=== PATIENT | female | born 1965 | race Caucasian/White ===

== ENCOUNTER 2017-06-03 17:30 | Outpatient (RCR) | payer MEDICARE, SELFPAY ==
--- NOTE | 2017-05-01 14:53 | HP.PTEVAL ---
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 Date of Evaluation: 04/30/17 Physical Therapist: Ron Sarmiento - Visit Plan Frequency: 2x /Week Duration: 4 Weeks Plan: Start with TA activation in neutral spine, lossings traction, modalities as needed. Progress to dynamic strengthening as tolerated. - Subjective Subjective: Pt. 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 Pt. 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 Pt. had a disectomy then and ~4-5years ago she was told she needed to have a fusion at the same region, but declined at that time. Pt. reports having gradual increase in symptoms over the past 10 years and has been recieving pain management to help. pt. reports relief with use of narco. She has also been recieving injections and is getting a nerve ablasion in the next 1-2 weeks. Pt. does have radiating pain down her L leg to her foot at times, but mostly she has lumbar/sacral pain and into her gluteals. Increases pain: walking, standing, lifting, bending fwrd. Pt. has slight decrease in symptoms with sitting, and lying in prone (frog positon). Pt. denies changes in B/B. She does get injections with decent reduction in symptoms. Pt. does take medications which does help with reduction in symptoms. Pt. does have increased difficulty sleeping, but is tolerable. No recent MRI taken. Pt. is hopeful to reduce symptoms in order to get back to all recreational activites without issues. - Pain lumbar spine Pain Intensity (Out of 10): 7 Pain Intensity Range: 9 bilateral gluteal ranges Pain Intensity (Out of 10): 7 Pain Intensity Range: 9 - Objective POSTURE: Pt is over wt. Pt. had slight flexed posture in stance. Pt. has equal iliac crest heights. Pt. has reduced lumbar lordosis. PALPATION: PT. has increased pain to palpation of bilateral lumbar erector spinea. pt. has increased pain at bilateral SI joints. Pt. has mild increase NW with palpation of bilateral gluteal regions. NEUROLOGICAL: Pt. has normal sensation to light and sharp touch bilateral LEs. Pt. has 2+ achilles and patellar DTR bilaterally. Pt. is able to rise on heels and toes with out visible weakness, but require balance assistance to complete. ROM: LUMBAR SPINE: flexion mod loss increase NW, ext min/mod loss increase NW, SB R mod loss increase NW, SB L min loss NE, rotation L min loss NE, rotation R min loss NE. Pt. has decreased oerall hip ROM, but no increase in symptoms. MMT: RLE- ankle 5/5 throughout; knee- ext 4+/5, flexion 4/5; hip- flexon 4/5 increase NW, abd 4/5 NE, ext 4/5 increase NW. LLE- ankle 4/5 throughout; knee- ext 4/5 increase NW, flexion 4-/5 NE; hip- flexion 4-/5 increase NW, abd 4-/5 NE, ext 4-/5 NE. Core strength- poor. - Special Tests L/S Slump test left side: Positive L/S Slump test right side: Negative L/S Left Straight Leg Raise: Positive L/S Right Straight Leg Raise: Negative Lumbar Standing: Flexion - Mechanical Response: No effect Lumbar Standing: Flexion - Symptoms During Testing: Increases Lumbar Standing: Flexion - Symptoms After Testing: No worse Lumbar Standing: Extension - Mechanical Response: No effect Lumbar Standing: Extension - Symptoms During Testing: No effect Lumbar Standing: Extension - Symptoms After Testing: No effect Lumbar Standing: Right Side Glides - Mechanical Response: No effect Lumbar Standing: Right Side [place] - Symptoms During Testing: Increases Lumbar Standing: Right Side [place] - Symptoms After Testing: No worse Lumbar Standing: Left Side [place] - Mechanical Response: No effect Lumbar Standing: Left Side [place] - Symptoms During Testing: No effect Lumbar Standing: Left Side [place] - Symptoms After Testing: No effect Lumbar Lying: Flexion - Mechanical Response: No effect Lumbar Lying: Flexion - Symptoms During Testing: Decreases Lumbar Lying: Flexion - Symptoms After Testing: No better Lumbar Lying: Extension - Mechanical Response: No effect Lumbar Lying: Extension - Symptoms During Testing: Increases Lumbar Lying: Extension - Symptoms After Testing: No worse Lumbar Static: Slouched Sit - Mechanical Response: No effect Lumbar Static: Slouched Sit - Symptoms During Testing: Increases Lumbar Static: Slouched Sit - Symptoms After Testing: No worse Lumbar Static: Sitting Erect - Mechanical Response: No effect Lumbar Static: Sitting Erect - Symptoms During Testing: Decreases Lumbar Static: Sitting Erect - Symptoms After Testing: No better Lumbar Static:Lying Prone in Extension - Mechanical Response: No effect Lumbar Static: Lying Prone in Extension - Sx During Testing: Decreases Lumbar Static: Lying Prone in Extension - Sx After Testing: No better - Goals Goal 1:: Pt. to be I with HEP. Goal Time Frame: 4-6 Weeks Goal 2:: Pt. to have increased core strength by 1/2 grade of bilateral LEs and core strength to reduce stress applied to lumbar spine. Goal Time Frame: 4-6 Weeks Goal 3:: Pt. to have decreased pain to 0-2/10 pain with all sitting and sleeping allowing for increased quality of life. Goal Time Frame: 4-6 Weeks Goal 4:: Pt. to ambulate unlimited distances with 0-3/10 pain in lumbar spine and LLE allowing for increased tolerance to all functional mobility. Goal Time Frame: 4-6 Weeks Goal 5:: Pt. to have increased lumbar spine mobility by 25% in all directions without increase in symptoms. Goal Time Frame: 4-6 Weeks - Rehabilitation Potential Physical Therapy Diagnosis: Pt. has signs and symptoms consistent with DDD of lumbar spine with dural signs. Pt. has radiating pain down her LLE to the level of her foot at times. Pt. also reports LLE giving out on her as well. Pt. has increased pain with all stress applied to lumbar spine, reduces with light traction. Pt. would benefit from PT to reduce symptoms ulitmately getting back to light neutral spine core strengthening. Rehabilitation Potential: Fair - Anticipated Interventions Patient/Client Instruction: Educate patient on: Condition, Plan of Care, Risk Factors, Benefits of Fitness Program For the Purpose of:: To improve health and function, To foster healthy habits, To improve decision making, To facilitate caregiver knowledge, To improve self management, To improve tolerance to ADL's Therapeutic Exercise to Include: Strength training, Power training, Body mechanics, Postural training, Flexibilty training, Passive ROM, Active ROM, Dynamic Lumbar Stabilization, Bo Exercises For the Purpose of:: To decrease pain, To increase ROM, To improve nutrient delivery to tissue, To increase oxygenation perfusion, To improve muscle performance and motor function, To improve ability to perform ADL's, To increase tolerance to activity/condition/position, To improve performance and independence with ADL's, To decrease level of supervision to perform tasks, To improve ability of physical actions for home/community/work/leisure IF ES: Yes Cryotherapy (ice pack, ice massage): Yes Thermo therapy (hot pack): Yes Ultrasound (thermal/non thermal): Yes Pelvic traction supine: Yes For the Purpose of:: To decrease pain, To decrease swelling/inflammation, To increase ROM, To improve nutrient delivery to tissue, To increase oxygenation perfusion, To improve muscle performance and motor function, To improve ability to perform ADL's, To improve health of tissue, To decrease soft tissue restriction Thank you for the opportunity to evaluate your patient. For Medicare and Medicare HMO plans, please review the plan of care and approve it. It will need to be FAXED BACK to us at [phone] for Medicare purposes. Please let me know if there are questions or concerns regarding this plan of care. Physician Signature: Date:
--- NOTE | 2017-06-05 17:40 | HP.PTDCSUM_ITS ---
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 Discharge Date: 06/03/17 Please see the following information for a summary of their discharge status. - Subjective Subjective: Pt. reports that she is doing about the same. She has had some relief with ablasion, but not much relief with PT. She has HEP and is compliant. She did report going through a tough time with her family as her fiance and her broke off their 15 year relationship. Pt. reports being maybe 10 % better. - Pain lumbar spine Pain Intensity (Out of 10): 2 bilateral gluteal ranges Pain Intensity (Out of 10): 1 - Overall Improvement % Improvement: 10 - Objective Objective/Function: Pt. tolerated all exercises this date without increase in symptoms. She has progressed to standing exercises with decent tolerance. Pt. to follow up with physician later this week. Pt. seems to have hit a platuea with exercise and pain. Pt. to talk with physician about how to proceed. - Goals Goal 1:: Pt. to be I with HEP. Goal Progress: Goal Met Goal 2:: Pt. to have increased core strength by 1/2 grade of bilateral LEs and core strength to reduce stress applied to lumbar spine. Goal Progress: Progressing Goal 3:: Pt. to have decreased pain to 0-2/10 pain with all sitting and sleeping allowing for increased quality of life. Goal Progress: Not Progressing Goal 4:: Pt. to ambulate unlimited distances with 0-3/10 pain in lumbar spine and LLE allowing for increased tolerance to all functional mobility. Goal Progress: Progressing Goal 5:: Pt. to have increased lumbar spine mobility by 25% in all directions without increase in symptoms. Goal Progress: Not Progressing - Plan Plan: Pt. to be DC back to physician at this point in time. - D/C Information Discharge Comments: Pt. has made small gains with core and his strength. She continues to have increased difficulty with walking and standing, but has decreased burning in her legs. Pt. does continue to report R hip pain, but has improved since ablasion. She reports minimal change with PT at this point in time. She is independent with core strengthening exercises. She will be DC back to physician at this point in time. If there are questions or concerns regarding this patient's physical therapy, please feel free to call me at [phone]. Thank you for the referral of this patient. Sincerely, Ron Sarmiento
== END 2017-06-03 19:00 | disposition home or self-care (01) ==
LOC: PT 17:30
PROVIDERS: Family Provider Internal Medicine; PCP Internal Medicine; Visit Provider Nurse Practitioner Family
DX: M43.16 Spondylolisthesis, lumbar region (principal); M51.36 Other intervertebral disc degeneration, lumbar region
CPT/HCPCS: 97012; 97110; 97162; 97530; G8978; G8979

== ENCOUNTER 2017-10-17 14:28 | Emergency (ER) | payer MEDICARE, SELFPAY ==
[2017-10-17 14:30] VITALS: BP 132/80; PULSE 85; RESP 22; TEMP 36.8; O2SAT 98; BMI 41.1
--- NOTE | 2017-10-17 15:13 | ED.VISSUMM ---
- ER Visit Summary Date of Service: 10/17/17 Chief Complaint: Acute anxiety History of Present Illness: The patient is a 52 F hx of wpr-nniivnj-rwuvqbeve diabetes, chronic back pain and anxiety. Patient states that her anxiety has been building for last 6 months when in May she found out her boyfriend for many years was cheating on her. She denies being homicidal or suicidal. She is accompanied here by her brother. Since last night she has been very anxious, tearful and upset. They went to the counseling center today and then referred her to the ER. She absolutely does not want to be admitted to a psychiatric facility. Both her and her brother deny she is suicidal. She did take an Ativan earlier today. Physical Examination: Middle-aged female no acute distress. She is emotionally upset and tearful. Vital signs are stable on a eyebrow. H EENT exam unremarkable. Neck nontender. Lungs clear to auscultation bilaterally. Heart regular rhythm no murmur. Abdomen soft nontender. She is moving all 4 extremities. Neurovascular intact. No injuries to her extremities. Back nontender. Neurologically she is awake and alert with no focal motor deficits. No signs of toxidrome. No smell of alcohol currently. Test Results: None Emergency Department Course and Treatment: She will be treated with p.o. Geodon. And have crisis discussed with her follow-up plan. At this time I do not feel she is suicidal note I feel that she is a threat to harm herself or other people. Both her and her brother collaborate that and would like her to be able to be discharged home. Brother states he will make a plan some is with her at all times. Treatment Plan: Patient was evaluated by crisis counselor. They are in agreement that she is not acutely suicidal. And are comfortable to discharge with follow-up with a counseling center. Disposition: Discharge Impression: Acute anxiety Depression This note was generated with [employer] dictation software. It may contain incorrect words, spelling, and punctuation that were not noted in review of the chart prior to signing ED Disposition - Plan for ED Patient: Chief Complaint: Anxiety Referrals: Jericho Nieves MD [Primary Care Provider] -
--- NOTE | 2017-10-17 15:17 | ED.DCSUM_ITS ---
- ER Visit Summary Date of Service: 10/17/17 Chief Complaint: Acute anxiety History of Present Illness: The patient is a 52 F hx of ptb-swbuyyl-egszunboa diabetes, chronic back pain and anxiety. Patient states that her anxiety has been building for last 6 months when in May she found out her boyfriend for many years was cheating on her. She denies being homicidal or suicidal. She is accompanied here by her brother. Since last night she has been very anxious , tearful and upset. They went to the counseling center today and then referred her to the ER. She absolutely does not want to be admitted to a psychiatric facility. Both her and her brother deny she is suicidal. She did take an Ativan earlier today. Physical Examination: Middle-aged female no acute distress. She is emotionally upset and tearful. Vital signs are stable on a eyebrow. H EENT exam unremarkable. Neck nontender. Lungs clear to auscultation bilaterally. Heart regular rhythm no murmur. Abdomen soft nontender. She is moving all 4 extremities. Neurovascular intact. No injuries to her extremities. Back nontender. Neurologically she is awake and alert with no focal motor deficits. No signs of toxidrome. No smell of alcohol currently. Test Results: None Emergency Department Course and Treatment: She will be treated with p.o. Geodon. And have crisis discussed with her follow-up plan. At this time I do not feel she is suicidal note I feel that she is a threat to harm herself or other people. Both her and her brother collaborate that and would like her to be able to be discharged home. Brother states he will make a plan some is with her at all times. Treatment Plan: Patient was evaluated by crisis counselor. They are in agreement that she is not acutely suicidal. And are comfortable to discharge with follow-up with a counseling center. Disposition: Discharge Impression: Acute anxiety Depression This note was generated with [employer] dictation software. It may contain incorrect words, spelling, and punctuation that were not noted in review of the chart prior to signing ED Disposition - Plan for ED Patient: Chief Complaint: Anxiety Referrals: Jericho Nieves MD [Primary Care Provider] -
[2017-10-17] MEDS: Ziprasidone IM 20 MG/ML VIAL IM (15:52)
--- NOTE | 2017-10-17 17:41 | ED.RN ---
PT REQUESTED ETA OF COUNSELING CENTER STAFF FOR EVALUATION AND OUTPATIENT PLAN OF CARE. PHYSICIAN AND CRISIS COUNSELOR CONSULTED AND DR. LAST STATED THAT NO MEDICAL TREATMENT WOULD BE REQUIRED. CRISIS COUNSELOR STATES ONCOMING SHIFT WOULD BE IN TO EVALUATE PT. PT INFORMED AND CONVEYED UNDERSTANDING. DENIES FURTHER NEEDS AT THIS TIME.
--- NOTE | 2017-10-17 17:53 | NURSING ---
JIM, CRISIS, HERE FOR PATIENT
--- NOTE | 2017-10-17 19:37 | ED.DEP ---
ED Disposition - Plan for ED Patient: Disposition: Home or Assisted Living Chief Complaint: Anxiety Instructions: ED Panic Attack Prescriptions: Ziprasidone HCl [Geodon] 20 mg PO DAILY #10 cap Referrals: Counseling,Center [GROUP OF PHYSICIANS] - As soon as possible Additional Instructions: Call and follow-up with a counseling center soon as possible. Geodon 20 mg once daily as needed. Return if you are doing worse.
[2017-10-17 19:46] VITALS: BP 106/67; PULSE 64; RESP 18; O2SAT 98
== END 2017-10-17 19:47 | disposition home or self-care (01) ==
PROVIDERS: Emergency Provider Emergency Medicine; Family Provider Internal Medicine; PCP Internal Medicine
DX: F41.9 Anxiety disorder, unspecified (principal); F32.9 Major depressive disorder, single episode, unspecified; E11.9 Type 2 diabetes mellitus without complications; Z72.0 Tobacco use; G89.29 Other chronic pain; M54.9 Dorsalgia, unspecified
CPT/HCPCS: 96372; 99282; J3486

== ENCOUNTER 2017-11-08 17:49 | Emergency (ER) | payer MEDICARE, SELFPAY ==
[2017-11-08 17:51] VITALS: BP 162/84; PULSE 98; RESP 20; TEMP 36.6; O2SAT 98; BMI 40.6
--- NOTE | 2017-11-08 18:40 | RAD_ITS ---
STUDY: X-RAY CHEST REASON FOR EXAM: Female, 52 years old. Shortness breath with cough TECHNIQUE: PA and lateral views of the chest. COMPARISON: 01/12/2016 FINDINGS: The lungs are clear and expanded. There is no demonstrated pleural abnormality. Normal size heart. Normal mediastinum and anjana. Normal visualized pulmonary arteries. Normal visualized aortic arch and descending thoracic aorta. Normal visualized thoracic spine. Normal visualized ribs, clavicles, and shoulders. There is no demonstrated abnormality of the visualized soft tissue structures of the upper abdomen. RAD/Chest PA and Lateral IMPRESSION: Normal x-ray examination of the chest. Electronically Signed: Mika Saunders DO at 20:19 EDT Tel , Service support ,
--- NOTE | 2017-11-08 18:40 | EKG12_ITS ---
Test Reason : SOB Blood Pressure : / mmHG Vent. Rate : 076 BPM Atrial Rate : 076 BPM P-R Int : 158 ms QRS Dur : 076 ms QT Int : 382 ms P-R-T Axes : 040 032 046 degrees QTc Int : 429 ms Normal sinus rhythm Low voltage QRS Inferior infarct , age undetermined Abnormal ECG Confirmed by BROCK CARRANZA, AMIE ([id number]), news copy editor CLIFF BLANCO ([id number]) on 11/11/2017 2:13:47 PM Referred By: SOCORRO Confirmed By:AMIE GUTIÉRREZ MD
[2017-11-08] MEDS: MethylPREDNISolone 125 MG/2 ML Vial IV (18:53)
[2017-11-08 19:06] LABS: Absolute Lymphocyte Count 2.42 X10^3/ul (0.83-4.51); Absolute Neutrophil Count 9.8 X10^3/uL (2.0-7.7); Basophil# 0.03 X10^3/uL; Basophil% 0.2 % (0-1); Eosinophil# 0.23 X10^3/uL; Eosinophils% 1.8 % (0-5); Hematocrit 43.9 % (37-47); Hemoglobin 15.3 g/dl (12.0-15.0); Lymphocyte # 2.42 X10^3/ul (4.0); Lymphocyte % 18.7 % (19-41); Mean Corp Hgb Conc 34.9 g/gl (32-36); Mean Corpuscular Hgb 32.1 pg (27.0-32.0); Mean Corpuscular Volume 92.2 fL (81-99); Monocyte# 0.42 X10^3/uL; Monocyte% 3.2 % (0-10); Neutrophil # 9.82 X10^3/uL (2.7-7.7); Neutrophil % 75.9 % (47-70); Platelet Count 262 K/mm3 (150-450); RBC Distribution Width CV 13.1 % (11.6-14.6); RBC Distribution Width SD 43.8 fl (35.1-43.9); Red Blood Count 4.76 M/mm3 (4.2-5.4); White Blood Count 12.9 K/mm3 (4.4-11.0)
[2017-11-08 19:13] LABS: POSITIVE COUNT NO; POSITIVE DIFFERENTIAL NO; POSITIVE MORPHOLOGY NO
[2017-11-08 19:17] LABS: Anion Gap 9 (5-15); BUN 9 mg/dL (7-18); BUN/Creat Ratio 8.5 RATIO (10-20); Calcium,Total 9.2 mg/dL (8.5-10.1); Chloride 104 mmol/L (98-107); Creatinine, Serum 1.06 mg/dL (0.55-1.02); EST Glomerular Filtration Rate 58 mL/min (>60); Est Glom Filt Rate - Afr Amer 70 mL/min (>60); Estimated Creatinine Clearance 47.38 ml/min; Glucose 144 mg/dL (74-106); Potassium 3.4 mmol/L (3.5-5.1); Sodium Level 139 mmol/L (136-145)
--- NOTE | 2017-11-08 20:18 | ED.RN ---
LAB CALLED ED WITH CRITICAL LAB VALUE, LACTIC OF 2.0, DR QUINTANILLA NOTIFIED
--- NOTE | 2017-11-08 20:29 | ED.DCSUM_ITS ---
- ER Visit Summary Date of Service: 11/08/17 Chief Complaint: Cough History of Present Illness: The patient is a [address] Nieves. She reports she has a cough began a week ago. Is nonproductive. She denies any fever or chills. She has had rhinorrhea and congestion. She reports that she has moderate shortness of breath and has been wheezing. She does not have an inhaler that she uses. Physical Examination: Vitals: Stable. Afebrile. General: Well-nourished and well-developed. Head: Normocephalic atraumatic. Neck: Supple, no lymphadenopathy. No JVD. Nontender. Cardiovascular: Regular rate and rhythm. 2 out of 6 systolic murmur. Respiratory: Mild respiratory distress. Wheezing bilaterally with decreased air movement. Abdominal: Soft, nontender, nondistended, normal bowel sounds. No guarding, rebound, or peritoneal signs. Back: Nontender. Extremities: Nontender, no edema. Skin: Normal color, no rash. Neurologic: Alert and oriented ?3. Cranial nerves II through XII are intact. Normal strength and sensation. Psych: Normal affect. Test Results: EKG is sinus at 76 no acute changes. Troponins negative. Chem-7 marked potassium 3.4, creatinine 1.06, glucose 144. Chem-7 is more for white count 12.9, hemoglobin 15.3, 7 neutrophils 76, lymphocytes of 19. Lactic acid is 2.0. Chest x-ray shows no acute disease. Emergency Department Course and Treatment: Patient was treated with albuterol and Atrovent aerosols. She is given Solu-Medrol IV and is resting comfortably. Treatment Plan: Patient will be discharged with an albuterol MDI, prednisone, and doxycycline. Instructed to follow with her primary care physician in 3-5 days and not improving. Return to the emergency department for any worsening symptoms. Disposition: To home in improved and stable condition. Impression: 1. URI with bronchospasm. 2. Tobacco abuse. This note was generated with [employer] dictation software. It may contain incorrect words, spelling, and punctuation that were not noted in review of the chart prior to signing ED Disposition - Plan for ED Patient: Disposition: Home or Assisted Living Chief Complaint: Shortness of Breath Instructions: ED Upper Resp Infec Abx Tx Prescriptions: Albuterol Inhaler [Ventolin Hfa] 2 puff INHALATION Q4H PRN PRN #1 inhaler PRN Reason: Wheezing Prednisone [Deltasone] 60 mg PO DAILY #15 tablet Doxycycline Monohydrate 100 mg PO BID #20 capsule Referrals: Jericho Nieves MD [Primary Care Provider] - 3-5 Days if not improving
[2017-11-08 20:36] VITALS: PULSE 84; RESP 20; O2SAT 93
[2017-11-08] MEDS: Doxycycline 100 MG CAPSULE PO (20:56)
[2017-11-08 21:00] VITALS: PULSE 78; RESP 19; O2SAT 98
[2017-11-08 22:59] LABS: Reflex Lactate? Y
== END 2017-11-08 21:01 | disposition home or self-care (01) ==
LOC: ED 19:41
PROVIDERS: Emergency Provider Emergency Medicine; Family Provider Internal Medicine; PCP Internal Medicine
DX: J06.9 Acute upper respiratory infection, unspecified (principal); J98.01 Acute bronchospasm; R01.1 Cardiac murmur, unspecified; E11.9 Type 2 diabetes mellitus without complications; G47.33 Obstructive sleep apnea (adult) (pediatric); E78.00 Pure hypercholesterolemia, unspecified; F17.200 Nicotine dependence, unspecified, uncomplicated
CPT/HCPCS: 71046; 80048; 83605; 84484; 85025; 87040; 93005; 96361; 96374; 99284; J7040; A4216

== ENCOUNTER 2018-01-14 08:20 | Inpatient (IN) | payer MEDICARE, SELFPAY ==
[2017-12-30 14:15] VITALS: BP 120/78; PULSE 55; RESP 16; TEMP 36.4; O2SAT 97; BMI 39.2
[2017-12-30 15:12] LABS: Basophil# 0.04 X10^3/uL; Basophil% 0.5 % (0-1); Eosinophil# 0.22 X10^3/uL; Eosinophils% 2.5 % (0-5); Hematocrit 41.6 % (37-47); Hemoglobin 14.2 g/dl (12.0-15.0); Lymphocyte % 33.9 % (19-41); Mean Corp Hgb Conc 34.1 g/gl (32-36); Mean Corpuscular Hgb 31.3 pg (27.0-32.0); Mean Corpuscular Volume 91.6 fL (81-99); Mean Platelet Vol. 9.7 fl (6.2-12.0); Monocyte# 0.55 X10^3/uL; Monocyte% 6.2 % (0-10); Neutrophil # 5.03 X10^3/uL (2.7-7.7); Neutrophil % 56.8 % (47-70); POSITIVE COUNT NO; POSITIVE DIFFERENTIAL NO; POSITIVE MORPHOLOGY NO; Platelet Count 259 K/mm3 (150-450); RBC Distribution Width CV 13.2 % (11.6-14.6); RBC Distribution Width SD 43.9 fl (35.1-43.9); Red Blood Count 4.54 M/mm3 (4.2-5.4); White Blood Count 8.9 K/mm3 (4.4-11.0)
[2017-12-30 15:27] LABS: Anion Gap 8 (5-15); BUN 10 mg/dL (7-18); BUN/Creat Ratio 8.8 RATIO (10-20); Chloride 108 mmol/L (98-107); Creatinine, Serum 1.14 mg/dL (0.55-1.02); EST Glomerular Filtration Rate 53 mL/min (>60); Est Glom Filt Rate - Afr Amer 64 mL/min (>60); Estimated Creatinine Clearance 44.06 ml/min; Glucose 115 mg/dL (74-106); Potassium 3.7 mmol/L (3.5-5.1); Sodium Level 139 mmol/L (136-145)
[2017-12-30 15:33] LABS: Hemoglobin A1c 5.4 % (4.2-6.3)
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
--- NOTE | 2018-01-09 13:26 | CASEMGMT ---
Voicemail left for patient to return call regarding discharge needs after upcoming surgery. Mandy Santana LPN Clinical Support
--- NOTE | 2018-01-10 11:18 | CASEMGMT ---
Spoke to patient regarding discharge needs following upcoming surgery. Patient's plan is to return home after surgery with assistance from sister. Patient has outpatient physical therapy set up at [facility], sister will assist with transportation. Patient already has a walker, she was provided with it at pre-op appt at [facility]. Patient does not have a toilet riser or shower chair at this time. There are 3 steps into patient's home and bedroom and bathroom are on the 1st level of the home. Notified patient that RN-CM will likely see patient after surgery to follow up for any further needs. Mandy Santana LPN Clinical Support
[2018-01-14] VITALS (10 sets, daily range): BP systolic 112–168; BP diastolic 68–86; PULSE 53–71; RESP 16–20; TEMP 36.3–37.1; O2SAT 94–98; BMI 39.2
--- NOTE | 2018-01-14 07:30 | PCM.OPRPT ---
Report of Operation Date of Procedure: 01/14/18 Pre-Operative Diagnosis: Left knee primary osteoarthritis Post-Operative Diagnosis: Left knee primary osteoarthritis Surgery/Procedure Performed:: Left total knee replacement Description of Surgical Findings:: Stable knee with good patella tracking back office medical assistant: Nahid Rush Type of Anesthesia:: General Anesthesiologist: Gen Lowery Special Medications: 2 g Ancef, 1 g TXA at incision, 1 g TXA closure, 10 mg Decadron, joint cocktail (5 mg Duramorph, 30 mL of 0.5% Ropivicaine, 1000 units of epinephrine, 30 mg of Toradol) Specimen's removed: Bony cuts Estimated Blood Loss (mL): 50 Fluids Replaced: 1700 ml crystalloid Description of Procedure: Implants used: 1. [place] size 2 press-fit triathlon cruciate retaining distal femoral component 2. [place] size 2 press-fit tibial baseplate 3. [place] X3 9 mm CS polyethylene 4. Rashard X3 29 mm asymmetric patella Brief history operative indications: 52-year-old M with history of left knee osteoarthritis with radiographic findings with loss of joint space, osteophyte formation and subchondral sclerosis. Failed conservative measures as mentioned in the H&P. Discussion of total knee arthroplasty as well as risk and benefits were discussed the patient including but not limited to blood loss, DVTs, PEs, neurovascular damage, general risk of anesthesia including loss of life, and stiffness or instability were discussed with patient. Patient demonstrated understanding and was able to sign informed consent. Procedure: On the date of procedure patient's left lower extremity was marked in the preoperative area. The patient was then taken back to the operating room where the patient was placed on the table in the supine position. All bony prominences were identified a well-padded. Anesthesia assumed control of the C-spine and airway and remained controlled throughout the remainder of the procedure. A tourniquet was placed on the left upper thigh and the leg was prepped in a sterile fashion. The surgeon then scrubbed at this time .Upon reentering the room left lower extremity was draped in a standard orthopedic fashion. A timeout was then called and everyone agreed upon the side, the site, the procedure to be performed, patient's identity and antibiotics given. Esmarch bandage was used to exsanguinate the extremity and the tourniquet was placed up to 250 mmHg with the knee in flexion. A midline skin incision was made and sharp dissection was taken down through skin subcutaneous tissue and fat. The standard medial parapatellar incision was made and the patella was subluxed laterally. The standard deep MCL release was done and the fat pad was resected. Next our attention was directed to the femur. Navigation pins were placed, navigation was registered. The distal femoral cutting block was pinned into place and 10 mm of distal femur resection was completed. The distal femoral cut was verified with navigation. The knee was then placed in deep flexion in the standard [employer] sizing guide was used to place the femoral component in 3? external rotation based on the posterior condyles. A size 2 4-in-1 cutting block was selected and pinned into place. The anterior cut was then made and checked for notching. The subsequent anterior chamfer cuts, posterior condylar cuts and posterior chamfer cuts were made while ensuring the MCL and LCL were protected. Our attention was then turned to the tibia where the navigation pins were placed, navigation was registered. [employer] tibial cutting guide was used to make the appropriate tibial cut 90 degrees from the mechanical axis. Navigation was then used to verify the cut. A size 2 tibial base plate was selected. the knee was flexed to 90 degrees and the soft tissues and posterior osteophytes were removed from the joint. 40 cc of the periarticular injection was injected into the posterior medial corner of the joint. The appropriate trials were then placed on the femur and tibia. A trial polyethylene was trialed to ensure proper balancing and stability of the knee. Patella tracking, was then verified and corrected appropriately as needed. The appropriate tibial internal rotation was then marked with a bovie. Our attention was then directed to the patella. The patella was everted and a flat resection was made. The lug holes were drilled and the patella trial was placed. Patellar tracking was checked and deemed appropriate. Once we were happy lug holes were drilled for the femur and trial components were removed. the tibia was subluxed and pinned into place and the keel was punched and the canal was reamed. Final components were verified and opened, and cement was mixed in a vacuum. [place] Simplex cement was used. The wound was copiously irrigated with normal saline. When the cement was ready the components were impacted into place starting with the tibia, femur and finally the patella was cemented into place. The trial poly component was placed and the knee was placed in full extension. All excess cement was removed in the process. Once the cement had cured the tracking, alignment and balance were verified and a size 9 mm polyethylene component was placed. Once the final components were placed the wound was copiously irrigated with normal saline solution and the periarticular injection was given. The wound was closed in a layer bansal fashion using #1 vicryl interrupted sutures for the arthrotomy, 2-0 interrupted Vicryl suture for the subcuticular layer and adrianna for final skin closure. A sterile compressive dressing was then placed. The patient was then awakened from anesthesia, transferred to the [facility] and transferred to the PACU for recovery. Post op plan DVT ppx: ASA 81mg, thigh high compression stockings Follow up: in office in 2 weeks for wound check PT: to start POD #0 at hospital, outpatient PT should be arranged. My physician assistant professor surgical technology was a vital part of this case. He was important in appropriate retraction during the case, and protection of soft tissues during bony cuts. His intimate knowledge of the case and my steps aided in safe and expedient completion of the procedure as well as appropriate position of the leg during the case. He was also vital in assisting with closure under my direct supervision. Grafts/Implants Used: Rashard triathlon - Complications None - Admit VTE Documentation VTE Present on Admission: No VTE Mechan Device Prophylaxis: SCD's, Thigh High LEVON Hose VTE Pharm Prophylaxis ordered?: Yes
--- NOTE | 2018-01-14 07:33 | OP.PCM_ITS ---
Report of Operation Date of Procedure: 01/14/18 Pre-Operative Diagnosis: Left knee primary osteoarthritis Post-Operative Diagnosis: Left knee primary osteoarthritis Surgery/Procedure Performed:: Left total knee replacement Description of Surgical Findings:: Stable knee with good patella tracking marketing technology specialist: Nahid Rush Type of Anesthesia:: General Anesthesiologist: Gen Lowery Special Medications: 2 g Ancef, 1 g TXA at incision, 1 g TXA closure, 10 mg Decadron, joint cocktail (5 mg Duramorph, 30 mL of 0.5% Ropivicaine, 1000 units of epinephrine, 30 mg of Toradol) Specimen's removed: Bony cuts Estimated Blood Loss (mL): 50 Fluids Replaced: 1700 ml crystalloid Description of Procedure: Implants used: 1. [place] size 2 press-fit triathlon cruciate retaining distal femoral component 2. [place] size 2 press-fit tibial baseplate 3. [place] X3 9 mm CS polyethylene 4. Rashard X3 29 mm asymmetric patella Brief history operative indications: 52-year-old M with history of left knee osteoarthritis with radiographic findings with loss of joint space, osteophyte formation and subchondral sclerosis. Failed conservative measures as mentioned in the H&P. Discussion of total knee arthroplasty as well as risk and benefits were discussed the patient including but not limited to blood loss, DVTs, PEs, neurovascular damage , general risk of anesthesia including loss of life, and stiffness or instability were discussed with patient. Patient demonstrated understanding and was able to sign informed consent. Procedure: On the date of procedure patient's left lower extremity was marked in the preoperative area. The patient was then taken back to the operating room where the patient was placed on the table in the supine position. All bony prominences were identified a well-padded. Anesthesia assumed control of the C- spine and airway and remained controlled throughout the remainder of the procedure. A tourniquet was placed on the left upper thigh and the leg was prepped in a sterile fashion. The surgeon then scrubbed at this time .Upon reentering the room left lower extremity was draped in a standard orthopedic fashion. A timeout was then called and everyone agreed upon the side, the site, the procedure to be performed, patient's identity and antibiotics given. Esmarch bandage was used to exsanguinate the extremity and the tourniquet was placed up to 250 mmHg with the knee in flexion. A midline skin incision was made and sharp dissection was taken down through skin subcutaneous tissue and fat. The standard medial parapatellar incision was made and the patella was subluxed laterally. The standard deep MCL release was done and the fat pad was resected. Next our attention was directed to the femur. Navigation pins were placed, navigation was registered. The distal femoral cutting block was pinned into place and 10 mm of distal femur resection was completed. The distal femoral cut was verified with navigation. The knee was then placed in deep flexion in the standard [employer] sizing guide was used to place the femoral component in 3? external rotation based on the posterior condyles. A size 2 4-in-1 cutting block was selected and pinned into place. The anterior cut was then made and checked for notching. The subsequent anterior chamfer cuts, posterior condylar cuts and posterior chamfer cuts were made while ensuring the MCL and LCL were protected. Our attention was then turned to the tibia where the navigation pins were placed , navigation was registered. [employer] tibial cutting guide was used to make the appropriate tibial cut 90 degrees from the mechanical axis. Navigation was then used to verify the cut. A size 2 tibial base plate was selected. the knee was flexed to 90 degrees and the soft tissues and posterior osteophytes were removed from the joint. 40 cc of the periarticular injection was injected into the posterior medial corner of the joint. The appropriate trials were then placed on the femur and tibia. A trial polyethylene was trialed to ensure proper balancing and stability of the knee. Patella tracking, was then verified and corrected appropriately as needed. The appropriate tibial internal rotation was then marked with a bovie. Our attention was then directed to the patella. The patella was everted and a flat resection was made. The lug holes were drilled and the patella trial was placed. Patellar tracking was checked and deemed appropriate. Once we were happy lug holes were drilled for the femur and trial components were removed. the tibia was subluxed and pinned into place and the keel was punched and the canal was reamed. Final components were verified and opened, and cement was mixed in a vacuum. [place] Simplex cement was used. The wound was copiously irrigated with normal saline. When the cement was ready the components were impacted into place starting with the tibia, femur and finally the patella was cemented into place. The trial poly component was placed and the knee was placed in full extension. All excess cement was removed in the process. Once the cement had cured the tracking, alignment and balance were verified and a size 9 mm polyethylene component was placed. Once the final components were placed the wound was copiously irrigated with normal saline solution and the periarticular injection was given. The wound was closed in a layer bansal fashion using #1 vicryl interrupted sutures for the arthrotomy, 2-0 interrupted Vicryl suture for the subcuticular layer and adrianna for final skin closure. A sterile compressive dressing was then placed. The patient was then awakened from anesthesia, transferred to the [facility] and transferred to the PACU for recovery. Post op plan DVT ppx: ASA 81mg, thigh high compression stockings Follow up: in office in 2 weeks for wound check PT: to start POD #0 at hospital, outpatient PT should be arranged. My physician junior assistant manager was a vital part of this case. He was important in appropriate retraction during the case, and protection of soft tissues during bony cuts. His intimate knowledge of the case and my steps aided in safe and expedient completion of the procedure as well as appropriate position of the leg during the case. He was also vital in assisting with closure under my direct supervision. Grafts/Implants Used: [place] triathlon - Complications None - Admit VTE Documentation VTE Present on Admission: No VTE Mechan Device Prophylaxis: SCD's, Thigh High LEVON Hose VTE Pharm Prophylaxis ordered?: Yes
[2018-01-14] MEDS: Celecoxib 200 MG Capsule 400 MG PO (09:06)
[2018-01-14] MEDS: Acetaminophen 500 MG Tablet 1000 MG PO (09:06)
[2018-01-14 09:21] LABS: Bedside Glucose 110 mg/dL (70-110)
[2018-01-14] MEDS: Lactated Ringers 1,000 ML 999 ML IV (09:30)
[2018-01-14] MEDS: Scopolamine 1mg/72hr Patch 1 PATCH TD (10:25)
[2018-01-14] MEDS: Cefazolin 2 GM in 0.9% Normal Saline 100 ML IV (11:15)
--- NOTE | 2018-01-14 13:35 | RAD_ITS ---
STUDY: X-RAY - LEFT KNEE REASON FOR EXAM: Female, 52 years old. Total knee replacement. TECHNIQUE: AP and lateral view(s) of the knee. COMPARISON: Comparison is made with prior study dated May 16, 2016. FINDINGS: Normal visualized distal femur. Normal visualized proximal tibia and fibula. Normal proximal tibiofibular articulation. The patient is status post total knee replacement. There is good alignment. Postoperative soft tissue changes. RAD/Knee 1 or 2 Views IMPRESSION: Status post total knee replacement. There is good alignment. Electronically Signed: Duy Hanna MD at 13:56 EDT Tel [phone], Service support ,
[2018-01-14 14:01] LABS: Bedside Glucose 213 mg/dL (70-110)
[2018-01-14] MEDS: HYDROcodone Bitartrate/Apap 5/325 Tablet PO (14:46)
[2018-01-14] MEDS: Fluticasone 0.05% 1 SPRAY NASAL.SRY 2 SPRAY NASAL ×2 (14:50→21:56)
[2018-01-14] MEDS: Escitalopram Oxalate 20 MG Tablet PO (14:51)
[2018-01-14] MEDS: buPROPion (XL) 150 MG TABLET.XL PO (14:52)
--- NOTE | 2018-01-14 15:14 | PCM.CONS.GEN ---
Problem List (1) Osteoarthritis Status: Acute Qualifiers: Osteoarthritis location: knee Osteoarthritis type: primary Laterality: left Qualified Code(s): M17.12 - Unilateral primary osteoarthritis, left knee (2) Anxiety and depression Status: Chronic (3) Obesity (BMI 30-39.9) Status: Chronic (4) JOSE (obstructive sleep apnea) Status: Chronic (5) Psoriasis Status: Chronic (6) Brain tumor Status: Chronic (7) HLD (hyperlipidemia) Status: Acute (8) Diabetes mellitus, type II Status: Chronic Qualifiers: Diabetes mellitus mcfp insulin use: without mcfp use Diabetes mellitus complication status: with unspecified complications Qualified Code(s): E11.8 - Type 2 diabetes mellitus with unspecified complications (9) GERD (gastroesophageal reflux disease) Status: Chronic Qualifiers: Esophagitis presence: esophagitis presence not specified Qualified Code(s): K21.9 - Gastro-esophageal reflux disease without esophagitis Reason for Consult Date of Consultation: 01/14/18 Reason for Consultation: Medical consultation History of Present Illness: The patient is a 52 y/o F w/ PMHx: Tobacco use, ? PAF (s/p ablation), Anxiety and Depression, JOSE, Psoriasis, Unclear Brain Tumor History, Diabetes mellitus type II well controlled (HgbAc 12/30/17 5.4%), Chronic Back Pain, GERD, ongoing L knee pain and debility x 2 years with failed outpatient conservative therapies who presents to the [facility] on 01/14/18 for planned L TKR per Dr. Hoffman. The patient had previous L knee arthroscopy with medial meniscectomy and chondroplasty of the medial patellofemoral compartments but has had ongoing debility and pain despite this intervention 06/2016. There were no noted emily-operative events. Patient notes following transition from bed to chair recently she did have some lightheadedness and a mild headache and is requesting medication for this. Still has some numbness to the left lower extremity but sensation is returning and she is able to move the left foot. Hospitalist service consulted for medical management. Past Medical History Past Medical History (Chronic Problems): Chronic Problems Anxiety and depression (Chronic) Obesity (BMI 30-39.9) (Chronic) JOSE (obstructive sleep apnea) (Chronic) Psoriasis (Chronic) Brain tumor (Chronic) Diabetes mellitus, type II (Chronic) GERD (gastroesophageal reflux disease) (Chronic) Lumbar facet arthropathy (Chronic) Degeneration of intervertebral disc of lumbosacral region (Chronic) Lumbosacral spondylosis (Chronic) Allergies tramadol HCl [From Ultram] Allergy (Verified 01/14/18 08:48) Rash codeine Adverse Reaction (Verified 01/14/18 08:48) Vomiting hydromorphone [From Dilaudid] Adverse Reaction (Verified 01/14/18 08:48) Nausea/Vom/Diarrhea oxycodone HCl [From Percocet] Adverse Reaction (Verified 01/14/18 08:48) Vomiting Home Medications: Ambulatory Orders Medication Instructions Recorded Fluticasone 0.05% [Flonase Nasal 2 spray NASAL BID 02/14/16 [place]] Metformin HCl [Glucophage] 500 mg PO BIDCM 05/16/16 Meloxicam [Mobic] 15 mg PO DAILY 08/30/16 Pravastatin Sodium 20 mg PO QHS 08/30/16 Hydrocodone/Acetaminophen [[place] 1 each PO BID 10/08/16 5-325 Tablet] Escitalopram Oxalate [Lexapro] 20 mg PO DAILY 11/08/17 Ziprasidone HCl [Geodon] 40 mg PO BID 11/08/17 Bupropion HCl [Wellbutrin Sr] 300 mg PO DAILY 12/30/17 Lansoprazole [Prevacid] 30 mg PO DAILY 12/30/17 Zolpidem Tartrate [Ambien] 10 mg PO QHS 12/30/17 Surgical History: - - Discectomy, carpal tunnel release, left arthroscopic knee surgery with medial meniscectomy and chondroplasty of the medial patellofemoral compartments and most recent 01/14/18 L TKR. 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 Denies: Chills, Fever, Weight Change HEENT: Reports: Head Aches. Denies: Sinus Congestion, Sinus Drainage Cardiovascular: Denies: Chest Pain, Palpitations Respiratory: Denies: Cough, Shortness of breath at rest, Sputum production Gastrointestinal: Denies: Abdominal Pain, Nausea, Vomiting Genitourinary: Denies: Dysuria Musculoskeletal: Reports: Joint stiffness, Joint swelling, Joint Tenderness, Leg Pain. Denies: Joint Pain Skin: Denies: Rash, Wounds Neurological: Denies: Numbness, Tingling, Focal weakness Psychiatric: Reports: Anxiety, Depression. Denies: Homicidal Ideations, Suicidal Ideations Hematologic/ Lymphatic: Denies: Easy Bruising, Easy Bleeding Patient Problems: Active and Suspected Problems Osteoarthritis (Acute) HLD (hyperlipidemia) (Acute) Subjective: Seated upright in the bedside chair, notes ongoing mild headache currently and some lightheadedness following transition from bed to chair. Objective: Physical Examination: General: awake, alert, oriented x 3 and cooperative, seated upright in bedside chair, in no apparent distress. Skin: normal color, turgor, no icterus, cyanosis s/p left knee with dressing in place status post left total knee replacement. HEENT: AT/NC, EOMI, PERRLA, early dry MM, no carotid bruits or JVD noted. Lungs: CTA bilaterally, moderate effort, mild decrease BL bases, no rales, ronchi or wheezing. Heart: Regular rate and rhythm; no gallop, rub audible. Abdomen: soft, obese, NTTP, ND, normal BS, no HSM; her habitus makes examination difficult. Extremities: no cyanosis, clubbing, status post left total knee replacement with dressing in place. Neurological: patient awake, alert, oriented x 3; cognitive function intact; pupils equally reactive to light and accomodation; cranial nerves II-XII grossly normal, moving all 4 extremities are limited left lower extremity movement status post left total knee replacement with clock, no focal deficits, strength moderately to severely globally decreased secondary to recent intervention. Psychiatric: affect appears normal, no acute evidence of depressive or anxiety feelings. - Physical Exam Vital Signs Temp Pulse Resp BP Pulse Ox 98.0 F 61 18 132/76 H 96 01/14/18 14:36 01/14/18 14:36 01/14/18 14:36 01/14/18 14:36 01/14/18 14:36 Oxygen Flow Rate (L/min) 2 Oxygen Delivery Method Room Air Weight: 211 lb Body Mass Index (BMI) 39.2 Finger Stick Blood Glucose 213 Intake and Output for Last 24 Hours 01/12/18 01/13/18 01/14/18 23:59 23:59 23:59 Intake Total 1999 Balance 1999 POC Glucose 01/14/18 01/14/18 13:52 09:04 POC Glucose 213 H 110 Assessment/Plan All Active Problems Osteoarthritis (Acute) HLD (hyperlipidemia) (Acute) The patient is a 52 y/o F w/ PMHx: Tobacco use, ? PAF (s/p ablation), Anxiety and Depression, JOSE, Psoriasis, Unclear Brain Tumor History, Diabetes mellitus type II well controlled, Chronic Back Pain, GERD, ongoing L knee pain and debility x 2 years with failed outpatient conservative therapies who presents to the [facility] on 01/14/18 for planned L TKR per Dr. Hoffman. (1) Severe Osteoarthritis, L Knee: Failed conservative therapies and treatments, admitted per Dr. Hoffman for planned L TKR, post-operative pain management, bowel regimen, DVT Prophylaxis, PT/OT/CM per Orthopedic surgery discretion. (2) Diabetes mellitus type II: Well controlled, hold oral home regimen, ADA diet, accu checks w/ ISS. (3) Obesity: Weight loss and lifestyle changes encouraged. (4) Hyperlipidemia: Continue home statin regimen. (5) Anxiety and Depression: Maintain on home Wellbutrin, Lexapro regimen. (6) JOSE: CPAP if able to tolerate. (7) Tobacco Abuse: Encouraged cessation, inpatient consultation per RT, NR if desired. (8) GERD: Famotidine. (9) ? PAF: Noted history of ablation, unclear if PAF. (10) DVT Prophylaxis: SCDs, 81 mg BID per Orthopedic surgery discretion. Code Visit Office Visits / Consults: [id number] IP Consult L3
--- NOTE | 2018-01-14 15:20 | CON.PCM_ITS ---
Problem List (1) Osteoarthritis Status: Acute Qualifiers: Osteoarthritis location: knee Osteoarthritis type: primary Laterality: left Qualified Code(s): M17.12 - Unilateral primary osteoarthritis, left knee (2) Anxiety and depression Status: Chronic (3) Obesity (BMI 30-39.9) Status: Chronic (4) JOSE (obstructive sleep apnea) Status: Chronic (5) Psoriasis Status: Chronic (6) Brain tumor Status: Chronic (7) HLD (hyperlipidemia) Status: Acute (8) Diabetes mellitus, type II Status: Chronic Qualifiers: Diabetes mellitus fpc insulin use: without fpc use Diabetes mellitus complication status: with unspecified complications Qualified Code(s) : E11.8 - Type 2 diabetes mellitus with unspecified complications (9) GERD (gastroesophageal reflux disease) Status: Chronic Qualifiers: Esophagitis presence: esophagitis presence not specified Qualified Code(s) : K21.9 - Gastro-esophageal reflux disease without esophagitis Reason for Consult Date of Consultation: 01/14/18 Reason for Consultation: Medical consultation History of Present Illness: The patient is a 52 y/o F w/ PMHx: Tobacco use, ? PAF (s/p ablation), Anxiety and Depression, JOSE, Psoriasis, Unclear Brain Tumor History, Diabetes mellitus type II well controlled (HgbAc 12/30/17 5.4%), Chronic Back Pain, GERD, ongoing L knee pain and debility x 2 years with failed outpatient conservative therapies who presents to the [facility] on 01/14/18 for planned L TKR per Dr. Hoffman. The patient had previous L knee arthroscopy with medial meniscectomy and chondroplasty of the medial patellofemoral compartments but has had ongoing debility and pain despite this intervention 06/2016. There were no noted emily- operative events. Patient notes following transition from bed to chair recently she did have some lightheadedness and a mild headache and is requesting medication for this. Still has some numbness to the left lower extremity but sensation is returning and she is able to move the left foot. Hospitalist service consulted for medical management. Past Medical History Past Medical History (Chronic Problems): Chronic Problems Anxiety and depression (Chronic) Obesity (BMI 30-39.9) (Chronic) JOSE (obstructive sleep apnea) (Chronic) Psoriasis (Chronic) Brain tumor (Chronic) Diabetes mellitus, type II (Chronic) GERD (gastroesophageal reflux disease) (Chronic) Lumbar facet arthropathy (Chronic) Degeneration of intervertebral disc of lumbosacral region (Chronic) Lumbosacral spondylosis (Chronic) Allergies tramadol HCl [From Ultram] Allergy (Verified 01/14/18 08:48) Rash codeine Adverse Reaction (Verified 01/14/18 08:48) Vomiting hydromorphone [From Dilaudid] Adverse Reaction (Verified 01/14/18 08:48) Nausea/Vom/Diarrhea oxycodone HCl [From Percocet] Adverse Reaction (Verified 01/14/18 08:48) Vomiting Home Medications: Ambulatory Orders Medication Instructions Recorded Fluticasone 0.05% [Flonase Nasal 2 spray NASAL BID 02/14/16 [place]] Metformin HCl [Glucophage] 500 mg PO BIDCM 05/16/16 Meloxicam [Mobic] 15 mg PO DAILY 08/30/16 Pravastatin Sodium 20 mg PO QHS 08/30/16 Hydrocodone/Acetaminophen [[place] 1 each PO BID 10/08/16 5-325 Tablet] Escitalopram Oxalate [Lexapro] 20 mg PO DAILY 11/08/17 Ziprasidone HCl [Geodon] 40 mg PO BID 11/08/17 Bupropion HCl [Wellbutrin Sr] 300 mg PO DAILY 12/30/17 Lansoprazole [Prevacid] 30 mg PO DAILY 12/30/17 Zolpidem Tartrate [Ambien] 10 mg PO QHS 12/30/17 Surgical History: - - Discectomy, carpal tunnel release, left arthroscopic knee surgery with medial meniscectomy and chondroplasty of the medial patellofemoral compartments and most recent 01/14/18 L TKR. Psychiatric History: Anxiety, Depression DOCTOR OF PHARMACY History: No pertinent DOCTOR OF PHARMACY history Lives: Alone Smoking Status: Current every day smoker Tobacco Use: Cigarettes Alcohol: None Drugs: None - *Family History Maternal History Items: No pertinent history Paternal History Items: No pertinent history Review of Systems Constitutional: Reports: Fatigue. Denies: Chills, Fever, Weight Change HEENT: Reports: Head Aches. Denies: Sinus Congestion, Sinus Drainage Cardiovascular: Denies: Chest Pain, Palpitations Respiratory: Denies: Cough, Shortness of breath at rest, Sputum production Gastrointestinal: Denies: Abdominal Pain, Nausea, Vomiting Genitourinary: Denies: Dysuria Musculoskeletal: Reports: Joint stiffness, Joint swelling, Joint Tenderness, Leg Pain. Denies: Joint Pain Skin: Denies: Rash, Wounds Neurological: Denies: Numbness, Tingling, Focal weakness Psychiatric: Reports: Anxiety, Depression. Denies: Homicidal Ideations, Suicidal Ideations Hematologic/ Lymphatic: Denies: Easy Bruising, Easy Bleeding Patient Problems: Active and Suspected Problems Osteoarthritis (Acute) HLD (hyperlipidemia) (Acute) Subjective: Seated upright in the bedside chair, notes ongoing mild headache currently and some lightheadedness following transition from bed to chair. Objective: Physical Examination: General: awake, alert, oriented x 3 and cooperative, seated upright in bedside chair, in no apparent distress. Skin: normal color, turgor, no icterus, cyanosis s/p left knee with dressing in place status post left total knee replacement. HEENT: AT/NC, EOMI, PERRLA, early dry MM, no carotid bruits or JVD noted. Lungs: CTA bilaterally, moderate effort, mild decrease BL bases, no rales, ronchi or wheezing. Heart: Regular rate and rhythm; no gallop, rub audible. Abdomen: soft, obese, NTTP, ND, normal BS, no HSM; her habitus makes examination difficult. Extremities: no cyanosis, clubbing, status post left total knee replacement with dressing in place. Neurological: patient awake, alert, oriented x 3; cognitive function intact; pupils equally reactive to light and accomodation; cranial nerves II-XII grossly normal, moving all 4 extremities are limited left lower extremity movement status post left total knee replacement with clock, no focal deficits, strength moderately to severely globally decreased secondary to recent intervention. Psychiatric: affect appears normal, no acute evidence of depressive or anxiety feelings. - Physical Exam Vital Signs Temp Pulse Resp BP Pulse Ox 98.0 F 61 18 132/76 H 96 01/14/18 14:36 01/14/18 14:36 01/14/18 14:36 01/14/18 14:36 01/14/18 14:36 Oxygen Flow Rate (L/min) 2 Oxygen Delivery Method Room Air Weight: 211 lb Body Mass Index (BMI) 39.2 Finger Stick Blood Glucose 213 Intake and Output for Last 24 Hours 01/12/18 01/13/18 01/14/18 23:59 23:59 23:59 Intake Total 1999 Balance 1999 POC Glucose 01/14/18 01/14/18 13:52 09:04 POC Glucose 213 H 110 Assessment/Plan All Active Problems Osteoarthritis (Acute) HLD (hyperlipidemia) (Acute) The patient is a 52 y/o F w/ PMHx: Tobacco use, ? PAF (s/p ablation), Anxiety and Depression, JOSE, Psoriasis, Unclear Brain Tumor History, Diabetes mellitus type II well controlled, Chronic Back Pain, GERD, ongoing L knee pain and debility x 2 years with failed outpatient conservative therapies who presents to the [facility] on 01/14/18 for planned L TKR per Dr. Hoffman. (1) Severe Osteoarthritis, L Knee: Failed conservative therapies and treatments , admitted per Dr. Hoffman for planned L TKR, post-operative pain management, bowel regimen, DVT Prophylaxis, PT/OT/CM per Orthopedic surgery discretion. (2) Diabetes mellitus type II: Well controlled, hold oral home regimen, ADA diet , accu checks w/ ISS. (3) Obesity: Weight loss and lifestyle changes encouraged. (4) Hyperlipidemia: Continue home statin regimen. (5) Anxiety and Depression: Maintain on home Wellbutrin, Lexapro regimen. (6) JOSE: CPAP if able to tolerate. (7) Tobacco Abuse: Encouraged cessation, inpatient consultation per RT, NR if desired. (8) GERD: Famotidine. (9) ? PAF: Noted history of ablation, unclear if PAF. (10) DVT Prophylaxis: SCDs, 81 mg BID per Orthopedic surgery discretion. Code Visit Office Visits / Consults: [id number] IP Consult L3
[2018-01-14 16:25] LABS: Bedside Glucose 122 mg/dL (70-110)
[2018-01-14] MEDS: Ondansetron 4 MG/2 ML Vial IV (16:28)
[2018-01-14] MEDS: Cefazolin 1 GM/50 ML BAG IV (18:29)
[2018-01-14] MEDS: Meloxicam 7.5 MG Tablet PO (18:30)
[2018-01-14] MEDS: morphine SR 15 MG Tablet PO (21:54)
[2018-01-14] MEDS: Zolpidem Tartrate 5 MG Tablet PO (21:54)
[2018-01-14] MEDS: Pravastatin 20 MG Tablet PO (21:55)
[2018-01-14] MEDS: Senna/Docusate Sodium 1 Tablet 2 TABLET PO (21:55)
[2018-01-14] MEDS: Lactated Ringers 1,000 ML 125 ML IV (21:56)
[2018-01-14 22:01] LABS: Bedside Glucose 123 mg/dL (70-110)
[2018-01-15] MEDS: HYDROcodone Bitartrate/Apap 5/325 Tablet PO ×2 (03:03→08:36)
[2018-01-15] MEDS: Cefazolin 1 GM/50 ML BAG IV (03:03)
[2018-01-15 03:30] VITALS: BP 123/67; PULSE 67; RESP 18; TEMP 36.8; O2SAT 97
[2018-01-15 06:38] LABS: Hematocrit 35.7 % (37-47); Hemoglobin 12.3 g/dl (12.0-15.0); Mean Corp Hgb Conc 34.5 g/gl (32-36); Mean Corpuscular Hgb 32.4 pg (27.0-32.0); Mean Corpuscular Volume 93.9 fL (81-99); Mean Platelet Vol. 9.7 fl (6.2-12.0); Platelet Count 294 K/mm3 (150-450); RBC Distribution Width CV 13.3 % (11.6-14.6); White Blood Count 14.8 K/mm3 (4.4-11.0)
[2018-01-15 06:40] LABS: Scan Indicated on CBC? Y/N NO
[2018-01-15 06:48] LABS: Anion Gap 8 (5-15); BUN 13 mg/dL (7-18); BUN/Creat Ratio 12.6 RATIO (10-20); Calcium,Total 8.3 mg/dL (8.5-10.1); Chloride 104 mmol/L (98-107); Creatinine, Serum 1.03 mg/dL (0.55-1.02); EST Glomerular Filtration Rate 60 mL/min (>60); Est Glom Filt Rate - Afr Amer 72 mL/min (>60); Estimated Creatinine Clearance 48.76 ml/min; Glucose 91 mg/dL (74-106); Potassium 4.6 mmol/L (3.5-5.1); Sodium Level 138 mmol/L (136-145)
--- NOTE | 2018-01-15 06:49 | PN.ORTHO_ITS ---
Patient Problems: Active and Suspected Problems Osteoarthritis (Acute) HLD (hyperlipidemia) (Acute) Subjective: The patient was sitting in bedside chair upon examination. Patient denies any chest pain, shortness of breath, dizziness, lightheadedness, nausea or vomiting , or calf pain. Pain is controlled on medications. No adverse overnight events. Patient does have pain in the left knee mainly when she is up walking. She states the medications are helpful. Patient is wishing to go home today. Objective: Vital signs stable and afebrile. Patient is able to plantarflex and dorsiflex actively. Sensation is intact to light touch to saphenous, sural, superficial and deep peroneal, and tibial distribution. Dressing is with minimal drainage Negative Homans bilaterally, negative signs and symptoms of DVT. - Physical Exam General: Alert, Oriented x3, Cooperative, No apparent distress Vital Signs Temp Pulse Resp BP Pulse Ox 98.2 F 67 18 123/67 H 97 01/15/18 03:30 01/15/18 03:30 01/15/18 03:30 01/15/18 03:30 01/15/18 03:30 Oxygen Flow Rate (L/min) 2 Oxygen Delivery Method Nasal Cannula Weight: 95.708 kg Body Mass Index (BMI) 39.2 Finger Stick Blood Glucose 213 Intake and Output for Last 24 Hours 01/13/18 01/14/18 01/15/18 23:59 23:59 23:59 Intake Total 4404 / 4404 1592 / 1592 Output Total 1300 / 1300 400 / 400 Balance 3104 / 3104 1192 / 1192 Laboratory Tests Past 24 Hrs 01/15/18 01/15/18 06:04 06:04 WBC 14.8 H RBC 3.80 L Hgb 12.3 Hct 35.7 L MCV 93.9 MCH 32.4 H MCHC 34.5 RDW 13.3 RDW Differential 44.0 H Plt Count 294 MPV 9.7 Sodium Pending Potassium Pending Chloride Pending Carbon Dioxide Pending Anion Gap Pending BUN Pending Creatinine Pending Est GFR (MDRD) Af Amer Pending Est GFR (MDRD) Non-Af Pending BUN/Creatinine Ratio Pending Glucose Pending Calcium Pending POC Glucose 01/14/18 01/14/18 01/14/18 21:44 16:17 13:52 POC Glucose 123 H 122 H 213 H 01/14/18 09:04 POC Glucose 110 Medical Necessity - Tobacco Use Smoking Status: Current every day smoker Tobacco Use: Cigarettes Assessment/Plan All Active Problems Osteoarthritis (Acute) HLD (hyperlipidemia) (Acute) 1. S/P left total knee arthroplasty POD #1 2. Continue Pain Medications: MS Contin and [place] 3. DVT Prophylaxis: 81 mg aspirin twice daily 4. PT/OT: Weightbearing as tolerated 5. H & H: 12.3/35.7, asymptomatic 6. Leukocytosis: Currently 14.8, afebrile. Patient did receive Decadron intraoperatively. Patient also has history of type 2 diabetes mellitus. 7. Encouraged Incentive Spirometry 8. Disposition: Orthopedically stable, plan will be for possible discharge this afternoon if pain is well controlled and patient tolerates physical therapy. Prescriptions will be E scribed to [facility]. Patient will follow-up per postop instructions.
[2018-01-15 06:56] LABS: Bedside Glucose 99 mg/dL (70-110)
--- NOTE | 2018-01-15 06:59 | DCINST_ITS ---
Discharge Diet: 1800 Calorie Control Diet Discharge Activity: May Not Drive May shower in (days): 1 - Turned dressing away from water Ice area for (Minutes): 20 - every hour while awake. Weight Bearing Status: Weight bearing as tolerated Elevate: Operative Extremity Additional Activity Instructions:: Wear elastic stockings for 2 weeks after your surgery. Call your doctor if your incision/area has: Continuous Slow Oozing, Sudden Increased Bleeding, Increased Pain/ Swelling, Increased Redness, Foul Smelling Discharge Call your doctor if you observe: Fever of 101 or Higher, Coldness, Increased Pain, Numbness or Tingling, Change in Color, Calf discomfort, Uncontrolled pain Remove Dressing in (days):: 4 - Okay to remove on January 19, 2018 Additional Instructions: Follow [facility] postop instructions Do not take meloxicam 15 mg while taking meloxicam 7.5 mg twice daily with food. Allergies/Adverse Reactions: Allergies tramadol HCl [From Ultram] Allergy (Verified 01/14/18 08:48) Rash codeine Adverse Reaction (Verified 01/14/18 08:48) Vomiting hydromorphone [From Dilaudid] Adverse Reaction (Verified 01/14/18 08:48) Nausea/Vom/Diarrhea oxycodone HCl [From Percocet] Adverse Reaction (Verified 01/14/18 08:48) Vomiting Medications to take at Discharge Fluticasone 0.05% [Flonase Nasal [place]] 2 spray NASAL BID 02/14/16 Metformin HCl [Glucophage] 500 mg PO BIDCM 05/16/16 Pravastatin Sodium 20 mg PO QHS 08/30/16 Escitalopram Oxalate [Lexapro] 20 mg PO DAILY 11/08/17 Ziprasidone HCl [Geodon] 40 mg PO BID 11/08/17 Bupropion HCl [Wellbutrin Sr] 300 mg PO DAILY 12/30/17 Lansoprazole [Prevacid] 30 mg PO DAILY 12/30/17 Zolpidem Tartrate [Ambien] 10 mg PO QHS 12/30/17 Aspirin E.C. [Ecotrin] 81 mg PO BIDCM #60 tab 01/15/18 Hydrocodone Bitart/Apap 5-325 [[place] 5/325] 1 - 2 tablet PO Q6H PRN PRN 7 Days # 56 tablet 01/15/18 Meloxicam [Mobic] 7.5 mg PO BIDCM #60 tab 01/15/18 Senna/Docusate Sodium [Senokot-S] 2 tab PO BID #20 tab 01/15/18 morphine SR tablet [Ms Contin] 15 mg PO BID 4 Days #8 tablet 01/15/18 The following prescriptions were given: Hydrocodone Bitart/Apap 5-325 [[place] 5/325] 1 - 2 tablet PO Q6H PRN PRN 7 Days # 56 tablet PRN Reason: Moderate Pain (4-5/10) Aspirin E.C. [Ecotrin] 81 mg PO BIDCM #60 tab Meloxicam [Mobic] 7.5 mg PO BIDCM #60 tab morphine SR tablet [Ms Contin] 15 mg PO BID 4 Days #8 tablet Senna/Docusate Sodium [Senokot-S] 2 tab PO BID #20 tab Primary Care Physician: Jericho Nieves MD [Primary Care Provider] - Test Results: Test results from this visit will be discussed in further detail at your follow- up appointment, if applicable. Please Follow Up With: [facility] When: 01/20/18 @ 3:00 pm with Lili Please Follow Up With: Nahid Rush PA-C When: 01/27/18 @ 3:00 pm
[2018-01-15] MEDS: Aspirin E.C. 81 MG Tablet PO (07:45)
[2018-01-15] MEDS: Meloxicam 7.5 MG Tablet PO (07:46)
[2018-01-15 07:54] VITALS: BP 116/68; PULSE 55; RESP 18; TEMP 36.6; O2SAT 98
[2018-01-15] MEDS: Pantoprazole Sodium 40 MG Tablet PO (10:36)
[2018-01-15] MEDS: Famotidine 20 MG Tablet PO (10:36)
[2018-01-15] MEDS: Fluticasone 0.05% 1 SPRAY NASAL.SRY 2 SPRAY NASAL (10:36)
[2018-01-15] MEDS: Escitalopram Oxalate 20 MG Tablet PO (10:36)
[2018-01-15] MEDS: buPROPion (XL) 150 MG TABLET.XL PO (10:37)
[2018-01-15] MEDS: morphine SR 15 MG Tablet PO (10:40)
--- NOTE | 2018-01-15 10:40 | CASEMGMT ---
KWADWO BARROSO Face to Face with patient for initial transition planning/care coordination assessment. RN CHIO introduced self and role at [facility]. Patient sitting in chair, alert and oriented. Patient willing to participate in assessment and is able to answer all questions appropriately. Care providers, pharmacy, and demographics verified. Patient lives alone in home with first floor setup. Patient's sister will be staying with patient and providing transportation. Patient states she has a walker and denies need for additional DME. Patient wishes to discharge home and is setup with [facility] for outpatient therapy. Patient states she has no further needs or concerns at this time. CM to follow for discharge planning needs that may arise. Disposition Plan: Patient to discharge home with outpatient therapy, family support, and follow-up plans in place. Grace DORSEY, RN, CM
[2018-01-15 11:31] LABS: Bedside Glucose 98 mg/dL (70-110)
[2018-01-15 13:34] VITALS: BP 110/50; PULSE 62; RESP 18; TEMP 36.6; O2SAT 97
== END 2018-01-15 13:42 | disposition home or self-care (01) | DRG 470 ==
PROVIDERS: Admitting Provider Specialist; Family Provider Internal Medicine; PCP Internal Medicine; Visit Provider Internal Medicine
PROC: 0SRD0J9 Replacement of Left Knee Joint with Synthetic Substitute, Cemented, Open Approach (ICD-10-PCS; CPT 27447; principal; 2018-01-14 10:30)
DX: M17.12 Unilateral primary osteoarthritis, left knee (principal); E11.9 Type 2 diabetes mellitus without complications; E78.5 Hyperlipidemia, unspecified; G47.33 Obstructive sleep apnea (adult) (pediatric); E66.9 Obesity, unspecified; F41.9 Anxiety disorder, unspecified; F32.9 Major depressive disorder, single episode, unspecified; K21.9 Gastro-esophageal reflux disease without esophagitis; Z79.84 Long term (current) use of oral hypoglycemic drugs; Z68.39 Body mass index [BMI] 39.0-39.9, adult
CPT/HCPCS: 36415; 73560; 80048; 82962; 83036; 85025; 85027; 87081; 93005; 97110; 97162; 97165; 97530; 99251; C1776; J7120; G0463; J2405

== ENCOUNTER 2018-01-24 13:56 | Emergency (ER) | payer MEDICARE, SELFPAY ==
[2018-01-24 13:57] VITALS: BP 125/72; PULSE 89; RESP 28; TEMP 37.1; O2SAT 100; BMI 38.2
--- NOTE | 2018-01-24 14:16 | EKG12_ITS ---
Test Reason : DYSRHYTHMIA Blood Pressure : / mmHG Vent. Rate : 076 BPM Atrial Rate : 076 BPM P-R Int : 160 ms QRS Dur : 084 ms QT Int : 382 ms P-R-T Axes : 057 065 054 degrees QTc Int : 429 ms Normal sinus rhythm Normal ECG When compared with ECG of 30-DEC-2017 13:51, No significant change was found Confirmed by BROCK CARRANZA, AMIE ([id number]), loan expeditor CLIFF BLANCO ([id number]) on 02/04/2018 2:58:15 PM Referred By: BROOKE Confirmed By:AMIE GUTIÉRREZ MD
--- NOTE | 2018-01-24 14:16 | CT_ITS ---
STUDY: CT BRAIN WITHOUT CONTRAST REASON FOR EXAM: Female, 52 years old. Dizziness. Shortness of breath. RADIATION DOSAGE (If Supplied By Facility): CTDIvol = ( 44.99 ) mGy, DLP = ( 798.92 ) mGycm TECHNIQUE: Transaxial CT imaging of the brain was performed without administration of intravenous contrast material. Individualized dose optimization techniques were used for this CT. COMPARISON: None. FINDINGS: There is a symmetrical thickening of the scalp overlying the parietal bones. Multiple tiny rounded calcific densities seen in the scalp especially anteriorly. This may represent calcified acne. Normal calvarium. Normal size ventricles and extra-axial spaces for the patient's age. Normal white matter tracts of the cerebral hemispheres. Normal basal ganglia and thalami. Normal brainstem. Small calcified densities in the medial aspect of the right cerebellar hemisphere. There is no intracranial hemorrhage. There are no findings of an acute ischemic infarction. Normal visualized paranasal sinuses. CT/Brain/Head without Contrast IMPRESSION: No acute abnormality is seen. Tiny calcification densities in the soft tissues of the scalp. Tiny calcifications in the medial aspect of the right cerebellar hemisphere. Electronically Signed: Duy Hanna MD at 15:31 EDT Tel [phone], Service support ,
[2018-01-24 14:32] VITALS: BP 119/68; BP 129/82; BP 138/85; PULSE 107; PULSE 81; PULSE 92
[2018-01-24] MEDS: 0.9% Normal Saline 1,000 ML 999 ML IV (14:36)
[2018-01-24 14:44] LABS: Absolute Lymphocyte Count 1.73 X10^3/ul (0.83-4.51); Absolute Neutrophil Count 6.7 X10^3/uL (2.0-7.7); Basophil# 0.02 X10^3/uL; Basophil% 0.2 % (0-1); Eosinophil# 0.09 X10^3/uL; Hematocrit 37.1 % (37-47); Hemoglobin 13.2 g/dl (12.0-15.0); Lymphocyte # 1.73 X10^3/ul (4.0); Lymphocyte % 19.1 % (19-41); Mean Corp Hgb Conc 35.6 g/gl (32-36); Mean Corpuscular Hgb 32.4 pg (27.0-32.0); Mean Corpuscular Volume 90.9 fL (81-99); Monocyte# 0.56 X10^3/uL; Monocyte% 6.2 % (0-10); Neutrophil # 6.66 X10^3/uL (2.7-7.7); Neutrophil % 73.3 % (47-70); Platelet Count 438 K/mm3 (150-450); RBC Distribution Width CV 12.9 % (11.6-14.6); RBC Distribution Width SD 41.9 fl (35.1-43.9); Red Blood Count 4.08 M/mm3 (4.2-5.4); White Blood Count 9.1 K/mm3 (4.4-11.0)
[2018-01-24 14:46] LABS: POSITIVE COUNT NO; POSITIVE DIFFERENTIAL NO; POSITIVE MORPHOLOGY NO
[2018-01-24 15:01] LABS: ALB/GLOB Ratio 0.8 RATIO (0.9-2.4); AST(SGOT) 13 U/L (15-37); Alanine Aminotransfer ALT/SGPT 21 U/L (13-56); Albumin, Serum 3.2 g/dL (3.2-5.0); Alkaline Phosphatase 102 U/L (45-117); Anion Gap 12 (5-15); BUN 14 mg/dL (7-18); BUN/Creat Ratio 12.2 RATIO (10-20); Calcium,Total 9.1 mg/dL (8.5-10.1); Chloride 106 mmol/L (98-107); Creatinine, Serum 1.15 mg/dL (0.55-1.02); EST Glomerular Filtration Rate 53 mL/min (>60); Est Glom Filt Rate - Afr Amer 64 mL/min (>60); Estimated Creatinine Clearance 43.67 ml/min; Globulin 4.1 g/dL (2.2-4.2); Glucose 113 mg/dL (74-106); Potassium 3.5 mmol/L (3.5-5.1); Protein, Total 7.3 g/dL (6.4-8.2); Sodium Level 138 mmol/L (136-145)
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
[2018-01-24 16:12] LABS: Bacteria 0 SEEN /hpf (None Seen); Mucous, Urine 0 SEEN /hpf (<or=2+); Red Blood Cells-Urine 0 SEEN /hpf (0-5); White Blood Cells 0 SEEN /hpf (0-5)
--- NOTE | 2018-01-24 16:16 | ED.VISSUMM ---
- ER Visit Summary Date of Service: 01/24/18 Chief Complaint: Lightheaded History of Present Illness: The patient is a 52 F presenting with lightheadedness. She had left knee surgery on January 14 and has been doing well. She has been seeing pain management because of her chronic back pain. She was at pain management yesterday and was told that her blood pressure was low and her doctor felt that she was dehydrated. She does admit to decreased p.o. intake over the last few days, not on purpose. She has not had any nausea, diarrhea, or vomiting. No abdominal pain. No chest pain or shortness of breath. No ataxia or unsteady gait, just lightheaded. Physical Examination: On examination here her blood pressure is 125/72. Heart rate 89. Mucous membranes are slightly dry. Neck is supple. Heart tones are regular and without murmur. Lungs are clear bilaterally. Her abdomen is soft and nontender. She has no tenderness along the lower extremity venous system, palpable cords, or evidence of DVT. Test Results: CBC and chemistries are normal except for a bicarb of 20. Orthostatic vital signs were positive. Emergency Department Course and Treatment: She was slightly orthostatic positive with an increase of her pulse of nearly 20 blood pressure remained normal. She was given IV fluids. EKG is unremarkable. Her symptoms completely resolved with IV fluids. Chest x-ray is clear and CT brain are negative. She has no symptoms at all on reexamination and is walking without difficulty. She never had any ataxia or vertigo to suggest a posterior circulation/cerebellar stroke. She did have superficial calcifications on her CT but no evidence of acute ischemia. Given her complete resolution of symptoms, I feel that she can safely follow-up as an outpatient. She will return here if worse. Treatment Plan: Continue to hydrate orally Disposition: Home stable Impression: Initial encounter mild dehydration, lightheadedness-resolved This note was generated with [employer] dictation software. It may contain incorrect words, spelling, and punctuation that were not noted in review of the chart prior to signing ED Disposition - Plan for ED Patient: Chief Complaint: Dizziness Instructions: ED Dehydration, ED Hypotension Orthostatic Referrals: Jericho Nieves MD [Primary Care Provider] -
[2018-01-24 16:18] LABS: Color, Urine Straw (Yellow); Glucose, Dipstick Normal (Normal); Ketone-Dipstick Negative (Negative); Leukocyte Esterase-Dipstick 25 /ul (Negative); Nitrite-Dipstick Negative (Negative); Occult Blood-Urine Negative /ul (Negative); Protein-Dipstick Negative (Negative); Urine Bilirubin Dipstick Negative (Negative); Urine Clarity Clear (Clear); Urine Urobilinogen Normal (Normal); Urine pH 6.5 (5.0 - 8.0)
--- NOTE | 2018-01-24 16:19 | ED.DCSUM_ITS ---
- ER Visit Summary Date of Service: 01/24/18 Chief Complaint: Lightheaded History of Present Illness: The patient is a 52 F presenting with lightheadedness. She had left knee surgery on January 14 and has been doing well. She has been seeing pain management because of her chronic back pain. She was at pain management yesterday and was told that her blood pressure was low and her doctor felt that she was dehydrated. She does admit to decreased p.o. intake over the last few days, not on purpose. She has not had any nausea , diarrhea, or vomiting. No abdominal pain. No chest pain or shortness of breath. No ataxia or unsteady gait, just lightheaded. Physical Examination: On examination here her blood pressure is 125/72. Heart rate 89. Mucous membranes are slightly dry. Neck is supple. Heart tones are regular and without murmur. Lungs are clear bilaterally. Her abdomen is soft and nontender. She has no tenderness along the lower extremity venous system, palpable cords, or evidence of DVT. Test Results: CBC and chemistries are normal except for a bicarb of 20. Orthostatic vital signs were positive. Emergency Department Course and Treatment: She was slightly orthostatic positive with an increase of her pulse of nearly 20 blood pressure remained normal. She was given IV fluids. EKG is unremarkable. Her symptoms completely resolved with IV fluids. Chest x-ray is clear and CT brain are negative. She has no symptoms at all on reexamination and is walking without difficulty. She never had any ataxia or vertigo to suggest a posterior circulation/cerebellar stroke. She did have superficial calcifications on her CT but no evidence of acute ischemia. Given her complete resolution of symptoms , I feel that she can safely follow-up as an outpatient. She will return here if worse. Treatment Plan: Continue to hydrate orally Disposition: Home stable Impression: Initial encounter mild dehydration, lightheadedness-resolved This note was generated with [employer] dictation software. It may contain incorrect words, spelling, and punctuation that were not noted in review of the chart prior to signing ED Disposition - Plan for ED Patient: Chief Complaint: Dizziness Instructions: ED Dehydration, ED Hypotension Orthostatic Referrals: Jericho Nivees MD [Primary Care Provider] -
[2018-01-24] MEDS: HYDROcodone Bitartrate/Apap 5/325 Tablet PO (16:25)
[2018-01-24 16:26] VITALS: BP 141/83; PULSE 99; RESP 16; O2SAT 98
[2018-01-24 16:44] LABS: Squamous Epithelial Cells - UA 0-5 SEEN /hpf (5-10)
[2018-01-24 16:47] LABS: Transitional Epithelial - Ur 0-5 SEEN /hpf (0-5)
== END 2018-01-24 16:30 | disposition home or self-care (01) ==
LOC: ED 14:56
PROVIDERS: Emergency Provider Emergency Medicine; Family Provider Internal Medicine; PCP Internal Medicine
DX: E86.0 Dehydration (principal); R42 Dizziness and giddiness; G89.29 Other chronic pain; M54.9 Dorsalgia, unspecified; F41.9 Anxiety disorder, unspecified; R11.0 Nausea; E11.9 Type 2 diabetes mellitus without complications; Z72.0 Tobacco use
CPT/HCPCS: 70450; 71046; 80053; 81001; 85025; 93005; 99285; J7030; A4216

== ENCOUNTER 2018-06-03 19:06 | Emergency (ER) | payer MEDICARE, SELFPAY ==
[2018-06-03 19:08] VITALS: BP 119/76; PULSE 60; RESP 16; TEMP 36.8; O2SAT 98; BMI 40.0
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
[2018-06-03] MEDS: HYDROcodone Bitartrate/Apap 5/325 Tablet PO (20:39)
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
== END 2018-06-03 22:33 | disposition home or self-care (01) ==
LOC: ED 20:13
PROVIDERS: Emergency Provider Emergency Medicine; Family Provider Internal Medicine; PCP Internal Medicine
DX: S13.4XXA Sprain of ligaments of cervical spine, initial encounter (principal); S39.012A Strain of muscle, fascia and tendon of lower back, initial encounter; V43.52XA Car driver injured in collision with other type car in traffic accident, initial encounter; Y93.9 Activity, unspecified; Y92.410 Unspecified street and highway as the place of occurrence of the external cause; Y99.9 Unspecified external cause status; E78.00 Pure hypercholesterolemia, unspecified; E11.9 Type 2 diabetes mellitus without complications; G89.29 Other chronic pain
CPT/HCPCS: 70450; 72100; 72125; 99284

== ENCOUNTER 2018-06-05 19:56 | Emergency (ER) | payer MEDICARE, SELFPAY ==
[2018-06-05 19:57] VITALS: BP 121/64; PULSE 55; RESP 18; TEMP 36.7; O2SAT 98; BMI 40.1
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
[2018-06-05] MEDS: HYDROcodone Bitartrate/Apap 5/325 Tablet PO (20:38)
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
[2018-06-05 22:18] VITALS: BP 125/68; PULSE 50; RESP 17; O2SAT 99
== END 2018-06-05 22:20 | disposition home or self-care (01) ==
LOC: ED 21:19
PROVIDERS: Emergency Provider Emergency Medicine; Family Provider Internal Medicine; PCP Internal Medicine
DX: R07.89 Other chest pain (principal); S16.1XXD Strain of muscle, fascia and tendon at neck level, subsequent encounter; V89.2XXD Person injured in unspecified motor-vehicle accident, traffic, subsequent encounter; G89.29 Other chronic pain; Z72.0 Tobacco use
CPT/HCPCS: 70496; 70498; 71111; 99284; J7030; Q9967; A4216

== ENCOUNTER 2018-06-14 12:09 | Emergency (ER) | payer MEDICARE, SELFPAY ==
[2018-06-14 12:10] VITALS: BP 164/91; PULSE 57; RESP 20; TEMP 36.3; O2SAT 100; BMI 40.4
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
[2018-06-14 13:03] VITALS: BP 143/70; PULSE 49; RESP 14; O2SAT 100
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
[2018-06-14] MEDS: HYDROcodone Bitartrate/Apap 5/325 Tablet PO (13:10)
[2018-06-14] MEDS: Meclizine HCl 25 MG Tablet PO (13:10)
--- NOTE | 2018-06-14 14:26 | ED.DEP ---
ED Disposition - Plan for ED Patient: Disposition: Home or Assisted Living Instructions: ED Prevention Fall, ED Concussion Prescriptions: Meclizine HCl [Antivert] 25 mg PO 4X/DAY PRN PRN #15 tab PRN Reason: Vertigo Referrals: Jericho Nieves MD [Primary Care Provider] - 3-5 Days if not improving Additional Instructions: You may try meclizine for dizziness and imbalance. Use [id number] pain medication for pain until you are able to follow-up with your pain management doctor. If you have any worsening of your condition or any new concerning symptoms, please return immediately to the emergency department for another evaluation.
[2018-06-14 14:39] VITALS: BP 153/66; PULSE 49; RESP 17; O2SAT 100
== END 2018-06-14 14:40 | disposition home or self-care (01) ==
PROVIDERS: Emergency Provider Emergency Medicine; Family Provider Internal Medicine; PCP Internal Medicine
DX: F07.81 Postconcussional syndrome (principal); I62.9 Nontraumatic intracranial hemorrhage, unspecified; E11.9 Type 2 diabetes mellitus without complications; I10 Essential (primary) hypertension; E78.00 Pure hypercholesterolemia, unspecified; Z72.0 Tobacco use; H66.90 Otitis media, unspecified, unspecified ear; G89.29 Other chronic pain; M54.9 Dorsalgia, unspecified; W17.89XA Other fall from one level to another, initial encounter; Y93.9 Activity, unspecified; Y92.008 Other place in unspecified non-institutional (private) residence as the place of occurrence of the external cause; Y99.9 Unspecified external cause status
CPT/HCPCS: 70450; 72125; 99283

== ENCOUNTER → 2018-10-27 13:29 | Outpatient (CLI) | payer MEDICARE, SELFPAY ==
[2018-10-27 16:16] LABS: Anion Gap 9 (5-15); BUN 21 mg/dL (7-18); BUN/Creat Ratio 18.9 RATIO (10-20); Calcium,Total 9.1 mg/dL (8.5-10.1); Chloride 108 mmol/L (98-107); Creatinine, Serum 1.11 mg/dL (0.55-1.02); EST Glomerular Filtration Rate 55 mL/min (>60); Est Glom Filt Rate - Afr Amer 66 mL/min (>60); Glucose 92 mg/dL (74-106); Potassium 4.1 mmol/L (3.5-5.1); Sodium Level 141 mmol/L (136-145)
== END ==
PROVIDERS: Family Provider Internal Medicine; PCP Internal Medicine
DX: Z79.899 Other long term (current) drug therapy (principal)
CPT/HCPCS: 36415; 80048; 80178; 84443

== ENCOUNTER → 2018-11-04 13:28 | Outpatient (CLI) | payer MEDICARE, SELFPAY ==
[2018-11-04 14:37] LABS: Anion Gap 6 (5-15); BUN 12 mg/dL (7-18); BUN/Creat Ratio 9.8 RATIO (10-20); Calcium,Total 8.5 mg/dL (8.5-10.1); Chloride 109 mmol/L (98-107); Creatinine, Serum 1.23 mg/dL (0.55-1.02); EST Glomerular Filtration Rate 49 mL/min (>60); Est Glom Filt Rate - Afr Amer 59 mL/min (>60); Free T3 2.1 pg/mL (2.18-3.98); Glucose 160 mg/dL (74-106); Potassium 3.6 mmol/L (3.5-5.1); Sodium Level 141 mmol/L (136-145); T4 Free Direct 1.12 ng/dL (0.76-1.46); Thyroid Stim Hormone (TSH) 3.29 uIU/mL (0.358-3.74)
== END ==
PROVIDERS: Family Provider Internal Medicine; PCP Internal Medicine; Referring Provider Nurse Practitioner Family; Visit Provider Nurse Practitioner Family
DX: Z79.899 Other long term (current) drug therapy (principal); F19.10 Other psychoactive substance abuse, uncomplicated; R53.83 Other fatigue
CPT/HCPCS: 36415; 80048; 80178; 84439; 84443; 84481

== ENCOUNTER 2019-04-23 16:02 | Emergency (ER) | payer MEDICARE, SELFPAY ==
[2019-04-23 16:02] VITALS: BP 140/78; PULSE 73; RESP 18; TEMP 36.8; BMI 50.1
--- NOTE | 2019-04-23 16:15 | RAD_ITS ---
STUDY: X-RAY - PELVIS AND LEFT HIP REASON FOR EXAM: Female, 54 years old. Left hip pain TECHNIQUE: 3 views of the pelvis and hip. COMPARISON: None. FINDINGS: There is a non-specific bowel gas pattern. Normal visualized soft tissue structures. 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 Normal bilateral iliac wings, sacroiliac joints and visualized sacrum. Normal bilateral superior and inferior pubic rami. Normal pubic symphysis. Normal bilateral ischial tuberosities. Normal visualized femoral head. There is a small 8 mm sclerotic lesion of the proximal left femur diaphysis. No periosteal reaction or fracture. Normal acetabulum. Normal hip joint. RAD/HIP, UNI W/ Pelvis 2-3 Views IMPRESSION: 1. No fracture or malalignment. 2. 8 mm proximal left femoral diaphyseal sclerotic lesion, nonspecific but statistically most likely represents a bone island. Electronically Signed: Edy Lorenzo MD (Brooks) at 16:32 EST , Service support ,
--- NOTE | 2019-04-23 16:17 | ED.DCSUM_ITS ---
- ER Visit Summary Date of Service: 04/23/19 Chief Complaint: [Left hip pain] History of Present Illness: The patient is a 54 F [presents the emergency department with complaint of pain in her left hip that she is had for about 3 weeks. Patient denies any trauma. She is not had pain in this hip like this before. Patient states the pain is somewhat mild at rest but really more severe with standing and trying to bear weight. She has not seen anybody for this. She denies any fevers. Patient has history of chronic back pain and is in pain management with Dr. Mosley. Patient did take a [place] today that she normally takes for her back 2 times a day and seemed to help the discomfort a little bit. She denies any weakness in extremity. She denies change in bowel bladder function. Patient denies any numbness or tingling or saddle anesthesia. Patient has had prior back surgery with discectomy at L5-S1.] Physical Examination: [HEENT-PERRLA, EOMI. Cranial nerves II through XII grossly intact. TMs clear. Mucous membranes moist. No adenopathy. Cardiovascular-regular rate and rhythm without murmur or ectopy Lungs-clear to auscultation, chest wall stable without crepitus or subcu emphysema Abdomen-normoactive bowel sounds, soft, nontender, no rebound or rigidity, no peritoneal signs. Back exam-patient has some mild diffuse tenderness to the lumbar paraspinal musculature bilaterally as well as the lumbar spine. There is no erythema or warmth noted. Patient has a healed surgical wound to the lower lumbar spine. She has negative straight leg raises. Deep tendon reflexes are plus 2 out of 4 bilaterally at the patella and Achilles. Patient has normal 5 extension. Patient has normal sensation to light touch. Extremities-intact ?4, normal range of motion, normal pulses, atraumatic. Left hip-patient has diffuse tenderness palpation over the left hip that seems to reproduce her pain. There is no erythema or warmth noted. Patient does have some mild discomfort with range of motion. Neurovascular intact distally. No rashes noted.] Test Results: [X-rays of the left hip obtained showed no evidence of fracture dislocation. Patient had a small sclerotic lesion on the left femur that most likely represented a bone island.] Emergency Department Course and Treatment: Patient did not request anything for pain in the department. [] Treatment Plan: We will follow-up with orthopedics. She has crutches at home. Patient is now anything for pain as she is in pain management. [Etiology of her pain is unclear although we discussed possible soft tissue etiology such as bursitis or tendinitis. I cannot rule out a sciatica etiology.] Disposition: [Discharged home in stable condition.] Impression: [Left hip pain-etiology uncertain] This note was generated with Advantagene dictation software. It may contain incorrect words, spelling, and punctuation that were not noted in review of the chart prior to signing ED Disposition - Plan for ED Patient: Referrals: Jericho Nieves MD [Primary Care Provider] -
--- NOTE | 2019-04-23 16:47 | ED.DEP ---
ED Disposition - Plan for ED Patient: Instructions: Hip Strain Referrals: Jericho Nieves MD [Primary Care Provider] - Kevin Hoffman MD [STAFF PHYSICIAN] - 5-7 Days
== END 2019-04-23 16:55 | disposition home or self-care (01) ==
LOC: ED 16:20
PROVIDERS: Emergency Provider Emergency Medicine; Family Provider Internal Medicine; PCP Internal Medicine
DX: M25.552 Pain in left hip (principal); E11.9 Type 2 diabetes mellitus without complications; E78.00 Pure hypercholesterolemia, unspecified; M19.90 Unspecified osteoarthritis, unspecified site; F32.9 Major depressive disorder, single episode, unspecified; F41.9 Anxiety disorder, unspecified; Z72.0 Tobacco use; Z79.1 Long term (current) use of non-steroidal anti-inflammatories (NSAID); Z79.84 Long term (current) use of oral hypoglycemic drugs; Z79.899 Other long term (current) drug therapy
CPT/HCPCS: 73502; 99282

== ENCOUNTER 2019-05-05 14:02 | Outpatient (RCR) | payer MEDICARE, SELFPAY ==
--- NOTE | 2019-05-05 15:19 | HP.PTEVAL_ITS ---
Patient's Visit Information JUAN EAGLE is a 54 year old F referred to Physical Therapy by Kevin Hoffman MD with a diagnosis of L hip sprain. Date of Evaluation: 05/05/19 Physical Therapist: Jw Horton PT, ATC - Visit Plan Frequency: 2-3x /Week Duration: 4-6 Weeks Plan: Aquatic therapy consisting of L hip strengthening, Stretching (IT Band and piriformis), core strengthening, and HEP - Subjective Findings: Pt reports her L hip has been sore for 2-3 weeks. Pt notes her pain had an insudious onset in nature. Pt reports she just woke up one morning and her hip was killing her. Pt notes her pain is located on the lateral aspect of her L hip. Pt notes she does sleep on that hip most of the time. No tinglin or numbness in L LE at this time. Pt reports sleep difficulty secondary to pain. Pt notes increased pain with prolonged standing and walking, as well as when she rolls over on it in the middle of the night. Nothing helps to eliminate the pain. Pt reports she is disabled at this time secondary to LBP and surgeries to that region. 7/10 pain at rest, 10/10 at worst. Pt has had xrays which revealed no sig findings. - Pain L hip Pain Intensity (Out of 10): 7 Pain Intensity Range: 10 - Objective Neuro: B LE sensation is WNL to light touch. Palpation: Pt is very sore on greater trochanter of L hip. ROM: B LE's are WNL. MMT: L hip is grossly 4+/5 throughout. R hip 5/5 throughout. Gait: Pt ambulates with slow cadance and is weak with - Goals Goal 1:: Decrease L hip pain x 50% to aid with sleep Goal Time Frame: 4-6 Weeks Goal 2:: Inc rease L LE flexibility x 1 grade to aid with decreasing pain. Goal Time Frame: 4-6 Weeks Goal 3:: I with HEP Goal Time Frame: 4-6 Weeks - Rehabilitation Potential Physical Therapy Diagnosis: L hip pain and weakness secondary to L hip greater trochanteeric bursitis Rehabilitation Potential: Good - Anticipated Interventions Patient/Client Instruction: Educate patient on: Condition, Plan of Care For the Purpose of:: To decrease pain, To improve muscle performance and motor function Therapeutic Exercise to Include: Strength training, Endurance training, Flexibilty training, In an aquatic setting, Dynamic Lumbar Stabilization For the Purpose of:: To decrease pain, To increase ROM, To improve muscle performance and motor function Thank you for the opportunity to evaluate your patient. For Medicare and Medicare HMO plans, please review the plan of care and approve it. It will need to be FAXED BACK to us at [phone] for Medicare purposes. For Medicare only, by signing this I certify the plan of care. Please let me know if there are questions or concerns regarding this plan of care. Physician Signature: Date:
--- NOTE | 2019-05-13 08:27 | HP.PT.NRP ---
HP - Discharge Summary (1) - Patient Information JUAN EAGLE was seen in my office for initial evaluation on 05/05/19. The following Plan of Care was established for this patient: Initial Frequency: 2-3x /Week Initial Duration: 4-6 Weeks - Anticipated Interventions Patient/Client Instruction: Educate patient on: Condition, Plan of Care For the Purpose of:: To decrease pain, To improve muscle performance and motor function Therapeutic Exercise to Include: Strength training, Endurance training, Flexibilty training, In an aquatic setting, Dynamic Lumbar Stabilization For the Purpose of:: To decrease pain, To increase ROM, To improve muscle performance and motor function This patient was last seen in our office . Pertinent comments regarding their Physical therapy will appear below: Pt was evaluated one week ago for hip pain and a POC was developed at that time. Pt phoned the clinic today to report that her hip is better now and she wanted to cancel all remaining appointments. Pt is discontinued at this time. At this point I will be discontinuing this patient from physical therapy. I would be happy to see this patient again in the future if found appropriate by the physician. Thank you! Jw Horton, PT, ATC
== END 2019-05-05 19:00 | disposition home or self-care (01) ==
LOC: PT 14:02
PROVIDERS: Family Provider Internal Medicine; PCP Internal Medicine; Referring Provider Specialist; Visit Provider Specialist
DX: S73.192D Other sprain of left hip, subsequent encounter (principal)
CPT/HCPCS: 97161

== ENCOUNTER 2019-05-28 16:19 | Emergency (ER) | payer MEDICARE, SELFPAY ==
[2019-05-28 16:20] VITALS: BP 143/126; PULSE 67; RESP 26; TEMP 36.6; O2SAT 98; BMI 48.4
--- NOTE | 2019-05-28 16:43 | EKG12_ITS ---
Test Reason : Blood Pressure : / mmHG Vent. Rate : 056 BPM Atrial Rate : 056 BPM P-R Int : 162 ms QRS Dur : 090 ms QT Int : 420 ms P-R-T Axes : 055 039 049 degrees QTc Int : 405 ms Sinus bradycardia Possible Inferior infarct , age undetermined Abnormal ECG Confirmed by BROCK CARRANZA, AMIE ([id number]), book or script editor DANIELA HARRIS ([id number]) on 05/29/2019 2:27:34 PM Referred By: Jericho Nieves Confirmed By:AMIE GUTIÉRREZ MD
--- NOTE | 2019-05-28 16:43 | CT_ITS ---
STUDY: CT BRAIN WITHOUT CONTRAST REASON FOR EXAM: Female, 54 years old. Trauma RADIATION DOSAGE (If Supplied By Facility): CTDIvol = ( 44.99 ) mGy, DLP = ( 762.36 ) mGycm TECHNIQUE: Transaxial CT imaging of the brain was performed without administration of intravenous contrast material. Individualized dose optimization techniques were used for this CT. COMPARISON: 14 June 2018 FINDINGS: There is no acute intracranial hemorrhage, mass effect, hydrocephalus or herniation. There is a calcified lesion in the right posterior medial cerebellum adjacent to the fourth ventricle which is compatible with stated history of known cerebellar tumor. The skull is intact. Appearance is similar to prior. CT/Brain/Head without Contrast IMPRESSION: 1. No acute findings or change since prior. 2. Known right cerebellar tumor. 3. No acute intracranial trauma. Electronically Signed: Dominic Marcum, at 17:37 EST Tel , Service support ,
--- NOTE | 2019-05-28 16:45 | CT_ITS ---
STUDY: CT CERVICAL SPINE WITHOUT CONTRAST REASON FOR EXAM: Female, 54 years old. Trauma RADIATION DOSAGE (If Supplied By Facility): CTDIvol = ( 33.98 ) mGy, DLP = ( 719.25 ) mGycm TECHNIQUE: High resolution transaxial imaging was performed without contrast material. Sagittal and coronal images were reconstructed. Individualized dose optimization techniques were used for this CT. COMPARISON: 14 June 2018, 03 June 2018 FINDINGS: Examination is mildly/moderately degraded due to obesity. Image slice is elevated. Assessment off canal contents is extremely limited. Osseous assessment is mildly/moderately degraded. Diagnostic information is available. Craniocervical junction and cervical spine are intact and aligned. Mineralization is normal. Paraspinous soft tissues are normal. There are age-related degenerative changes. Spinal canal is patent at all levels. There are bilateral mastoid effusions. There is right external auditory canal cerumen. Appearance is stable since prior. CT/Spine Cervical without Contras IMPRESSION: 1. Unremarkable cervical spine. 2. Bilateral mastoid effusions, incompletely evaluated. Recommend assessment of the nasopharynx to exclude a mucosal lesion that potentially obstructs eustachian tubes. Electronically Signed: Dominic Marcum, at 18:11 EST Tel , Service support ,
[2019-05-28] MEDS: 0.9% Normal Saline 1,000 ML 150 ML IV (16:55)
[2019-05-28 17:06] LABS: Absolute Lymphocyte Count 1.29 X10^3/uL (0.83-4.51); Absolute Neutrophil Count 5.4 X10^3/uL (2.0-7.7); Basophil# 0.05 X10^3/uL; Basophil% 0.7 % (0-1); Eosinophil# 0.15 X10^3/uL; Hematocrit 41.6 % (37-47); Hemoglobin 14.4 g/dL (12.0-15.0); Lymphocyte # 1.29 X10^3/ul (4.0); Lymphocyte % 17.6 % (19-41); Mean Corp Hgb Conc 34.6 g/dL (32-36); Mean Corpuscular Volume 92.4 fL (81-99); Monocyte# 0.45 X10^3/uL; Monocyte% 6.1 % (0-10); NRBC Flagged by Analyzer 0 % (0-5); Neutrophil # 5.37 X10^3/uL (2.7-7.7); Neutrophil % 73.3 % (47-70); Platelet Count 251 K/mm3 (150-450); RBC Distribution Width CV 13.4 % (11.6-14.6); RBC Distribution Width SD 45.4 fl (35.1-43.9); White Blood Count 7.3 K/mm3 (4.4-11.0)
[2019-05-28 17:17] LABS: Anion Gap 6 (5-15); BUN 20 mg/dL (7-18); BUN/Creat Ratio 17.5 RATIO (10-20); Calcium,Total 8.9 mg/dL (8.5-10.1); Chloride 111 mmol/L (98-107); Creatinine, Serum 1.14 mg/dL (0.55-1.02); EST Glomerular Filtration Rate 53 mL/min (>60); Est Glom Filt Rate - Afr Amer 64 mL/min (>60); Estimated Creatinine Clearance 43.07 ml/min; Glucose 101 mg/dL (74-106); Sodium Level 142 mmol/L (136-145)
--- NOTE | 2019-05-28 17:39 | MRI_ITS ---
STUDY: MRI CERVICAL SPINE WITHOUT CONTRAST REASON FOR EXAM: Female, 54 years old. BILATERAL UPPER EXTREMITY NUMBNESS/TINGLING TECHNIQUE: Standardized fat and water weighted pulse sequences were obtained in the sagittal and axial planes. COMPARISON: None FINDINGS: Normal foramen magnum and brainstem-cervical cord junction. Normal craniovertebral junction. There are degenerative changes of the anterior atlantoaxial articulation. Normal odontoid process. There is straightening of the normal cervical lordosis. C2-3: Normal endplates. Disc desiccation and minimal disc space narrowing without bulging or herniation. Normal central canal and intervertebral neural foramina. C3-4: Normal endplates. Normal disc height and morphology. The disc is desiccated. Normal central canal and intervertebral neural foramina. C4-5: Normal endplates. Mild disc space narrowing is present resulting in minimal posterior annular bulging. Normal central canal and intervertebral neural foramina. C5-6: Normal endplates. Mild posterior disc space narrowing is present and associated with a moderate size disc extrusion above and at the level of the disc space measuring 1.23 x 0.98 cm. The extruded disc material compresses the anterior aspect of the cord and contributes to mild to moderate central canal stenosis. Normal intervertebral neural foramina. C6-7: Normal endplates. Normal disc height, signal and morphology. Normal central canal and intervertebral neural foramina. C7-T1: Normal endplates. Normal disc height, signal and morphology. Normal central canal and intervertebral neural foramina. Normal cervical cord. There is no demonstrated cervical cord syrinx cavity. Normal visualized soft tissue structures. A central/left paracentral disc protrusion is present at the T3-T4 level. MRI/Spine Cervical (Routine) IMPRESSION: 1. Moderate size disc extrusion at C5-C6 causing compression on the anterior aspect of the cord and mild to moderate central canal stenosis. 2. A central/left paracentral disc protrusion is present at the T3-T4 level. Electronically Signed: Uche Christensen MD at 20:18 EST , Service support ,
[2019-05-28] MEDS: LORazepam 2 MG/ML Syringe 1 MG IV (18:35)
[2019-05-28 18:38] VITALS: BP 163/7; PULSE 60; RESP 16; O2SAT 98
[2019-05-28 20:00] VITALS: BP 128/65; PULSE 59; RESP 17; O2SAT 99
--- NOTE | 2019-05-28 20:46 | ED.DCSUM_ITS ---
- ER Visit Summary Date of Service: 05/28/19 Chief Complaint: [Paresthesias in arms] History of Present Illness: The patient is a 54 F [presents to the emergency department with numbness and tingling in both arms and pain in her neck. Patient states that she has had some discomfort in her upper back and neck for about a month with pains at times radiating down her right arm. Today she was in the tub and she tried to stand up out of the tub and her right elbow kind of gave out and she fell back into the tub onto her elbows. She is not sure if she hit her head but does not think so. Patient noticed the numbness and tingling in both arms and later noticed weakness in her right arm when she try to open up 1 of her medication bottles and was unable to. Patient states that when she bends her neck down she also feels some discomfort into both legs. 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 Patient has history of high cholesterol, GERD, anxiety, and depression.] Physical Examination: [HEENT-PERRLA, EOMI. Cranial nerves II through XII grossly intact. TMs clear. Mucous membranes moist. No adenopathy. Patient has some mild diffuse C-spine for some palpation. Cardiovascular-regular rate and rhythm without murmur or ectopy Lungs-clear to auscultation, chest wall stable without crepitus or subcu emphysema Abdomen-normoactive bowel sounds, soft, nontender, no rebound or rigidity, no peritoneal signs. Neuro [id number]-bp-nose and heel butcher testing within normal limits, negative Romberg, negative for, fundi benign. 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 Extremities-intact ?4, normal range of motion, normal pulses, atraumatic] Test Results: [EKG obtained arrival shows sinus rhythm with a rate of 56 bpm with no acute ST segment changes. CBC with differential was unremarkable. Chemistries unremarkable. CT of the brain without contrast unremarkable. CT scan of the neck obtained showed no fractures. MRI of the cervical spine showed moderate size disc extrusion at C5-6 causing compression on the anterior aspect of the cord and mild to moderate central canal stenosis. Patient also has central left paracentral disc protrusion at T3-T4 level] Emergency Department Course and Treatment: [Patient was given fentanyl 50 mcg IV. Patient was given a nicotine patch. Case was discussed with [facility] and patient was accepted for transfer to their facility for further evaluation. I am concerned the patient has ongoing paresthesias and complaint of ongoing weakness in the right hand compared to the left. Patient also with flexion of the neck complains of pains into her legs. Given MRI findings and concerned about an anterior cord syndrome and feels she should be evaluated by neurosurgery.] Patient was placed in a cervical collar. 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 It may contain incorrect words, spelling, and punctuation that were not noted in review of the chart prior to signing ED Disposition - Plan for ED Patient: Referrals: Jericho Nieves MD [Primary Care Provider] -
[2019-05-28 21:18] VITALS: BP 169/84; PULSE 61; RESP 18; O2SAT 96
[2019-05-28] MEDS: fentaNYL 100 MCG/2 ML Ampul 50 MCG IV (21:48)
[2019-05-28 22:09] VITALS: BP 143/92; PULSE 72; RESP 16; O2SAT 97
== END 2019-05-28 22:53 | disposition short-term general hospital (02) ==
LOC: ED 17:24
PROVIDERS: Emergency Provider Emergency Medicine; PCP Internal Medicine; Referring Provider Internal Medicine
DX: M50.222 Other cervical disc displacement at C5-C6 level (principal); M48.02 Spinal stenosis, cervical region; E78.00 Pure hypercholesterolemia, unspecified; K21.9 Gastro-esophageal reflux disease without esophagitis; F41.9 Anxiety disorder, unspecified; F32.9 Major depressive disorder, single episode, unspecified; M51.24 Other intervertebral disc displacement, thoracic region
CPT/HCPCS: 70450; 72125; 72141; 80048; 84484; 85025; 93005; 96361; 96374; 96375; 99285; J7030; A4216

== ENCOUNTER 2019-06-24 10:59 | Emergency (ER) | payer MEDICARE, MEDICAID, SELFPAY ==
[2019-06-24 11:03] VITALS: BP 146/89; PULSE 75; RESP 16; TEMP 36.3; O2SAT 98; BMI 49.4
--- NOTE | 2019-06-24 11:16 | ED.DCSUM_ITS ---
History of Present Illness Chief Complaint: Fall Informant: Patient Onset: Yesterday Context: Sudden Onset Timing: Continuous Current Severity: Mild Maximum Severity: Mild Narrative: The patient presents to the emergency department neck pain and upper back pain after a fall. The patient was recently transferred to [facility] on the of last month. She had a large herniated disc with cord compression in her cervical spine. She underwent anterior discectomy with fusion and has been in a collar. States yesterday she tripped and fell. She landed on her hands and knees. She did not strike her head. She states since that time, she is had some tightness in her upper back and around her neck. She denies any increasing weakness, tingling, or paresthesias. She denies any loss of function of her hands. She is not had fever or chills. She states that she did take 2 of her Vicodin which helped control her pain. Prior similar symptoms: Yes Recent Illness/Hospitalization: Yes Past Medical History - Allergies and Home Meds Allergies/Adverse Reactions: Allergies tramadol HCl [From Ultram] Allergy (Verified 06/24/19 11:02) Rash cariprazine [From Vraylar] Adverse Reaction (Verified 06/24/19 11:02) Other codeine Adverse Reaction (Verified 06/24/19 11:02) Vomiting hydromorphone [From Dilaudid] Adverse Reaction (Verified 06/24/19 11:02) Nausea/Vom/Diarrhea oxycodone HCl [From Percocet] Adverse Reaction (Verified 06/24/19 11:02) Vomiting quetiapine [From Seroquel] Adverse Reaction (Verified 06/24/19 11:02) Other Primary Care Physician: Jericho Nieves MD [Primary Care Provider] - Prior records reviewed: Yes Past Medical History: - - Bipolar disorder Surgical History: - - Discectomy, carpal tunnel release, left arthroscopic knee surgery with medial meniscectomy and chondroplasty of the medial patellofemoral compartments and most recent 01/14/18 L TKR. Smoking Status: Current every day smoker Review of Systems General: Denies: Chills, Fever, Sweats Eyes: Denies: Visual changes - bilaterally, Diplopia ENT: Denies: Rhinorrhea, Sore throat Cardiovascular: Denies: Chest pain, Palpitations Respiratory: Denies: Dyspnea, Cough, Dyspnea on exertion Gastrointestinal: Denies: Abdominal pain, Nausea, Vomiting, Diarrhea, Melena, Hematochezia Genitourinary: Denies: Dysuria, Hematuria, Frequency Musculoskeletal: Denies: Back pain, Extremity Pain Skin: Denies: Rash, Wounds Neurological: Denies: Headache, Weakness, Numbness Physical Exam Vital Signs/Narrative: Vital Signs Temp Pulse Resp BP Pulse Ox 06/24/19 11:03 97.4 F L 75 16 146/89 H 98 Inital Vital Signs reviewed: Yes General: Well nourished, Well developed, No Acute Distress Head: Normocephalic, Atraumatic Eyes: Perrl, EOMI ENT: Moist mucous membranes, No rhinorrhea Neck: Supple, Nontender Cardiovascular: Regular rate, Regular rhythm, No murmurs Respiratory: No distress, CTA bilaterally, Chest nontender Abdomen: Soft, Nontender, Nondistended, Normal bowel sounds Back: Nontender, Normal Inspection Extremities: Nontender, No edema Skin: Normal color, No rash Neurological: Alert, Oriented x3, Cranial nerves II-XII grossly intact, Normal Strength, Normal Sensation Psychological: Normal affect, Normal Mood Diagnostic/Tx/Re-eval - Medical Decision Making Clinical Impression(s) from Imaging Studies Cervical Spine CT 06/24/19 11:16 IMPRESSION: No acute findings Electronically Signed: Mika Saunders DO at 12:04 EST Tel , Service support , Patient presents with posterior neck and upper back pain. She has no weakness. She has normal reflexes and pulses. She has equal grasps. She had no direct trauma. However, given her recent surgery I did obtain CT of the cervical spine. This was unremarkable for acute process. Patient was given oral Ativan at her request. She was also given Tylenol. She is feeling improved. At this point, I do feel that she is safe for outpatient follow-up with her neurosurgeon. She was counseled on concerning symptoms and reasons to return. Impression Cervical strain ED Disposition - Plan for ED Patient: Instructions: FALL, Mechanical Referrals: Jericho Nieves MD [Primary Care Provider] -
--- NOTE | 2019-06-24 11:16 | CT_ITS ---
STUDY: CT CERVICAL SPINE WITHOUT CONTRAST REASON FOR EXAM: Female, 54 years old. NECK SURGERY 05/30 FELL YESTERDAY, PAIN SINCE RADIATION DOSAGE (If Supplied By Facility): CTDIvol = ( 24.74 ) mGy, DLP = ( 477.29 ) mGycm TECHNIQUE: High resolution transaxial imaging was performed without contrast material. Sagittal and coronal images were reconstructed. Individualized dose optimization techniques were used for this CT. COMPARISON: None FINDINGS: Normal craniovertebral junction. Normal anterior atlantoaxial articulation. Normal odontoid process. There is straightening of the normal cervical lordosis. No acute fracture or listhesis. Anterior fusion with artificial intervertebral disc spacer noted at C5-6. No evidence of hardware failure or loosening. No critical central canal stenosis. Remaining levels are essentially within normal limits Normal visualized soft tissue structures. CT/Spine Cervical without Contras IMPRESSION: No acute findings Electronically Signed: Mika Saunders DO at 12:04 EST Tel , Service support ,
[2019-06-24] MEDS: LORazepam 1 MG Tablet PO (12:13)
[2019-06-24] MEDS: Acetaminophen 500 MG Tablet 1000 MG PO (12:47)
== END 2019-06-24 12:49 | disposition home or self-care (01) ==
LOC: ED 11:42
PROVIDERS: Emergency Provider Emergency Medicine; PCP Internal Medicine
DX: S16.1XXA Strain of muscle, fascia and tendon at neck level, initial encounter (principal); W01.0XXA Fall on same level from slipping, tripping and stumbling without subsequent striking against object, initial encounter; Y93.9 Activity, unspecified; Y92.9 Unspecified place or not applicable; F31.9 Bipolar disorder, unspecified; M50.20 Other cervical disc displacement, unspecified cervical region; Z98.890 Other specified postprocedural states; Z79.899 Other long term (current) drug therapy; F17.200 Nicotine dependence, unspecified, uncomplicated
CPT/HCPCS: 72125; 99283; J7040; A4216

== ENCOUNTER → 2019-09-22 13:28 | Outpatient (CLI) | payer MEDICARE, MEDICAID, SELFPAY | PROVIDERS: PCP Internal Medicine; Referring Provider Internal Medicine; Visit Provider Internal Medicine | DX: R05 Cough (principal); R06.00 Dyspnea, unspecified | CPT/HCPCS: 87635; G2023; U0004 ==

== ENCOUNTER 2020-06-06 08:21 | Day surgery (SDC) | payer MEDICARE, MEDICAID, SELFPAY ==
[2020-06-03 16:18] LABS: Probe Check PASS; Specimen Processing Control PASS
[2020-06-06 08:39] VITALS: BP 125/72; PULSE 73; RESP 18; TEMP 36.6; O2SAT 98; BMI 50.5
[2020-06-06] MEDS: Lactated Ringers 1,000 ML 100 ML IV (08:56)
--- NOTE | 2020-06-06 09:00 | RAD_ITS ---
PROCEDURE: Caudal block DATE OF EXAMINATION: 06/06/2020 INDICATION: Female, 55 years old. Chronic low back pain FLUOROSCOPY TIME (if supplied): (8.1 seconds) minutes/seconds. A single image was obtained. Intraoperative imaging provided for caudal block. RAD/Fluor Guidance for Spine Inj IMPRESSION: Intraoperative imaging provided for caudal block. Electronically Signed: Duy Hanna MD at 10:33 EST , Service support ,
[2020-06-06] MEDS: Lidocaine 1% (5 ml sdv) 5 ML Vial (09:39)
[2020-06-06] MEDS: Bupivacaine 0.25% 30 ML Vial (09:39)
[2020-06-06] MEDS: 0.9% Normal Saline (Pres. free 10 ML Vial (09:39)
[2020-06-06] MEDS: MethylPREDNISolone Acetate 40 MG/ML Vial IM (09:39)
[2020-06-06 09:48] VITALS: BP 125/72; BP 133/77; PULSE 64; RESP 16; TEMP 36.6; O2SAT 94
[2020-06-06 09:53] VITALS: BP 125/72; BP 145/85; PULSE 62; RESP 16; O2SAT 94
[2020-06-06 09:58] VITALS: BP 125/72; BP 136/82; PULSE 59; RESP 16; O2SAT 95
[2020-06-06 10:03] VITALS: BP 125/72; BP 142/75; PULSE 69; RESP 16; TEMP 36.8; O2SAT 97
[2020-06-06 10:17] VITALS: BP 125/72
--- NOTE | 2020-06-06 10:24 | PCM.OPRPT ---
Report of Operation Date of Procedure: 06/06/20 Description of Surgical Findings:: PREOPERATIVE DIAGNOSIS: Lumbosacral radiculopathy, lumbosacral degenerative disc disease, lumbosacral spinal stenosis POSTOPERATIVE DIAGNOSIS: Lumbosacral radiculopathy, lumbosacral degenerative disc disease, lumbosacral spinal stenosis PROCEDURE PERFORMED: Caudal epidural steroid injection. ANESTHESIA: MAC. BLOOD LOSS: Minimal. COMPLICATIONS: None. DESCRIPTION OF PROCEDURE: History and physical of today was reviewed. Risks and benefits of the procedure were explained. The patient understood and agreed to proceed. Informed consent was obtained. IV inserted per routine protocol. The patient was taken to the operating room and placed in the prone position with a pillow positioned underneath the abdomen. The lower back and tailbone area was prepped and draped in a sterile fashion using iodine x3. Under fluoroscopy guidance on a lateral view, the caudal space was identified. The skin and subcutaneous tissue was anesthetized with approximately 3 mL of 1% lidocaine using a 25-gauge regular needle. Under direct visualization with fluoroscopy, using a 22-gauge 3-1/2-inch spinal needle, the needle was advanced via the skin through the sacral hiatus. The tip of the needle was passed through the sacrococcygeal ligament and advanced to approximately S4 area. After negative aspiration of blood or CSF, a total of 3 mL of contrast was injected to confirm correct placement of the needle as well as cephalad spread. The spread was followed to approximately L5 area. After confirmation on AP as well as lateral view and repeated negative aspiration, a total of 15 mL of preservative-free 0.125% Marcaine with 80 mg of Depo-Medrol was injected easily. The needle was then removed intact. The patient experienced no sign or symptoms of intrathecal or intravascular injection. The patient experienced no paresthesia. The procedure was completed without any apparent difficulty or any complications. The patient appeared to tolerate it well. ASSESSMENT AND PLAN: This is a 55-year-old female with Lumbosacral radiculopathy, lumbosacral degenerative disc disease, lumbosacral spinal stenosis, status post caudal epidural steroid injection patient will continue her current medications, patient will follow in approximately 2 weeks for reevaluation.
== END 2020-06-06 10:18 | disposition home or self-care (01) ==
LOC: SDC 08:22 → AC 08:23
PROVIDERS: PCP Internal Medicine; Referring Provider Anesthesiology Pain Medicine; Visit Provider Anesthesiology Pain Medicine
PROC: 3E0S3BZ Introduction of Anesthetic Agent into Epidural Space, Percutaneous Approach (ICD-10-PCS; CPT 62282; principal; 2020-06-06 10:05)
DX: M48.07 Spinal stenosis, lumbosacral region (principal); M51.17 Intervertebral disc disorders with radiculopathy, lumbosacral region; F17.200 Nicotine dependence, unspecified, uncomplicated; F31.9 Bipolar disorder, unspecified; G47.30 Sleep apnea, unspecified
CPT/HCPCS: 01935; 62323; 64483; 77003; 87635; C9803; J7120; J3490; U0002

== ENCOUNTER 2020-07-18 07:19 | Day surgery (SDC) | payer MEDICARE, MEDICAID, SELFPAY ==
[2020-07-18] MEDS: Lactated Ringers 1,000 ML 100 ML IV (07:35)
[2020-07-18] MEDS: Lidocaine 1% (30 ml sdv) 30 ML Vial (07:38)
[2020-07-18] MEDS: Bupivacaine 0.25% 30 ML Vial (07:38)
[2020-07-18 07:46] VITALS: BP 127/66; PULSE 86; RESP 20; TEMP 36.9; O2SAT 96; BMI 54.0
[2020-07-18 08:05] LABS: Bedside Glucose 164 mg/dL (70-110)
--- NOTE | 2020-07-18 08:10 | RAD_ITS ---
PROCEDURE: Radiofrequency ablation. DATE OF EXAMINATION: 07/18/2020 INDICATION: Female, 55 years old. Chronic back pain. FLUOROSCOPY TIME (if supplied): (26 seconds) minutes/seconds. 7 intraoperative images were obtained. RAD/L/S Spine Min 4 Views IMPRESSION: Intraoperative imaging provided for left L3-S1 radiofrequency ablation. Electronically Signed: Duy Hanna MD at 10:41 EDT , Service support ,
[2020-07-18] MEDS: MethylPREDNISolone Acetate 40 MG/ML Vial IM (08:28)
[2020-07-18 08:50] VITALS: BP 127/66; BP 136/66; PULSE 78; RESP 16; TEMP 36.7; O2SAT 96
[2020-07-18 08:55] VITALS: BP 126/71; BP 127/66; PULSE 80; RESP 16; O2SAT 98
[2020-07-18 09:00] VITALS: BP 127/66; BP 128/74; PULSE 83; RESP 16; O2SAT 98
[2020-07-18 09:05] VITALS: BP 127/66; BP 134/73; PULSE 77; RESP 16; TEMP 36.7; O2SAT 97
[2020-07-18 09:19] VITALS: BP 127/66
--- NOTE | 2020-07-18 12:19 | PCM.OPRPT ---
Report of Operation Date of Procedure: 07/18/20 Description of Surgical Findings:: PREOPERATIVE DIAGNOSIS: Lumbosacral spondylosis, lumbosacral degenerative disc disease, lumbar facet arthropathy POSTOPERATIVE DIAGNOSIS: Lumbosacral spondylosis, lumbosacral degenerative disc disease, lumbar facet arthropathy PROCEDURE PERFORMED: Left-sided radiofrequency lumbar ablation of the medial branch at L3, L4, L5, and S1. ANESTHESIA: MAC. BLOOD LOSS: Minimal. COMPLICATIONS: None. DESCRIPTION OF PROCEDURE: History and physical of today was reviewed. Risks and benefits of the procedure were explained. The patient understood and agreed to proceed. Informed consent was obtained. IV inserted per routine protocol. The patient was taken to the operating room and placed in the prone position with a pillow positioned underneath the abdomen. The left side of her lower back was prepped and draped in a sterile fashion using iodine x3. Under fluoroscopy guidance in an oblique view, the L3 through S1 vertebral bodies were visualized. The skin and subcutaneous tissue was anesthetized with approximately 10 mL of 1% lidocaine using a 25-gauge regular needle. Under direct visualization on fluoroscopy at approximately 25-degree angle, starting on the left L3, ending on the left S1, passing through the L4 and L5, using a 20-gauge 15-cm with a 10-mm curved active-tip radiofrequency ablation needle, the needle was passed through the skin. The tip of the needle was maneuvered and directed towards the superior medial gutter of the transverse process at the vicinity of the medial branch. Once the tip of the needle was in contact with the bone, the needle was pulled approximately 2 mm off the bone. The stylette of each needle was then removed. After negative aspiration of blood or CSF and confirmation on AP, oblique as well as lateral view, the radiofrequency ablation probe was then inserted at each level. Impedance was then recorded at L3 to be 262 ohm, at L4 to be 268 ohm, at L5 to be 228 ohm, and at S1 to be 243 ohm. Motor evoked potential was then initiated to 1.5 volt without any motor response at each corresponding level. The probe was then removed intact and a total of 6 mL of preservative-free 1% lidocaine was injected in divided doses between those four levels after negative aspiration of blood or CSF. The radiofrequency ablation probe was then reinserted. After confirmation on AP, oblique as well as lateral view, radiofrequency ablation was then initiated to 80 degree Celsius for 90 second at each level. Once concluded, the probe was then removed intact. A total of 6 mL of preservative-free 0.25% Marcaine with 40 mg of Depo-Medrol was injected in divided doses between those four levels. The needles were then removed intact. The patient experienced no sign or symptoms of intrathecal or intravascular injection. The patient experienced no paresthesia. The procedure was completed without any apparent difficulty or any complications. The patient appeared to tolerate it well. Sensory as well as motor exam was unchanged from prior to the procedure. ASSESSMENT AND PLAN: This is a 55-year-old female with lumbosacral spondylosis, lumbosacral degenerative disc disease, lumbar facet arthropathy status post left-sided lumbar radiofrequency ablation of the medial branch L3-S1, patient will continue her current medications, patient will follow in approximately 2 weeks for reevaluation.
== END 2020-07-18 09:34 | disposition home or self-care (01) ==
LOC: SDC 07:19 → AC 07:21
PROVIDERS: PCP Internal Medicine; Referring Provider Anesthesiology Pain Medicine; Visit Provider Anesthesiology Pain Medicine
PROC: (CPT 64635; principal; 2020-07-18 08:05)
DX: M47.816 Spondylosis without myelopathy or radiculopathy, lumbar region (principal); M47.817 Spondylosis without myelopathy or radiculopathy, lumbosacral region; M51.37 Other intervertebral disc degeneration, lumbosacral region; G89.29 Other chronic pain; E11.9 Type 2 diabetes mellitus without complications; K21.9 Gastro-esophageal reflux disease without esophagitis; F17.210 Nicotine dependence, cigarettes, uncomplicated; J45.909 Unspecified asthma, uncomplicated; F32.9 Major depressive disorder, single episode, unspecified; F41.9 Anxiety disorder, unspecified; Z79.891 Long term (current) use of opiate analgesic; M79.10 Myalgia, unspecified site
CPT/HCPCS: 01936; 64635; 64636; 72110; 76000; 82962; J7120

== ENCOUNTER → 2020-07-27 10:21 | Outpatient (CLI) | payer MEDICARE, MEDICAID, SELFPAY ==
[2020-07-18 07:46] VITALS: BMI 54.0
--- NOTE | 2020-07-27 10:30 | RAD_ITS ---
STUDY: X-RAY - THORACIC SPINE REASON FOR EXAM: Female, 55 years old. PAIN IN THORACIC SPINE TECHNIQUE: 2 view(s) of the thoracic spine were obtained. COMPARISON: None. FINDINGS: Normal kyphosis of the thoracic spine. There is no substantial scoliosis. There is multilevel endplate spondylosis of the thoracic vertebrae. There is multilevel disc space narrowing of the thoracic spine. Prior fusion of the lower cervical spine. The soft tissue structures are unremarkable. RAD/Thoracic Spine 2 Views IMPRESSION: Multilevel disc space narrowing and spondylosis. Electronically Signed: Duy Hanna MD at 19:21 EDT , Service support ,
== END ==
PROVIDERS: PCP Internal Medicine; Referring Provider Nurse Practitioner Family; Visit Provider Nurse Practitioner Family
DX: M54.6 Pain in thoracic spine (principal)
CPT/HCPCS: 72070

== ENCOUNTER 2020-09-05 09:54 | Day surgery (SDC) | payer MEDICARE, MEDICAID, SELFPAY ==
[2020-09-05] VITALS (10 sets, daily range): BP systolic 105–153; BP diastolic 57–87; PULSE 68–101; RESP 16; TEMP 36.2–36.8; O2SAT 92–100; BMI 22.8
--- NOTE | 2020-09-05 11:30 | RAD_ITS ---
PROCEDURE: Right L3-S1 radiofrequency ablation. DATE OF EXAMINATION: 09/05/2020. INDICATION: Female, 55 years old. Chronic low back pain. FLUOROSCOPY TIME (if supplied): (Left second) minutes/seconds. 10 intraoperative images were obtained. Intraoperative imaging provided for left L3-S1 radiofrequency ablation. RAD/L/S Spine Min 4 Views IMPRESSION: Intraoperative imaging provided for left L3-S1 radiofrequency ablation. Electronically Signed: Duy Hanna MD at 10:27 EDT , Service support ,
[2020-09-05] MEDS: Bupivacaine 0.25% 30 ML Vial (11:44)
[2020-09-05] MEDS: Lidocaine 1% (30 ml sdv) 30 ML Vial (11:45)
[2020-09-05] MEDS: MethylPREDNISolone Acetate 40 MG/ML Vial IM (11:45)
--- NOTE | 2020-09-05 13:52 | PCM.OPRPT ---
Report of Operation Date of Procedure: 09/05/20 Pre-Operative Diagnosis: Lumbosacral spondylosis, lumbosacral degenerative disc disease, lumbar facet arthropathy Post-Operative Diagnosis: Lumbosacral spondylosis, lumbosacral degenerative disc disease, lumbar facet arthropathy Surgery/Procedure Performed:: Right-sided lumbar radiofrequency ablation of the medial branch L3, L4, L5, S1 Type of Anesthesia: MAC Estimated Blood Loss (mL): Minimal Description of Procedure: History and physical today was reviewed. Risks and benefits of procedure explained. The patient understood, agreed to the procedure and informed consent was obtained. IV inserted per routine protocol. The patient was taken to the operating room, placed in the prone position with a pillow positioned underneath the abdomen. The right side of the lower back was prepped and draped in a sterile fashion using iodine x 3. Under fluoroscopy guidance, on an oblique view, the L3 through S1 vertebral bodies were visualized. The skin and subcutaneous tissue was anesthetized with approximately 10 mL of 1% lidocaine using a 25-gauge regular needle. Under direct visualization with fluoroscopy at approximately 25-degree angle, starting on the right L3, ending on the right S1 passing through the L4-L5 using a 20-gauge 15 cm with a 10 mm curved active tip radiofrequency ablation needle the needle passed through the skin. The tip of the needle was maneuvered and directed towards the superior and medial gutter of the transverse process at the vicinity of the medial branch. Once the tip of the needle was in contact with the bone, the needle pulled approximately 2 mm up the bone. The stylet of each needle was then removed. After negative aspiration of blood with CSF and confirmation of AP as well as oblique view, radiofrequency ablation probe was then inserted at each level. Impedance was then recorded at L3 to be 239, at L4 312, at L5 236, at S1 337 ohm. Motor-evoked potential was then initiated to 1.5 volt without any motor response at each corresponding level. The probe was then removed intact and a total of 6 mL preservative-free 1% lidocaine was injected in divided doses between those 4 levels after negative aspiration of blood with CSF. The radiofrequency ablation probe was then reinserted after confirmation of AP, oblique as well as lateral view. Radiofrequency ablation was then initiated to 80 degrees Celsius for 90 seconds at each level. Once concluded, the probe was then removed intact and a total of 6 mL of preservative-free 0.25% Marcaine with 40 mg Depo-Medrol was injected in divided doses between those 4 levels. The needles were then removed intact. The patient experienced no signs or symptoms of intrathecal, intravascular injection. The patient experienced no paraesthesia. The procedure was completed without any apparent difficulty, any complication. The patient appeared to tolerate well. Sensory as well as motor exam was unchanged from prior to procedure. ASSESSMENT AND PLAN: This is a 55-year-old female with lumbosacral spondylosis, lumbosacral degenerative disc disease, lumbar facet arthropathy, status post right-sided radiofrequency ablation of the medial branch L3 through S1. The patient will continue her current medications. The patient will follow up in approximately 2 weeks for reevaluation. Complications None
== END 2020-09-05 13:18 | disposition home or self-care (01) ==
LOC: SDC 09:55 → AC 09:56
PROVIDERS: PCP Internal Medicine; Referring Provider Anesthesiology Pain Medicine; Visit Provider Anesthesiology Pain Medicine
PROC: (CPT 64635; principal; 2020-09-05 11:25)
DX: M47.817 Spondylosis without myelopathy or radiculopathy, lumbosacral region (principal); M51.37 Other intervertebral disc degeneration, lumbosacral region; M51.36 Other intervertebral disc degeneration, lumbar region; G89.29 Other chronic pain; E11.9 Type 2 diabetes mellitus without complications; F32.9 Major depressive disorder, single episode, unspecified; F41.9 Anxiety disorder, unspecified; K21.9 Gastro-esophageal reflux disease without esophagitis; E78.5 Hyperlipidemia, unspecified; F17.210 Nicotine dependence, cigarettes, uncomplicated; Z79.891 Long term (current) use of opiate analgesic
CPT/HCPCS: 01936; 64635; 64636 ×3; 72110; 76000; J7120

== ENCOUNTER 2020-09-29 14:30 | Outpatient (RCR) | payer MEDICARE, MEDICAID, SELFPAY ==
[2020-09-05 10:43] VITALS: BMI 22.8
--- NOTE | 2020-09-08 13:51 | HP.PTEVAL ---
Patient's Visit Information JUAN EAGLE is a 55 year old F referred to Physical Therapy by Dr. Kevin Hoffman MD with a diagnosis of Right Knee OA. Date of Evaluation: 09/08/20 Physical Therapist: Ana Mi DPT - Visit Plan Frequency: 2x /Week Duration: 4 Weeks Plan: Aquatic- focus on LE and core strength/stabilization with focus on functional mobility and prehab for right TKR. HEP Given IE: quad set, heel slide, gastroc stretch, hamstring stretch - Subjective Left TKR [address] Hoffman and now we are taking about getting the right one done. Dr. Hoffman wants to do a partial but she wants to wait until its ready to do a full- and MD wants her to lose weight. The knee has been bothering her for about 6 months and its getting worse. The pain is located along the distal patella and wraps around the medial side of the joint. Describes the pain as achy but can also be sharp. Worst: 9/10 Agg: being up on it, household activities, going in/out of the truck, grocery shopping (uses a cart). Goes to pain [facility] Dr. Mosley for and had her nerve burned on the right this week and a month ago for the left- has this procedure every 6 months. No radiating pain but does bother her in the back of the knee. Sleep: disturbed- belly sleeper with right leg up. Best: 2/10 Eases: pain medication, sitting down, Voltaran Gel. Has had recent x-rays from Dr. Hoffman- no MRI. Work: disable due to her back pain. She is more sedentary during the night- she does her own housework- and stands to do laundry daily. PMHx/Meds: no changes since seeing Dr. Hoffman- scanned in chart. - Objective Posture: FH, RS- can correct but does not maintain. Gait: decreased stance bilateral with toes turned out to the side. Sit to Stand: 25 seconds had to stop due to back pain and knee pain- uses UE A 8. HR/TR: able but does report pain. SLS: weight shift but unable to SLS. Stairs: asc non recip with 2 HR- desc 2 HR recip with poor control. ROM: 30-120 degrees. Strength: Ankle: 5/5, Knee: 4+/5 with pain, Hip: 4-/5, Core: fair minus. Flex: HS: severe, Gastroc: severe. Palpatoin: tender along medial and lateral joint line and into the quad. Special Test: dural signs: positive - Goals Goal 1:: Patient will be I with HEP and progression Goal Time Frame: 4-6 Weeks Goal 2:: Patient will asc/desc 8 steps reciprocally with 1 HR Goal Time Frame: 4-6 Weeks Goal 3:: Patient will report no more than 5/10 pain for 1 week Goal Time Frame: 4-6 Weeks Goal 4:: Patient will demo 5/5 strenght in LE where defici Goal Time Frame: 4-6 Weeks - Rehabilitation Potential Physical Therapy Diagnosis: Patient presents with hypomobility- she has decreased painfree ROM,strength, flex and muscular endurance leading to abnormal gait and increased pain with ADL's. Rehabilitation Potential: Fair - Anticipated Interventions Patient/Client Instruction: Educate patient on: Benefits of Fitness Program Therapeutic Exercise to Include: Strength training, Endurance training, Balance training, Coordination, Agility training, Body mechanics, Postural training, Flexibilty training, Gait and locomotor training, Neuromotor development, In an aquatic setting, Dynamic Lumbar Stabilization, Scapular Strength/Stabilization For the Purpose of:: To improve muscle performance and motor function Thank you for the opportunity to evaluate your patient. For Medicare and Medicare HMO plans, please review the plan of care and approve it. It will need to be FAXED BACK to us at [phone] for Medicare purposes. For Medicare only, by signing this I certify the plan of care. Please let me know if there are questions or concerns regarding this plan of care. Physician Signature: Date:
--- NOTE | 2021-03-06 07:12 | HP.PT.NRP ---
JUAN AMEZQUITAAMY was seen in my office for initial evaluation on 09/08/20. The following Plan of Care was established for this patient: Initial Frequency: 2x /Week Initial Duration: 4 Weeks Patient/Client Instruction: Educate patient on: Benefits of Fitness Program Therapeutic Exercise to Include: Strength training, Endurance training, Balance training, Coordination, Agility training, Body mechanics, Postural training, Flexibilty training, Gait and locomotor training, Neuromotor development, In an aquatic setting, Dynamic Lumbar Stabilization, Scapular Strength/Stabilization For the Purpose of:: To improve muscle performance and motor function This patient was last seen in our office . Pertinent comments regarding their Physical therapy will appear below: Patient has not attended PT in over 4 weeks and is appropriate for discharge- return to MD for further evaluation as needed. At this point I will be discontinuing this patient from physical therapy. I would be happy to see this patient again in the future if found appropriate by the physician. Thank you! Ana Mi, NITZAT Balance/Gait/Functional tests - Balance/Special Test Scores Lower Extremity Functional Score: 22
== END 2020-09-29 19:00 | disposition home or self-care (01) ==
LOC: PT 14:30
PROVIDERS: PCP Internal Medicine; Referring Provider Specialist; Visit Provider Specialist
DX: M17.11 Unilateral primary osteoarthritis, right knee (principal); E66.8 Other obesity
CPT/HCPCS: 97110; 97113; 97161

== ENCOUNTER 2020-10-24 06:55 | Day surgery (SDC) | payer MEDICARE, MEDICAID, SELFPAY ==
[2020-09-05 10:43] VITALS: BMI 22.8
[2020-10-24 07:15] VITALS: BP 135/78; PULSE 73; RESP 16; TEMP 37.2; O2SAT 98; BMI 49.6
[2020-10-24] MEDS: Lactated Ringers 1,000 ML 100 ML IV (07:33)
[2020-10-24 07:40] LABS: Bedside Glucose 143 mg/dL (70-110)
[2020-10-24] MEDS: Bupivacaine 0.25% 30 ML Vial (08:20)
[2020-10-24] MEDS: MethylPREDNISolone Acetate 80 MG/ML Vial (08:20)
--- NOTE | 2020-10-24 08:20 | RAD_ITS ---
STUDY: X-RAY - CERVICAL SPINE REASON FOR EXAM: Female, 55 years old. CERVICAL FACET INJECTION, C4-C7, LEFT TECHNIQUE: view(s) of the cervical spine were obtained. COMPARISON: None FINDINGS: Single frontal study of the neck was obtained. This showed multiple needles at the level of the facets on the right side. There is evidence of anterior fusion between C5-6 level RAD/Cerv Spine 2 or 3 Views IMPRESSION: Normal x-ray examination of the visualized cervical spine. Electronically Signed: Beto Hsu, at 14:49 EDT Tel , Service support ,
[2020-10-24 08:40] VITALS: BP 120/71; BP 135/78; PULSE 69; RESP 16; TEMP 36.7; O2SAT 97
[2020-10-24 08:45] VITALS: BP 116/72; BP 135/78; PULSE 66; RESP 16; O2SAT 97
[2020-10-24 08:50] VITALS: BP 129/79; BP 135/78; PULSE 69; RESP 16; O2SAT 96
[2020-10-24 08:55] VITALS: BP 128/77; BP 135/78; PULSE 65; RESP 16; TEMP 36.2; O2SAT 96
[2020-10-24 09:10] VITALS: BP 135/78
--- NOTE | 2020-10-24 16:18 | OP.PCM_ITS ---
Report of Operation Date of Procedure: 10/24/20 Pre-Operative Diagnosis: Cervical spondylosis, cervical degenerative disc disea se, cervical facet arthropathy Post-Operative Diagnosis: Cervical spondylosis, cervical degenerative disc disease, cervical facet arthropathy Surgery/Procedure Performed:: Left sided cervical facet steroid injection, C4, C5, C6, and C7. Type of Anesthesia: MAC Estimated Blood Loss (mL): Minimal Description of Procedure: DESCRIPTION OF PROCEDURE: History and physical of today was reviewed. Risks and benefits of the procedure were explained. The patient understood and agreed to proceed. Informed consent was obtained. IV inserted per routine protocol. The patient was taken to the operating room and placed in the prone position with a pillow positioned underneath the chest. The neck area was prepped and draped in a sterile fashion using iodine x3. Under fluoroscopy guidance on an AP view, the C4 through C7 vertebral bodies were visualized at approximately 10-degree angle, starting on the left C4, ending on the left C7, passing through the C5 and C6. Using a 25-gauge 3-1/2-inch spinal needle, the needle was advanced via the skin. The tip of the needle was maneuvered and directed towards the epiphyseal junction of each corresponding vertebra. Once the tip of the needle was at the vicinity of the medial branch, the needle was pulled approximately 2 mm off the bone. After negative aspiration of blood or CSF and confirmation on AP, oblique as well as lateral view, a total of 4 mL of preservative-free 0.25% Marcaine with 80 mg of Depo- Medrol was injected in divided doses between those four levels. The needles were then removed intact. The patient experienced no sign or symptoms of intrathecal or intravascular injection. The patient experienced no paresthesia. The procedure was completed without any apparent difficulty or any complications. The patient appeared to tolerate it well. ASSESSMENT AND PLAN: This is a 55-year-old female with cervical spondylosis, cervical degenerative disc disease, cervical facet arthropathy status post left-sided cervical facet steroid injection C4-C7, patient will continue her current medications, patient will follow in approximately 2 weeks for reevaluation. Complications None
== END 2020-10-24 09:11 | disposition home or self-care (01) ==
LOC: SDC 06:55 → AC 06:56
PROVIDERS: PCP Internal Medicine; Referring Provider Anesthesiology Pain Medicine; Visit Provider Anesthesiology Pain Medicine
PROC: 3E0U3BZ Introduction of Anesthetic Agent into Joints, Percutaneous Approach (ICD-10-PCS; CPT 64490; principal; 2020-10-24 08:15)
DX: M47.812 Spondylosis without myelopathy or radiculopathy, cervical region (principal); E11.9 Type 2 diabetes mellitus without complications; F41.9 Anxiety disorder, unspecified; F32.9 Major depressive disorder, single episode, unspecified; K21.9 Gastro-esophageal reflux disease without esophagitis; F17.210 Nicotine dependence, cigarettes, uncomplicated; M46.96 Unspecified inflammatory spondylopathy, lumbar region; M51.37 Other intervertebral disc degeneration, lumbosacral region; M79.10 Myalgia, unspecified site; Z79.891 Long term (current) use of opiate analgesic; G89.28 Other chronic postprocedural pain
CPT/HCPCS: 64491; 64492; 64490; 72040; 82962; J7120

== ENCOUNTER → 2020-12-21 15:26 | Outpatient (CLI) | payer MEDICARE, MEDICAID, SELFPAY ==
[2020-12-23 16:08] LABS: Endomysial Antibody IgA Negative (Negative)
[2020-12-23 21:14] LABS: Immunoglobulin A 93 mg/dL (87-352); t-Transglutaminase IgA <2 U/mL (0-3)
== END ==
PROVIDERS: PCP Internal Medicine; Referring Provider Internal Medicine Gastroenterology; Visit Provider Internal Medicine Gastroenterology
DX: R19.7 Diarrhea, unspecified (principal)
CPT/HCPCS: 36415; 82784; 83516; 86140; 86255

== ENCOUNTER → 2021-01-16 13:11 | Outpatient (CLI) | payer MEDICARE, MEDICAID, SELFPAY ==
--- NOTE | 2021-01-16 13:34 | RAD_ITS ---
History: RADICULOPATHY Lumbar spine 5 views: Findings: No fracture or subluxation. Narrowing and vacuum disc phenomenon noted at L4-5 level. Pedicles and posterior elements appear intact. IMPRESSION: Mild to moderate L4-5 spondylosis. at 1655 Reported and signed by: Horacio Diallo MD Electronically Signed: Horacio Diallo MD at 16:54 EDT Tel , Service support , RAD/L/S Spine Min 4 Views
--- NOTE | 2021-01-16 13:36 | RAD_ITS ---
STUDY: X-RAY - LEFT ANKLE REASON FOR EXAM: Female, 55 years old. Pain. Evaluate for arthritis. TECHNIQUE: 2 view(s) of the ankle. COMPARISON: None. FINDINGS: Mild osteopenia. Mild arthrosis of the tibiotalar and subtalar joints. Large inferior calcaneal spur. Mild arthrosis of the midfoot. Diffuse soft tissue edema. RAD/Ankle 2 Views IMPRESSION: Osteopenia with osteoarthritic changes. No acute abnormality, erosive changes or periostitis. Electronically Signed: Maverick Rausch MD at 12:08 EDT , Service support ,
--- NOTE | 2021-01-16 13:36 | RAD_ITS ---
STUDY: X-RAY - RIGHT ANKLE REASON FOR EXAM: Female, 55 years old. Pain. Evaluate for arthritis. TECHNIQUE: 2 view(s) of the ankle. COMPARISON: None. FINDINGS: Mild osteopenia. Mild arthrosis of the tibiotalar and subtalar joints. Large inferior calcaneal spur. Mild arthrosis of the midfoot. Diffuse soft tissue edema. RAD/Ankle 2 Views IMPRESSION: Osteopenia with osteoarthritic changes. No acute abnormality, erosive changes or periostitis. Electronically Signed: Maverick Rausch MD at 12:04 EDT , Service support ,
--- NOTE | 2021-01-16 13:36 | RAD_ITS ---
STUDY: X-RAY - RIGHT HAND REASON FOR EXAM: Female, 55 years old. Hand pain. Evaluate for osteoarthrosis. TECHNIQUE: 2 view(s) of the hand. COMPARISON: None. FINDINGS: Osteopenia. Mild arthrosis of the radiocarpal articulation. Mild arthrosis of the radiocarpal row. Mild arthrosis of the CMC joint. Mild arthrosis of the MCP and IP joints. The soft tissue structures are unremarkable. RAD/Hand 2 Views IMPRESSION: Osteopenia with mild osteoarthritic changes as described. No acute abnormality, erosive changes or periostitis. Electronically Signed: Maverick Rausch MD at 12:07 EDT , Service support ,
--- NOTE | 2021-01-16 13:37 | RAD_ITS ---
STUDY: X-RAY - LEFT FOOT CLINICAL: Female, 55 years old. Pain. Evaluate for osteoarthrosis. TECHNIQUE: 2 view(s) of the foot. COMPARISON: None. FINDINGS: Mild osteopenia. Large inferior calcaneal spur. Mild arthrosis of the midfoot. Mild arthrosis of the MTP and IP joints, most marked at the first MTP joint. The soft tissue structures are unremarkable. RAD/Foot 2 Views IMPRESSION: Osteopenia with osteoarthritic changes as described. No acute abnormality, erosive changes or periostitis. Electronically Signed: Maverick Rausch MD at 12:12 EDT , Service support ,
--- NOTE | 2021-01-16 13:37 | RAD_ITS ---
STUDY: X-RAY - RIGHT FOOT CLINICAL: Female, 55 years old. Pain. Evaluate for osteoarthrosis. TECHNIQUE: 2 view(s) of the foot. COMPARISON: None. FINDINGS: Mild osteopenia. Large inferior calcaneal spur. Mild arthrosis of the midfoot. Mild arthrosis of the MTP and IP joints, most marked at the first MTP joint. The soft tissue structures are unremarkable. RAD/Foot 2 Views IMPRESSION: Osteopenia with osteoarthritic changes as described. No acute abnormality, erosive changes or periostitis. Electronically Signed: Maverick Rausch MD at 12:12 EDT , Service support ,
--- NOTE | 2021-01-16 13:40 | RAD_ITS ---
STUDY: X-RAY - LEFT HAND REASON FOR EXAM: Female, 55 years old. Hand pain. Evaluate for osteoarthrosis. TECHNIQUE: 2 view(s) of the hand. COMPARISON: None. FINDINGS: Osteopenia. Mild arthrosis of the radiocarpal articulation. Mild arthrosis of the radiocarpal row. Mild arthrosis of the CMC joint. Mild arthrosis of the MCP and IP joints. The soft tissue structures are unremarkable. RAD/Hand 2 Views IMPRESSION: Osteopenia with mild osteoarthritic changes as described. No acute abnormality, erosive changes or periostitis. Electronically Signed: Maverick Rausch MD at 12:06 EDT , Service support ,
[2021-01-16 13:56] LABS: Absolute Lymphocyte Count 1.43 X10^3/uL (0.83-4.51); Basophil# 0.05 X10^3/uL; Basophil% 0.7 % (0-1); Eosinophil# 0.16 X10^3/uL; Eosinophils% 2.2 % (0-5); Hematocrit 46.5 % (37-47); Hemoglobin 15.8 g/dL (12.0-15.0); Lymphocyte # 1.43 X10^3/ul (0.83-4.51); Lymphocyte % 19.6 % (19-41); Mean Corpuscular Volume 94.3 fL (81-99); Monocyte# 0.58 X10^3/uL; NRBC Flagged by Analyzer 0 % (0-5); Neutrophil # 5.04 X10^3/uL (2.7-7.7); Neutrophil % 69.2 % (47-70); Platelet Count 273 K/mm3 (150-450); RBC Distribution Width CV 12.8 % (11.6-14.6); RBC Distribution Width SD 44.3 fl (35.1-43.9); Red Blood Count 4.93 M/mm3 (4.2-5.4); White Blood Count 7.3 K/mm3 (4.4-11.0)
[2021-01-16 14:27] LABS: AST(SGOT) 35 U/L (15-37); Alanine Aminotransfer ALT/SGPT 71 U/L (13-56); Albumin, Serum 3.7 g/dL (3.2-5.0); BUN 13 mg/dL (7-18); Creatinine, Serum 1.22 mg/dL (0.55-1.02); EST Glomerular Filtration Rate 49 mL/min (>60); Est Glom Filt Rate - Afr Amer 59 mL/min (>60); Rheumatoid Factor < 10.0 IU/mL (<15); Uric Acid 8.2 mg/dL (2.6-6.0)
[2021-01-16 14:52] LABS: Erythrocyte Sedimentation Rate 11 mm/hr (0-30)
[2021-01-16 15:14] LABS: Hepatitis B Surface Antibody Non-Reactive; Hepatitis B Surface Antigen Non-Reactive (Nonreactive); Hepatitis C Antibody Non-Reactive (Nonreactive)
[2021-01-18 14:43] LABS: ANTINUCLEAR ANTIBODIES DIRECT Negative (Negative)
[2021-01-20 06:08] LABS: QNTFERON TB Mitogen Value > 10.00 IU/mL (.); QNTFERON TB Nil Value 0.06 IU/mL (.); QNTFERON TB1+ Ag Value 0.06 IU/mL (.); QNTFERON TB2+ Ag Value 0.04 IU/mL (.)
[2021-01-20 08:35] LABS: CCP IgG Antibodies 4 units (0-19); Hepatitis B Core AB IgM Negative (Negative); QNTIFERON TB Positive Criteria Negative (Negative)
== END ==
PROVIDERS: Internal Medicine Rheumatology; PCP Internal Medicine; Referring Provider Internal Medicine Gastroenterology; Visit Provider Internal Medicine Gastroenterology
DX: M15.0 Primary generalized (osteo)arthritis (principal); Z11.59 Encounter for screening for other viral diseases; M54.16 Radiculopathy, lumbar region; M47.817 Spondylosis without myelopathy or radiculopathy, lumbosacral region; M48.061 Spinal stenosis, lumbar region without neurogenic claudication
CPT/HCPCS: 36415; 72110; 73120; 73600; 73620; 82040; 82565; 84450; 84460; 84520; 84550; 85025; 85652; 86038; 86140; 86200; 86431; 86480; 86705; 86706; 86803; 87340; 87635; C9803; U0005; U0003

== ENCOUNTER 2021-02-03 16:55 | Emergency (ER) | payer MEDICARE, MEDICAID, SELFPAY ==
[2021-02-03 17:07] VITALS: BP 138/77; PULSE 77; RESP 15; TEMP 36.4; O2SAT 97; BMI 50.6
[2021-02-03 18:54] VITALS: BP 150/86; PULSE 71; RESP 19; O2SAT 97
--- NOTE | 2021-02-03 19:09 | CT_ITS ---
STUDY: CT BRAIN WITHOUT CONTRAST REASON FOR EXAM: Female, 56 years old. HEADACHE trauma Hit head lt parietal against door jamb. No LOC TECHNIQUE: Transaxial CT imaging of the brain was performed without administration of intravenous contrast material. Individualized dose optimization techniques were used for this CT. COMPARISON: 05.28.19 FINDINGS: Normal soft tissues. Normal calvarium. Normal size ventricles and extra-axial spaces for the patient''s age. Normal white matter tracts of the cerebral hemispheres. Normal basal ganglia and thalami. Normal brainstem. Normal cerebellum. There is no intracranial hemorrhage. There are no findings of an acute ischemic infarction. There is mastoid sinus disease. ASPECTS 10 CT/Brain/Head without Contrast IMPRESSION: There are no acute intracranial findings. There is mastoid sinus disease. Electronically Signed: Jw Hahn MD at 19:45 EDT , Service support ,
--- NOTE | 2021-02-03 19:09 | CT_ITS ---
EXAM: CT CERVICAL SPINE WITHOUT INTRAVENOUS CONTRAST CLINICAL INDICATION: Trauma injury. TECHNIQUE: Helically acquired images were obtained of the cervical spine without intravenous contrast. 2D reformatted images were reviewed. This CT exam was performed using one or more of the following dose reduction techniques: automated exposure control, adjustment of the mA and/or kV according to patient size, and/or use of iterative reconstruction technique. This report was created using [employer] report [employer] technology. COMPARISON: CT cervical spine without contrast 06/24/2019. FINDINGS: VERTEBRAE: Straightening of the C-spine curve is unchanged. Minimal anterior wedging of T1 is unchanged. Progression of moderately pronounced right C4-C5 degenerative facet arthropathy. Left C2-C3 degenerative facet arthropathy is unchanged. No traumatic subluxation. No discrete lytic or blastic abnormality. DISCS/SPINAL CANAL/NEURAL FORAMINA: Metallic plate with transfixing screws and bone plug at C5-C6 disc space level are unchanged. No critical stenosis. SOFT TISSUES: Unremarkable. No prevertebral soft tissue swelling. LYMPH NODES: Unremarkable. No cervical adenopathy. LUNG APICES: Unremarkable as visualized. Clear. CT/Spine Cervical without Contras IMPRESSION: 1. No CT evidence of acute fracture or malalignment of the cervical spine and the craniocervical junction. 2. Progression of right C4-C5 degenerative facet arthropathy in the interval change of the left C2-C3 degenerative facet arthropathy when compared to 06/24/2019. Electronically Signed: Roc Ott MD at 19:38 EDT , Service support ,
--- NOTE | 2021-02-03 19:11 | ED.VIS.FALL ---
HPI HPI - Fall History of Present Illness Chief Complaint: Fall Informant: patient Occured/Mechanism Occurred: Today Pain/Injury Pain Location: head and neck Quality of Pain: Sharp Current Severity: Mild Maximum Severity: Mild Associated Symptoms Associated Symptoms: Positive for Loss of consciousness; Negative for Parasthesias, Weakness, Loss of function, Inability to ambulate and Amnesia Narrative Narrative: 56-year-old female history of diabetes. States she became hypoglycemic today felt lightheaded fell and thinks she passed out before she had the ground. Complaining of pain to her back of her head and her neck. Says she fell on the wall. No numbness. No tingling. She is on no blood thinners. She was reportedly treated and seen by paramedics with glucose. Prior similar symptoms: Yes Recent Illness/Hospitalization: No PFSH PFSH Medical History Anxiety Back pain Bipolar disorder Bronchitis CPAP (continuous positive airway pressure) dependence Depression Hiatal hernia High cholesterol History of stress test Migraines Post-menopausal Seizures Sleep apnea Smoker Home Medications fluticasone propionate 2 spray NASAL BID 02/14/16 [History Last Taken Unknown] pravastatin 20 mg PO QHS 08/30/16 [History Last Taken 06/06/20] escitalopram oxalate 20 mg PO DAILY 11/08/17 [History Last Taken Unknown] lansoprazole [Prevacid] 30 mg PO DAILY 12/30/17 [History Last Taken 10/24/20] zolpidem [Ambien] 10 mg PO QHS 12/30/17 [History Last Taken Unknown] alprazolam 1 mg PO BID 05/28/19 [History Last Taken Unknown] amitriptyline 25 mg PO QHS 05/28/19 [History Last Taken Unknown] meloxicam 15 mg PO DAILY 05/28/19 [History Last Taken Unknown] albuterol sulfate 1 - 2 puff INHALATION Q4H PRN PRN 06/02/20 [History Last Taken 10/24/20] fluticasone furoate-vilanterol 1 ea IH DAILY 06/02/20 [History Last Taken 07/18/20 06:15 1 EA] hydrocodone-acetaminophen 1 - 2 tab PO DAILY PRN 06/02/20 [History Last Taken Unknown] metronidazole 250 mg PO TID 02/03/21 [History Last Taken Unknown] rifaximin [Xifaxan] 550 mg PO TID 02/03/21 [History Last Taken Unknown] tetracycline 500 mg PO TID 02/03/21 [History Last Taken Unknown] Allergy/AdvReac Type Severity Reaction Status Date / Time tramadol HCl [From Ultram] Allergy Rash Verified 02/03/21 18:44 cariprazine [From Vraylar] AdvReac Other Verified 02/03/21 18:44 codeine AdvReac Vomiting Verified 02/03/21 18:44 hydromorphone [From Dilaudid] AdvReac Nausea/Vom/ Verified 02/03/21 18:44 Diarrhea oxycodone HCl [From Percocet] AdvReac Vomiting Verified 02/03/21 18:44 quetiapine [From Seroquel] AdvReac Other Verified 02/03/21 18:44 Surgical History History of back surgery History of carpal tunnel surgery Hx of knee surgery Hx of neck surgery Social History Smoking Status: Current every day smoker tobacco type: cigarettes ROS ROS ED ROS Narrative Denies recent illness. Review of Systems ROS Unobtainable: Denies due to encephalopathy Constitutional Constitutional ED: Denies chills or fever(s) Eyes Eyes: Denies change in vision ENT ENT ED: Denies ear pain or sore throat Cardiovascular Cardiovascular: Denies chest pain Respiratory/Chest Respiratory/Chest: Denies cough or dyspnea Gastrointestinal Gastrointestinal: Denies abdominal pain, constipation, diarrhea, melena, nausea or vomiting Genitourinary Genitourinary ED: Denies dysuria Musculoskeletal Musculoskeletal: Denies myalgias Integumentary Denies rash Neurologic Neurologic: Denies headache(s) Psychiatric Psychiatric: Denies depression Endocrine Endocrinology: Denies polyuria Hematologic/Lymphatic Hematologic/Lymphatic: Denies easy bruising Allergic/Immunologic Allergic/Immunologic ED: Denies urticaria EXAM Physical Exam Narrative Exam Narrative: Middle-aged obese female brought in by squad as a c-collar in place. H EENT exam pupils round react to light his motions are intact. No facial trauma. Dentition intact. She has mild tenderness of posterior scalp no laceration no hematoma. She also has tenderness to the back of her neck both spinal and paraspinal. There is no deformity. Trachea midline. C-collar was left in place. Lungs clear to auscultation. Heart regular rhythm. Chest were nontender. Abdomen obese but soft nontender normal bowel sounds no peritoneal signs. Back nontender. Pelvic girdle intact. Moving all 4 extremities. Nontender no deformity. Normal range of motion. Normal exchange architect strength and dorsi plantar flexion. Neurologically she is awake alert with no focal motor deficits. GCS of 15. Const Vital Signs: 02/03/21 17:07 02/03/21 18:45 02/03/21 18:54 Temperature 97.6 F L Temperature Source Temporal Pulse Rate 77 71 Respiratory Rate 15 19 H Respiratory Effort Normal Respiratory Depth Normal Respiratory Pattern Normal Blood Pressure 138/77 H 150/86 H Blood Pressure Mean 97 107 Pulse Ox 97 97 Oxygen Delivery Method Room Air Room Air Room Air 02/03/21 20:45 Temperature Temperature Source Pulse Rate 76 Respiratory Rate Respiratory Effort Respiratory Depth Respiratory Pattern Blood Pressure 142/89 H Blood Pressure Mean 106 Pulse Ox 97 Oxygen Delivery Method Room Air Positive well nourished, well developed and obese; Negative for cachectic, contractures or unkempt General Appearance ED: well developed and NAD; Negative for unkempt, cachectic or contractures Nutritional Appearance: obese; Negative for cachectic HEENT Reports normocephalic trauma and tenderness; Negative for atraumatic Eyes PERRL and EOMs intact bilaterally General Eye ED: Negative for pale conjunctiva or scleral icterus Neck no lymphadenopathy General: tenderness Chest Wall inspection of chest normal and palpation of chest normal Resp normal respiratory effort, no retractions and clear to auscultation bilaterally Auscultation: Negative for rales, rhonchi or wheezes Cardio regular rate, regular rhythm, S1 normal heart sound, S2 normal heart sound and no murmurs GI non-tender, non-distended and no masses Inspection: Negative for abdominal distention Auscultation: normoactive bowel sounds Palpation: soft; Negative for guarding or rebound tenderness present Back/Spine no CVA tenderness Cervical Spine: cervical spine tenderness Lumbar Spine / Lower Back: paraspinal muscle tenderness Extremity normal to inspection, full ROM, no joint enlargement, no clubbing, cyanosis or edema, no calf tenderness and no pedal edema Neuro oriented x3, moves all extremities and no focal motor deficits Sensorium / Orientation: alert, oriented to person, oriented to place and oriented to time; Negative for orientation impaired, confused, lethargic or stuporous Motor Exam: strength 5/5 throughout Psych mental status grossly normal and thought process normal Appearance: Negative for unkempt Skin Lesions: no lesions and No lesion noted Rashes: no rashes and No rashes noted Trauma: Negative for abrasion, laceration or puncture MDM MDM MDM Narrative Medical decision making narrative: 56-year-old diabetic female reportedly hypoglycemic and fell hit her head and neck. CAT scans pending. Blood sugar pending. Exam benign. Repeat exam patient is doing well at 10:10 PM and will be discharged home. Lab Data Attestation: I reviewed the patient's lab results. Lab results narrative: Blood sugar 123. Labs: Laboratory Results - last 24 hr 02/03/21 19:12 POC Glucose 123 H Radiography Diagnostic Testing: Radiology Impression Brain CT 02/03/21 19:09 IMPRESSION: There are no acute intracranial findings. There is mastoid sinus disease. Electronically Signed: Jw Hahn MD at 19:45 EDT , Service support , Cervical Spine CT 02/03/21 19:09 IMPRESSION: 1. No CT evidence of acute fracture or malalignment of the cervical spine and the craniocervical junction. 2. Progression of right C4-C5 degenerative facet arthropathy in the interval change of the left C2-C3 degenerative facet arthropathy when compared to 06/24/2019. Electronically Signed: Roc Ott MD at 19:38 EDT , Service support , CAT scan of both the brain and C-spine as read by the radiologist and reviewed by me showed no acute abnormality. Discharge Plan Triage Chief Complaint: Fall ED Provider: Danie Paula Dx/Rx/DC Orders Clinical Impression: Hypoglycemia, Head injury, Cervical muscle strain Instructions: ED Head Injury (Adult), ED Hypoglycemia Oral Diabetic ... Prescriptions: No Action fluticasone propionate 1 SPRAY spray,suspension 2 spray NASAL BID RF: 0 pravastatin 20 MG tablet 20 mg PO QHS RF: 0 escitalopram oxalate 10 MG tablet 20 mg PO DAILY RF: 0 lansoprazole [Prevacid] 30 MG capsule 30 mg PO DAILY RF: 0 zolpidem [Ambien] 10 MG tablet 10 mg PO QHS RF: 0 alprazolam 0.5 mg tablet 1 mg PO BID RF: 0 amitriptyline 25 MG tablet 25 mg PO QHS RF: 0 meloxicam 7.5 MG tablet 15 mg PO DAILY RF: 0 albuterol sulfate 1 INHALER inhaler 1 - 2 puff INHALATION Q4H PRN PRN (Reason: Sob &/Or Wheezing) RF: 0 fluticasone furoate-vilanterol 1 EACH blister with device 1 ea IH DAILY RF: 0 hydrocodone-acetaminophen 1 TABLET tablet 1 - 2 tab PO DAILY PRN (Reason: Pain 1-10 Or Fever) RF: 0 tetracycline 500 mg capsule 500 mg PO TID RF: 0 metronidazole 250 mg tablet 250 mg PO TID RF: 0 Xifaxan 550 mg tablet 550 mg PO TID RF: 0 Primary Care Provider: Jericho Nieves Referrals: Jericho Nieves MD [Primary Care Provider] - 1 Week if not improving Activity Restrictions/Additional Instructions: Tylenol and Motrin for pain. Watch your blood sugars closely check it tonight before you go to bed. Follow-up with your doctor if not improving. Disposition Disposition: Home, Self Care
[2021-02-03 19:16] LABS: Bedside Glucose 123 mg/dL (70-110)
[2021-02-03 20:45] VITALS: BP 142/89; PULSE 76; O2SAT 97
[2021-02-03 22:13] VITALS: RESP 15
== END 2021-02-03 22:13 | disposition home or self-care (01) ==
PROVIDERS: Emergency Provider Emergency Medicine; PCP Internal Medicine
DX: E11.649 Type 2 diabetes mellitus with hypoglycemia without coma (principal); S09.90XA Unspecified injury of head, initial encounter; S16.1XXA Strain of muscle, fascia and tendon at neck level, initial encounter; W19.XXXA Unspecified fall, initial encounter; Y93.01 Activity, walking, marching and hiking; F31.9 Bipolar disorder, unspecified; E78.00 Pure hypercholesterolemia, unspecified; F41.9 Anxiety disorder, unspecified; G47.30 Sleep apnea, unspecified; F17.210 Nicotine dependence, cigarettes, uncomplicated; M47.819 Spondylosis without myelopathy or radiculopathy, site unspecified; Z79.1 Long term (current) use of non-steroidal anti-inflammatories (NSAID)
CPT/HCPCS: 70450; 72125; 82962; 99283

== ENCOUNTER 2021-02-20 06:10 | Day surgery (SDC) | payer MEDICARE, MEDICAID, SELFPAY ==
[2021-02-20 06:43] VITALS: BP 122/85; PULSE 81; RESP 16; TEMP 36.5; O2SAT 98; BMI 50.8
[2021-02-20] MEDS: Lactated Ringers 1,000 ML 100 ML IV (06:48)
[2021-02-20 06:56] LABS: Bedside Glucose 145 mg/dL (70-110)
--- NOTE | 2021-02-20 07:30 | RAD_ITS ---
PROCEDURE: Left L3-S1 radiofrequency ablation. DATE OF EXAMINATION: 02/20/2021. INDICATION: Female, 56 years old. Back pain. FLUOROSCOPY TIME (if supplied): (20.6 seconds) minutes/seconds. 10 images were obtained. Intraoperative imaging provided for left L3-S1 radiofrequency ablation. RAD/L/S Spine Min 4 Views IMPRESSION: Intraoperative imaging provided for left L3-S1 radiofrequency ablation. Electronically Signed: Duy Hanna MD at 9:38 EDT , Service support ,
[2021-02-20] MEDS: Lidocaine 1% (30 ml sdv) 30 ML Vial (07:48)
[2021-02-20] MEDS: MethylPREDNISolone Acetate 40 MG/ML Vial IM (07:48)
[2021-02-20] MEDS: Bupivacaine 0.25% 30 ML Vial (07:49)
--- NOTE | 2021-02-20 07:56 | PCM.OPRPT ---
Report of Operation Date of Procedure: 02/20/21 Pre-Operative Diagnosis: Lumbosacral spondylosis, lumbosacral degenerative disc disease, lumbar facet arthropathy Post-Operative Diagnosis: Lumbosacral spondylosis, lumbosacral degenerative disc disease, lumbar facet arthropathy Surgery/Procedure Performed:: Left-sided lumbar radiofrequency ablation of the medial branch L3, L4, L5, S1 Type of Anesthesia: MAC Estimated Blood Loss (mL): Minimal Description of Procedure: History and physical today was reviewed. Risks and benefits of procedure explained. The patient understood, agreed to the procedure and informed consent was obtained. IV inserted per routine protocol. The patient was taken to the operating room, placed in the prone position with a pillow positioned underneath the abdomen. The left side of the lower back was prepped and draped in a sterile fashion using iodine x 3. Under fluoroscopy guidance, on an oblique view, the L3 through S1 vertebral bodies were visualized. The skin and subcutaneous tissue was anesthetized with approximately 10 mL of 1% lidocaine using a 25-gauge regular needle. Under direct visualization with fluoroscopy at approximately 25-degree angle, starting on the left L3, ending on the left S1 passing through the L4-L5 using a 20-gauge 15 cm with a 10 mm curved active tip radiofrequency ablation needle the needle passed through the skin. The tip of the needle was maneuvered and directed towards the superior and medial gutter of the transverse process at the vicinity of the medial branch. Once the tip of the needle was in contact with the bone, the needle pulled approximately 2 mm up the bone. The stylet of each needle was then removed. After negative aspiration of blood with CSF and confirmation of AP as well as oblique view, radiofrequency ablation probe was then inserted at each level. Impedance was then recorded at L3 to be 337, at L4 326, at L5 333, at S1 206 ohm. Motor-evoked potential was then initiated to 1.5 volt without any motor response at each corresponding level. The probe was then removed intact and a total of 6 mL preservative-free 1% lidocaine was injected in divided doses between those 4 levels after negative aspiration of blood with CSF. The radiofrequency ablation probe was then reinserted after confirmation of AP, oblique as well as lateral view. Radiofrequency ablation was then initiated to 80 degrees Celsius for 90 seconds at each level. Once concluded, the probe was then removed intact and a total of 6 mL of preservative-free 0.25% Marcaine with 40 mg Depo-Medrol was injected in divided doses between those 4 levels. The needles were then removed intact. The patient experienced no signs or symptoms of intrathecal, intravascular injection. The patient experienced no paraesthesia. The procedure was completed without any apparent difficulty, any complication. The patient appeared to tolerate well. Sensory as well as motor exam was unchanged from prior to procedure. ASSESSMENT AND PLAN: This is a 56-year-old female with lumbosacral spondylosis, lumbosacral degenerative disc disease, lumbar facet arthropathy, status post left-sided lumbar radiofrequency ablation of the medial branch L3 through S1. The patient will continue her current medications. The patient will follow up in approximately 2 weeks for reevaluation. Complications None
[2021-02-20 07:58] VITALS: BP 127/72; PULSE 73; RESP 16; TEMP 36.7; O2SAT 98
[2021-02-20 08:00] VITALS: BP 116/67; BP 122/85; PULSE 70; RESP 16; O2SAT 98
[2021-02-20 08:05] VITALS: BP 122/85; BP 128/87; PULSE 71; RESP 16; O2SAT 100
[2021-02-20 08:10] VITALS: BP 122/85; BP 129/83; PULSE 70; RESP 16; TEMP 36.4; O2SAT 100
[2021-02-20 08:20] VITALS: BP 122/85
== END 2021-02-20 08:25 | disposition home or self-care (01) ==
LOC: SDC 06:11 → AC 06:11
PROVIDERS: PCP Internal Medicine; Referring Provider Anesthesiology Pain Medicine; Visit Provider Anesthesiology Pain Medicine
PROC: (CPT 64635; principal; 2021-02-20 07:15)
DX: M47.817 Spondylosis without myelopathy or radiculopathy, lumbosacral region (principal); M51.17 Intervertebral disc disorders with radiculopathy, lumbosacral region; M47.27 Other spondylosis with radiculopathy, lumbosacral region; M47.26 Other spondylosis with radiculopathy, lumbar region; M48.061 Spinal stenosis, lumbar region without neurogenic claudication; G89.28 Other chronic postprocedural pain; Z79.891 Long term (current) use of opiate analgesic; E11.9 Type 2 diabetes mellitus without complications; F32.A Depression, unspecified; F41.9 Anxiety disorder, unspecified; K21.9 Gastro-esophageal reflux disease without esophagitis; E78.5 Hyperlipidemia, unspecified; J45.909 Unspecified asthma, uncomplicated; F17.200 Nicotine dependence, unspecified, uncomplicated; Z79.51 Long term (current) use of inhaled steroids; Z79.899 Other long term (current) drug therapy
CPT/HCPCS: 01936; 64635; 64636; 72110; 76000; 82962; J7120

== ENCOUNTER → 2021-03-07 14:57 | Outpatient (CLI) | payer MEDICARE, MEDICAID, SELFPAY | PROVIDERS: PCP Internal Medicine; Referring Provider Internal Medicine Gastroenterology; Visit Provider Internal Medicine Gastroenterology | DX: R19.7 Diarrhea, unspecified (principal) ==

== ENCOUNTER 2021-03-20 05:56 | Day surgery (SDC) | payer MEDICARE, MEDICAID, SELFPAY ==
[2021-03-20 06:28] VITALS: BP 146/73; PULSE 73; RESP 18; TEMP 36.7; O2SAT 95; BMI 52.0
[2021-03-20] MEDS: Lactated Ringers 1,000 ML 100 ML IV (06:47)
[2021-03-20 07:00] LABS: Bedside Glucose 123 mg/dL (70-110)
--- NOTE | 2021-03-20 07:28 | RAD_ITS ---
PROCEDURE: Right L3-S1 radiofrequency ablation. DATE OF EXAMINATION: 03/20/2021. INDICATION: Female, 56 years old. Chronic low back pain. FLUOROSCOPY TIME (if supplied): (14 seconds) minutes/seconds. 8 intraoperative images provided. RADIATION DOSAGE (If Supplied By Facility): CTDIvol = ( ) mGy, DLP = ( ) mGycm RAD/Lumbar Spine 2 or 3 Views IMPRESSION: Intraoperative imaging provided for right L3-S1 radiofrequency ablation. Electronically Signed: Duy Hanna MD at 14:29 EST , Service support ,
[2021-03-20] MEDS: Lidocaine 1% (30 ml sdv) 30 ML Vial (07:41)
[2021-03-20] MEDS: MethylPREDNISolone Acetate 80 MG/ML Vial (07:50)
[2021-03-20] MEDS: Bupivacaine 0.25% 30 ML Vial (07:51)
[2021-03-20 07:55] VITALS: BP 115/67; BP 146/73; PULSE 68; RESP 16; TEMP 36.4; O2SAT 92
[2021-03-20 08:00] VITALS: BP 120/67; BP 146/73; PULSE 66; RESP 18; O2SAT 94
[2021-03-20 08:05] VITALS: BP 120/64; BP 146/73; PULSE 66; RESP 16; O2SAT 95
[2021-03-20 08:10] VITALS: BP 124/79; BP 146/73; PULSE 66; RESP 16; TEMP 36.4; O2SAT 98
[2021-03-20 08:23] VITALS: BP 146/73
--- NOTE | 2021-03-20 08:24 | PCM.OPRPT ---
Report of Operation Date of Procedure: 03/20/21 Pre-Operative Diagnosis: Lumbosacral spondylosis, lumbosacral degenerative disc disease, lumbar facet arthropathy Post-Operative Diagnosis: Lumbosacral spondylosis, lumbosacral degenerative disc disease, lumbar facet arthropathy Surgery/Procedure Performed:: Right-sided lumbar radiofrequency ablation of the medial branch L3, L4, L5, S1 Type of Anesthesia: MAC Estimated Blood Loss (mL): Minimal Description of Procedure: History and physical today was reviewed. Risks and benefits of procedure explained. The patient understood, agreed to the procedure and informed consent was obtained. IV inserted per routine protocol. The patient was taken to the operating room, placed in the prone position with a pillow positioned underneath the abdomen. The right side of the lower back was prepped and draped in a sterile fashion using iodine x 3. Under fluoroscopy guidance, on an oblique view, the L3 through S1 vertebral bodies were visualized. The skin and subcutaneous tissue was anesthetized with approximately 10 mL of 1% lidocaine using a 25-gauge regular needle. Under direct visualization with fluoroscopy at approximately 25-degree angle, starting on the right L3, ending on the right S1 passing through the L4-L5 using a 20-gauge 15 cm with a 10 mm curved active tip radiofrequency ablation needle the needle passed through the skin. The tip of the needle was maneuvered and directed towards the superior and medial gutter of the transverse process at the vicinity of the medial branch. Once the tip of the needle was in contact with the bone, the needle pulled approximately 2 mm up the bone. The stylet of each needle was then removed. After negative aspiration of blood with CSF and confirmation of AP as well as oblique view, radiofrequency ablation probe was then inserted at each level. Impedance was then recorded at L3 to be 244, at L4 378, at L5 212, at S1 242 ohm. Motor-evoked potential was then initiated to 1.5 volt without any motor response at each corresponding level. The probe was then removed intact and a total of 6 mL preservative-free 1% lidocaine was injected in divided doses between those 4 levels after negative aspiration of blood with CSF. The radiofrequency ablation probe was then reinserted after confirmation of AP, oblique as well as lateral view. Radiofrequency ablation was then initiated to 80 degrees Celsius for 90 seconds at each level. Once concluded, the probe was then removed intact and a total of 6 mL of preservative-free 0.25% Marcaine with 40 mg Depo-Medrol was injected in divided doses between those 4 levels. The needles were then removed intact. The patient experienced no signs or symptoms of intrathecal, intravascular injection. The patient experienced no paraesthesia. The procedure was completed without any apparent difficulty, any complication. The patient appeared to tolerate well. Sensory as well as motor exam was unchanged from prior to procedure. ASSESSMENT AND PLAN: This is a 56-year-old female with lumbosacral spondylosis, lumbosacral degenerative disc disease, lumbar facet arthropathy, status post right-sided radiofrequency ablation of the medial branch L3 through S1. The patient will continue her current medications. The patient will follow up in approximately 2 weeks for reevaluation. Complications None
== END 2021-03-20 08:36 ==
LOC: SDC 05:57 → AC 05:58
PROVIDERS: PCP Internal Medicine; Referring Provider Anesthesiology Pain Medicine; Visit Provider Anesthesiology Pain Medicine
PROC: (CPT 64635; principal; 2021-03-20 07:15)
DX: M47.817 Spondylosis without myelopathy or radiculopathy, lumbosacral region (principal); M51.37 Other intervertebral disc degeneration, lumbosacral region; G89.29 Other chronic pain; E11.9 Type 2 diabetes mellitus without complications; K21.9 Gastro-esophageal reflux disease without esophagitis; E78.5 Hyperlipidemia, unspecified; J45.909 Unspecified asthma, uncomplicated; F17.210 Nicotine dependence, cigarettes, uncomplicated; F32.9 Major depressive disorder, single episode, unspecified; F41.9 Anxiety disorder, unspecified; M46.96 Unspecified inflammatory spondylopathy, lumbar region; M79.10 Myalgia, unspecified site; Z79.891 Long term (current) use of opiate analgesic; M47.812 Spondylosis without myelopathy or radiculopathy, cervical region; M50.30 Other cervical disc degeneration, unspecified cervical region
CPT/HCPCS: 01936; 64635; 64636 ×3; 72100; 76000; 82962; J7120

== ENCOUNTER 2021-05-08 10:00 | Day surgery (SDC) | payer MEDICARE, MEDICAID, SELFPAY ==
[2021-05-08 10:23] VITALS: BP 137/78; PULSE 87; RESP 16; TEMP 36.6; O2SAT 95; BMI 51.7
[2021-05-08] MEDS: Lactated Ringers 1,000 ML 15 ML IV (10:27)
--- NOTE | 2021-05-08 10:36 | RAD_ITS ---
PROCEDURE: Caudal block. DATE OF EXAMINATION: 05/08/2021. INDICATION: Female, 56 years old. Chronic low back pain. FLUOROSCOPY TIME (if supplied): (3.3 seconds) minutes/seconds. 2 images were submitted. RAD/Fluor Guidance for Spine Inj IMPRESSION: Intraoperative imaging provided for caudal block. Electronically Signed: Duy Hanna MD at 11:10 EST , Service support ,
[2021-05-08] MEDS: Bupivacaine 0.25% 30 ML Vial (10:42)
[2021-05-08] MEDS: Lidocaine 1% (5 ml sdv) 5 ML Vial (10:42)
[2021-05-08] MEDS: MethylPREDNISolone Acetate 80 MG/ML Vial (10:42)
[2021-05-08] MEDS: 0.9% Normal Saline (Pres. free 10 ML Vial (10:42)
[2021-05-08 10:50] VITALS: BP 104/62; BP 137/78; PULSE 78; RESP 16; TEMP 36.2; O2SAT 97
[2021-05-08 10:55] VITALS: BP 115/67; BP 137/78; PULSE 78; RESP 16; O2SAT 98
[2021-05-08 11:05] VITALS: BP 112/65; BP 137/78; PULSE 80; RESP 16; TEMP 36.1; O2SAT 94
--- NOTE | 2021-05-08 11:17 | OP.PCM_ITS ---
Report of Operation Date of Procedure: 05/08/21 Pre-Operative Diagnosis: Lumbosacral radiculopathy, lumbosacral degenerative di sc disease, lumbosacral spinal stenosis Post-Operative Diagnosis: Lumbosacral radiculopathy, lumbosacral degenerative disc disease, lumbosacral spinal stenosis Surgery/Procedure Performed:: Caudal epidural steroid injection under fluoroscopic guidance Type of Anesthesia: MAC Estimated Blood Loss (mL): Minimal Description of Procedure: DESCRIPTION OF PROCEDURE: History and physical of today was reviewed. Risks and benefits of the procedure were explained. The patient understood and agreed to proceed. Informed consent was obtained. IV inserted per routine protocol. The patient was taken to the operating room and placed in the prone position with a pillow positioned underneath the abdomen. The lower back and tailbone area was prepped and draped in a sterile fashion using iodine x3. Under fluoroscopy guidance on a lateral view, the caudal space was identified. The skin and subcutaneous tissue was anesthetized with approximately 3 mL of 1% lidocaine using a 25-gauge regular needle. Under direct visualization with fluoroscopy, using a 22-gauge 3-1/2-inch spinal needle, the needle was advanced via the skin through the sacral hiatus. The tip of the needle was passed through the sacrococcygeal ligament and advanced to approximately S4 area. After negative aspiration of blood or CSF, a total of 3 mL of contrast was injected to confirm correct placement of the needle as well as cephalad spread. The spread was followed to approximately L5 area. After confirmation on AP as well as lateral view and repeated negative aspiration, a total of 15 mL of preservative-free 0.125% Marcaine with 80 mg of Depo-Medrol was injected easily. The needle was then removed intact. The patient experienced no sign or symptoms of intrathecal or intravascular injection. The patient experienced no paresthesia. The procedure was completed without any apparent difficulty or any complications. The patient appeared to tolerate it well. ASSESSMENT AND PLAN: This is a 56-year-old female with lumbosacral radiculopathy, lumbosacral degenerative disc disease, lumbosacral spinal stenosis status post caudal epidural steroid injection, patient will continue her current medications, patient will follow in approximately 2 weeks for reevaluation. Complications None
[2021-05-08 11:30] VITALS: BP 137/78
[2021-05-08 12:15] LABS: Bedside Glucose 147 mg/dL (70-110)
== END 2021-05-08 23:59 | disposition home or self-care (01) ==
LOC: SDC 10:02 → AC 10:04
PROVIDERS: PCP Internal Medicine; Referring Provider Anesthesiology Pain Medicine; Visit Provider Anesthesiology Pain Medicine
PROC: 3E0S3BZ Introduction of Anesthetic Agent into Epidural Space, Percutaneous Approach (ICD-10-PCS; CPT 62320; principal; 2021-05-08 11:05)
DX: M51.17 Intervertebral disc disorders with radiculopathy, lumbosacral region (principal); E11.9 Type 2 diabetes mellitus without complications; M48.07 Spinal stenosis, lumbosacral region; K21.9 Gastro-esophageal reflux disease without esophagitis; J45.909 Unspecified asthma, uncomplicated; E78.5 Hyperlipidemia, unspecified; F41.9 Anxiety disorder, unspecified; F17.210 Nicotine dependence, cigarettes, uncomplicated; M48.061 Spinal stenosis, lumbar region without neurogenic claudication; M51.36 Other intervertebral disc degeneration, lumbar region; M47.817 Spondylosis without myelopathy or radiculopathy, lumbosacral region; Z79.891 Long term (current) use of opiate analgesic; M79.10 Myalgia, unspecified site
CPT/HCPCS: 62323; 64483; 77003; 82962; J7120; J3490

== ENCOUNTER 2021-07-05 14:00 | Outpatient (RCR) | payer MEDICARE, MEDICAID, SELFPAY ==
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
--- NOTE | 2021-10-31 08:22 | HP.PT.NRP ---
JUAN EAGLE was seen in my office for initial evaluation on 06/12/21. The following Plan of Care was established for this patient: Initial Frequency: 2-3x /Week Initial Duration: 4 Weeks Patient/Client Instruction: Educate patient on: Condition, Plan of Care For the Purpose of:: To decrease pain, To increase ROM, To improve nutrient delivery to tissue, To improve muscle performance and motor function, To increase tolerance to activity/condition/position, To improve gait and locomotor functions Therapeutic Exercise to Include: Strength training, Postural training, Flexibilty training, Gait and locomotor training, Neuromotor development, Passive ROM, Active ROM, Dynamic Lumbar Stabilization, Scapular Strength/Stabilization For the Purpose of:: To decrease pain, To increase ROM, To improve nutrient delivery to tissue, To improve muscle performance and motor function, To decrease level of supervision to perform tasks, To improve ability of physical actions for home/community/work/leisure, To improve health of tissue, To decrease soft tissue restriction This patient was last seen in our office 07/05/21. Pertinent comments regarding their Physical therapy will appear below: Pt cancelled her last appt and did not reschedule. She will be discharge at this time. At this point I will be discontinuing this patient from physical therapy. I would be happy to see this patient again in the future if found appropriate by the physician. Thank you! Renetta Porter, ABDIAZIZ Balance/Gait/Functional tests - Balance/Special Test Scores Oswestry Low Back Score: 23
== END 2021-07-05 19:00 | disposition home or self-care (01) ==
LOC: PT 14:00
PROVIDERS: PCP Internal Medicine; Referring Provider Nurse Practitioner Family; Visit Provider Nurse Practitioner Family
DX: M53.3 Sacrococcygeal disorders, not elsewhere classified (principal); M48.061 Spinal stenosis, lumbar region without neurogenic claudication; M46.96 Unspecified inflammatory spondylopathy, lumbar region; M51.16 Intervertebral disc disorders with radiculopathy, lumbar region; M51.17 Intervertebral disc disorders with radiculopathy, lumbosacral region; M47.26 Other spondylosis with radiculopathy, lumbar region
CPT/HCPCS: 97110; 97161

== ENCOUNTER 2021-07-17 09:51 | Outpatient (CLI) | payer MEDICARE, MEDICAID, SELFPAY ==
[2021-07-17 10:25] LABS: Erythrocyte Sedimentation Rate 7 mm/hr (0-30)
[2021-07-17 10:27] LABS: Absolute Lymphocyte Count 1.36 X10^3/uL (0.83-4.51); Absolute Neutrophil Count 5.1 X10^3/uL (2.0-7.7); Basophil# 0.06 X10^3/uL; Basophil% 0.8 % (0-1); Eosinophil# 0.18 X10^3/uL; Eosinophils% 2.5 % (0-5); Hematocrit 44.6 % (37-47); Hemoglobin 15.8 g/dL (12.0-15.0); Lymphocyte # 1.36 X10^3/ul (0.83-4.51); Lymphocyte % 18.7 % (19-41); Mean Corp Hgb Conc 35.4 g/dL (32-36); Mean Corpuscular Hgb 35.6 pg (27.0-32.0); Mean Corpuscular Volume 100.5 fL (81-99); Mean Platelet Vol. 9.7 fl (6.2-12.0); Monocyte% 8.2 % (0-10); NRBC Flagged by Analyzer 0 % (0-5); Neutrophil # 5.06 X10^3/uL (2.7-7.7); Neutrophil % 69.4 % (47-70); Platelet Count 282 K/mm3 (150-450); RBC Distribution Width CV 14.6 % (11.6-14.6); RBC Distribution Width SD 53.6 fl (35.1-43.9); Red Blood Count 4.44 M/mm3 (4.2-5.4); White Blood Count 7.3 K/mm3 (4.4-11.0)
[2021-07-17 10:58] LABS: AST(SGOT) 39 U/L (15-37); Alanine Aminotransfer ALT/SGPT 56 U/L (13-56); Albumin, Serum 3.9 g/dL (3.2-5.0); BUN 11 mg/dL (7-18); Creatinine, Serum 1.34 mg/dL (0.55-1.02); EST Glomerular Filtration Rate 44 mL/min (>60); Est Glom Filt Rate - Afr Amer 53 mL/min (>60)
== END 2021-07-17 23:59 | disposition home or self-care (01) ==
LOC: LAB 09:52
PROVIDERS: PCP Internal Medicine; Referring Provider Internal Medicine Rheumatology; Visit Provider Internal Medicine Rheumatology
DX: M15.0 Primary generalized (osteo)arthritis (principal)
CPT/HCPCS: 36415; 82040; 82565; 84450; 84460; 84520; 85025; 85652; 86140

== ENCOUNTER 2021-08-21 06:37 | Day surgery (SDC) | payer MEDICARE, MEDICAID, SELFPAY ==
[2021-08-21] VITALS (7 sets, daily range): BP systolic 127–152; BP diastolic 63–88; PULSE 67–75; RESP 16; TEMP 36.6–36.9; O2SAT 95–100; BMI 53.0
[2021-08-21] MEDS: Lactated Ringers 1,000 ML 15 ML IV (06:57)
[2021-08-21 07:00] LABS: Bedside Glucose 125 mg/dL (74-106)
--- NOTE | 2021-08-21 08:15 | RAD_ITS ---
INDICATION: RADIO FREQ ABLATION L3-S1,LEFT EXAMINATION/TECHNIQUE: X-RAY - XR Spine Lumbar Min 4 Views COMPARISON: 01/16/2021. FLUOROSCOPY DOSE: 15.98 mGy FINDINGS: 10 spot fluoroscopic images were obtained intraoperatively. Images demonstrate the needle placement for radiofrequency ablation. No radiologist was present for the procedure, please refer to operative report for details. RAD/L/S Spine Min 4 Views IMPRESSION: Please refer to operative report for details. Electronically Signed: Jose Dean MD at 9:13 EDT ,
[2021-08-21] MEDS: MethylPREDNISolone Acetate 40 MG/ML Vial IM (08:18)
[2021-08-21] MEDS: Bupivacaine 0.25% 30 ML Vial (08:19)
[2021-08-21] MEDS: Lidocaine 1% (5 ml sdv) 5 ML Vial (08:19)
--- NOTE | 2021-08-21 09:11 | PCM.OPRPT ---
Report of Operation Date of Procedure: 08/21/21 Pre-Operative Diagnosis: Lumbosacral spondylosis, lumbosacral degenerative disc disease, lumbar facet arthropathy Post-Operative Diagnosis: Lumbosacral spondylosis, lumbosacral degenerative disc disease, lumbar facet arthropathy Surgery/Procedure Performed:: Left-sided lumbar radiofrequency ablation of the medial branch L3, L4, L5, S1 Type of Anesthesia: MAC Estimated Blood Loss (mL): Minimal Description of Procedure: History and physical today was reviewed. Risks and benefits of procedure explained. The patient understood, agreed to the procedure and informed consent was obtained. IV inserted per routine protocol. The patient was taken to the operating room, placed in the prone position with a pillow positioned underneath the abdomen. The left side of the lower back was prepped and draped in a sterile fashion using iodine x 3. Under fluoroscopy guidance, on an oblique view, the L3 through S1 vertebral bodies were visualized. The skin and subcutaneous tissue was anesthetized with approximately 10 mL of 1% lidocaine using a 25-gauge regular needle. Under direct visualization with fluoroscopy at approximately 25-degree angle, starting on the left L3, ending on the left S1 passing through the L4-L5 using a 20-gauge 15 cm with a 10 mm curved active tip radiofrequency ablation needle the needle passed through the skin. The tip of the needle was maneuvered and directed towards the superior and medial gutter of the transverse process at the vicinity of the medial branch. Once the tip of the needle was in contact with the bone, the needle pulled approximately 2 mm up the bone. The stylet of each needle was then removed. After negative aspiration of blood with CSF and confirmation of AP as well as oblique view, radiofrequency ablation probe was then inserted at each level. Impedance was then recorded at L3 to be 240, at L4 207, at L5 to 81, at S1 332 ohm. Motor-evoked potential was then initiated to 1.5 volt without any motor response at each corresponding level. The probe was then removed intact and a total of 6 mL preservative-free 1% lidocaine was injected in divided doses between those 4 levels after negative aspiration of blood with CSF. The radiofrequency ablation probe was then reinserted after confirmation of AP, oblique as well as lateral view. Radiofrequency ablation was then initiated to 80 degrees Celsius for 90 seconds at each level. Once concluded, the probe was then removed intact and a total of 6 mL of preservative-free 0.25% Marcaine with 40 mg Depo-Medrol was injected in divided doses between those 4 levels. The needles were then removed intact. The patient experienced no signs or symptoms of intrathecal, intravascular injection. The patient experienced no paraesthesia. The procedure was completed without any apparent difficulty, any complication. The patient appeared to tolerate well. Sensory as well as motor exam was unchanged from prior to procedure. ASSESSMENT AND PLAN: This is a 56-year-old female with lumbosacral spondylosis, lumbosacral degenerative disc disease, lumbar facet arthropathy, status post left-sided lumbar radiofrequency ablation of the medial branch L3 through S1. The patient will continue her current medications. The patient will follow up in approximately 2 weeks for reevaluation. Complications None
== END 2021-08-21 09:28 | disposition home or self-care (01) ==
LOC: SDC 06:38 → AC 06:39
PROVIDERS: PCP Internal Medicine; Referring Provider Anesthesiology Pain Medicine; Visit Provider Anesthesiology Pain Medicine
PROC: (CPT 64635; principal; 2021-08-21 07:55)
DX: M51.37 Other intervertebral disc degeneration, lumbosacral region (principal); E11.9 Type 2 diabetes mellitus without complications; M47.816 Spondylosis without myelopathy or radiculopathy, lumbar region; M47.817 Spondylosis without myelopathy or radiculopathy, lumbosacral region; E78.5 Hyperlipidemia, unspecified; K21.9 Gastro-esophageal reflux disease without esophagitis; J45.909 Unspecified asthma, uncomplicated; F17.210 Nicotine dependence, cigarettes, uncomplicated; M53.3 Sacrococcygeal disorders, not elsewhere classified; Z79.891 Long term (current) use of opiate analgesic
CPT/HCPCS: 64635; 64636 ×2; 72110; 76000; 82962; J7120

== ENCOUNTER → 2021-10-26 | Outpatient (CLI) | payer MEDICARE, MEDICAID, SELFPAY ==
[2021-10-26 15:28] LABS: Erythrocyte Sedimentation Rate 5 mm/hr (0-30)
[2021-10-26 15:30] LABS: Absolute Lymphocyte Count 1.28 X10^3/uL (0.83-4.51); Absolute Neutrophil Count 4.2 X10^3/uL (2.0-7.7); Basophil# 0.03 X10^3/uL; Basophil% 0.5 % (0-1); Eosinophil# 0.14 X10^3/uL; Eosinophils% 2.3 % (0-5); Hematocrit 41.5 % (37-47); Hemoglobin 14.3 g/dL (12.0-15.0); Lymphocyte # 1.28 X10^3/ul (0.83-4.51); Lymphocyte % 20.9 % (19-41); Mean Corp Hgb Conc 34.5 g/dL (32-36); Mean Corpuscular Hgb 34.9 pg (27.0-32.0); Mean Corpuscular Volume 101.2 fL (81-99); Mean Platelet Vol. 10.2 fl (6.2-12.0); Monocyte# 0.48 X10^3/uL; Monocyte% 7.8 % (0-10); NRBC Flagged by Analyzer 0 % (0-5); Neutrophil # 4.16 X10^3/uL (2.7-7.7); Platelet Count 299 K/mm3 (150-450); RBC Distribution Width CV 13.5 % (11.6-14.6); RBC Distribution Width SD 50.2 fl (35.1-43.9); White Blood Count 6.1 K/mm3 (4.4-11.0)
[2021-10-26 16:08] LABS: ALB/GLOB Ratio 1.2 RATIO (0.9-2.4); AST(SGOT) 24 U/L (15-37); Alanine Aminotransfer ALT/SGPT 42 U/L (13-56); Albumin, Serum 3.6 g/dL (3.2-5.0); Alkaline Phosphatase 68 U/L (45-117); Anion Gap 4 (5-15); BUN 8 mg/dL (7-18); CRP 6.55 mg/L (0.0-3.0); Calcium,Total 9.1 mg/dL (8.5-10.1); Chloride 109 mmol/L (98-107); Creatinine, Serum 1.34 mg/dL (0.55-1.02); EST Glomerular Filtration Rate 44 mL/min (>60); Est Glom Filt Rate - Afr Amer 53 mL/min (>60); Glucose 137 mg/dL (74-106); Protein, Total 6.6 g/dL (6.4-8.2); Sodium Level 140 mmol/L (136-145); Thyroid Stim Hormone (TSH) 4.47 uIU/mL (0.358-3.74)
== END | disposition home or self-care (01) ==
LOC: LAB 14:51
PROVIDERS: PCP Internal Medicine; Visit Provider Internal Medicine Rheumatology
DX: M15.0 Primary generalized (osteo)arthritis (principal); F19.10 Other psychoactive substance abuse, uncomplicated; Z79.899 Other long term (current) drug therapy; R53.83 Other fatigue
CPT/HCPCS: 36415; 80053; 80178; 84443; 85025; 85652; 86140

== ENCOUNTER 2022-01-15 18:20 | Emergency (ER) | payer MEDICARE, MEDICAID, SELFPAY ==
[2022-01-15 18:22] VITALS: BP 144/82; PULSE 71; RESP 15; TEMP 37.1; O2SAT 99; BMI 50.9
--- NOTE | 2022-01-15 19:49 | CT_ITS ---
STUDY: CT BRAIN WITHOUT CONTRAST REASON FOR EXAM: Female, 56 years old. headache RADIATION DOSAGE (If Supplied By Facility): CTDIvol = ( 44.99 ) mGy, DLP = ( 812.98 ) mGycm TECHNIQUE: Transaxial CT imaging of the brain was performed without administration of intravenous contrast material. Individualized dose optimization techniques were used for this CT. COMPARISON: 02/03/2021. FINDINGS: Normal soft tissue structures. Normal calvarium. Calcific plaquing of the cavernous carotids. Normal size ventricles and extra-axial spaces for the patient''s age. Normal white matter tracts of the cerebral hemispheres. Normal basal ganglia and thalami. Normal brainstem. Mild calcification of the right mid nucleus There is no intracranial hemorrhage. There are no findings of an acute ischemic infarction. Diffuse opacification of the mastoid air cells bilaterally consistent with chronic inflammatory disease Normal visualized paranasal sinuses No significant change since prior exam. CT/Brain/Head without Contrast IMPRESSION: No evidence for obstructive hydrocephalus mass or acute bleed with findings unchanged since prior exam. Electronically Signed: Fidel Cartwright MD at 22:54 EDT ,
--- NOTE | 2022-01-15 19:54 | EDS_ITS ---
HPI History of Present Illness Chief Complaint: General Illness Narrative Narrative: 56-year-old female presenting with tremor. She states she has had this in the past and it was because of the medication side effect due to Vraylar. Patient states she does not take this anymore. Patient states her most recent change medication was when she was put on Abilify 3 weeks ago. She started to have shaking and hallucinations. She states she was seeing herself sitting beside herself. She called her psychiatric physician and was told to stop taking this. The hallucinations have improved but the patient has brain fog. She states that when she tries to inhale her cigarettes he sometimes has to stop and think about it. 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 She does not have a neurologist. She has not had any seizure-like activity. Patient states that she has not called her psychiatric some back to tell her if she is still shaking. Patient also states she called her primary care physician today who told her to come to the emergency room. Patient does report that she has tardive dyskinesia which is chronic. She states this usually causes problems only with her jaw opening and closing PFSH PFSH Medical History Anxiety Back pain Bipolar disorder Bronchitis CPAP (continuous positive airway pressure) dependence Depression Hiatal hernia High cholesterol History of stress test Migraines Post-menopausal Seizures Sleep apnea Smoker Home Medications adalimumab 10 mg/0.2 mL subcutaneous syringe kit 40 mg subcut X1 08/21/21 [History Last Taken Unknown] buprenorphine 10 mcg/hour weekly transdermal patch 10 patch topical QWEEK 01/15/22 [History Last Taken Unknown] methotrexate sodium 2.5 mg tablet 15 mg PO QWEEK 01/15/22 [History Last Taken Unknown] Allergy/AdvReac Type Severity Reaction Status Date / Time tramadol HCl [From Ultram] Allergy Rash Verified 01/15/22 18:22 cariprazine [From Vraylar] AdvReac Other Verified 01/15/22 18:22 codeine AdvReac Vomiting Verified 01/15/22 18:22 hydromorphone [From Dilaudid] AdvReac Nausea/Vom/ Verified 01/15/22 18:22 Diarrhea oxycodone HCl [From Percocet] AdvReac Vomiting Verified 01/15/22 18:22 quetiapine [From Seroquel] AdvReac Other Verified 01/15/22 18:22 Surgical History History of back surgery History of carpal tunnel surgery Hx of knee surgery Hx of neck surgery Social History Smoking Status: Current every day smoker tobacco type: cigarettes ROS ROS ED Review of Systems ROS Unobtainable: Denies due to encephalopathy Constitutional Constitutional ED: Denies chills or fever(s) Eyes Eyes: Denies change in vision ENT ENT ED: Denies rhinorrhea or sore throat Cardiovascular Cardiovascular: Denies chest pain or palpitations Respiratory/Chest Respiratory/Chest: Denies cough or dyspnea Gastrointestinal Gastrointestinal: Denies abdominal pain or constipation Genitourinary Genitourinary ED: Denies dysuria or hematuria Musculoskeletal Musculoskeletal: Denies arthralgias or back pain Integumentary Denies abscess or Abrasions Neurologic Neurologic: Reports other Details: Tremor Psychiatric Psychiatric: Reports anxiety EXAM Physical Exam Const Vital Signs: 01/15/22 18:22 01/15/22 19:23 Temperature 98.7 F Temperature Source Temporal Pulse Rate 71 Respiratory Rate 15 Respiratory Pattern Normal Blood Pressure 144/82 H Blood Pressure Mean 102 Pulse Ox 99 Oxygen Delivery Method Room Air Positive well nourished General Appearance ED: NAD HEENT Reports moist mucous membranes Negative for trauma Eyes PERRL and EOMs intact bilaterally General Eye ED: Negative for pale conjunctiva or scleral icterus Resp normal respiratory effort and clear to auscultation bilaterally Auscultation: Negative for rales, rhonchi or wheezes Cardio regular rate and regular rhythm GI normal to inspection, nondistended, normoactive bowel sounds Extremity normal to inspection Neuro oriented x3, CN's II-XII intact bilaterally and no sensory deficits noted Neuro Narrative: Resting tremor noted. Sensorium / Orientation: alert Motor Exam: strength 5/5 throughout MDM MDM MDM Narrative Medical decision making narrative: Patient presenting with a tremor which resolved correction through her work-up. Her CBC is normal. Creatinine 1.10 which is better than her baseline. Electrolytes within normal limits. LFTs are normal. Urine drug screen positive for benzodiazepines however she takes Xanax. Urinalysis negative for infection. CT brain negative. I discussed all findings with the patient and she states that she is comfortable going home. She will follow-up with her outpatient caregiver to discuss her medications. She is discharged home in stable condition. Impression: 1. Tremor 2. Anxiety Lab Data Labs: Laboratory Results - last 24 hr 01/15/22 01/15/22 01/15/22 20:32 20:32 21:00 WBC 7.6 RBC 3.98 L Hgb 13.4 Hct 39.0 MCV 98.0 MCH 33.7 H MCHC 34.4 RDW Std Deviation 51.3 H RDW Coeff of Erlinda 14.3 Plt Count 283 MPV 10.1 Immature Gran % (Auto) 0.400 Neut % (Auto) 74.3 H Lymph % (Auto) 18.7 L Doddridge % (Auto) 4.7 Eos % (Auto) 1.2 Baso % (Auto) 0.7 Absolute Neuts (auto) 5.6 Absolute Lymphs (auto) 1.42 Nucleated RBC % 0 Sodium 142 Potassium 3.9 Chloride 110 H Carbon Dioxide 28.0 Anion Gap 4 L BUN 9 Creatinine 1.10 H Estim Creat Clear Calc 43.61 Est GFR (MDRD) Af Amer 66 Est GFR (MDRD) Non-Af 55 L BUN/Creatinine Ratio 8.2 L Glucose 111 H Calcium 8.9 Total Bilirubin 0.40 AST 29 ALT 46 Alkaline Phosphatase 88 Total Protein 6.3 L Albumin 3.3 Globulin 3.0 Albumin/Globulin Ratio 1.1 Urine Color Urine Clarity Urine pH Ur Specific Hortense Urine Protein Urine Glucose (UA) Urine Ketones Urine Occult Blood Urine Nitrite Urine Bilirubin Urine Urobilinogen Ur Leukocyte Esterase Urine RBC Urine WBC Ur Squamous Epith Cells Urine Bacteria Urine Mucus Urine Opiates Screen NEGATIVE Urine Methadone Screen NEGATIVE Ur Barbiturates Screen NEGATIVE Ur Phencyclidine Scrn NEGATIVE Ur Amphetamines Screen NEGATIVE MDMA (Ecstasy) Screen NEGATIVE U Benzodiazepines Scrn POSITIVE H Urine Cocaine Screen NEGATIVE U Cannabinoids Screen NEGATIVE Ur Drug Screen Comment 01/15/22 21:00 WBC RBC Hgb Hct MCV MCH MCHC RDW Std Deviation RDW Coeff of Erlinda Plt Count MPV Immature Gran % (Auto) Neut % (Auto) Lymph % (Auto) Doddridge % (Auto) Eos % (Auto) Baso % (Auto) Absolute Neuts (auto) Absolute Lymphs (auto) Nucleated RBC % Sodium Potassium Chloride Carbon Dioxide Anion Gap BUN Creatinine Estim Creat Clear Calc Est GFR (MDRD) Af Amer Est GFR (MDRD) Non-Af BUN/Creatinine Ratio Glucose Calcium Total Bilirubin AST ALT Alkaline Phosphatase Total Protein Albumin Globulin Albumin/Globulin Ratio Urine Color Yellow Urine Clarity Clear Urine pH 6.0 Ur Specific Hortense 1.010 Urine Protein Negative Urine Glucose (UA) Normal Urine Ketones Negative Urine Occult Blood Negative Urine Nitrite Negative Urine Bilirubin Negative Urine Urobilinogen Normal Ur Leukocyte Esterase Negative Urine RBC 0 SEEN Urine WBC 0 SEEN Ur Squamous Epith Cells 0 SEEN Urine Bacteria 0 SEEN Urine Mucus 0 SEEN Urine Opiates Screen Urine Methadone Screen Ur Barbiturates Screen Ur Phencyclidine Scrn Ur Amphetamines Screen MDMA (Ecstasy) Screen U Benzodiazepines Scrn Urine Cocaine Screen U Cannabinoids Screen Ur Drug Screen Comment Radiography Diagnostic Testing: Clinical Impression(s) from Imaging Studies Brain CT 01/15/22 19:49 IMPRESSION: No evidence for obstructive hydrocephalus mass or acute bleed with findings unchanged since prior exam. Electronically Signed: Fidel Cartwright MD at 22:54 EDT Reading Location ID and State: [facility] / [place] , Service support , Discharge Plan Triage Chief Complaint: General Illness ED Provider: Tera Kearns Dx/Rx/DC Orders Instructions: Functional Movement Disorders, ED Anxiety Reaction Prescriptions: No Action Humira 10 mg/0.2 mL Syringe Kit 40 mg SUBCUT X1 Rx Instructions: once every 2 weeks methotrexate sodium 2.5 mg tablet 15 mg PO QWEEK Label Comments: TAKE 6 TABLETS BY MOUTH EVERY WEEK buprenorphine 10 mcg/hour patch weekly 10 patch topical QWEEK Label Comments: APPLY 1 PATCH TO THE SKIN SURFACE WEEKLY Primary Care Provider: Jericho Nieves Referrals: Jericho Nieves MD [Primary Care Provider] - Disposition Disposition: Home, Self Care
[2022-01-15 20:40] LABS: Absolute Lymphocyte Count 1.42 X10^3/uL (0.83-4.51); Absolute Neutrophil Count 5.6 X10^3/uL (2.0-7.7); Basophil# 0.05 X10^3/uL; Basophil% 0.7 % (0-1); Eosinophil# 0.09 X10^3/uL; Eosinophils% 1.2 % (0-5); Hemoglobin 13.4 g/dL (12.0-15.0); Lymphocyte # 1.42 X10^3/ul (0.83-4.51); Lymphocyte % 18.7 % (19-41); Mean Corp Hgb Conc 34.4 g/dL (32-36); Mean Corpuscular Hgb 33.7 pg (27.0-32.0); Mean Platelet Vol. 10.1 fl (6.2-12.0); Monocyte# 0.36 X10^3/uL; Monocyte% 4.7 % (0-10); NRBC Flagged by Analyzer 0 % (0-5); Neutrophil # 5.63 X10^3/uL (2.7-7.7); Neutrophil % 74.3 % (47-70); Platelet Count 283 K/mm3 (150-450); RBC Distribution Width CV 14.3 % (11.6-14.6); RBC Distribution Width SD 51.3 fl (35.1-43.9); Red Blood Count 3.98 M/mm3 (4.2-5.4); White Blood Count 7.6 K/mm3 (4.4-11.0)
[2022-01-15 21:08] LABS: ALB/GLOB Ratio 1.1 RATIO (0.9-2.4); AST(SGOT) 29 U/L (15-37); Alanine Aminotransfer ALT/SGPT 46 U/L (13-56); Albumin, Serum 3.3 g/dL (3.2-5.0); Alkaline Phosphatase 88 U/L (45-117); Anion Gap 4 (5-15); BUN 9 mg/dL (7-18); BUN/Creat Ratio 8.2 RATIO (10-20); Calcium,Total 8.9 mg/dL (8.5-10.1); Chloride 110 mmol/L (98-107); EST Glomerular Filtration Rate 55 mL/min (>60); Est Glom Filt Rate - Afr Amer 66 mL/min (>60); Estimated Creatinine Clearance 43.61 ml/min; Glucose 111 mg/dL (74-106); Potassium 3.9 mmol/L (3.5-5.1); Protein, Total 6.3 g/dL (6.4-8.2); Sodium Level 142 mmol/L (136-145)
[2022-01-15 21:13] LABS: Bacteria 0 SEEN /hpf (None Seen); Mucous, Urine 0 SEEN /hpf (<or=2+); Red Blood Cells-Urine 0 SEEN /hpf (0-5); Squamous Epithelial Cells - UA 0 SEEN /hpf (5-10); White Blood Cells 0 SEEN /hpf (0-5)
[2022-01-15 21:18] LABS: Color, Urine Yellow (Yellow); Glucose, Dipstick Normal (Normal); Ketone-Dipstick Negative (Negative); Leukocyte Esterase-Dipstick Negative /ul (Negative); Nitrite-Dipstick Negative (Negative); Occult Blood-Urine Negative /ul (Negative); Protein-Dipstick Negative (Negative); Urine Bilirubin Dipstick Negative (Negative); Urine Clarity Clear (Clear); Urine Urobilinogen Normal (Normal)
[2022-01-15 22:20] LABS: Amphetamine Urine VISTA NEGATIVE (<1000 ng/mL); Barbiturate Urine VISTA NEGATIVE (< 200 ng/mL); Benzodiazepine Urine VISTA POSITIVE (< 200 ng/mL); Cocaine Urine VISTA NEGATIVE (< 300 ng/mL); Ecstacy Urine VISTA NEGATIVE (< 500 ng/mL); Methadone Urine VISTA NEGATIVE (< 300 ng/mL); PCP Urine VISTA NEGATIVE (< 25 ng/mL); THC Urine VISTA NEGATIVE (< 50 ng/mL); Vista UDS pH Range 6
== END 2022-01-15 23:34 | disposition home or self-care (01) ==
PROVIDERS: Emergency Provider Student in an Organized Health Care Education/Training Program; PCP Internal Medicine; Visit Provider Student in an Organized Health Care Education/Training Program
DX: R25.1 Tremor, unspecified (principal); F31.9 Bipolar disorder, unspecified; F41.9 Anxiety disorder, unspecified; E78.00 Pure hypercholesterolemia, unspecified; F17.210 Nicotine dependence, cigarettes, uncomplicated; G24.01 Drug induced subacute dyskinesia; G47.30 Sleep apnea, unspecified; Z99.89 Dependence on other enabling machines and devices
CPT/HCPCS: 70450; 80053; 80307; 81001; 85025; 99283; A4216

== ENCOUNTER 2022-03-17 15:42 | Emergency (ER) | payer MEDICARE, MEDICAID, SELFPAY ==
[2022-03-17 15:43] VITALS: BP 155/78; PULSE 78; RESP 16; TEMP 36.9; O2SAT 99; BMI 50.2
--- NOTE | 2022-03-17 15:54 | EX.ED.UPPERE ---
HPI History of Present Illness HPI Narrative: Patient presents with pain in her left arm that has been getting worse for the past 1-1/2 weeks. Patient states it is gradually getting worse. Patient states she feels lumps in her left arm. Patient is concerned that these could be blood clots in her arm. Patient states the pain is gradually gotten worse. Patient states it has been constant. Patient describes her pain as sharp. Patient states nothing makes it worse and nothing makes it better. Patient denies any paresthesias or weakness. Patient denies any trauma or injury. Chief Complaint: Upper Extremity Injury Informant: patient Onset/Context/Timing Onset: Weeks (1-05/07) Context: Gradual Onset Timing: Continuous Quality of Pain: Sharp Location: Left arm and forearm Worsened by: Nothing Relieved by: Nothing Associated Symptoms Associated Symptoms: Negative for Parasthesia, Weakness or Loss of Funtion PFSH PFSH Medical History Anxiety Back pain Bipolar disorder Bronchitis CPAP (continuous positive airway pressure) dependence Depression Hiatal hernia High cholesterol History of stress test Migraines Post-menopausal Seizures Sleep apnea Smoker Home Medications adalimumab 10 mg/0.2 mL subcutaneous syringe kit 40 mg subcut X1 08/21/21 [History Last Taken Unknown] buprenorphine 10 mcg/hour weekly transdermal patch 10 patch topical QWEEK 01/15/22 [History Last Taken Unknown] methotrexate sodium 2.5 mg tablet 15 mg PO QWEEK 01/15/22 [History Last Taken Unknown] Allergy/AdvReac Type Severity Reaction Status Date / Time tramadol HCl [From Ultram] Allergy Rash Verified 03/17/22 15:42 cariprazine [From Vraylar] AdvReac Other Verified 03/17/22 15:42 codeine AdvReac Vomiting Verified 03/17/22 15:42 hydromorphone [From Dilaudid] AdvReac Nausea/Vom/ Verified 03/17/22 15:42 Diarrhea oxycodone HCl [From Percocet] AdvReac Vomiting Verified 03/17/22 15:42 quetiapine [From Seroquel] AdvReac Other Verified 03/17/22 15:42 Surgical History History of back surgery History of carpal tunnel surgery Hx of knee surgery Hx of neck surgery Social History Smoking Status: Current every day smoker tobacco type: cigarettes ROS ROS ED Constitutional Constitutional ED: Denies chills or fever(s) Eyes Eyes: Denies blurry vision or change in vision ENT ENT ED: Denies rhinorrhea or sore throat Cardiovascular Cardiovascular: Denies chest pain or palpitations Respiratory/Chest Respiratory/Chest: Denies cough or dyspnea Gastrointestinal Gastrointestinal: Denies nausea or vomiting Genitourinary Genitourinary ED: Denies dysuria or hematuria Musculoskeletal Musculoskeletal: Reports back pain and neck pain Integumentary Reports rash; Denies abscess Neurologic Neurologic: Denies headache(s) or weakness Allergic/Immunologic Allergic/Immunologic ED: Denies mouth swelling or urticaria EXAM Physical Exam Const Vital Signs: 03/17/22 15:43 Temperature 98.4 F Temperature Source Temporal Pulse Rate 78 Respiratory Rate 16 Blood Pressure 155/78 H Blood Pressure Mean 103 Pulse Ox 99 Oxygen Delivery Method Room Air Positive well nourished, well developed and obese General Appearance ED: well developed and NAD Nutritional Appearance: obese HEENT Reports moist mucous membranes Extremity Extremity Narrative: There is tenderness and mild edema over the medial aspect of the left distal arm, elbow, and proximal forearm. There is no erythema or warmth. There is no induration. There is no fluctuance. There is full range of motion. Radial pulses are equal bilaterally. Sensation was intact to light touch in the radial, median, and ulnar areas. Strength is 5/5 in the radial, median, and ulnar areas. Neuro oriented x3, CN's II-XII intact bilaterally, moves all extremities, no focal motor deficits and no sensory deficits noted Sensorium / Orientation: alert Motor Exam: strength 5/5 throughout Psych mental status grossly normal MDM MDM MDM Narrative Medical decision making narrative: My suspicion for upper extremity DVT is low. Patient was advised that we are unable to do venous Dopplers at this time. Patient will be given a order for an outpatient venous duplex to be done. I do not feel patient needs to be started on anticoagulation since the risk for PE from an upper extremity DVT is very low. Patient understands and is agreeable with the plan. All questions were answered. Discharge Plan Triage Chief Complaint: Upper Extremity Injury ED Provider: Gen Lama Dx/Rx/DC Orders Clinical Impression: Left arm pain Instructions: ED Pain, Acute, Uncertain Cause Prescriptions: No Action Humira 10 mg/0.2 mL Syringe Kit 40 mg SUBCUT X1 Rx Instructions: once every 2 weeks methotrexate sodium 2.5 mg tablet 15 mg PO QWEEK Label Comments: TAKE 6 TABLETS BY MOUTH EVERY WEEK buprenorphine 10 mcg/hour patch weekly 10 patch topical QWEEK Label Comments: APPLY 1 PATCH TO THE SKIN SURFACE WEEKLY Other Ambulatory Orders: Venous Duplex US, Unilateral (Stat) Facility: [facility] - Location: [facility] Ordered By: Dr. Gen Lama Primary Care Provider: Jericho Nieves Referrals: Jericho Nieves MD [Primary Care Provider] - 3-5 Days Disposition Disposition: Home, Self Care
== END 2022-03-17 16:27 | disposition home or self-care (01) ==
LOC: ED 16:03
PROVIDERS: Emergency Provider Emergency Medicine; PCP Internal Medicine; Visit Provider Emergency Medicine
DX: M79.602 Pain in left arm (principal); F17.210 Nicotine dependence, cigarettes, uncomplicated; E78.00 Pure hypercholesterolemia, unspecified
CPT/HCPCS: 99282

== ENCOUNTER → 2022-03-18 | Outpatient (CLI) | payer MEDICARE, MEDICAID, SELFPAY ==
--- NOTE | 2022-03-19 09:55 | VDUE_ITS ---
Version 2 Reason For Study: LUE PAIN Right Proximal Left Proximal Right subclavian vein is spontaneous, widely Left jugular vein is spontaneous, widely patent, phasic, with no intraluminal patent, phasic, with no intraluminal echogenicity noted. echogenicity noted. Left Arm Left axillary vein is spontaneous, patent, phasic, competent, compressible and demonstrates augmentation. Left brachial vein is compressible. Left cephalic vein is compressible. LT Basilic V is compressible at wrist, distal forearm and prox forearm before joining Axillary V. LT Basilic V from prox upper arm to distal forearm is NON-COMPRESSIBLE WITH NO FLOW NOTED IN VESSEL. Left Lower Arm Left radial vein is compressible. Left ulnar vein is compressible. Patient Safety Spoke with Dr. Hampton in ED. PT advised to use warm compresses 3 x a day and call PCP Dr. Nieves Saturday for follow up visit. VL/Venous Duplex US, Unilateral Interpretation Summary Acute superficial vein thrombosis visualized in the left basilic vein. Deep veins of the left upper extremity are patent and compressible segmentally. There is no evidence of deep vein thrombosis. Ordering Physician: Gen Lama Referring Physician: Gen Lama Performed By: Erin Car, JOSE, RVT ???
== END | disposition home or self-care (01) ==
LOC: US 11:55
PROVIDERS: PCP Internal Medicine; Referring Provider Emergency Medicine; Visit Provider Emergency Medicine
DX: M79.602 Pain in left arm (principal)
CPT/HCPCS: 93971

== ENCOUNTER 2022-04-04 23:31 | Inpatient (IN) | payer MEDICARE, MEDICAID, SELFPAY ==
[2022-04-04 23:32] VITALS: BP 161/88; PULSE 85; RESP 16; TEMP 35.7; O2SAT 98; BMI 50.0
[2022-04-04 23:42] VITALS: BP 161/88; PULSE 87; O2SAT 97
--- NOTE | 2022-04-04 23:45 | RAD_ITS ---
INDICATION: chest pain EXAMINATION/TECHNIQUE: X-RAY - portable upright AP chest x-ray COMPARISON: 06/05/2018 FINDINGS: LINES/DEVICES: None. LUNGS: Hazy bibasilar air space opacities without consolidation or pleural effusion. MEDIASTINUM AND CARDIOVASCULAR STRUCTURES: Cardiac silhouette not enlarged. Central airways and mediastinal contour are unremarkable. BONES AND SOFT TISSUES: No acute changes. RAD/Chest 1 View (Portable) IMPRESSION: Bibasilar infiltrates suspicious for pneumonia including atypical or viral pneumonias. Recommend short-term follow-up for resolution. Electronically Signed: Fausto Shah MD at 0:28 EST ,
--- NOTE | 2022-04-04 23:45 | EKG12_ITS ---
Test Reason : CP Blood Pressure : / mmHG Vent. Rate : 100 BPM Atrial Rate : 100 BPM P-R Int : 182 ms QRS Dur : 106 ms QT Int : 340 ms P-R-T Axes : 053 078 093 degrees QTc Int : 438 ms AGE AND GENDER SPECIFIC ECG ANALYSIS Normal sinus rhythm ST elevation consider inferior injury or acute infarct ACUTE IN / STEMI Abnormal ECG Reconfirmed by BROCK CARRANZA, AMIE ([id number]), food expeditor CORDELIA SCOTT ([id number]) on 04/06/2022 6:00:04 AM Referred By: Shalini Savage Confirmed By:AMIE GUTIÉRREZ MD
[2022-04-04] MEDS: Heparin Injection (Vial) 5,000 UNIT/ML VIAL 4000 UNIT IV (23:49)
--- NOTE | 2022-04-04 23:49 | ED.VIS.CHEST ---
HPI History of Present Illness Chief Complaint: Chest Pain Informant: patient and spouse/S.O. Onset/Context/Timing Onset: Today Narrative Narrative: Intermittent chest pain for the past 8 hours. States pressure and sharp sensations. Bilateral arm pain states in her wrist region. No dyspnea or nausea. History of diabetes and hyperlipidemia and tobacco. Father had [place] however greater than 60 years old. No history of heart caths in the past. No history of cardiac stents. Denies any bleeding disorders denies any platelet dysfunction. Her second other patient had a syncopal episode 3 hours ago he had to turn her on the side she spontaneously awaken. Prior Similar Symptoms: No PFSH PFSH Medical History Anxiety Back pain Bipolar disorder Bronchitis CPAP (continuous positive airway pressure) dependence Depression Hiatal hernia High cholesterol History of stress test Migraines Post-menopausal Seizures Sleep apnea Smoker Home Medications adalimumab 10 mg/0.2 mL subcutaneous syringe kit 40 mg subcut X1 08/21/21 [History Last Taken Unknown] buprenorphine 10 mcg/hour weekly transdermal patch 10 patch topical QWEEK 01/15/22 [History Last Taken Unknown] methotrexate sodium 2.5 mg tablet 15 mg PO QWEEK 01/15/22 [History Last Taken Unknown] lansoprazole 30 mg capsule,delayed release 30 mg PO DAILY 04/04/22 [History Last Taken Unknown] Allergy/AdvReac Type Severity Reaction Status Date / Time tramadol HCl [From Ultram] Allergy Rash Verified 04/05/22 00:13 cariprazine [From Vraylar] AdvReac Other Verified 04/05/22 00:13 codeine AdvReac Vomiting Verified 04/05/22 00:13 hydromorphone [From Dilaudid] AdvReac Nausea/Vom/ Verified 04/05/22 00:13 Diarrhea oxycodone HCl [From Percocet] AdvReac Vomiting Verified 04/05/22 00:13 quetiapine [From Seroquel] AdvReac Other Verified 04/05/22 00:13 Family History Other Heart disease Surgical History History of back surgery History of carpal tunnel surgery Hx of knee surgery Hx of neck surgery Social History Smoking Status: Current every day smoker tobacco type: cigarettes EXAM Physical Exam Const Vital Signs: 04/04/22 23:32 04/04/22 23:35 04/04/22 23:42 Temperature 96.3 F L Temperature Source Temporal Pulse Rate 85 Respiratory Rate 16 Respiratory Effort Normal Non-Labored Blood Pressure 161/88 H 161/88 H Blood Pressure Mean 112 Pulse Ox 98 Oxygen Delivery Method Room Air Heart Score History: Highly Suspicious ECG: Significant ST-Depression Age: >45 - <65 years Risk Factors: >/= 3 Risk Factors or History of CAD Troponin: >/=3 x Normal Limit Score: 9 MDM MDM MDM Narrative Medical decision making narrative: EKG concerns for inferior STEMI with reciprocal changes. STEMI was activated, I discussed with Dr. Savaeg EKG was sent to him. She is given aspirin Brilinta heparin. Shortly after I was called back to the room patient syncopized unresponsive on the monitor appeared to be V. fib CPR started immediately. AP pads were placed she was cardioverted at 200 J. Continue to compressions she awoke and had a pulse. She is ordered for amiodarone with a drip. I updated the educational manager. Labs are pending. Awaiting to go to the Direct Response Consultant. 0002: Reported patient require additional defibrillation due to V. fib. See awaking immediately. Blood pressure heart rate remained stable. She was given amiodarone bolus awaiting for the drip to be sent down to get started. 0017: Patient being taken to the Direct Response Consultant she is awake, vitals are stable currently. Troponin returned at 676. 1 view chest x-ray reviewed by myself read by radiology had concerning bilateral infiltrates. However she denied any upper respiratory symptoms. Lab Data Attestation: I reviewed the patient's lab results. Labs: Laboratory Results - last 24 hr 04/04/22 04/04/22 04/04/22 23:50 23:50 23:50 WBC 11.3 H RBC 4.65 Hgb 15.4 H Hct 46.1 MCV 99.1 H MCH 33.1 H MCHC 33.4 RDW Std Deviation 51.6 H RDW Coeff of Erlinda 14.3 Plt Count 307 MPV 9.9 Immature Gran % (Auto) 0.400 Neut % (Auto) 76.5 H Lymph % (Auto) 16.9 L Lipscomb % (Auto) 4.3 Eos % (Auto) 1.5 Baso % (Auto) 0.4 Absolute Neuts (auto) 8.6 H Absolute Lymphs (auto) 1.91 Nucleated RBC % 0 PT 12.9 INR 1.0 APTT 22.5 L Sodium 140 Potassium 4.3 Chloride 105 Carbon Dioxide 28.0 Anion Gap 7 BUN 10 Creatinine 1.14 H Estim Creat Clear Calc 43.58 Est GFR (MDRD) Af Amer 63 Est GFR (MDRD) Non-Af 52 L BUN/Creatinine Ratio 8.8 L Glucose 143 H Calcium 9.5 Troponin I High Sens 676 H* Radiography Diagnostic Testing: Clinical Impression(s) from Imaging Studies Chest X-Ray 04/04/22 23:45 IMPRESSION: Bibasilar infiltrates suspicious for pneumonia including atypical or viral pneumonias. Recommend short-term follow-up for resolution. Electronically Signed: Fausto Shah MD at 0:28 EST , EKG Initial EKG: Attestation: I personally reviewed and interpreted this EKG as follows: Comments: Sinus rate of 100, ST elevations inferior leads with reciprocal was on the lateral leads. Critical Care Time Critical Care Time: Yes Critical care time (excluding procedures): 30-74 minutes, Discussing w/Patient &/or Family/Supervisor Intelligence Analyst, Discussing w/Consultants, Arranging Admission or Transfer, Performing Direct Patient Care at Bedside and - (35 minutes) Discharge Plan Dx/Rx/DC Orders Clinical Impression: ST elevation (STEMI) myocardial infarction, Cardiac arrest with ventricular fibrillation, HLD (hyperlipidemia), Diabetes mellitus, type II, Chest pain Disposition Disposition: Acute Care [facility] Discharge Date/Time: 04/05/22 00:17
[2022-04-04] MEDS: Aspirin 81 MG TAB.CHEW 324 MG PO (23:56)
[2022-04-04] MEDS: TICAGRELOR 90 MG TABLET 180 MG PO (23:56)
--- NOTE | 2022-04-04 23:57 | HP.PCM.HOS_ITS ---
HPI - General General Date of Admission: 04/04/22 Date of Service: 04/04/22 Chief Complaint: chest pain HPI Narrative JUAN EAGLE, is a 57 F with a significant history with a significant history of hyperlipidemia; diabetes mellitus who presents to the emergency department with excruciating substernal sharp chest pain that started about 8 hours before presentation. Maximum intensity of pain is 10 out of 10. At times it eases up. The pain is nonradiating. The pain worsens with lying flat. She denies any ameliorating factors to the pain. She reports an episode of syncope about 3 hours before she came to the emergency department. At the emergency department patient had a pre-syncopal episode followed by syncope and then a V. fib arrest for which ACLS with chest compressions; and defibrillation was done. There were successful resuscitation. Amiodarone bolus and drip was ordered to be given at the ED. Also patient had a second episode of V. fib arrest and she was defibrillated. ROSC was achieved. Patient was sent to the cardiac lab. [facility] Medical History Anxiety Back pain Bipolar disorder Bronchitis CPAP (continuous positive airway pressure) dependence Depression Hiatal hernia High cholesterol History of stress test Migraines Post-menopausal Seizures Sleep apnea Smoker Home Medications adalimumab 10 mg/0.2 mL subcutaneous syringe kit 40 mg subcut X1 08/21/21 [History Last Taken Unknown] buprenorphine 10 mcg/hour weekly transdermal patch 10 patch topical QWEEK 01/15/22 [History Last Taken Unknown] methotrexate sodium 2.5 mg tablet 15 mg PO QWEEK 01/15/22 [History Last Taken Unknown] lansoprazole 30 mg capsule,delayed release 30 mg PO DAILY 04/04/22 [History Last Taken Unknown] Allergy/AdvReac Type Severity Reaction Status Date / Time tramadol HCl [From Ultram] Allergy Rash Verified 04/05/22 00:13 cariprazine [From Vraylar] AdvReac Other Verified 04/05/22 00:13 codeine AdvReac Vomiting Verified 04/05/22 00:13 hydromorphone [From Dilaudid] AdvReac Nausea/Vom/ Verified 04/05/22 00:13 Diarrhea oxycodone HCl [From Percocet] AdvReac Vomiting Verified 04/05/22 00:13 quetiapine [From Seroquel] AdvReac Other Verified 04/05/22 00:13 Family History Other Heart disease Surgical History History of back surgery History of carpal tunnel surgery Hx of knee surgery Hx of neck surgery Social History Smoking Status: Current every day smoker tobacco type: cigarettes ROS ROS Narrative Pertinent positives and pertinent negatives as noted in HPI. All other systems were reviewed and are negative Vital Signs Vital Signs Vital Signs: 04/04/22 23:32 04/04/22 23:35 04/04/22 23:42 Temperature 96.3 F L Temperature Source Temporal Pulse Rate 85 Respiratory Rate 16 Respiratory Effort Normal Non-Labored Blood Pressure 161/88 H 161/88 H Blood Pressure Mean 112 Pulse Ox 98 Oxygen Delivery Method Room Air Weight Weight: 124 kg Body Mass Index (BMI) 50.0 Physical Exam Narrative Physical exam: General: Well-nourished, well-developed. Head: Normocephalic, atraumatic, no tenderness Eyes: Vision is grossly intact. EOMI ENT, no trauma, moist mucous membranes, no rhinorrhea Neck: Nontender, full range of motion, no spinal tenderness, deformities, step- off CVS: Regular rate and rhythm. S1-S2 present. No murmur, gallop or rub. Respiratory : clear to auscultation bilaterally, chest wall nontender, no wheezing Abdomen: Soft, nontender, nondistended, normal bowel sounds, no masses : Deferred Back: Nontender, no CVA tenderness, no midline spinal tenderness, deformities, step-offs Extremities: Nontender full range of motion, no trauma Skin: Normal color, no trauma, abrasions Neuro: Alert, oriented, cranial nerves II through XII grossly intact. Psychiatry: Anxious. Not depressed. Results Lab / Micro Data Result Diagrams: 04/05/22 03:05 04/05/22 03:05 Assessment & Plan Assessment/Plan (1) ST elevation (STEMI) myocardial infarction: (2) Cardiac arrest: (3) Diabetes mellitus, type II: QUALIFIERS: Diabetes mellitus skilled nursing insulin use: without skilled nursing use Diabetes mellitus complication status: with unspecified complications Qualified Code(s): E11.8 - Type 2 diabetes mellitus with unspecified complications PLAN: Plan ST elevation [place] Giving full dose aspirin, Brilinta and heparin bolus at emergency department. Troponin returned to be 676. EKG was visualized and independently interpreted. EKG with inferior ST elevations with reciprocal loss. senior commissary agent consulted. Sent to Steel Division Supervisor. Per journeyman meat cutter notes that was subtotal occlusion in the mid left circumflex; successful percutaneous intervention was done with balloon angioplasty and placement of a drug-eluting stent. There was also 90% lesion in the proximal right coronary artery. Patient also treated with drug-eluting stents. 70% Prox LAD lesion which per cardiology will undergo staged intervention. Daily aspirin and Brilinta initiated. High intensity statin initiated. Check lipid panel. Heart failure with reduced ejection fraction Chest x-ray image was visualized and independently interpreted. I agree with their interpretation of bilateral infiltrates. Check echocardiogram EF from cath 40%; posterior akinesis. Patient started on JOLANTA inhibitor and beta-blockers. Diabetes mellitus On home Trulicity. Blood glucose is stable. Accu-Cheks ordered. V. fib arrest Continue amiodarone drip started emergency department. Leukocytosis White count of 11.3. > 14.0. Doubt pneumonia. Chest x-ray infiltrates likely from CHF. Trend CBC. Morbid Obesity: BMI: 50.4 kg/m?. Complicates care. Lifestyle modification recommended. DVT prophylaxis: Received therapeutic dose of heparin on presentation.
[2022-04-04 23:58] LABS: Absolute Lymphocyte Count 1.91 X10^3/uL (0.83-4.51); Absolute Neutrophil Count 8.6 X10^3/uL (2.0-7.7); Basophil# 0.05 X10^3/uL; Basophil% 0.4 % (0-1); Eosinophil# 0.17 X10^3/uL; Eosinophils% 1.5 % (0-5); Hematocrit 46.1 % (37-47); Hemoglobin 15.4 g/dL (12.0-15.0); Lymphocyte # 1.91 X10^3/ul (0.83-4.51); Lymphocyte % 16.9 % (19-41); Mean Corp Hgb Conc 33.4 g/dL (32-36); Mean Corpuscular Hgb 33.1 pg (27.0-32.0); Mean Corpuscular Volume 99.1 fL (81-99); Mean Platelet Vol. 9.9 fl (6.2-12.0); Monocyte# 0.49 X10^3/uL; Monocyte% 4.3 % (0-10); NRBC Flagged by Analyzer 0 % (0-5); Neutrophil # 8.62 X10^3/uL (2.7-7.7); Neutrophil % 76.5 % (47-70); Platelet Count 307 K/mm3 (150-450); RBC Distribution Width CV 14.3 % (11.6-14.6); RBC Distribution Width SD 51.6 fl (35.1-43.9); Red Blood Count 4.65 M/mm3 (4.2-5.4); White Blood Count 11.3 K/mm3 (4.4-11.0)
[2022-04-05] VITALS (39 sets, daily range): BP systolic 115–179; BP diastolic 64–121; PULSE 58–89; RESP 15–35; TEMP 35.7–37.1; O2SAT 87–99; BMI 50.3
[2022-04-05 00:08] LABS: Prothrombin Time (Protime)PT. 12.9 SECONDS (11.7-14.9)
[2022-04-05] MEDS: Amiodarone 360 MG in Dextrose 5% Viaflo Bag 192.8 ML 33.3 MG CONT INF (00:08)
[2022-04-05 00:09] LABS: Partial Thromboplast Time 22.5 Seconds (24.1-36.2)
[2022-04-05 00:19] LABS: Anion Gap 7 (5-15); BUN 10 mg/dL (7-18); BUN/Creat Ratio 8.8 RATIO (10-20); Calcium,Total 9.5 mg/dL (8.5-10.1); Chloride 105 mmol/L (98-107); Creatinine, Serum 1.14 mg/dL (0.55-1.02); EST Glomerular Filtration Rate 52 mL/min (>60); Est Glom Filt Rate - Afr Amer 63 mL/min (>60); Estimated Creatinine Clearance 43.58 ml/min; Glucose 143 mg/dL (74-106); Potassium 4.3 mmol/L (3.5-5.1); Sodium Level 140 mmol/L (136-145); Troponin-I HS 676 pg/mL (3.0-54.0)
--- NOTE | 2022-04-05 00:19 | ED.RN ---
Pt arrives to ED with complaints of chest pain, pt reports passing out at home. Spouse states she wasnt breathing right and she didnt look right. Pt found to be a STEMI and alert was called. At 2350 pt states i feel like im going to pass out Pt went unresponsive with snoring respirations. Staff could not palpate a pulse, KATARINA DEGROOT called, high quality CPR started. Dr HANDLEY at bedside orders defibrillation at 200j. Pt shocked and immediately wakes up asking what happened. Pt remains awake and talking maintaining her airway. At 2359 Pt states she feels like she is going to pass out, goes into Vfib and is unresponsive. Pt defibrillated at 200j at 0000. Pt again immediately wakes up talking and states did i pass out again Pt complaining of 10/10 chest pain. Pt medicated per JUL. Over head page cathode washer ready at 0017 and patient departs ED at that time. Spouse at bedside the entire time and is escorted cathode washer waiting room.
--- NOTE | 2022-04-05 01:44 | ECHOD_ITS ---
Reason For Study: CHEST PAIN, CARDIAC ARREST Procedure This was a 2D Doppler, Color Flow transthoracic echocardiogram. Exam performed portable in ICU/CCU. Left Ventricle Normal size and thickness. The left ventricular ejection fraction is 60 %. Stage 3 diastolic dysfunction. Basal to mid posterior severe hypokinesis. Lateral hypokinesis. Right Ventricle Mild hypertrophy of the right ventricle. Normal systolic function. Atria The left and right atria are normal. Mitral Valve Mild (1+) mitral valve insufficiency. Tricuspid Valve Mild tricuspid valve insufficiency. Pulmonary artery systolic pressure is 43 mmHg. Mild pulmonary hypertension. Aortic Valve Aortic sclerosis, no stenosis. Mild (1+) aortic valve insufficiency. Pulmonic Valve The pulmonic valve is not well visualized. Great Vessels Normal sized aortic root. MMode/2D Measurements & Calculations LVIDd: 5.1 cm IVSd: 0.99 cm Ao root diam: 3.0 cm LVIDs: 3.6 cm LVPWd: 1.0 cm RVDd: 2.7 cm FS: 28.8 % LAV(MOD-bp): 34.4 ml LVAd ap4: 26.3 cm2 SV(MOD-sp4): 46.6 ml LAV(MOD-bp) Indexed: 15.9 ml/m2 LVLd ap4: 7.4 cm LAV(MOD-sp2): 34.8 ml EDV(MOD-sp4): 77.0 ml LAV(MOD-sp4): 32.7 ml EDV(sp4-el): 79.2 ml LVAs ap4: 15.1 cm2 LVLs ap4: 6.3 cm ESV(MOD-sp4): 30.4 ml ESV(sp4-el): 30.8 ml EF(MOD-sp4): 60.5 % EF(sp4-el): 61.1 % SV(sp4-el): 48.4 ml LA dimension(2D): 3.7 cm LA A4 area: 14.2 cm2 RA A4 area: 12.5 cm2 Time Measurements MV dec time: 0.21 sec Doppler Measurements & Calculations MV E max wilmer: 114.2 cm/sec Lat Peak E' Wilmer: 6.1 cm/sec Med Peak E' Wilmer: 6.8 cm/sec MV A max wilmer: 43.4 cm/sec E/E' lat: 18.9 E/E' med: 16.9 MV E/A: 2.6 Ao V2 max: 169.6 cm/sec LV V1 max: 98.0 cm/sec PA V2 max: 78.1 cm/sec Ao max P.5 mmHg LV V1 max P.8 mmHg TR max wilmer: 309.0 cm/sec TR max P.2 mmHg ECHO/Echo Complete Interpretation Summary The left ventricular ejection fraction is 60 %. Basal to mid posterior severe hypokinesis. Lateral hypokinesis. Stage 3 diastolic dysfunction. Mild hypertrophy of the right ventricle. Mild tricuspid valve insufficiency. Mild pulmonary hypertension. Mild (1+) aortic valve insufficiency. Mild (1+) mitral valve insufficiency. Ordering Physician: Shalini Savage Referring Physician: ALICJA TINOCO Performed By: Michelle Mccloud, JOSE
--- NOTE | 2022-04-05 01:50 | CON.PCM.CA_ITS ---
Assessment & Plan Assessment/Plan (1) ST elevation (STEMI) myocardial infarction: PLAN: Emergent coronary angiography revealed subtotal occlusion in the mid left circumflex coronary artery. Successful percutaneous intervention was done with balloon angioplasty and placement of a drug-eluting stent. Patient was also noted to have about 90% lesion in the proximal right coronary artery. This was also treated using a drug-eluting stent. Excellent results were noted. Continue aspirin lifelong. Brilinta for at least 12 months. Risk factor modification. (2) Cardiac arrest with ventricular fibrillation: PLAN: In the setting of #1 above. Reperfused. DC amiodarone. Start on beta- blockers. ICU monitoring. (3) Coronary artery disease: PLAN: See #1 above. For staged PCI to LAD possibly as an outpatient. (4) Cardiomyopathy: PLAN: Secondary to #1 above. Start on beta-blockers. Start on JOLANTA inhibitors. (5) HLD (hyperlipidemia): PLAN: Atorvastatin. (6) Obesity (BMI 30-39.9): PLAN: Lose weight. (7) Diabetes mellitus, type II: QUALIFIERS: Diabetes mellitus senior care insulin use: without intermission coordinator use Diabetes mellitus complication status: with unspecified complications Qualified Code(s): E11.8 - Type 2 diabetes mellitus with unspecified complications PLAN: As per internal medicine. HPI Consult Data Date of Consult: 04/05/22 HPI Narrative Reason for Consultation: STEMI HPI Narrative: Patient developed chest pain about 8 hours prior to presentation. She had a syncopal episode at home. In the emergency room, she was noted to have EKG changes consistent with acute inferior posterior myocardial infarction. She had a V. fib cardiac arrest while in the emergency room. She was successfully defibrillated and started on amiodarone. PFSH Medical History Anxiety Back pain Bipolar disorder Bronchitis CPAP (continuous positive airway pressure) dependence Depression Hiatal hernia High cholesterol History of stress test Migraines Post-menopausal Seizures Sleep apnea Smoker Home Medications adalimumab 10 mg/0.2 mL subcutaneous syringe kit 40 mg subcut X1 08/21/21 [History Last Taken Unknown] buprenorphine 10 mcg/hour weekly transdermal patch 10 patch topical QWEEK 01/15/22 [History Last Taken Unknown] methotrexate sodium 2.5 mg tablet 15 mg PO QWEEK 01/15/22 [History Last Taken Un known] lansoprazole 30 mg capsule,delayed release 30 mg PO DAILY 04/04/22 [History Last Taken Unknown] Allergy/AdvReac Type Severity Reaction Status Date / Time tramadol HCl [From Ultram] Allergy Rash Verified 04/05/22 00:13 cariprazine [From Vraylar] AdvReac Other Verified 04/05/22 00:13 codeine AdvReac Vomiting Verified 04/05/22 00:13 hydromorphone [From Dilaudid] AdvReac Nausea/Vom/ Verified 04/05/22 00:13 Diarrhea oxycodone HCl [From Percocet] AdvReac Vomiting Verified 04/05/22 00:13 quetiapine [From Seroquel] AdvReac Other Verified 04/05/22 00:13 Family History (Updated 04/05/22 @ 00:[address] Lorenzo Duque MD) Other Heart disease Surgical History History of back surgery History of carpal tunnel surgery Hx of knee surgery Hx of neck surgery Social History Smoking Status: Current every day smoker tobacco type: cigarettes Physical Exam Narrative Obese. Mildly anxious. Heart sounds 1 and 2 are noted. Chest clear to auscultation anteriorly. Abdomen obese. Alert oriented x3. No ankle edema. Risk Stratification Risk Stratification Applicable: No Objective Data Vital Signs: Vital Signs Temp Pulse Resp BP Pulse Ox O2 Del Method O2 Flow Rate 97 F L 85 31 H 146/90 H 90 Non-Rebreather 15 04/05/22 00:13 04/05/22 00:15 04/05/22 00:15 04/05/22 00:15 04/05/22 00:15 04/05/22 00:15 04/05/22 00:15 Oxygen Flow Rate (L/min) 15 Oxygen Delivery Method Non-Rebreather Weight: 273 lb 5.971 oz Body Mass Index (BMI) 50.0 Lab / Micro Data Result Diagrams: 04/04/22 23:50 04/04/22 23:50 Labs: Laboratory Results - last 24 hr 04/04/22 23:50: WBC 11.3 H, RBC 4.65, Hgb 15.4 H, Hct 46.1, MCV 99.1 H, MCH 33.1 H, MCHC 33.4, RDW Std Deviation 51.6 H, RDW Coeff of Erlinda 14.3, Plt Count 307, MPV 9.9, Immature Gran % (Auto) 0.400, Neut % (Auto) 76.5 H, Lymph % (Auto) 16.9 L, [place] % (Auto) 4.3, Eos % (Auto) 1.5, Baso % (Auto) 0.4, Absolute Neuts (auto) 8.6 H, Absolute Lymphs (auto) 1.91, Nucleated RBC % 0 04/04/22 23:50: PT 12.9, INR 1.0, APTT 22.5 L 04/04/22 23:50: Sodium 140, Potassium 4.3, Chloride 105, Carbon Dioxide 28.0, Anion Gap 7, BUN 10, Creatinine 1.14 H, Estim Creat Clear Calc 43.58, Est GFR (MDRD) Af Amer 63, Est GFR (MDRD) Non-Af 52 L, BUN/Creatinine Ratio 8.8 L, Gluco se 143 H, Calcium 9.5, Troponin I High Sens 676 H* Cardiology Labs/Tests 04/04/22 23:50: WBC 11.3 H, RBC 4.65, Hgb 15.4 H, Hct 46.1, MCV 99.1 H, MCH 33.1 H, MCHC 33.4, Plt Count 307, MPV 9.9, Immature Gran % (Auto) 0.400, Neut % (Auto) 76.5 H, Lymph % (Auto) 16.9 L, [place] % (Auto) 4.3, Eos % (Auto) 1.5, Baso % (Auto) 0.4, Absolute Neuts (auto) 8.6 H, Nucleated RBC % 0 04/04/22 23:50: PT 12.9, INR 1.0, APTT 22.5 L 04/04/22 23:50: Sodium 140, Potassium 4.3, Chloride 105, Carbon Dioxide 28.0, Anion Gap 7, BUN 10, Creatinine 1.14 H, Est GFR (MDRD) Af Amer 63, Est GFR (MDRD) Non-Af 52 L, BUN/Creatinine Ratio 8.8 L, Glucose 143 H, Calcium 9.5 Rhythm: EKG: ECHO: Stress Test: Cardiac Cath: PCI: CT Surgery: Holter monitor: EPS: PPM: CXR: Chest CT Scan: Radiography Diagnostic Testing: Radiology Impression Chest X-Ray 04/04/22 23:45 IMPRESSION: Bibasilar infiltrates suspicious for pneumonia including atypical or viral pneumonias. Recommend short-term follow-up for resolution. Electronically Signed: Fausto Shah MD at 0:28 EST ,
--- NOTE | 2022-04-05 01:50 | CL.I_ITS ---
Patient Name: JUAN EAGLE Study Date: 04/05/2022 Performing: Shalini Savage MD Ht: 62 inches 157.48 cm : 1965 Wt: 273.37 lbs 124 kg Age: 57 Gender: female BSA: 2.18 PROCEDURE(S) PERFORMED IC16-([id number]/[id number])AMI, YADIEL OR PTCA, ARTERY/GRAFT, SINGLE VESSEL DC01-([id number])LHC/COR/LV IC12-([id number]/[id number])YADIEL W/WO PTCA, SINGLE CORONARY ARTERY CLINICAL PROFILE AND CO-MORBIDITIES Indications: ACS <= 24 hrs Heart Failure: None CAD Presentations: STEMI. Symptom onset Date/Time: Time Not Available CONCLUSIONS 99% Mid LCX 70% Prox LAD 90% Prox RCA; 70-80% distal RCA at RPDA/RPLV bifurcation. RPDA/RPLV small 2 mm vessels LVEF 40%. Posterior akinesis 2+ MR Successful PTCA/YADIEL Mid LCX using Resolute [place]on 3.0x18 mm, optimized proximally using 4.0 mm balloon Successful YADIEL Prox RCA using Resolute [place] 2.5x15 mm, post-dilated using 3.0 mm balloon RECOMMENDATIONS ASA Indefinitley Brilinta for at least 12 months Staged PCI to Prox LAD, preferably as OP DESCRIPTION OF PROCEDURE The patient arrived to the procedure lab. The risks and benefits of the procedure as well as a full description of our services here and lack of surgical backup were fully explained to the patient and/or their significant other prior to the catheterization. The Timeout was completed, verifying the correct patient and procedure. The patient's procedural site was prepped and draped in the usual fashion. Local anesthetic was given subcutaneously to right radial region with Lidocaine 2%. Using a modified Seldinger technique, arterial access was obtained via the right radial artery, a 6Fr sheath was inserted.. Left Coronary Artery selective angiography was performed in multiple views using a 5 Fr. 4.0 Bohannon catheter. Right Coronary Artery selective angiography was then performed in multiple views using a 5 Fr. 4.0 Bohannon catheter. Left Ventriculography was performed in JEROME projection using a 5 Fr. Pigtail catheter. LV to AO pullback pressures were then recorded XB 3 Guide catheter was inserted and engaged into the LCA. Runthrough Guide wire was advanced to the Circumflex. 2.5x12 Emerge Balloon catheter was inserted. Balloon catheter was advanced across lesion in the circumflex, mid. PTCA balloon inflated at 6 atms for 8 secs. Angiogram performed post balloon dilatation. 3x18 Resolute [place] Drug Eluting stent was inserted. Drug Eluting stent was advanced across the lesion in the circumflex, mid. Angiogram performed post stent deployment. Angiogram performed post stent deployment. 3x12 NC Emerge Balloon catheter was inserted. Balloon catheter was inserted post stent. Angiogram performed post balloon dilatation. 4x8 NC Emerge Balloon catheter was inserted. Balloon catheter was inserted post stent. Angiogram performed post balloon dilatation. JR 4 Guide catheter was inserted and engaged into the RCA. Runthrough Guide wire was advanced to the RCA. 2.5x15 Resolute [place] Drug Eluting stent was inserted. Drug Eluting stent was advanced across the lesion in the right coronary, proximal. Angiogram performed post stent deployment. 3x12 NC Emerge Balloon catheter was inserted. Balloon catheter was advanced across lesion in the right coronary, proximal. Angiogram performed post stent deployment. Angiogram performed post balloon dilatation. The arterial sheath was pulled and a TR Band was applied for hemostasis. 12cc of air CORONARY ANGIOGRAPHY DOMINANCE: Right Dominant LEFT HEART ASSESSMENT Left Ventricular Ejection Fraction: by LV Gram 40 % LVEDP: 36 mmHg Posterior Akinesis LEFT ANTERIOR DESCENDING ARTERY: LAD: Tubular 70% Proximal lesion in LAD DIAGONAL 1: Tubular 80% Ostial lesion in 1st Diagonal CIRCUMFLEX ARTERY: CIRCUMFLEX: Complex Thrombus 99% Mid lesion in Circumflex RIGHT CORONARY ARTERY: RCA: Tubular 90% Proximal lesion in RCA Tubular 70% Distal lesion in RCA INTERVENTION INFORMATION LESION SITE: Circumflex (Mid) Lesion Complexity: High/C, thrombus present: Yes, lesion length: 16 mm, culprit lesion: Yes Pre Stenosis: 99 % Pre intervention YECENIA flow: 3 PROCEDURE: Drug Eluting Stent with pre and post dilatation Post Stenosis: 0 % Post intervention YECENIA flow: 3 Lesion Devices: Cordis 6 Fr XB3.0 100cm Guide Catheter Terumo .014 180cm Runthrough Extra Floppy straight Marky Sci EMERGE MR 2.50x12 BALLOON Medtronic Resolute Abilio RX YADIEL 3.0x18 Marky Sci NC EMERGE MR 3.00x12 BALLOON Marky Sci NC EMERGE MR 4.00x08 BALLOON LESION SITE: RCA (Proximal) Lesion Complexity: Non-High/Non-C, lesion length: 13 mm, culprit lesion: No Pre Stenosis: 90 % Pre intervention YECENIA flow: 3 PROCEDURE: Drug Eluting Stent with post dilatation Post Stenosis: 0 % Post intervention YECENIA flow: 3 Lesion Devices: Terumo .014 180cm Runthrough Extra Floppy straight Cordis 6 Fr JR4 100cm Guide Catheter Medtronic Resolute Abilio RX YADIEL 2.5x15 Marky Sci NC EMERGE MR 3.00x12 BALLOON COMPLICATIONS No Complications PROCEDURE MEDICATIONS Oxygen: 100 % FiO2 via non-rebreather mask Amiodarone 360mg / 250ml D5W 1 mg/min IV started from ED 04/05/2022 00:30:36 Amiodarone 360mg / 250ml D5W @ 0 mg/min discontinued @ 04/05/2022 01:13:41 Heparin 8000 unit(s) IV 04/05/2022 00:41:07 Heparin 3000 unit(s) IV 04/05/2022 01:04:13 Lasix 20 mg IV 04/05/2022 01:23:33 Nitro 200 mcg IC 04/05/2022 00:49:11 Magnesium Sulfate 2 Gm 04/05/2022 01:23:15 Verapamil 2.5mg, Ntg 200mcgs, given IA 04/05/2022 00:35:43 SUMMARY OF HEMODYNAMIC DATA Time AIR REST ECG 00:27:47 AO 148/85 (110) SA 00:42:16 LV 153/3, 22 01:15:03 LV 167/4, 40 01:15:11 LV 160/39, 45 01:16:09 LVp 162/39, 45 01:16:15 AOp 162/102 (130) 01:16:22 01:42:59 Signed By Shalini Savage MD On 04/05/2022 01:49:27 Shalini Savage MD
[2022-04-05] MEDS: Carvedilol 3.125 MG TABLET PO (02:08)
[2022-04-05] MEDS: Atorvastatin Calcium 40 MG Tablet PO ×2 (02:08→21:00)
[2022-04-05] MEDS: 0.9% Normal Saline 1,000 ML 75 ML IV (02:08)
[2022-04-05] MEDS: diazePAM 5 MG Tablet PO ×4 (02:27→21:00)
[2022-04-05] MEDS: Acetaminophen 325 MG Tablet 650 MG PO ×4 (02:29→20:59)
[2022-04-05 03:19] LABS: Hematocrit 43.7 % (37-47); Hemoglobin 14.9 g/dL (12.0-15.0); Mean Corp Hgb Conc 34.1 g/dL (32-36); Mean Corpuscular Hgb 33.2 pg (27.0-32.0); Mean Corpuscular Volume 97.3 fL (81-99); Mean Platelet Vol. 9.8 fl (6.2-12.0); Platelet Count 289 K/mm3 (150-450); RBC Distribution Width CV 14.2 % (11.6-14.6); RBC Distribution Width SD 50.1 fl (35.1-43.9); Red Blood Count 4.49 M/mm3 (4.2-5.4)
[2022-04-05 03:32] LABS: ALB/GLOB Ratio 1.1 RATIO (0.9-2.4); AST(SGOT) 41 U/L (15-37); Alanine Aminotransfer ALT/SGPT 67 U/L (13-56); Albumin, Serum 3.5 g/dL (3.2-5.0); Alkaline Phosphatase 82 U/L (45-117); Anion Gap 8 (5-15); BUN 9 mg/dL (7-18); Calcium,Total 8.7 mg/dL (8.5-10.1); Chloride 105 mmol/L (98-107); Creatinine, Serum 1.12 mg/dL (0.55-1.02); EST Glomerular Filtration Rate 53 mL/min (>60); Est Glom Filt Rate - Afr Amer 65 mL/min (>60); Estimated Creatinine Clearance 42.32 ml/min; Globulin 3.1 g/dL (2.2-4.2); Glucose 160 mg/dL (74-106); Protein, Total 6.6 g/dL (6.4-8.2); Sodium Level 138 mmol/L (136-145)
--- NOTE | 2022-04-05 04:14 | NURSING ---
Pt arrived from construction laborer with amio gtt paused. Per Dr. Savage, amio gtt is to be d/c'd.
[2022-04-05 05:05] LABS: Cholesterol 231 mg/dL (200); High Density Lipoprotein 70 mg/dL; Triglycerides 76 mg/dL; Very Low Density Lipoprotein 15 mg/dL (5-40)
[2022-04-05 05:56] LABS: Bedside Glucose 146 mg/dL (74-106)
--- NOTE | 2022-04-05 07:53 | PCM.PN.HOSP ---
Objective Data Objective Data Vital Signs: Vital Signs Temp Pulse Resp BP Pulse Ox O2 Del Method O2 Flow Rate 96.2 F L 73 23 H 141/77 H 93 Room Air 2 04/05/22 02:00 04/05/22 07:01 04/05/22 07:00 04/05/22 07:00 04/05/22 07:00 04/05/22 07:00 04/05/22 04:45 Oxygen Flow Rate (L/min) 2 Oxygen Delivery Method Room Air Weight: 268 lb 4.841 oz Body Mass Index (BMI) 50.3 Intake & Output: Intake and Output for Last 24 Hours 04/03/22 04/04/22 04/05/22 23:59 23:59 23:59 Intake Total 219.61 / 219.61 Output Total 1250 / 1250 Balance -1030.39 / -1030.39 Lab / Micro Data Result Diagrams: 04/05/22 03:05 04/05/22 03:05 Labs: Laboratory Results - last 24 hr 04/04/22 23:50: WBC 11.3 H, RBC 4.65, Hgb 15.4 H, Hct 46.1, MCV 99.1 H, MCH 33.1 H, MCHC 33.4, RDW Std Deviation 51.6 H, RDW Coeff of Erlinda 14.3, Plt Count 307, MPV 9.9, Immature Gran % (Auto) 0.400, Neut % (Auto) 76.5 H, Lymph % (Auto) 16.9 L, Bolivar % (Auto) 4.3, Eos % (Auto) 1.5, Baso % (Auto) 0.4, Absolute Neuts (auto) 8.6 H, Absolute Lymphs (auto) 1.91, Nucleated RBC % 0 04/04/22 23:50: PT 12.9, INR 1.0, APTT 22.5 L 04/04/22 23:50: Sodium 140, Potassium 4.3, Chloride 105, Carbon Dioxide 28.0, Anion Gap 7, BUN 10, Creatinine 1.14 H, Estim Creat Clear Calc 43.58, Est GFR (MDRD) Af Amer 63, Est GFR (MDRD) Non-Af 52 L, BUN/Creatinine Ratio 8.8 L, Glucose 143 H, Calcium 9.5, Troponin I High Sens 676 H* 04/05/22 03:05: WBC 14.0 H, RBC 4.49, Hgb 14.9, Hct 43.7, MCV 97.3, MCH 33.2 H, MCHC 34.1, RDW Std Deviation 50.1 H, RDW Coeff of Erlinda 14.2, Plt Count 289, MPV 9.8 04/05/22 03:05: Sodium 138, Potassium 4.0, Chloride 105, Carbon Dioxide 25.0, Anion Gap 8, BUN 9, Creatinine 1.12 H, Estim Creat Clear Calc 42.32, Est GFR (MDRD) Af Amer 65, Est GFR (MDRD) Non-Af 53 L, BUN/Creatinine Ratio 8.0 L, Glucose 160 H, Calcium 8.7, Total Bilirubin 0.70, AST 41 H, ALT 67 H, Alkaline Phosphatase 82, Total Protein 6.6, Albumin 3.5, Globulin 3.1, Albumin/Globulin Ratio 1.1 04/05/22 03:05: Triglycerides 76, Cholesterol 231 H, LDL Cholesterol 146 H, VLDL Cholesterol 15, HDL Cholesterol 70 04/05/22 05:37: POC Glucose 146 H Radiography Diagnostic Testing: Radiology Impression Chest X-Ray 04/04/22 23:45 IMPRESSION: Bibasilar infiltrates suspicious for pneumonia including atypical or viral pneumonias. Recommend short-term follow-up for resolution. Electronically Signed: Fausto Shah MD at 0:28 EST Reading Location ID and State: [address] [place] [address] Tel , Service support , Physical Exam Narrative Physical exam Patient has family history of PA and CHF in father, first PA in 50s and her father. She is still mildly short of breath. She had syncope about 2 months ago which on review of medical records shows she did not come to [facility] daily. Physical exam General: Alert, Oriented x3, Cooperative, morbidly obese BMI 49.9 kg/m?. HEENT: Atraumatic, PERRLA, EOMI, Normocephalic Oral: No Gingival or Mucosal Lesions/ Ulcerations Neck: Supple, No JVD, Negative Carotid Bruits Lungs: Air entry diminished in bilateral lung bases. No crepitation/rhonchi Cardiovascular: Sinus rhythm on varnish supervisor regular rate, Regular Rhythm, Normal S1, Normal S2, No murmurs Abdomen: Bowel Sounds Present, Soft, Non Tender, Non-Distended : No renal angle tenderness. No suprapubic tenderness. Extremities: Mild nonpitting edema/fat, Capillary Refill Less than 3 Seconds Skin: No rashes, No breakdown Musculoskeletal: No Tenderness to Palpation of Joints or Extremities. ROM restricted over hips and knee joints Neurological: Cranial nerves II-XII grossly intact, DTR 2+/4 and Symmetrical, Neuro grossly intact Psych/Mental Status: Flat affect, anxious. Bipolar disease Assessment & Plan Assessment/Plan (1) ST elevation (STEMI) myocardial infarction: (2) Cardiac arrest: (3) Diabetes mellitus, type II: QUALIFIERS: Diabetes mellitus nursing home insulin use: without ferry terminal supervisor use Diabetes mellitus complication status: with unspecified complications Qualified Code(s): E11.8 - Type 2 diabetes mellitus with unspecified complications PLAN: Plan This is a 57-year-old female who was admitted for intermittent substernal chest pain, 8 to?10/10 for 8 hours prior to ED arrival. Chest pain was pressure with radiation to bilateral arm and wrist. No shortness of breath/dyspnea or nausea. No prior history of cardiac disease but patient has history of diabetes mellitus type 2, dyslipidemia. She had syncope about 3 hours prior to ED arrival. In ED she had presyncopal episode followed by syncope and then 2 episodes ventricular fibrillation arrest for which ACLS protocol was followed with CPR and defibrillation with successful ROSC. Amiodarone was started and patient was taken to the Medical Records Technician 1. Acute inferior posterior STEMI: ED EKG noted to have acute inferior posterior STEMI. This time first EKG in ED showed ST elevation in lead to 3 and aVF with slight ST depression in aVR. Postprocedure EKG shows resolution of ST elevation. Normal sinus rhythm 73 bpm. Cardiac cath shows EF 40% with posterior akinesis. Mid circumflex 99% occlusion thrombus and RCA proximal 90%, 70% distal RCA. LAD 70% proximal D1 80% tubular. Patient had PCI/YADIEL in mid circumflex and proximal RCA. Patient was managed as per STEMI protocol. Troponins are high. Patient is still mildly short of breath. Patient is started on aspirin, Brilinta, high intensity statin , Low-dose carvedilol and lisinopril. Fasting profile shows triglycerides 76, Cholesterol 231 H, LDL Cholesterol 146 H, VLDL Cholesterol 15, HDL Cholesterol 70 Ventricular fibrillation arrest: 2 times in ED prior to PCI. This was successfully and is treated with shock and patient started on amiodarone drip. Chronic heart failure with reduced ejection fraction: Chest x-ray is reviewed and does not show hilar involvement suggestive of pulmonary edema. Repeat echo is ordered. She had prior echo as an outpatient in the hospital which she verbally said was normal. She also had a stress test which was normal about 15 years ago. 2D echo is ordered. Recent flulike symptoms with leukocytosis: Patient stated she had mild fever, sniffles, rhinorrhea and postnasal drip about 10 days ago and got better and resolved couple days ago. Chest x-ray initially showed shows bibasilar infiltrate. Patient is not vaccinated with COVID and flu. Rapid COVID and flu added. I do not think patient needs antibiotic. It is unclear whether patient had viral bronchitis/pneumonia but clinically it has improved and resolved. Leukocytosis may be noninfectious/reactive from STEMI and V. fib. Diabetes mellitus type II: Glucose is elevated 116 BMP in 146 on Accu-Chek. Continue home Trulicity and Accu-Cheks before meals and at bedtime encourage Humalog sliding scale. Morbid Obesity: BMI: 50.4 kg/m?. Complicates care. Lifestyle modification recommended. DVT prophylaxis: Received therapeutic dose of heparin on presentation. Laboratory Results 04/04/22 23:50: WBC 11.3 H, RBC 4.65, Hgb 15.4 H, Hct 46.1, MCV 99.1 H, MCH 33.1 H, MCHC 33.4, RDW Std Deviation 51.6 H, RDW Coeff of Erlinda 14.3, Plt Count 307, MPV 9.9, Immature Gran % (Auto) 0.400, Neut % (Auto) 76.5 H, Lymph % (Auto) 16.9 L, [place]ivar % (Auto) 4.3, Eos % (Auto) 1.5, Baso % (Auto) 0.4, Absolute Neuts (auto) 8.6 H, Absolute Lymphs (auto) 1.91, Nucleated RBC % 0 04/04/22 23:50: PT 12.9, INR 1.0, APTT 22.5 L 04/04/22 23:50: Sodium 140, Potassium 4.3, Chloride 105, Carbon Dioxide 28.0, Anion Gap 7, BUN 10, Creatinine 1.14 H, Estim Creat Clear Calc 43.58, Est GFR (MDRD) Af Amer 63, Est GFR (MDRD) Non-Af 52 L, BUN/Creatinine Ratio 8.8 L, Glucose 143 H, Calcium 9.5, Troponin I High Sens 676 H* 04/05/22 03:05: WBC 14.0 H, RBC 4.49, Hgb 14.9, Hct 43.7, MCV 97.3, MCH 33.2 H, MCHC 34.1, RDW Std Deviation 50.1 H, RDW Coeff of Erlinda 14.2, Plt Count 289, MPV 9.8 04/05/22 03:05: Sodium 138, Potassium 4.0, Chloride 105, Carbon Dioxide 25.0, Anion Gap 8, BUN 9, Creatinine 1.12 H, Estim Creat Clear Calc 42.32, Est GFR (MDRD) Af Amer 65, Est GFR (MDRD) Non-Af 53 L, BUN/Creatinine Ratio 8.0 L, Glucose 160 H, Calcium 8.7, Total Bilirubin 0.70, AST 41 H, ALT 67 H, Alkaline Phosphatase 82, Total Protein 6.6, Albumin 3.5, Globulin 3.1, Albumin/Globulin Ratio 1.1 04/05/22 03:05: Triglycerides 76, Cholesterol 231 H, LDL Cholesterol 146 H, VLDL Cholesterol 15, HDL Cholesterol 70 04/05/22 05:37: POC Glucose 146 H Clinical Impression(s) from Imaging Studies Chest X-Ray 04/04/22 23:45 IMPRESSION: Bibasilar infiltrates suspicious for pneumonia including atypical or viral pneumonias. Recommend short-term follow-up for resolution. Electronically Signed: Fausto Shah MD at 0:28 EST , Charges/Coding Visit Charges Inpatient E&M: 66289 Subs Hosp L3
[2022-04-05] MEDS: Aspirin E.C. 81 MG Tablet PO (08:40)
[2022-04-05 09:09] LABS: ACT Activated Clotting Time 219 sec (74-137)
[2022-04-05 09:09] LABS: ACT Activated Clotting Time 144 sec (74-137)
[2022-04-05 09:13] LABS: ACT Activated Clotting Time 283 sec (74-137)
--- NOTE | 2022-04-05 09:39 | PCM.PN.BLA ---
Progress Note Doing good at hypertensive. Will increase carvedilol. Start on hydrochlorothiazide. Stop lisinopril. Start on losartan. Continue to monitor.
[2022-04-05] MEDS: TICAGRELOR 90 MG TABLET PO ×2 (10:00→21:00)
[2022-04-05] MEDS: CHLORHEXIDINE GLUC 2% CLOTH 1 EACH TOWELETTE TOPICAL (10:00)
[2022-04-05] MEDS: Carvedilol 6.25 MG Tablet PO ×2 (10:00→21:00)
[2022-04-05] MEDS: hydroCHLOROthiazide 25 MG Tablet PO (10:00)
[2022-04-05] MEDS: Pantoprazole Sodium 40 MG Tablet PO (10:01)
[2022-04-05] MEDS: Losartan Potassium 25 MG Tablet PO (10:01)
--- NOTE | 2022-04-05 12:05 | CASEMGMT ---
RN CM Face to Face with patient for initial transition planning/care coordination assessment. RN CM introduced self and role at [facility]. Patient lying in bed, alert and oriented. Patient willing to participate in assessment and is able to answer all questions appropriately. Care providers, pharmacy, and demographics verified. Patient wishes to discharge home, denies need for home health at this time. Patient states she has no further needs or concerns at this time. CM to follow for discharge planning needs that may arise. PCP: Ezequiel Specialists: Zac, pain; Dalton, ortho; Barbie, kids club attendant Preferred Pharmacy: [facility] Insurance: [employer] [facility] Prescription Benefit: yes Living Will/HPOA: none LNOK: significant otherHossein Living Arrangements: Patient lives with boyfriend in a mobile home with 3 steps and railing to enter the home. Patient states she is independent at home. Transportation: significant other DME/HHC: Patient has cpap at home. Patient denies previous HHC or SNF. Disposition Plan: Patient to discharge home with family support and follow-up plans in place. Grace DORSEY, RN, CM
[2022-04-05 12:41] LABS: Bedside Glucose 145 mg/dL (74-106)
--- NOTE | 2022-04-05 12:56 | CRPHASE1 ---
Patient Communication Former Patient:: Phase II PHII Cardiac Rehab Discussed with Patient:: Yes Guide to Cardiac Rehab Given to Patient:: Yes Cardiac Rehab Facility Choice List Given to Patient:: Yes Choice Program [facility] CR PHII:: Communication Given to CR Electrical Timing Device Calibrator:: Shalini Savage Phase II Cardiac Rehab:: Yes Sessions:: 36 sessions - 3 days/wk, 12 weeks Cardiac Rehabilitation Info Cardiac Rehabilitation Program Information: Cardiac Rehabilitation is important for patients like you who are recovering from a heart problem. Cardiac rehabilitation programs are recognized as integral to the continued care of the patient with coronary heart disease. The cardiac rehabilitation program is designed to optimize a patient's physical, psychological, and social functioning. Health associate director career services work in cardiac rehabilitation programs and assist you with getting the treatments you need to get stronger and healthier - like exercise, healthy eating habits, and medications. Cardiac rehabilitation has been show to help people with heart problems live longer and have better life enjoyment than people who do not go to cardiac rehabilitation. Please contact the Cardiac Rehabilitation Program at [facility] at in two weeks if you have not heard from them.
--- NOTE | 2022-04-05 12:57 | CRPH1.INSTRU ---
General Education CAD and cardiac anatomy and function:: Patient communicates acknowledgment, Needs reinforcement Explanation of diagnoses and procedures:: Patient communicates acknowledgment, Needs reinforcement Sign/Symptoms of OK:: Patient communicates acknowledgment, Needs reinforcement Antiplatelet therapy: Patient communicates acknowledgment, Needs reinforcement Proper use of NTG-SL: Patient communicates acknowledgment, Needs reinforcement Emergency procedures and activation of EMS: Patient communicates acknowledgment, Needs reinforcement Compliance of all prescribed medications: Patient communicates acknowledgment, Needs reinforcement Smoking Patient Nicotine/Smoking Risk Factors Are:: Cigarettes Recommendations Include:: Second-hand smoke recommendation, Participation in a smoking cessation program Nicotine/Smoking Response Code:: Patient communicates acknowledgment, Needs reinforcement Dyslipidemia Patient Dyslipidemia Risk Factors Are:: Total Cholesterol, Triglycerides, HDL, LDL Recommendations Include:: Lipid profile provided, Therapeutic Lifestyle Change dietary guidelines Dyslipidemia Response Code:: Patient communicates acknowledgment, Needs reinforcement Overweight/Obesity Patient Overweight/Obesity Risk Factors Are:: Obesity - > or = 30 Recommendations Include:: Weight loss of 5-10%, Reduced calorie diet, Exercise 5-7 times/week Overweight/Obesity:: Patient communicates acknowledgment, Needs reinforcement Hypertension Recommendations Include:: BP <130/80 if diabetic, Decrease/maintain normal body weight, Moderation of ETOH Hypertension:: Patient communicates acknowledgment, Needs reinforcement Heart Disease Patient Heart Disease Risk Factors Are:: Previous cardiac event Recommendations Include:: Educated family members of their risk Heart Disease Response Code:: Patient communicates acknowledgment, Needs reinforcement Diabetes Patient Diabetes Risk Factors Are:: Elevated blood sugars Recommendations Include:: Maintain fasting blood sugars 70-110 md/dL, Maintain HgbA1c of 6% or less, Monitor blood sugar as prescribed, Decrease/maintain body weight Diabetes:: Patient communicates acknowledgment, Needs reinforcement Sedentary Patient Sedentary Risk Factors Are:: Lack of regular exercise Recommendations Include:: Aerobic exercise 5-7 times/week for 20-30 minutes continuously, Benefits of regular exercise, Monitored Outpatient Cardiac Rehab Sedentary Response Code:: Patient communicates acknowledgment, Needs reinforcement
[2022-04-05] MEDS: Losartan Potassium 50 MG Tablet PO (16:13)
[2022-04-05 18:15] LABS: Bedside Glucose 118 mg/dL (74-106)
--- NOTE | 2022-04-05 18:58 | NURSING ---
Report called to KWADWO Leonard, as pt is transferring to PCU status. Will assume care of pt at this time.
[2022-04-05] MEDS: guaiFENesin 600 MG Tablet PO (20:59)
[2022-04-05] MEDS: 0.9% Saline Lock 10 ML Syringe IV (22:33)
[2022-04-05] MEDS: Morphine 2 MG/ML Syringe IV (22:33)
[2022-04-05 23:25] LABS: Troponin-I HS 3278 pg/mL (3.0-54.0)
--- NOTE | 2022-04-05 23:39 | NURSING ---
pt rates pain 2/10, pt states, is much improved from previous. 02 remains intact at 2LNC.
[2022-04-06] VITALS (8 sets, daily range): BP systolic 118–147; BP diastolic 79–99; PULSE 55–88; RESP 16–20; TEMP 36.3–36.6; O2SAT 95–100
--- NOTE | 2022-04-06 00:11 | NURSING ---
Addendum entered by Na Palacios 04/06/22 00:12: wrong pt. Original Note: pt refuses straight cath for urine specimen. urine collected from clean purewick.
[2022-04-06 00:51] LABS: Troponin-I HS 2973 pg/mL (3.0-54.0)
[2022-04-06] MEDS: diazePAM 5 MG Tablet PO ×2 (03:11→15:08)
[2022-04-06 03:36] LABS: Bedside Glucose 114 mg/dL (74-106)
[2022-04-06 04:40] LABS: Absolute Neutrophil Count 7.9 X10^3/uL (2.0-7.7); Basophil# 0.05 X10^3/uL; Basophil% 0.5 % (0-1); Eosinophil# 0.15 X10^3/uL; Eosinophils% 1.4 % (0-5); Hematocrit 42.1 % (37-47); Hemoglobin 14.6 g/dL (12.0-15.0); Lymphocyte % 14.5 % (19-41); Mean Corp Hgb Conc 34.7 g/dL (32-36); Mean Corpuscular Hgb 33.3 pg (27.0-32.0); Mean Corpuscular Volume 96.1 fL (81-99); Mean Platelet Vol. 9.9 fl (6.2-12.0); Monocyte# 0.71 X10^3/uL; Monocyte% 6.8 % (0-10); NRBC Flagged by Analyzer 0 % (0-5); Neutrophil # 7.89 X10^3/uL (2.7-7.7); Neutrophil % 76.1 % (47-70); Platelet Count 267 K/mm3 (150-450); RBC Distribution Width CV 14.2 % (11.6-14.6); RBC Distribution Width SD 49.2 fl (35.1-43.9); Red Blood Count 4.38 M/mm3 (4.2-5.4); White Blood Count 10.4 K/mm3 (4.4-11.0)
[2022-04-06 05:19] LABS: Anion Gap 10 (5-15); BUN 12 mg/dL (7-18); BUN/Creat Ratio 11.4 RATIO (10-20); Calcium,Total 9.2 mg/dL (8.5-10.1); Chloride 104 mmol/L (98-107); Creatinine, Serum 1.05 mg/dL (0.55-1.02); EST Glomerular Filtration Rate 58 mL/min (>60); Est Glom Filt Rate - Afr Amer 70 mL/min (>60); Estimated Creatinine Clearance 45.14 ml/min; Glucose 144 mg/dL (74-106); Potassium 3.5 mmol/L (3.5-5.1); Sodium Level 137 mmol/L (136-145); Troponin-I HS 2761 pg/mL (3.0-54.0)
[2022-04-06] MEDS: 0.9% Saline Lock 10 ML Syringe IV (05:45)
[2022-04-06] MEDS: Morphine 2 MG/ML Syringe IV (05:45)
[2022-04-06 07:10] LABS: Bedside Glucose 121 mg/dL (74-106)
--- NOTE | 2022-04-06 09:47 | PCM.PN.CARD ---
Subjective Subjective Denies any complaints. No chest pain. No shortness of breath. Objective Data Vital Signs: Vital Signs Temp Pulse Resp BP Pulse Ox O2 Del Method O2 Flow Rate 97.6 F L 69 20 H 147/79 H 95 Nasal Cannula 2 04/06/22 05:43 04/06/22 07:38 04/06/22 05:43 04/06/22 05:43 04/06/22 05:43 04/06/22 05:43 04/06/22 05:43 Oxygen Flow Rate (L/min) 2 Oxygen Delivery Method Nasal Cannula Weight: 268 lb 11.896 oz Body Mass Index (BMI) 50.3 Intake & Output: Intake and Output for Last 24 Hours 04/04/22 04/05/22 04/06/22 23:59 23:59 23:59 Intake Total 1929.61 / 2129.61 440 / 440 Output Total 1251 / 1251 0 / 0 Balance 678.61 / 878.61 440 / 440 Lab / Micro Data Result Diagrams: 04/06/22 04:00 04/06/22 04:00 Labs: Laboratory Results - last 24 hr 04/05/22 12:23: POC Glucose 145 H 04/05/22 17:52: POC Glucose 118 H 04/05/22 22:29: Troponin I High Sens 3278 H* 04/06/22 00:00: Troponin I High Sens 2973 H* 04/06/22 03:18: POC Glucose 114 H 04/06/22 04:00: WBC 10.4, RBC 4.38, Hgb 14.6, Hct 42.1, MCV 96.1, MCH 33.3 H, MCHC 34.7, RDW Std Deviation 49.2 H, RDW Coeff of Erlinda 14.2, Plt Count 267, MPV 9.9, Immature Gran % (Auto) 0.700, Neut % (Auto) 76.1 H, Lymph % (Auto) 14.5 L, Crook % (Auto) 6.8, Eos % (Auto) 1.4, Baso % (Auto) 0.5, Absolute Neuts (auto) 7.9 H, Absolute Lymphs (auto) 1.50, Nucleated RBC % 0 04/06/22 04:00: Sodium 137, Potassium 3.5, Chloride 104, Carbon Dioxide 23.0, Anion Gap 10, BUN 12, Creatinine 1.05 H, Estim Creat Clear Calc 45.14, Est GFR (MDRD) Af Amer 70, Est GFR (MDRD) Non-Af 58 L, BUN/Creatinine Ratio 11.4, Glucose 144 H, Calcium 9.2, Troponin I High Sens 2761 H* 04/06/22 06:46: POC Glucose 121 H Micro: Microbiology 04/05/22 08:30 Nasal Secretion SARS-CoV-2 & FLU Antigen (Rapid) - Final Cardiology Labs/Tests 04/06/22 04:00: WBC 10.4, RBC 4.38, Hgb 14.6, Hct 42.1, MCV 96.1, MCH 33.3 H, MCHC 34.7, Plt Count 267, MPV 9.9, Immature Gran % (Auto) 0.700, Neut % (Auto) 76.1 H, Lymph % (Auto) 14.5 L, [place]ok % (Auto) 6.8, Eos % (Auto) 1.4, Baso % (Auto) 0.5, Absolute Neuts (auto) 7.9 H, Nucleated RBC % 0 04/06/22 04:00: Sodium 137, Potassium 3.5, Chloride 104, Carbon Dioxide 23.0, Anion Gap 10, BUN 12, Creatinine 1.05 H, Est GFR (MDRD) Af Amer 70, Est GFR (MDRD) Non-Af 58 L, BUN/Creatinine Ratio 11.4, Glucose 144 H, Calcium 9.2 Rhythm: EKG: ECHO: Stress Test: Cardiac Cath: PCI: CT Surgery: Holter monitor: EPS: PPM: CXR: Chest CT Scan: Radiography Diagnostic Testing: Radiology Impression Echocardiogram 04/05/22 01:44 Interpretation Summary The left ventricular ejection fraction is 60 %. Basal to mid posterior severe hypokinesis. Lateral hypokinesis. Stage 3 diastolic dysfunction. Mild hypertrophy of the right ventricle. Mild tricuspid valve insufficiency. Mild pulmonary hypertension. Mild (1+) aortic valve insufficiency. Mild (1+) mitral valve insufficiency. Ordering Physician: Shalini Savage Referring Physician: ALICJA TINOCO Performed By: Michelle Mccloud [facility] Physical Exam Narrative Comfortable. Heart sounds 1 and 2 normal. Chest clear to auscultation bilaterally. Abdomen obese. Alert oriented x3. Assessment & Plan Assessment/Plan (1) ST elevation (STEMI) myocardial infarction: PLAN: Emergent coronary angiography revealed subtotal occlusion in the mid left circumflex coronary artery. Successful percutaneous intervention was done with balloon angioplasty and placement of a drug-eluting stent. Patient was also noted to have about 90% lesion in the proximal right coronary artery. This was also treated using a drug-eluting stent. Excellent results were noted. Continue aspirin lifelong. Brilinta for at least 12 months. Risk factor modification. (2) Cardiac arrest with ventricular fibrillation: PLAN: In the setting of #1 above. Reperfused. DC amiodarone. Started on beta-blockers. ICU monitoring. (3) Coronary artery disease: PLAN: See #1 above. For staged PCI to LAD possibly as an outpatient. (4) Cardiomyopathy: PLAN: Oh left ventricular systolic function normal. Stage III diastolic dysfunction. (5) HLD (hyperlipidemia): PLAN: Atorvastatin. (6) Obesity (BMI 30-39.9): PLAN: Lose weight. (7) Diabetes mellitus, type II: QUALIFIERS: Diabetes mellitus intermodal customer service insulin use: without intermodal customer service use Diabetes mellitus complication status: with unspecified complications Qualified Code(s): E11.8 - Type 2 diabetes mellitus with unspecified complications PLAN: As per internal medicine. PLAN: Plan May discharge home today from a cardiology standpoint. Follow-up as outpatient.
[2022-04-06] MEDS: Carvedilol 6.25 MG Tablet PO (10:00)
[2022-04-06] MEDS: TICAGRELOR 90 MG TABLET PO (10:00)
[2022-04-06] MEDS: hydroCHLOROthiazide 25 MG Tablet PO (10:00)
[2022-04-06] MEDS: Aspirin E.C. 81 MG Tablet PO (10:00)
[2022-04-06] MEDS: Losartan Potassium 50 MG Tablet PO (10:00)
[2022-04-06] MEDS: Pantoprazole Sodium 40 MG Tablet PO (10:00)
[2022-04-06] MEDS: guaiFENesin 600 MG Tablet PO (10:00)
--- NOTE | 2022-04-06 11:25 | CASEMGMT ---
KWADWO BARROSO NOTE: RN CM to room. Introduced self and role. Pt provided w/Brilinta 30-day savings card and instructed on use. Discussed importance of taking Brilinta as prescribed. Made aware, if refills are not affordable, to discuss other options w/publications distribution clerk. Pt voices understanding. Pt also made aware, if there are any issues w/getting the medication @ the pharmacy, to contact this KWADWO BARROSO. Contact info provided. Holly DORSEY RN CM
[2022-04-06 12:06] LABS: Bedside Glucose 112 mg/dL (74-106)
--- NOTE | 2022-04-06 15:34 | DCINST_ITS ---
Discharge Instructions Diet Discharge Diet: Low fat / Low cholesterol, 1800 Calorie Control Diet and 2000 mg Sodium Diet Activity Discharge Activity: Return to Normal Activity Dressing / Incision Call your doctor if you observe: Fever of 101 or Higher, Coldness, Increased Pain, Numbness or Tingling, Change in Color, Inability to urinate, Inability to have a bowel movement, Using more than 1 pad per hour, Shortness of breath, Dizziness, Fainting spells, Swelling in the ankles, Chest pain, Prolonged hiccupping, Increased palpitations (irregular heartbeat), Calf discomfort and Uncontrolled pain Follow Up Care Test Results: Test results from this visit will be discussed in further detail at your follow- up appointment, if applicable. Discharge Plan Admission Admit Date/Time: 04/04/22 23:54 Primary Reason for Your Visit: Inferior wall STEMI, V. fib,s/p defebrillation Attending Provider: Robert Mata Primary Care Provider: Jericho Nieves Consulting Providers: Lorenzo Duque ; Shalini Savage Discharge Orders/Prescriptions Prescriptions: New losartan 50 mg Tablet 50 mg PO DAILY Qty: 30 2RF atorvastatin 40 mg Tablet 40 mg PO QHS Qty: 30 2RF carvedilol 6.25 mg Tablet 6.25 mg PO BID Qty: 60 2RF aspirin 81 mg Tablet,Delayed Release (Dr/Ec) 81 mg PO DAILY@0800 Qty: 30 2RF nitroglycerin 0.4 mg Tablet, Sublingual 0.4 mg sublingual Q5M PRN (Reason: Cardiac/Chest Pain) Qty: 30 0RF hydrochlorothiazide 25 mg Tablet 25 mg PO DAILY Qty: 30 0RF Brilinta 90 mg Tablet 90 mg PO BID Qty: 60 2RF guaifenesin [Mucus Relief ER] 600 mg Tablet Extended Release 12hr 600 mg PO BID Qty: 1 0RF folic acid 1 mg tablet 1 mg PO DAILY Qty: 30 2RF Continued adalimumab 10 mg/0.2 mL Syringe Kit 40 mg SUBCUT X1 Rx Instructions: once every 2 weeks methotrexate sodium 2.5 mg tablet 15 mg PO QWEEK Label Comments: TAKE 6 TABLETS BY MOUTH EVERY WEEK buprenorphine 10 mcg/hour patch weekly 10 patch topical QWEEK Label Comments: APPLY 1 PATCH TO THE SKIN SURFACE WEEKLY lansoprazole 30 mg capsule,delayed release(DR/EC) 30 mg PO DAILY Label Comments: TAKE 1 CAPSULE ONCE DAILY Referrals / Follow Up: Shalini Savage MD [Med Staff - Active Staff] - Within 1 Month Jericho Nieves MD [Primary Care Provider] - Within 2 Weeks Disposition Disposition (needs filled in before D/C Order can be placed): Home, Self Care
--- NOTE | 2022-04-06 15:54 | DS.PCM_ITS ---
Providers Date of Admission: 04/04/22 Date of Discharge: 04/06/22 Primary Care Physician: Dr. Jericho Nieves MD Consultations 04/05/22 01:44 Consult: Cardiology Routine Consulting Provider: Shalini Savage Reason for Consult: STEMI EMERGENT Consult: No MD Notified: Yes Date Notified: 04/05/22 Time Notified: 00:29 Method of Notification: Verbal Reason For Visit: STEMI, CARDIAC ARREST Diagnosis Discharge Diagnosis (1) ST elevation (STEMI) myocardial infarction: Status: Acute Code(s): I21.3 - ST elevation (STEMI) myocardial infarction of unspecified site (2) Cardiac arrest with ventricular fibrillation: Status: Acute Code(s): I46.9 - Cardiac arrest, cause unspecified; I49.01 - Ventricular fibrillation (3) Coronary artery disease: Status: Acute Code(s): I25.10 - Atherosclerotic heart disease of [place] coronary artery without angina pectoris (4) Cardiomyopathy: Status: Acute Code(s): I42.9 - Cardiomyopathy, unspecified (5) HLD (hyperlipidemia): Status: Acute Code(s): E78.5 - Hyperlipidemia, unspecified (6) Obesity (BMI 30-39.9): Status: Chronic Code(s): E66.9 - Obesity, unspecified (7) Diabetes mellitus, type II: Status: Chronic Code(s): E11.9 - Type 2 diabetes mellitus without complications Qualifiers: Diabetes mellitus complication status: with unspecified complications Diabetes mellitus assisted insulin use: without terminal computer operator use Qualified Code(s): E11.8 - Type 2 diabetes mellitus with unspecified complications Medications at Discharge Home Medications adalimumab 10 mg/0.2 mL subcutaneous syringe kit 40 mg subcut X1 08/21/21 buprenorphine 10 mcg/hour weekly transdermal patch 10 patch topical QWEEK 01/15/22 methotrexate sodium 2.5 mg tablet 15 mg PO QWEEK 01/15/22 lansoprazole 30 mg capsule,delayed release 30 mg PO DAILY 04/04/22 aspirin 81 mg tablet,delayed release 81 mg PO DAILY@0800 #30 tabs 04/06/22 atorvastatin 40 mg tablet 40 mg PO QHS #30 tabs 04/06/22 carvedilol 6.25 mg tablet 6.25 mg PO BID #60 tabs 04/06/22 folic acid 1 mg tablet 1 mg PO DAILY #30 tabs 04/06/22 guaifenesin 600 mg tablet, extended release 12 hr (Mucus Relief ER) 600 mg PO B ID #1 TAB 04/06/22 hydrochlorothiazide 25 mg tablet 25 mg PO DAILY #30 tabs 04/06/22 losartan 50 mg tablet 50 mg PO DAILY #30 tabs 04/06/22 nitroglycerin 0.4 mg sublingual tablet 0.4 mg sublingual Q5M PRN Cardiac/Chest Pain #30 tabs 04/06/22 ticagrelor 90 mg tablet (Brilinta) 90 mg PO BID #60 tabs 04/06/22 Hospital Course Summary of Care Provided Hospital Course: This is a 57-year-old female who was admitted for intermittent substernal chest pain, 8 to?1010 for 8 hours prior to ED arrival. Chest pain was pressure with radiation to bilateral arm and wrist. No shortness of breath/dyspnea or nausea. No prior history of cardiac disease but patient has history of diabetes mellitus type 2, dyslipidemia. She had syncope about 3 hours prior to ED arrival. In ED she had presyncopal episode followed by syncope and then 2 episodes ventricular fibrillation arrest for which ACLS protocol was followed with CPR and defibrillation with successful ROSC. Amiodarone was started and patient was taken to the [facility] She had syncope about 2 months ago which on review of medical records shows she did not come to [facility] daily.Patient has family history of [place] and CHF in father, first [place] in 50s and her father. 1. Acute inferior posterior STEMI: ED EKG noted to have acute inferior posterior STEMI. This time first EKG in ED showed ST elevation in lead to 3 [address] with slight ST depression in aVR. Postprocedure EKG shows resolution of ST elevation. Normal sinus rhythm 73 bpm. Cardiac cath shows EF 40% with posterior akinesis. Mid circumflex 99% occlusion thrombus and RCA proximal 90%, 70% distal RCA. LAD 70% proximal D1 80% tubular. Patient had PCI/YADIEL in mid circumflex and proximal RCA. Patient was managed as per STEMI protocol. Troponins are high. Patient is still mildly short of breath. Patient is started on aspirin, Brilinta, high intensity statin , Low-dose carvedilol and lisinopril. Fasting profile shows triglycerides 76, Cholesterol 231 H, LDL Cholesterol 146 H, VLDL Cholesterol 15, HDL Cholesterol 70 12/2: Patient did not have chest pain or shortness of breath. She is ready for going home. Seen by feather maker and okay for discharge. prescriptions for was sent to patient's preferred pharmacy. Aspirin, Brilinta, Coreg,, nitro sublingual losartan and high intensity statin Brilinta for 1 year and aspirin Lifelong. Medication adherence reinforced in the presence of patient's . 2. Ventricular fibrillation, status post cardiac arrest : 2 times in ED prior to PCI. This was successfully and is treated with shock and patient started on amiodarone drip. Patient did also CPR on review of H&P. 3. Chronic combined HFpEF and HFrEF: Chest x-ray is reviewed and does not show hilar involvement suggestive of pulmonary edema. She had prior echo as an outpatient in the hospital which she verbally said was normal. She also had a stress test which was normal about 15 years ago. 2D echo was done during hospital course and reported EF 60% basal to mid posterior severe hypokinesis, stage III diastolic function, mild AI and MR with mild pulmonary hypertension. Mild RVH. 4. Recent flulike symptoms with leukocytosis: Patient stated she had mild fever, sniffles, rhinorrhea and postnasal drip about 10 days ago and got better and resolved couple days ago. Chest x-ray initially showed shows bibasilar infiltrate. Patient is not vaccinated with COVID and flu. Rapid COVID and flu added. I do not think patient needs antibiotic. It is unclear whether patient had viral bronchitis/pneumonia but clinically it has improved and resolved. Leukocytosis may be noninfectious/reactive from STEMI and V. fib. 5. Diabetes mellitus type II: Glucose is elevated 116 BMP in 146 on Accu-Chek. Continue home Trulicity and Accu-Cheks before meals and at bedtime encourage Humalog sliding scale. 6. Psoriatic arthritis: Patient is on Humira. Prescription for folic acid given. Follow-up PCP and outcomes analyst. Morbid Obesity: BMI: 50.4 kg/m?. Complicates care. Lifestyle modification recommended. DVT prophylaxis: Received therapeutic dose of heparin on presentation. Discharge medication reconciliation done. Discharge follow-up instructions completed. Discharge process discussed with the patient and all questions were answered to patient's satisfaction. Total time spent, exact 35 minutes on discharge meds reconciliation, examination, coordination of care with nurses and ancillary staff, review of imaging and blood test and discussion with the patient on follow-up instructions. Microbiology Past 72 Hours 04/05/22 08:30 Nasal Secretion SARS-CoV-2 & FLU Antigen (Rapid) - Final Laboratory Results 04/05/22 17:52: POC Glucose 118 H 04/05/22 22:29: Troponin I High Sens 3278 H* 04/06/22 00:00: Troponin I High Sens 2973 H* 04/06/22 03:18: POC Glucose 114 H 04/06/22 04:00: WBC 10.4, RBC 4.38, Hgb 14.6, Hct 42.1, MCV 96.1, MCH 33.3 H, MCHC 34.7, RDW Std Deviation 49.2 H, RDW Coeff of Erlinda 14.2, Plt Count 267, MPV 9.9, Immature Gran % (Auto) 0.700, Neut % (Auto) 76.1 H, Lymph % (Auto) 14.5 L, [place] % (Auto) 6.8, Eos % (Auto) 1.4, Baso % (Auto) 0.5, Absolute Neuts (auto) 7.9 H, Absolute Lymphs (auto) 1.50, Nucleated RBC % 0 04/06/22 04:00: Sodium 137, Potassium 3.5, Chloride 104, Carbon Dioxide 23.0, Anion Gap 10, BUN 12, Creatinine 1.05 H, Estim Creat Clear Calc 45.14, Est GFR (MDRD) Af Amer 70, Est GFR (MDRD) Non-Af 58 L, BUN/Creatinine Ratio 11.4, Glucose 144 H, Calcium 9.2, Troponin I High Sens 2761 H* 04/06/22 06:46: POC Glucose 121 H 04/06/22 11:43: POC Glucose 112 H Clinical Impression(s) from Imaging Studies Chest X-Ray 04/04/22 23:45 IMPRESSION: Bibasilar infiltrates suspicious for pneumonia including atypical or viral pneumonias. Recommend short-term follow-up for resolution. Electronically Signed: Fausto Shah MD at 0:28 EST , Physical Exam Narrative Physical exam No chest pain. Shortness of breath is resolved. Patient was transferred to PCU on 04/05 evening. Physical exam General: Alert, Oriented x3, Cooperative, morbidly obese BMI 49.9 kg/m?. HEENT: Atraumatic, PERRLA, EOMI, Normocephalic Oral: No Gingival or Mucosal Lesions/ Ulcerations Neck: Supple, No JVD, Negative Carotid Bruits Lungs: Air entry diminished in bilateral lung bases. No crepitation/rhonchi Cardiovascular: Sinus rhythm on engine assembler regular rate, Regular Rhythm, Normal S1, Normal S2, No murmurs Abdomen: Bowel Sounds Present, Soft, Non Tender, Non-Distended : No renal angle tenderness. No suprapubic tenderness. Extremities: Mild nonpitting edema/fat, Capillary Refill Less than 3 Seconds Skin: No rashes, No breakdown Musculoskeletal: No Tenderness to Palpation of Joints or Extremities. ROM restricted over hips and knee joints Neurological: Cranial nerves II-XII grossly intact, DTR 2+/4 and Symmetrical, Neuro grossly intact Psych/Mental Status: Flat affect, anxious. Bipolar disease Weight / BMI Weight Weight: 268 lb 11.896 oz Body Mass Index (BMI) 50.3 ABG / Lab / Microbiology Data Result Diagrams: 04/06/22 04:00 04/06/22 04:00 Laboratory: Laboratory Results - last 24 hr 04/05/22 17:52: POC Glucose 118 H 04/05/22 22:29: Troponin I High Sens 3278 H* 04/06/22 00:00: Troponin I High Sens 2973 H* 04/06/22 03:18: POC Glucose 114 H 04/06/22 04:00: WBC 10.4, RBC 4.38, Hgb 14.6, Hct 42.1, MCV 96.1, MCH 33.3 H, MCHC 34.7, RDW Std Deviation 49.2 H, RDW Coeff of Erlinda 14.2, Plt Count 267, MPV 9.9, Immature Gran % (Auto) 0.700, Neut % (Auto) 76.1 H, Lymph % (Auto) 14.5 L, [place] % (Auto) 6.8, Eos % (Auto) 1.4, Baso % (Auto) 0.5, Absolute Neuts (auto) 7.9 H, Absolute Lymphs (auto) 1.50, Nucleated RBC % 0 04/06/22 04:00: Sodium 137, Potassium 3.5, Chloride 104, Carbon Dioxide 23.0, Anion Gap 10, BUN 12, Creatinine 1.05 H, Estim Creat Clear Calc 45.14, Est GFR (MDRD) Af Amer 70, Est GFR (MDRD) Non-Af 58 L, BUN/Creatinine Ratio 11.4, Glucose 144 H, Calcium 9.2, Troponin I High Sens 2761 H* 04/06/22 06:46: POC Glucose 121 H 04/06/22 11:43: POC Glucose 112 H Microbiology: Microbiology 04/05/22 08:30 Nasal Secretion SARS-CoV-2 & FLU Antigen (Rapid) - Final D/C Instructions Discharge Diet: Low fat / Low cholesterol, 1800 Calorie Control Diet and 2000 mg Sodium Diet Call your doctor if you observe: Fever of 101 or Higher, Coldness, Increased Pain, Numbness or Tingling, Change in Color, Inability to urinate, Inability to have a bowel movement, Using more than 1 pad per hour, Shortness of breath, Dizziness, Fainting spells, Swelling in the ankles, Chest pain, Prolonged hiccupping, Increased palpitations (irregular heartbeat), Calf discomfort and Uncontrolled pain Meaningful Use Info Meaningful Use Diagnoses (Choose all that apply): AMI AMI/Post PCI/Angioplasty Aspirin given w/in 24hrs of arrival?: Yes ASA at discharge?: Yes Statins at discharge?: Yes Rojas/ARB at discharge?: Yes Beta Daniel at discharge?: Yes Done w/ Acute [place] measure.: Yes Discharge Plan Admission Admit Date/Time: 04/04/22 23:54 Primary Reason for Your Visit: Inferior wall STEMI, V. fib,s/p defebrillation Attending Provider: Robert Mata Primary Care Provider: Jericho Nieves Consulting Providers: Lorenzo Duque ; Shalini Savage Discharge Orders/Prescriptions Prescriptions: New losartan 50 mg Tablet 50 mg PO DAILY Qty: 30 2RF atorvastatin 40 mg Tablet 40 mg PO QHS Qty: 30 2RF carvedilol 6.25 mg Tablet 6.25 mg PO BID Qty: 60 2RF aspirin 81 mg Tablet,Delayed Release (Dr/Ec) 81 mg PO DAILY@0800 Qty: 30 2RF nitroglycerin 0.4 mg Tablet, Sublingual 0.4 mg sublingual Q5M PRN (Reason: Cardiac/Chest Pain) Qty: 30 0RF hydrochlorothiazide 25 mg Tablet 25 mg PO DAILY Qty: 30 0RF Brilinta 90 mg Tablet 90 mg PO BID Qty: 60 2RF guaifenesin [Mucus Relief ER] 600 mg Tablet Extended Release 12hr 600 mg PO BID Qty: 1 0RF folic acid 1 mg tablet 1 mg PO DAILY Qty: 30 2RF Continued adalimumab 10 mg/0.2 mL Syringe Kit 40 mg SUBCUT X1 Rx Instructions: once every 2 weeks methotrexate sodium 2.5 mg tablet 15 mg PO QWEEK Label Comments: TAKE 6 TABLETS BY MOUTH EVERY WEEK buprenorphine 10 mcg/hour patch weekly 10 patch topical QWEEK Label Comments: APPLY 1 PATCH TO THE SKIN SURFACE WEEKLY lansoprazole 30 mg capsule,delayed release(DR/EC) 30 mg PO DAILY Label Comments: TAKE 1 CAPSULE ONCE DAILY Referrals / Follow Up: Shalini Savage MD [Med Staff - Active Staff] - 05/08/22 2:30 pm Jericho Nieves MD [Primary Care Provider] - Within 2 Weeks Disposition Disposition (needs filled in before D/C Order can be placed): Home, Self Care Charges/Coding Visit Charges Inpatient E&M: 52156 Disch Hosp
== END 2022-04-06 17:43 | disposition home or self-care (01) | DRG 246 ==
LOC: ED 04-05 → ICU 04-05 00:17 → PCU 04-05 20:12
PROVIDERS: Admitting Provider Hospitalist; Emergency Provider Emergency Medicine; PCP Internal Medicine; Referring Provider Internal Medicine Cardiovascular Disease; Visit Provider Internal Medicine
DX: I21.11 ST elevation (STEMI) myocardial infarction involving right coronary artery (principal); I49.01 Ventricular fibrillation; I46.9 Cardiac arrest, cause unspecified; I50.31 Acute diastolic (congestive) heart failure; Z68.42 Body mass index [BMI] 45.0-49.9, adult; I42.9 Cardiomyopathy, unspecified; I27.20 Pulmonary hypertension, unspecified; F31.9 Bipolar disorder, unspecified; E66.01 Morbid (severe) obesity due to excess calories; E11.65 Type 2 diabetes mellitus with hyperglycemia; I11.0 Hypertensive heart disease with heart failure; L40.50 Arthropathic psoriasis, unspecified; I25.10 Atherosclerotic heart disease of native coronary artery without angina pectoris; F17.210 Nicotine dependence, cigarettes, uncomplicated; E78.5 Hyperlipidemia, unspecified; I35.1 Nonrheumatic aortic (valve) insufficiency; R55 Syncope and collapse; Z82.49 Family history of ischemic heart disease and other diseases of the circulatory system
CPT/HCPCS: 36415; 71045; 80048; 80053; 80061; 82962; 84484; 85025; 85027; 85347; 85610; 85730; 87428; 92928; 92941; 93005; 93306; 93458; 97802; 99285; 99406; J7030; Q9967; A4216; C1725; C1769; C1874; C1887; C1894; C9600; C9606; J1940

== ENCOUNTER 2022-04-15 14:44 | Emergency (ER) | payer MEDICARE, MEDICAID, SELFPAY ==
[2022-04-15 14:45] VITALS: BP 154/73; PULSE 66; RESP 15; TEMP 36.3; O2SAT 100; BMI 50.1
--- NOTE | 2022-04-15 14:53 | EKG12_ITS ---
Test Reason : SYNCOPE Blood Pressure : / mmHG Vent. Rate : 060 BPM Atrial Rate : 060 BPM P-R Int : 182 ms QRS Dur : 092 ms QT Int : 430 ms P-R-T Axes : 061 053 040 degrees QTc Int : 430 ms Normal sinus rhythm Low voltage QRS (Limb Leads) Confirmed by DASHAWN CARRANZA, ZOILA ([id number]), editorial manager CORDELIA SCOTT ([id number]) on 04/18/2022 11:02:23 AM Referred By: GENE Confirmed By:ZOILA TAMEZ MD
--- NOTE | 2022-04-15 15:11 | EDS_ITS ---
HPI History of Present Illness Chief Complaint: Syncope Detail of Chief Complaint: Single episode with no prodrome Informant: patient Onset/Context/Timing Onset: Today and Hours Context: Sudden Onset Timing: Intermittent Quality: Syncope with collapse Location: Home Current Severity: Gone Maximum Severity: Syncopal episode with no prodrome or symptoms Worsened by: Unknown Relieved by: Not citrus picker Associated Symptoms Associated Symptoms: No associated symptoms per patient. She informed the nurse after I had exi Narrative Narrative: Patient is a 57-year-old woman with history of type 2 diabetes, hypertension, hypercholesterolemia who had a cardiac arrest. She was recently diagnosed with NE approximately 2 weeks ago. She states she had 2 stents placed. Patient is presently on aspirin, Brilinta, statin, hypertensive medications. She states she is compliant with her meds. She states she was eating when the syncopal episode happened. She removed food from her mouth. She cannot state why she specifically moved for 4 mile prior to this occurring. She states she did not have any pain. She may have been short of breath. She denied nausea. She was not told that she was pale. She apparently was incontinent. When she had prior similar so she was incontinent. There is no history of seizures. Unknown whether she had a postictal period. There is no mention of this in the EMS report. Presently patient has no symptoms. She denies headache, visual, ocular auditory symptoms. She denies chest pain, shortness of breath, nausea, vomiting. She denies leg pain, swelling, discoloration and there is no history of VTE. She denies black or maroon-colored stool. She denies symptoms of hypoglycemia. Prior similar symptoms: Yes Recent Illness/Hospitalization: Yes [facility] Medical History Anxiety Atherosclerosis of coronary artery of [place] heart Back pain Bipolar disorder Bronchitis Cardiac arrest with ventricular fibrillation Cardiomyopathy Coronary artery disease CPAP (continuous positive airway pressure) dependence Depression Diabetes mellitus, type II Hiatal hernia High cholesterol History of stress test HLD (hyperlipidemia) Migraines Obesity (BMI 30-39.9) Post-menopausal Seizures Sleep apnea Smoker ST elevation (STEMI) myocardial infarction Home Medications aspirin 81 mg tablet,delayed release 81 mg PO DAILY@0800 #30 tabs 04/06/22 [Rx Last Taken Unknown] atorvastatin 40 mg tablet 40 mg PO QHS #30 tabs 04/06/22 [Rx Last Taken Unknown] carvedilol 6.25 mg tablet 6.25 mg PO BID #60 tabs 04/06/22 [Rx Last Taken Unknown] folic acid 1 mg tablet 1 mg PO DAILY #30 tabs 04/06/22 [Rx Last Taken Unknown] hydrochlorothiazide 25 mg tablet 25 mg PO DAILY #30 tabs 04/06/22 [Rx Last Taken Unknown] losartan 50 mg tablet 50 mg PO DAILY #30 tabs 04/06/22 [Rx Last Taken Unknown] nitroglycerin 0.4 mg sublingual tablet 0.4 mg sublingual Q5M PRN Cardiac/Chest Pain #30 tabs 04/06/22 [Rx Last Taken Unknown] ticagrelor 90 mg tablet (Brilinta) 90 mg PO BID #60 tabs 04/06/22 [Rx Last Taken Unknown] Allergy/AdvReac Type Severity Reaction Status Date / Time tramadol HCl [From Ultram] Allergy Rash Verified 04/15/22 14:49 cariprazine [From Vraylar] AdvReac Other Verified 04/15/22 14:49 codeine AdvReac Vomiting Verified 04/15/22 14:49 hydromorphone [From Dilaudid] AdvReac Nausea/Vom/ Verified 04/15/22 14:49 Diarrhea oxycodone HCl [From Percocet] AdvReac Vomiting Verified 04/15/22 14:49 quetiapine [From Seroquel] AdvReac Other Verified 04/15/22 14:49 Family History Other Heart disease Surgical History History of back surgery History of carpal tunnel surgery History of coronary artery stent placement (~04/05/22) Hx of knee surgery Hx of neck surgery Social History (Updated 04/15/22 @ 15:[address] Osmany Arceo MD) household members: significant other Smoking Status: Current every day smoker tobacco type: cigarettes substance use type: does not use ROS ROS ED Constitutional Constitutional ED: Denies chills, fever(s), subjective, sweats or weight loss Eyes Eyes: Denies blurry vision, change in vision or diplopia ENT ENT ED: Denies ear pain, rhinorrhea or sore throat Cardiovascular Cardiovascular: Denies chest pain, orthopnea, palpitations, paroxysmal nocturnal dyspnea or racing heartbeat Respiratory/Chest Respiratory/Chest: Denies cough, dyspnea, dyspnea on exertion, orthopnea, paroxysmal nocturnal dyspnea or sputum Gastrointestinal Gastrointestinal: Denies abdominal pain, constipation, diarrhea, melena, nausea or vomiting Genitourinary Genitourinary ED: Denies dysuria, hematuria or urinary frequency Musculoskeletal Musculoskeletal: Denies arthralgias, back pain, myalgias or neck pain Integumentary Denies Abrasions or rash Neurologic Neurologic: Denies headache(s), paresthesias or weakness Psychiatric Psychiatric: Denies anxiety or depression Hematologic/Lymphatic Hematologic/Lymphatic: Reports systems reviewed and no addt'l complaints, except as documented; Denies easy bleeding or easy bruising Allergic/Immunologic Allergic/Immunologic ED: Denies mouth swelling, tongue swelling or urticaria EXAM Physical Exam Const Vital Signs: 04/15/22 14:45 04/15/22 14:52 Temperature 97.3 F L Temperature Source Temporal Pulse Rate 66 Respiratory Rate 15 Respiratory Effort Normal Respiratory Pattern Normal Blood Pressure 154/73 H Blood Pressure Mean 100 Pulse Ox 100 Oxygen Delivery Method Room Air Positive well nourished, well developed and obese General Appearance ED: well developed and NAD; Negative for cyanotic, diaphoretic or pallor Nutritional Appearance: obese HEENT Reports moist mucous membranes HEENT Narrative: Teeth normal. Uvula midline. No erythema exudate the posterior pharynx. There is no deviation tongue or protrusion. Ears normal. Nares patent. No epistaxis. No drainage. Negative for trauma or tenderness Eyes PERRL and EOMs intact bilaterally General Eye ED: Negative for pale conjunctiva or scleral icterus Neck no lymphadenopathy, supple and no JVD Neck Narrative: Trachea midline. No inspiratory extra rider Chest Wall inspection of chest normal and palpation of chest normal Resp normal respiratory effort and clear to auscultation bilaterally Cardio regular rate, regular rhythm, S1 normal heart sound, S2 normal heart sound and no murmurs GI normal to inspection, nondistended, normoactive bowel sounds, non-tender, non- distended and no masses; Negative for hepatosplenomegaly GI Narrative: There is no pulsatile mass or abdominal. Back/Spine no CVA tenderness Cervical Spine: Negative for cervical spine tenderness Thoracic Spine / Upper Back: Negative for thoracic spinal tenderness Lumbar Spine / Lower Back: Negative for lumbar spinal tenderness Extremity Extremity Narrative: There is slight edema. There is no asymmetry, discoloration, leg vein distention, palpable cords tenderness on the distribution deep venous system. Neuro oriented x3, CN's II-XII intact bilaterally and no sensory deficits noted Neuro Narrative: There is no clonus or Babinski sign. Sensorium / Orientation: alert Motor Exam: strength 5/5 throughout Psych mental status grossly normal Skin no rashes or lesions noted, no wounds and skin turgor normal General Skin Exam: Negative for jaundice or pallor MDM MDM MDM Narrative Medical decision making narrative: Patient with syncopal episode. Will place on monitor to assess for dysrhythmia. BMP was obtained to assess glucose since she is diabetic as well as CO2 anion gap. Doubt electrolytes as the cause of this. EKG was obtained to assess for any evidence of acute ischemia and change from recent EKG. Troponin was obtained to determine if this was due to cardiac ischemia since she had a cardiac arrest when she had her ST elevation NE. She apparently was defibrillated x4. CBC to rule out anemia. She does not get orthostatic symptoms. Doubt subarachnoid hemorrhage since she does not complain of headache or neck pain or stiffness. PE is unlikely since she has no respiratory symptoms or pulmonary symptoms. Patient was informed of results at approximately 1620. She was informed repeat troponin will be drawn at 1700. Patient feels normal. Her significant other is now in the room. She did not appear pale. She just collapsed. 2-hour troponin is 41 with a delta of less than 7. Therefore, will discharge to home to follow-up with cardiology as an outpatient. Lab Data Attestation: I reviewed the patient's lab results. Lab results narrative: CBC is unremarkable. Basic metabolic panel reveals an elevated creatinine from baseline. Glucose is 171. She does have history of type 2 diabetes. First troponin is normal at 32. 2 hours pending. Patient's been on the monitor since she arrived. She is had no ectopy. Labs: Laboratory Results - last 24 hr 04/15/22 04/15/22 04/15/22 15:15 15:15 15:15 WBC 7.5 RBC 3.85 L Hgb 13.4 Hct 38.0 MCV 98.7 MCH 34.8 H MCHC 35.3 RDW Std Deviation 51.2 H RDW Coeff of Erlinda 14.5 Plt Count 234 MPV 10.8 Immature Gran % (Auto) 0.900 Neut % (Auto) 75.6 H Lymph % (Auto) 14.9 L [place] % (Auto) 5.4 Eos % (Auto) 2.8 Baso % (Auto) 0.4 Absolute Neuts (auto) 5.7 Absolute Lymphs (auto) 1.12 Nucleated RBC % 0 Sodium 138 Potassium 3.6 Chloride 104 Carbon Dioxide 27.0 Anion Gap 7 BUN 20 H Creatinine 1.42 H Estim Creat Clear Calc 34.99 Est GFR (MDRD) Af Amer 49 L Est GFR (MDRD) Non-Af 41 L BUN/Creatinine Ratio 14.1 Glucose 171 H Lactic Acid 1.1 Calcium 8.8 Troponin I High Sens 32 04/15/22 17:02 WBC RBC Hgb Hct MCV MCH MCHC RDW Std Deviation RDW Coeff of Erlinda Plt Count MPV Immature Gran % (Auto) Neut % (Auto) Lymph % (Auto) [place] % (Auto) Eos % (Auto) Baso % (Auto) Absolute Neuts (auto) Absolute Lymphs (auto) Nucleated RBC % Sodium Potassium Chloride Carbon Dioxide Anion Gap BUN Creatinine Estim Creat Clear Calc Est GFR (MDRD) Af Amer Est GFR (MDRD) Non-Af BUN/Creatinine Ratio Glucose Lactic Acid Calcium Troponin I High Sens 41 EKG Initial EKG: Attestation: I personally reviewed and interpreted this EKG as follows: Interpretation: Sinus Rhythm (Ventricular rate is 60. The EKG is normal. MN interval is 182 ms. QS duration 82 ms. QT duration 4 and 30 ms. [place] is normal.) Discharge Plan Triage Chief Complaint: Syncope ED Provider: Osmany Arceo Dx/Rx/DC Orders Clinical Impression: Syncope and collapse, Atherosclerosis of coronary artery of [place] heart, History of coronary artery stent placement, JOSE (obstructive sleep apnea) Instructions: ED Fainting, Uncertain Cause Prescriptions: No Action losartan 50 mg Tablet 50 mg PO DAILY Qty: 30 2RF atorvastatin 40 mg Tablet 40 mg PO QHS Qty: 30 2RF carvedilol 6.25 mg Tablet 6.25 mg PO BID Qty: 60 2RF aspirin 81 mg Tablet,Delayed Release (Dr/Ec) 81 mg PO DAILY@0800 Qty: 30 2RF nitroglycerin 0.4 mg Tablet, Sublingual 0.4 mg sublingual Q5M PRN (Reason: Cardiac/Chest Pain) Qty: 30 0RF hydrochlorothiazide 25 mg Tablet 25 mg PO DAILY Qty: 30 0RF Brilinta 90 mg Tablet 90 mg PO BID Qty: 60 2RF folic acid 1 mg tablet 1 mg PO DAILY Qty: 30 2RF Primary Care Provider: Jericho Nieves Referrals: Shalini Savage MD [Med Staff - Active Staff] - 3-5 Days Jericho Nieves MD [Primary Care Provider] - Disposition Disposition: Home, Self Care
[2022-04-15 15:37] LABS: Absolute Lymphocyte Count 1.12 X10^3/uL (0.83-4.51); Absolute Neutrophil Count 5.7 X10^3/uL (2.0-7.7); Basophil# 0.03 X10^3/uL; Basophil% 0.4 % (0-1); Eosinophil# 0.21 X10^3/uL; Eosinophils% 2.8 % (0-5); Hemoglobin 13.4 g/dL (12.0-15.0); Lymphocyte # 1.12 X10^3/ul (0.83-4.51); Lymphocyte % 14.9 % (19-41); Mean Corp Hgb Conc 35.3 g/dL (32-36); Mean Corpuscular Hgb 34.8 pg (27.0-32.0); Mean Corpuscular Volume 98.7 fL (81-99); Mean Platelet Vol. 10.8 fl (6.2-12.0); Monocyte# 0.41 X10^3/uL; Monocyte% 5.4 % (0-10); NRBC Flagged by Analyzer 0 % (0-5); Neutrophil % 75.6 % (47-70); Platelet Count 234 K/mm3 (150-450); RBC Distribution Width CV 14.5 % (11.6-14.6); RBC Distribution Width SD 51.2 fl (35.1-43.9); Red Blood Count 3.85 M/mm3 (4.2-5.4); White Blood Count 7.5 K/mm3 (4.4-11.0)
[2022-04-15 15:50] LABS: Anion Gap 7 (5-15); BUN 20 mg/dL (7-18); BUN/Creat Ratio 14.1 RATIO (10-20); Calcium,Total 8.8 mg/dL (8.5-10.1); Chloride 104 mmol/L (98-107); Creatinine, Serum 1.42 mg/dL (0.55-1.02); EST Glomerular Filtration Rate 41 mL/min (>60); Est Glom Filt Rate - Afr Amer 49 mL/min (>60); Estimated Creatinine Clearance 34.99 ml/min; Glucose 171 mg/dL (74-106); Potassium 3.6 mmol/L (3.5-5.1); Sodium Level 138 mmol/L (136-145); Troponin-I HS 32 pg/mL (3.0-54.0)
[2022-04-15 16:04] LABS: Lactic Acid 1.1 mmol/L (0.4-1.9)
[2022-04-15 17:26] LABS: Troponin-I HS (w/2H Reflex) 41 pg/mL (3.0-54.0)
[2022-04-15 17:59] VITALS: BP 134/78; PULSE 92; RESP 18; O2SAT 99
[2022-04-15 19:05] LABS: Reflex Troponin-HS? (from REC) Y
== END 2022-04-15 17:59 | disposition home or self-care (01) ==
PROVIDERS: Emergency Provider Emergency Medicine; PCP Internal Medicine; Visit Provider Emergency Medicine
DX: R55 Syncope and collapse (principal); I42.9 Cardiomyopathy, unspecified; E11.9 Type 2 diabetes mellitus without complications; I10 Essential (primary) hypertension; F17.210 Nicotine dependence, cigarettes, uncomplicated; E78.00 Pure hypercholesterolemia, unspecified; I25.10 Atherosclerotic heart disease of native coronary artery without angina pectoris; E78.5 Hyperlipidemia, unspecified; G47.33 Obstructive sleep apnea (adult) (pediatric); Z95.5 Presence of coronary angioplasty implant and graft
CPT/HCPCS: 80048; 83605; 84484; 85025; 93005; 99285; A4216

== ENCOUNTER 2022-05-17 10:50 | Observation (INO) | payer MEDICARE, MEDICAID, SELFPAY ==
[2022-05-16 10:35] VITALS: BMI 47.9
[2022-05-17] VITALS (10 sets, daily range): BP systolic 114–156; BP diastolic 50–76; PULSE 54–68; RESP 16–18; TEMP 36.5–36.6; O2SAT 95–98
--- NOTE | 2022-05-17 10:51 | CL.I_ITS ---
Patient Name: JUAN EAGLE Study Date: 05/17/2022 Performing: Shalini Savage MD Ht: 62 inches 157.48 cm : 1965 Wt: 262 lbs 118.84 kg Age: 57 Gender: female BSA: 2.14 PROCEDURE(S) PERFORMED IC12-(66034/C9600)YADEIL W/WO PTCA, SINGLE CORONARY ARTERY IC12-(84027/C9600)YADIEL W/WO PTCA, SINGLE CORONARY ARTERY CLINICAL PROFILE AND CO-MORBIDITIES Indications: Stable Known CAD Heart Failure: None CAD Presentations: No Sxs, no angina. CONCLUSIONS Successful YADIEL Prox LAD using Resolute Jackson 3.0x15 mm, optimized proximally using 3.5 mm balloon Successful YADIEL distal RCA into RPDA using Rsolute Abilio 2.0x12 mm, post-dilated using 2.25 mm balloon RECOMMENDATIONS ASA Indefinitley Brilinta for at least 12 months DESCRIPTION OF PROCEDURE The patient arrived to the procedure lab. The risks and benefits of the procedure as well as a full description of our services here and current unavailability of surgical backup were fully explained to the patient and/or their significant other prior to the catheterization. The Timeout was completed, verifying the correct patient and procedure. The patient's procedural site was prepped and draped in the usual fashion. Local anesthetic was given subcutaneously to right radial region with Lidocaine 2%. Using a modified Seldinger technique, arterial access was obtained via the right radial artery, a 6Fr sheath was inserted.. XB3 Guide catheter was inserted and engaged into the LCA. Runthrough Guide wire was advanced to the LAD. Resolute Abilio 3.0 x 15 Drug Eluting stent was inserted. Drug Eluting stent was advanced across the lesion in the LAD, proximal. Angiogram performed pre stent deployment. Angiogram performed post stent deployment. NC Euphora 3.0 x 12 Balloon catheter was inserted. Balloon catheter was advanced across lesion in the LAD, proximal. Angiogram performed post stent deployment. NC Euphora 3.5 x 6 Balloon catheter was inserted. Balloon catheter was advanced across lesion in the LAD, proximal. Angiogram performed post balloon dilatation. JR4 Guide catheter was inserted and engaged into the RCA. Runthrough Guide wire was advanced to the RCA. Resolute Abiilo 2.0 x 12 Drug Eluting stent was inserted. Drug Eluting stent was advanced across the lesion in the right coronary, distal. Angiogram performed post stent deployment. NC Euphora 2.25 x 8 Balloon catheter was inserted. Balloon catheter was advanced across lesion in the right coronary, distal. The arterial sheath was pulled and a TR Band was applied for hemostasis INTERVENTION INFORMATION LESION SITE: LAD (Proximal) Lesion Complexity: Non-High/Non-C, In-stent restenosis: No, lesion length: 13 mm Pre Stenosis: 70 % Pre intervention YECENIA flow: 3 PROCEDURE: Drug Eluting Stent with post dilatation Post Stenosis: 0 % Post intervention YECENIA flow: 3 Lesion Devices: Terumo .014 180cm Runthrough Extra Floppy straight Cordis 6 Fr XB3.0 100cm Guide Catheter Medtronic NC EUPHORA RX 3.0x12 BALLOON Medtronic NC EUPHORA RX 3.5x06 BALLOON Medtronic Resolute Abilio RX YADIEL 3.0x15 LESION SITE: RCA (Distal) Lesion Complexity: Non-High/Non-C, In-stent restenosis: No, lesion length: 10 mm Pre intervention YECENIA flow: 3 PROCEDURE: Drug Eluting Stent with post dilatation Post Stenosis: 0 % Post intervention YECENIA flow: 3 Lesion Devices: Terumo .014 180cm Runthrough Extra Floppy straight Cordis 6 Fr JR4 100cm Guide Catheter Medtronic Resolute Jackson RX YADIEL 2.0x12 Medtronic NC EUPHORA RX 2.25x08 BALLOON COMPLICATIONS No Complications PROCEDURE MEDICATIONS Versed 2 mg IV Fentanyl 50 mcg IV Oxygen: 2 L/min via nasal cannula Heparin given IA 05/17/2022 09:57:23 Heparin 8000 unit(s) IV 05/17/2022 09:57:31 Nitro 200 mcg IC 05/17/2022 10:14:28 Nitro 200 mcg IC 05/17/2022 10:14:28 Verapamil 2.5mg, Ntg 200mcgs, 2000 units of Heparin given IA 05/17/2022 09:57:23 SUMMARY OF HEMODYNAMIC DATA Time AIR REST ECG 07:50:57 AO 129/65 (90) SA 10:01:03 Signed By Shalini Savage MD On 05/17/2022 10:50:40 Shalini Savage MD
--- NOTE | 2022-05-17 11:27 | EKG12_ITS ---
Test Reason : AM EKG Blood Pressure : / mmHG Vent. Rate : 048 BPM Atrial Rate : 048 BPM P-R Int : 172 ms QRS Dur : 092 ms QT Int : 456 ms P-R-T Axes : 063 061 061 degrees QTc Int : 407 ms Sinus bradycardia Otherwise normal ECG Confirmed by DASHAWN CARRANZA, ZOILA ([id number]), food expeditor CORDELIA SCOTT ([id number]) on 05/23/2022 10:01:23 AM Referred By: Shalini Savage Confirmed By:ZOILA TAMEZ MD
[2022-05-17] MEDS: 0.9% Normal Saline 1,000 ML 150 ML IV (11:34)
[2022-05-17 13:38] LABS: ACT Activated Clotting Time 311 sec (74-137)
[2022-05-17 13:39] LABS: ACT Activated Clotting Time 215 sec (74-137)
[2022-05-17] MEDS: Acetaminophen 325 MG Tablet 650 MG PO (15:48)
[2022-05-17] MEDS: ALPRAZolam 0.5 MG Tablet 1 MG PO (15:49)
[2022-05-17] MEDS: ALPRAZolam 0.5 MG Tablet PO (21:21)
[2022-05-17] MEDS: Carvedilol 6.25 MG Tablet PO (21:22)
[2022-05-17] MEDS: TICAGRELOR 90 MG TABLET PO (21:22)
[2022-05-17] MEDS: Atorvastatin Calcium 40 MG Tablet PO (21:22)
[2022-05-17] MEDS: 0.9% Saline Lock 10 ML Syringe IV (21:23)
[2022-05-17] MEDS: Pregabalin 75 MG Capsule PO (21:31)
[2022-05-18 03:00] VITALS: PULSE 55
[2022-05-18 03:34] VITALS: BP 127/66; PULSE 59; RESP 18; TEMP 36.4; O2SAT 97
[2022-05-18] MEDS: ALPRAZolam 0.5 MG Tablet PO (05:02)
[2022-05-18 05:18] LABS: Hematocrit 37.1 % (37-47); Hemoglobin 13.1 g/dL (12.0-15.0); Mean Corp Hgb Conc 35.3 g/dL (32-36); Mean Corpuscular Hgb 33.9 pg (27.0-32.0); Mean Corpuscular Volume 96.1 fL (81-99); Mean Platelet Vol. 10.1 fl (6.2-12.0); Platelet Count 217 K/mm3 (150-450); RBC Distribution Width CV 14.6 % (11.6-14.6); RBC Distribution Width SD 51.3 fl (35.1-43.9); Red Blood Count 3.86 M/mm3 (4.2-5.4); White Blood Count 7.3 K/mm3 (4.4-11.0)
[2022-05-18 05:42] LABS: ALB/GLOB Ratio 1.2 RATIO (0.9-2.4); AST(SGOT) 116 U/L (15-37); Alanine Aminotransfer ALT/SGPT 169 U/L (13-56); Albumin, Serum 3.3 g/dL (3.2-5.0); Alkaline Phosphatase 86 U/L (45-117); Anion Gap 8 (5-15); BUN 11 mg/dL (7-18); BUN/Creat Ratio 11.4 RATIO (10-20); Calcium,Total 8.7 mg/dL (8.5-10.1); Chloride 111 mmol/L (98-107); Creatinine, Serum 0.97 mg/dL (0.55-1.02); EST Glomerular Filtration Rate 63 mL/min (>60); Est Glom Filt Rate - Afr Amer 76 mL/min (>60); Estimated Creatinine Clearance 51.22 ml/min; Globulin 2.8 g/dL (2.2-4.2); Glucose 99 mg/dL (74-106); Potassium 3.6 mmol/L (3.5-5.1); Protein, Total 6.1 g/dL (6.4-8.2); Sodium Level 142 mmol/L (136-145)
--- NOTE | 2022-05-18 08:05 | CRPHASE1_ITS ---
Patient Communication Former Patient:: Phase I PHII Cardiac Rehab Discussed with Patient:: Yes Guide to Cardiac Rehab Given to Patient:: Yes Cardiac Rehab Facility Choice List Given to Patient:: Yes Director Of Housing And Energy Services:: Dr. Savage Cardiac Rehabilitation Info Cardiac Rehabilitation Program Information: Cardiac Rehab The cardiac rehab team at [facility] consists of highly skilled exercise physiologists, nurses, respiratory therapists and physicians working together with you. Our purpose is to help you have a full recovery and achieve the goals you set for yourself. Over the years many of our patients have returned to activities they assumed they would never do again! We can help restore your confidence and motivation to make lifestyle changes that can have a significant impact on your health and quality of life! We can help answer questions and concerns you may have about exercise, lifestyle, medications, diet, stress and anxiety which are common following a h ospitalization. WE monitor ECG and vital signs during exercise and discuss your progress with you and report to your physician(s). Cardiac Rehab is proven to help reduce readmissions, improve functional capacity and lower recurrence of problems with your heart. Our Cardiac Rehab program is Certified by the [place] [employer] Pulmonary [employer] (AACVPR) and Ac credited by the [employer] through our [facility]. You can contact us at . We invite you to call us with your questions or to get started in our program. If you have other questions or concerns be sure to ask your physician/provider during your follow-up visit. WE look forward to seeing you!
--- NOTE | 2022-05-18 08:06 | CRPH1.INSTRU ---
General Education CAD and cardiac anatomy and function:: Patient communicates acknowledgment Explanation of diagnoses and procedures:: Patient communicates acknowledgment Sign/Symptoms of [place]:: Patient communicates acknowledgment Antiplatelet therapy: Patient communicates acknowledgment Smoking Recommendations Include:: Second-hand smoke recommendation Nicotine/Smoking Response Code:: Patient communicates acknowledgment Dyslipidemia Patient Dyslipidemia Risk Factors Are:: Total Cholesterol, Triglycerides Recommendations Include:: Lipid profile not available Dyslipidemia Response Code:: Patient communicates acknowledgment Overweight/Obesity Patient Overweight/Obesity Risk Factors Are:: Obesity - > or = 30 Recommendations Include:: Weight loss of 5-10%, Reduced calorie diet, Exercise 5-7 times/week Overweight/Obesity:: Patient communicates acknowledgment Hypertension Recommendations Include:: Maintain BP <130/85, Decrease/maintain normal body weight Hypertension:: Patient communicates acknowledgment Heart Disease Patient Heart Disease Risk Factors Are:: Previous cardiac event Recommendations Include:: Educated family members of their risk Heart Disease Response Code:: Patient communicates acknowledgment Diabetes Recommendations Include:: Maintain fasting blood sugars 70-110 md/dL, Maintain HgbA1c of 6% or less, Monitor blood sugar as prescribed Diabetes:: Patient communicates acknowledgment Metabolic Syndrome Patient Metabolic Syndrome Risk Factors Are [3 of 5]:: Fasting blood sugar > 100 mg/dL, Waist circumference > 35 [female] or 40 [male], High triglyceride >150, Hypertension, Low HDL <40 [male] or < 50 [female] Recommendations Include:: Reinforce compliance to risk factor modifications Metabolic Syndrome Response Code:: Patient communicates acknowledgment Sedentary Patient Sedentary Risk Factors Are:: Lack of regular exercise Recommendations Include:: Benefits of regular exercise, Discussed home walking program, Monitored Outpatient Cardiac Rehab Sedentary Response Code:: Patient communicates acknowledgment Stress Recommendations Include:: Identification of stressors, and assessment of coping skills, Stress management techniques Stress Response Code:: Patient communicates acknowledgment
[2022-05-18] MEDS: Folic Acid 1 MG Tablet PO (08:27)
[2022-05-18] MEDS: Aspirin E.C. 81 MG Tablet PO (08:27)
[2022-05-18] MEDS: Pregabalin 75 MG Capsule PO (08:27)
[2022-05-18] MEDS: Losartan Potassium 50 MG Tablet PO (08:28)
[2022-05-18] MEDS: TICAGRELOR 90 MG TABLET PO (08:28)
[2022-05-18] MEDS: lamoTRIgine 150 MG Tablet PO (08:28)
[2022-05-18] MEDS: Escitalopram Oxalate 20 MG Tablet PO (08:28)
[2022-05-18 08:30] VITALS: BP 147/67; PULSE 55; RESP 20; TEMP 36.3; O2SAT 98
--- NOTE | 2022-05-18 08:39 | PN.CARD_ITS ---
Subjective Subjective Patient seen and evaluated. Appears to be doing well. No complaints. Objective Data Vital Signs: Vital Signs Temp Pulse Resp BP Pulse Ox O2 Del Method 97.5 F L 59 L 18 127/66 H 97 Room Air 05/18/22 03:34 05/18/22 03:34 05/18/22 03:34 05/18/22 03:34 05/18/22 03:34 05/18/22 04:00 Oxygen Delivery Method Room Air Weight: 262 lb Body Mass Index (BMI) 47.9 Intake & Output: Intake and Output for Last 24 Hours 05/16/22 05/17/22 05/18/22 23:59 23:59 23:59 Intake Total 1450 / 1750 500 / 500 Balance 1450 / 1750 500 / 500 Lab / Micro Data Result Diagrams: 05/18/22 04:42 05/18/22 04:42 Labs: Laboratory Results - last 24 hr 05/17/22 10:10: Activated Clotting Time 311 H 05/17/22 10:45: Activated Clotting Time 215 H 05/18/22 04:42: WBC 7.3, RBC 3.86 L, Hgb 13.1, Hct 37.1, MCV 96.1, MCH 33.9 H, MCHC 35.3, RDW Std Deviation 51.3 H, RDW Coeff of Erlinda 14.6, Plt Count 217, MPV 10.1 05/18/22 04:42: Sodium 142, Potassium 3.6, Chloride 111 H, Carbon Dioxide 23.0, Anion Gap 8, BUN 11, Creatinine 0.97, Estim Creat Clear Calc 51.22, Est GFR (MDRD) Af Amer 76, Est GFR (MDRD) Non-Af 63, BUN/Creatinine Ratio 11.4, Glucose 99, Calcium 8.7, Total Bilirubin 0.80, AST 116 H, ALT 169 H, Alkaline Alex sphatase 86, Total Protein 6.1 L, Albumin 3.3, Globulin 2.8, Albumin/Globulin Ratio 1.2 Cardiology Labs/Tests 05/18/22 04:42: WBC 7.3, RBC 3.86 L, Hgb 13.1, Hct 37.1, MCV 96.1, MCH 33.9 H, MCHC 35.3, Plt Count 217, MPV 10.1 05/18/22 04:42: Sodium 142, Potassium 3.6, Chloride 111 H, Carbon Dioxide 23.0, Anion Gap 8, BUN 11, Creatinine 0.97, Est GFR (MDRD) Af Amer 76, Est GFR (MDRD) Non-Af 63, BUN/Creatinine Ratio 11.4, Glucose 99, Calcium 8.7, Total Bilirubin 0.80 Rhythm: EKG: ECHO: Stress Test: Cardiac Cath: PCI: CT Surgery: Holter monitor: EPS: PPM: CXR: Chest CT Scan: Physical Exam Const alert, oriented x3 and no apparent distress General Appearance: cooperative HEENT hearing grossly normal bilaterally Head and Scalp: atraumatic Eyes EOMs intact bilaterally Neck General: normal visual inspection Chest inspection of chest normal and palpation of chest normal Resp normal respiratory effort Auscultation: clear to auscultation bilaterally Cardio regular rate, regular rhythm, S1 normal heart sound and S2 normal heart sound Jugular Venous Distention: JVD GI normal to inspection, nondistended, normoactive bowel sounds Extremity normal capillary refill and no pedal edema Peripheral Pulses: Yes pulses 2+ throughout and femoral pulses present Skin no rashes or lesions noted Neuro oriented x3 and CN's II-XII intact bilaterally Psych Appearance: grossly normal and appropriate Assessment & Plan Assessment/Plan (1) History of coronary artery stent placement: PLAN: Patient has known coronary artery disease and presented for staged procedure of the LAD as well as the distal right coronary artery. This was carried out successfully. Patient has no complaints and will be discharged for outpatient follow-up and cardiac rehabilitation. (2) Hypertension: PLAN: Her blood pressure appears to be in excellent control I would not suggest that we make any changes at this particular time. Thank you for allowing me to participate in the care of your patient. Please don't hesitate to call if any issues arise.
[2022-05-18 08:40] VITALS: O2SAT 95
--- NOTE | 2022-05-18 08:45 | PCM.DC ---
Discharge Instructions Diet Discharge Diet: No restrictions Activity Discharge Activity: Return to Normal Activity Additional Activity Instructions:: You must have someone drive you home. Do not drive until instructed by your doctor. You must have someone stay with you all night after your test. Rest in bed or on the couch until the next morning. Limit the number of times you go up and down stairs the day of your test. Apply pressure to the puncture site if you sneeze or cough. Dressing / Incision Call your doctor if your incision/area has: Increased Pain/ Swelling, Increased Redness, Foul Smelling Discharge and Swelling at the incision site Call your doctor if you observe: Fever of 101 or Higher Additional Dressing/Incision Instructions:: Keep the dressing (bandage) on until the next morning. You may then shower, but do not take a tub bath for 5 days after your test. It is normal to have some tenderness and discomfort at the puncture site. Sometimes bruising also occurs. However, if pain, numbness, or coldness occurs below the puncture site (in your leg, toes, arms or fingers) call your doctor at once. You may have a small, marble sized knot at the puncture site. This is normal. Do not rub it. It will go away in 4-6 weeks. Bleeding can occur from the area where the puncture was done. Blood may spurt or drip from the site. If blood spurts, apply pressure right away to stop bleeding and call 911. Although rare, bleeding into the tissue (hematoma) can also occur. If this happens, a large, firm area goose egg under the skin will appear. If any of these occur, lie down as flat as you can and have someone apply firm pressure to the cath site with a gauze pad or a clean washcloth for 10-15 minutes. Call 911 or go to the Emergency Department. Follow Up Care Test Results: Test results from this visit will be discussed in further detail at your follow-up appointment, if applicable. Discharge Plan Admission Admit Date/Time: 05/17/22 10:50 Attending Provider: Shalini Savage Primary Care Provider: Jericho Nieves Discharge Orders/Prescriptions Prescriptions: No Action escitalopram oxalate 20 mg tablet 20 mg PO DAILY pregabalin 75 mg capsule 75 mg PO BID Label Comments: TAKE 1 TABLET BY MOUTH TWICE DAILY buprenorphine 10 mcg/hour patch weekly 1 patch transdermal QWEEK lamotrigine 150 mg tablet 150 mg PO DAILY Ingrezza 80 mg capsule 80 mg PO DAILY losartan 50 mg Tablet 50 mg PO DAILY Qty: 30 2RF atorvastatin 40 mg Tablet 40 mg PO QHS Qty: 30 2RF carvedilol 6.25 mg Tablet 6.25 mg PO BID Qty: 60 2RF aspirin 81 mg Tablet,Delayed Release (Dr/Ec) 81 mg PO DAILY@0800 Qty: 30 2RF nitroglycerin 0.4 mg Tablet, Sublingual 0.4 mg sublingual Q5M PRN (Reason: Cardiac/Chest Pain) Qty: 30 0RF Brilinta 90 mg Tablet 90 mg PO BID Qty: 60 2RF folic acid 1 mg tablet 1 mg PO DAILY Qty: 30 2RF Referrals / Follow Up: Jericho Nieves MD [Primary Care Provider] - Disposition Disposition (needs filled in before D/C Order can be placed): Home, Self Care
--- NOTE | 2022-05-18 11:00 | EKG12_ITS ---
Test Reason : POST STENT PLACEMENT Blood Pressure : / mmHG Vent. Rate : 050 BPM Atrial Rate : 050 BPM P-R Int : 178 ms QRS Dur : 088 ms QT Int : 440 ms P-R-T Axes : 055 055 056 degrees QTc Int : 401 ms Sinus bradycardia Low voltage QRS Borderline ECG When compared with ECG of 15-APR-2022 14:53, No significant change was found Confirmed by AMADO CARRANZA, ROSA ([id number]), assistant editor CORDELIA SCOTT ([id number]) on 05/24/2022 1:53:27 PM Referred By: Shalini Savage Confirmed By:ZAINAB FISCHER MD
== END 2022-05-18 08:45 | disposition home or self-care (01) ==
LOC: PCU 11:05
PROVIDERS: Admitting Provider Internal Medicine Cardiovascular Disease; PCP Internal Medicine; Referring Provider Internal Medicine Cardiovascular Disease; Visit Provider Internal Medicine Cardiovascular Disease
DX: I25.10 Atherosclerotic heart disease of native coronary artery without angina pectoris (principal); F31.9 Bipolar disorder, unspecified; Z68.42 Body mass index [BMI] 45.0-49.9, adult; E11.9 Type 2 diabetes mellitus without complications; Z86.74 Personal history of sudden cardiac arrest; Z95.5 Presence of coronary angioplasty implant and graft; I25.2 Old myocardial infarction; Z79.899 Other long term (current) drug therapy; Z79.82 Long term (current) use of aspirin; F41.9 Anxiety disorder, unspecified; E78.00 Pure hypercholesterolemia, unspecified; K44.9 Diaphragmatic hernia without obstruction or gangrene; E66.9 Obesity, unspecified; G47.30 Sleep apnea, unspecified; F17.210 Nicotine dependence, cigarettes, uncomplicated
CPT/HCPCS: 36415; 80053; 85027; 85347; 92928; 93005; 96360; 96361; 99152; 99153; 99221; C1725; C1874; J7030; J7040; Q9967; A4216; C1769; C1887; C1894; C9600; G0378

== ENCOUNTER → 2022-06-08 | Outpatient (CLI) | payer MEDICARE, MEDICAID, SELFPAY ==
--- NOTE | 2022-06-08 12:59 | PCM.CR.HP2 ---
CR - History & Physical - General Arrival date:: 06/08/22 Arrival time:: 12:59 Date of Referral:: 05/17/22 Date of CR Evaluation:: 06/08/22 Referring Physician: Dr. Savage Primary Diagnosis: STEMI, PCI with coronary stent, cardiac arrest - History of Present Cardiac Event Onset Date: Enter Onset Date of cardiac illnesses in Comment field below PTCA or coronary stenting:: Yes - 05/17/22 - Sleep Disorder Evaluation Hx of Sleep Apnea: Yes Do you snore loudly (louder than talking or can be heard through closed doors)?: No Do you often feel tired/ fatigued/ sleepy during daytime?: No Has anyone observed you stop breathing during sleep?: No History of Hypertension (for STOP score): Yes - uses machine STOP Results: Negative - Medications Home Medications: Ambulatory Orders Medication Instructions Recorded nitroglycerin 0.4 mg sublingual 0.4 mg sublingual Q5M PRN 04/06/22 tablet Cardiac/Chest Pain #30 tabs buprenorphine 10 mcg/hour weekly 1 patch transdermal QWEEK 05/08/22 transdermal patch escitalopram oxalate 20 mg tablet 20 mg PO DAILY 05/08/22 lamotrigine 150 mg tablet 150 mg PO DAILY 05/08/22 pregabalin 75 mg capsule 75 mg PO BID 05/08/22 aspirin 81 mg tablet,delayed 81 mg PO DAILY@0800 #90 tabs 06/05/22 release atorvastatin 40 mg tablet 40 mg PO QHS #90 tabs 06/05/22 carvedilol 6.25 mg tablet 6.25 mg PO BID #180 tabs 06/05/22 dulaglutide 0.75 mg/0.5 mL 0.75 mg subcut QWEEK 06/05/22 subcutaneous pen injector (Trulicity) folic acid 1 mg tablet 1 mg PO DAILY #90 tabs 06/05/22 losartan 50 mg tablet 50 mg PO DAILY #90 tabs 06/05/22 methotrexate sodium 2.5 mg tablet 15 mg PO QWEEK 06/05/22 ticagrelor 90 mg tablet (Brilinta) 90 mg PO BID #60 tabs 06/05/22 - Allergies Allergies/Adverse Reactions: Allergies tramadol HCl [From Ultram] Allergy (Verified 06/05/22 14:12) Rash cariprazine [From Vraylar] Adverse Reaction (Verified 06/05/22 14:12) Other codeine Adverse Reaction (Verified 06/05/22 14:12) Vomiting hydromorphone [From Dilaudid] Adverse Reaction (Verified 06/05/22 14:12) Nausea/Vom/Diarrhea oxycodone HCl [From Percocet] Adverse Reaction (Verified 06/05/22 14:12) Vomiting quetiapine [From Seroquel] Adverse Reaction (Verified 06/05/22 14:12) Other Advanced Directives - Advanced Directives Power of Stockroom Associate: No Living Will: No Advance Directives Information Provided: No Advance Directives on File: No DNR Order?:: No Past Medical History - Covid-19 Screening Has a serious heart condition:: Yes Severely obese (Body Mass Index of 40 or higher):: Yes Diabetic:: Yes - Past Medical Illness Medical History: Past Medical History (Last Updated 06/05/22 @ 14:[address] Shalini Savage MD) Anxiety F41.9 Atherosclerosis of coronary artery of [place] heart I25.10 Back pain M54.9 Low back pain, stenosis, arthritis, B/L leg pain Bipolar disorder F31.9 Bronchitis J40 chronic Cardiac arrest with ventricular fibrillation I46.9, I49.01 Cardiomyopathy I42.9 Coronary artery disease I25.10 CPAP (continuous positive airway pressure) dependence Z99.89 Depression F32.9 Diabetes mellitus, type II E11.9 Hiatal hernia K44.9 High cholesterol E78.00 History of stress test Z92.89 [facility] 2014 HLD (hyperlipidemia) E78.5 Migraines G43.909 Obesity (BMI 30-39.9) E66.9 Post-menopausal Z78.0 Seizures R56.9 > 25 years ago Sleep apnea G47.30 Smoker F17.[address] elevation (STEMI) myocardial infarction I21.3 - Past Surgical History Surgical History: Past Surgical History (Last Reviewed 06/05/22 @ 14:17 by Disha Martinez) History of back surgery Z98.890 Multiple injections, Lumbar discectomy, ablation History of carpal tunnel surgery Z98.890 History of coronary artery stent placement Onset Date: ~05/17/22 Z95.5 PTCA/YADIEL Mid LCx Resolute [place] 3.0x18mm and YADIEL Prox RCA Resolute [place] 2.5x15mm (04/05/22) YADIEL Prox LAD Resolute [place] 3.0x15mm and YADIEL distal RCA into RPDA Resolute [place] 2.0x12mm (05/17/22) Hx of knee surgery Z98.890 Left knee Meniscus Hx of neck surgery Z98.890 Surgical History: - - Discectomy, carpal tunnel release, left arthroscopic knee surgery with medial meniscectomy and chondroplasty of the medial patellofemoral compartments and most recent 01/14/18 L TKR. - Family History Summary Family History: Family History (Last Reviewed 06/05/22 @ 14:17 by Disha Martinez) Father CHF (congestive heart failure) Other Heart disease Social History - Smoking History Smoking Status: Current every day smoker Years Smokin - half a pack a day Hx Tobacco Use: Yes Hx Smoking Exposure: Yes - Alcohol Use Alcohol Usage: No - Substance Abuse Hx Substance Use: No - Hobbies, Recreation, Social Activities Hobbies: None - bingo Recreational Activities: I am able to engage in all my recreational activities Social Environment - Status Marital Status: Single - lives with boyfriend - Current Living Arrangements Living Environment:: Family - Children How many children do you have?: 0 - Safety Do you feel safe in your surroundings?: Yes - Assistance Do you need any assistance at home?: no Review of Systems - Review of Systems Hints: Right click = Denies ([place]). Left click = Reports ([place]) Review of Present Symptoms: Reports: Shortness of Breath with Exertion, Fatigue, Heart Arrhythmia/Irregularities, Appetite - Normal, Sleep - Normal. Denies: Shortness of Breath at Rest, PVD, Operative Discomfort, Angina, Wound Healing, Dizziness/Lightheadedness, Appetite - Special Diet, Sexual Changes - Pain Is Patient Pain Free?: No Pain Location: back, lower extremity Pain Level: 5/10 Risk Factor Assessment - Vital Signs Pulse Ox: 97 - Pulse Pulse Rate: 59 Pulse Rhythm: Regular - Hypertension Blood Pressure Sitting - Left Arm: 128/66 - Stress Stress: Long-standing - Diabetes Diabetic History: Type II - Obesity Height: 5 ft 2 in Weight:: 118.841 kg Weight in Pounds: 262.0 lbs Body Mass Index (BMI): 47.9 Nutritional Referral for Obesity: Yes - Physical Inactivity Physical Inactivity: Recreational activity - walking in home - Risk Stratification Risk Guidelines: Highest Risk: Risk Factor for Smoking, Risk Factor for Dyslipidemia, Risk Factor for Diabetes, Risk Factor for Obesity, Risk Factor for Hypertension, Risk Factor for Sedentary Lifestyle, Risk Factor for Depression - Family History Family History: Family History (Last Reviewed 06/05/22 @ 14:17 by Disha Martinez) Father CHF (congestive heart failure) Other Heart disease Motivation - Motivation to Participate On a scale of 1 to 10, how prepared are you to commit to attending program?: 10 What do you see as barriers to successfully being able to complete the program?: none What do you see as the benefits of succesfully completing the program? In other words, what do you hope to get out of participating in the program?: better health Are there issues you are dealing with that will interfere with completing the program?: no Do you have a spouse or signficant other, family or friends who will help support you to complete the program?: yes
[2022-06-08 13:40] VITALS: BP 128/66; PULSE 59; O2SAT 97; BMI 47.9
--- NOTE | 2022-06-08 13:41 | PCM.CR.ITP ---
Diagnosis - General Information Admitting Diagnosis: STEMI, cardiac arrest, PCI with coronary stent Personal Learning Style:: Audio/Visual, Demonstration, Group, Individual Preference, Written Barriers to Learning: Vision Impairment Stage of change r/t lifestyle modifications:: Contemplation Gave educational material for:: Treating Heart Disease, Emotions & Heart Disease, Stress Management & Relaxation, Sleep Disorders & Heart Disease, How The Heart Works, What it means to have Heart Disease, How Coronary Artery Disease is Diagnosed, Heart Procedures, What Heart Medications Do, Risk Factors & Modifications, Living an Active Life, Nutrition - Education/Goals Cardiac Rehabilitation Goals: 1. Maintain the individual as the primary focus of care. 2. To improve the patient's quality of life. 3. Identification of cardiac risk factors and provide cardiac risk factor management. 4. Enhance the psychosocial status of the patient. 5. Reconditioning enough to allow the patient to resume customary activities. 6. Control symptoms of cardiac disease Personal Goals: Initial Assessment: Improve management of stress and emotions, Improve energy level, Participate in home exercise program, Improve knowledge of cardiac disease, Improve muscle strength and endurance, Improve diet and eating habits (eat healthier) Scale for measuring improvement of personal goals: Enter appropriate number in Comments. 2 = Unchanged. 3 = Slightly Better. 4 = Moderate Improvement. 5 = Met my Goal - Diagnosis & Disease Process Outcomes/Goals: Pt IDs own risk factors & lifestyle modifications by Session 10, Verbalizes symptoms of angina & response by session 3., Pt independently manages, Other Additional Outcomes/Goals: Plan/Interventions: Assist Pt to ID & engage in lifestyle modification to reduce CVD risk, Instruct on individual risk factors, Review symptoms of angina & emergency actions, Review secondary diagnosis & identify educational needs., Other see comment 30 day Reassessments:: Not Met 30 day Reassessments:: Not Met 30 day Reassessments:: Not Met 30 day Reassessments:: Not Met Final Reassessments:: Not Met - Safety Referral to Physical Therapy: No Referral to [facility] Case Management: No Fall Risk Assessed:: Yes Assistive Devices:: None Exercise - Initial Assessment - Visit Date of Eval: 06/08/22 - initial eval Mets: Pre-: >3 METS for 30 minutes by discharge - Physician Prescribed Exercise Modalities: Treadmill, Rower, Airdyne, NuStep, SciFit, Lateral [employer] Frequency: 3x/week for 12 weeks [36 sessions] Intensity: 60-80% of age predicted maximum heart rate reserve Current METSs:: 3 Target Heart Rate:: 90-107 Resting Blood Pressure: 128/66 - Outcomes & Goals Goals:: Verbalizes understanding of THR, RPE & goal METS by session 6, Documents in home exercise log/reports 30 min aerobic 5 day/wk by DC, Demonstrates accurate pulse taking by DC, Other additional outcome/goals: see below - Intervention & Plan Exercise Program Goals: Instruct on personal THR & RPE, Instruct on MET level & personal MET goal, Show patient to take own pulse /validate performance until accurate, Instruct on home exercise, Other additional plan/int - Physical Activity Home Exercise Physical Activity - Home Exercise: Safe Exercise, Warm-up, Self-monitoring, Cool-Down, Home Exercise > 30 min Daily, Sitting Time <3 hours/daily - Outcomes & Goals Outcomes/Goals: Demonstrates correct Warm-up/exercise Cool-Down (S3) if = 2.5 METs, Verbalizes symptoms of exercise intolerance by Session 3 (S3), Demonstrate safe equipment use (S3) & follows exercise prescrition (6), Other: See below - Intervention & Plan Plan/Intervention: Instruct warm-up & cool-down if exercising at > 2 METs, Instruct on symptoms of exercise intolerance & actions to take, Instruct & monitor on saf, Assess intial functional capacity & safety risk, Other See below Nutrition - Initial Assessment - Program Goals Nutrition Program Goals: LDL <100 optimal. 100 - 129 Near optimal. 130 - 159 Borderline High. 160 - 189 High. Total Cholesterol <200 desirable. 200 - 239 Borderline High. >/= 240 High. HDL < 40 Low >/=60 High. Triglycerides <150 desirable. <199 optimal. VlDL 5 - 40. HgbA1C <7%. BMI <25 Patient has diagnosis of Hyperlipidemia (ICD E78)?: Yes - Visit Date of Assessment:: 06/08/22 - initial eval - Cholesterol/Lipids (Other Core Measures) Determine presence & major risk factors that modify LDL goal: Cigarette smoking, Hypertension or hypertensive medication, Low HDL cholesterol <40 mg/dL*, Family history of premature CHD in Male < 55 years: female <65 yearsFa, Age men > 45 years; women >/= 55 years Outcomes/Goals: Pt IDs own risk factors & lifestyle modifications by Session 10, Verbalizes symptoms of angina & response by session 3., Pt independently manages, Other Additional Outcomes/Goals: Intervention/Plan: Advocate for lipid panel cholesterol medication if applicable, Instruct on personal lipid levels & lipid goals/NCEP guidelines, Instruct on cholesterol, Other additional plan/int Referral to dietitian:: Yes - Diabetes (Other Core Measures) Diabetes Type: Diagnosis Type II ICD-10 E11 Referral to Diabetic Clinic:: No Outcomes/Goals:: Able to state symptoms of, Able to state, Able to state, Other additional Intervention/Plan:: Instruct on, Refer to, Instruct on, Other - Weight Mgt (Other Care) Height: 5 ft 2 in Weight:: 118.841 kg BMI: 47.9 Diagnosis Overweight/Obesity BMI> 30% ICD-10 E66: Yes Diagnosis High BMI/Morbid Obesity BMI> 35% ICD-10 Z68: Yes Outcomes/Goals: Pt sets, maintains & shows weight loss goal & trend during rehab, Other additional outcomes/goals Intervention/Plan: Instruct on ideal BMI & set weight loss goal w/patient, Assist pt to ID & incorporate diet changes for weight loss by S9, Refer to Structured Weight Loss program as appropriate, Encourage goal of using 250-300dcal per session for weight loss, Other additional plan/interventions - Healthy Eating Habits Will attend diet classes:: Yes Outcomes/Goals:: Consume diet rich in vegs,fruits,whole grain/high fiber,fish,lean meat, Limit sat/trans fats,cholesterol & added salts & sugars, Other additional outcome/goals: Intervention/Plan:: Assess current eating habits, Other Additional plan/interventions - Education Gave educational materials for:: Signs & symptoms of hypoglycemia, Signs & symptoms of hyperglycemia, Relate diabetes to coronary artery disease, Healthy eating Nutrition - 30-Day Assessment Nutrition - 60-Day Assessment Nutrition - 90-Day Assessment Nutrition - Final Assessment Core - Initial Assessment - Visit Date of Eval: 06/08/22 - initial eval - Medication Compliance Preventative Medication(s):: Ticagrelor/P2Y12 inhibitor, Statin/lipid, Beta sadie, ARB (Angiotensi Rcap) H/O mental health issues: depression, anxiety, or addiction?: Yes Doesn?t believe in the benefits of treatment?: No Believes medications are unnecessary or harmful?: No Has a concern about medication side effects?: No Expresses concern over the cost of medications?: No Outcomes/Goals: Verbalizes medications,desired effect & common side effects @ DC, Pt self-reports following medication regimen, Keeps card in wallet w/medications listed by DC, Other additional outcome/goals: Interventions/plans: Instruct on medication effects & side effects, Review medication list w/patient every two weeks, Instruct importance of taking meds as ordered & assist problem solving, Other additional - Tobacco Use Tobacco Use: Cigarettes How many cigarettes do you smoke per day?: 10 Years Smokin Do you use smokeless tobacco?: No Outcomes/Goals: Smoking cessation achieved or maintained by discharge, Identify aids/strategies for achieving smoking cessation by session 6, Other additional outcome/goals Interventions/plan: Instruct on effects of smoking & provide smoking cessation resource, Assist pt to set quit date & provide encouragement, Assist pt to develop strategies to achieve/maintain quit date, Assist pt w/nicotine replacement & medication for cessation success, Other additional plan/interventions - Hypertension Hypertension Diagnosis:: Hypertension ICD-10 I10 Resting Blood Pressure:: 128/60 [place] [employer] Hypertension Guidelines: [place] [employer] Hypertension Guidelines. Normal BP Less than 120/80. Elevated BP 120/80. Hypertension Stage 1: BP 130-139/80-89. Hypertesnion Stage 2: BP 140 or higher/90 or higher. Hypertension Crisis: BP higher than 180/120 Outcomes/Goals: Able to verbalize/achieve optimal blood pressure <130/80, Incorporates diet changes & exercise for blood pressure control by DC, Other additional outcomes/goals Interventions/plan: Instruct on optimal blood pressure, hypertension & medications, Instruct on effects of sodium, alcohol, stress, exercise &hypertension, Other additional plan/interventions - Tobacco Cessation Referral Smoking Cessation Referral:: No - declines Individual Education/Counseling:: No Education Schedule Given:: Yes Core - 30-Day Assessment Core - 60-Day Assessment Core - 90 Day Assessment Core - Final Assessment Psychosocial - Initial Assess - VIsit Date of Eval: 06/08/22 - initial eval History of previous Mental disease:: Yes - bipolar, being treated History of Emotional Disorders: Depression Self-reported stressors: Family, Financial, Medical/Health, Other, Recent Illness - Outcomes/Goals: See list Psychosocial Outcomes/Goals:: ID's personal stressors & 2 strategies to manage stress by discharge, Other Additional outcome/goals: - Intervention/Plan: See List Interventions/Plan:: Assess stressors,coping strategies & signs of derpression on admission, Instruct/assist pt to develop coping & personal stress Mgt strategies, Refer to Behavioral Health if appropriate, Refer to Physician if appropriate, Instruct patient to recognize signs & symptoms of depression, Instruct patient to recog, Other additional plan/intervention Psychosocial - 30-Day Assess Psychosocial - 60-Day Assess Psychosocial - 90-Day Assess Psychosocial - Final Assessmen Patient Health Questionnaire Initial Assessment 1. Little interest or pleasure in doing things: Several days 2. Feeling down, depressed, or hopeless: Several days 3. Trouble falling or staying asleep, or sleeping too much: Several days 4. Feeling tired or having little energy: More than half the days 5. Poor appetite or overeating: Several days 6. Feeling bad about yourself -- or that you are a failure or have let yourself or your family down: Not at all 7. Trouble concentrating on things, such as reading the newspaper or watching television: Not at all 8. Moving or speaking so slowly that other people could have noticed. Or the opposite - being so fidgety or restless that you have been moving around a lot more than usual: Not at all 9. Thoughts that you would be better off , or of hurting yourself in some way: Not at all How difficult have these problems made it for you to do your work, take care of things at home, or get along with other people?: Not difficult at all Total Score: 6 [place]-Q SV Test - Statements CAD is a disease of the arteries in the heart: False Examples of risk factors for heart disease: True Angina is chest pain or discomfort: True The benefits of resistance training include: True Eating more meat and dairy products: True Anti-platelet medications such as aspirin are important: True The only effective way to manage stress: False An exercise warm-up slowly increases heart rate: True Prepared, processed foods usually have high sodium: True Depression is common after a heart attack: I Don't Know The statin medications lower cholesterol: True To control blood pressure, lower the amount of sodium: True If someone gets chest discomfort during walking: False Transfats are partially hydrogenated vegetable oils: True Sleep apnea that is not treated increases the risk: True To control cholesterol, one should become a vegetarian: False Someone knows if he/she is exercising at the right level: I Don't Know Diabetes cannot be prevented with exercise & health eating: False Stress is a large risk for heart attack: True A diet that can help lower blood pressure is rich in: True - Total Score Total Correct Responses: 16 Self-Efficacy Initial Assessment We would like to know how confident you are in doing certain activities. Please select your confidence level for:: Select your confidence level for the following using the scale 1-10 where 1 is not at all confident and 10 is totally confident. Your score is the average of all 6 responses. Fatigue: How confident are you that you can keep the fatigue caused by your disease from interfering with the things you want to do? Select Number: 3 Physical Discomfort or Pain: How confident are you that you can keep the physical discomfort or pain of your disease from interfering with the things you want to do? Select Number: 6 Emotional Distress: How confident are you that you can keep the emotional distress caused by your disease from interfering with the things you want to do? Select Number: 6 Other Symptoms or Health Problems: How confident are you that you can keep other symptoms or health problems from interfering with the things you want to do? Select Number: 4 Different Tasks and Activities: How confident are you that you can do the different tasks and activities needed to manage your health condition so as to reduce your need to see a doctor? Select Number: 1 Medication: How confident are you that you can do things other than just taking medication to reduce how much your illness affects your everyday life? Select Number: 6 Total Score:: 4 Nutrition Survey - Nutrition Survey Initial Have you lost >10 lbs over the past 2 months without trying?: No Are you following a special diet at home for diabetes, low fat, or low salt?: No Are you interested in meeting with a dietitian for help understanding your diet?: Yes Do you eat less than 3 meals a day?: Yes Do you eat fatty meats (win, sausage, ribs, etc), fried foods, desserts, large amounts of salad dressings, margarine, butter, or cheese most days?: No Do you have food allergies? [Enter types in comment field]: No Do you eat in restaurants more than 3 times a week?: No Do you season food with salt, seasoning salt, or garlic salt?: Yes Do you used canned, boxed, frozen meals, or soups, seasoning packets?: No Total Score:: 3
[2022-06-08 13:59] VITALS: BP 128/60; BP 128/66; BMI 47.9
== END | disposition home or self-care (01) ==
LOC: CR 12:53
PROVIDERS: PCP Internal Medicine; Referring Provider Internal Medicine Cardiovascular Disease; Visit Provider Internal Medicine Cardiovascular Disease
DX: I21.3 ST elevation (STEMI) myocardial infarction of unspecified site (principal); I46.9 Cardiac arrest, cause unspecified; Z95.5 Presence of coronary angioplasty implant and graft; G47.30 Sleep apnea, unspecified; I10 Essential (primary) hypertension; F17.200 Nicotine dependence, unspecified, uncomplicated; R06.02 Shortness of breath; R53.83 Other fatigue; I49.9 Cardiac arrhythmia, unspecified

== ENCOUNTER 2022-06-29 14:30 | Outpatient (RCR) | payer MEDICARE, MEDICAID, SELFPAY ==
[2022-06-08 13:59] VITALS: BMI 47.9
== END 2022-07-03 23:59 ==
LOC: CR 14:30
PROVIDERS: PCP Internal Medicine; Referring Provider Internal Medicine Cardiovascular Disease; Visit Provider Internal Medicine Cardiovascular Disease
DX: Z95.5 Presence of coronary angioplasty implant and graft (principal)
CPT/HCPCS: 93798

== ENCOUNTER 2022-07-04 10:36 | Outpatient (RCR) | payer MEDICARE, MEDICAID, SELFPAY ==
[2022-06-08 13:59] VITALS: BMI 47.9
== END 2022-08-03 23:59 ==
LOC: CR 10:36
PROVIDERS: PCP Internal Medicine; Referring Provider Internal Medicine Cardiovascular Disease; Visit Provider Internal Medicine Cardiovascular Disease
DX: Z95.5 Presence of coronary angioplasty implant and graft (principal)
CPT/HCPCS: 93798

== ENCOUNTER → 2022-10-17 | Outpatient (CLI) | payer MEDICARE, MEDICAID, SELFPAY ==
[2022-06-08 13:59] VITALS: BMI 47.9
[2022-10-17 15:17] LABS: Erythrocyte Sedimentation Rate 8 mm/hr (0-30)
[2022-10-17 15:19] LABS: Absolute Lymphocyte Count 2.06 X10^3/uL (0.83-4.51); Absolute Neutrophil Count 4.7 X10^3/uL (2.0-7.7); Basophil# 0.07 X10^3/uL; Basophil% 0.9 % (0-1); Eosinophil# 0.32 X10^3/uL; Eosinophils% 4.2 % (0-5); Hematocrit 39.1 % (37-47); Hemoglobin 12.9 g/dL (12.0-15.0); Lymphocyte # 2.06 X10^3/ul (0.83-4.51); Lymphocyte % 26.7 % (19-41); Mean Corpuscular Hgb 33.8 pg (27.0-32.0); Mean Corpuscular Volume 102.4 fL (81-99); Mean Platelet Vol. 10.1 fl (6.2-12.0); Monocyte# 0.52 X10^3/uL; Monocyte% 6.7 % (0-10); NRBC Flagged by Analyzer 0 % (0-5); Neutrophil # 4.71 X10^3/uL (2.7-7.7); Neutrophil % 61.1 % (47-70); Platelet Count 310 K/mm3 (150-450); RBC Distribution Width CV 13.3 % (11.6-14.6); RBC Distribution Width SD 50.1 fl (35.1-43.9); Red Blood Count 3.82 M/mm3 (4.2-5.4); White Blood Count 7.7 K/mm3 (4.4-11.0)
[2022-10-17 15:35] LABS: AST(SGOT) 20 U/L (15-37); Alanine Aminotransfer ALT/SGPT 24 U/L (13-56); Albumin, Serum 3.5 g/dL (3.2-5.0); Alkaline Phosphatase 120 U/L (45-117); Bilirubin, Direct 0.07 mg/dL (0.00-0.30); Creatinine, Serum 1.33 mg/dL (0.55-1.02); EST Glomerular Filtration Rate 44 mL/min (>60); Est Glom Filt Rate - Afr Amer 53 mL/min (>60); Globulin 3.3 g/dL (2.2-4.2); Protein, Total 6.8 g/dL (6.4-8.2)
== END | disposition home or self-care (01) ==
LOC: LAB 14:05
PROVIDERS: PCP Internal Medicine; Referring Provider Internal Medicine Rheumatology; Visit Provider Internal Medicine Rheumatology
DX: M06.4 Inflammatory polyarthropathy (principal); Z79.899 Other long term (current) drug therapy
CPT/HCPCS: 36415; 80076; 82565; 85025; 85652; 86140

== ENCOUNTER → 2022-10-24 | Outpatient (CLI) | payer MEDICARE, MEDICAID, SELFPAY ==
[2022-06-08 13:59] VITALS: BMI 47.9
--- NOTE | 2022-10-24 11:40 | RAD_ITS ---
EXAM: XR CHEST, 2 VIEWS CLINICAL INDICATION: SOB TECHNIQUE: Frontal and lateral views of the chest. COMPARISON: 04/04/2022 FINDINGS: LUNGS AND PLEURAL SPACES: Unremarkable. No consolidation or edema. No pneumothorax. No effusion. HEART: Unremarkable. Cardiac silhouette not enlarged. MEDIASTINUM: Central airways and mediastinal contour are unremarkable. BONES/JOINTS: There is hardware overlying the lower cervical spine. SOFT TISSUES: Unremarkable. RAD/Chest PA and Lateral IMPRESSION: No acute findings in the chest. Electronically Signed: Terry Leal MD at 23:58 EDT ,
[2022-10-24 12:07] LABS: Absolute Lymphocyte Count 2.13 X10^3/uL (0.83-4.51); Absolute Neutrophil Count 6.1 X10^3/uL (2.0-7.7); Basophil# 0.08 X10^3/uL; Basophil% 0.9 % (0-1); Eosinophil# 0.35 X10^3/uL; Eosinophils% 3.8 % (0-5); Hematocrit 40.6 % (37-47); Hemoglobin 13.4 g/dL (12.0-15.0); Lymphocyte # 2.13 X10^3/ul (0.83-4.51); Lymphocyte % 23.2 % (19-41); Mean Platelet Vol. 9.7 fl (6.2-12.0); Monocyte# 0.53 X10^3/uL; Monocyte% 5.8 % (0-10); NRBC Flagged by Analyzer 0 % (0-5); Neutrophil # 6.06 X10^3/uL (2.7-7.7); Neutrophil % 65.8 % (47-70); Platelet Count 328 K/mm3 (150-450); RBC Distribution Width CV 13.2 % (11.6-14.6); RBC Distribution Width SD 48.5 fl (35.1-43.9); Red Blood Count 4.06 M/mm3 (4.2-5.4); White Blood Count 9.2 K/mm3 (4.4-11.0)
[2022-10-24 13:29] LABS: BNP,B-Type NATRIURETIC PEPTIDE 39.5 pg/mL (0-100)
[2022-10-24 13:58] LABS: AST(SGOT) 23 U/L (15-37); Alanine Aminotransfer ALT/SGPT 49 U/L (13-56); Albumin, Serum 3.9 g/dL (3.2-5.0); Alkaline Phosphatase 127 U/L (45-117); Anion Gap 9 (5-15); BUN 12 mg/dL (7-18); BUN/Creat Ratio 9.4 RATIO (10-20); Bilirubin, Direct 0.16 mg/dL (0.00-0.30); Calcium,Total 9.1 mg/dL (8.5-10.1); Chloride 108 mmol/L (98-107); Cholesterol 147 mg/dL (200); Creatinine, Serum 1.28 mg/dL (0.55-1.02); EST Glomerular Filtration Rate 46 mL/min (>60); Est Glom Filt Rate - Afr Amer 55 mL/min (>60); Free T3 2.3 pg/mL (2.18-3.98); Globulin 3.3 g/dL (2.2-4.2); Glucose 137 mg/dL (74-106); High Density Lipoprotein 44 mg/dL; Magnesium 2.2 mg/dL (1.6-2.6); Potassium 3.8 mmol/L (3.5-5.1); Protein, Total 7.2 g/dL (6.4-8.2); Sodium Level 138 mmol/L (136-145); T4 Free Direct 1.33 ng/dL (0.76-1.46); Thyroid Stim Hormone (TSH) 2.95 uIU/mL (0.358-3.74); Triglycerides 162 mg/dL; Very Low Density Lipoprotein 32 mg/dL (5-40)
== END | disposition home or self-care (01) ==
LOC: RAD 11:36
PROVIDERS: Nurse Practitioner Gerontology; PCP Internal Medicine; Referring Provider Internal Medicine Cardiovascular Disease; Visit Provider Internal Medicine Cardiovascular Disease
DX: R06.00 Dyspnea, unspecified (principal); E78.5 Hyperlipidemia, unspecified
CPT/HCPCS: 36415; 71046; 80048; 80061; 80076; 83735; 83880; 84439; 84443; 84481; 85025

== ENCOUNTER → 2022-11-21 | Outpatient (CLI) | payer MEDICARE, MEDICAID, SELFPAY ==
[2022-06-08 13:59] VITALS: BMI 47.9
--- NOTE | 2022-11-21 11:25 | STRESSREP_ITS ---
Stress Test Report Date: 11/21/2022 Procedure: Pharmacologic stress nuclear imaging study Indications: Dyspnea on exertion Consent: Per the patient Procedure: The patient underwent pharmacologic (Regadenoson 0.4mg ) evaluation with a peak heart rate of 78 beats per minute (47%predicted maximal heart rate) and a peak blood pressure of 138/68 mmHg. The baseline ECG demonstrated normal sinus rhythm. The peak pharmacologic ECG demonstrated no ischemic change. [There were no cardiac dysrhythmias pretest, during pharmacologic infusion, or recovery]. There was no complaint of chest discomfort during pharmacologic infusion or recovery. The patient was injected with 15.0 millicuries of technetium 99m Cardiolite and subsequently rest SPECT Cardiolite nuclear imaging was obtained in the horizontal long, vertical long, and short axis views. The patient underwent pharmacologic (Regadenoson) evaluation. The patient was injected with 44.6 millicuries of technetium 99m Cardiolite and subsequently stress SPECT Cardiolite nuclear imaging was obtained in the horizontal long, vertical long, and short axis views. A gated Cardiolite study at peak stress was obtained. The examination was stopped secondary to completion of protocol. Rest and stress SPECT Cardiolite nuclear imaging status post realignment, normalization, and attenuation correction demonstrate no fixed or reversible perfusion defects. There is end systolic thickening and brightening. The gated Cardiolite study demonstrates myocardial thickening and inward wall motion. The reported LVEF is 71%. Impression: 1. Pharmacologic (Regadenoson) evaluation 2. Peak pharmacologic ECG with no ischemic change. 3. There were no cardiac dysrhythmias pretest, during pharmacologic infusion, or recovery. 5. Rest and stress SPECT Cardiolite nuclear imaging demonstrate relative uniform tracer uptake and myocardial perfusion appearing within normal limits. 6. The gated Cardiolite study reports an LVEF of 71%. This note was generated with iMusicTweetation software. It may contain incorrect words, spelling, and punctuation that were not noted in checking the note before signing.
== END | disposition home or self-care (01) ==
LOC: CVS 06:59
PROVIDERS: PCP Internal Medicine; Referring Provider Nurse Practitioner Gerontology; Visit Provider Nurse Practitioner Gerontology
DX: R06.00 Dyspnea, unspecified (principal); E11.8 Type 2 diabetes mellitus with unspecified complications; I25.10 Atherosclerotic heart disease of native coronary artery without angina pectoris; Z95.5 Presence of coronary angioplasty implant and graft; I25.2 Old myocardial infarction; I10 Essential (primary) hypertension; F17.200 Nicotine dependence, unspecified, uncomplicated
CPT/HCPCS: 78452; 93017; A9500; A4216; J2785

== ENCOUNTER 2023-03-16 12:25 | Emergency (ER) | payer MEDICARE, MEDICAID, SELFPAY ==
[2022-06-08 13:59] VITALS: BMI 47.9
[2023-03-16 12:26] VITALS: BP 180/75; PULSE 73; RESP 14; TEMP 36.8; O2SAT 98; BMI 53.2
--- NOTE | 2023-03-16 12:41 | VDLE_ITS ---
Reason For Study: Pain RLE RIGHT LEFT GSV is normal. CFV is compressible, spontaneous, phasic, CFV is compressible, spontaneous, phasic, competent, and demonstrates normal competent and demonstrates normal augmentation. augmentation. FV is compressible, spontaneous, phasic, competent and demonstrates normal augmentation. POP V is compressible, spontaneous, phasic, competent and demonstrates normal augmentation. T/P Trunk is compressible. PTV is compressible. RT PerV is compressible. Procedure This is a venous duplex using B-mode, color flow and spectral Doppler. Exam performed portable in ED. A preliminary report was called and/or faxed to Dr. Yost. VL/Venous Duplex US, Unilateral Interpretation Summary Deep veins of the right lower extremity are patent and compressible segmentally . There is no evidence of right lower extremity deep vein thrombosis. The right great sapheno us vein appears patent and compressible segmentally. Ordering Physician: Jamilah Yost Referring Physician: Jericho Nieves Performed By: Lorene Lozano RDCS, RVT
--- NOTE | 2023-03-16 12:42 | EDS_ITS ---
HPI History of Present Illness Chief Complaint: Lower Extremity Injury Detail of Chief Complaint: Painful lump on right leg Informant: patient Narrative Narrative: Patient presents secondary to a painful lump on her right leg and is concerned for blood clot. She had a heart attack previously and has been on Plavix. She unknowingly missed her Plavix last 8 days thinking that it was in her pill kit. She noted a painful lump on her right butcher yesterday and is concerned that she may have a blood clot. She denies chest pain or shortness of breath. [facility] Medical History Anxiety Anxiety and depression Atherosclerotic heart disease of koi coronary artery without angina pectoris Back pain Bipolar disorder Brain tumor Bronchitis Cardiac arrest with ventricular fibrillation Cardiomyopathy Coronary artery disease CPAP (continuous positive airway pressure) dependence Degeneration of intervertebral disc of lumbosacral region Depression Diabetes mellitus, type II Essential hypertension Hiatal hernia High cholesterol History of stress test HLD (hyperlipidemia) Hypertension Lumbar facet arthropathy Lumbosacral spondylosis Migraines Obesity (BMI 30-39.9) Osteoarthritis Post-menopausal Presence of stent in coronary artery (~05/17/22) Seizures Sleep apnea Smoker ST elevation (STEMI) myocardial infarction Home Medications nitroglycerin 0.4 mg sublingual tablet 0.4 mg sublingual Q5M PRN Cardiac/Chest Pain #30 tabs 04/06/22 [Rx Last Taken Unknown] buprenorphine 10 mcg/hour weekly transdermal patch 1 patch transdermal QWEEK 05/08/22 [History Last Taken Unknown] escitalopram oxalate 20 mg tablet 20 mg PO DAILY 05/08/22 [History Last Taken ] pregabalin 75 mg capsule 75 mg PO BID 05/08/22 [History Last Taken 05/17/22] aspirin 81 mg tablet,delayed release 81 mg PO DAILY@0800 #90 tabs 06/05/22 [Rx Last Taken Unknown] atorvastatin 40 mg tablet 40 mg PO QHS #90 tabs 06/05/22 [Rx Last Taken Unknown] carvedilol 6.25 mg tablet 6.25 mg PO BID #180 tabs 06/05/22 [Rx Last Taken Unknown] dulaglutide 0.75 mg/0.5 mL subcutaneous pen injector (Trulicity) 0.75 mg subcut QWEEK 06/05/22 [History Last Taken Unknown] folic acid 1 mg tablet 1 mg PO DAILY #90 tabs 06/05/22 [Rx Last Taken Unknown] losartan 50 mg tablet 50 mg PO DAILY #90 tabs 06/05/22 [Rx Last Taken Unknown] methotrexate sodium 2.5 mg tablet 15 mg PO QWEEK 06/05/22 [History Last Taken Unknown] clonazepam 0.5 mg tablet 0.5 mg PO BID 08/29/22 [History Last Taken Unknown] clopidogrel 75 mg tablet 75 mg PO .COMPLEX #30 tabs 08/29/22 [Rx Last Taken Unknown] lamotrigine 200 mg tablet 200 mg PO DAILY 08/29/22 [History Last Taken Unknown] zolpidem 10 mg tablet (Ambien) 10 mg PO QHS PRN 08/29/22 [History Last Taken Unknown] Allergy/AdvReac Type Severity Reaction Status Date / Time tramadol HCl [From Ultram] Allergy Rash Verified 03/16/23 12:26 cariprazine [From Vraylar] AdvReac Other Verified 03/16/23 12:26 codeine AdvReac Vomiting Verified 03/16/23 12:26 hydromorphone [From Dilaudid] AdvReac Nausea/Vom/ Verified 03/16/23 12:26 Diarrhea oxycodone HCl [From Percocet] AdvReac Vomiting Verified 03/16/23 12:26 quetiapine [From Seroquel] AdvReac Other Verified 03/16/23 12:26 Family History Father CHF (congestive heart failure) Other Cardiac arrest with ventricular fibrillation Cardiomyopathy Heart disease Surgical History History of back surgery History of carpal tunnel surgery Hx of knee surgery Hx of neck surgery Presence of coronary angioplasty implant and graft (~05/17/22) Social History household members: significant other Smoking Status: Current every day smoker tobacco type: cigarettes alcohol intake: never substance use type: does not use caffeine: Yes Type: carbonated beverages Number of servings: 1 ROS ROS ED Constitutional Constitutional ED: Denies chills or fever(s) Eyes Eyes: Denies change in vision or discharge from eye(s) ENT ENT ED: Denies discharge from eye(s), rhinorrhea or sore throat Cardiovascular Cardiovascular: Denies chest pain or palpitations Respiratory/Chest Respiratory/Chest: Denies cough or dyspnea Gastrointestinal Gastrointestinal: Denies abdominal pain, nausea or vomiting Musculoskeletal Musculoskeletal: Reports extremity pain; Denies back pain Integumentary Denies Abrasions or rash Neurologic Neurologic: Denies headache(s) or weakness Psychiatric Psychiatric: Denies anxiety or depression Allergic/Immunologic Allergic/Immunologic ED: Denies lip swelling or urticaria EXAM Physical Exam Const Vital Signs: 03/16/23 12:26 Temperature 98.3 F Temperature Source Temporal Pulse Rate 73 Respiratory Rate 14 Blood Pressure 180/75 H Blood Pressure Mean 110 Pulse Ox 98 Oxygen Delivery Method Room Air Positive well nourished and well developed General Appearance ED: well developed HEENT Reports moist mucous membranes Eyes PERRL Neck full ROM Chest Wall inspection of chest normal and palpation of chest normal Resp normal respiratory effort and clear to auscultation bilaterally Cardio regular rate and regular rhythm GI non-tender Palpation: soft Extremity Extremity Narrative: Painful focal swelling along the proximal medial right butcher. No overlying ecchymosis. Strong distal pulses. No calf tenderness or palpable cords. Neuro oriented x3 and no sensory deficits noted Motor Exam: strength 5/5 throughout Skin no wounds MDM MDM MDM Narrative Medical decision making narrative: Patient does already have her Plavix that she can restart. Venous ultrasound of the right lower extremity will be obtained to evaluate for DVT. Venous ultrasound reveals no evidence of DVT. Patient reassured with findings. She will restart her Plavix as discussed and return instructions have been provided. Discharge Plan Triage Chief Complaint: Lower Extremity Injury ED Provider: Jamilah Yost Dx/Rx/DC Orders Clinical Impression: Contusion of lower leg Instructions: ED Contusion, Lower Extremity Prescriptions: No Action escitalopram oxalate 20 mg tablet 20 mg PO DAILY pregabalin 75 mg capsule 75 mg PO BID Patient Comments: TAKE 1 TABLET BY MOUTH TWICE DAILY buprenorphine 10 mcg/hour patch weekly 1 patch transdermal QWEEK methotrexate sodium 2.5 mg tablet 15 mg PO QWEEK Patient Comments: Take 6 tablets by mouth once every week Trulicity 0.75 mg/0.5 mL pen injector 0.75 mg subcut QWEEK atorvastatin 40 mg tablet 40 mg PO QHS Qty: 90 3RF carvedilol 6.25 mg tablet 6.25 mg PO BID Qty: 180 3RF losartan 50 mg tablet 50 mg PO DAILY Qty: 90 3RF folic acid 1 mg tablet 1 mg PO DAILY Qty: 90 3RF aspirin 81 mg tablet,delayed release (DR/EC) 81 mg PO DAILY@0800 Qty: 90 3RF lamotrigine 200 mg tablet 200 mg PO DAILY clonazepam 0.5 mg tablet 0.5 mg PO BID zolpidem [Ambien] 10 mg tablet 10 mg PO QHS PRN clopidogrel 75 mg tablet 75 mg PO .COMPLEX Qty: 30 12RF Rx Instructions: 75 mg orally take 4 tablets by mouth on day 1 and then take 1 tablet by mouth daily; nitroglycerin 0.4 mg Tablet, Sublingual 0.4 mg sublingual Q5M PRN (Reason: Cardiac/Chest Pain) Qty: 30 0RF Primary Care Provider: Jericho Nieves Referrals: Jericho Nieves MD [Primary Care Provider] - As Needed Disposition Disposition: Home, Self Care
== END 2023-03-16 13:29 | disposition home or self-care (01) ==
PROVIDERS: Emergency Provider Emergency Medicine; PCP Internal Medicine; Visit Provider Emergency Medicine
DX: S80.11XA Contusion of right lower leg, initial encounter (principal); F31.9 Bipolar disorder, unspecified; R56.9 Unspecified convulsions; E11.9 Type 2 diabetes mellitus without complications; I25.10 Atherosclerotic heart disease of native coronary artery without angina pectoris; I10 Essential (primary) hypertension; E78.00 Pure hypercholesterolemia, unspecified; F41.8 Other specified anxiety disorders; Z79.899 Other long term (current) drug therapy; Z79.82 Long term (current) use of aspirin; Z79.85 Long-term (current) use of injectable non-insulin antidiabetic drugs; I25.2 Old myocardial infarction; Z79.02 Long term (current) use of antithrombotics/antiplatelets; Z95.5 Presence of coronary angioplasty implant and graft; R22.42 Localized swelling, mass and lump, left lower limb
CPT/HCPCS: 93971; 99282

== ENCOUNTER → 2023-04-19 | Outpatient (CLI) | payer MEDICARE, MEDICAID, SELFPAY ==
[2022-06-08 13:59] VITALS: BMI 47.9
--- NOTE | 2023-04-19 07:57 | CDU_ITS ---
Reason For Study: RETINOL ISCHEMIA Rt. Velocities/BP Lt. Velocities/BP Prox CCA 111.3/15.5 cm/sec. Prox CCA 131.3/25.4 cm/sec. Mid CCA 100.2/17.9 cm/sec. Mid CCA 107.6/23.6 cm/sec. Dist CCA 81.8/16.7 cm/sec. Dist CCA 89.3/27.2 cm/sec. Prox ICA 94.8/14.4 cm/sec. Prox ICA 70.2/16.4 cm/sec. Mid ICA 124.0/21.7 cm/sec. Mid ICA 94.1/31.4 cm/sec. Dist ICA 72.9/27.2 cm/sec. Dist ICA 116.2/35.1 cm/sec. Rt. ICA/CCA = 124.0/21.7=1.2. Lt. ICA/CCA = 116.2/107.6=1.1. Prox ECA 120.4/8.9 cm/sec. Prox ECA 107.6/12.6 cm/sec. Rt. Vert. 71.1/19.9 cm/sec. Lt. Vert. 54.7/15.0 cm/sec. Right Extracranial There is homogeneous, smooth atherosclerotic plaque noted in the right common carotid artery. There is intimal thickening but no significant atherosclerotic plaque noted in the right internal carotid artery. There is no significant atherosclerotic plaque noted in the right external carotid artery. Antegrade flow is noted in the right vertebral artery. Left Extracranial There is homogeneous, smooth atherosclerotic plaque noted in the left common carotid artery. There is intimal thickening but no significant atherosclerotic plaque noted in the left internal carotid artery. There is no significant atherosclerotic plaque noted in the left external carotid artery. Antegrade flow is noted in the left vertebral artery. There is heterogeneous, irregular atherosclerotic plaque noted in the left bulb. Procedure Carotid Duplex [id number]. Exam performed in department. VL/Carotid Duplex Ultrasound Interpretation Summary Normal right extracranial internal carotid. Normal left extracranial internal carotid. Patent and antegrade vertebrals bilaterally. Ordering Physician: James García Referring Physician: Jericho Nieves Performed By: Erin Car RDCS, RVT
== END | disposition home or self-care (01) ==
LOC: CVS 07:55
PROVIDERS: PCP Internal Medicine; Referring Provider Ophthalmology; Visit Provider Ophthalmology
DX: H35.82 Retinal ischemia (principal)
CPT/HCPCS: 93880

== ENCOUNTER 2023-05-21 14:22 | Inpatient (IN) | payer MEDICARE, MEDICAID, SELFPAY ==
[2022-06-08 13:59] VITALS: BMI 47.9
[2023-05-21] VITALS (38 sets, daily range): BP systolic 89–160; BP diastolic 42–115; PULSE 54–93; RESP 16–32; TEMP 36.1–37.1; O2SAT 92–96; BMI 51.8; BMI 51.3
--- NOTE | 2023-05-21 14:36 | EKG12_ITS ---
Test Reason : DYSRHYTHMIA Blood Pressure : / mmHG Vent. Rate : 054 BPM Atrial Rate : 054 BPM P-R Int : 176 ms QRS Dur : 092 ms QT Int : 448 ms P-R-T Axes : 060 065 055 degrees QTc Int : 424 ms Sinus bradycardia Otherwise normal ECG Confirmed by BROCK CARRANZA, AMIE ([id number]), social media editor CORDELIA SCOTT ([id number]) on 05/22/2023 9:25:44 AM Referred By: Carlos Crews Confirmed By:AMIE GUTIÉRREZ MD
--- NOTE | 2023-05-21 14:36 | RAD_ITS ---
STUDY: X-RAY CHEST REASON FOR EXAM: Female, 58 years old. 3 week history of shortness of breath. TECHNIQUE: PA and lateral views of the chest. COMPARISON: Comparison is made with prior study dated October 24, 2022. FINDINGS: EKG electrodes are seen. The lungs are clear and expanded. There is no demonstrated pleural abnormality. There is mild cardiac enlargement. Normal mediastinum and anjana. Normal visualized pulmonary arteries. Normal visualized aortic arch and descending thoracic aorta. There are degenerative changes of the visualized thoracic spine. Normal visualized ribs, clavicles, and shoulders. There is no demonstrated abnormality of the visualized soft tissue structures of the upper abdomen. RAD/Chest PA and Lateral IMPRESSION: Cardiomegaly. The lungs are clear. Electronically Signed: Duy Hanna MD at 15:35 EST ,
--- NOTE | 2023-05-21 14:41 | ED.VIS.DYS ---
HPI History of Present Illness Chief Complaint: Shortness of Breath Informant: patient Narrative Narrative: Patient is with wheezing and coughing. Patient states that this started about 2-1/2 to 3 weeks ago. She used to have headaches. She had some muscle aches but that is gone. The whole time she has been coughing. She is not really bringing up much sputum but an occasional little bit of yellow. She had fevers but is not having them anymore. She has chest tightness but denies actual pain. She has an albuterol MDI that she has been trying to use. She has no aerosol. She has not been on steroids in a long time. She states it started more like a cold but seems to be more asthma now. I also noticed on exam that she has a very dry mouth. She is eating and drinking. She states her mouth has been dry like this for months and she is not sure why. She cannot match it with any specific medication that was started. Patient also has a history of heart disease and had an OK about a year ago. She is taking all her meds. She states this does not feel like that. This is tightness not pain. She has never had hemoptysis. She has no leg pain or welling she has no pleuritic pain. [facility] Medical History (Updated 05/21/23 @ 17:[address] Carlos Crews MD) Anxiety and depression Atherosclerotic heart disease of [place] coronary artery without angina pectoris Back pain Bipolar disorder Brain tumor Bronchitis Cardiac arrest with ventricular fibrillation Cardiomyopathy Coronary artery disease CPAP (continuous positive airway pressure) dependence Degeneration of intervertebral disc of lumbosacral region Diabetes mellitus, type II Essential hypertension Hiatal hernia High cholesterol HLD (hyperlipidemia) Hypertension Lumbar facet arthropathy Lumbosacral spondylosis Migraines Obesity (BMI 30-39.9) Osteoarthritis Post-menopausal Presence of stent in coronary artery (~05/17/22) Seizures Sleep apnea Smoker ST elevation (STEMI) myocardial infarction Home Medications nitroglycerin 0.4 mg sublingual tablet 0.4 mg sublingual Q5M PRN Cardiac/Chest Pain #30 tabs 04/06/22 [Rx Last Taken Unknown] buprenorphine 10 mcg/hour weekly transdermal patch 1 patch transdermal QWEEK 05/08/22 [History Last Taken Unknown] escitalopram oxalate 20 mg tablet 20 mg PO DAILY 05/08/22 [History Last Taken 05/17/22] pregabalin 75 mg capsule 75 mg PO BID 05/08/22 [History Last Taken 05/17/22] aspirin 81 mg tablet,delayed release 81 mg PO DAILY@0800 #90 tabs 06/05/22 [Rx Last Taken Unknown] atorvastatin 40 mg tablet 40 mg PO QHS #90 tabs 06/05/22 [Rx Last Taken Unknown] carvedilol 6.25 mg tablet 6.25 mg PO BID #180 tabs 06/05/22 [Rx Last Taken Unknown] dulaglutide 0.75 mg/0.5 mL subcutaneous pen injector (Trulicity) 0.75 mg subcut QWEEK 06/05/22 [History Last Taken Unknown] folic acid 1 mg tablet 1 mg PO DAILY #90 tabs 06/05/22 [Rx Last Taken Unknown] losartan 50 mg tablet 50 mg PO DAILY #90 tabs 06/05/22 [Rx Last Taken Unknown] methotrexate sodium 2.5 mg tablet 15 mg PO QWEEK 06/05/22 [History Last Taken Unknown] clonazepam 0.5 mg tablet 0.5 mg PO BID 08/29/22 [History Last Taken Unknown] clopidogrel 75 mg tablet 75 mg PO .COMPLEX #30 tabs 08/29/22 [Rx Last Taken Unknown] lamotrigine 200 mg tablet 200 mg PO DAILY 08/29/22 [History Last Taken Unknown] zolpidem 10 mg tablet (Ambien) 10 mg PO QHS PRN sleep 08/29/22 [History Last Taken Unknown] albuterol sulfate 90 mcg/actuation aerosol inhaler 2 puff inhalation Q4H SOB and wheezing 05/21/23 [History Last Taken Unknown] alprazolam 0.5 mg tablet 0.5 mg PO BID PRN anxiety 05/21/23 [History Last Taken Unknown] amitriptyline 75 mg tablet 75 mg PO QHS anxiety 05/21/23 [History Last Taken Unknown] bromfenac 0.075 % eye drops (BromSite) drp 05/21/23 [History Last Taken Unknown] ofloxacin 0.3 % eye drops drp 05/21/23 [History Last Taken Unknown] Allergy/AdvReac Type Severity Reaction Status Date / Time tramadol HCl [From Ultram] Allergy Rash Verified 05/21/23 14:23 cariprazine [From Vraylar] AdvReac Other Verified 05/21/23 14:23 codeine AdvReac Vomiting Verified 05/21/23 14:23 hydromorphone [From Dilaudid] AdvReac Nausea/Vom/ Verified 05/21/23 14:23 Diarrhea oxycodone HCl [From Percocet] AdvReac Vomiting Verified 05/21/23 14:23 quetiapine [From Seroquel] AdvReac Other Verified 05/21/23 14:23 Family History Father CHF (congestive heart failure) Other Cardiac arrest with ventricular fibrillation Cardiomyopathy Heart disease Surgical History History of back surgery History of carpal tunnel surgery Hx of knee surgery Hx of neck surgery Presence of coronary angioplasty implant and graft (~05/17/22) Social History household members: significant other Smoking Status: Current every day smoker tobacco type: cigarettes alcohol intake: never substance use type: does not use caffeine: Yes Type: carbonated beverages Number of servings: 1 ROS ROS ED ROS Narrative A complete review of systems was performed and is negative except as documented in the history of present illness. Some specific details below. Constitutional: No current fevers or chills. She did have fevers early on. EYE: No discharge, visual complaints, or pain. ENT: No difficulty swallowing. No swelling. No pain. No reflux symptoms. She had a sore throat early on but that is gone. CV: See history of present illness. Respiratory: See history of present illness. GI: No abdominal pain. No nausea vomiting diarrhea. No blood in stool. She is able to eat and drink but her appetite for food is down. : No frequency dysuria or hematuria. Musculoskeletal: No recent trauma. No current muscle pains. No swelling. Skin: No rash. Nondiaphoretic. Neuro: No weakness or numbness. Endocrine: No polyuria or polydipsia. EXAM Physical Exam Narrative Exam Narrative: CONSTITUTIONAL: Patient is nontoxic in appearance. The patient looks comfortable. Work of breathing looks normal. HEENT: No notable trauma. Mucous membranes look quite dry. She states this is longstanding. No sinus tenderness. No indication of pain with swallowing. EYES: No conjunctival injection. No proptosis. NECK:No JVD. No stridor. CARDIOVASCULAR: Regular rate. Regular rhythm. No notable murmur. No JVD. RESPIRATORY: No respiratory distress. Breathing is mildly labored. She has diffuse inspiratory and expiratory wheezes. Few coarse breath sounds. Occasional dry cough. No rales. No pain with a deep breath. GASTROINTESTINAL: Not distended. Bowel sounds are normal. No tenderness. No guarding. No rebound. No palpable mass. No bruit is heard. GENITOURINARY: No tenderness over the bladder. No CVA tenderness. MUSCULOSKELETAL: Atraumatic. No peripheral edema. No cord. No tenderness along the deep venous system. No asymmetry. No distended veins. NEUROLOGICAL: Patient is alert and appropriate. No focal deficit noted. SKIN: No noted rashes. No diaphoresis. PSYCHIATRIC: Patient is calm. Mood is appropriate. Const Vital Signs: 05/21/23 14:23 05/21/23 15:11 05/21/23 15:14 Temperature 96.9 F L Temperature Source Temporal Pulse Rate 73 Respiratory Rate 24 H Respiratory Effort Short of Breath Respiratory Depth Normal Respiratory Pattern Normal Blood Pressure 96/85 H Blood Pressure Mean 88 Pulse Ox 95 Oxygen Delivery Method Room Air Room Air Room Air 05/21/23 15:15 05/21/23 15:19 05/21/23 15:53 Temperature Temperature Source Pulse Rate 57 L 58 L 74 Respiratory Rate 23 H 24 H 25 H Respiratory Effort Respiratory Depth Respiratory Pattern Tachypnea Blood Pressure 127/51 H 132/97 H Blood Pressure Mean 76 108 Pulse Ox 94 93 Oxygen Delivery Method Room Air Room Air 05/21/23 16:17 05/21/23 15:17 05/21/23 15:27 Temperature Temperature Source Pulse Rate 61 Respiratory Rate 24 H Respiratory Effort Respiratory Depth Respiratory Pattern Tachypnea Blood Pressure 137/91 H Blood Pressure Mean 106 Pulse Ox 96 Oxygen Delivery Method 05/21/23 15:30 05/21/23 15:35 05/21/23 15:36 Temperature Temperature Source Pulse Rate 61 56 L 58 L Respiratory Rate 18 21 H 23 H Respiratory Effort Respiratory Depth Respiratory Pattern Blood Pressure 96/45 L 95/54 L Blood Pressure Mean 61 66 Pulse Ox 95 96 93 Oxygen Delivery Method 05/21/23 15:38 05/21/23 15:40 05/21/23 15:45 Temperature Temperature Source Pulse Rate 56 L 59 L 60 Respiratory Rate 24 H 22 H 23 H Respiratory Effort Respiratory Depth Respiratory Pattern Blood Pressure 89/46 L Blood Pressure Mean 60 Pulse Ox 93 94 93 Oxygen Delivery Method Room Air 05/21/23 15:50 05/21/23 15:52 05/21/23 16:00 Temperature Temperature Source Pulse Rate 54 L 60 58 L Respiratory Rate 27 H 21 H 23 H Respiratory Effort Respiratory Depth Respiratory Pattern Blood Pressure 132/97 H 93/56 L Blood Pressure Mean 109 68 Pulse Ox 92 93 93 Oxygen Delivery Method 05/21/23 16:10 05/21/23 16:15 05/21/23 16:17 Temperature Temperature Source Pulse Rate 57 L 75 58 L Respiratory Rate 22 H 25 H 21 H Respiratory Effort Respiratory Depth Respiratory Pattern Blood Pressure 103/51 L 160/115 H Blood Pressure Mean 65 130 Pulse Ox 92 92 Oxygen Delivery Method Room Air 05/21/23 16:20 Temperature Temperature Source Pulse Rate 57 L Respiratory Rate 16 Respiratory Effort Respiratory Depth Respiratory Pattern Blood Pressure Blood Pressure Mean Pulse Ox 93 Oxygen Delivery Method MDM MDM MDM Narrative Medical decision making narrative: My independent interpretation of the patient's PA and lateral chest x-ray does show some haziness toward the bases more toward right middle lobe. Final reading is pending. Patient's CBC shows mildly low white count and hemoglobin. Platelets are normal. Patient's electrolytes do show a mild acute kidney injury. She is given IV fluids here. Troponin is negative at 10 despite weeks of symptoms. Patient's BNP is negative. The nurse let me know that the patient's blood pressure was still about 95. She sounded very wheezy and she was concerned about her. I went back to check the patient. Her blood pressure is actually better now. But now that we have her x-ray and BNP I am going to get her some IV fluids. She is also wheezing less now. She states she feels better. She looks better than when she came in. She actually has shown improvement. We attempted walking the patient. She went from the bed to the door that is only about 5 feet and her saturations at 87% and she increased dyspnea. Back in bed she is back up to 93% on room air. She is wheezing quite a bit still. She does not have oxygen at home. I think with her hypoxia she does need to come in the hospital. She also has complex medical history with prior heart disease. She is still smoking was counseled to quit. Hospitalist is on page. Lab Data Attestation: I reviewed the patient's lab results. Labs: Laboratory Results - last 24 hr 05/21/23 15:15 WBC 4.3 L RBC 3.58 L Hgb 11.9 L Hct 35.1 L MCV 98.0 MCH 33.2 H MCHC 33.9 RDW Std Deviation 59.4 H RDW Coeff of Erlinda 16.5 H Plt Count 158 MPV 10.5 Immature Gran % (Auto) 1.400 H Neut % (Auto) 76.9 H Lymph % (Auto) 17.1 L [place] % (Auto) 2.5 Eos % (Auto) 1.6 Baso % (Auto) 0.5 Absolute Neuts (auto) 3.3 Absolute Lymphs (auto) 0.74 L Nucleated RBC % 0.5 Sodium 133 L Potassium 4.5 Chloride 103 Carbon Dioxide 21.0 Anion Gap 9 BUN 25 H Creatinine 2.34 H Estim Creat Clear Calc 32.86 Est GFR (MDRD) Af Amer 28 L Est GFR (MDRD) Non-Af 23 L BUN/Creatinine Ratio 10.7 Glucose 124 H Calcium 8.2 L Troponin I High Sens 10 B-Natriuretic Peptide 78.3 Radiography Diagnostic Testing: Clinical Impression(s) from Imaging Studies Chest X-Ray 05/21/23 14:36 IMPRESSION: Cardiomegaly. The lungs are clear. Electronically Signed: Duy Hanna MD at 15:35 EST , EKG Initial EKG: Comments: My independent interpretation of the patient's EKG shows sinus rhythm with mildly bradycardic rate of 54. She is on beta-blockers. No ectopy. No acute ST elevation or depression. Complexes are similar to 08/29/2022 especially allowing for slight lead placement variation. DE interval, QRS duration and QTc are normal. Management Discussion w/another healthcare provider: Hospitalist Discharge Plan Triage Chief Complaint: Shortness of Breath ED Provider: Carlos Crews Dx/Rx/DC Orders Clinical Impression: Acute kidney injury, Asthma exacerbation, Smoking addiction, Hypoxia Prescriptions: No Action escitalopram oxalate 20 mg tablet 20 mg PO DAILY pregabalin 75 mg capsule 75 mg PO BID Patient Comments: TAKE 1 TABLET BY MOUTH TWICE DAILY buprenorphine 10 mcg/hour patch weekly 1 patch transdermal QWEEK methotrexate sodium 2.5 mg tablet 15 mg PO QWEEK Patient Comments: Take 6 tablets by mouth once every week Trulicity 0.75 mg/0.5 mL pen injector 0.75 mg subcut QWEEK atorvastatin 40 mg tablet 40 mg PO QHS Qty: 90 3RF carvedilol 6.25 mg tablet 6.25 mg PO BID Qty: 180 3RF losartan 50 mg tablet 50 mg PO DAILY Qty: 90 3RF folic acid 1 mg tablet 1 mg PO DAILY Qty: 90 3RF aspirin 81 mg tablet,delayed release (DR/EC) 81 mg PO DAILY@0800 Qty: 90 3RF lamotrigine 200 mg tablet 200 mg PO DAILY clonazepam 0.5 mg tablet 0.5 mg PO BID zolpidem [Ambien] 10 mg tablet 10 mg PO QHS PRN (Reason: sleep) clopidogrel 75 mg tablet 75 mg PO .COMPLEX Qty: 30 12RF Rx Instructions: 75 mg orally take 4 tablets by mouth on day 1 and then take 1 tablet by mouth daily; nitroglycerin 0.4 mg Tablet, Sublingual 0.4 mg sublingual Q5M PRN (Reason: Cardiac/Chest Pain) Qty: 30 0RF albuterol sulfate 90 mcg/actuation HFA aerosol inhaler 2 puff INHALATION Q4H Patient Comments: Inhale 2 Puffs as instructed every 4 hours as needed. alprazolam 0.5 mg tablet 0.5 mg PO BID PRN (Reason: anxiety) Patient Comments: Take 1 tablet by mouth two times a day as needed for anxiety (panic symptoms) for up to 30 days. amitriptyline 75 mg tablet 75 mg PO QHS Patient Comments: Take 1 tablet by mouth daily at bedtime. 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 Next of kin: [place] law dictates a PRIORITY LIST for identifying legal decision-maker/legal next of kin in the following order (LNOK): 1st: The patient?s legal guardian, if any 2nd: The patient's spouse (if status is questionable, consult Risk Management) 3rd: The patient?s adult child(stephani) (majority, if multiple children) 4th: The patient?s parents 5th: The patient?s adult siblings (majority, if multiple children siblings)
[2023-05-21] MEDS: Ipratropium/Albuterol Sulfate 3 ML AMPUL.NEB INHALATION ×4 (14:57→23:06)
[2023-05-21] MEDS: Albuterol 2.5 MG/3 ML VIAL.NEB. INHALATION (14:57)
[2023-05-21] MEDS: MethylPREDNISolone 125 MG/2 ML Vial IV (15:11)
[2023-05-21 15:30] LABS: Absolute Lymphocyte Count 0.74 X10^3/uL (0.83-4.51); Absolute Neutrophil Count 3.3 X10^3/uL (2.0-7.7); Basophil# 0.02 X10^3/uL; Basophil% 0.5 % (0-1); Eosinophil# 0.07 X10^3/uL; Eosinophils% 1.6 % (0-5); Hematocrit 35.1 % (37-47); Hemoglobin 11.9 g/dL (12.0-15.0); Lymphocyte # 0.74 X10^3/ul (0.83-4.51); Lymphocyte % 17.1 % (19-41); Mean Corp Hgb Conc 33.9 g/dL (32-36); Mean Corpuscular Hgb 33.2 pg (27.0-32.0); Mean Platelet Vol. 10.5 fl (6.2-12.0); Monocyte# 0.11 X10^3/uL; Monocyte% 2.5 % (0-10); NRBC Flagged by Analyzer 0.5 % (0-5); Neutrophil # 3.34 X10^3/uL (2.7-7.7); Neutrophil % 76.9 % (47-70); Platelet Count 158 K/mm3 (150-450); RBC Distribution Width CV 16.5 % (11.6-14.6); RBC Distribution Width SD 59.4 fl (35.1-43.9); Red Blood Count 3.58 M/mm3 (4.2-5.4); White Blood Count 4.3 K/mm3 (4.4-11.0)
[2023-05-21 15:49] LABS: Anion Gap 9 (5-15); BUN 25 mg/dL (7-18); BUN/Creat Ratio 10.7 RATIO (10-20); Calcium,Total 8.2 mg/dL (8.5-10.1); Chloride 103 mmol/L (98-107); Creatinine, Serum 2.34 mg/dL (0.55-1.02); EST Glomerular Filtration Rate 23 mL/min (>60); Est Glom Filt Rate - Afr Amer 28 mL/min (>60); Estimated Creatinine Clearance 32.86 ml/min; Glucose 124 mg/dL (74-106); Potassium 4.5 mmol/L (3.5-5.1); Sodium Level 133 mmol/L (136-145); Troponin-I HS 10 pg/mL (3.0-54.0)
[2023-05-21 15:54] LABS: BNP,B-Type NATRIURETIC PEPTIDE 78.3 pg/mL (0-100)
[2023-05-21] MEDS: 0.9% Normal Saline (1000mL) 1,000 ML 999 ML IV (15:54)
--- NOTE | 2023-05-21 16:21 | ED.RN ---
1617: phone call from sister, Kailyn Aguillon,not a listed contact assembler for pt., asking for medical information on Lili Moran. I asked the patient if it was okay to give a treatment update to her sister and I received verbal consent. I updated the sister on the plan of care for Ms. Moran at this time.
--- NOTE | 2023-05-21 17:04 | NURSING ---
DR KATIE CARRENO
--- NOTE | 2023-05-21 17:07 | PCM.HP.STD ---
HPI - General General Date of Admission: 05/21/23 Date of Service: 05/21/23 Chief Complaint: Shortness of Breath HPI Narrative JUAN EAGLE, is a 58 F who presented to the emergency department at [facility] on 05/21/2023 due to shortness of breath, wheezing, and coughing. Patient states this is gone on for about 2 to 3 weeks now. I asked her why she came in today versus previously and she stated that she was just tired of feeling badly. She states she has had associated decreased appetite, headache, chills, malaise, and myalgias. She is still smoking about half a pack of cigarettes a day. 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 She states she gets mostly short of breath when she tries to exert herself but does have some shortness of breath at rest. She has had a dry hacking cough with no sputum production. She had fevers previously but not been having them anymore and is complaining of some chest tightness related to bronchospasm but no actual chest pain. She has been trying to use her albuterol MDI at home but has not gotten much relief. She also complained that she noted she been having a significantly dry mouth but is unable to relay when this started. She denies any weight gain or significant leg swelling. She does have a diagnosis of sleep apnea and has been compliant with her CPAP at night. Vital signs on presentation showed temperature of 96.9, heart rate 73, initial blood pressure was 96/85 with a repeat of 127/51, respiratory rate has been anywhere from 18-27 and oxygen saturations are stable on room air at rest between 94 and 96% however with exertion her oxygen saturations dropped to 87%. On exam she is audibly wheezing and also does seem to have an upper airway wheeze present as well. CBC shows a leukopenia with white count of 4.3, mild anemia with a hemoglobin of 11.9 and a left shift with a neutrophilia at 76.9%. Her chemistry panel shows mild hyponatremia with a sodium of 133. Her BUN and serum creatinine are markedly elevated above baseline at 25 and 2.34 respectively (baseline serum creatinine runs between 1.0 and 1.4) glucose was 124. Troponin was 10. BNP was 78.3. Chest x-ray was unremarkable. EKG shows normal sinus rhythm with normal intervals and no ST-T wave changes concerning for acute ischemia. The emergency department at [facility] for COVID/flu/RSV was obtained and she was found to be positive for COVID-19. In the emergency department she was treated with IV fluids and aggressive aerosol treatments as well as IV steroids with the attempt to get her home however she became hypoxic on room air with exertion so admission was required. The fact that she has been positive for symptoms for 2 to 3 weeks now we are unclear when she actually became infected with COVID-19 and unfortunately are unable to use antivirals. FORMERLY [facility], [facility] Medical History Anxiety and depression Atherosclerotic heart disease of circle coronary artery without angina pectoris Back pain Bipolar disorder Brain tumor Bronchitis Cardiac arrest with ventricular fibrillation Cardiomyopathy Coronary artery disease CPAP (continuous positive airway pressure) dependence Degeneration of intervertebral disc of lumbosacral region Diabetes mellitus, type II Essential hypertension Hiatal hernia High cholesterol HLD (hyperlipidemia) Hypertension Lumbar facet arthropathy Lumbosacral spondylosis Migraines Obesity (BMI 30-39.9) Osteoarthritis Post-menopausal Presence of stent in coronary artery (~05/17/22) Seizures Sleep apnea Smoker ST elevation (STEMI) myocardial infarction Home Medications nitroglycerin 0.4 mg sublingual tablet 0.4 mg sublingual Q5M PRN CHEST PAIN #30 tabs 04/06/22 [Rx Last Taken Unknown] escitalopram oxalate 20 mg tablet 30 mg PO DAILY DEPRESSION 05/08/22 [History Last Taken 05/17/22] pregabalin 75 mg capsule 75 mg PO BID PAIN 05/08/22 [History Last Taken 05/17/22] aspirin 81 mg tablet,delayed release 81 mg PO DAILY@0800 HEART HEALTH #90 tabs 06/05/22 [Rx Last Taken 05/20/23] atorvastatin 40 mg tablet 40 mg PO QHS CHOLESTEROL #90 tabs 06/05/22 [Rx Last Taken 05/20/23] carvedilol 6.25 mg tablet 6.25 mg PO BID HEART #180 tabs 06/05/22 [Rx Last Taken 05/21/23] methotrexate sodium 2.5 mg tablet 15 mg PO QWEEK RHEUMATOID ARTHRITIS 06/05/22 [History Last Taken Unknown] zolpidem 10 mg tablet (Ambien) 10 mg PO QHS PRN SLEEP 08/29/22 [History Last Taken 05/20/23] albuterol sulfate 90 mcg/actuation aerosol inhaler 2 puff inhalation Q4H PRN SHORTNESS OF BREATH/WHEEZING 05/21/23 [History Last Taken 05/21/23] alprazolam 0.5 mg tablet 0.5 mg PO BID PRN ANXIETY 05/21/23 [History Last Taken 05/20/23] buprenorphine 20 mcg/hour weekly transdermal patch 1 patch transdermal TH SEVERE PAIN 05/21/23 [History Last Taken 05/16/23] clopidogrel 75 mg tablet 75 mg PO DAILY BLOOD THINNER 05/21/23 [History Last Taken 05/19/23] diclofenac sodium 1 % topical gel 2 g topical 4X/DAY PRN PAIN 05/21/23 [History Last Taken 05/20/23] fluticasone furoate 200 mcg-vilanterol 25 mcg/dose inhalation powder (Breo Ellipta) 1 inh inhalation DAILY ASTHMA 05/21/23 [History Last Taken Unknown] lansoprazole 30 mg capsule,delayed release 30 mg PO DAILY ACID REFLUX 05/21/23 [History Last Taken 05/20/23] lidocaine 5 % topical ointment 1 applic topical 4X/DAY PRN PAIN 05/21/23 [History Last Taken Unknown] valbenazine 80 mg capsule (Ingrezza) 80 mg PO DAILY [place]S DISEASE 05/21/23 [History Last Taken 05/20/23] Allergy/AdvReac Type Severity Reaction Status Date / Time tramadol HCl [From Ultram] Allergy Rash Verified 05/21/23 14:23 cariprazine [From Vraylar] AdvReac Other Verified 05/21/23 14:23 codeine AdvReac Vomiting Verified 05/21/23 14:23 hydromorphone [From Dilaudid] AdvReac Nausea/Vom/ Verified 05/21/23 14:23 Diarrhea oxycodone HCl [From Percocet] AdvReac Vomiting Verified 05/21/23 14:23 quetiapine [From Seroquel] AdvReac Other Verified 05/21/23 14:23 Family History Father CHF (congestive heart failure) Other Cardiac arrest with ventricular fibrillation Cardiomyopathy Heart disease Surgical History History of back surgery History of carpal tunnel surgery Hx of knee surgery Hx of neck surgery Presence of coronary angioplasty implant and graft (~05/17/22) Social History household members: significant other Smoking Status: Current every day smoker tobacco type: cigarettes alcohol intake: never substance use type: does not use caffeine: Yes Type: carbonated beverages Number of servings: 1 ROS Constitutional Constitutional: Reports anorexia, chills, fatigue, malaise and weakness; Denies change in weight, fever(s), night sweats or other Eyes Eyes: Denies blurry vision, change in eye color, change in vision, discharge from eye(s), double vision, erythema, eye pain, loss of vision or other ENT HEENT: Reports headache(s); Denies abnormal hearing, dysphagia, ear pain, epistaxis, hearing loss, nasal congestion, nasal discharge, post nasal drip, sinus pressure, sore throat or other Cardiovascular Cardiovascular: Reports dyspnea on exertion; Denies chest pain, claudication, edema, lightheadedness, orthopnea, palpitations, paroxysmal nocturnal dyspnea, rapid heart rate, syncope or other Respiratory/Chest Respiratory/Chest: Reports cough, dyspnea, shortness of breath at rest, shortness of breath with exertion and wheezing; Denies excessive phlegm production, hemoptysis, productive cough or other Gastrointestinal Gastrointestinal: Denies abdominal pain, coffee ground emesis, constipation, diarrhea, dyspepsia, hematemesis, hematochezia, loose stools, melena, nausea, vomiting or other Genitourinary Genitourinary: Denies burning urination, difficulty urinating, dysuria, hematuria, nocturia, urinary frequency, urinary hesitancy, urinary incontinence, urinary urgency or other Musculoskeletal Musculoskeletal: Reports arthralgias, back pain, joint pain, joint stiffness and myalgias; Denies joint swelling, neck pain or other Neurologic Neurologic: Reports headache(s); Denies abnormal gait, abnormal speech, confusion, disequilibrium, dizziness, focal weakness, numbness, paresthesias, seizure-like activity, seizures, syncope, tingling, tremor(s) or other Psychiatric Psychiatric: Denies anxiety, depression, homicidal ideation, suicidal ideation or other Endocrine Endocrinology: Denies change in body appearance, cold intolerance, excessive sweating, heat intolerance, polydipsia, polyuria or other Hematologic/Lymphatic Hematologic/Lymphatic: Denies anemia, easy bleeding, easy bruising, lymphadenopathy or other Allergic/Immunologic Allergic/Immunologic: Denies rhinitis, hives, eczemia, asthma or other Vital Signs Vital Signs Vital Signs: 05/21/23 14:23 05/21/23 15:11 05/21/23 15:14 Temperature 96.9 F L Temperature Source Temporal Pulse Rate 73 Respiratory Rate 24 H Respiratory Effort Short of Breath Respiratory Depth Normal Respiratory Pattern Normal Blood Pressure 96/85 H Blood Pressure Mean 88 Pulse Ox 95 Oxygen Delivery Method Room Air Room Air Room Air 05/21/23 15:15 05/21/23 15:19 05/21/23 15:53 Temperature Temperature Source Pulse Rate 57 L 58 L 74 Respiratory Rate 23 H 24 H 25 H Respiratory Effort Respiratory Depth Respiratory Pattern Tachypnea Blood Pressure 127/51 H 132/97 H Blood Pressure Mean 76 108 Pulse Ox 94 93 Oxygen Delivery Method Room Air Room Air 05/21/23 16:17 05/21/23 15:17 05/21/23 15:27 Temperature Temperature Source Pulse Rate 61 Respiratory Rate 24 H Respiratory Effort Respiratory Depth Respiratory Pattern Tachypnea Blood Pressure 137/91 H Blood Pressure Mean 106 Pulse Ox 96 Oxygen Delivery Method 05/21/23 15:30 05/21/23 15:35 05/21/23 15:36 Temperature Temperature Source Pulse Rate 61 56 L 58 L Respiratory Rate 18 21 H 23 H Respiratory Effort Respiratory Depth Respiratory Pattern Blood Pressure 96/45 L 95/54 L Blood Pressure Mean 61 66 Pulse Ox 95 96 93 Oxygen Delivery Method 05/21/23 15:38 05/21/23 15:40 05/21/23 15:45 Temperature Temperature Source Pulse Rate 56 L 59 L 60 Respiratory Rate 24 H 22 H 23 H Respiratory Effort Respiratory Depth Respiratory Pattern Blood Pressure 89/46 L Blood Pressure Mean 60 Pulse Ox 93 94 93 Oxygen Delivery Method Room Air 05/21/23 15:50 05/21/23 15:52 05/21/23 16:00 Temperature Temperature Source Pulse Rate 54 L 60 58 L Respiratory Rate 27 H 21 H 23 H Respiratory Effort Respiratory Depth Respiratory Pattern Blood Pressure 132/97 H 93/56 L Blood Pressure Mean 109 68 Pulse Ox 92 93 93 Oxygen Delivery Method 05/21/23 16:10 05/21/23 16:15 05/21/23 16:17 Temperature Temperature Source Pulse Rate 57 L 75 58 L Respiratory Rate 22 H 25 H 21 H Respiratory Effort Respiratory Depth Respiratory Pattern Blood Pressure 103/51 L 160/115 H Blood Pressure Mean 65 130 Pulse Ox 92 92 Oxygen Delivery Method Room Air 05/21/23 16:20 Temperature Temperature Source Pulse Rate 57 L Respiratory Rate 16 Respiratory Effort Respiratory Depth Respiratory Pattern Blood Pressure Blood Pressure Mean Pulse Ox 93 Oxygen Delivery Method Weight Weight: 124.511 kg Body Mass Index (BMI) 51.8 Physical Exam Const alert, oriented x3, no apparent distress and well nourished; Negative for average body habitus or healthy appearing Constitutional Narrative: Morbidly obese, middle-aged, white female who appears older than stated age, sitting up in bed watching television, appears comfortable but is mildly dyspneic, mumbles during conversation but is intelligible General Appearance: cooperative HEENT normocephalic, head/scalp atraumatic and hearing grossly normal bilaterally; Negative for moist oral mucous membranes or oropharynx normal HEENT Narrative: Mallampati 4, mucous membranes are extremely dry, no thrush Eyes PERRL, EOMs intact bilaterally and conjunctivae normal Eyes Narrative: No scleral icterus Neck no lymphadenopathy and supple Neck Narrative: Neck is short and thick, trachea is midline, no noted thyroid enlargement Resp No normal respiratory effort, no retractions, no use of accessory muscles and No clear to auscultation bilaterally Resp Narrative: Diffuse scattered end expiratory wheeze, mild tachypnea, patient also has upper airway wheeze noted on exam Auscultation: wheezes; Negative for rales or rhonchi Cardio regular rate, regular rhythm, S1 normal heart sound, S2 normal heart sound, no murmurs, no rub, no gallops and no clicks Cardio Narrative: Very distant GI normal to inspection, nondistended, normoactive bowel sounds, soft to palpation and non-tender GI Narrative: Large protuberant abdomen Extremity no clubbing, cyanosis or edema Extremity Narrative: Pulses are 2+ Skin no wounds, skin turgor normal, no jaundice, no petechiae and no mottling Neuro oriented x3, CN's II-XII intact bilaterally, moves all extremities and no focal motor deficits Neuro Narrative: Speech is garbled but intelligible Speech: Negative for speech normal Psych Psych Narrative: Affect is flat Results Lab / Micro Data 05/21/23 15:15 05/21/23 15:15 Labs: Laboratory Results - last 24 hr 05/21/23 15:15: WBC 4.3 L, RBC 3.58 L, Hgb 11.9 L, Hct 35.1 L, MCV 98.0, MCH 33.2 H, MCHC 33.9, RDW Std Deviation 59.4 H, RDW Coeff of Erlinda 16.5 H, Plt Count 158, MPV 10.5, Immature Gran % (Auto) 1.400 H, Neut % (Auto) 76.9 H, Lymph % (Auto) 17.1 L, Brantley % (Auto) 2.5, Eos % (Auto) 1.6, Baso % (Auto) 0.5, Absolute Neuts (auto) 3.3, Absolute Lymphs (auto) 0.74 L, Nucleated RBC % 0.5, Sodium 133 L, Potassium 4.5, Chloride 103, Carbon Dioxide 21.0, Anion Gap 9, BUN 25 H, Creatinine 2.34 H, Estim Creat Clear Calc 32.86, Est GFR (MDRD) Af Amer 28 L, Est GFR (MDRD) Non-Af 23 L, BUN/Creatinine Ratio 10.7, Glucose 124 H, Calcium 8.2 L, Troponin I High Sens 10, B-Natriuretic Peptide 78.3 Imagaing Radiology Impression Chest X-Ray 05/21/23 14:36 IMPRESSION: Cardiomegaly. The lungs are clear. Electronically Signed: Duy Hanna MD at 15:35 EST , Assessment & Plan Assessment/Plan (1) Hypoxia: (2) Acute exacerbation of COPD with asthma: (3) Anemia: (4) Leukopenia: (5) Acute kidney injury: (6) Hyponatremia: (7) COVID-19: PLAN: Plan Hypoxia/shortness of breath secondary to acute COVID-19 pneumonia/acute exacerbation of COPD -Chest x-ray shows no acute process -COVID-19 PCR is positive -Onset of symptoms specifically COVID is unclear as patient is complaining that symptoms have been ongoing for 2 to 3 weeks -Remdesivir and Decadron are not appropriate therapy due to this at this time -Respiratory viral panel is pending -Strep pneumo and Legionella antigens are pending -Doubt superimposed bacterial pneumonia at this time but will monitor clinically for this development -Check sputum culture if patient able to produce -Aggressive pulmonary toilet with as needed and scheduled DuoNebs/albuterol -Solu-Medrol 40 every 8 -Incentive spirometry -Acapella -Mucinex 1200 p.o. twice daily -Antitussives as needed -Patient will need isolation for 5 days then wear mask in public environments and around people for 5 days following from 05/21/2023 Hyponatremia -Mild -Likely related to hypovolemic hyponatremia she appears dehydrated -Will gently hydrate and repeat in a.m. -Also could be related to acute COVID-19 infection EDWIN on CKD stage IIIb -Baseline serum creatinine appears to run between 1 and 1.4 -Current serum creatinine 2.34 -P.o. intake has been poor and I suspect the elevation is due to dehydration -Will renally dose medications as needed -Anticipate this should improve with IV fluids -Patient given 1 L in the emergency department and will give another liter on the floor with follow-up BMP in a.m. as she has history of pretty severe diastolic dysfunction CAD/HTN/HPL -Most recent PCI was 05/17/2022 with YADIEL to proximal LAD and distal RCA -Continue home Plavix -Continue home car middle -continue home atorvastatin next-continue home aspirin -Ongoing outpatient follow-up with cardiology -Had negative stress test 11/21/2022 Leukopenia -Suspect related to acute COVID-19 infection -Will monitor Anemia -This appears to be acute and is mild -Will monitor counts and assess for decline with no further workup at this time Asthma -DuoNebs and albuterol as above -Hold inhalers -Recommend ongoing outpatient follow-up with primary pulmonology at [facility] -Recommend cessation of tobacco abuse JOSE -BiPAP ordered with AutoPap nocturnally -Patient is compliant with CPAP at home DM-2 -Patient is on no medications for this -Most recent hemoglobin A1c was -SSI with use of steroids Rheumatoid arthritis -Hold home methotrexate GERD -Continue home PPI Chronic pain -Continue buprenorphine -Continue Lyrica -Continue buprenorphine patch Depression/anxiety/insomnia/bipolar disorder -With respiratory issues we will hold zolpidem for now -continue Lexapro -continue home Xanax Morbid obesity -BMI is 51.9 -Recommend weight loss -Complicates treatment, prognosis, outcomes Tobacco abuse -Ongoing tobacco abuse with about a half a pack of cigarettes a day -Patient denies need for nicotine replacement at this time -Recommend tobacco cessation DVT prophylaxis -Heparin 3 times daily 5000 units CODE STATUS -Full code Charges/Coding Visit Charges Inpatient E&M: 81516 Init Hosp L2
--- NOTE | 2023-05-21 17:10 | NURSING ---
MED SURG OBS KATIE ASTHMA EXAC, HYPOXIA
--- OUTSIDE RECORDS SUMMARY | 2023-05-21 17:19 | XMS RPT_ITS | CCD ---
Author Name Unknown Address [address] [place] [address] Organization [facility] Care Team Providers Care Medicine Tech Name Role Phone Ezequiel CARRANZA, Jericho Prado Primary Care Provider [phone] EZEQUIEL CARRANZA, DR HELM Primary Care Physician Ezequiel CARRANZA, Jericho Prado Primary Care Provider [phone] KARISHMA CARRANZA, ELIECER Dent Attending Unavailab christiano TINOCO MD., DR. HELM Primary Care Leonardo TINOCO MD., DR. HELM Primary Care Leonardo RIGGS MD, ROBIN Womack Attending Unavailable JERICHO TINOCO Primary Care Unavailable SEDA QUIROZ Attending Unavailable JOANNA SALINAS Referring Unavailable JERICHO TINOCO Primary Care Unavailable JOANNA SALINAS Attending Unavailable JERICHO TINOCO Primary Care Unavailable SEDA QUIROZ Attending Unavailable ARON NAVARRO Attending Unavailable JERICHO TINOCO Primary Care Unavailable JERICHO TINOCO Primary Care Unavailable JERICHO TINOCO Referring Unavailable SEDA QUIROZ Attending Unavailable ARON NAVARRO Referring Unavailable JERICHO TINOCO Primary Care Unavailable JERICHO TINOCO Attending Unavailable JERICHO TINOCO Primary Care Unavailable JERICHO TINOCO Primary Care Unavailable JOANNA SALINAS Attending Unavailable JERICHO TINOCO Primary Care Unavailable JOANNA SALINAS Referring Unavailable JERICHO TINOCO Primary Care Unavailable SEDA QUIROZ Attending Unavailable JERICHO TINOCO Primary Care Unavailable FIDEL BAZAN Referring Unavailable JERICHO TINOCO Primary Care Unavailable JERICHO TINOCO Primary Care Unavailable JAMILAH GALVAN Attending Unavailable TINOCO, OJHANNA Primary Care Unavailable TINOCO, JOHANNA Referring Unavailable ARON NAVARRO Attending Unavailable TINOCO, JOHANNA Primary Care Unavailable TINOCO, JOHANNA Primary Care Unavailable TIONCO, JOHANNA Referring Unavailable TINOCO, JOHANNA Primary Care Unavailable SEDA QUIROZ Attending Unavailable JOANNA SALINAS Referring Unavailable TALIA DIAS Attending Unavailable EZEQUIEL, JERICHO Prado Primary Care Unavailable TALIA DIAS Referring Unavailable EZEQUIEL, JOHANNA Primary Care Unavailable TINOCO, JOHANNA Primary Care Unavailable EZEQUIEL, JERICHO Prado Referring Unavailable SEDA QUIROZ Attending Unavailable Allergies Allergy Classification Reported Allergen(s) Allergy Type Date of Onset Reaction(s) Facility (20 sources) Acetaminophen / oxyCODONE; Translations: [acetaminophen-oxy codone] Drug Allergy 5 GI Upset [facility] (20 sources) cariprazine; Translations: [CARIPRAZINE] Drug Allergy 9 Other: See Comments [facility] (20 sources) Codeine; Translations: [codeine] Drug Allergy 5 Other: See Comments [facility] (20 sources) HYDROmorphone; Translations: [HYDROMORPHONE (BULK)] Drug Allergy 5 GI Upset [facility] (20 sources) QUEtiapine; Translations: [quetiapine] Drug Allergy 9 Other: See Comments [facility] (20 sources) traMADol; Translations: [TRAMADOL HCL] Drug Allergy 5 GI Upset [facility] (2 sources) HYDROmorphone; Translations: [hydromorphone] Drug Allergy [facility] (2 sources) traMADol; Translations: [tramadol] Drug Allergy [facility] Medications Current Medications Medication Drug Class(es) Dates Sig (Normalized) Sig (Original) ALPRAZolam 0.5 mg oral tablet (17 sources) Benzodiazepine Start: 05-14-2023 End: 06-13-2023 take 1 tablet by mouth twice daily as needed for anxiety ALPRAZolam (XANAX) 0.5 mg tablet Indications: Dyskinesia, tardive , Panic disorder with agoraphobia Take 1 tablet by mouth two times a day as needed for anxiety (panic symptoms) for up to 30 days. 30 tablet 1 05/14/2023 06/13/2023 Active Completed/Discontinued Medications Medication Drug Class(es) Dates Sig (Normalized) Sig (Original) acetaminophen 325 mg / HYDROcodone bitartrate 5 mg oral tablet (4 sources) Opioid Agonist Start: 03-08-2022 End: 03-13-2022 take 1 tablet by mouth every six hours as needed for pain Lee 325- 5 mg oral tablet Dose = 1 tab(s), Oral, q6h, PRN as needed for pain, # 20 tab(s), 0 Refill(s), Shingles, 122 Start Date: 03/08/22 Stop Date: 03/13/22 Status: Ordered Problems Active Problems Problem Classification Problem Date Documented Da te Episodic/Chronic Abdominal pain (2 sources) Abdominal pain 09-02-2017 Episodic Acute myocardial infarction (20 sources) Myocardial infarction; Translations: [ST elevation (STEMI) myocardial infarction involving left circumflex coronary artery] Onset: 2 04-11-2022 Chronic Anxiety disorders (20 sources) Panic disorder; Translations: [Panic disorder [episodic paroxysmal anxiety]] Onset: 5 06-01-2019 Chronic Asthma (20 sources) Uncomplicated moderate persistent asthma; Translations: [Moderate persistent asthma, uncomplicated] Onset: 0 01-25-2020 Chronic Cardiac arrest and ventricular fibrillation (12 sources) Ventricular fibrillation; Translations: [Ventricular fibrillation] Onset: 2 04-11-2022 Chronic Chronic kidney disease (20 sources) Chronic kidney disease stage 3B ; Translations: [Stage 3b chronic kidney disease (HCC)] Onset: 2 Chronic Chronic obstructive pulmonary disease and bronchiectasis (2 sources) Asthma-chronic obstructive pulmonary disease overlap syndrome 01-23-2021 Chronic Coronary atherosclerosis and other heart disease (20 sources) Coronary atherosclerosis; Translations: [Atherosclerotic heart disease of marshall coronary artery without angina pectoris] Onset: 2 04-11-2022 Chronic Diabetes mellitus with complications (20 sources) Type 2 diabetes mellitus; Translations: [Type 2 diabetes mellitus with diabetic chronic kidney disease] Onset: 2 Chronic Diabetes mellitus without complication (10 sources) Type 2 diabetes mellitus without complication; Translations: [Type 2 diabetes mellitus without complications] Onset: 6 06-01-2019 Chronic Diabetes mellitus without complication (1 source) Diabetes mellitus without complication; Translations: [Type 2 diabetes mellitus with stage 3a chronic kidney disease, without long-term current use of insulin (HCC)] Onset: 2 Disorders of lipid metabolism (20 sources) Mixed hyperlipidemia; Translations: [Mixed hyperlipidemia] Onset: 6 05-29-2019 Chronic Esophageal disorders (6 sources) Gastroesophageal reflux disease without esophagitis; Translations: [Gastro-esophageal reflux disease without esophagitis] Chronic Mood disorders (20 sources) Bipolar disorder; Translations: [Bipolar disorder, unspecified] Onset: 3 Chronic Mycoses (1 source) Onychomycosis; Translations: [Tinea unguium] 12-04-2022 Episodic Osteoarthritis (2 sources) Arthritis 09-02-2017 Chronic Other circulatory disease (1 source) Abnormal peripheral pulse; Translations: [Other specified symptoms and signs involving the circulatory and respiratory systems] 12-04-2022 Episodic Other connective tissue disease (1 source) Pain of toe of left foot; Translations: [Pain in left toe(s)] 12-04-2022 Episodic Other connective tissue disease (1 source) Pain of toe of right foot; Translations: [Pain in right toe(s)] 12-04-2022 Episodic Other gastrointestinal disorders (20 sources) Irritable bowel syndrome with diarrhea; Translations: [Irritable bowel syndrome with diarrhea] Onset: 2 12-02-2021 Chronic Other hereditary and degenerative nervous system conditions (20 sources) Tardive dyskinesia; Translations: [Drug induced subacute dyskinesia] Onset: 3 Episodic Other inflammatory condition of skin (20 sources) Psoriatic arthritis; Translations: [Arthropathic psoriasis, unspecified] Onset: 1 03-15-2021 Chronic Other lower respiratory disease (2 sources) Dyspnea; Translations: [Shortness of breath] Episodic Other nervous system disorders (2 sources) Spinal cord compression; Translations: [Unspecified cord compression] Onset: 0 06-01-2019 Chronic Other nervous system disorders (1 source) Tremor; Translations: [Tremor, unspecified] Episodic Other nervous system disorders (2 sources) H/O: brain disorder 09-02-2017 Episodic Other non-traumatic joint disorders (1 source) Pain of right wrist; Translations: [Pain in right wrist] 03-06-2023 Episodic Other nutritional; endocrine; and metabolic disorders (4 sources) Morbid obesity; Translations: [Morbid (severe) obesity due to excess calories] Onset: 8 03-20-2021 Chronic Other nutritional; endocrine; and metabolic disorders (20 sources) Severe obesity; Translations: [Morbid (severe) obesity due to excess calories] Onset: 8 11-30-2021 Chronic Other nutritional; endocrine; and metabolic disorders (1 source) Body mass index 40+ - severely obese; Translations: [Morbid (severe) obesity due to excess calories] Chronic Other screening for suspected conditions (not mental disorders or infectious disease) (1 source) Encounter for screening mammogram for malignant neoplasm of breast; Translations: [Encounter for screening mammogram for breast cancer] Onset: 3 Episodic Other skin disorders (1 source) Foot callus; Translations: [Corns and callosities] 12-04-2022 Episodic Other skin disorders (1 source) Ingrowing toenail; Translations: [Ingrowing nail] 12-04-2022 Episodic Residual codes; unclassified (20 sources) Obstructive sleep apnea syndrome; Translations: [Obstructive sleep apnea (adult) (pediatric)] Onset: 6 05-26-2015 Chronic Residual codes; unclassified (1 source) Insomnia; Translations: [Insomnia, unspecified] Episodic Spondylosis; intervertebral disc disorders; other back problems (20 sources) Post-laminectomy syndrome; Translations: [Postlaminectomy syndrome, not elsewhere classified] Onset: 6 12-05-2015 Chronic Substance-related disorders (20 sources) Tobacco user; Translations: [Nicotine dependence, unspecified, uncomplicated] Onset: 0 12-16-2019 Chronic Viral infection (1 source) Herpes zoster without complication; Translations: [Zoster without complications] Onset: 2 Episodic Past or Other Problems Problem Classification Problem Date Documented Da te Episodic/Chronic Gastritis and duodenitis (2 sources) Helicobacter pylori-associated gastritis; Translations: [Gastritis, unspecified, without bleeding] Onset: 01-24-2021 02-10-2021 Episodic Headache; including migraine (20 sources) Headache; Translations: [Persistent headaches] Onset: 08-14-2018 08-14-2018 Episodic Other aftercare (20 sources) Patient encounter status; Translations: [Other terminal gauger (current) drug therapy] Onset: 07-01-2022 Episodic Other aftercare (1 source) Other terminal gauger (current) drug therapy; Translations: [Encounter for long-term (current) use of medications] Onset: 07-01-2022 Episodic Other connective tissue disease (20 sources) History of cervical spine fusion; Translations: [Arthrodesis status] Onset: 06-15-2019 06-15-2019 Episodic Other connective tissue disease (1 source) Pain in left hand; Translations: [Hand pain, left] Onset: 01-15-2023 Episodic Other hereditary and degenerative nervous system conditions (1 source) Drug induced subacute dyskinesia; Translations: [Dyskinesia, tardive] Onset: 07-01-2022 Episodic Other lower respiratory disease (1 source) Shortness of breath; Translations: [SOB (shortness of breath)] Onset: 07-20-2022 Episodic Other non-traumatic joint disorders (2 sources) Multiple joint pain; Translations: [Pain in unspecified joint] Onset: 05-26-2015 05-26-2015 Episodic Other non-traumatic joint disorders (1 source) Pain in left wrist; Translations: [Left wrist pain] Onset: 01-15-2023 Episodic Other skin disorders (1 source) Ingrowing nail; Translations: [Ingrowing toenail] Onset: 02-07-2023 Episodic Residual codes; unclassified (20 sources) Edema; Translations: [Edema, unspecified] Onset: 04-05-2016 04-05-2016 Episodic Residual codes; unclassified (2 sources) Pain; Translations: [Pain, unspecified] Onset: 05-28-2019 06-01-2019 Episodic Spondylosis; intervertebral disc disorders; other back problems (20 sources) Lumbar radiculopathy; Translations: [Radiculopathy, lumbar region] Onset: 12-05-2015 12-05-2015 Episodic Results Test Name Value Interpretation Reference Range Facil ity Vital Signs Date Time Vital Sign Value Performing Clinician Faci vinayak 05-14-2023 08:56-0500 Body weight 128.19 kg Seda Rajguru 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 Work Phone: [facility] 05-14-2023 08:56-0500 Diastolic blood pressure 58 mm[Hg] Seda Rajguru 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 Work Phone: [facility] 05-14-2023 08:56-0500 Heart rate 80 /min Seda Rajguru 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 Work Phone: [facility] 05-14-2023 08:56-0500 Systolic blood pressure 122 mm[Hg] Seda Rajguru 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 Work Phone: [facility] 04-02-2023 13:37-0500 Body weight 126.1 kg Seda Rajguru 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 Work Phone: [facility] 04-02-2023 13:37-0500 Diastolic blood pressure 66 mm[Hg] Seda Rajguru 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 Work Phone: [facility] 04-02-2023 13:37-0500 Heart rate 80 /min Seda Rajguru 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 Work Phone: [facility] 04-02-2023 13:37-0500 Systolic blood pressure 138 mm[Hg] Seda Rajguru 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 Work Phone: [facility] 03-06-2023 11:02-0400 Body weight 127.87 kg Jericho Tinoco MD Work Phone: [facility] 03-06-2023 11:02-0400 Diastolic blood pressure 60 mm[Hg] Jericho Tinoco MD Work Phone: [facility] 03-06-2023 11:02-0400 Heart rate 64 /min Jericho Tinoco MD Work Phone: [facility] 03-06-2023 11:02-0400 Respiratory rate 20 /min Jericho Tinoco MD Work Phone: [facility] 03-06-2023 11:02-0400 Systolic blood pressure 118 mm[Hg] Jericho Tinoco MD Work Phone: [facility] 01-21-2023 12:56-0400 Body weight 124.29 kg Jamilah Memo PA-C Work Phone: [facility] 01-21-2023 12:56-0400 Diastolic blood pressure 60 mm[Hg] Jamilah Memo PA-C Work Phone: [facility] 01-21-2023 12:56-0400 Heart rate 62 /min Jamilah Memo PA-C Work Phone: [facility] 01-21-2023 12:56-0400 Respiratory rate 15 /min Jamilah Memo PA-C Work Phone: [facility] 01-21-2023 12:56-0400 SaO2% (BldA) [Mass fraction] 97 % Jamilah Memo PA-C Work Phone: [facility] 01-21-2023 12:56-0400 Systolic blood pressure 122 mm[Hg] Jamilah Memo PA-C Work Phone: [facility] 01-15-2023 08:17-0400 Body weight 126.55 kg Seda Rajguru 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 Work Phone: [facility] 01-15-2023 08:17-0400 Diastolic blood pressure 58 mm[Hg] Seda Rajguru 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 Work Phone: [facility] 01-15-2023 08:17-0400 Heart rate 76 /min Seda Rajguru 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 Work Phone: [facility] 01-15-2023 08:17-0400 Systolic blood pressure 132 mm[Hg] Seda Rajguru 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 Work Phone: [facility] 07-20-2022 15:15-0400 Body height 156.2 cm Pulm Wstr Work Phone: [facility] 07-20-2022 15:15-0400 Body weight 119.75 kg Pulm Wstr Work Phone: [facility] 07-19-2022 14:43-0400 Body weight 119.75 kg Talia Dias MD Work Phone: [facility] 07-19-2022 14:43-0400 Diastolic blood pressure 84 mm[Hg] Talia Dias MD Work Phone: [facility] 07-19-2022 14:43-0400 Heart rate 75 /min Talia Dias MD Work Phone: [facility] 07-19-2022 14:43-0400 Respiratory rate 18 /min Talia Dias MD Work Phone: [facility] 07-19-2022 14:43-0400 SaO2% (BldA) [Mass fraction] 97 % Talia Dias MD Work Phone: [facility] 07-19-2022 14:43-0400 Systolic blood pressure 138 mm[Hg] Talia Dias MD Work Phone: [facility] 06-01-2022 10:40-0500 Body weight 118.84 kg Joanna Older 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 Work Phone: [facility] 06-01-2022 10:40-0500 Diastolic blood pressure 60 mm[Hg] Joanna Older 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 Work Phone: [facility] 06-01-2022 10:40-0500 Heart rate 68 /min Joanna Older 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 Work Phone: [facility] 06-01-2022 10:40-0500 Respiratory rate 20 /min Joanna Older 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 Work Phone: [facility] 06-01-2022 10:40-0500 SaO2% (BldA) [Mass fraction] 98 % Joanna Older 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 Work Phone: [facility] 06-01-2022 10:40-0500 Systolic blood pressure 114 mm[Hg] Joanna Older 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 Work Phone: [facility] 04-11-2022 16:17-0500 Body weight 118.84 kg Jericho Tinoco MD Work Phone: [facility] 04-11-2022 16:17-0500 Diastolic blood pressure 64 mm[Hg] Jericho Tinoco MD Work Phone: [facility] 04-11-2022 16:17-0500 Heart rate 69 /min Jericho Tinoco MD Work Phone: [facility] 04-11-2022 16:17-0500 Respiratory rate 20 /min Jericho Tinoco MD Work Phone: [facility] 04-11-2022 16:17-0500 SaO2% (BldA) [Mass fraction] 98 % Jericho Tinoco MD Work Phone: [facility] 04-11-2022 16:17-0500 Systolic blood pressure 94 mm[Hg] Jericho Tinoco MD Work Phone: [facility] 03-08-2022 15:35-0400 Body temperature 98.42 [degF] ROBIN RIGGS MD [facility] 03-08-2022 15:35-0400 Diastolic blood pressure 82 mm[Hg] ROBIN RIGGS MD [facility] 03-08-2022 15:35-0400 Heart rate 82 /min ROBIN RIGGS MD [facility] 03-08-2022 15:35-0400 Respiratory rate 16 /min ROBIN RIGGS MD [facility] 03-08-2022 15:35-0400 Systolic blood pressure 154 mm[Hg] ROBIN RIGGS MD [facility] 03-01-2022 10:50-0400 Body weight 120.2 kg Jericho Tinoco MD Work Phone: [facility] 03-01-2022 10:50-0400 Diastolic blood pressure 76 mm[Hg] Jericho Tinoco MD Work Phone: [facility] 03-01-2022 10:50-0400 Heart rate 69 /min Jericho Tinoco MD Work Phone: [facility] 03-01-2022 10:50-0400 Respiratory rate 14 /min Jericho Tinoco MD Work Phone: [facility] 03-01-2022 10:50-0400 SaO2% (BldA) [Mass fraction] 98 % Jericho Tinoco MD Work Phone: [facility] 03-01-2022 10:50-0400 Systolic blood pressure 124 mm[Hg] Jericho Tinoco MD Work Phone: [facility] 01-18-2022 13:02-0400 Body height 156.2 cm Jamilah Memo PA-C Work Phone: [facility] 01-18-2022 13:02-0400 Body weight 121.56 kg Jamilah Memo PA-C Work Phone: [facility] 01-18-2022 13:02-0400 Diastolic blood pressure 68 mm[Hg] Jamilah Memo PA-C Work Phone: [facility] 01-18-2022 13:02-0400 Heart rate 62 /min Jamilah Memo PA-C Work Phone: [facility] 01-18-2022 13:02-0400 Respiratory rate 14 /min Jamilah Memo PA-C Work Phone: [facility] 01-18-2022 13:02-0400 SaO2% (BldA) [Mass fraction] 96 % Jamilah Memo PA-C Work Phone: [facility] 01-18-2022 13:02-0400 Systolic blood pressure 122 mm[Hg] Jamilah Memo PA-C Work Phone: [facility] 01-18-2022 12:46-0400 Body height 156.2 cm Respiratory Wstr Work Phone: [facility] 01-18-2022 12:46-0400 Body weight 121.97 kg Respiratory Wstr Work Phone: [facility] 01-18-2022 12:46-0400 Heart rate 62 /min Respiratory Wstr Work Phone: [facility] 01-18-2022 12:46-0400 Respiratory rate 14 /min Respiratory Wstr Work Phone: [facility] 01-18-2022 12:46-0400 SaO2% (BldA) [Mass fraction] 96 % Respiratory Wstr Work Phone: [facility] Encounters Encounter Date Encounter Type Care Provider Facility Start: 05-14-2023 End: 05-15-2023 ambulatory JERICHO TINOCO Facility:[facility] Start: 05-14-2023 End: 05-14-2023 Patient encounter procedure Seda Quiroz APRN.MANAGER OF HUMAN RESOURCES Work Phone: Psychiatry Procedures Date Procedure Procedure Detail Performing Clinician Start: 07-20-2022 Spmtry w/vc expirato ry jewel w/wo mxml vol vntj Talia Dias MD Work Phone: Start: 01-18-2022 Nitric oxide gas determination Jamilah Galvan PA-C Work Phone: Start: 01-18-2022 Spmtry w/vc expirato ry jewel w/wo mxml vol vntj Jamilah Galvan PA-C Work Phone: Start: 12-02-2021 Adult depression scr eening assessment Jericho Tinoco MD Work Phone: Start: 11-17-2020 Mammography Jamilah BARTON-C Work Phone: Start: 10-25-2020 Adult depression scr eening assessment Jamilah Galvan PA-C Work Phone: Start: 09-02-2017 Colonoscopy Jamilah hughes PA-C Work Phone: Start: 09-02-2017 Colonoscopy ROBIN LYONS MD Arthroscopic knee operation ROBIN RIGGS MD Plan of Treatment Date Care Activity Detail Author Start: 09-03-2027 Colonoscopy COLONOSCOPY [facility] Start: 09-03-2027 COLORECTAL CANCER SCREENING COLORECTAL CANCER SCREENING [facility] Start: 09-03-2027 Screening for malign ant neoplasm of colon [facility] Start: 08-24-2025 Urine microalbumin profile [facility] Start: 04-12-2024 Glaucoma screening Dilated Retinal E xam [facility] Start: 03-15-2024 Mammography Mammogram Screening [facility] Start: 03-15-2024 Screening for malign ant neoplasm of breast Mammogram Screening [facility] Start: 03-06-2024 Annual PCP Team Jack Strip Assembler regan Disease Visit Annual PCP Team Chronic Disease Visit [facility] Start: 03-06-2024 Creatinine measurement Serum Creatin ine [facility] Start: 03-06-2024 Hepatitis B screening Urine Al bumin:Creatinine Ratio [facility] Start: 03-06-2024 Serum Creatinine Serum Creatinine Cl [facility] Start: 11-03-2023 Influenza vaccination Influenza Vacc ine (#1) [facility] Immunizations Immunization Date Immunization Notes Care Provider Fa nestor 04-07-2019 influenza, injectabl e, quadrivalent, contains preservative Jamilah Memo PA-C Work Phone: [facility] 04-07-2019 influenza virus vacc ine, unspecified formulation Seda Quiroz APRN.CNP Work Phone: [facility] 02-04-2018 influenza, high dose seasonal, preservative-free Jamilah Memo PA-C Work Phone: [facility] Work Phone: 02-20-2017 influenza, injectabl e, quadrivalent, contains preservative Jamilah Memo PA-C Work Phone: [facility] 03-02-2016 influenza, injectabl e, quadrivalent, contains preservative Jamilah Memo PA-C Work Phone: [facility] 03-02-2016 pneumococcal polysaccharide vaccine, 23 valent Jamilah Memo PA-C Work Phone: [facility] 08-25-2015 tetanus toxoid, redu wayne diphtheria toxoid, and acellular pertussis vaccine, adsorbed Jamilah Galvan PA-C Work Phone: [facility] 05-26-2015 influenza, injectabl e, quadrivalent, contains preservative Jamilah Galvan PA-C Work Phone: [facility] Payers Date Payer Category Payer Medicaid [facility] MEDICAID [employer]C ARE [facility] MEDICAID [id number] 2015-Present [phone] [address] [place] [address] Medicaid [id number] 2015 Medicare [id number] 2015 Medicare [facility] MEDICARE MYC ARE [facility] MEDICARE [id number] 2015-Present [phone] [address] [place] [address] Medicare [id number] 2015 Unknown [id number] 1966 Unknown [id number] 1966 Unknown [id number] Social History Date Type Detail Facility Start: 1981 End: 07-19-2022 Tobacco smoking status NHIS Smokes tobacco daily [facility] Work Phone: Start: 1981 History of tobacco use Cigarette Smo ker [facility] Work Phone: Start: 12-16-2019 End: 09-20-2022 Cigarettes smoked current (pack per day) - Reported 1 [facility] Start: 12-16-2019 End: 07-19-2022 Tobacco use and exposure Smokeless tobacco non-user [facility] Work Phone: Start: 07-17-2021 End: 06-01-2022 Alcohol intake Current drinker of alcohol (finding) [facility] Start: 10-25-2020 History SDOH Alcohol Comment occasional, rarely [facility] Start: 02-22-2020 End: 08-27-2022 History SDOH Financial 5 [facility] Start: 02-22-2020 End: 08-27-2022 History SDOH Food Worry 1 [facility] Start: 02-22-2020 End: 08-27-2022 History SDOH Transport Med 2 [place] [facility] Start: 1965 Sex Assigned At Not on file C [facility] Start: 07-07-2021 End: 01-31-2022 Exposure to SARS-CoV-2 (event) Not sure [facility] Start: 12-02-2021 History SDOH Alcohol Comment rare 1 drink [facility] Start: 12-02-2021 End: 08-27-2022 History SDOH Physical Activity DPW 0 [facility] Start: 12-02-2021 End: 01-18-2022 Tobacco Comment from age 16 [facility] Start: 03-05-2019 Tobacco smoking status Heavy t obacco smoker (finding) [facility] Sex Assigned At Sex [facility] Start: 06-22-2022 End: 04-02-2023 Alcohol intake Ex-drinker (finding) [facility] Start: 07-19-2022 Tobacco Comment from age 16. O ne PPD in past. Cut to 1/2 PPD in April [facility] Start: 08-27-2022 History SDOH Social Connections Phone 3 [facility] Start: 08-27-2022 History SDOH Social Connections Living 8 [facility] Start: 08-27-2022 End: 09-20-2022 Social connection and isolation panel [facility] Do you belong to any clubs or organizations such as alevism groups, unions, fraternal or athletic groups, or school groups? No [facility] Are you now , , , , never or living with a partner? Living with partner [facility] How often to you hav e a drink containing alcohol? Monthly or less [facility] How many standard dr inks containing alcohol do you have on a typical day? 1 or 2 [facility] How often do you hav e 6 or more drinks on 1 occasion? Never [facility] How hard is it for y ou to pay for the very basics like food, housing, medical care, and heating Not hard at all [facility] Do you feel stress - tense, restless, nervous, or anxious, or unable to sleep at night because your mind is troubled all the time - these days [OSQ] To some extent [facility] (I/We) worried wheth er (my/our) food would run out before (I/we) got money to buy more. Never true [facility] Medical Equipment Procedure Code Equipment Code Equipment Origin al Text Equipment Identifier Dates Spacer Avs 4d 8m m Spinal Bone Plug - [id number] Start: 05-30-2019 Rapides Drill Bit 12mm X 23mm [id number] Start: 05-30-2019 Self Starting Variable Screw Size 4.0mm X 14mm [id number] Start: 05-30-2019 Rapides Cervical P late 1-Level 22mm [id number] Start: 05-30-2019 Functional Status Date Assessment Result Facility 03-08-2022 Functional Status Standard Safet y ID band on, Call device within reach, Bed in low position, Wheels locked, Upper/Half-Length side-rails up, Bedside Cart Locked, Safety level maintained [facility] Mental Status Date Assessment Result Facility 03-08-2022 Mental Status Orientation Oriented x 4 [facility] Clinical Notes 01-25-2020 to 05-14-2023 Seda Quiroz APRN.CNP - 05/14/2023 9:02 AM Seda Quigley APRN.CNP - 04/02/2023 2:10 PM ESTTelephone Encounter - Michelle Sanchez LPN - 03/19/2023 2:57 PM ESTPatient Instructions Note Date & Type Note Facility 05-14-2023 Note HNO ID: [id number] Author: SEDA QUIROZ APRN.CNP Service: ? Author Type: Nurse Practitioner Type: Progress Notes Filed: 05/19/2023 22:59 Note Text: FOLLOW UP - PSYCHIATRIC PROGRESS NOTE Visit Type: In person Reason for Visit: Outpatient follow-up and safety monitoring of previously prescribed psychiatric medication, psychotherapy or other treatment CC: Follow up after increase in Ingrezza and Lexapro HPI: Treatment plan from last visit on 04/02/2023: 1. Increase Ingrezza to address tardive dyskinesia symptoms. 2. Discontinue Clonazepam due to lack of efficacy. Trial Xanax instead to help with panic symptoms only as needed. 3. Increase Lexapro dose to address anxiety and panic symptoms. 4. Continue Lamictal and Ambien at the same dose. Today Juan shares that her panic attacks have improved. Panic attacks began 10 years ago. Experienced a really hard time sitting in the car. [place] that the car was caving in on her. This made it hard for her to travel in a car. In the past year her panic symptoms worsened if she has to go to the store. Notices an increase in anxiety when she walks a lot and then has difficulty breathing. Experienced a lot more panic attacks during the holidays. Unsure why they were more stressful this year. Used Xanax more during the holidays. Still has 4 tablets left from her last refill. Denies any side effects such as dizziness or falls. Going to work with Tracee Lozoya at the counseling center for counseling. Hoping that helps. Has an appointment for counseling today. Will be working with her every week. Cataract surgeries are coming up on the May and Jun 06 for the other eye. She has a lot of anxiety related to this. Is only able to sleep well if she takes the Ambien. The increase in Ingrezza has helped her Tardive Dyskinesia. She is very rarely bitting her tongue and cheek now. I feel better going in the public too . Tolerated the increase in Lexapro. Feels that it has helped her anxiety overall. Takes Elavil to help with her headaches. Risks and benefits of the medication, including any black box warnings, were discussed with the patient. Interval Progress: Slightly improved PATIENT DATA: Generalized Anxiety Disorder Scale (ELKIN-7) ELKIN - 7 SCORES 01/15/2023 04/02/2023 05/14/2023 ELKIN-7 Score 15 16 3 (0-4) minimal anxiety, (5-9) mild anxiety, (10-14) moderate anxiety, (15-21) severe anxiety Patient Health Questionnaire (PHQ-9) PHQ-9 09/13/2022 01/15/2023 05/14/2023 Score 3 6 6 (0-4) minimal depression, (5-9) mild depression, (10-14) moderate depression, (15-19) moderately severe depression, (20-27) severe depression PROMIS Global Health PROMIS Global Health - (T-Scores - the mean of general population = 50. Five points is a clinically meaningful difference.) 06/16/2022 09/13/2022 01/15/2023 Physical T-Score 34.9 39.8 34.9 Mental T-Score 33.8 43.5 36.3 PAST MEDICAL HISTORY Diagnosis Date Acute myocardial infarction of lateral wall (HCC) 04/04/2022 [facility] Cerebellar mass 1995 mass versus infarct Cervical cord compression with myelopathy (HCC) 05/28/2019 Depression 04/11/2015 Disc degeneration, lumbar 2000 Gastroesophageal reflux disease without esophagitis 04/11/2015 Helicobacter pylori gastritis 01/24/2021 History of psoriatic arthritis Impaired fasting glucose 05/12/2015 Irritable bowel syndrome with diarrhea 12/02/2021 Low back pain 04/11/2015 Mixed hyperlipidemia 05/26/2015 Obesity due to excess calories 05/26/2015 JOSE on CPAP 05/26/2015 Pain in joint, multiple sites 05/26/2015 Panic anxiety syndrome 04/11/2015 Postlaminectomy syndrome 12/05/2015 Radiculopathy, lumbar region 12/05/2015 Stage 3b chronic kidney disease (HCC) 12/04/2021 Type 2 diabetes mellitus without complication (FORM[facility]LY [facility]) 03/02/2016 PAST SURGICAL HISTORY Procedure Laterality Date ANTERIOR DISKECTOMY, CERVICAL, EACH ADDL 05/30/2019 ACDF C5-6 - anterior cervical discectomy and arthrodesis ARTHRP KNE CONDYLEANDPLATU MEDIALANDLAT COMPARTMENTS Left 01/14/2018 COLONOSCOPY AND BIOPSY 09/02/2017 Dr. cooney [facility] 01/23/2021 KNEE ARTHROSCOP MENISCUS REPAIR MED/LAT Left 06/22/2016 partial medial meniscectomy LUMBAR OR CAUDAL EPIDURAL INJECTION 01/2017 multiple since 2014. NEUROPLASTY AND/TRANSPOS MEDIAN NRV CARPAL TUNNE Left 08/30/2009 [facility] PAST SURGICAL HISTORY OF 05/30/2019 C5-[address] Grace Long PT ED HEART AND VASCULAR Cardiac Stent [facility] 11/30/22 S PROBE PERC LUMBAR DISCECTOMY 04/2000 [facility] Current Outpatient Medications Medication Sig Dispense Refill valbenazine (INGREZZA) 80 mg capsule Take 1 capsule by mouth once daily. 90 capsule 0 lamoTRIgine (LAMICTAL) 200 mg tablet Take 0.5 tablets by mouth every morning AND 1 tablet every evening. 45 tablet 1 zolpidem (AMBIEN) 10 mg Take 1 tablet by mouth at bedtime as needed for up to 120 days. 30 tablet 3 escitalopram o (more content not included)... [facility] 05-14-2023 History of Presen t illness Narrative FOLLOW UP - PSYCHIATRIC PROGRESS NOTE Visit Type: In person Reason for Visit: Outpatient follow-up and safety monitoring of previously prescribed psychiatric medication, psychotherapy or other treatment CC: Follow up after increase in Ingrezza and Lexapro HPI: Treatment plan from last visit on 04/02/2023: 1. Increase Ingrezza to address tardive dyskinesia symptoms. 2. Discontinue Clonazepam due to lack of efficacy. Trial Xanax instead to help with panic symptoms only as needed. 3. Increase Lexapro dose to address anxiety and panic symptoms. 4. Continue Lamictal and Ambien at the same dose. Today Juan shares that her panic attacks have improved. Panic attacks began 10 years ago. Experienced a really hard time sitting in the car. [place] that the car was caving in on her. This made it hard for her to travel in a car. In the past year her panic symptoms worsened if she has to go to the store. Notices an increase in anxiety when she walks a lot and then has difficulty breathing. Experienced a lot more panic attacks during the holidays. Unsure why they were more stressful this year. Used Xanax more during the holidays. Still has 4 tablets left from her last refill. Denies any side effects such as dizziness or falls. Going to work with Tracee Lozoya at the counseling center for counseling. Hoping that helps. Has an appointment for counseling today. Will be working with her every week. Cataract surgeries are coming up on the May and Jun 06 for the other eye. She has a lot of anxiety related to this. Is only able to sleep well if she takes the Ambien. The increase in Ingrezza has helped her Tardive Dyskinesia. She is very rarely bitting her tongue and cheek now. I feel better going in the public too . Tolerated the increase in Lexapro. Feels that it has helped her anxiety overall. Takes Elavil to help with her headaches. Risks and benefits of the medication, including any black box warnings, were discussed with the patient. Interval Progress: Slightly improved PATIENT DATA: Generalized Anxiety Disorder Scale (ELKIN-7) ELKIN - 7 SCORES 01/15/2023 04/02/2023 05/14/2023 ELKIN-7 Score 15 16 3 (0-4) minimal anxiety, (5-9) mild anxiety, (10-14) moderate anxiety, (15-21) severe anxiety Patient Health Questionnaire (PHQ-9) PHQ-9 09/13/2022 01/15/2023 05/14/2023 Score 3 6 6 (0-4) minimal depression, (5-9) mild depression, (10-14) moderate depression, (15-19) moderately severe depression, (20-27) severe depression PROMIS Global Health PROMIS Global Health - (T-Scores - the mean of general population = 50. Five points is a clinically meaningful difference.) 06/16/2022 09/13/2022 01/15/2023 Physical T-Score 34.9 39.8 34.9 Mental T-Score 33.8 43.5 36.3 PAST MEDICAL HISTORY Diagnosis Date Acute myocardial infarction of lateral wall (HCC) 04/04/2022 [facility] Cerebellar mass 1995 mass versus infarct Cervical cord compression with myelopathy (HCC) 05/28/2019 Depression 04/11/2015 Disc degeneration, lumbar 2000 Gastroesophageal reflux disease without esophagitis 04/11/2015 Helicobacter pylori gastritis 01/24/2021 History of psoriatic arthritis Impaired fasting glucose 05/12/2015 Irritable bowel syndrome with diarrhea 12/02/2021 Low back pain 04/11/2015 Mixed hyperlipidemia 05/26/2015 Obesity due to excess calories 05/26/2015 JOSE on CPAP 05/26/2015 Pain in joint, multiple sites 05/26/2015 Panic anxiety syndrome 04/11/2015 Postlaminectomy syndrome 12/05/2015 Radiculopathy, lumbar region 12/05/2015 Stage 3b chronic kidney disease (HCC) 12/04/2021 Type 2 diabetes mellitus without complication ([facility]) 03/02/2016 PAST SURGICAL HISTORY Procedure Laterality Date ANTERIOR DISKECTOMY, CERVICAL, EACH ADDL 05/30/2019 ACDF C5-6 - anterior cervical discectomy and arthrodesis ARTHRP KNE CONDYLE&PLATU MEDIAL&LAT COMPARTMENTS Left 01/14/2018 COLONOSCOPY AND BIOPSY 09/02/2017 Dr. ivet HAGER 01/23/2021 KNEE ARTHROSCOP MENISCUS REPAIR MED/LAT Left 06/22/2016 partial medial meniscectomy LUMBAR OR CAUDAL EPIDURAL INJECTION 01/2017 multiple since 2014. NEUROPLASTY &/TRANSPOS MEDIAN NRV CARPAL TUNNE Left 08/30/2009 [facility] PAST SURGICAL HISTORY OF 05/30/2019 C5-[address] Grace Long PT ED HEART AND VASCULAR Cardiac Stent [facility] 04/04/22 S PROBE PERC LUMBAR DISCECTOMY 04/2000 [facility] Current Outpatient Medications Medication Sig Dispense Refill valbenazine (INGREZZA) 80 mg capsule Take 1 capsule by mouth once daily. 90 capsule 0 lamoTRIgine (LAMICTAL) 200 mg tablet Take 0.5 tablets by mouth every morning AND 1 tablet every evening. 45 tablet 1 zolpidem (AMBIEN) 10 mg Take 1 tablet by mouth at bedtime as needed for up to 120 days. 30 tablet 3 escitalopram oxalate (LEXAPRO) 20 mg tablet Take 1.5 tablets by mouth once daily. 45 tablet 1 amitriptyline (ELAVIL) 75 mg tablet Take 1 tablet by mouth daily at bedtime. 30 tablet 5 predniSONE (DELTASONE) 10 mg tablet TAKE BY MOUTH 4 TABLETS DAILY FOR 2 DAYS, THEN 3 TABLETS DAILY FOR 2 DAYS, THEN 2 TABLETS DAILY FOR 2 DAYS, THEN 1 TABLET DAILY FOR 2 DAYS. 20 tablet 0 methotrexate 2.5 mg tablet Take 6 tablets by mouth one time a week. 24 tablet 2 fluticasone-vilanterol (BREO ELLIPTA) 200-25 mcg/dose inhaler Inhale 1 Inhalation as instructed once daily. 1 Each 11 albuterol HFA (PROVENTIL HFA, VENTOLIN HFA) 90 mcg/actuation inhaler Inhale 2 Puffs as instructed every 4 hours as needed. 18 g 11 dulaglutide (TRULICITY) 1.5 mg/0.5 mL pen injector Inject 1.5 mg subcutaneously one time a week. Inject once per week. Discard Pen After 2 mL 5 lansoprazole (PREVACID) 30 mg capsule Take 1 capsule by mouth once daily. 90 capsule 3 buprenorphine (BUTRANS) 10 mcg/hour Apply 1 Patch as directed one time a week. Per Pain Management. aspirin, enteric coated (ASPIRIN, ENTERIC COATED) 81 mg EC tablet Take 1 tablet by mouth once daily. atorvastatin (LIPITOR) 40 mg tablet Take 1 tablet by mouth daily at bedtime. For cholesterol. carvedilol (COREG) 6.25 mg tablet Take 1 tablet by mouth twice daily. losartan (COZAAR) 50 mg tablet Take 1 tablet by mouth once daily. nitroglycerin sublingual (NITROQUICK) 0.4 mg SL tablet Dissolve 1 tablet under the tongue every 5 minutes as needed for chest pain. folic acid 1 mg tablet Take 1 mg by mouth once daily. fluticasone (FLONASE) 50 mcg/actuation nasal spray Use 2 Sprays in each nostril once daily. 3 Bottle 1 CPAP Mask (per patient preference) optional chin strap (if indicated) , filters, tubing, humidifier and lifetime supplies. 1 Device 11 LYRICA 75 mg capsule Take 1 capsule by mouth twice daily. 0 No current facility-administered medications for this visit. ROS: See HPI PFSH: See HPI VITAL SIGNS: 05/14/23 0856 BP: 122/58 Pulse: 80 Weight: 128.2 kg (282 lb 9.6 oz) MENTAL STATUS EXAM: CONSTITUTIONAL: Casually dressed ORIENTATION: Person, Place, Time and Situation MEMORY: Recent intact, Remote intact, Immediate intact CONCENTRATION: Normal MOOD: anxious AFFECT: Full and appropriate to topic SPEECH : Clear & distinct LANGUAGE : Normal ASSOCIATIONS: Intact THOUGHT PROCESS : Logical, Coherent, and Rational PROGRESSION : There was no evidence of disturbance in thought perception or progression. FUND OF KNOWLEDGE : Appropriate and Adequate SUICIDE: None HOMICIDE: None DATA REVIEWED: Psychiatric scales, Electronic medical record, and [employer] Supervisor notes DIAGNOSIS: Bipolar disorder, currently depressed, moderate Tardive dyskinesia Panic disorder with agoraphobia PTSD, chronic GAF: -60-51 Moderate symptoms or moderate difficulty in social, occupational or school functioning. TREATMENT PLAN: 1. Continue psychiatric medications at the same dose. 2. Begin weekly individual psychotherapy. 3. Utilize Xanax as needed to manage panic symptoms and worsening episodes of Tardive dyskinesia. MEDICATION CHANGES: Current medication regimen unchanged. - Reviewed Lamictal titration & risk of severe rash. Instructed to call [facility] if this occurs. PDMP report was reviewed and found to be appropriate without any signs of misuse or diversion. Follow Up: 2 months I spent a total of 36 minutes on the date of the service which included preparing to see the patient, [id number] patient care, completing clinical documentation, obtaining and/or reviewing separately obtained history, performing a medically appropriate examination, counseling and educating the patient/family/caregiver, ordering medications, tests, or procedures, communicating with other HCPs (not separately reported), independently interpreting results (not separately reported), and communicating results to the patient/family/caregiver. ADD ON PSYCHOTHERAPY CODE : No SIGNATURE: Seda Quiroz APRN.CNP PATIENT NAME: Juan Eagle DATE: May 14, 2023 TIME: 9:03 AM documented in this encounter [facility] 04-02-2023 Note HNO ID: [id number] Author: Seda Quiroz APRN.CNP Service: ? Author Type: Nurse Practitioner Type: Progress Notes Filed: 04/07/2023 11:30 PM Note Text: FOLLOW UP - PSYCHIATRIC PROGRESS NOTE Visit Type:In person Reason for Visit: Outpatient follow-up and safety monitoring of previously prescribed psychiatric medication, psychotherapy or other treatment CC: Follow up for psychiatric medication management HPI: Today Juan shares that she called to schedule an appointment with her regular therapist. She has an appointment in May. Has been struggling with shortness of breath. Saw her care management associate and was notified that her lung function was normal. 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 Had to take Nitro due to chest pain. Has an appointment scheduled with Dr. Savage She has been concerned about her anxiety. Feels that the clonazepam is no longer helping. Stopped supporting her anxiety 2 months ago. Experienced similar tachyphylaxis with Ativan in the past. She continues to report struggling with depression and ability to do things. She has a lot of anxiety going grocery shopping. She has no desire to engage with others and its hard for her to be around others. She has noticed improvement in her TD with ingrezza but continues to struggle with biting her tongue. We discussed increasing the ingrezza back to 80 mg. She denies any side effects. Risks and benefits of the medication, including any black box warnings, were discussed with the patient. Interval Progress: Same PATIENT DATA: Generalized Anxiety Disorder Scale (ELKIN-7) ELKIN - 7 SCORES 08/22/2022 01/15/2023 04/02/2023 ELKIN-7 Score 5 15 16 (0-4) minimal anxiety, (5-9) mild anxiety, (10-14) moderate anxiety, (15-21) severe anxiety Patient Health Questionnaire (PHQ-9) PHQ-9 08/22/2022 09/13/2022 01/15/2023 Score 11 3 6 (0-4) minimal depression, (5-9) mild depression, (10-14) moderate depression, (15-19) moderately severe depression, (20-27) severe depression PROMIS Global Health PROMIS Global Health - (T-Scores - the mean of general population = 50. Five points is a clinically meaningful difference.) 06/16/2022 09/13/2022 01/15/2023 Physical T-Score 34.9 39.8 34.9 Mental T-Score 33.8 43.5 36.3 PAST MEDICAL HISTORY Diagnosis Date Acute myocardial infarction of lateral wall ([facility]) 04/04/2022 [facility] Cerebellar mass 1995 mass versus infarct Cervical cord compression with myelopathy ([facility]) 05/28/2019 Depression 04/11/2015 Disc degeneration, lumbar 2000 Gastroesophageal reflux disease without esophagitis 04/11/2015 Helicobacter pylori gastritis 01/24/2021 History of psoriatic arthritis Impaired fasting glucose 05/12/2015 Irritable bowel syndrome with diarrhea 12/02/2021 Low back pain 04/11/2015 Mixed hyperlipidemia 05/26/2015 Obesity due to excess calories 05/26/2015 JOSE on CPAP 05/26/2015 Pain in joint, multiple sites 05/26/2015 Panic anxiety syndrome 04/11/2015 Postlaminectomy syndrome 12/05/2015 Radiculopathy, lumbar region 12/05/2015 Stage 3b chronic kidney disease (HCC) 12/04/2021 Type 2 diabetes mellitus without complication ([facility]) 03/02/2016 PAST SURGICAL HISTORY Procedure Laterality Date ANTERIOR DISKECTOMY, CERVICAL, EACH ADDL 05/30/2019 ACDF C5-6 - anterior cervical discectomy and arthrodesis ARTHRP KNE CONDYLEANDPLATU MEDIALANDLAT COMPARTMENTS Left 01/14/2018 COLONOSCOPY AND BIOPSY 09/02/2017 Dr. cooney EGD 01/23/2021 KNEE ARTHROSCOP MENISCUS REPAIR MED/LAT Left 06/22/2016 partial medial meniscectomy LUMBAR OR CAUDAL EPIDURAL INJECTION 01/2017 multiple since 2014. NEUROPLASTY AND/TRANSPOS MEDIAN NRV CARPAL TUNNE Left 08/30/2009 [facility] PAST SURGICAL HISTORY OF 05/30/2019 C5-[address] Grace Long PT ED HEART AND VASCULAR Cardiac Stent [facility] 04/04/22 S PROBE PERC LUMBAR DISCECTOMY 04/2000 [facility] Current Outpatient Medications Medication Sig Dispense Refill valbenazine (INGREZZA) 40 mg capsule Take 1 capsule by mouth every morning. 30 capsule 0 amitriptyline (ELAVIL) 75 mg tablet Take 1 tablet by mouth daily at bedtime. 30 tablet 5 predniSONE (DELTASONE) 10 mg tablet TAKE BY MOUTH 4 TABLETS DAILY FOR 2 DAYS, THEN 3 TABLETS DAILY FOR 2 DAYS, THEN 2 TABLETS DAILY FOR 2 DAYS, THEN 1 TABLET DAILY FOR 2 DAYS. 20 tablet 0 methotrexate 2.5 mg tablet Take 6 tablets by mouth one time a week. 24 tablet 2 fluticasone-vilanterol (BREO ELLIPTA) 200-25 mcg/dose inhaler Inhale 1 Inhalation as instructed once daily. 1 Each 11 albuterol HFA (PROVENTIL HFA, VENTOLIN HFA) 90 mcg/actuation inhaler Inhale 2 Puffs as instructed every 4 hours as needed. 18 g 11 lamoTRIgine (LAMICTAL) 200 mg tablet Take 0.5 tablets by mouth every morning AND 1 tablet every evening. 45 tablet 1 zolpidem (AMBIEN) 10 mg Take 1 tablet by mouth at bedtime as needed for up to 120 days. 30 tablet 3 escitalopram oxalate (LEXAPRO) 20 mg tablet Take 1 tablet by (more content not included)... [facility] 04-02-2023 History of Presen t illness Narrative FOLLOW UP - PSYCHIATRIC PROGRESS NOTE Visit Type:In person Reason for Visit: Outpatient follow-up and safety monitoring of previously prescribed psychiatric medication, psychotherapy or other treatment CC: Follow up for psychiatric medication management HPI: Today Juan shares that she called to schedule an appointment with her regular therapist. She has an appointment in May. Has been struggling with shortness of breath. Saw her care management associate and was notified that her lung function was normal. 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 Had to take Nitro due to chest pain. Has an appointment scheduled with Dr. Savage She has been concerned about her anxiety. Feels that the clonazepam is no longer helping. Stopped supporting her anxiety 2 months ago. Experienced similar tachyphylaxis with Ativan in the past. She continues to report struggling with depression and ability to do things. She has a lot of anxiety going grocery shopping. She has no desire to engage with others and its hard for her to be around others. She has noticed improvement in her TD with ingrezza but continues to struggle with biting her tongue. We discussed increasing the ingrezza back to 80 mg. She denies any side effects. Risks and benefits of the medication, including any black box warnings, were discussed with the patient. Interval Progress: Same PATIENT DATA: Generalized Anxiety Disorder Scale (ELKIN-7) ELKIN - 7 SCORES 08/22/2022 01/15/2023 04/02/2023 ELKIN-7 Score 5 15 16 (0-4) minimal anxiety, (5-9) mild anxiety, (10-14) moderate anxiety, (15-21) severe anxiety Patient Health Questionnaire (PHQ-9) PHQ-9 08/22/2022 09/13/2022 01/15/2023 Score 11 3 6 (0-4) minimal depression, (5-9) mild depression, (10-14) moderate depression, (15-19) moderately severe depression, (20-27) severe depression PROMIS Global Health PROMIS Global Health - (T-Scores - the mean of general population = 50. Five points is a clinically meaningful difference.) 06/16/2022 09/13/2022 01/15/2023 Physical T-Score 34.9 39.8 34.9 Mental T-Score 33.8 43.5 36.3 PAST MEDICAL HISTORY Diagnosis Date Acute myocardial infarction of lateral wall (HCC) 04/04/2022 [facility] Cerebellar mass 1995 mass versus infarct Cervical cord compression with myelopathy (HCC) 05/28/2019 Depression 04/11/2015 Disc degeneration, lumbar 2000 Gastroesophageal reflux disease without esophagitis 04/11/2015 Helicobacter pylori gastritis 01/24/2021 History of psoriatic arthritis Impaired fasting glucose 05/12/2015 Irritable bowel syndrome with diarrhea 12/02/2021 Low back pain 04/11/2015 Mixed hyperlipidemia 05/26/2015 Obesity due to excess calories 05/26/2015 JOSE on CPAP 05/26/2015 Pain in joint, multiple sites 05/26/2015 Panic anxiety syndrome 04/11/2015 Postlaminectomy syndrome 12/05/2015 Radiculopathy, lumbar region 12/05/2015 Stage 3b chronic kidney disease (HCC) 12/04/2021 Type 2 diabetes mellitus without complication (HCC) 03/02/2016 PAST SURGICAL HISTORY Procedure Laterality Date ANTERIOR DISKECTOMY, CERVICAL, EACH ADDL 05/30/2019 ACDF C5-6 - anterior cervical discectomy and arthrodesis ARTHRP KNE CONDYLE&PLATU MEDIAL&LAT COMPARTMENTS Left 01/14/2018 COLONOSCOPY AND BIOPSY 09/02/2017 Dr. ivet HAGER 01/23/2021 KNEE ARTHROSCOP MENISCUS REPAIR MED/LAT Left 06/22/2016 partial medial meniscectomy LUMBAR OR CAUDAL EPIDURAL INJECTION 01/2017 multiple since 2014. NEUROPLASTY &/TRANSPOS MEDIAN NRV CARPAL TUNNE Left 08/30/2009 [facility] PAST SURGICAL HISTORY OF 05/30/2019 C5-[address] Grace Long PT ED HEART AND VASCULAR Cardiac Stent [facility] 04/04/22 S PROBE PERC LUMBAR DISCECTOMY 04/2000 [facility] Current Outpatient Medications Medication Sig Dispense Refill valbenazine (INGREZZA) 40 mg capsule Take 1 capsule by mouth every morning. 30 capsule 0 amitriptyline (ELAVIL) 75 mg tablet Take 1 tablet by mouth daily at bedtime. 30 tablet 5 predniSONE (DELTASONE) 10 mg tablet TAKE BY MOUTH 4 TABLETS DAILY FOR 2 DAYS, THEN 3 TABLETS DAILY FOR 2 DAYS, THEN 2 TABLETS DAILY FOR 2 DAYS, THEN 1 TABLET DAILY FOR 2 DAYS. 20 tablet 0 methotrexate 2.5 mg tablet Take 6 tablets by mouth one time a week. 24 tablet 2 fluticasone-vilanterol (BREO ELLIPTA) 200-25 mcg/dose inhaler Inhale 1 Inhalation as instructed once daily. 1 Each 11 albuterol HFA (PROVENTIL HFA, VENTOLIN HFA) 90 mcg/actuation inhaler Inhale 2 Puffs as instructed every 4 hours as needed. 18 g 11 lamoTRIgine (LAMICTAL) 200 mg tablet Take 0.5 tablets by mouth every morning AND 1 tablet every evening. 45 tablet 1 zolpidem (AMBIEN) 10 mg Take 1 tablet by mouth at bedtime as needed for up to 120 days. 30 tablet 3 escitalopram oxalate (LEXAPRO) 20 mg tablet Take 1 tablet by mouth once daily. 30 tablet 3 dulaglutide (TRULICITY) 1.5 mg/0.5 mL pen injector Inject 1.5 mg subcutaneously one time a week. Inject once per week. Discard Pen After 2 mL 5 clonazePAM (KLONOPIN) 0.5 mg tablet Take 1 tablet by mouth twice daily as needed for anxiety (and TD) for up to 30 days. 60 tablet 5 lansoprazole (PREVACID) 30 mg capsule Take 1 capsule by mouth once daily. 90 capsule 3 buprenorphine (BUTRANS) 10 mcg/hour Apply 1 Patch as directed one time a week. Per Pain Management. aspirin, enteric coated (ASPIRIN, ENTERIC COATED) 81 mg EC tablet Take 1 tablet by mouth once daily. atorvastatin (LIPITOR) 40 mg tablet Take 1 tablet by mouth daily at bedtime. For cholesterol. carvedilol (COREG) 6.25 mg tablet Take 1 tablet by mouth twice daily. losartan (COZAAR) 50 mg tablet Take 1 tablet by mouth once daily. nitroglycerin sublingual (NITROQUICK) 0.4 mg SL tablet Dissolve 1 tablet under the tongue every 5 minutes as needed for chest pain. folic acid 1 mg tablet Take 1 mg by mouth once daily. fluticasone (FLONASE) 50 mcg/actuation nasal spray Use 2 Sprays in each nostril once daily. 3 Bottle 1 CPAP Mask (per patient preference) optional chin strap (if indicated) , filters, tubing, humidifier and lifetime supplies. 1 Device 11 LYRICA 75 mg capsule Take 1 capsule by mouth twice daily. 0 No current facility-administered medications for this visit. ROS: See HPI PFSH: See HPI VITAL SIGNS: 04/02/23 1337 BP: 138/66 Pulse: 80 Weight: 126.1 kg (278 lb) MENTAL STATUS EXAM: CONSTITUTIONAL: Casually dressed ORIENTATION: Person, Place, Time and Situation MEMORY: Recent intact, Remote intact, Immediate intact CONCENTRATION: Normal MOOD: sad, concerned AFFECT: Full and appropriate to topic SPEECH : Clear & distinct LANGUAGE : Normal ASSOCIATIONS: Intact THOUGHT PROCESS : Logical, Coherent, and Rational PROGRESSION : There was no evidence of disturbance in thought perception or progression. FUND OF KNOWLEDGE : Appropriate and Adequate SUICIDE: None HOMICIDE: None DATA REVIEWED: Psychiatric scales and Electronic medical record DIAGNOSIS: PRIMARY: Bipolar affective disorder, currently depressed, moderate Secondary : Tardive dyskinesia Other : Panic disorder with agoraphobia, PTSD GAF: -60-51 Moderate symptoms or moderate difficulty in social, occupational or school functioning. TREATMENT PLAN: 1. Increase Ingrezza to address tardive dyskinesia symptoms. 2. Discontinue Clonazepam due to lack of efficacy. Trial Xanax instead to help with panic symptoms only as needed. 3. Increase Lexapro dose to address anxiety and panic symptoms. 4. Continue Lamictal and Ambien at the same dose. MEDICATION CHANGES: Prescriptions given - Reviewed Lamictal titration & risk of severe rash. Instructed to call [facility] if this occurs. - PDMP report was reviewed and found to be appropriate without any signs of misuse or diversion. - Clonazepam changed to Alprazolam. - Lexapro increased to 30 mg. - Ingrezza dose increased to 80 mg. Follow Up: 4 weeks I spent a total of 38 minutes on the date of the service which included preparing to see the patient, [id number] patient care, completing clinical documentation, obtaining and/or reviewing separately obtained history, performing a medically appropriate examination, counseling and educating the patient/family/caregiver, ordering medications, tests, or procedures, communicating with other HCPs (not separately reported), independently interpreting results (not separately reported), and communicating results to the patient/family/caregiver. ADD ON PSYCHOTHERAPY CODE : No SIGNATURE: Seda Quiroz APRN.CNP PATIENT NAME: Juan Eagle DATE: April 02, 2023 TIME: 2:10 PM documented in this encounter [facility] 03-19-2023 Miscellaneous Notes Patient notified and voices understanding. Please notify the patient that Ingrezza was refilled. Pt calling for a refill on medication Ingrezza 40 mg taking 1 every morning. Pt is biting the side of cheek and tongue. Her jaw is also moving all over. Pt in need of above medication. Pt has an apt on 04-02-23. Please advise pt if there is a problem. FYI: Pt had ran out of medication and she has been off of it x 2 weeks and she had COVID and was not able to come in for last apt. documented in this encounter [facility] 03-15-2023 Note HNO ID: [id number] Author: Marta Mosqueda RT(R) Service: ? Author Type: Technologist Type: Progress Notes Filed: 03/15/2023 1:24 PM Note Text: Radiology Service Progress Note PATIENT NAME: Juan Eagle DATE OF SERVICE: March 15, 2023 TIME: 1:24 PM PATIENT IDENTITY VERIFICATION COMPLETED USING TWO (2) IDENTIFIERS: Name and Date of confirmed by patient verbally. FALL SCREENING: Has the patient had 2 falls in the last year or 1 fall with injury or currently using an Ambulatory Assistive Device (Walker, Cane, Wheelchair, Crutches, etc.)? No PATIENT GENDER DATA: Female. status: : No status: NO. PATIENT RELEVANT IMPLANT DATA REVIEWED: Not Applicable RADIOLOGY DEPARTMENT: Mammography PERIPHERAL IV DATA: Not applicable SIGNED BY: RT Arias(R) March 15, 2023 1:24 PM [facility] 03-11-2023 Miscellaneous Notes Patient has been identified by name and date of : Yes Patient phones for refill(s): Requested Prescriptions Pending Prescriptions Disp Refills amitriptyline (ELAVIL) 75 mg tablet 30 tablet 5 Sig: Take 1 tablet by mouth daily at bedtime. Date of last office visit in primary care: 03/06/2023 Date of next office visit in primary care: 06/10/2023 Last 2 Encounter Wt Readings: Date: Wt: 03/06/2023 127.9 kg (281 lb 14.4 oz) 01/21/2023 124.3 kg (274 lb) Previous labs/tests for medication: Not applicable Please advise. Thank you. Gricelda Duckworth LPN. documented in this encounter [facility] 03-07-2023 Note HNO ID: [id number] Author: Aron Navarro Service: ? Author Type: Physician Type: Progress Notes Filed: 03/08/2023 10:31 PM Note Text: Last saw pcp: 03/06/23 Subjective: Patient presents to clinic c/o painful toenails. They state that the nails are especially painful with shoe gear and pressure. Patient states that nails 1-5 b/l are painful. Patient admits to being diabetic. No other pedal complaints at this time. Patient states no change in medications or medical history since last visit. Objective: Patient presents to clinic ambulating in diabetic shoes Vasc: DP and PT pulses are palpable bilateral. CFT is less than 5 seconds bilateral. Skin temperature is warm to cool proximal to distal bilateral. There is mild edema or varicosities noted. Neuro: Protective sensation is intact to the foot and toes when tested with the 5.07 SWM bilateral. Vibratory sensation is decreased at the hallux IPJ bilateral. The hallux is downgoing bilateral. Derm: Nails 1-5 b/l are painful, discolored-yellow, thick, crumbly, dystrophic and with subungal debris. Skin is of normal turgor, texture and hair growth is present bilateral. There are callus to b/l hallux. No ulcerations, scars, verruca or other lesions noted. Ortho: Muscle strength is 5/5 for all pedal groups tested. Ankle joint DF is with the knee extended with no pain or crepitus noted. 1st MPJ ROM is decreased bilateral. Assessment: (E08.41) Diabetic mononeuropathy associated with diabetes mellitus due to underlying condition (HCC) (primary encounter diagnosis) (L84) Callus of foot (L60.0) Ingrowing toenail (B35.1) Onychomycosis (M79.675) Pain in toe of left foot (M79.674) Pain in toe of right foot Plan: Patient was seen and evaluated. Nails 1-5 bilateral were debrided in length and thickness. Discussed ingrowing toenail. discussed partial vs total nail matrixectomy of hallux. Patient may consider in future. Callus reduced to b/l hallux with dremmel. Continue with diabetic shoes. Patient was instructed on the continued importance of diabetic foot care along with proper diet and keeping their blood sugar under control to prevent complications. Patient to avoid barefoot walking and to continue with diabetic shoes. Patient is to RTC in 3-4 months. Aron Navarro DPM [facility] 03-07-2023 Note HNO ID: [id number] Author: Pepper Estrada LPN Service: ? Author Type: LICENSED NURSE Type: Progress Notes Filed: 03/08/2023 10:31 PM Note Text: AMB ROOMING INTAKE FLOWSHEET DATA Patient presents with: Left Foot - Established Patient, Diabetic Foot Care Right Foot - Established Patient, Diabetic Foot Care Pepper Estrada LPN [facility] 03-06-2023 Note HNO ID: [id number] Author: Jericho Tinoco MD Service: ? Author Type: Physician Type: Progress Notes Filed: 03/06/2023 12:34 PM Note Text: This note was created using [employer]. Subjective Juan Eagle is a 58 year old female. She's been dealing with right wrist pain for about 2 months, with no injury. She reported taking up to 12 ibuprofen per day. Pain was worse with movement. Bracing helped some. X rays showed no acute findings. Her joints have been hurting more in general. 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 radiology resident in [place], so had been off Humira for more than a year, and ran out of methotrexate several months ago. Review of Systems Constitutional: Negative for chills, fatigue and fever. Respiratory: Negative for cough and shortness of breath. Cardiovascular: Negative for chest pain, palpitations and leg swelling. Gastrointestinal: Negative for abdominal pain, blood in stool, nausea and vomiting. Musculoskeletal: Positive for arthralgias. ACTIVE PROBLEM LIST Panic Disorder With Agoraphobia Type 2 Diabetes Mellitus With Stage 3a Chronic Kidney Disease (Hcc) Mixed Hyperlipidemia Jose On Cpap Radiculopathy, Lumbar Region Postlaminectomy Syndrome Ddd (Degenerative Disc Disease), Lumbar Edema Class 3 Severe Obesity With Body Mass Index (Bmi) of 50.0 to 59.9 in Adult ([facility]) Persistent Headaches S/P Cervical Spinal Fusion Tobacco Use Disorder Moderate Persistent Asthma Without Complication Psoriatic Arthritis ([facility]) Irritable Bowel Syndrome With Diarrhea Stage 3a Chronic Kidney Disease ([facility]) Coronary Artery Disease Involving [place] Coronary Artery of [place] Heart Without Angina Pectoris St Elevation Myocardial Infarction Involving Left Circumflex Coronary Artery ([facility]) Ischemic Cardiomyopathy Encounter for Long-Term (Current) Use of Medications Bipolar Disorder ([facility]) Ptsd (Post-Traumatic Stress Disorder) Dyskinesia, Tardive Current Outpatient Medications Medication Sig fluticasone-vilanterol (BREO ELLIPTA) 200-25 mcg/dose inhaler Inhale 1 Inhalation as instructed once daily. albuterol HFA (PROVENTIL HFA, VENTOLIN HFA) 90 mcg/actuation inhaler Inhale 2 Puffs as instructed every 4 hours as needed. lamoTRIgine (LAMICTAL) 200 mg tablet Take 0.5 tablets by mouth every morning AND 1 tablet every evening. zolpidem (AMBIEN) 10 mg Take 1 tablet by mouth at bedtime as needed for up to 120 days. escitalopram oxalate (LEXAPRO) 20 mg tablet Take 1 tablet by mouth once daily. dulaglutide (TRULICITY) 1.5 mg/0.5 mL pen injector Inject 1.5 mg subcutaneously one time a week. Inject once per week. Discard Pen After amitriptyline (ELAVIL) 75 mg tablet Take 1 tablet by mouth daily at bedtime. clonazePAM (KLONOPIN) 0.5 mg tablet Take 1 tablet by mouth twice daily as needed for anxiety (and TD) for up to 30 days. lansoprazole (PREVACID) 30 mg capsule Take 1 capsule by mouth once daily. buprenorphine (BUTRANS) 10 mcg/hour Apply 1 Patch as directed one time a week. Per Pain Management. aspirin, enteric coated (ASPIRIN, ENTERIC COATED) 81 mg EC tablet Take 1 tablet by mouth once daily. atorvastatin (LIPITOR) 40 mg tablet Take 1 tablet by mouth daily at bedtime. For cholesterol. carvedilol (COREG) 6.25 mg tablet Take 1 tablet by mouth twice daily. losartan (COZAAR) 50 mg tablet Take 1 tablet by mouth once daily. nitroglycerin sublingual (NITROQUICK) 0.4 mg SL tablet Dissolve 1 tablet under the tongue every 5 minutes as needed for chest pain. folic acid 1 mg tablet Take 1 mg by mouth once daily. fluticasone (FLONASE) 50 mcg/actuation nasal spray Use 2 Sprays in each nostril once daily. CPAP Mask (per patient preference) optional chin strap (if indicated) , filters, tubing, humidifier and lifetime supplies. LYRICA 75 mg capsule Take 1 capsule by mouth twice daily. predniSONE (DELTASONE) 10 mg tablet TAKE BY MOUTH 4 TABLETS DAILY FOR 2 DAYS, THEN 3 TABLETS DAILY FOR 2 DAYS, THEN 2 TABLETS DAILY FOR 2 DAYS, THEN 1 TABLET DAILY FOR 2 DAYS. methotrexate 2.5 mg tablet Take 6 tablets by mouth one time a week. INGREZZA 40 mg capsule take 1 capsule by mouth every morning (Patient not taking: Reported on 03/06/2023) No current facility-administered medications for this visit. Objective BP 118/60 (BP Site: Left Arm, BP Position: Sitting, BP Cuff Size: Large Adult) Pulse 64 Resp 20 Wt 127.9 kg (281 lb 14.4 oz) BMI 52.40 kg/m? Physical Exam Constitutional: General: She is not in acute distress. Appearance: She is obese. She is not ill-appearing or diaphoretic. Pulmonary: Effort: Pulmonary effort is normal. No respiratory distress. Musculoskeletal: Right forearm: No deformity or tenderness. Right wrist: Deformity and tenderness present. No crepitus. Decreased range of motion. Right hand: Swelling present. No tenderness. Right lower leg: No edema. Left lower leg: No edema. Neurological: Mental Status: She is aler (more content not included)... [facility] 03-06-2023 History of Presen t illness Narrative This note was created using [employer]. Subjective Juan Eagle is a 58 year old female. She's been dealing with right wrist pain for about 2 months, with no injury. She reported taking up to 12 ibuprofen per day. Pain was worse with movement. Bracing helped some. X rays showed no acute findings. Her joints have been hurting more in general. 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 radiology resident in [place], so had been off Humira for more than a year, and ran out of methotrexate several months ago. Review of Systems Constitutional: Negative for chills, fatigue and fever. Respiratory: Negative for cough and shortness of breath. Cardiovascular: Negative for chest pain, palpitations and leg swelling. Gastrointestinal: Negative for abdominal pain, blood in stool, nausea and vomiting. Musculoskeletal: Positive for arthralgias. ACTIVE PROBLEM LIST Panic Disorder With Agoraphobia Type 2 Diabetes Mellitus With Stage 3a Chronic Kidney Disease ([facility]) Mixed Hyperlipidemia Jose On Cpap Radiculopathy, Lumbar Region Postlaminectomy Syndrome Ddd (Degenerative Disc Disease), Lumbar Edema Class 3 Severe Obesity With Body Mass Index (Bmi) of 50.0 to 59.9 in Adult ([facility]) Persistent Headaches S/P Cervical Spinal Fusion Tobacco Use Disorder Moderate Persistent Asthma Without Complication Psoriatic Arthritis ([facility]) Irritable Bowel Syndrome With Diarrhea Stage 3a Chronic Kidney Disease ([facility]) Coronary Artery Disease Involving [place] Coronary Artery of [place] Heart Without Angina Pectoris St Elevation Myocardial Infarction Involving Left Circumflex Coronary Artery ([facility]) Ischemic Cardiomyopathy Encounter for Long-Term (Current) Use of Medications Bipolar Disorder ([facility]) Ptsd (Post-Traumatic Stress Disorder) Dyskinesia, Tardive Current Outpatient Medications Medication Sig fluticasone-vilanterol (BREO ELLIPTA) 200-25 mcg/dose inhaler Inhale 1 Inhalation as instructed once daily. albuterol HFA (PROVENTIL HFA, VENTOLIN HFA) 90 mcg/actuation inhaler Inhale 2 Puffs as instructed every 4 hours as needed. lamoTRIgine (LAMICTAL) 200 mg tablet Take 0.5 tablets by mouth every morning AND 1 tablet every evening. zolpidem (AMBIEN) 10 mg Take 1 tablet by mouth at bedtime as needed for up to 120 days. escitalopram oxalate (LEXAPRO) 20 mg tablet Take 1 tablet by mouth once daily. dulaglutide (TRULICITY) 1.5 mg/0.5 mL pen injector Inject 1.5 mg subcutaneously one time a week. Inject once per week. Discard Pen After amitriptyline (ELAVIL) 75 mg tablet Take 1 tablet by mouth daily at bedtime. clonazePAM (KLONOPIN) 0.5 mg tablet Take 1 tablet by mouth twice daily as needed for anxiety (and TD) for up to 30 days. lansoprazole (PREVACID) 30 mg capsule Take 1 capsule by mouth once daily. buprenorphine (BUTRANS) 10 mcg/hour Apply 1 Patch as directed one time a week. Per Pain Management. aspirin, enteric coated (ASPIRIN, ENTERIC COATED) 81 mg EC tablet Take 1 tablet by mouth once daily. atorvastatin (LIPITOR) 40 mg tablet Take 1 tablet by mouth daily at bedtime. For cholesterol. carvedilol (COREG) 6.25 mg tablet Take 1 tablet by mouth twice daily. losartan (COZAAR) 50 mg tablet Take 1 tablet by mouth once daily. nitroglycerin sublingual (NITROQUICK) 0.4 mg SL tablet Dissolve 1 tablet under the tongue every 5 minutes as needed for chest pain. folic acid 1 mg tablet Take 1 mg by mouth once daily. fluticasone (FLONASE) 50 mcg/actuation nasal spray Use 2 Sprays in each nostril once daily. CPAP Mask (per patient preference) optional chin strap (if indicated) , filters, tubing, humidifier and lifetime supplies. LYRICA 75 mg capsule Take 1 capsule by mouth twice daily. predniSONE (DELTASONE) 10 mg tablet TAKE BY MOUTH 4 TABLETS DAILY FOR 2 DAYS, THEN 3 TABLETS DAILY FOR 2 DAYS, THEN 2 TABLETS DAILY FOR 2 DAYS, THEN 1 TABLET DAILY FOR 2 DAYS. methotrexate 2.5 mg tablet Take 6 tablets by mouth one time a week. INGREZZA 40 mg capsule take 1 capsule by mouth every morning (Patient not taking: Reported on 03/06/2023) No current facility-administered medications for this visit. Objective BP 118/60 (BP Site: Left Arm, BP Position: Sitting, BP Cuff Size: Large Adult) Pulse 64 Resp 20 Wt 127.9 kg (281 lb 14.4 oz) BMI 52.40 kg/m Physical Exam Constitutional: General: She is not in acute distress. Appearance: She is obese. She is not ill-appearing or diaphoretic. Pulmonary: Effort: Pulmonary effort is normal. No respiratory distress. Musculoskeletal: Right forearm: No deformity or tenderness. Right wrist: Deformity and tenderness present. No crepitus. Decreased range of motion. Right hand: Swelling present. No tenderness. Right lower leg: No edema. Left lower leg: No edema. Neurological: Mental Status: She is alert. Assessment and Plan 1. Wrist pain, right - ICD9: 719.43, ICD10: M25.531 (primary diagnosis) Discussed medication dosage, usage, goals of therapy, and side effects. - PREDNISONE 10 MG TABLET 2. Psoriatic arthritis (HCC) - ICD9: 696.0, ICD10: L40.50 Restart MTX. I will fill for a few months, pending rheumatology. Refer to Dr. Mena Cool, as patient cannot travel. - METHOTREXATE SODIUM 2.5 MG TABLET - CONSULT TO RHEUM/IMMUN DISEASE 3. Type 2 diabetes mellitus with stage 3a chronic kidney disease, without long-term current use of insulin (HCC) - ICD9: 250.40, 585.3, ICD10: E11.22, N18.31 - Controlled - Continue current medications - eGFR: 57 Stable - COMP METABOLIC PANEL - HGB A1C - ALBUMIN/CREAT RATIO RND UR Jericho Tinoco MD documented in this encounter [facility] 02-20-2023 Miscellaneous Notes Message to call office. Message to call office. Message to call office. Last: 01/15/2023 Noted-follow up 4 weeks 02/12/2023-cx'd by patient Covid exposure Next: NA documented in this encounter [facility] 01-21-2023 Note HNO ID: [id number] Author: Jamilah Galvan PA-C Service: ? Author Type: Physician Concrete Vibrator Operator Type: Progress Notes Filed: 01/21/2023 1:28 PM Note Text: Patient: Juan Eagle PCP: Jericho Tinoco MD CC: follow up HPI: Juan Eagle 57 year old morbidly obese female current [id number] smoker with PMH significant for GERD, HLD, JOSE on CPAP, DM2, [place] in March 2022 coded 3 times s/p 4 stents, psoriatic arthritis and asthma. Current therapy consists of Breo with as needed Albuterol. Today, patient states SOB is improved since discontinuing Brilinta. Denies cough, sputum production, or chest pain. Occasional wheezing. Exertional dyspnea with minimal effort. Is not able to navigate stairs or walk long distances. Is also limited by back pain. No nocturnal awakenings. No increased lower extremity edema. Consistently wearing CPAP with all sleep. DME: Medical Service. Follow with [facility]. PAST MEDICAL HISTORY Diagnosis Date Acute myocardial infarction of lateral wall ([facility]) 04/04/2022 [facility] Cerebellar mass 1995 mass versus infarct Cervical cord compression with myelopathy ([facility]) 05/28/2019 Depression 04/11/2015 Disc degeneration, lumbar 2000 Gastroesophageal reflux disease without esophagitis 04/11/2015 Helicobacter pylori gastritis 01/24/2021 History of psoriatic arthritis Impaired fasting glucose 05/12/2015 Irritable bowel syndrome with diarrhea 12/02/2021 Low back pain 04/11/2015 Mixed hyperlipidemia 05/26/2015 Obesity due to excess calories 05/26/2015 JOSE on CPAP 05/26/2015 Pain in joint, multiple sites 05/26/2015 Panic anxiety syndrome 04/11/2015 Postlaminectomy syndrome 12/05/2015 Radiculopathy, lumbar region 12/05/2015 Stage 3b chronic kidney disease ([facility]) 12/04/2021 Type 2 diabetes mellitus without complication ([facility]) 03/02/2016 Allergies: Codeine Other: See Comments Comment: becomes hyper Seroquel [Quetiapin* Other: See Comments Comment:TD Vraylar [Cariprazin* Other: See Comments Comment:TD Dilaudid [Hydromorp* GI Upset Percocet [Oxycodone* GI Upset Ultram [Tramadol Hc* GI Upset lamoTRIgine (LAMICTAL) 200 mg tablet Take 0.5 tablets by mouth every morning AND 1 tablet every evening. zolpidem (AMBIEN) 10 mg Take 1 tablet by mouth at bedtime as needed for up to 120 days. escitalopram oxalate (LEXAPRO) 20 mg tablet Take 1 tablet by mouth once daily. valbenazine (INGREZZA) 40 mg capsule Take 1 capsule by mouth every morning. dulaglutide (TRULICITY) 1.5 mg/0.5 mL pen injector Inject 1.5 mg subcutaneously one time a week. Inject once per week. Discard Pen After amitriptyline (ELAVIL) 75 mg tablet Take 1 tablet by mouth daily at bedtime. clonazePAM (KLONOPIN) 0.5 mg tablet Take 1 tablet by mouth twice daily as needed for anxiety (and TD) for up to 30 days. lansoprazole (PREVACID) 30 mg capsule Take 1 capsule by mouth once daily. buprenorphine (BUTRANS) 10 mcg/hour Apply 1 Patch as directed one time a week. Per Pain Management. aspirin, enteric coated (ASPIRIN, ENTERIC COATED) 81 mg EC tablet Take 1 tablet by mouth once daily. atorvastatin (LIPITOR) 40 mg tablet Take 1 tablet by mouth daily at bedtime. For cholesterol. carvedilol (COREG) 6.25 mg tablet Take 1 tablet by mouth twice daily. losartan (COZAAR) 50 mg tablet Take 1 tablet by mouth once daily. nitroglycerin sublingual (NITROQUICK) 0.4 mg SL tablet Dissolve 1 tablet under the tongue every 5 minutes as needed for chest pain. fluticasone-vilanterol (BREO ELLIPTA) 200-25 mcg/dose inhaler Inhale 1 Inhalation as instructed once daily. Adalimumab (HUMIRA PEN) 40 mg/0.8 mL Inject 40 mg subcutaneously every other week. folic acid 1 mg tablet Take 1 mg by mouth once daily. fluticasone (FLONASE) 50 mcg/actuation nasal spray Use 2 Sprays in each nostril once daily. albuterol HFA (PROVENTIL HFA, VENTOLIN HFA) 90 mcg/actuation inhaler Inhale 2 Puffs as instructed every 4 hours as needed. CPAP Mask (per patient preference) optional chin strap (if indicated) , filters, tubing, humidifier and lifetime supplies. LYRICA 75 mg capsule Take 1 capsule by mouth twice daily. Social History Tobacco Use Smoking status: Every Day Packs/day: 0.50 Years: 40.00 Additional pack years: 0.00 Total pack years: 20.00 Types: Cigarettes Start date: 1981 Smokeless tobacco: Never Tobacco comments: from age 16. One PPD in past. Cut to 1/2 PPD in April Vaping Use Vaping Use: Never used Substance Use Topics Alcohol use: Not Currently Comment: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 (5-9) mild anxiety, (10-14) moderate anxiety, (15-21) severe anxiety Patient Health Questionnaire (PHQ-9) PHQ-9 08/22/2022 09/13/2022 01/15/2023 Score 11 3 6 (0-4) minimal depression, (5-9) mild depression, (10-14) moderate depression, (15-19) moderately severe depression, (20-27) severe depression ROS: see HPI General: Negative for fever, malaise, unintentional weight loss HEENT: Negative for recent changes in vision or hearing, no nasal drainage Respiratory: Negative for cough, wheezing or SOB Cardiovascular: Negative for chest pain GI: Negative for nausea, vomiting, change in bowel habits MUSCULOSKELETAL: Negative for acute back or joint pain SKIN: Negative for rash NEURO: Negative for headaches, seizures, focal neurological deficits All other systems negative. VITAL SIGNS: BP 132/58 (01/15/23816) Temp Pulse 76 (01/15/23816) Resp SpO2 MENTAL STATUS EXAMINATION: Appearance: Appropriately groomed, appears stated age Behavior: Appropriately engaged Psychomotor: No psychomotor agitation Cognition Level of Consciousness: Awake and alert. No fluctuation in wakefulness. Orientation: Grossly oriented Memory: Intact Attention/Concentration: Good Fund of Knowledge: Able to demonstrate an awareness of current events. Mood: Sad, Anxious Affect: Congruent to mood Speech/Language: Appropriate tone, prosody, garrett, phonetics, and syntax Thought Form: Goal-directed. No loosening of associations. Thought Content: No delusions noted or endorsed. Perceptual Disturbances: Did not appear to respond to auditory stimuli. Safety: Suicidal Ideations: No suicidal ideation, intent or plan. Homicidal Ideations: No homicidal ideation, intent or plan. Insight: Appropriate Judgment: Appropriate I spent a total of 46 minutes on the date of the service which included preparing to see the patient, [id number] patient care, completing clinical documentation, and counseling and educating the patient/family/caregiver, ordering medications/labs. Seda Quiroz APRN.MANAGER OF HUMAN RESOURCES January 15, 2023 8:23 AM This note was partially generated using [email or web address] voice recognition system. Note was reviewed for accuracy. There may be minor misspellings or grammar miscues with [email or web address] voice recognition. documented in this encounter [facility] 12-04-2022 Note HNO ID: [id number] Author: Aron Navarro Service: ? Author Type: Physician Type: Progress Notes Filed: 12/05/2022 6:45 AM Note Text: Subjective: This 57 year old female presents to clinic for diabetic foot check. Patient has the following complaints: ingrowing toenail with pain to b/l hallux. Patient admits to being diabetic for 12+ years now. Patient +B/T/N in feet at this time. Patient -pain in legs when walking. No other pedal complaints at this time. No change in medications or medical history since last visit. PAIN EVALUATION No data found in the last 1 encounters. Hemoglobin A1C (%) Date Value 08/28/2022 5.7 12/02/2021 5.5 03/15/2021 6.4 02/22/2020 6.0 04/07/2019 5.7 08/18/2018 5.5 08/10/2017 5.8 Hemoglobin A1C (POCT) (%) Date Value 08/31/2020 5.9 PCP: Jericho Tinoco MD PAST MEDICAL HISTORY Diagnosis Date Acute myocardial infarction of lateral wall ([facility]) 04/04/2022 [facility] Cerebellar mass 1995 mass versus infarct Cervical cord compression with myelopathy ([facility]) 05/28/2019 Depression 04/11/2015 Disc degeneration, lumbar 2000 Gastroesophageal reflux disease without esophagitis 04/11/2015 Helicobacter pylori gastritis 01/24/2021 History of psoriatic arthritis Impaired fasting glucose 05/12/2015 Irritable bowel syndrome with diarrhea 12/02/2021 Low back pain 04/11/2015 Mixed hyperlipidemia 05/26/2015 Obesity due to excess calories 05/26/2015 JOSE on CPAP 05/26/2015 Pain in joint, multiple sites 05/26/2015 Panic anxiety syndrome 04/11/2015 Postlaminectomy syndrome 12/05/2015 Radiculopathy, lumbar region 12/05/2015 Stage 3b chronic kidney disease (HCC) 12/04/2021 Type 2 diabetes mellitus without complication ([facility]) 03/02/2016 Current Outpatient Medications Medication Sig dulaglutide (TRULICITY) 1.5 mg/0.5 mL pen injector Inject 1.5 mg subcutaneously one time a week. Inject once per week. Discard Pen After amitriptyline (ELAVIL) 75 mg tablet Take 1 tablet by mouth daily at bedtime. escitalopram oxalate (LEXAPRO) 20 mg tablet Take 1 tablet by mouth once daily. Per Counseling [facility]. lansoprazole (PREVACID) 30 mg capsule Take 1 capsule by mouth once daily. buprenorphine (BUTRANS) 10 mcg/hour Apply 1 Patch as directed one time a week. Per Pain Management. aspirin, enteric coated (ASPIRIN, ENTERIC COATED) 81 mg EC tablet Take 1 tablet by mouth once daily. atorvastatin (LIPITOR) 40 mg tablet Take 1 tablet by mouth daily at bedtime. For cholesterol. carvedilol (COREG) 6.25 mg tablet Take 1 tablet by mouth twice daily. losartan (COZAAR) 50 mg tablet Take 1 tablet by mouth once daily. nitroglycerin sublingual (NITROQUICK) 0.4 mg SL tablet Dissolve 1 tablet under the tongue every 5 minutes as needed for chest pain. fluticasone-vilanterol (BREO ELLIPTA) 200-25 mcg/dose inhaler Inhale 1 Inhalation as instructed once daily. Adalimumab (HUMIRA PEN) 40 mg/0.8 mL Inject 40 mg subcutaneously every other week. folic acid 1 mg tablet Take 1 mg by mouth once daily. fluticasone (FLONASE) 50 mcg/actuation nasal spray Use 2 Sprays in each nostril once daily. albuterol HFA (PROVENTIL HFA, VENTOLIN HFA) 90 mcg/actuation inhaler Inhale 2 Puffs as instructed every 4 hours as needed. CPAP Mask (per patient preference) optional chin strap (if indicated) , filters, tubing, humidifier and lifetime supplies. LYRICA 75 mg capsule Take 1 capsule by mouth twice daily. zolpidem (AMBIEN) 10 mg Take 1 tablet by mouth at bedtime as needed for up to 30 days. clonazePAM (KLONOPIN) 0.5 mg tablet Take 1 tablet by mouth twice daily as needed for anxiety (and TD) for up to 30 days. lamoTRIgine (LAMICTAL) 200 mg tablet Take 1 tablet by mouth once daily. Per [facility]. ticagrelor (BRILINTA) 90 mg tablet Take 1 tablet by mouth twice daily. methotrexate 2.5 mg tablet Take 6 tablets by mouth one time a week. No current facility-administered medications for this visit. ALLERGIES Allergen Reactions Codeine Other: See Comments becomes hyper Seroquel [Quetiapin* Other: See Comments TD Vraylar [Cariprazin* Other: See Comments TD Dilaudid [Hydromorp* GI Upset Percocet [Oxycodone* GI Upset Ultram [Tramadol Hc* GI Upset PAST SURGICAL HISTORY Procedure Laterality Date ANTERIOR DISKECTOMY, CERVICAL, EACH ADDL 05/30/2019 ACDF C5-6 - anterior cervical discectomy and arthrodesis ARTHRP KNE CONDYLEANDPLATU MEDIALANDLAT COMPARTMENTS Left 01/14/2018 COLONOSCOPY AND BIOPSY 09/02/2017 Dr. cooney EGD 01/23/2021 KNEE ARTHROSCOP MENISCUS REPAIR MED/LAT Left 06/22/2016 partial medial meniscectomy LUMBAR OR CAUDAL EPIDURAL INJECTION 01/2017 multiple since 2014. NEUROPLASTY AND/TRANSPOS MEDIAN NRV CARPAL TUNNE Left 08/30/2009 [facility] PAST SURGICAL HISTORY OF 05/30/2019 C5-[address] Grace Long PT ED HEART AND VASCULAR Cardiac Stent [facility] 04/04/22 S PROBE PERC LUMBAR DISCECTOMY 04/2000 [facility] FAM (more content not included)... [facility] 12-04-2022 Note HNO ID: [id number] Author: Pepper Estrada LPN Service: ? Author Type: LICENSED NURSE Type: Progress Notes Filed: 12/05/2022 6:45 AM Note Text: AMB ROOMING INTAKE FLOWSHEET DATA Patient presents with: Left Foot - Established Patient, Diabetic Foot Care Right Foot - Established Patient, Diabetic Foot Care Pepper Estrada LPN [facility] 12-04-2022 Instructions Aron Navarro - 12/04/2022 2:15 PM EDT Diabetes Foot Care Instructions When you have diabetes, proper foot care is very important. Poor foot care may lead to amputation of a foot or leg. As a person with diabetes, you are more vulnerable to foot problems, because diabetes can damage your nerves and reduce blood flow to your feet. Here are some diabetes foot care tips to follow: Wash and Dry Your Feet Daily Use mild soaps Use warm water Pat your skin dry; do not rub. Thoroughly dry your feet. After washing, use lotion on your feet to prevent cracking. Do not put lotion between your toes. Examine Your Feet Each Day Check the tops and bottoms of your feet. Have someone else look at your feet if you cannot see them. Check for dry, cracked skin. Look for blisters, cuts, scratches, or other sores. Check for redness, increased warmth, or tenderness when touching any area of your feet. Check for ingrown toenails, corns, and calluses. If you get a blister or sore from your shoes, do not pop it. Apply a bandage and wear a different pair of shoes. Take Care of Your Toenails Cut toenails after bathing, when they are soft. Cut toenails straight across and smooth with a nail file. Avoid cutting into the corners of toes. Do not cut cuticles. If you have neuropathy (or decreased sensation in your feet) a engineering specialist technician should always cut your toenails. Be Careful When Exercising Walk and exercise in comfortable shoes. Do not exercise when you have open sores on your feet. Protect Your Feet With Shoes and Socks Never go barefoot. Always protect your feet by wearing shoes or hard-soled slippers or footwear. Avoid shoes with high heels and pointed toes. Avoid shoes that expose your toes or heels (such as open-toed shoes or sandals). These types of shoes increase your risk for injury and potential infections. Try on new footwear with the type of socks you usually wear. Do not wear new shoes for more than an hour at a time. Change your socks daily. Look and feel inside your shoes before putting them on to make sure there are no foreign objects or rough areas. Avoid tight socks. Wear natural-fiber socks (cotton, wool, or a cotton-wool blend). Wear special shoes if your health care provider recommends them. Wear shoes/boots that will protect your feet from various weather conditions (cold, moisture, etc.). Make sure your shoes fit properly. If you have neuropathy (nerve damage), you may not notice that your shoes are too tight. Perform the footwear test described below. Footwear Test Use this simple test to see if your shoes fit correctly: Stand on a piece of paper. (Make sure you are standing and not sitting, because your foot changes shape when you stand.) Trace the outline of your foot. Trace the outline of your shoe. Compare the tracings: Is the shoe too narrow? Is your foot crammed into the shoe? The shoe should be at least 1/2 inch longer than your longest toe and as wide as your foot. Proper Shoe Choices The following types of shoes are best for people with diabetes Closed toes and heels Leather uppers without a seam inside At least 1/2 inch extra space at the end of your longest toe Inside of shoe should be soft with no rough areas Outer sole should be made of stiff material Shoes should be at least as wide as your feet Tips for Foot Care in Diabetes Don't wait to treat a minor foot problem if you have diabetes. Follow your health care provider's guidelines and first aid guidelines. Report foot injuries and infections to your health care provider immediately. Check water temperature with your elbow, not your foot. Do not use a heating pad on your feet. Do not cross your legs. Do not self-treat your corns, calluses, or other foot problems. Go to your health care provider or engineering specialist technician to treat these conditions. documented in this encounter [facility] 12-04-2022 History of Presen t illness Narrative Subjective: This 57 year old female presents to clinic for diabetic foot check. Patient has the following complaints: ingrowing toenail with pain to b/l hallux. Patient admits to being diabetic for 12+ years now. Patient +B/T/N in feet at this time. Patient -pain in legs when walking. No other pedal complaints at this time. No change in medications or medical history since last visit. PAIN EVALUATION No data found in the last 1 encounters. Hemoglobin A1C (%) Date Value 08/28/2022 5.7 12/02/2021 5.5 03/15/2021 6.4 02/22/2020 6.0 04/07/2019 5.7 08/18/2018 5.5 08/10/2017 5.8 Hemoglobin A1C (POCT) (%) Date Value 08/31/2020 5.9 PCP: Jericho Tinoco MD PAST MEDICAL HISTORY Diagnosis Date Acute myocardial infarction of lateral wall (HCC) 04/04/2022 [facility] Cerebellar mass 1995 mass versus infarct Cervical cord compression with myelopathy (HCC) 05/28/2019 Depression 04/11/2015 Disc degeneration, lumbar 2000 Gastroesophageal reflux disease without esophagitis 04/11/2015 Helicobacter pylori gastritis 01/24/2021 History of psoriatic arthritis Impaired fasting glucose 05/12/2015 Irritable bowel syndrome with diarrhea 12/02/2021 Low back pain 04/11/2015 Mixed hyperlipidemia 05/26/2015 Obesity due to excess calories 05/26/2015 JOSE on CPAP 05/26/2015 Pain in joint, multiple sites 05/26/2015 Panic anxiety syndrome 04/11/2015 Postlaminectomy syndrome 12/05/2015 Radiculopathy, lumbar region 12/05/2015 Stage 3b chronic kidney disease (HCC) 12/04/2021 Type 2 diabetes mellitus without complication (HCC) 03/02/2016 Current Outpatient Medications Medication Sig dulaglutide (TRULICITY) 1.5 mg/0.5 mL pen injector Inject 1.5 mg subcutaneously one time a week. Inject once per week. Discard Pen After amitriptyline (ELAVIL) 75 mg tablet Take 1 tablet by mouth daily at bedtime. escitalopram oxalate (LEXAPRO) 20 mg tablet Take 1 tablet by mouth once daily. Per [facility]. lansoprazole (PREVACID) 30 mg capsule Take 1 capsule by mouth once daily. buprenorphine (BUTRANS) 10 mcg/hour Apply 1 Patch as directed one time a week. Per Pain Management. aspirin, enteric coated (ASPIRIN, ENTERIC COATED) 81 mg EC tablet Take 1 tablet by mouth once daily. atorvastatin (LIPITOR) 40 mg tablet Take 1 tablet by mouth daily at bedtime. For cholesterol. carvedilol (COREG) 6.25 mg tablet Take 1 tablet by mouth twice daily. losartan (COZAAR) 50 mg tablet Take 1 tablet by mouth once daily. nitroglycerin sublingual (NITROQUICK) 0.4 mg SL tablet Dissolve 1 tablet under the tongue every 5 minutes as needed for chest pain. fluticasone-vilanterol (BREO ELLIPTA) 200-25 mcg/dose inhaler Inhale 1 Inhalation as instructed once daily. Adalimumab (HUMIRA PEN) 40 mg/0.8 mL Inject 40 mg subcutaneously every other week. folic acid 1 mg tablet Take 1 mg by mouth once daily. fluticasone (FLONASE) 50 mcg/actuation nasal spray Use 2 Sprays in each nostril once daily. albuterol HFA (PROVENTIL HFA, VENTOLIN HFA) 90 mcg/actuation inhaler Inhale 2 Puffs as instructed every 4 hours as needed. CPAP Mask (per patient preference) optional chin strap (if indicated) , filters, tubing, humidifier and lifetime supplies. LYRICA 75 mg capsule Take 1 capsule by mouth twice daily. zolpidem (AMBIEN) 10 mg Take 1 tablet by mouth at bedtime as needed for up to 30 days. clonazePAM (KLONOPIN) 0.5 mg tablet Take 1 tablet by mouth twice daily as needed for anxiety (and TD) for up to 30 days. lamoTRIgine (LAMICTAL) 200 mg tablet Take 1 tablet by mouth once daily. Per [facility]. ticagrelor (BRILINTA) 90 mg tablet Take 1 tablet by mouth twice daily. methotrexate 2.5 mg tablet Take 6 tablets by mouth one time a week. No current facility-administered medications for this visit. ALLERGIES Allergen Reactions Codeine Other: See Comments becomes hyper Seroquel [Quetiapin* Other: See Comments TD Vraylar [Cariprazin* Other: See Comments TD Dilaudid [Hydromorp* GI Upset Percocet [Oxycodone* GI Upset Ultram [Tramadol Hc* GI Upset PAST SURGICAL HISTORY Procedure Laterality Date ANTERIOR DISKECTOMY, CERVICAL, EACH ADDL 05/30/2019 ACDF C5-6 - anterior cervical discectomy and arthrodesis ARTHRP KNE CONDYLE&PLATU MEDIAL&LAT COMPARTMENTS Left 01/14/2018 COLONOSCOPY AND BIOPSY 09/02/2017 Dr. cooney EGD 01/23/2021 KNEE ARTHROSCOP MENISCUS REPAIR MED/LAT Left 06/22/2016 partial medial meniscectomy LUMBAR OR CAUDAL EPIDURAL INJECTION 01/2017 multiple since 2014. NEUROPLASTY &/TRANSPOS MEDIAN NRV CARPAL TUNNE Left 08/30/2009 [facility] PAST SURGICAL HISTORY OF 05/30/2019 C5-[address] Grace Long PT ED HEART AND VASCULAR Cardiac Stent [facility] 04/04/22 S PROBE PERC LUMBAR DISCECTOMY 04/2000 [facility] FAMILY HISTORY Problem Relation Age of Onset Stroke Mother 50 Hypertension Mother COPD Father Diabetes Father Heart Father chf Kidney Disease Father esrd Bipolar disorder Sister Hypertension Sister Bipolar disorder Sister Hypertension Sister Diabetes Brother Hypertension Brother Breast Cancer Paternal Grandmother Social History Tobacco Use Smoking status: Every Day Packs/day: 0.50 Years: 40.00 Total pack years: 20.00 Types: Cigarettes Start date: 1981 Smokeless tobacco: Never Tobacco comments: from age 16. One PPD in past. Cut to 1/2 PPD in April Vaping Use Vaping Use: Never used Substance Use Topics Alcohol use: Not Currently Comment: rare 1 drink Drug use: No REVIEW OF SYSTEMS GENERAL: Negative for Malaise, significant weight loss, fever RESPIRATORY: Negative for cough, wheezing and shortness of breath CARDIOVASCULAR: Negative for chest pain, leg swelling and palpitations GI: Negative for abdominal discomfort, blood in stools or black stools and change in bowel habits : Negative for dysuria, frequency and incontinence MUSCULOSKELETAL: Negative for joint pain or swelling, back pain, and muscle pain. SKIN: Negative for lesions, rash, and itching. HEMATOLOGY/LYMPHOLOGY Negative for prolonged bleeding, bruising easily, and swollen nodes. ENDOCRINE: Negative for cold or heat intolerance, polyuria, polydipsia and goiter. NEURO: negative The remainder of the review of systems is noncontributory. Objective: Patient presents to clinic ambulating in [facility] Constitutional: Pt is a well developed 57 year old female who is alert, oriented, cooperative and in no apparent distress. Eyes: Following during examination. No redness or drainage. Respiratory: RR normal and nonlabored. Even breathing. No evidence of distress. Psychology: Patient is engaged during conversation. Normal affect and mood. Does not appear depressed or anxious. Vasc: DP and PT pulses are faintly palpable bilateral. CFT is less than 5 seconds bilateral. Skin temperature is warm to warm proximal to distal bilateral. There is no edema or varicosities noted. Hair growth present. Neuro: Protective sensation is intact to the foot and toes when tested with the 5.07 SWM bilateral. Vibratory sensation is decreased at the hallux bilateral. +Significant neurological defecits. Derm: Inspection and palpation performed. Nails 1-5 b/l are incurvated, painful, discolored-yellow, thick, crumbly, dystrophic and with subungal debris. Skin is dry and scaly b/l. Hyperkeratosis noted to b/l hallux. NO ulcerations, scars, verruca or other lesions noted. Ortho: Ankle joint DF is full with the knee extended and full with knee flexed. No pain or crepitus noted. STJ, MTJ ROM are full and free of pain or crepitus. Muscle strength is 5/5 for dorsiflexors, plantarflexors, inverters, everters. Digital deformities include none. Assessment: (E08.41) Diabetic mononeuropathy associated with diabetes mellitus due to underlying condition ([facility]) (primary encounter diagnosis) (L84) Callus of foot (L60.0) Ingrowing toenail (B35.1) Onychomycosis (M79.675) Pain in toe of left foot (M79.674) Pain in toe of right foot (R09.89) Diminished pulses in lower extremity Plan: 1. Patient was seen and evaluated. 2. Patient was instructed on the continued importance of diabetic foot care along with proper diet and keeping their blood sugar under control to prevent complications. Instructions given both oral and written. 3. Patient has severely incurvated b/l hallux nail. These cause her pain. Toenails 1-5 b/l were debrided in length and thickness. Discussed removal of toenails. Would consider this but would like to get pvr prior. Would be ideal if patient could stop smoking prior. 4. Callus reduced with dremmel to b/l hallux without incidence. 5. Diabetic shoes ordered. Patient will benefit from diabetic shoes given early neuropathy in presence of callus 6. Pvr ordered 7. F/u in 3 months Aron Navarro DPM AMB ROOMING INTAKE FLOWSHEET DATA Patient presents with: Left Foot - Established Patient, Diabetic Foot Care Right Foot - Established Patient, Diabetic Foot Care Pepper Estrada LPN documented in this encounter [facility] 11-16-2022 Miscellaneous Notes Letter faxed to number provided as requested. Braxton Sethi Ma Patient calls to request a letter for [employer] stating that she needs to have her electric on for use of her CPAP machine. Patient reports it is for the Summer HEAP program (assistance with electric bill). Patient reports no forms are needed just a letter and it needs faxed to [phone]. Sofi Carrion RN documented in this encounter [facility] 11-07-2022 Note Patient Outreach (IN [facility]) JUAN EAGLE ([id number]) 1965 F CHT Date Time Provider Department 11/07/22 JERICHO TINOCO During your visit today, we recorded the following information about you: Allergies As of Date: 11/07/2022 Noted Allergy Reaction CODEINE 04/11/2015 14 - Other: See Comments Comments: becomes hyper SEROQUEL (QUETIAPINE) 04/07/2019 14 - Other: See Comments Comments: TD VRAYLAR (CARIPRAZINE) 04/07/2019 14 - Other: See Comments Comments: TD DILAUDID (HYDROMORPHONE (BULK)) 04/11/2015 8 - GI Upset PERCOCET (OXYCODONE-ACETAMINOPHEN) 015 8 - GI Upset ULTRAM (TRAMADOL HCL) 04/11/2015 8 - GI Upset Date Reviewed: 08/28/2022 Reviewed by: Joanna Arce APRN.MANAGER OF HUMAN RESOURCES - Fully Assessed Visit Diagnosis:Encounter for screening mammogram for breast cancer [Z12.31] Order(s):[facility] SCREENING [[id number]] Order #: [id number] FUTURE Prescriptions as of 11/12/2022 - dulaglutide (TRULICITY) 1.5 mg/0.5 mL pen injector Inject 1.5 mg subcutaneously one time a week. Inject once per week. Discard Pen After - amitriptyline (ELAVIL) 75 mg tablet Take 1 tablet by mouth daily at bedtime. - zolpidem (AMBIEN) 10 mg Take 1 tablet by mouth at bedtime as needed for up to 30 days. - clonazePAM (KLONOPIN) 0.5 mg tablet Take 1 tablet by mouth twice daily as needed for anxiety (and TD) for up to 30 days. - lamoTRIgine (LAMICTAL) 200 mg tablet Take 1 tablet by mouth once daily. [facility]. - escitalopram oxalate (LEXAPRO) 20 mg tablet Take 1 tablet by mouth once daily. [facility]. - lansoprazole (PREVACID) 30 mg capsule Take 1 capsule by mouth once daily. - buprenorphine (BUTRANS) 10 mcg/hour Apply 1 Patch as directed one time a week. Per [facility]. - aspirin, enteric coated (ASPIRIN, ENTERIC COATED) 81 mg EC tablet Take 1 tablet by mouth once daily. - atorvastatin (LIPITOR) 40 mg tablet Take 1 tablet by mouth daily at bedtime. For cholesterol. - carvedilol (COREG) 6.25 mg tablet Take 1 tablet by mouth twice daily. - losartan (COZAAR) 50 mg tablet Take 1 tablet by mouth once daily. - nitroglycerin sublingual (NITROQUICK) 0.4 mg SL tablet Dissolve 1 tablet under the tongue every 5 minutes as needed for chest pain. - ticagrelor (BRILINTA) 90 mg tablet Take 1 tablet by mouth twice daily. - fluticasone-vilanterol (BREO ELLIPTA) 200-25 mcg/dose inhaler Inhale 1 Inhalation as instructed once daily. - Adalimumab (HUMIRA PEN) 40 mg/0.8 mL Inject 40 mg subcutaneously every other week. - folic acid 1 mg tablet Take 1 mg by mouth once daily. - methotrexate 2.5 mg tablet Take 6 tablets by mouth one time a week. - fluticasone (FLONASE) 50 mcg/actuation nasal spray Use 2 Sprays in each nostril once daily. - albuterol HFA (PROVENTIL HFA, VENTOLIN HFA) 90 mcg/actuation inhaler Inhale 2 Puffs as instructed every 4 hours as needed. - CPAP Mask (per patient preference) optional chin strap (if indicated) , filters, tubing, humidifier and lifetime supplies. - LYRICA 75 mg capsule Take 1 capsule by mouth twice daily. Problem List As Of Date 11/07/2022 Noted Resolved Depression [F32.A] 04/11/2015 08/10/2017 Panic disorder with agoraphobia [F40.01] 04/11/2015 Low back pain [M54.50] 04/11/2015 02/20/2017 Gastroesophageal reflux disease without esophag*04/11/2015 12/16/2019 Type 2 diabetes mellitus with stage 3a chronic *03/01/2022 Pain in joint, multiple sites [M25.50] 05/26/2015 11/30/2021 Mixed hyperlipidemia [E78.2] 05/26/2015 JOSE on CPAP [G47.33] 05/26/2015 Radiculopathy, lumbar region [M54.16] 12/05/2015 Postlaminectomy syndrome [M96.1] 12/05/2015 Osteoarthritis of lumbar spine [M47.816] 12/05/2015 02/20/2017 DDD (degenerative disc disease), lumbar [M51.36]12/05/2015 Thumb tendonitis [M77.8] 01/20/2016 02/20/2017 Edema [R60.9] 04/05/2016 Class 3 severe obesity with body mass index (BM*08/10/2017 Persistent headaches [R51.9] 08/14/2018 Intractable pain [R52] 05/28/2019 12/02/2021 Cord compression (HCC) [G95.20] 05/29/2019 12/02/2021 S/P cervical spinal fusion [Z98.1] 06/15/2019 Tobacco use disorder [F17.200] 12/16/2019 BMI 45.0-49.9, adult (HCC) [Z68.42] 01/25/2020 03/20/2021 Moderate persistent asthma without complication*01/25/2020 Helicobacter pylori gastritis [K29.70, B96.81] 01/24/2021 12/02/2021 Psoriatic arthritis (HCC) [L40.50] 03/15/2021 Irritable bowel syndrome with diarrhea [K58.0] 12/02/2021 Stage 3a chronic kidney disease (HCC) [N18.31] 12/04/2021 Coronary artery disease involving marshall andre*04/11/2022 ST elevation myocardial infarction involving le*04/11/2022 Ventricular fibrillation (HCC) [I49.01] 04/11/2022 08/28/2022 Ischemic cardiomyopathy [I25.5] 04/11/2022 Encounter for long-term (current) use of medica*07/01/2022 Bipolar disorder (HCC) [F31.9] 07/01/2022 PTSD (post-traumatic stress disorder) [F43.10] 07/01/2022 Dys (more content not included)... [facility] 09-20-2022 Note HNO ID: [id number] Author: Seda Quiroz APRN.MANAGER OF HUMAN RESOURCES Service: ? Author Type: Nurse Practitioner Type: Progress Notes Filed: 09/20/2022 10:54 AM Note Text: PSYC FOLLOW UP - PSYCHIATRIC PROGRESS NOTE DIAGNOSIS: Bipolar affective disorder, most recent episode depressed, in remission Panic disorder with agoraphobia PTSD Tardive Dyskinesia GAF: -70-61 Some mild symptoms or some difficulty in social, occupational, or school functioning, but generally functioning pretty well. TREATMENT PLAN: Continue Lamictal, Ambien, Klonopin, and Lexapro at the same dose. Follow-up in January. The effects and side effects of all the medications were reviewed in detail with the patient. She is aware of the rash side effect associated with Lamictal. Patient is in agreement with the treatment plan and aware to reach out with any questions, concerns, or worsening of symptoms prior to the next appointment. PDMP report was reviewed and found to be appropriate without any signs of misuse or diversion. CC: Follow-up for psychiatric medication management. With the patient consent, visit was performed virtually. I have communicated my name and active licensure. The patient's identity and physical location were verified at the time of this visit. Either the patient or their legal order entry representative has been informed of the risks and benefits of -- and alternatives to -- treatment through a remote evaluation and consents to proceed with the evaluation remotely. HPI: Juan Eagle is a 57 year old Female with a history of Bipolar disorder, Panic disorder, PTSD, and TD presenting today for follow-up. Date of last visit: 08/23/2022 Plan from last visit: Increase Lamictal to address depressive symptoms. Continue Ambien, Klonopin, and Lexapro at the same dose. Follow up in 4 weeks. Today Juan shares that that she has noticed a significant improvement in her mood with the increase in lamotrigine dose. She has tolerated that without any side effects. Prior to that she was struggling with more depressive episodes. She has not had a true manic episode recently. Reports 1 day when she had a lot of racing thoughts and could not sleep. Unable to take antipsychotic medications but has been sleeping well and tardive dyskinesia is managed well with the clonazepam. Denies any side effects from her psychotropic medications currently. Denies any concerns with her physical health currently. Interval Progress: Improved Risks and benefits of the medication, including any black box warnings, were discussed with the patient. Social History: See HPI PATIENT DATA: Generalized Anxiety Disorder Scale (ELKIN-7) ELKIN - 7 SCORES 06/16/2022 08/22/2022 ELKIN-7 Score 11 5 (0-4) minimal anxiety, (5-9) mild anxiety, (10-14) moderate anxiety, (15-21) severe anxiety Patient Health Questionnaire (PHQ-9) PHQ-9 06/16/2022 08/22/2022 09/13/2022 Score 17 11 3 (0-4) minimal depression, (5-9) mild depression, (10-14) moderate depression, (15-19) moderately severe depression, (20-27) severe depression ROS: See HPI General: Negative for fever, malaise, unintentional weight loss HEENT: Negative for recent changes in vision or hearing, no nasal drainage Respiratory: Negative for cough, wheezing or SOB Cardiovascular: Negative for chest pain GI: Negative for nausea, vomiting, change in bowel habits MUSCULOSKELETAL: Negative for acute back or joint pain SKIN: Negative for rash NEURO: Negative for headaches, seizures, focal neurological deficits All other systems negative. VITAL SIGNS: BP Temp Pulse Resp SpO2 MENTAL STATUS EXAMINATION: Appearance: Appropriately groomed, appears stated age Behavior: Appropriately engaged Psychomotor: No psychomotor agitation Cognition Level of Consciousness: Awake and alert. No fluctuation in wakefulness. Orientation: Grossly oriented Memory: Intact Attention/Concentration: Good Fund of Knowledge: Able to demonstrate an awareness of current events. Mood: Euthymic Affect: Congruent to mood Speech/Language: Appropriate tone, prosody, garrett, phonetics, and syntax Thought Form: Goal-directed. No loosening of associations. Thought Content: No delusions noted or endorsed. Perceptual Disturbances: Did not appear to respond to auditory stimuli. Safety: Suicidal Ideations: No suicidal ideation, intent or plan. Homicidal Ideations: No homicidal ideation, intent or plan. Insight: Appropriate Judgment: Appropriate I spent a total of 28 minutes on the date of the service which included preparing to see the patient, [id number] patient care, completing clinical documentation, and counseling and educating the patient/family/caregiver, ordering medications/labs. Seda Quiroz APRN.CNP September 20, 2022 10:20 AM This note was partially generated using [email or web address] voice recognition system. Note was reviewed for accuracy. There may be minor misspellings or grammar miscu (more content not included)... [facility] 08-29-2022 Miscellaneous Notes Below results left on identified vm. Gricelda Duckworth LPN ----- Message from Joanna Arce APRN.CNP sent at 08/29/2022 8:41 AM EDT ----- Please let the patient know HgbA1c was 5.7, diabetes well controlled. Kidney function stable. The rest of her labs were within acceptable limits documented in this encounter [facility] 08-28-2022 Note HNO ID: [id number] Author: Joanna Arce APRN.CNP Service: ? Author Type: Nurse Practitioner Type: Progress Notes Filed: 08/28/2022 2:31 PM Note Text: CC: Patient presents with: F/U 3 Month: C/o migraines and regurgitation HPI Juan Eagle is a 57 year old female who presents today for above. Diabetes: Home blood sugar readings: does not check Hypoglycemia: No She is compliant with medication(s) and is tolerating med(s) without any side effects. Patient's last HgA1C was Hemoglobin A1C (%) Date Value 12/02/2021 5.5 03/15/2021 6.4 02/22/2020 6.0 Hemoglobin A1C (POCT) (%) Date Value 08/31/2020 5.9 Chronic headaches/migraines: becoming more frequent again, occurring almost daily. Associated with her typical migraine symptoms including light/sound sensitivity, nausea, vomiting. Alleviated by resting in dark/quiet room. She is on Elavil 50 mg daily, doesn't seem to be as effective. No new or worsening symptoms. GERD: symptoms becoming more frequent including reflux, acid brash, heartburn. Denies dysphagia, odynophagia, abdominal pain, black/bloody stools, bloating. She takes Prevacid 30 mg daily. Has not taken any prn OTC medications such as TUMS. Patient is bipolar. She had recent manic episode and ate a lot of sugar to cope. Gained about 10 lbs in a month because of this. She is better now and getting back on track with her diet. Taking all psychiatric medications as prescribed. REVIEW OF SYSTEMS GENERAL: Negative for malaise, significant weight loss and fever RESPIRATORY: Negative for cough, wheezing and shortness of breath CARDIOVASCULAR: Negative for chest pain, leg swelling and palpitations PAST MEDICAL HISTORY Diagnosis Date Acute myocardial infarction of lateral wall ([facility]) 04/04/2022 [facility] Cerebellar mass 1995 mass versus infarct Cervical cord compression with myelopathy ([facility]) 05/28/2019 Depression 04/11/2015 Disc degeneration, lumbar 2000 Gastroesophageal reflux disease without esophagitis 04/11/2015 Helicobacter pylori gastritis 01/24/2021 History of psoriatic arthritis Impaired fasting glucose 05/12/2015 Irritable bowel syndrome with diarrhea 12/02/2021 Low back pain 04/11/2015 Mixed hyperlipidemia 05/26/2015 Obesity due to excess calories 05/26/2015 JOSE on CPAP 05/26/2015 Pain in joint, multiple sites 05/26/2015 Panic anxiety syndrome 04/11/2015 Postlaminectomy syndrome 12/05/2015 Radiculopathy, lumbar region 12/05/2015 Stage 3b chronic kidney disease (HCC) 12/04/2021 Type 2 diabetes mellitus without complication ([facility]) 03/02/2016 PAST SURGICAL HISTORY Procedure Laterality Date ANTERIOR DISKECTOMY, CERVICAL, EACH ADDL 05/30/2019 ACDF C5-6 - anterior cervical discectomy and arthrodesis ARTHRP KNE CONDYLEANDPLATU MEDIALANDLAT COMPARTMENTS Left 01/14/2018 COLONOSCOPY AND BIOPSY 09/02/2017 Dr. cooney EGD 01/23/2021 KNEE ARTHROSCOP MENISCUS REPAIR MED/LAT Left 06/22/2016 partial medial meniscectomy LUMBAR OR CAUDAL EPIDURAL INJECTION 01/2017 multiple since 2014. NEUROPLASTY AND/TRANSPOS MEDIAN NRV CARPAL TUNNE Left 08/30/2009 [facility] PAST SURGICAL HISTORY OF 05/30/[address] C5-[address] Grace Long PT [facility] Cardiac Stent [facility] 04/04/22 S PROBE PERC LUMBAR DISCECTOMY 04/2000 [facility] ALLERGIES Codeine, Seroquel [Quetiapine], Vraylar [Cariprazine], Dilaudid [Hydromorphone (Bulk)], Percocet [Oxycodone-Acetaminophen], and Ultram [Tramadol Hcl] MEDICATIONS dulaglutide (TRULICITY) 1.5 mg/0.5 mL pen injector Inject 1.5 mg subcutaneously one time a week. Inject once per week. Discard Pen After amitriptyline (ELAVIL) 75 mg tablet Take 1 tablet by mouth daily at bedtime. zolpidem (AMBIEN) 10 mg Take 1 tablet by mouth at bedtime as needed for up to 30 days. clonazePAM (KLONOPIN) 0.5 mg tablet Take 1 tablet by mouth twice daily as needed for anxiety (and TD) for up to 30 days. lamoTRIgine (LAMICTAL) 200 mg tablet Take 1 tablet by mouth once daily. [facility]. escitalopram oxalate (LEXAPRO) 20 mg tablet Take 1 tablet by mouth once daily. [facility]. lansoprazole (PREVACID) 30 mg capsule Take 1 capsule by mouth once daily. buprenorphine (BUTRANS) 10 mcg/hour Apply 1 Patch as directed one time a week. Per Pain Management. aspirin, enteric coated (ASPIRIN, ENTERIC COATED) 81 mg EC tablet Take 1 tablet by mouth once daily. atorvastatin (LIPITOR) 40 mg tablet Take 1 tablet by mouth daily at bedtime. For cholesterol. carvedilol (COREG) 6.25 mg tablet Take 1 tablet by mouth twice daily. losartan (COZAAR) 50 mg tablet Take 1 tablet by mouth once daily. nitroglycerin sublingual (NITROQUICK) 0.4 mg SL tablet Dissolve 1 tablet under the tongue every 5 minutes as needed for chest pain. ticagrelor (BRILINTA) 90 mg tablet Take 1 tablet by mouth twice daily. fluticasone-vilanterol (BREO ELLIPTA) 200-25 mcg/dose inhaler Inhale 1 Inhalation as instruct (more content not included)... [facility] 08-23-2022 Note HNO ID: [id number] Author: Seda Quiroz APRN.MANAGER OF HUMAN RESOURCES Service: ? Author Type: Nurse Practitioner Type: Progress Notes Filed: 08/23/2022 8:30 AM Note Text: PSYC FOLLOW UP - PSYCHIATRIC PROGRESS NOTE DIAGNOSIS: Bipolar affective disorder, most recent episode depressed Panic disorder with agoraphobia PTSD Tardive Dyskinesia GAF: -60-51 Moderate symptoms or moderate difficulty in social, occupational or school functioning. TREATMENT PLAN: Increase Lamictal to address depressive symptoms. Continue Ambien, Klonopin, and Lexapro at the same dose. Follow up in 4 weeks. Medication Update: Lamictal 200 mg - take 1 tablet once daily. Continue the other psychiatric medications at the same dose. The effects and side effects of all the medications were reviewed in detail with the patient. She is aware of the rash side effect associated with Lamictal. Patient is in agreement with the treatment plan and aware to reach out with any questions, concerns, or worsening of symptoms prior to the next appointment. PDMP report was reviewed and found to be appropriate without any signs of misuse or diversion. CC: Follow up regarding mood, anxiety, and TD With the patient consent, visit was performed virtually. I have communicated my name and active licensure. The patient's identity and physical location were verified at the time of this visit. Either the patient or their legal order entry representative has been informed of the risks and benefits of -- and alternatives to -- treatment through a remote evaluation and consents to proceed with the evaluation remotely. HPI: Juan Eagle is a 57 year old Female with a history of Bipolar disorder, Panic disorder, PTSD, and TD presenting today for follow-up. Date of last visit: 06/22/2022 Plan from last visit: 1. Restart Ambien to help with her sleep difficulties. 2. Okay to continue Lexapro and Lamictal at the same dose. 3. Explosive Specialist Dr. Savage consulted about restarting benzodiazepines. He was okay with trailing Klonopin for the patient. 4. Consider increasing Lamictal to address her depressive symptoms if they don't improve once her sleep improves. 5. Cardiology office will fax us the most recent EKG. Today Juan shares that she is getting about 7 hours of sleep since restarting the Ambien. Without the medication she struggles with headaches and depressive symptoms along with poor sleep. She is still concerned about feeling depressed. She tends to isolate and withdraw. She has been emotionally eating due to her depression and concerned about the associated weight gain. She tends to get irritable. We discussed increasing the Lamictal to 200 mg as she has been able to tolerate it without any side effects for her mood and irritability. Anxiety has improved with the combination of Lexapro and Clonazepam. Aware to take Clonazepam during the daytime and not close to the Ambien dose. Denies physical health concerns. Interval Progress: Slightly improved Risks and benefits of the medication, including any black box warnings, were discussed with the patient. Social History: See HPI PATIENT DATA: Generalized Anxiety Disorder Scale (ELKIN-7) ELKIN - 7 SCORES 06/16/2022 08/22/2022 ELKNI-7 Score 11 5 (0-4) minimal anxiety, (5-9) mild anxiety, (10-14) moderate anxiety, (15-21) severe anxiety Patient Health Questionnaire (PHQ-9) PHQ-9 12/02/2021 06/16/2022 08/22/2022 Score 19 17 11 (0-4) minimal depression, (5-9) mild depression, (10-14) moderate depression, (15-19) moderately severe depression, (20-27) severe depression ROS: See HPI General: Negative for fever, malaise, unintentional weight loss HEENT: Negative for recent changes in vision or hearing, no nasal drainage Respiratory: Negative for cough, wheezing or SOB Cardiovascular: Negative for chest pain GI: Negative for nausea, vomiting, change in bowel habits MUSCULOSKELETAL: Negative for acute back or joint pain SKIN: Negative for rash NEURO: Negative for headaches, seizures, focal neurological deficits All other systems negative. VITAL SIGNS: BP Temp Pulse Resp SpO2 MENTAL STATUS EXAMINATION: Appearance: Appropriately groomed, appears stated age Behavior: Appropriately engaged Psychomotor: No psychomotor agitation Cognition Level of Consciousness: Awake and alert. No fluctuation in wakefulness. Orientation: Grossly oriented Memory: Intact Attention/Concentration: Good Fund of Knowledge: Able to demonstrate an awareness of current events. Mood: Euthymic Affect: Congruent to mood Speech/Language: Appropriate tone, prosody, garrett, phonetics, and syntax Thought Form: Goal-directed. No loosening of associations. Thought Content: No delusions noted or endorsed. Perceptual Disturbances: Did not appear to respond to auditory stimuli. Safety: Suicidal Ideations: No suicidal ideation, intent or plan. Homicidal Ideations: No homicidal ideation, intent or plan (more content not included)... [facility] 08-23-2022 Instructions Seda Quiroz APRN.CNP - 08/23/2022 8:29 AM EDT Aziza Pearson, It was good to meet and talk with you today. Below is a summary of the plan that we discussed during your appointment for reference. Of course, if you have any questions or concerns do not hesitate to reach out to me via a message or call. Best, Seda Quiroz APRN.CNP PLAN AND FOLLOW UP: YOU SHOULD SEEK IMMEDIATE MEDICAL ATTENTION AT THE NEAREST EMERGENCY DEPARTMENT OR BY CALLING 1, IF ANY OF THE FOLLOWING OCCURS: - New or worsening thoughts of harming yourself (suicidal thoughts) or others (homicidal thoughts) - Not feeling safe at home or worrying about your ability to remain safe at home If you are having thoughts of harming yourself or others, then you can: - Call the National Suicide Hotline at 7-684-HBMOOHK ( ) or 9-318-375-TALK (1749) - Text [employer]HOPE to 559874 Medication Update: Lamictal 200 mg - take 1 tablet once daily. Continue the other psychiatric medications at the same dose. Next appointment: September 20 at 10:30 am Virtual -- Please call my nurse Michelle at [phone] or send me a message in [employer] with any questions or concerns between appointments. documented in this encounter [facility] 08-23-2022 History of Presen t illness Narrative Images from the original note were not included. PSYC FOLLOW UP - PSYCHIATRIC PROGRESS NOTE DIAGNOSIS: Bipolar affective disorder, most recent episode depressed Panic disorder with agoraphobia PTSD Tardive Dyskinesia GAF: -60-51 Moderate symptoms or moderate difficulty in social, occupational or school functioning. TREATMENT PLAN: Increase Lamictal to address depressive symptoms. Continue Ambien, Klonopin, and Lexapro at the same dose. Follow up in 4 weeks. Medication Update: Lamictal 200 mg - take 1 tablet once daily. Continue the other psychiatric medications at the same dose. The effects and side effects of all the medications were reviewed in detail with the patient. She is aware of the rash side effect associated with Lamictal. Patient is in agreement with the treatment plan and aware to reach out with any questions, concerns, or worsening of symptoms prior to the next appointment. PDMP report was reviewed and found to be appropriate without any signs of misuse or diversion. CC: Follow up regarding mood, anxiety, and TD With the patient consent, visit was performed virtually. I have communicated my name and active licensure. The patient's identity and physical location were verified at the time of this visit. Either the patient or their legal order entry representative has been informed of the risks and benefits of -- and alternatives to -- treatment through a remote evaluation and consents to proceed with the evaluation remotely. HPI: Juan Eagle is a 57 year old Female with a history of Bipolar disorder, Panic disorder, PTSD, and TD presenting today for follow-up. Date of last visit: 06/22/2022 Plan from last visit: 1. Restart Ambien to help with her sleep difficulties. 2. Okay to continue Lexapro and Lamictal at the same dose. 3. Explosive Specialist Dr. Savage consulted about restarting benzodiazepines. He was okay with trailing Klonopin for the patient. 4. Consider increasing Lamictal to address her depressive symptoms if they don't improve once her sleep improves. 5. Cardiology office will fax us the most recent EKG. Today Juan shares that she is getting about 7 hours of sleep since restarting the Ambien. Without the medication she struggles with headaches and depressive symptoms along with poor sleep. She is still concerned about feeling depressed. She tends to isolate and withdraw. She has been emotionally eating due to her depression and concerned about the associated weight gain. She tends to get irritable. We discussed increasing the Lamictal to 200 mg as she has been able to tolerate it without any side effects for her mood and irritability. Anxiety has improved with the combination of Lexapro and Clonazepam. Aware to take Clonazepam during the daytime and not close to the Ambien dose. Denies physical health concerns. Interval Progress: Slightly improved Risks and benefits of the medication, including any black box warnings, were discussed with the patient. Social History: See HPI PATIENT DATA: Generalized Anxiety Disorder Scale (ELKIN-7) ELKIN - 7 SCORES 06/16/2022 08/22/2022 ELKIN-7 Score 11 5 (0-4) minimal anxiety, (5-9) mild anxiety, (10-14) moderate anxiety, (15-21) severe anxiety Patient Health Questionnaire (PHQ-9) PHQ-9 12/02/2021 06/16/2022 08/22/2022 Score 19 17 11 (0-4) minimal depression, (5-9) mild depression, (10-14) moderate depression, (15-19) moderately severe depression, (20-27) severe depression ROS: See HPI General: Negative for fever, malaise, unintentional weight loss HEENT: Negative for recent changes in vision or hearing, no nasal drainage Respiratory: Negative for cough, wheezing or SOB Cardiovascular: Negative for chest pain GI: Negative for nausea, vomiting, change in bowel habits MUSCULOSKELETAL: Negative for acute back or joint pain SKIN: Negative for rash NEURO: Negative for headaches, seizures, focal neurological deficits All other systems negative. VITAL SIGNS: BP Temp Pulse Resp SpO2 MENTAL STATUS EXAMINATION: Appearance: Appropriately groomed, appears stated age Behavior: Appropriately engaged Psychomotor: No psychomotor agitation Cognition Level of Consciousness: Awake and alert. No fluctuation in wakefulness. Orientation: Grossly oriented Memory: Intact Attention/Concentration: Good Fund of Knowledge: Able to demonstrate an awareness of current events. Mood: Euthymic Affect: Congruent to mood Speech/Language: Appropriate tone, prosody, garrett, phonetics, and syntax Thought Form: Goal-directed. No loosening of associations. Thought Content: No delusions noted or endorsed. Perceptual Disturbances: Did not appear to respond to auditory stimuli. Safety: Suicidal Ideations: No suicidal ideation, intent or plan. Homicidal Ideations: No homicidal ideation, intent or plan. Insight: Appropriate Judgment: Appropriate I spent a total of 28 minutes on the date of the service which included preparing to see the patient, [id number] patient care, completing clinical documentation, and counseling and educating the patient/family/caregiver, ordering medications/labs. Seda Quiroz APRN.CNP August 23, 2022 8:03 AM This note was partially generated using [email or web address] voice recognition system. Note was reviewed for accuracy. There may be minor misspellings or grammar miscues with Dragon voice recognition. documented in this encounter [facility] 07-20-2022 Note HNO ID: [id number] Author: FLASH Caceres Service: ? Author Type: Respiratory Therapist Type: Progress Notes Filed: 07/20/2022 3:28 PM Note Text: PULM FUNCTION SMARTBLOCK: Provider: Talia Dias MD Assisting Tech: FLASH Caceres Spirometry: 1 [facility] 07-20-2022 History of Presen t illness Narrative PULM FUNCTION SMARTBLOCK: Provider: Talia Dias MD Assisting Tech: FLASH Caceres Spirometry: 1 documented in this encounter [facility] 07-19-2022 Note HNO ID: [id number] Author: Talia Dias MD Service: ? Author Type: Physician Type: Progress Notes Filed: 07/19/2022 4:06 PM Note Text: . Respiratory Backus Note Patient name: Juan Eagle PCP: Jericho Tinoco MD CC: Shortness of breath HPI: Juan Eagle 57 year old morbidly obese female current [id number] smoker with PMH significant for GERD, HLD, JOSE on CPAP, DM2, psoriatic arthritis and asthma, former patient of Dr. Christensen, new to me. Current therapy consists of Breo Ellipta and as needed albuterol. No issues with her Breo Ellipta. Has had relatively good control of her asthma until recently. Status post TX at the end of March, coded 3 times, s/p 4 stents. Since starting Brilinta has noted more shortness of breath. No wheezes, sputum or cough. No recent upper respiratory infection. Shortness of breath is not necessarily associated with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 Fibrillation (Hcc) Ischemic Cardiomyopathy PAST SURGICAL HISTORY Procedure Laterality Date ANTERIOR DISKECTOMY, CERVICAL, EACH ADDL 05/30/2019 ACDF C5-6 - anterior cervical discectomy and arthrodesis ARTHRP KNE CONDYLE&PLATU MEDIAL&LAT COMPARTMENTS Left 01/14/2018 COLONOSCOPY AND BIOPSY 09/02/2017 Dr. ivet HAGER 01/23/2021 KNEE ARTHROSCOP MENISCUS REPAIR MED/LAT Left 06/22/2016 partial medial meniscectomy LUMBAR OR CAUDAL EPIDURAL INJECTION 01/2017 multiple since 2014. NEUROPLASTY &/TRANSPOS MEDIAN NRV CARPAL TUNNE Left 08/30/2009 [facility] PAST SURGICAL HISTORY OF 05/30/2019 C5-[address] Grace Long S PROBE PERC LUMBAR DISCECTOMY 04/2000 [facility] Social History Tobacco Use Smoking status: Every Day Packs/day: 1.00 Years: 40.00 Pack years: 40.00 Types: Cigarettes Start date: 1981 Smokeless tobacco: Never Tobacco comments: from age 16 Vaping Use Vaping Use: Never used Substance Use Topics Alcohol use: Yes Comment: rare 1 drink Drug use: No Current Outpatient Medications Medication Sig dulaglutide (TRULICITY) 0.75 mg/0.5 mL pen injector Inject 0.75 mg subcutaneously one time a week. Inject dose once per week. Discard Pen After fluticasone-vilanterol (BREO ELLIPTA) 200-25 mcg/dose inhaler Inhale 1 Inhalation as instructed once daily. Adalimumab (HUMIRA PEN) 40 mg/0.8 mL Inject 40 mg subcutaneously every other week. amitriptyline (ELAVIL) 25 mg tablet Take 1 tablet by mouth daily at bedtime. ALPRAZolam (XANAX) 1 mg tablet Take 1 tablet by mouth twice daily. [facility]. zolpidem (AMBIEN) 10 mg Take 1 tablet by mouth at bedtime as needed (insomnia). Per [facility]. lansoprazole (PREVACID) 30 mg capsule Take 1 capsule by mouth once daily. folic acid 1 mg tablet Take 1 mg by mouth once daily. methotrexate 2.5 mg tablet Take 6 tablets by mouth one time a week. fluticasone (FLONASE) 50 mcg/actuation nasal spray Use 2 Sprays in each nostril once daily. albuterol HFA (PROVENTIL HFA, VENTOLIN HFA) 90 mcg/actuation inhaler Inhale 2 Puffs as instructed every 4 hours as needed. escitalopram oxalate (LEXAPRO) 20 mg tablet Take 1 tablet by mouth once daily. CPAP Mask (per patient preference) optional chin strap (if indicated) , filters, tubing, humidifier and lifetime supplies. diclofenac sodium (VOLTAREN) 1 % topical gel Apply 2 g to affected area four times daily. LYRICA 75 mg capsule Take 1 capsule by mouth twice daily. hydrOXYzine pamoate (VISTARIL) 50 mg capsule Take 1 capsule by mouth twice daily. lamoTRIgine (LAMICTAL) 150 mg tablet Take 1 tablet by mouth once daily. buprenorphine (BUTRANS) 10 mcg/hour Apply 1 Patch as directed one time a week. Per Pain Management. aspirin, enteric coated (ASPIRIN, ENTERIC COATED) 81 mg EC tablet Take 1 tablet by mouth once daily. atorvastatin (LIPITOR) 40 mg tablet Take 1 tablet by mouth daily at bedtime. For cholesterol. carvedilol (COREG) 6.25 mg tablet Take 1 tablet by mouth twice daily. hydroCHLOROthiazide (HYDRODIURIL, ESIDRIX) 25 mg tablet Take 1 tablet by mouth once daily. losartan (COZAAR) 50 mg tablet Take 1 tablet by mouth once daily. nitroglycerin sublingual (NITROQUICK) 0.4 mg SL tablet Dissolve 1 tablet under the tongue every 5 minutes as needed for chest pain. ticagrelor (BRILINTA) 90 mg tablet Take 1 tablet by mouth twice daily. nicotine (NICODERM) 21 mg/24 hr Apply 1 Patch as directed every 24 hours for 28 days. [START ON 05/09/2022] nicotine (NICODERM) 14 mg/24 hr Apply 1 Patch as directed every 24 hours for 28 days. No smoking with patch. nicotine polacrilex (NICORETTE) 2 mg gum Take 1 Each by mouth every 2 hours as needed. No current facility-administered medications for this visit. MEDICATIONS NEED RECONCILED. Review of Systems Constitutional: Negative for chills, diaphoresis and fever. HENT: Negative. Respiratory: Negative for cough, shortness of breath and wheezing. Cardiovascular: Negative for chest pain, palpitations and leg swelling. Gastrointestinal: Negative. Neurological: Negative for dizziness, light-headedness and headaches. Objective BP 94/64 Pulse 69 Resp 20 Wt 118.8 kg (262 lb) SpO2 98% BMI 48.70 kg/m Physical Exam Constitutional: General: She is not in acute distress. Appearance: She is obese. She is not diaphoretic. HENT: Head: Normocephalic. Eyes: Conjunctiva/sclera: Conjunctivae normal. Cardiovascular: Rate and Rhythm: Normal rate and regular rhythm. Pulmonary: Effort: No respiratory distress. Breath sounds: No wheezing or rales. Abdominal: Palpations: Abdomen is soft. Tenderness: There is no abdominal tenderness. Musculoskeletal: Right lower leg: No edema. Left lower leg: No edema. Neurological: General: No focal deficit present. Mental Status: She is alert. Gait: Gait normal. Psychiatric: Mood and Affect: Mood normal. Assessment and Plan 1. ST elevation myocardial infarction involving left circumflex coronary artery (HCC) - ICD9: 410.81, ICD10: I21.21 (primary diagnosis) - Continue medications. She sees Dr. Savage for cardiology follow up in 1 month. 2. Ventricular fibrillation (HCC) - ICD9: 427.41, ICD10: I49.01 - In the setting of acute TX. 3. Coronary artery disease involving marshall coronary artery of marshall heart without angina pectoris - ICD9: 414.01, ICD10: I25.10 S/p PCI, YADIEL. 4. Ischemic cardiomyopathy - ICD9: 414.8, ICD10: I25.5 Per cardiology. 5. Mixed hyperlipidemia - ICD9: 272.2, ICD10: E78.2 - to be determined upon return of lab results 6. Type 2 diabetes mellitus with stage 3a chronic kidney disease, without long-term current use of insulin (HCC) - ICD9: 250.40, 585.3, ICD10: E11.22, N18.31 Controlled. - Continue current medications 7. Tobacco use disorder - ICD9: 305.1, ICD10: F17.200 - Cessation encouraged. - Prescription for Nicotine replacement given - NICOTINE 21 MG/24 HR DAILY TRANSDERMAL PATCH - NICOTINE 14 MG/24 HR DAILY TRANSDERMAL PATCH - NICOTINE (POLACRILEX) 2 MG GUM Patient indicated understanding and willingness to follow recommendations. Jericho Tinoco MD documented in this encounter [facility] documented as of this encounter (statuses as of 08/29/2022) [facility]12-[facility]2022 History of Past illness Narrative* Problem Noted Date Diagnosed Date Resolved Date Ventricular fibrillation 04/11/2022 Helicobacter pylori gastritis 01/24/2021 12/02/2021 BMI 45.0-49.9, adult 01/25/2020 021 Cord compression 05/29/2019 12/02/2021 Intractable pain 05/28/2019 12/02/2021 Thumb tendonitis 01/20/2016 02/20/2017 Osteoarthritis of lumbar spine 12/05/2015 02/20/2017 Pain in joint, multiple sites 05/26/2015 11/30/2021 Depression 04/11/2015 08/10/2017 Low back pain 04/11/2015 02/20/2017 Gastroesophageal reflux dise ase without esophagitis 04/11/2015 12/16/2019 documented as of this encounter (statuses as of 11/12/2022) [facility] History of Past illness Narrative* Problem Noted Date Diagnosed Date Resolved Date Ventricular fibrillation 04/11/2022 Helicobacter pylori gastritis 01/24/2021 12/02/2021 BMI 45.0-49.9, adult 01/25/2020 021 Cord compression 05/29/2019 12/02/2021 Intractable pain 05/28/2019 12/02/2021 Thumb tendonitis 01/20/2016 02/20/2017 Osteoarthritis of lumbar spine 12/05/2015 02/20/2017 Pain in joint, multiple sites 05/26/2015 11/30/2021 Depression 04/11/2015 08/10/2017 Low back pain 04/11/2015 02/20/2017 Gastroesophageal reflux dise ase without esophagitis 04/11/2015 12/16/2019 documented as of this encounter (statuses as of 11/16/2022) [facility] History of Past illness Narrative* Problem Noted Date Diagnosed Date Resolved Date Ventricular fibrillation 04/11/2022 Helicobacter pylori gastritis 01/24/2021 12/02/2021 BMI 45.0-49.9, adult 01/25/2020 021 Cord compression 05/29/2019 12/02/2021 Intractable pain 05/28/2019 12/02/2021 Thumb tendonitis 01/20/2016 02/20/2017 Osteoarthritis of lumbar spine 12/05/2015 02/20/2017 Pain in joint, multiple sites 05/26/2015 11/30/2021 Depression 04/11/2015 08/10/2017 Low back pain 04/11/2015 02/20/2017 Gastroesophageal reflux dise ase without esophagitis 04/11/2015 12/16/2019 documented as of this encounter (statuses as of 12/05/2022) [facility] History of Past illness Narrative* Problem Noted Date Diagnosed Date Resolved Date Ventricular fibrillation 04/11/2022 Helicobacter pylori gastritis 01/24/2021 12/02/2021 BMI 45.0-49.9, adult 01/25/2020 11/15/2 021 Cord compression 05/29/2019 12/02/2021 Intractable pain 05/28/2019 12/02/2021 Thumb tendonitis 01/20/2016 02/20/2017 Osteoarthritis of lumbar spine 12/05/2015 02/20/2017 Pain in joint, multiple sites 05/26/2015 11/30/2021 Depression 04/11/2015 08/10/2017 Low back pain 04/11/2015 02/20/2017 Gastroesophageal reflux dise ase without esophagitis 04/11/2015 12/16/2019 documented as of this encounter (statuses as of 01/15/2023) [facility] History of Past illness Narrative* Problem Noted Date Diagnosed Date Resolved Date Ventricular fibrillation 04/11/2022 Helicobacter pylori gastritis 01/24/2021 12/02/2021 BMI 45.0-49.9, adult 01/25/2020/15/2 021 Cord compression 05/29/2019 12/02/2021 Intractable pain 05/28/2019 12/02/2021 Thumb tendonitis 01/20/2016 02/20/2017 Osteoarthritis of lumbar spine 12/05/2015 02/20/2017 Pain in joint, multiple sites 05/26/2015 11/30/2021 Depression 04/11/2015 08/10/2017 Low back pain 04/11/2015 02/20/2017 Gastroesophageal reflux dise ase without esophagitis 04/11/2015 12/16/2019 documented as of this encounter (statuses as of 01/15/2023) [facility] History of Past illness Narrative* Problem Noted Date Diagnosed Date Resolved Date Ventricular fibrillation 04/11/2022 Helicobacter pylori gastritis 01/24/2021 12/02/2021 BMI 45.0-49.9, adult 01/25/2020 021 Cord compression 05/29/2019 12/02/2021 Intractable pain 05/28/2019 12/02/2021 Thumb tendonitis 01/20/2016 02/20/2017 Osteoarthritis of lumbar spine 12/05/2015 02/20/2017 Pain in joint, multiple sites 05/26/2015 11/30/2021 Depression 04/11/2015 08/10/2017 Low back pain 04/11/2015 02/20/2017 Gastroesophageal reflux dise ase without esophagitis 04/11/2015 12/16/2019 documented as of this encounter (statuses as of 01/21/2023) [facility] History of Past illness Narrative* Problem Noted Date Diagnosed Date Resolved Date Ventricular fibrillation 04/11/2022 Helicobacter pylori gastritis 01/24/2021 12/02/2021 BMI 45.0-49.9, adult 01/25/2020 021 Cord compression 05/29/2019 12/02/2021 Intractable pain 05/28/2019 12/02/2021 Thumb tendonitis 01/20/2016 02/20/2017 Osteoarthritis of lumbar spine 12/05/2015 02/20/2017 Pain in joint, multiple sites 05/26/2015 11/30/2021 Depression 04/11/2015 08/10/2017 Low back pain 04/11/2015 02/20/2017 Gastroesophageal reflux dise ase without esophagitis 04/11/2015 12/16/2019 documented as of this encounter (statuses as of 02/09/2023) [facility] History of Past illness Narrative* Problem Noted Date Diagnosed Date Resolved Date Ventricular fibrillation 04/11/2022 Helicobacter pylori gastritis 01/24/2021 12/02/2021 BMI 45.0-49.9, adult 01/25/2020 021 Cord compression 05/29/2019 12/02/2021 Intractable pain 05/28/2019 12/02/2021 Thumb tendonitis 01/20/2016 02/20/2017 Osteoarthritis of lumbar spine 12/05/2015 02/20/2017 Pain in joint, multiple sites 05/26/2015 11/30/2021 Depression 04/11/2015 08/10/2017 Low back pain 04/11/2015 02/20/2017 Gastroesophageal reflux dise ase without esophagitis 04/11/2015 12/16/2019 documented as of this encounter (statuses as of 02/13/2023) [facility] History of Past illness Narrative* Problem Noted Date Diagnosed Date Resolved Date Ventricular fibrillation 04/11/2022 Helicobacter pylori gastritis 01/24/2021 12/02/2021 BMI 45.0-49.9, adult 01/25/202015/2 021 Cord compression 05/29/2019 12/02/2021 Intractable pain 05/28/2019 12/02/2021 Thumb tendonitis 01/20/2016 02/20/2017 Osteoarthritis of lumbar spine 12/05/2015 02/20/2017 Pain in joint, multiple sites 05/26/2015 11/30/2021 Depression 04/11/2015 08/10/2017 Low back pain 04/11/2015 02/20/2017 Gastroesophageal reflux dise ase without esophagitis 04/11/2015 12/16/2019 documented as of this encounter (statuses as of 02/20/2023) [facility] History of Past illness Narrative* Problem Noted Date Diagnosed Date Resolved Date Ventricular fibrillation 04/11/2022 Helicobacter pylori gastritis 01/24/2021 12/02/2021 BMI 45.0-49.9, adult 01/25/202015/2 021 Cord compression 05/29/2019 12/02/2021 Intractable pain 05/28/2019 12/02/2021 Thumb tendonitis 01/20/2016 02/20/2017 Osteoarthritis of lumbar spine 12/05/2015 02/20/2017 Pain in joint, multiple sites 05/26/2015 11/30/2021 Depression 04/11/2015 08/10/2017 Low back pain 04/11/2015 02/20/2017 Gastroesophageal reflux dise ase without esophagitis 04/11/2015 12/16/2019 documented as of this encounter (statuses as of 03/06/2023) [facility] History of Past illness Narrative* Problem Noted Date Diagnosed Date Resolved Date Ventricular fibrillation 04/11/2022 Helicobacter pylori gastritis 01/24/2021 12/02/2021 BMI 45.0-49.9, adult 01/25/2020 021 Cord compression 05/29/2019 12/02/2021 Intractable pain 05/28/2019 12/02/2021 Thumb tendonitis 01/20/2016 02/20/2017 Osteoarthritis of lumbar spine 12/05/2015 02/20/2017 Pain in joint, multiple sites 05/26/2015 11/30/2021 Depression 04/11/2015 08/10/2017 Low back pain 04/11/2015 02/20/2017 Gastroesophageal reflux dise ase without esophagitis 04/11/2015 12/16/2019 documented as of this encounter (statuses as of 03/12/2023) [facility] History of Past illness Narrative* Problem Noted Date Diagnosed Date Resolved Date Ventricular fibrillation 04/11/2022 Helicobacter pylori gastritis 01/24/2021 12/02/2021 BMI 45.0-49.9, adult 01/25/2020 021 Cord compression 05/29/2019 12/02/2021 Intractable pain 05/28/2019 12/02/2021 Thumb tendonitis 01/20/2016 02/20/2017 Osteoarthritis of lumbar spine 12/05/2015 02/20/2017 Pain in joint, multiple sites 05/26/2015 11/30/2021 Depression 04/11/2015 08/10/2017 Low back pain 04/11/2015 02/20/2017 Gastroesophageal reflux dise ase without esophagitis 04/11/2015 12/16/2019 documented as of this encounter (statuses as of 03/20/2023) [facility] History of Past illness Narrative* Problem Noted Date Diagnosed Date Resolved Date Ventricular fibrillation 04/11/2022 Helicobacter pylori gastritis 01/24/2021 12/02/2021 BMI 45.0-49.9, adult 01/25/2020 021 Cord compression 05/29/2019 12/02/2021 Intractable pain 05/28/2019 12/02/2021 Thumb tendonitis 01/20/2016 02/20/2017 Osteoarthritis of lumbar spine 12/05/2015 02/20/2017 Pain in joint, multiple sites 05/26/2015 11/30/2021 Depression 04/11/2015 08/10/2017 Low back pain 04/11/2015 02/20/2017 Gastroesophageal reflux dise ase without esophagitis 04/11/2015 12/16/2019 documented as of this encounter (statuses as of 04/08/2023) [facility] History of Past illness Narrative* Problem Noted Date Diagnosed Date Resolved Date Ventricular fibrillation 04/11/2022 Helicobacter pylori gastritis 01/24/2021 12/02/2021 BMI 45.0-49.9, adult 01/25/2020 021 Cord compression 05/29/2019 12/02/2021 Intractable pain 05/28/2019 12/02/2021 Thumb tendonitis 01/20/2016 02/20/2017 Osteoarthritis of lumbar spine 12/05/2015 02/20/2017 Pain in joint, multiple sites 05/26/2015 11/30/2021 Depression 04/11/2015 08/10/2017 Low back pain 04/11/2015 02/20/2017 Gastroesophageal reflux dise ase without esophagitis 04/11/2015 12/16/2019 documented as of this encounter (statuses as of 05/20/2023) [facility] History of Present illness Narrative* Brigette Fregoso LPN - 04/09/2022 3:16 PM EST TRANSITION CARE MANAGEMENT (TCM) INITIAL CONTACT [employer] Professor Outreach Provider Action/FYI: Apt has been scheduled Initial contact with patient post discharge, spoke to patient. Patient identified by name and . TRANSITION CARE MANAGEMENT INITIAL OUTREACH DOCUMENTATION: Date of Outreach: 04/09/2022 Outreach Attempt 1: Contact Made Date of Discharge 04/06/2022 Some recent data might be hidden SUMMARY: -Pt discharged from [facility] on 04/06/22. -Admitted for: heart attack Do you have a hospital follow up appointment with your PCP? Appointment on 04/11/[address] Tinoco. No need to contact pt regarding apt. Spoke with pt and apt was scheduled. MEDICATIONS: Many patients have questions or concerns about their medications once they are home. Were you prescribed any new medications? If yes, what are those medications? Carvedilol 6.25 mg take (1) twice a day Atorvastatin 40 mg take (1) at bedtime Aspirin AC 81 mg take (1) at 8 am Brilinta 90 mg take (1) daily Losartan potassium 50 mg take (1) per day Folic Acid 1 mg take (1) daily HCTZ 25 mg take (1) daily Nitroglycerin 0.4 mg take if having chest pain may repeat every 5 minutes as needed Were you told to hold any medications? No Were any of your medications discontinued? No Do you have any questions about getting or taking your medications? No Your discharge instructions/After visit Summary (AVS) are important in guiding you through the recovery process. Is there anything I might help you understand? No Do you have all the necessary equipment and supplies at home? Yes Medical records from recent hospitalization: [facility] has records if not received [facility] Patient Education 03/08/2022 15:44:38 HERPES ZOSTER Shingles Anyone who has had chicken pox may get shingles later in life. It is caused by the same virus that has remained dormant (asleep) in your body. Shingles usually occurs in adults over the age of 50 or those with lowered immunity (cancer treatment, prolonged steroid use, HIV or AIDS). It starts as a tingling patch of skin on one side of the body. During the first several days small painful blisters appear in this area. However, unlike chicken pox the rash does not spread to the rest of the body. The blister fluid contains the virus. Exposure to shingles cannot cause shingles. However, it can cause chicken pox in anyone who has never had chicken pox before. The contagious period ends when all blisters have crusted over (usually about two weeks after the illness begins). Scarring may occur where the blisters appear. Sometimes there is continued sensitivity and pain in the involved patch of skin for months after the infection (neuralgia). Persons older than 50 or those with a weakened immune system may be treated with antiviral medicines to reduce pain, shorten the i llness and prevent neuralgia. Zostavax is a vaccine that can help prevent shingles or make it less painful. It is recommended foradults over the age of 60 who have had chicken pox in the past, but not shingles. Adults over 60 who have had neither chicken pox nor shingles can prevent both diseases with a Varicella vaccine. Home Care: You may use acetaminophen (Tylenol) or ibuprofen (Motrin, Advil) to control pain, unless another medicine was prescribed. [NOTE: If you have chronic liver or kidney disease or ever had a stomach ulcer or GI bleeding, talk with your doctor before using these medicines.] (Aspirin should never be usedin anyone under 18 years of age who is ill with a fever. It may cause severe liver damage.) To relieve itching and pain, make a solution of cool water mixed with cornstarch, baking soda, Aveeno Oatmeal, or Domeboro powder (available without a prescription). Apply the solution as a compress to the area. This will soothe the skin. Calamine or Caladryl lotion may help. Oral Benadryl (diphenhydramine) is an antihistamine available at drug and grocery stores. Unless a prescription antihistamine was given, Benadryl may be used to reduce itching if large areas of the skin are involved. Use lower doses during the daytime and higher doses at bedtime since the drug may make you sleepy. [NOTE: Do not use Benadryl if you have glaucoma or if you are a man with trouble urinating due to an enlarged prostate.] Claritin (loratidine) is an antihistamine that causes less drowsiness and is a good alternative for daytime use. Wash skin with soap and water to keep rash free of infection. Trim fingernails to prevent scratching. Scratching the sores may leave scars. Stay home from work or school until all blisters have formed a crust and you are no longer contagious. Follow Up with your doctor or as directed by our staff if the above measures do not bring relief. GET PROMPT MEDICAL ATTENTION if any of the following occur: Headache or stiff neck Increasing drowsiness, confusion or bizarre behavior Cough with trouble breathing or fast breathing (over 25 breaths per minute) Pain, redness or swelling of a joint Fever of 100.4 F (38 C) or higher, or as directed by your healthcare provider Eye pain or changes in vision or sores that appear near the eye Signs of skin infection (yellow or white drainage from the sores, increasing redness or pain) Weakness or numbness of an arm or leg Difficulty speaking, swallowing or walking Seizure [id number] [employer]. [address] [place] [address], [place] [address]. All rights reserved. This information is not intended as a substitute for professional medical care. Always follow yourhealthcare professional's instructions. Follow Up Care 03/08/2022 15:34:05 With:JERICHO TINOCO MD Address: [address] [place] [address]- When:2-4 days [facility] 11-03-2022 Emergency department Discharge summary Discharge Instructions Thank you for allowing [facility] to assist you with your healthcare needs. The following is importantdischarge information regarding your hospital visit. Diagnosis from Today's Visit Shingles Rash What to Do Next Instructions from Your Care Team No qualifying data available. Post Acute Orders No qualifying data available. You Need to Schedule the Following Appointments Follow Up with JERICHO TINOCO MD When Within 2-4 days Where: [address] [place], [place] [id number]- Allergies Dilaudid Percocet 5/325 SEROquel codeine traMADol Medications Please ask your primary doctor or pharmacist before taking any other medication not listed, including over the counter drugs, herbal medications, vitamins and or supplements as they may interact withyour home medications. What How Much When Why Instructions Last Dose New acyclovir (acyclovir 800 mg oral tablet) 1 tab(s) by mouth 5 times a day Shingles Duration: 7 Days Printed Prescription Changed acetaminophen-hydrocodone (Lee 325- 5 mg oral tablet) 1 tab(s) by mouth Two (2) times a day Changed acetaminophen-hydrocodone (Lee 325- 5 mg oral tablet) 1 tab(s) by mouth Every 6 hours as needed for as needed for pain Shingles Duration: 5 Days Printed Prescription Unchanged ALPRAZolam (ALPRAZolam 0.5 mg oral tablet) 1 tab(s) by mouth Two (2) times a day Unchanged amitriptyline (amitriptyline 25 mg oral tablet) 1 tab(s) by mouth Every day Unchanged escitalopram (escitalopram 20 mg oral tablet) 1 tab(s) by mouth Once a day Unchanged lamoTRIgine (lamoTRIgine 200 mg oral tablet) 1 tab(s) by mouth Once a day Unchanged meloxicam (meloxicam 15 mg oral tablet) 1 tab(s) by mouth Once a day Unchanged pravastatin 20 Milligram by mouth Once a day Unchanged pregabalin (pregabalin 75 mg oral capsule) 1 cap by mouth Two (2) times a day Unchanged valbenazine (Ingrezza 80 mg oral capsule) 1 cap by mouth Once a day Unchanged zolpidem (Ambien) 10 Milligram by mouth Daily at bedtime Please take this list to your next doctor s visit. Bring all medications you take, including over the counter medications, herbals and other supplements with you to your doctor s visit. Patients and families are reminded to discard old lists and to update any records with all medication providers or retail pharmacies. Education Materials Shingles Anyone who has had chicken pox may get shingles later in life. It is caused by the same virus that has remained dormant (asleep) in your body. Shingles usually occurs in adults over the age of 50 or those with lowered immunity (cancer treatment, prolonged steroid use, HIV or AIDS). It starts as a tingling patch of skin on one side of the body. During the first several days small painful blisters appear in this area. However, unlike chicken pox the rash does not spread to the rest of the body. The blister fluid contains the virus. Exposure to shingles cannot cause shingles. However, it can cause chicken pox in anyone who has never had chicken pox before. The contagious period ends when all blisters have crusted over (usually about two weeks after the illness begins). Scarring may occur where the blisters appear. Sometimes there is continued sensitivity and pain in the involved patch of skin for months after the infection (neuralgia). Persons older than 50 or those with a weakened immune system may be treated with antiviral medicines to reduce pain, shorten the i llness and prevent neuralgia. Zostavax is a vaccine that can help prevent shingles or make it less painful. It is recommended foradults over the age of 60 who have had chicken pox in the past, but not shingles. Adults over 60 who have had neither chicken pox nor shingles can prevent both diseases with a Varicella vaccine. Home Care: You may use acetaminophen (Tylenol) or ibuprofen (Motrin, Advil) to control pain, unless another medicine was prescribed. [NOTE: If you have chronic liver or kidney disease or ever had a stomach ulcer or GI bleeding, talk with your doctor before using these medicines.] (Aspirin should never be usedin anyone under 18 years of age who is ill with a fever. It may cause severe liver damage.) To relieve itching and pain, make a solution of cool water mixed with cornstarch, baking soda, Aveeno Oatmeal, or Domeboro powder (available without a prescription). Apply the solution as a compress to the area. This will soothe the skin. Calamine or Caladryl lotion may help. Oral Benadryl (diphenhydramine) is an antihistamine available at drug and grocery stores. Unless a prescription antihistamine was given, Benadryl may be used to reduce itching if large areas of the skin are involved. Use lower doses during the daytime and higher doses at bedtime since the drug may make you sleepy. [NOTE: Do not use Benadryl if you have glaucoma or if you are a man with trouble urinating due to an enlarged prostate.] Claritin (loratidine) is an antihistamine that causes less drowsiness and is a good alternative for daytime use. Wash skin with soap and water to keep rash free of infection. Trim fingernails to prevent scratching. Scratching the sores may leave scars. Stay home from work or school until all blisters have formed a crust and you are no longer contagious. Follow Up with your doctor or as directed by our staff if the above measures do not bring relief. GET PROMPT MEDICAL ATTENTION if any of the following occur: Headache or stiff neck Increasing drowsiness, confusion or bizarre behavior Cough with trouble breathing or fast breathing (over 25 breaths per minute) Pain, redness or swelling of a joint Fever of 100.4 F (38 C) or higher, or as directed by your healthcare provider Eye pain or changes in vision or sores that appear near the eye Signs of skin infection (yellow or white drainage from the sores, increasing redness or pain) Weakness or numbness of an arm or leg Difficulty speaking, swallowing or walking Seizure [id number] [employer]. [address] [place], [place] [address]. All rights reserved. This information is not intended as a substitute for professional medical care. Always follow yourhealthcare professional's instructions. Additional Information VACCINATE! IT SAVES LIVES! Members of the community who have not yet received the COVID-19 vaccine and would like to receive it can visit one of [facility] vaccine clinics. There are many vaccine clinic locations within the [facility]. For locations and available times, please visit [email or web address]. It is important to note that some COVID mobile vaccine clinics are held outdoors and may be canceled in rainy orstormy conditions. To learn more about pediatric vaccinations (ages 5-11), we invite you to visit the [facility] webpage. [email or web address] learn more about the COVID-19 vaccine, we invite you to visit the [facility] website for a list of frequently asked questions. [email or web address] [facility] Patient Portal Access Instructions: Stay connected with your healthcare team and access your personal medical information anytime with the [facility] Patient Portal. If you would like a full copy of your medical records please contact the [facility] Medical Records Department Saturday through Saturday between 8a.m. and 4:30p.m. Please follow the directions below to access the portal: 1.Access the email account you provided upon registration to the [facility].2.Look for an invitation email from [facility].3.Open the email and access the invitation link: Accept Invitation to [facility].Fill in the required alamo to create your account. Sign into www.[facility] with your username and password that you created in the above steps to stay up to date. You can then view a summary of results, a summary of your visits, and the ability to download your summaries to your computer or send the information securely to a physician. Remember that your healthcare information is confidential, so carefully consider who you will allow to register on the [facility] Patient Portal for access to your information. You can also access the [facility] [employer] Patient Portal on the [employer] dasha. Simply click on Health Records under [employer] and then click on the [employer] logo. HOW TO SAFELY DISPOSE OF PRESCRIPTION MEDICATIONS Please use one of the following methods to safely dispose of your unused medications. 1.Use a drug disposal kit: the drug disposal pouch allows you to safely discard your old and unuseddrugs. Ask your nurse to give you one when you are discharged.2.Visit a local take-back location: Many local pharmacies and police departments have programs that collect old and unwanted prescriptiondrugs. Call your local pharmacy or go to [email or web address] to find one close to you.3.Make use of household items: Use cat litter or old coffee grounds to dispose medications if other options arenot available. Mix your drugs with these household products, seal them in an airtight container andthrow it into the garbage. Call [facility]: [phone] to be sure your drugs can be disposed of in this way. Some medicines may require a different approach.4.Never flush your medications down the toilet. IF YOU HAVE BEEN PRESCRIBED AN OPIOIDS FOR PAIN If you have been prescribed an opioid (such as hydrocodone, oxycodone or morphine), it is critical to understand the possible side effects and risks of opioid pain medications. Even when taken as directed, opioids can have several side effects including: Tolerance, meaning you might need to take more of a medication for the same pain relief. Nausea, vomiting and/or constipation. Sleepiness, dizziness, dry mouth, confusion, depression or itching. Physical dependence, meaning you have withdrawal symptoms when a medication is stopped ? this can develop within a few days. KNOW YOUR RESPONSIBILITIES It is important to know exactly how much and how often to take the opioid pain medications you are prescribed. Never take opioids in higher amounts or more often than prescribed. Do not combine opioids with alcohol or other drugs that cause drowsiness, such as benzodiazepines, also known as benzos,including diazepam and alprazolam, muscle relaxants or sleep aids. Never sell or share prescriptionopioids. This is illegal. Store opioids in a secure place and out of reach of others (including children, family, friends and visitors). The last page(s) of this document has been signed and retained as a CHART COPY Signatures Patient Education Materials [facility] Medication Leaflets My discharge plan and instructions have been reviewed and explained to me and I,JUAN EAGLE understand my current condition and have read and understand these discharge instructions. I have received a written copy of the plan/instructions. If I have questions, I am aware that I should contact my doctor. Patient/Consulting Psychologist Signature: Date/Time: Relationship to Patient: Witness Name/Signature: Date/Time: [facility]10-27-2022 History of Present illness Narrative * Jericho Tinoco MD - 03/01/2022 10:53 AM EDT This note was created using NoteWriter. Subjective Juan Eagle is a 57 year old female. Concern was CKD. DM was not treated due to hypoglycemia on metformin. Obesity was stable. Tremors were better and stable. Headaches were mild. Insomnia was ongoing despite sedatives from mental health. Review of Systems Constitutional: Negative. Respiratory: Negative. Cardiovascular: Negative. Gastrointestinal: Negative. Genitourinary: Negative. Neurological: Positive for tremors. Negative for headaches. ACTIVE PROBLEM LIST Panic Anxiety Syndrome Type 2 Diabetes Mellitus Without Complication (Hcc) Mixed Hyperlipidemia Jose On Cpap Radiculopathy, Lumbar Region Postlaminectomy Syndrome Ddd (Degenerative Disc Disease), Lumbar Edema Class 3 Severe Obesity With Body Mass Index (Bmi) of 50.0 to 59.9 in Adult (Hcc) Persistent Headaches S/P Cervical Spinal Fusion Tobacco Use Disorder Moderate Persistent Asthma Without Complication Psoriatic Arthritis (Hcc) Irritable Bowel Syndrome With Diarrhea Stage 3b Chronic Kidney Disease (Hcc) Current Outpatient Medications Medication Sig fluticasone-vilanterol (BREO ELLIPTA) 200-25 mcg/dose inhaler Inhale 1 Inhalation as instructed once daily. Adalimumab (HUMIRA PEN) 40 mg/0.8 mL Inject 40 mg subcutaneously every other week. buprenorphine 7.5 mcg/hour ptwk Apply 7.5 mg as directed one time a week. amitriptyline (ELAVIL) 25 mg tablet Take 1 tablet by mouth daily at bedtime. ALPRAZolam (XANAX) 1 mg tablet Take 1 tablet by mouth twice daily. [facility]. zolpidem (AMBIEN) 10 mg Take 1 tablet by mouth at bedtime as needed (insomnia). [facility]. lansoprazole (PREVACID) 30 mg capsule Take 1 capsule by mouth once daily. VIBERZI 100 mg tab Take 100 mg by mouth once daily. folic acid 1 mg tablet Take 1 mg by mouth once daily. methotrexate 2.5 mg tablet Take 6 tablets by mouth one time a week. fluticasone (FLONASE) 50 mcg/actuation nasal spray Use 2 Sprays in each nostril once daily. albuterol HFA (PROVENTIL HFA, VENTOLIN HFA) 90 mcg/actuation inhaler Inhale 2 Puffs as instructed every 4 hours as needed. escitalopram oxalate (LEXAPRO) 20 mg tablet Take 1 tablet by mouth once daily. triamcinolone (KENALOG) 0.025 % cream Apply 2 times a day to affected areas on face (Patient not taking: Reported on 01/18/2022) CPAP Mask (per patient preference) optional chin strap (if indicated) , filters, tubing, humidifierand lifetime supplies. diclofenac sodium (VOLTAREN) 1 % topical gel Apply 2 g to affected area four times daily. LYRICA 75 mg capsule Take 1 capsule by mouth twice daily. hydrOXYzine pamoate (VISTARIL) 50 mg capsule Take 1 capsule by mouth twice daily. lamoTRIgine (LAMICTAL) 150 mg tablet Take 1 tablet by mouth once daily. No current facility-administered medications for this visit. Objective BP 124/76 Pulse 69 Resp 14 Wt 120.2 kg (265 lb) SpO2 98% BMI 49.26 kg/m Physical Exam Constitutional: General: She is not in acute distress. Appearance: She is obese. HENT: Head: Normocephalic. Cardiovascular: Rate and Rhythm: Normal rate and regular rhythm. Pulmonary: Breath sounds: Normal breath sounds. Abdominal: Tenderness: There is no abdominal tenderness. Musculoskeletal: Right lower leg: No edema. Left lower leg: No edema. Neurological: General: No focal deficit present. Motor: Tremor present. Comments: Mild intention tremor. Feet:Shoes and socks removed, No deformities, ulcers, normal distal pulses, sensitive to 10 gm monofilament, and nails notable for Deformed, Hypertrophic, or Yellowish. Callouses of both big toes. Component Latest Ref Rng & Units 12/02/2021 02/26/2022 Protein, Total 6.3 - 8.0 g/dL 6.0 (L) Albumin 3.9 - 4.9 g/dL 4.4 Calcium 8.5 - 10.2 mg/dL 9.6 9.3 Bilirubin, Total 0.2 - 1.3 mg/dL 0.4 Alkaline Phosphatase 34 - 123 U/L 92 AST 13 - 35 U/L 22 ALT 7 - 38 U/L 36 Glucose 74 - 99 mg/dL 131 (H) 158 (H) BUN 7 - 21 mg/dL 11 9 Creatinine 0.58 - 0.96 mg/dL 1.41 (H) 1.16 (H) Sodium 136 - 144 mmol/L 141 140 Potassium 3.7 - 5.1 mmol/L 5.0 3.8 Chloride 97 - 105 mmol/L 103 105 CO2 22 - 30 mmol/L 27 22 Anion Gap 9 - 18 mmol/L 11 13 eGFR >=60 mL/min/1.73m 44 (L) 55 (L) Cholesterol, Total <200 mg/dL 249 (H) Triglyceride <150 mg/dL 201 (H) HDL Cholesterol >39 mg/dL 47 Non HDL Cholesterol <130 mg/dL 202 (H) Fasting Time hrs 12 VLDL Cholesterol <30 mg/dL 40 (H) TC:HDL Ratio <5.10 5.30 (H) LDL Cholesterol <100 mg/dL 162 (H) LDL:HDL Ratio <2.54 3.45 (H) Hemoglobin A1C 4.3 - 5.6 % 5.5 Estimated Average Glucose mg/dL 111 Assessment and Plan 1. Type 2 diabetes mellitus with stage 3a chronic kidney disease, without long- term current use of insulin (HCC) - ICD9: 250.40, 585.3, ICD10: E11.22, N18.31 (primary diagnosis) Untreated. Shared medical decision making. - TRULICITY 0.75 MG/0.5 ML SUBCUTANEOUS PEN INJECTOR. Discussed medication dosage, usage, goals of therapy, and side effects. She used a demonstration pen to satisfaction. 2. Stage 3a chronic kidney disease (HCC) - ICD9: 585.3, ICD10: N18.31 - eGFR: Stable - Counseled on avoiding regular use of NSAIDs, adequate hydration, potential risk of IV dye 3. Tremor - ICD9: 781.0, ICD10: R25.1 Stable. 4. Persistent headaches - ICD9: 784.0, ICD10: R51.9 Controlled. 5. Tobacco use disorder - ICD9: 305.1, ICD10: F17.200 - Cessation encouraged. - CONSULT [facility] 6. Class 3 severe obesity with serious comorbidity and body mass index (BMI) of 50.0 to 59.9 in adult, unspecified obesity type (HCC) - ICD9: 278.01, V85.43, ICD10: E66.01, Z68.43 Trulicity may help. - Behavioral intervention and - Pharmacological intervention Jericho Tinoco MD [facility]* Diagnosis Type 2 diabetes mellitus with stage 3a chronic kidney disease, without long-term current use of insulin (HCC)- Primary Stage 3a chronic kidney disease (HCC) Tremor Abnormal involuntary movements Persistent headaches Headache Tobacco use disorder Class 3 severe obesity with serious comorbidity and body mass index (BMI) of 50.0 to 59.9 in adult, unspecified obesity type (HCC) [facility] Miscellaneous Notes* Telephone Encounter - Jericho Tinoco MD - 02/23/2022 1:08 PM EDT [facility] Nurse Note* Peggy Diaz LPN - 01/18/2022 1:01 PM EDT Intake information documented in the prior visit with FLASH Caceres today. [facility] Procedure note* FLASH Caceres - 01/18/2022 12:58 PM EDTAssociated Order(s): NITRIC OXIDE, EXHALED RESPIRATORY THERAPY ORAL EXHALED NITRIC OXIDE SERVICE DATE: 01/18/2022 SERVICE TIME: 12:58 PM Oral Exhaled Nitric Oxide measurement: <5.0 (ppb) Normal: Adult 5-20 ppb, pediatric (<12 years) 5-15 ppb High Normal / Increased: Adult 20-35 ppb, pediatric (<12 years) 15-25 ppb Moderately raised exhaled Nitric Oxide may indicate underlying inflammation, but note that: Cold and influenza can raise exhaled Nitric Oxide and some patients have higher baseline exhaled Nitric Oxide levels than others. High: Adult >35 ppb, pediatric (<12 years) >25 ppb Indicative of ongoing eosinophilic inflammation. Symptomatic patient likely to respond to steroids. Possible causes (if already on steroids): Poor compliance, recent allergen exposure, steroid dose inadequate, and steroid resistance. Note that not all patients with high exhaled nitric oxide levels display symptoms. Oral Exhaled Nitric Oxide measurement (Previous Encounters) Test Date Oral Exhaled Nitric Oxide (ppb) 01/18/2022 <5.0 11/17/2020 10.0 01/25/2020 12.0 NAME: FLASH Caceres PATIENT NAME: Juan Eagle DATE: January 18, 2022 TIME: 12:58 PM [facility] History of Present illness Narrative* FLASH Caceres - 01/18/2022 12:45 PM EDT PULM FUNCTION SMARTBLOCK: Provider: Jamilah Galvan PA-C Assisting Tech: FLASH Caceres Spirometry: 1 Exhaled Nitric Oxide: 1 documented in [facility] History of Present illness Narrative* Jamilah Galvan PA-C - 01/18/2022 12:45 PM EDT [facility] Res[facility], 01/18/2022: Name: Juan Eagle : 1965 The patient is here today by herself. HPI: Juan Eagle is a 56 yo female current daily smoker, 32-pack years, with PMH significant for GERD, HLD, JOSE on CPAP, DM, psoriatic arthritis, and asthma. The patient is here for follow up of asthma. Since the last Pulmonary Clinic visit 07/17/2021, the patient admits to compliance with prescribed maintenance Rx: Breo 1 inhalation daily. There have been no ED visit(s) for the management of asthma exacerbation. No hospitalization(s) for management of asthma exacerbation. Has used no prednisone for the management of exacerbation. Occasionally uses rescue bronchodilator, with good relief. No nocturnal awakenings per month with asthma symptoms. Minimal cough. Non-productive. Frequent wheezing. No dyspnea at rest. Exertional dyspnea if she walks long distances. Lower extremity edema. No disruption in taste or voice associated with use of inhaled corticosteroid. No tremor, palpitations, or muscle cramping associated with bronchodilator inhalation. Consistently wearing CPAP with all sleep. PMH: Updated with patient today. FAMH: Updated with patient today. SOCH: Updated with patient today. Currently smoking 1 ppd. ROS: General: Generally feels well. Appetite good. Eyes, Ears, nose, throat: Post nasal drip, rhinorrhea. No purulent nasal discharge, epistaxis. No hoarseness. Vision stable. Cardiac: No angina. 2 pillow orthopnea. Resp: See HPI. GI: No heartburn. Musculoskeletal: Chronic back and right knee pain. Neuro: No headache, focal weakness. Skin: No rash. Otherwise negative. IMMUNIZATIONS Prevnar 13 - xx Pneumovax 03/02/2016 Influenza - xx COVID-19 - xx Allergies were verified and updated, and medications were reconciled with the patient at this visit. PHYSICAL EXAMINATION: BP 122/68 Pulse 62 Resp 14 Ht 156.2 cm (5' 1.5 ) Wt 121.6 kg (268 lb) SpO2 96% BMI 49.82 kg/m Gen: No acute distress. Cooperative with examination. ENT: Nares clear. Oral hygeine good. Pharynx clear. No sign of oral thrush. Resp: No stridor, accessory respiratory muscle use. No crackles, wheezes. CV: Regular rythm. Heart tones normal. Radial pulses normal. Abd: Non distended. MSK: No kyphoscoliosis. Ext: Warm and well perfused. No cyanosis. Skin: No rash, eczema, urticaria. Neuro: Mental status normal. No tremor. DATA REVIEW: PFT, 01/18/2022 PRE-BRONCH POST-BRONCH Pred LLN ULN Actual %Pred Actual %Chng SPIROMETRY FVC (L) 3.01 2.31 3.73 2.16 71 FEV1 (L) 2.40 1.84 2.94 1.84 76 FEV1/FVC 0.80 0.68 0.90 0.85 106 FEF25 (L/sec) 4.15 FEF50 (L/sec) 3.23 1.63 4.84 3.44 106 FEF75 (L/sec) 0.69 0.28 1.54 0.92 133 CZX14-89 (L/sec) 2.32 1.24 3.74 2.57 110 PEF L/s (L/sec) 6.12 4.54 7.70 4.38 71 FIVC (L) 1.84 FIF50 (L/sec) 2.79 PIF (L/sec) 2.81 Time (sec) 4.46 JAIME (L) 0.11 FET PEF (sec) 0.15 Exhaled nitric oxide (Trey), 01/18/2022: < 5.0 (normal < 20). Echocardiogram, 02/26/2020 CONCLUSIONS: - Technically difficult exam due to body habitus. - Exam indication: Palpitations - The left ventricle is normal in size. Left ventricular systolic function is normal. EF = 63 5% (2D 4-ch.) Normal left ventricular diastolic function. - The right ventricle is normal in size. Right ventricular systolic function is normal. - No apparent significant valvular abnormalities. - The patient has not had a prior CC echocardiographic exam for comparison. ASSESSMENT/PLAN: 1. Moderate persistent asthma without complication - ICD9: 493.90, ICD10: J45.40 (primary diagnosis) Moderate persistent Asthma stable - Continue Breo 1 inhalation daily. Rinse mouth after each use to help prevent oral thrush. - Albuterol MDI 2 puffs with spacer prn and before exertional activities - Avoidance of triggers recommended - FLUTICASONE FUROATE 200 MCG-VILANTEROL 25 MCG/DOSE INHALATION POWDER 2. Gastroesophageal reflux disease without esophagitis - ICD9: 530.81, ICD10: K21.9 Continue Prevacid. 3. Tobacco use disorder - ICD9: 305.1, ICD10: F17.200 Cessation encouraged. Physiologic and physical aspects of tobacco addiction as well as strategies for quitting were discussed. Counseling was given focusing on the harmful effects of this addiction especially given the patient's medical condition(s) which will be worsened because of the chemicals in tobacco. 4. JOSE (obstructive sleep apnea) - ICD9: 327.23, ICD10: G47.33 Continue PAP therapy with all sleep. I addressed the questions of the patient, and she expressed understanding and acceptance of my answers. Jamilah Galvan PA-C [facility] Miscellaneous Notes* Telephone Encounter - Gricelda Duckworth LPN - 12/04/2021 5:02 PM EDT Below left referral on identified vm. Faxed referral to [facility] scheduling. Gricelda Duckworth LPN * Telephone Encounter - Jericho Tinoco MD - 12/04/2021 4:37 PM EDT ASSESSMENT/PLAN: 1. Stage 3b chronic kidney disease (HCC) - ICD9: 585.3, ICD10: N18.32 (primary diagnosis) - CONSULT TO NON-[facility] FACILITY 2. Type 2 diabetes mellitus without complication, without long-term current use of insulin (HCC) - ICD9: 250.00, ICD10: E11.9 - CONSULT TO NON-[facility] FACILITY Jericho Tinoco MD * Telephone Encounter - Gabriela Flores LPN - 12/04/2021 9:19 AM EDT Patient is calling asking for a referral to [facility] dietitian. She is wanting directions on what to eatand not to eat with the dx of 3rd stage renal failure. [facility] Miscellaneous Notes* Telephone Encounter - Brigette Linares - 07/21/2021 11:21 AM EDT Patient electronically requesting refills as follows: Pending Prescriptions Disp Refills LANSOPRAZOLE 30 MG CAPSULE,DELAYED RELEASE 90 capsule 3 Sig: Take 1 capsule by mouth once daily. AURY: No Please review and advise. Brigette Linares documented [facility] History of Past illness Narrative* Problem Noted Date Resolved Date Helicobacter pylori gastritis 01/24/2021 BMI 45.0-49.9, adult 01/25/2020 03/20/2021 Cord compression 05/29/2019 12/02/2021 Intractable pain 05/28/2019 12/02/2021 Thumb tendonitis 01/20/2016 02/20/2017 Osteoarthritis of lumbar spine 12/05/2015 1 Pain in joint, multiple sites 05/26/2015 Depression 04/11/2015 08/10/2017 Low back pain 04/11/2015 02/20/2017 Gastroesophageal reflux disease without esophagi tis 04/11/2015 12/16/2019 documented as of this encounter (statuses as of 12/04/2021) [facility] of Past illness Narrative* Problem Noted Date Resolved Date Helicobacter pylori gastritis 01/24/2021 BMI 45.0-49.9, adult 01/25/2020 03/20/2021 Cord compression 05/29/2019 12/02/2021 Intractable pain 05/28/2019 12/02/2021 Thumb tendonitis 01/20/2016 02/20/2017 Osteoarthritis of lumbar spine 12/05/2015 1 Pain in joint, multiple sites 05/26/2015 Depression 04/11/2015 08/10/2017 Low back pain 04/11/2015 02/20/2017 Gastroesophageal reflux disease without esophagi tis 04/11/2015 12/16/2019 documented as of this encounter (statuses as of 12/04/2021) [facility] of [facility] illness Narrative* Problem Noted Date Resolved Date Helicobacter pylori gastritis 01/24/2021 BMI 45.0-49.9, adult 01/25/2020 03/20/2021 Cord compression 05/29/2019 12/02/2021 Intractable pain 05/28/2019 12/02/2021 Thumb tendonitis 01/20/2016 02/20/2017 Osteoarthritis of lumbar spine 12/05/2015 1 Pain in joint, multiple sites 05/26/2015 Depression 04/11/2015 08/10/2017 Low back pain 04/11/2015 02/20/2017 Gastroesophageal reflux disease without esophagi tis 04/11/2015 12/16/2019 documented as of this encounter (statuses as of 01/18/2022) [facility] illness Narrative* Problem Noted Date Resolved Date Helicobacter pylori gastritis 01/24/2021 BMI 45.0-49.9, adult 01/25/2020 03/20/2021 Cord compression 05/29/2019 12/02/2021 Intractable pain 05/28/2019 12/02/2021 Thumb tendonitis 01/20/2016 02/20/2017 Osteoarthritis of lumbar spine 12/05/2015 1 Pain in joint, multiple sites 05/26/2015 Depression 04/11/2015 08/10/2017 Low back pain 04/11/2015 02/20/2017 Gastroesophageal reflux disease without esophagi tis 04/11/2015 12/16/2019 documented as of this encounter (statuses as of 01/18/2022) [facility] Narrative* Problem Noted Date Resolved Date Helicobacter pylori gastritis 01/24/2021 BMI 45.0-49.9, adult 01/25/2020 03/20/2021 Cord compression 05/29/2019 12/02/2021 Intractable pain 05/28/2019 12/02/2021 Thumb tendonitis 01/20/2016 02/20/2017 Osteoarthritis of lumbar spine 12/05/2015 1 Pain in joint, multiple sites 05/26/2015 Depression 04/11/2015 08/10/2017 Low back pain 04/11/2015 02/20/2017 Gastroesophageal reflux disease without esophagi tis 04/11/2015 12/16/2019 documented as of this encounter (statuses as of 02/23/2022) [facility] Narrative* Problem Noted Date Resolved Date Helicobacter pylori gastritis 01/24/2021 BMI 45.0-49.9, adult 01/25/2020 03/20/2021 Cord compression 05/29/2019 12/02/2021 Intractable pain 05/28/2019 12/02/2021 Thumb tendonitis 01/20/2016 02/20/2017 Osteoarthritis of lumbar spine 12/05/2015 1 Pain in joint, multiple sites 05/26/2015 Depression 04/11/2015 08/10/2017 Low back pain 04/11/2015 02/20/2017 Gastroesophageal reflux disease without esophagi tis 04/11/2015 12/16/2019 documented as of this encounter (statuses as of 03/01/2022) [facility] Narrative* Problem Noted Date Resolved Date Helicobacter pylori gastritis 01/24/2021 BMI 45.0-49.9, adult 01/25/2020 03/20/2021 Cord compression 05/29/2019 12/02/2021 Intractable pain 05/28/2019 12/02/2021 Thumb tendonitis 01/20/2016 02/20/2017 Osteoarthritis of lumbar spine 12/05/2015 1 Pain in joint, multiple sites 05/26/2015 Depression 04/11/2015 08/10/2017 Low back pain 04/11/2015 02/20/2017 Gastroesophageal reflux disease without esophagi tis 04/11/2015 12/16/2019 documented as of this encounter (statuses as of 04/12/2022) [facility] Narrative* Problem Noted Date Resolved Date Helicobacter pylori gastritis 01/24/2021 BMI 45.0-49.9, adult 01/25/2020 03/20/2021 Cord compression 05/29/2019 12/02/2021 Intractable pain 05/28/2019 12/02/2021 Thumb tendonitis 01/20/2016 02/20/2017 Osteoarthritis of lumbar spine 12/05/2015 1 Pain in joint, multiple sites 05/26/2015 Depression 04/11/2015 08/10/2017 Low back pain 04/11/2015 02/20/2017 Gastroesophageal reflux disease without esophagi tis 04/11/2015 12/16/2019 documented as of this encounter (statuses as of 04/12/2022) [facility] Narrative* Problem Noted Date Resolved Date Helicobacter pylori gastritis 01/24/2021 BMI 45.0-49.9, adult 01/25/2020 03/20/2021 Cord compression 05/29/2019 12/02/2021 Intractable pain 05/28/2019 12/02/2021 Thumb tendonitis 01/20/2016 02/20/2017 Osteoarthritis of lumbar spine 12/05/2015 1 Pain in joint, multiple sites 05/26/2015 Depression 04/11/2015 08/10/2017 Low back pain 04/11/2015 02/20/2017 Gastroesophageal reflux disease without esophagi tis 04/11/2015 12/16/2019 documented as of this encounter (statuses as of 04/13/2022) [facility] Narrative* Problem Noted Date Resolved Date Helicobacter pylori gastritis 01/24/2021 BMI 45.0-49.9, adult 01/25/2020 03/20/2021 Cord compression 05/29/2019 12/02/2021 Intractable pain 05/28/2019 12/02/2021 Thumb tendonitis 01/20/2016 02/20/2017 Osteoarthritis of lumbar spine 12/05/2015 1 Pain in joint, multiple sites 05/26/2015 Depression 04/11/2015 08/10/2017 Low back pain 04/11/2015 02/20/2017 Gastroesophageal reflux disease without esophagi tis 04/11/2015 12/16/2019 documented as of this encounter (statuses as of 06/01/2022) [facility] Narr[facility]* Problem Noted Date Resolved Date Helicobacter pylori gastritis 01/24/2021 BMI 45.0-49.9, adult 01/25/2020 03/20/2021 Cord compression 05/29/2019 12/02/2021 Intractable pain 05/28/2019 12/02/2021 Thumb tendonitis 01/20/2016 02/20/2017 Osteoarthritis of lumbar spine 12/05/2015 1 Pain in joint, multiple sites 05/26/2015 Depression 04/11/2015 08/10/2017 Low back pain 04/11/2015 02/20/2017 Gastroesophageal reflux disease without esophagi tis 04/11/2015 12/16/2019 documented as of this encounter (statuses as of 06/22/2022) [facility] Narrative* Problem Noted Date Resolved Date Helicobacter pylori gastritis 01/24/2021 BMI 45.0-49.9, adult 01/25/2020 03/20/2021 Cord compression 05/29/2019 12/02/2021 Intractable pain 05/28/2019 12/02/2021 Thumb tendonitis 01/20/2016 02/20/2017 Osteoarthritis of lumbar spine 12/05/2015 1 Pain in joint, multiple sites 05/26/2015 Depression 04/11/2015 08/10/2017 Low back pain 04/11/2015 02/20/2017 Gastroesophageal reflux disease without esophagi tis 04/11/2015 12/16/2019 documented as of this encounter (statuses as of 06/28/2022) [facility]* Problem Noted Date Resolved Date Helicobacter pylori gastritis 01/24/2021 BMI 45.0-49.9, adult 01/25/2020 03/20/2021 Cord compression 05/29/2019 12/02/2021 Intractable pain 05/28/2019 12/02/2021 Thumb tendonitis 01/20/2016 02/20/2017 Osteoarthritis of lumbar spine 12/05/2015 1 Pain in joint, multiple sites 05/26/2015 Depression 04/11/2015 08/10/2017 Low back pain 04/11/2015 02/20/2017 Gastroesophageal reflux disease without esophagi tis 04/11/2015 12/16/2019 documented as of this encounter (statuses as of 07/01/2022) [facility] Narrative* Problem Noted Date Resolved Date Helicobacter pylori gastritis 01/24/2021 BMI 45.0-49.9, adult 01/25/2020 03/20/2021 Cord compression 05/29/2019 12/02/2021 Intractable pain 05/28/2019 12/02/2021 Thumb tendonitis 01/20/2016 02/20/2017 Osteoarthritis of lumbar spine 12/05/2015 1 Pain in joint, multiple sites 05/26/2015 Depression 04/11/2015 08/10/2017 Low back pain 04/11/2015 02/20/2017 Gastroesophageal reflux disease without esophagi tis 04/11/2015 12/16/2019 documented as of this encounter (statuses as of 07/01/2022) [facility] Narrative* Problem Noted Date Resolved Date Helicobacter pylori gastritis 01/24/2021 BMI 45.0-49.9, adult 01/25/2020 03/20/2021 Cord compression 05/29/2019 12/02/2021 Intractable pain 05/28/2019 12/02/2021 Thumb tendonitis 01/20/2016 02/20/2017 Osteoarthritis of lumbar spine 12/05/2015 1 Pain in joint, multiple sites 05/26/2015 Depression 04/11/2015 08/10/2017 Low back pain 04/11/2015 02/20/2017 Gastroesophageal reflux disease without esophagi tis 04/11/2015 12/16/2019 documented as of this encounter (statuses as of 07/19/2022) [address]21-2021 History of Past illness Narrative* Problem Noted Date Resolved Date Helicobacter pylori gastritis 01/24/2021 BMI 45.0-49.9, adult 01/25/2020 03/20/2021 Cord compression 05/29/2019 12/02/2021 Intractable pain 05/28/2019 12/02/2021 Thumb tendonitis 01/20/2016 02/20/2017 Osteoarthritis of lumbar spine 12/05/2015 1 Pain in joint, multiple sites 05/26/2015 Depression 04/11/2015 08/10/2017 Low back pain 04/11/2015 02/20/2017 Gastroesophageal reflux disease without esophagi tis 04/11/2015 12/16/2019 documented as of this encounter (statuses as of 07/20/2022) [facility] Narr[facility]* Problem Noted Date Resolved Date Helicobacter pylori gastritis 01/24/2021 BMI 45.0-49.9, adult 01/25/2020 03/20/2021 Cord compression 05/29/2019 12/02/2021 Intractable pain 05/28/2019 12/02/2021 Thumb tendonitis 01/20/2016 02/20/2017 Osteoarthritis of lumbar spine 12/05/2015 1 Pain in joint, multiple sites 05/26/2015 Depression 04/11/2015 08/10/2017 Low back pain 04/11/2015 02/20/2017 Gastroesophageal reflux disease without esophagi tis 04/11/2015 12/16/2019 documented as of this encounter (statuses as of 08/23/2022) [facility] Narrative* Problem Noted Date Resolved Date BMI 45.0-49.9, adult 01/25/2020 03/20/2021 Thumb tendonitis 01/20/2016 02/20/2017 Osteoarthritis of lumbar spine 12/05/2015 1 Depression 04/11/2015 08/10/2017 Low back pain 04/11/2015 02/20/2017 Gastroesophageal reflux disease without esophagi tis 04/11/2015 12/16/2019 documented as of this encounter (statuses as of 07/24/2021) [facility]arrative* Problem Noted Date Resolved Date BMI 45.0-49.9, adult 01/25/2020 03/20/2021 Thumb tendonitis 01/20/2016 02/20/2017 Osteoarthritis of lumbar spine 12/05/2015 1 Depression 04/11/2015 08/10/2017 Low back pain 04/11/2015 02/20/2017 Gastroesophageal reflux disease without esophagi tis 04/11/2015 12/16/2019 documented as of this encounter (statuses as of 09/01/2021) [facility] + Plan note No data available for this section [facility] Evaluation note* Diagnosis Gastroesophageal reflux disease without esophagitis Esophageal reflux documented in this encounter [facility] note* Diagnosis Type 2 diabetes mellitus without complication (HCC) Type II or unspecified type diabetes mellitus without mention of complication, not stated as uncontrolled documented in this encounter [facility] note* Diagnosis Stage 3b chronic kidney disease (HCC)- Primary documented in this encounter [facility] note* Diagnosis Stage 3b chronic kidney disease (HCC)- Primary Type 2 diabetes mellitus without complication, without long-term current use of insulin ([facility]) documented in this encounter [facility] note* Diagnosis Moderate persistent asthma without complication Unspecified asthma documented in this encounter [facility] note* Diagnosis Moderate persistent asthma without complication Unspecified asthma documented in this encounter [facility] note* Diagnosis Moderate persistent asthma without complication- Primary Unspecified asthma Gastroesophageal reflux disease without esophagitis Esophageal reflux Tobacco use disorder JOSE (obstructive sleep apnea) Obstructive sleep apnea (adult) (pediatric) documented in this encounter [facility] note* Diagnosis Stage 3b chronic kidney disease (HCC)- Primary Panic anxiety syndrome Panic disorder without agoraphobia documented in this encounter [facility] note* Diagnosis ST elevation myocardial infarction involving left circumflex coronary artery ([facility])- Primary Acute myocardial infarction of other specified sites, initial episode of care Ventricular fibrillation (HCC) Ventricular fibrillation Coronary artery disease involving marshall coronary artery of marshall heart without angina pectoris Ischemic cardiomyopathy Other specified forms of chronic ischemic heart disease Mixed hyperlipidemia Type 2 diabetes mellitus with stage 3a chronic kidney disease, without long-term current use of insulin ([facility]) [facility] Bipolar affective disorder, remission status unspecified ([facility])- Primary Insomnia, unspecified type Panic anxiety syndrome Panic disorder without agoraphobia Coronary artery disease involving marshall coronary artery of marshall heart without angina pectoris Persistent headaches Headache Type 2 diabetes mellitus with stage 3a chronic kidney disease, without long-term current use of insulin ([facility]) Morbid obesity with BMI of 45.0-49.9, adult ([facility]) Morbid obesity Psoriatic arthritis (HCC) Psoriatic arthropathy [facility] Diagnosis Persistent headaches Headache Gastroesophageal reflux disease without esophagitis Esophageal reflux [facility]* Diagnosis Encounter for long-term (current) use of medications- Primary Encounter for long-term (current) use of other medications Bipolar affective disorder, remission status unspecified ([facility]) PTSD (post-traumatic stress disorder) Posttraumatic stress disorder Panic disorder with agoraphobia Agoraphobia with panic disorder Dyskinesia, tardive Subacute dyskinesia due to drugs [facility]* Diagnosis SOB (shortness of breath)- Primary Shortness of breath Mild intermittent asthma without complication Unspecified asthma Morbid obesity (HCC) Morbid obesity Cigarette smoker Tobacco use disorder [facility]* Diagnosis SOB (shortness of breath) Shortness of breath [facility]* Diagnosis PTSD (post-traumatic stress disorder)- Primary Posttraumatic stress disorder Panic disorder with agoraphobia Agoraphobia with panic disorder Dyskinesia, tardive Subacute dyskinesia due to drugs Bipolar affective disorder, currently depressed, moderate ([facility]) Bipolar I disorder, most recent episode (or current) depressed, moderate [facility]* Diagnosis Encounter for screening mammogram for breast cancer [facility]* Diagnosis Diabetic mononeuropathy associated with diabetes mellitus due to underlying condition ([facility])- Primary Callus of foot Corns and callosities Ingrowing toenail Ingrowing nail Onychomycosis Dermatophytosis of nail Pain in toe of left foot Pain in limb Pain in toe of right foot Pain in limb Diminished pulses in lower extremity Other symptoms involving cardiovascular system [facility]* Diagnosis Bipolar affective disorder, currently depressed, moderate ([facility])- Primary Bipolar I disorder, most recent episode (or current) depressed, moderate Dyskinesia, tardive Subacute dyskinesia due to drugs Panic disorder with agoraphobia Agoraphobia with panic disorder PTSD (post-traumatic stress disorder) Posttraumatic stress disorder [facility]* Diagnosis Moderate persistent asthma without complication- Primary Unspecified asthma Morbid obesity (HCC) Morbid obesity Gastroesophageal reflux disease without esophagitis Esophageal reflux Cigarette smoker Tobacco use disorder [facility] Diagnosis Panic disorder with agoraphobia Agoraphobia with panic disorder Dyskinesia, tardive Subacute dyskinesia due to drugs [facility]* Diagnosis Wrist pain, right- Primary Pain in joint, forearm Psoriatic arthritis (HCC) Psoriatic arthropathy Type 2 diabetes mellitus with stage 3a chronic kidney disease, without long-term current use of insulin ([facility]) [facility]* Diagnosis Persistent headaches Headache documented in this encounter [facility] note* Diagnosis Dyskinesia, tardive- Primary Subacute dyskinesia due to drugs Bipolar affective disorder, currently depressed, moderate (HCC) Bipolar I disorder, most recent episode (or current) depressed, moderate Panic disorder with agoraphobia Agoraphobia with panic disorder PTSD (post-traumatic stress disorder) Posttraumatic stress disorder documented in this encounter [facility] note* Diagnosis Bipolar affective disorder, currently depressed, moderate (HCC)- Primary Bipolar I disorder, most recent episode (or current) depressed, moderate Dyskinesia, tardive Subacute dyskinesia due to drugs Panic disorder with agoraphobia Agoraphobia with panic disorder PTSD (post-traumatic stress disorder) Posttraumatic stress disorder documented in this encounter [facility] Discharge instructions No data available for this section [facility] Progress note No data available for this section [facility] Reason for referral (narrative)* Outpatient Procedure (Routine) - Pending Review Specialty Diagnoses / Procedures Referred By Patrick t Ref[facility] Diagnoses Encounter for long-term (current) use of medications Procedures ECG COMPLETE ECG ROUTINE ECG W/LEAST 12 LDS W/I&R Seda Quiroz, 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 [address] [place] [address] [facility] [address] [address] Referral ID Status Reason Start Date Expiration Date Visits Requested Visits Authorized [id number] Pending Review Auto-Generat ed Referral 06/22/2022 06/22/2023 1 1 [facility] for referral (narrative)* Outpatient Procedure (Routine) - Authorized Specialty Diagnoses / Procedures [facility] Diagnoses SOB (shortness of breath) Procedures SPIROMETRY BASELINE ONLY SPMTRY W/VC EXPIRATORY JEWEL W/WO MXML VOL VNTJ Talia Dias MD [address] [place] [address] [facility] [address] [place] [id number] Referral ID Status Reason Start Date Expiration Date Visits Requested Visits Authorized [id number] Authorized Auto-Generat ed Referral 07/19/2022 08/18/2023 1 1 T [facility] for referral (narrative)* Diagnostic Procedure Only (Routine) - Pending Review Specialty Diagnoses / Procedures Referred By [facility] Referred To Contact [facility] Diagnoses Encounter for screening mammogram for breast cancer Procedures JEANNETTE SCREENING SCREENING MAMMOGRAPHY BI 2-VIEW BREAST INC CAD Jericho Tinoco MD [address] [place] [id number] [facility] [address] [place] [id number] Referral ID Status Reason Start Date Expiration Date Visits Requested Visits Authorized [id number] Pending Review Auto-Generat ed Referral 11/07/2022 12/07/2023 1 1 T [facility] for referral (narrative)* Outpatient Procedure (Routine) - Authorized Specialty Diagnoses / Procedures [facility]erred To Contact [facility] VASCULAR JESSUP Diagnoses Ingrowing toenail Procedures PVR ANK PRESS KAYLEE [facility] NON-INVAS PHYSIOLOGIC STD EXTREMITY ART 2 LEVEL Aron Navarro [address] [address] [facility] [address] [place] [address] Referral ID Status Reason Start Date Expiration Date Visits Requested Visits Authorized [id number] Authorized Auto-Generat ed Referral 12/04/2022 12/04/2023 1 1 [facility] Summary Purpose Family History No Family History Records FoundNo Family History Records FoundNo Family History Records FoundNo Family History Records Found Advance Directives No Advanced Directives Records FoundDocuments on File Type Date Recorded Patient Consulting Psychologist Expl anation Advance Directive(s) 05/29/2019 12:50 PM Advance Directive(s) 04/16/2016 1:49 PM Advance Directive(s) 01/16/2016 9:20 AM Advance Directive(s) 12/19/2015 7:24 AM Reason for Referral Specialty Diagnoses / Procedures Referred By Contac t Referred To Contact Rheumatology Diagnoses Psoriatic arthritis (HCC) Procedures CONSULT TO RHEUM/IMMUN DISEASE Jericho Tinoco MD [address] [place] [address] Referral ID Status Reason Start Date Expiration Date Visits Requested Visits Authorized [id number] Ref Not Required PCP Requested Referral 03/06/2023 03/05/2024 1 1 Specialty Diagnoses / Procedures Referred By Patrick mchugh Referred To Contact Diagnoses Bipolar affective disorder, remission status unspecified (HCC) Procedures CONSULT TO PSYCHIATRY OFFICE/OUTPATIENT [facility] MDM 60-74 MINUTES Older, LEONELA Marshall.MANAGER OF HUMAN RESOURCES [address] [place] [address] Referral ID Status Reason Start Date Expiration Date Visits Requested Visits Authorized [id number] Pending Review PCP Requested Referral 06/01/2022 06/01/2023 1 1 Additional Source Comments INFORMATION SOURCE (unrecogn ized section and content) DATE CREATED AUTHOR AUTHOR'S ORGANIZ ATION 06/19/2020 [facility] DATE CREATED AUTHOR AUTHOR'S ORGANIZ ATION 05/17/2022 [facility] ([place]) DATE CREATED AUTHOR AUTHOR'S NERI ATION 05/20/2023 [facility] Source Comments (unrecognize d section and content) In the event this informatio n is protected by the Federal Confidentiality of Alcohol and Drug Abuse Patient Records regulations: The Federal rules restrict any use of the information to criminally investigate or prosecute any alcohol or drug abuse patient.[facility] the event this information is protected by the Federal Confidentiality of Alcohol and Drug Abuse Patient Records regulations: The Federal rules restrict any use of the information to criminally investigate or prosecute any alcohol or drug abuse patient.[facility] Center[facility] the event this information is protected by the Federal Confidentiality of Alcohol and Drug Abuse Patient Records regulations: The Federal rules restrict any use of the information to criminally investigate or prosecute any alcohol or drug abuse patient.[facility] Center[facility] the event this information is protected by the Federal Confidentiality of Alcohol and Drug Abuse Patient Records regulations: The Federal rules restrict any use of the information to criminally investigate or prosecute any alcohol or drug abuse patient.[facility] Center[facility] the event this information is protected by the Federal Confidentiality of Alcohol and Drug Abuse Patient Records regulations: The Federal rules restrict any use of the information to criminally investigate or prosecute any alcohol or drug abuse patient.[facility] Center[facility] the event this information is protected by the Federal Confidentiality of Alcohol and Drug Abuse Patient Records regulations: The Federal rules restrict any use of the information to criminally investigate or prosecute any alcohol or drug abuse patient.[facility] Center[facility] the event this information is protected by the Federal Confidentiality of Alcohol and Drug Abuse Patient Records regulations: The Federal rules restrict any use of the information to criminally investigate or prosecute any alcohol or drug abuse patient.[facility] Center[facility] the event this information is protected by the Federal Confidentiality of Alcohol and Drug Abuse Patient Records regulations: The Federal rules restrict any use of the information to criminally investigate or prosecute any alcohol or drug abuse patient.[facility] Center[facility] the event this information is protected by the Federal Confidentiality of Alcohol and Drug Abuse Patient Records regulations: The Federal rules restrict any use of the information to criminally investigate or prosecute any alcohol or drug abuse patient.[facility] Center[facility] the event this information is protected by the Federal Confidentiality of Alcohol and Drug Abuse Patient Records regulations: The Federal rules restrict any use of the information to criminally investigate or prosecute any alcohol or drug abuse patient.[facility] Center[facility] the event this information is protected by the Federal Confidentiality of Alcohol and Drug Abuse Patient Records regulations: The Federal rules restrict any use of the information to criminally investigate or prosecute any alcohol or drug abuse patient.[facility] Center[facility] the event this information is protected by the Federal Confidentiality of Alcohol and Drug Abuse Patient Records regulations: The Federal rules restrict any use of the information to criminally investigate or prosecute any alcohol or drug abuse patient.[facility] Center[facility] the event this information is protected by the Federal Confidentiality of Alcohol and Drug Abuse Patient Records regulations: The Federal rules restrict any use of the information to criminally investigate or prosecute any alcohol or drug abuse patient.[facility] CenterIn the event this information is protected by the Federal Confidentiality of Alcohol and Drug Abuse Patient Records regulations: The Federal rules restrict any use of the information to criminally investigate or prosecute any alcohol or drug abuse patient.[facility] CenterIn the event this information is protected by the Federal Confidentiality of Alcohol and Drug Abuse Patient Records regulations: The Federal rules restrict any use of the information to criminally investigate or prosecute any alcohol or drug abuse patient.[facility] Center[facility] the event this information is protected by the Federal Confidentiality of Alcohol and Drug Abuse Patient Records regulations: The Federal rules restrict any use of the information to criminally investigate or prosecute any alcohol or drug abuse patient.[facility] Center[facility] the event this information is protected by the Federal Confidentiality of Alcohol and Drug Abuse Patient Records regulations: The Federal rules restrict any use of the information to criminally investigate or prosecute any alcohol or drug abuse patient.[facility] CenterIn the event this information is protected by the Federal Confidentiality of Alcohol and Drug Abuse Patient Records regulations: The Federal rules restrict any use of the information to criminally investigate or prosecute any alcohol or drug abuse patient.[facility] CenterIn the event this information is protected by the Federal Confidentiality of Alcohol and Drug Abuse Patient Records regulations: The Federal rules restrict any use of the information to criminally investigate or prosecute any alcohol or drug abuse patient.[facility] CenterIn the event this information is protected by the Federal Confidentiality of Alcohol and Drug Abuse Patient Records regulations: The Federal rules restrict any use of the information to criminally investigate or prosecute any alcohol or drug abuse patient.[facility] Center[facility] the event this information is protected by the Federal Confidentiality of Alcohol and Drug Abuse Patient Records regulations: The Federal rules restrict any use of the information to criminally investigate or prosecute any alcohol or drug abuse patient.[facility] CenterIn the event this information is protected by the Federal Confidentiality of Alcohol and Drug Abuse Patient Records regulations: The Federal rules restrict any use of the information to criminally investigate or prosecute any alcohol or drug abuse patient.[facility] CenterIn the event this information is protected by the Federal Confidentiality of Alcohol and Drug Abuse Patient Records regulations: The Federal rules restrict any use of the information to criminally investigate or prosecute any alcohol or drug abuse patient.[facility] Center[facility] the event this information is protected by the Federal Confidentiality of Alcohol and Drug Abuse Patient Records regulations: The Federal rules restrict any use of the information to criminally investigate or prosecute any alcohol or drug abuse patient.[facility] CenterIn the event this information is protected by the Federal Confidentiality of Alcohol and Drug Abuse Patient Records regulations: The Federal rules restrict any use of the information to criminally investigate or prosecute any alcohol or drug abuse patient.[facility] Center[facility] the event this information is protected by the Federal Confidentiality of Alcohol and Drug Abuse Patient Records regulations: The Federal rules restrict any use of the information to criminally investigate or prosecute any alcohol or drug abuse patient.[facility] CenterIn the event this information is protected by the Federal Confidentiality of Alcohol and Drug Abuse Patient Records regulations: The Federal rules restrict any use of the information to criminally investigate or prosecute any alcohol or drug abuse patient.[facility] CenterIn the event this information is protected by the Federal Confidentiality of Alcohol and Drug Abuse Patient Records regulations: The Federal rules restrict any use of the information to criminally investigate or prosecute any alcohol or drug abuse patient.[facility] CenterIn the event this information is protected by the Federal Confidentiality of Alcohol and Drug Abuse Patient Records regulations: The Federal rules restrict any use of the information to criminally investigate or prosecute any alcohol or drug abuse patient.[facility] CenterIn the event this information is protected by the Federal Confidentiality of Alcohol and Drug Abuse Patient Records regulations: The Federal rules restrict any use of the information to criminally investigate or prosecute any alcohol or drug abuse patient.[facility] CenterIn the event this information is protected by the Federal Confidentiality of Alcohol and Drug Abuse Patient Records regulations: The Federal rules restrict any use of the information to criminally investigate or prosecute any alcohol or drug abuse patient.[facility] CenterIn the event this information is protected by the Federal Confidentiality of Alcohol and Drug Abuse Patient Records regulations: The Federal rules restrict any use of the information to criminally investigate or prosecute any alcohol or drug abuse patient.[facility] CenterIn the event this information is protected by the Federal Confidentiality of Alcohol and Drug Abuse Patient Records regulations: The Federal rules restrict any use of the information to criminally investigate or prosecute any alcohol or drug abuse patient.[facility] CenterIn the event this information is protected by the Federal Confidentiality of Alcohol and Drug Abuse Patient Records regulations: The Federal rules restrict any use of the information to criminally investigate or prosecute any alcohol or drug abuse patient.[facility] CenterIn the event this information is protected by the Federal Confidentiality of Alcohol and Drug Abuse Patient Records regulations: The Federal rules restrict any use of the information to criminally investigate or prosecute any alcohol or drug abuse patient.[facility] Reason for Visit (unrecogniz ed section and content) Reason Comments Referral Request Reason Comments Spirometry Specialty Diagnoses / Procedures Referred By Contac t Referred To Contact [facility] Diagnoses Moderate persistent asthma without complication Procedures SPIROMETRY BASELINE ONLY SPMTRY W/VC EXPIRATORY JEWEL W/WO MXML VOL VNTJ Jamilah Galvan PA-C [address] [place] [address] [address] Referral ID Status Reason Start Date Expiration Date V isits Requested Visits Authorized [id number] Closed Auto-Generate d Referral 07/17/2021 08/16/2022 1 1 Specialty Diagnoses / Procedures Referred By Contac t Referred To Contact RESPIRATORY JESSUP Diagnoses Moderate persistent asthma without complication Procedures NITRIC OXIDE, EXHALED NITRIC OXIDE GAS DETERMINATION Jamilah Galvan PA-C [address] [place] [address] [address] Referral ID Status Reason Start Date Expiration Date V isits Requested Visits Authorized [id number] Closed Auto-Generate d Referral 07/17/2021 08/16/2022 1 1 Reason Comments Established Patient 6 month follow up as thma Reason Comments Recheck Reason Comments Patient Update Reason Onset Date Comments Transition Of Care 04/09/2022 Reason Comments Hospital F/U [facility] Reason Comments Follow Up Reason Comments Patient Question Reason Comments Medication Problem Breo Reason Onset Date Comments Refill Request 06/28/2022 Reason Comments New Patient Evaluation Specialty Diagnoses / Procedures Referred By Contac t Referred To Contact Diagnoses Bipolar affective disorder, remission status unspecified (HCC) Procedures CONSULT TO PSYCHIATRY OFFICE/OUTPATIENT NEW HIGH MDM 60-74 MINUTES Older, 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, 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 [address] [place] [address] Referral ID Status Reason Start Date Expiration Date Visits Requested Visits Authorized [id number] Pending Review PCP Requested Referral 06/01/2022 06/01/2023 1 1 Reason Comments Established Patient 6 month follow up Asthma Specialty Diagnoses / Procedures Referred By Contac t Referred To Contact [facility] Diagnoses SOB (shortness of breath) Procedures SPIROMETRY BASELINE ONLY SPMTRY W/VC EXPIRATORY JEWEL W/WO MXML VOL VNTTalia Francois MD [address] [place] [address] Respiratory [facility] [address] [place] [address] Referral ID Status Reason Start Date Expiration Date V isits Requested Visits Authorized [id number] Closed Auto-Generate d Referral 07/19/2022 08/18/2023 1 1 Reason Comments Follow Up Specialty Diagnoses / Procedures Referred By Contac t Referred To Contact Psychiatry / ADULT PSYCHIATRY Diagnoses Follow up Procedures VIDEO PSYC/PSYL EST Claude, Joanna, 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 [address] [place] [address] Seda Quiroz, 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 [address] [place] [address] Referral ID Status Reason Start Date Expiration Date V isits Requested Visits Authorized [id number] Pending Review 08/23/2022 05/05/2023 30 30 Reason Comments Results Reason Comments Letter Reason Comments Established Patient Diabetic Foot Care Reason Comments Refill Request Reason Comments Express Care follow-up Reason Onset Date Comments Refill Request 03/09/2023 Specialty Diagnoses / Procedures Referred By Contac t Referred To Contact Psychiatry / ADULT PSYCHIATRY Diagnoses FOLLOW UP Procedures EST PSYC ADULT Jericho Tinoco MD [address] [place] [address] Seda Quiroz, 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 [address] [place] [address] Referral ID Status Reason Start Date Expiration Date V isits Requested Visits Authorized [id number] Pending Review 04/02/2023 07/01/2023 1 1 Care Teams (unrecognized sec tion and content) Medicine Tech Relationship Specialty Start Date End Date Jericho Tinoco MD [address] [place] [address] PCP - General Internal Medicine 05/26/15 Medicine Tech Relationship Specialty Start Date End Date Jericho Tinoco MD [address] [place] [address] PCP - General Internal Medicine 05/26/15 Medicine Tech Relationship Specialty Start Date End Date Jericho Tinoco MD [facility] [place] [place] [address] PCP - General Internal Medicine 05/26/15 Medicine Tech Relationship Specialty Start Date End Date Jericho Tinoco MD [facility] [place] [address] PCP - General Internal Medicine 05/26/15 Medicine Tech Relationship Specialty Start Date End Date Jericho Tinoco MD [address] [place] [address] PCP - General Internal Medicine 05/26/15 Medicine Tech Relationship Specialty Start Date End Date Jericho Tinoco MD [address] [place] [address] PCP - General Internal Medicine 05/26/15 Medicine Tech Relationship Specialty Start Date End Date Jericho Tinoco MD [facility] [place] [place] [address] PCP - General Internal Medicine 05/26/15 Medicine Tech Relationship Specialty Start Date End Date Jericho Tinoco MD [facility] [place] [address] PCP - General Internal Medicine 05/26/15 Medicine Tech Relationship Specialty Start Date End Date Jericho Tinoco MD [address] [place] [address] PCP - General Internal Medicine 05/26/15 Medicine Tech Relationship Specialty Start Date End Date Jericho Tinoco MD [address] [place] [address] PCP - General Internal Medicine 05/26/15 Medicine Tech Relationship Specialty Start Date End Date Jericho Tinoco MD [address] [place] [address] PCP - General Internal Medicine 05/26/15 Medicine Tech Relationship Specialty Start Date End Date Jericho Tinoco MD [address] [place] [address] PCP - General Internal Medicine 05/26/15 Medicine Tech Relationship Specialty Start Date End Date Jericho Tinoco MD [address] [place] [address] PCP - General Internal Medicine 05/26/15 Medicine Tech Relationship Specialty Start Date End Date Jericho Tinoco MD [address] [place] [address] PCP - General Internal Medicine 05/26/15 Medicine Tech Relationship Specialty Start Date End Date Jericho Tinoco MD [address] [place] [address] PCP - General Internal Medicine 05/26/15 Medicine Tech Relationship Specialty Start Date End Date Jericho Tinoco MD [address] [place] [address] PCP - General Internal Medicine 05/26/15 Medicine Tech Relationship Specialty Start Date End Date Jericho Tinoco MD [address] [place] [address] PCP - General Internal Medicine 05/26/15 Medicine Tech Relationship Specialty Start Date End Date Jericho Tinoco MD [address] [place] [address] PCP - General Internal Medicine 05/26/15 Medicine Tech Relationship Specialty Start Date End Date Jericho Tinoco MD [address] [place] [address] PCP - General Internal Medicine 05/26/15 Medicine Tech Relationship Specialty Start Date End Date Jericho Tinoco MD [address] [place] [address] PCP - General Internal Medicine 05/26/15 Medicine Tech Relationship Specialty Start Date End Date Jericho Tinoco MD [address] [place] [address] PCP - General Internal Medicine 05/26/15 Medicine Tech Relationship Specialty Start Date End Date Jericho Tinoco MD [address] [place] [address] PCP - General Internal Medicine 05/26/15 Medicine Tech Relationship Specialty Start Date End Date Jericho Tinoco MD [address] [place] [address] PCP - General Internal Medicine 05/26/15 Medicine Tech Relationship Specialty Start Date End Date Jericho Tinoco MD [address] [place] [address] PCP - General Internal Medicine 05/26/15 Medicine Tech Relationship Specialty Start Date End Date Jericho Tinoco MD [address] [place] [address] PCP - General Internal Medicine 05/26/15 Medicine Tech Relationship Specialty Start Date End Date Jericho Tinoco MD [address] [place] [address] PCP - General Internal Medicine 05/26/15 Medicine Tech Relationship Specialty Start Date End Date Jericho Tinoco MD [address] [place] [address] PCP - General Internal Medicine 05/26/15 Medicine Tech Relationship Specialty Start Date End Date Jericho Tinoco MD [address] [place] [address] PCP - General Internal Medicine 05/26/15 Medicine Tech Relationship Specialty Start Date End Date Jericho Tinoco MD [address] [place] [address] PCP - General Internal Medicine 05/26/15 Medicine Tech Relationship Specialty Start Date End Date Jericho Tinoco MD [address] [place] [address] PCP - General Internal Medicine 05/26/15 Care Team (unrecognized sect ion and content) Care Team Personnel Name: JERICHO TINOCO MD Member Role: Primary Care Physician Address: Address: [address] [place] [address]- [place] Name: ROBIN RIGGS MD Position: ED Physician Member Role: ED Physician Address: Address: [address] [place] [address]- [place] Name: KWADWO Padilla Position: ED RN Member Role: ED RN Care Team Related Persons Name: AARON FLORES Care Team Personnel Name: JERICHO TINOCO MD Member Role: Primary Care Physician Address: Address: [facility] [place] [address]- Care Team Related Persons Name: AARON FLORES FOR RECORDS PERTAINING TO PATIENTS WHO ARE OR HAVE BEEN ENROLLED IN A CHEMICAL DEPENDENCY/SUBSTANCEABUSE PROGRAM, SOME INFORMATION MAY BE OMITTED. This clinical summary was aggregated from multiple sources. Caution should be exercised in using it in the provision of clinical care. This summary normalizes information from multiple sources, and as a consequence, information in this document may materially change the coding, format and clinical context of patient data. In addition, data may be omitted in some cases. CLINICAL DECISIONS SHOULD BE BASED ON THE PRIMARY CLINICAL RECORDS. [employer] provides no warranty or guarantee of the accuracy or completeness of information in this document.
[2023-05-21 17:36] LABS: Allen Test Positive; Base Excess -7 mmol/L (-2 to +2); Bicarbonate 18.3 mmol/L (22-26); Blood Gas Specimen Type ART; Mode Not entered; O2 Delivery Device Not entered; PO2 63 mmHG (75-100); SITE L Radial; SO2 92 % (95-99); Total Carbon Dioxide 19 mmol/L; pCO2 31.6 mmHg (35-45); pH 7.37 (7.35-7.45)
--- OUTSIDE RECORDS SUMMARY | 2023-05-21 18:09 | XMS RPT_ITS | CCD ---
Author Name Unknown Address [address] [place] [address] Organization [facility] Care Team Providers Care Glass Cutter Hand Name Role Phone Ezequiel CARRANZA, Jericho Prado Primary Care Provider [phone] EZEQUIEL CARRANZA, DR HELM Primary Care Physician Ezequiel CARRANZA, Jericho Prado Primary Care Provider [phone] KARISHMA CARRANZA, ELIECER Dent Attending Unavailab christiano [...] Care Unavailable JAMILAH GALVAN Attending Unavailable TINOCO, JOHANNA Primary Care Unavailable TINOCO, JOHANNA Referring Unavailable ARON NAVARRO Attending Unavailable TINOCO, JOHANNA Primary Care Unavailable TINOCO, JOHANNA Primary Care Unavailable TINOCO, JOHANNA Referring Unavailable TINOCO, JOHANNA Primary Care [...] [acetaminophen-oxy codone] Drug Allergy 5 GI Upset [facility] (20 sources) cariprazine; Translations: [CARIPRAZINE] Drug Allergy 9 Other: See Comments [facility] (20 sources) Codeine; Translations: [codeine] Drug Allergy 5 Other: See Comments [facility] (20 sources) HYDROmorphone; Translations: [HYDROMORPHONE (BULK)] Drug Allergy 5 GI Upset [facility] (20 sources) QUEtiapine; Translations: [quetiapine] Drug Allergy 9 Other: See Comments [facility] (20 sources) traMADol; Translations: [TRAMADOL HCL] Drug Allergy 5 GI Upset [facility] (2 sources) HYDROmorphone; Translations: [hydromorphone] Drug Allergy [facility] (2 sources) traMADol; Translations: [tramadol] Drug Allergy [facility] Medications Current Medications Medication Drug Class(es) Dates [...] every six hours as needed for pain [place] 325- 5 mg oral tablet Dose = [...] Coronary atherosclerosis; Translations: [Atherosclerotic heart disease of elem coronary artery without angina pectoris] Onset: 2 [...] (20 sources) Patient encounter status; Translations: [Other moth exterminator (current) drug therapy] Onset: 07-01-2022 Episodic Other aftercare (1 source) Other moth exterminator (current) drug therapy; Translations: [Encounter for long-term [...] 08:56-0500 Body weight 128.19 kg Seda Rajguru REFLECTOR DRILLER AND DEBURRER.EDUCATIONAL AUDIOLOGIST Work Phone: [facility] 05-14-2023 08:56-0500 Diastolic blood pressure 58 mm[Hg] Seda Rajguru REFLECTOR DRILLER AND DEBURRER.EDUCATIONAL AUDIOLOGIST Work Phone: [facility] 05-14-2023 08:56-0500 Heart rate 80 /min Seda Rajguru REFLECTOR DRILLER AND DEBURRER.EDUCATIONAL AUDIOLOGIST Work Phone: [facility] 05-14-2023 08:56-0500 Systolic blood pressure 122 mm[Hg] Seda Rajguru REFLECTOR DRILLER AND DEBURRER.EDUCATIONAL AUDIOLOGIST Work Phone: [facility] 04-02-2023 13:37-0500 Body weight 126.1 kg Seda Rajguru REFLECTOR DRILLER AND DEBURRER.EDUCATIONAL AUDIOLOGIST Work Phone: [facility] 04-02-2023 13:37-0500 Diastolic blood pressure 66 mm[Hg] Seda Rajguru REFLECTOR DRILLER AND DEBURRER.EDUCATIONAL AUDIOLOGIST Work Phone: [facility] 04-02-2023 13:37-0500 Heart rate 80 /min Seda Rajguru REFLECTOR DRILLER AND DEBURRER.EDUCATIONAL AUDIOLOGIST Work Phone: [facility] 04-02-2023 13:37-0500 Systolic blood pressure 138 mm[Hg] Seda Rajguru REFLECTOR DRILLER AND DEBURRER.EDUCATIONAL AUDIOLOGIST Work Phone: [facility] 03-06-2023 11:02-0400 Body weight 127.87 kg Jericho Tinoco MD Work Phone: [facility] 03-06-2023 11:02-0400 Diastolic blood pressure 60 mm[Hg] Jericho Tinoco MD Work Phone: [facility] 03-06-2023 11:02-0400 Heart rate 64 /min Jericho Tinoco MD Work Phone: [facility] 03-06-2023 11:02-0400 Respiratory rate 20 /min Jericho Tinoco MD Work Phone: [facility] 03-06-2023 11:02-0400 Systolic blood pressure 118 mm[Hg] Jericho Tinoco MD Work Phone: [facility] 01-21-2023 12:56-0400 Body weight 124.29 kg Jamilah Memo PA-C Work Phone: [facility] 01-21-2023 12:56-0400 Diastolic blood pressure 60 mm[Hg] Jamilah Memo PA-C Work Phone: [facility] 01-21-2023 12:56-0400 Heart rate 62 /min Jamilah Memo PA-C Work Phone: [facility] 01-21-2023 12:56-0400 Respiratory rate 15 /min Jamilah Memo PA-C Work Phone: [facility] 01-21-2023 12:56-0400 SaO2% (BldA) [Mass fraction] 97 % Jamilah Memo PA-C Work Phone: [facility] 01-21-2023 12:56-0400 Systolic blood pressure 122 mm[Hg] Jamilah Memo PA-C Work Phone: [facility] 01-15-2023 08:17-0400 Body weight 126.55 kg Seda Rajguru REFLECTOR DRILLER AND DEBURRER.EDUCATIONAL AUDIOLOGIST Work Phone: [facility] 01-15-2023 08:17-0400 Diastolic blood pressure 58 mm[Hg] Seda Rajguru REFLECTOR DRILLER AND DEBURRER.EDUCATIONAL AUDIOLOGIST Work Phone: [facility] 01-15-2023 08:17-0400 Heart rate 76 /min Seda Rajguru REFLECTOR DRILLER AND DEBURRER.EDUCATIONAL AUDIOLOGIST Work Phone: [facility] 01-15-2023 08:17-0400 Systolic blood pressure 132 mm[Hg] Sdea Rajguru REFLECTOR DRILLER AND DEBURRER.EDUCATIONAL AUDIOLOGIST Work Phone: [facility] 07-20-2022 15:15-0400 Body height 156.2 cm Pulm Wstr Work Phone: [facility] 07-20-2022 15:15-0400 Body weight 119.75 kg Pulm Wstr Work Phone: [facility] 07-19-2022 14:43-0400 Body weight 119.75 kg Talia Dias MD Work Phone: [facility] 07-19-2022 14:43-0400 Diastolic blood pressure 84 mm[Hg] Talia Dias MD Work Phone: [facility] 07-19-2022 14:43-0400 Heart rate 75 /min Talia Dias MD Work Phone: [facility] 07-19-2022 14:43-0400 Respiratory rate 18 /min Talia Dias MD Work Phone: [facility] 07-19-2022 14:43-0400 SaO2% (BldA) [Mass fraction] 97 % Talia Dias MD Work Phone: [facility] 07-19-2022 14:43-0400 Systolic blood pressure 138 mm[Hg] Talia Dias MD Work Phone: [facility] 06-01-2022 10:40-0500 Body weight 118.84 kg Joanna Older REFLECTOR DRILLER AND DEBURRER.EDUCATIONAL AUDIOLOGIST Work Phone: [facility] 06-01-2022 10:40-0500 Diastolic blood pressure 60 mm[Hg] Joanna Older REFLECTOR DRILLER AND DEBURRER.EDUCATIONAL AUDIOLOGIST Work Phone: [facility] 06-01-2022 10:40-0500 Heart rate 68 /min Joanna Older REFLECTOR DRILLER AND DEBURRER.EDUCATIONAL AUDIOLOGIST Work Phone: [facility] 06-01-2022 10:40-0500 Respiratory rate 20 /min Joanna Older REFLECTOR DRILLER AND DEBURRER.EDUCATIONAL AUDIOLOGIST Work Phone: [facility] 06-01-2022 10:40-0500 SaO2% (BldA) [Mass fraction] 98 % Joanna Older REFLECTOR DRILLER AND DEBURRER.EDUCATIONAL AUDIOLOGIST Work Phone: [facility] 06-01-2022 10:40-0500 Systolic blood pressure 114 mm[Hg] Joanna Older REFLECTOR DRILLER AND DEBURRER.EDUCATIONAL AUDIOLOGIST Work Phone: [facility] 04-11-2022 16:17-0500 Body weight 118.84 kg Jericho Tinoco MD Work Phone: [facility] 04-11-2022 16:17-0500 Diastolic blood pressure 64 mm[Hg] Jericho Tinoco MD Work Phone: [facility] 04-11-2022 16:17-0500 Heart rate 69 /min Jericho Tinoco MD Work Phone: [facility] 04-11-2022 16:17-0500 Respiratory rate 20 /min Jericho Tinoco MD Work Phone: [facility] 04-11-2022 16:17-0500 SaO2% (BldA) [Mass fraction] 98 % Jericho Tinoco MD Work Phone: [facility] 04-11-2022 16:17-0500 Systolic blood pressure 94 mm[Hg] Jericho Tinoco MD Work Phone: [facility] 03-08-2022 15:35-0400 Body temperature 98.42 [degF] ROBIN RIGGS MD [facility] 03-08-2022 15:35-0400 Diastolic blood pressure 82 mm[Hg] ROBIN RIGGS MD [facility] 03-08-2022 15:35-0400 Heart rate 82 /min ROBIN RIGGS MD [facility] 03-08-2022 15:35-0400 Respiratory rate 16 /min ROBIN RIGGS MD [facility] 03-08-2022 15:35-0400 Systolic blood pressure 154 mm[Hg] ROBIN RIGGS MD [facility] 03-01-2022 10:50-0400 Body weight 120.2 kg Jericho Tinoco MD Work Phone: [facility] 03-01-2022 10:50-0400 Diastolic blood pressure 76 mm[Hg] Jericho Tinoco MD Work Phone: [facility] 03-01-2022 10:50-0400 Heart rate 69 /min Jericho Tinoco MD Work Phone: [facility] 03-01-2022 10:50-0400 Respiratory rate 14 /min Jericho Tinoco MD Work Phone: [facility] 03-01-2022 10:50-0400 SaO2% (BldA) [Mass fraction] 98 % Jericho Tinoco MD Work Phone: [facility] 03-01-2022 10:50-0400 Systolic blood pressure 124 mm[Hg] Jericho Tinoco MD Work Phone: [facility] 01-18-2022 13:02-0400 Body height 156.2 cm Jamilah Memo PA-C Work Phone: [facility] 01-18-2022 13:02-0400 Body weight 121.56 kg Jamilah Memo PA-C Work Phone: [facility] 01-18-2022 13:02-0400 Diastolic blood pressure 68 mm[Hg] Jamilah Memo PA-C Work Phone: [facility] 01-18-2022 13:02-0400 Heart rate 62 /min Jamilah Memo PA-C Work Phone: [facility] 01-18-2022 13:02-0400 Respiratory rate 14 /min Jamilah Memo PA-C Work Phone: [facility] 01-18-2022 13:02-0400 SaO2% (BldA) [Mass fraction] 96 % Jamilah Memo PA-C Work Phone: [facility] 01-18-2022 13:02-0400 Systolic blood pressure 122 mm[Hg] Jamilah Memo PA-C Work Phone: [facility] 01-18-2022 12:46-0400 Body height 156.2 cm Respiratory Wstr Work Phone: [facility] 01-18-2022 12:46-0400 Body weight 121.97 kg Respiratory Wstr Work Phone: [facility] 01-18-2022 12:46-0400 Heart rate 62 /min Respiratory Wstr Work Phone: [facility] 01-18-2022 12:46-0400 Respiratory rate 14 /min Respiratory Wstr Work Phone: [facility] 01-18-2022 12:46-0400 SaO2% (BldA) [Mass fraction] 96 % Respiratory Wstr Work Phone: [facility] Encounters Encounter Date Encounter Type Care Provider Facility Start: 05-14-2023 End: 05-15-2023 ambulatory JERICHO TINOCO Facility:[facility] Start: 05-14-2023 End: 05-14-2023 Patient encounter procedure Seda Quiroz APRN.EDUCATIONAL AUDIOLOGIST Work Phone: Psychiatry Procedures Date Procedure Procedure [...] Activity Detail Author Start: 09-03-2027 Colonoscopy COLONOSCOPY [facility] Start: 09-03-2027 COLORECTAL CANCER SCREENING COLORECTAL CANCER SCREENING [facility] Start: 09-03-2027 Screening for malign ant neoplasm of colon [facility] Start: 08-24-2025 Urine microalbumin profile [facility] Start: 04-12-2024 Glaucoma screening Dilated Retinal E xam [facility] Start: 03-15-2024 Mammography Mammogram Screening [facility] Start: 03-15-2024 Screening for malign ant neoplasm of breast Mammogram Screening [facility] Start: 03-06-2024 Annual PCP Team Cold Type Artist regan Disease Visit Annual PCP Team Chronic Disease Visit [facility] Start: 03-06-2024 Creatinine measurement Serum Creatin ine [facility] Start: 03-06-2024 Hepatitis B screening Urine Al bumin:Creatinine Ratio [facility] Start: 03-06-2024 Serum Creatinine Serum Creatinine Cl [facility] Start: 11-03-2023 Influenza vaccination Influenza Vacc ine (#1) [facility] Immunizations Immunization Date Immunization Notes Care Provider Fa nestor 04-07-2019 influenza, injectabl e, quadrivalent, contains preservative Jamilah Memo PA-C Work Phone: [facility] 04-07-2019 influenza virus vacc ine, unspecified formulation Seda Quiroz APRN.CNP Work Phone: [facility] 02-04-2018 influenza, high dose seasonal, preservative-free Jamilah Memo PA-C Work Phone: [facility] Work Phone: 02-20-2017 influenza, injectabl e, quadrivalent, contains preservative Jamilah Memo PA-C Work Phone: [facility] 03-02-2016 influenza, injectabl e, quadrivalent, contains preservative Jamilah Memo PA-C Work Phone: [facility] 03-02-2016 pneumococcal polysaccharide vaccine, 23 valent Jamilah Memo PA-C Work Phone: [facility] 08-25-2015 tetanus toxoid, redu wayne diphtheria toxoid, and acellular pertussis vaccine, adsorbed Jamilah Galvan PA-C Work Phone: [facility] 05-26-2015 influenza, injectabl e, quadrivalent, contains preservative Jamilah Galvan PA-C Work Phone: [facility] Payers Date Payer Category Payer Medicaid [facility] MEDICAID MYC ARE [facility] MEDICAID [id number] 2015-Present [phone] [address] [place] [address] Medicaid [id number] 2015 Medicare [id number] 2015 Medicare [facility] MEDICARE MYC ARE [facility] MEDICARE [id number] 2015-Present [phone] [address] [place] [address] Medicare [id number] 2015 Unknown [id number] 1966 Unknown [id number] 1966 Unknown [id number] Social History Date Type Detail Facility Start: 1981 End: 07-19-2022 Tobacco smoking status NHIS Smokes tobacco daily [facility] Work Phone: Start: 1981 History of tobacco use Cigarette Smo ker [facility] Work Phone: Start: 12-16-2019 End: 09-20-2022 Cigarettes smoked current (pack per day) - Reported 1 [facility] Start: 12-16-2019 End: 07-19-2022 Tobacco use and exposure Smokeless tobacco non-user [facility] Work Phone: Start: 07-17-2021 End: 06-01-2022 Alcohol intake Current drinker of alcohol (finding) [facility] Start: 10-25-2020 History SDOH Alcohol Comment occasional, rarely [facility] Start: 02-22-2020 End: 08-27-2022 History SDOH Financial 5 [facility] Start: 02-22-2020 End: 08-27-2022 History SDOH Food Worry 1 [facility] Start: 02-22-2020 End: 08-27-2022 History SDOH Transport Med 2 [place] [facility] Start: 1965 Sex Assigned At Not on file C [facility] Start: 07-07-2021 End: 01-31-2022 Exposure to SARS-CoV-2 (event) Not sure [facility] Start: 12-02-2021 History SDOH Alcohol Comment rare 1 drink [facility] Start: 12-02-2021 End: 08-27-2022 History SDOH Physical Activity DPW 0 [facility] Start: 12-02-2021 End: 01-18-2022 Tobacco Comment from age 16 [facility] Start: 03-05-2019 Tobacco smoking status Heavy t obacco smoker (finding) [facility] Sex Assigned At Sex [facility] Start: 06-22-2022 End: 04-02-2023 Alcohol intake Ex-drinker (finding) [facility] Start: 07-19-2022 Tobacco Comment from age 16. O ne PPD in past. Cut to 1/2 PPD in April [facility] Start: 08-27-2022 History SDOH Social Connections Phone 3 [facility] Start: 08-27-2022 History SDOH Social Connections Living 8 [facility] Start: 08-27-2022 End: 09-20-2022 Social connection and isolation panel [facility] Do you belong to any clubs or organizations such as denominational groups, unions, fraternal or athletic groups, or school groups? No [facility] Are you now , , , , never or living with a partner? Living with partner [facility] How often to you hav e a drink containing alcohol? Monthly or less [facility] How many standard dr inks containing alcohol do you have on a typical day? 1 or 2 [facility] How often do you hav e 6 or more drinks on 1 occasion? Never [facility] How hard is it for y ou to pay for the very basics like food, housing, medical care, and heating Not hard at all [facility] Do you feel stress - tense, restless, nervous, or anxious, or unable to sleep at night because your mind is troubled all the time - these days [OSQ] To some extent [facility] (I/We) worried wheth er (my/our) food would run out before (I/we) got money to buy more. Never true [facility] Medical Equipment Procedure Code Equipment Code Equipment Origin al Text Equipment Identifier Dates Spacer Avs 4d 8m m Spinal Bone Plug - [id number] Start: 05-30-2019 [place] Drill Bit 12mm X 23mm [id number] Start: 05-30-2019 Self Starting Variable Screw Size 4.0mm X 14mm [id number] Start: 05-30-2019 [place] Cervical P late 1-Level 22mm [id number] Start: 05-30-2019 Functional Status Date Assessment Result Facility 03-08-2022 Functional Status Standard Safet y ID band on, Call device within reach, Bed in low position, Wheels locked, Upper/Half-Length side-rails up, Bedside Cart Locked, Safety level maintained [facility] Mental Status Date Assessment Result Facility 03-08-2022 Mental Status Orientation Oriented x 4 [facility] Clinical Notes 01-25-2020 to 05-14-2023 Seda Quiroz APRN.CNP - 05/14/2023 9:02 AM Seda Quigley APRN.CNP - 04/02/2023 2:10 PM ESTTelephone Encounter - Michelle Sanchez LPN - 03/19/2023 2:57 PM ESTPatient Instructions Note Date & Type Note Facility 05-14-2023 Note HNO ID: [id number] Author: SEDA QUIROZ APRN.CNP Service: ? Author [...] really hard time sitting in the car. [place] that the car was caving in on [...] myocardial infarction of lateral wall (HCC) 04/04/2022 [facility] Cerebellar mass 1995 mass versus infarct Cervical [...] Type 2 diabetes mellitus without complication ([facility]) 03/02/2016 PAST SURGICAL HISTORY Procedure Laterality Date ANTERIOR DISKECTOMY, CERVICAL, EACH ADDL 05/30/2019 ACDF C5-6 - anterior cervical discectomy and arthrodesis ARTHRP KNE CONDYLEANDPLATU MEDIALANDLAT COMPARTMENTS Left 01/14/2018 COLONOSCOPY AND BIOPSY 09/02/2017 Dr. cooney EGPhil 01/23/2021 KNEE ARTHROSCOP MENISCUS REPAIR MED/LAT Left 06/22/2016 partial medial meniscectomy LUMBAR OR CAUDAL EPIDURAL INJECTION 01/2017 multiple since 2014. NEUROPLASTY AND/TRANSPOS MEDIAN NRV CARPAL TUNNE Left 08/30/2009 [facility] PAST SURGICAL HISTORY OF 05/30/2019 C5-[address] Grace Long PT ED HEART AND VASCULAR Cardiac Stent [facility] 11/30/22 S PROBE PERC LUMBAR DISCECTOMY 04/2000 [facility] Current Outpatient Medications Medication Sig Dispense [...] 3 escitalopram o (more content not included)... [facility] 05-14-2023 History of Presen t illness [...] really hard time sitting in the car. [place] that the car was caving in on [...] myocardial infarction of lateral wall (HCC) 04/04/2022 [facility] Cerebellar mass 1995 mass versus infarct Cervical [...] Type 2 diabetes mellitus without complication ([facility]) 03/02/2016 PAST SURGICAL HISTORY Procedure Laterality Date ANTERIOR DISKECTOMY, CERVICAL, EACH ADDL 05/30/2019 ACDF C5-6 - anterior cervical discectomy and arthrodesis ARTHRP KNE CONDYLE&PLATU MEDIAL&LAT COMPARTMENTS Left 01/14/2018 COLONOSCOPY AND BIOPSY 09/02/2017 Dr. ivet HAGER 01/23/2021 KNEE ARTHROSCOP MENISCUS REPAIR MED/LAT Left 06/22/2016 partial medial meniscectomy LUMBAR OR CAUDAL EPIDURAL INJECTION 01/2017 multiple since 2014. NEUROPLASTY &/TRANSPOS MEDIAN NRV CARPAL TUNNE Left 08/30/2009 [facility] PAST SURGICAL HISTORY OF 05/30/2019 C5-[address] Grace Long PT ED HEART AND VASCULAR Cardiac Stent [facility] 04/04/22 S PROBE PERC LUMBAR DISCECTOMY 04/2000 [facility] Current Outpatient Medications Medication Sig Dispense [...] REVIEWED: Psychiatric scales, Electronic medical record, and [employer] notes DIAGNOSIS: Bipolar disorder, currently depressed, moderate [...] which included preparing to see the patient, [id number] patient care, completing clinical documentation, obtaining and/or [...] TIME: 9:03 AM documented in this encounter [facility] 04-02-2023 Note HNO ID: [id number] Author: Seda Quiroz APRN.CNP Service: ? Author [...] struggling with shortness of breath. Saw her drywall sander and was notified that her lung function was normal. Has been following up with her dockworker. Had to take Nitro due to chest [...] Acute myocardial infarction of lateral wall ([facility]) 04/04/2022 [facility] Cerebellar mass 1995 mass versus infarct Cervical cord compression with myelopathy ([facility]) 05/28/2019 Depression 04/11/2015 Disc degeneration, lumbar 2000 [...] Type 2 diabetes mellitus without complication ([facility]) 03/02/2016 PAST SURGICAL HISTORY Procedure Laterality Date ANTERIOR DISKECTOMY, CERVICAL, EACH ADDL 05/30/2019 ACDF C5-6 - anterior cervical discectomy and arthrodesis ARTHRP KNE CONDYLEANDPLATU MEDIALANDLAT COMPARTMENTS Left 01/14/2018 COLONOSCOPY AND BIOPSY 09/02/2017 Dr. cooney EGD 01/23/2021 KNEE ARTHROSCOP MENISCUS REPAIR MED/LAT Left 06/22/2016 partial medial meniscectomy LUMBAR OR CAUDAL EPIDURAL INJECTION 01/2017 multiple since 2014. NEUROPLASTY AND/TRANSPOS MEDIAN NRV CARPAL TUNNE Left 08/30/2009 [facility] PAST SURGICAL HISTORY OF 05/30/2019 C5-[address] Grace Long PT ED HEART AND VASCULAR Cardiac Stent [facility] 04/04/22 S PROBE PERC LUMBAR DISCECTOMY 04/2000 [facility] Current Outpatient Medications Medication Sig Dispense [...] 1 tablet by (more content not included)... [facility] 04-02-2023 History of Presen t illness [...] struggling with shortness of breath. Saw her drywall sander and was notified that her lung function was normal. Has been following up with her dockworker. Had to take Nitro due to chest [...] myocardial infarction of lateral wall (HCC) 04/04/2022 [facility] Cerebellar mass 1995 mass versus infarct Cervical [...] &/TRANSPOS MEDIAN NRV CARPAL TUNNE Left 08/30/2009 [facility] PAST SURGICAL HISTORY OF 05/30/2019 C5-[address] Grace Long PT ED HEART AND VASCULAR Cardiac Stent [facility] 04/04/22 S PROBE PERC LUMBAR DISCECTOMY 04/2000 [facility] Current Outpatient Medications Medication Sig Dispense [...] which included preparing to see the patient, [id number] patient care, completing clinical documentation, obtaining and/or [...] TIME: 2:10 PM documented in this encounter [facility] 03-19-2023 Miscellaneous Notes Patient notified and voices [...] for last apt. documented in this encounter [facility] 03-15-2023 Note HNO ID: [id number] Author: Marta Mosqueda RT(R) Service: ? Author [...] RT Arias(R) March 15, 2023 1:24 PM [facility] 03-11-2023 Miscellaneous Notes Patient has been [...] Gricelda Duckworth LPN. documented in this encounter [facility] 03-07-2023 Note HNO ID: [id number] Author: Aron Navarro Service: ? Author Type: [...] RTC in 3-4 months. Aron Navarro DPM [facility] 03-07-2023 Note HNO ID: [id number] Author: Pepper Estrada LPN Service: ? Author Type: LICENSED NURSE Type: Progress Notes Filed: 03/08/2023 10:31 PM Note Text: AMB ROOMING INTAKE FLOWSHEET DATA Patient presents with: Left Foot - Established Patient, Diabetic Foot Care Right Foot - Established Patient, Diabetic Foot Care Pepper Estrada LPN [facility] 03-06-2023 Note HNO ID: [id number] Author: Jericho Tinoco MD Service: ? Author Type: Physician Type: Progress Notes Filed: 03/06/2023 12:34 PM Note Text: This note was created using Lulu. Subjective Juan Eagle is a 58 year old female. She's been dealing with right wrist pain for about 2 months, with no injury. She reported taking up to 12 ibuprofen per day. Pain was worse with movement. Bracing helped some. X rays showed no acute findings. Her joints have been hurting more in general. 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 content development manager in [place], so had been off Humira for more [...] (Bmi) of 50.0 to 59.9 in Adult ([facility]) Persistent Headaches S/P Cervical Spinal Fusion Tobacco Use Disorder Moderate Persistent Asthma Without Complication Psoriatic Arthritis ([facility]) Irritable Bowel Syndrome With Diarrhea Stage 3a Chronic Kidney Disease ([facility]) Coronary Artery Disease Involving [place] Coronary Artery of [place] Heart Without Angina Pectoris St Elevation Myocardial Infarction Involving Left Circumflex Coronary Artery ([facility]) Ischemic Cardiomyopathy Encounter for Long-Term (Current) Use of Medications Bipolar Disorder ([facility]) Ptsd (Post-Traumatic Stress Disorder) Dyskinesia, Tardive [...] She is aler (more content not included)... [facility] 03-06-2023 History of Presen t illness Narrative This note was created using iconDialriter. Subjective Juan Eagle is a 58 year old female. She's been dealing with right wrist pain for about 2 months, with no injury. She reported taking up to 12 ibuprofen per day. Pain was worse with movement. Bracing helped some. X rays showed no acute findings. Her joints have been hurting more in general. 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 content development manager in [place], so had been off Humira for more [...] Mellitus With Stage 3a Chronic Kidney Disease ([facility]) Mixed Hyperlipidemia Jose On Cpap Radiculopathy, Lumbar Region Postlaminectomy Syndrome Ddd (Degenerative Disc Disease), Lumbar Edema Class 3 Severe Obesity With Body Mass Index (Bmi) of 50.0 to 59.9 in Adult ([facility]) Persistent Headaches S/P Cervical Spinal Fusion Tobacco Use Disorder Moderate Persistent Asthma Without Complication Psoriatic Arthritis ([facility]) Irritable Bowel Syndrome With Diarrhea Stage 3a Chronic Kidney Disease ([facility]) Coronary Artery Disease Involving [place] Coronary Artery of [place] Heart Without Angina Pectoris St Elevation Myocardial Infarction Involving Left Circumflex Coronary Artery ([facility]) Ischemic Cardiomyopathy Encounter for Long-Term (Current) Use of Medications Bipolar Disorder ([facility]) Ptsd (Post-Traumatic Stress Disorder) Dyskinesia, Tardive [...] Jericho Tinoco MD documented in this encounter [facility] 02-20-2023 Miscellaneous Notes Message to call office. Message to call office. Message to call office. Last: 01/15/2023 Noted-follow up 4 weeks 02/12/2023-cx'd by patient Covid exposure Next: NA documented in this encounter [facility] 01-21-2023 Note HNO ID: [id number] Author: Jamilah Galvan PA-C Service: ? Author Type: Physician Hose Mender Type: Progress Notes Filed: 01/21/2023 1:28 PM Note Text: Patient: Juan Eagle PCP: Jericho Tinoco MD CC: follow up HPI: Juan Eagle 57 year old morbidly obese female current 67-flpg-qjru smoker with PMH significant for GERD, HLD, JOSE on CPAP, DM2, MT in March 2022 coded 3 times s/p [...] all sleep. DME: Medical Service. Follow with [facility]. PAST MEDICAL HISTORY Diagnosis Date Acute myocardial infarction of lateral wall ([facility]) 04/04/2022 [facility] Cerebellar mass 1995 mass versus infarct Cervical cord compression with myelopathy ([facility]) 05/28/2019 Depression 04/11/2015 Disc degeneration, lumbar 2000 [...] 12/05/2015 Stage 3b chronic kidney disease ([facility]) 12/04/2021 Type 2 diabetes mellitus without complication ([facility]) 03/02/2016 Allergies: Codeine Other: See Comments Comment: [...] PAST SURGICAL HISTOR (more content not included)... [facility] 01-21-2023 History of Presen t illness Narrative Images from the original note were not included. Patient: Juan Eagle PCP: Jericho Tinoco MD CC: follow up HPI: Juan Eagle 57 year old morbidly obese female current 68-lfaz-xayt smoker with PMH significant for GERD, HLD, JOSE on CPAP, DM2, MT in March 2022 coded 3 times s/p [...] all sleep. DME: Medical Service. Follow with [facility]. PAST MEDICAL HISTORY Diagnosis Date Acute myocardial infarction of lateral wall (HCC) 04/04/2022 [facility] Cerebellar mass 1995 mass versus infarct Cervical [...] &/TRANSPOS MEDIAN NRV CARPAL TUNNE Left 08/30/2009 [facility] PAST SURGICAL HISTORY OF 05/30/2019 C5-[address] Grace Long PT ED HEART AND VASCULAR Cardiac Stent [facility] 04/04/22 S PROBE PERC LUMBAR DISCECTOMY 04/2000 [facility] I reviewed the past medical history, [...] obstruction Imaging / Diagnostic Studies: CXR 03/2022 [facility] reviewed showing bilateral hazy opacities [...] Jamilah Galvan PA-C documented in this encounter [facility] 01-15-2023 Miscellaneous Notes Medication sent to [email or web address]. [facility] does have this medication in stock, Patient aware you will send there. [facility] calls to report that Ingrezza is a specialty medication and [facility] cannot get that med. Will need to try somewhere else. Elham Graves LPN documented in this encounter [facility] 01-15-2023 Note HNO ID: [id number] Author: Cassie Kendrick RT(R) Service: Radiology Author [...] Kendrick RT(R) January 15, 2023 9:25 AM [facility] 01-15-2023 Note HNO ID: [id number] Author: Fidel Bazan APRN.EDUCATIONAL AUDIOLOGIST Service: ? Author Type: Nurse Practitioner Type: [...] Acute myocardial infarction of lateral wall ([facility]) 04/04/2022 [facility] Cerebellar mass 1995 mass versus infarct Cervical cord compression with myelopathy ([facility]) 05/28/2019 Depression 04/11/2015 Disc degeneration, lumbar 2000 [...] Type 2 diabetes mellitus without complication ([facility]) 03/02/2016 PAST SURGICAL HISTORY Procedure Laterality Date ANTERIOR DISKECTOMY, CERVICAL, EACH ADDL 05/30/2019 ACDF C5-6 - anterior cervical discectomy and arthrodesis ARTHRP KNE CONDYLEANDPLATU MEDIALANDLAT COMPARTMENTS Left 01/14/2018 COLONOSCOPY AND BIOPSY 09/02/2017 Dr. ivet HAGER 01/23/2021 KNEE ARTHROSCOP MENISCUS REPAIR MED/LAT Left 06/22/2016 partial medial meniscectomy LUMBAR OR CAUDAL EPIDURAL INJECTION 01/2017 multiple since 2014. NEUROPLASTY AND/TRANSPOS MEDIAN NRV CARPAL TUNNE Left 08/30/2009 [facility] PAST SURGICAL HISTORY OF 05/30/2019 C5-[address] Grace Long PT ED HEART AND VASCULAR Cardiac Stent [facility] 04/04/22 S PROBE PERC LUMBAR DISCECTOMY 04/2000 [facility] ALLERGIES Codeine, Seroquel [Quetiapine], Vraylar [Cariprazine], [...] Hypertension Sister B (more content not included)... [facility] 01-15-2023 Note HNO ID: [id number] Author: Seda Quiroz APRN.EDUCATIONAL AUDIOLOGIST Service: ? Author Type: Nurse Practitioner Type: [...] Ideations: No homicidal (more content not included)... [facility] 01-15-2023 Instructions Seda Quiroz, LEONELA.DAYANARA - 01/15/2023 9:08 AM EDT Aziza Pearson, It was good to talk with you today. Below is a summary of the plan that we discussed during your appointment for reference. Of course, if you have any questions or concerns do not hesitate to reach out to me via a message or call. Seda Reynoso APRN.EDUCATIONAL AUDIOLOGIST PLAN AND FOLLOW UP: YOU SHOULD SEEK [...] - Call the National Suicide Hotline at 5-611-KSOXJKX ( ) or 9-812-831-TALK (1796) - Text 4HOPE to 064626 Medication Update: Lamictal 200 mg - take 1/2 tablet in the morning and 1 tablet in the evening. Ingrezza 40 mg - take 1 capsule every morning. Continue the rest of your psychiatric medications at the same dose. Next appointment: February 12 at 9:30 am in person -- You may call the department appointment line at [phone] to schedule your appointment. -- Please call my nurse Michelle at [phone] or send me a message in [employer] with any questions or concerns between appointments. documented in this encounter [facility] 01-15-2023 History of Presen t illness Narrative [...] referral for the patient to contact in [place]. Follow up in 4 weeks. Medication Update: [...] which included preparing to see the patient, dfng-lo-ttad patient care, completing clinical documentation, and counseling and educating the patient/family/caregiver, ordering medications/labs. Seda Quiroz APRN.EDUCATIONAL AUDIOLOGIST January 15, 2023 8:23 AM This note was partially generated using [email or web address] voice recognition system. Note was reviewed for accuracy. There may be minor misspellings or grammar miscues with [email or web address] voice recognition. documented in this encounter [facility] 12-04-2022 Note HNO ID: [id number] Author: Aron Navarro Service: ? Author Type: [...] Acute myocardial infarction of lateral wall ([facility]) 04/04/2022 [facility] Cerebellar mass 1995 mass versus infarct Cervical cord compression with myelopathy ([facility]) 05/28/2019 Depression 04/11/2015 Disc degeneration, lumbar 2000 [...] Type 2 diabetes mellitus without complication ([facility]) 03/02/2016 Current Outpatient Medications Medication Sig dulaglutide [...] AND/TRANSPOS MEDIAN NRV CARPAL TUNNE Left 08/30/2009 [facility] PAST SURGICAL HISTORY OF 05/30/2019 C5-[address] Grace Long PT ED HEART AND VASCULAR Cardiac Stent [facility] 04/04/22 S PROBE PERC LUMBAR DISCECTOMY 04/2000 [facility] FAM (more content not included)... [facility] 12-04-2022 Note HNO ID: [id number] Author: Pepper Estrada LPN Service: ? Author Type: LICENSED NURSE Type: Progress Notes Filed: 12/05/2022 6:45 AM Note Text: AMB ROOMING INTAKE FLOWSHEET DATA Patient presents with: Left Foot - Established Patient, Diabetic Foot Care Right Foot - Established Patient, Diabetic Foot Care Pepper Estrada LPN [facility] 12-04-2022 Instructions Aron Navarro - 12/04/2022 [...] (or decreased sensation in your feet) a major assembly inspector should always cut your toenails. Be Careful [...] Go to your health care provider or major assembly inspector to treat these conditions. documented in this encounter [facility] 12-04-2022 History of Presen t illness Narrative [...] myocardial infarction of lateral wall (HCC) 04/04/2022 [facility] Cerebellar mass 1995 mass versus infarct Cervical [...] &/TRANSPOS MEDIAN NRV CARPAL TUNNE Left 08/30/2009 [facility] PAST SURGICAL HISTORY OF 05/30/2019 C5-[address] Grace Long PT ED HEART AND VASCULAR Cardiac Stent [facility] 04/04/22 S PROBE PERC LUMBAR DISCECTOMY 04/2000 [facility] FAMILY HISTORY Problem Relation Age of [...] Objective: [facility] Constitutional: Pt is a well developed 57 [...] diabetes mellitus due to underlying condition ([facility]) (primary encounter diagnosis) (L84) Callus of foot [...] Pepper Estrada LPN documented in this encounter [facility] 11-16-2022 Miscellaneous Notes Letter faxed to number [...] a letter and it needs faxed to [phone]. Sofi Carrion RN documented in this encounter [facility] 11-07-2022 Note Patient Outreach (IN [facility]) JUAN EAGLE ([id number]) 1965 F CHT Date Time Provider Department [...] Date Reviewed: 08/28/2022 Reviewed by: Joanna Arce APRN.EDUCATIONAL AUDIOLOGIST - Fully Assessed Visit Diagnosis:Encounter for screening mammogram for breast cancer [Z12.31] Order(s):[facility] SCREENING [[id number]] Order #: [id number] FUTURE Prescriptions as of 11/12/2022 - dulaglutide [...] (HCC) [N18.31] 12/04/2021 Coronary artery disease involving elem andre*04/11/2022 ST elevation myocardial infarction involving le*04/11/2022 Ventricular fibrillation (HCC) [I49.01] 04/11/2022 08/28/2022 Ischemic cardiomyopathy [I25.5] 04/11/2022 Encounter for long-term (current) use of medica*07/01/2022 Bipolar disorder (HCC) [F31.9] 07/01/2022 PTSD (post-traumatic stress disorder) [F43.10] 07/01/2022 Dys (more content not included)... [facility] 09-20-2022 Note HNO ID: [id number] Author: Seda Quiroz APRN.EDUCATIONAL AUDIOLOGIST Service: ? Author Type: Nurse Practitioner Type: [...] visit. Either the patient or their legal customer response representative has been informed of the risks [...] which included preparing to see the patient, oqfc-ll-bcmu patient care, completing clinical documentation, and counseling and educating the patient/family/caregiver, ordering medications/labs. Seda Quiroz APRN.CNP September 20, 2022 10:20 AM This note was partially generated using [email or web address] voice recognition system. Note was reviewed for accuracy. There may be minor misspellings or grammar miscu (more content not included)... [facility] 08-29-2022 Miscellaneous Notes Below results left on identified vm. Gricelda Duckworth LPN ----- Message from Joanna Arce APRN.CNP sent at 08/29/2022 8:41 AM EDT ----- Please let the patient know HgbA1c was 5.7, diabetes well controlled. Kidney function stable. The rest of her labs were within acceptable limits documented in this encounter [facility] 08-28-2022 Note HNO ID: [id number] Author: Joanna Arce APRN.CNP Service: ? Author [...] Acute myocardial infarction of lateral wall ([facility]) 04/04/2022 [facility] Cerebellar mass 1995 mass versus infarct Cervical cord compression with myelopathy ([facility]) 05/28/2019 Depression 04/11/2015 Disc degeneration, lumbar 2000 [...] Type 2 diabetes mellitus without complication ([facility]) 03/02/2016 PAST SURGICAL HISTORY Procedure Laterality Date ANTERIOR DISKECTOMY, CERVICAL, EACH ADDL 05/30/2019 ACDF C5-6 - anterior cervical discectomy and arthrodesis ARTHRP KNE CONDYLEANDPLATU MEDIALANDLAT COMPARTMENTS Left 01/14/2018 COLONOSCOPY AND BIOPSY 09/02/2017 Dr. cooney EGD 01/23/2021 KNEE ARTHROSCOP MENISCUS REPAIR MED/LAT Left 06/22/2016 partial medial meniscectomy LUMBAR OR CAUDAL EPIDURAL INJECTION 01/2017 multiple since 2014. NEUROPLASTY AND/TRANSPOS MEDIAN NRV CARPAL TUNNE Left 08/30/2009 [facility] PAST SURGICAL HISTORY OF 05/30/2019 C5-[address] Grace Long PT ED HEART AND VASCULAR Cardiac Stent [facility] 04/04/22 S PROBE PERC LUMBAR DISCECTOMY 04/2000 [facility] ALLERGIES Codeine, Seroquel [Quetiapine], Vraylar [Cariprazine], [...] Inhalation as instruct (more content not included)... [facility] 08-23-2022 Note HNO ID: [id number] Author: Seda Quiroz APRN.EDUCATIONAL AUDIOLOGIST Service: ? Author Type: Nurse Practitioner Type: [...] visit. Either the patient or their legal customer response representative has been informed of the risks [...] and Lamictal at the same dose. 3. Inspection Supervisor Dr. Savage consulted about restarting benzodiazepines. He [...] intent or plan (more content not included)... [facility] 08-23-2022 Instructions Seda Quiroz APRN.CNP - [...] - Call the National Suicide Hotline at 2-063-GZKAHZE ( ) or 1-763-370-TALK (5574) - Text 4HOPE to 042102 Medication Update: Lamictal 200 mg - take 1 tablet once daily. Continue the other psychiatric medications at the same dose. Next appointment: September 20 at 10:30 am Virtual -- Please call my nurse Michelle at [phone] or send me a message in [employer] with any questions or concerns between appointments. documented in this encounter [facility] 08-23-2022 History of Presen t illness Narrative [...] visit. Either the patient or their legal customer response representative has been informed of the risks [...] and Lamictal at the same dose. 3. Inspection Supervisor Dr. Savage consulted about restarting benzodiazepines. He [...] which included preparing to see the patient, hyyi-wi-pqhc patient care, completing clinical documentation, and counseling and educating the patient/family/caregiver, ordering medications/labs. Seda Quiroz APRN.CNP August 23, 2022 8:03 AM This note was partially generated using [email or web address] voice recognition system. Note was reviewed for accuracy. There may be minor misspellings or grammar miscues with Dragon voice recognition. documented in this encounter [facility] 07-20-2022 Note HNO ID: [id number] Author: FLASH Caceres Service: ? Author Type: Respiratory Therapist Type: Progress Notes Filed: 07/20/2022 3:28 PM Note Text: PULM FUNCTION SMARTBLOCK: Provider: Talia Dias MD Assisting Tech: FLASH Caceres Spirometry: 1 [facility] 07-20-2022 History of Presen t illness Narrative PULM FUNCTION SMARTBLOCK: Provider: Talia Dias MD Assisting Tech: FLASH Caceres Spirometry: 1 documented in this encounter [facility] 07-19-2022 Note HNO ID: [id number] Author: Talia Dias MD Service: ? Author Type: Physician Type: Progress Notes Filed: 07/19/2022 4:06 PM Note Text: . Respiratory [place] Note Patient name: Juan Eagle PCP: Jericho Tinoco MD CC: Shortness of breath HPI: Juan Eagle 57 year old morbidly obese female current 30-bjmm-mdpt smoker with PMH significant for GERD, HLD, JOSE on CPAP, DM2, psoriatic arthritis and asthma, former patient of Dr. Christensen, new to me. Current therapy consists of Breo Ellipta and as needed albuterol. No issues with her Breo Ellipta. Has had relatively good control of her asthma until recently. Status post MT at the end of March, coded 3 [...] eosinophilia Imaging / Diagnostic Studies: CXR 03/2022 [facility] reviewed showing bilateral hazy opacities without pleural effusions consistent with pulmonary edema Echocardiogram with ejection fraction 60%, grade 3 diastolic dysfunction and mild pulmonary hypertension PAST MEDICAL HISTORY Diagnosis Date Acute myocardial infarction of lateral wall ([facility]) 04/04/2022 [facility] Cerebellar mass 1995 mass versus infarct Cervical cord compression with myelopathy ([facility]) 05/28/2019 Depression 04/11/2015 Disc degeneration, lumbar 2000 [...] 12/05/2015 Stage 3b chronic kidney disease ([facility]) 12/04/2021 Type 2 diabetes mellitus without complication ([facility]) 03/02/2016 ALLERGIES Allergen Reactions Codeine Other: See [...] once daily. albuterol (more content not included)... [facility] 07-19-2022 History of Presen t illness Narrative Images from the original note were not included. . Respiratory [place] Note Patient name: Juan Eagle PCP: Jericho Tinoco MD CC: Shortness of breath HPI: Juan Eagle 57 year old morbidly obese female current 62-kcks-pdlg smoker with PMH significant for GERD, HLD, JOSE on CPAP, DM2, psoriatic arthritis and asthma, former patient of Dr. Christensen, new to me. Current therapy consists of Breo Ellipta and as needed albuterol. No issues with her Breo Ellipta. Has had relatively good control of her asthma until recently. Status post MT at the end of March, coded 3 [...] eosinophilia Imaging / Diagnostic Studies: CXR 03/2022 [facility] reviewed showing bilateral hazy opacities without pleural effusions consistent with pulmonary edema Echocardiogram with ejection fraction 60%, grade 3 diastolic dysfunction and mild pulmonary hypertension PAST MEDICAL HISTORY Diagnosis Date Acute myocardial infarction of lateral wall (HCC) 04/04/2022 [facility] Cerebellar mass 1995 mass versus infarct Cervical [...] &/TRANSPOS MEDIAN NRV CARPAL TUNNE Left 08/30/2009 [facility] PAST SURGICAL HISTORY OF 05/30/2019 C5-[address] Grace Long PT ED HEART AND VASCULAR Cardiac Stent [facility] 04/04/22 S PROBE PERC LUMBAR DISCECTOMY 04/2000 [facility] PMH, Social history, family history and [...] poor control of asthma 4. Cigarette smoker -17-cgiq-xfql smoker without sequelae of COPD -Smoking cessation recommended -PCP already referred patient to lung cancer screening clinic Talia Dias MD Respiratory [place] documented in this encounter [facility] 06-28-2022 Miscellaneous Notes Amitriptyline has refill left [...] Jamilah Gotti Pss documented in this encounter [facility] 06-28-2022 Miscellaneous Notes Pt called in stating she could not refill her Breo inhaler d/t pharmacy did not have refill orders. Call to [facility] to verify our order states 11 refills. Agnes, at [facility] states they are in the process of refilling Rx for pt and not sure where the miscommunication happened and states there are plenty of refills for pt. Returned call to pt to notify M with detailed message. documented in this encounter [facility] 06-22-2022 Miscellaneous Notes Nurse from [employer] [facility] did not contact patient. Patient is returning a call she received from nurse Loaiza. Please contact the patient again. documented in this encounter [facility] 06-22-2022 Note HNO ID: [id number] Author: Seda Quiroz APRN.EDUCATIONAL AUDIOLOGIST Service: ? Author Type: Nurse Practitioner Type: [...] she was in the car driving to [place]. She continues to take Lexapro and Lamictal. [...] Vrylar (TD). She was on the [employer] [place] that it helped with TD for the [...] AND/TRANSPOS MEDIAN NRV CARPAL TUNNE Left 08/30/2009 [facility] PAST SURGICAL HISTORY OF 05/30/2019 C5-[address] Grace Long S PROBE PERC LUMBAR DISCECTOMY 04/2000 [facility] Current Outpatie (more content not included)... [facility] 06-22-2022 Instructions Seda Quiroz APRN.DAYANARA - 06/22/2022 9:34 AM EST Aziza Pearson, It was good to meet and talk with you today. Below is a summary of the plan that we discussed during your appointment for reference. Of course, if you have any questions or concerns do not hesitate to reach out to me via a message or call. Best, Seda Quiroz APRN.EDUCATIONAL AUDIOLOGIST PLAN AND FOLLOW UP: YOU SHOULD SEEK [...] - Call the National Suicide Hotline at 6-702-VPJLMJF ( ) or 8-163-512-TALK (0905) - Text 6AMPX to 704421 Medication Update: - Restart Ambien 10 mg - take 1 tablet at bedtime to help with sleep. - Continue Lexapro and Lamictal at the same dose. Other: I left a message with your Inspection Supervisor's nurse Disah. She will fax over the latest EKG results from May so you don't have to do the EKG. She will call me back after speaking with Dr. Savage about the medications. Next appointment: --Schedule in 3 to 4 weeks or sooner if needed -- You may call the department appointment line at [phone] to schedule your appointment. -- Please call my nurse Michelle at [phone] or send me a message in [employer] with any questions or concerns between appointments. documented in this encounter [facility] 06-22-2022 History of Presen t illness Narrative [...] she was in the car driving to [place]. She continues to take Lexapro and Lamictal. [...] Vrylar (TD). She was on the [employer] [place] that it helped with TD for the [...] &/TRANSPOS MEDIAN NRV CARPAL TUNNE Left 08/30/2009 [facility] PAST SURGICAL HISTORY OF 05/30/2019 C5-[address] Grace Long S PROBE PERC LUMBAR DISCECTOMY 04/2000 [facility] Current Outpatient Medications Medication Sig Dispense [...] Previously followed by Jason Mendoza at the [facility] Therapist: Previously saw a therapist at the counseling center but they reported that she had graduated from it. Last engaged in therapy 4 years ago. Current Bilingual [employer]: No Last Hospitalization: None ECT: No Previous [...] history of use or dependence SPIRITUALITY: Cyndi [facility]: Juan Eagle is the 2nd of 5 siblings. The patient was born and raised in [place], [place]. She completed High school, Technical. She [...] and Lamictal at the same dose. 3. Inspection Supervisor Dr. Savage consulted about restarting benzodiazepines. He [...] which included preparing to see the patient, tyev-nd-jfxk patient care, completing clinical documentation, obtaining and/or [...] AM PAGER : documented in this encounter [facility] 06-01-2022 Note HNO ID: [id number] Author: Joanna Arce APRN.CNP Service: ? Author [...] AND/TRANSPOS MEDIAN NRV CARPAL TUNNE Left 08/30/2009 [facility] PAST SURGICAL HISTORY OF 05/30/2019 C5-[address] Grace Long S PROBE PERC LUMBAR DISCECTOMY 04/2000 [facility] ALLERGIES Codeine, Seroquel [Quetiapine], Vraylar [Cariprazine], [...] daily. Per Counseling (more content not included)... [facility] 06-01-2022 History of Presen t illness [...] &/TRANSPOS MEDIAN NRV CARPAL TUNNE Left 08/30/2009 [facility] PAST SURGICAL HISTORY OF 05/30/2019 C5-[address] Grace Long S PROBE PERC LUMBAR DISCECTOMY 04/2000 [facility] ALLERGIES Codeine, Seroquel [Quetiapine], Vraylar [Cariprazine], [...] psychiatrist. She is interested in seeing F cat sitter. - CONSULT TO PSYCHIATRY 2. Insomnia, unspecified type - ICD9: 780.52, ICD10: G47.00 See above. Increase Elavil to 50 mg at bedtime 3. Panic anxiety syndrome - ICD9: 300.01, ICD10: F41.0 See above. 4. Coronary artery disease involving elem coronary artery of elem heart without angina pectoris - ICD9: 414.01, [...] Joanna Arce APRN.CNP documented in this encounter [facility] 04-12-2022 Miscellaneous Notes After appt 04/11/22 pcp is asking for med profile [facility] Called [facility]. They are not able to do this. Pt will need to come to their store and request this. Message left to pt with this info Called [facility]. Message left with same request. documented in this encounter [facility] 04-11-2022 History of Presen t illness Narrative This note was created using b-datumter. Subjective Transitional Care Management Progress Note The patients TCM visit was performed within the 7 days of discharge. Patient's Date of discharge: 04/06/2022 Date of initial coordinator contact after discharge: 04/09/2022 Discharge diagnosis: Acute [place]. Cardiac arrest. Medication review completed Yes Jericho [...] Kidney Disease (Hcc) Coronary Artery Disease Involving [place] Coronary Artery of [place] Heart Without Angina Pectoris St Elevation Myocardial [...] &/TRANSPOS MEDIAN NRV CARPAL TUNNE Left 08/30/2009 [facility] PAST SURGICAL HISTORY OF 05/30/2019 C5-[address] Grace Long S PROBE PERC LUMBAR DISCECTOMY 04/2000 [facility] Social History Tobacco Use Smoking status: [...] I49.01 - In the setting of acute [place]. 3. Coronary artery disease involving elem coronary artery of elem heart without angina pectoris - ICD9: 414.01, [...] Jericho Tinoco MD documented in this encounter [facility] documented as of this encounter (statuses as of 08/29/2022) [facility] History of Past illness Narrative* Problem Noted [...] of this encounter (statuses as of 11/12/2022) [facility] History of Past illness Narrative* Problem Noted [...] of this encounter (statuses as of 11/16/2022) [facility] History of Past illness Narrative* Problem Noted [...] of this encounter (statuses as of 12/05/2022) [facility] History of Past illness Narrative* Problem Noted [...] of this encounter (statuses as of 01/15/2023) [facility] History of Past illness Narrative* Problem Noted [...] of this encounter (statuses as of 01/15/2023) [facility] History of Past illness Narrative* Problem Noted [...] of this encounter (statuses as of 01/21/2023) [facility] History of Past illness Narrative* Problem Noted [...] of this encounter (statuses as of 02/09/2023) [facility] History of Past illness Narrative* Problem Noted [...] of this encounter (statuses as of 02/13/2023) [facility] History of Past illness Narrative* Problem Noted [...] of this encounter (statuses as of 02/20/2023) [facility] History of Past illness Narrative* Problem Noted [...] of this encounter (statuses as of 03/06/2023) [facility] History of Past illness Narrative* Problem Noted [...] of this encounter (statuses as of 03/12/2023) [facility] History of Past illness Narrative* Problem Noted [...] of this encounter (statuses as of 03/20/2023) [facility] History of Past illness Narrative* Problem Noted [...] of this encounter (statuses as of 04/08/2023) [facility] History of Past illness Narrative* Problem Noted [...] of this encounter (statuses as of 05/20/2023) [facility] History of Present illness Narrative* Brigette Fregoso LPN - 04/09/2022 3:16 PM EST TRANSITION CARE MANAGEMENT (TCM) INITIAL CONTACT Trades Helper Outreach Provider Action/FYI: Apt has been scheduled Initial contact with patient post discharge, spoke to patient. Patient identified by name and . TRANSITION CARE MANAGEMENT INITIAL OUTREACH DOCUMENTATION: Date of Outreach: 04/09/2022 Outreach Attempt 1: Contact Made Date of Discharge 04/06/2022 Some recent data might be hidden SUMMARY: -Pt discharged from [facility] on 04/06/22. -Admitted for: heart [...] home? Yes Medical records from recent hospitalization: [facility] has records if not received [facility] Discharge instructions Patient Education 03/08/2022 15:44:38 [...] leg Difficulty speaking, swallowing or walking Seizure [id number] [employer]. [address] [place] [address], [place] [address]. All rights reserved. This information is not intended as a substitute for professional medical care. Always follow yourhealthcare professional's instructions. Follow Up Care 03/08/2022 15:34:05 With:JERICHO TINOCO MD Address: [address] [place] [address]- When:2-4 days [facility] 11-03-2022 Emergency department Discharge summary Discharge Instructions Thank you for allowing [facility] to assist you with your healthcare needs. The following is importantdischarge information regarding your hospital visit. Diagnosis from Today's Visit Shingles Rash What to Do Next Instructions from Your Care Team No qualifying data available. Post Acute Orders No qualifying data available. You Need to Schedule the Following Appointments Follow Up with JERICHO TINOCO MD When Within 2-4 days Where: [address] [place], [place] [id number]- Allergies Dilaudid Percocet 5/325 SEROquel codeine traMADol [...] Duration: 7 Days Printed Prescription Changed acetaminophen-hydrocodone ([place] 325- 5 mg oral tablet) 1 tab(s) by mouth Two (2) times a day Changed acetaminophen-hydrocodone ([place] 325- 5 mg oral tablet) 1 tab(s) [...] leg Difficulty speaking, swallowing or walking Seizure [id number] [employer]. [address] [place], [place] [id number]. All rights reserved. This information is not intended as a substitute for professional medical care. Always follow yourhealthcare professional's instructions. Additional Information VACCINATE! IT SAVES LIVES! Members of the community who have not yet received the COVID-19 vaccine and would like to receive it can visit one of [facility] vaccine clinics. There are many vaccine clinic locations within the [facility]. For locations and available times, please visit [email or web address]. It is important to note that some COVID mobile vaccine clinics are held outdoors and may be canceled in rainy orstormy conditions. To learn more about pediatric vaccinations (ages 5-11), we invite you to visit the [facility] webpage. [email or web address] learn more about the COVID-19 vaccine, we invite you to visit the [facility] website for a list of frequently asked questions. [email or web address] [facility] [employer] ([employer] Patient Portal Access Instructions: Stay connected with your healthcare team and access your personal medical information anytime with the [employer] Patient Portal. If you would like a full copy of your medical records please contact the [facility] Medical Records Department Saturday through Saturday between 8a.m. and 4:30p.m. Please follow the directions below to access the portal: 1.Access the email account you provided upon registration to the [facility].2.Look for an invitation email from [facility].3.Open the email and access the invitation link: Accept Invitation to [facility] [employer])4.Fill in the required alamo to create your account. Sign into www.[email or web address] with your username and password that you [...] you will allow to register on the [employer] Patient Portal for access to your information. You can also access the [facility] Patient Portal on the [employer] dsaha. Simply click on Health Records under [employer] and then click on the [employer] logo. HOW TO SAFELY DISPOSE OF PRESCRIPTION [...] Call your local pharmacy or go to [email or web address] to find one close to you.3.Make use of household items: Use cat litter or old coffee grounds to dispose medications if other options arenot available. Mix your drugs with these household products, seal them in an airtight container andthrow it into the garbage. Call [facility]: [phone] to be sure your drugs can be [...] aware that I should contact my doctor. 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 Signature: Date/Time: Relationship to Patient: Witness Name/Signature: Date/Time: [facility]10-27-2022 History of Present illness Narrative * Jericho [...] intervention Jericho Tinoco MD [facility] note* Diagnosis Type 2 diabetes mellitus with stage 3a chronic kidney disease, without long-term current use of insulin (HCC)- Primary Stage 3a chronic kidney disease (HCC) Tremor Abnormal involuntary movements Persistent headaches Headache Tobacco use disorder Class 3 severe obesity with serious comorbidity and body mass index (BMI) of 50.0 to 59.9 in adult, unspecified obesity type (HCC) documented in this encounter [facility]10-21-2022 Miscellaneous Notes* Telephone Encounter - Jericho Tinoco MD - 02/23/2022 1:08 PM EDT [facility] Nurse Note* Peggy Diaz LPN - 01/18/2022 1:01 PM EDT Intake information documented in the prior visit with FLASH Caceres today. [facility] Procedure note* FLASH Caceres - 01/18/2022 12:58 [...] 2022 TIME: 12:58 PM [facility] History of Present illness Narrative* FLASH Caceres - 01/18/2022 12:45 PM EDT PULM FUNCTION SMARTBLOCK: Provider: Jamilah Galvan PA-C Assisting Tech: FLASH Caceres Spirometry: 1 Exhaled Nitric Oxide: 1 [facility] History of Present illness Narrative* Jamilah Galvan PA-C - 01/18/2022 12:45 PM EDT [facility] [place], 01/18/2022: Name: Juan Eagle : 1965 The [...] FEF75 (L/sec) 0.69 0.28 1.54 0.92 133 YBB44-88 (L/sec) 2.32 1.24 3.74 2.57 110 PEF [...] answers. Jamilah Galvan PA-C [facility] Miscellaneous Notes* Telephone Encounter - Gricelda Duckworth LPN - 12/04/2021 5:02 PM EDT Below left referral on identified vm. Faxed referral to [facility] scheduling. Gricelda Duckworth LPN * [...] is calling asking for a referral to [facility] dietitian. She is wanting directions on what to eatand not to eat with the dx of 3rd stage renal failure. [facility] Miscellaneous Notes* Telephone Encounter - Brigette Linares - 07/21/2021 11:21 AM EDT Patient electronically requesting refills as follows: Pending Prescriptions Disp Refills LANSOPRAZOLE 30 MG CAPSULE,DELAYED RELEASE 90 capsule 3 Sig: Take 1 capsule by mouth once daily. AURY: No Please review and advise. Brigette Linares [facility] History of Past illness Narrative* Problem Noted [...] of this encounter (statuses as of 12/04/2021) [facility] History of Past illness Narrative* Problem Noted [...] of this encounter (statuses as of 12/04/2021) [facility] of Past illness Narrative* Problem Noted [...] of this encounter (statuses as of 01/18/2022) [facility] of Past illness Narrative* Problem Noted [...] of this encounter (statuses as of 01/18/2022) [facility] Narrative* Problem Noted [...] of this encounter (statuses as of 02/23/2022) [facility] of Past illness Narrative* Problem Noted [...] of this encounter (statuses as of 03/01/2022) [facility] Narrative* Problem Noted [...] of this encounter (statuses as of 04/12/2022) [facility] Narrative* Problem Noted [...] of this encounter (statuses as of 04/12/2022) [facility] Past illness Narrative* Problem Noted [...] of this encounter (statuses as of 04/13/2022) [facility] Narrative* Problem Noted [...] of this encounter (statuses as of 06/01/2022) [facility] Narrative* Problem Noted [...] of this encounter (statuses as of 06/22/2022) [facility] Narrative* Problem Noted [...] of this encounter (statuses as of 06/28/2022) [facility] Narrative* Problem Noted [...] of this encounter (statuses as of 07/01/2022) [facility] Narrative* Problem Noted [...] of this encounter (statuses as of 07/01/2022) [facility] Narrative* Problem Noted [...] of this encounter (statuses as of 07/19/2022) [address]21-2021 History of Past illness Narrative* Problem [...] of this encounter (statuses as of 07/20/2022) [facility] Narrative* Problem Noted [...] of this encounter (statuses as of 08/23/2022) [facility] of Past illness Narrative* Problem Noted Date Resolved Date BMI 45.0-49.9, adult 01/25/2020 03/20/2021 Thumb tendonitis 01/20/2016 02/20/2017 Osteoarthritis of lumbar spine 12/05/2015 1 Depression 04/11/2015 08/10/2017 Low back pain 04/11/2015 02/20/2017 Gastroesophageal reflux disease without esophagi tis 04/11/2015 12/16/2019 documented as of this encounter (statuses as of 07/24/2021) [facility] History of Past illness Narrative* Problem Noted Date Resolved Date BMI 45.0-49.9, adult 01/25/2020 03/20/2021 Thumb tendonitis 01/20/2016 02/20/2017 Osteoarthritis of lumbar spine 12/05/2015 1 Depression 04/11/2015 08/10/2017 Low back pain 04/11/2015 02/20/2017 Gastroesophageal reflux disease without esophagi tis 04/11/2015 12/16/2019 documented as of this encounter (statuses as of 09/01/2021) [facility] note No data available for this section [facility] Evaluation note* Diagnosis Gastroesophageal reflux disease without esophagitis Esophageal reflux documented in this encounter [facility] note* Diagnosis Type 2 diabetes mellitus without complication (HCC) Type II or unspecified type diabetes mellitus without mention of complication, not stated as uncontrolled documented in this encounter [facility] note* Diagnosis Stage 3b chronic kidney disease (HCC)- Primary documented in this encounter [facility] note* Diagnosis Stage 3b chronic kidney disease (HCC)- Primary Type 2 diabetes mellitus without complication, without long-term current use of insulin ([facility]) documented in this encounter [facility] note* Diagnosis Moderate persistent asthma without complication Unspecified asthma documented in this encounter [facility] note* Diagnosis Moderate persistent asthma without complication Unspecified asthma documented in this encounter [facility] note* Diagnosis Moderate persistent asthma without complication- Primary Unspecified asthma Gastroesophageal reflux disease without esophagitis Esophageal reflux Tobacco use disorder JOSE (obstructive sleep apnea) Obstructive sleep apnea (adult) (pediatric) documented in this encounter [facility] note* Diagnosis Stage 3b chronic kidney disease (HCC)- Primary Panic anxiety syndrome Panic disorder without agoraphobia documented in this encounter [facility] note* Diagnosis ST elevation myocardial infarction involving left circumflex coronary artery ([facility])- Primary Acute myocardial infarction of other specified sites, initial episode of care Ventricular fibrillation (HCC) Ventricular fibrillation Coronary artery disease involving elem coronary artery of elem heart without angina pectoris Ischemic cardiomyopathy Other specified forms of chronic ischemic heart disease Mixed hyperlipidemia Type 2 diabetes mellitus with stage 3a chronic kidney disease, without long-term current use of insulin ([facility]) Tobacco use disorder [facility] Bipolar affective disorder, remission status unspecified ([facility])- Primary Insomnia, unspecified type Panic anxiety syndrome Panic disorder without agoraphobia Coronary artery disease involving elem coronary artery of elem heart without angina pectoris Persistent headaches Headache Type 2 diabetes mellitus with stage 3a chronic kidney disease, without long-term current use of insulin ([facility]) Morbid obesity with BMI of 45.0-49.9, adult ([facility]) Morbid obesity Psoriatic arthritis (HCC) Psoriatic arthropathy [facility]* Diagnosis Persistent headaches Headache Gastroesophageal reflux disease without esophagitis Esophageal reflux [facility]* Diagnosis Encounter for long-term (current) use of medications- Primary Encounter for long-term (current) use of other medications Bipolar affective disorder, remission status unspecified ([facility]) PTSD (post-traumatic stress disorder) Posttraumatic stress disorder Panic disorder with agoraphobia Agoraphobia with panic disorder Dyskinesia, tardive Subacute dyskinesia due to drugs [facility]* Diagnosis SOB (shortness of breath)- Primary Shortness of breath Mild intermittent asthma without complication Unspecified asthma Morbid obesity (HCC) Morbid obesity Cigarette smoker Tobacco use disorder [facility]* Diagnosis SOB (shortness of breath) Shortness of breath [facility]* Diagnosis PTSD (post-traumatic stress disorder)- Primary Posttraumatic stress disorder Panic disorder with agoraphobia Agoraphobia with panic disorder Dyskinesia, tardive Subacute dyskinesia due to drugs Bipolar affective disorder, currently depressed, moderate ([facility]) Bipolar I disorder, most recent episode (or current) depressed, moderate [facility]* Diagnosis Encounter for screening mammogram for breast cancer [facility]* Diagnosis Diabetic mononeuropathy associated with diabetes mellitus due to underlying condition ([facility])- Primary Callus of foot Corns and callosities Ingrowing toenail Ingrowing nail Onychomycosis Dermatophytosis of nail Pain in toe of left foot Pain in limb Pain in toe of right foot Pain in limb Diminished pulses in lower extremity Other symptoms involving cardiovascular system [facility]* Diagnosis Bipolar affective disorder, currently depressed, moderate ([facility])- Primary Bipolar I disorder, most recent episode (or current) depressed, moderate Dyskinesia, tardive Subacute dyskinesia due to drugs Panic disorder with agoraphobia Agoraphobia with panic disorder PTSD (post-traumatic stress disorder) Posttraumatic stress disorder [facility]* Diagnosis Moderate persistent asthma without complication- Primary Unspecified asthma Morbid obesity (HCC) Morbid obesity Gastroesophageal reflux disease without esophagitis Esophageal reflux Cigarette smoker Tobacco use disorder [facility]* Diagnosis Panic disorder with agoraphobia Agoraphobia with panic disorder Dyskinesia, tardive Subacute dyskinesia due to drugs [facility]* Diagnosis Wrist pain, right- Primary Pain in joint, forearm Psoriatic arthritis (HCC) Psoriatic arthropathy Type 2 diabetes mellitus with stage 3a chronic kidney disease, without long-term current use of insulin ([facility]) [facility]* Diagnosis Persistent headaches Headache documented in this encounter [facility] note* Diagnosis Dyskinesia, tardive- Primary Subacute dyskinesia due to drugs Bipolar affective disorder, currently depressed, moderate (HCC) Bipolar I disorder, most recent episode (or current) depressed, moderate Panic disorder with agoraphobia Agoraphobia with panic disorder PTSD (post-traumatic stress disorder) Posttraumatic stress disorder documented in this encounter [facility]* Diagnosis Bipolar affective disorder, currently depressed, moderate (HCC)- Primary Bipolar I disorder, most recent episode (or current) depressed, moderate Dyskinesia, tardive Subacute dyskinesia due to drugs Panic disorder with agoraphobia Agoraphobia with panic disorder PTSD (post-traumatic stress disorder) Posttraumatic stress disorder documented in this encounter [facility] Discharge instructions No data available for this section [facility] Progress note No data available for this section [facility] Reason for referral (narrative)* Outpatient Procedure (Routine) - Pending Review Specialty Diagnoses / Procedures Referred By Patrick t Referred To [facility] Diagnoses Encounter for long-term (current) use of medications Procedures ECG COMPLETE ECG ROUTINE ECG W/LEAST 12 LDS W/I&R Seda Quiroz, REFLECTOR DRILLER AND DEBURRER.EDUCATIONAL AUDIOLOGIST [address] [place] [address] [facility] [address] [address] Referral ID Status Reason Start Date Expiration Date Visits Requested Visits Authorized [id number] Pending Review Auto-Generat ed Referral 06/22/2022 06/22/2023 1 1 [facility] for referral (narrative)* Outpatient Procedure (Routine) - Authorized Specialty Diagnoses / Procedures [facility] Diagnoses SOB (shortness of breath) Procedures SPIROMETRY BASELINE ONLY SPMTRY W/VC EXPIRATORY JEWEL W/WO MXML VOL VNTJ Talia Dias MD [address] [place] [address] [facility] [place] [address] [place] [id number] Referral ID Status Reason Start Date Expiration Date Visits Requested Visits Authorized [id number] Authorized Auto-Generat ed Referral 07/19/2022 08/18/2023 1 1 T [facility] for referral (narrative)* Diagnostic Procedure Only (Routine) - Pending Review Specialty Diagnoses / Procedures Referred By [facility] Referred To Contact [facility] Diagnoses Encounter for screening mammogram for breast cancer Procedures JEANNETTE SCREENING SCREENING MAMMOGRAPHY BI 2-VIEW BREAST INC CAD Jericho Tinoco MD [address] [place] [id number] [facility] [address] [place] [id number] Referral ID Status Reason Start Date Expiration Date Visits Requested Visits Authorized [id number] Pending Review Auto-Generat ed Referral 11/07/2022 12/07/2023 1 1 [facility] for referral (narrative)* Outpatient Procedure (Routine) - Authorized Specialty Diagnoses / Procedures [facility]erred To Contact [facility] Diagnoses Ingrowing toenail Procedures PVR ANK PRESS KAY[facility] NON-INVAS PHYSIOLOGIC STD EXTREMITY ART 2 LEVEL Aron Navarro [address] [address] [facility] [place] [address] [place] [address] Referral ID Status Reason Start Date Expiration Date Visits Requested Visits Authorized [id number] Authorized Auto-Generat ed Referral 12/04/2022 12/04/2023 1 1 [facility] Summary Purpose Family History No Family History Records FoundNo Family History Records FoundNo Family History Records FoundNo Family History Records Found Advance Directives No Advanced Directives Records FoundDocuments on File Type Date Recorded 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 Advance Directive(s) 05/29/2019 12:50 PM Advance Directive(s) 04/16/2016 1:49 PM Advance Directive(s) 01/16/2016 9:20 AM Advance Directive(s) 12/19/2015 7:24 AM Reason for Referral Specialty Diagnoses / Procedures Referred By Contac t Referred To Contact Rheumatology Diagnoses Psoriatic arthritis (HCC) Procedures CONSULT TO RHEUM/IMMUN DISEASE Jericho Tinoco MD [address] [place] [address] Referral ID Status Reason Start Date Expiration Date Visits Requested Visits Authorized [id number] Ref Not Required PCP Requested Referral 03/06/2023 03/05/2024 1 1 Specialty Diagnoses / Procedures Referred By Patrick mchugh Referred To Contact Diagnoses Bipolar affective disorder, remission status unspecified (HCC) Procedures CONSULT TO PSYCHIATRY OFFICE/OUTPATIENT [facility] MDM 60-74 MINUTES Older, LEONELA Marshall.EDUCATIONAL AUDIOLOGIST [address] [place] [address] Referral ID Status Reason Start Date Expiration Date Visits Requested Visits Authorized [id number] Pending Review PCP Requested Referral 06/01/2022 06/01/2023 1 1 Additional Source Comments INFORMATION SOURCE (unrecogn ized section and content) DATE CREATED AUTHOR AUTHOR'S ORGANIZ ATION 06/19/2020 [facility] DATE CREATED AUTHOR AUTHOR'S ORGANIZ ATION 05/17/2022 [facility] ([place]) DATE CREATED AUTHOR AUTHOR'S NERI ATION 05/20/2023 [facility] Source Comments (unrecognize d section and content) In the event this informatio n is protected by the Federal Confidentiality of Alcohol and Drug Abuse Patient Records regulations: The Federal rules restrict any use of the information to criminally investigate or prosecute any alcohol or drug abuse patient.[facility] the event this information is protected by the Federal Confidentiality of Alcohol and Drug Abuse Patient Records regulations: The Federal rules restrict any use of the information to criminally investigate or prosecute any alcohol or drug abuse patient.[facility] HospitalIn the event this information is protected by the Federal Confidentiality of Alcohol and Drug Abuse Patient Records regulations: The Federal rules restrict any use of the information to criminally investigate or prosecute any alcohol or drug abuse patient.[facility] Hospital[facility] the event this information is protected by the Federal Confidentiality of Alcohol and Drug Abuse Patient Records regulations: The Federal rules restrict any use of the information to criminally investigate or prosecute any alcohol or drug abuse patient.[facility] HospitalIn the event this information is protected by the Federal Confidentiality of Alcohol and Drug Abuse Patient Records regulations: The Federal rules restrict any use of the information to criminally investigate or prosecute any alcohol or drug abuse patient.[facility] HospitalIn the event this information is protected by the Federal Confidentiality of Alcohol and Drug Abuse Patient Records regulations: The Federal rules restrict any use of the information to criminally investigate or prosecute any alcohol or drug abuse patient.[facility] HospitalIn the event this information is protected by the Federal Confidentiality of Alcohol and Drug Abuse Patient Records regulations: The Federal rules restrict any use of the information to criminally investigate or prosecute any alcohol or drug abuse patient.[facility] HospitalIn the event this information is protected by the Federal Confidentiality of Alcohol and Drug Abuse Patient Records regulations: The Federal rules restrict any use of the information to criminally investigate or prosecute any alcohol or drug abuse patient.[facility] HospitalIn the event this information is protected by the Federal Confidentiality of Alcohol and Drug Abuse Patient Records regulations: The Federal rules restrict any use of the information to criminally investigate or prosecute any alcohol or drug abuse patient.[facility] HospitalIn the event this information is protected by the Federal Confidentiality of Alcohol and Drug Abuse Patient Records regulations: The Federal rules restrict any use of the information to criminally investigate or prosecute any alcohol or drug abuse patient.[facility] HospitalIn the event this information is protected by the Federal Confidentiality of Alcohol and Drug Abuse Patient Records regulations: The Federal rules restrict any use of the information to criminally investigate or prosecute any alcohol or drug abuse patient.[facility] HospitalIn the event this information is protected by the Federal Confidentiality of Alcohol and Drug Abuse Patient Records regulations: The Federal rules restrict any use of the information to criminally investigate or prosecute any alcohol or drug abuse patient.[facility] HospitalIn the event this information is protected by the Federal Confidentiality of Alcohol and Drug Abuse Patient Records regulations: The Federal rules restrict any use of the information to criminally investigate or prosecute any alcohol or drug abuse patient.[facility] HospitalIn the event this information is protected by the Federal Confidentiality of Alcohol and Drug Abuse Patient Records regulations: The Federal rules restrict any use of the information to criminally investigate or prosecute any alcohol or drug abuse patient.[facility] HospitalIn the event this information is protected by the Federal Confidentiality of Alcohol and Drug Abuse Patient Records regulations: The Federal rules restrict any use of the information to criminally investigate or prosecute any alcohol or drug abuse patient.[facility] HospitalIn the event this information is protected by the Federal Confidentiality of Alcohol and Drug Abuse Patient Records regulations: The Federal rules restrict any use of the information to criminally investigate or prosecute any alcohol or drug abuse patient.[facility] HospitalIn the event this information is protected by the Federal Confidentiality of Alcohol and Drug Abuse Patient Records regulations: The Federal rules restrict any use of the information to criminally investigate or prosecute any alcohol or drug abuse patient.[facility] HospitalIn the event this information is protected by the Federal Confidentiality of Alcohol and Drug Abuse Patient Records regulations: The Federal rules restrict any use of the information to criminally investigate or prosecute any alcohol or drug abuse patient.[facility] HospitalIn the event this information is protected by the Federal Confidentiality of Alcohol and Drug Abuse Patient Records regulations: The Federal rules restrict any use of the information to criminally investigate or prosecute any alcohol or drug abuse patient.[facility] HospitalIn the event this information is protected by the Federal Confidentiality of Alcohol and Drug Abuse Patient Records regulations: The Federal rules restrict any use of the information to criminally investigate or prosecute any alcohol or drug abuse patient.[facility] HospitalIn the event this information is protected by the Federal Confidentiality of Alcohol and Drug Abuse Patient Records regulations: The Federal rules restrict any use of the information to criminally investigate or prosecute any alcohol or drug abuse patient.[facility] HospitalIn the event this information is protected by the Federal Confidentiality of Alcohol and Drug Abuse Patient Records regulations: The Federal rules restrict any use of the information to criminally investigate or prosecute any alcohol or drug abuse patient.[facility] HospitalIn the event this information is protected by the Federal Confidentiality of Alcohol and Drug Abuse Patient Records regulations: The Federal rules restrict any use of the information to criminally investigate or prosecute any alcohol or drug abuse patient.[facility] HospitalIn the event this information is protected by the Federal Confidentiality of Alcohol and Drug Abuse Patient Records regulations: The Federal rules restrict any use of the information to criminally investigate or prosecute any alcohol or drug abuse patient.[facility] HospitalIn the event this information is protected by the Federal Confidentiality of Alcohol and Drug Abuse Patient Records regulations: The Federal rules restrict any use of the information to criminally investigate or prosecute any alcohol or drug abuse patient.[facility] HospitalIn the event this information is protected by the Federal Confidentiality of Alcohol and Drug Abuse Patient Records regulations: The Federal rules restrict any use of the information to criminally investigate or prosecute any alcohol or drug abuse patient.[facility] HospitalIn the event this information is protected by the Federal Confidentiality of Alcohol and Drug Abuse Patient Records regulations: The Federal rules restrict any use of the information to criminally investigate or prosecute any alcohol or drug abuse patient.[facility] HospitalIn the event this information is protected by the Federal Confidentiality of Alcohol and Drug Abuse Patient Records regulations: The Federal rules restrict any use of the information to criminally investigate or prosecute any alcohol or drug abuse patient.[facility] HospitalIn the event this information is protected by the Federal Confidentiality of Alcohol and Drug Abuse Patient Records regulations: The Federal rules restrict any use of the information to criminally investigate or prosecute any alcohol or drug abuse patient.[facility] HospitalIn the event this information is protected by the Federal Confidentiality of Alcohol and Drug Abuse Patient Records regulations: The Federal rules restrict any use of the information to criminally investigate or prosecute any alcohol or drug abuse patient.[facility] HospitalIn the event this information is protected by the Federal Confidentiality of Alcohol and Drug Abuse Patient Records regulations: The Federal rules restrict any use of the information to criminally investigate or prosecute any alcohol or drug abuse patient.[facility] HospitalIn the event this information is protected by the Federal Confidentiality of Alcohol and Drug Abuse Patient Records regulations: The Federal rules restrict any use of the information to criminally investigate or prosecute any alcohol or drug abuse patient.[facility] HospitalIn the event this information is protected by the Federal Confidentiality of Alcohol and Drug Abuse Patient Records regulations: The Federal rules restrict any use of the information to criminally investigate or prosecute any alcohol or drug abuse patient.[facility] HospitalIn the event this information is protected by the Federal Confidentiality of Alcohol and Drug Abuse Patient Records regulations: The Federal rules restrict any use of the information to criminally investigate or prosecute any alcohol or drug abuse patient.[facility] HospitalIn the event this information is protected by the Federal Confidentiality of Alcohol and Drug Abuse Patient Records regulations: The Federal rules restrict any use of the information to criminally investigate or prosecute any alcohol or drug abuse patient.[facility] Reason for Visit (unrecogniz ed section and content) Reason Comments Referral Request Reason Comments Spirometry Specialty Diagnoses / Procedures Referred By Contac t Referred To Contact [facility] Diagnoses Moderate persistent asthma without complication Procedures SPIROMETRY BASELINE ONLY SPMTRY W/VC EXPIRATORY JEWEL W/WO MXML VOL VNTJ Jamilah Galvan PA-C [address] [place] [address] [address] Referral ID Status Reason Start Date Expiration Date V isits Requested Visits Authorized [id number] Closed Auto-Generate d Referral 07/17/2021 08/16/2022 1 1 Specialty Diagnoses / Procedures Referred By Contac t Referred To Contact [facility] Diagnoses Moderate persistent asthma without complication Procedures NITRIC OXIDE, EXHALED NITRIC OXIDE GAS DETERMINATION Jamilah Galvan PA-C [address] [place] [address] [address] Referral ID Status Reason Start Date Expiration Date V isits Requested Visits Authorized [id number] Closed Auto-Generate d Referral 07/17/2021 08/16/2022 1 1 Reason Comments Established Patient 6 month follow up as thma Reason Comments Recheck Reason Comments Patient Update Reason Onset Date Comments Transition Of Care 04/09/2022 Reason Comments Hospital F/U [facility] Reason Comments Follow Up Reason Comments Patient Question Reason Comments Medication Problem Breo Reason Onset Date Comments Refill Request 06/28/2022 Reason Comments New Patient Evaluation Specialty Diagnoses / Procedures Referred By Contac t Referred To Contact Diagnoses Bipolar affective disorder, remission status unspecified (HCC) Procedures CONSULT TO PSYCHIATRY OFFICE/OUTPATIENT NEW HIGH MDM 60-74 MINUTES Older, Joanna, REFLECTOR [employer]LLER [employer] DEBURRER.EDUCATIONAL AUDIOLOGIST [address] [place] [address] Referral ID Status Reason Start Date Expiration Date Visits Requested Visits Authorized [id number] Pending Review PCP Requested Referral 06/01/2022 06/01/2023 1 1 Reason Comments Established Patient 6 month follow up Asthma Specialty Diagnoses / Procedures Referred By Contac t Referred To Contact [facility] Diagnoses SOB (shortness of breath) Procedures SPIROMETRY BASELINE ONLY SPMTRY W/VC EXPIRATORY JEWEL W/WO MXML VOL VNTTalia Francois MD [address] [place] [address] [facility] [place] [address] [place] [address] Referral ID Status Reason Start Date Expiration Date V isits Requested Visits Authorized [id number] Closed Auto-Generate d Referral 07/19/2022 08/18/2023 1 1 Reason Comments Follow Up Specialty Diagnoses / Procedures Referred By Contac t Referred To Contact Psychiatry / ADULT PSYCHIATRY Diagnoses Follow up Procedures VIDEO PSYC/PSYL EST Claude, Joanna, REFLECTOR [employer]BURRER.EDUCATIONAL AUDIOLOGIST [address] [place] [address] Seda Quiroz, REFLECTOR [employer]BURRER.EDUCATIONAL AUDIOLOGIST [address] [place] [address] Referral ID Status Reason Start Date Expiration Date V isits Requested Visits Authorized [id number] Pending Review 08/23/2022 05/05/2023 30 30 Reason Comments Results Reason Comments Letter Reason Comments Established Patient Diabetic Foot Care Reason Comments Refill Request Reason Comments Express Care follow-up Reason Onset Date Comments Refill Request 03/09/2023 Specialty Diagnoses / Procedures Referred By Contac t Referred To Contact Psychiatry / ADULT PSYCHIATRY Diagnoses FOLLOW UP Procedures EST PSYC ADULT Jericho Tinoco MD [address] [place] [address] Seda Quiroz, REFLECTOR [employer]ER [employer] DEBURRER.EDUCATIONAL AUDIOLOGIST [address] [place] [address] Referral ID Status Reason Start Date Expiration Date V isits Requested Visits Authorized [id number] Pending Review 04/02/2023 07/01/2023 1 1 Care Teams (unrecognized sec tion and content) Glass Cutter Hand Relationship Specialty Start Date End Date Jericho Tinoco MD [address] [facility] [place] [address] PCP - General Internal Medicine 05/26/15 Glass Cutter Hand Relationship Specialty Start Date End Date Jericho Tnioco MD [address] [facility] [place] [address] PCP - General Internal Medicine 05/26/15 Glass Cutter Hand Relationship Specialty Start Date End Date Jericho Tinoco MD [facility] [place] [address] PCP - General Internal Medicine 05/26/15 Glass Cutter Hand Relationship Specialty Start Date End Date Jericho Tinoco MD [facility] [place] [address] PCP - General Internal Medicine 05/26/15 Glass Cutter Hand Relationship Specialty Start Date End Date Jericho Tinoco MD [address] [facility] [place] [address] PCP - General Internal Medicine 05/26/15 Glass Cutter Hand Relationship Specialty Start Date End Date Jericho Tinoco MD [address] [facility] [place] [address] PCP - General Internal Medicine 05/26/15 Glass Cutter Hand Relationship Specialty Start Date End Date Jericho Tinoco MD [facility] [place] [address] PCP - General Internal Medicine 05/26/15 Glass Cutter Hand Relationship Specialty Start Date End Date Jericho Tinoco MD [facility] [place] [address] PCP - General Internal Medicine 05/26/15 Glass Cutter Hand Relationship Specialty Start Date End Date Jericho Tinoco MD [address] [facility] [place] [address] PCP - General Internal Medicine 05/26/15 Glass Cutter Hand Relationship Specialty Start Date End Date Jericho Tinoco MD [address] [facility] [place] [address] PCP - General Internal Medicine 05/26/15 Glass Cutter Hand Relationship Specialty Start Date End Date Jericho Tinoco MD [address] [facility] [place] [address] PCP - General Internal Medicine 05/26/15 Glass Cutter Hand Relationship Specialty Start Date End Date Jericho Tinoco MD [address] [facility] [place] [address] PCP - General Internal Medicine 05/26/15 Glass Cutter Hand Relationship Specialty Start Date End Date Jericho Tinoco MD [address] [facility] [place] [address] PCP - General Internal Medicine 05/26/15 Glass Cutter Hand Relationship Specialty Start Date End Date Jericho Tinoco MD [address] [facility] [place] [address] PCP - General Internal Medicine 05/26/15 Glass Cutter Hand Relationship Specialty Start Date End Date Jericho Tinoco MD [address] [facility] [place] [address] PCP - General Internal Medicine 05/26/15 Glass Cutter Hand Relationship Specialty Start Date End Date Jericho Tinoco MD [address] [facility] [place] [address] PCP - General Internal Medicine 05/26/15 Glass Cutter Hand Relationship Specialty Start Date End Date Jericho Tinoco MD [address] [facility] [place] [address] PCP - General Internal Medicine 05/26/15 Glass Cutter Hand Relationship Specialty Start Date End Date Jericho Tinoco MD [address] [facility] [place] [address] PCP - General Internal Medicine 05/26/15 Glass Cutter Hand Relationship Specialty Start Date End Date Jericho Tinoco MD [address] [facility] [place] [address] PCP - General Internal Medicine 05/26/15 Glass Cutter Hand Relationship Specialty Start Date End Date Jericho Tinoco MD [address] [facility] [place] [address] PCP - General Internal Medicine 05/26/15 Glass Cutter Hand Relationship Specialty Start Date End Date Jericho Tinoco MD [address] [facility] [place] [address] PCP - General Internal Medicine 05/26/15 Glass Cutter Hand Relationship Specialty Start Date End Date Jericho Tinoco MD [address] [facility] [place] [address] PCP - General Internal Medicine 05/26/15 Glass Cutter Hand Relationship Specialty Start Date End Date Jericho Tinoco MD [address] [facility] [place] [address] PCP - General Internal Medicine 05/26/15 Glass Cutter Hand Relationship Specialty Start Date End Date Jericho Tinoco MD [address] [facility] [place] [address] PCP - General Internal Medicine 05/26/15 Glass Cutter Hand Relationship Specialty Start Date End Date Jericho Tinoco MD [address] [place] [address] PCP - General Internal Medicine 05/26/15 Glass Cutter Hand Relationship Specialty Start Date End Date Jericho Tinoco MD [address] [place] [address] PCP - General Internal Medicine 05/26/15 Glass Cutter Hand Relationship Specialty Start Date End Date Jericho Tinoco MD [address] [place] [address] PCP - General Internal Medicine 05/26/15 Glass Cutter Hand Relationship Specialty Start Date End Date Jericho Tinoco MD [address] [place] [address] PCP - General Internal Medicine 05/26/15 Glass Cutter Hand Relationship Specialty Start Date End Date Jericho Tinoco MD [address] [place] [address] PCP - General Internal Medicine 05/26/15 Glass Cutter Hand Relationship Specialty Start Date End Date Jericho Tinoco MD [address] [place] [address] PCP - General Internal Medicine 05/26/15 Care Team (unrecognized sect ion and content) Care Team Personnel Name: JERICHO TINOCO MD Member Role: Primary Care Physician Address: Address: [address] [place] [address]- [place] Name: ROBIN RIGGS MD Position: ED Physician Member Role: ED Physician Address: Address: [address] [place] [address]- [place] Name: [email or web address] Padilla Position: ED RN Member Role: ED RN Care Team Related Persons Name: AARON FLORES Care Team Personnel Name: JERICHO TINOCO MD Member Role: Primary Care Physician Address: Address: [facility] [place] [address]- Care Team Related Persons Name: AARON FLORES [...] BE BASED ON THE PRIMARY CLINICAL RECORDS. [employer] provides no warranty or guarantee of the accuracy or completeness of information in this document.
--- OUTSIDE RECORDS SUMMARY | 2023-05-21 18:40 | XMS RPT_ITS | CCD ---
Author Name Unknown Address [address] [place] [address] Organization [facility] Care Team Providers Care Ceiling Insulation Blower Name Role Phone Ezequiel CARRANZA, Jericho Prado Primary Care Provider [phone] EZEQUIEL CARRANZA, DR HELM Primary Care Physician [phone] Ezequiel CARRANZA, Jericho Prado Primary Care Provider [phone] KARISHMA CARRANZA, ELIECER Dent Attending Unavailab christiano TINOCO MD., DR. HELM Primary Care Leonardo TINOCO MD., DR. HELM Primary Care Leonardo RIGGS MD, ROBNI Womack Attending Unavailable JERICHO TINOCO Primary Care [...] [acetaminophen-oxy codone] Drug Allergy 5 GI Upset [facility] (20 sources) cariprazine; Translations: [CARIPRAZINE] Drug Allergy 9 Other: See Comments [facility] (20 sources) Codeine; Translations: [codeine] Drug Allergy 5 Other: See Comments [facility] (20 sources) HYDROmorphone; Translations: [HYDROMORPHONE (BULK)] Drug Allergy 5 GI Upset [facility] (20 sources) QUEtiapine; Translations: [quetiapine] Drug Allergy 9 Other: See Comments [facility] (20 sources) traMADol; Translations: [TRAMADOL HCL] Drug Allergy 5 GI Upset [facility] (2 sources) HYDROmorphone; Translations: [hydromorphone] Drug Allergy [facility] (2 sources) traMADol; Translations: [tramadol] Drug Allergy [facility] Medications Current Medications Medication Drug Class(es) [...] every six hours as needed for pain [place] 325- 5 mg oral tablet Dose = [...] Coronary atherosclerosis; Translations: [Atherosclerotic heart disease of [place] coronary artery without angina pectoris] Onset: 2 [...] (20 sources) Patient encounter status; Translations: [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] Onset: 07-01-2022 Episodic Other aftercare (1 source) 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; Translations: [Encounter for long-term [...] 08:56-0500 Body weight 128.19 kg Seda Rajguru HAY RAKE OPERATOR.BUSINESS INFORMATION CONSULTANT Work Phone: [facility] 05-14-2023 08:56-0500 Diastolic blood pressure 58 mm[Hg] Seda Rajguru HAY RAKE OPERATOR.BUSINESS INFORMATION CONSULTANT Work Phone: [facility] 05-14-2023 08:56-0500 Heart rate 80 /min Seda Rajguru HAY RAKE OPERATOR.BUSINESS INFORMATION CONSULTANT Work Phone: [facility] 05-14-2023 08:56-0500 Systolic blood pressure 122 mm[Hg] Seda Rajguru HAY RAKE OPERATOR.BUSINESS INFORMATION CONSULTANT Work Phone: [facility] 04-02-2023 13:37-0500 Body weight 126.1 kg Seda Rajguru HAY RAKE OPERATOR.BUSINESS INFORMATION CONSULTANT Work Phone: [facility] 04-02-2023 13:37-0500 Diastolic blood pressure 66 mm[Hg] Seda Rajguru HAY RAKE OPERATOR.BUSINESS INFORMATION CONSULTANT Work Phone: [facility] 04-02-2023 13:37-0500 Heart rate 80 /min Seda Rajguru HAY RAKE OPERATOR.BUSINESS INFORMATION CONSULTANT Work Phone: [facility] 04-02-2023 13:37-0500 Systolic blood pressure 138 mm[Hg] Seda Rajguru HAY RAKE OPERATOR.BUSINESS INFORMATION CONSULTANT Work Phone: [facility] 03-06-2023 11:02-0400 Body weight 127.87 kg Jericho Tinoco MD Work Phone: [facility] 03-06-2023 11:02-0400 Diastolic blood pressure 60 mm[Hg] Jericho Tinoco MD Work Phone: [facility] 03-06-2023 11:02-0400 Heart rate 64 /min Jericho Tinoco MD Work Phone: [facility] 03-06-2023 11:02-0400 Respiratory rate 20 /min Jericho Tinoco MD Work Phone: [facility] 03-06-2023 11:02-0400 Systolic blood pressure 118 mm[Hg] Jericho Tinoco MD Work Phone: [facility] 01-21-2023 12:56-0400 Body weight 124.29 kg Jamilah Memo PA-C Work Phone: [facility] 01-21-2023 12:56-0400 Diastolic blood pressure 60 mm[Hg] Jamilah Memo PA-C Work Phone: [facility] 01-21-2023 12:56-0400 Heart rate 62 /min Jamilah Memo PA-C Work Phone: [facility] 01-21-2023 12:56-0400 Respiratory rate 15 /min Jamilah Memo PA-C Work Phone: [facility] 01-21-2023 12:56-0400 SaO2% (BldA) [Mass fraction] 97 % Jamilah Memo PA-C Work Phone: [facility] 01-21-2023 12:56-0400 Systolic blood pressure 122 mm[Hg] Jamilah Memo PA-C Work Phone: [facility] 01-15-2023 08:17-0400 Body weight 126.55 kg Seda Rajguru HAY RAKE OPERATOR.BUSINESS INFORMATION CONSULTANT Work Phone: [facility] 01-15-2023 08:17-0400 Diastolic blood pressure 58 mm[Hg] Seda Rajguru HAY RAKE OPERATOR.BUSINESS INFORMATION CONSULTANT Work Phone: [facility] 01-15-2023 08:17-0400 Heart rate 76 /min Seda Rajguru HAY RAKE OPERATOR.BUSINESS INFORMATION CONSULTANT Work Phone: [facility] 01-15-2023 08:17-0400 Systolic blood pressure 132 mm[Hg] Seda Rajguru HAY RAKE OPERATOR.BUSINESS INFORMATION CONSULTANT Work Phone: [facility] 07-20-2022 15:15-0400 Body height 156.2 cm Pulm Wstr Work Phone: [facility] 07-20-2022 15:15-0400 Body weight 119.75 kg Pulm Wstr Work Phone: [facility] 07-19-2022 14:43-0400 Body weight 119.75 kg Talia Dias MD Work Phone: [facility] 07-19-2022 14:43-0400 Diastolic blood pressure 84 mm[Hg] Talia Dias MD Work Phone: [facility] 07-19-2022 14:43-0400 Heart rate 75 /min Talia Dias MD Work Phone: [facility] 07-19-2022 14:43-0400 Respiratory rate 18 /min Talia Dias MD Work Phone: [facility] 07-19-2022 14:43-0400 SaO2% (BldA) [Mass fraction] 97 % Talia Dias MD Work Phone: [facility] 07-19-2022 14:43-0400 Systolic blood pressure 138 mm[Hg] Talia Dias MD Work Phone: [facility] 06-01-2022 10:40-0500 Body weight 118.84 kg Joanna Older HAY RAKE OPERATOR.BUSINESS INFORMATION CONSULTANT Work Phone: [facility] 06-01-2022 10:40-0500 Diastolic blood pressure 60 mm[Hg] Joanna Older HAY RAKE OPERATOR.BUSINESS INFORMATION CONSULTANT Work Phone: [facility] 06-01-2022 10:40-0500 Heart rate 68 /min Joanna Older HAY RAKE OPERATOR.BUSINESS INFORMATION CONSULTANT Work Phone: [facility] 06-01-2022 10:40-0500 Respiratory rate 20 /min Joanna Older HAY RAKE OPERATOR.BUSINESS INFORMATION CONSULTANT Work Phone: [facility] 06-01-2022 10:40-0500 SaO2% (BldA) [Mass fraction] 98 % Joanna Older HAY RAKE OPERATOR.BUSINESS INFORMATION CONSULTANT Work Phone: [facility] 06-01-2022 10:40-0500 Systolic blood pressure 114 mm[Hg] Joanna Older HAY RAKE OPERATOR.BUSINESS INFORMATION CONSULTANT Work Phone: [facility] 04-11-2022 16:17-0500 Body weight 118.84 kg Jericho Tinoco MD Work Phone: [facility] 04-11-2022 16:17-0500 Diastolic blood pressure 64 mm[Hg] Jericho Tinoco MD Work Phone: [facility] 04-11-2022 16:17-0500 Heart rate 69 /min Jericho Tinoco MD Work Phone: [facility] 04-11-2022 16:17-0500 Respiratory rate 20 /min Jericho Tinoco MD Work Phone: [facility] 04-11-2022 16:17-0500 SaO2% (BldA) [Mass fraction] 98 % Jericho Tinoco MD Work Phone: [facility] 04-11-2022 16:17-0500 Systolic blood pressure 94 mm[Hg] Jericho Tinoco MD Work Phone: [facility] 03-08-2022 15:35-0400 Body temperature 98.42 [degF] ROBIN RIGGS MD [facility] 03-08-2022 15:35-0400 Diastolic blood pressure 82 mm[Hg] ROBIN RIGGS MD [facility] 03-08-2022 15:35-0400 Heart rate 82 /min ROBIN RIGGS MD [facility] 03-08-2022 15:35-0400 Respiratory rate 16 /min ROBIN RIGGS MD [facility] 03-08-2022 15:35-0400 Systolic blood pressure 154 mm[Hg] ROBIN RIGGS MD [facility] 03-01-2022 10:50-0400 Body weight 120.2 kg Jericho Tinoco MD Work Phone: [facility] 03-01-2022 10:50-0400 Diastolic blood pressure 76 mm[Hg] Jericho Tinoco MD Work Phone: [facility] 03-01-2022 10:50-0400 Heart rate 69 /min Jericho Tinoco MD Work Phone: [facility] 03-01-2022 10:50-0400 Respiratory rate 14 /min Jericho Tinoco MD Work Phone: [facility] 03-01-2022 10:50-0400 SaO2% (BldA) [Mass fraction] 98 % Jericho Tinoco MD Work Phone: [facility] 03-01-2022 10:50-0400 Systolic blood pressure 124 mm[Hg] Jericho Tinoco MD Work Phone: [facility] 01-18-2022 13:02-0400 Body height 156.2 cm Jamilah Memo PA-C Work Phone: [facility] 01-18-2022 13:02-0400 Body weight 121.56 kg Jamilah Memo PA-C Work Phone: [facility] 01-18-2022 13:02-0400 Diastolic blood pressure 68 mm[Hg] Jamilah Memo PA-C Work Phone: [facility] 01-18-2022 13:02-0400 Heart rate 62 /min Jamilah Memo PA-C Work Phone: [facility] 01-18-2022 13:02-0400 Respiratory rate 14 /min Jamilah Memo PA-C Work Phone: [facility] 01-18-2022 13:02-0400 SaO2% (BldA) [Mass fraction] 96 % Jamilah Memo PA-C Work Phone: [facility] 01-18-2022 13:02-0400 Systolic blood pressure 122 mm[Hg] Jamilah Memo PA-C Work Phone: [facility] 01-18-2022 12:46-0400 Body height 156.2 cm Respiratory Wstr Work Phone: [facility] 01-18-2022 12:46-0400 Body weight 121.97 kg Respiratory Wstr Work Phone: [facility] 01-18-2022 12:46-0400 Heart rate 62 /min Respiratory Wstr Work Phone: [facility] 01-18-2022 12:46-0400 Respiratory rate 14 /min Respiratory Wstr Work Phone: [facility] 01-18-2022 12:46-0400 SaO2% (BldA) [Mass fraction] 96 % Respiratory Wstr Work Phone: [facility] Encounters Encounter Date Encounter Type Care Provider Facility Start: 05-14-2023 End: 05-15-2023 ambulatory JERICHO TINOCO Facility:[facility] Start: 05-14-2023 End: 05-14-2023 Patient encounter procedure Seda Quiroz APRN.BUSINESS INFORMATION CONSULTANT Work Phone: Psychiatry Procedures Date Procedure Procedure [...] Activity Detail Author Start: 09-03-2027 Colonoscopy COLONOSCOPY [facility] Start: 09-03-2027 COLORECTAL CANCER SCREENING COLORECTAL CANCER SCREENING [facility] Start: 09-03-2027 Screening for malign ant neoplasm of colon [facility] Start: 08-24-2025 Urine microalbumin profile [facility] Start: 04-12-2024 Glaucoma screening Dilated Retinal E xam [facility] Start: 03-15-2024 Mammography Mammogram Screening [facility] Start: 03-15-2024 Screening for malign ant neoplasm of breast Mammogram Screening [facility] Start: 03-06-2024 Annual PCP Team Clinical Engineer regan Disease Visit Annual PCP Team Chronic Disease Visit [facility] Start: 03-06-2024 Creatinine measurement Serum Creatin ine [facility] Start: 03-06-2024 Hepatitis B screening Urine Al bumin:Creatinine Ratio [facility] Start: 03-06-2024 Serum Creatinine Serum Creatinine Cl [facility] Start: 11-03-2023 Influenza vaccination Influenza Vacc ine (#1) [facility] Immunizations Immunization Date Immunization Notes Care Provider Fa nestor 04-07-2019 influenza, injectabl e, quadrivalent, contains preservative Jamilah Memo PA-C Work Phone: [facility] 04-07-2019 influenza virus vacc ine, unspecified formulation Seda Quiroz APRN.CNP Work Phone: [facility] 02-04-2018 influenza, high dose seasonal, preservative-free Jamilah Memo PA-C Work Phone: [facility] Work Phone: 02-20-2017 influenza, injectabl e, quadrivalent, contains preservative Jamilah Memo PA-C Work Phone: [facility] 03-02-2016 influenza, injectabl e, quadrivalent, contains preservative Jamilah Memo PA-C Work Phone: [facility] 03-02-2016 pneumococcal polysaccharide vaccine, 23 valent Jamilah Memo PA-C Work Phone: [facility] 08-25-2015 tetanus toxoid, redu wayne diphtheria toxoid, and acellular pertussis vaccine, adsorbed Jamilah Galvan PA-C Work Phone: [facility] 05-26-2015 influenza, injectabl e, quadrivalent, contains preservative Jamilah Galvan PA-C Work Phone: [facility] Payers Date Payer Category Payer Medicaid [facility] MEDICAID MYC ARE [facility] MEDICAID [id number] 2015-Present [phone] [address] [place] [address] Medicaid [id number] 2015 Medicare [id number] 2015 Medicare [facility] MEDICARE MYC ARE [facility] MEDICARE [id number] 2015-Present [phone] [address] [place] [address] Medicare [id number] 2015 Unknown [id number] 1966 Unknown [id number] 1966 Unknown [id number] Social History Date Type Detail Facility Start: 1981 End: 07-19-2022 Tobacco smoking status NHIS Smokes tobacco daily [facility] Work Phone: Start: 1981 History of tobacco use Cigarette Smo ker [facility] Work Phone: Start: 12-16-2019 End: 09-20-2022 Cigarettes smoked current (pack per day) - Reported 1 [facility] Start: 12-16-2019 End: 07-19-2022 Tobacco use and exposure Smokeless tobacco non-user [facility] Work Phone: Start: 07-17-2021 End: 06-01-2022 Alcohol intake Current drinker of alcohol (finding) [facility] Start: 10-25-2020 History SDOH Alcohol Comment occasional, rarely [facility] Start: 02-22-2020 End: 08-27-2022 History SDOH Financial 5 [facility] Start: 02-22-2020 End: 08-27-2022 History SDOH Food Worry 1 [facility] Start: 02-22-2020 End: 08-27-2022 History SDOH Transport Med 2 [facility] Start: 1965 Sex Assigned At Not on file [facility] Start: 07-07-2021 End: 01-31-2022 Exposure to SARS-CoV-2 (event) Not sure [facility] Start: 12-02-2021 History SDOH Alcohol Comment rare 1 drink [facility] Start: 12-02-2021 End: 08-27-2022 History SDOH Physical Activity DPW 0 [facility] Start: 12-02-2021 End: 01-18-2022 Tobacco Comment from age 16 [facility] Start: 03-05-2019 Tobacco smoking status Heavy t obacco smoker (finding) [facility] Sex Assigned At Sex [facility] Start: 06-22-2022 End: 04-02-2023 Alcohol intake Ex-drinker (finding) [facility] Start: 07-19-2022 Tobacco Comment from age 16. O ne PPD in past. Cut to 1/2 PPD in April [facility] Start: 08-27-2022 History SDOH Social Connections Phone 3 [facility] Start: 08-27-2022 History SDOH Social Connections Living 8 [facility] Start: 08-27-2022 End: 09-20-2022 Social connection and isolation panel [facility] Do you belong to any clubs or organizations such as jewish groups, unions, fraternal or athletic groups, or school groups? No [facility] Are you now , , , , never or living with a partner? Living with partner [facility] How often to you hav e a drink containing alcohol? Monthly or less [facility] How many standard dr inks containing alcohol do you have on a typical day? 1 or 2 [facility] How often do you hav e 6 or more drinks on 1 occasion? Never [facility] How hard is it for y ou to pay for the very basics like food, housing, medical care, and heating Not hard at all [facility] Do you feel stress - tense, restless, nervous, or anxious, or unable to sleep at night because your mind is troubled all the time - these days [OSQ] To some extent [facility] (I/We) worried wheth er (my/our) food would run out before (I/we) got money to buy more. Never true [facility] Medical Equipment Procedure Code Equipment Code Equipment Origin al Text Equipment Identifier Dates Spacer Avs 4d 8m m Spinal Bone Plug - [id number] Start: 05-30-2019 Latimer Drill Bit 12mm X 23mm [id number] Start: 05-30-2019 Self Starting Variable Screw Size 4.0mm X 14mm [id number] Start: 05-30-2019 Latimer Cervical P late 1-Level 22mm [id number] Start: 05-30-2019 Functional Status Date Assessment Result Facility 03-08-2022 Functional Status Standard Safet y ID band on, Call device within reach, Bed in low position, Wheels locked, Upper/Half-Length side-rails up, Bedside Cart Locked, Safety level maintained [facility] Mental Status Date Assessment Result Facility 03-08-2022 Mental Status Orientation Oriented x 4 [facility] Clinical Notes 01-25-2020 to 05-14-2023 Seda Quiroz APRN.CNP - 05/14/2023 9:02 AM Seda Quigley APRN.CNP - 04/02/2023 2:10 PM ESTTelephone Encounter - Michelle Sanchez LPN - 03/19/2023 2:57 PM ESTPatient Instructions Note Date & Type Note Facility 05-14-2023 Note HNO ID: [id number] Author: SEDA QUIROZ APRN.CNP Service: ? Author [...] really hard time sitting in the car. [place] that the car was caving in on [...] myocardial infarction of lateral wall (HCC) 04/04/2022 [facility] Cerebellar mass 1995 mass versus infarct Cervical [...] 12/04/2021 Type 2 diabetes mellitus without complication ([facility]) 03/02/2016 PAST SURGICAL HISTORY Procedure Laterality Date ANTERIOR DISKECTOMY, CERVICAL, EACH ADDL 05/30/2019 ACDF C5-6 - anterior cervical discectomy and arthrodesis ARTHRP KNE CONDYLEANDPLATU MEDIALANDLAT COMPARTMENTS Left 01/14/2018 COLONOSCOPY AND BIOPSY 09/02/2017 Dr. cooney EGPhil 01/23/2021 KNEE ARTHROSCOP MENISCUS REPAIR MED/LAT Left 06/22/2016 partial medial meniscectomy LUMBAR OR CAUDAL EPIDURAL INJECTION 01/2017 multiple since 2014. NEUROPLASTY AND/TRANSPOS MEDIAN NRV CARPAL TUNNE Left 08/30/2009 [facility] PAST SURGICAL HISTORY OF 05/30/2019 C5-[address] Grace Long PT ED HEART AND VASCULAR Cardiac Stent [facility] 11/30/22 S PROBE PERC LUMBAR DISCECTOMY 04/2000 [facility] Current Outpatient Medications Medication Sig Dispense [...] 3 escitalopram o (more content not included)... [facility] 05-14-2023 History of Presen t illness Narrative [...] really hard time sitting in the car. [place] that the car was caving in on [...] myocardial infarction of lateral wall (HCC) 04/04/2022 [facility] Cerebellar mass 1995 mass versus infarct Cervical [...] 12/04/2021 Type 2 diabetes mellitus without complication ([facility]) 03/02/2016 PAST SURGICAL HISTORY Procedure Laterality Date ANTERIOR DISKECTOMY, CERVICAL, EACH ADDL 05/30/2019 ACDF C5-6 - anterior cervical discectomy and arthrodesis ARTHRP KNE CONDYLE&PLATU MEDIAL&LAT COMPARTMENTS Left 01/14/2018 COLONOSCOPY AND BIOPSY 09/02/2017 Dr. ivet HAGER 01/23/2021 KNEE ARTHROSCOP MENISCUS REPAIR MED/LAT Left 06/22/2016 partial medial meniscectomy LUMBAR OR CAUDAL EPIDURAL INJECTION 01/2017 multiple since 2014. NEUROPLASTY &/TRANSPOS MEDIAN NRV CARPAL TUNNE Left 08/30/2009 [facility] PAST SURGICAL HISTORY OF 05/30/2019 C5-[address] Grace Long PT ED HEART AND VASCULAR Cardiac Stent [facility] 04/04/22 S PROBE PERC LUMBAR DISCECTOMY 04/2000 [facility] Current Outpatient Medications Medication Sig Dispense [...] REVIEWED: Psychiatric scales, Electronic medical record, and Physics Teacher notes DIAGNOSIS: Bipolar disorder, currently depressed, moderate [...] which included preparing to see the patient, [id number] patient care, completing clinical documentation, obtaining and/or [...] TIME: 9:03 AM documented in this encounter [facility] 04-02-2023 Note HNO ID: [id number] Author: Seda Quiroz APRN.CNP Service: ? Author [...] struggling with shortness of breath. Saw her accounting intern and was notified that her lung function was normal. Has been following up with her relations coordinator. Had to take Nitro due to chest [...] Date Acute myocardial infarction of lateral wall ([facility]) 04/04/2022 [facility] Cerebellar mass 1995 mass versus infarct Cervical cord compression with myelopathy ([facility]) 05/28/2019 Depression 04/11/2015 Disc degeneration, lumbar 2000 [...] 12/04/2021 Type 2 diabetes mellitus without complication ([facility]) 03/02/2016 PAST SURGICAL HISTORY Procedure Laterality Date ANTERIOR DISKECTOMY, CERVICAL, EACH ADDL 05/30/2019 ACDF C5-6 - anterior cervical discectomy and arthrodesis ARTHRP KNE CONDYLEANDPLATU MEDIALANDLAT COMPARTMENTS Left 01/14/2018 COLONOSCOPY AND BIOPSY 09/02/2017 Dr. cooney EGD 01/23/2021 KNEE ARTHROSCOP MENISCUS REPAIR MED/LAT Left 06/22/2016 partial medial meniscectomy LUMBAR OR CAUDAL EPIDURAL INJECTION 01/2017 multiple since 2014. NEUROPLASTY AND/TRANSPOS MEDIAN NRV CARPAL TUNNE Left 08/30/2009 [facility] PAST SURGICAL HISTORY OF 05/30/2019 C5-[address] Grace Long PT ED HEART AND VASCULAR Cardiac Stent [facility] 04/04/22 S PROBE PERC LUMBAR DISCECTOMY 04/2000 [facility] Current Outpatient Medications Medication Sig Dispense [...] 1 tablet by (more content not included)... [facility] 04-02-2023 History of Presen t illness Narrative [...] struggling with shortness of breath. Saw her accounting intern and was notified that her lung function was normal. Has been following up with her relations coordinator. Had to take Nitro due to chest [...] myocardial infarction of lateral wall (HCC) 04/04/2022 [facility] Cerebellar mass 1995 mass versus infarct Cervical [...] &/TRANSPOS MEDIAN NRV CARPAL TUNNE Left 08/30/2009 [facility] PAST SURGICAL HISTORY OF 05/30/2019 C5-[address] Grace Long PT ED HEART AND VASCULAR Cardiac Stent [facility] 04/04/22 S PROBE PERC LUMBAR DISCECTOMY 04/2000 [facility] Current Outpatient Medications Medication Sig Dispense [...] which included preparing to see the patient, [id number] patient care, completing clinical documentation, obtaining and/or [...] TIME: 2:10 PM documented in this encounter [facility] 03-19-2023 Miscellaneous Notes Patient notified and [...] for last apt. documented in this encounter [facility] 03-15-2023 Note HNO ID: [id number] Author: Marta Mosqueda RT(R) Service: ? Author [...] RT Arias(R) March 15, 2023 1:24 PM [facility] 03-11-2023 Miscellaneous Notes Patient has been identified [...] Gricelda Duckworth LPN. documented in this encounter [facility] 03-07-2023 Note HNO ID: [id number] Author: Aron Navarro Service: ? Author Type: [...] RTC in 3-4 months. Aron Navarro DPM [facility] 03-07-2023 Note HNO ID: [id number] Author: Pepper Estrada LPN Service: ? Author Type: LICENSED NURSE Type: Progress Notes Filed: 03/08/2023 10:31 PM Note Text: AMB ROOMING INTAKE FLOWSHEET DATA Patient presents with: Left Foot - Established Patient, Diabetic Foot Care Right Foot - Established Patient, Diabetic Foot Care Pepper Estrada LPN [facility] 03-06-2023 Note HNO ID: [id number] Author: Jericho Tinoco MD Service: ? Author Type: Physician Type: Progress Notes Filed: 03/06/2023 12:34 PM Note Text: This note was created using [employer] (Inside[employer]). Subjective Juan Egale is a 58 year old female. She's been dealing with right wrist pain for about 2 months, with no injury. She reported taking up to 12 ibuprofen per day. Pain was worse with movement. Bracing helped some. X rays showed no acute findings. Her joints have been hurting more in general. 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[place], so had been off Humira for more [...] (Bmi) of 50.0 to 59.9 in Adult ([facility]) Persistent Headaches S/P Cervical Spinal Fusion Tobacco Use Disorder Moderate Persistent Asthma Without Complication Psoriatic Arthritis ([facility]) Irritable Bowel Syndrome With Diarrhea Stage 3a Chronic Kidney Disease ([facility]) Coronary Artery Disease Involving [place] Coronary Artery of [place] Heart Without Angina Pectoris St Elevation Myocardial Infarction Involving Left Circumflex Coronary Artery ([facility]) Ischemic Cardiomyopathy Encounter for Long-Term (Current) Use of Medications Bipolar Disorder ([facility]) Ptsd (Post-Traumatic Stress Disorder) Dyskinesia, Tardive Current [...] She is aler (more content not included)... [facility] 03-06-2023 History of Presen t illness Narrative This note was created using [employer]. Subjective Juan Eagle is a 58 year old female. She's been dealing with right wrist pain for about 2 months, with no injury. She reported taking up to 12 ibuprofen per day. Pain was worse with movement. Bracing helped some. X rays showed no acute findings. Her joints have been hurting more in general. 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[place], so had been off Humira for more [...] Mellitus With Stage 3a Chronic Kidney Disease ([facility]) Mixed Hyperlipidemia Jose On Cpap Radiculopathy, Lumbar Region Postlaminectomy Syndrome Ddd (Degenerative Disc Disease), Lumbar Edema Class 3 Severe Obesity With Body Mass Index (Bmi) of 50.0 to 59.9 in Adult ([facility]) Persistent Headaches S/P Cervical Spinal Fusion Tobacco Use Disorder Moderate Persistent Asthma Without Complication Psoriatic Arthritis ([facility]) Irritable Bowel Syndrome With Diarrhea Stage 3a Chronic Kidney Disease ([facility]) Coronary Artery Disease Involving [place] Coronary Artery of [place] Heart Without Angina Pectoris St Elevation Myocardial Infarction Involving Left Circumflex Coronary Artery ([facility]) Ischemic Cardiomyopathy Encounter for Long-Term (Current) Use of Medications Bipolar Disorder ([facility]) Ptsd (Post-Traumatic Stress Disorder) Dyskinesia, Tardive Current [...] Jericho Tinoco MD documented in this encounter [facility] 02-20-2023 Miscellaneous Notes Message to call office. Message to call office. Message to call office. Last: 01/15/2023 Noted-follow up 4 weeks 02/12/2023-cx'd by patient Covid exposure Next: NA documented in this encounter [facility] 01-21-2023 Note HNO ID: [id number] Author: Jamilah Galvan PA-C Service: ? Author Type: Physician Blow Molder Type: Progress Notes Filed: 01/21/2023 1:28 PM Note Text: Patient: Juan Eagle PCP: Jericho Tinoco MD CC: follow up HPI: Juan Eagle 57 year old morbidly obese female current 10-jdad-mylw smoker with PMH significant for GERD, HLD, JOSE on CPAP, DM2, GA in March 2022 coded 3 times s/p [...] all sleep. DME: Medical Service. Follow with [facility]. PAST MEDICAL HISTORY Diagnosis Date Acute myocardial infarction of lateral wall ([facility]) 04/04/2022 [facility] Cerebellar mass 1995 mass versus infarct Cervical cord compression with myelopathy ([facility]) 05/28/2019 Depression 04/11/2015 Disc degeneration, lumbar 2000 [...] region 12/05/2015 Stage 3b chronic kidney disease ([facility]) 12/04/2021 Type 2 diabetes mellitus without complication ([facility]) 03/02/2016 Allergies: Codeine Other: See Comments Comment: [...] PAST SURGICAL HISTOR (more content not included)... [facility] 01-21-2023 History of Presen t illness Narrative Images from the original note were not included. Patient: Juan Eagle PCP: Jericho Tinoco MD CC: follow up HPI: Juan Eagle 57 year old morbidly obese female current 02-lqtv-dlnf smoker with PMH significant for GERD, HLD, JOSE on CPAP, DM2, GA in March 2022 coded 3 times s/p [...] all sleep. DME: Medical Service. Follow with [facility]. PAST MEDICAL HISTORY Diagnosis Date Acute myocardial infarction of lateral wall (HCC) 04/04/2022 [facility] Cerebellar mass 1995 mass versus infarct Cervical [...] &/TRANSPOS MEDIAN NRV CARPAL TUNNE Left 08/30/2009 [facility] PAST SURGICAL HISTORY OF 05/30/2019 C5-[address] Grace Long PT ED HEART AND VASCULAR Cardiac Stent [facility] 04/04/22 S PROBE PERC LUMBAR DISCECTOMY 04/2000 [facility] I reviewed the past medical history, [...] obstruction Imaging / Diagnostic Studies: CXR 03/2022 [facility] reviewed showing bilateral hazy opacities without [...] Jamilah Galvan PA-C documented in this encounter [facility] 01-15-2023 Miscellaneous Notes Medication sent to [facility]. [facility] does have this medication in stock, Patient aware you will send there. [facility] calls to report that Ingrezza is a specialty medication and [facility] cannot get that med. Will need to try somewhere else. Elham Graves LPN documented in this encounter [facility] 01-15-2023 Note HNO ID: [id number] Author: Cassie Kendrick RT(R) Service: Radiology Author [...] Kendrick RT(R) January 15, 2023 9:25 AM [facility] 01-15-2023 Note HNO ID: [id number] Author: Fidel Bazan APRN.BUSINESS INFORMATION CONSULTANT Service: ? Author Type: Nurse Practitioner Type: [...] Date Acute myocardial infarction of lateral wall ([facility]) 04/04/2022 [facility] Cerebellar mass 1995 mass versus infarct Cervical cord compression with myelopathy ([facility]) 05/28/2019 Depression 04/11/2015 Disc degeneration, lumbar 2000 [...] 12/04/2021 Type 2 diabetes mellitus without complication ([facility]) 03/02/2016 PAST SURGICAL HISTORY Procedure Laterality Date ANTERIOR DISKECTOMY, CERVICAL, EACH ADDL 05/30/2019 ACDF C5-6 - anterior cervical discectomy and arthrodesis ARTHRP KNE CONDYLEANDPLATU MEDIALANDLAT COMPARTMENTS Left 01/14/2018 COLONOSCOPY AND BIOPSY 09/02/2017 Dr. ivet HAGER 01/23/2021 KNEE ARTHROSCOP MENISCUS REPAIR MED/LAT Left 06/22/2016 partial medial meniscectomy LUMBAR OR CAUDAL EPIDURAL INJECTION 01/2017 multiple since 2014. NEUROPLASTY AND/TRANSPOS MEDIAN NRV CARPAL TUNNE Left 08/30/2009 [facility] PAST SURGICAL HISTORY OF 05/30/2019 C5-[address] Grace Long PT ED HEART AND VASCULAR Cardiac Stent [facility] 04/04/22 S PROBE PERC LUMBAR DISCECTOMY 04/2000 [facility] ALLERGIES Codeine, Seroquel [Quetiapine], Vraylar [Cariprazine], [...] Hypertension Sister B (more content not included)... [facility] 01-15-2023 Note HNO ID: [id number] Author: Seda Quiroz APRN.BUSINESS INFORMATION CONSULTANT Service: ? Author Type: Nurse Practitioner Type: [...] Ideations: No homicidal (more content not included)... [facility] 01-15-2023 Instructions Seda Quiroz, LEONELA.DAYANARA - 01/15/2023 9:08 AM EDT Aziza Pearson, It was good to talk with you today. Below is a summary of the plan that we discussed during your appointment for reference. Of course, if you have any questions or concerns do not hesitate to reach out to me via a message or call. Seda Reynoso APRN.BUSINESS INFORMATION CONSULTANT PLAN AND FOLLOW UP: YOU SHOULD SEEK [...] - Call the National Suicide Hotline at 4-600-MLMIVTO ( ) or 2-475-410-TALK (9645) - Text 4HOPE to 136017 Medication Update: Lamictal 200 mg - take 1/2 tablet in the morning and 1 tablet in the evening. Ingrezza 40 mg - take 1 capsule every morning. Continue the rest of your psychiatric medications at the same dose. Next appointment: February 12 at 9:30 am in person -- You may call the department appointment line at [phone] to schedule your appointment. -- Please call my nurse Michelle at [phone] or send me a message in DoctorC with any questions or concerns between appointments. documented in this encounter [facility] 01-15-2023 History of Presen t illness [...] referral for the patient to contact in [place]. Follow up in 4 weeks. Medication Update: [...] which included preparing to see the patient, vgsz-ev-zupt patient care, completing clinical documentation, and counseling and educating the patient/family/caregiver, ordering medications/labs. Seda Quiroz APRN.BUSINESS INFORMATION CONSULTANT January 15, 2023 8:23 AM This note was partially generated using [employer] voice recognition system. Note was reviewed for accuracy. There may be minor misspellings or grammar miscues with [employer] voice recognition. documented in this encounter [facility] 12-04-2022 Note HNO ID: [id number] Author: Aron Navarro Service: ? Author Type: [...] Date Acute myocardial infarction of lateral wall ([facility]) 04/04/2022 [facility] Cerebellar mass 1995 mass versus infarct Cervical cord compression with myelopathy ([facility]) 05/28/2019 Depression 04/11/2015 Disc degeneration, lumbar 2000 [...] 12/04/2021 Type 2 diabetes mellitus without complication ([facility]) 03/02/2016 Current Outpatient Medications Medication Sig dulaglutide [...] AND/TRANSPOS MEDIAN NRV CARPAL TUNNE Left 08/30/2009 [facility] PAST SURGICAL HISTORY OF 05/30/2019 C5-[address] Grace Long PT ED HEART AND VASCULAR Cardiac Stent [facility] 04/04/22 S PROBE PERC LUMBAR DISCECTOMY 04/2000 [facility] FAM (more content not included)... [facility] 12-04-2022 Note HNO ID: [id number] Author: Pepper Estrada LPN Service: ? Author Type: LICENSED NURSE Type: Progress Notes Filed: 12/05/2022 6:45 AM Note Text: AMB ROOMING INTAKE FLOWSHEET DATA Patient presents with: Left Foot - Established Patient, Diabetic Foot Care Right Foot - Established Patient, Diabetic Foot Care Pepper Estrada LPN [facility] 12-04-2022 Instructions Aron Navarro - 12/04/2022 2:15 [...] (or decreased sensation in your feet) a recycling program manager should always cut your toenails. Be Careful [...] Go to your health care provider or recycling program manager to treat these conditions. documented in this encounter [facility] 12-04-2022 History of Presen t illness [...] myocardial infarction of lateral wall (HCC) 04/04/2022 [facility] Cerebellar mass 1995 mass versus infarct Cervical [...] &/TRANSPOS MEDIAN NRV CARPAL TUNNE Left 08/30/2009 [facility] PAST SURGICAL HISTORY OF 05/30/2019 C5-[address] Grace Long PT ED HEART AND VASCULAR Cardiac Stent [facility] 04/04/22 S PROBE PERC LUMBAR DISCECTOMY 04/2000 [facility] FAMILY HISTORY Problem Relation Age of [...] Objective: Patient presents to clinic ambulating in [facility] Constitutional: Pt is a well [...] with diabetes mellitus due to underlying condition ([facility]) (primary encounter diagnosis) (L84) Callus of foot [...] Pepper Estrada LPN documented in this encounter [facility] 11-16-2022 Miscellaneous Notes Letter faxed to [...] a letter and it needs faxed to [phone]. Sofi Carrion RN documented in this encounter [facility] 11-07-2022 Note Patient Outreach (IN [facility]) JUAN EAGLE ([id number]) 1965 F CHT Date Time Provider Department [...] Date Reviewed: 08/28/2022 Reviewed by: Joanna Arce APRN.BUSINESS INFORMATION CONSULTANT - Fully Assessed Visit Diagnosis:Encounter for screening mammogram for breast cancer [Z12.31] Order(s):[facility] SCREENING [[id number]] Order #: [id number] FUTURE Prescriptions as of 11/12/2022 - dulaglutide [...] (HCC) [N18.31] 12/04/2021 Coronary artery disease involving [place]*04/11/2022 ST elevation myocardial infarction involving le*04/11/2022 Ventricular fibrillation (HCC) [I49.01] 04/11/2022 08/28/2022 Ischemic cardiomyopathy [I25.5] 04/11/2022 Encounter for long-term (current) use of medica*07/01/2022 Bipolar disorder (HCC) [F31.9] 07/01/2022 PTSD (post-traumatic stress disorder) [F43.10] 07/01/2022 Dys (more content not included)... [facility] 09-20-2022 Note HNO ID: [id number] Author: Seda Quiroz APRN.BUSINESS INFORMATION CONSULTANT Service: ? Author Type: Nurse Practitioner Type: [...] visit. Either the patient or their legal account service representative has been informed of the risks [...] which included preparing to see the patient, fkgf-yx-redp patient care, completing clinical documentation, and counseling and educating the patient/family/caregiver, ordering medications/labs. Seda Quiroz APRN.CNP September 20, 2022 10:20 AM This note was partially generated using Zooppa voice recognition system. Note was reviewed for accuracy. There may be minor misspellings or grammar miscu (more content not included)... [facility] 08-29-2022 Miscellaneous Notes Below results left on identified vm. Gricelda Duckworth LPN ----- Message from Joanna Arce APRN.CNP sent at 08/29/2022 8:41 AM EDT ----- Please let the patient know HgbA1c was 5.7, diabetes well controlled. Kidney function stable. The rest of her labs were within acceptable limits documented in this encounter [facility] 08-28-2022 Note HNO ID: [id number] Author: Joanna Arce APRN.CNP Service: ? Author [...] Date Acute myocardial infarction of lateral wall ([facility]) 04/04/2022 [facility] Cerebellar mass 1995 mass versus infarct Cervical cord compression with myelopathy ([facility]) 05/28/2019 Depression 04/11/2015 Disc degeneration, lumbar 2000 [...] 12/04/2021 Type 2 diabetes mellitus without complication ([facility]) 03/02/2016 PAST SURGICAL HISTORY Procedure Laterality Date ANTERIOR DISKECTOMY, CERVICAL, EACH ADDL 05/30/2019 ACDF C5-6 - anterior cervical discectomy and arthrodesis ARTHRP KNE CONDYLEANDPLATU MEDIALANDLAT COMPARTMENTS Left 01/14/2018 COLONOSCOPY AND BIOPSY 09/02/2017 Dr. cooney EGD 01/23/2021 KNEE ARTHROSCOP MENISCUS REPAIR MED/LAT Left 06/22/2016 partial medial meniscectomy LUMBAR OR CAUDAL EPIDURAL INJECTION 01/2017 multiple since 2014. NEUROPLASTY AND/TRANSPOS MEDIAN NRV CARPAL TUNNE Left 08/30/2009 [facility] PAST SURGICAL HISTORY OF 05/30/2019 C5-[address] Grace Long PT ED HEART AND VASCULAR Cardiac Stent [facility] 04/04/22 S PROBE PERC LUMBAR DISCECTOMY 04/2000 [facility] ALLERGIES Codeine, Seroquel [Quetiapine], Vraylar [Cariprazine], [...] Inhalation as instruct (more content not included)... [facility] 08-23-2022 Note HNO ID: [id number] Author: Seda Quiroz APRN.BUSINESS INFORMATION CONSULTANT Service: ? Author Type: Nurse Practitioner Type: [...] visit. Either the patient or their legal account service representative has been informed of the risks [...] and Lamictal at the same dose. 3. Mushroom Laborer Dr. Savage consulted about restarting benzodiazepines. He [...] intent or plan (more content not included)... [facility] 08-23-2022 Instructions Seda Quiroz APRN.CNP - 08/23/2022 [...] - Call the National Suicide Hotline at 8-883-RMZOSKZ ( ) or 2-480-970-TALK (0879) - Text 4HOPE to 891137 Medication Update: Lamictal 200 mg - take 1 tablet once daily. Continue the other psychiatric medications at the same dose. Next appointment: September 20 at 10:30 am Virtual -- Please call my nurse Michelle at [phone] or send me a message in DoctorC with any questions or concerns between appointments. documented in this encounter [facility] 08-23-2022 History of Presen t illness [...] visit. Either the patient or their legal account service representative has been informed of the risks [...] and Lamictal at the same dose. 3. Mushroom Laborer Dr. Savage consulted about restarting benzodiazepines. He [...] which included preparing to see the patient, umyj-wt-kaco patient care, completing clinical documentation, and counseling and educating the patient/family/caregiver, ordering medications/labs. Seda Quiroz APRN.CNP August 23, 2022 8:03 AM This note was partially generated using Zooppa voice recognition system. Note was reviewed for accuracy. There may be minor misspellings or grammar miscues with Dragon voice recognition. documented in this encounter [facility] 07-20-2022 Note HNO ID: [id number] Author: FLASH aCceres Service: ? Author Type: Respiratory Therapist Type: Progress Notes Filed: 07/20/2022 3:28 PM Note Text: PULM FUNCTION SMARTBLOCK: Provider: Talia Dias MD Assisting Tech: FLASH Caceres Spirometry: 1 [facility] 07-20-2022 History of Presen t illness Narrative PULM FUNCTION SMARTBLOCK: Provider: Talia Dias MD Assisting Tech: FLASH Caceres Spirometry: 1 documented in this encounter [facility] 07-19-2022 Note HNO ID: [id number] Author: Talia Dias MD Service: ? Author Type: Physician Type: Progress Notes Filed: 07/19/2022 4:06 PM Note Text: . [facility] [place] Note Patient name: Juan Eagle PCP: Jericho Tinoco MD CC: Shortness of breath HPI: Juan Eagle 57 year old morbidly obese female current 59-ghkq-ttqo smoker with PMH significant for GERD, HLD, JOSE on CPAP, DM2, psoriatic arthritis and asthma, former patient of Dr. Christensen, new to me. Current therapy consists of Breo Ellipta and as needed albuterol. No issues with her Breo Ellipta. Has had relatively good control of her asthma until recently. Status post GA at the end of March, coded 3 [...] eosinophilia Imaging / Diagnostic Studies: CXR 03/2022 [facility] reviewed showing bilateral hazy opacities without pleural effusions consistent with pulmonary edema Echocardiogram with ejection fraction 60%, grade 3 diastolic dysfunction and mild pulmonary hypertension PAST MEDICAL HISTORY Diagnosis Date Acute myocardial infarction of lateral wall ([facility]) 04/04/2022 [facility] Cerebellar mass 1995 mass versus infarct Cervical cord compression with myelopathy ([facility]) 05/28/2019 Depression 04/11/2015 Disc degeneration, lumbar 2000 [...] region 12/05/2015 Stage 3b chronic kidney disease ([facility]) 12/04/2021 Type 2 diabetes mellitus without complication ([facility]) 03/02/2016 ALLERGIES Allergen Reactions Codeine Other: See [...] once daily. albuterol (more content not included)... [facility] 07-19-2022 History of Presen t illness Narrative Images from the original note were not included. . [facility] [place] Note Patient name: Juan Eagle PCP: Jericho Tinoco MD CC: Shortness of breath HPI: Juan Eagle 57 year old morbidly obese female current 34-fkpe-adus smoker with PMH significant for GERD, HLD, JOSE on CPAP, DM2, psoriatic arthritis and asthma, former patient of Dr. Christensen, new to me. Current therapy consists of Breo Ellipta and as needed albuterol. No issues with her Breo Ellipta. Has had relatively good control of her asthma until recently. Status post GA at the end of March, coded 3 [...] eosinophilia Imaging / Diagnostic Studies: CXR 03/2022 [facility] reviewed showing bilateral hazy opacities without pleural effusions consistent with pulmonary edema Echocardiogram with ejection fraction 60%, grade 3 diastolic dysfunction and mild pulmonary hypertension PAST MEDICAL HISTORY Diagnosis Date Acute myocardial infarction of lateral wall (HCC) 04/04/2022 [facility] Cerebellar mass 1995 mass versus infarct Cervical [...] &/TRANSPOS MEDIAN NRV CARPAL TUNNE Left 08/30/2009 [facility] PAST SURGICAL HISTORY OF 05/30/2019 C5-[address] Grace Long PT ED HEART AND VASCULAR Cardiac Stent [facility] 04/04/22 S PROBE PERC LUMBAR DISCECTOMY 04/2000 [facility] PMH, Social history, family history and [...] poor control of asthma 4. Cigarette smoker -22-chif-ikhj smoker without sequelae of COPD -Smoking cessation recommended -PCP already referred patient to lung cancer screening clinic Talia Dias MD [facility] [place] documented in this encounter [facility] 06-28-2022 Miscellaneous Notes Amitriptyline has refill [...] Jamilah Gotti Pss documented in this encounter [facility] 06-28-2022 Miscellaneous Notes Pt called in stating she could not refill her Breo inhaler d/t pharmacy did not have refill orders. Call to [facility] to verify our order states 11 refills. Agnes, at [facility] states they are in the process of refilling Rx for pt and not sure where the miscommunication happened and states there are plenty of refills for pt. Returned call to pt to notify M with detailed message. documented in this encounter [facility] 06-22-2022 Miscellaneous Notes Nurse from [employer] [facility] did not contact patient. Patient is returning a call she received from nurse Loaiza. Please contact the patient again. documented in this encounter [facility] 06-22-2022 Note HNO ID: [id number] Author: Seda Quiroz APRN.BUSINESS INFORMATION CONSULTANT Service: ? Author Type: Nurse Practitioner Type: [...] she was in the car driving to [place]. She continues to take Lexapro and Lamictal. [...] Vrylar (TD). She was on the [employer] [place] that it helped with TD for the [...] AND/TRANSPOS MEDIAN NRV CARPAL TUNNE Left 08/30/2009 [facility] PAST SURGICAL HISTORY OF 05/30/2019 C5-[address] Grace Long S PROBE PERC LUMBAR DISCECTOMY 04/2000 [facility] Current Outpatie (more content not included)... [facility] 06-22-2022 Instructions Seda Quiroz APRN.DAYANARA - 06/22/2022 9:34 AM EST Aziza Pearson, It was good to meet and talk with you today. Below is a summary of the plan that we discussed during your appointment for reference. Of course, if you have any questions or concerns do not hesitate to reach out to me via a message or call. Best, Seda Quiroz APRN.BUSINESS INFORMATION CONSULTANT PLAN AND FOLLOW UP: YOU SHOULD SEEK [...] - Call the National Suicide Hotline at 2-113-AOBZLFA ( ) or 6-861-095-TALK (1839) - Text 6NQFF to 742763 Medication Update: - Restart Ambien 10 mg - take 1 tablet at bedtime to help with sleep. - Continue Lexapro and Lamictal at the same dose. Other: I left a message with your Mushroom Laborer's nurse Disha. She will fax over the latest EKG results from May so you don't have to do the EKG. She will call me back after speaking with Dr. Savage about the medications. Next appointment: --Schedule in 3 to 4 weeks or sooner if needed -- You may call the department appointment line at [phone] to schedule your appointment. -- Please call my nurse Michelle at [phone] or send me a message in DoctorC with any questions or concerns between appointments. documented in this encounter [facility] 06-22-2022 History of Presen t illness [...] she was in the car driving to [place]. She continues to take Lexapro and Lamictal. [...] Vrylar (TD). She was on the [employer] [place] that it helped with TD for the [...] &/TRANSPOS MEDIAN NRV CARPAL TUNNE Left 08/30/2009 [facility] PAST SURGICAL HISTORY OF 05/30/2019 C5-[address] Grace Long S PROBE PERC LUMBAR DISCECTOMY 04/2000 [facility] Current Outpatient Medications Medication Sig Dispense [...] Previously followed by Jason Mendoza at the [facility] Therapist: Previously saw a therapist at the counseling center but they reported that she had graduated from it. Last engaged in therapy 4 years ago. Current Sales Analytics Manager: No Last Hospitalization: None ECT: No Previous [...] history of use or dependence SPIRITUALITY: Cyndi [facility]: Juan Eagle is the 2nd of 5 siblings. The patient was [place] [place], [place]. She completed High school, Technical. She [...] and Lamictal at the same dose. 3. Mushroom Laborer Dr. Savage consulted about restarting benzodiazepines. He [...] which included preparing to see the patient, [id number] patient care, completing clinical documentation, obtaining and/or [...] AM PAGER : documented in this encounter [facility] 06-01-2022 Note HNO ID: [id number] Author: Joanna Arce APRN.CNP Service: ? Author [...] AND/TRANSPOS MEDIAN NRV CARPAL TUNNE Left 08/30/2009 [facility] PAST SURGICAL HISTORY OF 05/30/2019 C5-[address] Grace Long S PROBE PERC LUMBAR DISCECTOMY 04/2000 [facility] ALLERGIES Codeine, Seroquel [Quetiapine], Vraylar [Cariprazine], [...] daily. Per Counseling (more content not included)... [facility] 06-01-2022 History of Presen t illness Narrative [...] &/TRANSPOS MEDIAN NRV CARPAL TUNNE Left 08/30/2009 [facility] PAST SURGICAL HISTORY OF 05/30/2019 C5-[address] Grace Long S PROBE PERC LUMBAR DISCECTOMY 04/2000 [facility] ALLERGIES Codeine, Seroquel [Quetiapine], Vraylar [Cariprazine], [...] psychiatrist. She is interested in seeing F remote ruby on rails developer. - CONSULT TO PSYCHIATRY 2. Insomnia, unspecified type - ICD9: 780.52, ICD10: G47.00 See above. Increase Elavil to 50 mg at bedtime 3. Panic anxiety syndrome - ICD9: 300.01, ICD10: F41.0 See above. 4. Coronary artery disease involving [place] coronary artery of [place] heart without angina pectoris - ICD9: 414.01, [...] Joanna Arce APRN.CNP documented in this encounter [facility] 04-12-2022 Miscellaneous Notes After appt 04/11/22 pcp is asking for med profile [facility] Called [facility]. They are not able to do this. Pt will need to come to their store and request this. Message left to pt with this info Called [facility]. Message left with same request. documented in this encounter [facility] 04-11-2022 History of Presen t illness Narrative This note was created using BitMethodter. Subjective Transitional Care Management Progress Note The patients TCM visit was performed within the 7 days of discharge. Patient's Date of discharge: 04/06/2022 Date of initial coordinator contact after discharge: 04/09/2022 Discharge diagnosis: Acute GA. Cardiac arrest. Medication review completed Yes Jericho [...] Kidney Disease (Hcc) Coronary Artery Disease Involving [place] Coronary Artery of [place] Heart Without Angina Pectoris St Elevation Myocardial [...] &/TRANSPOS MEDIAN NRV CARPAL TUNNE Left 08/30/2009 [facility] PAST SURGICAL HISTORY OF 05/30/2019 C5-[address] Grace Long S PROBE PERC LUMBAR DISCECTOMY 04/2000 [facility] Social History Tobacco Use Smoking status: [...] I49.01 - In the setting of acute GA. 3. Coronary artery disease involving [place] coronary artery of [place] heart without angina pectoris - ICD9: 414.01, [...] Jericho Tinoco MD documented in this encounter [facility] documented as of this encounter (statuses as of 08/29/2022) [facility] History of Past illness Narrative* Problem [...] of this encounter (statuses as of 11/12/2022) [facility] History of Past illness Narrative* Problem [...] of this encounter (statuses as of 11/16/2022) [facility] History of Past illness Narrative* Problem [...] of this encounter (statuses as of 12/05/2022) [facility] History of Past illness Narrative* Problem [...] of this encounter (statuses as of 01/15/2023) [facility] History of Past illness Narrative* Problem [...] of this encounter (statuses as of 01/15/2023) [facility] History of Past illness Narrative* Problem [...] of this encounter (statuses as of 01/21/2023) [facility] of Past illness Narrative* Problem [...] of this encounter (statuses as of 02/09/2023) [facility] History of Past illness Narrative* Problem [...] of this encounter (statuses as of 02/13/2023) [facility] History of Past illness Narrative* Problem [...] of this encounter (statuses as of 02/20/2023) [facility] History of Past illness Narrative* Problem [...] of this encounter (statuses as of 03/06/2023) [facility] of Past illness Narrative* Problem [...] of this encounter (statuses as of 03/12/2023) [facility] History of Past illness Narrative* Problem [...] of this encounter (statuses as of 03/20/2023) [facility] History of Past illness Narrative* Problem [...] of this encounter (statuses as of 04/08/2023) [facility] History of Past illness Narrative* Problem [...] of this encounter (statuses as of 05/20/2023) [facility] History of Present illness Narrative* Brigette Fregoso LPN - 04/09/2022 3:16 PM EST TRANSITION CARE MANAGEMENT (TCM) INITIAL CONTACT Digital Printer Operator Outreach Provider Action/FYI: Apt has been scheduled Initial contact with patient post discharge, spoke to patient. Patient identified by name and . TRANSITION CARE MANAGEMENT INITIAL OUTREACH DOCUMENTATION: Date of Outreach: 04/09/2022 Outreach Attempt 1: Contact Made Date of Discharge 04/06/2022 Some recent data might be hidden SUMMARY: -Pt discharged from [facility] on 04/06/22. -Admitted for: heart attack [...] home? Yes Medical records from recent hospitalization: [facility] has records if not received [facility] Discharge instructions Patient Education 03/08/2022 [...] leg Difficulty speaking, swallowing or walking Seizure [id number] [employer] [place] [address], [place] [address]. All rights reserved. This information is not intended as a substitute for professional medical care. Always follow yourhealthcare professional's instructions. Follow Up Care 03/08/2022 15:34:05 With:JERICHO TINOCO MD Address: [address] [place] [address]- When:2-4 days [facility] 11-03-2022 Emergency department Discharge summary Discharge Instructions Thank you for allowing [facility] to assist you with your healthcare needs. The following is importantdischarge information regarding your hospital visit. Diagnosis from Today's Visit Shingles Rash What to Do Next Instructions from Your Care Team No qualifying data available. Post Acute Orders No qualifying data available. You Need to Schedule the Following Appointments Follow Up with JERICHO TINOCO MD When Within 2-4 days Where: [address], [place] [id number]- Allergies Dilaudid Percocet 5/325 SEROquel codeine traMADol [...] Duration: 7 Days Printed Prescription Changed acetaminophen-hydrocodone ([place] 325- 5 mg oral tablet) 1 tab(s) by mouth Two (2) times a day Changed acetaminophen-hydrocodone ([place] 325- 5 mg oral tablet) 1 tab(s) [...] leg Difficulty speaking, swallowing or walking Seizure [id number] [employer] [place], [place] [id number]. All rights reserved. This information is not intended as a substitute for professional medical care. Always follow yourhealthcare professional's instructions. Additional Information VACCINATE! IT SAVES LIVES! Members of the community who have not yet received the COVID-19 vaccine and would like to receive it can visit one of [facility] vaccine clinics. There are many vaccine clinic locations within the [facility]. For locations and available times, please visit [email or web address]. It is important to note that some COVID mobile vaccine clinics are held outdoors and may be canceled in rainy orstormy conditions. To learn more about pediatric vaccinations (ages 5-11), we invite you to visit the [facility] webpage. [email or web address] learn more about the COVID-19 vaccine, we invite you to visit the [facility] website for a list of frequently asked questions. [email or web address] Patient Portal Access Instructions: Stay connected with your healthcare team and access your personal medical information anytime with the [facility] Patient Portal. If you would like a full copy of your medical records please contact the [facility] Medical Records Department Saturday through Saturday between 8a.m. and 4:30p.m. Please follow the directions below to access the portal: 1.Access the email account you provided upon registration to the [facility].2.Look for an invitation email from [facility].3.Open the email and access the invitation link: Accept Invitation to [facility]4.Fill in the required alamo to create your account. Sign into www.[employer] with your username and password that you [...] you will allow to register on the [facility] Patient Portal for access to your information. You can also access the [facility] [facility] Patient Portal on the [employer] dasha. Simply click on Health Records under peerTransfer and then click on the [employer] logo. HOW TO SAFELY DISPOSE OF PRESCRIPTION [...] Call your local pharmacy or go to [email or web address] to find one close to you.3.Make use of household items: Use cat litter or old coffee grounds to dispose medications if other options arenot available. Mix your drugs with these household products, seal them in an airtight container andthrow it into the garbage. Call [facility]: [phone] to be sure your drugs can be [...] aware that I should contact my doctor. 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: Date/Time: Relationship to Patient: Witness Name/Signature: Date/Time: [facility]10-27-2022 History of Present illness Narrative * [...] intervention Jericho Tinoco MD [facility]* Diagnosis Type 2 diabetes [...] obesity type (HCC) documented in this encounter [facility]10-[facility]-2022 Miscellaneous Notes* Telephone Encounter - Jericho Tinoco MD - 02/23/2022 1:08 PM EDT [facility] Nurse Note* Peggy Diaz LPN - 01/18/2022 1:01 PM EDT Intake information documented in the prior visit with FLASH Caceres today. [facility] Procedure note* FLASH Caceres - 01/18/2022 [...] 2022 TIME: 12:58 PM [facility] in [facility] History of Present illness Narrative* FLASH Caceres - 01/18/2022 12:45 PM EDT PULM FUNCTION SMARTBLOCK: Provider: Jamilah Galvan PA-C Assisting Tech: FLASH Caceres Spirometry: 1 Exhaled Nitric Oxide: 1 [facility] in [facility] History of Present illness Narrative* Jamilah Galvan PA-C - 01/18/2022 12:45 PM EDT [facility] [place], 01/18/2022: Name: Juan Eagle : 1965 The [...] FEF75 (L/sec) 0.69 0.28 1.54 0.92 133 QKD89-29 (L/sec) 2.32 1.24 3.74 2.57 110 PEF [...] answers. Jamilah Galvan PA-C [facility] Miscellaneous Notes* Telephone Encounter - Gricelda Duckworth LPN - 12/04/2021 5:02 PM EDT Below left referral on identified vm. Faxed referral to [facility] scheduling. Gricelda Duckworth LPN * Telephone [...] Tinoco MD * Telephone Encounter - Gabriela Flroes LPN - 12/04/2021 9:19 AM EDT Patient is calling asking for a referral to [facility] dietitian. She is wanting directions on what to eatand not to eat with the dx of 3rd stage renal failure. [facility] Miscellaneous Notes* Telephone Encounter - Brigette Linares - 07/21/2021 11:21 AM EDT Patient electronically requesting refills as follows: Pending Prescriptions Disp Refills LANSOPRAZOLE 30 MG CAPSULE,DELAYED RELEASE 90 capsule 3 Sig: Take 1 capsule by mouth once daily. AURY: No Please review and advise. Brigette Linares documented in [facility] History of Past illness Narrative* Problem [...] of this encounter (statuses as of 12/04/2021) [facility] of Past illness Narrative* Problem [...] of this encounter (statuses as of 12/04/2021) [facility] of Past illness Narrative* Problem [...] of this encounter (statuses as of 01/18/2022) [facility] Past illness Narrative* Problem [...] of this encounter (statuses as of 01/18/2022) [facility] illness Narrative* Problem [...] of this encounter (statuses as of 02/23/2022) [facility] Narrative* Problem [...] of this encounter (statuses as of 03/01/2022) [facility] Narrative* Problem [...] of this encounter (statuses as of 04/12/2022) [facility] Narrative* Problem [...] of this encounter (statuses as of 04/12/2022) [facility] Narrative* Problem [...] of this encounter (statuses as of 04/13/2022) [facility] Narrative* Problem [...] of this encounter (statuses as of 06/01/2022) [facility] Narrative* Problem [...] of this encounter (statuses as of 06/22/2022) [facility] Narrative* Problem [...] of this encounter (statuses as of 06/28/2022) [facility] Narrative* Problem [...] of this encounter (statuses as of 07/01/2022) [facility] Narrative* Problem [...] of this encounter (statuses as of 07/01/2022) [facility] Narrative* Problem [...] of this encounter (statuses as of 07/19/2022) [address]21-2021 History of Past illness Narrative* Problem [...] of this encounter (statuses as of 07/20/2022) [facility] Narrative* Problem [...] of this encounter (statuses as of 08/23/2022) [facility] of [facility] Narrative* Problem Noted Date Resolved Date BMI 45.0-49.9, adult 01/25/2020 03/20/2021 Thumb tendonitis 01/20/2016 02/20/2017 Osteoarthritis of lumbar spine 12/05/2015 1 Depression 04/11/2015 08/10/2017 Low back pain 04/11/2015 02/20/2017 Gastroesophageal reflux disease without esophagi tis 04/11/2015 12/16/2019 documented as of this encounter (statuses as of 07/24/2021) [facility] of Past [facility] Narrative* Problem Noted Date Resolved Date BMI 45.0-49.9, adult 01/25/2020 03/20/2021 Thumb tendonitis 01/20/2016 02/20/2017 Osteoarthritis of lumbar spine 12/05/2015 1 Depression 04/11/2015 08/10/2017 Low back pain 04/11/2015 02/20/2017 Gastroesophageal reflux disease without esophagi tis 04/11/2015 12/16/2019 documented as of this encounter (statuses as of 09/01/2021) [facility] + Plan note No data available for this section [facility] Evaluation note* Diagnosis Gastroesophageal reflux disease without esophagitis Esophageal reflux documented in this encounter [facility] note* Diagnosis Type 2 diabetes mellitus without complication (HCC) Type II or unspecified type diabetes mellitus without mention of complication, not stated as uncontrolled documented in this encounter [facility] note* Diagnosis Stage 3b chronic kidney disease (HCC)- Primary documented in this encounter [facility] note* Diagnosis Stage 3b chronic kidney disease (HCC)- Primary Type 2 diabetes mellitus without complication, without long-term current use of insulin ([facility]) documented in this encounter [facility] note* Diagnosis Moderate persistent asthma without complication Unspecified asthma documented in this encounter [facility] note* Diagnosis Moderate persistent asthma without complication Unspecified asthma documented in this encounter [facility] note* Diagnosis Moderate persistent asthma without complication- Primary Unspecified asthma Gastroesophageal reflux disease without esophagitis Esophageal reflux Tobacco use disorder JOSE (obstructive sleep apnea) Obstructive sleep apnea (adult) (pediatric) documented in this encounter [facility] note* Diagnosis Stage 3b chronic kidney disease (HCC)- Primary Panic anxiety syndrome Panic disorder without agoraphobia documented in this encounter [facility] note* Diagnosis ST elevation myocardial infarction involving left circumflex coronary artery ([facility])- Primary Acute myocardial infarction of other specified sites, initial episode of care Ventricular fibrillation (HCC) Ventricular fibrillation Coronary artery disease involving [place] coronary artery of [place] heart without angina pectoris Ischemic cardiomyopathy Other specified forms of chronic ischemic heart disease Mixed hyperlipidemia Type 2 diabetes mellitus with stage 3a chronic kidney disease, without long-term current use of insulin ([facility]) Tobacco use disorder [facility] Bipolar affective disorder, remission status unspecified ([facility])- Primary Insomnia, unspecified type Panic anxiety syndrome Panic disorder without agoraphobia Coronary artery disease involving [place] coronary artery of [place] heart without angina pectoris Persistent headaches Headache Type 2 diabetes mellitus with stage 3a chronic kidney disease, without long-term current use of insulin ([facility]) Morbid obesity with BMI of 45.0-49.9, adult ([facility]) Morbid obesity Psoriatic arthritis (HCC) Psoriatic arthropathy [facility] Diagnosis Persistent headaches Headache Gastroesophageal reflux disease without esophagitis Esophageal reflux [facility]* Diagnosis Encounter for long-term (current) use of medications- Primary Encounter for long-term (current) use of other medications Bipolar affective disorder, remission status unspecified ([facility]) PTSD (post-traumatic stress disorder) Posttraumatic stress disorder Panic disorder with agoraphobia Agoraphobia with panic disorder Dyskinesia, tardive Subacute dyskinesia due to drugs [facility]* Diagnosis SOB (shortness of breath)- Primary Shortness of breath Mild intermittent asthma without complication Unspecified asthma Morbid obesity (HCC) Morbid obesity Cigarette smoker Tobacco use disorder [facility]* Diagnosis SOB (shortness of breath) Shortness of breath [facility]* Diagnosis PTSD (post-traumatic stress disorder)- Primary Posttraumatic stress disorder Panic disorder with agoraphobia Agoraphobia with panic disorder Dyskinesia, tardive Subacute dyskinesia due to drugs Bipolar affective disorder, currently depressed, moderate ([facility]) Bipolar I disorder, most recent episode (or current) depressed, moderate [facility]* Diagnosis Encounter for screening mammogram for breast cancer [facility]* Diagnosis Diabetic mononeuropathy associated with diabetes mellitus due to underlying condition ([facility])- Primary Callus of foot Corns and callosities Ingrowing toenail Ingrowing nail Onychomycosis Dermatophytosis of nail Pain in toe of left foot Pain in limb Pain in toe of right foot Pain in limb Diminished pulses in lower extremity Other symptoms involving cardiovascular system [facility]* Diagnosis Bipolar affective disorder, currently depressed, moderate ([facility])- Primary Bipolar I disorder, most recent episode (or current) depressed, moderate Dyskinesia, tardive Subacute dyskinesia due to drugs Panic disorder with agoraphobia Agoraphobia with panic disorder PTSD (post-traumatic stress disorder) Posttraumatic stress disorder [facility]* Diagnosis Moderate persistent asthma without complication- Primary Unspecified asthma Morbid obesity (HCC) Morbid obesity Gastroesophageal reflux disease without esophagitis Esophageal reflux Cigarette smoker Tobacco use disorder [facility]* Diagnosis Panic disorder with agoraphobia Agoraphobia with panic disorder Dyskinesia, tardive Subacute dyskinesia due to drugs [facility]* Diagnosis Wrist pain, right- Primary Pain in joint, forearm Psoriatic arthritis (HCC) Psoriatic arthropathy Type 2 diabetes mellitus with stage 3a chronic kidney disease, without long-term current use of insulin ([facility]) [facility]* Diagnosis Persistent headaches Headache documented in this encounter [facility] note* Diagnosis Dyskinesia, tardive- Primary Subacute dyskinesia due to drugs Bipolar affective disorder, currently depressed, moderate (HCC) Bipolar I disorder, most recent episode (or current) depressed, moderate Panic disorder with agoraphobia Agoraphobia with panic disorder PTSD (post-traumatic stress disorder) Posttraumatic stress disorder documented in this encounter [facility] note* Diagnosis Bipolar affective disorder, currently depressed, moderate (HCC)- Primary Bipolar I disorder, most recent episode (or current) depressed, moderate Dyskinesia, tardive Subacute dyskinesia due to drugs Panic disorder with agoraphobia Agoraphobia with panic disorder PTSD (post-traumatic stress disorder) Posttraumatic stress disorder documented in this encounter [facility] Discharge instructions No data available for this section [facility] Progress note No data available for this section [facility] Reason for referral (narrative)* Outpatient Procedure (Routine) - Pending Review Specialty Diagnoses / Procedures Referred By Patrick t Referred To [facility] Diagnoses Encounter for long-term (current) use of medications Procedures ECG COMPLETE ECG ROUTINE ECG W/LEAST 12 LDS W/I&R Seda Quiroz, HAY RAKE OPERATOR.BUSINESS INFORMATION CONSULTANT [address] [place] [address] [facility] [address] [address] Referral ID Status Reason Start Date Expiration Date Visits Requested Visits Authorized [id number] Pending Review Auto-Generat ed Referral 06/22/2022 06/22/2023 1 1 [facility] for referral (narrative)* Outpatient Procedure (Routine) - Authorized Specialty Diagnoses / Procedures [facility] Diagnoses SOB (shortness of breath) Procedures SPIROMETRY BASELINE ONLY SPMTRY W/VC EXPIRATORY JEWEL W/WO MXML VOL VNTJ Talia Dias MD [address] [place] [address] [facility] [place] [address] [place] [address] Referral ID Status Reason Start Date Expiration Date Visits Requested Visits Authorized [id number] Authorized Auto-Generat ed Referral 07/19/2022 08/18/2023 1 1 [facility] for referral (narrative)* Diagnostic Procedure Only (Routine) - Pending Review Specialty Diagnoses / Procedures Referred By [facility] Referred To Contact [facility] Diagnoses Encounter for screening mammogram for breast cancer Procedures JEANNETTE SCREENING SCREENING MAMMOGRAPHY BI 2-VIEW BREAST INC CAD Jericho Tinoco MD [address] [place] [address] [facility] [address] [place] [id number] Referral ID Status Reason Start Date Expiration Date Visits Requested Visits Authorized [id number] Pending Review Auto-Generat ed Referral 11/07/2022 12/07/2023 1 1 [facility] for referral (narrative)* Outpatient Procedure (Routine) - Authorized Specialty Diagnoses / Procedures [facility] Referred To Contact [facility] [place] Diagnoses Ingrowing toenail Procedures PVR ANK PRESS [facility] NON-INVAS PHYSIOLOGIC STD EXTREMITY ART 2 LEVEL Aron Navarro [address] [address] [facility] [place] [address] [place] [address] Referral ID Status Reason Start Date Expiration Date Visits Requested Visits Authorized [id number] Authorized Auto-Generat ed Referral 12/04/2022 12/04/2023 1 1 [facility] Summary Purpose Family History No Family History Records FoundNo Family History Records FoundNo Family History Records FoundNo Family History Records Found Advance Directives No Advanced Directives Records FoundDocuments on File Type Date Recorded 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 Advance Directive(s) 05/29/2019 12:50 PM Advance Directive(s) 04/16/2016 1:49 PM Advance Directive(s) 01/16/2016 9:20 AM Advance Directive(s) 12/19/2015 7:24 AM Reason for Referral Specialty Diagnoses / Procedures Referred By Contac t Referred To Contact Rheumatology Diagnoses Psoriatic arthritis (HCC) Procedures CONSULT TO RHEUM/IMMUN DISEASE Jericho Tinoco MD [address] [place] [address] Referral ID Status Reason Start Date Expiration Date Visits Requested Visits Authorized [id number] Ref Not Required PCP Requested Referral 03/06/2023 03/05/2024 1 1 Specialty Diagnoses / Procedures Referred By Patrick mchugh Referred To Contact Diagnoses Bipolar affective disorder, remission status unspecified (HCC) Procedures CONSULT TO PSYCHIATRY OFFICE/OUTPATIENT [facility] MDM 60-74 MINUTES Older, LEONELA Marshall.BUSINESS INFORMATION CONSULTANT [address] [place] [address] Referral ID Status Reason Start Date Expiration Date Visits Requested Visits Authorized [id number] Pending Review PCP Requested Referral 06/01/2022 06/01/2023 1 1 Additional Source Comments INFORMATION SOURCE (unrecogn ized section and content) DATE CREATED AUTHOR AUTHOR'S ORGANIZ ATION 06/19/2020 [facility] DATE CREATED AUTHOR AUTHOR'S ORGANIZ ATION 05/17/2022 [facility] ([place]) DATE CREATED AUTHOR AUTHOR'S NERI ATION 05/20/2023 [facility] Source Comments (unrecognize d section and content) In the event this informatio n is protected by the Federal Confidentiality of Alcohol and Drug Abuse Patient Records regulations: The Federal rules restrict any use of the information to criminally investigate or prosecute any alcohol or drug abuse patient.[facility] the event this information is protected by the Federal Confidentiality of Alcohol and Drug Abuse Patient Records regulations: The Federal rules restrict any use of the information to criminally investigate or prosecute any alcohol or drug abuse patient.[facility] the event this information is protected by the Federal Confidentiality of Alcohol and Drug Abuse Patient Records regulations: The Federal rules restrict any use of the information to criminally investigate or prosecute any alcohol or drug abuse patient.[facility] the event this information is protected by the Federal Confidentiality of Alcohol and Drug Abuse Patient Records regulations: The Federal rules restrict any use of the information to criminally investigate or prosecute any alcohol or drug abuse patient.[facility] Hospital[facility] the event this information is protected by the Federal Confidentiality of Alcohol and Drug Abuse Patient Records regulations: The Federal rules restrict any use of the information to criminally investigate or prosecute any alcohol or drug abuse patient.[facility] Hospital[facility] the event this information is protected by the Federal Confidentiality of Alcohol and Drug Abuse Patient Records regulations: The Federal rules restrict any use of the information to criminally investigate or prosecute any alcohol or drug abuse patient.[facility] Hospital[facility] the event this information is protected by the Federal Confidentiality of Alcohol and Drug Abuse Patient Records regulations: The Federal rules restrict any use of the information to criminally investigate or prosecute any alcohol or drug abuse patient.[facility] HospitalIn the event this information is protected by the Federal Confidentiality of Alcohol and Drug Abuse Patient Records regulations: The Federal rules restrict any use of the information to criminally investigate or prosecute any alcohol or drug abuse patient.[facility] Hospital[facility] the event this information is protected by the Federal Confidentiality of Alcohol and Drug Abuse Patient Records regulations: The Federal rules restrict any use of the information to criminally investigate or prosecute any alcohol or drug abuse patient.[facility] Hospital[facility] the event this information is protected by the Federal Confidentiality of Alcohol and Drug Abuse Patient Records regulations: The Federal rules restrict any use of the information to criminally investigate or prosecute any alcohol or drug abuse patient.[facility] Hospital[facility] the event this information is protected by the Federal Confidentiality of Alcohol and Drug Abuse Patient Records regulations: The Federal rules restrict any use of the information to criminally investigate or prosecute any alcohol or drug abuse patient.[facility] HospitalIn the event this information is protected by the Federal Confidentiality of Alcohol and Drug Abuse Patient Records regulations: The Federal rules restrict any use of the information to criminally investigate or prosecute any alcohol or drug abuse patient.[facility] Hospital[facility] the event this information is protected by the Federal Confidentiality of Alcohol and Drug Abuse Patient Records regulations: The Federal rules restrict any use of the information to criminally investigate or prosecute any alcohol or drug abuse patient.[facility] HospitalIn the event this information is protected by the Federal Confidentiality of Alcohol and Drug Abuse Patient Records regulations: The Federal rules restrict any use of the information to criminally investigate or prosecute any alcohol or drug abuse patient.[facility] HospitalIn the event this information is protected by the Federal Confidentiality of Alcohol and Drug Abuse Patient Records regulations: The Federal rules restrict any use of the information to criminally investigate or prosecute any alcohol or drug abuse patient.[facility] HospitalIn the event this information is protected by the Federal Confidentiality of Alcohol and Drug Abuse Patient Records regulations: The Federal rules restrict any use of the information to criminally investigate or prosecute any alcohol or drug abuse patient.[facility] Hospital[facility] the event this information is protected by the Federal Confidentiality of Alcohol and Drug Abuse Patient Records regulations: The Federal rules restrict any use of the information to criminally investigate or prosecute any alcohol or drug abuse patient.[facility] HospitalIn the event this information is protected by the Federal Confidentiality of Alcohol and Drug Abuse Patient Records regulations: The Federal rules restrict any use of the information to criminally investigate or prosecute any alcohol or drug abuse patient.[facility] Hospital[facility] the event this information is protected by the Federal Confidentiality of Alcohol and Drug Abuse Patient Records regulations: The Federal rules restrict any use of the information to criminally investigate or prosecute any alcohol or drug abuse patient.[facility] HospitalIn the event this information is protected by the Federal Confidentiality of Alcohol and Drug Abuse Patient Records regulations: The Federal rules restrict any use of the information to criminally investigate or prosecute any alcohol or drug abuse patient.[facility] HospitalIn the event this information is protected by the Federal Confidentiality of Alcohol and Drug Abuse Patient Records regulations: The Federal rules restrict any use of the information to criminally investigate or prosecute any alcohol or drug abuse patient.[facility] HospitalIn the event this information is protected by the Federal Confidentiality of Alcohol and Drug Abuse Patient Records regulations: The Federal rules restrict any use of the information to criminally investigate or prosecute any alcohol or drug abuse patient.[facility] HospitalIn the event this information is protected by the Federal Confidentiality of Alcohol and Drug Abuse Patient Records regulations: The Federal rules restrict any use of the information to criminally investigate or prosecute any alcohol or drug abuse patient.[facility] HospitalIn the event this information is protected by the Federal Confidentiality of Alcohol and Drug Abuse Patient Records regulations: The Federal rules restrict any use of the information to criminally investigate or prosecute any alcohol or drug abuse patient.[facility] HospitalIn the event this information is protected by the Federal Confidentiality of Alcohol and Drug Abuse Patient Records regulations: The Federal rules restrict any use of the information to criminally investigate or prosecute any alcohol or drug abuse patient.[facility] HospitalIn the event this information is protected by the Federal Confidentiality of Alcohol and Drug Abuse Patient Records regulations: The Federal rules restrict any use of the information to criminally investigate or prosecute any alcohol or drug abuse patient.[facility] HospitalIn the event this information is protected by the Federal Confidentiality of Alcohol and Drug Abuse Patient Records regulations: The Federal rules restrict any use of the information to criminally investigate or prosecute any alcohol or drug abuse patient.[facility] HospitalIn the event this information is protected by the Federal Confidentiality of Alcohol and Drug Abuse Patient Records regulations: The Federal rules restrict any use of the information to criminally investigate or prosecute any alcohol or drug abuse patient.[facility] HospitalIn the event this information is protected by the Federal Confidentiality of Alcohol and Drug Abuse Patient Records regulations: The Federal rules restrict any use of the information to criminally investigate or prosecute any alcohol or drug abuse patient.[facility] HospitalIn the event this information is protected by the Federal Confidentiality of Alcohol and Drug Abuse Patient Records regulations: The Federal rules restrict any use of the information to criminally investigate or prosecute any alcohol or drug abuse patient.[facility] HospitalIn the event this information is protected by the Federal Confidentiality of Alcohol and Drug Abuse Patient Records regulations: The Federal rules restrict any use of the information to criminally investigate or prosecute any alcohol or drug abuse patient.[facility] HospitalIn the event this information is protected by the Federal Confidentiality of Alcohol and Drug Abuse Patient Records regulations: The Federal rules restrict any use of the information to criminally investigate or prosecute any alcohol or drug abuse patient.[facility] HospitalIn the event this information is protected by the Federal Confidentiality of Alcohol and Drug Abuse Patient Records regulations: The Federal rules restrict any use of the information to criminally investigate or prosecute any alcohol or drug abuse patient.[facility] HospitalIn the event this information is protected by the Federal Confidentiality of Alcohol and Drug Abuse Patient Records regulations: The Federal rules restrict any use of the information to criminally investigate or prosecute any alcohol or drug abuse patient.[facility] HospitalIn the event this information is protected by the Federal Confidentiality of Alcohol and Drug Abuse Patient Records regulations: The Federal rules restrict any use of the information to criminally investigate or prosecute any alcohol or drug abuse patient.[facility] Reason for Visit (unrecogniz ed section and content) Reason Comments Referral Request Reason Comments Spirometry Specialty Diagnoses / Procedures Referred By Contac t Referred To Contact [facility] Diagnoses Moderate persistent asthma without complication Procedures SPIROMETRY BASELINE ONLY SPMTRY W/VC EXPIRATORY JEWEL W/WO MXML VOL VNTJ Jamilah Galvan PA-C [address] [place] [address] [address] Referral ID Status Reason Start Date Expiration Date V isits Requested Visits Authorized [id number] Closed Auto-Generate d Referral 07/17/2021 08/16/2022 1 1 Specialty Diagnoses / Procedures Referred By Contac t Referred To Contact [facility] [place] Diagnoses Moderate persistent asthma without complication Procedures NITRIC OXIDE, EXHALED NITRIC OXIDE GAS DETERMINATION Jamilah Galvan PA-C [address] [place] [address] [address] Referral ID Status Reason Start Date Expiration Date V isits Requested Visits Authorized [id number] Closed Auto-Generate d Referral 07/17/2021 08/16/2022 1 1 Reason Comments Established Patient 6 month follow up as thma Reason Comments Recheck Reason Comments Patient Update Reason Onset Date Comments Transition Of Care 04/09/2022 Reason Comments Hospital F/U [facility] Reason Comments Follow Up Reason Comments Patient Question Reason Comments Medication Problem Breo Reason Onset Date Comments Refill Request 06/28/2022 Reason Comments New Patient Evaluation Specialty Diagnoses / Procedures Referred By Contac t Referred To Contact Diagnoses Bipolar affective disorder, remission status unspecified (HCC) Procedures CONSULT TO PSYCHIATRY OFFICE/OUTPATIENT NEW HIGH MDM 60-74 MINUTES Older, Joanna, HAY RAKE OPERATOR.BUSINESS INFORMATION CONSULTANT [address] [place] [address] Referral ID Status Reason Start Date Expiration Date Visits Requested Visits Authorized [id number] Pending Review PCP Requested Referral 06/01/2022 06/01/2023 1 1 Reason Comments Established Patient 6 month follow up Asthma Specialty Diagnoses / Procedures Referred By Contac t Referred To Contact [facility] Diagnoses SOB (shortness of breath) Procedures SPIROMETRY BASELINE ONLY SPMTRY W/VC EXPIRATORY JEWEL W/WO MXML VOL VNTTalia Francois MD [address] [place] [address] [facility] [place] [address] [place] [address] Referral ID Status Reason Start Date Expiration Date V isits Requested Visits Authorized [id number] Closed Auto-Generate d Referral 07/19/2022 08/18/2023 1 1 Reason Comments Follow Up Specialty Diagnoses / Procedures Referred By Contac t Referred To Contact Psychiatry / ADULT PSYCHIATRY Diagnoses Follow up Procedures VIDEO PSYC/PSYL EST Claude, Joanna, HAY RAKE OPERATOR.BUSINESS INFORMATION CONSULTANT [address] [place] [address] Seda Quiroz, HAY RAKE OPERATOR.BUSINESS INFORMATION CONSULTANT [address] [place] [address] Referral ID Status Reason Start Date Expiration Date V isits Requested Visits Authorized [id number] Pending Review 08/23/2022 05/05/2023 30 30 Reason Comments Results Reason Comments Letter Reason Comments Established Patient Diabetic Foot Care Reason Comments Refill Request Reason Comments Express Care follow-up Reason Onset Date Comments Refill Request 03/09/2023 Specialty Diagnoses / Procedures Referred By Contac t Referred To Contact Psychiatry / ADULT PSYCHIATRY Diagnoses FOLLOW UP Procedures EST PSYC ADULT Jericho Tinoco MD [address] [place] [address] Seda Quiroz, HAY RAKE OPERATOR.BUSINESS INFORMATION CONSULTANT [address] [place] [address] Referral ID Status Reason Start Date Expiration Date V isits Requested Visits Authorized [id number] Pending Review 04/02/2023 07/01/2023 1 1 Care Teams (unrecognized sec tion and content) Ceiling Insulation Blower Relationship Specialty Start Date End Date Jericho Tinoco MD [address] [place] [address] PCP - General Internal Medicine 05/26/15 Ceiling Insulation Blower Relationship Specialty Start Date End Date Jericho Tinoco MD [address] [place] [address] PCP - General Internal Medicine 05/26/15 Ceiling Insulation Blower Relationship Specialty Start Date End Date Jericoh Tinoco MD [facility] [place] [address] PCP - General Internal Medicine 05/26/15 Ceiling Insulation Blower Relationship Specialty Start Date End Date Jericho Tinoco MD [facility] [place] [address] PCP - General Internal Medicine 05/26/15 Ceiling Insulation Blower Relationship Specialty Start Date End Date Jericho Tinoco MD [address] [place] [address] PCP - General Internal Medicine 05/26/15 Ceiling Insulation Blower Relationship Specialty Start Date End Date Jericho Tinoco MD [address] [place] [address] PCP - General Internal Medicine 05/26/15 Ceiling Insulation Blower Relationship Specialty Start Date End Date Jericho Tinoco MD [facility] [place] [address] PCP - General Internal Medicine 05/26/15 Ceiling Insulation Blower Relationship Specialty Start Date End Date Jericho Tinoco MD [facility] [place] [address] PCP - General Internal Medicine 05/26/15 Ceiling Insulation Blower Relationship Specialty Start Date End Date Jericho Tinoco MD [address] [place] [address] PCP - General Internal Medicine 05/26/15 Ceiling Insulation Blower Relationship Specialty Start Date End Date Jericho Tinoco MD [address] [place] [address] PCP - General Internal Medicine 05/26/15 Ceiling Insulation Blower Relationship Specialty Start Date End Date Jericho Tinoco MD [address] [place] [address] PCP - General Internal Medicine 05/26/15 Ceiling Insulation Blower Relationship Specialty Start Date End Date Jericho Tinoco MD [address] [place] [address] PCP - General Internal Medicine 05/26/15 Ceiling Insulation Blower Relationship Specialty Start Date End Date Jericho Tinoco MD [address] [place] [address] PCP - General Internal Medicine 05/26/15 Ceiling Insulation Blower Relationship Specialty Start Date End Date Jericho Tinoco MD [address] [place] [address] PCP - General Internal Medicine 05/26/15 Ceiling Insulation Blower Relationship Specialty Start Date End Date Jericho Tinoco MD [address] [place] [address] PCP - General Internal Medicine 05/26/15 Ceiling Insulation Blower Relationship Specialty Start Date End Date Jericho Tinoco MD [address] [place] [address] PCP - General Internal Medicine 05/26/15 Ceiling Insulation Blower Relationship Specialty Start Date End Date Jericho Tinoco MD [address] [place] [address] PCP - General Internal Medicine 05/26/15 Ceiling Insulation Blower Relationship Specialty Start Date End Date Jericho Tinoco MD [address] [place] [address] PCP - General Internal Medicine 05/26/15 Ceiling Insulation Blower Relationship Specialty Start Date End Date Jericho Tinoco MD [address] [place] [address] PCP - General Internal Medicine 05/26/15 Ceiling Insulation Blower Relationship Specialty Start Date End Date Jericho Tinoco MD [address] [place] [address] PCP - General Internal Medicine 05/26/15 Ceiling Insulation Blower Relationship Specialty Start Date End Date Jericho Tinoco MD [address] [place] [address] PCP - General Internal Medicine 05/26/15 Ceiling Insulation Blower Relationship Specialty Start Date End Date Jericho Tinoco MD [address] [place] [address] PCP - General Internal Medicine 05/26/15 Ceiling Insulation Blower Relationship Specialty Start Date End Date Jericho Tinoco MD [address] [place] [address] PCP - General Internal Medicine 05/26/15 Ceiling Insulation Blower Relationship Specialty Start Date End Date Jericho Tinoco MD [address] [place] [address] PCP - General Internal Medicine 05/26/15 Ceiling Insulation Blower Relationship Specialty Start Date End Date Jericho Tinoco MD [address] [place] [address] PCP - General Internal Medicine 05/26/15 Ceiling Insulation Blower Relationship Specialty Start Date End Date Jericho Tinoco MD [address] [place] [address] PCP - General Internal Medicine 05/26/15 Ceiling Insulation Blower Relationship Specialty Start Date End Date Jericho Tinoco MD [address] [place] [address] PCP - General Internal Medicine 05/26/15 Ceiling Insulation Blower Relationship Specialty Start Date End Date Jericho Tinoco MD [address] [place] [address] PCP - General Internal Medicine 05/26/15 Ceiling Insulation Blower Relationship Specialty Start Date End Date Jericho Tinoco MD [address] [place] [address] PCP - General Internal Medicine 05/26/15 Ceiling Insulation Blower Relationship Specialty Start Date End Date Jericho Tinoco MD [address] [place] [address] PCP - General Internal Medicine 05/26/15 Care Team (unrecognized sect ion and content) Care Team Personnel Name: JERICHO TINOCO MD Member Role: Primary Care Physician Address: Address: [address] [place] [address]- [place] Name: ROBIN RIGGS MD Position: ED Physician Member Role: ED Physician Address: Address: [address] [place] [address]- [place] Name: [id number] Padilla Position: ED RN Member Role: ED RN Care Team Related Persons Name: AARON FLORES Care Team Personnel Name: JERICHO TINOCO MD Member Role: Primary Care Physician Address: Address: [facility] [place] [address]- Care Team Related Persons Name: AARON FLORES [...] BE BASED ON THE PRIMARY CLINICAL RECORDS. [employer] provides no warranty or guarantee of the accuracy or completeness of information in this document.
[2023-05-21] MEDS: Lactated Ringers 1,000 ML 75 ML IV (18:59)
--- NOTE | 2023-05-21 19:58 | VDLE_ITS ---
Reason For Study: Elevated D Dimer RIGHT LEFT GSV is normal. GSV is normal. CFV is compressible, spontaneous, competent CFV is compressible, spontaneous, competent, and demonstrates pulsatile venous flow. and demonstrates pulsatile venous flow. FV is compressible, spontaneous, competent FV is compressible, spontaneous, competent and demonstrates pulsatile venous flow. and demonstrates pulsatile venous flow. POP V is compressible, spontaneous, phasic, POP V is compressible, spontaneous, phasic, competent and demonstrates normal competent and demonstrates normal augmentation. augmentation. T/P Trunk is compressible. T/P Trunk is compressible. PTV is compressible. PTV is compressible. RT PerV is compressible. LT PerV is compressible. Procedure This is a venous duplex using B-mode, color flow and spectral Doppler. Exam performed portable in patient room. The study was technically difficult. A preliminary report was called and/or faxed to [facility] wharf attendant. VL/Venous Duplex US - [place] Extrem Interpretation Summary Deep veins of the bilateral lower extremities are patent and compressible segme ntally. There is no evidence of bilateral lower extremity deep vein thrombosis. The bilateral great saphenous veins appear patent and compressible segmentally. Ordering Physician: Devin Correa Referring Physician: N/A Performed By: Tyler Samson RVT
--- NOTE | 2023-05-21 19:59 | PCM.HOSP.N ---
Hospitalist Note I was called by the third floor RN and informed that this patient had an elevated D-dimer of 1.4 present on admission. Therefore, her subcu heparin was changed to IV. A CTA of her chest cannot be done due to her low estimated GFR of 22 mL/min. Therefore, a nuclear medicine ventilation/perfusion scan has been ordered urgently. Finally, lower extremity Dopplers were ordered for the a.m. to evaluate for possible DVT in this morbidly obese patient with assay positive for COVID-19.
[2023-05-21 21:56] LABS: Partial Thromboplast Time 34.7 Seconds (24.1-36.2)
[2023-05-21] MEDS: Pregabalin 75 MG Capsule PO (22:54)
[2023-05-21] MEDS: guaiFENesin 1,200 MG Tablet 1200 MG PO (22:54)
[2023-05-21] MEDS: Atorvastatin Calcium 40 MG Tablet PO (22:54)
[2023-05-21] MEDS: Carvedilol 6.25 MG Tablet PO (22:54)
[2023-05-21] MEDS: 0.9% Saline Lock 10 ML Syringe IV (22:55)
[2023-05-21] MEDS: HEPARIN/D5w 25,000 UNITS 25,000 UNITS/250 ML IV.SOLN. 16 UNITS CONT INF (23:25)
--- NOTE | 2023-05-21 23:32 | NURSING ---
Heparin drip initiated initial bolus 9500 units, 1.9 ml 1600 units/hour, 16 ml/hour
[2023-05-22] VITALS (9 sets, daily range): BP systolic 128–132; BP diastolic 62–72; PULSE 57–78; RESP 18–26; TEMP 36.6–37; O2SAT 92–97
[2023-05-22 00:08] LABS: Bedside Glucose 172 mg/dL (74-106)
[2023-05-22] MEDS: 0.9% Saline Lock 10 ML Syringe IV (06:15)
[2023-05-22 06:17] LABS: Absolute Lymphocyte Count 0.71 X10^3/uL (0.83-4.51); Absolute Neutrophil Count 2.3 X10^3/uL (2.0-7.7); Basophil# 0.02 X10^3/uL; Basophil% 0.6 % (0-1); Hematocrit 34.1 % (37-47); Hemoglobin 11.7 g/dL (12.0-15.0); Lymphocyte # 0.71 X10^3/ul (0.83-4.51); Lymphocyte % 22.4 % (19-41); Mean Corp Hgb Conc 34.3 g/dL (32-36); Mean Corpuscular Hgb 33.1 pg (27.0-32.0); Mean Corpuscular Volume 96.6 fL (81-99); Mean Platelet Vol. 10.4 fl (6.2-12.0); Monocyte# 0.09 X10^3/uL; Monocyte% 2.8 % (0-10); NRBC Flagged by Analyzer 0 % (0-5); Neutrophil # 2.33 X10^3/uL (2.7-7.7); Neutrophil % 73.6 % (47-70); POSITIVE MORPHOLOGY YES; Platelet Count 145 K/mm3 (150-450); RBC Distribution Width CV 16.2 % (11.6-14.6); RBC Distribution Width SD 57.1 fl (35.1-43.9); Red Blood Count 3.53 M/mm3 (4.2-5.4); White Blood Count 3.2 K/mm3 (4.4-11.0)
[2023-05-22] MEDS: Insulin Lispro 100 UNIT/ML INSULN.PEN SC ×2 (06:17→11:11)
[2023-05-22 06:22] LABS: Differential Indicated SCAN CRITERIA MET
[2023-05-22 06:33] LABS: Partial Thromboplast Time 218.7 Seconds (24.1-36.2)
--- NOTE | 2023-05-22 06:38 | NURSING ---
Heparin drip turn off per protcol
[2023-05-22 06:55] LABS: ALB/GLOB Ratio 0.9 RATIO (0.9-2.4); AST(SGOT) 48 U/L (15-37); Alanine Aminotransfer ALT/SGPT 63 U/L (13-56); Alkaline Phosphatase 125 U/L (45-117); Anion Gap 7 (5-15); BUN 24 mg/dL (7-18); BUN/Creat Ratio 13.6 RATIO (10-20); Calcium,Total 8.3 mg/dL (8.5-10.1); Chloride 107 mmol/L (98-107); Creatinine, Serum 1.76 mg/dL (0.55-1.02); EST Glomerular Filtration Rate 32 mL/min (>60); Est Glom Filt Rate - Afr Amer 38 mL/min (>60); Estimated Creatinine Clearance 43.43 ml/min; Globulin 3.4 g/dL (2.2-4.2); Glucose 176 mg/dL (74-106); Magnesium 2.7 mg/dL (1.6-2.6); Phosphorus 3.1 mg/dL (2.5-4.9); Potassium 4.2 mmol/L (3.5-5.1); Protein, Total 6.4 g/dL (6.4-8.2); Sodium Level 135 mmol/L (136-145); Thyroid Stim Hormone (TSH) 0.99 uIU/mL (0.358-3.74)
[2023-05-22 07:17] LABS: Differential Comment S
[2023-05-22 07:29] LABS: Bedside Glucose 167 mg/dL (74-106)
[2023-05-22] MEDS: Ipratropium/Albuterol Sulfate 3 ML AMPUL.NEB INHALATION ×4 (08:11→22:17)
[2023-05-22] MEDS: Lactated Ringers 1,000 ML 75 ML IV (08:51)
[2023-05-22] MEDS: Carvedilol 6.25 MG Tablet PO (08:52)
[2023-05-22] MEDS: Pantoprazole Sodium 40 MG Tablet PO (08:52)
[2023-05-22] MEDS: Aspirin E.C. 81 MG Tablet PO (08:52)
[2023-05-22] MEDS: Pregabalin 75 MG Capsule PO (08:52)
[2023-05-22] MEDS: guaiFENesin 1,200 MG Tablet 1200 MG PO (08:52)
[2023-05-22] MEDS: Clopidogrel Bisulfate 75 MG Tablet PO (08:53)
[2023-05-22] MEDS: Escitalopram Oxalate 20 MG Tablet PO (08:53)
--- NOTE | 2023-05-22 10:00 | NM_ITS ---
CLINICAL: 68-year-old female with history of elevation of the d-dimer and shortness of breath. 99m Tc MAA PERFUSION LUNG SCINTIGRAPHY COMPARISON: Plain film chest x-ray report 05/21/2023 FINDINGS: The ventilation study was not performed. Following the intravenous administration of 5.7 mCi of 99m Tc MAA the pulmonary perfusion study reveals observed mild non-uniform perfusion in the right and left lung [place] without moderate subsegmental or large segmental wedge shaped, peripheral perfusion defects identified. NM/Quant Lung Perfusion Scan IMPRESSION: 1. LOW PROBABILITY FOR PULMONARY EMBOLUS (R 12%) 99m Tc MAA pulmonary perfusion imaging examination, according to PISA-PED (Prospective Investigative Study of Pulmonary Embolism Diagnosis) interpretive criteria with regard given to the presence of minimally heterogeneous perfusion without significant peripheral perfusion abnormalities. (Britt et al, Am J Respir Crit Care Med 154: 1387, 1996). Electronically Signed: Haroldo Tabares DO at 11:44 EST ,
[2023-05-22] MEDS: lamoTRIgine 100 MG Tablet 200 MG PO (11:12)
[2023-05-22 11:33] LABS: Bedside Glucose 167 mg/dL (74-106)
[2023-05-22 14:50] LABS: Partial Thromboplast Time 61.2 Seconds (24.1-36.2)
--- OUTSIDE RECORDS SUMMARY | 2023-05-22 16:24 | XMS RPT_ITS | CCD ---
Author Name Unknown Address [address] [place] [address] Organization [facility] Care Team Providers Care Adhesive Bandage Making Operator Name Role Phone Ezequiel CARRANZA, Jericho Prado Primary Care Provider [phone] EZEQUIEL CARRANZA, DR HELM Primary Care Physician Ezequiel CARRANZA, Jericho Prado Primary Care Provider [phone] KARISHMA CARRANZA, ELIECER Dent Attending Unavailab christiano [...] [acetaminophen-oxy codone] Drug Allergy 5 GI Upset [facility] (20 sources) cariprazine; Translations: [CARIPRAZINE] Drug Allergy 9 Other: See Comments [facility] (20 sources) Codeine; Translations: [codeine] Drug Allergy 5 Other: See Comments [facility] (20 sources) HYDROmorphone; Translations: [HYDROMORPHONE (BULK)] Drug Allergy 5 GI Upset [facility] (20 sources) QUEtiapine; Translations: [quetiapine] Drug Allergy 9 Other: See Comments [facility] (20 sources) traMADol; Translations: [TRAMADOL HCL] Drug Allergy 5 GI Upset [facility] (2 sources) HYDROmorphone; Translations: [hydromorphone] Drug Allergy [facility] (2 sources) traMADol; Translations: [tramadol] Drug Allergy [facility] Medications Current Medications Medication Drug [...] every six hours as needed for pain [place] 325- 5 mg oral tablet Dose = [...] Coronary atherosclerosis; Translations: [Atherosclerotic heart disease of [place] coronary artery without angina pectoris] Onset: 2 [...] (20 sources) Patient encounter status; Translations: [Other roasterman (current) drug therapy] Onset: 07-01-2022 Episodic Other aftercare (1 source) Other roasterman (current) drug therapy; Translations: [Encounter for long-term [...] vinayak 05-14-2023 08:56-0500 Body weight 128.19 kg Sdea Rajguru AIRCRAFT REFUELER.CARPET INSTALLER HELPER Work Phone: [facility] 05-14-2023 08:56-0500 Diastolic blood pressure 58 mm[Hg] Seda Rajguru AIRCRAFT REFUELER.CARPET INSTALLER HELPER Work Phone: [facility] 05-14-2023 08:56-0500 Heart rate 80 /min Seda Rajguru AIRCRAFT REFUELER.CARPET INSTALLER HELPER Work Phone: [facility] 05-14-2023 08:56-0500 Systolic blood pressure 122 mm[Hg] Seda Rajguru AIRCRAFT REFUELER.CARPET INSTALLER HELPER Work Phone: [facility] 04-02-2023 13:37-0500 Body weight 126.1 kg Seda Rajguru AIRCRAFT REFUELER.CARPET INSTALLER HELPER Work Phone: [facility] 04-02-2023 13:37-0500 Diastolic blood pressure 66 mm[Hg] Seda Rajguru AIRCRAFT REFUELER.CARPET INSTALLER HELPER Work Phone: [facility] 04-02-2023 13:37-0500 Heart rate 80 /min Seda Rajguru AIRCRAFT REFUELER.CARPET INSTALLER HELPER Work Phone: [facility] 04-02-2023 13:37-0500 Systolic blood pressure 138 mm[Hg] Seda Rajguru AIRCRAFT REFUELER.CARPET INSTALLER HELPER Work Phone: [facility] 03-06-2023 11:02-0400 Body weight 127.87 kg Jericho Tinoco MD Work Phone: [facility] 03-06-2023 11:02-0400 Diastolic blood pressure 60 mm[Hg] Jericho Tinoco MD Work Phone: [facility] 03-06-2023 11:02-0400 Heart rate 64 /min Jericho Tinoco MD Work Phone: [facility] 03-06-2023 11:02-0400 Respiratory rate 20 /min Jericho Tinoco MD Work Phone: [facility] 03-06-2023 11:02-0400 Systolic blood pressure 118 mm[Hg] Jericho Tinoco MD Work Phone: [facility] 01-21-2023 12:56-0400 Body weight 124.29 kg Jamilah Memo PA-C Work Phone: [facility] 01-21-2023 12:56-0400 Diastolic blood pressure 60 mm[Hg] Jamilah Memo PA-C Work Phone: [facility] 01-21-2023 12:56-0400 Heart rate 62 /min Jamilah Memo PA-C Work Phone: [facility] 01-21-2023 12:56-0400 Respiratory rate 15 /min Jamilah Memo PA-C Work Phone: [facility] 01-21-2023 12:56-0400 SaO2% (BldA) [Mass fraction] 97 % Jamilah Memo PA-C Work Phone: [facility] 01-21-2023 12:56-0400 Systolic blood pressure 122 mm[Hg] Jamilah Memo PA-C Work Phone: [facility] 01-15-2023 08:17-0400 Body weight 126.55 kg Seda Rajguru AIRCRAFT REFUELER.CARPET INSTALLER HELPER Work Phone: [facility] 01-15-2023 08:17-0400 Diastolic blood pressure 58 mm[Hg] Seda Rajguru AIRCRAFT REFUELER.CARPET INSTALLER HELPER Work Phone: [facility] 01-15-2023 08:17-0400 Heart rate 76 /min Seda Rajguru AIRCRAFT REFUELER.CARPET INSTALLER HELPER Work Phone: [facility] 01-15-2023 08:17-0400 Systolic blood pressure 132 mm[Hg] Seda Rajguru AIRCRAFT REFUELER.CARPET INSTALLER HELPER Work Phone: [facility] 07-20-2022 15:15-0400 Body height 156.2 cm Pulm Wstr Work Phone: [facility] 07-20-2022 15:15-0400 Body weight 119.75 kg Pulm Wstr Work Phone: [facility] 07-19-2022 14:43-0400 Body weight 119.75 kg Talia Dias MD Work Phone: [facility] 07-19-2022 14:43-0400 Diastolic blood pressure 84 mm[Hg] Talia Dias MD Work Phone: [facility] 07-19-2022 14:43-0400 Heart rate 75 /min Talia Dias MD Work Phone: [facility] 07-19-2022 14:43-0400 Respiratory rate 18 /min Talia Dias MD Work Phone: [facility] 07-19-2022 14:43-0400 SaO2% (BldA) [Mass fraction] 97 % Talia Dias MD Work Phone: [facility] 07-19-2022 14:43-0400 Systolic blood pressure 138 mm[Hg] Talia Dias MD Work Phone: [facility] 06-01-2022 10:40-0500 Body weight 118.84 kg Joanna Older AIRCRAFT REFUELER.CARPET INSTALLER HELPER Work Phone: [facility] 06-01-2022 10:40-0500 Diastolic blood pressure 60 mm[Hg] Joanna Older AIRCRAFT REFUELER.CARPET INSTALLER HELPER Work Phone: [facility] 06-01-2022 10:40-0500 Heart rate 68 /min Joanna Older AIRCRAFT REFUELER.CARPET INSTALLER HELPER Work Phone: [facility] 06-01-2022 10:40-0500 Respiratory rate 20 /min Joanna Older AIRCRAFT REFUELER.CARPET INSTALLER HELPER Work Phone: [facility] 06-01-2022 10:40-0500 SaO2% (BldA) [Mass fraction] 98 % Joanna Older AIRCRAFT REFUELER.CARPET INSTALLER HELPER Work Phone: [facility] 06-01-2022 10:40-0500 Systolic blood pressure 114 mm[Hg] Joanna Older AIRCRAFT REFUELER.CARPET INSTALLER HELPER Work Phone: [facility] 04-11-2022 16:17-0500 Body weight 118.84 kg Jericho Tinoco MD Work Phone: [facility] 04-11-2022 16:17-0500 Diastolic blood pressure 64 mm[Hg] Jericho Tinoco MD Work Phone: [facility] 04-11-2022 16:17-0500 Heart rate 69 /min Jericho Tinoco MD Work Phone: [facility] 04-11-2022 16:17-0500 Respiratory rate 20 /min Jericho Tinoco MD Work Phone: [facility] 04-11-2022 16:17-0500 SaO2% (BldA) [Mass fraction] 98 % Jericho Tinoco MD Work Phone: [facility] 04-11-2022 16:17-0500 Systolic blood pressure 94 mm[Hg] Jericho Tinoco MD Work Phone: [facility] 03-08-2022 15:35-0400 Body temperature 98.42 [degF] ROBIN RIGGS MD [facility] 03-08-2022 15:35-0400 Diastolic blood pressure 82 mm[Hg] ROBIN RIGGS MD [facility] 03-08-2022 15:35-0400 Heart rate 82 /min ROBIN RIGGS MD [facility] 03-08-2022 15:35-0400 Respiratory rate 16 /min ROBIN RIGGS MD [facility] 03-08-2022 15:35-0400 Systolic blood pressure 154 mm[Hg] ROBIN RIGGS MD [facility] 03-01-2022 10:50-0400 Body weight 120.2 kg Jericho Tinoco MD Work Phone: [facility] 03-01-2022 10:50-0400 Diastolic blood pressure 76 mm[Hg] Jericho Tinoco MD Work Phone: [facility] 03-01-2022 10:50-0400 Heart rate 69 /min Jericho Tinoco MD Work Phone: [facility] 03-01-2022 10:50-0400 Respiratory rate 14 /min Jericho Tinoco MD Work Phone: [facility] 03-01-2022 10:50-0400 SaO2% (BldA) [Mass fraction] 98 % Jericho Tinoco MD Work Phone: [facility] 03-01-2022 10:50-0400 Systolic blood pressure 124 mm[Hg] Jericho Tinoco MD Work Phone: [facility] 01-18-2022 13:02-0400 Body height 156.2 cm Jamilah Memo PA-C Work Phone: [facility] 01-18-2022 13:02-0400 Body weight 121.56 kg Jamilah Memo PA-C Work Phone: [facility] 01-18-2022 13:02-0400 Diastolic blood pressure 68 mm[Hg] Jamilah Memo PA-C Work Phone: [facility] 01-18-2022 13:02-0400 Heart rate 62 /min Jamilah Memo PA-C Work Phone: [facility] 01-18-2022 13:02-0400 Respiratory rate 14 /min Jamilah Memo PA-C Work Phone: [facility] 01-18-2022 13:02-0400 SaO2% (BldA) [Mass fraction] 96 % Jamilah Memo PA-C Work Phone: [facility] 01-18-2022 13:02-0400 Systolic blood pressure 122 mm[Hg] Jamilah Memo PA-C Work Phone: [facility] 01-18-2022 12:46-0400 Body height 156.2 cm Respiratory Wstr Work Phone: [facility] 01-18-2022 12:46-0400 Body weight 121.97 kg Respiratory Wstr Work Phone: [facility] 01-18-2022 12:46-0400 Heart rate 62 /min Respiratory Wstr Work Phone: [facility] 01-18-2022 12:46-0400 Respiratory rate 14 /min Respiratory Wstr Work Phone: [facility] 01-18-2022 12:46-0400 SaO2% (BldA) [Mass fraction] 96 % Respiratory Wstr Work Phone: [facility] Encounters Encounter Date Encounter Type Care Provider Facility Start: 05-14-2023 End: 05-15-2023 ambulatory JERICHO TINOCO Facility:[facility] Start: 05-14-2023 End: 05-14-2023 Patient encounter procedure Seda Quiroz APRN.CARPET INSTALLER HELPER Work Phone: Psychiatry Procedures Date Procedure Procedure [...] Activity Detail Author Start: 09-03-2027 Colonoscopy COLONOSCOPY [facility] Start: 09-03-2027 COLORECTAL CANCER SCREENING COLORECTAL CANCER SCREENING [facility] Start: 09-03-2027 Screening for malign ant neoplasm of colon [facility] Start: 08-24-2025 Urine microalbumin profile [facility] Start: 04-12-2024 Glaucoma screening Dilated Retinal E xam [facility] Start: 03-15-2024 Mammography Mammogram Screening [facility] Start: 03-15-2024 Screening for malign ant neoplasm of breast Mammogram Screening [facility] Start: 03-06-2024 Annual PCP Team Stretcher Leveler Operator Helper regan Disease Visit Annual PCP Team Chronic Disease Visit [facility] Start: 03-06-2024 Creatinine measurement Serum Creatin ine [facility] Start: 03-06-2024 Hepatitis B screening Urine Al bumin:Creatinine Ratio [facility] Start: 03-06-2024 Serum Creatinine Serum Creatinine Cl [facility] Start: 11-03-2023 Influenza vaccination Influenza Vacc ine (#1) [facility] Immunizations Immunization Date Immunization Notes Care Provider Fa nestor 04-07-2019 influenza, injectabl e, quadrivalent, contains preservative Jamilah Memo PA-C Work Phone: [facility] 04-07-2019 influenza virus vacc ine, unspecified formulation Seda Quiroz APRN.CNP Work Phone: [facility] 02-04-2018 influenza, high dose seasonal, preservative-free Jamilah Memo PA-C Work Phone: [facility] Work Phone: 02-20-2017 influenza, injectabl e, quadrivalent, contains preservative Jamilah Memo PA-C Work Phone: [facility] 03-02-2016 influenza, injectabl e, quadrivalent, contains preservative Jamilah Memo PA-C Work Phone: [facility] 03-02-2016 pneumococcal polysaccharide vaccine, 23 valent Jamilah Memo PA-C Work Phone: [facility] 08-25-2015 tetanus toxoid, redu wayne diphtheria toxoid, and acellular pertussis vaccine, adsorbed Jamilah Galvan PA-C Work Phone: [facility] 05-26-2015 influenza, injectabl e, quadrivalent, contains preservative Jamilah Galvan PA-C Work Phone: [facility] Payers Date Payer Category Payer Medicaid [facility] [id number] 2015-Present [phone] [address] [place] [address] Medicaid [id number] 2015 Medicare [id number] 2015 Medicare [facility] [id number] 2015-Present [phone] [address] [place] [address] Medicare [id number] 2015 Unknown [id number] 1966 Unknown [id number] 1966 Unknown [id number] Social History Date Type Detail Facility Start: 1981 End: 07-19-2022 Tobacco smoking status NHIS Smokes tobacco daily [facility] Work Phone: Start: 1981 History of tobacco use Cigarette Smo ker [facility] Work Phone: Start: 12-16-2019 End: 09-20-2022 Cigarettes smoked current (pack per day) - Reported 1 [facility] Start: 12-16-2019 End: 07-19-2022 Tobacco use and exposure Smokeless tobacco non-user [facility] Work Phone: Start: 07-17-2021 End: 06-01-2022 Alcohol intake Current drinker of alcohol (finding) [facility] Start: 10-25-2020 History SDOH Alcohol Comment occasional, rarely [facility] Start: 02-22-2020 End: 08-27-2022 History SDOH Financial 5 [facility] Start: 02-22-2020 End: 08-27-2022 History SDOH Food Worry 1 [facility] Start: 02-22-2020 End: 08-27-2022 History SDOH Transport Med 2 [place] [facility] Start: 1965 Sex Assigned At Not on file C [facility] Start: 07-07-2021 End: 01-31-2022 Exposure to SARS-CoV-2 (event) Not sure [facility] Start: 12-02-2021 History SDOH Alcohol Comment rare 1 drink [facility] Start: 12-02-2021 End: 08-27-2022 History SDOH Physical Activity DPW 0 [facility] Start: 12-02-2021 End: 01-18-2022 Tobacco Comment from age 16 [facility] Start: 03-05-2019 Tobacco smoking status Heavy t obacco smoker (finding) [facility] Sex Assigned At Sex [facility] Start: 06-22-2022 End: 04-02-2023 Alcohol intake Ex-drinker (finding) [facility] Start: 07-19-2022 Tobacco Comment from age 16. O ne PPD in past. Cut to 1/2 PPD in April [facility] Start: 08-27-2022 History SDOH Social Connections Phone 3 [facility] Start: 08-27-2022 History SDOH Social Connections Living 8 [facility] Start: 08-27-2022 End: 09-20-2022 Social connection and isolation panel [facility] Do you belong to any clubs or organizations such as scientologist groups, unions, fraternal or athletic groups, or school groups? No [facility] Are you now , , , , never or living with a partner? Living with partner [facility] How often to you hav e a drink containing alcohol? Monthly or less [facility] How many standard dr inks containing alcohol do you have on a typical day? 1 or 2 [facility] How often do you hav e 6 or more drinks on 1 occasion? Never [facility] How hard is it for y ou to pay for the very basics like food, housing, medical care, and heating Not hard at all [facility] Do you feel stress - tense, restless, nervous, or anxious, or unable to sleep at night because your mind is troubled all the time - these days [OSQ] To some extent [facility] (I/We) worried wheth er (my/our) food would run out before (I/we) got money to buy more. Never true [facility] Medical Equipment Procedure Code Equipment Code Equipment Origin al Text Equipment Identifier Dates Spacer Avs 4d 8m m Spinal Bone Plug - [id number] Start: 05-30-2019 Charles Mix Drill Bit 12mm X 23mm [id number] Start: 05-30-2019 Self Starting Variable Screw Size 4.0mm X 14mm [id number] Start: 05-30-2019 Charles Mix Cervical P late 1-Level 22mm [id number] Start: 05-30-2019 Functional Status Date Assessment Result Facility 03-08-2022 Functional Status Standard Safet y ID band on, Call device within reach, Bed in low position, Wheels locked, Upper/Half-Length side-rails up, Bedside Cart Locked, Safety level maintained [facility] Mental Status Date Assessment Result Facility 03-08-2022 Mental Status Orientation Oriented x 4 [facility] Clinical Notes 01-25-2020 to 05-14-2023 Seda Quiroz APRN.CNP - 05/14/2023 9:02 AM Seda Quigley APRN.CNP - 04/02/2023 2:10 PM ESTTelephone Encounter - Michelle Sanchez LPN - 03/19/2023 2:57 PM ESTPatient Instructions Note Date & Type Note Facility 05-14-2023 Note HNO ID: [id number] Author: SEDA QUIROZ APRN.CNP Service: ? Author [...] really hard time sitting in the car. [facility] that the car was caving in on [...] myocardial infarction of lateral wall (HCC) 04/04/2022 [facility] Cerebellar mass 1995 mass versus infarct Cervical [...] 12/04/2021 Type 2 diabetes mellitus without complication ([facility]) 03/02/2016 PAST SURGICAL HISTORY Procedure Laterality Date ANTERIOR DISKECTOMY, CERVICAL, EACH ADDL 05/30/2019 ACDF C5-6 - anterior cervical discectomy and arthrodesis ARTHRP KNE CONDYLEANDPLATU MEDIALANDLAT COMPARTMENTS Left 01/14/2018 COLONOSCOPY AND BIOPSY 09/02/2017 Dr. cooney EGPhil 01/23/2021 KNEE ARTHROSCOP MENISCUS REPAIR MED/LAT Left 06/22/2016 partial medial meniscectomy LUMBAR OR CAUDAL EPIDURAL INJECTION 01/2017 multiple since 2014. NEUROPLASTY AND/TRANSPOS MEDIAN NRV CARPAL TUNNE Left 08/30/2009 [facility] PAST SURGICAL HISTORY OF 05/30/2019 C5-[address] Grace Long PT ED HEART AND VASCULAR Cardiac Stent [facility] 11/30/22 S PROBE PERC LUMBAR DISCECTOMY 04/2000 [facility] Current Outpatient Medications Medication Sig Dispense Refill [...] 3 escitalopram o (more content not included)... [facility] 05-14-2023 History of Presen t illness [...] really hard time sitting in the car. [facility] that the car was caving in on [...] myocardial infarction of lateral wall (HCC) 04/04/2022 [facility] Cerebellar mass 1995 mass versus infarct Cervical [...] 12/04/2021 Type 2 diabetes mellitus without complication ([facility]) 03/02/2016 PAST SURGICAL HISTORY Procedure Laterality Date ANTERIOR DISKECTOMY, CERVICAL, EACH ADDL 05/30/2019 ACDF C5-6 - anterior cervical discectomy and arthrodesis ARTHRP KNE CONDYLE&PLATU MEDIAL&LAT COMPARTMENTS Left 01/14/2018 COLONOSCOPY AND BIOPSY 09/02/2017 Dr. ivet HAGER 01/23/2021 KNEE ARTHROSCOP MENISCUS REPAIR MED/LAT Left 06/22/2016 partial medial meniscectomy LUMBAR OR CAUDAL EPIDURAL INJECTION 01/2017 multiple since 2014. NEUROPLASTY &/TRANSPOS MEDIAN NRV CARPAL TUNNE Left 08/30/2009 [facility] PAST SURGICAL HISTORY OF 05/30/2019 C5-[address] Grace Long PT ED HEART AND VASCULAR Cardiac Stent [facility] 04/04/22 S PROBE PERC LUMBAR DISCECTOMY 04/2000 [facility] Current Outpatient Medications Medication Sig Dispense Refill [...] REVIEWED: Psychiatric scales, Electronic medical record, and Station Engineer Main Line notes DIAGNOSIS: Bipolar disorder, currently depressed, moderate [...] which included preparing to see the patient, [id number] patient care, completing clinical documentation, obtaining and/or [...] TIME: 9:03 AM documented in this encounter [facility] 04-02-2023 Note HNO ID: [id number] Author: Seda Quiroz APRN.CNP Service: ? Author [...] struggling with shortness of breath. Saw her brusher machine and was notified that her lung function was normal. Has been following up with her tab builder. Had to take Nitro due to chest [...] Date Acute myocardial infarction of lateral wall ([facility]) 04/04/2022 [facility] Cerebellar mass 1995 mass versus infarct Cervical cord compression with myelopathy ([facility]) 05/28/2019 Depression 04/11/2015 Disc degeneration, lumbar 2000 [...] 12/04/2021 Type 2 diabetes mellitus without complication ([facility]) 03/02/2016 PAST SURGICAL HISTORY Procedure Laterality Date ANTERIOR DISKECTOMY, CERVICAL, EACH ADDL 05/30/2019 ACDF C5-6 - anterior cervical discectomy and arthrodesis ARTHRP KNE CONDYLEANDPLATU MEDIALANDLAT COMPARTMENTS Left 01/14/2018 COLONOSCOPY AND BIOPSY 09/02/2017 Dr. cooney EGD 01/23/2021 KNEE ARTHROSCOP MENISCUS REPAIR MED/LAT Left 06/22/2016 partial medial meniscectomy LUMBAR OR CAUDAL EPIDURAL INJECTION 01/2017 multiple since 2014. NEUROPLASTY AND/TRANSPOS MEDIAN NRV CARPAL TUNNE Left 08/30/2009 [facility] PAST SURGICAL HISTORY OF 05/30/2019 C5-[address] Grace Long PT ED HEART AND VASCULAR Cardiac Stent [facility] 04/04/22 S PROBE PERC LUMBAR DISCECTOMY 04/2000 [facility] Current Outpatient Medications Medication Sig Dispense Refill [...] 1 tablet by (more content not included)... [facility] 04-02-2023 History of Presen t illness [...] struggling with shortness of breath. Saw her brusher machine and was notified that her lung function was normal. Has been following up with her tab builder. Had to take Nitro due to chest [...] myocardial infarction of lateral wall (HCC) 04/04/2022 [facility] Cerebellar mass 1995 mass versus infarct Cervical [...] &/TRANSPOS MEDIAN NRV CARPAL TUNNE Left 08/30/2009 [facility] PAST SURGICAL HISTORY OF 05/30/2019 C5-[address] Grace Long PT ED HEART AND VASCULAR Cardiac Stent [facility] 04/04/22 S PROBE PERC LUMBAR DISCECTOMY 04/2000 [facility] Current Outpatient Medications Medication Sig Dispense Refill [...] which included preparing to see the patient, [id number] patient care, completing clinical documentation, obtaining and/or [...] TIME: 2:10 PM documented in this encounter [facility] 03-19-2023 Miscellaneous Notes Patient [...] for last apt. documented in this encounter [facility] 03-15-2023 Note HNO ID: [id number] Author: Marta Mosqueda RT(R) Service: ? Author [...] RT Arias(R) March 15, 2023 1:24 PM [facility] 03-11-2023 Miscellaneous Notes Patient has been [...] Gricelda Duckworth LPN. documented in this encounter [facility] 03-07-2023 Note HNO ID: [id number] Author: Aron Navarro Service: ? Author Type: [...] RTC in 3-4 months. Aron Navarro DPM [facility] 03-07-2023 Note HNO ID: [id number] Author: Pepper Estrada LPN Service: ? Author Type: LICENSED NURSE Type: Progress Notes Filed: 03/08/2023 10:31 PM Note Text: AMB ROOMING INTAKE FLOWSHEET DATA Patient presents with: Left Foot - Established Patient, Diabetic Foot Care Right Foot - Established Patient, Diabetic Foot Care Pepper Estrada LPN [facility] 03-06-2023 Note HNO ID: [id number] Author: Jericho Tinoco MD Service: ? Author Type: Physician Type: Progress Notes Filed: 03/06/2023 12:34 PM Note Text: This note was created using [facility]. Subjective Juan Eagle is a 58 year old female. She's been dealing with right wrist pain for about 2 months, with no injury. She reported taking up to 12 ibuprofen per day. Pain was worse with movement. Bracing helped some. X rays showed no acute findings. Her joints have been hurting more in general. 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 in [place], so had been off Humira for more [...] 3a Chronic Kidney Disease (Hcc) Mixed Hyperlipidemia Joes On Cpap Radiculopathy, Lumbar Region Postlaminectomy Syndrome Ddd (Degenerative Disc Disease), Lumbar Edema Class 3 Severe Obesity With Body Mass Index (Bmi) of 50.0 to 59.9 in Adult (Formerly [facility]) Persistent Headaches S/P Cervical Spinal Fusion Tobacco Use Disorder Moderate Persistent Asthma Without Complication Psoriatic Arthritis ([facility]) Irritable Bowel Syndrome With Diarrhea Stage 3a Chronic Kidney Disease ([facility]) Coronary Artery Disease Involving [place] Coronary Artery of [place] Heart Without Angina Pectoris St Elevation Myocardial Infarction Involving Left Circumflex Coronary Artery ([facility]) Ischemic Cardiomyopathy Encounter for Long-Term (Current) Use of Medications Bipolar Disorder ([facility]) Ptsd (Post-Traumatic Stress Disorder) Dyskinesia, Tardive Current [...] She is aler (more content not included)... [facility] 03-06-2023 History of Presen t illness Narrative This note was created using [employer]. Subjective Juan Eagle is a 58 year old female. She's been dealing with right wrist pain for about 2 months, with no injury. She reported taking up to 12 ibuprofen per day. Pain was worse with movement. Bracing helped some. X rays showed no acute findings. Her joints have been hurting more in general. 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 in [place], so had been off Humira for more [...] Mellitus With Stage 3a Chronic Kidney Disease ([facility]) Mixed Hyperlipidemia Jose On Cpap Radiculopathy, Lumbar Region Postlaminectomy Syndrome Ddd (Degenerative Disc Disease), Lumbar Edema Class 3 Severe Obesity With Body Mass Index (Bmi) of 50.0 to 59.9 in Adult ([facility]) Persistent Headaches S/P Cervical Spinal Fusion Tobacco Use Disorder Moderate Persistent Asthma Without Complication Psoriatic Arthritis ([facility]) Irritable Bowel Syndrome With Diarrhea Stage 3a Chronic Kidney Disease ([facility]) Coronary Artery Disease Involving [place] Coronary Artery of [place] Heart Without Angina Pectoris St Elevation Myocardial Infarction Involving Left Circumflex Coronary Artery ([facility]) Ischemic Cardiomyopathy Encounter for Long-Term (Current) Use of Medications Bipolar Disorder ([facility]) Ptsd (Post-Traumatic Stress Disorder) Dyskinesia, Tardive Current [...] Jericho Tinoco MD documented in this encounter [facility] 02-20-2023 Miscellaneous Notes Message to call office. Message to call office. Message to call office. Last: 01/15/2023 Noted-follow up 4 weeks 02/12/2023-cx'd by patient Covid exposure Next: NA documented in this encounter [facility] 01-21-2023 Note HNO ID: [id number] Author: Jamilah Galvan PA-C Service: ? Author Type: Physician Computer Technical Specialist Type: Progress Notes Filed: 01/21/2023 1:28 PM Note Text: Patient: Juan Eagle PCP: Jericho Tinoco MD CC: follow up HPI: Juan Eagle 57 year old morbidly obese female current 72-othf-ksrw smoker with PMH significant for GERD, HLD, JOSE on CPAP, DM2, DC in March 2022 coded 3 times s/p [...] all sleep. DME: Medical Service. Follow with [facility]. PAST MEDICAL HISTORY Diagnosis Date Acute myocardial infarction of lateral wall ([facility]) 04/04/2022 [facility] Cerebellar mass 1995 mass versus infarct Cervical cord compression with myelopathy ([facility]) 05/28/2019 Depression 04/11/2015 Disc degeneration, lumbar 2000 [...] region 12/05/2015 Stage 3b chronic kidney disease ([facility]) 12/04/2021 Type 2 diabetes mellitus without complication ([facility]) 03/02/2016 Allergies: Codeine Other: See Comments Comment: [...] PAST SURGICAL HISTOR (more content not included)... [facility] 01-21-2023 History of Presen t illness Narrative Images from the original note were not included. Patient: Juan Eagle PCP: Jericho Tinoco MD CC: follow up HPI: Juan Eagle 57 year old morbidly obese female current 44-bqkf-hbvn smoker with PMH significant for GERD, HLD, JOSE on CPAP, DM2, DC in March 2022 coded 3 times s/p [...] all sleep. DME: Medical Service. Follow with [facility]. PAST MEDICAL HISTORY Diagnosis Date Acute myocardial infarction of lateral wall (HCC) 04/04/2022 [facility] Cerebellar mass 1995 mass versus infarct Cervical [...] &/TRANSPOS MEDIAN NRV CARPAL TUNNE Left 08/30/2009 [facility] PAST SURGICAL HISTORY OF 05/30/2019 C5-[address] Grace Long PT ED HEART AND VASCULAR Cardiac Stent [facility] 04/04/22 S PROBE PERC LUMBAR DISCECTOMY 04/2000 [facility] I reviewed the past medical history, family [...] obstruction Imaging / Diagnostic Studies: CXR 03/2022 [facility] reviewed showing bilateral hazy opacities without pleural [...] Jamilah Galvan PA-C documented in this encounter [facility] 01-15-2023 Miscellaneous Notes Medication sent to [facility]. [facility] does have this medication in stock, Patient aware you will send there. [facility] calls to report that Ingrezza is a specialty medication and [facility] cannot get that med. Will need to try somewhere else. Elham Graves LPN documented in this encounter [facility] 01-15-2023 Note HNO ID: [id number] Author: Cassie Kendrick RT(R) Service: Radiology Author Type: Technologist Type: Progress Notes Filed: 01/15/2023 9:32 AM Note Text: Radiology Service Progress Note PATIENT NAME: Juan Eagel DATE OF SERVICE: January 15, 2023 TIME: [...] Kendrick RT(R) January 15, 2023 9:25 AM [facility] 01-15-2023 Note HNO ID: [id number] Author: Fidel Bazan APRN.CARPET INSTALLER HELPER Service: ? Author Type: Nurse Practitioner Type: [...] Date Acute myocardial infarction of lateral wall ([facility]) 04/04/2022 [facility] Cerebellar mass 1995 mass versus infarct Cervical cord compression with myelopathy ([facility]) 05/28/2019 Depression 04/11/2015 Disc degeneration, lumbar 2000 [...] 12/04/2021 Type 2 diabetes mellitus without complication ([facility]) 03/02/2016 PAST SURGICAL HISTORY Procedure Laterality Date ANTERIOR DISKECTOMY, CERVICAL, EACH ADDL 05/30/2019 ACDF C5-6 - anterior cervical discectomy and arthrodesis ARTHRP KNE CONDYLEANDPLATU MEDIALANDLAT COMPARTMENTS Left 01/14/2018 COLONOSCOPY AND BIOPSY 09/02/2017 Dr. ivet HAGER 01/23/2021 KNEE ARTHROSCOP MENISCUS REPAIR MED/LAT Left 06/22/2016 partial medial meniscectomy LUMBAR OR CAUDAL EPIDURAL INJECTION 01/2017 multiple since 2014. NEUROPLASTY AND/TRANSPOS MEDIAN NRV CARPAL TUNNE Left 08/30/2009 [facility] PAST SURGICAL HISTORY OF 05/30/2019 C5-[address] Grace Long PT ED HEART AND VASCULAR Cardiac Stent [facility] 04/04/22 S PROBE PERC LUMBAR DISCECTOMY 04/2000 [facility] ALLERGIES Codeine, Seroquel [Quetiapine], Vraylar [Cariprazine], Dilaudid [...] Hypertension Sister B (more content not included)... [facility] 01-15-2023 Note HNO ID: [id number] Author: Seda Quiroz APRN.CARPET INSTALLER HELPER Service: ? Author Type: Nurse Practitioner Type: [...] Ideations: No homicidal (more content not included)... [facility] 01-15-2023 Instructions Seda Quiroz, LEONELA.DAYANARA - 01/15/2023 9:08 AM EDT Aziza Pearson, It was good to talk with you today. Below is a summary of the plan that we discussed during your appointment for reference. Of course, if you have any questions or concerns do not hesitate to reach out to me via a message or call. Seda Reynoso APRN.CARPET INSTALLER HELPER PLAN AND FOLLOW UP: YOU SHOULD SEEK [...] - Call the National Suicide Hotline at 9-399-GPKPVYG ( ) or 1-469-152-TALK (8646) - Text 4HOPE to 049580 Medication Update: Lamictal 200 mg - take 1/2 tablet in the morning and 1 tablet in the evening. Ingrezza 40 mg - take 1 capsule every morning. Continue the rest of your psychiatric medications at the same dose. Next appointment: February 12 at 9:30 am in person -- You may call the department appointment line at [phone] to schedule your appointment. -- Please call my nurse Michelle at [phone] or send me a message in [employer] with any questions or concerns between appointments. documented in this encounter [facility] 01-15-2023 History of Presen [...] referral for the patient to contact in [place]. Follow up in 4 weeks. Medication Update: [...] which included preparing to see the patient, dzkx-tq-deus patient care, completing clinical documentation, and counseling and educating the patient/family/caregiver, ordering medications/labs. Seda Quiroz APRN.CARPET INSTALLER HELPER January 15, 2023 8:23 AM This note was partially generated using [employer] voice recognition system. Note was reviewed for accuracy. There may be minor misspellings or grammar miscues with [employer] voice recognition. documented in this encounter [facility] 12-04-2022 Note HNO ID: [id number] Author: Aron Navarro Service: ? Author Type: [...] Date Acute myocardial infarction of lateral wall ([facility]) 04/04/2022 [facility] Cerebellar mass 1995 mass versus infarct Cervical cord compression with myelopathy ([facility]) 05/28/2019 Depression 04/11/2015 Disc degeneration, lumbar 2000 [...] 12/04/2021 Type 2 diabetes mellitus without complication ([facility]) 03/02/2016 Current Outpatient Medications Medication Sig dulaglutide [...] AND/TRANSPOS MEDIAN NRV CARPAL TUNNE Left 08/30/2009 [facility] PAST SURGICAL HISTORY OF 05/30/2019 C5-[address] Grace Long PT ED HEART AND VASCULAR Cardiac Stent [facility] 04/04/22 S PROBE PERC LUMBAR DISCECTOMY 04/2000 [facility] FAM (more content not included)... [facility] 12-04-2022 Note HNO ID: [id number] Author: Pepper Estrada LPN Service: ? Author Type: LICENSED NURSE Type: Progress Notes Filed: 12/05/2022 6:45 AM Note Text: AMB ROOMING INTAKE FLOWSHEET DATA Patient presents with: Left Foot - Established Patient, Diabetic Foot Care Right Foot - Established Patient, Diabetic Foot Care Pepper Estrada LPN [facility] 12-04-2022 Instructions Aron Navarro - 12/04/2022 [...] (or decreased sensation in your feet) a hand packager should always cut your toenails. Be Careful [...] Go to your health care provider or hand packager to treat these conditions. documented in this encounter [facility] 12-04-2022 History of Presen [...] myocardial infarction of lateral wall (HCC) 04/04/2022 [facility] Cerebellar mass 1995 mass versus infarct Cervical [...] &/TRANSPOS MEDIAN NRV CARPAL TUNNE Left 08/30/2009 [facility] PAST SURGICAL HISTORY OF 05/30/2019 C5-[address] Grace Long PT ED HEART AND VASCULAR Cardiac Stent [facility] 04/04/22 S PROBE PERC LUMBAR DISCECTOMY 04/2000 [facility] FAMILY HISTORY Problem Relation Age of Onset [...] Objective: Patient presents to clinic ambulating in community hospital Constitutional: Pt is a well developed [...] with diabetes mellitus due to underlying condition ([facility]) (primary encounter diagnosis) (L84) Callus of foot [...] Pepper Estrada LPN documented in this encounter [facility] 11-16-2022 Miscellaneous Notes Letter [...] a letter and it needs faxed to [phone]. Sofi Carrion RN documented in this encounter [facility] 11-07-2022 Note Patient Outreach (IN [facility]) JUAN EAGLE ([id number]) 1965 F CHT Date Time Provider Department [...] Date Reviewed: 08/28/2022 Reviewed by: Joanna Arce APRN.CARPET INSTALLER HELPER - Fully Assessed Visit Diagnosis:Encounter for screening mammogram for breast cancer [Z12.31] Order(s):[facility] SCREENING [[id number]] Order #: [id number] FUTURE Prescriptions as of 11/12/2022 - dulaglutide [...] (HCC) [N18.31] 12/04/2021 Coronary artery disease involving [place] andre*04/11/2022 ST elevation myocardial infarction involving le*04/11/2022 Ventricular fibrillation (HCC) [I49.01] 04/11/2022 08/28/2022 Ischemic cardiomyopathy [I25.5] 04/11/2022 Encounter for long-term (current) use of medica*07/01/2022 Bipolar disorder (HCC) [F31.9] 07/01/2022 PTSD (post-traumatic stress disorder) [F43.10] 07/01/2022 Dys (more content not included)... [facility] 09-20-2022 Note HNO ID: [id number] Author: Seda Quiroz APRN.CARPET INSTALLER HELPER Service: ? Author Type: Nurse Practitioner Type: [...] visit. Either the patient or their legal field representative/health education has been informed of the risks and [...] which included preparing to see the patient, igzl-ci-yuax patient care, completing clinical documentation, and counseling and educating the patient/family/caregiver, ordering medications/labs. Seda Quiroz APRN.CNP September 20, 2022 10:20 AM This note was partially generated using [employer] voice recognition system. Note was reviewed for accuracy. There may be minor misspellings or grammar miscu (more content not included)... [facility] 08-29-2022 Miscellaneous Notes Below results left on identified vm. Gricelda Duckworth LPN ----- Message from Joanna Arce APRN.CNP sent at 08/29/2022 8:41 AM EDT ----- Please let the patient know HgbA1c was 5.7, diabetes well controlled. Kidney function stable. The rest of her labs were within acceptable limits documented in this encounter [facility] 08-28-2022 Note HNO ID: [id number] Author: Joanna Arce APRN.CNP Service: ? Author [...] Date Acute myocardial infarction of lateral wall ([facility]) 04/04/2022 [facility] Cerebellar mass 1995 mass versus infarct Cervical cord compression with myelopathy ([facility]) 05/28/2019 Depression 04/11/2015 Disc degeneration, lumbar 2000 [...] 12/04/2021 Type 2 diabetes mellitus without complication ([facility]) 03/02/2016 PAST SURGICAL HISTORY Procedure Laterality Date ANTERIOR DISKECTOMY, CERVICAL, EACH ADDL 05/30/2019 ACDF C5-6 - anterior cervical discectomy and arthrodesis ARTHRP KNE CONDYLEANDPLATU MEDIALANDLAT COMPARTMENTS Left 01/14/2018 COLONOSCOPY AND BIOPSY 09/02/2017 Dr. cooney EGD 01/23/2021 KNEE ARTHROSCOP MENISCUS REPAIR MED/LAT Left 06/22/2016 partial medial meniscectomy LUMBAR OR CAUDAL EPIDURAL INJECTION 01/2017 multiple since 2014. NEUROPLASTY AND/TRANSPOS MEDIAN NRV CARPAL TUNNE Left 08/30/2009 [facility] PAST SURGICAL HISTORY OF 05/30/2019 C5-[address] Grace Long PT ED HEART AND VASCULAR Cardiac Stent [facility] 04/04/22 S PROBE PERC LUMBAR DISCECTOMY 04/2000 [facility] ALLERGIES Codeine, Seroquel [Quetiapine], Vraylar [Cariprazine], Dilaudid [...] Inhalation as instruct (more content not included)... [facility] 08-23-2022 Note HNO ID: [id number] Author: Seda Quiroz APRN.CARPET INSTALLER HELPER Service: ? Author Type: Nurse Practitioner Type: [...] visit. Either the patient or their legal field representative/health education has been informed of the risks and [...] and Lamictal at the same dose. 3. Behavioral Psychologist Dr. Savage consulted about restarting benzodiazepines. He [...] intent or plan (more content not included)... [facility] 08-23-2022 Instructions Seda Quiroz APRN.CNP - [...] - Call the National Suicide Hotline at 3-136-HEWQPDC ( ) or 6-140-974-TALK (7939) - Text 4HOPE to 990936 Medication Update: Lamictal 200 mg - take 1 tablet once daily. Continue the other psychiatric medications at the same dose. Next appointment: September 20 at 10:30 am Virtual -- Please call my nurse Michelle at [phone] or send me a message in [employer] with any questions or concerns between appointments. documented in this encounter [facility] 08-23-2022 History of Presen [...] visit. Either the patient or their legal field representative/health education has been informed of the risks and [...] and Lamictal at the same dose. 3. Behavioral Psychologist Dr. Savage consulted about restarting benzodiazepines. He [...] which included preparing to see the patient, eqnd-zo-giot patient care, completing clinical documentation, and counseling and educating the patient/family/caregiver, ordering medications/labs. Seda Quiroz APRN.CNP August 23, 2022 8:03 AM This note was partially generated using [employer] voice recognition system. Note was reviewed for accuracy. There may be minor misspellings or grammar miscues with Dragon voice recognition. documented in this encounter [facility] 07-20-2022 Note HNO ID: [id number] Author: FLASH Caceres Service: ? Author Type: Respiratory Therapist Type: Progress Notes Filed: 07/20/2022 3:28 PM Note Text: PULM FUNCTION SMARTBLOCK: Provider: Talia Dias MD Assisting Tech: FLASH Caceres Spirometry: 1 [facility] 07-20-2022 History of Presen t illness Narrative PULM FUNCTION SMARTBLOCK: Provider: Talia Dias MD Assisting Tech: FLASH Caceres Spirometry: 1 documented in this encounter [facility] 07-19-2022 Note HNO ID: [id number] Author: Talia Dias MD Service: ? Author Type: Physician Type: Progress Notes Filed: 07/19/2022 4:06 PM Note Text: . [facility] [place] Note Patient name: Juan Eagle PCP: Jericho Tinoco MD CC: Shortness of breath HPI: Juan Eagle 57 year old morbidly obese female current 48-spvg-iczc smoker with PMH significant for GERD, HLD, JOSE on CPAP, DM2, psoriatic arthritis and asthma, former patient of Dr. Christensen, new to me. Current therapy consists of Breo Ellipta and as needed albuterol. No issues with her Breo Ellipta. Has had relatively good control of her asthma until recently. Status post DC at the end of March, coded 3 [...] eosinophilia Imaging / Diagnostic Studies: CXR 03/2022 [facility] reviewed showing bilateral hazy opacities without pleural effusions consistent with pulmonary edema Echocardiogram with ejection fraction 60%, grade 3 diastolic dysfunction and mild pulmonary hypertension PAST MEDICAL HISTORY Diagnosis Date Acute myocardial infarction of lateral wall ([facility]) 04/04/2022 [facility] Cerebellar mass 1995 mass versus infarct Cervical cord compression with myelopathy ([facility]) 05/28/2019 Depression 04/11/2015 Disc degeneration, lumbar 2000 [...] region 12/05/2015 Stage 3b chronic kidney disease ([facility]) 12/04/2021 Type 2 diabetes mellitus without complication ([facility]) 03/02/2016 ALLERGIES Allergen Reactions Codeine Other: See [...] once daily. albuterol (more content not included)... [facility] 07-19-2022 History of Presen t illness Narrative Images from the original note were not included. . [facility] [place] Note Patient name: Juan Eagle PCP: Jericho Tinoco MD CC: Shortness of breath HPI: Juan Eagle 57 year old morbidly obese female current 61-yzyy-wjzv smoker with PMH significant for GERD, HLD, JOSE on CPAP, DM2, psoriatic arthritis and asthma, former patient of Dr. Christensen, new to me. Current therapy consists of Breo Ellipta and as needed albuterol. No issues with her Breo Ellipta. Has had relatively good control of her asthma until recently. Status post DC at the end of March, coded 3 [...] eosinophilia Imaging / Diagnostic Studies: CXR 03/2022 [facility] reviewed showing bilateral hazy opacities without pleural effusions consistent with pulmonary edema Echocardiogram with ejection fraction 60%, grade 3 diastolic dysfunction and mild pulmonary hypertension PAST MEDICAL HISTORY Diagnosis Date Acute myocardial infarction of lateral wall (HCC) 04/04/2022 [facility] Cerebellar mass 1995 mass versus infarct Cervical [...] &/TRANSPOS MEDIAN NRV CARPAL TUNNE Left 08/30/2009 [facility] PAST SURGICAL HISTORY OF 05/30/2019 C5-[address] Grace Long PT ED HEART AND VASCULAR Cardiac Stent [facility] 04/04/22 S PROBE PERC LUMBAR DISCECTOMY 04/2000 [facility] PMH, Social history, family history and surgical [...] poor control of asthma 4. Cigarette smoker -67-uppa-xwxz smoker without sequelae of COPD -Smoking cessation recommended -PCP already referred patient to lung cancer screening clinic Talia Dias MD [facility] [place] documented in this encounter [facility] 06-28-2022 Miscellaneous Notes Amitriptyline [...] Jamilah Gotti Pss documented in this encounter [facility] 06-28-2022 Miscellaneous Notes Pt called in stating she could not refill her Breo inhaler d/t pharmacy did not have refill orders. Call to [facility] to verify our order states 11 refills. Agnes, at [facility] states they are in the process of refilling Rx for pt and not sure where the miscommunication happened and states there are plenty of refills for pt. Returned call to pt to notify M with detailed message. documented in this encounter [facility] 06-22-2022 Miscellaneous Notes Nurse from [facility] did not contact patient. Patient is returning a call she received from nurse Loaiza. Please contact the patient again. documented in this encounter [facility] 06-22-2022 Note HNO ID: [id number] Author: Seda Quiroz APRN.CARPET INSTALLER HELPER Service: ? Author Type: Nurse Practitioner Type: [...] she was in the car driving to [place]. She continues to take Lexapro and Lamictal. [...] Vrylar (TD). She was on the [employer] [place] that it helped with TD for the [...] AND/TRANSPOS MEDIAN NRV CARPAL TUNNE Left 08/30/2009 [facility] PAST SURGICAL HISTORY OF 05/30/2019 C5-[address] Grace Long S PROBE PERC LUMBAR DISCECTOMY 04/2000 [facility] Current Outpatie (more content not included)... [facility] 06-22-2022 Instructions Seda Quiroz APRN.DAYANARA - 06/22/2022 9:34 AM EST Aziza Pearson, It was good to meet and talk with you today. Below is a summary of the plan that we discussed during your appointment for reference. Of course, if you have any questions or concerns do not hesitate to reach out to me via a message or call. Best, Seda Quiroz APRN.CARPET INSTALLER HELPER PLAN AND FOLLOW UP: YOU SHOULD SEEK [...] - Call the National Suicide Hotline at 7-921-RDBTMWJ ( ) or 9-658-807-TALK (7363) - Text 0NNWN to 336422 Medication Update: - Restart Ambien 10 mg - take 1 tablet at bedtime to help with sleep. - Continue Lexapro and Lamictal at the same dose. Other: I left a message with your Behavioral Psychologist's nurse Disha. She will fax over the latest EKG results from May so you don't have to do the EKG. She will call me back after speaking with Dr. Savage about the medications. Next appointment: --Schedule in 3 to 4 weeks or sooner if needed -- You may call the department appointment line at [phone] to schedule your appointment. -- Please call my nurse Michelle at [phone] or send me a message in Bookmycab with any questions or concerns between appointments. documented in this encounter [facility] 06-22-2022 History of Presen [...] she was in the car driving to [place]. She continues to take Lexapro and Lamictal. [...] Vrylar (TD). She was on the [employer]. [facility] that it helped with TD for the [...] &/TRANSPOS MEDIAN NRV CARPAL TUNNE Left 08/30/2009 [facility] PAST SURGICAL HISTORY OF 05/30/2019 C5-[address] Grace Long S PROBE PERC LUMBAR DISCECTOMY 04/2000 [facility] Current Outpatient Medications Medication Sig Dispense Refill [...] Previously followed by Jason Mendoza at the [facility] Therapist: Previously saw a therapist at the counseling center but they reported that she had graduated from it. Last engaged in therapy 4 years ago. Current Gas Main Fitter: No Last Hospitalization: None ECT: No Previous [...] use or dependence SPIRITUALITY: Cyndi [facility]: Juan Eagle is the 2nd of 5 siblings. The patient was born and raised in [place], [place]. She completed High school, Technical. She [...] and Lamictal at the same dose. 3. Behavioral Psychologist Dr. Savage consulted about restarting benzodiazepines. He [...] which included preparing to see the patient, [id number] patient care, completing clinical documentation, obtaining and/or [...] AM PAGER : documented in this encounter [facility] 06-01-2022 Note HNO ID: [id number] Author: Joanna Arce APRN.CNP Service: ? Author [...] AND/TRANSPOS MEDIAN NRV CARPAL TUNNE Left 08/30/2009 [facility] PAST SURGICAL HISTORY OF 05/30/2019 C5-[address] Grace Long S PROBE PERC LUMBAR DISCECTOMY 04/2000 [facility] ALLERGIES Codeine, Seroquel [Quetiapine], Vraylar [Cariprazine], Dilaudid [...] daily. Per Counseling (more content not included)... [facility] 06-01-2022 History of Presen t illness [...] &/TRANSPOS MEDIAN NRV CARPAL TUNNE Left 08/30/2009 [facility] PAST SURGICAL HISTORY OF 05/30/2019 C5-[address] Grace Long S PROBE PERC LUMBAR DISCECTOMY 04/2000 [facility] ALLERGIES Codeine, Seroquel [Quetiapine], Vraylar [Cariprazine], Dilaudid [...] psychiatrist. She is interested in seeing F machine container washer. - CONSULT TO PSYCHIATRY 2. Insomnia, unspecified type - ICD9: 780.52, ICD10: G47.00 See above. Increase Elavil to 50 mg at bedtime 3. Panic anxiety syndrome - ICD9: 300.01, ICD10: F41.0 See above. 4. Coronary artery disease involving [place] coronary artery of [place] heart without angina pectoris - ICD9: 414.01, [...] Joanna Arce APRN.CNP documented in this encounter [facility] 04-12-2022 Miscellaneous Notes After appt 04/11/22 pcp is asking for med profile [facility] Called [facility]. They are not able to do this. Pt will need to come to their store and request this. Message left to pt with this info Called [facility]. Message left with same request. documented in this encounter [facility] 04-11-2022 History of Presen t illness Narrative This note was created using [employer]. Subjective Transitional Care Management Progress Note The patients TCM visit was performed within the 7 days of discharge. Patient's Date of discharge: 04/06/2022 Date of initial coordinator contact after discharge: 04/09/2022 Discharge diagnosis: Acute DC. Cardiac arrest. Medication review completed Yes Jericho [...] Kidney Disease (Hcc) Coronary Artery Disease Involving [place] Coronary Artery of [place] Heart Without Angina Pectoris St Elevation Myocardial [...] &/TRANSPOS MEDIAN NRV CARPAL TUNNE Left 08/30/2009 [facility] PAST SURGICAL HISTORY OF 05/30/2019 C5-[address] Grace Long S PROBE PERC LUMBAR DISCECTOMY 04/2000 [facility] Social History Tobacco Use Smoking status: Every [...] I49.01 - In the setting of acute DC. 3. Coronary artery disease involving [place] coronary artery of [place] heart without angina pectoris - ICD9: 414.01, [...] Jericho Tinoco MD documented in this encounter [facility] documented as of this encounter (statuses as of 08/29/2022) [facility] History of Past illness [...] of this encounter (statuses as of 11/12/2022) [facility] History of Past illness [...] of this encounter (statuses as of 11/16/2022) [facility] History of Past illness [...] of this encounter (statuses as of 12/05/2022) [facility] History of Past illness [...] of this encounter (statuses as of 01/15/2023) [facility] History of Past illness [...] of this encounter (statuses as of 01/15/2023) [facility] History of Past illness [...] of this encounter (statuses as of 01/21/2023) [facility] History of Past illness [...] of this encounter (statuses as of 02/09/2023) [facility] History of Past illness [...] of this encounter (statuses as of 02/13/2023) [facility] History of Past illness [...] of this encounter (statuses as of 02/20/2023) [facility] History of Past illness [...] of this encounter (statuses as of 03/06/2023) [facility] History of Past illness [...] of this encounter (statuses as of 03/12/2023) [facility] History of Past illness [...] of this encounter (statuses as of 03/20/2023) [facility] History of Past illness [...] of this encounter (statuses as of 04/08/2023) [facility] History of Past illness [...] of this encounter (statuses as of 05/20/2023) [facility] History of Present illness Narrative* Brigette Fregoso LPN - 04/09/2022 3:16 PM EST TRANSITION CARE MANAGEMENT (TCM) INITIAL CONTACT Customer Service Rep Outreach Provider Action/FYI: Apt has been scheduled Initial contact with patient post discharge, spoke to patient. Patient identified by name and . TRANSITION CARE MANAGEMENT INITIAL OUTREACH DOCUMENTATION: Date of Outreach: 04/09/2022 Outreach Attempt 1: Contact Made Date of Discharge 04/06/2022 Some recent data might be hidden SUMMARY: -Pt discharged from [facility] on 04/06/22. -Admitted for: heart attack Do [...] home? Yes Medical records from recent hospitalization: [facility] has records if not received [facility] Hospital Discharge instructions Patient [...] leg Difficulty speaking, swallowing or walking Seizure [id number] [employer] [place] [address], [place] [address]. All rights reserved. This information is not intended as a substitute for professional medical care. Always follow yourhealthcare professional's instructions. Follow Up Care 03/08/2022 15:34:05 With:JERICHO TINOCO MD Address: [address] [place] [address]- When:2-4 days [facility] 11-03-2022 Emergency department Discharge summary Discharge Instructions Thank you for allowing [facility] to assist you with your healthcare needs. The following is importantdischarge information regarding your hospital visit. Diagnosis from Today's Visit Shingles Rash What to Do Next Instructions from Your Care Team No qualifying data available. Post Acute Orders No qualifying data available. You Need to Schedule the Following Appointments Follow Up with JERICHO TINOCO MD When Within 2-4 days Where: [address] [place], [place] [id number]- Allergies Dilaudid Percocet 5/325 SEROquel codeine traMADol [...] Duration: 7 Days Printed Prescription Changed acetaminophen-hydrocodone ([place] 325- 5 mg oral tablet) 1 tab(s) by mouth Two (2) times a day Changed acetaminophen-hydrocodone ([place] 325- 5 mg oral tablet) 1 tab(s) [...] leg Difficulty speaking, swallowing or walking Seizure [id number] [employer] [address] [place], [place] [id number]. All rights reserved. This information is not intended as a substitute for professional medical care. Always follow yourhealthcare professional's instructions. Additional Information VACCINATE! IT SAVES LIVES! Members of the community who have not yet received the COVID-19 vaccine and would like to receive it can visit one of [facility] vaccine clinics. There are many vaccine clinic locations within the [facility]. For locations and available times, please visit [email or web address]. It is important to note that some COVID mobile vaccine clinics are held outdoors and may be canceled in rainy orstormy conditions. To learn more about pediatric vaccinations (ages 5-11), we invite you to visit the [facility] webpage. [email or web address] learn more about the COVID-19 vaccine, we invite you to visit the [facility] website for a list of frequently asked questions. [email or web address] [facility] ([employer]) Patient Portal Access Instructions: Stay connected with your healthcare team and access your personal medical information anytime with the [facility] Patient Portal. If you would like a full copy of your medical records please contact the [facility] Medical Records Department Saturday through Saturday between 8a.m. and 4:30p.m. Please follow the directions below to access the portal: 1.Access the email account you provided upon registration to the [facility].2.Look for an invitation email from [facility].3.Open the email and access the invitation link: Accept Invitation to [facility] ([employer])4.Fill in the required alamo to create your account. Sign into www.[employer] with your username and password that [...] you will allow to register on the [facility] Patient Portal for access to your information. You can also access the [facility] Patient Portal on the Fan[employer] dasha. Simply click on Health Records under Interviewstreet and then click on the [employer] logo. HOW TO SAFELY DISPOSE OF PRESCRIPTION [...] Call your local pharmacy or go to [email or web address] to find one close to you.3.Make use of household items: Use cat litter or old coffee grounds to dispose medications if other options arenot available. Mix your drugs with these household products, seal them in an airtight container andthrow it into the garbage. Call [facility]: [phone] to be sure your drugs can be [...] aware that I should contact my doctor. 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: Date/Time: Relationship to Patient: Witness Name/Signature: Date/Time: [facility]10-27-2022 History of Present illness Narrative [...] intervention Jericho Tinoco MD [facility] Evaluation note* Diagnosis Type [...] obesity type (HCC) documented in this encounter [facility]10-21-2022 Miscellaneous Notes* Telephone Encounter - Jericho Tinoco MD - 02/23/2022 1:08 PM EDT documented in this encounterLouis [facility] Nurse Note* Peggy Diaz LPN - 01/18/2022 1:01 PM EDT Intake information documented in the prior visit with FLASH Caceres today. documented in this encounterLouis [facility] Procedure note* FLASH Caceres [...] 2022 TIME: 12:58 PM documented in this encounterLouis [facility] History of Present illness Narrative* FLASH Caceres - 01/18/2022 12:45 PM EDT PULM FUNCTION SMARTBLOCK: Provider: Jamilah Galvan PA-C Assisting Tech: FLASH Caceres Spirometry: 1 Exhaled Nitric Oxide: 1 documented in this encounterLouis [facility] History of Present illness Narrative* Jamilah Galvan PA-C - 01/18/2022 12:45 PM EDT [facility] Respiratory [place], 01/18/2022: Name: Juan Eagle : 1965 The [...] FEF75 (L/sec) 0.69 0.28 1.54 0.92 133 IHI52-59 (L/sec) 2.32 1.24 3.74 2.57 110 PEF [...] answers. Jamilah Galvan PA-C documented in this encounterLouis [facility]22 Miscellaneous Notes* Telephone Encounter - Gricelda Duckworth LPN - 12/04/2021 5:02 PM EDT Below left referral on identified vm. Faxed referral to [facility] scheduling. Gricelda Duckworth LPN * Telephone Encounter [...] is calling asking for a referral to [facility] dietitian. She is wanting directions on what to eatand not to eat with the dx of 3rd stage renal failure. documented in this encounterLouis [facility] Miscellaneous Notes* Telephone Encounter - Brigette Linares - 07/21/2021 11:21 AM EDT Patient electronically requesting refills as follows: Pending Prescriptions Disp Refills LANSOPRAZOLE 30 MG CAPSULE,DELAYED RELEASE 90 capsule 3 Sig: Take 1 capsule by mouth once daily. AURY: No Please review and advise. Brigette Linares documented in this encounterLouis [facility]09[facility] History of Past illness [...] of this encounter (statuses as of 12/04/2021) [facility] History of Past illness [...] of this encounter (statuses as of 12/04/2021) [facility] History of Past illness [...] of this encounter (statuses as of 01/18/2022) [facility] History of Past illness [...] of this encounter (statuses as of 01/18/2022) [facility] History of Past illness [...] of this encounter (statuses as of 02/23/2022) [facility] History of Past illness [...] of this encounter (statuses as of 03/01/2022) [facility] History of Past illness [...] of this encounter (statuses as of 04/12/2022) [facility] History of Past illness [...] of this encounter (statuses as of 04/12/2022) [facility] History of Past illness [...] of this encounter (statuses as of 04/13/2022) [facility] History of Past illness [...] of this encounter (statuses as of 06/01/2022) [facility] History of Past illness [...] of this encounter (statuses as of 06/22/2022) [facility] History of Past illness [...] of this encounter (statuses as of 06/28/2022) [facility] History of Past illness [...] of this encounter (statuses as of 07/01/2022) [facility] History of Past illness [...] of this encounter (statuses as of 07/01/2022) [facility] History of Past illness [...] of this encounter (statuses as of 07/19/2022) [address]21-2021 History of Past illness Narrative* Problem [...] of this encounter (statuses as of 07/20/2022) [facility] History of Past illness [...] of this encounter (statuses as of 08/23/2022) [facility] History of Past illness Narrative* Problem Noted Date Resolved Date BMI 45.0-49.9, adult 01/25/2020 03/20/2021 Thumb tendonitis 01/20/2016 02/20/2017 Osteoarthritis of lumbar spine 12/05/2015 1 Depression 04/11/2015 08/10/2017 Low back pain 04/11/2015 02/20/2017 Gastroesophageal reflux disease without esophagi tis 04/11/2015 12/16/2019 documented as of this encounter (statuses as of 07/24/2021) [facility] of Past illness Narrative* Problem Noted Date Resolved Date BMI 45.0-49.9, adult 01/25/2020 03/20/2021 Thumb tendonitis 01/20/2016 02/20/2017 Osteoarthritis of lumbar spine 12/05/2015 1 Depression 04/11/2015 08/10/2017 Low back pain 04/11/2015 02/20/2017 Gastroesophageal reflux disease without esophagi tis 04/11/2015 12/16/2019 documented as of this encounter (statuses as of 09/01/2021) [facility] + Plan note No data available for this section [facility] Evaluation note* Diagnosis Gastroesophageal reflux disease without esophagitis Esophageal reflux documented in this encounter [facility] note* Diagnosis Type 2 diabetes mellitus without complication (HCC) Type II or unspecified type diabetes mellitus without mention of complication, not stated as uncontrolled documented in this encounter [facility] note* Diagnosis Stage 3b chronic kidney disease (HCC)- Primary documented in this encounter [facility] note* Diagnosis Stage 3b chronic kidney disease (HCC)- Primary Type 2 diabetes mellitus without complication, without long-term current use of insulin ([facility]) documented in this encounter [facility] note* Diagnosis Moderate persistent asthma without complication Unspecified asthma documented in this encounter [facility] note* Diagnosis Moderate persistent asthma without complication Unspecified asthma documented in this encounter [facility] note* Diagnosis Moderate persistent asthma without complication- Primary Unspecified asthma Gastroesophageal reflux disease without esophagitis Esophageal reflux Tobacco use disorder JOSE (obstructive sleep apnea) Obstructive sleep apnea (adult) (pediatric) documented in this encounter [facility] note* Diagnosis Stage 3b chronic kidney disease (HCC)- Primary Panic anxiety syndrome Panic disorder without agoraphobia documented in this encounter [facility] note* Diagnosis ST elevation myocardial infarction involving left circumflex coronary artery ([facility])- Primary Acute myocardial infarction of other specified sites, initial episode of care Ventricular fibrillation (HCC) Ventricular fibrillation Coronary artery disease involving [place] coronary artery of [place] heart without angina pectoris Ischemic cardiomyopathy Other specified forms of chronic ischemic heart disease Mixed hyperlipidemia Type 2 diabetes mellitus with stage 3a chronic kidney disease, without long-term current use of insulin ([facility]) [facility] disorder [facility] Bipolar affective disorder, remission status unspecified ([facility])- Primary Insomnia, unspecified type Panic anxiety syndrome Panic disorder without agoraphobia Coronary artery disease involving [place] coronary artery of [place] heart without angina pectoris Persistent headaches Headache Type 2 diabetes mellitus with stage 3a chronic kidney disease, without long-term current use of insulin ([facility]) Morbid obesity with BMI of 45.0-49.9, adult ([facility]) Morbid obesity Psoriatic arthritis (HCC) Psoriatic arthropathy [facility]* Diagnosis Persistent headaches Headache Gastroesophageal reflux disease without esophagitis Esophageal reflux [facility]* Diagnosis Encounter for long-term (current) use of medications- Primary Encounter for long-term (current) use of other medications Bipolar affective disorder, remission status unspecified ([facility]) PTSD (post-traumatic stress disorder) Posttraumatic stress disorder Panic disorder with agoraphobia Agoraphobia with panic disorder Dyskinesia, tardive Subacute dyskinesia due to drugs [facility]* Diagnosis SOB (shortness of breath)- Primary Shortness of breath Mild intermittent asthma without complication Unspecified asthma Morbid obesity (HCC) Morbid obesity Cigarette smoker Tobacco use disorder [facility]* Diagnosis SOB (shortness of breath) Shortness of breath [facility]* Diagnosis PTSD (post-traumatic stress disorder)- Primary Posttraumatic stress disorder Panic disorder with agoraphobia Agoraphobia with panic disorder Dyskinesia, tardive Subacute dyskinesia due to drugs Bipolar affective disorder, currently depressed, moderate ([facility]) Bipolar I disorder, most recent episode (or current) depressed, moderate [facility]* Diagnosis Encounter for screening mammogram for breast cancer documented in this encounter [facility]* Diagnosis Diabetic mononeuropathy associated with diabetes mellitus due to underlying condition ([facility])- Primary Callus of foot Corns and callosities Ingrowing toenail Ingrowing nail Onychomycosis Dermatophytosis of nail Pain in toe of left foot Pain in limb Pain in toe of right foot Pain in limb Diminished pulses in lower extremity Other symptoms involving cardiovascular system documented in this encounter [facility]* Diagnosis Bipolar affective disorder, currently depressed, moderate ([facility])- Primary Bipolar I disorder, most recent episode (or current) depressed, moderate Dyskinesia, tardive Subacute dyskinesia due to drugs Panic disorder with agoraphobia Agoraphobia with panic disorder PTSD (post-traumatic stress disorder) Posttraumatic stress disorder [facility]* Diagnosis Moderate persistent asthma without complication- Primary Unspecified asthma Morbid obesity (HCC) Morbid obesity Gastroesophageal reflux disease without esophagitis Esophageal reflux Cigarette smoker Tobacco use disorder [facility]* Diagnosis Panic disorder with agoraphobia Agoraphobia with panic disorder Dyskinesia, tardive Subacute dyskinesia due to drugs [facility]* Diagnosis Wrist pain, right- Primary Pain in joint, forearm Psoriatic arthritis (HCC) Psoriatic arthropathy Type 2 diabetes mellitus with stage 3a chronic kidney disease, without long-term current use of insulin ([facility]) [facility]* Diagnosis Persistent headaches Headache documented in this encounter [facility] note* Diagnosis Dyskinesia, tardive- Primary Subacute dyskinesia due to drugs Bipolar affective disorder, currently depressed, moderate (HCC) Bipolar I disorder, most recent episode (or current) depressed, moderate Panic disorder with agoraphobia Agoraphobia with panic disorder PTSD (post-traumatic stress disorder) Posttraumatic stress disorder documented in this encounter [facility] note* Diagnosis Bipolar affective disorder, currently depressed, moderate (HCC)- Primary Bipolar I disorder, most recent episode (or current) depressed, moderate Dyskinesia, tardive Subacute dyskinesia due to drugs Panic disorder with agoraphobia Agoraphobia with panic disorder PTSD (post-traumatic stress disorder) Posttraumatic stress disorder documented in this encounter [facility] Discharge instructions No data available for this section [facility] Progress note No data available for this section [facility] Reason for referral (narrative)* Outpatient Procedure (Routine) - Pending Review Specialty Diagnoses / Procedures Referred By Patrick t Referred To Contact [facility] Diagnoses Encounter for long-term (current) use of medications Procedures ECG COMPLETE ECG ROUTINE ECG W/LEAST 12 LDS W/I&R Seda Quiroz, AIRCRAFT REFUELER.CARPET INSTALLER HELPER [address] [place] [address] [facility] [address] [address] Referral ID Status Reason Start Date Expiration Date Visits Requested Visits Authorized [id number] Pending Review Auto-Generat ed Referral 06/22/2022 06/22/2023 1 1 [facility] for referral (narrative)* Outpatient Procedure (Routine) - Authorized Specialty Diagnoses / Procedures [facility] Diagnoses SOB (shortness of breath) Procedures SPIROMETRY BASELINE ONLY SPMTRY W/VC EXPIRATORY JEWEL W/WO MXML VOL VNTJ Talia Dias MD [address] [place] [address] [facility] [place] [address] [place] [id number] Referral ID Status Reason Start Date Expiration Date Visits Requested Visits Authorized [id number] Authorized Auto-Generat ed Referral 07/19/2022 08/18/2023 1 1 T [facility] for referral (narrative)* Diagnostic Procedure Only (Routine) - Pending Review Specialty Diagnoses / Procedures Referred By [facility] Referred To Contact [facility] Diagnoses Encounter for screening mammogram for breast cancer Procedures JEANNETTE SCREENING SCREENING MAMMOGRAPHY BI 2-VIEW BREAST INC CAD Jericho Tinoco MD [address] [place] [id number] [facility] [address] [place] [id number] Referral ID Status Reason Start Date Expiration Date Visits Requested Visits Authorized [id number] Pending Review Auto-Generat ed Referral 11/07/2022 12/07/2023 1 1 T [facility] for referral (narrative)* Outpatient Procedure (Routine) - Authorized Specialty Diagnoses / Procedures [facility] Referred To Contact HEART [facility] Diagnoses Ingrowing toenail Procedures PVR ANK PRESS KAYLEE VAS LAB NON-INVAS PHYSIOLOGIC STD EXTREMITY ART 2 LEVEL Aron Navarro [address] [address] [facility] [place] [address] [place] [address] Referral ID Status Reason Start Date Expiration Date Visits Requested Visits Authorized [id number] Authorized Auto-Generat ed Referral 12/04/2022 12/04/2023 1 1 [facility] Summary Purpose Family History No Family History Records FoundNo Family History Records FoundNo Family History Records FoundNo Family History Records Found Advance Directives No Advanced Directives Records FoundDocuments on File Type Date Recorded Patient 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 Lockstitch Expl anation Advance Directive(s) 05/29/2019 12:50 PM Advance Directive(s) 04/16/2016 1:49 PM Advance Directive(s) 01/16/2016 9:20 AM Advance Directive(s) 12/19/2015 7:24 AM Reason for Referral Specialty Diagnoses / Procedures Referred By Contac t Referred To Contact Rheumatology Diagnoses Psoriatic arthritis (HCC) Procedures CONSULT TO RHEUM/IMMUN DISEASE Jericho Tinoco MD [address] [place] [address] Referral ID Status Reason Start Date Expiration Date Visits Requested Visits Authorized [id number] Ref Not Required PCP Requested Referral 03/06/2023 03/05/2024 1 1 Specialty Diagnoses / Procedures Referred By Patrick mchuhg Referred To Contact Diagnoses Bipolar affective disorder, remission status unspecified (HCC) Procedures CONSULT TO PSYCHIATRY OFFICE/OUTPATIENT [facility] MDM 60-74 MINUTES Older, LEONELA Marshall.CARPET INSTALLER HELPER [address] [place] [address] Referral ID Status Reason Start Date Expiration Date Visits Requested Visits Authorized [id number] Pending Review PCP Requested Referral 06/01/2022 06/01/2023 1 1 Additional Source Comments INFORMATION SOURCE (unrecogn ized section and content) DATE CREATED AUTHOR AUTHOR'S ORGANIZ ATION 06/19/2020 [facility] DATE CREATED AUTHOR AUTHOR'S ORGANIZ ATION 05/17/2022 [facility] ([place]) DATE CREATED AUTHOR AUTHOR'S NERI ATION 05/20/2023 [facility] Source Comments (unrecognize d section and content) In the event this informatio n is protected by the Federal Confidentiality of Alcohol and Drug Abuse Patient Records regulations: The Federal rules restrict any use of the information to criminally investigate or prosecute any alcohol or drug abuse patient.[facility] the event this information is protected by the Federal Confidentiality of Alcohol and Drug Abuse Patient Records regulations: The Federal rules restrict any use of the information to criminally investigate or prosecute any alcohol or drug abuse patient.[facility] CenterIn the event this information is protected by the Federal Confidentiality of Alcohol and Drug Abuse Patient Records regulations: The Federal rules restrict any use of the information to criminally investigate or prosecute any alcohol or drug abuse patient.[facility] Center[facility] the event this information is protected by the Federal Confidentiality of Alcohol and Drug Abuse Patient Records regulations: The Federal rules restrict any use of the information to criminally investigate or prosecute any alcohol or drug abuse patient.[facility] CenterIn the event this information is protected by the Federal Confidentiality of Alcohol and Drug Abuse Patient Records regulations: The Federal rules restrict any use of the information to criminally investigate or prosecute any alcohol or drug abuse patient.[facility] Center[facility] the event this information is protected by the Federal Confidentiality of Alcohol and Drug Abuse Patient Records regulations: The Federal rules restrict any use of the information to criminally investigate or prosecute any alcohol or drug abuse patient.[facility] CenterIn the event this information is protected by the Federal Confidentiality of Alcohol and Drug Abuse Patient Records regulations: The Federal rules restrict any use of the information to criminally investigate or prosecute any alcohol or drug abuse patient.[facility] Center[facility] the event this information is protected by the Federal Confidentiality of Alcohol and Drug Abuse Patient Records regulations: The Federal rules restrict any use of the information to criminally investigate or prosecute any alcohol or drug abuse patient.[facility] CenterIn the event this information is protected by the Federal Confidentiality of Alcohol and Drug Abuse Patient Records regulations: The Federal rules restrict any use of the information to criminally investigate or prosecute any alcohol or drug abuse patient.[facility] CenterIn the event this information is protected by the Federal Confidentiality of Alcohol and Drug Abuse Patient Records regulations: The Federal rules restrict any use of the information to criminally investigate or prosecute any alcohol or drug abuse patient.[facility] CenterIn the event this information is protected by the Federal Confidentiality of Alcohol and Drug Abuse Patient Records regulations: The Federal rules restrict any use of the information to criminally investigate or prosecute any alcohol or drug abuse patient.[facility] CenterIn the event this information is protected by the Federal Confidentiality of Alcohol and Drug Abuse Patient Records regulations: The Federal rules restrict any use of the information to criminally investigate or prosecute any alcohol or drug abuse patient.[facility] CenterIn the event this information is protected by the Federal Confidentiality of Alcohol and Drug Abuse Patient Records regulations: The Federal rules restrict any use of the information to criminally investigate or prosecute any alcohol or drug abuse patient.[facility] CenterIn the event this information is protected by the Federal Confidentiality of Alcohol and Drug Abuse Patient Records regulations: The Federal rules restrict any use of the information to criminally investigate or prosecute any alcohol or drug abuse patient.[facility] CenterIn the event this information is protected by the Federal Confidentiality of Alcohol and Drug Abuse Patient Records regulations: The Federal rules restrict any use of the information to criminally investigate or prosecute any alcohol or drug abuse patient.[facility] CenterIn the event this information is protected by the Federal Confidentiality of Alcohol and Drug Abuse Patient Records regulations: The Federal rules restrict any use of the information to criminally investigate or prosecute any alcohol or drug abuse patient.[facility] CenterIn the event this information is protected by the Federal Confidentiality of Alcohol and Drug Abuse Patient Records regulations: The Federal rules restrict any use of the information to criminally investigate or prosecute any alcohol or drug abuse patient.[facility] CenterIn the event this information is protected by the Federal Confidentiality of Alcohol and Drug Abuse Patient Records regulations: The Federal rules restrict any use of the information to criminally investigate or prosecute any alcohol or drug abuse patient.[facility] CenterIn the event this information is protected by the Federal Confidentiality of Alcohol and Drug Abuse Patient Records regulations: The Federal rules restrict any use of the information to criminally investigate or prosecute any alcohol or drug abuse patient.[facility] CenterIn the event this information is protected by the Federal Confidentiality of Alcohol and Drug Abuse Patient Records regulations: The Federal rules restrict any use of the information to criminally investigate or prosecute any alcohol or drug abuse patient.[facility] CenterIn the event this information is protected by the Federal Confidentiality of Alcohol and Drug Abuse Patient Records regulations: The Federal rules restrict any use of the information to criminally investigate or prosecute any alcohol or drug abuse patient.[facility] CenterIn the event this information is protected by the Federal Confidentiality of Alcohol and Drug Abuse Patient Records regulations: The Federal rules restrict any use of the information to criminally investigate or prosecute any alcohol or drug abuse patient.[facility] CenterIn the event this information is protected by the Federal Confidentiality of Alcohol and Drug Abuse Patient Records regulations: The Federal rules restrict any use of the information to criminally investigate or prosecute any alcohol or drug abuse patient.[facility] CenterIn the event this information is protected by the Federal Confidentiality of Alcohol and Drug Abuse Patient Records regulations: The Federal rules restrict any use of the information to criminally investigate or prosecute any alcohol or drug abuse patient.[facility] CenterIn the event this information is protected by the Federal Confidentiality of Alcohol and Drug Abuse Patient Records regulations: The Federal rules restrict any use of the information to criminally investigate or prosecute any alcohol or drug abuse patient.[facility] CenterIn the event this information is protected by the Federal Confidentiality of Alcohol and Drug Abuse Patient Records regulations: The Federal rules restrict any use of the information to criminally investigate or prosecute any alcohol or drug abuse patient.[facility] CenterIn the event this information is protected by the Federal Confidentiality of Alcohol and Drug Abuse Patient Records regulations: The Federal rules restrict any use of the information to criminally investigate or prosecute any alcohol or drug abuse patient.[facility] CenterIn the event this information is protected by the Federal Confidentiality of Alcohol and Drug Abuse Patient Records regulations: The Federal rules restrict any use of the information to criminally investigate or prosecute any alcohol or drug abuse patient.[facility] CenterIn the event this information is protected by the Federal Confidentiality of Alcohol and Drug Abuse Patient Records regulations: The Federal rules restrict any use of the information to criminally investigate or prosecute any alcohol or drug abuse patient.[facility] CenterIn the event this information is protected by the Federal Confidentiality of Alcohol and Drug Abuse Patient Records regulations: The Federal rules restrict any use of the information to criminally investigate or prosecute any alcohol or drug abuse patient.[facility] CenterIn the event this information is protected by the Federal Confidentiality of Alcohol and Drug Abuse Patient Records regulations: The Federal rules restrict any use of the information to criminally investigate or prosecute any alcohol or drug abuse patient.[facility] CenterIn the event this information is protected by the Federal Confidentiality of Alcohol and Drug Abuse Patient Records regulations: The Federal rules restrict any use of the information to criminally investigate or prosecute any alcohol or drug abuse patient.[facility] CenterIn the event this information is protected by the Federal Confidentiality of Alcohol and Drug Abuse Patient Records regulations: The Federal rules restrict any use of the information to criminally investigate or prosecute any alcohol or drug abuse patient.[facility] CenterIn the event this information is protected by the Federal Confidentiality of Alcohol and Drug Abuse Patient Records regulations: The Federal rules restrict any use of the information to criminally investigate or prosecute any alcohol or drug abuse patient.[facility] CenterIn the event this information is protected by the Federal Confidentiality of Alcohol and Drug Abuse Patient Records regulations: The Federal rules restrict any use of the information to criminally investigate or prosecute any alcohol or drug abuse patient.[facility] Reason for Visit (unrecogniz ed section and content) Reason Comments Referral Request Reason Comments Spirometry Specialty Diagnoses / Procedures Referred By Contac t Referred To Contact [facility] Diagnoses Moderate persistent asthma without complication Procedures SPIROMETRY BASELINE ONLY SPMTRY W/VC EXPIRATORY JEWEL W/WO MXML VOL VNTJ Jamilah Galvan PA-C [address] [place] [address] [address] Referral ID Status Reason Start Date Expiration Date V isits Requested Visits Authorized [id number] Closed Auto-Generate d Referral 07/17/2021 08/16/2022 1 1 Specialty Diagnoses / Procedures Referred By Contac t Referred To Contact [facility] Diagnoses Moderate persistent asthma without complication Procedures NITRIC OXIDE, EXHALED NITRIC OXIDE GAS DETERMINATION Jamilah Galvan PA-C [address] [place] [address] [address] Referral ID Status Reason Start Date Expiration Date V isits Requested Visits Authorized [id number] Closed Auto-Generate d Referral 07/17/2021 08/16/2022 1 1 Reason Comments Established Patient 6 month follow up as thma Reason Comments Recheck Reason Comments Patient Update Reason Onset Date Comments Transition Of Care 04/09/2022 Reason Comments Hospital F/U [facility] Reason Comments Follow Up Reason Comments Patient Question Reason Comments Medication Problem Breo Reason Onset Date Comments Refill Request 06/28/2022 Reason Comments New Patient Evaluation Specialty Diagnoses / Procedures Referred By Contac t Referred To Contact Diagnoses Bipolar affective disorder, remission status unspecified (HCC) Procedures CONSULT TO PSYCHIATRY OFFICE/OUTPATIENT NEW HIGH MDM 60-74 MINUTES Older, Joanna, AIRCRAFT REFUELER.CARPET INSTALLER HELPER [address] [place] [address] Referral ID Status Reason Start Date Expiration Date Visits Requested Visits Authorized [id number] Pending Review PCP Requested Referral 06/01/2022 06/01/2023 1 1 Reason Comments Established Patient 6 month follow up Asthma Specialty Diagnoses / Procedures Referred By Contac t Referred To Contact [facility] Diagnoses SOB (shortness of breath) Procedures SPIROMETRY BASELINE ONLY SPMTRY W/VC EXPIRATORY JEWEL W/WO MXML VOL VNTTalia Francois MD [address] [place] [address] Res[facility] [place] [address] [place] [address] Referral ID Status Reason Start Date Expiration Date V isits Requested Visits Authorized [id number] Closed Auto-Generate d Referral 07/19/2022 08/18/2023 1 1 Reason Comments Follow Up Specialty Diagnoses / Procedures Referred By Contac t Referred To Contact Psychiatry / ADULT PSYCHIATRY Diagnoses Follow up Procedures VIDEO PSYC/PSYL EST Claude, Joanna, AIRCRAFT REFUELER.CARPET INSTALLER HELPER [address] [place] [address] Seda Quiroz, AIRCRAFT REFUELER.CARPET INSTALLER HELPER [address] [place] [address] Referral ID Status Reason Start Date Expiration Date V isits Requested Visits Authorized [id number] Pending Review 08/23/2022 05/05/2023 30 30 Reason Comments Results Reason Comments Letter Reason Comments Established Patient Diabetic Foot Care Reason Comments Refill Request Reason Comments Express Care follow-up Reason Onset Date Comments Refill Request 03/09/2023 Specialty Diagnoses / Procedures Referred By Contac t Referred To Contact Psychiatry / ADULT PSYCHIATRY Diagnoses FOLLOW UP Procedures EST PSYC ADULT Jericho Tinoco MD [address] [place] [address] Seda Quiroz, AIRCRAFT REFUELER.CARPET INSTALLER HELPER [address] [place] [address] Referral ID Status Reason Start Date Expiration Date V isits Requested Visits Authorized [id number] Pending Review 04/02/2023 07/01/2023 1 1 Care Teams (unrecognized sec tion and content) Adhesive Bandage Making Operator Relationship Specialty Start Date End Date Jericho Tinoco MD [address] [place] [address] PCP - General Internal Medicine 05/26/15 Adhesive Bandage Making Operator Relationship Specialty Start Date End Date Jericho Tinoco MD [address] [place] [address] PCP - General Internal Medicine 05/26/15 Adhesive Bandage Making Operator Relationship Specialty Start Date End Date Jericho Tinoco MD [facility] [place] [address] PCP - General Internal Medicine 05/26/15 Adhesive Bandage Making Operator Relationship Specialty Start Date End Date Jericho Tinoco MD [facility] [place] [address] PCP - General Internal Medicine 05/26/15 Adhesive Bandage Making Operator Relationship Specialty Start Date End Date Jericho Tinoco MD [address] [place] [address] PCP - General Internal Medicine 05/26/15 Adhesive Bandage Making Operator Relationship Specialty Start Date End Date Jericho Tinoco MD [address] [place] [address] PCP - General Internal Medicine 05/26/15 Adhesive Bandage Making Operator Relationship Specialty Start Date End Date Jericho Tinoco MD [facility] [place] [address] PCP - General Internal Medicine 05/26/15 Adhesive Bandage Making Operator Relationship Specialty Start Date End Date Jericho Tinoco MD [facility] [place] [address] PCP - General Internal Medicine 05/26/15 Adhesive Bandage Making Operator Relationship Specialty Start Date End Date Jericho Tinoco MD [address] [place] [address] PCP - General Internal Medicine 05/26/15 Adhesive Bandage Making Operator Relationship Specialty Start Date End Date Jericho Tinoco MD [address] [place] [address] PCP - General Internal Medicine 05/26/15 Adhesive Bandage Making Operator Relationship Specialty Start Date End Date Jericho Tinoco MD [address] [place] [address] PCP - General Internal Medicine 05/26/15 Adhesive Bandage Making Operator Relationship Specialty Start Date End Date Jericho Tinoco MD [address] [place] [address] PCP - General Internal Medicine 05/26/15 Adhesive Bandage Making Operator Relationship Specialty Start Date End Date Jericho Tinoco MD [address] [place] [address] PCP - General Internal Medicine 05/26/15 Adhesive Bandage Making Operator Relationship Specialty Start Date End Date Jericho Tinoco MD [address] [place] [address] PCP - General Internal Medicine 05/26/15 Adhesive Bandage Making Operator Relationship Specialty Start Date End Date Jericho Tinoco MD [address] [place] [address] PCP - General Internal Medicine 05/26/15 Adhesive Bandage Making Operator Relationship Specialty Start Date End Date Jericho Tinoco MD [address] [place] [address] PCP - General Internal Medicine 05/26/15 Adhesive Bandage Making Operator Relationship Specialty Start Date End Date Jericho Tinoco MD [address] [place] [address] PCP - General Internal Medicine 05/26/15 Adhesive Bandage Making Operator Relationship Specialty Start Date End Date Jericho Tinoco MD [address] [place] [address] PCP - General Internal Medicine 05/26/15 Adhesive Bandage Making Operator Relationship Specialty Start Date End Date Jericho Tinoco MD [address] [place] [address] PCP - General Internal Medicine 05/26/15 Adhesive Bandage Making Operator Relationship Specialty Start Date End Date Jericho Tinoco MD [address] [place] [address] PCP - General Internal Medicine 05/26/15 Adhesive Bandage Making Operator Relationship Specialty Start Date End Date Jericho Tinoco MD [address] [place] [address] PCP - General Internal Medicine 05/26/15 Adhesive Bandage Making Operator Relationship Specialty Start Date End Date Jericho Tinoco MD [address] [place] [address] PCP - General Internal Medicine 05/26/15 Adhesive Bandage Making Operator Relationship Specialty Start Date End Date Jericho Tinoco MD [address] [place] [address] PCP - General Internal Medicine 05/26/15 Adhesive Bandage Making Operator Relationship Specialty Start Date End Date Jericho Tinoco MD [address] [place] [address] PCP - General Internal Medicine 05/26/15 Adhesive Bandage Making Operator Relationship Specialty Start Date End Date Jericho Tinoco MD [address] [place] [address] PCP - General Internal Medicine 05/26/15 Adhesive Bandage Making Operator Relationship Specialty Start Date End Date Jericho Tinoco MD [address] [place] [address] PCP - General Internal Medicine 05/26/15 Adhesive Bandage Making Operator Relationship Specialty Start Date End Date Jericho Tinoco MD [address] [place] [address] PCP - General Internal Medicine 05/26/15 Adhesive Bandage Making Operator Relationship Specialty Start Date End Date Jericho Tinoco MD [address] [place] [address] PCP - General Internal Medicine 05/26/15 Adhesive Bandage Making Operator Relationship Specialty Start Date End Date Jericho Tinoco MD [address] [place] [address] PCP - General Internal Medicine 05/26/15 Adhesive Bandage Making Operator Relationship Specialty Start Date End Date Jericho Tinoco MD [address] [place] [address] PCP - General Internal Medicine 05/26/15 Care Team (unrecognized sect ion and content) Care Team Personnel Name: JERICHO TINOCO MD Member Role: Primary Care Physician Address: Address: [address] [place] [address]- [place] Name: ROBIN RIGGS MD Position: ED Physician Member Role: ED Physician Address: Address: [address] [place] [id number]- [place] Name: [id number] Padilla Position: ED RN Member Role: ED RN Care Team Related Persons Name: AARON FLORES Care Team Personnel Name: JERICHO TINOCO MD Member Role: Primary Care Physician Address: Address: [facility] [place] [address]- Care Team Related Persons Name: AARON FLORES [...] BE BASED ON THE PRIMARY CLINICAL RECORDS. [email or web address] provides no warranty or guarantee of the accuracy or completeness of information in this document.
--- OUTSIDE RECORDS SUMMARY | 2023-05-22 16:24 | XMS RPT_ITS | CCD ---
Author Name Unknown Address [address] [place] [address] Organization [facility] Care Team Providers Care Mask Inspector Name Role Phone Ezequiel CARRANZA, Jericho Prado Primary Care Provider [phone] EZEQUIEL CARRANZA, DR HELM Primary Care Physician Ezequiel CARRANZA, Jericho Prado Primary Care Provider [phone] KARISHMA CARRANZA, ELIECER Dent Attending Unavailab christiano [...] [acetaminophen-oxy codone] Drug Allergy 5 GI Upset [facility] (20 sources) cariprazine; Translations: [CARIPRAZINE] Drug Allergy 9 Other: See Comments [facility] (20 sources) Codeine; Translations: [codeine] Drug Allergy 5 Other: See Comments [facility] (20 sources) HYDROmorphone; Translations: [HYDROMORPHONE (BULK)] Drug Allergy 5 GI Upset [facility] (20 sources) QUEtiapine; Translations: [quetiapine] Drug Allergy 9 Other: See Comments [facility] (20 sources) traMADol; Translations: [TRAMADOL HCL] Drug Allergy 5 GI Upset [facility] (2 sources) HYDROmorphone; Translations: [hydromorphone] Drug Allergy [facility] (2 sources) traMADol; Translations: [tramadol] Drug Allergy [facility] Medications Current Medications Medication Drug Class(es) [...] every six hours as needed for pain [place] 325- 5 mg oral tablet Dose = [...] Coronary atherosclerosis; Translations: [Atherosclerotic heart disease of [place] coronary artery without angina pectoris] Onset: 2 [...] sources) Patient encounter status; Translations: [Other watermelon inspector (current) drug therapy] Onset: 07-01-2022 Episodic Other aftercare (1 source) Other watermelon inspector (current) drug therapy; Translations: [Encounter for long-term [...] 08:56-0500 Body weight 128.19 kg Seda Rajguru BOX STRAPPER.PAROLE HEARING OFFICER Work Phone: [facility] 05-14-2023 08:56-0500 Diastolic blood pressure 58 mm[Hg] Seda Rajguru BOX STRAPPER.PAROLE HEARING OFFICER Work Phone: [facility] 05-14-2023 08:56-0500 Heart rate 80 /min Seda Rajguru BOX STRAPPER.PAROLE HEARING OFFICER Work Phone: [facility] 05-14-2023 08:56-0500 Systolic blood pressure 122 mm[Hg] Seda Rajguru BOX STRAPPER.PAROLE HEARING OFFICER Work Phone: [facility] 04-02-2023 13:37-0500 Body weight 126.1 kg Seda Rajguru BOX STRAPPER.PAROLE HEARING OFFICER Work Phone: [facility] 04-02-2023 13:37-0500 Diastolic blood pressure 66 mm[Hg] Seda Rajguru BOX STRAPPER.PAROLE HEARING OFFICER Work Phone: [facility] 04-02-2023 13:37-0500 Heart rate 80 /min Seda Rajguru BOX STRAPPER.PAROLE HEARING OFFICER Work Phone: [facility] 04-02-2023 13:37-0500 Systolic blood pressure 138 mm[Hg] Seda Rajguru BOX STRAPPER.PAROLE HEARING OFFICER Work Phone: [facility] 03-06-2023 11:02-0400 Body weight 127.87 kg Jericho Tinoco MD Work Phone: [facility] 03-06-2023 11:02-0400 Diastolic blood pressure 60 mm[Hg] Jericho Tinoco MD Work Phone: [facility] 03-06-2023 11:02-0400 Heart rate 64 /min Jericho Tinoco MD Work Phone: [facility] 03-06-2023 11:02-0400 Respiratory rate 20 /min Jericho Tinoco MD Work Phone: [facility] 03-06-2023 11:02-0400 Systolic blood pressure 118 mm[Hg] Jericho Tinoco MD Work Phone: [facility] 01-21-2023 12:56-0400 Body weight 124.29 kg Jamilah Memo PA-C Work Phone: [facility] 01-21-2023 12:56-0400 Diastolic blood pressure 60 mm[Hg] Jamilah Memo PA-C Work Phone: [facility] 01-21-2023 12:56-0400 Heart rate 62 /min Jamilah Memo PA-C Work Phone: [facility] 01-21-2023 12:56-0400 Respiratory rate 15 /min Jamilah Memo PA-C Work Phone: [facility] 01-21-2023 12:56-0400 SaO2% (BldA) [Mass fraction] 97 % Jamilah Memo PA-C Work Phone: [facility] 01-21-2023 12:56-0400 Systolic blood pressure 122 mm[Hg] Jamilah Memo PA-C Work Phone: [facility] 01-15-2023 08:17-0400 Body weight 126.55 kg Seda Rajguru BOX STRAPPER.PAROLE HEARING OFFICER Work Phone: [facility] 01-15-2023 08:17-0400 Diastolic blood pressure 58 mm[Hg] Seda Rajguru BOX STRAPPER.PAROLE HEARING OFFICER Work Phone: [facility] 01-15-2023 08:17-0400 Heart rate 76 /min Seda Rajguru BOX STRAPPER.PAROLE HEARING OFFICER Work Phone: [facility] 01-15-2023 08:17-0400 Systolic blood pressure 132 mm[Hg] Seda Rajguru BOX STRAPPER.PAROLE HEARING OFFICER Work Phone: [facility] 07-20-2022 15:15-0400 Body height 156.2 cm Pulm Wstr Work Phone: [facility] 07-20-2022 15:15-0400 Body weight 119.75 kg Pulm Wstr Work Phone: [facility] 07-19-2022 14:43-0400 Body weight 119.75 kg Talia Dias MD Work Phone: [facility] 07-19-2022 14:43-0400 Diastolic blood pressure 84 mm[Hg] Talia Dias MD Work Phone: [facility] 07-19-2022 14:43-0400 Heart rate 75 /min Talia Dias MD Work Phone: [facility] 07-19-2022 14:43-0400 Respiratory rate 18 /min Talia Dias MD Work Phone: [facility] 07-19-2022 14:43-0400 SaO2% (BldA) [Mass fraction] 97 % Talia Dias MD Work Phone: [facility] 07-19-2022 14:43-0400 Systolic blood pressure 138 mm[Hg] Talia Dias MD Work Phone: [facility] 06-01-2022 10:40-0500 Body weight 118.84 kg Ojanna Older BOX STRAPPER.PAROLE HEARING OFFICER Work Phone: [facility] 06-01-2022 10:40-0500 Diastolic blood pressure 60 mm[Hg] Joanna Older BOX STRAPPER.PAROLE HEARING OFFICER Work Phone: [facility] 06-01-2022 10:40-0500 Heart rate 68 /min Joanna Older BOX STRAPPER.PAROLE HEARING OFFICER Work Phone: [facility] 06-01-2022 10:40-0500 Respiratory rate 20 /min Joanna Older BOX STRAPPER.PAROLE HEARING OFFICER Work Phone: [facility] 06-01-2022 10:40-0500 SaO2% (BldA) [Mass fraction] 98 % Joanna Older BOX STRAPPER.PAROLE HEARING OFFICER Work Phone: [facility] 06-01-2022 10:40-0500 Systolic blood pressure 114 mm[Hg] Joanna Older BOX STRAPPER.PAROLE HEARING OFFICER Work Phone: [facility] 04-11-2022 16:17-0500 Body weight 118.84 kg Jericho Tinoco MD Work Phone: [facility] 04-11-2022 16:17-0500 Diastolic blood pressure 64 mm[Hg] Jericho Tinoco MD Work Phone: [facility] 04-11-2022 16:17-0500 Heart rate 69 /min Jericho Tinoco MD Work Phone: [facility] 04-11-2022 16:17-0500 Respiratory rate 20 /min Jericho Tinoco MD Work Phone: [facility] 04-11-2022 16:17-0500 SaO2% (BldA) [Mass fraction] 98 % Jericho Tinoco MD Work Phone: [facility] 04-11-2022 16:17-0500 Systolic blood pressure 94 mm[Hg] Jericho Tinoco MD Work Phone: [facility] 03-08-2022 15:35-0400 Body temperature 98.42 [degF] ROBIN RIGGS MD [facility] 03-08-2022 15:35-0400 Diastolic blood pressure 82 mm[Hg] ROBIN RIGGS MD [facility] 03-08-2022 15:35-0400 Heart rate 82 /min ROBIN RIGGS MD [facility] 03-08-2022 15:35-0400 Respiratory rate 16 /min ROBIN RIGGS MD [facility] 03-08-2022 15:35-0400 Systolic blood pressure 154 mm[Hg] ROBIN RIGGS MD [facility] 03-01-2022 10:50-0400 Body weight 120.2 kg Jericho Tinoco MD Work Phone: [facility] 03-01-2022 10:50-0400 Diastolic blood pressure 76 mm[Hg] Jericho Tinoco MD Work Phone: [facility] 03-01-2022 10:50-0400 Heart rate 69 /min Jericho Tinoco MD Work Phone: [facility] 03-01-2022 10:50-0400 Respiratory rate 14 /min Jericho Tinoco MD Work Phone: [facility] 03-01-2022 10:50-0400 SaO2% (BldA) [Mass fraction] 98 % Jericho Tinoco MD Work Phone: [facility] 03-01-2022 10:50-0400 Systolic blood pressure 124 mm[Hg] Jericho Tinoco MD Work Phone: [facility] 01-18-2022 13:02-0400 Body height 156.2 cm Jamilah Memo PA-C Work Phone: [facility] 01-18-2022 13:02-0400 Body weight 121.56 kg Jamilah Memo PA-C Work Phone: [facility] 01-18-2022 13:02-0400 Diastolic blood pressure 68 mm[Hg] Jamilah Memo PA-C Work Phone: [facility] 01-18-2022 13:02-0400 Heart rate 62 /min Jamilah Memo PA-C Work Phone: [facility] 01-18-2022 13:02-0400 Respiratory rate 14 /min Jamilah Memo PA-C Work Phone: [facility] 01-18-2022 13:02-0400 SaO2% (BldA) [Mass fraction] 96 % Jamilah Memo PA-C Work Phone: [facility] 01-18-2022 13:02-0400 Systolic blood pressure 122 mm[Hg] Jamilah Memo PA-C Work Phone: [facility] 01-18-2022 12:46-0400 Body height 156.2 cm Respiratory Wstr Work Phone: [facility] 01-18-2022 12:46-0400 Body weight 121.97 kg Respiratory Wstr Work Phone: [facility] 01-18-2022 12:46-0400 Heart rate 62 /min Respiratory Wstr Work Phone: [facility] 01-18-2022 12:46-0400 Respiratory rate 14 /min Respiratory Wstr Work Phone: [facility] 01-18-2022 12:46-0400 SaO2% (BldA) [Mass fraction] 96 % Respiratory Wstr Work Phone: [facility] Encounters Encounter Date Encounter Type Care Provider Facility Start: 05-14-2023 End: 05-15-2023 ambulatory JERICHO TINOCO Facility:[facility] Start: 05-14-2023 End: 05-14-2023 Patient encounter procedure Seda Quiroz APRN.PAROLE HEARING OFFICER Work Phone: Psychiatry Procedures Date Procedure Procedure [...] Activity Detail Author Start: 09-03-2027 Colonoscopy COLONOSCOPY [facility] Start: 09-03-2027 COLORECTAL CANCER SCREENING COLORECTAL CANCER SCREENING [facility] Start: 09-03-2027 Screening for malign ant neoplasm of colon [facility] Start: 08-24-2025 Urine microalbumin profile [facility] Start: 04-12-2024 Glaucoma screening Dilated Retinal E xam [facility] Start: 03-15-2024 Mammography Mammogram Screening [facility] Start: 03-15-2024 Screening for malign ant neoplasm of breast Mammogram Screening [facility] Start: 03-06-2024 Annual PCP Team [place] regan Disease Visit Annual PCP Team Chronic Disease Visit [facility] Start: 03-06-2024 Creatinine measurement Serum Creatin ine [facility] Start: 03-06-2024 Hepatitis B screening Urine Al bumin:Creatinine Ratio [facility] Start: 03-06-2024 Serum Creatinine Serum Creatinine Cl [facility] Start: 11-03-2023 Influenza vaccination Influenza Vacc ine (#1) [facility] Immunizations Immunization Date Immunization Notes Care Provider Fa nestor 04-07-2019 influenza, injectabl e, quadrivalent, contains preservative Jamilah Memo PA-C Work Phone: [facility] 04-07-2019 influenza virus vacc ine, unspecified formulation Seda Quiroz APRN.CNP Work Phone: [facility] 02-04-2018 influenza, high dose seasonal, preservative-free Jamilah Memo PA-C Work Phone: [facility] Work Phone: 02-20-2017 influenza, injectabl e, quadrivalent, contains preservative Jamilah Memo PA-C Work Phone: [facility] 03-02-2016 influenza, injectabl e, quadrivalent, contains preservative Jamilah Memo PA-C Work Phone: [facility] 03-02-2016 pneumococcal polysaccharide vaccine, 23 valent Jamilah Memo PA-C Work Phone: [facility] 08-25-2015 tetanus toxoid, redu wayne diphtheria toxoid, and acellular pertussis vaccine, adsorbed Jamilah Galvan PA-C Work Phone: [facility] 05-26-2015 influenza, injectabl e, quadrivalent, contains preservative Jamilah Galvan PA-C Work Phone: [facility] Payers Date Payer Category Payer Medicaid [facility] [employer]C ARE [facility] MEDICA[facility] [id number] 2015-Present [phone] [address] [place] [address] Medicaid [id number] 2015 Medicare [id number] 2015 Medicare [facility] MEDIC[facility] MYC ARE [facility] MEDICARE [id number] 2015-Present [phone] [address] [place] [address] Medicare [id number] 2015 Unknown [id number] 1966 Unknown [id number] 1966 Unknown [id number] Social History Date Type Detail Facility Start: 1981 End: 07-19-2022 Tobacco smoking status NHIS Smokes tobacco daily [facility] Work Phone: Start: 1981 History of tobacco use Cigarette Smo ker [facility] Work Phone: Start: 12-16-2019 End: 09-20-2022 Cigarettes smoked current (pack per day) - Reported 1 [facility] Start: 12-16-2019 End: 07-19-2022 Tobacco use and exposure Smokeless tobacco non-user [facility] Work Phone: Start: 07-17-2021 End: 06-01-2022 Alcohol intake Current drinker of alcohol (finding) [facility] Start: 10-25-2020 History SDOH Alcohol Comment occasional, rarely [facility] Start: 02-22-2020 End: 08-27-2022 History SDOH Financial 5 [facility] Start: 02-22-2020 End: 08-27-2022 History SDOH Food Worry 1 [facility] Start: 02-22-2020 End: 08-27-2022 History SDOH Transport Med 2 [place] [facility] Start: 1965 Sex Assigned At Not on file C [facility] Start: 07-07-2021 End: 01-31-2022 Exposure to SARS-CoV-2 (event) Not sure [facility] Start: 12-02-2021 History SDOH Alcohol Comment rare 1 drink [facility] Start: 12-02-2021 End: 08-27-2022 History SDOH Physical Activity DPW 0 [facility] Start: 12-02-2021 End: 01-18-2022 Tobacco Comment from age 16 [facility] Start: 03-05-2019 Tobacco smoking status Heavy t obacco smoker (finding) [facility] Sex Assigned At Sex [facility] Start: 06-22-2022 End: 04-02-2023 Alcohol intake Ex-drinker (finding) [facility] Start: 07-19-2022 Tobacco Comment from age 16. O ne PPD in past. Cut to 1/2 PPD in April [facility] Start: 08-27-2022 History SDOH Social Connections Phone 3 [facility] Start: 08-27-2022 History SDOH Social Connections Living 8 [facility] Start: 08-27-2022 End: 09-20-2022 Social connection and isolation panel [facility] Do you belong to any clubs or organizations such as congregation groups, unions, fraternal or athletic groups, or school groups? No [facility] Are you now , , , , never or living with a partner? Living with partner [facility] How often to you hav e a drink containing alcohol? Monthly or less [facility] How many standard dr inks containing alcohol do you have on a typical day? 1 or 2 [facility] How often do you hav e 6 or more drinks on 1 occasion? Never [facility] How hard is it for y ou to pay for the very basics like food, housing, medical care, and heating Not hard at all [facility] Do you feel stress - tense, restless, nervous, or anxious, or unable to sleep at night because your mind is troubled all the time - these days [OSQ] To some extent [facility] (I/We) worried wheth er (my/our) food would run out before (I/we) got money to buy more. Never true [facility] Medical Equipment Procedure Code Equipment Code Equipment Origin al Text Equipment Identifier Dates Spacer Avs 4d 8m m Spinal Bone Plug - [id number] Start: 05-30-2019 [place] Drill Bit 12mm X 23mm [id number] Start: 05-30-2019 Self Starting Variable Screw Size 4.0mm X 14mm [id number] Start: 05-30-2019 [place] Cervical P late 1-Level 22mm [id number] Start: 05-30-2019 Functional Status Date Assessment Result Facility 03-08-2022 Functional Status Standard Safet y ID band on, Call device within reach, Bed in low position, Wheels locked, Upper/Half-Length side-rails up, Bedside Cart Locked, Safety level maintained [facility] Mental Status Date Assessment Result Facility 03-08-2022 Mental Status Orientation Oriented x 4 [facility] Clinical Notes 01-25-2020 to 05-14-2023 Seda Quiroz APRN.CNP - 05/14/2023 9:02 AM Seda Quigley APRN.CNP - 04/02/2023 2:10 PM ESTTelephone Encounter - Michelle Sanchez LPN - 03/19/2023 2:57 PM ESTPatient Instructions Note Date & Type Note Facility 05-14-2023 Note HNO ID: [id number] Author: SEDA QUIROZ APRN.CNP Service: ? Author [...] really hard time sitting in the car. [place] that the car was caving in on [...] 05/26/2015 Obesity due to excess calories 05/26/2015 JSOE on CPAP 05/26/2015 Pain in joint, multiple sites 05/26/2015 Panic anxiety syndrome 04/11/2015 Postlaminectomy syndrome 12/05/2015 Radiculopathy, lumbar region 12/05/2015 Stage 3b chronic kidney disease (HCC) 12/04/2021 Type 2 diabetes mellitus without complication ([facility]) 03/02/2016 PAST SURGICAL HISTORY Procedure [...] AND/TRANSPOS MEDIAN NRV CARPAL TUNNE Left 08/30/2009 [facility] PAST SURGICAL HISTORY OF 05/30/2019 C5-[address] Grace Long PT ED HEART AND VASCULAR Cardiac Stent [facility] 11/30/22 S PROBE PERC LUMBAR DISCECTOMY 04/2000 [facility] Current Outpatient Medications Medication Sig Dispense Refill [...] 3 escitalopram o (more content not included)... [facility] 05-14-2023 History of Presen t illness [...] really hard time sitting in the car. [place] that the car was caving in on [...] 12/04/2021 Type 2 diabetes mellitus without complication ([facility]) 03/02/2016 PAST SURGICAL HISTORY Procedure [...] &/TRANSPOS MEDIAN NRV CARPAL TUNNE Left 08/30/2009 [facility] PAST SURGICAL HISTORY OF 05/30/2019 C5-[address] Grace Long PT ED HEART AND VASCULAR Cardiac Stent [facility] 04/04/22 S PROBE PERC LUMBAR DISCECTOMY 04/2000 [facility] Current Outpatient Medications Medication Sig Dispense Refill [...] REVIEWED: Psychiatric scales, Electronic medical record, and Professor Of Kinesiology notes DIAGNOSIS: Bipolar disorder, currently depressed, moderate [...] which included preparing to see the patient, [id number] patient care, completing clinical documentation, obtaining and/or [...] TIME: 9:03 AM documented in this encounter [facility] 04-02-2023 Note HNO ID: [id number] Author: Seda Quiroz APRN.CNP Service: ? Author [...] struggling with shortness of breath. Saw her mental health program director and was notified that her lung function was normal. Has been following up with her financial business analyst. Had to take Nitro due to chest [...] Date Acute myocardial infarction of lateral wall ([facility]) 04/04/2022 [facility] Cerebellar mass 1995 mass versus infarct Cervical cord compression with myelopathy ([facility]) 05/28/2019 Depression 04/11/2015 Disc degeneration, [...] 12/04/2021 Type 2 diabetes mellitus without complication ([facility]) 03/02/2016 PAST SURGICAL HISTORY Procedure [...] AND/TRANSPOS MEDIAN NRV CARPAL TUNNE Left 08/30/2009 [facility] PAST SURGICAL HISTORY OF 05/30/2019 C5-[address] Grace Long PT ED HEART AND VASCULAR Cardiac Stent [facility] 04/04/22 S PROBE PERC LUMBAR DISCECTOMY 04/2000 [facility] Current Outpatient Medications Medication Sig Dispense Refill [...] 1 tablet by (more content not included)... [facility] 04-02-2023 History of Presen t illness [...] struggling with shortness of breath. Saw her mental health program director and was notified that her lung function was normal. Has been following up with her financial business analyst. Had to take Nitro due to chest [...] &/TRANSPOS MEDIAN NRV CARPAL TUNNE Left 08/30/2009 [facility] PAST SURGICAL HISTORY OF 05/30/2019 C5-[address] Grace Long PT ED HEART AND VASCULAR Cardiac Stent [facility] 04/04/22 S PROBE PERC LUMBAR DISCECTOMY 04/2000 [facility] Current Outpatient Medications Medication Sig Dispense Refill [...] which included preparing to see the patient, [id number] patient care, completing clinical documentation, obtaining and/or [...] TIME: 2:10 PM documented in this encounter [facility] 03-19-2023 Miscellaneous Notes Patient notified and [...] for last apt. documented in this encounter [facility] 03-15-2023 Note HNO ID: [id number] Author: Marta Mosqueda RT(R) Service: ? Author [...] RT Arias(R) March 15, 2023 1:24 PM [facility] 03-11-2023 Miscellaneous Notes Patient has been [...] Gricelda Duckworth LPN. documented in this encounter [facility] 03-07-2023 Note HNO ID: [id number] Author: Aron Navarro Service: ? Author Type: [...] RTC in 3-4 months. Aron Navarro DPM [facility] 03-07-2023 Note HNO ID: [id number] Author: Pepper Estrada LPN Service: ? Author Type: LICENSED NURSE Type: Progress Notes Filed: 03/08/2023 10:31 PM Note Text: AMB ROOMING INTAKE FLOWSHEET DATA Patient presents with: Left Foot - Established Patient, Diabetic Foot Care Right Foot - Established Patient, Diabetic Foot Care Pepper Estrada LPN [facility] 03-06-2023 Note HNO ID: [id number] Author: Jericho Tinoco MD Service: ? Author Type: Physician Type: Progress Notes Filed: 03/06/2023 12:34 PM Note Text: This note was created using Samanage. Subjective Juan Eagle is a 58 year old female. She's been dealing with right wrist pain for about 2 months, with no injury. She reported taking up to 12 ibuprofen per day. Pain was worse with movement. Bracing helped some. X rays showed no acute findings. Her joints have been hurting more in general. 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 gameroom technician in [place], so had been off Humira for more [...] (Bmi) of 50.0 to 59.9 in Adult ([facility]) Persistent Headaches S/P Cervical Spinal Fusion Tobacco Use Disorder Moderate Persistent Asthma Without Complication Psoriatic Arthritis ([facility]) Irritable Bowel Syndrome With Diarrhea Stage 3a Chronic Kidney Disease ([facility]) Coronary Artery Disease Involving Marshall Coronary Artery of Marshall Heart Without Angina Pectoris St Elevation Myocardial Infarction Involving Left Circumflex Coronary Artery ([facility]) Ischemic Cardiomyopathy Encounter for Long-Term (Current) Use of Medications Bipolar Disorder ([facility]) Ptsd (Post-Traumatic Stress Disorder) Dyskinesia, [...] She is aler (more content not included)... [facility] 03-06-2023 History of Presen t illness Narrative This note was created using [employer] Systems[employer]. Subjective Juan Eagle is a 58 year old female. She's been dealing with right wrist pain for about 2 months, with no injury. She reported taking up to 12 ibuprofen per day. Pain was worse with movement. Bracing helped some. X rays showed no acute findings. Her joints have been hurting more in general. 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 gameroom technician in [place], so had been off Humira for more [...] Mellitus With Stage 3a Chronic Kidney Disease ([facility]) Mixed Hyperlipidemia Jose On Cpap Radiculopathy, Lumbar Region Postlaminectomy Syndrome Ddd (Degenerative Disc Disease), Lumbar Edema Class 3 Severe Obesity With Body Mass Index (Bmi) of 50.0 to 59.9 in Adult ([facility]) Persistent Headaches S/P Cervical Spinal Fusion Tobacco Use Disorder Moderate Persistent Asthma Without Complication Psoriatic Arthritis ([facility]) Irritable Bowel Syndrome With Diarrhea Stage 3a Chronic Kidney Disease ([facility]) Coronary Artery Disease Involving Marshall Coronary Artery of [place] Heart Without Angina Pectoris St Elevation Myocardial Infarction Involving Left Circumflex Coronary Artery ([facility]) Ischemic Cardiomyopathy Encounter for Long-Term (Current) Use of Medications Bipolar Disorder ([facility]) Ptsd (Post-Traumatic Stress Disorder) Dyskinesia, [...] Jericho Tinoco MD documented in this encounter [facility] 02-20-2023 Miscellaneous Notes Message to call office. Message to call office. Message to call office. Last: 01/15/2023 Noted-follow up 4 weeks 02/12/2023-cx'd by patient Covid exposure Next: NA documented in this encounter [facility] 01-21-2023 Note HNO ID: [id number] Author: Jamilah Galvan PA-C Service: ? Author Type: Physician Car Checker Type: Progress Notes Filed: 01/21/2023 1:28 PM Note Text: Patient: Juan Eagle PCP: Jericho Tinoco MD CC: follow up HPI: Juan Eagle 57 year old morbidly obese female current 68-gkut-klkb smoker with PMH significant for GERD, HLD, JOSE on CPAP, DM2, MA in March 2022 coded 3 times s/p [...] all sleep. DME: Medical Service. Follow with [facility]. PAST MEDICAL HISTORY Diagnosis Date Acute myocardial infarction of lateral wall ([facility]) 04/04/2022 [facility] Cerebellar mass 1995 mass versus infarct Cervical cord compression with myelopathy ([facility]) 05/28/2019 Depression 04/11/2015 Disc degeneration, [...] region 12/05/2015 Stage 3b chronic kidney disease ([facility]) 12/04/2021 Type 2 diabetes mellitus without complication ([facility]) 03/02/2016 Allergies: Codeine Other: See [...] PAST SURGICAL HISTOR (more content not included)... [facility] 01-21-2023 History of Presen t illness Narrative Images from the original note were not included. Patient: Juan Eagle PCP: Jericho Tinoco MD CC: follow up HPI: Juan Eagle 57 year old morbidly obese female current 38-awny-bajf smoker with PMH significant for GERD, HLD, JOSE on CPAP, DM2, MA in March 2022 coded 3 times s/p [...] all sleep. DME: Medical Service. Follow with [facility]. PAST MEDICAL HISTORY Diagnosis Date [...] &/TRANSPOS MEDIAN NRV CARPAL TUNNE Left 08/30/2009 [facility] PAST SURGICAL HISTORY OF 05/30/2019 C5-[address] Grace Long PT ED HEART AND VASCULAR Cardiac Stent [facility] 04/04/22 S PROBE PERC LUMBAR DISCECTOMY 04/2000 [facility] I reviewed the past medical history, family [...] obstruction Imaging / Diagnostic Studies: CXR 03/2022 [facility] reviewed showing bilateral hazy opacities without [...] Jamilah Galvan PA-C documented in this encounter [facility] 01-15-2023 Miscellaneous Notes Medication sent to [facility]. [facility] does have this medication in stock, Patient aware you will send there. [facility] calls to report that Ingrezza is a specialty medication and [facility] cannot get that med. Will need to try somewhere else. Elham Graves LPN documented in this encounter [facility] 01-15-2023 Note HNO ID: [id number] Author: Cassie Kendrick RT(R) Service: Radiology Author [...] Kendrick RT(R) January 15, 2023 9:25 AM [facility] 01-15-2023 Note HNO ID: [id number] Author: Fidel Bazan APRN.PAROLE HEARING OFFICER Service: ? Author Type: Nurse Practitioner Type: [...] Date Acute myocardial infarction of lateral wall ([facility]) 04/04/2022 [facility] Cerebellar mass 1995 mass versus infarct Cervical cord compression with myelopathy ([facility]) 05/28/2019 Depression 04/11/2015 Disc degeneration, [...] 12/04/2021 Type 2 diabetes mellitus without complication ([facility]) 03/02/2016 PAST SURGICAL HISTORY Procedure [...] AND/TRANSPOS MEDIAN NRV CARPAL TUNNE Left 08/30/2009 [facility] PAST SURGICAL HISTORY OF 05/30/2019 C5-[address] Grace Long PT ED HEART AND VASCULAR Cardiac Stent [facility] 04/04/22 S PROBE PERC LUMBAR DISCECTOMY 04/2000 [facility] ALLERGIES Codeine, Seroquel [Quetiapine], Vraylar [Cariprazine], Dilaudid [...] Hypertension Sister B (more content not included)... [facility] 01-15-2023 Note HNO ID: [id number] Author: Seda Quiroz APRN.PAROLE HEARING OFFICER Service: ? Author Type: Nurse Practitioner Type: [...] Ideations: No homicidal (more content not included)... [facility] 01-15-2023 Instructions Seda Quiroz, LEONELA.DAYANARA - 01/15/2023 9:08 AM EDT Aziza Pearson, It was good to talk with you today. Below is a summary of the plan that we discussed during your appointment for reference. Of course, if you have any questions or concerns do not hesitate to reach out to me via a message or call. Seda Reynoso APRN.PAROLE HEARING OFFICER PLAN AND FOLLOW UP: YOU SHOULD SEEK [...] - Call the National Suicide Hotline at 1-875-AVJUKNS ( ) or 4-991-508-TALK (6867) - Text 4HOPE to 499101 Medication Update: Lamictal 200 mg - take 1/2 tablet in the morning and 1 tablet in the evening. Ingrezza 40 mg - take 1 capsule every morning. Continue the rest of your psychiatric medications at the same dose. Next appointment: February 12 at 9:30 am in person -- You may call the department appointment line at [phone] to schedule your appointment. -- Please call my nurse Michelle at [phone] or send me a message in [employer] with any questions or concerns between appointments. documented in this encounter [facility] 01-15-2023 History of Presen t illness [...] referral for the patient to contact in [place]. Follow up in 4 weeks. Medication Update: [...] which included preparing to see the patient, tati-ak-aksy patient care, completing clinical documentation, and counseling and educating the patient/family/caregiver, ordering medications/labs. Seda Quiroz APRN.PAROLE HEARING OFFICER January 15, 2023 8:23 AM This note was partially generated using [employer] voice recognition system. Note was reviewed for accuracy. There may be minor misspellings or grammar miscues with [employer] voice recognition. documented in this encounter [facility] 12-04-2022 Note HNO ID: [id number] Author: Aron Navarro Service: ? Author Type: [...] Date Acute myocardial infarction of lateral wall ([facility]) 04/04/2022 [facility] Cerebellar mass 1995 mass versus infarct Cervical cord compression with myelopathy ([facility]) 05/28/2019 Depression 04/11/2015 Disc degeneration, [...] 12/04/2021 Type 2 diabetes mellitus without complication ([facility]) 03/02/2016 Current Outpatient Medications Medication [...] AND/TRANSPOS MEDIAN NRV CARPAL TUNNE Left 08/30/2009 [facility] PAST SURGICAL HISTORY OF 05/30/2019 C5-[address] Grace Long PT ED HEART AND VASCULAR Cardiac Stent [facility] 04/04/22 S PROBE PERC LUMBAR DISCECTOMY 04/2000 [facility] FAM (more content not included)... [facility] 12-04-2022 Note HNO ID: [id number] Author: Pepper Estrada LPN Service: ? Author Type: LICENSED NURSE Type: Progress Notes Filed: 12/05/2022 6:45 AM Note Text: AMB ROOMING INTAKE FLOWSHEET DATA Patient presents with: Left Foot - Established Patient, Diabetic Foot Care Right Foot - Established Patient, Diabetic Foot Care Pepper Estrada LPN [facility] 12-04-2022 Instructions Aron Navarro - 12/04/2022 [...] (or decreased sensation in your feet) a geophysical data technician should always cut your toenails. Be [...] Go to your health care provider or geophysical data technician to treat these conditions. documented in this encounter [facility] 12-04-2022 History of Presen t illness [...] &/TRANSPOS MEDIAN NRV CARPAL TUNNE Left 08/30/2009 [facility] PAST SURGICAL HISTORY OF 05/30/2019 C5-[address] Grace Long PT ED HEART AND VASCULAR Cardiac Stent [facility] 04/04/22 S PROBE PERC LUMBAR DISCECTOMY 04/2000 [facility] FAMILY HISTORY Problem Relation Age of Onset [...] with diabetes mellitus due to underlying condition ([facility]) (primary encounter diagnosis) (L84) Callus [...] Pepper Estrada LPN documented in this encounter [facility] 11-16-2022 Miscellaneous Notes Letter faxed to [...] a letter and it needs faxed to [phone]. Sofi Carrion RN documented in this encounter [facility] 11-07-2022 Note Patient Outreach (IN [facility]) JUAN EAGLE ([id number]) 1965 F CHT Date Time Provider Department [...] Date Reviewed: 08/28/2022 Reviewed by: Joanna Arce APRN.PAROLE HEARING OFFICER - Fully Assessed Visit Diagnosis:Encounter for screening mammogram for breast cancer [Z12.31] Order(s):[facility] [1895986] Order #: [id number] FUTURE Prescriptions as of 11/12/2022 - dulaglutide [...] (HCC) [N18.31] 12/04/2021 Coronary artery disease involving [place] andre*04/11/2022 ST elevation myocardial infarction involving le*04/11/2022 Ventricular fibrillation (HCC) [I49.01] 04/11/2022 08/28/2022 Ischemic cardiomyopathy [I25.5] 04/11/2022 Encounter for long-term (current) use of medica*07/01/2022 Bipolar disorder (HCC) [F31.9] 07/01/2022 PTSD (post-traumatic stress disorder) [F43.10] 07/01/2022 Dys (more content not included)... [facility] 09-20-2022 Note HNO ID: [id number] Author: Seda Quiroz APRN.PAROLE HEARING OFFICER Service: ? Author Type: Nurse Practitioner Type: [...] visit. Either the patient or their legal veterans employment representative has been informed of the risks [...] which included preparing to see the patient, xmha-sl-krgj patient care, completing clinical documentation, and counseling and educating the patient/family/caregiver, ordering medications/labs. Seda Quiroz APRN.CNP September 20, 2022 10:20 AM This note was partially generated using [employer] voice recognition system. Note was reviewed for accuracy. There may be minor misspellings or grammar miscu (more content not included)... [facility] 08-29-2022 Miscellaneous Notes Below results left on identified vm. Gricelda Duckworth LPN ----- Message from Joanna Arce APRN.CNP sent at 08/29/2022 8:41 AM EDT ----- Please let the patient know HgbA1c was 5.7, diabetes well controlled. Kidney function stable. The rest of her labs were within acceptable limits documented in this encounter [facility] 08-28-2022 Note HNO ID: [id number] Author: Joanna Arce APRN.CNP Service: ? Author [...] Date Acute myocardial infarction of lateral wall ([facility]) 04/04/2022 [facility] Cerebellar mass 1995 mass versus infarct Cervical cord compression with myelopathy ([facility]) 05/28/2019 Depression 04/11/2015 Disc degeneration, [...] 12/04/2021 Type 2 diabetes mellitus without complication ([facility]) 03/02/2016 PAST SURGICAL HISTORY Procedure [...] AND/TRANSPOS MEDIAN NRV CARPAL TUNNE Left 08/30/2009 [facility] PAST SURGICAL HISTORY OF 05/30/2019 C5-[address] Grace Long PT ED HEART AND VASCULAR Cardiac Stent [facility] 04/04/22 S PROBE PERC LUMBAR DISCECTOMY 04/2000 [facility] ALLERGIES Codeine, Seroquel [Quetiapine], Vraylar [Cariprazine], Dilaudid [...] Inhalation as instruct (more content not included)... [facility] 08-23-2022 Note HNO ID: [id number] Author: Seda Quiroz APRN.PAROLE HEARING OFFICER Service: ? Author Type: Nurse Practitioner Type: [...] visit. Either the patient or their legal veterans employment representative has been informed of the risks [...] and Lamictal at the same dose. 3. Harp Maker Dr. Savage consulted about restarting benzodiazepines. He [...] intent or plan (more content not included)... [facility] 08-23-2022 Instructions Seda Quiroz APRN.CNP - [...] - Call the National Suicide Hotline at 9-575-YCFYSFC ( ) or 5-601-157-TALK (9526) - Text 4HOPE to 161543 Medication Update: Lamictal 200 mg - take 1 tablet once daily. Continue the other psychiatric medications at the same dose. Next appointment: September 20 at 10:30 am Virtual -- Please call my nurse Michelle at [phone] or send me a message in [employer] with any questions or concerns between appointments. documented in this encounter [facility] 08-23-2022 History of Presen t illness [...] visit. Either the patient or their legal veterans employment representative has been informed of the risks [...] and Lamictal at the same dose. 3. Harp Maker Dr. Savage consulted about restarting benzodiazepines. He [...] which included preparing to see the patient, bdon-fs-mhqj patient care, completing clinical documentation, and counseling and educating the patient/family/caregiver, ordering medications/labs. Seda Quiroz APRN.CNP August 23, 2022 8:03 AM This note was partially generated using [employer] voice recognition system. Note was reviewed for accuracy. There may be minor misspellings or grammar miscues with Dragon voice recognition. documented in this encounter [facility] 07-20-2022 Note HNO ID: [id number] Author: FLASH Caceres Service: ? Author Type: Respiratory Therapist Type: Progress Notes Filed: 07/20/2022 3:28 PM Note Text: PULM FUNCTION SMARTBLOCK: Provider: Talia Dias MD Assisting Tech: FLASH Caceres Spirometry: 1 [facility] 07-20-2022 History of Presen t illness Narrative PULM FUNCTION SMARTBLOCK: Provider: Talia Dias MD Assisting Tech: FLASH Caceres Spirometry: 1 documented in this encounter [facility] 07-19-2022 Note HNO ID: [id number] Author: Talia Dias MD Service: ? Author Type: Physician Type: Progress Notes Filed: 07/19/2022 4:06 PM Note Text: . Respiratory [place] Note Patient name: Juan Eagle PCP: Jericho Tinoco MD CC: Shortness of breath HPI: Juan Eagle 57 year old morbidly obese female current 49-bdig-lwqg smoker with PMH significant for GERD, HLD, JOSE on CPAP, DM2, psoriatic arthritis and asthma, former patient of Dr. Christensen, new to me. Current therapy consists of Breo Ellipta and as needed albuterol. No issues with her Breo Ellipta. Has had relatively good control of her asthma until recently. Status post MA at the end of March, coded 3 [...] eosinophilia Imaging / Diagnostic Studies: CXR 03/2022 [facility] reviewed showing bilateral hazy opacities without pleural effusions consistent with pulmonary edema Echocardiogram with ejection fraction 60%, grade 3 diastolic dysfunction and mild pulmonary hypertension PAST MEDICAL HISTORY Diagnosis Date Acute myocardial infarction of lateral wall ([facility]) 04/04/2022 [facility] Cerebellar mass 1995 mass versus infarct Cervical cord compression with myelopathy ([facility]) 05/28/2019 Depression 04/11/2015 Disc degeneration, [...] region 12/05/2015 Stage 3b chronic kidney disease ([facility]) 12/04/2021 Type 2 diabetes mellitus without complication ([facility]) 03/02/2016 ALLERGIES Allergen Reactions Codeine [...] once daily. albuterol (more content not included)... [facility] 07-19-2022 History of Presen t illness Narrative Images from the original note were not included. . [facility] [place] Note Patient name: Juan Eagle PCP: Jericho Tinoco MD CC: Shortness of breath HPI: Juan Eagle 57 year old morbidly obese female current 22-lcom-eenk smoker with PMH significant for GERD, HLD, JOSE on CPAP, DM2, psoriatic arthritis and asthma, former patient of Dr. Christensen, new to me. Current therapy consists of Breo Ellipta and as needed albuterol. No issues with her Breo Ellipta. Has had relatively good control of her asthma until recently. Status post MA at the end of March, coded 3 [...] eosinophilia Imaging / Diagnostic Studies: CXR 03/2022 [facility] reviewed showing bilateral hazy opacities without [...] &/TRANSPOS MEDIAN NRV CARPAL TUNNE Left 08/30/2009 [facility] PAST SURGICAL HISTORY OF 05/30/2019 C5-[address] Grace Long PT ED HEART AND VASCULAR Cardiac Stent [facility] 04/04/22 S PROBE PERC LUMBAR DISCECTOMY 04/2000 [facility] PMH, Social history, family history and surgical [...] poor control of asthma 4. Cigarette smoker -64-lqin-bwuv smoker without sequelae of COPD -Smoking cessation recommended -PCP already referred patient to lung cancer screening clinic Talia Dias MD [facility] [place] documented in this encounter [facility] 06-28-2022 Miscellaneous Notes Amitriptyline has refill [...] Jamilah Gotti Pss documented in this encounter [facility] 06-28-2022 Miscellaneous Notes Pt called in [...] with detailed message. documented in this encounter [facility] 06-22-2022 Miscellaneous Notes Nurse from [facility] did not contact patient. Patient is returning a call she received from nurse Loaiza. Please contact the patient again. documented in this encounter [facility] 06-22-2022 Note HNO ID: [id number] Author: Seda Quiroz APRN.PAROLE HEARING OFFICER Service: ? Author Type: Nurse Practitioner Type: [...] she was in the car driving to [place]. She continues to take Lexapro and Lamictal. [...] Vrylar (TD). She was on the [employer]gress[employer]. [place] that it helped with TD for the [...] AND/TRANSPOS MEDIAN NRV CARPAL TUNNE Left 08/30/2009 [facility] PAST SURGICAL HISTORY OF 05/30/2019 C5-[address] Grace Long S PROBE PERC LUMBAR DISCECTOMY 04/2000 [facility] Current Outpatie (more content not included)... [facility] 06-22-2022 Instructions Seda Quiroz APRN.DAYANARA - 06/22/2022 9:34 AM EST Aziza Pearson, It was good to meet and talk with you today. Below is a summary of the plan that we discussed during your appointment for reference. Of course, if you have any questions or concerns do not hesitate to reach out to me via a message or call. Best, Seda Quiroz APRN.PAROLE HEARING OFFICER PLAN AND FOLLOW UP: YOU SHOULD SEEK [...] - Call the National Suicide Hotline at 0-529-SYFSFHM ( ) or 4-734-980-TALK (8991) - Text 7HIHE to 917865 Medication Update: - Restart Ambien 10 mg - take 1 tablet at bedtime to help with sleep. - Continue Lexapro and Lamictal at the same dose. Other: I left a message with your Harp Maker's nurse Disha. She will fax over the latest EKG results from May so you don't have to do the EKG. She will call me back after speaking with Dr. Savage about the medications. Next appointment: --Schedule in 3 to 4 weeks or sooner if needed -- You may call the department appointment line at [phone] to schedule your appointment. -- Please call my nurse Michelle at [phone] or send me a message in [employer] with any questions or concerns between appointments. documented in this encounter [facility] 06-22-2022 History of Presen t illness [...] she was in the car driving to [place]. She continues to take Lexapro and Lamictal. [...] Vrylar (TD). She was on the Ingressa. [place] that it helped with TD for the [...] &/TRANSPOS MEDIAN NRV CARPAL TUNNE Left 08/30/2009 [facility] PAST SURGICAL HISTORY OF 05/30/2019 C5-[address] Grace Long S PROBE PERC LUMBAR DISCECTOMY 04/2000 [facility] Current Outpatient Medications Medication Sig Dispense Refill [...] Previously followed by Jason Mendoza at the [facility] Therapist: Previously saw a therapist at the counseling center but they reported that she had graduated from it. Last engaged in therapy 4 years ago. Current Wrapper Stemmer Operator: No Last Hospitalization: None ECT: No Previous [...] use or dependence SPIRITUALITY: Cyndi [facility]: Juan Eagle is the 2nd of 5 siblings. The patient was born and raised in [place], [place]. She completed High school, Technical. She [...] and Lamictal at the same dose. 3. Harp Maker Dr. Savage consulted about restarting benzodiazepines. He [...] which included preparing to see the patient, nmnk-ic-nlnp patient care, completing clinical documentation, obtaining and/or [...] AM PAGER : documented in this encounter [facility] 06-01-2022 Note HNO ID: [id number] Author: Joanna Arce APRN.CNP Service: ? Author [...] AND/TRANSPOS MEDIAN NRV CARPAL TUNNE Left 08/30/2009 [facility] PAST SURGICAL HISTORY OF 05/30/2019 C5-[address] Grace Long S PROBE PERC LUMBAR DISCECTOMY 04/2000 [facility] ALLERGIES Codeine, Seroquel [Quetiapine], Vraylar [Cariprazine], Dilaudid [...] daily. Per Counseling (more content not included)... [facility] 06-01-2022 History of Presen t illness [...] &/TRANSPOS MEDIAN NRV CARPAL TUNNE Left 08/30/2009 [facility] PAST SURGICAL HISTORY OF 05/30/2019 C5-[address] Grace Long S PROBE PERC LUMBAR DISCECTOMY 04/2000 [facility] ALLERGIES Codeine, Seroquel [Quetiapine], Vraylar [Cariprazine], Dilaudid [...] psychiatrist. She is interested in seeing F dietetic assistant. - CONSULT TO PSYCHIATRY 2. Insomnia, unspecified type - ICD9: 780.52, ICD10: G47.00 See above. Increase Elavil to 50 mg at bedtime 3. Panic anxiety syndrome - ICD9: 300.01, ICD10: F41.0 See above. 4. Coronary artery disease involving [place] coronary artery of [place] heart without angina pectoris - ICD9: 414.01, [...] Joanna Arce APRN.CNP documented in this encounter [facility] 04-12-2022 Miscellaneous Notes After appt 04/11/22 pcp is asking for med profile from [facility]. Called [facility]. They are not able to do this. Pt will need to come to their store and request this. Message left to pt with this info Called [place]. Message left with same request. documented in this encounter [facility] 04-11-2022 History of Presen t illness Narrative This note was created using [employer]. Subjective Transitional Care Management Progress Note The patients TCM visit was performed within the 7 days of discharge. Patient's Date of discharge: 04/06/2022 Date of initial coordinator contact after discharge: 04/09/2022 Discharge diagnosis: Acute MA. Cardiac arrest. Medication review completed Yes Jericho [...] Kidney Disease (Hcc) Coronary Artery Disease Involving [place] Coronary Artery of [place] Heart Without Angina Pectoris St Elevation Myocardial [...] &/TRANSPOS MEDIAN NRV CARPAL TUNNE Left 08/30/2009 [facility] PAST SURGICAL HISTORY OF 05/30/2019 C5-[address] Grace Long S PROBE PERC LUMBAR DISCECTOMY 04/2000 [facility] Social History Tobacco Use Smoking status: Every [...] I49.01 - In the setting of acute MA. 3. Coronary artery disease involving [place] coronary artery of [place] heart without angina pectoris - ICD9: 414.01, [...] Jericho Tinoco MD documented in this encounter [facility] documented as of this encounter (statuses as of 08/29/2022) [facility] History of Past illness Narrative* Problem [...] of this encounter (statuses as of 11/12/2022) [facility] History of Past illness Narrative* Problem [...] of this encounter (statuses as of 11/16/2022) [facility] History of Past illness Narrative* Problem [...] of this encounter (statuses as of 12/05/2022) [facility] History of Past illness Narrative* Problem [...] of this encounter (statuses as of 01/15/2023) [facility] History of Past illness Narrative* Problem [...] of this encounter (statuses as of 01/15/2023) [facility] History of Past illness Narrative* Problem [...] of this encounter (statuses as of 01/21/2023) [facility] History of Past illness Narrative* Problem [...] of this encounter (statuses as of 02/09/2023) [facility] History of Past illness Narrative* Problem [...] of this encounter (statuses as of 02/13/2023) [facility] History of Past illness Narrative* Problem [...] of this encounter (statuses as of 02/20/2023) [facility] History of Past illness Narrative* Problem [...] of this encounter (statuses as of 03/06/2023) [facility] History of Past illness Narrative* Problem [...] of this encounter (statuses as of 03/12/2023) [facility] History of Past illness Narrative* Problem [...] of this encounter (statuses as of 03/20/2023) [facility] History of Past illness Narrative* Problem [...] of this encounter (statuses as of 04/08/2023) [facility] History of Past illness Narrative* Problem [...] of this encounter (statuses as of 05/20/2023) [facility] History of Present illness Narrative* Brigette Fregoso LPN - 04/09/2022 3:16 PM EST TRANSITION CARE MANAGEMENT (TCM) INITIAL CONTACT Night Order Selector Outreach Provider Action/FYI: Apt has been scheduled Initial contact with patient post discharge, spoke to patient. Patient identified by name and . TRANSITION CARE MANAGEMENT INITIAL OUTREACH DOCUMENTATION: Date of Outreach: 04/09/2022 Outreach Attempt 1: Contact Made Date of Discharge 04/06/2022 Some recent data might be hidden SUMMARY: -Pt discharged from [facility] on 04/06/22. -Admitted for: heart attack [...] home? Yes Medical records from recent hospitalization: [facility] has records if not received [facility] Hospital Discharge instructions Patient Education 03/08/2022 [...] leg Difficulty speaking, swallowing or walking Seizure [id number] The [employer]. [address] [place] [address], [place] [address]. All rights reserved. This information is not intended as a substitute for professional medical care. Always follow yourhealthcare professional's instructions. Follow Up Care 03/08/2022 15:34:05 With:JERICHO TINOCO MD Address: [address] [place] [address]- When:2-4 days [facility] 11-03-2022 Emergency department Discharge summary Discharge Instructions Thank you for allowing [facility] to assist you with your healthcare needs. The following is importantdischarge information regarding your hospital visit. Diagnosis from Today's Visit Shingles Rash What to Do Next Instructions from Your Care Team No qualifying data available. Post Acute Orders No qualifying data available. You Need to Schedule the Following Appointments Follow Up with JERICHO TINOCO MD When Within 2-4 days Where: [address] [place], [place] [id number]- Allergies Dilaudid Percocet 5/325 SEROquel codeine traMADol [...] Duration: 7 Days Printed Prescription Changed acetaminophen-hydrocodone (Wanette 325- 5 mg oral tablet) 1 tab(s) by mouth Two (2) times a day Changed acetaminophen-hydrocodone (Wanette 325- 5 mg oral tablet) 1 tab(s) [...] leg Difficulty speaking, swallowing or walking Seizure [id number] The [employer]. [address] [place], [place] [id number]. All rights reserved. This information is not intended as a substitute for professional medical care. Always follow yourhealthcare professional's instructions. Additional Information VACCINATE! IT SAVES LIVES! Members of the community who have not yet received the COVID-19 vaccine and would like to receive it can visit one of [facility] vaccine clinics. There are many vaccine clinic locations within the [facility]. For locations and available times, please visit [email or web address]. It is important to note that some COVID mobile vaccine clinics are held outdoors and may be canceled in rainy orstormy conditions. To learn more about pediatric vaccinations (ages 5-11), we invite you to visit the [facility] webpage. [email or web address] learn more about the COVID-19 vaccine, we invite you to visit the [facility] website for a list of frequently asked questions. [email or web address] [facility] Patient Portal Access Instructions: Stay connected with your healthcare team and access your personal medical information anytime with the [email or web address] Patient Portal. If you would like a full copy of your medical records please contact the [facility] Medical Records Department Saturday through Saturday between 8a.m. and 4:30p.m. Please follow the directions below to access the portal: 1.Access the email account you provided upon registration to the special care hospital.2.Look for an invitation email from [facility].3.Open the email and access the invitation link: Accept Invitation to [facility]4.Fill in the required alamo to create your account. Sign into [email or web address] with your username and password that you [...] you will allow to register on the [email or web address] Patient Portal for access to your information. You can also access the [facility] Patient Portal on the WillCall dasha. Simply click on Health Records under ReadyDock and then click on the [employer] logo. HOW TO SAFELY DISPOSE OF PRESCRIPTION [...] Call your local pharmacy or go to [email or web address] to find one close to you.3.Make use of household items: Use cat litter or old coffee grounds to dispose medications if other options arenot available. Mix your drugs with these household products, seal them in an airtight container andthrow it into the garbage. Call [facility]: [phone] to be sure your drugs can be [...] aware that I should contact my doctor. Patient/Supervisor Extruding Department Signature: Date/Time: Relationship to Patient: Witness Name/Signature: Date/Time: [facility]10-27-2022 History of Present illness Narrative * [...] intervention Jericho Tinoco MD documented [facility] Evaluation note* Diagnosis Type 2 diabetes [...] obesity type (HCC) documented in this encounter [facility] Miscellaneous Notes* Telephone Encounter - Jericho Tinoco MD - 02/23/2022 1:08 PM EDT documented in this encounterM[facility] Nurse Note* Peggy Diaz LPN - 01/18/2022 1:01 PM EDT Intake information documented in the prior visit with FLASH Caceres today. documented in this encounterM[facility]09-[facility] Procedure note* FLASH Caceres - 01/18/2022 [...] 2022 TIME: 12:58 PM documented in this encounterMiddletown [facility]09-[facility] History of Present illness Narrative* FLASH Caceres - 01/18/2022 12:45 PM EDT PULM FUNCTION SMARTBLOCK: Provider: Jamilah Galvan PA-C Assisting Tech: FLASH Caceres Spirometry: 1 Exhaled Nitric Oxide: 1 documented in this encounterM[facility]own [facility]09-[facility] History of Present illness Narrative* Jamilah Galvan PA-C - 01/18/2022 12:45 PM EDT [facility] [place], 01/18/2022: Name: Juan Eagle : 1965 The [...] FEF75 (L/sec) 0.69 0.28 1.54 0.92 133 WBA08-03 (L/sec) 2.32 1.24 3.74 2.57 110 PEF [...] answers. Jamilah Galvan PA-C documented in this encounterM[facility]own [facility]08-[facility]-2022 Miscellaneous Notes* Telephone Encounter - Gricelda Duckworth LPN - 12/04/2021 5:02 PM EDT Below left referral on identified vm. Faxed referral to [facility] scheduling. Gricelda Duckworth LPN * Telephone [...] is calling asking for a referral to [facility] dietitian. She is wanting directions on what to eatand not to eat with the dx of 3rd stage renal failure. documented in this encounterM[facility]03-[facility]22 Miscellaneous Notes* Telephone Encounter - Brigette Linares - 07/21/2021 11:21 AM EDT Patient electronically requesting refills as follows: Pending Prescriptions Disp Refills LANSOPRAZOLE 30 MG CAPSULE,DELAYED RELEASE 90 capsule 3 Sig: Take 1 capsule by mouth once daily. AURY: No Please review and advise. Brigette Linares documented in this encounterM[facility]own [facility]09-21-[facility]21 History of Past illness Narrative* Problem [...] of this encounter (statuses as of 12/04/2021) [facility] History of Past illness Narrative* Problem [...] of this encounter (statuses as of 12/04/2021) [facility] of Past illness Narrative* Problem [...] of this encounter (statuses as of 01/18/2022) [facility] of Past illness Narrative* Problem [...] of this encounter (statuses as of 01/18/2022) [facility] Narrative* Problem [...] of this encounter (statuses as of 02/23/2022) [facility] Narrative* Problem [...] of this encounter (statuses as of 03/01/2022) [facility] of Past illness Narrative* Problem [...] of this encounter (statuses as of 04/12/2022) [facility] Narrative* Problem [...] of this encounter (statuses as of 04/12/2022) [facility] of Past illness Narrative* Problem [...] of this encounter (statuses as of 04/13/2022) [facility] Narrative* Problem [...] of this encounter (statuses as of 06/01/2022) [facility] Narrative* Problem [...] of this encounter (statuses as of 06/22/2022) [facility] of [facility] Narrative* Problem [...] of this encounter (statuses as of 06/28/2022) [facility] Narrative* Problem [...] of this encounter (statuses as of 07/01/2022) [facility] of [facility] Narrative* Problem [...] of this encounter (statuses as of 07/01/2022) [facility] of [facility] illness Narrative* Problem [...] of this encounter (statuses as of 07/19/2022) [address]21-2021 History of Past illness Narrative* Problem [...] of this encounter (statuses as of 07/20/2022) [facility] of [facility] Narrative* Problem [...] of this encounter (statuses as of 08/23/2022) [facility] History of Past illness Narrative* Problem Noted Date Resolved Date BMI 45.0-49.9, adult 01/25/2020 03/20/2021 Thumb tendonitis 01/20/2016 02/20/2017 Osteoarthritis of lumbar spine 12/05/2015 1 Depression 04/11/2015 08/10/2017 Low back pain 04/11/2015 02/20/2017 Gastroesophageal reflux disease without esophagi tis 04/11/2015 12/16/2019 documented as of this encounter (statuses as of 07/24/2021) [facility] of Past illness Narrative* Problem Noted Date Resolved Date BMI 45.0-49.9, adult 01/25/2020 03/20/2021 Thumb tendonitis 01/20/2016 02/20/2017 Osteoarthritis of lumbar spine 12/05/2015 1 Depression 04/11/2015 08/10/2017 Low back pain 04/11/2015 02/20/2017 Gastroesophageal reflux disease without esophagi tis 04/11/2015 12/16/2019 documented as of this encounter (statuses as of 09/01/2021) [facility] note No data available for this section [facility] Evaluation note* Diagnosis Gastroesophageal reflux disease without esophagitis Esophageal reflux documented in this encounter [facility] note* Diagnosis Type 2 diabetes mellitus without complication (HCC) Type II or unspecified type diabetes mellitus without mention of complication, not stated as uncontrolled documented in this encounter [facility] note* Diagnosis Stage 3b chronic kidney disease (HCC)- Primary documented in this encounter [facility] note* Diagnosis Stage 3b chronic kidney disease (HCC)- Primary Type 2 diabetes mellitus without complication, without long-term current use of insulin ([facility]) documented in this encounter [facility] note* Diagnosis Moderate persistent asthma without complication Unspecified asthma documented in this encounter [facility] note* Diagnosis Moderate persistent asthma without complication Unspecified asthma documented in this encounter [facility] note* Diagnosis Moderate persistent asthma without complication- Primary Unspecified asthma Gastroesophageal reflux disease without esophagitis Esophageal reflux Tobacco use disorder JOSE (obstructive sleep apnea) Obstructive sleep apnea (adult) (pediatric) documented in this encounter [facility] note* Diagnosis Stage 3b chronic kidney disease (HCC)- Primary Panic anxiety syndrome Panic disorder without agoraphobia documented in this encounter [facility] note* Diagnosis ST elevation myocardial infarction involving left circumflex coronary artery ([facility])- Primary Acute myocardial infarction of other specified sites, initial episode of care Ventricular fibrillation (HCC) Ventricular fibrillation Coronary artery disease involving [place] coronary artery of [place] heart without angina pectoris Ischemic cardiomyopathy Other specified forms of chronic ischemic heart disease Mixed hyperlipidemia Type 2 diabetes mellitus with stage 3a chronic kidney disease, without long-term current use of insulin ([facility]) Tobacco use disorder [facility] Bipolar affective disorder, remission status unspecified ([facility])- Primary Insomnia, unspecified type Panic anxiety syndrome Panic disorder without agoraphobia Coronary artery disease involving [place] coronary artery of [place] heart without angina pectoris Persistent headaches Headache Type 2 diabetes mellitus with stage 3a chronic kidney disease, without long-term current use of insulin ([facility]) Morbid obesity with BMI of 45.0-49.9, adult ([facility]) Morbid obesity Psoriatic arthritis (HCC) Psoriatic arthropathy [facility] Diagnosis Persistent headaches Headache Gastroesophageal reflux disease without esophagitis Esophageal reflux [facility]* Diagnosis Encounter for long-term (current) use of medications- Primary Encounter for long-term (current) use of other medications Bipolar affective disorder, remission status unspecified ([facility]) PTSD (post-traumatic stress disorder) Posttraumatic stress disorder Panic disorder with agoraphobia Agoraphobia with panic disorder Dyskinesia, tardive Subacute dyskinesia due to drugs [facility]* Diagnosis SOB (shortness of breath)- Primary Shortness of breath Mild intermittent asthma without complication Unspecified asthma Morbid obesity (HCC) Morbid obesity Cigarette smoker Tobacco use disorder [facility]* Diagnosis SOB (shortness of breath) Shortness of breath [facility]* Diagnosis PTSD (post-traumatic stress disorder)- Primary Posttraumatic stress disorder Panic disorder with agoraphobia Agoraphobia with panic disorder Dyskinesia, tardive Subacute dyskinesia due to drugs Bipolar affective disorder, currently depressed, moderate ([facility]) Bipolar I disorder, most recent episode (or current) depressed, moderate [facility]* Diagnosis Encounter for screening mammogram for breast cancer [facility]* Diagnosis Diabetic mononeuropathy associated with diabetes mellitus due to underlying condition ([facility])- Primary Callus of foot Corns and callosities Ingrowing toenail Ingrowing nail Onychomycosis Dermatophytosis of nail Pain in toe of left foot Pain in limb Pain in toe of right foot Pain in limb Diminished pulses in lower extremity Other symptoms involving cardiovascular system [facility]* Diagnosis Bipolar affective disorder, currently depressed, moderate ([facility])- Primary Bipolar I disorder, most recent episode (or current) depressed, moderate Dyskinesia, tardive Subacute dyskinesia due to drugs Panic disorder with agoraphobia Agoraphobia with panic disorder PTSD (post-traumatic stress disorder) Posttraumatic stress disorder [facility]* Diagnosis Moderate persistent asthma without complication- Primary Unspecified asthma Morbid obesity (HCC) Morbid obesity Gastroesophageal reflux disease without esophagitis Esophageal reflux Cigarette smoker Tobacco use disorder [facility] Diagnosis Panic disorder with agoraphobia Agoraphobia with panic disorder Dyskinesia, tardive Subacute dyskinesia due to drugs [facility]* Diagnosis Wrist pain, right- Primary Pain in joint, forearm Psoriatic arthritis (HCC) Psoriatic arthropathy Type 2 diabetes mellitus with stage 3a chronic kidney disease, without long-term current use of insulin ([facility]) [facility]* Diagnosis Persistent headaches Headache documented in this encounter [facility] note* Diagnosis Dyskinesia, tardive- Primary Subacute dyskinesia due to drugs Bipolar affective disorder, currently depressed, moderate (HCC) Bipolar I disorder, most recent episode (or current) depressed, moderate Panic disorder with agoraphobia Agoraphobia with panic disorder PTSD (post-traumatic stress disorder) Posttraumatic stress disorder documented in this encounter [facility] note* Diagnosis Bipolar affective disorder, currently depressed, moderate (HCC)- Primary Bipolar I disorder, most recent episode (or current) depressed, moderate Dyskinesia, tardive Subacute dyskinesia due to drugs Panic disorder with agoraphobia Agoraphobia with panic disorder PTSD (post-traumatic stress disorder) Posttraumatic stress disorder documented in this encounter [facility] Discharge instructions No data available for this section [facility] Progress note No data available for this section [facility] Reason for referral (narrative)* Outpatient Procedure (Routine) - Pending Review Specialty Diagnoses / Procedures Referred By Patrick t Referred To Contact [facility] Diagnoses Encounter for long-term (current) use of medications Procedures ECG COMPLETE ECG ROUTINE ECG W/LEAST 12 LDS W/I&R Seda Quiroz, BOX STRAPPER.PAROLE HEARING OFFICER [address] [place] [address] [facility] Vascular [address] [address] Referral ID Status Reason Start Date Expiration Date Visits Requested Visits Authorized [id number] Pending Review Auto-Generat ed Referral 06/22/2022 06/22/2023 1 1 [facility] for referral (narrative)* Outpatient Procedure (Routine) - Authorized Specialty Diagnoses / Procedures [facility] Diagnoses SOB (shortness of breath) Procedures SPIROMETRY BASELINE ONLY SPMTRY W/VC EXPIRATORY JEWEL W/WO MXML VOL VNTJ Talia Dias MD [address] [place] [address] [facility] [place] [address] [place] [address] Referral ID Status Reason Start Date Expiration Date Visits Requested Visits Authorized [id number] Authorized Auto-Generat ed Referral 07/19/2022 08/18/[address] [facility] for referral (narrative)* Diagnostic Procedure Only (Routine) - Pending Review Specialty Diagnoses / Procedures Referred By [facility] Referred To Contact [facility] Diagnoses Encounter for screening mammogram for breast cancer Procedures JEANNETTE SCREENING SCREENING MAMMOGRAPHY BI 2-VIEW BREAST INC CAD Jericho Tinoco MD [address] [place] [address] [facility] [address] [place] [phone] Referral ID Status Reason Start Date Expiration Date Visits Requested Visits Authorized [id number] Pending Review Auto-Generat ed Referral 11/07/2022 12/07/[address] [facility] for referral (narrative)* Outpatient Procedure (Routine) - Authorized Specialty Diagnoses / Procedures [facility] Referred To Contact [facility] VASCULAR [place] Diagnoses Ingrowing toenail Procedures PVR ANK PRESS KAYLEE [facility] NON-INVAS PHYSIOLOGIC STD EXTREMITY ART 2 LEVEL Aron Navarro [address] [address] [facility] [place] [address] [place] [address] Referral ID Status Reason Start Date Expiration Date Visits Requested Visits Authorized [id number] Authorized Auto-Generat ed Referral 12/04/2022 12/04/2023 1 1 [facility] Summary Purpose Family History No Family History Records FoundNo Family History Records FoundNo Family History Records FoundNo Family History Records Found Advance Directives No Advanced Directives Records FoundDocuments on File Type Date Recorded Patient Supervisor Extruding Department Expl anation Advance Directive(s) 05/29/2019 12:50 PM Advance Directive(s) 04/16/2016 1:49 PM Advance Directive(s) 01/16/2016 9:20 AM Advance Directive(s) 12/19/2015 7:24 AM Reason for Referral Specialty Diagnoses / Procedures Referred By Contac t Referred To Contact Rheumatology Diagnoses Psoriatic arthritis (HCC) Procedures CONSULT TO RHEUM/IMMUN DISEASE Jericho Tinoco MD [address] [place] [address] Referral ID Status Reason Start Date Expiration Date Visits Requested Visits Authorized [id number] Ref Not Required PCP Requested Referral 03/06/2023 03/05/2024 1 1 Specialty Diagnoses / Procedures Referred By Patrick mchugh Referred To Contact Diagnoses Bipolar affective disorder, remission status unspecified (HCC) Procedures CONSULT TO PSYCHIATRY OFFICE/OUTPATIENT [facility] MDM 60-74 MINUTES Older, LEONELA Marshall.PAROLE HEARING OFFICER [address] [place] [address] Referral ID Status Reason Start Date Expiration Date Visits Requested Visits Authorized [id number] Pending Review PCP Requested Referral 06/01/2022 06/01/2023 1 1 Additional Source Comments INFORMATION SOURCE (unrecogn ized section and content) DATE CREATED AUTHOR AUTHOR'S ORGANIZ ATION 06/19/2020 [facility] DATE CREATED AUTHOR AUTHOR'S ORGANIZ ATION 05/17/2022 [facility] ([place]) DATE CREATED AUTHOR AUTHOR'S NERI ATION 05/20/2023 [facility] Source Comments (unrecognize d section and content) In the event this informatio n is protected by the Federal Confidentiality of Alcohol and Drug Abuse Patient Records regulations: The Federal rules restrict any use of the information to criminally investigate or prosecute any alcohol or drug abuse patient.[facility] HospitalIn the event this information is protected by the Federal Confidentiality of Alcohol and Drug Abuse Patient Records regulations: The Federal rules restrict any use of the information to criminally investigate or prosecute any alcohol or drug abuse patient.[facility] HospitalIn the event this information is protected by the Federal Confidentiality of Alcohol and Drug Abuse Patient Records regulations: The Federal rules restrict any use of the information to criminally investigate or prosecute any alcohol or drug abuse patient.[facility] HospitalIn the event this information is protected by the Federal Confidentiality of Alcohol and Drug Abuse Patient Records regulations: The Federal rules restrict any use of the information to criminally investigate or prosecute any alcohol or drug abuse patient.[facility] HospitalIn the event this information is protected by the Federal Confidentiality of Alcohol and Drug Abuse Patient Records regulations: The Federal rules restrict any use of the information to criminally investigate or prosecute any alcohol or drug abuse patient.[facility] HospitalIn the event this information is protected by the Federal Confidentiality of Alcohol and Drug Abuse Patient Records regulations: The Federal rules restrict any use of the information to criminally investigate or prosecute any alcohol or drug abuse patient.[facility] HospitalIn the event this information is protected by the Federal Confidentiality of Alcohol and Drug Abuse Patient Records regulations: The Federal rules restrict any use of the information to criminally investigate or prosecute any alcohol or drug abuse patient.[facility] HospitalIn the event this information is protected by the Federal Confidentiality of Alcohol and Drug Abuse Patient Records regulations: The Federal rules restrict any use of the information to criminally investigate or prosecute any alcohol or drug abuse patient.[facility] HospitalIn the event this information is protected by the Federal Confidentiality of Alcohol and Drug Abuse Patient Records regulations: The Federal rules restrict any use of the information to criminally investigate or prosecute any alcohol or drug abuse patient.[facility] HospitalIn the event this information is protected by the Federal Confidentiality of Alcohol and Drug Abuse Patient Records regulations: The Federal rules restrict any use of the information to criminally investigate or prosecute any alcohol or drug abuse patient.[facility] HospitalIn the event this information is protected by the Federal Confidentiality of Alcohol and Drug Abuse Patient Records regulations: The Federal rules restrict any use of the information to criminally investigate or prosecute any alcohol or drug abuse patient.[facility] HospitalIn the event this information is protected by the Federal Confidentiality of Alcohol and Drug Abuse Patient Records regulations: The Federal rules restrict any use of the information to criminally investigate or prosecute any alcohol or drug abuse patient.[facility] HospitalIn the event this information is protected by the Federal Confidentiality of Alcohol and Drug Abuse Patient Records regulations: The Federal rules restrict any use of the information to criminally investigate or prosecute any alcohol or drug abuse patient.[facility] HospitalIn the event this information is protected by the Federal Confidentiality of Alcohol and Drug Abuse Patient Records regulations: The Federal rules restrict any use of the information to criminally investigate or prosecute any alcohol or drug abuse patient.[facility] HospitalIn the event this information is protected by the Federal Confidentiality of Alcohol and Drug Abuse Patient Records regulations: The Federal rules restrict any use of the information to criminally investigate or prosecute any alcohol or drug abuse patient.[facility] HospitalIn the event this information is protected by the Federal Confidentiality of Alcohol and Drug Abuse Patient Records regulations: The Federal rules restrict any use of the information to criminally investigate or prosecute any alcohol or drug abuse patient.[facility] HospitalIn the event this information is protected by the Federal Confidentiality of Alcohol and Drug Abuse Patient Records regulations: The Federal rules restrict any use of the information to criminally investigate or prosecute any alcohol or drug abuse patient.[facility] HospitalIn the event this information is protected by the Federal Confidentiality of Alcohol and Drug Abuse Patient Records regulations: The Federal rules restrict any use of the information to criminally investigate or prosecute any alcohol or drug abuse patient.[facility] HospitalIn the event this information is protected by the Federal Confidentiality of Alcohol and Drug Abuse Patient Records regulations: The Federal rules restrict any use of the information to criminally investigate or prosecute any alcohol or drug abuse patient.[facility] HospitalIn the event this information is protected by the Federal Confidentiality of Alcohol and Drug Abuse Patient Records regulations: The Federal rules restrict any use of the information to criminally investigate or prosecute any alcohol or drug abuse patient.[facility] HospitalIn the event this information is protected by the Federal Confidentiality of Alcohol and Drug Abuse Patient Records regulations: The Federal rules restrict any use of the information to criminally investigate or prosecute any alcohol or drug abuse patient.[facility] HospitalIn the event this information is protected by the Federal Confidentiality of Alcohol and Drug Abuse Patient Records regulations: The Federal rules restrict any use of the information to criminally investigate or prosecute any alcohol or drug abuse patient.[facility] HospitalIn the event this information is protected by the Federal Confidentiality of Alcohol and Drug Abuse Patient Records regulations: The Federal rules restrict any use of the information to criminally investigate or prosecute any alcohol or drug abuse patient.[facility] HospitalIn the event this information is protected by the Federal Confidentiality of Alcohol and Drug Abuse Patient Records regulations: The Federal rules restrict any use of the information to criminally investigate or prosecute any alcohol or drug abuse patient.[facility] HospitalIn the event this information is protected by the Federal Confidentiality of Alcohol and Drug Abuse Patient Records regulations: The Federal rules restrict any use of the information to criminally investigate or prosecute any alcohol or drug abuse patient.[facility] HospitalIn the event this information is protected by the Federal Confidentiality of Alcohol and Drug Abuse Patient Records regulations: The Federal rules restrict any use of the information to criminally investigate or prosecute any alcohol or drug abuse patient.[facility] HospitalIn the event this information is protected by the Federal Confidentiality of Alcohol and Drug Abuse Patient Records regulations: The Federal rules restrict any use of the information to criminally investigate or prosecute any alcohol or drug abuse patient.[facility] HospitalIn the event this information is protected by the Federal Confidentiality of Alcohol and Drug Abuse Patient Records regulations: The Federal rules restrict any use of the information to criminally investigate or prosecute any alcohol or drug abuse patient.[facility] HospitalIn the event this information is protected by the Federal Confidentiality of Alcohol and Drug Abuse Patient Records regulations: The Federal rules restrict any use of the information to criminally investigate or prosecute any alcohol or drug abuse patient.[facility] HospitalIn the event this information is protected by the Federal Confidentiality of Alcohol and Drug Abuse Patient Records regulations: The Federal rules restrict any use of the information to criminally investigate or prosecute any alcohol or drug abuse patient.[facility] HospitalIn the event this information is protected by the Federal Confidentiality of Alcohol and Drug Abuse Patient Records regulations: The Federal rules restrict any use of the information to criminally investigate or prosecute any alcohol or drug abuse patient.[facility] HospitalIn the event this information is protected by the Federal Confidentiality of Alcohol and Drug Abuse Patient Records regulations: The Federal rules restrict any use of the information to criminally investigate or prosecute any alcohol or drug abuse patient.[facility] HospitalIn the event this information is protected by the Federal Confidentiality of Alcohol and Drug Abuse Patient Records regulations: The Federal rules restrict any use of the information to criminally investigate or prosecute any alcohol or drug abuse patient.[facility] HospitalIn the event this information is protected by the Federal Confidentiality of Alcohol and Drug Abuse Patient Records regulations: The Federal rules restrict any use of the information to criminally investigate or prosecute any alcohol or drug abuse patient.[facility] HospitalIn the event this information is protected by the Federal Confidentiality of Alcohol and Drug Abuse Patient Records regulations: The Federal rules restrict any use of the information to criminally investigate or prosecute any alcohol or drug abuse patient.[facility] Reason for Visit (unrecogniz ed section and content) Reason Comments Referral Request Reason Comments Spirometry Specialty Diagnoses / Procedures Referred By Contac t Referred To Contact [facility] Diagnoses Moderate persistent asthma without complication Procedures SPIROMETRY BASELINE ONLY SPMTRY W/VC EXPIRATORY JEWEL W/WO MXML VOL VNTJ Jamilah Galvan PA-C [address] [place] [address] [address] Referral ID Status Reason Start Date Expiration Date V isits Requested Visits Authorized [id number] Closed Auto-Generate d Referral 07/17/2021 08/16/2022 1 1 Specialty Diagnoses / Procedures Referred By Contac t Referred To Contact [facility] Diagnoses Moderate persistent asthma without complication Procedures NITRIC OXIDE, EXHALED NITRIC OXIDE GAS DETERMINATION Jamilah Galvan PA-C [address] [place] [address] [address] Referral ID Status Reason Start Date Expiration Date V isits Requested Visits Authorized [id number] Closed Auto-Generate d Referral 07/17/2021 08/16/2022 1 1 Reason Comments Established Patient 6 month follow up as thma Reason Comments Recheck Reason Comments Patient Update Reason Onset Date Comments Transition Of Care 04/09/2022 Reason Comments Hospital F/U [facility] Reason Comments Follow Up Reason Comments Patient Question Reason Comments Medication Problem Breo Reason Onset Date Comments Refill Request 06/28/2022 Reason Comments New Patient Evaluation Specialty Diagnoses / Procedures Referred By Contac t Referred To Contact Diagnoses Bipolar affective disorder, remission status unspecified (HCC) Procedures CONSULT TO PSYCHIATRY OFFICE/OUTPATIENT NEW HIGH MDM 60-74 MINUTES Older, Joanna, [employer]OX STRAP[employer]ING OFFICER [address] [place] [address] Referral ID Status Reason Start Date Expiration Date Visits Requested Visits Authorized [id number] Pending Review PCP Requested Referral 06/01/2022 06/01/2023 1 1 Reason Comments Established Patient 6 month follow up Asthma Specialty Diagnoses / Procedures Referred By Contac t Referred To Contact [facility] Diagnoses SOB (shortness of breath) Procedures SPIROMETRY BASELINE ONLY SPMTRY W/VC EXPIRATORY JEWEL W/WO MXML VOL VNTTalia Francois MD [address] [place] [address] Respiratory [place] [address] [place] [address] Referral ID Status Reason Start Date Expiration Date V isits Requested Visits Authorized [id number] Closed Auto-Generate d Referral 07/19/2022 08/18/2023 1 1 Reason Comments Follow Up Specialty Diagnoses / Procedures Referred By Contac t Referred To Contact Psychiatry / ADULT PSYCHIATRY Diagnoses Follow up Procedures VIDEO PSYC/PSYL EST Claude, Joanna, [employer]ICER [address] [place] [address] Seda Quiroz, [employer] HEARING OFFICER [address] [place] [address] Referral ID Status Reason Start Date Expiration Date V isits Requested Visits Authorized [id number] Pending Review 08/23/2022 05/05/2023 30 30 Reason Comments Results Reason Comments Letter Reason Comments Established Patient Diabetic Foot Care Reason Comments Refill Request Reason Comments Express Care follow-up Reason Onset Date Comments Refill Request 03/09/2023 Specialty Diagnoses / Procedures Referred By Contac t Referred To Contact Psychiatry / ADULT PSYCHIATRY Diagnoses FOLLOW UP Procedures EST PSYC ADULT Jericho Tinoco MD [address] [place] [address] Seda Quiroz, [employer]ARING OFFICER [address] [place] [address] Referral ID Status Reason Start Date Expiration Date V isits Requested Visits Authorized [id number] Pending Review 04/02/2023 07/01/2023 1 1 Care Teams (unrecognized sec tion and content) Mask Inspector Relationship Specialty Start Date End Date Jericho Tinoco MD [address] [facility] [place] [address] PCP - General Internal Medicine 05/26/15 Mask Inspector Relationship Specialty Start Date End Date Jericho Tinoco MD [address] [facility] [place] [address] PCP - General Internal Medicine 05/26/15 Mask Inspector Relationship Specialty Start Date End Date Jericho Tinoco MD [facility] [place] [address] PCP - General Internal Medicine 05/26/15 Mask Inspector Relationship Specialty Start Date End Date Jericho Tinoco MD [facility] [place] [address] PCP - General Internal Medicine 05/26/15 Mask Inspector Relationship Specialty Start Date End Date Jericho Tinoco MD [address] [facility] [place] [address] PCP - General Internal Medicine 05/26/15 Mask Inspector Relationship Specialty Start Date End Date Jericho Tinoco MD [address] [facility] [place] [address] PCP - General Internal Medicine 05/26/15 Mask Inspector Relationship Specialty Start Date End Date Jericho Tinoco MD [facility] [place] [address] PCP - General Internal Medicine 05/26/15 Mask Inspector Relationship Specialty Start Date End Date Jericho Tinoco MD [facility] [place] [address] PCP - General Internal Medicine 05/26/15 Mask Inspector Relationship Specialty Start Date End Date Jericho Tinoco MD [address] [facility] [place] [address] PCP - General Internal Medicine 05/26/15 Mask Inspector Relationship Specialty Start Date End Date Jericho Tinoco MD [address] [facility] [place] [address] PCP - General Internal Medicine 05/26/15 Mask Inspector Relationship Specialty Start Date End Date Jericho Tinoco MD [address] [facility] [place] [address] PCP - General Internal Medicine 05/26/15 Mask Inspector Relationship Specialty Start Date End Date Jericho Tinoco MD [address] [facility] [place] [address] PCP - General Internal Medicine 05/26/15 Mask Inspector Relationship Specialty Start Date End Date Jericho Tinoco MD [address] [facility] [place] [address] PCP - General Internal Medicine 05/26/15 Mask Inspector Relationship Specialty Start Date End Date Jericho Tinoco MD [address] [facility] [place] [address] PCP - General Internal Medicine 05/26/15 Mask Inspector Relationship Specialty Start Date End Date Jericho Tinoco MD [address] [facility] [place] [address] PCP - General Internal Medicine 05/26/15 Mask Inspector Relationship Specialty Start Date End Date Jericho Tinoco MD [address] [facility] [place] [address] PCP - General Internal Medicine 05/26/15 Mask Inspector Relationship Specialty Start Date End Date Jericho Tinoco MD [address] [facility] [place] [address] PCP - General Internal Medicine 05/26/15 Mask Inspector Relationship Specialty Start Date End Date Jericho Tinoco MD [address] [facility] [place] [address] PCP - General Internal Medicine 05/26/15 Mask Inspector Relationship Specialty Start Date End Date Jericho Tinoco MD [address] [facility] [place] [address] PCP - General Internal Medicine 05/26/15 Mask Inspector Relationship Specialty Start Date End Date Jericho Tinoco MD [address] [facility] [place] [address] PCP - General Internal Medicine 05/26/15 Mask Inspector Relationship Specialty Start Date End Date Jericho Tinoco MD [address] [facility] [place] [address] PCP - General Internal Medicine 05/26/15 Mask Inspector Relationship Specialty Start Date End Date Jericho Tinoco MD [address] [facility] [place] [address] PCP - General Internal Medicine 05/26/15 Mask Inspector Relationship Specialty Start Date End Date Jericho Tinoco MD [address] [facility] [place] [address] PCP - General Internal Medicine 05/26/15 Mask Inspector Relationship Specialty Start Date End Date Jericho Tinoco MD [address] [facility] [place] [address] PCP - General Internal Medicine 05/26/15 Mask Inspector Relationship Specialty Start Date End Date Jericho Tinoco MD [address] [place] [address] PCP - General Internal Medicine 05/26/15 Mask Inspector Relationship Specialty Start Date End Date Jericho Tinoco MD [address] [place] [address] PCP - General Internal Medicine 05/26/15 Mask Inspector Relationship Specialty Start Date End Date Jericho Tinoco MD [address] [place] [address] PCP - General Internal Medicine 05/26/15 Mask Inspector Relationship Specialty Start Date End Date Jericho Tinoco MD [address] [place] [address] PCP - General Internal Medicine 05/26/15 Mask Inspector Relationship Specialty Start Date End Date Jericho Tinoco MD [address] [place] [address] PCP - General Internal Medicine 05/26/15 Mask Inspector Relationship Specialty Start Date End Date Jericho Tinoco MD [address] [place] [address] PCP - General Internal Medicine 05/26/15 Care Team (unrecognized sect ion and content) Care Team Personnel Name: JERICHO TINOCO MD Member Role: Primary Care Physician Address: Address: [address] [place] [address]- [place] Name: ROBIN RIGGS MD Position: ED Physician Member Role: ED Physician Address: Address: [address] [place] [address]- [place] Name: [id number] Padilla Position: ED RN Member Role: ED RN Care Team Related Persons Name: AARON FLORES Care Team Personnel Name: JERICHO TINOCO MD Member Role: Primary Care Physician Address: Address: [facility] [place] [address]- Care Team Related Persons Name: AARON FLORES [...] BE BASED ON THE PRIMARY CLINICAL RECORDS. [employer] provides no warranty or guarantee of the accuracy or completeness of information in this document.
--- OUTSIDE RECORDS SUMMARY | 2023-05-22 16:25 | XMS RPT_ITS | CCD ---
Author Name Unknown Address [address] [place] [address] Organization [facility] Care Team Providers Care Hull Molder Name Role Phone Ezequiel CARRANZA, Jericho Prado Primary Care Provider [phone] EZEQUIEL CARRANZA, DR HELM Primary Care Physician Ezequiel CARRANZA, Jericho Prado Primary Care Provider [phone] KARISHMA CARRANZA, ELIECER Dent Attending Unavailab christiano [...] [acetaminophen-oxy codone] Drug Allergy 5 GI Upset [facility] (20 sources) cariprazine; Translations: [CARIPRAZINE] Drug Allergy 9 Other: See Comments [facility] (20 sources) Codeine; Translations: [codeine] Drug Allergy 5 Other: See Comments [facility] (20 sources) HYDROmorphone; Translations: [HYDROMORPHONE (BULK)] Drug Allergy 5 GI Upset [facility] (20 sources) QUEtiapine; Translations: [quetiapine] Drug Allergy 9 Other: See Comments [facility] (20 sources) traMADol; Translations: [TRAMADOL HCL] Drug Allergy 5 GI Upset [facility] (2 sources) HYDROmorphone; Translations: [hydromorphone] Drug Allergy [facility] (2 sources) traMADol; Translations: [tramadol] Drug Allergy [facility] Medications Current Medications Medication Drug Class(es) [...] every six hours as needed for pain [place] 325- 5 mg oral tablet Dose = [...] Coronary atherosclerosis; Translations: [Atherosclerotic heart disease of [place] coronary artery without angina pectoris] Onset: 2 [...] sources) Patient encounter status; Translations: [Other terminal operations supervisor (current) drug therapy] Onset: 07-01-2022 Episodic Other aftercare (1 source) Other terminal operations supervisor (current) drug therapy; Translations: [Encounter for [...] 08:56-0500 Body weight 128.19 kg Seda Rajguru ARTIST WOODBLOCK.EMBALMER ASSISTANT Work Phone: [facility] 05-14-2023 08:56-0500 Diastolic blood pressure 58 mm[Hg] Seda Rajguru ARTIST WOODBLOCK.EMBALMER ASSISTANT Work Phone: [facility] 05-14-2023 08:56-0500 Heart rate 80 /min Seda Rajguru ARTIST WOODBLOCK.EMBALMER ASSISTANT Work Phone: [facility] 05-14-2023 08:56-0500 Systolic blood pressure 122 mm[Hg] Seda Rajguru ARTIST WOODBLOCK.EMBALMER ASSISTANT Work Phone: [facility] 04-02-2023 13:37-0500 Body weight 126.1 kg Seda Rajguru ARTIST WOODBLOCK.EMBALMER ASSISTANT Work Phone: [facility] 04-02-2023 13:37-0500 Diastolic blood pressure 66 mm[Hg] Seda Rajguru ARTIST WOODBLOCK.EMBALMER ASSISTANT Work Phone: [facility] 04-02-2023 13:37-0500 Heart rate 80 /min Seda Rajguru ARTIST WOODBLOCK.EMBALMER ASSISTANT Work Phone: [facility] 04-02-2023 13:37-0500 Systolic blood pressure 138 mm[Hg] Seda Rajguru ARTIST WOODBLOCK.EMBALMER ASSISTANT Work Phone: [facility] 03-06-2023 11:02-0400 Body weight 127.87 kg Jericho Tinoco MD Work Phone: [facility] 03-06-2023 11:02-0400 Diastolic blood pressure 60 mm[Hg] Jericho Tinoco MD Work Phone: [facility] 03-06-2023 11:02-0400 Heart rate 64 /min Jericho Tinoco MD Work Phone: [facility] 03-06-2023 11:02-0400 Respiratory rate 20 /min Jericho Tinoco MD Work Phone: [facility] 03-06-2023 11:02-0400 Systolic blood pressure 118 mm[Hg] Jericho Tinoco MD Work Phone: [facility] 01-21-2023 12:56-0400 Body weight 124.29 kg Jamilah Memo PA-C Work Phone: [facility] 01-21-2023 12:56-0400 Diastolic blood pressure 60 mm[Hg] Jamilah Memo PA-C Work Phone: [facility] 01-21-2023 12:56-0400 Heart rate 62 /min Jamilah Memo PA-C Work Phone: [facility] 01-21-2023 12:56-0400 Respiratory rate 15 /min Jamilah Memo PA-C Work Phone: [facility] 01-21-2023 12:56-0400 SaO2% (BldA) [Mass fraction] 97 % Jamilah Memo PA-C Work Phone: [facility] 01-21-2023 12:56-0400 Systolic blood pressure 122 mm[Hg] Jamilah Memo PA-C Work Phone: [facility] 01-15-2023 08:17-0400 Body weight 126.55 kg Seda Rajguru ARTIST WOODBLOCK.EMBALMER ASSISTANT Work Phone: [facility] 01-15-2023 08:17-0400 Diastolic blood pressure 58 mm[Hg] Seda Rajguru ARTIST WOODBLOCK.EMBALMER ASSISTANT Work Phone: [facility] 01-15-2023 08:17-0400 Heart rate 76 /min Seda Rajguru ARTIST WOODBLOCK.EMBALMER ASSISTANT Work Phone: [facility] 01-15-2023 08:17-0400 Systolic blood pressure 132 mm[Hg] Seda Rajguru ARTIST WOODBLOCK.EMBALMER ASSISTANT Work Phone: [facility] 07-20-2022 15:15-0400 Body height 156.2 cm Pulm Wstr Work Phone: [facility] 07-20-2022 15:15-0400 Body weight 119.75 kg Pulm Wstr Work Phone: [facility] 07-19-2022 14:43-0400 Body weight 119.75 kg Talia Dias MD Work Phone: [facility] 07-19-2022 14:43-0400 Diastolic blood pressure 84 mm[Hg] Talia Dias MD Work Phone: [facility] 07-19-2022 14:43-0400 Heart rate 75 /min Talia Dias MD Work Phone: [facility] 07-19-2022 14:43-0400 Respiratory rate 18 /min Talia Dias MD Work Phone: [facility] 07-19-2022 14:43-0400 SaO2% (BldA) [Mass fraction] 97 % Talia Dias MD Work Phone: [facility] 07-19-2022 14:43-0400 Systolic blood pressure 138 mm[Hg] Talia Dias MD Work Phone: [facility] 06-01-2022 10:40-0500 Body weight 118.84 kg Joanna Older ARTIST WOODBLOCK.EMBALMER ASSISTANT Work Phone: [facility] 06-01-2022 10:40-0500 Diastolic blood pressure 60 mm[Hg] Joanna Older ARTIST WOODBLOCK.EMBALMER ASSISTANT Work Phone: [facility] 06-01-2022 10:40-0500 Heart rate 68 /min Joanna Older ARTIST WOODBLOCK.EMBALMER ASSISTANT Work Phone: [facility] 06-01-2022 10:40-0500 Respiratory rate 20 /min Joanna Older ARTIST WOODBLOCK.EMBALMER ASSISTANT Work Phone: [facility] 06-01-2022 10:40-0500 SaO2% (BldA) [Mass fraction] 98 % Joanna Older ARTIST WOODBLOCK.EMBALMER ASSISTANT Work Phone: [facility] 06-01-2022 10:40-0500 Systolic blood pressure 114 mm[Hg] Joanna Older ARTIST WOODBLOCK.EMBALMER ASSISTANT Work Phone: [facility] 04-11-2022 16:17-0500 Body weight 118.84 kg Jericho Tinoco MD Work Phone: [facility] 04-11-2022 16:17-0500 Diastolic blood pressure 64 mm[Hg] Jericho Tinoco MD Work Phone: [facility] 04-11-2022 16:17-0500 Heart rate 69 /min Jericho Tinoco MD Work Phone: [facility] 04-11-2022 16:17-0500 Respiratory rate 20 /min Jericho Tinoco MD Work Phone: [facility] 04-11-2022 16:17-0500 SaO2% (BldA) [Mass fraction] 98 % Jericho Tinoco MD Work Phone: [facility] 04-11-2022 16:17-0500 Systolic blood pressure 94 mm[Hg] Jericho Tinoco MD Work Phone: [facility] 03-08-2022 15:35-0400 Body temperature 98.42 [degF] ROBIN RIGGS MD [facility] 03-08-2022 15:35-0400 Diastolic blood pressure 82 mm[Hg] ROBIN RIGGS MD [facility] 03-08-2022 15:35-0400 Heart rate 82 /min ROBIN RIGGS MD [facility] 03-08-2022 15:35-0400 Respiratory rate 16 /min ROBIN RIGGS MD [facility] 03-08-2022 15:35-0400 Systolic blood pressure 154 mm[Hg] ROBIN RIGGS MD [facility] 03-01-2022 10:50-0400 Body weight 120.2 kg Jericho Tinoco MD Work Phone: [facility] 03-01-2022 10:50-0400 Diastolic blood pressure 76 mm[Hg] Jericho Tinoco MD Work Phone: [facility] 03-01-2022 10:50-0400 Heart rate 69 /min Jericho Tinoco MD Work Phone: [facility] 03-01-2022 10:50-0400 Respiratory rate 14 /min Jericho Tinoco MD Work Phone: [facility] 03-01-2022 10:50-0400 SaO2% (BldA) [Mass fraction] 98 % Jericho Tinoco MD Work Phone: [facility] 03-01-2022 10:50-0400 Systolic blood pressure 124 mm[Hg] Jericho Tinoco MD Work Phone: [facility] 01-18-2022 13:02-0400 Body height 156.2 cm Jamilah Memo PA-C Work Phone: [facility] 01-18-2022 13:02-0400 Body weight 121.56 kg Jamilah Memo PA-C Work Phone: [facility] 01-18-2022 13:02-0400 Diastolic blood pressure 68 mm[Hg] Jamilah Memo PA-C Work Phone: [facility] 01-18-2022 13:02-0400 Heart rate 62 /min Jamilah Memo PA-C Work Phone: [facility] 01-18-2022 13:02-0400 Respiratory rate 14 /min Jamilah Memo PA-C Work Phone: [facility] 01-18-2022 13:02-0400 SaO2% (BldA) [Mass fraction] 96 % Jamilah Memo PA-C Work Phone: [facility] 01-18-2022 13:02-0400 Systolic blood pressure 122 mm[Hg] Jamilah Memo PA-C Work Phone: [facility] 01-18-2022 12:46-0400 Body height 156.2 cm Respiratory Wstr Work Phone: [facility] 01-18-2022 12:46-0400 Body weight 121.97 kg Respiratory Wstr Work Phone: [facility] 01-18-2022 12:46-0400 Heart rate 62 /min Respiratory Wstr Work Phone: [facility] 01-18-2022 12:46-0400 Respiratory rate 14 /min Respiratory Wstr Work Phone: [facility] 01-18-2022 12:46-0400 SaO2% (BldA) [Mass fraction] 96 % Respiratory Wstr Work Phone: [facility] Encounters Encounter Date Encounter Type Care Provider Facility Start: 05-14-2023 End: 05-15-2023 ambulatory JERICHO TINOCO Facility:[facility] Start: 05-14-2023 End: 05-14-2023 Patient encounter procedure Seda Quiroz APRN.EMBALMER ASSISTANT Work Phone: Psychiatry Procedures Date Procedure Procedure [...] Activity Detail Author Start: 09-03-2027 Colonoscopy COLONOSCOPY [facility] Start: 09-03-2027 COLORECTAL CANCER SCREENING COLORECTAL CANCER SCREENING [facility] Start: 09-03-2027 Screening for malign ant neoplasm of colon [facility] Start: 08-24-2025 Urine microalbumin profile [facility] Start: 04-12-2024 Glaucoma screening Dilated Retinal E xam [facility] Start: 03-15-2024 Mammography Mammogram Screening [facility] Start: 03-15-2024 Screening for malign ant neoplasm of breast Mammogram Screening [facility] Start: 03-06-2024 Annual PCP Team Lure Maker regan Disease Visit Annual PCP Team Chronic Disease Visit [facility] Start: 03-06-2024 Creatinine measurement Serum Creatin ine [facility] Start: 03-06-2024 Hepatitis B screening Urine Al bumin:Creatinine Ratio [facility] Start: 03-06-2024 Serum Creatinine Serum Creatinine [facility] Start: 11-03-2023 Influenza vaccination Influenza Vacc ine (#1) [facility] Immunizations Immunization Date Immunization Notes Care Provider Fa nestor 04-07-2019 influenza, injectabl e, quadrivalent, contains preservative Jamilah Memo PA-C Work Phone: [facility] 04-07-2019 influenza virus vacc ine, unspecified formulation Seda Quiroz APRN.CNP Work Phone: [facility] 02-04-2018 influenza, high dose seasonal, preservative-free Jamilah Memo PA-C Work Phone: [facility] Work Phone: 02-20-2017 influenza, injectabl e, quadrivalent, contains preservative Jamilah Memo PA-C Work Phone: [facility] 03-02-2016 influenza, injectabl e, quadrivalent, contains preservative Jamilah Memo PA-C Work Phone: [facility] 03-02-2016 pneumococcal polysaccharide vaccine, 23 valent Jamilah Memo PA-C Work Phone: [facility] 08-25-2015 tetanus toxoid, redu wayne diphtheria toxoid, and acellular pertussis vaccine, adsorbed Jamilah Galvan PA-C Work Phone: [facility] 05-26-2015 influenza, injectabl e, quadrivalent, contains preservative Jamilah Galvan PA-C Work Phone: [facility] Payers Date Payer Category Payer Medicaid [facility] MEDICAID MYC ARE [facility] MEDICAID [id number] 2015-Present [phone] [address] [place] [address] Medicaid [id number] 2015 Medicare [id number] [address] [facility] MEDICARE MYC ARE [facility] MEDICARE [id number] 2015-Present [phone] [address] [place] [address] Medicare [id number] 2015 Unknown [id number] 1966 Unknown [id number] 1966 Unknown [id number] Social History Date Type Detail Facility Start: 1981 End: 07-19-2022 Tobacco smoking status NHIS Smokes tobacco daily [facility] Work Phone: Start: 1981 History of tobacco use Cigarette Smo ker [facility] Work Phone: Start: 12-16-2019 End: 09-20-2022 Cigarettes smoked current (pack per day) - Reported 1 [facility] Start: 12-16-2019 End: 07-19-2022 Tobacco use and exposure Smokeless tobacco non-user [facility] Work Phone: Start: 07-17-2021 End: 06-01-2022 Alcohol intake Current drinker of alcohol (finding) [facility] Start: 10-25-2020 History SDOH Alcohol Comment occasional, rarely [facility] Start: 02-22-2020 End: 08-27-2022 History SDOH Financial 5 [facility] Start: 02-22-2020 End: 08-27-2022 History SDOH Food Worry 1 [facility] Start: 02-22-2020 End: 08-27-2022 History SDOH Transport Med 2 [place] [facility] Start: 1965 Sex Assigned At Not on file [facility] Start: 07-07-2021 End: 01-31-2022 Exposure to SARS-CoV-2 (event) Not sure [facility] Start: 12-02-2021 History SDOH Alcohol Comment rare 1 drink [facility] Start: 12-02-2021 End: 08-27-2022 History SDOH Physical Activity DPW 0 [facility] Start: 12-02-2021 End: 01-18-2022 Tobacco Comment from age 16 [facility] Start: 03-05-2019 Tobacco smoking status Heavy t obacco smoker (finding) [facility] Sex Assigned At Sex [facility] Start: 06-22-2022 End: 04-02-2023 Alcohol intake Ex-drinker (finding) [facility] Start: 07-19-2022 Tobacco Comment from age 16. O ne PPD in past. Cut to 1/2 PPD in April [facility] Start: 08-27-2022 History SDOH Social Connections Phone 3 [facility] Start: 08-27-2022 History SDOH Social Connections Living 8 [facility] Start: 08-27-2022 End: 09-20-2022 Social connection and isolation panel [facility] Do you belong to any clubs or organizations such as yazidism groups, unions, fraternal or athletic groups, or school groups? No [facility] Are you now , , , , never or living with a partner? Living with partner [facility] How often to you hav e a drink containing alcohol? Monthly or less [facility] How many standard dr inks containing alcohol do you have on a typical day? 1 or 2 [facility] How often do you hav e 6 or more drinks on 1 occasion? Never [facility] How hard is it for y ou to pay for the very basics like food, housing, medical care, and heating Not hard at all [facility] Do you feel stress - tense, restless, nervous, or anxious, or unable to sleep at night because your mind is troubled all the time - these days [OSQ] To some extent [facility] (I/We) worried wheth er (my/our) food would run out before (I/we) got money to buy more. Never true [facility] Medical Equipment Procedure Code Equipment Code Equipment Origin al Text Equipment Identifier Dates Spacer Avs 4d 8m m Spinal Bone Plug - [id number] Start: 05-30-2019 Phillips Drill Bit 12mm X 23mm [id number] Start: 05-30-2019 Self Starting Variable Screw Size 4.0mm X 14mm [id number] Start: 05-30-2019 Phillips Cervical P late 1-Level 22mm [id number] Start: 05-30-2019 Functional Status Date Assessment Result Facility 03-08-2022 Functional Status Standard Safet y ID band on, Call device within reach, Bed in low position, Wheels locked, Upper/Half-Length side-rails up, Bedside Cart Locked, Safety level maintained [facility] Mental Status Date Assessment Result Facility 03-08-2022 Mental Status Orientation Oriented x 4 [facility]3] Clinical Notes 01-25-2020 to 05-14-2023 Seda Quiroz APRN.CNP - 05/14/2023 9:02 AM Seda Quigley APRN.CNP - 04/02/2023 2:10 PM ESTTelephone Encounter - Michelle Sanchez LPN - 03/19/2023 2:57 PM ESTPatient Instructions Note Date & Type Note Facility 05-14-2023 Note HNO ID: [id number] Author: SEDA QUIROZ APRN.CNP Service: ? Author [...] really hard time sitting in the car. [place] that the car was caving in on [...] myocardial infarction of lateral wall (HCC) 04/04/2022 [facility] Cerebellar mass 1995 mass versus [...] Type 2 diabetes mellitus without complication ([facility]) 03/02/2016 PAST SURGICAL HISTORY Procedure [...] AND/TRANSPOS MEDIAN NRV CARPAL TUNNE Left 08/30/2009 [facility] PAST SURGICAL HISTORY OF 05/30/2019 C5-[address] Grace Long PT ED HEART AND VASCULAR Cardiac Stent [facility] 11/30/22 S PROBE PERC LUMBAR DISCECTOMY 04/2000 [facility] Current Outpatient Medications Medication Sig [...] 3 escitalopram o (more content not included)... [facility] 05-14-2023 History of Presen t [...] really hard time sitting in the car. [place] that the car was caving in on [...] myocardial infarction of lateral wall (HCC) 04/04/2022 [facility] Cerebellar mass 1995 mass versus [...] Type 2 diabetes mellitus without complication ([facility]) 03/02/2016 PAST SURGICAL HISTORY Procedure [...] &/TRANSPOS MEDIAN NRV CARPAL TUNNE Left 08/30/2009 [facility] PAST SURGICAL HISTORY OF 05/30/2019 C5-[address] Grace Long PT ED HEART AND VASCULAR Cardiac Stent [facility] 04/04/22 S PROBE PERC LUMBAR DISCECTOMY 04/2000 [facility] Current Outpatient Medications Medication Sig [...] REVIEWED: Psychiatric scales, Electronic medical record, and Customer Care Specialist notes DIAGNOSIS: Bipolar disorder, currently depressed, moderate [...] which included preparing to see the patient, [id number] patient care, completing clinical documentation, obtaining and/or [...] TIME: 9:03 AM documented in this encounter [facility] 04-02-2023 Note HNO ID: [id number] Author: Seda Quiroz APRN.CNP Service: ? Author [...] struggling with shortness of breath. Saw her hospice administrator and was notified that her lung function was normal. Has been following up with her slot ambassador. Had to take Nitro due to chest [...] Acute myocardial infarction of lateral wall ([facility]) 04/04/2022 [facility] Cerebellar mass 1995 mass versus infarct Cervical cord compression with myelopathy ([facility]) 05/28/2019 Depression 04/11/2015 Disc degeneration, [...] Type 2 diabetes mellitus without complication ([facility]) 03/02/2016 PAST SURGICAL HISTORY Procedure [...] AND/TRANSPOS MEDIAN NRV CARPAL TUNNE Left 08/30/2009 [facility] PAST SURGICAL HISTORY OF 05/30/2019 C5-[address] Grace Long PT ED HEART AND VASCULAR Cardiac Stent [facility] 04/04/22 S PROBE PERC LUMBAR DISCECTOMY 04/2000 [facility] Current Outpatient Medications Medication Sig [...] 1 tablet by (more content not included)... [facility] 04-02-2023 History of Presen t [...] struggling with shortness of breath. Saw her hospice administrator and was notified that her lung function was normal. Has been following up with her slot ambassador. Had to take Nitro due to chest [...] myocardial infarction of lateral wall (HCC) 04/04/2022 [facility] Cerebellar mass 1995 mass versus [...] &/TRANSPOS MEDIAN NRV CARPAL TUNNE Left 08/30/2009 [facility] PAST SURGICAL HISTORY OF 05/30/2019 C5-[address] Grace Long PT ED HEART AND VASCULAR Cardiac Stent [facility] 04/04/22 S PROBE PERC LUMBAR DISCECTOMY 04/2000 [facility] Current Outpatient Medications Medication Sig [...] which included preparing to see the patient, [id number] patient care, completing clinical documentation, obtaining and/or [...] TIME: 2:10 PM documented in this encounter [facility] 03-19-2023 Miscellaneous Notes Patient [...] for last apt. documented in this encounter [facility] 03-15-2023 Note HNO ID: [id number] Author: Marta Mosqueda RT(R) Service: ? Author [...] RT Arias(R) March 15, 2023 1:24 PM [facility] 03-11-2023 Miscellaneous Notes Patient has [...] Gricelda Duckworth LPN. documented in this encounter [facility] 03-07-2023 Note HNO ID: [id number] Author: Aron Navarro Service: ? Author Type: [...] RTC in 3-4 months. Aron Navarro DPM [facility] 03-07-2023 Note HNO ID: [id number] Author: Pepper Estrada LPN Service: ? Author Type: LICENSED NURSE Type: Progress Notes Filed: 03/08/2023 10:31 PM Note Text: AMB ROOMING INTAKE FLOWSHEET DATA Patient presents with: Left Foot - Established Patient, Diabetic Foot Care Right Foot - Established Patient, Diabetic Foot Care Pepper Estrada LPN [facility] 03-06-2023 Note HNO ID: [id number] Author: Jericho Tinoco MD Service: ? Author Type: Physician Type: Progress Notes Filed: 03/06/2023 12:34 PM Note Text: This note was created using Reclut[employer]. Subjective Juan Eagle is a 58 year old female. She's been dealing with right wrist pain for about 2 months, with no injury. She reported taking up to 12 ibuprofen per day. Pain was worse with movement. Bracing helped some. X rays showed no acute findings. Her joints have been hurting more in general. 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 scroll saw operator in [place], so had been off Humira for more [...] (Bmi) of 50.0 to 59.9 in Adult ([facility]) Persistent Headaches S/P Cervical Spinal Fusion Tobacco Use Disorder Moderate Persistent Asthma Without Complication Psoriatic Arthritis ([facility]) Irritable Bowel Syndrome With Diarrhea Stage 3a Chronic Kidney Disease ([facility]) Coronary Artery Disease Involving [place] Coronary Artery of [place] Heart Without Angina Pectoris St Elevation Myocardial Infarction Involving Left Circumflex Coronary Artery ([facility]) Ischemic Cardiomyopathy Encounter for Long-Term (Current) Use of Medications Bipolar Disorder ([facility]) Ptsd (Post-Traumatic Stress Disorder) Dyskinesia, [...] She is aler (more content not included)... [facility] 03-06-2023 History of Presen t illness Narrative This note was created using Sol[employer]istar[employer]. Subjective Juan Eagle is a 58 year old female. She's been dealing with right wrist pain for about 2 months, with no injury. She reported taking up to 12 ibuprofen per day. Pain was worse with movement. Bracing helped some. X rays showed no acute findings. Her joints have been hurting more in general. 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 scroll saw operator in [place], so had been off Humira for more [...] Mellitus With Stage 3a Chronic Kidney Disease ([facility]) Mixed Hyperlipidemia Jose On Cpap Radiculopathy, Lumbar Region Postlaminectomy Syndrome Ddd (Degenerative Disc Disease), Lumbar Edema Class 3 Severe Obesity With Body Mass Index (Bmi) of 50.0 to 59.9 in Adult ([facility]) Persistent Headaches S/P Cervical Spinal Fusion Tobacco Use Disorder Moderate Persistent Asthma Without Complication Psoriatic Arthritis ([facility]) Irritable Bowel Syndrome With Diarrhea Stage 3a Chronic Kidney Disease ([facility]) Coronary Artery Disease Involving [place] Coronary Artery of [place] Heart Without Angina Pectoris St Elevation Myocardial Infarction Involving Left Circumflex Coronary Artery ([facility]) Ischemic Cardiomyopathy Encounter for Long-Term (Current) Use of Medications Bipolar Disorder ([facility]) Ptsd (Post-Traumatic Stress Disorder) Dyskinesia, [...] Jericho Tinoco MD documented in this encounter [facility] 02-20-2023 Miscellaneous Notes Message to call office. Message to call office. Message to call office. Last: 01/15/2023 Noted-follow up 4 weeks 02/12/2023-cx'd by patient Covid exposure Next: NA documented in this encounter [facility] 01-21-2023 Note HNO ID: [id number] Author: Jamilah Galvan PA-C Service: ? Author Type: Physician Cloud Services Architect Type: Progress Notes Filed: 01/21/2023 1:28 PM Note Text: Patient: Juan Eagle PCP: Jericho Tinoco MD CC: follow up HPI: Juan Eagle 57 year old morbidly obese female current 44-dsmy-bpxr smoker with PMH significant for GERD, HLD, JOSE on CPAP, DM2, MO in March 2022 coded 3 times s/p [...] all sleep. DME: Medical Service. Follow with [facility]. PAST MEDICAL HISTORY Diagnosis Date Acute myocardial infarction of lateral wall ([facility]) 04/04/2022 [facility] Cerebellar mass 1995 mass versus infarct Cervical cord compression with myelopathy ([facility]) 05/28/2019 Depression 04/11/2015 Disc degeneration, [...] 12/05/2015 Stage 3b chronic kidney disease ([facility]) 12/04/2021 Type 2 diabetes mellitus without complication ([facility]) 03/02/2016 Allergies: Codeine Other: See [...] PAST SURGICAL HISTOR (more content not included)... [facility] 01-21-2023 History of Presen t illness Narrative Images from the original note were not included. Patient: Juan Eagle PCP: Jericho Tinoco MD CC: follow up HPI: Juan Eagle 57 year old morbidly obese female current 96-fqgk-szxk smoker with PMH significant for GERD, HLD, JOSE on CPAP, DM2, MO in March 2022 coded 3 times s/p [...] all sleep. DME: Medical Service. Follow with [facility]. PAST MEDICAL HISTORY Diagnosis Date Acute myocardial infarction of lateral wall (HCC) 04/04/2022 [facility] Cerebellar mass 1995 mass versus [...] &/TRANSPOS MEDIAN NRV CARPAL TUNNE Left 08/30/2009 [facility] PAST SURGICAL HISTORY OF 05/30/2019 C5-[address] Grace Long PT ED HEART AND VASCULAR Cardiac Stent [facility] 04/04/22 S PROBE PERC LUMBAR DISCECTOMY 04/2000 [facility] I reviewed the past medical [...] Jamilah Galvan PA-C documented in this encounter [facility] 01-15-2023 Miscellaneous Notes Medication sent to [facility] does have this medication in stock, Patient aware you will send there. [facility] calls to report that Ingrezza is a specialty medication and [facility] cannot get that med. Will need to try somewhere else. Elham Graves LPN documented in this encounter [facility] 01-15-2023 Note HNO ID: [id number] Author: Cassie Kendrick RT(R) Service: Radiology Author [...] Kendrick RT(R) January 15, 2023 9:25 AM [facility] 01-15-2023 Note HNO ID: [id number] Author: Fidel Bazan APRN.EMBALMER ASSISTANT Service: ? Author Type: Nurse Practitioner Type: [...] Acute myocardial infarction of lateral wall ([facility]) 04/04/2022 [facility] Cerebellar mass 1995 mass versus infarct Cervical cord compression with myelopathy ([facility]) 05/28/2019 Depression 04/11/2015 Disc degeneration, [...] Type 2 diabetes mellitus without complication ([facility]) 03/02/2016 PAST SURGICAL HISTORY Procedure [...] AND/TRANSPOS MEDIAN NRV CARPAL TUNNE Left 08/30/2009 [facility] PAST SURGICAL HISTORY OF 05/30/2019 C5-[address] Grace Long PT ED HEART AND VASCULAR Cardiac Stent [facility] 04/04/22 S PROBE PERC LUMBAR DISCECTOMY 04/2000 [facility] ALLERGIES Codeine, Seroquel [Quetiapine], Vraylar [...] Hypertension Sister B (more content not included)... [facility] 01-15-2023 Note HNO ID: [id number] Author: Seda Quiroz APRN.EMBALMER ASSISTANT Service: ? Author Type: Nurse Practitioner Type: [...] Ideations: No homicidal (more content not included)... [facility] 01-15-2023 Instructions Seda Quiroz, LEONELA.DAYANARA - 01/15/2023 9:08 AM EDT Aziza Pearson, It was good to talk with you today. Below is a summary of the plan that we discussed during your appointment for reference. Of course, if you have any questions or concerns do not hesitate to reach out to me via a message or call. Seda Reynoso APRN.EMBALMER ASSISTANT PLAN AND FOLLOW UP: YOU SHOULD SEEK [...] - Call the National Suicide Hotline at 0-334-PKHUINK ( ) or 3-076-616-TALK (3921) - Text 4HOPE to 322932 Medication Update: Lamictal 200 mg - take 1/2 tablet in the morning and 1 tablet in the evening. Ingrezza 40 mg - take 1 capsule every morning. Continue the rest of your psychiatric medications at the same dose. Next appointment: February 12 at 9:30 am in person -- You may call the department appointment line at [phone] to schedule your appointment. -- Please call my nurse Michelle at [phone] or send me a message in [email or web address] with any questions or concerns between appointments. documented in this encounter [facility] 01-15-2023 History of Presen [...] referral for the patient to contact in [place]. Follow up in 4 weeks. Medication Update: [...] which included preparing to see the patient, kixc-nd-qexh patient care, completing clinical documentation, and counseling and educating the patient/family/caregiver, ordering medications/labs. Seda Quiroz APRN.EMBALMER ASSISTANT January 15, 2023 8:23 AM This note was partially generated using [employer] voice recognition system. Note was reviewed for accuracy. There may be minor misspellings or grammar miscues with [employer] voice recognition. documented in this encounter [facility] 12-04-2022 Note HNO ID: [id number] Author: Aron Navarro Service: ? Author Type: [...] Acute myocardial infarction of lateral wall ([facility]) 04/04/2022 [facility] Cerebellar mass 1995 mass versus infarct Cervical cord compression with myelopathy ([facility]) 05/28/2019 Depression 04/11/2015 Disc degeneration, [...] Type 2 diabetes mellitus without complication ([facility]) 03/02/2016 Current Outpatient Medications Medication [...] AND/TRANSPOS MEDIAN NRV CARPAL TUNNE Left 08/30/2009 [facility] PAST SURGICAL HISTORY OF 05/30/2019 C5-[address] Grace Long PT ED HEART AND VASCULAR Cardiac Stent [facility] 04/04/22 S PROBE PERC LUMBAR DISCECTOMY 04/2000 [facility] FAM (more content not included)... [facility] 12-04-2022 Note HNO ID: [id number] Author: Pepper Estrada LPN Service: ? Author Type: LICENSED NURSE Type: Progress Notes Filed: 12/05/2022 6:45 AM Note Text: AMB ROOMING INTAKE FLOWSHEET DATA Patient presents with: Left Foot - Established Patient, Diabetic Foot Care Right Foot - Established Patient, Diabetic Foot Care Pepper Estrada LPN [facility] 12-04-2022 Instructions Aron Navarro - [...] (or decreased sensation in your feet) a gristmill operator should always cut your toenails. Be Careful [...] Go to your health care provider or gristmill operator to treat these conditions. documented in this encounter [facility] 12-04-2022 History of Presen [...] myocardial infarction of lateral wall (HCC) 04/04/2022 [facility] Cerebellar mass 1995 mass versus [...] &/TRANSPOS MEDIAN NRV CARPAL TUNNE Left 08/30/2009 [facility] PAST SURGICAL HISTORY OF 05/30/2019 C5-[address] Grace Long PT ED HEART AND VASCULAR Cardiac Stent [facility] 04/04/22 S PROBE PERC LUMBAR DISCECTOMY 04/2000 [facility] FAMILY HISTORY Problem Relation Age [...] Objective: Patient presents to clinic ambulating in [facility] Constitutional: Pt is a well [...] diabetes mellitus due to underlying condition ([facility]) (primary encounter diagnosis) (L84) Callus [...] Pepper Estrada LPN documented in this encounter [facility] 11-16-2022 Miscellaneous Notes Letter [...] a letter and it needs faxed to [phone]. Sofi Carrion RN documented in this encounter [facility] 11-07-2022 Note Patient Outreach (IN [facility]) JUAN EAGLE ([id number]) 1965 F CHT Date Time Provider Department [...] Date Reviewed: 08/28/2022 Reviewed by: Joanna Arce APRN.EMBALMER ASSISTANT - Fully Assessed Visit Diagnosis:Encounter for screening mammogram for breast cancer [Z12.31] Order(s):[facility] SCREENING [[id number]] Order #: [id number] FUTURE Prescriptions as of 11/12/2022 - dulaglutide [...] (HCC) [N18.31] 12/04/2021 Coronary artery disease involving [place] andre*04/11/2022 ST elevation myocardial infarction involving le*04/11/2022 Ventricular fibrillation (HCC) [I49.01] 04/11/2022 08/28/2022 Ischemic cardiomyopathy [I25.5] 04/11/2022 Encounter for long-term (current) use of medica*07/01/2022 Bipolar disorder (HCC) [F31.9] 07/01/2022 PTSD (post-traumatic stress disorder) [F43.10] 07/01/2022 Dys (more content not included)... [facility] 09-20-2022 Note HNO ID: [id number] Author: Seda Quiroz APRN.EMBALMER ASSISTANT Service: ? Author Type: Nurse Practitioner Type: [...] visit. Either the patient or their legal administrative representative has been informed of the risks [...] which included preparing to see the patient, xdqs-yy-aehx patient care, completing clinical documentation, and counseling and educating the patient/family/caregiver, ordering medications/labs. Seda Quiroz APRN.CNP September 20, 2022 10:20 AM This note was partially generated using [employer] voice recognition system. Note was reviewed for accuracy. There may be minor misspellings or grammar miscu (more content not included)... [facility] 08-29-2022 Miscellaneous Notes Below results left on identified vm. Gricelda Duckworth LPN ----- Message from Joanna Arce APRN.CNP sent at 08/29/2022 8:41 AM EDT ----- Please let the patient know HgbA1c was 5.7, diabetes well controlled. Kidney function stable. The rest of her labs were within acceptable limits documented in this encounter [facility] 08-28-2022 Note HNO ID: [id number] Author: Joanna Arce APRN.CNP Service: ? Author [...] Acute myocardial infarction of lateral wall ([facility]) 04/04/2022 [facility] Cerebellar mass 1995 mass versus infarct Cervical cord compression with myelopathy ([facility]) 05/28/2019 Depression 04/11/2015 Disc degeneration, [...] Type 2 diabetes mellitus without complication ([facility]) 03/02/2016 PAST SURGICAL HISTORY Procedure [...] AND/TRANSPOS MEDIAN NRV CARPAL TUNNE Left 08/30/2009 [facility] PAST SURGICAL HISTORY OF 05/30/2019 C5-[address] Grace Long PT ED HEART AND VASCULAR Cardiac Stent [facility] 04/04/22 S PROBE PERC LUMBAR DISCECTOMY 04/2000 [facility] ALLERGIES Codeine, Seroquel [Quetiapine], Vraylar [...] Inhalation as instruct (more content not included)... [facility] 08-23-2022 Note HNO ID: [id number] Author: Seda Quiroz APRN.EMBALMER ASSISTANT Service: ? Author Type: Nurse Practitioner Type: [...] visit. Either the patient or their legal administrative representative has been informed of the risks [...] and Lamictal at the same dose. 3. B2B Sales Executive Dr. Savage consulted about restarting benzodiazepines. He [...] intent or plan (more content not included)... [facility] 08-23-2022 Instructions Seda Quiroz APRN.CNP [...] - Call the National Suicide Hotline at 6-400-UCPOYWC ( ) or 6-704-520-TALK (9785) - Text 4HOPE to 274550 Medication Update: Lamictal 200 mg - take 1 tablet once daily. Continue the other psychiatric medications at the same dose. Next appointment: September 20 at 10:30 am Virtual -- Please call my nurse Michelle at [phone] or send me a message in [email or web address] with any questions or concerns between appointments. documented in this encounter [facility] 08-23-2022 History of Presen [...] visit. Either the patient or their legal administrative representative has been informed of the risks [...] and Lamictal at the same dose. 3. B2B Sales Executive Dr. Savage consulted about restarting benzodiazepines. He [...] which included preparing to see the patient, dpnd-ko-ugbd patient care, completing clinical documentation, and counseling and educating the patient/family/caregiver, ordering medications/labs. Seda Quiroz APRN.CNP August 23, 2022 8:03 AM This note was partially generated using [employer] voice recognition system. Note was reviewed for accuracy. There may be minor misspellings or grammar miscues with [employer] voice recognition. documented in this encounter [facility] 07-20-2022 Note HNO ID: [id number] Author: FLASH Caceres Service: ? Author Type: Respiratory Therapist Type: Progress Notes Filed: 07/20/2022 3:28 PM Note Text: PULM FUNCTION SMARTBLOCK: Provider: Talia Dias MD Assisting Tech: FLASH Caceres Spirometry: 1 [facility] 07-20-2022 History of Presen t illness Narrative PULM FUNCTION SMARTBLOCK: Provider: Talia Dias MD Assisting Tech: FLASH Caceres Spirometry: 1 documented in this encounter [facility] 07-19-2022 Note HNO ID: [id number] Author: Talia Dias MD Service: ? Author Type: Physician Type: Progress Notes Filed: 07/19/2022 4:06 PM Note Text: . [facility] [place] Note Patient name: Juan Eagle PCP: Jericho Tinoco MD CC: Shortness of breath HPI: Juan Eagle 57 year old morbidly obese female current 11-nlpk-xxrc smoker with PMH significant for GERD, HLD, JOSE on CPAP, DM2, psoriatic arthritis and asthma, former patient of Dr. Christensen, new to me. Current therapy consists of Breo Ellipta and as needed albuterol. No issues with her Breo Ellipta. Has had relatively good control of her asthma until recently. Status post MO at the end of March, coded 3 [...] Acute myocardial infarction of lateral wall ([facility]) 04/04/2022 [facility] Cerebellar mass 1995 mass versus infarct Cervical cord compression with myelopathy ([facility]) 05/28/2019 Depression 04/11/2015 Disc degeneration, [...] 12/05/2015 Stage 3b chronic kidney disease ([facility]) 12/04/2021 Type 2 diabetes mellitus without complication ([facility]) 03/02/2016 ALLERGIES Allergen Reactions Codeine [...] once daily. albuterol (more content not included)... [facility] 07-19-2022 History of Presen t illness Narrative Images from the original note were not included. . [facility] [place] Note Patient name: Juan Eagle PCP: Jericho Tinoco MD CC: Shortness of breath HPI: Juan Eagle 57 year old morbidly obese female current 68-wlfz-aygg smoker with PMH significant for GERD, HLD, JOSE on CPAP, DM2, psoriatic arthritis and asthma, former patient of Dr. Christensen, new to me. Current therapy consists of Breo Ellipta and as needed albuterol. No issues with her Breo Ellipta. Has had relatively good control of her asthma until recently. Status post MO at the end of March, coded 3 [...] myocardial infarction of lateral wall (HCC) 04/04/2022 [facility] Cerebellar mass 1995 mass versus [...] &/TRANSPOS MEDIAN NRV CARPAL TUNNE Left 08/30/2009 [facility] PAST SURGICAL HISTORY OF 05/30/2019 C5-[address] Grace Long PT ED HEART AND VASCULAR Cardiac Stent [facility] 04/04/22 S PROBE PERC LUMBAR DISCECTOMY 04/2000 [facility] PMH, Social history, family history [...] poor control of asthma 4. Cigarette smoker -00-jeju-lfyk smoker without sequelae of COPD -Smoking cessation recommended -PCP already referred patient to lung cancer screening clinic Talia Dias MD [facility] [place] documented in this encounter [facility] 06-28-2022 Miscellaneous Notes Amitriptyline [...] Jamilah Gotti Pss documented in this encounter [facility] 06-28-2022 Miscellaneous Notes Pt called in stating she could not refill her Breo inhaler d/t pharmacy did not have refill orders. Call to [facility] to verify our order states 11 refills. Agnes, at [facility] states they are in the process of refilling Rx for pt and not sure where the miscommunication happened and states there are plenty of refills for pt. Returned call to pt to notify M with detailed message. documented in this encounter [facility] 06-22-2022 Miscellaneous Notes Nurse from [facility] did not contact patient. Patient is returning a call she received from nurse Loaiza. Please contact the patient again. documented in this encounter [facility] 06-22-2022 Note HNO ID: [id number] Author: Seda Quiroz APRN.EMBALMER ASSISTANT Service: ? Author Type: Nurse Practitioner Type: [...] she was in the car driving to [place]. She continues to take Lexapro and Lamictal. [...] Vrylar (TD). She was on the [employer] [place] that it helped with TD for the [...] AND/TRANSPOS MEDIAN NRV CARPAL TUNNE Left 08/30/2009 [facility] PAST SURGICAL HISTORY OF 05/30/2019 C5-[address] Grace Long S PROBE PERC LUMBAR DISCECTOMY 04/2000 [facility] Current Outpatie (more content not included)... [facility] 06-22-2022 Instructions Seda Quiroz APRN.DAYANARA [...] a message or call. Best, Seda Quiroz APRN.EMBALMER ASSISTANT PLAN AND FOLLOW UP: YOU SHOULD SEEK [...] - Call the National Suicide Hotline at 2-398-OHLCNNH ( ) or 5-842-098-TALK (3162) - Text 8TAGT to 346413 Medication Update: - Restart Ambien 10 mg - take 1 tablet at bedtime to help with sleep. - Continue Lexapro and Lamictal at the same dose. Other: I left a message with your B2B Sales Executive's nurse Disha. She will fax over the latest EKG results from May so you don't have to do the EKG. She will call me back after speaking with Dr. Savage about the medications. Next appointment: --Schedule in 3 to 4 weeks or sooner if needed -- You may call the department appointment line at [phone] to schedule your appointment. -- Please call my nurse Michelle at [phone] or send me a message in [email or web address] with any questions or concerns between appointments. documented in this encounter [facility] 06-22-2022 History of Presen [...] she was in the car driving to [place]. She continues to take Lexapro and Lamictal. [...] Vrylar (TD). She was on the [employer] [place] that it helped with TD for the [...] &/TRANSPOS MEDIAN NRV CARPAL TUNNE Left 08/30/2009 [facility] PAST SURGICAL HISTORY OF 05/30/2019 C5-[address] Grace Long S PROBE PERC LUMBAR DISCECTOMY 04/2000 [facility] Current Outpatient Medications Medication Sig [...] Previously followed by Jason Mendoza at the [facility] Therapist: Previously saw a therapist at the counseling center but they reported that she had graduated from it. Last engaged in therapy 4 years ago. Current Harness Fitter: No Last Hospitalization: None ECT: No [...] history of use or dependence SPIRITUALITY: Cyndi [facility]: Juan Eagle is the 2nd of 5 siblings. The patient was born and raised in [place], [place]. She completed High school, Technical. She [...] and Lamictal at the same dose. 3. B2B Sales Executive Dr. Savage consulted about restarting benzodiazepines. He [...] which included preparing to see the patient, ymoh-et-zueb patient care, completing clinical documentation, obtaining and/or [...] AM PAGER : documented in this encounter [facility] 06-01-2022 Note HNO ID: [id number] Author: Joanna Arce APRN.CNP Service: ? Author [...] AND/TRANSPOS MEDIAN NRV CARPAL TUNNE Left 08/30/2009 [facility] PAST SURGICAL HISTORY OF 05/30/2019 C5-[address] Grace Long S PROBE PERC LUMBAR DISCECTOMY 04/2000 [facility] ALLERGIES Codeine, Seroquel [Quetiapine], Vraylar [...] daily. Per Counseling (more content not included)... [facility] 06-01-2022 History of Presen t [...] &/TRANSPOS MEDIAN NRV CARPAL TUNNE Left 08/30/2009 [facility] PAST SURGICAL HISTORY OF 05/30/2019 C5-[address] Grace Long S PROBE PERC LUMBAR DISCECTOMY 04/2000 [facility] ALLERGIES Codeine, Seroquel [Quetiapine], Vraylar [...] psychiatrist. She is interested in seeing F fifth hand. - CONSULT TO PSYCHIATRY 2. Insomnia, unspecified type - ICD9: 780.52, ICD10: G47.00 See above. Increase Elavil to 50 mg at bedtime 3. Panic anxiety syndrome - ICD9: 300.01, ICD10: F41.0 See above. 4. Coronary artery disease involving [place] tribes coronary artery of grand [place] tribes heart without angina pectoris - ICD9: 414.01, [...] Joanna Arce APRN.CNP documented in this encounter [facility] 04-12-2022 Miscellaneous Notes After appt 04/11/22 pcp is asking for med profile from [facility]. Called [facility]. They are not able to do this. Pt will need to come to their store and request this. Message left to pt with this info Called [place]. Message left with same request. documented in this encounter [facility] 04-11-2022 History of Presen t illness Narrative This note was created using [employer]. Subjective Transitional Care Management Progress Note The patients TCM visit was performed within the 7 days of discharge. Patient's Date of discharge: 04/06/2022 Date of initial coordinator contact after discharge: 04/09/2022 Discharge diagnosis: Acute MO. Cardiac arrest. Medication review completed Yes Jericho [...] Kidney Disease (Hcc) Coronary Artery Disease Involving [place] Coronary Artery of [place] Heart Without Angina Pectoris St Elevation Myocardial [...] &/TRANSPOS MEDIAN NRV CARPAL TUNNE Left 08/30/2009 [facility] PAST SURGICAL HISTORY OF 05/30/2019 C5-[address] Grace Long S PROBE PERC LUMBAR DISCECTOMY 04/2000 [facility] Social History Tobacco Use Smoking [...] I49.01 - In the setting of acute MO. 3. Coronary artery disease involving grand [place] tribes coronary artery of grand [place] tribes heart without angina pectoris - ICD9: 414.01, [...] Jericho Tinoco MD documented in this encounter [facility] documented as of this encounter (statuses as of 08/29/2022) [facility] History of Past illness [...] of this encounter (statuses as of 11/12/2022) [facility] [facility] History of Past illness [...] of this encounter (statuses as of 11/16/2022) [facility] History of Past illness [...] of this encounter (statuses as of 12/05/2022) [facility] History of Past illness [...] of this encounter (statuses as of 01/15/2023) [facility] History of Past illness [...] of this encounter (statuses as of 01/15/2023) [facility] History of Past illness [...] of this encounter (statuses as of 01/21/2023) [facility] History of Past illness [...] of this encounter (statuses as of 02/09/2023) [facility] History of Past illness [...] of this encounter (statuses as of 02/13/2023) [facility] History of Past illness [...] of this encounter (statuses as of 02/20/2023) [facility] History of Past illness [...] of this encounter (statuses as of 03/06/2023) [facility] History of Past illness [...] of this encounter (statuses as of 03/12/2023) [facility] History of Past illness [...] of this encounter (statuses as of 03/20/2023) [facility] History of Past illness [...] of this encounter (statuses as of 04/08/2023) [facility] History of Past illness [...] of this encounter (statuses as of 05/20/2023) [facility] History of Present illness Narrative* Brigette Fregoso LPN - 04/09/2022 3:16 PM EST TRANSITION CARE MANAGEMENT (TCM) INITIAL CONTACT Loan Documentation Specialist Outreach Provider Action/FYI: Apt has been scheduled [...] records if not received [facility] Hospital Discharge instructions Patient [...] leg Difficulty speaking, swallowing or walking Seizure [id number] [employer] [place] [address], [place] [address]. All rights reserved. This information is not intended as a substitute for professional medical care. Always follow yourhealthcare professional's instructions. Follow Up Care 03/08/2022 15:34:05 With:JERICHO TINOCO MD Address: [address] [place] [address]- When:2-4 days [facility] 11-03-2022 Emergency department Discharge summary Discharge Instructions Thank you for allowing [facility] to assist you with your healthcare needs. The following is importantdischarge information regarding your hospital visit. Diagnosis from Today's Visit Shingles Rash What to Do Next Instructions from Your Care Team No qualifying data available. Post Acute Orders No qualifying data available. You Need to Schedule the Following Appointments Follow Up with JERICHO TINOCO MD When Within 2-4 days Where: [address], [place] [id number]- Allergies Dilaudid Percocet 5/325 SEROquel codeine traMADol [...] Duration: 7 Days Printed Prescription Changed acetaminophen-hydrocodone ([place] 325- 5 mg oral tablet) 1 tab(s) by mouth Two (2) times a day Changed acetaminophen-hydrocodone ([place] 325- 5 mg oral tablet) 1 tab(s) [...] leg Difficulty speaking, swallowing or walking Seizure [id number] [employer] [place], [place] [id number]. All rights reserved. This information is not intended as a substitute for professional medical care. Always follow yourhealthcare professional's instructions. Additional Information VACCINATE! IT SAVES LIVES! Members of the community who have not yet received the COVID-19 vaccine and would like to receive it can visit one of [facility] vaccine clinics. There are many vaccine clinic locations within the [facility]. For locations and available times, please visit [email or web address]. It is important to note that some COVID mobile vaccine clinics are held outdoors and may be canceled in rainy orstormy conditions. To learn more about pediatric vaccinations (ages 5-11), we invite you to visit the [facility] webpage. [email or web address] learn more about the COVID-19 vaccine, we invite you to visit the [facility] website for a list of frequently asked questions. [email or web address] [facility] [employer] Patient Portal Access Instructions: Stay connected with your healthcare team and access your personal medical information anytime with the [employer] Patient Portal. If you would like a full copy of your medical records please contact the [facility] Medical Records Department Saturday through Saturday between 8a.m. and 4:30p.m. Please follow the directions below to access the portal: 1.Access the email account you provided upon registration to the [facility].2.Look for an invitation email from [facility].3.Open the email and access the invitation link: Accept Invitation to [facility] [employer]4.Fill in the required alamo to create your account. Sign into [email or web address] with your username and password that you [...] you will allow to register on the [employer] Patient Portal for access to your information. You can also access the [employer] Patient Portal on the [employer] dasha. Simply click on Health Records under [employer] and then click on the [employer] logo. HOW TO SAFELY DISPOSE OF PRESCRIPTION [...] Call your local pharmacy or go to [email or web address] to find one close to you.3.Make use of household items: Use cat litter or old coffee grounds to dispose medications if other options arenot available. Mix your drugs with these household products, seal them in an airtight container andthrow it into the garbage. Call [facility]: [phone] to be sure your drugs can be [...] aware that I should contact my doctor. Patient/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 And Tester Signature: Date/Time: Relationship to Patient: Witness Name/Signature: Date/Time: [facility]10-27-2022 History of Present illness Narrative * [...] intervention Jericho Tinoco MD [facility] note* Diagnosis Type [...] obesity type (HCC) documented in this encounter [facility]10-21-2022 Miscellaneous Notes* Telephone Encounter - Jericho Tinoco MD - 02/23/2022 1:08 PM EDT documented in [facility] Nurse Note* Peggy Diaz LPN - 01/18/2022 1:01 PM EDT Intake information documented in the prior visit with FLASH Caceres today. documented in this encounter[facility] Procedure note* FLASH Caceres [...] 2022 TIME: 12:58 PM documented in this encounterCh[facility] History of Present illness Narrative* FLASH Caceres - 01/18/2022 12:45 PM EDT PULM FUNCTION SMARTBLOCK: Provider: Jamilah Galvan PA-C Assisting Tech: FLASH Caceres Spirometry: 1 Exhaled Nitric Oxide: 1 documented in this encounterCh[facility] History of Present illness Narrative* Jamilah Galvan PA-C - 01/18/2022 12:45 PM EDT [facility] [place], 01/18/2022: Name: Juan Eagle : 1965 The [...] FEF75 (L/sec) 0.69 0.28 1.54 0.92 133 JWJ15-42 (L/sec) 2.32 1.24 3.74 2.57 110 PEF [...] answers. Jamilah Galvan PA-C documented in this encounterCh[facility]08-[facility] Miscellaneous Notes* Telephone Encounter [...] 3rd stage renal failure. documented in this encounterCh[facility]03-18-[facility]22 Miscellaneous Notes* Telephone Encounter - Brigette Linares - 07/21/2021 11:21 AM EDT Patient electronically requesting refills as follows: Pending Prescriptions Disp Refills LANSOPRAZOLE 30 MG CAPSULE,DELAYED RELEASE 90 capsule 3 Sig: Take 1 capsule by mouth once daily. AURY: No Please review and advise. Brigette Linares documented in this encounterCh[facility]09[facility] History of Past illness [...] of this encounter (statuses as of 12/04/2021) [facility] History of Past illness [...] of this encounter (statuses as of 12/04/2021) [facility] History of Past illness [...] of this encounter (statuses as of 01/18/2022) [facility] History of Past illness [...] of this encounter (statuses as of 01/18/2022) [facility] History of Past illness [...] of this encounter (statuses as of 02/23/2022) [facility] History of Past illness [...] of this encounter (statuses as of 03/01/2022) [facility] History of Past illness [...] of this encounter (statuses as of 04/12/2022) [facility] History of Past illness [...] of this encounter (statuses as of 04/12/2022) [facility] History of Past illness [...] of this encounter (statuses as of 04/13/2022) [facility] History of Past illness [...] of this encounter (statuses as of 06/01/2022) [facility] History of Past illness [...] of this encounter (statuses as of 06/22/2022) [facility] History of Past illness [...] of this encounter (statuses as of 06/28/2022) [facility] History of Past illness [...] of this encounter (statuses as of 07/01/2022) [facility] History of Past illness [...] of this encounter (statuses as of 07/01/2022) [facility] History of Past illness [...] of this encounter (statuses as of 07/19/2022) [address]21-2021 History of Past illness Narrative* Problem [...] of this encounter (statuses as of 07/20/2022) [facility] History of Past illness [...] of this encounter (statuses as of 08/23/2022) [facility] History of Past illness Narrative* Problem Noted Date Resolved Date BMI 45.0-49.9, adult 01/25/2020 03/20/2021 Thumb tendonitis 01/20/2016 02/20/2017 Osteoarthritis of lumbar spine 12/05/2015 1 Depression 04/11/2015 08/10/2017 Low back pain 04/11/2015 02/20/2017 Gastroesophageal reflux disease without esophagi tis 04/11/2015 12/16/2019 documented as of this encounter (statuses as of 07/24/2021) [facility] History of Past illness Narrative* Problem Noted Date Resolved Date BMI 45.0-49.9, adult 01/25/2020 03/20/2021 Thumb tendonitis 01/20/2016 02/20/2017 Osteoarthritis of lumbar spine 12/05/2015 1 Depression 04/11/2015 08/10/2017 Low back pain 04/11/2015 02/20/2017 Gastroesophageal reflux disease without esophagi tis 04/11/2015 12/16/2019 documented as of this encounter (statuses as of 09/01/2021) [facility] Plan note No data available for this section [facility] Evaluation note* Diagnosis Gastroesophageal reflux disease without esophagitis Esophageal reflux documented in this encounter [facility] note* Diagnosis Type 2 diabetes mellitus without complication (HCC) Type II or unspecified type diabetes mellitus without mention of complication, not stated as uncontrolled documented in this encounter [facility] note* Diagnosis Stage 3b chronic kidney disease (HCC)- Primary documented in this encounter [facility] note* Diagnosis Stage 3b chronic kidney disease (HCC)- Primary Type 2 diabetes mellitus without complication, without long-term current use of insulin ([facility]) documented in this encounter [facility] note* Diagnosis Moderate persistent asthma without complication Unspecified asthma documented in this encounter [facility] note* Diagnosis Moderate persistent asthma without complication Unspecified asthma documented in this encounter [facility] note* Diagnosis Moderate persistent asthma without complication- Primary Unspecified asthma Gastroesophageal reflux disease without esophagitis Esophageal reflux Tobacco use disorder JOSE (obstructive sleep apnea) Obstructive sleep apnea (adult) (pediatric) documented in this encounter [facility] note* Diagnosis Stage 3b chronic kidney disease (HCC)- Primary Panic anxiety syndrome Panic disorder without agoraphobia documented in this encounter [facility] note* Diagnosis ST elevation myocardial infarction involving left circumflex coronary artery ([facility])- Primary Acute myocardial infarction of other specified sites, initial episode of care Ventricular fibrillation (HCC) Ventricular fibrillation Coronary artery disease involving [place] coronary artery of [place] heart without angina pectoris Ischemic cardiomyopathy Other specified forms of chronic ischemic heart disease Mixed hyperlipidemia Type 2 diabetes mellitus with stage 3a chronic kidney disease, without long-term current use of insulin ([facility]) Tobacco use disorder [facility] Bipolar affective disorder, remission status unspecified ([facility])- Primary Insomnia, unspecified type Panic anxiety syndrome Panic disorder without agoraphobia Coronary artery disease involving [place] coronary artery of [place] heart without angina pectoris Persistent headaches Headache Type 2 diabetes mellitus with stage 3a chronic kidney disease, without long-term current use of insulin ([facility]) Morbid obesity with BMI of 45.0-49.9, adult ([facility]) Morbid obesity Psoriatic arthritis (HCC) Psoriatic arthropathy [facility]* Diagnosis Persistent headaches Headache Gastroesophageal reflux disease without esophagitis Esophageal reflux [facility]* Diagnosis Encounter for long-term (current) use of medications- Primary Encounter for long-term (current) use of other medications Bipolar affective disorder, remission status unspecified ([facility]) PTSD (post-traumatic stress disorder) Posttraumatic stress disorder Panic disorder with agoraphobia Agoraphobia with panic disorder Dyskinesia, tardive Subacute dyskinesia due to drugs [facility]* Diagnosis SOB (shortness of breath)- Primary Shortness of breath Mild intermittent asthma without complication Unspecified asthma Morbid obesity (HCC) Morbid obesity Cigarette smoker Tobacco use disorder [facility]* Diagnosis SOB (shortness of breath) Shortness of breath [facility]* Diagnosis PTSD (post-traumatic stress disorder)- Primary Posttraumatic stress disorder Panic disorder with agoraphobia Agoraphobia with panic disorder Dyskinesia, tardive Subacute dyskinesia due to drugs Bipolar affective disorder, currently depressed, moderate ([facility]) Bipolar I disorder, most recent episode (or current) depressed, moderate [facility]* Diagnosis Encounter for screening mammogram for breast cancer [facility]* Diagnosis Diabetic mononeuropathy associated with diabetes mellitus due to underlying condition ([facility])- Primary Callus of foot Corns and callosities Ingrowing toenail Ingrowing nail Onychomycosis Dermatophytosis of nail Pain in toe of left foot Pain in limb Pain in toe of right foot Pain in limb Diminished pulses in lower extremity Other symptoms involving cardiovascular system [facility]* Diagnosis Bipolar affective disorder, currently depressed, moderate ([facility])- Primary Bipolar I disorder, most recent episode (or current) depressed, moderate Dyskinesia, tardive Subacute dyskinesia due to drugs Panic disorder with agoraphobia Agoraphobia with panic disorder PTSD (post-traumatic stress disorder) Posttraumatic stress disorder [facility]* Diagnosis Moderate persistent asthma without complication- Primary Unspecified asthma Morbid obesity (HCC) Morbid obesity Gastroesophageal reflux disease without esophagitis Esophageal reflux Cigarette smoker Tobacco use disorder [facility] Diagnosis Panic disorder with agoraphobia Agoraphobia with panic disorder Dyskinesia, tardive Subacute dyskinesia due to drugs [facility]* Diagnosis Wrist pain, right- Primary Pain in joint, forearm Psoriatic arthritis (HCC) Psoriatic arthropathy Type 2 diabetes mellitus with stage 3a chronic kidney disease, without long-term current use of insulin ([facility]) [facility]* Diagnosis Persistent headaches Headache documented in this encounter [facility] note* Diagnosis Dyskinesia, tardive- Primary Subacute dyskinesia due to drugs Bipolar affective disorder, currently depressed, moderate (HCC) Bipolar I disorder, most recent episode (or current) depressed, moderate Panic disorder with agoraphobia Agoraphobia with panic disorder PTSD (post-traumatic stress disorder) Posttraumatic stress disorder documented in this encounter [facility] note* Diagnosis Bipolar affective disorder, currently depressed, moderate (HCC)- Primary Bipolar I disorder, most recent episode (or current) depressed, moderate Dyskinesia, tardive Subacute dyskinesia due to drugs Panic disorder with agoraphobia Agoraphobia with panic disorder PTSD (post-traumatic stress disorder) Posttraumatic stress disorder documented in this encounter [facility] Discharge instructions No data available for this section [facility] Progress note No data available for this section [facility] Reason for referral (narrative)* Outpatient Procedure (Routine) - Pending Review Specialty Diagnoses / Procedures Referred By Patrick t Referred To Contact [facility] Diagnoses Encounter for long-term (current) use of medications Procedures ECG COMPLETE ECG ROUTINE ECG W/LEAST 12 LDS W/I&R Seda Quiroz, ARTIST WOODBLOCK.EMBALMER ASSISTANT [address] [place] [address] [facility] Vascular [address] [address] Referral ID Status Reason Start Date Expiration Date Visits Requested Visits Authorized [id number] Pending Review Auto-Generat ed Referral 06/22/2022 06/22/2023 1 1 [facility] for referral (narrative)* Outpatient Procedure (Routine) - Authorized Specialty Diagnoses / Procedures [facility] Referred To Contact [facility] Diagnoses SOB (shortness of breath) Procedures SPIROMETRY BASELINE ONLY SPMTRY W/VC EXPIRATORY JEWEL W/WO MXML VOL VNTJ Talia Dias MD [address] [place] [address] [facility] [place] [address] [place] [id number] Referral ID Status Reason Start Date Expiration Date Visits Requested Visits Authorized [id number] Authorized Auto-Generat ed Referral 07/19/2022 08/18/2023 1 1 T [facility] for referral (narrative)* Diagnostic Procedure Only (Routine) - Pending Review Specialty Diagnoses / Procedures Referred By [facility] Referred To Contact [facility] Diagnoses Encounter for screening mammogram for breast cancer Procedures JEANNETTE SCREENING SCREENING MAMMOGRAPHY BI 2-VIEW BREAST INC CAD Jericho Tinoco MD [address] [place] [id number] [facility] [address] [place] [phone] Referral ID Status Reason Start Date Expiration Date Visits Requested Visits Authorized [id number] Pending Review Auto-Generat ed Referral 11/07/2022 12/07/2023 1 1 T [facility] for referral (narrative)* Outpatient Procedure (Routine) - Authorized Specialty Diagnoses / Procedures [facility]erred By [facility] Referred To Contact [facility] [place] Diagnoses Ingrowing toenail Procedures PVR ANK PRESS KAYLEE [facility] NON-INVAS PHYSIOLOGIC STD EXTREMITY ART 2 LEVEL Aron Navarro [address] [address] [facility] [place] [address] [place] [address] Referral ID Status Reason Start Date Expiration Date Visits Requested Visits Authorized [id number] Authorized Auto-Generat ed Referral 12/04/2022 12/04/2023 1 1 [facility] Summary Purpose Family History No Family History Records FoundNo Family History Records FoundNo Family History Records FoundNo Family History Records Found Advance Directives No Advanced Directives Records FoundDocuments on File Type Date Recorded Patient 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 And 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 Expl 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 Advance Directive(s) 05/29/2019 12:50 PM Advance Directive(s) 04/16/2016 1:49 PM Advance Directive(s) 01/16/2016 9:20 AM Advance Directive(s) 12/19/2015 7:24 AM Reason for Referral Specialty Diagnoses / Procedures Referred By Contac t Referred To Contact Rheumatology Diagnoses Psoriatic arthritis (HCC) Procedures CONSULT TO RHEUM/IMMUN DISEASE Jericho Tinoco MD [address] [place] [address] Referral ID Status Reason Start Date Expiration Date Visits Requested Visits Authorized [id number] Ref Not Required PCP Requested Referral 03/06/2023 03/05/2024 1 1 Specialty Diagnoses / Procedures Referred By Patrick mchugh Referred To Contact Diagnoses Bipolar affective disorder, remission status unspecified (HCC) Procedures CONSULT TO PSYCHIATRY OFFICE/OUTPATIENT [facility] MDM 60-74 MINUTES Older, LEONELA Marshall.EMBALMER ASSISTANT [address] [place] [address] Referral ID Status Reason Start Date Expiration Date Visits Requested Visits Authorized [id number] Pending Review PCP Requested Referral 06/01/2022 06/01/2023 1 1 Additional Source Comments INFORMATION SOURCE (unrecogn ized section and content) DATE CREATED AUTHOR AUTHOR'S ORGANIZ ATION 06/19/2020 [facility] DATE CREATED AUTHOR AUTHOR'S ORGANIZ ATION 05/17/2022 [facility] ([place]) DATE CREATED AUTHOR AUTHOR'S NERI ATION 05/20/2023 [facility] Source Comments (unrecognize d section and content) In the event this informatio n is protected by the Federal Confidentiality of Alcohol and Drug Abuse Patient Records regulations: The Federal rules restrict any use of the information to criminally investigate or prosecute any alcohol or drug abuse patient.[facility] the event this information is protected by the Federal Confidentiality of Alcohol and Drug Abuse Patient Records regulations: The Federal rules restrict any use of the information to criminally investigate or prosecute any alcohol or drug abuse patient.[facility] the event this information is protected by the Federal Confidentiality of Alcohol and Drug Abuse Patient Records regulations: The Federal rules restrict any use of the information to criminally investigate or prosecute any alcohol or drug abuse patient.[facility] the event this information is protected by the Federal Confidentiality of Alcohol and Drug Abuse Patient Records regulations: The Federal rules restrict any use of the information to criminally investigate or prosecute any alcohol or drug abuse patient.[facility] Center[facility] the event this information is protected by the Federal Confidentiality of Alcohol and Drug Abuse Patient Records regulations: The Federal rules restrict any use of the information to criminally investigate or prosecute any alcohol or drug abuse patient.[facility] CenterIn the event this information is protected by the Federal Confidentiality of Alcohol and Drug Abuse Patient Records regulations: The Federal rules restrict any use of the information to criminally investigate or prosecute any alcohol or drug abuse patient.[facility] CenterIn the event this information is protected by the Federal Confidentiality of Alcohol and Drug Abuse Patient Records regulations: The Federal rules restrict any use of the information to criminally investigate or prosecute any alcohol or drug abuse patient.[facility] CenterIn the event this information is protected by the Federal Confidentiality of Alcohol and Drug Abuse Patient Records regulations: The Federal rules restrict any use of the information to criminally investigate or prosecute any alcohol or drug abuse patient.[facility] CenterIn the event this information is protected by the Federal Confidentiality of Alcohol and Drug Abuse Patient Records regulations: The Federal rules restrict any use of the information to criminally investigate or prosecute any alcohol or drug abuse patient.[facility] CenterIn the event this information is protected by the Federal Confidentiality of Alcohol and Drug Abuse Patient Records regulations: The Federal rules restrict any use of the information to criminally investigate or prosecute any alcohol or drug abuse patient.[facility] CenterIn the event this information is protected by the Federal Confidentiality of Alcohol and Drug Abuse Patient Records regulations: The Federal rules restrict any use of the information to criminally investigate or prosecute any alcohol or drug abuse patient.[facility] CenterIn the event this information is protected by the Federal Confidentiality of Alcohol and Drug Abuse Patient Records regulations: The Federal rules restrict any use of the information to criminally investigate or prosecute any alcohol or drug abuse patient.[facility] CenterIn the event this information is protected by the Federal Confidentiality of Alcohol and Drug Abuse Patient Records regulations: The Federal rules restrict any use of the information to criminally investigate or prosecute any alcohol or drug abuse patient.[facility] CenterIn the event this information is protected by the Federal Confidentiality of Alcohol and Drug Abuse Patient Records regulations: The Federal rules restrict any use of the information to criminally investigate or prosecute any alcohol or drug abuse patient.[facility] CenterIn the event this information is protected by the Federal Confidentiality of Alcohol and Drug Abuse Patient Records regulations: The Federal rules restrict any use of the information to criminally investigate or prosecute any alcohol or drug abuse patient.[facility] CenterIn the event this information is protected by the Federal Confidentiality of Alcohol and Drug Abuse Patient Records regulations: The Federal rules restrict any use of the information to criminally investigate or prosecute any alcohol or drug abuse patient.[facility] CenterIn the event this information is protected by the Federal Confidentiality of Alcohol and Drug Abuse Patient Records regulations: The Federal rules restrict any use of the information to criminally investigate or prosecute any alcohol or drug abuse patient.[facility] CenterIn the event this information is protected by the Federal Confidentiality of Alcohol and Drug Abuse Patient Records regulations: The Federal rules restrict any use of the information to criminally investigate or prosecute any alcohol or drug abuse patient.[facility] CenterIn the event this information is protected by the Federal Confidentiality of Alcohol and Drug Abuse Patient Records regulations: The Federal rules restrict any use of the information to criminally investigate or prosecute any alcohol or drug abuse patient.[facility] CenterIn the event this information is protected by the Federal Confidentiality of Alcohol and Drug Abuse Patient Records regulations: The Federal rules restrict any use of the information to criminally investigate or prosecute any alcohol or drug abuse patient.[facility] CenterIn the event this information is protected by the Federal Confidentiality of Alcohol and Drug Abuse Patient Records regulations: The Federal rules restrict any use of the information to criminally investigate or prosecute any alcohol or drug abuse patient.[facility] CenterIn the event this information is protected by the Federal Confidentiality of Alcohol and Drug Abuse Patient Records regulations: The Federal rules restrict any use of the information to criminally investigate or prosecute any alcohol or drug abuse patient.[facility] CenterIn the event this information is protected by the Federal Confidentiality of Alcohol and Drug Abuse Patient Records regulations: The Federal rules restrict any use of the information to criminally investigate or prosecute any alcohol or drug abuse patient.[facility] CenterIn the event this information is protected by the Federal Confidentiality of Alcohol and Drug Abuse Patient Records regulations: The Federal rules restrict any use of the information to criminally investigate or prosecute any alcohol or drug abuse patient.[facility] CenterIn the event this information is protected by the Federal Confidentiality of Alcohol and Drug Abuse Patient Records regulations: The Federal rules restrict any use of the information to criminally investigate or prosecute any alcohol or drug abuse patient.[facility] CenterIn the event this information is protected by the Federal Confidentiality of Alcohol and Drug Abuse Patient Records regulations: The Federal rules restrict any use of the information to criminally investigate or prosecute any alcohol or drug abuse patient.[facility] CenterIn the event this information is protected by the Federal Confidentiality of Alcohol and Drug Abuse Patient Records regulations: The Federal rules restrict any use of the information to criminally investigate or prosecute any alcohol or drug abuse patient.[facility] CenterIn the event this information is protected by the Federal Confidentiality of Alcohol and Drug Abuse Patient Records regulations: The Federal rules restrict any use of the information to criminally investigate or prosecute any alcohol or drug abuse patient.[facility] CenterIn the event this information is protected by the Federal Confidentiality of Alcohol and Drug Abuse Patient Records regulations: The Federal rules restrict any use of the information to criminally investigate or prosecute any alcohol or drug abuse patient.[facility] CenterIn the event this information is protected by the Federal Confidentiality of Alcohol and Drug Abuse Patient Records regulations: The Federal rules restrict any use of the information to criminally investigate or prosecute any alcohol or drug abuse patient.[facility] CenterIn the event this information is protected by the Federal Confidentiality of Alcohol and Drug Abuse Patient Records regulations: The Federal rules restrict any use of the information to criminally investigate or prosecute any alcohol or drug abuse patient.[facility] CenterIn the event this information is protected by the Federal Confidentiality of Alcohol and Drug Abuse Patient Records regulations: The Federal rules restrict any use of the information to criminally investigate or prosecute any alcohol or drug abuse patient.[facility] CenterIn the event this information is protected by the Federal Confidentiality of Alcohol and Drug Abuse Patient Records regulations: The Federal rules restrict any use of the information to criminally investigate or prosecute any alcohol or drug abuse patient.[facility] CenterIn the event this information is protected by the Federal Confidentiality of Alcohol and Drug Abuse Patient Records regulations: The Federal rules restrict any use of the information to criminally investigate or prosecute any alcohol or drug abuse patient.[facility] CenterIn the event this information is protected by the Federal Confidentiality of Alcohol and Drug Abuse Patient Records regulations: The Federal rules restrict any use of the information to criminally investigate or prosecute any alcohol or drug abuse patient.[facility] Reason for Visit (unrecogniz ed section and content) Reason Comments Referral Request Reason Comments Spirometry Specialty Diagnoses / Procedures Referred By Contac t Referred To Contact [facility] Diagnoses Moderate persistent asthma without complication Procedures SPIROMETRY BASELINE ONLY SPMTRY W/VC EXPIRATORY JEWEL W/WO MXML VOL VNTJ Jamilah Galvan PA-C [address] [place] [address] [address] Referral ID Status Reason Start Date Expiration Date V isits Requested Visits Authorized [id number] Closed Auto-Generate d Referral 07/17/2021 08/16/2022 1 1 Specialty Diagnoses / Procedures Referred By Contac t Referred To Contact [facility] Diagnoses Moderate persistent asthma without complication Procedures NITRIC OXIDE, EXHALED NITRIC OXIDE GAS DETERMINATION Jamilah Galvan PA-C [address] [place] [address] [address] Referral ID Status Reason Start Date Expiration Date V isits Requested Visits Authorized [id number] Closed Auto-Generate d Referral 07/17/2021 08/16/2022 1 [...] NEW HIGH MDM 60-74 MINUTES Older, Joanna, ARTIST WOODBLOCK.EMBALMER ASSISTANT [address] [place] [address] Referral ID Status Reason Start Date Expiration Date Visits Requested Visits Authorized [id number] Pending Review PCP Requested Referral 06/01/2022 06/01/2023 1 1 Reason Comments Established Patient 6 month follow up Asthma Specialty Diagnoses / Procedures Referred By Contac t Referred [facility] Diagnoses SOB (shortness of breath) Procedures SPIROMETRY BASELINE ONLY SPMTRY W/VC EXPIRATORY JEWEL W/WO MXML VOL VNTTalia Francois MD [address] [place] [address] [facility] [place] [address] [place] [address] Referral ID Status Reason Start Date Expiration Date V isits Requested Visits Authorized [id number] Closed Auto-Generate d Referral 07/19/2022 08/18/2023 1 1 Reason Comments Follow Up Specialty Diagnoses / Procedures Referred By Contac t Referred To Contact Psychiatry / ADULT PSYCHIATRY Diagnoses Follow up Procedures VIDEO PSYC/PSYL EST Claude, Joanna, ARTIST [employer].EMBALMER ASSISTANT [address] [place] [address] Seda Quiroz, ARTIST WOODBLOCK.EMBALMER ASSISTANT [address] [place] [address] Referral ID Status Reason Start Date Expiration Date V isits Requested Visits Authorized [id number] Pending Review 08/23/2022 05/05/2023 30 30 Reason Comments Results Reason Comments Letter Reason Comments Established Patient Diabetic Foot Care Reason Comments Refill Request Reason Comments Express Care follow-up Reason Onset Date Comments Refill Request 03/09/2023 Specialty Diagnoses / Procedures Referred By Contac t Referred To Contact Psychiatry / ADULT PSYCHIATRY Diagnoses FOLLOW UP Procedures EST PSYC ADULT Jericho Tinoco MD [address] [place] [address] Seda Quiroz, ARTIST WOODBLOCK.EMBALMER ASSISTANT [address] [place] [address] Referral ID Status Reason Start Date Expiration Date V isits Requested Visits Authorized [id number] Pending Review 04/02/2023 07/01/2023 1 1 Care Teams (unrecognized sec tion and content) Hull Molder Relationship Specialty Start Date End Date Jericho Tinoco MD [address] [place] [address] PCP - General Internal Medicine 05/26/15 Hull Molder Relationship Specialty Start Date End Date Jericho Tinoco MD [address] [place] [address] PCP - General Internal Medicine 05/26/15 Hull Molder Relationship Specialty Start Date End Date Jericho Tinoco MD [facility] [place] [address] PCP - General Internal Medicine 05/26/15 Hull Molder Relationship Specialty Start Date End Date Jericho Tinoco MD [facility] [place] [address] PCP - General Internal Medicine 05/26/15 Hull Molder Relationship Specialty Start Date End Date Jericho Tinoco MD [address] [place] [address] PCP - General Internal Medicine 05/26/15 Hull Molder Relationship Specialty Start Date End Date Jericho Tinoco MD [address] [place] [address] PCP - General Internal Medicine 05/26/15 Hull Molder Relationship Specialty Start Date End Date Jericho Tinoco MD [facility] [place] [address] PCP - General Internal Medicine 05/26/15 Hull Molder Relationship Specialty Start Date End Date Jericho Tinoco MD [facility] [place] [address] PCP - General Internal Medicine 05/26/15 Hull Molder Relationship Specialty Start Date End Date Jericho Tinoco MD [address] [place] [address] PCP - General Internal Medicine 05/26/15 Hull Molder Relationship Specialty Start Date End Date Jericho Tinoco MD [address] [place] [address] PCP - General Internal Medicine 05/26/15 Hull Molder Relationship Specialty Start Date End Date Jericho Tinoco MD [address] [place] [address] PCP - General Internal Medicine 05/26/15 Hull Molder Relationship Specialty Start Date End Date Jericho Tinoco MD [address] [place] [address] PCP - General Internal Medicine 05/26/15 Hull Molder Relationship Specialty Start Date End Date Jericho Tinoco MD [address] [place] [address] PCP - General Internal Medicine 05/26/15 Hull Molder Relationship Specialty Start Date End Date Jericho Tinoco MD [address] [place] [address] PCP - General Internal Medicine 05/26/15 Hull Molder Relationship Specialty Start Date End Date Jericho Tinoco MD [address] [place] [address] PCP - General Internal Medicine 05/26/15 Hull Molder Relationship Specialty Start Date End Date Jericho Tinoco MD [address] [place] [address] PCP - General Internal Medicine 05/26/15 Hull Molder Relationship Specialty Start Date End Date Jericho Tinoco MD [address] [place] [address] PCP - General Internal Medicine 05/26/15 Hull Molder Relationship Specialty Start Date End Date Jericho Tinoco MD [address] [place] [address] PCP - General Internal Medicine 05/26/15 Hull Molder Relationship Specialty Start Date End Date Jericho Tinoco MD [address] [place] [address] PCP - General Internal Medicine 05/26/15 Hull Molder Relationship Specialty Start Date End Date Jericho Tinoco MD [address] [place] [address] PCP - General Internal Medicine 05/26/15 Hull Molder Relationship Specialty Start Date End Date Jericho Tinoco MD [address] [place] [address] PCP - General Internal Medicine 05/26/15 Hull Molder Relationship Specialty Start Date End Date Jericho Tinoco MD [address] [place] [address] PCP - General Internal Medicine 05/26/15 Hull Molder Relationship Specialty Start Date End Date Jericho Tinoco MD [address] [place] [address] PCP - General Internal Medicine 05/26/15 Hull Molder Relationship Specialty Start Date End Date Jericho Tinoco MD [address] [place] [address] PCP - General Internal Medicine 05/26/15 Hull Molder Relationship Specialty Start Date End Date Jericho Tinoco MD [address] [place] [address] PCP - General Internal Medicine 05/26/15 Hull Molder Relationship Specialty Start Date End Date Jericho Tinoco MD [address] [place] [address] PCP - General Internal Medicine 05/26/15 Hull Molder Relationship Specialty Start Date End Date Jericho Tinoco MD [address] [place] [address] PCP - General Internal Medicine 05/26/15 Hull Molder Relationship Specialty Start Date End Date Jericho Tinoco MD [address] [place] [address] PCP - General Internal Medicine 05/26/15 Hull Molder Relationship Specialty Start Date End Date Jericho Tinoco MD [address] [place] [address] PCP - General Internal Medicine 05/26/15 Hull Molder Relationship Specialty Start Date End Date Jericho Tinoco MD [address] [place] [address] PCP - General Internal Medicine 05/26/15 Care Team (unrecognized sect ion and content) Care Team Personnel Name: JERICHO TINOCO MD Member Role: Primary Care Physician Address: Address: [address] [place] [address]- [place] Name: ROBIN RIGGS MD Position: ED Physician Member Role: ED Physician Address: Address: [address] [place] [address]- [place] Name: [email or web address] Padilla Position: ED RN Member Role: ED RN Care Team Related Persons Name: AARON FLORES Care Team Personnel Name: JERICHO TINOCO MD Member Role: Primary Care Physician Address: Address: [facility] [place] [address]- Care Team Related Persons Name: AARON FLORES [...] BE BASED ON THE PRIMARY CLINICAL RECORDS. [employer] provides no warranty or guarantee of the accuracy or completeness of information in this document.
--- NOTE | 2023-05-22 16:28 | PN.HOSP_ITS ---
Subjective Subjective Requiring intermittent CPAP and still feeling short of breath. She does feel better when she wears a CPAP compared to the nasal cannula Objective Data Objective Data Vital Signs: Vital Signs Temp Pulse Resp BP Pulse Ox O2 Del Method FiO2 98.6 F 78 26 H 128/62 H 92 Room Air 21 05/22/23 10:15 05/22/23 14:27 05/22/23 14:27 05/22/23 10:15 05/22/23 14:27 05/22/23 11:00 05/22/23 14:27 Oxygen Delivery Method Room Air Weight: 271 lb 13.279 oz Body Mass Index (BMI) 51.3 Intake & Output: Intake and Output for Last 24 Hours 05/21/23 05/22/23 05/23/23 03:59 03:59 03:59 Intake Total 1000 / 1000 1644.34 / 1644.34 Balance 1000 / 1000 1644.34 / 1644.34 Lab / Micro Data 05/22/23 05:45 05/22/23 05:45 Labs: Laboratory Results - last 24 hr 05/21/23 18:57: APTT 34.7, D-Dimer Quant (PE/DVT) 1.40 H* 05/21/23 22:28: POC Glucose 172 H 05/22/23 05:45: WBC 3.2 L, RBC 3.53 L, Hgb 11.7 L, Hct 34.1 L, MCV 96.6, MCH 33.1 H, MCHC 34.3, RDW Std Deviation 57.1 H, RDW Coeff of Erlinda 16.2 H, Plt Count 145 L, MPV 10.4, Immature Gran % (Auto) 0.600, Neut % (Auto) 73.6 H, Lymph % (Auto) 22.4, [place] % (Auto) 2.8, Eos % (Auto) 0.0, Baso % (Auto) 0.6, Absolute Neuts (auto) 2.3, Absolute Lymphs (auto) 0.71 L, Nucleated RBC % 0, Differential Comment S, APTT 218.7 H*, Sodium 135 L, Potassium 4.2, Chloride 107, Carbon Dioxide 21.0, Anion Gap 7, BUN 24 H, Creatinine 1.76 H, Estim Creat Clear Calc 43.43, Est GFR (MDRD) Af Amer 38 L, Est GFR (MDRD) Non-Af 32 L, BUN/Creatinine Ratio 13.6, Glucose 176 H, Calcium 8.3 L, Phosphorus 3.1, Magnesium 2.7 H, Total Bilirubin 0.70, AST 48 H, ALT 63 H, Alkaline Phosphatase 125 H, Total Protein 6.4, Albumin 3.0 L, Globulin 3.4, Albumin/Globulin Ratio 0.9, TSH 0.99 05/22/23 05:48: POC Glucose 167 H 05/22/23 11:10: POC Glucose 167 H 05/22/23 14:33: APTT 61.2 H Micro: Microbiology 05/21/23 15:59 Mucosa - Nose SARS-CoV-2, Influenza & RSV (PCR) - Final SARS-CoV-2 (COVID 19) 05/22/23 04:55 Urine, Clean Catch Legionella Antigen - Final 05/22/23 04:55 Urine, Clean Catch Streptococcus pneumoniae Antigen (M - Final 05/21/23 20:17 Mucosa - Nasopharyngeal Respiratory Panel (PCR) - Final ABG Data ABG results: ABG 05/21/23 17:32 Specimen Type ART Sample Site L Radial pH 7.37 Bicarbonate Actual 18.3 L Total CO2 19 Base Excess -7 L O2 Saturation 92 L O2 % 21.0 ABG pCO2 31.6 L ABG pO2 63 L Teddy Test Positive O2 Delivery Device Not entered Vent Mode Not entered Radiography Diagnostic Testing: Radiology Impression Lung Scan-VQ NM 05/22/23 10:00 IMPRESSION: 1. LOW PROBABILITY FOR PULMONARY EMBOLUS (R 12%) 99m Tc MAA pulmonary perfusion imaging examination, according to PISA-PED (Prospective Investigative Study of Pulmonary Embolism Diagnosis) interpretive criteria with regard given to the presence of minimally heterogeneous perfusion without significant peripheral perfusion abnormalities. (Britt et al, Am J Respir Crit Care Med 154: 1387, 1996). Electronically Signed: Haroldo Tabares DO at 11:44 EST , Physical Exam Narrative General: Alert, Oriented x3, Cooperative, mild to moderate respiratory distress HEENT: Atraumatic, PERRLA, EOMI, Normocephalic Oral: Moist Mucosa Neck: Supple, No JVD Lungs: Diminished, Normal air movement, rhonchi, wheeze, No rales, tachypnea with conversational dyspnea Cardiovascular: Regular rate, Regular Rhythm, Normal S1, Normal S2, No murmurs Abdomen: Soft, Non Tender, Non-Distended, No Hepato-splenomegaly Extremities: No edema, Capillary Refill Less than 3 Seconds Skin: No rashes, No breakdown Musculoskeletal: No Tenderness to Palpation of Joints or Extremities Neurological: No focal neurological deficit, motor Exam 5/5 strength throughout, Sensory exam intact to light touch and pain Psych/Mental Status: Normal Affect, Appropriate Assessment & Plan Assessment/Plan (1) Acute exacerbation of COPD with asthma: (2) COVID-19: PLAN: Plan 1. Acute hypoxic respiratory failure acute exacerbation of COPD with asthma likely precipitated by COVID/EDWIN on CKD 3B/JOSE/tobacco abuse ? Her acute hypoxic respiratory failure appears to have occurred after admission as she has been on CPAP most of the day and is having hypoxia on the monitor into the 80s. ? She has been symptomatic for the last 2 to 3 weeks and initially only had ambulatory hypoxia however now during my examination she was hypoxic into the high 70s low 80s while on CPAP ? Will continue with steroids and breathing treatments, unfortunately it is unclear whether she is having active COVID given that symptoms started 2 to 3 weeks ago therefore we will continue with treatment for just COPD but it is likely that her respiratory issues were instigated by COVID ? She is not vaccinated ? Will hold off on any Lasix as she did come in acute renal failure with creatinine of 2.34 ? VQ scan and lower extremity Doppler negative for DVT and PE, will discontinue heparin drip and just place her on DVT prophylaxis ? Discussed tobacco cessation 2. CAD status post stent/HTN/HLD ? Blood pressures are stable can resume her home medications ? Continue with Lipitor and antiplatelets ? We will monitor make adjustments as necessary 3. DM2 ? Does not appear to take medications for this at home ? Given steroids in place, continue with sliding scale insulin ? Accu-Cheks ACHS ? Will monitor make adjustments as necessary 4. Rheumatoid arthritis ? Stable ? We will hold her home methotrexate due to current illness 5. GERD ? Stable ? Continue with PPI 6. Chronic pain/anxiety/depression/bipolar disorder ? Stable ? She will continue with her home medications DVT: Heparin Capacity [employer] Reflex Medical hold order details:: IF a medical hold is selected below, a suggested order for a MEDICAL HOLD will reflex upon signing the document. Next of kin: [place] law dictates a PRIORITY LIST for identifying legal decision-maker/legal next of kin in the following order (LNOK): 1st: The patient?s legal guardian, if any 2nd: The patient's spouse (if status is questionable, consult Risk Management) 3rd: The patient?s adult child(stephani) (majority, if multiple children) 4th: The patient?s parents 5th: The patient?s adult siblings (majority, if multiple children siblings) Charges/Coding Visit Charges Inpatient E&M: 84529 Subs Hosp L2
[2023-05-22 17:17] LABS: Bedside Glucose 143 mg/dL (74-106)
[2023-05-22 22:45] LABS: Bedside Glucose 195 mg/dL (74-106)
[2023-05-23] VITALS (11 sets, daily range): BP systolic 111–166; BP diastolic 62–86; PULSE 56–77; RESP 18–26; TEMP 36.4–36.8; O2SAT 95–99
[2023-05-23] MEDS: Pregabalin 75 MG Capsule PO ×3 (00:34→22:10)
[2023-05-23] MEDS: guaiFENesin 1,200 MG Tablet 1200 MG PO ×3 (00:34→22:10)
[2023-05-23] MEDS: Carvedilol 6.25 MG Tablet PO ×3 (00:35→22:10)
[2023-05-23] MEDS: MELATONIN 10 MG TABLET PO ×2 (00:35→22:10)
[2023-05-23] MEDS: Heparin Injection (Vial) 5,000 UNIT/ML VIAL 5000 UNIT SC ×4 (00:35→22:10)
[2023-05-23] MEDS: Atorvastatin Calcium 40 MG Tablet PO ×2 (00:35→22:10)
[2023-05-23] MEDS: Ipratropium/Albuterol Sulfate 3 ML AMPUL.NEB INHALATION ×3 (03:12→14:40)
[2023-05-23] MEDS: Insulin Lispro 100 UNIT/ML INSULN.PEN SC (06:35)
[2023-05-23 06:56] LABS: Bedside Glucose 161 mg/dL (74-106)
[2023-05-23 08:26] LABS: Absolute Lymphocyte Count 0.79 X10^3/uL (0.83-4.51); Absolute Neutrophil Count 8.7 X10^3/uL (2.0-7.7); Basophil# 0.01 X10^3/uL; Basophil% 0.1 % (0-1); Hematocrit 32.9 % (37-47); Hemoglobin 11.2 g/dL (12.0-15.0); Lymphocyte # 0.79 X10^3/ul (0.83-4.51); Mean Corpuscular Volume 97.1 fL (81-99); Mean Platelet Vol. 10.7 fl (6.2-12.0); Monocyte# 0.28 X10^3/uL; Monocyte% 2.8 % (0-10); NRBC Flagged by Analyzer 0.2 % (0-5); Neutrophil # 8.73 X10^3/uL (2.7-7.7); Neutrophil % 88.2 % (47-70); Platelet Count 141 K/mm3 (150-450); RBC Distribution Width CV 16.4 % (11.6-14.6); RBC Distribution Width SD 57.9 fl (35.1-43.9); Red Blood Count 3.39 M/mm3 (4.2-5.4); White Blood Count 9.9 K/mm3 (4.4-11.0)
[2023-05-23 09:08] LABS: Anion Gap 5 (5-15); BUN 25 mg/dL (7-18); BUN/Creat Ratio 20.2 RATIO (10-20); Calcium,Total 8.1 mg/dL (8.5-10.1); Chloride 108 mmol/L (98-107); Creatinine, Serum 1.24 mg/dL (0.55-1.02); EST Glomerular Filtration Rate 47 mL/min (>60); Est Glom Filt Rate - Afr Amer 57 mL/min (>60); Estimated Creatinine Clearance 61.64 ml/min; Glucose 166 mg/dL (74-106); Potassium 4.5 mmol/L (3.5-5.1); Sodium Level 133 mmol/L (136-145)
[2023-05-23] MEDS: Aspirin E.C. 81 MG Tablet PO (10:33)
[2023-05-23] MEDS: Clopidogrel Bisulfate 75 MG Tablet PO (10:33)
[2023-05-23] MEDS: lamoTRIgine 100 MG Tablet 200 MG PO (10:33)
[2023-05-23] MEDS: Pantoprazole Sodium 40 MG Tablet PO (10:34)
[2023-05-23] MEDS: Escitalopram Oxalate 20 MG Tablet PO (10:34)
--- NOTE | 2023-05-23 10:50 | CASEMGMT ---
KWADWO BARROSO Assessment: Face to Face with pt for initial transition planning/care coordination assessment. KWADWO BARROSO introduced self and role at [facility], pt voices understanding and consents to assessment. Pt is A&O x4 and answers all questions appropriately at this time. Pt sitting up in bed with oxygen on in. Pt visibly short of breath with conversation. Care providers, pharmacy, and demographics verified/updated. Admitting Dx:SOB, exertional hypoxia PCP:Ezequiel Specialists:Dimitri, pain mgmt; pulm and psychiatry through [facility]; Min, counselor at [facility]; Hussein, cardio Preferred Pharmacy:[facility] Insurance:My Care [facility], [facility] Community Plan Prescription Benefit: yes LNOK:Hossein Harris, sig other; pt is hospitalized currently Living Arrangements: Pt lives with sig other in a mobile home with 3 steps to enter with a rail. Pt reports she was I in ADL's prior to surgery and denies concerns at home. Transportation: Pt drives self and denies concerns with transportation. DME:CPAP from [facility]. Pt does not have a BGM, states she has not needed to check her blood sugars. Pt states she can afford a pox if she needs oxygen upon dc home. If oxygen is needed, pt would like it from [facility]. HHC/SNF:Pt denies hx Pt states no concerns with going home at time of dc. Pt smokes a half to whole pack of cigarettes per day. Pt denies use of alcohol, street or illegal drugs. Pt states no further concerns/needs. CM to follow. Advised pt to ask CM if any further question/concerns/needs arise, voices understanding. Pt Goal:Home Plan:Home, follow for oxygen and need for BGM rx
[2023-05-23 12:15] LABS: Bedside Glucose 148 mg/dL (74-106)
[2023-05-23] MEDS: 0.9% Saline Lock 10 ML Syringe IV (15:23)
--- NOTE | 2023-05-23 16:04 | PN.HOSP_ITS ---
Subjective Subjective Still feels short of breath but improved currently maintaining her oxygen saturations on 3 L nasal cannula Objective Data Objective Data Vital Signs: Vital Signs Temp Pulse Resp BP Pulse Ox O2 Del Method O2 Flow Rate 97.6 F L 63 20 H 120/67 97 Nasal Cannula 3 05/23/23 15:38 05/23/23 15:38 05/23/23 15:38 05/23/23 15:38 05/23/23 15:38 05/23/23 15:38 05/23/23 15:38 FiO2 21 05/22/23 14:27 Oxygen Flow Rate (L/min) 3 Oxygen Delivery Method Nasal Cannula Weight: 271 lb 13.279 oz Body Mass Index (BMI) 51.3 Intake & Output: Intake and Output for Last 24 Hours 05/22/23 05/23/23 05/24/23 03:59 03:59 03:59 Intake Total 1000 / 1000 3144.34 / 3144.34 400 / 400 Balance 1000 / 1000 3144.34 / 3144.34 400 / 400 Lab / Micro Data 05/23/23 08:16 05/23/23 08:16 Labs: Laboratory Results - last 24 hr 05/22/23 16:55: POC Glucose 143 H 05/22/23 22:25: POC Glucose 195 H 05/23/23 06:34: POC Glucose 161 H 05/23/23 08:16: WBC 9.9, RBC 3.39 L, Hgb 11.2 L, Hct 32.9 L, MCV 97.1, MCH 33.0 H, MCHC 34.0, RDW Std Deviation 57.9 H, RDW Coeff of Erlinda 16.4 H, Plt Count 141 L , MPV 10.7, Immature Gran % (Auto) 0.900, Neut % (Auto) 88.2 H, Lymph % (Auto) 8.0 L, [place] % (Auto) 2.8, Eos % (Auto) 0.0, Baso % (Auto) 0.1, Absolute Neuts (auto) 8.7 H, Absolute Lymphs (auto) 0.79 L, Nucleated RBC % 0.2, Sodium 133 L, Potassium 4.5, Chloride 108 H, Carbon Dioxide 20.0 L, Anion Gap 5, BUN 25 H, Creatinine 1.24 H, Estim Creat Clear Calc 61.64, Est GFR (MDRD) Af Amer 57 L, Est GFR (MDRD) Non-Af 47 L, BUN/Creatinine Ratio 20.2 H, Glucose 166 H, Calcium 8.1 L 05/23/23 11:57: POC Glucose 148 H Micro: Microbiology 05/21/23 15:59 Mucosa - Nose SARS-CoV-2, Influenza & RSV (PCR) - Final SARS-CoV-2 (COVID 19) 05/22/23 04:55 Urine, Clean Catch Legionella Antigen - Final 05/22/23 04:55 Urine, Clean Catch Streptococcus pneumoniae Antigen (M - Final 05/21/23 20:17 Mucosa - Nasopharyngeal Respiratory Panel (PCR) - Final Radiography Diagnostic Testing: Radiology Impression Venous Doppler Study 05/21/23 19:58 Interpretation Summary Deep veins of the bilateral lower extremities are patent and compressible segmentally. There is no evidence of bilateral lower extremity deep vein thrombosis. The bilateral great saphenous veins appear patent and compressible segmentally. Ordering Physician: Devin Correa Referring Physician: N/A Performed By: Tyler Samson RVT Physical Exam Narrative General: Alert, Oriented x3, Cooperative, mild respiratory distress HEENT: Atraumatic, PERRLA, EOMI, Normocephalic Oral: Moist Mucosa Neck: Supple, No JVD Lungs: Diminished, Normal air movement, rhonchi, wheeze, No rales, tachypnea with conversational dyspnea Cardiovascular: Regular rate, Regular Rhythm, Normal S1, Normal S2, No murmurs Abdomen: Soft, Non Tender, Non-Distended, No Hepato-splenomegaly Extremities: No edema, Capillary Refill Less than 3 Seconds Skin: No rashes, No breakdown Musculoskeletal: No Tenderness to Palpation of Joints or Extremities Neurological: No focal neurological deficit, motor Exam 5/5 strength throughout, Sensory exam intact to light touch and pain Psych/Mental Status: Normal Affect, Appropriate Assessment & Plan Assessment/Plan (1) Acute exacerbation of COPD with asthma: (2) COVID-19: PLAN: Plan 1. Acute hypoxic respiratory failure acute exacerbation of COPD with asthma likely precipitated by COVID/EDWIN on CKD 3B/JOSE/tobacco abuse ? Her acute hypoxic respiratory failure appears to have occurred after admission as she has been on CPAP most of the day and is having hypoxia on the monitor into the 80s. ? She has been symptomatic for the last 2 to 3 weeks and initially only had ambulatory hypoxia however now during my examination she was hypoxic into the high 70s low 80s while on CPAP ? Will continue with steroids and breathing treatments, unfortunately it is unclear whether she is having active COVID given that symptoms started 2 to 3 weeks ago therefore we will continue with treatment for just COPD but it is likely that her respiratory issues were instigated by COVID ? She is not vaccinated ? Will hold off on any Lasix as she did come in acute renal failure with creatinine of 2.34, creatinine today is 1.24 ? VQ scan and lower extremity Doppler negative for DVT and PE, ? Discussed tobacco cessation 2. CAD status post stent/HTN/HLD ? Blood pressures are stable can resume her home medications ? Continue with Lipitor and antiplatelets ? We will monitor make adjustments as necessary 3. DM2 ? Does not appear to take medications for this at home ? Given steroids in place, continue with sliding scale insulin ? Accu-Cheks ACHS ? Will monitor make adjustments as necessary 4. Rheumatoid arthritis ? Stable ? We will hold her home methotrexate due to current illness 5. GERD ? Stable ? Continue with PPI 6. Chronic pain/anxiety/depression/bipolar disorder ? Stable ? She will continue with her home medications DVT: Heparin Capacity Legal Cement Handler Reflex Medical hold order details:: IF a medical hold is selected below, a suggested order for a MEDICAL HOLD will reflex upon signing the document. Next of kin: [place] law dictates a PRIORITY LIST for identifying legal decision-maker/legal next of kin in the following order (LNOK): 1st: The patient?s legal guardian, if any 2nd: The patient's spouse (if status is questionable, consult Risk Management) 3rd: The patient?s adult child(stephani) (majority, if multiple children) 4th: The patient?s parents 5th: The patient?s adult siblings (majority, if multiple children siblings) Charges/Coding Visit Charges Inpatient E&M: 31517 Subs Hosp L2
--- NOTE | 2023-05-23 17:08 | CASEMGMT ---
Discharge Planning Several attempts to complete [place] have been made in person and by phone. DC production quality manager will attempt again in the morning. Viktoria William, Discharge Planning Asst.
[2023-05-23 17:15] LABS: Bedside Glucose 143 mg/dL (74-106)
[2023-05-24] VITALS (13 sets, daily range): BP systolic 154–176; BP diastolic 75–90; PULSE 60–90; RESP 22–44; TEMP 36.1–36.7; O2SAT 84–96
[2023-05-24] MEDS: 0.9% Saline Lock 10 ML Syringe IV ×3 (06:07→21:07)
[2023-05-24] MEDS: Insulin Lispro 100 UNIT/ML INSULN.PEN SC (06:08)
[2023-05-24] MEDS: Heparin Injection (Vial) 5,000 UNIT/ML VIAL 5000 UNIT SC ×3 (06:08→21:10)
[2023-05-24 06:19] LABS: Absolute Lymphocyte Count 0.93 X10^3/uL (0.83-4.51); Absolute Neutrophil Count 11.3 X10^3/uL (2.0-7.7); Basophil# 0.04 X10^3/uL; Basophil% 0.3 % (0-1); Eosinophil# 0.19 X10^3/uL; Eosinophils% 1.4 % (0-5); Hematocrit 35.8 % (37-47); Hemoglobin 12.1 g/dL (12.0-15.0); Lymphocyte # 0.93 X10^3/ul (0.83-4.51); Mean Corp Hgb Conc 33.8 g/dL (32-36); Mean Corpuscular Hgb 33.2 pg (27.0-32.0); Mean Corpuscular Volume 98.1 fL (81-99); Mean Platelet Vol. 10.8 fl (6.2-12.0); Monocyte% 4.5 % (0-10); NRBC Flagged by Analyzer 0.2 % (0-5); Neutrophil # 11.31 X10^3/uL (2.7-7.7); Neutrophil % 85.1 % (47-70); POSITIVE MORPHOLOGY YES; Platelet Count 170 K/mm3 (150-450); RBC Distribution Width CV 16.5 % (11.6-14.6); RBC Distribution Width SD 59.6 fl (35.1-43.9); Red Blood Count 3.65 M/mm3 (4.2-5.4); White Blood Count 13.3 K/mm3 (4.4-11.0)
[2023-05-24 06:28] LABS: Differential Indicated SCAN CRITERIA MET
[2023-05-24 06:33] LABS: Bedside Glucose 184 mg/dL (74-106)
[2023-05-24 06:37] LABS: Anion Gap 4 (5-15); BUN 26 mg/dL (7-18); BUN/Creat Ratio 22.2 RATIO (10-20); Calcium,Total 8.3 mg/dL (8.5-10.1); Chloride 108 mmol/L (98-107); Creatinine, Serum 1.17 mg/dL (0.55-1.02); EST Glomerular Filtration Rate 51 mL/min (>60); Est Glom Filt Rate - Afr Amer 61 mL/min (>60); Estimated Creatinine Clearance 65.32 ml/min; Glucose 167 mg/dL (74-106); Potassium 4.9 mmol/L (3.5-5.1); Sodium Level 135 mmol/L (136-145)
[2023-05-24 07:03] LABS: Differential Comment SCANNED
[2023-05-24] MEDS: Ipratropium/Albuterol Sulfate 3 ML AMPUL.NEB INHALATION ×5 (08:31→23:32)
[2023-05-24] MEDS: Aspirin E.C. 81 MG Tablet PO (09:04)
[2023-05-24] MEDS: lamoTRIgine 100 MG Tablet 200 MG PO (09:04)
[2023-05-24] MEDS: Pantoprazole Sodium 40 MG Tablet PO (09:04)
[2023-05-24] MEDS: Escitalopram Oxalate 20 MG Tablet PO (09:04)
[2023-05-24] MEDS: Clopidogrel Bisulfate 75 MG Tablet PO (09:05)
[2023-05-24] MEDS: guaiFENesin 1,200 MG Tablet 1200 MG PO ×2 (09:05→21:11)
[2023-05-24] MEDS: Carvedilol 6.25 MG Tablet PO ×2 (09:05→21:11)
[2023-05-24] MEDS: Acetaminophen 325 MG Tablet 650 MG PO (09:05)
[2023-05-24] MEDS: Pregabalin 75 MG Capsule PO ×2 (09:05→21:11)
[2023-05-24] MEDS: Buprenorphine 10 MCG PATCH.TDWK 2 PATCH TD (12:43)
[2023-05-24 13:04] LABS: Bedside Glucose 135 mg/dL (74-106)
[2023-05-24] MEDS: ALPRAZolam 0.5 MG Tablet PO (15:09)
--- NOTE | 2023-05-24 16:13 | PN.HOSP_ITS ---
Subjective Subjective Doing well, she was down to 3 L nasal cannula at rest. Still fairly short of breath with ambulation and exertion. Will continue to encourage CPAP usage while sleeping Objective Data Objective Data Vital Signs: Vital Signs Temp Pulse Resp BP Pulse Ox O2 Del Method O2 Flow Rate 96.9 F L 60 34 H 176/77 H 96 CPAP 2 05/24/23 14:00 05/24/23 16:02 05/24/23 16:02 05/24/23 14:00 05/24/23 14:00 05/24/23 14:00 05/24/23 14:00 FiO2 2 05/23/23 20:25 Oxygen Flow Rate (L/min) 2 Oxygen Delivery Method CPAP Weight: 271 lb 13.279 oz Body Mass Index (BMI) 51.3 Intake & Output: Intake and Output for Last 24 Hours 05/23/23 05/24/23 05/25/23 03:59 03:59 03:59 Intake Total 3144.34 / 3144.34 800 / 800 Output Total 500 / 500 Balance 3144.34 / 3144.34 300 / 300 Lab / Micro Data 05/24/23 06:00 05/24/23 06:00 Labs: Laboratory Results - last 24 hr 05/23/23 16:57: POC Glucose 143 H 05/24/23 06:00: WBC 13.3 H, RBC 3.65 L, Hgb 12.1, Hct 35.8 L, MCV 98.1, MCH 33.2 H, MCHC 33.8, RDW Std Deviation 59.6 H, RDW Coeff of Erlinda 16.5 H, Plt Count 170, MPV 10.8, Immature Gran % (Auto) 1.700 H, Neut % (Auto) 85.1 H, Lymph % (Auto) 7.0 L, [place] % (Auto) 4.5, Eos % (Auto) 1.4, Baso % (Auto) 0.3, Absolute Neuts (auto) 11.3 H, Absolute Lymphs (auto) 0.93, Nucleated RBC % 0.2, Differential Comment SCANNED, Sodium 135 L, Potassium 4.9, Chloride 108 H, Carbon Dioxide 23.0, Anion Gap 4 L, BUN 26 H, Creatinine 1.17 H, Estim Creat Clear Calc 65.32, Est GFR (MDRD) Af Amer 61, Est GFR (MDRD) Non-Af 51 L, BUN/Creatinine Ratio 22.2 H, Glucose 167 H, Calcium 8.3 L 05/24/23 06:03: POC Glucose 184 H 05/24/23 12:38: POC Glucose 135 H Micro: Microbiology 05/21/23 15:59 Mucosa - Nose SARS-CoV-2, Influenza & RSV (PCR) - Final SARS-CoV-2 (COVID 19) 05/22/23 04:55 Urine, Clean Catch Legionella Antigen - Final 05/22/23 04:55 Urine, Clean Catch Streptococcus pneumoniae Antigen (M - Final 05/21/23 20:17 Mucosa - Nasopharyngeal Respiratory Panel (PCR) - Final Physical Exam Narrative General: Alert, Oriented x3, Cooperative, mild respiratory distress HEENT: Atraumatic, PERRLA, EOMI, Normocephalic Oral: Moist Mucosa Neck: Supple, No JVD Lungs: Diminished, Normal air movement, rhonchi, wheeze, No rales, tachypnea with conversational dyspnea Cardiovascular: Regular rate, Regular Rhythm, Normal S1, Normal S2, No murmurs Abdomen: Soft, Non Tender, Non-Distended, No Hepato-splenomegaly Extremities: No edema, Capillary Refill Less than 3 Seconds Skin: No rashes, No breakdown Musculoskeletal: No Tenderness to Palpation of Joints or Extremities Neurological: No focal neurological deficit, motor Exam 5/5 strength throughout, Sensory exam intact to light touch and pain Psych/Mental Status: Normal Affect, Appropriate Assessment & Plan Assessment/Plan (1) Acute exacerbation of COPD with asthma: (2) COVID-19: PLAN: Plan 1. Acute hypoxic respiratory failure acute exacerbation of COPD with asthma likely precipitated by COVID/EDWIN on CKD 3B/JOSE/tobacco abuse ? Her acute hypoxic respiratory failure appears to have occurred after admission as she has been on CPAP most of the day and is having hypoxia on the monitor into the 80s. ? She has been symptomatic for the last 2 to 3 weeks and initially only had ambulatory hypoxia however now during my examination she was hypoxic into the high 70s low 80s while on CPAP ? Will continue with steroids and breathing treatments, unfortunately it is unclear whether she is having active COVID given that symptoms started 2 to 3 weeks ago therefore we will continue with treatment for just COPD but it is likely that her respiratory issues were instigated by COVID ? She is not vaccinated ? Will hold off on any Lasix as she did come in acute renal failure with creatinine of 2.34, creatinine today is 1.24 ? VQ scan and lower extremity Doppler negative for DVT and PE ? Discussed tobacco cessation 2. CAD status post stent/HTN/HLD ? Blood pressures are stable can resume her home medications ? Continue with Lipitor and antiplatelets ? We will monitor make adjustments as necessary 3. DM2 ? Does not appear to take medications for this at home ? Given steroids in place, continue with sliding scale insulin ? Accu-Cheks ACHS ? Will monitor make adjustments as necessary 4. Rheumatoid arthritis ? Stable ? We will hold her home methotrexate due to current illness 5. GERD ? Stable ? Continue with PPI 6. Chronic pain/anxiety/depression/bipolar disorder ? Stable ? She will continue with her home medications DVT: Heparin Charges/Coding Visit Charges Inpatient E&M: 80541 Subs Hosp L2
[2023-05-24 17:41] LABS: Bedside Glucose 146 mg/dL (74-106)
[2023-05-24] MEDS: Atorvastatin Calcium 40 MG Tablet PO (21:11)
[2023-05-25] VITALS (20 sets, daily range): BP systolic 149–192; BP diastolic 74–98; PULSE 57–76; RESP 24–40; TEMP 36.1–37.2; O2SAT 89–99
[2023-05-25 00:51] LABS: Bedside Glucose 155 mg/dL (74-106)
[2023-05-25] MEDS: Ipratropium/Albuterol Sulfate 3 ML AMPUL.NEB INHALATION ×6 (02:11→23:18)
[2023-05-25 06:38] LABS: Absolute Lymphocyte Count 0.88 X10^3/uL (0.83-4.51); Absolute Neutrophil Count 10.9 X10^3/uL (2.0-7.7); Basophil# 0.02 X10^3/uL; Basophil% 0.2 % (0-1); Eosinophil# 0.01 X10^3/uL; Eosinophils% 0.1 % (0-5); Hematocrit 33.2 % (37-47); Hemoglobin 11.7 g/dL (12.0-15.0); Lymphocyte # 0.88 X10^3/ul (0.83-4.51); Lymphocyte % 6.9 % (19-41); Mean Corp Hgb Conc 35.2 g/dL (32-36); Mean Corpuscular Hgb 34.2 pg (27.0-32.0); Mean Corpuscular Volume 97.1 fL (81-99); Mean Platelet Vol. 10.5 fl (6.2-12.0); Monocyte# 0.72 X10^3/uL; Monocyte% 5.7 % (0-10); NRBC Flagged by Analyzer 0 % (0-5); Neutrophil # 10.91 X10^3/uL (2.7-7.7); Neutrophil % 85.8 % (47-70); POSITIVE MORPHOLOGY YES; Platelet Count 176 K/mm3 (150-450); RBC Distribution Width CV 16.2 % (11.6-14.6); RBC Distribution Width SD 57.2 fl (35.1-43.9); Red Blood Count 3.42 M/mm3 (4.2-5.4); White Blood Count 12.7 K/mm3 (4.4-11.0)
[2023-05-25 06:43] LABS: Differential Indicated SCAN CRITERIA MET
[2023-05-25] MEDS: Acetaminophen 325 MG Tablet 650 MG PO (06:47)
[2023-05-25] MEDS: ALPRAZolam 0.5 MG Tablet PO ×2 (06:47→21:30)
[2023-05-25] MEDS: Heparin Injection (Vial) 5,000 UNIT/ML VIAL 5000 UNIT SC ×3 (06:52→21:30)
[2023-05-25] MEDS: Insulin Lispro 100 UNIT/ML INSULN.PEN SC ×2 (06:54→12:20)
[2023-05-25 07:03] LABS: Anion Gap 6 (5-15); BUN 22 mg/dL (7-18); BUN/Creat Ratio 23.4 RATIO (10-20); Calcium,Total 8.2 mg/dL (8.5-10.1); Chloride 105 mmol/L (98-107); Creatinine, Serum 0.94 mg/dL (0.55-1.02); EST Glomerular Filtration Rate 65 mL/min (>60); Est Glom Filt Rate - Afr Amer 79 mL/min (>60); Estimated Creatinine Clearance 81.31 ml/min; Glucose 174 mg/dL (74-106); Potassium 4.7 mmol/L (3.5-5.1); Sodium Level 134 mmol/L (136-145)
[2023-05-25 07:16] LABS: Differential Comment SCANNED
[2023-05-25 07:36] LABS: Bedside Glucose 173 mg/dL (74-106)
[2023-05-25] MEDS: guaiFENesin 1,200 MG Tablet 1200 MG PO ×2 (10:31→21:30)
[2023-05-25] MEDS: Escitalopram Oxalate 20 MG Tablet PO (10:31)
[2023-05-25] MEDS: lamoTRIgine 100 MG Tablet 200 MG PO (10:31)
[2023-05-25] MEDS: Pantoprazole Sodium 40 MG Tablet PO (10:31)
[2023-05-25] MEDS: Clopidogrel Bisulfate 75 MG Tablet PO (10:31)
[2023-05-25] MEDS: Carvedilol 6.25 MG Tablet PO ×2 (10:32→21:29)
[2023-05-25] MEDS: Pregabalin 75 MG Capsule PO ×2 (10:32→21:44)
[2023-05-25] MEDS: Aspirin E.C. 81 MG Tablet PO (10:32)
[2023-05-25] MEDS: diazePAM 2 MG Tablet PO (10:32)
--- NOTE | 2023-05-25 10:46 | PN.HOSP_ITS ---
Subjective Subjective No issues overnight. Nursing reports suspicions of anxiety Objective Data Objective Data Vital Signs: Vital Signs Temp Pulse Resp BP Pulse Ox O2 Del Method O2 Flow Rate 97.8 F 75 29 H 152/80 H 94 CPAP 4 05/25/23 10:28 05/25/23 10:28 05/25/23 10:28 05/25/23 10:28 05/25/23 10:28 05/25/23 10:05/25/23 10:28 FiO2 2 05/25/23 07:17 Oxygen Flow Rate (L/min) 4 Oxygen Delivery Method CPAP Weight: 271 lb 13.279 oz Body Mass Index (BMI) 51.3 Intake & Output: Intake and Output for Last 24 Hours 05/24/23 05/25/23 05/26/23 03:59 03:59 03:59 Intake Total 800 / 800 200 / 200 Output Total 500 / 500 Balance 300 / 300 200 / 200 Lab / Micro Data 05/25/23 06:31 05/25/23 06:31 Labs: Laboratory Results - last 24 hr 05/24/23 12:38: POC Glucose 135 H 05/24/23 17:23: POC Glucose 146 H 05/24/23 20:58: POC Glucose 155 H 05/25/23 06:31: WBC 12.7 H, RBC 3.42 L, Hgb 11.7 L, Hct 33.2 L, MCV 97.1, MCH 34.2 H, MCHC 35.2, RDW Std Deviation 57.2 H, RDW Coeff of Erlinda 16.2 H, Plt Count 176, MPV 10.5, Immature Gran % (Auto) 1.300 H, Neut % (Auto) 85.8 H, Lymph % (Auto) 6.9 L, [place] % (Auto) 5.7, Eos % (Auto) 0.1, Baso % (Auto) 0.2, Absolute Neuts (auto) 10.9 H, Absolute Lymphs (auto) 0.88, Nucleated RBC % 0, D ifferential Comment SCANNED, Sodium 134 L, Potassium 4.7, Chloride 105, Carbon Dioxide 23.0, Anion Gap 6, BUN 22 H, Creatinine 0.94, Estim Creat Clear Calc 81.31, Est GFR (MDRD) Af Amer 79, Est GFR (MDRD) Non-Af 65, BUN/Creatinine Ratio 23.4 H, Glucose 174 H, Calcium 8.2 L 05/25/23 06:53: POC Glucose 173 H Micro: Microbiology 05/21/23 15:59 Mucosa - Nose SARS-CoV-2, Influenza & RSV (PCR) - Final SARS-CoV-2 (COVID 19) 05/22/23 04:55 Urine, Clean Catch Legionella Antigen - Final 05/22/23 04:55 Urine, Clean Catch Streptococcus pneumoniae Antigen (M - Final 05/21/23 20:17 Mucosa - Nasopharyngeal Respiratory Panel (PCR) - Final Physical Exam Narrative General: Alert, Oriented x3, Cooperative, mild respiratory distress HEENT: Atraumatic, PERRLA, EOMI, Normocephalic Oral: Moist Mucosa Neck: Supple, No JVD Lungs: Diminished, Normal air movement, rhonchi, wheeze, No rales, tachypnea with conversational dyspnea Cardiovascular: Regular rate, Regular Rhythm, Normal S1, Normal S2, No murmurs Abdomen: Soft, Non Tender, Non-Distended, No Hepato-splenomegaly Extremities: No edema, Capillary Refill Less than 3 Seconds Skin: No rashes, No breakdown Musculoskeletal: No Tenderness to Palpation of Joints or Extremities Neurological: No focal neurological deficit, motor Exam 5/5 strength throughout, Sensory exam intact to light touch and pain Psych/Mental Status: Anxious Assessment & Plan Assessment/Plan (1) Acute exacerbation of COPD with asthma: (2) COVID-19: PLAN: Plan 1. Acute hypoxic respiratory failure acute exacerbation of COPD with asthma likely precipitated by COVID/EDWIN on CKD 3B/JOSE/tobacco abuse ? Her acute hypoxic respiratory failure appears to have occurred after admission as she has been on CPAP most of the day and is having hypoxia on the monitor into the 80s. ? She has been symptomatic for the last 2 to 3 weeks and initially only had ambulatory hypoxia however now during my examination she was hypoxic into the high 70s low 80s while on CPAP ? Will continue with steroids and breathing treatments, unfortunately it is un clear whether she is having active COVID given that symptoms started 2 to 3 weeks ago therefore we will continue with treatment for just COPD but it is likely that her respiratory issues were instigated by COVID ? She is not vaccinated ? Will trial her on a dose of IV Lasix now that her renal function is back to baseline and also provided with a dose of Valium x 1 to see if it helps with her respiratory status and her anxiety ? VQ scan and lower extremity Doppler negative for DVT and PE ? Discussed tobacco cessation 2. CAD status post stent/HTN/HLD ? Blood pressures are stable can resume her home medications ? Continue with Lipitor and antiplatelets ? We will monitor make adjustments as necessary 3. DM2 ? Does not appear to take medications for this at home ? Given steroids in place, continue with sliding scale insulin ? Accu-Cheks ACHS ? Will monitor make adjustments as necessary 4. Rheumatoid arthritis ? Stable ? We will hold her home methotrexate due to current illness 5. GERD ? Stable ? Continue with PPI 6. Chronic pain/anxiety/depression/bipolar disorder ? Stable ? She will continue with her home medications DVT: Heparin Charges/Coding Visit Charges Inpatient E&M: 94763 Subs Hosp L2
--- NOTE | 2023-05-25 11:25 | CPS ---
Patient switched from CPAP to VAUTO/BiPAP due to high rr and work of breathing. Max IPAP=26, min EPAP=14 with 4lpm bleed in. Patient tolerating well, RN aware.
[2023-05-25] MEDS: Furosemide 20 MG/2 ML VIAL IV (12:19)
[2023-05-25] MEDS: 0.9% Saline Lock 10 ML Syringe IV ×3 (12:19→21:44)
[2023-05-25 12:44] LABS: Bedside Glucose 189 mg/dL (74-106)
[2023-05-25 17:37] LABS: Bedside Glucose 134 mg/dL (74-106)
[2023-05-25] MEDS: Atorvastatin Calcium 40 MG Tablet PO (21:29)
[2023-05-25 21:59] LABS: Bedside Glucose 156 mg/dL (74-106)
[2023-05-26] VITALS (16 sets, daily range): BP systolic 152–187; BP diastolic 65–88; PULSE 38–89; RESP 12–55; TEMP 36.1–36.8; O2SAT 93–97
[2023-05-26] MEDS: Ipratropium/Albuterol Sulfate 3 ML AMPUL.NEB INHALATION ×6 (03:28→22:49)
[2023-05-26] MEDS: Heparin Injection (Vial) 5,000 UNIT/ML VIAL 5000 UNIT SC ×3 (05:34→20:40)
[2023-05-26 06:15] LABS: Absolute Lymphocyte Count 0.85 X10^3/uL (0.83-4.51); Absolute Neutrophil Count 9.7 X10^3/uL (2.0-7.7); Basophil# 0.04 X10^3/uL; Basophil% 0.4 % (0-1); Hematocrit 32.1 % (37-47); Hemoglobin 11.2 g/dL (12.0-15.0); Lymphocyte # 0.85 X10^3/ul (0.83-4.51); Lymphocyte % 7.6 % (19-41); Mean Corp Hgb Conc 34.9 g/dL (32-36); Mean Corpuscular Hgb 33.3 pg (27.0-32.0); Mean Corpuscular Volume 95.5 fL (81-99); Mean Platelet Vol. 10.7 fl (6.2-12.0); Monocyte# 0.45 X10^3/uL; NRBC Flagged by Analyzer 0 % (0-5); Neutrophil # 9.66 X10^3/uL (2.7-7.7); Neutrophil % 85.8 % (47-70); Platelet Count 196 K/mm3 (150-450); RBC Distribution Width CV 15.9 % (11.6-14.6); RBC Distribution Width SD 55.2 fl (35.1-43.9); Red Blood Count 3.36 M/mm3 (4.2-5.4); White Blood Count 11.3 K/mm3 (4.4-11.0)
[2023-05-26] MEDS: Benzonatate 100 MG Capsule 200 MG PO (06:37)
[2023-05-26] MEDS: ALPRAZolam 0.5 MG Tablet PO ×2 (06:37→20:38)
[2023-05-26 06:40] LABS: Anion Gap 5 (5-15); BUN 21 mg/dL (7-18); BUN/Creat Ratio 21.2 RATIO (10-20); Calcium,Total 7.8 mg/dL (8.5-10.1); Chloride 103 mmol/L (98-107); Creatinine, Serum 0.99 mg/dL (0.55-1.02); EST Glomerular Filtration Rate 61 mL/min (>60); Est Glom Filt Rate - Afr Amer 74 mL/min (>60); Glucose 171 mg/dL (74-106); Potassium 4.5 mmol/L (3.5-5.1); Sodium Level 134 mmol/L (136-145)
[2023-05-26] MEDS: Insulin Lispro 100 UNIT/ML INSULN.PEN SC ×2 (06:42→13:22)
[2023-05-26] MEDS: Losartan Potassium 50 MG Tablet PO (06:47)
[2023-05-26 07:10] LABS: Bedside Glucose 166 mg/dL (74-106)
--- NOTE | 2023-05-26 07:35 | CPS ---
Addendum entered by Arely Holden 05/26/23 07:40: Encouraged patient to cough and attempt to cough up sputum and spit it out. Patient states that is easier said than done, i puke when i do that. Original Note: Patient coached to slow breathing and focus on deeper breaths. In through the nose and out through the mouth. Patient said it's hard to do. Patient will attempt one or two deep breaths and back to shallow breathing. Respiratory rate maintains 40+ while in room, unsure if this is maintained when patient is alone.
--- NOTE | 2023-05-26 07:48 | CT_ITS ---
STUDY: CTA CHEST REASON FOR EXAM: Female, 58 years old. Atypical chest pain, diaphoresis RADIATION DOSAGE (If Supplied By Facility): CTDIvol = ( 12.66 ) mGy, DLP = ( 547.37 ) mGycm TECHNIQUE: The examination was performed with the intravenous administration of IV 100mL Isovue-370. Post-processing of the angiographic images was performed, with multiplanar reformation and 3D reconstruction. Individualized dose optimization techniques were used for this CT. COMPARISON: None. FINDINGS: Normal enhancement of the main pulmonary artery and right and left pulmonary arteries. Normal enhancement of the bilateral peripheral pulmonary arteries. There is no demonstrated pulmonary embolism. Normal thoracic aorta and visualized great vessels. There is no demonstrated aortic dissection. Normal heart and pericardium. No suspicious axillary, mediastinal or perihilar adenopathy. There are subcentimeter in short axis dimension mediastinal lymph nodes which are likely reactive. There is peribronchial thickening. The lungs are well expanded. Diffuse patchy airspace opacifications noted in both lung [place] with pleural thickening but no pleural effusions. Pattern of opacification is suspicious for Covid pneumonia Normal chest wall structures. There are degenerative changes of thoracic spine. Normal visualized upper abdomen. CT/CTA Chest W/WO Contrast IMPRESSION: No demonstrated PE, or thoracic aortic aneurysm or dissection Diffuse airspace opacifications in both lung [place] without effusions. Pattern of opacification is suspicious for Covid pneumonia. Likely reactive mediastinal lymph nodes Degenerative bony changes Electronically Signed: Homero Singh MD at 9:50 EST ,
[2023-05-26 08:15] LABS: Base Excess 1 mmol/L (-2 to +2); Bicarbonate 25.7 mmol/L (22-26); Blood Gas Specimen Type ART; FI02 4.5; Mode Not entered; O2 Delivery Device Cannula; PO2 69 mmHG (75-100); SITE R Brach; SO2 94 % (95-99); Total Carbon Dioxide 27 mmol/L; pCO2 40.9 mmHg (35-45); pH 7.41 (7.35-7.45)
[2023-05-26] MEDS: lamoTRIgine 100 MG Tablet 200 MG PO (08:27)
[2023-05-26] MEDS: 0.9% Saline Lock 10 ML Syringe IV ×2 (08:27→13:17)
[2023-05-26] MEDS: Escitalopram Oxalate 20 MG Tablet PO (08:28)
[2023-05-26] MEDS: Carvedilol 6.25 MG Tablet PO ×2 (08:28→20:39)
[2023-05-26] MEDS: Aspirin E.C. 81 MG Tablet PO (08:28)
[2023-05-26] MEDS: Furosemide 40 MG/4 ML Vial IV (08:29)
[2023-05-26] MEDS: Pantoprazole Sodium 40 MG Tablet PO (08:29)
[2023-05-26] MEDS: guaiFENesin 1,200 MG Tablet 1200 MG PO ×2 (08:29→20:40)
[2023-05-26] MEDS: Clopidogrel Bisulfate 75 MG Tablet PO (08:29)
[2023-05-26] MEDS: diazePAM 5 MG Tablet PO (08:30)
[2023-05-26] MEDS: Pregabalin 75 MG Capsule PO ×2 (08:30→20:39)
[2023-05-26] MEDS: Acetaminophen 325 MG Tablet 650 MG PO (08:33)
--- NOTE | 2023-05-26 09:05 | PN.HOSP_ITS ---
Subjective Subjective Unclear as to why she appears to be struggling, she is 96% on her nasal cannula and ABG today shows normal pH with a normal CO2 with a reduced pO2 that does not appear to correlate with her oxygen saturation. She does feel that there is some anxiety going on so we will repeat a dose of Valium and also increase the dose of Lasix today CTA of the chest is pending Objective Data Objective Data Vital Signs: Vital Signs Temp Pulse Resp BP Pulse Ox O2 Del Method O2 Flow Rate 98.1 F 74 46 H 157/81 H 96 High Flow 4.5 05/26/23 08:25 05/26/23 08:25 05/26/23 08:25 05/26/23 08:25 05/26/23 08:25 05/26/23 08:25 05/26/23 08:25 FiO2 3 05/25/23 15:37 Oxygen Flow Rate (L/min) 4.5 Oxygen Delivery Method High Flow Weight: 271 lb 13.279 oz Body Mass Index (BMI) 51.3 Intake & Output: Intake and Output for Last 24 Hours 05/25/23 05/26/23 05/27/23 03:59 03:59 03:59 Intake Total 200 / 200 300 / 300 200 / 200 Output Total 500 / 500 Balance 200 / 200 -200 / -200 200 / 200 Lab / Micro Data 05/26/23 05:55 05/26/23 05:55 Labs: Laboratory Results - last 24 hr 05/25/23 12:18: POC Glucose 189 H 05/25/23 17:08: POC Glucose 134 H 05/25/23 21:40: POC Glucose 156 H 05/26/23 05:55: WBC 11.3 H, RBC 3.36 L, Hgb 11.2 L, Hct 32.1 L, MCV 95.5, MCH 33.3 H, MCHC 34.9, RDW Std Deviation 55.2 H, RDW Coeff of Erlinda 15.9 H, Plt Count 196, MPV 10.7, Immature Gran % (Auto) 2.200 H, Neut % (Auto) 85.8 H, Lymph % (Auto) 7.6 L, Kane % (Auto) 4.0, Eos % (Auto) 0.0, Baso % (Auto) 0.4, Absolute Neuts (auto) 9.7 H, Absolute Lymphs (auto) 0.85, Nucleated RBC % 0, Sodium 134 L , Potassium 4.5, Chloride 103, Carbon Dioxide 26.0, Anion Gap 5, BUN 21 H, Creatinine 0.99, Estim Creat Clear Calc 77.20, Est GFR (MDRD) Af Amer 74, Est GFR (MDRD) Non-Af 61, BUN/Creatinine Ratio 21.2 H, Glucose 171 H, Calcium 7.8 L 05/26/23 06:42: POC Glucose 166 H Micro: Microbiology 05/21/23 15:59 Mucosa - Nose SARS-CoV-2, Influenza & RSV (PCR) - Final SARS-CoV-2 (COVID 19) 05/22/23 04:55 Urine, Clean Catch Legionella Antigen - Final 05/22/23 04:55 Urine, Clean Catch Streptococcus pneumoniae Antigen (M - Final 05/21/23 20:17 Mucosa - Nasopharyngeal Respiratory Panel (PCR) - Final ABG Data ABG results: ABG 05/26/23 08:10 Specimen Type ART Sample Site R Brach pH 7.41 Bicarbonate Actual 25.7 Total CO2 27 Base Excess 1 O2 Saturation 94 L O2 % 4.5 ABG pCO2 40.9 ABG pO2 69 L Teddy Test N/A O2 Delivery Device Cannula Vent Mode Not entered Physical Exam Narrative General: Alert, Oriented x3, Cooperative, mild respiratory distress HEENT: Atraumatic, PERRLA, EOMI, Normocephalic Oral: Moist Mucosa Neck: Supple, No JVD Lungs: Diminished, Normal air movement, rhonchi, wheeze, No rales, tachypnea with conversational dyspnea Cardiovascular: Regular rate, Regular Rhythm, Normal S1, Normal S2, No murmurs Abdomen: Soft, Non Tender, Non-Distended, No Hepato-splenomegaly Extremities: No edema, Capillary Refill Less than 3 Seconds Skin: No rashes, No breakdown Musculoskeletal: No Tenderness to Palpation of Joints or Extremities Neurological: No focal neurological deficit, motor Exam 5/5 strength throughout, Sensory exam intact to light touch and pain Psych/Mental Status: Anxious Assessment & Plan Assessment/Plan (1) Acute exacerbation of COPD with asthma: (2) COVID-19: PLAN: Plan 1. Acute hypoxic respiratory failure acute exacerbation of COPD with asthma l ikely precipitated by COVID/EDWIN on CKD 3B/JOSE/tobacco abuse ? Her acute hypoxic respiratory failure appears to have occurred after admission as she has been on CPAP most of the day and is having hypoxia on the monitor into the 80s. ? She has been symptomatic for the last 2 to 3 weeks and initially only had ambulatory hypoxia however now during my examination she was hypoxic into the high 70s low 80s while on CPAP ? Will continue with steroids and breathing treatments, unfortunately it is unclear whether she is having active COVID given that symptoms started 2 to 3 weeks ago therefore we will continue with treatment for just COPD but it is likely that her respiratory issues were instigated by COVID ? She is not vaccinated ? Will trial her on a dose of IV Lasix now that her renal function is back to baseline and also provided with a dose of Valium x 1 to see if it helps with her respiratory status and her anxiety ? VQ scan and lower extremity Doppler negative for DVT and PE however given her continued anxiety and distress will obtain a CTA of the chest now that her renal functions at baseline ? If CTA of the chest is unremarkable then we will proceed with pulmonology consult ? Discussed tobacco cessation 2. CAD status post stent/HTN/HLD ? Blood pressures are stable can resume her home medications ? Continue with Lipitor and antiplatelets ? We will monitor make adjustments as necessary 3. DM2 ? Does not appear to take medications for this at home ? Given steroids in place, continue with sliding scale insulin ? Accu-Cheks ACHS ? Will monitor make adjustments as necessary 4. Rheumatoid arthritis ? Stable ? We will hold her home methotrexate due to current illness 5. GERD ? Stable ? Continue with PPI 6. Chronic pain/anxiety/depression/bipolar disorder ? Stable ? She will continue with her home medications DVT: Heparin Charges/Coding Visit Charges Inpatient E&M: 97288 Subs Hosp L2
--- NOTE | 2023-05-26 11:16 | CPS ---
Patient placed on V60 with AVAPS settings. Dr hale.
--- NOTE | 2023-05-26 11:38 | CPS ---
Patient's pulse ox alarming at 85%. Upon entering room, patient had removed the Bipap mask, and could not get mask back on. Patient placed back on bipap. Patient encouraged to press the call light if she needs off the Bipap. Reminded patient that if the Bipap Mask comes off that the nasal cannula needs to be worn.
[2023-05-26 12:37] LABS: Bedside Glucose 162 mg/dL (74-106)
[2023-05-26] MEDS: Vancomycin HCl 2,000 MG in 0.9% Normal Saline (500mL Bag) 500 ML 250 MG IV (13:16)
--- NOTE | 2023-05-26 13:40 | PCM.RX.CS ---
Consult Antibiotic Management Pharmacy has been consulted to manage selected antibiotic: Vancomycin Type of Intervention Type of Consult: New start Suspected Infection Suspected Infection: Pneumonia Prior Doses of Antibiotics Prior Doses of Antibiotics Received/Current Regimen: Vancomycin 2000 mg IV x1 given 05/26/23 @ 1316, patient is also on piperacillin/tazobactam 3.375 grams q8h Labs Labs: Sodium 134 mmol/L (136-145) L 05/26/23 05:55 Potassium 4.5 mmol/L (3.5-5.1) 05/26/23 05:55 Chloride 103 mmol/L (98-107) 05/26/23 05:55 Carbon Dioxide 26.0 mmol/L (21.0-32.0) 05/26/23 05:55 Anion Gap 5 (5-15) 05/26/23 05:55 BUN 21 mg/dL (7-18) H 05/26/23 05:55 Creatinine 0.99 mg/dL (0.55-1.02) 05/26/23 05:55 Est GFR (MDRD) Af Amer 74 mL/min (>60) 05/26/23 05:55 Est GFR (MDRD) Non-Af 61 mL/min (>60) 05/26/23 05:55 BUN/Creatinine Ratio 21.2 RATIO (10-20) H 05/26/23 05:55 Glucose 171 mg/dL (74-106) H 05/26/23 05:55 Microbiology Microbiology: Microbiology 05/21/23 15:59 Mucosa - Nose SARS-CoV-2, Influenza & RSV (PCR) - Final SARS-CoV-2 (COVID 19) 05/22/23 04:55 Urine, Clean Catch Legionella Antigen - Final 05/22/23 04:55 Urine, Clean Catch Streptococcus pneumoniae Antigen (M - Final 05/21/23 20:17 Mucosa - Nasopharyngeal Respiratory Panel (PCR) - Final Dosing Weight Weight used for dosin.3 kg Estimated Creatinine Clearance Estimated Creatinine Clearance: ~77 Goal Trough Goal Trough: 15-20 mcg/mL Pharmacy Plan for Drug Dosing Pharmacy Plan for Drug Dosing: Vancomycin 2000 mg IV x1 loading dose then 1750 mg IV Q12H based on weight and renal function, trough prior to 4th total dose. Pharmacy Service will continue to monitor and adjust dosing as required. Follow-Up Labs Follow-Up Labs: Trough: Vancomycin Date/Time Labs Ordered Labs to be done on [date and time ordered]: 05/28/23 @ 0030
[2023-05-26 15:25] LABS: M R Staph aureus DNA By PCR Negative (Negative); Probe Check PASS; Specimen Processing Control PASS
--- NOTE | 2023-05-26 15:40 | CPS ---
Patient got up to bedside commode after aerosol. Sats dropped to 84% on the 4lpm nasal cannula. Patient placed back on the VAUTO/BiPAP machine, RN aware. Sats quickly returned to 90's after only 1-2 minutes.
[2023-05-26] MEDS: Piperacil/Tazobactam 3.375 GM in 0.9% Normal Saline (50mL MB+) 50 ML IV ×2 (16:20→20:41)
[2023-05-26 16:45] LABS: Bedside Glucose 143 mg/dL (74-106)
[2023-05-26] MEDS: Atorvastatin Calcium 40 MG Tablet PO (20:37)
[2023-05-26 21:38] LABS: Bedside Glucose 187 mg/dL (74-106)
[2023-05-27] VITALS (17 sets, daily range): BP systolic 95–165; BP diastolic 67–87; PULSE 49–95; RESP 12–35; TEMP 36.6–36.8; O2SAT 92–96
[2023-05-27] MEDS: Vancomycin HCl 1,750 MG in 0.9% Normal Saline (500mL Bag) 500 ML 250 MG IV (00:45)
[2023-05-27] MEDS: Ipratropium/Albuterol Sulfate 3 ML AMPUL.NEB INHALATION ×6 (02:13→22:52)
[2023-05-27] MEDS: Piperacil/Tazobactam 3.375 GM in 0.9% Normal Saline (50mL MB+) 50 ML IV ×3 (05:17→20:32)
[2023-05-27] MEDS: Heparin Injection (Vial) 5,000 UNIT/ML VIAL 5000 UNIT SC ×3 (05:17→20:21)
[2023-05-27 06:31] LABS: Absolute Neutrophil Count 10.2 X10^3/uL (2.0-7.7); Basophil# 0.05 X10^3/uL; Basophil% 0.4 % (0-1); Eosinophil# 0.03 X10^3/uL; Eosinophils% 0.3 % (0-5); Hematocrit 31.9 % (37-47); Lymphocyte % 6.8 % (19-41); Mean Corp Hgb Conc 34.5 g/dL (32-36); Mean Corpuscular Volume 95.8 fL (81-99); Monocyte# 0.49 X10^3/uL; Monocyte% 4.2 % (0-10); NRBC Flagged by Analyzer 0 % (0-5); Neutrophil # 10.18 X10^3/uL (2.7-7.7); Neutrophil % 86.2 % (47-70); Platelet Count 203 K/mm3 (150-450); RBC Distribution Width CV 15.7 % (11.6-14.6); RBC Distribution Width SD 53.8 fl (35.1-43.9); Red Blood Count 3.33 M/mm3 (4.2-5.4); White Blood Count 11.8 K/mm3 (4.4-11.0)
[2023-05-27 06:45] LABS: Anion Gap 4 (5-15); BUN 19 mg/dL (7-18); BUN/Creat Ratio 19.3 RATIO (10-20); Chloride 102 mmol/L (98-107); Creatinine, Serum 0.98 mg/dL (0.55-1.02); EST Glomerular Filtration Rate 62 mL/min (>60); Est Glom Filt Rate - Afr Amer 75 mL/min (>60); Estimated Creatinine Clearance 77.99 ml/min; Glucose 168 mg/dL (74-106); Potassium 4.3 mmol/L (3.5-5.1); Sodium Level 134 mmol/L (136-145)
[2023-05-27] MEDS: Insulin Lispro 100 UNIT/ML INSULN.PEN SC ×2 (06:48→12:24)
[2023-05-27 07:14] LABS: Bedside Glucose 180 mg/dL (74-106)
--- NOTE | 2023-05-27 07:54 | EX.PCM.CONCC ---
Assessment & Plan Assessment/Plan (1) COVID-19: (2) JOSE (obstructive sleep apnea): PLAN: Plan RECOMMENDATIONS: 1. Wean supplemental oxygen to maintain saturations at or above 90%. 2. Continue scheduled bronchodilators and steroids. 3. Agree with empiric antibiotics. Given negative MRSA screen, will discontinue vancomycin. 4. Continue nocturnal PAP therapy per home regimen. 5. Encourage incentive spirometer use and mobilize patient as tolerated. 6. Perform walking oximetry study prior to consideration for discharge home. 7. Outpatient follow-up with primary pulmonary provider at [facility] as recommended after discharge. IMPRESSIONS: 1. Acute hypoxemic respiratory failure Most likely secondary to asthma exacerbation precipitated by COVID-19 pneumonia. Given the findings noted on CT imaging, I agree with continuing broad-spectrum antimicrobials to cover for potential secondary bacterial pneumonia. No pulmonary embolism was identified. Continue to wean supplemental oxygen to maintain saturations at or above 90%. I agree with continuing scheduled bronchodilators and steroids. Given that the patient had a negative MRSA screen, will discontinue vancomycin. Otherwise, continue to encourage incentive spirometer use and mobilize patient as tolerated. I do anticipate that the patient will have a home-going supplemental oxygen requirement. 2. History of obstructive sleep apnea Continue nocturnal PAP therapy per home regimen. 3. Morbid obesity/tobacco dependency/rheumatoid arthritis/chronic pain syndrome/coronary artery disease/hypertension Complicates care, management, recovery and prognosis. Continue supportive care as noted above. This note was generated with [employer] dictation software. It may contain incorrect words, spelling, and punctuation that were not noted in checking the note before signing. HPI Consult Data Date of Consult: 05/27/23 HPI Narrative Reason for Consultation: Respiratory failure HPI Narrative: The patient is a 58-year-old female, with a history as outlined below, who presented to the emergency department on May 21 with shortness of breath, cough and wheezing. The patient does have a tobacco abuse history of 0.5 packs of cigarettes per day. She apparently follows with an outside field insurance sales manager through [facility]. She has a history of asthma and obstructive sleep apnea, for which she currently utilizes nocturnal CPAP therapy. The patient was found to be positive for COVID-19 in the emergency department. Lower extremity Doppler study was negative for DVT. The patient was initially medically managed with aerosol treatments and steroids. She was admitted to the medical surgical floor for further management. The patient's hospital course has been complicated by worsening respiratory status. CTA chest completed yesterday demonstrated no evidence for pulmonary embolism. However, diffuse bilateral airspace opacifications were noted. Morning laboratory evaluation was stable. The patient remains on scheduled bronchodilators, IV steroids and antimicrobials. [facility] Medical History Anxiety and depression Atherosclerotic heart disease of [place] coronary artery without angina pectoris Back pain Bipolar disorder Brain tumor Bronchitis Cardiac arrest with ventricular fibrillation Cardiomyopathy Coronary artery disease CPAP (continuous positive airway pressure) dependence Degeneration of intervertebral disc of lumbosacral region Diabetes mellitus, type II Essential hypertension Hiatal hernia High cholesterol HLD (hyperlipidemia) Hypertension Lumbar facet arthropathy Lumbosacral spondylosis Migraines Obesity (BMI 30-39.9) Osteoarthritis Post-menopausal Presence of stent in coronary artery (~05/17/22) Seizures Sleep apnea Smoker ST elevation (STEMI) myocardial infarction Home Medications nitroglycerin 0.4 mg sublingual tablet 0.4 mg sublingual Q5M PRN CHEST PAIN #30 tabs 04/06/22 [Rx Last Taken Unknown] escitalopram oxalate 20 mg tablet 30 mg PO DAILY DEPRESSION 05/08/22 [History Last Taken 05/17/22] pregabalin 75 mg capsule 75 mg PO BID PAIN 05/08/22 [History Last Taken 05/17/22] aspirin 81 mg tablet,delayed release 81 mg PO DAILY@0800 HEART HEALTH #90 tabs 06/05/22 [Rx Last Taken 05/20/23] atorvastatin 40 mg tablet 40 mg PO QHS CHOLESTEROL #90 tabs 06/05/22 [Rx Last Taken 05/20/23] carvedilol 6.25 mg tablet 6.25 mg PO BID HEART #180 tabs 06/05/22 [Rx Last Taken 05/21/23] methotrexate sodium 2.5 mg tablet 15 mg PO QWEEK RHEUMATOID ARTHRITIS 06/05/22 [History Last Taken Unknown] zolpidem 10 mg tablet (Ambien) 10 mg PO QHS PRN SLEEP 08/29/22 [History Last Taken 05/20/23] albuterol sulfate 90 mcg/actuation aerosol inhaler 2 puff inhalation Q4H PRN SHORTNESS OF BREATH/WHEEZING 05/21/23 [History Last Taken 05/21/23] alprazolam 0.5 mg tablet 0.5 mg PO BID PRN ANXIETY 05/21/23 [History Last Taken 05/20/23] buprenorphine 20 mcg/hour weekly transdermal patch 1 patch transdermal TH SEVERE PAIN 05/21/23 [History Last Taken 05/16/23] clopidogrel 75 mg tablet 75 mg PO DAILY BLOOD THINNER 05/21/23 [History Last Taken 05/19/23] diclofenac sodium 1 % topical gel 2 g topical 4X/DAY PRN PAIN 05/21/23 [History Last Taken 05/20/23] fluticasone furoate 200 mcg-vilanterol 25 mcg/dose inhalation powder (Breo Ellipta) 1 inh inhalation DAILY ASTHMA 05/21/23 [History Last Taken Unknown] lansoprazole 30 mg capsule,delayed release 30 mg PO DAILY ACID REFLUX 05/21/23 [History Last Taken 05/20/23] lidocaine 5 % topical ointment 1 applic topical 4X/DAY PRN PAIN 05/21/23 [History Last Taken Unknown] valbenazine 80 mg capsule (Ingrezza) 80 mg PO DAILY tardive dyskinesia 05/21/23 [History Last Taken 05/20/23] losartan 50 mg tablet 50 mg PO DAILY blood pressure 05/26/23 [History Last Taken Unknown] Allergy/AdvReac Type Severity Reaction Status Date / Time tramadol HCl [From Ultram] Allergy Rash Verified 05/21/23 14:23 cariprazine [From Vraylar] AdvReac Other Verified 05/21/23 14:23 codeine AdvReac Vomiting Verified 05/21/23 14:23 hydromorphone [From Dilaudid] AdvReac Nausea/Vom/ Verified 05/21/23 14:23 Diarrhea oxycodone HCl [From Percocet] AdvReac Vomiting Verified 05/21/23 14:23 quetiapine [From Seroquel] AdvReac Other Verified 05/21/23 14:23 Family History Father CHF (congestive heart failure) Other Cardiac arrest with ventricular fibrillation Cardiomyopathy Heart disease Surgical History History of back surgery History of carpal tunnel surgery Hx of knee surgery Hx of neck surgery Presence of coronary angioplasty implant and graft (~05/17/22) Social History household members: significant other Smoking Status: Current every day smoker tobacco type: cigarettes alcohol intake: never substance use type: does not use caffeine: Yes Type: carbonated beverages Number of servings: 1 ROS ROS Narrative 10 systems were reviewed with pertinent positives as noted in the HPI above. Physical Exam Const alert and no apparent distress Constitutional Narrative: Morbidly obese. Sitting in bedside recliner. General Appearance: cooperative HEENT normocephalic and head/scalp atraumatic Eyes PERRL, EOMs intact bilaterally and conjunctivae normal Neck supple General: trachea midline Chest inspection of chest normal Resp normal respiratory effort Resp Narrative: Hoarse voice with mild expiratory wheezes Auscultation: diminished lung sounds Cardio regular rate and regular rhythm GI normal to inspection, nondistended, normoactive bowel sounds Extremity no clubbing, cyanosis or edema Skin no rashes or lesions noted Neuro CN's II-XII intact bilaterally, moves all extremities and no focal motor deficits Psych cooperative and affect normal Lab / Micro Data 05/27/23 06:05 05/27/23 06:05 Labs: Laboratory Results - last 24 hr 05/26/23 12:17: POC Glucose 162 H 05/26/23 13:15: MRSA (PCR) Negative 05/26/23 16:04: POC Glucose 143 H 05/26/23 20:53: POC Glucose 187 H 05/27/23 06:05: WBC 11.8 H, RBC 3.33 L, Hgb 11.0 L, Hct 31.9 L, MCV 95.8, MCH 33.0 H, MCHC 34.5, RDW Std Deviation 53.8 H, RDW Coeff of Erlinda 15.7 H, Plt Count 203, MPV 11.0, Immature Gran % (Auto) 2.100 H, Neut % (Auto) 86.2 H, Lymph % (Auto) 6.8 L, [place] % (Auto) 4.2, Eos % (Auto) 0.3, Baso % (Auto) 0.4, Absolute Neuts (auto) 10.2 H, Absolute Lymphs (auto) 0.80 L, Nucleated RBC % 0, Sodium 134 L, Potassium 4.3, Chloride 102, Carbon Dioxide 28.0, Anion Gap 4 L, BUN 19 H, Creatinine 0.98, Estim Creat Clear Calc 77.99, Est GFR (MDRD) Af Amer 75, Est GFR (MDRD) Non-Af 62, BUN/Creatinine Ratio 19.3, Glucose 168 H, Calcium 8.0 L 05/27/23 06:48: POC Glucose 180 H ABG Data ABG results: ABG 05/26/23 08:10 Specimen Type ART Sample Site R Brach pH 7.41 Bicarbonate Actual 25.7 Total CO2 27 Base Excess 1 O2 Saturation 94 L O2 % 4.5 ABG pCO2 40.9 ABG pO2 69 L Teddy Test N/A O2 Delivery Device Cannula Vent Mode Not entered Imagaing Radiology Impression Chest CTA 05/26/23 07:48 IMPRESSION: No demonstrated PE, or thoracic aortic aneurysm or dissection Diffuse airspace opacifications in both lung [place] without effusions. Pattern of opacification is suspicious for Covid pneumonia. Likely reactive mediastinal lymph nodes Degenerative bony changes Electronically Signed: Homero Singh MD at 9:50 EST , Charges/Coding Visit Charges Inpatient E&M: 08365 Init Hosp L3
[2023-05-27 08:35] LABS: BNP,B-Type NATRIURETIC PEPTIDE 69.2 pg/mL (0-100)
--- NOTE | 2023-05-27 08:51 | PCM.PN.HOSP ---
Reason for Visit Reason for Visit: Diagnoses Anemia, unspecified (05/21/23) Decreased white blood cell count, unspecified (05/21/23) Hypo-osmolality and hyponatremia (05/21/23) Chronic obstructive pulmonary disease with (acute) exacerbation (05/21/23) Unspecified asthma with (acute) exacerbation (05/21/23) Acute kidney failure, unspecified (05/21/23) Hypoxemia (05/21/23) COVID-19 (05/21/23) Subjective Subjective Patient is a 58-year-old lady admitted with progressive shortness of breath diagnosed with COVID 19 pneumonia with COPD and asthma exacerbation Objective Data Objective Data Vital Signs: Vital Signs Temp Pulse Resp BP Pulse Ox O2 Del Method O2 Flow Rate 98 F 74 32 H 146/87 H 96 High Flow 4 05/27/23 05:09 05/27/23 07:36 05/27/23 07:36 05/27/23 07:37 05/27/23 07:36 05/27/23 07:36 05/27/23 07:36 FiO2 30 05/27/23 05:10 Oxygen Flow Rate (L/min) 4 Oxygen Delivery Method High Flow Weight: 123.3 kg Body Mass Index (BMI) 51.3 Intake & Output: Intake and Output for Last 24 Hours 05/25/23 05/26/23 05/27/23 23:59 23:59 23:59 Intake Total 1090 / 1190 785 / 785 Output Total 500 / 500 Balance -500 / -200 1090 / 1190 785 / 785 Lab / Micro Data 05/27/23 06:05 05/27/23 06:05 Labs: Laboratory Results - last 24 hr 05/26/23 12:17: POC Glucose 162 H 05/26/23 13:15: MRSA (PCR) Negative 05/26/23 16:04: POC Glucose 143 H 05/26/23 20:53: POC Glucose 187 H 05/27/23 06:05: WBC 11.8 H, RBC 3.33 L, Hgb 11.0 L, Hct 31.9 L, MCV 95.8, MCH 33.0 H, MCHC 34.5, RDW Std Deviation 53.8 H, RDW Coeff of Erlinda 15.7 H, Plt Count 203, MPV 11.0, Immature Gran % (Auto) 2.100 H, Neut % (Auto) 86.2 H, Lymph % (Auto) 6.8 L, [place] % (Auto) 4.2, Eos % (Auto) 0.3, Baso % (Auto) 0.4, Absolute Neuts (auto) 10.2 H, Absolute Lymphs (auto) 0.80 L, Nucleated RBC % 0, Sodium 134 L, Potassium 4.3, Chloride 102, Carbon Dioxide 28.0, Anion Gap 4 L, BUN 19 H, Creatinine 0.98, Estim Creat Clear Calc 77.99, Est GFR (MDRD) Af Amer 75, Est GFR (MDRD) Non-Af 62, BUN/Creatinine Ratio 19.3, Glucose 168 H, Calcium 8.0 L, B-Natriuretic Peptide 69.2 05/27/23 06:48: POC Glucose 180 H Micro: Microbiology 05/21/23 15:59 Mucosa - Nose SARS-CoV-2, Influenza & RSV (PCR) - Final SARS-CoV-2 (COVID 19) 05/22/23 04:55 Urine, Clean Catch Legionella Antigen - Final 05/22/23 04:55 Urine, Clean Catch Streptococcus pneumoniae Antigen (M - Final 05/21/23 20:17 Mucosa - Nasopharyngeal Respiratory Panel (PCR) - Final Radiography Diagnostic Testing: Radiology Impression Chest CTA 05/26/23 07:48 IMPRESSION: No demonstrated PE, or thoracic aortic aneurysm or dissection Diffuse airspace opacifications in both lung [place] without effusions. Pattern of opacification is suspicious for Covid pneumonia. Likely reactive mediastinal lymph nodes Degenerative bony changes Electronically Signed: Homero Singh MD at 9:50 EST Reading Location ID and State: [address] [place] [address] , Service support , Physical Exam Narrative GENERAL: cooperative but dyspneic at rest HEENT: Atraumatic; normocephalic EYES; Anicteric, Normal Conjunctiva NECK; supple, normal thyroid, RESPIRATORY: Diminished to auscultation CARDIOVASCULAR: Regular S1 S2, GI: soft, normoactive bowel sounds, : No Renal angle tenderness; EXTREMITIES: No edema, no clubbing, MUSCULOSKELETAL: no muscle wasting NEURO: Awake; no lateralizing signs. SKIN: No Rash PSYCH; Flat affect Assessment & Plan Assessment/Plan (1) Acute exacerbation of COPD with asthma: (2) COVID-19: PLAN: Plan Patient is a 58-year-old lady admitted with progressive shortness of breath diagnosed with COVID 19 pneumonia with COPD and asthma exacerbation 1. Acute hypoxic respiratory failure ? Due to combination of COVID-19 pneumonia COPD? Exacerbation. Managed on noninvasive ventilation with consultation placed to pulmonary medicine 2. Acute COVID-19 infection 3. Suspected superimposed bacterial pneumonia ? CAT scan obtained demonstrated diffuse bilateral airspace opacification. Patient managed with broad-spectrum antibiotic therapy with vancomycin as well as Zosyn 4. COPD/asthma exacerbation ? Managed with bronchodilator treatment regimen systemic steroid as well as antibiotics as discussed above 5. Hyponatremia ? Secondary to hypovolemic hyponatremia monitoring with daily BMPs 6. Acute kidney injury ? Superimposed on chronic kidney disease stage IIIb patient did receive IV fluids 7. Coronary artery disease ? With PCI to proximal LAD and distal RCA on 05/17/2022 did continue guideline directed medical therapy 8. Hypertension - Blood pressure controlled, home medications continued with dose adjustment as needed 9. Dyslipidemia -Patient is on statin therapy, continued at home dose 10. Class III obesity with BMI of 51.4 ? Complicating care weight loss advised 11. Diabetes mellitus type II -patient's oral hypoglycemics held. Placed on long acting insulin, Accu-Cheks a.c. and at bedtime and covered with sliding scale insulin 12. Anemia - Secondary to chronic disorder monitoring H&H and transfuse if patient becomes symptomatic or hemoglobin falls below 7 13. Leukopenia ? Thought to be secondary to COVID 19 monitoring 14. Rheumatoid arthritis ? Patient is on methotrexate at home which is currently being held 15. Obstructive sleep apnea ? Patient is on nocturnal CPAP at home 17. Chronic pain syndrome ? Patient is on bupropion as well as Lyrica 18. GERD ? Patient is on PPI 19. Bipolar disorder ? Did continue patient psychotropic medications 20. Depression with anxiety ? Continue home meds 21. DVT prophylaxis ? SC Lovenox Time spent in the patient's overall evaluation,decision-making process, review of diagnostic data, adjustment of management, discussion with other providers, nursing nursing and ancillary staff involved in patient's care documentation 55 Minutes Charges/Coding Visit Charges Inpatient E&M: 68124 Subs Hosp L3
[2023-05-27] MEDS: Clopidogrel Bisulfate 75 MG Tablet PO (09:38)
[2023-05-27] MEDS: lamoTRIgine 100 MG Tablet 200 MG PO (09:38)
[2023-05-27] MEDS: Losartan Potassium 50 MG Tablet PO (09:38)
[2023-05-27] MEDS: guaiFENesin 1,200 MG Tablet 1200 MG PO ×2 (09:38→20:18)
[2023-05-27] MEDS: Escitalopram Oxalate 20 MG Tablet PO (09:38)
[2023-05-27] MEDS: Pantoprazole Sodium 40 MG Tablet PO (09:38)
[2023-05-27] MEDS: Pregabalin 75 MG Capsule PO ×2 (09:38→20:19)
[2023-05-27] MEDS: Aspirin E.C. 81 MG Tablet PO (09:38)
[2023-05-27] MEDS: Carvedilol 6.25 MG Tablet PO ×2 (09:39→20:20)
[2023-05-27] MEDS: Acetaminophen 325 MG Tablet 650 MG PO (09:44)
[2023-05-27 12:08] LABS: Bedside Glucose 163 mg/dL (74-106)
[2023-05-27 17:07] LABS: Bedside Glucose 130 mg/dL (74-106)
[2023-05-27] MEDS: Atorvastatin Calcium 40 MG Tablet PO (20:19)
[2023-05-27] MEDS: ALPRAZolam 0.5 MG Tablet PO (20:20)
[2023-05-27] MEDS: MELATONIN 10 MG TABLET PO (20:35)
[2023-05-27 21:04] LABS: Bedside Glucose 146 mg/dL (74-106)
[2023-05-28] VITALS (18 sets, daily range): BP systolic 136–160; BP diastolic 69–85; PULSE 57–85; RESP 12–44; TEMP 36.5–37.3; O2SAT 85–94
[2023-05-28] MEDS: Ipratropium/Albuterol Sulfate 3 ML AMPUL.NEB INHALATION ×6 (02:26→22:42)
[2023-05-28] MEDS: Heparin Injection (Vial) 5,000 UNIT/ML VIAL 5000 UNIT SC ×3 (05:25→20:59)
[2023-05-28] MEDS: Piperacil/Tazobactam 3.375 GM in 0.9% Normal Saline (50mL MB+) 50 ML IV ×3 (05:25→20:55)
[2023-05-28 06:51] LABS: Absolute Lymphocyte Count 0.76 X10^3/uL (0.83-4.51); Absolute Neutrophil Count 8.2 X10^3/uL (2.0-7.7); Basophil# 0.04 X10^3/uL; Basophil% 0.4 % (0-1); Eosinophil# 0.06 X10^3/uL; Eosinophils% 0.6 % (0-5); Hematocrit 31.2 % (37-47); Hemoglobin 10.6 g/dL (12.0-15.0); Lymphocyte # 0.76 X10^3/ul (0.83-4.51); Lymphocyte % 7.8 % (19-41); Mean Corpuscular Hgb 32.9 pg (27.0-32.0); Mean Corpuscular Volume 96.9 fL (81-99); Mean Platelet Vol. 10.8 fl (6.2-12.0); Monocyte# 0.45 X10^3/uL; Monocyte% 4.6 % (0-10); NRBC Flagged by Analyzer 0 % (0-5); Neutrophil # 8.16 X10^3/uL (2.7-7.7); Neutrophil % 83.6 % (47-70); Platelet Count 184 K/mm3 (150-450); RBC Distribution Width CV 15.7 % (11.6-14.6); RBC Distribution Width SD 55.7 fl (35.1-43.9); Red Blood Count 3.22 M/mm3 (4.2-5.4); White Blood Count 9.8 K/mm3 (4.4-11.0)
[2023-05-28 07:13] LABS: Bedside Glucose 142 mg/dL (74-106)
[2023-05-28 07:27] LABS: Anion Gap 5 (5-15); BUN 21 mg/dL (7-18); BUN/Creat Ratio 20.6 RATIO (10-20); Calcium,Total 8.1 mg/dL (8.5-10.1); Chloride 103 mmol/L (98-107); Creatinine, Serum 1.02 mg/dL (0.55-1.02); EST Glomerular Filtration Rate 59 mL/min (>60); Est Glom Filt Rate - Afr Amer 72 mL/min (>60); Estimated Creatinine Clearance 74.93 ml/min; Glucose 165 mg/dL (74-106); Magnesium 2.7 mg/dL (1.6-2.6); Phosphorus 2.9 mg/dL (2.5-4.9); Potassium 4.3 mmol/L (3.5-5.1); Sodium Level 136 mmol/L (136-145)
--- NOTE | 2023-05-28 07:46 | PCM.PN.HOSP ---
Reason for Visit Reason for Visit: Diagnoses Anemia, unspecified (05/21/23) Decreased white blood cell count, unspecified (05/21/23) Hypo-osmolality and hyponatremia (05/21/23) Obstructive sleep apnea (adult) (pediatric) (05/21/23) Chronic obstructive pulmonary disease with (acute) exacerbation (05/21/23) Unspecified asthma with (acute) exacerbation (05/21/23) Acute kidney failure, unspecified (05/21/23) Hypoxemia (05/21/23) COVID-19 (05/21/23) Subjective Subjective Patient seen clinical condition improved. Plan is for patient to be assessed for home oxygen with a 6-minute walk Objective Data Objective Data Vital Signs: Vital Signs Temp Pulse Resp BP Pulse Ox O2 Del Method O2 Flow Rate 99.1 F 75 34 H 152/73 H 92 Bi-pap 4 05/28/23 05:23 05/28/23 05:23 05/28/23 05:23 05/28/23 05:23 05/28/23 05:23 05/28/23 05:23 05/27/23 20:29 FiO2 30 05/28/23 04:45 Oxygen Flow Rate (L/min) 4 Oxygen Delivery Method Bi-pap Weight: 123.3 kg Body Mass Index (BMI) 51.3 Intake & Output: Intake and Output for Last 24 Hours 05/26/23 05/27/23 05/28/23 23:59 23:59 23:59 Intake Total 1090 / 1190 2485 / 2685 350 / 350 Output Total 1500 / 1500 Balance 1090 / 1190 985 / 1185 350 / 350 Lab / Micro Data 05/28/23 06:35 05/28/23 06:35 Labs: Laboratory Results - last 24 hr 05/27/23 06:05: B-Natriuretic Peptide 69.2 05/27/23 11:48: POC Glucose 163 H 05/27/23 16:38: POC Glucose 130 H 05/27/23 20:27: POC Glucose 146 H 05/28/23 06:35: WBC 9.8, RBC 3.22 L, Hgb 10.6 L, Hct 31.2 L, MCV 96.9, MCH 32.9 H, MCHC 34.0, RDW Std Deviation 55.7 H, RDW Coeff of Erlinda 15.7 H, Plt Count 184, MPV 10.8, Immature Gran % (Auto) 3.000 H, Neut % (Auto) 83.6 H, Lymph % (Auto) 7.8 L, [place] % (Auto) 4.6, Eos % (Auto) 0.6, Baso % (Auto) 0.4, Absolute Neuts (auto) 8.2 H, Absolute Lymphs (auto) 0.76 L, Nucleated RBC % 0, Sodium 136, Potassium 4.3, Chloride 103, Carbon Dioxide 28.0, Anion Gap 5, BUN 21 H, Creatinine 1.02, Estim Creat Clear Calc 74.93, Est GFR (MDRD) Af Amer 72, Est GFR (MDRD) Non-Af 59 L, BUN/Creatinine Ratio 20.6 H, Glucose 165 H, Calcium 8.1 L, Phosphorus 2.9, Magnesium 2.7 H 05/28/23 06:50: POC Glucose 142 H Micro: Microbiology 05/21/23 15:59 Mucosa - Nose SARS-CoV-2, Influenza & RSV (PCR) - Final SARS-CoV-2 (COVID 19) 05/22/23 04:55 Urine, Clean Catch Legionella Antigen - Final 05/22/23 04:55 Urine, Clean Catch Streptococcus pneumoniae Antigen (M - Final 05/21/23 20:17 Mucosa - Nasopharyngeal Respiratory Panel (PCR) - Final Physical Exam Narrative GENERAL: cooperative but dyspneic at rest HEENT: Atraumatic; normocephalic EYES; Anicteric, Normal Conjunctiva NECK; supple, normal thyroid, RESPIRATORY: Diminished to auscultation CARDIOVASCULAR: Regular S1 S2, GI: soft, normoactive bowel sounds, : No Renal angle tenderness; EXTREMITIES: No edema, no clubbing, MUSCULOSKELETAL: no muscle wasting NEURO: Awake; no lateralizing signs. SKIN: No Rash PSYCH; Flat affect Assessment & Plan Assessment/Plan (1) Acute exacerbation of COPD with asthma: (2) COVID-19: PLAN: Plan Patient is a 58-year-old lady admitted with progressive shortness of breath diagnosed with COVID 19 pneumonia with COPD and asthma exacerbation 1. Acute hypoxic respiratory failure ? Due to combination of COVID-19 pneumonia COPD? Exacerbation. Managed on noninvasive ventilation with consultation placed to pulmonary medicine -05/28/2023;Patient seen clinical condition improved. Plan is for patient to be assessed for home oxygen with a 6-minute walk 2. Acute COVID-19 infection 3. Suspected superimposed bacterial pneumonia ? CAT scan obtained demonstrated diffuse bilateral airspace opacification. Patient managed with broad-spectrum antibiotic therapy with vancomycin as well as Zosyn 4. COPD/asthma exacerbation ? Managed with bronchodilator treatment regimen systemic steroid as well as antibiotics as discussed above 5. Hyponatremia ? Secondary to hypovolemic hyponatremia monitoring with daily BMPs 6. Acute kidney injury ? Superimposed on chronic kidney disease stage IIIb patient did receive IV fluids 7. Coronary artery disease ? With PCI to proximal LAD and distal RCA on 05/17/2022 did continue guideline directed medical therapy 8. Hypertension - Blood pressure controlled, home medications continued with dose adjustment as needed 9. Dyslipidemia -Patient is on statin therapy, continued at home dose 10. Class III obesity with BMI of 51.4 ? Complicating care weight loss advised 11. Diabetes mellitus type II -patient's oral hypoglycemics held. Placed on long acting insulin, Accu-Cheks a.c. and at bedtime and covered with sliding scale insulin 12. Anemia - Secondary to chronic disorder monitoring H&H and transfuse if patient becomes symptomatic or hemoglobin falls below 7 13. Leukopenia ? Thought to be secondary to COVID 19 monitoring 14. Rheumatoid arthritis ? Patient is on methotrexate at home which is currently being held 15. Obstructive sleep apnea ? Patient is on nocturnal CPAP at home 17. Chronic pain syndrome ? Patient is on bupropion as well as Lyrica 18. GERD ? Patient is on PPI 19. Bipolar disorder ? Did continue patient psychotropic medications 20. Depression with anxiety ? Continue home meds 21. DVT prophylaxis ? SC Lovenox Time spent in the patient's overall evaluation,decision-making process, review of diagnostic data, adjustment of management, discussion with other providers, nursing nursing and ancillary staff involved in patient's care documentation 40 Minutes Charges/Coding Visit Charges Inpatient E&M: 45717 Subs Hosp L2
[2023-05-28] MEDS: lamoTRIgine 100 MG Tablet 200 MG PO (09:57)
[2023-05-28] MEDS: Escitalopram Oxalate 20 MG Tablet PO (09:57)
[2023-05-28] MEDS: Pregabalin 75 MG Capsule PO ×2 (09:59→20:58)
[2023-05-28] MEDS: Aspirin E.C. 81 MG Tablet PO (09:59)
[2023-05-28] MEDS: guaiFENesin 1,200 MG Tablet 1200 MG PO ×2 (09:59→20:57)
[2023-05-28] MEDS: Losartan Potassium 50 MG Tablet PO (09:59)
[2023-05-28] MEDS: Pantoprazole Sodium 40 MG Tablet PO (09:59)
[2023-05-28] MEDS: Clopidogrel Bisulfate 75 MG Tablet PO (09:59)
[2023-05-28] MEDS: Carvedilol 6.25 MG Tablet PO ×2 (09:59→20:58)
--- NOTE | 2023-05-28 11:02 | PCM.DC.SUM ---
Providers Date of Admission: 05/21/23 Date of Discharge: 05/28/23 Primary Care Physician: Dr. Jericho Nieves MD Consultations 05/26/23 10:12 Consult: Sustainability Coordinator / Pulmonary Medicine Routine Consulting Provider: Dionte Dias Reason for Consult: Continued respiratory distress EMERGENT Consult: No MD Notified: Yes Date Notified: 05/26/23 Time Notified: 10:20 Method of Notification: extract operator Reason For Visit: SHORTNESS OF BREATH/EXERTIONAL HYPOXIA Diagnosis Discharge Diagnosis (1) Acute exacerbation of COPD with asthma: Status: Chronic Code(s): J44.1 - Chronic obstructive pulmonary disease with (acute) exacerbation; J45.901 - Unspecified asthma with (acute) exacerbation (2) COVID-19: Status: Acute Code(s): U07.1 - COVID-19 Plan Patient is a 58-year-old lady admitted with progressive shortness of breath diagnosed with COVID 19 pneumonia with COPD and asthma exacerbation 1. Acute hypoxic respiratory failure ? Due to combination of COVID-19 pneumonia COPD? Exacerbation. Managed on noninvasive ventilation with consultation placed to pulmonary medicine -05/28/2023;Patient seen clinical condition improved. Plan is for patient to be assessed for home oxygen with a 6-minute walk 2. Acute COVID-19 infection 3. Suspected superimposed bacterial pneumonia ? CAT scan obtained demonstrated diffuse bilateral airspace opacification. Patient managed with broad-spectrum antibiotic therapy with vancomycin as well as Zosyn 4. COPD/asthma exacerbation ? Managed with bronchodilator treatment regimen systemic steroid as well as antibiotics as discussed above 5. Hyponatremia ? Secondary to hypovolemic hyponatremia monitoring with daily BMPs 6. Acute kidney injury ? Superimposed on chronic kidney disease stage IIIb patient did receive IV fluids 7. Coronary artery disease ? With PCI to proximal LAD and distal RCA on 05/17/2022 did continue guideline directed medical therapy 8. Hypertension - Blood pressure controlled, home medications continued with dose adjustment as needed 9. Dyslipidemia -Patient is on statin therapy, continued at home dose 10. Class III obesity with BMI of 51.4 ? Complicating care weight loss advised 11. Diabetes mellitus type II -patient's oral hypoglycemics held. Placed on long acting insulin, Accu-Cheks a.c. and at bedtime and covered with sliding scale insulin 12. Anemia - Secondary to chronic disorder monitoring H&H and transfuse if patient becomes symptomatic or hemoglobin falls below 7 13. Leukopenia ? Thought to be secondary to COVID 19 monitoring 14. Rheumatoid arthritis ? Patient is on methotrexate at home which is currently being held 15. Obstructive sleep apnea ? Patient is on nocturnal CPAP at home 17. Chronic pain syndrome ? Patient is on bupropion as well as Lyrica 18. GERD ? Patient is on PPI 19. Bipolar disorder ? Did continue patient psychotropic medications 20. Depression with anxiety ? Continue home meds 21. DVT prophylaxis ? [place] Lovenox Time spent in the patient's overall evaluation,decision-making process, review of diagnostic data, adjustment of management, discussion with other providers, nursing nursing and ancillary staff involved in patient's care documentation 40 Minutes Medications at Discharge Home Medications nitroglycerin 0.4 mg sublingual tablet 0.4 mg sublingual Q5M PRN CHEST PAIN #30 tabs 04/06/22 escitalopram oxalate 20 mg tablet 30 mg PO DAILY DEPRESSION 05/08/22 pregabalin 75 mg capsule 75 mg PO BID PAIN 05/08/22 aspirin 81 mg tablet,delayed release 81 mg PO DAILY@0800 HEART HEALTH #90 tabs 06/05/22 atorvastatin 40 mg tablet 40 mg PO QHS CHOLESTEROL #90 tabs 06/05/22 carvedilol 6.25 mg tablet 6.25 mg PO BID HEART #180 tabs 06/05/22 methotrexate sodium 2.5 mg tablet 15 mg PO QWEEK RHEUMATOID ARTHRITIS 06/05/22 zolpidem 10 mg tablet (Ambien) 10 mg PO QHS PRN SLEEP 08/29/22 albuterol sulfate 90 mcg/actuation aerosol inhaler 2 puff inhalation Q4H PRN SHORTNESS OF BREATH/WHEEZING 05/21/23 alprazolam 0.5 mg tablet 0.5 mg PO BID PRN ANXIETY 05/21/23 buprenorphine 20 mcg/hour weekly transdermal patch 1 patch transdermal TH SEVERE PAIN 05/21/23 clopidogrel 75 mg tablet 75 mg PO DAILY BLOOD THINNER 05/21/23 diclofenac sodium 1 % topical gel 2 g topical 4X/DAY PRN PAIN 05/21/23 fluticasone furoate 200 mcg-vilanterol 25 mcg/dose inhalation powder (Breo Ellipta) 1 inh inhalation DAILY ASTHMA 05/21/23 lansoprazole 30 mg capsule,delayed release 30 mg PO DAILY ACID REFLUX 05/21/23 lidocaine 5 % topical ointment 1 applic topical 4X/DAY PRN PAIN 05/21/23 valbenazine 80 mg capsule (Ingrezza) 80 mg PO DAILY tardive dyskinesia 05/21/23 losartan 50 mg tablet 50 mg PO DAILY blood pressure 05/26/23 cefdinir 300 mg capsule 300 mg PO BID #14 caps 05/28/23 dexamethasone 6 mg tablet 6 mg PO DAILY #7 tabs 05/28/23 Hospital Course Summary of Care Provided Minutes Spent on Discharge: 40 Physical Exam Narrative GENERAL: cooperative HEENT: Atraumatic; normocephalic EYES; Anicteric, Normal Conjunctiva NECK; supple, normal thyroid, RESPIRATORY: Diminished to auscultation CARDIOVASCULAR: Regular S1 S2, GI: soft, normoactive bowel sounds, : No Renal angle tenderness; EXTREMITIES: No edema, no clubbing, MUSCULOSKELETAL: no muscle wasting NEURO: Awake; no lateralizing signs. SKIN: No Rash PSYCH; Flat affect Weight / BMI Weight Weight: 123.3 kg Body Mass Index (BMI) 51.3 ABG / Lab / Microbiology Data 05/28/23 06:35 05/28/23 06:35 Laboratory: Laboratory Results - last 24 hr 05/27/23 11:48: POC Glucose 163 H 05/27/23 16:38: POC Glucose 130 H 05/27/23 20:27: POC Glucose 146 H 05/28/23 06:35: WBC 9.8, RBC 3.22 L, Hgb 10.6 L, Hct 31.2 L, MCV 96.9, MCH 32.9 H, MCHC 34.0, RDW Std Deviation 55.7 H, RDW Coeff of Erlinda 15.7 H, Plt Count 184, MPV 10.8, Immature Gran % (Auto) 3.000 H, Neut % (Auto) 83.6 H, Lymph % (Auto) 7.8 L, [place] % (Auto) 4.6, Eos % (Auto) 0.6, Baso % (Auto) 0.4, Absolute Neuts (auto) 8.2 H, Absolute Lymphs (auto) 0.76 L, Nucleated RBC % 0, Sodium 136, Potassium 4.3, Chloride 103, Carbon Dioxide 28.0, Anion Gap 5, BUN 21 H, Creatinine 1.02, Estim Creat Clear Calc 74.93, Est GFR (MDRD) Af Amer 72, Est GFR (MDRD) Non-Af 59 L, BUN/Creatinine Ratio 20.6 H, Glucose 165 H, Calcium 8.1 L, Phosphorus 2.9, Magnesium 2.7 H 05/28/23 06:50: POC Glucose 142 H Microbiology: Microbiology 05/21/23 15:59 Mucosa - Nose SARS-CoV-2, Influenza & RSV (PCR) - Final SARS-CoV-2 (COVID 19) 05/22/23 04:55 Urine, Clean Catch Legionella Antigen - Final 05/22/23 04:55 Urine, Clean Catch Streptococcus pneumoniae Antigen (M - Final 05/21/23 20:17 Mucosa - Nasopharyngeal Respiratory Panel (PCR) - Final D/C Instructions Discharge Diet: No restrictions Discharge Activity: Return to Normal Activity Call your doctor if you observe: Fever of 101 or Higher, Shortness of breath, Fainting spells and Chest pain Meaningful Use Info Meaningful Use Diagnoses (Choose all that apply): None applicable Discharge Plan Admission Admit Date/Time: 05/21/23 16:59 Attending Provider: Devin Galvez Primary Care Provider: Jericho Nieves Consulting Providers: Vivienne Jacobo; Dionte Dias; Pérez Guerrero Discharge Orders/Prescriptions Prescriptions: New dexamethasone 6 mg tablet 6 mg PO DAILY Qty: 7 0RF cefdinir 300 mg capsule 300 mg PO BID Qty: 14 0RF Continued escitalopram oxalate 20 mg tablet 30 mg PO DAILY pregabalin 75 mg capsule 75 mg PO BID methotrexate sodium 2.5 mg tablet 15 mg PO QWEEK Patient Comments: PT STATES SHE DOESNT TAKE ON A CERTAIN DAY OF THE WEEK atorvastatin 40 mg tablet 40 mg PO QHS Qty: 90 3RF carvedilol 6.25 mg tablet 6.25 mg PO BID Qty: 180 3RF aspirin 81 mg tablet,delayed release (DR/EC) 81 mg PO DAILY@0800 Qty: 90 3RF zolpidem [Ambien] 10 mg tablet 10 mg PO QHS PRN (Reason: SLEEP ) nitroglycerin 0.4 mg Tablet, Sublingual 0.4 mg sublingual Q5M PRN (Reason: CHEST PAIN ) Qty: 30 0RF albuterol sulfate 90 mcg/actuation HFA aerosol inhaler 2 puff INHALATION Q4H PRN (Reason: SHORTNESS OF BREATH/WHEEZING ) alprazolam 0.5 mg tablet 0.5 mg PO BID PRN (Reason: ANXIETY ) Ingrezza 80 mg capsule 80 mg PO DAILY Patient Comments: PT STATES SHE TAKES 40MG EVERY SATURDAY lidocaine 5 % ointment 1 applic topical 4X/DAY PRN (Reason: PAIN ) Rx Instructions: APPLY TO AFFECTED AREAS TOPICAL ONE TO FOUR TIMES A DAY NEEDED lansoprazole 30 mg capsule,delayed release(DR/EC) 30 mg PO DAILY fluticasone furoate-vilanterol [Breo Ellipta] 200-25 mcg/dose blister with device 1 inh INHALATION DAILY diclofenac sodium 1 % gel 2 g TOPICAL 4X/DAY PRN (Reason: PAIN ) Patient Comments: PT STATES SHE USES TWICE DAILY Rx Instructions: APPLY 2 GRAMS TO AFFECTED AREA(S) UP TO FOUR TIMES A DAY NEEDED buprenorphine 20 mcg/hour patch weekly 1 patch transdermal Patient Comments: PT PUT PATCH ON UPPER LEFT LEG ON SATURDAY clopidogrel 75 mg tablet 75 mg PO DAILY losartan 50 mg tablet 50 mg PO DAILY Patient Comments: TAKE 1 TABLET BY MOUTH DAILY Referrals / Follow Up: Jericho Nieves MD [Primary Care Provider] - Within 2 Weeks Disposition Disposition (needs filled in before D/C Order can be placed): Home, Self Care Charges/Coding Visit Charges Inpatient E&M: 89765 Disch Hosp >30min
[2023-05-28] MEDS: Insulin Lispro 100 UNIT/ML INSULN.PEN SC (11:45)
[2023-05-28 12:06] LABS: Bedside Glucose 233 mg/dL (74-106)
[2023-05-28] MEDS: 0.9% Saline Lock 10 ML Syringe IV (14:03)
--- NOTE | 2023-05-28 15:34 | CASEMGMT ---
Discharge Planning A list of?SNF providers including quality and resource use data and consistent with the patient's preferred geographic region, medical needs, and insurance network was created in [facility] Guide.? This list was provided to the SW. Viktoria William Discharge Planning Asst.
--- NOTE | 2023-05-28 15:51 | CASEMGMT ---
Social Work Therapy recommending SNF for further services. SW attempted to speak with pt several times but unsuccessful. Will continue to attempt to discuss SNF options. Pt's SO is currently in the hospital as well and cannot provide assistance to pt at home. Cele Jovel, RN ICU GLASS FITTER
[2023-05-28 17:03] LABS: Bedside Glucose 139 mg/dL (74-106)
[2023-05-28] MEDS: 0.9% Normal Saline (250mL Bag) 250 ML 15 ML IV (20:55)
[2023-05-28] MEDS: MELATONIN 10 MG TABLET PO (20:57)
[2023-05-28] MEDS: Atorvastatin Calcium 40 MG Tablet PO (20:58)
[2023-05-29] VITALS (11 sets, daily range): BP systolic 136–169; BP diastolic 71–86; PULSE 57–79; RESP 16–26; TEMP 36.6–36.8; O2SAT 82–97
[2023-05-29] MEDS: Ipratropium/Albuterol Sulfate 3 ML AMPUL.NEB INHALATION ×3 (02:35→15:07)
[2023-05-29] MEDS: Piperacil/Tazobactam 3.375 GM in 0.9% Normal Saline (50mL MB+) 50 ML IV ×2 (05:25→14:05)
[2023-05-29] MEDS: Heparin Injection (Vial) 5,000 UNIT/ML VIAL 5000 UNIT SC ×2 (05:29→14:06)
[2023-05-29] MEDS: Insulin Lispro 100 UNIT/ML INSULN.PEN SC ×2 (05:32→11:30)
[2023-05-29 05:54] LABS: Bedside Glucose 165 mg/dL (74-106)
--- NOTE | 2023-05-29 07:39 | PCM.PN.HOSP ---
Reason for Visit Reason for Visit: Diagnoses Anemia, unspecified (05/21/23) Decreased white blood cell count, unspecified (05/21/23) Hypo-osmolality and hyponatremia (05/21/23) Obstructive sleep apnea (adult) (pediatric) (05/21/23) Chronic obstructive pulmonary disease with (acute) exacerbation (05/21/23) Unspecified asthma with (acute) exacerbation (05/21/23) Acute kidney failure, unspecified (05/21/23) Hypoxemia (05/21/23) COVID-19 (05/21/23) Subjective Subjective Attempt to discharge patient today prior was unsuccessful after patient had significant desaturation with ambulation. Decision was made to keep patient for an additional day. Will attempt a 6-minute walk prior to making any decision Objective Data Objective Data Vital Signs: Vital Signs Temp Pulse Resp BP Pulse Ox O2 Del Method O2 Flow Rate 97.9 F 61 20 H 136/86 H 96 Nasal Cannula 6 05/29/23 05:00 05/29/23 05:00 05/29/23 05:00 05/29/23 05:00 05/29/23 05:00 05/29/23 05:00 05/29/23 05:00 FiO2 30 05/28/23 22:40 Oxygen Flow Rate (L/min) [ 6 AMBULATING with Oxygen #2] Oxygen Flow Rate (L/min) [ 2 AMBULATING with Oxygen #1] Oxygen Flow Rate (L/min) [At 2 REST with Oxygen] Oxygen Flow Rate (L/min) [At 0 REST on Room Air] Oxygen Flow Rate (L/min) 6 Oxygen Delivery Method Nasal Cannula Weight: 123.3 kg Body Mass Index (BMI) 51.3 Intake & Output: Intake and Output for Last 24 Hours 05/27/23 05/28/23 05/29/23 23:59 23:59 23:59 Intake Total 2485 / 2685 2850 / 2850 50 / 50 Output Total 1500 / 1500 1100 / 1100 Balance 985 / 1185 1750 / 1750 50 / 50 Lab / Micro Data 05/29/23 07:24 05/28/23 06:35 Labs: Laboratory Results - last 24 hr 05/28/23 11:19: POC Glucose 233 H 05/28/23 16:44: POC Glucose 139 H 05/29/23 05:23: POC Glucose 165 H Micro: Microbiology 05/21/23 15:59 Mucosa - Nose SARS-CoV-2, Influenza & RSV (PCR) - Final SARS-CoV-2 (COVID 19) 05/22/23 04:55 Urine, Clean Catch Legionella Antigen - Final 05/22/23 04:55 Urine, Clean Catch Streptococcus pneumoniae Antigen (M - Final 05/21/23 20:17 Mucosa - Nasopharyngeal Respiratory Panel (PCR) - Final Physical Exam Narrative GENERAL: cooperative HEENT: Atraumatic; normocephalic EYES; Anicteric, Normal Conjunctiva NECK; supple, normal thyroid, RESPIRATORY: Diminished to auscultation CARDIOVASCULAR: Regular S1 S2, GI: soft, normoactive bowel sounds, : No Renal angle tenderness; EXTREMITIES: No edema, no clubbing, MUSCULOSKELETAL: no muscle wasting NEURO: Awake; no lateralizing signs. SKIN: No Rash PSYCH; Flat affect Assessment & Plan Assessment/Plan (1) Acute exacerbation of COPD with asthma: (2) COVID-19: PLAN: Plan Patient is a 58-year-old lady admitted with progressive shortness of breath diagnosed with COVID 19 pneumonia with COPD and asthma exacerbation 1. Acute hypoxic respiratory failure ? Due to combination of COVID-19 pneumonia COPD? Exacerbation. Managed on noninvasive ventilation with consultation placed to pulmonary medicine -05/28/2023;Patient seen clinical condition improved. Plan is for patient to be assessed for home oxygen with a 6-minute walk ? 05/29/2023;Attempt to discharge patient today prior was unsuccessful after patient had significant desaturation with ambulation. Decision was made to keep patient for an additional day. Will attempt a 6-minute walk prior to making any decision 2. Acute COVID-19 infection -Remains stable 3. Suspected superimposed bacterial pneumonia ? CAT scan obtained demonstrated diffuse bilateral airspace opacification. Patient managed with broad-spectrum antibiotic therapy with vancomycin as well as Zosyn 4. COPD/asthma exacerbation ? Managed with bronchodilator treatment regimen systemic steroid as well as antibiotics as discussed above 5. Hyponatremia ? Secondary to hypovolemic hyponatremia monitoring with daily BMPs 6. Acute kidney injury ? Superimposed on chronic kidney disease stage IIIb patient did receive IV fluids 7. Coronary artery disease ? With PCI to proximal LAD and distal RCA on 05/17/2022 did continue guideline directed medical therapy 8. Hypertension - Blood pressure controlled, home medications continued with dose adjustment as needed 9. Dyslipidemia -Patient is on statin therapy, continued at home dose 10. Class III obesity with BMI of 51.4 ? Complicating care weight loss advised 11. Diabetes mellitus type II -patient's oral hypoglycemics held. Placed on long acting insulin, Accu-Cheks a.c. and at bedtime and covered with sliding scale insulin 12. Anemia - Secondary to chronic disorder monitoring H&H and transfuse if patient becomes symptomatic or hemoglobin falls below 7 13. Leukopenia ? Thought to be secondary to COVID 19 monitoring 14. Rheumatoid arthritis ? Patient is on methotrexate at home which is currently being held 15. Obstructive sleep apnea ? Patient is on nocturnal CPAP at home 17. Chronic pain syndrome ? Patient is on bupropion as well as Lyrica 18. GERD ? Patient is on PPI 19. Bipolar disorder ? Did continue patient psychotropic medications 20. Depression with anxiety ? Continue home meds 21. DVT prophylaxis ? SC Lovenox Time spent in the patient's overall evaluation,decision-making process, review of diagnostic data, adjustment of management, discussion with other providers, nursing nursing and ancillary staff involved in patient's care documentation 40 Minutes Charges/Coding Visit Charges Inpatient E&M: 82197 Subs Hosp L2
[2023-05-29 07:57] LABS: Hematocrit 32.5 % (37-47); Hemoglobin 10.9 g/dL (12.0-15.0); Mean Corp Hgb Conc 33.5 g/dL (32-36); Mean Corpuscular Hgb 33.3 pg (27.0-32.0); Mean Corpuscular Volume 99.4 fL (81-99); Mean Platelet Vol. 11.1 fl (6.2-12.0); POSITIVE COUNT YES; POSITIVE MORPHOLOGY YES; Platelet Count 228 K/mm3 (150-450); RBC Distribution Width CV 15.5 % (11.6-14.6); RBC Distribution Width SD 56.1 fl (35.1-43.9); Red Blood Count 3.27 M/mm3 (4.2-5.4); White Blood Count 9.1 K/mm3 (4.4-11.0)
[2023-05-29 08:06] LABS: Differential Indicated MANUAL DIFF
[2023-05-29 08:59] LABS: Lymphocyte 11 % (19-41); Metamyelocyte 4 % (0-1); Neutrophil-Band 16 % (0-5); Neutrophil-Segmented 67 % (47-70); Total Cells Counted 100 (MANUAL DIFF)
[2023-05-29 09:01] LABS: Red Cell Morphology NORM C+C NORMAL (NORM C&C)
[2023-05-29 09:02] LABS: Plasma Cell 67 %
[2023-05-29 09:04] LABS: Absolute Neutrophil Count 9.1 X10^3/uL (2.0-7.7)
[2023-05-29 09:06] LABS: Monocyte 2 % (0-10)
[2023-05-29 09:10] LABS: Anion Gap 1 (5-15); BUN 21 mg/dL (7-18); BUN/Creat Ratio 18.9 RATIO (10-20); Calcium,Total 8.2 mg/dL (8.5-10.1); Chloride 102 mmol/L (98-107); Creatinine, Serum 1.11 mg/dL (0.55-1.02); EST Glomerular Filtration Rate 54 mL/min (>60); Est Glom Filt Rate - Afr Amer 65 mL/min (>60); Estimated Creatinine Clearance 68.86 ml/min; Glucose 163 mg/dL (74-106); Sodium Level 133 mmol/L (136-145)
[2023-05-29] MEDS: Pantoprazole Sodium 40 MG Tablet PO (09:55)
[2023-05-29] MEDS: Losartan Potassium 50 MG Tablet PO (09:56)
[2023-05-29] MEDS: Escitalopram Oxalate 20 MG Tablet PO (09:56)
[2023-05-29] MEDS: guaiFENesin 1,200 MG Tablet 1200 MG PO (09:56)
[2023-05-29] MEDS: Pregabalin 75 MG Capsule PO (09:56)
[2023-05-29] MEDS: Aspirin E.C. 81 MG Tablet PO (09:56)
[2023-05-29] MEDS: lamoTRIgine 100 MG Tablet 200 MG PO (09:56)
[2023-05-29] MEDS: Clopidogrel Bisulfate 75 MG Tablet PO (09:56)
[2023-05-29] MEDS: Carvedilol 6.25 MG Tablet PO (09:56)
[2023-05-29 11:51] LABS: Bedside Glucose 190 mg/dL (74-106)
--- NOTE | 2023-05-29 14:16 | CASEMGMT ---
Social Work SW met with pt and introduced self and role of SW. SW spoke with pt regarding discharge plan and therapy recommendations for SNF. Pt adamantly refusing SNF placement. SW discussed concerns with functional ability to ambulate and care for self and pt continue to adamantly refuse. Pt feels she can return home when she is medically ready. Pt currently on 4-6 L of oxygen and was not on oxygen prior to illness. Pt states she does have friends she can call to assist for errands if needed. Pt states she would be open to home health or outpatient rehab if needed. RNCM kenji. ALEXANDER Carvalho
--- NOTE | 2023-05-29 15:48 | CASEMGMT ---
Addendum entered by Eryn Tomlin 05/29/23 16:48: TC to pt room, she is aware that [facility] [employer] will be delivering a tank to her room and will set up at home. She is aware to call them once home and the phone number is on her dc instructions. Pt is aware that a rx will be given to her for a BGM as well as [facility] will start tomorrow. Pt denies any further questions at this time. Addendum entered by Eryn Tomlin 05/29/23 16:42: TC to [facility] [employer], spoke with Holli, she confirms with forming and assembling supervisor Renee that the pt can have a portable tank delivered to the room and she will get her oxygen set up at home this evening. She is aware of bleed in to cpap. Provided customer equipment engineer rx for BGM to put in dc papers for nurse to give pt. Spoke with pt nurse who is aware that this needs given to pt as well. Addendum entered by Eryn Tomlin 05/29/23 16:34: [facility] accepts pt and SOC is tomorrow. Original Note: Dr. Galvez states that the pt will be DC today. Pt O2 Rx updated. Pt is refusing to go to a SNF or to go to outpt tx. Pt states she would be willing to accept HHC. Pt denies seeing a list and [facility]. TC to [facility] with no answer, voice message left, awaiting return call. Pt states that her nieghbor will be her ride home for DC today.
[2023-05-29 16:11] LABS: Bedside Glucose 114 mg/dL (74-106)
--- NOTE | 2023-05-29 18:12 | NURSING ---
[employer] delivered tanks, but refused to enter room, or call pt to talk with her. he tried to call boyfriend alice, but did not answer phone, pt stated that alice was not going to be home for 30 min. Groove stated he was just going to leave o2 on porch. pt agreed to have o2 left on porch. explained to [employer] that pt has low literacy and would need assistance to set o2 up. Groove stated she can look it up on u tube, or call for assistance. Groove stated he was not going to call pt.
[2023-05-30 10:30] LABS: Pathologist Review Reviewed
--- NOTE | 2023-05-30 12:35 | CASEMGMT ---
TC to pt, received vm and unable to leave a message d/t vm being full. TC to pt sig other, Hossein, he states pt did receive her oxygen. States it was delivered to the back porch and he had to bring it into the home. He states he did speak in person to the rep from [employer]. He states it was difficult for him to bring in to the home as he just was dc'd from the hospital as well yesterday. He states pt is using the oxygen, states she has picked up her medications from the hospital stay and that [facility] was out to see her today. He denies any concerns at this time.
== END 2023-05-29 18:40 | disposition home health service (06) | DRG 177 ==
LOC: ED 17:05 → MS3 17:56
PROVIDERS: Family Medicine; Internal Medicine; Internal Medicine Critical Care Medicine; Admitting Provider Internal Medicine; Emergency Provider Emergency Medicine; PCP Internal Medicine; Visit Provider Internal Medicine
DX: U07.1 COVID-19 (principal); J12.82 Pneumonia due to coronavirus disease 2019; J96.01 Acute respiratory failure with hypoxia; J15.9 Unspecified bacterial pneumonia; I42.9 Cardiomyopathy, unspecified; J45.901 Unspecified asthma with (acute) exacerbation; E87.1 Hypo-osmolality and hyponatremia; J44.0 Chronic obstructive pulmonary disease with (acute) lower respiratory infection; Z68.43 Body mass index [BMI] 50.0-59.9, adult; N17.9 Acute kidney failure, unspecified; J44.1 Chronic obstructive pulmonary disease with (acute) exacerbation; E11.22 Type 2 diabetes mellitus with diabetic chronic kidney disease; F31.9 Bipolar disorder, unspecified; N18.32 Chronic kidney disease, stage 3b; E66.01 Morbid (severe) obesity due to excess calories; Z79.4 Long term (current) use of insulin; M06.9 Rheumatoid arthritis, unspecified; D64.9 Anemia, unspecified; I12.9 Hypertensive chronic kidney disease with stage 1 through stage 4 chronic kidney disease, or unspecified chronic kidney disease; E78.5 Hyperlipidemia, unspecified; I25.10 Atherosclerotic heart disease of native coronary artery without angina pectoris; G47.33 Obstructive sleep apnea (adult) (pediatric); F17.200 Nicotine dependence, unspecified, uncomplicated; K21.9 Gastro-esophageal reflux disease without esophagitis; F41.8 Other specified anxiety disorders; Z79.02 Long term (current) use of antithrombotics/antiplatelets; Z79.82 Long term (current) use of aspirin; Z95.5 Presence of coronary angioplasty implant and graft; Z79.51 Long term (current) use of inhaled steroids; G89.4 Chronic pain syndrome
CPT/HCPCS: 36415; 36600; 71046; 71275; 78597; 80048; 80053; 82803; 82962; 83735; 83880; 84100; 84443; 84484; 85025; 85379; 85730; 87449; 87631; 87633; 87641; 93005; 93970; 94002; 94003; 94640; 94660; 94668; 94762; 97110; 97116; 97162; 97166; 97530; 97802; 99252; 99285; A9540; J7030; J7040; J7050; J7120; Q9967; A4216; G0463; J1940

== ENCOUNTER 2023-05-31 01:11 | Inpatient (IN) | payer MEDICARE, MEDICAID, SELFPAY ==
[2022-06-08 13:59] VITALS: BMI 47.9
[2023-05-31] VITALS (49 sets, daily range): BP systolic 86–143; BP diastolic 41–77; PULSE 49–107; RESP 12–33; TEMP 36.6–37.2; O2SAT 77–100; BMI 50.1; BMI 49.3
--- NOTE | 2023-05-31 01:22 | ED.VIS.DYS ---
HPI History of Present Illness Chief Complaint: Shortness of Breath Informant: patient and EMS Associated Symptoms cough Chest Pain: Positive for None Narrative Narrative: Patient just discharged from the hospital yesterday returns because of severe dyspnea. EMS states that she was discharged home on 6 L nasal cannula and she was 88% on that, while dyspneic. She complains of chest tightness. She denies any new symptoms. She recently had COVID, she persistently has coughing, EMS did put her on a nonrebreather which brought her up to 90%, no other treatments given. She wears CPAP at night. [facility] Medical History (Updated 05/31/23 @ 02:[address] Yordan Hampton MD) Anxiety and depression Atherosclerotic heart disease of [place] coronary artery without angina pectoris Back pain Bipolar disorder Cardiac arrest with ventricular fibrillation Cardiomyopathy Coronary artery disease CPAP (continuous positive airway pressure) dependence Degeneration of intervertebral disc of lumbosacral region Diabetes mellitus, type II Essential hypertension Hiatal hernia HLD (hyperlipidemia) Hypertension Lumbar facet arthropathy Lumbosacral spondylosis Migraines Obesity (BMI 30-39.9) Osteoarthritis Post-menopausal Presence of stent in coronary artery (~05/17/22) Seizures Sleep apnea Smoker ST elevation (STEMI) myocardial infarction Home Medications nitroglycerin 0.4 mg sublingual tablet 0.4 mg sublingual Q5M PRN CHEST PAIN #30 tabs 04/06/22 [Rx Last Taken Unknown] escitalopram oxalate 20 mg tablet 30 mg PO DAILY DEPRESSION 05/08/22 [History Last Taken 05/17/22] pregabalin 75 mg capsule 75 mg PO BID PAIN 05/08/22 [History Last Taken 05/17/22] aspirin 81 mg tablet,delayed release 81 mg PO DAILY@0800 HEART HEALTH #90 tabs 06/05/22 [Rx Last Taken 05/20/23] atorvastatin 40 mg tablet 40 mg PO QHS CHOLESTEROL #90 tabs 06/05/22 [Rx Last Taken 05/20/23] carvedilol 6.25 mg tablet 6.25 mg PO BID HEART #180 tabs 06/05/22 [Rx Last Taken 05/21/23] methotrexate sodium 2.5 mg tablet 15 mg PO QWEEK RHEUMATOID ARTHRITIS 06/05/22 [History Last Taken Unknown] zolpidem 10 mg tablet (Ambien) 10 mg PO QHS PRN SLEEP 08/29/22 [History Last Taken 05/20/23] albuterol sulfate 90 mcg/actuation aerosol inhaler 2 puff inhalation Q4H PRN SHORTNESS OF BREATH/WHEEZING 05/21/23 [History Last Taken 05/21/23] alprazolam 0.5 mg tablet 0.5 mg PO BID PRN ANXIETY 05/21/23 [History Last Taken 05/20/23] buprenorphine 20 mcg/hour weekly transdermal patch 1 patch transdermal TH SEVERE PAIN 05/21/23 [History Last Taken 05/16/23] clopidogrel 75 mg tablet 75 mg PO DAILY BLOOD THINNER 05/21/23 [History Last Taken 05/19/23] diclofenac sodium 1 % topical gel 2 g topical 4X/DAY PRN PAIN 05/21/23 [History Last Taken 05/20/23] fluticasone furoate 200 mcg-vilanterol 25 mcg/dose inhalation powder (Breo Ellipta) 1 inh inhalation DAILY ASTHMA 05/21/23 [History Last Taken Unknown] lansoprazole 30 mg capsule,delayed release 30 mg PO DAILY ACID REFLUX 05/21/23 [History Last Taken 05/20/23] lidocaine 5 % topical ointment 1 applic topical 4X/DAY PRN PAIN 05/21/23 [History Last Taken Unknown] valbenazine 80 mg capsule (Ingrezza) 80 mg PO DAILY tardive dyskinesia 05/21/23 [History Last Taken 05/20/23] losartan 50 mg tablet 50 mg PO DAILY blood pressure 05/26/23 [History Last Taken Unknown] cefdinir 300 mg capsule 300 mg PO BID #14 caps 05/28/23 [Rx Last Taken Unknown] dexamethasone 6 mg tablet 6 mg PO DAILY #7 tabs 05/28/23 [Rx Last Taken Unknown] amitriptyline 75 mg tablet 75 mg PO QHS 05/31/23 [History Last Taken Unknown] lamotrigine 200 mg tablet See Rx Instructions PO .COMPLEX 05/31/23 [History Last Taken Unknown] Allergy/AdvReac Type Severity Reaction Status Date / Time tramadol HCl [From Ultram] Allergy Rash Verified 05/31/23 01:20 cariprazine [From Vraylar] AdvReac Other Verified 05/31/23 01:20 codeine AdvReac Vomiting Verified 05/31/23 01:20 hydromorphone [From Dilaudid] AdvReac Nausea/Vom/ Verified 05/31/23 01:20 Diarrhea oxycodone HCl [From Percocet] AdvReac Vomiting Verified 05/31/23 01:20 quetiapine [From Seroquel] AdvReac Other Verified 05/31/23 01:20 Family History Father CHF (congestive heart failure) Other Cardiac arrest with ventricular fibrillation Cardiomyopathy Heart disease Surgical History History of back surgery History of carpal tunnel surgery Hx of knee surgery Hx of neck surgery Presence of coronary angioplasty implant and graft (~05/17/22) Social History household members: significant other Smoking Status: Current every day smoker tobacco type: cigarettes Smoking packs per day: 0.5 Smoking cigarettes per day: 10.0 alcohol intake: never substance use type: does not use caffeine: Yes Type: carbonated beverages Number of servings: 1 ROS ROS ED Constitutional Constitutional ED: Reports body ache(s), chills, fatigue and malaise; Denies fever(s) or headache(s) Eyes Eyes: Denies change in vision or diplopia ENT ENT ED: Denies rhinorrhea or sore throat Cardiovascular Cardiovascular: Denies chest pain or palpitations Respiratory/Chest Respiratory/Chest: Reports cough, dyspnea and dyspnea on exertion Gastrointestinal Gastrointestinal: Denies abdominal pain, diarrhea, nausea or vomiting Genitourinary Genitourinary ED: Denies dysuria or hematuria Musculoskeletal Musculoskeletal: Denies back pain or neck pain Integumentary Denies abscess or rash Neurologic Neurologic: Denies headache(s), paresthesias or weakness Psychiatric Psychiatric: Reports anxiety; Denies suicidal ideation or suicidal thoughts EXAM Physical Exam Const Vital Signs: 05/31/23 01:15 05/31/23 01:21 05/31/23 01:35 Temperature 98.7 F Temperature Source Temporal Pulse Rate 88 Respiratory Rate 17 Respiratory Effort Short of Breath Accessory Muscle Use Respiratory Depth Deep Respiratory Pattern Tachypnea Blood Pressure 101/50 L Blood Pressure Mean 67 Pulse Ox 94 Oxygen Delivery Method Non-Rebreather High Flow Bi-pap Oxygen Flow Rate (L/min) 15 11 Fraction of Inspired Oxygen (FIO2) 05/31/23 01:32 05/31/23 01:38 Temperature Temperature Source Pulse Rate 78 76 Respiratory Rate 17 31 H Respiratory Effort Respiratory Depth Respiratory Pattern Normal Tachypnea Blood Pressure Blood Pressure Mean Pulse Ox 94 Oxygen Delivery Method Oxygen Flow Rate (L/min) Fraction of Inspired Oxygen (FIO2) 60 Positive well nourished, well developed and obese Constitutional Narrative: Malaised-appearing, mild respiratory distress General Appearance ED: well developed Nutritional Appearance: obese HEENT Reports moist mucous membranes HEENT Narrative: Dry lips normocephalic and atraumatic Eyes PERRL and EOMs intact bilaterally Neck full ROM, supple and no JVD Resp Resp Narrative: Mild respiratory distress, prolonged expiratory phase, diffuse expiratory wheezes, equal bilaterally. Cardio regular rate and regular rhythm Rate: Negative for tachycardic GI non-tender and non-distended Auscultation: normoactive bowel sounds Palpation: soft Back/Spine no CVA tenderness General Back: other FROM Extremity normal to inspection and no calf tenderness General Extremety ED: Negative for edema, pulses abnormal or tenderness General Extremity: Negative for edema or pulses abnormal Neuro oriented x3, CN's II-XII intact bilaterally and no sensory deficits noted Sensorium / Orientation: awake and alert Motor Exam: strength 5/5 throughout Psych Psych Narrative: Flat affect Mood & Affect: anxious Skin no rashes or lesions noted and no wounds MDM MDM MDM Narrative Medical decision making narrative: Patient placed on oxygen and BiPAP along with nebulizer treatment while we repeated her chest x-ray, obtain an ABG and other studies to rule out subendocardial injury, metabolic disturbance, anemia. I reviewed some old records in the meantime, she had a VQ scan that was low probability, negative venous Dopplers, and a CTA that showed no PE but bilateral groundglass opacities consistent with COVID pneumonitis all within the past week. 1 view chest x-ray certainly looks worse than her last 1 but it was nearly 10 days ago. Consistent with bilateral COVID pneumonitis. Her ABG looks reassuring, she was fairly hypoxic without the nonrebreather, but on 0.50 FiO2 BiPAP 14/8 she is doing much better and breathing better. Labs reviewed. Her BNP and troponin are negative. For the above reasons I do not think we need to reevaluate her for pulmonary embolus. Discussed with hospitalist and we will admit her to the ICU. History & Record Review Additional record(s) reviewed:: Prior inpatient record Lab Data Attestation: I reviewed the patient's lab results. Labs: Laboratory Results - last 24 hr 05/31/23 01:30 WBC 8.4 RBC 3.29 L Hgb 10.9 L Hct 31.8 L MCV 96.7 MCH 33.1 H MCHC 34.3 RDW Std Deviation 52.8 H RDW Coeff of Erlinda 15.0 H Plt Count 198 MPV 11.1 Neut % (Auto) Not Reportable Absolute Neuts (auto) 6.3 Absolute Lymphs (auto) 1.75 Total Counted 100 Neutrophils % (Manual) 68 Band Neutrophils % 1 Lymphocytes % (Manual) 21 Monocytes % (Manual) 2 Eosinophils % (Manual) 1 Metamyelocytes % 5 H Myelocytes % 2 H Nucleated RBCs/100 WBC 3 Diff Path Review May foll Platelet Estimate ADEQUATE RBC Morphology NORM C+C Sodium 134 L Potassium 3.4 L Chloride 101 Carbon Dioxide 29.0 Anion Gap 4 L BUN 22 H Creatinine 1.35 H Estim Creat Clear Calc 55.80 Est GFR (MDRD) Af Amer 52 L Est GFR (MDRD) Non-Af 43 L BUN/Creatinine Ratio 16.3 Glucose 157 H Calcium 8.1 L Troponin I High Sens 9 B-Natriuretic Peptide 44.8 ABG Data ABG results: ABG 05/31/23 01:52 Specimen Type ART Sample Site L Radial pH 7.45 Bicarbonate Actual 31.0 H Total CO2 32 Base Excess 7 H O2 Saturation 92 L O2 % 60.0 ABG pCO2 44.9 ABG pO2 62 L Teddy Test Positive O2 Delivery Device BiPAP Vent Mode Not entered Clinical Comments 17/12 12 60% Radiography Diagnostic Testing: Clinical Impression(s) from Imaging Studies Chest X-Ray 05/31/23 01:50 IMPRESSION: Bilateral airspace disease pneumonia versus edema. Electronically Signed: Rita Ramsay MD at 2:11 EST , Rhythm Strip Rhythm Strip: Sinus Rhythm Rate: 80 Ectopy: None EKG Initial EKG: Attestation: I personally reviewed and interpreted this EKG as follows: Interpretation: Sinus Rhythm and No Acute Injury Pattern Prior EKG tracings: available for review Prior: Unchanged Management Discussion w/another healthcare provider: Hospitalist Critical Care Time Critical Care Time: Yes Critical care time (excluding procedures): 30-74 minutes (33 min), Including time spent:, Discussing w/Patient &/or Family/Manager Department, Discussing w/Consultants, Arranging Admission or Transfer and Performing Direct Patient Care at Bedside Discharge Plan Triage Chief Complaint: Shortness of Breath ED Provider: Yordan Hampton Dx/Rx/DC Orders Clinical Impression: Pneumonia due to COVID-19 virus, Acute exacerbation of COPD with asthma, Acute hypoxemic respiratory failure Prescriptions: No Action escitalopram oxalate 20 mg tablet 30 mg PO DAILY pregabalin 75 mg capsule 75 mg PO BID methotrexate sodium 2.5 mg tablet 15 mg PO QWEEK Patient Comments: PT STATES SHE DOESNT TAKE ON A CERTAIN DAY OF THE WEEK atorvastatin 40 mg tablet 40 mg PO QHS Qty: 90 3RF carvedilol 6.25 mg tablet 6.25 mg PO BID Qty: 180 3RF aspirin 81 mg tablet,delayed release (DR/EC) 81 mg PO DAILY@0800 Qty: 90 3RF zolpidem [Ambien] 10 mg tablet 10 mg PO QHS PRN (Reason: SLEEP ) nitroglycerin 0.4 mg Tablet, Sublingual 0.4 mg sublingual Q5M PRN (Reason: CHEST PAIN ) Qty: 30 0RF albuterol sulfate 90 mcg/actuation HFA aerosol inhaler 2 puff INHALATION Q4H PRN (Reason: SHORTNESS OF BREATH/WHEEZING ) alprazolam 0.5 mg tablet 0.5 mg PO BID PRN (Reason: ANXIETY ) Ingrezza 80 mg capsule 80 mg PO DAILY Patient Comments: PT STATES SHE TAKES 40MG EVERY SATURDAY lidocaine 5 % ointment 1 applic topical 4X/DAY PRN (Reason: PAIN ) Rx Instructions: APPLY TO AFFECTED AREAS TOPICAL ONE TO FOUR TIMES A DAY NEEDED lansoprazole 30 mg capsule,delayed release(DR/EC) 30 mg PO DAILY fluticasone furoate-vilanterol [Breo Ellipta] 200-25 mcg/dose blister with device 1 inh INHALATION DAILY diclofenac sodium 1 % gel 2 g TOPICAL 4X/DAY PRN (Reason: PAIN ) Patient Comments: PT STATES SHE USES TWICE DAILY Rx Instructions: APPLY 2 GRAMS TO AFFECTED AREA(S) UP TO FOUR TIMES A DAY NEEDED buprenorphine 20 mcg/hour patch weekly 1 patch transdermal Patient Comments: PT PUT PATCH ON UPPER LEFT LEG ON SATURDAY clopidogrel 75 mg tablet 75 mg PO DAILY losartan 50 mg tablet 50 mg PO DAILY Patient Comments: TAKE 1 TABLET BY MOUTH DAILY dexamethasone 6 mg tablet 6 mg PO DAILY Qty: 7 0RF cefdinir 300 mg capsule 300 mg PO BID Qty: 14 0RF amitriptyline 75 mg tablet 75 mg PO QHS Patient Comments: Take 1 tablet by mouth daily at bedtime. lamotrigine 200 mg tablet See Rx Instructions PO .COMPLEX Patient Comments: Take 1/2 tablets by mouth every morning AND 1 tablet every evening. Rx Instructions: orally Take 1/2 tablets by mouth every morning AND 1 tablet every evening.; Take 1/2 tablets by mouth every morning AND 1 tablet every evening.; Primary Care Provider: Jericho Nieves Referrals: Jericho Nieves MD [Primary Care Provider] -
[2023-05-31] MEDS: Ipratropium/Albuterol Sulfate 3 ML AMPUL.NEB INHALATION ×4 (01:38→19:18)
[2023-05-31 01:41] LABS: Hematocrit 31.8 % (37-47); Hemoglobin 10.9 g/dL (12.0-15.0); Mean Corp Hgb Conc 34.3 g/dL (32-36); Mean Corpuscular Hgb 33.1 pg (27.0-32.0); Mean Corpuscular Volume 96.7 fL (81-99); Mean Platelet Vol. 11.1 fl (6.2-12.0); POSITIVE COUNT YES; POSITIVE MORPHOLOGY YES; Platelet Count 198 K/mm3 (150-450); RBC Distribution Width SD 52.8 fl (35.1-43.9); Red Blood Count 3.29 M/mm3 (4.2-5.4); White Blood Count 8.4 K/mm3 (4.4-11.0)
[2023-05-31 01:44] LABS: Differential Indicated MANUAL DIFF
--- OUTSIDE RECORDS SUMMARY | 2023-05-31 01:48 | XMS RPT_ITS | CCD ---
Author Name Unknown Address [address] [place] [address] Organization [facility] Care Team Providers Care Milieu Technician Name Role Phone Ezequiel CARRANZA, Jericho Prado Primary Care Provider [phone] EZEQUIEL CARRANZA, DR HELM Primary Care Physician Ezequiel CARRANZA, Jericho Prado Primary Care Provider [phone] KARISHMA CARRANZA, ELIECER Dent Attending Unavailab christiano [...] [acetaminophen-oxy codone] Drug Allergy 5 GI Upset [facility] (20 sources) cariprazine; Translations: [CARIPRAZINE] Drug Allergy 9 Other: See Comments [facility] (20 sources) Codeine; Translations: [codeine] Drug Allergy 5 Other: See Comments [facility] (20 sources) HYDROmorphone; Translations: [HYDROMORPHONE (BULK)] Drug Allergy 5 GI Upset [facility] (20 sources) QUEtiapine; Translations: [quetiapine] Drug Allergy 9 Other: See Comments [facility] (20 sources) traMADol; Translations: [TRAMADOL HCL] Drug Allergy 5 GI Upset [facility] (2 sources) HYDROmorphone; Translations: [hydromorphone] Drug Allergy [facility] (2 sources) traMADol; Translations: [tramadol] Drug Allergy [facility] Medications Current Medications Medication Drug Class(es) Dates [...] every six hours as needed for pain [place] 325- 5 mg oral tablet Dose = [...] Coronary atherosclerosis; Translations: [Atherosclerotic heart disease of havasupai coronary artery without angina pectoris] Onset: 2 [...] (20 sources) Patient encounter status; Translations: [Other manager intermediate (current) drug therapy] Onset: 07-01-2022 Episodic Other aftercare (1 source) Other manager intermediate (current) drug therapy; Translations: [Encounter for long-term [...] 08:56-0500 Body weight 128.19 kg Seda Rajguru [employer] Work Phone: [facility] 05-14-2023 08:56-0500 Diastolic blood pressure 58 mm[Hg] Seda Rajguru [employer] Work Phone: [facility] 05-14-2023 08:56-0500 Heart rate 80 /min Seda Rajguru [employer] Work Phone: [facility] 05-14-2023 08:56-0500 Systolic blood pressure 122 mm[Hg] Seda Rajguru [employer] Work Phone: [facility] 04-02-2023 13:37-0500 Body weight 126.1 kg Seda Rajguru [employer] Work Phone: [facility] 04-02-2023 13:37-0500 Diastolic blood pressure 66 mm[Hg] Seda Rajguru [employer] Work Phone: [facility] 04-02-2023 13:37-0500 Heart rate 80 /min Seda Rajguru [employer] Work Phone: [facility] 04-02-2023 13:37-0500 Systolic blood pressure 138 mm[Hg] Seda Rajguru [employer] Work Phone: [facility] 03-06-2023 11:02-0400 Body weight 127.87 kg Jericho Tinoco MD Work Phone: [facility] 03-06-2023 11:02-0400 Diastolic blood pressure 60 mm[Hg] Jericho Tinoco MD Work Phone: [facility] 03-06-2023 11:02-0400 Heart rate 64 /min Jericho Tinoco MD Work Phone: [facility] 03-06-2023 11:02-0400 Respiratory rate 20 /min Jericho Tinoco MD Work Phone: [facility] 03-06-2023 11:02-0400 Systolic blood pressure 118 mm[Hg] Jericho Tinoco MD Work Phone: [facility] 01-21-2023 12:56-0400 Body weight 124.29 kg Jamilah Memo PA-C Work Phone: [facility] 01-21-2023 12:56-0400 Diastolic blood pressure 60 mm[Hg] Jamilah Memo PA-C Work Phone: [facility] 01-21-2023 12:56-0400 Heart rate 62 /min Jamilah Memo PA-C Work Phone: [facility] 01-21-2023 12:56-0400 Respiratory rate 15 /min Jamilah Memo PA-C Work Phone: [facility] 01-21-2023 12:56-0400 SaO2% (BldA) [Mass fraction] 97 % Jamilah Memo PA-C Work Phone: [facility] 01-21-2023 12:56-0400 Systolic blood pressure 122 mm[Hg] Jamilah Memo PA-C Work Phone: [facility] 01-15-2023 08:17-0400 Body weight 126.55 kg Seda Rajguru [employer] Work Phone: [facility] 01-15-2023 08:17-0400 Diastolic blood pressure 58 mm[Hg] Seda Rajguru [employer] Work Phone: [facility] 01-15-2023 08:17-0400 Heart rate 76 /min Seda Rajguru [employer] Work Phone: [facility] 01-15-2023 08:17-0400 Systolic blood pressure 132 mm[Hg] Seda Rajguru [employer] Work Phone: [facility] 07-20-2022 15:15-0400 Body height 156.2 cm Pulm Wstr Work Phone: [facility] 07-20-2022 15:15-0400 Body weight 119.75 kg Pulm Wstr Work Phone: [facility] 07-19-2022 14:43-0400 Body weight 119.75 kg Talia Dias MD Work Phone: [facility] 07-19-2022 14:43-0400 Diastolic blood pressure 84 mm[Hg] Talia Dias MD Work Phone: [facility] 07-19-2022 14:43-0400 Heart rate 75 /min Talia Dias MD Work Phone: [facility] 07-19-2022 14:43-0400 Respiratory rate 18 /min Talia Dias MD Work Phone: [facility] 07-19-2022 14:43-0400 SaO2% (BldA) [Mass fraction] 97 % Talia Dias MD Work Phone: [facility] 07-19-2022 14:43-0400 Systolic blood pressure 138 mm[Hg] Talia Dias MD Work Phone: [facility] 06-01-2022 10:40-0500 Body weight 118.84 kg Joanna Older [employer] Work Phone: [facility] 06-01-2022 10:40-0500 Diastolic blood pressure 60 mm[Hg] Joanna Older [employer] Work Phone: [facility] 06-01-2022 10:40-0500 Heart rate 68 /min Joanna Older [employer] Work Phone: [facility] 06-01-2022 10:40-0500 Respiratory rate 20 /min Joanna Older [employer] Work Phone: [facility] 06-01-2022 10:40-0500 SaO2% (BldA) [Mass fraction] 98 % Joanna Older [employer] Work Phone: [facility] 06-01-2022 10:40-0500 Systolic blood pressure 114 mm[Hg] Joanna Older [employer] Work Phone: [facility] 04-11-2022 16:17-0500 Body weight 118.84 kg Jericho Tinoco MD Work Phone: [facility] 04-11-2022 16:17-0500 Diastolic blood pressure 64 mm[Hg] Jericho Tinoco MD Work Phone: [facility] 04-11-2022 16:17-0500 Heart rate 69 /min Jericho Tinoco MD Work Phone: [facility] 04-11-2022 16:17-0500 Respiratory rate 20 /min Jericho Tinoco MD Work Phone: [facility] 04-11-2022 16:17-0500 SaO2% (BldA) [Mass fraction] 98 % Jericho Tinoco MD Work Phone: [facility] 04-11-2022 16:17-0500 Systolic blood pressure 94 mm[Hg] Jericho Tinoco MD Work Phone: [facility] 03-08-2022 15:35-0400 Body temperature 98.42 [degF] ROBIN RIGGS MD [facility] 03-08-2022 15:35-0400 Diastolic blood pressure 82 mm[Hg] ROBIN RIGGS MD [facility] 03-08-2022 15:35-0400 Heart rate 82 /min ROBIN RIGGS MD [facility] 03-08-2022 15:35-0400 Respiratory rate 16 /min ROBIN RIGGS MD [facility] 03-08-2022 15:35-0400 Systolic blood pressure 154 mm[Hg] ROBIN RIGGS MD [facility] 03-01-2022 10:50-0400 Body weight 120.2 kg Jericho Tinoco MD Work Phone: [facility] 03-01-2022 10:50-0400 Diastolic blood pressure 76 mm[Hg] Jericho Tinoco MD Work Phone: [facility] 03-01-2022 10:50-0400 Heart rate 69 /min Jericho Tinoco MD Work Phone: [facility] 03-01-2022 10:50-0400 Respiratory rate 14 /min Jericho Tinoco MD Work Phone: [facility] 03-01-2022 10:50-0400 SaO2% (BldA) [Mass fraction] 98 % Jericho Tinoco MD Work Phone: [facility] 03-01-2022 10:50-0400 Systolic blood pressure 124 mm[Hg] Jericho Tinoco MD Work Phone: [facility] 01-18-2022 13:02-0400 Body height 156.2 cm Jamilah Memo PA-C Work Phone: [facility] 01-18-2022 13:02-0400 Body weight 121.56 kg Jamilah Memo PA-C Work Phone: [facility] 01-18-2022 13:02-0400 Diastolic blood pressure 68 mm[Hg] Jamilah Memo PA-C Work Phone: [facility] 01-18-2022 13:02-0400 Heart rate 62 /min Jamilah Memo PA-C Work Phone: [facility] 01-18-2022 13:02-0400 Respiratory rate 14 /min Jamilah Memo PA-C Work Phone: [facility] 01-18-2022 13:02-0400 SaO2% (BldA) [Mass fraction] 96 % Jamilah Memo PA-C Work Phone: [facility] 01-18-2022 13:02-0400 Systolic blood pressure 122 mm[Hg] Jamilah Memo PA-C Work Phone: [facility] 01-18-2022 12:46-0400 Body height 156.2 cm Respiratory Wstr Work Phone: [facility] 01-18-2022 12:46-0400 Body weight 121.97 kg Respiratory Wstr Work Phone: [facility] 01-18-2022 12:46-0400 Heart rate 62 /min Respiratory Wstr Work Phone: [facility] 01-18-2022 12:46-0400 Respiratory rate 14 /min Respiratory Wstr Work Phone: [facility] 01-18-2022 12:46-0400 SaO2% (BldA) [Mass fraction] 96 % Respiratory Wstr Work Phone: [facility] Encounters Encounter Date Encounter Type Care Provider Facility Start: 05-14-2023 End: 05-15-2023 ambulatory JERICHO TINOCO Facility:[facility] Start: 05-14-2023 End: 05-14-2023 Patient encounter procedure Seda Quiroz APRN.[employer] Work Phone: Psychiatry Procedures Date Procedure Procedure [...] Activity Detail Author Start: 09-03-2027 Colonoscopy COLONOSCOPY [facility] Start: 09-03-2027 COLORECTAL CANCER SCREENING COLORECTAL CANCER SCREENING [facility] Start: 09-03-2027 Screening for malign ant neoplasm of colon [facility] Start: 08-24-2025 Urine microalbumin profile [facility] Start: 04-12-2024 Glaucoma screening Dilated Retinal E xam [facility] Start: 03-15-2024 Mammography Mammogram Screening [facility] Start: 03-15-2024 Screening for malign ant neoplasm of breast Mammogram Screening [facility] Start: 03-06-2024 Annual PCP Team Home Health Attendant regan Disease Visit Annual PCP Team Chronic Disease Visit [facility] Start: 03-06-2024 Creatinine measurement Serum Creatin ine [facility] Start: 03-06-2024 Hepatitis B screening Urine Al bumin:Creatinine Ratio [facility] Start: 03-06-2024 Serum Creatinine Serum Creatinine Cl [facility] Start: 11-03-2023 Influenza vaccination Influenza Vacc ine (#1) [facility] Immunizations Immunization Date Immunization Notes Care Provider Fa nestor 04-07-2019 influenza, injectabl e, quadrivalent, contains preservative Jamilah Memo PA-C Work Phone: [facility] 04-07-2019 influenza virus vacc ine, unspecified formulation Seda Quiroz APRN.CNP Work Phone: [facility] 02-04-2018 influenza, high dose seasonal, preservative-free Jamilah Memo PA-C Work Phone: [facility] Work Phone: 02-20-2017 influenza, injectabl e, quadrivalent, contains preservative Jamilah Emmo PA-C Work Phone: [facility] 03-02-2016 influenza, injectabl e, quadrivalent, contains preservative Jamilah Memo PA-C Work Phone: [facility] 03-02-2016 pneumococcal polysaccharide vaccine, 23 valent Jamilah Memo PA-C Work Phone: [facility] 08-25-2015 tetanus toxoid, redu wayne diphtheria toxoid, and acellular pertussis vaccine, adsorbed Jamilah Galvan PA-C Work Phone: [facility] 05-26-2015 influenza, injectabl e, quadrivalent, contains preservative Jamilah Galvan PA-C Work Phone: [facility] Payers Date Payer Category Payer Medicaid [facility] MEDICAID MYC ARE [facility] MEDICAID [id number] 2015-Present [phone] [address] [place] [address] Medicaid [id number] 2015 Medicare [id number] 2015 Medicare [facility] MEDICARE MYC ARE [facility] MEDICARE [id number] 2015-Present [phone] [address] [place] [address] Medicare [id number] 2015 Unknown [id number] 1966 Unknown [id number] 1966 Unknown [id number] Social History Date Type Detail Facility Start: 1981 End: 07-19-2022 Tobacco smoking status NHIS Smokes tobacco daily [facility] Work Phone: Start: 1981 History of tobacco use Cigarette Smo ker [facility] Work Phone: Start: 12-16-2019 End: 09-20-2022 Cigarettes smoked current (pack per day) - Reported 1 [facility] Start: 12-16-2019 End: 07-19-2022 Tobacco use and exposure Smokeless tobacco non-user [facility] Work Phone: Start: 07-17-2021 End: 06-01-2022 Alcohol intake Current drinker of alcohol (finding) [facility] Start: 10-25-2020 History SDOH Alcohol Comment occasional, rarely [facility] Start: 02-22-2020 End: 08-27-2022 History SDOH Financial 5 [facility] Start: 02-22-2020 End: 08-27-2022 History SDOH Food Worry 1 [facility] Start: 02-22-2020 End: 08-27-2022 History SDOH Transport Med 2 [place] [facility] Start: 1965 Sex Assigned At Not on file C [facility] Start: 07-07-2021 End: 01-31-2022 Exposure to SARS-CoV-2 (event) Not sure [facility] Start: 12-02-2021 History SDOH Alcohol Comment rare 1 drink [facility] Start: 12-02-2021 End: 08-27-2022 History SDOH Physical Activity DPW 0 [facility] Start: 12-02-2021 End: 01-18-2022 Tobacco Comment from age 16 [facility] Start: 03-05-2019 Tobacco smoking status Heavy t obacco smoker (finding) [facility] Sex Assigned At Sex [facility] Start: 06-22-2022 End: 04-02-2023 Alcohol intake Ex-drinker (finding) [facility] Start: 07-19-2022 Tobacco Comment from age 16. O ne PPD in past. Cut to 1/2 PPD in April [facility] Start: 08-27-2022 History SDOH Social Connections Phone 3 [facility] Start: 08-27-2022 History SDOH Social Connections Living 8 [facility] Start: 08-27-2022 End: 09-20-2022 Social connection and isolation panel [facility] Do you belong to any clubs or organizations such as hoahaoism groups, unions, fraternal or athletic groups, or school groups? No [facility] Are you now , , , , never or living with a partner? Living with partner [facility] How often to you hav e a drink containing alcohol? Monthly or less [facility] How many standard dr inks containing alcohol do you have on a typical day? 1 or 2 [facility] How often do you hav e 6 or more drinks on 1 occasion? Never [facility] How hard is it for y ou to pay for the very basics like food, housing, medical care, and heating Not hard at all [facility] Do you feel stress - tense, restless, nervous, or anxious, or unable to sleep at night because your mind is troubled all the time - these days [OSQ] To some extent [facility] (I/We) worried wheth er (my/our) food would run out before (I/we) got money to buy more. Never true [facility] Medical Equipment Procedure Code Equipment Code Equipment Origin al Text Equipment Identifier Dates Spacer Avs 4d 8m m Spinal Bone Plug - [id number] Start: 05-30-2019 Ashley Drill Bit 12mm X 23mm [id number] Start: 05-30-2019 Self Starting Variable Screw Size 4.0mm X 14mm [id number] Start: 05-30-2019 Ashley Cervical P late 1-Level 22mm [id number] Start: 05-30-2019 Functional Status Date Assessment Result Facility 03-08-2022 Functional Status Standard Safet y ID band on, Call device within reach, Bed in low position, Wheels locked, Upper/Half-Length side-rails up, Bedside Cart Locked, Safety level maintained [facility] Mental Status Date Assessment Result Facility 03-08-2022 Mental Status Orientation Oriented x 4 [facility] Clinical Notes 01-25-2020 to 05-14-2023 Seda Quiroz APRN.CNP - 05/14/2023 9:02 AM Seda Quigley APRN.CNP - 04/02/2023 2:10 PM ESTTelephone Encounter - Michelle Sanchez LPN - 03/19/2023 2:57 PM ESTPatient Instructions Note Date & Type Note Facility 05-14-2023 Note HNO ID: [id number] Author: SEDA QUIROZ APRN.CNP Service: ? Author [...] really hard time sitting in the car. [place] that the car was caving in on [...] myocardial infarction of lateral wall (HCC) 04/04/2022 [facility] Cerebellar mass 1995 mass versus infarct [...] 12/04/2021 Type 2 diabetes mellitus without complication ([facility]) 03/02/2016 PAST SURGICAL HISTORY Procedure [...] AND/TRANSPOS MEDIAN NRV CARPAL TUNNE Left 08/30/2009 [facility] PAST SURGICAL HISTORY OF 05/30/2019 C5-[address] Grace Long PT ED HEART AND VASCULAR Cardiac Stent [facility] 11/30/22 S PROBE PERC LUMBAR DISCECTOMY 04/2000 [facility] Current Outpatient Medications Medication Sig Dispense [...] 3 escitalopram o (more content not included)... [facility] 05-14-2023 History of Presen t illness Narrative [...] really hard time sitting in the car. [place] that the car was caving in on [...] myocardial infarction of lateral wall (HCC) 04/04/2022 [facility] Cerebellar mass 1995 mass versus infarct [...] 12/04/2021 Type 2 diabetes mellitus without complication ([facility]) 03/02/2016 PAST SURGICAL HISTORY Procedure [...] &/TRANSPOS MEDIAN NRV CARPAL TUNNE Left 08/30/2009 [facility] PAST SURGICAL HISTORY OF 05/30/2019 C5-[address] Grace Long PT ED HEART AND VASCULAR Cardiac Stent [facility] 04/04/22 S PROBE PERC LUMBAR DISCECTOMY 04/2000 [facility] Current Outpatient Medications Medication Sig Dispense [...] REVIEWED: Psychiatric scales, Electronic medical record, and Electrical Mechanical Technician notes DIAGNOSIS: Bipolar disorder, currently depressed, moderate [...] which included preparing to see the patient, [id number] patient care, completing clinical documentation, obtaining and/or [...] TIME: 9:03 AM documented in this encounter [facility] 04-02-2023 Note HNO ID: [id number] Author: Seda Quiroz APRN.CNP Service: ? Author [...] struggling with shortness of breath. Saw her fitter tacker and was notified that her lung function was normal. Has been following up with her calciner feeder. Had to take Nitro due to chest [...] Date Acute myocardial infarction of lateral wall ([facility]) 04/04/2022 [facility] Cerebellar mass 1995 mass versus infarct Cervical cord compression with myelopathy ([facility]) 05/28/2019 Depression 04/11/2015 Disc degeneration, [...] 12/04/2021 Type 2 diabetes mellitus without complication ([facility]) 03/02/2016 PAST SURGICAL HISTORY Procedure [...] AND/TRANSPOS MEDIAN NRV CARPAL TUNNE Left 08/30/2009 [facility] PAST SURGICAL HISTORY OF 05/30/2019 C5-[address] Grace Long PT ED HEART AND VASCULAR Cardiac Stent [facility] 04/04/22 S PROBE PERC LUMBAR DISCECTOMY 04/2000 [facility] Current Outpatient Medications Medication Sig Dispense [...] 1 tablet by (more content not included)... [facility] 04-02-2023 History of Presen t illness Narrative [...] struggling with shortness of breath. Saw her fitter tacker and was notified that her lung function was normal. Has been following up with her calciner feeder. Had to take Nitro due to chest [...] myocardial infarction of lateral wall (HCC) 04/04/2022 [facility] Cerebellar mass 1995 mass versus infarct [...] &/TRANSPOS MEDIAN NRV CARPAL TUNNE Left 08/30/2009 [facility] PAST SURGICAL HISTORY OF 05/30/2019 C5-[address] Grace Long PT ED HEART AND VASCULAR Cardiac Stent [facility] 04/04/22 S PROBE PERC LUMBAR DISCECTOMY 04/2000 [facility] Current Outpatient Medications Medication Sig Dispense [...] which included preparing to see the patient, [id number] patient care, completing clinical documentation, obtaining and/or [...] TIME: 2:10 PM documented in this encounter [facility] 03-19-2023 Miscellaneous Notes Patient notified and voices [...] for last apt. documented in this encounter [facility] 03-15-2023 Note HNO ID: [id number] Author: Marta Mosqueda RT(R) Service: ? Author [...] RT Arias(R) March 15, 2023 1:24 PM [facility] 03-11-2023 Miscellaneous Notes Patient has been identified [...] Gricelda Duckworth LPN. documented in this encounter [facility] 03-07-2023 Note HNO ID: [id number] Author: Aron Navarro Service: ? Author Type: [...] RTC in 3-4 months. Aron Navarro DPM [facility] 03-07-2023 Note HNO ID: [id number] Author: Pepper Estrada LPN Service: ? Author Type: LICENSED NURSE Type: Progress Notes Filed: 03/08/2023 10:31 PM Note Text: AMB ROOMING INTAKE FLOWSHEET DATA Patient presents with: Left Foot - Established Patient, Diabetic Foot Care Right Foot - Established Patient, Diabetic Foot Care Pepper Estrada LPN [facility] 03-06-2023 Note HNO ID: [id number] Author: Jericho Tinoco MD Service: ? Author Type: Physician Type: Progress Notes Filed: 03/06/2023 12:34 PM Note Text: This note was created using [employer]. Subjective Juan Eagle is a 58 year old female. She's been dealing with right wrist pain for about 2 months, with no injury. She reported taking up to 12 ibuprofen per day. Pain was worse with movement. Bracing helped some. X rays showed no acute findings. Her joints have been hurting more in general. 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 specialty person in [place], so had been off Humira for more [...] (Bmi) of 50.0 to 59.9 in Adult ([facility]) Persistent Headaches S/P Cervical Spinal Fusion Tobacco Use Disorder Moderate Persistent Asthma Without Complication Psoriatic Arthritis ([facility]) Irritable Bowel Syndrome With Diarrhea Stage 3a Chronic Kidney Disease ([facility]) Coronary Artery Disease Involving Iroquois Coronary Artery of Iroquois Heart Without Angina Pectoris St Elevation Myocardial Infarction Involving Left Circumflex Coronary Artery ([facility]) Ischemic Cardiomyopathy Encounter for Long-Term (Current) Use of Medications Bipolar Disorder ([facility]) Ptsd (Post-Traumatic Stress Disorder) Dyskinesia, Tardive [...] She is aler (more content not included)... [facility] 03-06-2023 History of Presen t illness Narrative This note was created using [employer]. Subjective Juan Eagle is a 58 year old female. She's been dealing with right wrist pain for about 2 months, with no injury. She reported taking up to 12 ibuprofen per day. Pain was worse with movement. Bracing helped some. X rays showed no acute findings. Her joints have been hurting more in general. 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 specialty person in [place], so had been off Humira for more [...] Mellitus With Stage 3a Chronic Kidney Disease ([facility]) Mixed Hyperlipidemia Jose On Cpap Radiculopathy, Lumbar Region Postlaminectomy Syndrome Ddd (Degenerative Disc Disease), Lumbar Edema Class 3 Severe Obesity With Body Mass Index (Bmi) of 50.0 to 59.9 in Adult ([facility]) Persistent Headaches S/P Cervical Spinal Fusion Tobacco Use Disorder Moderate Persistent Asthma Without Complication Psoriatic Arthritis ([facility]) Irritable Bowel Syndrome With Diarrhea Stage 3a Chronic Kidney Disease ([facility]) Coronary Artery Disease Involving Iroquois Coronary Artery of Iroquois Heart Without Angina Pectoris St Elevation Myocardial Infarction Involving Left Circumflex Coronary Artery ([facility]) Ischemic Cardiomyopathy Encounter for Long-Term (Current) Use of Medications Bipolar Disorder ([facility]) Ptsd (Post-Traumatic Stress Disorder) Dyskinesia, Tardive [...] Jericho Tinoco MD documented in this encounter [facility] 02-20-2023 Miscellaneous Notes Message to call office. Message to call office. Message to call office. Last: 01/15/2023 Noted-follow up 4 weeks 02/12/2023-cx'd by patient Covid exposure Next: NA documented in this encounter [facility] 01-21-2023 Note HNO ID: [id number] Author: Jamilah Galvan PA-C Service: ? Author Type: Physician Pediatric Intensive Physician Type: Progress Notes Filed: 01/21/2023 1:28 PM Note Text: Patient: Juan Eagle PCP: Jericho Tinoco MD CC: follow up HPI: Juan Eagle 57 year old morbidly obese female current 99-mnsh-xfpx smoker with PMH significant for GERD, HLD, JOSE on CPAP, DM2, FL in March 2022 coded 3 times s/p [...] all sleep. DME: Medical Service. Follow with [facility]. PAST MEDICAL HISTORY Diagnosis Date Acute myocardial infarction of lateral wall ([facility]) 04/04/2022 [facility] Cerebellar mass 1995 mass versus infarct Cervical cord compression with myelopathy ([facility]) 05/28/2019 Depression 04/11/2015 Disc degeneration, [...] region 12/05/2015 Stage 3b chronic kidney disease ([facility]) 12/04/2021 Type 2 diabetes mellitus without complication ([facility]) 03/02/2016 Allergies: Codeine Other: See [...] PAST SURGICAL HISTOR (more content not included)... [facility] 01-21-2023 History of Presen t illness Narrative Images from the original note were not included. Patient: Juan Eagle PCP: Jericho Tinoco MD CC: follow up HPI: Juan Eagle 57 year old morbidly obese female current 44-mwzm-ietc smoker with PMH significant for GERD, HLD, JOSE on CPAP, DM2, FL in March 2022 coded 3 times s/p [...] all sleep. DME: Medical Service. Follow with [facility]. PAST MEDICAL HISTORY Diagnosis Date Acute myocardial infarction of lateral wall (HCC) 04/04/2022 [facility] Cerebellar mass 1995 mass versus infarct [...] &/TRANSPOS MEDIAN NRV CARPAL TUNNE Left 08/30/2009 [facility] PAST SURGICAL HISTORY OF 05/30/2019 C5-[address] Grace Long PT ED HEART AND VASCULAR Cardiac Stent [facility] 04/04/22 S PROBE PERC LUMBAR DISCECTOMY 04/2000 [facility] I reviewed the past medical history, [...] obstruction Imaging / Diagnostic Studies: CXR 03/2022 [facility] reviewed showing bilateral hazy opacities without [...] Jamilah Galvan PA-C documented in this encounter [facility] 01-15-2023 Miscellaneous Notes Medication sent to [facility]. [facility] does have this medication in stock, Patient aware you will send there. [facility] calls to report that Ingrezza is a specialty medication and [facility] cannot get that med. Will need to try somewhere else. Elham Graves LPN documented in this encounter [facility] 01-15-2023 Note HNO ID: [id number] Author: Cassie Kendrick RT(R) Service: Radiology Author [...] Kendrick RT(R) January 15, 2023 9:25 AM [facility] 01-15-2023 Note HNO ID: [id number] Author: Fidel Bazan APRN.[employer]ING [employer] OP Service: ? Author Type: Nurse Practitioner Type: [...] Date Acute myocardial infarction of lateral wall ([facility]) 04/04/2022 [facility] Cerebellar mass 1995 mass versus infarct Cervical cord compression with myelopathy ([facility]) 05/28/2019 Depression 04/11/2015 Disc degeneration, [...] 12/04/2021 Type 2 diabetes mellitus without complication ([facility]) 03/02/2016 PAST SURGICAL HISTORY Procedure [...] AND/TRANSPOS MEDIAN NRV CARPAL TUNNE Left 08/30/2009 [facility] PAST SURGICAL HISTORY OF 05/30/2019 C5-[address] Grace Long PT ED HEART AND VASCULAR Cardiac Stent [facility] 04/04/22 S PROBE PERC LUMBAR DISCECTOMY 04/2000 [facility] ALLERGIES Codeine, Seroquel [Quetiapine], Vraylar [Cariprazine], [...] Hypertension Sister B (more content not included)... [facility] 01-15-2023 Note HNO ID: [id number] Author: Seda Quiroz APRN.[employer] OP Service: ? Author Type: Nurse Practitioner Type: [...] Ideations: No homicidal (more content not included)... [facility] 01-15-2023 Instructions Seda Quiroz, LEONELA.DAYANARA - 01/15/2023 9:08 AM EDT Aziza Pearson, It was good to talk with you today. Below is a summary of the plan that we discussed during your appointment for reference. Of course, if you have any questions or concerns do not hesitate to reach out to me via a message or call. Seda Reynoso APRN.MARK[employer]ING [employer] OP PLAN AND FOLLOW UP: YOU SHOULD SEEK [...] - Call the National Suicide Hotline at 4-093-NOFEILK ( ) or 8-261-974-TALK (0211) - Text 4HOPE to 629187 Medication Update: Lamictal 200 mg - take 1/2 tablet in the morning and 1 tablet in the evening. Ingrezza 40 mg - take 1 capsule every morning. Continue the rest of your psychiatric medications at the same dose. Next appointment: February 12 at 9:30 am in person -- You may call the department appointment line at [phone] to schedule your appointment. -- Please call my nurse Michelle at [phone] or send me a message in Samtec with any questions or concerns between appointments. documented in this encounter [facility] 01-15-2023 History of Presen t illness Narrative [...] referral for the patient to contact in [place]. Follow up in 4 weeks. Medication Update: [...] which included preparing to see the patient, hmtv-vu-dowc patient care, completing clinical documentation, and counseling and educating the patient/family/caregiver, ordering medications/labs. Seda Quiroz APRN.[employer] OP January 15, 2023 8:23 AM This note was partially generated using [employer] voice recognition system. Note was reviewed for accuracy. There may be minor misspellings or grammar miscues with [employer] voice recognition. documented in this encounter [facility] 12-04-2022 Note HNO ID: [id number] Author: Aron Navarro Service: ? Author Type: [...] Date Acute myocardial infarction of lateral wall ([facility]) 04/04/2022 [facility] Cerebellar mass 1995 mass versus infarct Cervical cord compression with myelopathy ([facility]) 05/28/2019 Depression 04/11/2015 Disc degeneration, [...] 12/04/2021 Type 2 diabetes mellitus without complication ([facility]) 03/02/2016 Current Outpatient Medications Medication [...] AND/TRANSPOS MEDIAN NRV CARPAL TUNNE Left 08/30/2009 [facility] PAST SURGICAL HISTORY OF 05/30/2019 C5-[address] Grace Long PT ED HEART AND VASCULAR Cardiac Stent [facility] 04/04/22 S PROBE PERC LUMBAR DISCECTOMY 04/2000 [facility] FAM (more content not included)... [facility] 12-04-2022 Note HNO ID: [id number] Author: Pepper Estrada LPN Service: ? Author Type: LICENSED NURSE Type: Progress Notes Filed: 12/05/2022 6:45 AM Note Text: AMB ROOMING INTAKE FLOWSHEET DATA Patient presents with: Left Foot - Established Patient, Diabetic Foot Care Right Foot - Established Patient, Diabetic Foot Care Pepper Estrada LPN [facility] 12-04-2022 Instructions Aron Navarro - 12/04/2022 2:15 [...] (or decreased sensation in your feet) a supply chain consultant should always cut your toenails. Be Careful [...] Go to your health care provider or supply chain consultant to treat these conditions. documented in this encounter [facility] 12-04-2022 History of Presen t illness Narrative [...] myocardial infarction of lateral wall (HCC) 04/04/2022 [facility] Cerebellar mass 1995 mass versus infarct [...] &/TRANSPOS MEDIAN NRV CARPAL TUNNE Left 08/30/2009 [facility] PAST SURGICAL HISTORY OF 05/30/2019 C5-[address] Grace Long PT ED HEART AND VASCULAR Cardiac Stent [facility] 04/04/22 S PROBE PERC LUMBAR DISCECTOMY 04/2000 [facility] FAMILY HISTORY Problem Relation Age of [...] Objective: Patient presents to clinic ambulating in [facility] Constitutional: Pt is a well [...] with diabetes mellitus due to underlying condition ([facility]) (primary encounter diagnosis) (L84) Callus [...] Pepper Estrada LPN documented in this encounter [facility] 11-16-2022 Miscellaneous Notes Letter faxed to number [...] a letter and it needs faxed to [phone]. Sofi Carrion RN documented in this encounter [facility] 11-07-2022 Note Patient Outreach (IN TMMN) JUAN EAGLE ([id number]) 1965 F CHT Date Time Provider Department [...] Date Reviewed: 08/28/2022 Reviewed by: Joanna Arce APRN.MARKETING [employer] OP - Fully Assessed Visit Diagnosis:Encounter for screening mammogram for breast cancer [Z12.31] Order(s):[facility] SCREENING [[id number]] Order #: [id number] FUTURE Prescriptions as of 11/12/2022 - dulaglutide [...] (HCC) [N18.31] 12/04/2021 Coronary artery disease involving havasupai andre*04/11/2022 ST elevation myocardial infarction involving le*04/11/2022 Ventricular fibrillation (HCC) [I49.01] 04/11/2022 08/28/2022 Ischemic cardiomyopathy [I25.5] 04/11/2022 Encounter for long-term (current) use of medica*07/01/2022 Bipolar disorder (HCC) [F31.9] 07/01/2022 PTSD (post-traumatic stress disorder) [F43.10] 07/01/2022 Dys (more content not included)... [facility] 09-20-2022 Note HNO ID: [id number] Author: Seda Quiroz APRN.MARKETING [employer] OP Service: ? Author Type: Nurse Practitioner Type: [...] visit. Either the patient or their legal sales representative facility services has been informed of the risks and benefits of -- and alternatives to -- treatment through a remote evaluation and consents to proceed with the evaluation remotely. HPI: Juan aEgle is a 57 year old Female with [...] which included preparing to see the patient, ehzj-uk-doif patient care, completing clinical documentation, and counseling and educating the patient/family/caregiver, ordering medications/labs. Seda Quiroz APRN.CNP September 20, 2022 10:20 AM This note was partially generated using [employer] voice recognition system. Note was reviewed for accuracy. There may be minor misspellings or grammar miscu (more content not included)... [facility] 08-29-2022 Miscellaneous Notes Below results left on identified vm. Gricelda Duckworth LPN ----- Message from Joanna Arce APRN.CNP sent at 08/29/2022 8:41 AM EDT ----- Please let the patient know HgbA1c was 5.7, diabetes well controlled. Kidney function stable. The rest of her labs were within acceptable limits documented in this encounter [facility] 08-28-2022 Note HNO ID: [id number] Author: Joanna Arce APRN.CNP Service: ? Author [...] Date Acute myocardial infarction of lateral wall ([facility]) 04/04/2022 [facility] Cerebellar mass 1995 mass versus infarct Cervical cord compression with myelopathy ([facility]) 05/28/2019 Depression 04/11/2015 Disc degeneration, [...] 12/04/2021 Type 2 diabetes mellitus without complication ([facility]) 03/02/2016 PAST SURGICAL HISTORY Procedure [...] AND/TRANSPOS MEDIAN NRV CARPAL TUNNE Left 08/30/2009 [facility] PAST SURGICAL HISTORY OF 05/30/2019 C5-[address] Grace Long PT ED HEART AND VASCULAR Cardiac Stent [facility] 04/04/22 S PROBE PERC LUMBAR DISCECTOMY 04/2000 [facility] ALLERGIES Codeine, Seroquel [Quetiapine], Vraylar [Cariprazine], [...] Inhalation as instruct (more content not included)... [facility] 08-23-2022 Note HNO ID: [id number] Author: Seda Quiroz APRN.MARKETING [employer] OP Service: ? Author Type: Nurse Practitioner Type: [...] visit. Either the patient or their legal sales representative facility services has been informed of the risks and [...] and Lamictal at the same dose. 3. Pediatric Nurse Dr. Savage consulted about restarting benzodiazepines. He [...] intent or plan (more content not included)... [facility] 08-23-2022 Instructions Seda Quiroz APRN.CNP - 08/23/2022 [...] - Call the National Suicide Hotline at 2-578-KKJOOAT ( ) or 7-309-630-TALK (6833) - Text 4HOPE to 805915 Medication Update: Lamictal 200 mg - take 1 tablet once daily. Continue the other psychiatric medications at the same dose. Next appointment: September 20 at 10:30 am Virtual -- Please call my nurse Michelle at [phone] or send me a message in Samtec with any questions or concerns between appointments. documented in this encounter [facility] 08-23-2022 History of Presen t illness Narrative [...] visit. Either the patient or their legal sales representative facility services has been informed of the risks and [...] and Lamictal at the same dose. 3. Pediatric Nurse Dr. Savage consulted about restarting benzodiazepines. He [...] which included preparing to see the patient, kcax-ps-bcyu patient care, completing clinical documentation, and counseling and educating the patient/family/caregiver, ordering medications/labs. Seda Quiroz APRN.CNP August 23, 2022 8:03 AM This note was partially generated using [employer] voice recognition system. Note was reviewed for accuracy. There may be minor misspellings or grammar miscues with [employer] voice recognition. documented in this encounter [facility] 07-20-2022 Note HNO ID: [id number] Author: FLASH Caceres Service: ? Author Type: Respiratory Therapist Type: Progress Notes Filed: 07/20/2022 3:28 PM Note Text: PULM FUNCTION SMARTBLOCK: Provider: Talia Dias MD Assisting Tech: FLASH Caceres Spirometry: 1 [facility] 07-20-2022 History of Presen t illness Narrative PULM FUNCTION SMARTBLOCK: Provider: Talia Dias MD Assisting Tech: FLASH Caceres Spirometry: 1 documented in this encounter [facility] 07-19-2022 Note HNO ID: [id number] Author: Talia Dias MD Service: ? Author Type: Physician Type: Progress Notes Filed: 07/19/2022 4:06 PM Note Text: . Respiratory Lowber Note Patient name: Juan Eagle PCP: Jericho Tinoco MD CC: Shortness of breath HPI: Juan Eagle 57 year old morbidly obese female current 21-dvsa-eepr smoker with PMH significant for GERD, HLD, JOSE on CPAP, DM2, psoriatic arthritis and asthma, former patient of Dr. Christensen, new to me. Current therapy consists of Breo Ellipta and as needed albuterol. No issues with her Breo Ellipta. Has had relatively good control of her asthma until recently. Status post FL at the end of March, coded 3 [...] eosinophilia Imaging / Diagnostic Studies: CXR 03/2022 [facility] reviewed showing bilateral hazy opacities without pleural effusions consistent with pulmonary edema Echocardiogram with ejection fraction 60%, grade 3 diastolic dysfunction and mild pulmonary hypertension PAST MEDICAL HISTORY Diagnosis Date Acute myocardial infarction of lateral wall ([facility]) 04/04/2022 [facility] Cerebellar mass 1995 mass versus infarct Cervical cord compression with myelopathy ([facility]) 05/28/2019 Depression 04/11/2015 Disc degeneration, [...] region 12/05/2015 Stage 3b chronic kidney disease ([facility]) 12/04/2021 Type 2 diabetes mellitus without complication ([facility]) 03/02/2016 ALLERGIES Allergen Reactions Codeine [...] once daily. albuterol (more content not included)... [facility] 07-19-2022 History of Presen t illness Narrative Images from the original note were not included. . Respiratory Lowber Note Patient name: Juan Eagle PCP: Jericho Tinoco MD CC: Shortness of breath HPI: Juan Eagle 57 year old morbidly obese female current 12-lnwc-qoqe smoker with PMH significant for GERD, HLD, JOSE on CPAP, DM2, psoriatic arthritis and asthma, former patient of Dr. Christensen, new to me. Current therapy consists of Breo Ellipta and as needed albuterol. No issues with her Breo Ellipta. Has had relatively good control of her asthma until recently. Status post FL at the end of March, coded 3 [...] eosinophilia Imaging / Diagnostic Studies: CXR 03/2022 [facility] reviewed showing bilateral hazy opacities without pleural effusions consistent with pulmonary edema Echocardiogram with ejection fraction 60%, grade 3 diastolic dysfunction and mild pulmonary hypertension PAST MEDICAL HISTORY Diagnosis Date Acute myocardial infarction of lateral wall (HCC) 04/04/2022 [facility] Cerebellar mass 1995 mass versus infarct [...] &/TRANSPOS MEDIAN NRV CARPAL TUNNE Left 08/30/2009 [facility] PAST SURGICAL HISTORY OF 05/30/2019 C5-[address] Grace Long PT ED HEART AND VASCULAR Cardiac Stent [facility] 04/04/22 S PROBE PERC LUMBAR DISCECTOMY 04/2000 [facility] PMH, Social history, family history and [...] poor control of asthma 4. Cigarette smoker -79-uvsq-nflq smoker without sequelae of COPD -Smoking cessation recommended -PCP already referred patient to lung cancer screening clinic Talia Dias MD Respiratory Lowber documented in this encounter [facility] 06-28-2022 Miscellaneous Notes Amitriptyline has refill left [...] Jamilah Gotti Pss documented in this encounter [facility] 06-28-2022 Miscellaneous Notes Pt called in stating she could not refill her Breo inhaler d/t pharmacy did not have refill orders. Call to [facility] to verify our order states 11 refills. Agnes, at [facility] states they are in the process of refilling Rx for pt and not sure where the miscommunication happened and states there are plenty of refills for pt. Returned call to pt to notify M with detailed message. documented in this encounter [facility] 06-22-2022 Miscellaneous Notes Nurse from [facility] did not contact patient. Patient is returning a call she received from nurse Loaiza. Please contact the patient again. documented in this encounter [facility] 06-22-2022 Note HNO ID: [id number] Author: Seda Quiroz APRN.MARKETING [employer] OP Service: ? Author Type: Nurse Practitioner Type: [...] she was in the car driving to [place]. She continues to take Lexapro and Lamictal. [...] Vrylar (TD). She was on the [employer]. [place] that it helped with TD for the [...] AND/TRANSPOS MEDIAN NRV CARPAL TUNNE Left 08/30/2009 [facility] PAST SURGICAL HISTORY OF 05/30/2019 C5-[address] Grace Long S PROBE PERC LUMBAR DISCECTOMY 04/2000 [facility] Current Outpatie (more content not included)... [facility] 06-22-2022 Instructions Seda Quiroz APRN.DAYANARA - 06/22/2022 9:34 AM EST Aziza Pearson, It was good to meet and talk with you today. Below is a summary of the plan that we discussed during your appointment for reference. Of course, if you have any questions or concerns do not hesitate to reach out to me via a message or call. Best, Seda Quiroz APRN.MARK[employer]ING [employer] OP PLAN AND FOLLOW UP: YOU SHOULD SEEK [...] - Call the National Suicide Hotline at 8-250-VWRIUTM ( ) or 8-980-668-TALK (9462) - Text 5RAKY to 632337 Medication Update: - Restart Ambien 10 mg - take 1 tablet at bedtime to help with sleep. - Continue Lexapro and Lamictal at the same dose. Other: I left a message with your Pediatric Nurse's nurse Disha. She will fax over the latest EKG results from May so you don't have to do the EKG. She will call me back after speaking with Dr. Savage about the medications. Next appointment: --Schedule in 3 to 4 weeks or sooner if needed -- You may call the department appointment line at [phone] to schedule your appointment. -- Please call my nurse Michelle at [phone] or send me a message in Samtec with any questions or concerns between appointments. documented in this encounter [facility] 06-22-2022 History of Presen t illness Narrative [...] she was in the car driving to [place]. She continues to take Lexapro and Lamictal. [...] Vrylar (TD). She was on the [employer]. [place] that it helped with TD for the [...] &/TRANSPOS MEDIAN NRV CARPAL TUNNE Left 08/30/2009 [facility] PAST SURGICAL HISTORY OF 05/30/2019 C5-[address] Grace Long S PROBE PERC LUMBAR DISCECTOMY 04/2000 [facility] Current Outpatient Medications Medication Sig Dispense [...] Previously followed by Jason Mendoza at the [facility] Therapist: Previously saw a therapist at the counseling center but they reported that she had graduated from it. Last engaged in therapy 4 years ago. Current Plating Engineer: No Last Hospitalization: None ECT: No Previous [...] history of use or dependence SPIRITUALITY: [facility]: Juan Eagle is the 2nd of 5 siblings. The patient was born and raised in [place], [place]. She completed High school, Technical. She [...] and Lamictal at the same dose. 3. Pediatric Nurse Dr. Savage consulted about restarting benzodiazepines. He [...] which included preparing to see the patient, wqjv-cm-hbut patient care, completing clinical documentation, obtaining and/or [...] AM PAGER : documented in this encounter [facility] 06-01-2022 Note HNO ID: [id number] Author: Joanna Arce APRN.CNP Service: ? Author [...] AND/TRANSPOS MEDIAN NRV CARPAL TUNNE Left 08/30/2009 [facility] PAST SURGICAL HISTORY OF 05/30/2019 C5-[address] Grace Long S PROBE PERC LUMBAR DISCECTOMY 04/2000 [facility] ALLERGIES Codeine, Seroquel [Quetiapine], Vraylar [Cariprazine], [...] daily. Per Counseling (more content not included)... [facility] 06-01-2022 History of Presen t illness Narrative [...] &/TRANSPOS MEDIAN NRV CARPAL TUNNE Left 08/30/2009 [facility] PAST SURGICAL HISTORY OF 05/30/2019 C5-[address] Grace Long S PROBE PERC LUMBAR DISCECTOMY 04/2000 [facility] ALLERGIES Codeine, Seroquel [Quetiapine], Vraylar [Cariprazine], [...] psychiatrist. She is interested in seeing F line assigner. - CONSULT TO PSYCHIATRY 2. Insomnia, unspecified type - ICD9: 780.52, ICD10: G47.00 See above. Increase Elavil to 50 mg at bedtime 3. Panic anxiety syndrome - ICD9: 300.01, ICD10: F41.0 See above. 4. Coronary artery disease involving havasupai coronary artery of havasupai heart without angina pectoris - ICD9: 414.01, [...] Joanna Arce APRN.CNP documented in this encounter [facility] 04-12-2022 Miscellaneous Notes After appt 04/11/22 pcp is asking for med profile from [facility]. Called [facility]. They are not able to do this. Pt will need to come to their store and request this. Message left to pt with this info Called [place]. Message left with same request. documented in this encounter [facility] 04-11-2022 History of Presen t illness Narrative This note was created using [employer]. Subjective Transitional Care Management Progress Note The patients TCM visit was performed within the 7 days of discharge. Patient's Date of discharge: 04/06/2022 Date of initial coordinator contact after discharge: 04/09/2022 Discharge diagnosis: Acute FL. Cardiac arrest. Medication review completed Yes Jericho Tnioco MD Provider Documentation: In follow-up of hospitalization, [...] Kidney Disease (Hcc) Coronary Artery Disease Involving Iroquois Coronary Artery of Iroquois Heart Without Angina Pectoris St Elevation Myocardial [...] &/TRANSPOS MEDIAN NRV CARPAL TUNNE Left 08/30/2009 [facility] PAST SURGICAL HISTORY OF 05/30/2019 C5-[address] Grace Long S PROBE PERC LUMBAR DISCECTOMY 04/2000 [facility] Social History Tobacco Use Smoking status: [...] I49.01 - In the setting of acute FL. 3. Coronary artery disease involving havasupai coronary artery of havasupai heart without angina pectoris - ICD9: 414.01, [...] Jericho Tinoco MD documented in this encounter [facility] documented as of this encounter (statuses as of 08/29/2022) [facility] History of Past illness Narrative* Problem Noted [...] of this encounter (statuses as of 11/12/2022) [facility] History of Past illness Narrative* Problem Noted [...] of this encounter (statuses as of 11/16/2022) [facility] History of Past illness Narrative* Problem Noted [...] of this encounter (statuses as of 12/05/2022) [facility] [facility] of Past illness Narrative* Problem Noted [...] of this encounter (statuses as of 01/15/2023) [facility] History of Past illness Narrative* Problem Noted [...] of this encounter (statuses as of 01/15/2023) [facility] History of Past illness Narrative* Problem Noted [...] of this encounter (statuses as of 01/21/2023) [facility] History of Past illness Narrative* Problem Noted [...] of this encounter (statuses as of 02/09/2023) [facility] History of Past illness Narrative* Problem Noted [...] of this encounter (statuses as of 02/13/2023) [facility] History of Past illness Narrative* Problem Noted [...] of this encounter (statuses as of 02/20/2023) [facility] History of Past illness Narrative* Problem Noted [...] of this encounter (statuses as of 03/06/2023) [facility] History of Past illness Narrative* Problem Noted [...] of this encounter (statuses as of 03/12/2023) [facility] History of Past illness Narrative* Problem Noted [...] of this encounter (statuses as of 03/20/2023) [facility] History of Past illness Narrative* Problem Noted [...] of this encounter (statuses as of 04/08/2023) [facility] History of Past illness Narrative* Problem Noted [...] of this encounter (statuses as of 05/20/2023) [facility] History of Present illness Narrative* Brigette Fregoso LPN - 04/09/2022 3:16 PM EST TRANSITION CARE MANAGEMENT (TCM) INITIAL CONTACT Elect Equip Maint Eng Outreach Provider Action/FYI: Apt has been scheduled Initial contact with patient post discharge, spoke to patient. Patient identified by name and . TRANSITION CARE MANAGEMENT INITIAL OUTREACH DOCUMENTATION: Date of Outreach: 04/09/2022 Outreach Attempt 1: Contact Made Date of Discharge 04/06/2022 Some recent data might be hidden SUMMARY: -Pt discharged from [facility] on 04/06/22. -Admitted for: heart attack [...] home? Yes Medical records from recent hospitalization: [facility] has records if not received [facility] Discharge instructions Patient Education 03/08/2022 15:44:38 [...] leg Difficulty speaking, swallowing or walking Seizure [id number] [employer]. [address] [place] [address], [place] [address]. All rights reserved. This information is not intended as a substitute for professional medical care. Always follow yourhealthcare professional's instructions. Follow Up Care 03/08/2022 15:34:05 With:JERICHO TINOCO MD Address: [address] [place] [address]- When:2-4 days [facility] 11-03-2022 Emergency department Discharge summary Discharge Instructions Thank you for allowing [facility] to assist you with your healthcare needs. The following is importantdischarge information regarding your hospital visit. Diagnosis from Today's Visit Shingles Rash What to Do Next Instructions from Your Care Team No qualifying data available. Post Acute Orders No qualifying data available. You Need to Schedule the Following Appointments Follow Up with JERICHO TINOCO MD When Within 2-4 days Where: [address], [place] [id number]- Allergies Dilaudid Percocet 5/325 SEROquel codeine traMADol [...] Duration: 7 Days Printed Prescription Changed acetaminophen-hydrocodone ([place] 325- 5 mg oral tablet) 1 tab(s) by mouth Two (2) times a day Changed acetaminophen-hydrocodone ([place] 325- 5 mg oral tablet) 1 tab(s) [...] leg Difficulty speaking, swallowing or walking Seizure [id number] [employer]. [address] [place], [place] [address]. All rights reserved. This information is not intended as a substitute for professional medical care. Always follow yourhealthcare professional's instructions. Additional Information VACCINATE! IT SAVES LIVES! Members of the community who have not yet received the COVID-19 vaccine and would like to receive it can visit one of [facility] vaccine clinics. There are many vaccine clinic locations within the [facility]. For locations and available times, please visit [email or web address]. It is important to note that some COVID mobile vaccine clinics are held outdoors and may be canceled in rainy orstormy conditions. To learn more about pediatric vaccinations (ages 5-11), we invite you to visit the [facility] webpage. [email or web address] learn more about the COVID-19 vaccine, we invite you to visit the [facility] website for a list of frequently asked questions. [email or web address] [facility] Patient Portal Access Instructions: Stay connected with your healthcare team and access your personal medical information anytime with the [facility] Patient Portal. If you would like a full copy of your medical records please contact the [facility] Medical Records Department Saturday through Saturday between 8a.m. and 4:30p.m. Please follow the directions below to access the portal: 1.Access the email account you provided upon registration to the [facility].2.Look for an invitation email from [facility].3.Open the email and access the invitation link: Accept Invitation to [facility]4.Fill in the required alamo to create your account. Sign into www.[employer] with your username and password that you [...] you will allow to register on the [facility] Patient Portal for access to your information. You can also access the [employer] Patient Portal on the [employer] dasha. Simply click on Health Records under Couple and then click on the [employer] logo. HOW TO SAFELY DISPOSE OF PRESCRIPTION [...] Call your local pharmacy or go to [email or web address] to find one close to you.3.Make use of household items: Use cat litter or old coffee grounds to dispose medications if other options arenot available. Mix your drugs with these household products, seal them in an airtight container andthrow it into the garbage. Call [facility]: [phone] to be sure your drugs can be [...] aware that I should contact my doctor. 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: Date/Time: Relationship to Patient: Witness Name/Signature: Date/Time: [facility]10-27-2022 History of Present illness Narrative * Jericho [...] intervention Jericho Tinoco MD [facility]* Diagnosis Type 2 diabetes mellitus with stage 3a chronic kidney disease, without long-term current use of insulin (HCC)- Primary Stage 3a chronic kidney disease (HCC) Tremor Abnormal involuntary movements Persistent headaches Headache Tobacco use disorder Class 3 severe obesity with serious comorbidity and body mass index (BMI) of 50.0 to 59.9 in adult, unspecified obesity type (HCC) documented in this encounter [facility] Miscellaneous Notes* Telephone Encounter - Jericho Tinoco MD - 02/23/2022 1:08 PM EDT [facility] Nurse Note* Peggy Diaz LPN - 01/18/2022 1:01 PM EDT Intake information documented in the prior visit with FLASH Caceres today. [facility] Procedure note* FLASH Caceres - 01/18/2022 12:58 [...] 2022 TIME: 12:58 PM documented [facility] History of Present illness Narrative* FLASH Caceres - 01/18/2022 12:45 PM EDT PULM FUNCTION SMARTBLOCK: Provider: Jamilah Galvan PA-C Assisting Tech: FLASH Caceres Spirometry: 1 Exhaled Nitric Oxide: 1 documented in [facility] History of Present illness Narrative* Jamilah Galvan PA-C - 01/18/2022 12:45 PM EDT [facility], 01/18/2022: Name: Juan Eagle : 1965 The [...] FEF75 (L/sec) 0.69 0.28 1.54 0.92 133 MBT74-42 (L/sec) 2.32 1.24 3.74 2.57 110 PEF [...] answers. Jamilah Galvan PA-C documented [facility] this encounter[facility] Miscellaneous Notes* Telephone Encounter - Gricelda Duckworth LPN - 12/04/2021 5:02 PM EDT Below left referral on identified vm. Faxed referral to [facility] scheduling. Gricelda Duckowrth LPN * Telephone Encounter - Jericho Tinoco [...] is calling asking for a referral to [facility] dietitian. She is wanting directions on what to eatand not to eat with the dx of 3rd stage renal failure. [facility] Miscellaneous Notes* Telephone Encounter - Brigette Linares - 07/21/2021 11:21 AM EDT Patient electronically requesting refills as follows: Pending Prescriptions Disp Refills LANSOPRAZOLE 30 MG CAPSULE,DELAYED RELEASE 90 capsule 3 Sig: Take 1 capsule by mouth once daily. AURY: No Please review and advise. Brigette Linares documented in this encounter[facility] History of Past illness Narrative* Problem Noted [...] of this encounter (statuses as of 12/04/2021) [facility] History of Past illness Narrative* Problem Noted [...] of this encounter (statuses as of 12/04/2021) [facility] History of Past illness Narrative* Problem Noted [...] of this encounter (statuses as of 01/18/2022) [facility] History of Past illness Narrative* Problem Noted [...] of this encounter (statuses as of 01/18/2022) [facility] History of Past illness Narrative* Problem Noted [...] of this encounter (statuses as of 02/23/2022) [facility] History of Past illness Narrative* Problem Noted [...] of this encounter (statuses as of 03/01/2022) [facility] History of Past illness Narrative* Problem Noted [...] of this encounter (statuses as of 04/12/2022) [facility] History of Past illness Narrative* Problem Noted [...] of this encounter (statuses as of 04/12/2022) [facility] History of Past illness Narrative* Problem Noted [...] of this encounter (statuses as of 04/13/2022) [facility] History of Past illness Narrative* Problem Noted [...] of this encounter (statuses as of 06/01/2022) [facility] History of Past illness Narrative* Problem Noted [...] of this encounter (statuses as of 06/22/2022) [facility] History of Past illness Narrative* Problem Noted [...] of this encounter (statuses as of 06/28/2022) [facility] History of Past illness Narrative* Problem Noted [...] of this encounter (statuses as of 07/01/2022) [facility] History of Past illness Narrative* Problem Noted [...] of this encounter (statuses as of 07/01/2022) [facility] History of Past illness Narrative* Problem Noted [...] this encounter (statuses as of 07/19/2022) [address]21-2021 History of Past illness Narrative* Problem [...] of this encounter (statuses as of 07/20/2022) [facility] History of Past illness Narrative* Problem Noted [...] of this encounter (statuses as of 08/23/2022) [facility] History of Past illness Narrative* Problem Noted Date Resolved Date BMI 45.0-49.9, adult 01/25/2020 03/20/2021 Thumb tendonitis 01/20/2016 02/20/2017 Osteoarthritis of lumbar spine 12/05/2015 1 Depression 04/11/2015 08/10/2017 Low back pain 04/11/2015 02/20/2017 Gastroesophageal reflux disease without esophagi tis 04/11/2015 12/16/2019 documented as of this encounter (statuses as of 07/24/2021) [facility] History of Past illness Narrative* Problem Noted Date Resolved Date BMI 45.0-49.9, adult 01/25/2020 03/20/2021 Thumb tendonitis 01/20/2016 02/20/2017 Osteoarthritis of lumbar spine 12/05/2015 1 Depression 04/11/2015 08/10/2017 Low back pain 04/11/2015 02/20/2017 Gastroesophageal reflux disease without esophagi tis 04/11/2015 12/16/2019 documented as of this encounter (statuses as of 09/01/2021) [facility] note No data available for this section [facility] Evaluation note* Diagnosis Gastroesophageal reflux disease without esophagitis Esophageal reflux documented in this encounter [facility] note* Diagnosis Type 2 diabetes mellitus without complication (HCC) Type II or unspecified type diabetes mellitus without mention of complication, not stated as uncontrolled documented in this encounter [facility] note* Diagnosis Stage 3b chronic kidney disease (HCC)- Primary documented in this encounter [facility] note* Diagnosis Stage 3b chronic kidney disease (HCC)- Primary Type 2 diabetes mellitus without complication, without long-term current use of insulin ([facility]) documented in this encounter [facility] note* Diagnosis Moderate persistent asthma without complication Unspecified asthma documented in this encounter [facility] note* Diagnosis Moderate persistent asthma without complication Unspecified asthma documented in this encounter [facility] note* Diagnosis Moderate persistent asthma without complication- Primary Unspecified asthma Gastroesophageal reflux disease without esophagitis Esophageal reflux Tobacco use disorder JOSE (obstructive sleep apnea) Obstructive sleep apnea (adult) (pediatric) documented in this encounter [facility] note* Diagnosis Stage 3b chronic kidney disease (HCC)- Primary Panic anxiety syndrome Panic disorder without agoraphobia documented in this encounter [facility] note* Diagnosis ST elevation myocardial infarction involving left circumflex coronary artery ([facility])- Primary Acute myocardial infarction of other specified sites, initial episode of care Ventricular fibrillation (HCC) Ventricular fibrillation Coronary artery disease involving havasupai coronary artery of havasupai heart without angina pectoris Ischemic cardiomyopathy Other specified forms of chronic ischemic heart disease Mixed hyperlipidemia Type 2 diabetes mellitus with stage 3a chronic kidney disease, without long-term current use of insulin ([facility]) Tobacco [facility] Bipolar affective disorder, remission status unspecified ([facility])- Primary Insomnia, unspecified type Panic anxiety syndrome Panic disorder without agoraphobia Coronary artery disease involving havasupai coronary artery of havasupai heart without angina pectoris Persistent headaches Headache Type 2 diabetes mellitus with stage 3a chronic kidney disease, without long-term current use of insulin ([facility]) Morbid obesity with BMI of 45.0-49.9, adult ([facility]) Morbid obesity Psoriatic arthritis (HCC) Psoriatic arthropathy [facility]* Diagnosis Persistent headaches Headache Gastroesophageal reflux disease without esophagitis Esophageal reflux [facility] [place] [facility]* Diagnosis Encounter for long-term (current) use of medications- Primary Encounter for long-term (current) use of other medications Bipolar affective disorder, remission status unspecified ([facility]) PTSD (post-traumatic stress disorder) Posttraumatic stress disorder Panic disorder with agoraphobia Agoraphobia with panic disorder Dyskinesia, tardive Subacute dyskinesia due to drugs [facility] [place] [facility]* Diagnosis SOB (shortness of breath)- Primary Shortness of breath Mild intermittent asthma without complication Unspecified asthma Morbid obesity (HCC) Morbid obesity Cigarette smoker Tobacco use disorder [facility] [place]* Diagnosis SOB (shortness of breath) Shortness of breath [facility] [place] [facility]* Diagnosis PTSD (post-traumatic stress disorder)- Primary Posttraumatic stress disorder Panic disorder with agoraphobia Agoraphobia with panic disorder Dyskinesia, tardive Subacute dyskinesia due to drugs Bipolar affective disorder, currently depressed, moderate ([facility]) Bipolar I disorder, most recent episode (or current) depressed, moderate [facility] [place] [facility]* Diagnosis Encounter for screening mammogram for breast cancer [facility] [place] [facility]* Diagnosis Diabetic mononeuropathy associated with diabetes mellitus due to underlying condition ([facility])- Primary Callus of foot Corns and callosities Ingrowing toenail Ingrowing nail Onychomycosis Dermatophytosis of nail Pain in toe of left foot Pain in limb Pain in toe of right foot Pain in limb Diminished pulses in lower extremity Other symptoms involving cardiovascular system [facility] [place] [facility]* Diagnosis Bipolar affective disorder, currently depressed, moderate ([facility])- Primary Bipolar I disorder, most recent episode (or current) depressed, moderate Dyskinesia, tardive Subacute dyskinesia due to drugs Panic disorder with agoraphobia Agoraphobia with panic disorder PTSD (post-traumatic stress disorder) Posttraumatic stress disorder [facility] [place] [facility]* Diagnosis Moderate persistent asthma without complication- Primary Unspecified asthma Morbid obesity (HCC) Morbid obesity Gastroesophageal reflux disease without esophagitis Esophageal reflux Cigarette smoker Tobacco use disorder [facility] [place]* Diagnosis Panic disorder with agoraphobia Agoraphobia with panic disorder Dyskinesia, tardive Subacute dyskinesia due to drugs [facility] [place]* Diagnosis Wrist pain, right- Primary Pain in joint, forearm Psoriatic arthritis (HCC) Psoriatic arthropathy Type 2 diabetes mellitus with stage 3a chronic kidney disease, without long-term current use of insulin ([facility]) [facility] this [facility] [place]* Diagnosis Persistent headaches Headache documented in this encounter [facility] note* Diagnosis Dyskinesia, tardive- Primary Subacute dyskinesia due to drugs Bipolar affective disorder, currently depressed, moderate (HCC) Bipolar I disorder, most recent episode (or current) depressed, moderate Panic disorder with agoraphobia Agoraphobia with panic disorder PTSD (post-traumatic stress disorder) Posttraumatic stress disorder documented in this encounter [facility] note* Diagnosis Bipolar affective disorder, currently depressed, moderate (HCC)- Primary Bipolar I disorder, most recent episode (or current) depressed, moderate Dyskinesia, tardive Subacute dyskinesia due to drugs Panic disorder with agoraphobia Agoraphobia with panic disorder PTSD (post-traumatic stress disorder) Posttraumatic stress disorder documented in this encounter [facility] Discharge instructions No data available for this section [facility] Progress note No data available for this section [facility] Reason for referral (narrative)* Outpatient Procedure (Routine) - Pending Review Specialty Diagnoses / Procedures Referred By Patrick t Referred To Contact [facility] Diagnoses Encounter for long-term (current) use of medications Procedures ECG COMPLETE ECG ROUTINE ECG W/LEAST 12 LDS W/I&R Seda Quiroz, [employer] [address] [place] [address] [facility] [address] [address] Referral ID Status Reason Start Date Expiration Date Visits Requested Visits Authorized [id number] Pending Review Auto-Generat ed Referral 06/22/2022 06/22/2023 1 1 [facility] for referral (narrative)* Outpatient Procedure (Routine) - Authorized Specialty Diagnoses / Procedures [facility] To [facility] Diagnoses SOB (shortness of breath) Procedures SPIROMETRY BASELINE ONLY SPMTRY W/VC EXPIRATORY JEWEL W/WO MXML VOL VNTJ Talia Dias MD [address] [place] [address] [facility] [address] [place] [address] Referral ID Status Reason Start Date Expiration Date Visits Requested Visits Authorized [id number] Authorized Auto-Generat ed Referral 07/19/2022 08/18/2023 1 1 T [facility] for referral (narrative)* Diagnostic Procedure Only (Routine) - Pending Review Specialty Diagnoses / Procedures Referred By [facility] Referred To Contact [facility] Diagnoses Encounter for screening mammogram for breast cancer Procedures JEANNETTE SCREENING SCREENING MAMMOGRAPHY BI 2-VIEW BREAST INC CAD Jericho Tinoco MD [address] [place] [address] [facility] [address] [place] [phone] Referral ID Status Reason Start Date Expiration Date Visits Requested Visits Authorized [id number] Pending Review Auto-Generat ed Referral 11/07/2022 12/07/2023 1 1 T [facility] for referral (narrative)* Outpatient Procedure (Routine) - Authorized Specialty Diagnoses / Procedures [facility] Referred To Contact [facility] [place] Diagnoses Ingrowing toenail Procedures PVR ANK PRESS [facility] NON-INVAS PHYSIOLOGIC STD EXTREMITY ART 2 LEVEL Aron Navarro [address] [place] [address] [facility] [address] [place] [address] Referral ID Status Reason Start Date Expiration Date Visits Requested Visits Authorized [id number] Authorized Auto-Generat ed Referral 12/04/2022 12/04/2023 1 1 [facility] Summary Purpose Family History No Family History Records FoundNo Family History Records FoundNo Family History Records FoundNo Family History Records Found Advance Directives No Advanced Directives Records FoundDocuments on File Type Date Recorded 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 Advance Directive(s) 05/29/2019 12:50 PM Advance Directive(s) 04/16/2016 1:49 PM Advance Directive(s) 01/16/2016 9:20 AM Advance Directive(s) 12/19/2015 7:24 AM Reason for Referral Specialty Diagnoses / Procedures Referred By Contac t Referred To Contact Rheumatology Diagnoses Psoriatic arthritis (HCC) Procedures CONSULT TO RHEUM/IMMUN DISEASE Jericho Tinoco MD [address] [place] [address] Referral ID Status Reason Start Date Expiration Date Visits Requested Visits Authorized [id number] Ref Not Required PCP Requested Referral 03/06/2023 03/05/2024 1 1 Specialty Diagnoses / Procedures Referred By Patrick mchugh Referred To Contact Diagnoses Bipolar affective disorder, remission status unspecified (HCC) Procedures CONSULT TO PSYCHIATRY OFFICE/OUTPATIENT [facility] MDM 60-74 MINUTES Older, LEONELA Marshall[employer] [address] [place] [address] Referral ID Status Reason Start Date Expiration Date Visits Requested Visits Authorized [id number] Pending Review PCP Requested Referral 06/01/2022 06/01/2023 1 1 Additional Source Comments INFORMATION SOURCE (unrecogn ized section and content) DATE CREATED AUTHOR AUTHOR'S ORGANIZ ATION 06/19/2020 [facility] DATE CREATED AUTHOR AUTHOR'S ORGANIZ ATION 05/17/2022 [facility] ([place]) DATE CREATED AUTHOR AUTHOR'S NERI ATION 05/20/2023 [facility] [place] Source Comments (unrecognize d section and content) In the event this informatio n is protected by the Federal Confidentiality of Alcohol and Drug Abuse Patient Records regulations: The Federal rules restrict any use of the information to criminally investigate or prosecute any alcohol or drug abuse patient.[facility] the event this information is protected by the Federal Confidentiality of Alcohol and Drug Abuse Patient Records regulations: The Federal rules restrict any use of the information to criminally investigate or prosecute any alcohol or drug abuse patient.[facility]imaIn the event this information is protected by the Federal Confidentiality of Alcohol and Drug Abuse Patient Records regulations: The Federal rules restrict any use of the information to criminally investigate or prosecute any alcohol or drug abuse patient.[facility]imaIn the event this information is protected by the Federal Confidentiality of Alcohol and Drug Abuse Patient Records regulations: The Federal rules restrict any use of the information to criminally investigate or prosecute any alcohol or drug abuse patient.[facility]imaIn the event this information is protected by the Federal Confidentiality of Alcohol and Drug Abuse Patient Records regulations: The Federal rules restrict any use of the information to criminally investigate or prosecute any alcohol or drug abuse patient.[facility]imaIn the event this information is protected by the Federal Confidentiality of Alcohol and Drug Abuse Patient Records regulations: The Federal rules restrict any use of the information to criminally investigate or prosecute any alcohol or drug abuse patient.[facility]imaIn the event this information is protected by the Federal Confidentiality of Alcohol and Drug Abuse Patient Records regulations: The Federal rules restrict any use of the information to criminally investigate or prosecute any alcohol or drug abuse patient.[facility]imaIn the event this information is protected by the Federal Confidentiality of Alcohol and Drug Abuse Patient Records regulations: The Federal rules restrict any use of the information to criminally investigate or prosecute any alcohol or drug abuse patient.[facility]imaIn the event this information is protected by the Federal Confidentiality of Alcohol and Drug Abuse Patient Records regulations: The Federal rules restrict any use of the information to criminally investigate or prosecute any alcohol or drug abuse patient.[facility]imaIn the event this information is protected by the Federal Confidentiality of Alcohol and Drug Abuse Patient Records regulations: The Federal rules restrict any use of the information to criminally investigate or prosecute any alcohol or drug abuse patient.[facility]imaIn the event this information is protected by the Federal Confidentiality of Alcohol and Drug Abuse Patient Records regulations: The Federal rules restrict any use of the information to criminally investigate or prosecute any alcohol or drug abuse patient.[facility]imaIn the event this information is protected by the Federal Confidentiality of Alcohol and Drug Abuse Patient Records regulations: The Federal rules restrict any use of the information to criminally investigate or prosecute any alcohol or drug abuse patient.[facility]imaIn the event this information is protected by the Federal Confidentiality of Alcohol and Drug Abuse Patient Records regulations: The Federal rules restrict any use of the information to criminally investigate or prosecute any alcohol or drug abuse patient.[facility]imaIn the event this information is protected by the Federal Confidentiality of Alcohol and Drug Abuse Patient Records regulations: The Federal rules restrict any use of the information to criminally investigate or prosecute any alcohol or drug abuse patient.[facility]imaIn the event this information is protected by the Federal Confidentiality of Alcohol and Drug Abuse Patient Records regulations: The Federal rules restrict any use of the information to criminally investigate or prosecute any alcohol or drug abuse patient.[facility]imaIn the event this information is protected by the Federal Confidentiality of Alcohol and Drug Abuse Patient Records regulations: The Federal rules restrict any use of the information to criminally investigate or prosecute any alcohol or drug abuse patient.[facility]imaIn the event this information is protected by the Federal Confidentiality of Alcohol and Drug Abuse Patient Records regulations: The Federal rules restrict any use of the information to criminally investigate or prosecute any alcohol or drug abuse patient.[facility]imaIn the event this information is protected by the Federal Confidentiality of Alcohol and Drug Abuse Patient Records regulations: The Federal rules restrict any use of the information to criminally investigate or prosecute any alcohol or drug abuse patient.[facility]imaIn the event this information is protected by the Federal Confidentiality of Alcohol and Drug Abuse Patient Records regulations: The Federal rules restrict any use of the information to criminally investigate or prosecute any alcohol or drug abuse patient.[facility]imaIn the event this information is protected by the Federal Confidentiality of Alcohol and Drug Abuse Patient Records regulations: The Federal rules restrict any use of the information to criminally investigate or prosecute any alcohol or drug abuse patient.[facility]imaIn the event this information is protected by the Federal Confidentiality of Alcohol and Drug Abuse Patient Records regulations: The Federal rules restrict any use of the information to criminally investigate or prosecute any alcohol or drug abuse patient.[facility]imaIn the event this information is protected by the Federal Confidentiality of Alcohol and Drug Abuse Patient Records regulations: The Federal rules restrict any use of the information to criminally investigate or prosecute any alcohol or drug abuse patient.[facility]imaIn the event this information is protected by the Federal Confidentiality of Alcohol and Drug Abuse Patient Records regulations: The Federal rules restrict any use of the information to criminally investigate or prosecute any alcohol or drug abuse patient.[facility]imaIn the event this information is protected by the Federal Confidentiality of Alcohol and Drug Abuse Patient Records regulations: The Federal rules restrict any use of the information to criminally investigate or prosecute any alcohol or drug abuse patient.[facility]imaIn the event this information is protected by the Federal Confidentiality of Alcohol and Drug Abuse Patient Records regulations: The Federal rules restrict any use of the information to criminally investigate or prosecute any alcohol or drug abuse patient.[facility]imaIn the event this information is protected by the Federal Confidentiality of Alcohol and Drug Abuse Patient Records regulations: The Federal rules restrict any use of the information to criminally investigate or prosecute any alcohol or drug abuse patient.[facility]imaIn the event this information is protected by the Federal Confidentiality of Alcohol and Drug Abuse Patient Records regulations: The Federal rules restrict any use of the information to criminally investigate or prosecute any alcohol or drug abuse patient.[facility]imaIn the event this information is protected by the Federal Confidentiality of Alcohol and Drug Abuse Patient Records regulations: The Federal rules restrict any use of the information to criminally investigate or prosecute any alcohol or drug abuse patient.[facility]imaIn the event this information is protected by the Federal Confidentiality of Alcohol and Drug Abuse Patient Records regulations: The Federal rules restrict any use of the information to criminally investigate or prosecute any alcohol or drug abuse patient.[facility]imaIn the event this information is protected by the Federal Confidentiality of Alcohol and Drug Abuse Patient Records regulations: The Federal rules restrict any use of the information to criminally investigate or prosecute any alcohol or drug abuse patient.[facility]imaIn the event this information is protected by the Federal Confidentiality of Alcohol and Drug Abuse Patient Records regulations: The Federal rules restrict any use of the information to criminally investigate or prosecute any alcohol or drug abuse patient.[facility]imaIn the event this information is protected by the Federal Confidentiality of Alcohol and Drug Abuse Patient Records regulations: The Federal rules restrict any use of the information to criminally investigate or prosecute any alcohol or drug abuse patient.[facility]imaIn the event this information is protected by the Federal Confidentiality of Alcohol and Drug Abuse Patient Records regulations: The Federal rules restrict any use of the information to criminally investigate or prosecute any alcohol or drug abuse patient.[facility]imaIn the event this information is protected by the Federal Confidentiality of Alcohol and Drug Abuse Patient Records regulations: The Federal rules restrict any use of the information to criminally investigate or prosecute any alcohol or drug abuse patient.[facility]imaIn the event this information is protected by the Federal Confidentiality of Alcohol and Drug Abuse Patient Records regulations: The Federal rules restrict any use of the information to criminally investigate or prosecute any alcohol or drug abuse patient.[facility] Reason for Visit (unrecogniz ed section and content) Reason Comments Referral Request Reason Comments Spirometry Specialty Diagnoses / Procedures Referred By Contac t Referred To Contact [facility] Diagnoses Moderate persistent asthma without complication Procedures SPIROMETRY BASELINE ONLY SPMTRY W/VC EXPIRATORY JEWEL W/WO MXML VOL VNTJ Jamilah Galvan PA-C [address] [place] [address] [address] Referral ID Status Reason Start Date Expiration Date V isits Requested Visits Authorized [id number] Closed Auto-Generate d Referral 07/17/2021 08/16/2022 1 1 Specialty Diagnoses / Procedures Referred By Contac t Referred To Contact [facility] [place] Diagnoses Moderate persistent asthma without complication Procedures NITRIC OXIDE, EXHALED NITRIC OXIDE GAS DETERMINATION Jamilah Galvan PA-C [address] [place] [address] [address] Referral ID Status Reason Start Date Expiration Date V isits Requested Visits Authorized [id number] Closed Auto-Generate d Referral 07/17/2021 08/16/2022 1 1 Reason Comments Established Patient 6 month follow up as thma Reason Comments Recheck Reason Comments Patient Update Reason Onset Date Comments Transition Of Care 04/09/2022 Reason Comments Hospital F/U [facility] Reason Comments Follow Up Reason Comments Patient Question Reason Comments Medication Problem Breo Reason Onset Date Comments Refill Request 06/28/2022 Reason Comments New Patient Evaluation Specialty Diagnoses / Procedures Referred By Contac t Referred To Contact Diagnoses Bipolar affective disorder, remission status unspecified (HCC) Procedures CONSULT TO PSYCHIATRY OFFICE/OUTPATIENT NEW HIGH MDM 60-74 MINUTES Older, Joanna, [employer] [address] [place] [address] Referral ID Status Reason Start Date Expiration Date Visits Requested Visits Authorized [id number] Pending Review PCP Requested Referral 06/01/2022 06/01/2023 1 1 Reason Comments Established Patient 6 month follow up Asthma Specialty Diagnoses / Procedures Referred By Contac t Referred [facility] Diagnoses SOB (shortness of breath) Procedures SPIROMETRY BASELINE ONLY SPMTRY W/VC EXPIRATORY JEWEL W/WO MXML VOL VNTTalia Francois MD [address] [place] [address] Respiratory [place] [address] [place] [address] Referral ID Status Reason Start Date Expiration Date V isits Requested Visits Authorized [id number] Closed Auto-Generate d Referral 07/19/2022 08/18/2023 1 1 Reason Comments Follow Up Specialty Diagnoses / Procedures Referred By Contac t Referred To Contact Psychiatry / ADULT PSYCHIATRY Diagnoses Follow up Procedures VIDEO PSYC/PSYL EST Claude, Joanna, [employer] [address] [place] [address] Seda Quiroz, [employer] [address] [place] [address] Referral ID Status Reason Start Date Expiration Date V isits Requested Visits Authorized [id number] Pending Review 08/23/2022 05/05/2023 30 30 Reason Comments Results Reason Comments Letter Reason Comments Established Patient Diabetic Foot Care Reason Comments Refill Request Reason Comments Express Care follow-up Reason Onset Date Comments Refill Request 03/09/2023 Specialty Diagnoses / Procedures Referred By Contac t Referred To Contact Psychiatry / ADULT PSYCHIATRY Diagnoses FOLLOW UP Procedures EST PSYC ADULT Jericho Tinoco MD [address] [place] [address] Seda Quiroz, [employer] [address] [place] [address] Referral ID Status Reason Start Date Expiration Date V isits Requested Visits Authorized [id number] Pending Review 04/02/2023 07/01/2023 1 1 Care Teams (unrecognized sec tion and content) Milieu Technician Relationship Specialty Start Date End Date Jericho Tinoco MD [address] [facility] [place] [address] PCP - General Internal Medicine 05/26/15 Milieu Technician Relationship Specialty Start Date End Date Jericho Tinoco MD [address] [facility] [place] [address] PCP - General Internal Medicine 05/26/15 Milieu Technician Relationship Specialty Start Date End Date Jericho Tinoco MD [facility] [facility] [place] [address] PCP - General Internal Medicine 05/26/15 Milieu Technician Relationship Specialty Start Date End Date Jericho Tinoco MD [facility] [place] [address] PCP - General Internal Medicine 05/26/15 Milieu Technician Relationship Specialty Start Date End Date Jericoh Tinoco MD [address] [facility] [place] [address] PCP - General Internal Medicine 05/26/15 Milieu Technician Relationship Specialty Start Date End Date Jericho Tinoco MD [address] [facility] [place] [address] PCP - General Internal Medicine 05/26/15 Milieu Technician Relationship Specialty Start Date End Date Jericho Tinoco MD [facility] [place] [address] PCP - General Internal Medicine 05/26/15 Milieu Technician Relationship Specialty Start Date End Date Jericho Tinoco MD [facility] [place] [address] PCP - General Internal Medicine 05/26/15 Milieu Technician Relationship Specialty Start Date End Date Jericho Tinoco MD [address] [facility] [place] [address] PCP - General Internal Medicine 05/26/15 Milieu Technician Relationship Specialty Start Date End Date Jericho Tinoco MD [address] [facility] [place] [address] PCP - General Internal Medicine 05/26/15 Milieu Technician Relationship Specialty Start Date End Date Jericho Tinoco MD [address] [facility] [place] [address] PCP - General Internal Medicine 05/26/15 Milieu Technician Relationship Specialty Start Date End Date Jericho Tinoco MD [address] [facility] [place] [address] PCP - General Internal Medicine 05/26/15 Milieu Technician Relationship Specialty Start Date End Date Jericho Tinoco MD [address] [facility] [place] [address] PCP - General Internal Medicine 05/26/15 Milieu Technician Relationship Specialty Start Date End Date Jericho Tinoco MD [address] [facility] [place] [address] PCP - General Internal Medicine 05/26/15 Milieu Technician Relationship Specialty Start Date End Date Jericho Tinoco MD [address] [facility] [place] [address] PCP - General Internal Medicine 05/26/15 Milieu Technician Relationship Specialty Start Date End Date Jericho Tinoco MD [address] [facility] [place] [address] PCP - General Internal Medicine 05/26/15 Milieu Technician Relationship Specialty Start Date End Date Jericho Tinoco MD [address] [facility] [place] [address] PCP - General Internal Medicine 05/26/15 Milieu Technician Relationship Specialty Start Date End Date Jericho Tinoco MD [address] [facility] [place] [address] PCP - General Internal Medicine 05/26/15 Milieu Technician Relationship Specialty Start Date End Date Jerciho Tinoco MD [address] [facility] [place] [address] PCP - General Internal Medicine 05/26/15 Milieu Technician Relationship Specialty Start Date End Date Jericho Tinoco MD [address] [facility] [place] [address] PCP - General Internal Medicine 05/26/15 Milieu Technician Relationship Specialty Start Date End Date Jericho Tinoco MD [address] [facility] [place] [address] PCP - General Internal Medicine 05/26/15 Milieu Technician Relationship Specialty Start Date End Date Jericho Tinoco MD [address] [facility] [place] [address] PCP - General Internal Medicine 05/26/15 Milieu Technician Relationship Specialty Start Date End Date Jericho Tinoco MD [address] [facility] [address] PCP - General Internal Medicine 05/26/15 Milieu Technician Relationship Specialty Start Date End Date Jericho Tinoco MD [address] [facility] [address] PCP - General Internal Medicine 05/26/15 Milieu Technician Relationship Specialty Start Date End Date Jericho Tinoco MD [address] [place] [address] PCP - General Internal Medicine 05/26/15 Milieu Technician Relationship Specialty Start Date End Date Jericho Tinoco MD [address] [place] [address] PCP - General Internal Medicine 05/26/15 Milieu Technician Relationship Specialty Start Date End Date Jericho Tinoco MD [address] [place] [address] PCP - General Internal Medicine 05/26/15 Milieu Technician Relationship Specialty Start Date End Date Jericho Tinoco MD [address] [place] [address] PCP - General Internal Medicine 05/26/15 Milieu Technician Relationship Specialty Start Date End Date Jericho Tinoco MD [address] [place] [address] PCP - General Internal Medicine 05/26/15 Milieu Technician Relationship Specialty Start Date End Date Jericho Tinoco MD [address] [place] [address] PCP - General Internal Medicine 05/26/15 Care Team (unrecognized sect ion and content) Care Team Personnel Name: JERICHO TINOCO MD Member Role: Primary Care Physician Address: Address: [address] [place] [address]- [place] Name: ROBIN RIGGS MD Position: ED Physician Member Role: ED Physician Address: Address: [address] [place] [address]- [place] Name: [id number] Padilla Position: ED RN Member Role: ED RN Care Team Related Persons Name: AARON FLORES Care Team Personnel Name: JERICHO TINOCO MD Member Role: Primary Care Physician Address: Address: [facility] [place] [address]- Care Team Related Persons Name: AARON FLORES [...] BE BASED ON THE PRIMARY CLINICAL RECORDS. [employer] provides no warranty or guarantee of the accuracy or completeness of information in this document.
--- NOTE | 2023-05-31 01:50 | RAD_ITS ---
INDICATION: sob EXAMINATION/TECHNIQUE: X-RAY - XR Chest 1 View AP portable. 1:50 AM COMPARISON: Chest x-ray 05/21/2023 FINDINGS: LINES/DEVICES: None. LUNGS: Diffuse alveolar infiltrates throughout both lungs more pronounced at the lung bases, new compared to prior chest x-ray. No consolidation. No pneumothorax. MEDIASTINUM: Unremarkable. CARDIAC SILHOUETTE: Not enlarged. BONES AND SOFT TISSUES: No acute abnormalities. Surgical hardware in the cervical spine. RAD/Chest 1 View (Portable) IMPRESSION: Bilateral airspace disease pneumonia versus edema. Electronically Signed: Rita Ramsay MD at 2:11 EST ,
[2023-05-31 01:55] LABS: Allen Test Positive; Base Excess 7 mmol/L (-2 to +2); Blood Gas Specimen Type ART; Comment 14/8 12 60%; Mode Not entered; O2 Delivery Device BiPAP; PO2 62 mmHG (75-100); SITE L Radial; SO2 92 % (95-99); Total Carbon Dioxide 32 mmol/L; pCO2 44.9 mmHg (35-45); pH 7.45 (7.35-7.45)
[2023-05-31] MEDS: Albuterol 2.5 MG/3 ML VIAL.NEB. INHALATION ×2 (02:00→02:12)
[2023-05-31 02:01] LABS: Eosinophil 1 % (0-5); Lymphocyte 21 % (19-41); Metamyelocyte 5 % (0-1); Monocyte 2 % (0-10); Myelocyte 2 % (0-0); Neutrophil-Band 1 % (0-5); Neutrophil-Segmented 68 % (47-70); Total Cells Counted 100 (MANUAL DIFF)
[2023-05-31 02:02] LABS: Nucleated Red Bld Cells,Manual 3 % (0-5)
[2023-05-31 02:03] LABS: Absolute Neutrophil Count 6.3 X10^3/uL (2.0-7.7); Neutrophil # 6.35 X10^3/uL (2.7-7.7)
[2023-05-31 02:04] LABS: Absolute Lymphocyte Count 1.75 X10^3/uL (0.83-4.51); Lymphocyte # 1.75 X10^3/ul (0.83-4.51); Platelet Estimate ADEQUATE (ADEQ); Red Cell Morphology NORM C+C NORMAL (NORM C&C)
[2023-05-31 02:12] LABS: Anion Gap 4 (5-15); BUN 22 mg/dL (7-18); BUN/Creat Ratio 16.3 RATIO (10-20); Calcium,Total 8.1 mg/dL (8.5-10.1); Chloride 101 mmol/L (98-107); Creatinine, Serum 1.35 mg/dL (0.55-1.02); EST Glomerular Filtration Rate 43 mL/min (>60); Est Glom Filt Rate - Afr Amer 52 mL/min (>60); Glucose 157 mg/dL (74-106); Potassium 3.4 mmol/L (3.5-5.1); Sodium Level 134 mmol/L (136-145); Troponin-I HS 9 pg/mL (3.0-54.0)
--- NOTE | 2023-05-31 02:15 | CPS ---
x2 Albuterol given to pt. in ER as well
[2023-05-31 02:25] LABS: BNP,B-Type NATRIURETIC PEPTIDE 44.8 pg/mL (0-100)
--- NOTE | 2023-05-31 02:29 | PCM.HP.STD ---
HPI - General General Date of Admission: 05/31/23 Date of Service: 05/31/23 Chief Complaint: Dyspnea, hypoxia. HPI Narrative The patient is a 58 y/o F w/ PMHx: Hx VF cardiac arrest, Tobacco use, COPD/Asthma, CKD stage IIIb, CAD s/p PCI, HTN, HLD, Morbid obesity, Rheumatoid arthritis, JOSE on CPAP, Chronic anemia, Chronic pain syndrome, GERD, Anxiety and Depression/Bipolar disorder, recent discharge 05/29/2023 following evaluation and treatment since 05/21/2023 for acute hypoxic respiratory failure secondary to COVID pneumonia and possible superimposed bacterial pneumonia with a COPD exacerbation concurrently in addition to hypovolemic hyponatremia and EDWIN on CKD stage IIIb who now represents to the [facility] ED on 05/31/2023 with worsening severe dyspnea since her discharge initially discharged home on 6 L nasal cannula and noted to be 88% with worsening fatigue, chest tightness and ongoing persistent cough all of which is not new but given significant worsening dyspnea prompted EMS call who placed her on a nonrebreather with oxygenation improvement to 90% prompting eventual ED transition. She notes did not fill any of her medications at discharge as she had not had time to obtain them including her steroid or antibiotic therapy. She states she did not start smoking again. In the ED given severity of presentation patient transitioned to BiPAP with nebulizer treatments. From review of records patient recommendation for SNF but refused but amenable to HHC only. Work-up in the ED included T98.7, heart rate 88, BP 101/50, respiratory rate 17, 94% on nonrebreather 15 L transition to BiPAP, CBC with WBC 8.4, hemoglobin 10.9, MCV 96.7, platelet 198 without differential, ABG with pH 7.45, bicarb 31, O2 saturation 92%, pCO2 44.9, pO2 62 obtained on BiPAP 14/8, 12, 60%, BMP with sodium 134, potassium 3.4, BUN/creatinine 22/1.35, glucose 157, troponin 9, BNP 44.8, chest x-ray with bilateral airspace disease pneumonia versus edema. In the ED patient administered DuoNeb therapy and albuterol therapies. [facility] Medical History Anxiety and depression Atherosclerotic heart disease of [place] coronary artery without angina pectoris Back pain Bipolar disorder Cardiac arrest with ventricular fibrillation Cardiomyopathy Coronary artery disease CPAP (continuous positive airway pressure) dependence Degeneration of intervertebral disc of lumbosacral region Diabetes mellitus, type II Essential hypertension Hiatal hernia HLD (hyperlipidemia) Hypertension Lumbar facet arthropathy Lumbosacral spondylosis Migraines Obesity (BMI 30-39.9) Osteoarthritis Post-menopausal Presence of stent in coronary artery (~05/17/22) Seizures Sleep apnea Smoker ST elevation (STEMI) myocardial infarction Home Medications nitroglycerin 0.4 mg sublingual tablet 0.4 mg sublingual Q5M PRN CHEST PAIN #30 tabs 04/06/22 [Rx Last Taken Unknown] escitalopram oxalate 20 mg tablet 30 mg PO DAILY DEPRESSION 05/08/22 [History Last Taken 05/17/22] pregabalin 75 mg capsule 75 mg PO BID PAIN 05/08/22 [History Last Taken 05/17/22] aspirin 81 mg tablet,delayed release 81 mg PO DAILY@0800 HEART HEALTH #90 tabs 06/05/22 [Rx Last Taken 05/20/23] atorvastatin 40 mg tablet 40 mg PO QHS CHOLESTEROL #90 tabs 06/05/22 [Rx Last Taken 05/20/23] carvedilol 6.25 mg tablet 6.25 mg PO BID HEART #180 tabs 06/05/22 [Rx Last Taken 05/21/23] methotrexate sodium 2.5 mg tablet 15 mg PO QWEEK RHEUMATOID ARTHRITIS 06/05/22 [History Last Taken Unknown] zolpidem 10 mg tablet (Ambien) 10 mg PO QHS PRN SLEEP 08/29/22 [History Last Taken 05/20/23] albuterol sulfate 90 mcg/actuation aerosol inhaler 2 puff inhalation Q4H PRN SHORTNESS OF BREATH/WHEEZING 05/21/23 [History Last Taken 05/21/23] alprazolam 0.5 mg tablet 0.5 mg PO BID PRN ANXIETY 05/21/23 [History Last Taken 05/20/23] buprenorphine 20 mcg/hour weekly transdermal patch 1 patch transdermal TH SEVERE PAIN 05/21/23 [History Last Taken 05/16/23] clopidogrel 75 mg tablet 75 mg PO DAILY BLOOD THINNER 05/21/23 [History Last Taken 05/19/23] diclofenac sodium 1 % topical gel 2 g topical 4X/DAY PRN PAIN 05/21/23 [History Last Taken 05/20/23] fluticasone furoate 200 mcg-vilanterol 25 mcg/dose inhalation powder (Breo Ellipta) 1 inh inhalation DAILY ASTHMA 05/21/23 [History Last Taken Unknown] lansoprazole 30 mg capsule,delayed release 30 mg PO DAILY ACID REFLUX 05/21/23 [History Last Taken 05/20/23] lidocaine 5 % topical ointment 1 applic topical 4X/DAY PRN PAIN 05/21/23 [History Last Taken Unknown] valbenazine 80 mg capsule (Ingrezza) 80 mg PO DAILY tardive dyskinesia 05/21/23 [History Last Taken 05/20/23] losartan 50 mg tablet 50 mg PO DAILY blood pressure 05/26/23 [History Last Taken Unknown] cefdinir 300 mg capsule 300 mg PO BID #14 caps 05/28/23 [Rx Last Taken Unknown] dexamethasone 6 mg tablet 6 mg PO DAILY #7 tabs 05/28/23 [Rx Last Taken Unknown] amitriptyline 75 mg tablet 75 mg PO QHS 05/31/23 [History Last Taken Unknown] lamotrigine 200 mg tablet See Rx Instructions PO .COMPLEX 05/31/23 [History Last Taken Unknown] Allergy/AdvReac Type Severity Reaction Status Date / Time tramadol HCl [From Ultram] Allergy Rash Verified 05/31/23 01:20 cariprazine [From Vraylar] AdvReac Other Verified 05/31/23 01:20 codeine AdvReac Vomiting Verified 05/31/23 01:20 hydromorphone [From Dilaudid] AdvReac Nausea/Vom/ Verified 05/31/23 01:20 Diarrhea oxycodone HCl [From Percocet] AdvReac Vomiting Verified 05/31/23 01:20 quetiapine [From Seroquel] AdvReac Other Verified 05/31/23 01:20 Family History (Updated 05/31/23 @ 03:[address] Coby Gray MD) Father CHF (congestive heart failure) Cardiomyopathy Heart disease Hypertension Cardiac arrest with ventricular fibrillation Mother CVA (cerebral vascular accident) Diabetes Surgical History History of back surgery History of carpal tunnel surgery Hx of knee surgery Hx of neck surgery Presence of coronary angioplasty implant and graft (~05/17/22) Social History household members: significant other Smoking Status: Current every day smoker tobacco type: cigarettes Smoking packs per day: 0.5 Smoking cigarettes per day: 10.0 alcohol intake: never substance use type: does not use caffeine: Yes Type: carbonated beverages Number of servings: 1 ROS ROS Narrative Admission Review of Systems: CONSTITUTIONAL: No weight loss, fever, chills, + weakness or fatigue. HEENT: Eyes: No visual loss, blurred vision, double vision or yellow sclerae. Ears, Nose, Throat: No hearing loss, sneezing, congestion, runny nose or sore throat. SKIN: No rash or itching, lesions, wounds. CARDIOVASCULAR: + Chest tightness. No palpitations, orthopnea, syncopal events. RESPIRATORY: + Shortness of breath, cough without marked sputum, wheezing. No hemoptysis. GASTROINTESTINAL: + Anorexia. No nausea, vomiting or diarrhea, abdominal pain, melena, BRBPR. GENITOURINARY: No dysuria, frequency, urgency or retention. NEUROLOGICAL: + Headaches. No dizziness, syncope, paralysis, ataxia, numbness or tingling in the extremities, focal weakness, change in bowel or bladder control, seizure. MUSCULOSKELETAL: + muscle, back pain, joint pain or stiffness. HEMATOLOGIC: + Chronic anemia. No current bleeding or easy bruising. LYMPHATICS: No enlarged nodes. No history of splenectomy. PSYCHIATRIC: + history of depression and anxiety. ENDOCRINOLOGIC: No reports of sweating, cold or heat intolerance. No polyuria or polydipsia. ALLERGIES: + history of asthma, rhinitis. Vital Signs Vital Signs Vital Signs: 05/31/23 01:15 05/31/23 01:21 05/31/23 01:35 Temperature 98.7 F Temperature Source Temporal Pulse Rate 88 Respiratory Rate 17 Respiratory Effort Short of Breath Accessory Muscle Use Respiratory Depth Deep Respiratory Pattern Tachypnea Blood Pressure 101/50 L Blood Pressure Mean 67 Pulse Ox 94 Oxygen Delivery Method Non-Rebreather High Flow Bi-pap Oxygen Flow Rate (L/min) 15 11 Fraction of Inspired Oxygen (FIO2) 05/31/23 01:32 05/31/23 01:38 Temperature Temperature Source Pulse Rate 78 76 Respiratory Rate 17 31 H Respiratory Effort Respiratory Depth Respiratory Pattern Normal Tachypnea Blood Pressure Blood Pressure Mean Pulse Ox 94 Oxygen Delivery Method Oxygen Flow Rate (L/min) Fraction of Inspired Oxygen (FIO2) 60 Weight Weight: 265 lb 10.512 oz Body Mass Index (BMI) 50.1 Physical Exam Narrative Physical Examination: General: Awake, alert, oriented to self, place and recent events, cooperative, seated upright in the ED bed, fatigued, respiratory distress improving, BiPAP in place, still increased work of breathing accessory muscle usage. Skin: Normal color, normal turgor, no icterus, no cyanosis except for occasional staged ecchymoses likely with recent IVs and lab draws. HEENT: AT/NC, EOMI, PERRLA, dry MM, BiPAP in place, difficult to discern carotid bruit given referred sound, difficult to discern JVD given thickened neck. Lungs: Diminished, greater bases, diffuse expiratory wheezing, tachypneic, increased work of breathing and accessory muscle usage, respiratory distress is improving with BiPAP currently in place, no obvious rales or notable rhonchi. Heart: Regular rate with regular rhythm; no gallop, rub audible. Abdomen: Soft, morbidly obese, NTTP, distant BS, difficult to discern distention and HSM given habitus. Extremities: No cyanosis, clubbing, or edema. Neurological: Patient awake, alert, oriented as noted, cognitive function near baseline, pupils equally reactive to light and accommodation, cranial nerves grossly normal, moving all 4 extremities, no focal deficits, strength severely global decrease secondary to acute presentation. Psychiatric: Affect appears flat, fatigued, respiratory distress is improving, no acute evidence of depressive or anxiety feelings but does have underlying history. Results Lab / Micro Data 05/31/23 01:30 05/31/23 01:30 Labs: Laboratory Results - last 24 hr 05/31/23 01:30: WBC 8.4, RBC 3.29 L, Hgb 10.9 L, Hct 31.8 L, MCV 96.7, MCH 33.1 H, MCHC 34.3, RDW Std Deviation 52.8 H, RDW Coeff of Erlinda 15.0 H, Plt Count 198, MPV 11.1, Neut % (Auto) Not Reportable, Absolute Neuts (auto) 6.3, Absolute Lymphs (auto) 1.75, Total Counted 100, Neutrophils % (Manual) 68, Band Neutrophils % 1, Lymphocytes % (Manual) 21, Monocytes % (Manual) 2, Eosinophils % (Manual) 1, Metamyelocytes % 5 H, Myelocytes % 2 H, Nucleated RBCs/100 WBC 3, Diff Path Review September, Platelet Estimate ADEQUATE, RBC Morphology NORM C+C, Sodium 134 L, Potassium 3.4 L, Chloride 101, Carbon Dioxide 29.0, Anion Gap 4 L, BUN 22 H, Creatinine 1.35 H, Estim Creat Clear Calc 55.80, Est GFR (MDRD) Af Amer 52 L, Est GFR (MDRD) Non-Af 43 L, BUN/Creatinine Ratio 16.3, Glucose 157 H, Calcium 8.1 L, Troponin I High Sens 9, B-Natriuretic Peptide 44.8 ABG Data ABG results: ABG 05/31/23 01:52 Specimen Type ART Sample Site L Radial pH 7.45 Bicarbonate Actual 31.0 H Total CO2 32 Base Excess 7 H O2 Saturation 92 L O2 % 60.0 ABG pCO2 44.9 ABG pO2 62 L Teddy Test Positive O2 Delivery Device BiPAP Vent Mode Not entered Clinical Comments 17/12 12 60% Imagaing Radiology Impression Chest X-Ray 05/31/23 01:50 IMPRESSION: Bilateral airspace disease pneumonia versus edema. Electronically Signed: Rita Ramsay MD at 2:11 EST , Assessment & Plan Assessment/Plan (1) Acute hypoxemic respiratory failure: PLAN: Plan The patient is a 58 y/o F w/ PMHx: Hx VF cardiac arrest, Tobacco use, COPD/Asthma, CKD stage IIIb, CAD s/p PCI, HTN, HLD, Morbid obesity, Rheumatoid arthritis, JOSE on CPAP, Chronic anemia, Chronic pain syndrome, GERD, Anxiety and Depression/Bipolar disorder, recent discharge 05/29/2023 following evaluation and treatment since 05/21/2023 for acute hypoxic respiratory failure secondary to COVID pneumonia and possible superimposed bacterial pneumonia with a COPD exacerbation concurrently in addition to hypovolemic hyponatremia and EDWIN on CKD stage IIIb who now represents to the [facility] ED on 05/31/2023 with worsening severe dyspnea since her discharge initially discharged home on 6 L nasal cannula and noted to be 88% with worsening fatigue, chest tightness and ongoing persistent cough all of which is not new but given significant worsening dyspnea prompted EMS call who placed her on a nonrebreather with oxygenation improvement to 90% prompting eventual ED transition. #1. Acute Hypoxic Respiratory Failure, Recurrent with Recent COVID PNA, Superimposed bacterial PNA and Acute on Chronic COPD Exacerbation, worsened since recent discharge: Will admit to the ICU, continue BIPAP placement, consult [employer] team, continue ATC duonebs, PRN albuterol, recent urine antigens negative/resp panel negative but no sputum Cx obtained prior, will attempt to obtain sputum and will place back on IV Zosyn with MRSA screen with addition of Vancomycin if positive pending sputum Cx given worsened status, continue decadron regimen, HOB, IS parameters, PT/OT/CM consulted. Recent presentation of note also with VQ scan and CTA that demonstrated no PE but bilateral groundglass opacities consistent with COVID-pneumonia. Given representation patient absolutely should go to a skilled facility at this point as likely returning to home would be high risk for recurrent respiratory distress. #2. Hypokalemia: Admission K+ 3.4, magnesium level requested, supplementation given, repeat level in AM. #3. Chronic Kidney Disease Stage IIIb with recent EDWIN during prior presentation, resolved: Admission BUN/Cr 22/1.35, baseline renal function 0.9-1.2, recent acute kidney injury with creatinine rise 05/21/2023 up to 2.34 but improved, repeat BMP in AM. #4. Chronic anemia: Admission hemoglobin 10.9, MCV 96.7, baseline hemoglobin 10-11, will continue to trend. #5. CAD, history of V-fib cardiac arrest: s/p YADIEL Prox LAD and YADIEL distal RCA into RPDA with Dr. Savage 05/17/22, will continue aspirin, Plavix, statin therapy, Coreg, losartan home regimen. #6. Hypertension: Continue home regimen including Coreg, losartan, PRN hydralazine. #7. Hyperlipidemia: We will continue patient on statin therapy. #8. Anxiety and depression/bipolar disorder: We will continue patient home escitalopram, alprazolam home regimen. Will also continue patient home Ingrezza for tardive dyskinesia. #9. Chronic pain syndrome: Patient with chronic back pain with history of back injections, continue chronic buprenorphine regimen, encourage positional changes, PT/OT/CM consulted for discharge planning. #10. Rheumatoid arthritis: Patient chronically on methotrexate and although no folic acid listed would assume folic acid ongoing but clarifying, given recent infection this was held. #11. Tobacco Abuse: Encouraged cessation, inpatient consultation per RT, NR if desired. #12. JOSE: Normally uses CPAP nightly but given presentation will place on BiPAP continuously. #13. Morbid Obesity: Weight loss and lifestyle changes encouraged. #14. GERD: We will continue patient on PPI. #15. DVT prophylaxis: Lovenox. #16. CODE status: Patient HCPOA and LW not in place but she notes if she was unable to make medical decisions she would want her brother to makes decisions for her. Discussed CODE status at length including difference between FULL code, DNR-CCA and DNR-CC status. Following discussions about the differences in these status, requested Full Code status. Advanced Care Planning Face to Face Time: 16 minutes. Charges/Coding Visit Charges Inpatient E&M: 53150 Init Hosp L3 Procedures Hospitalists Procedures: [id number] Advncd Care Plan 30 Min
[2023-05-31 03:05] LABS: Magnesium 2.2 mg/dL (1.6-2.6)
--- OUTSIDE RECORDS SUMMARY | 2023-05-31 03:08 | XMS RPT_ITS | CCD ---
Author Name Unknown Address [address] [place] [address] Organization [facility] Care Team Providers Care Merchandise Flow Team Member Name Role Phone Ezequiel CARRANZA, Jericho Prado Primary Care Provider [phone] EZEQUIEL CARRANZA, DR HELM Primary Care Physician Ezequiel CARRANZA, Jericho Prado Primary Care Provider [phone] KARISHMA CARRANZA, ELIECER Dent Attending Unavailab christiano TINOOC MD., DR. HELM Primary Care Leonardo TINOCO [...] [acetaminophen-oxy codone] Drug Allergy 5 GI Upset [facility] (20 sources) cariprazine; Translations: [CARIPRAZINE] Drug Allergy 9 Other: See Comments [facility] (20 sources) Codeine; Translations: [codeine] Drug Allergy 5 Other: See Comments [facility] (20 sources) HYDROmorphone; Translations: [HYDROMORPHONE (BULK)] Drug Allergy 5 GI Upset [facility] (20 sources) QUEtiapine; Translations: [quetiapine] Drug Allergy 9 Other: See Comments [facility] (20 sources) traMADol; Translations: [TRAMADOL HCL] Drug Allergy 5 GI Upset [facility] (2 sources) HYDROmorphone; Translations: [hydromorphone] Drug Allergy [facility] (2 sources) traMADol; Translations: [tramadol] Drug Allergy [facility] Medications Current Medications Medication Drug Class(es) Dates [...] every six hours as needed for pain [place] 325- 5 mg oral tablet Dose = [...] Coronary atherosclerosis; Translations: [Atherosclerotic heart disease of [place] coronary artery without angina pectoris] Onset: 2 [...] (20 sources) Patient encounter status; Translations: [Other house coordinator (current) drug therapy] Onset: 07-01-2022 Episodic Other aftercare (1 source) Other house coordinator (current) drug therapy; Translations: [Encounter for long-term [...] 08:56-0500 Body weight 128.19 kg Seda Rajguru EMERGENCY SPECIALIST.RESEARCH MANAGEMENT ASSOCIATE Work Phone: [facility] 05-14-2023 08:56-0500 Diastolic blood pressure 58 mm[Hg] Seda Rajguru EMERGENCY SPECIALIST.RESEARCH MANAGEMENT ASSOCIATE Work Phone: [facility] 05-14-2023 08:56-0500 Heart rate 80 /min Seda Rajguru EMERGENCY SPECIALIST.RESEARCH MANAGEMENT ASSOCIATE Work Phone: [facility] 05-14-2023 08:56-0500 Systolic blood pressure 122 mm[Hg] Seda Rajguru EMERGENCY SPECIALIST.RESEARCH MANAGEMENT ASSOCIATE Work Phone: [facility] 04-02-2023 13:37-0500 Body weight 126.1 kg Seda Rajguru EMERGENCY SPECIALIST.RESEARCH MANAGEMENT ASSOCIATE Work Phone: [facility] 04-02-2023 13:37-0500 Diastolic blood pressure 66 mm[Hg] Seda Rajguru EMERGENCY SPECIALIST.RESEARCH MANAGEMENT ASSOCIATE Work Phone: [facility] 04-02-2023 13:37-0500 Heart rate 80 /min Seda Rajguru EMERGENCY SPECIALIST.RESEARCH MANAGEMENT ASSOCIATE Work Phone: [facility] 04-02-2023 13:37-0500 Systolic blood pressure 138 mm[Hg] Seda Rajguru EMERGENCY SPECIALIST.RESEARCH MANAGEMENT ASSOCIATE Work Phone: [facility] 03-06-2023 11:02-0400 Body weight 127.87 kg Jericho Tinoco MD Work Phone: [facility] 03-06-2023 11:02-0400 Diastolic blood pressure 60 mm[Hg] Jericho Tinoco MD Work Phone: [facility] 03-06-2023 11:02-0400 Heart rate 64 /min Jericho Tinoco MD Work Phone: [facility] 03-06-2023 11:02-0400 Respiratory rate 20 /min Jericho Tinoco MD Work Phone: [facility] 03-06-2023 11:02-0400 Systolic blood pressure 118 mm[Hg] Jericho Tinoco MD Work Phone: [facility] 01-21-2023 12:56-0400 Body weight 124.29 kg Jamilah Memo PA-C Work Phone: [facility] 01-21-2023 12:56-0400 Diastolic blood pressure 60 mm[Hg] Jamilah Memo PA-C Work Phone: [facility] 01-21-2023 12:56-0400 Heart rate 62 /min Jamilah Memo PA-C Work Phone: [facility] 01-21-2023 12:56-0400 Respiratory rate 15 /min Jamilah Memo PA-C Work Phone: [facility] 01-21-2023 12:56-0400 SaO2% (BldA) [Mass fraction] 97 % Jamilah Memo PA-C Work Phone: [facility] 01-21-2023 12:56-0400 Systolic blood pressure 122 mm[Hg] Jamilah Memo PA-C Work Phone: [facility] 01-15-2023 08:17-0400 Body weight 126.55 kg Seda Rajguru EMERGENCY SPECIALIST.RESEARCH MANAGEMENT ASSOCIATE Work Phone: [facility] 01-15-2023 08:17-0400 Diastolic blood pressure 58 mm[Hg] Seda Rajguru EMERGENCY SPECIALIST.RESEARCH MANAGEMENT ASSOCIATE Work Phone: [facility] 01-15-2023 08:17-0400 Heart rate 76 /min Seda Rajguru EMERGENCY SPECIALIST.RESEARCH MANAGEMENT ASSOCIATE Work Phone: [facility] 01-15-2023 08:17-0400 Systolic blood pressure 132 mm[Hg] Seda Rajguru EMERGENCY SPECIALIST.RESEARCH MANAGEMENT ASSOCIATE Work Phone: [facility] 07-20-2022 15:15-0400 Body height 156.2 cm Pulm Wstr Work Phone: [facility] 07-20-2022 15:15-0400 Body weight 119.75 kg Pulm Wstr Work Phone: [facility] 07-19-2022 14:43-0400 Body weight 119.75 kg Talia Dias MD Work Phone: [facility] 07-19-2022 14:43-0400 Diastolic blood pressure 84 mm[Hg] Talia Dias MD Work Phone: [facility] 07-19-2022 14:43-0400 Heart rate 75 /min Talia Dias MD Work Phone: [facility] 07-19-2022 14:43-0400 Respiratory rate 18 /min Talia Dias MD Work Phone: [facility] 07-19-2022 14:43-0400 SaO2% (BldA) [Mass fraction] 97 % Talia Dias MD Work Phone: [facility] 07-19-2022 14:43-0400 Systolic blood pressure 138 mm[Hg] Talia Dias MD Work Phone: [facility] 06-01-2022 10:40-0500 Body weight 118.84 kg Joanna Older EMERGENCY SPECIALIST.RESEARCH MANAGEMENT ASSOCIATE Work Phone: [facility] 06-01-2022 10:40-0500 Diastolic blood pressure 60 mm[Hg] Joanna Older EMERGENCY SPECIALIST.RESEARCH MANAGEMENT ASSOCIATE Work Phone: [facility] 06-01-2022 10:40-0500 Heart rate 68 /min Joanna Older EMERGENCY SPECIALIST.RESEARCH MANAGEMENT ASSOCIATE Work Phone: [facility] 06-01-2022 10:40-0500 Respiratory rate 20 /min Joanna Older EMERGENCY SPECIALIST.RESEARCH MANAGEMENT ASSOCIATE Work Phone: [facility] 06-01-2022 10:40-0500 SaO2% (BldA) [Mass fraction] 98 % Joanna Older EMERGENCY SPECIALIST.RESEARCH MANAGEMENT ASSOCIATE Work Phone: [facility] 06-01-2022 10:40-0500 Systolic blood pressure 114 mm[Hg] Joanna Older EMERGENCY SPECIALIST.RESEARCH MANAGEMENT ASSOCIATE Work Phone: [facility] 04-11-2022 16:17-0500 Body weight 118.84 kg Jericho Tinoco MD Work Phone: [facility] 04-11-2022 16:17-0500 Diastolic blood pressure 64 mm[Hg] Jericho Tinoco MD Work Phone: [facility] 04-11-2022 16:17-0500 Heart rate 69 /min Jericho Tinoco MD Work Phone: [facility] 04-11-2022 16:17-0500 Respiratory rate 20 /min Jericho Tinoco MD Work Phone: [facility] 04-11-2022 16:17-0500 SaO2% (BldA) [Mass fraction] 98 % Jericho Tinoco MD Work Phone: [facility] 04-11-2022 16:17-0500 Systolic blood pressure 94 mm[Hg] Jericho Tinoco MD Work Phone: [facility] 03-08-2022 15:35-0400 Body temperature 98.42 [degF] ROBIN RIGGS MD [facility] 03-08-2022 15:35-0400 Diastolic blood pressure 82 mm[Hg] ROBIN RIGGS MD [facility] 03-08-2022 15:35-0400 Heart rate 82 /min ROBIN RIGGS MD [facility] 03-08-2022 15:35-0400 Respiratory rate 16 /min ROBIN RIGGS MD [facility] 03-08-2022 15:35-0400 Systolic blood pressure 154 mm[Hg] ROBIN RIGGS MD [facility] 03-01-2022 10:50-0400 Body weight 120.2 kg Jericho Tinoco MD Work Phone: [facility] 03-01-2022 10:50-0400 Diastolic blood pressure 76 mm[Hg] Jericho Tinoco MD Work Phone: [facility] 03-01-2022 10:50-0400 Heart rate 69 /min Jericho Tinoco MD Work Phone: [facility] 03-01-2022 10:50-0400 Respiratory rate 14 /min Jericho Tinoco MD Work Phone: [facility] 03-01-2022 10:50-0400 SaO2% (BldA) [Mass fraction] 98 % Jericho Tinoco MD Work Phone: [facility] 03-01-2022 10:50-0400 Systolic blood pressure 124 mm[Hg] Jericho Tinoco MD Work Phone: [facility] 01-18-2022 13:02-0400 Body height 156.2 cm Jamilah Meom PA-C Work Phone: [facility] 01-18-2022 13:02-0400 Body weight 121.56 kg Jamilah Memo PA-C Work Phone: [facility] 01-18-2022 13:02-0400 Diastolic blood pressure 68 mm[Hg] Jamilah Memo PA-C Work Phone: [facility] 01-18-2022 13:02-0400 Heart rate 62 /min Jamilah Memo PA-C Work Phone: [facility] 01-18-2022 13:02-0400 Respiratory rate 14 /min Jamilah Memo PA-C Work Phone: [facility] 01-18-2022 13:02-0400 SaO2% (BldA) [Mass fraction] 96 % Jamilah Memo PA-C Work Phone: [facility] 01-18-2022 13:02-0400 Systolic blood pressure 122 mm[Hg] Jamilah Memo PA-C Work Phone: [facility] 01-18-2022 12:46-0400 Body height 156.2 cm Respiratory Wstr Work Phone: [facility] 01-18-2022 12:46-0400 Body weight 121.97 kg Respiratory Wstr Work Phone: [facility] 01-18-2022 12:46-0400 Heart rate 62 /min Respiratory Wstr Work Phone: [facility] 01-18-2022 12:46-0400 Respiratory rate 14 /min Respiratory Wstr Work Phone: [facility] 01-18-2022 12:46-0400 SaO2% (BldA) [Mass fraction] 96 % Respiratory Wstr Work Phone: [facility] Encounters Encounter Date Encounter Type Care Provider Facility Start: 05-14-2023 End: 05-15-2023 ambulatory JERICHO TINOOC Facility:[facility] Start: 05-14-2023 End: 05-14-2023 Patient encounter procedure Seda Quiroz APRN.RESEARCH MANAGEMENT ASSOCIATE Work Phone: Psychiatry Procedures Date Procedure Procedure [...] Activity Detail Author Start: 09-03-2027 Colonoscopy COLONOSCOPY [facility] Start: 09-03-2027 COLORECTAL CANCER SCREENING COLORECTAL CANCER SCREENING [facility] Start: 09-03-2027 Screening for malign ant neoplasm of colon [facility] Start: 08-24-2025 Urine microalbumin profile [facility] Start: 04-12-2024 Glaucoma screening Dilated Retinal E xam [facility] Start: 03-15-2024 Mammography Mammogram Screening [facility] Start: 03-15-2024 Screening for malign ant neoplasm of breast Mammogram Screening [facility] Start: 03-06-2024 Annual PCP Team Banking Representative regan Disease Visit Annual PCP Team Chronic Disease Visit [facility] Start: 03-06-2024 Creatinine measurement Serum Creatin ine [facility] Start: 03-06-2024 Hepatitis B screening Urine Al bumin:Creatinine Ratio [facility] Start: 03-06-2024 Serum Creatinine Serum Creatinine Cl [facility] Start: 11-03-2023 Influenza vaccination Influenza Vacc ine (#1) [facility] Immunizations Immunization Date Immunization Notes Care Provider Fa nestor 04-07-2019 influenza, injectabl e, quadrivalent, contains preservative Jmailah Memo PA-C Work Phone: [facility] 04-07-2019 influenza virus vacc ine, unspecified formulation Seda Quiroz APRN.CNP Work Phone: [facility] 02-04-2018 influenza, high dose seasonal, preservative-free Jamilah Memo PA-C Work Phone: [facility] Work Phone: 02-20-2017 influenza, injectabl e, quadrivalent, contains preservative Jmailah Memo PA-C Work Phone: [facility] 03-02-2016 influenza, injectabl e, quadrivalent, contains preservative Jamilah Memo PA-C Work Phone: [facility] 03-02-2016 pneumococcal polysaccharide vaccine, 23 valent Jamilah Memo PA-C Work Phone: [facility] 08-25-2015 tetanus toxoid, redu wayne diphtheria toxoid, and acellular pertussis vaccine, adsorbed Jamilah Galvan PA-C Work Phone: [facility] 05-26-2015 influenza, injectabl e, quadrivalent, contains preservative Jamilah Galvan PA-C Work Phone: [facility] Payers Date Payer Category Payer Medicaid [facility] MEDICAID [employer] [facility] MEDICAID [id number] 2015-Present [phone] [address] [place] [address] Medicaid [id number] 2015 Medicare [id number] 2015 Medicare [facility] MEDICARE [employer] [facility] MEDICARE [id number] 2015-Present [phone] [address] [place] [address] Medicare [id number] 2015 Unknown [id number] 1966 Unknown [id number] 1966 Unknown [id number] Social History Date Type Detail Facility Start: 1981 End: 07-19-2022 Tobacco smoking status NHIS Smokes tobacco daily [facility] Work Phone: Start: 1981 History of tobacco use Cigarette Smo ker [facility] Work Phone: Start: 12-16-2019 End: 09-20-2022 Cigarettes smoked current (pack per day) - Reported 1 [facility] Start: 12-16-2019 End: 07-19-2022 Tobacco use and exposure Smokeless tobacco non-user [facility] Work Phone: Start: 07-17-2021 End: 06-01-2022 Alcohol intake Current drinker of alcohol (finding) [facility] Start: 10-25-2020 History SDOH Alcohol Comment occasional, rarely [facility] Start: 02-22-2020 End: 08-27-2022 History SDOH Financial 5 [facility] Start: 02-22-2020 End: 08-27-2022 History SDOH Food Worry 1 [facility] Start: 02-22-2020 End: 08-27-2022 History SDOH Transport Med 2 [facility] Start: 1965 Sex Assigned At Not on file C [facility] Start: 07-07-2021 End: 01-31-2022 Exposure to SARS-CoV-2 (event) Not sure [facility] Start: 12-02-2021 History SDOH Alcohol Comment rare 1 drink [facility] Start: 12-02-2021 End: 08-27-2022 History SDOH Physical Activity DPW 0 [facility] Start: 12-02-2021 End: 01-18-2022 Tobacco Comment from age 16 [facility] Start: 03-05-2019 Tobacco smoking status Heavy t obacco smoker (finding) [facility] Sex Assigned At Sex [facility] Start: 06-22-2022 End: 04-02-2023 Alcohol intake Ex-drinker (finding) [facility] Start: 07-19-2022 Tobacco Comment from age 16. O ne PPD in past. Cut to 1/2 PPD in April [facility] Start: 08-27-2022 History SDOH Social Connections Phone 3 [facility] Start: 08-27-2022 History SDOH Social Connections Living 8 [facility] Start: 08-27-2022 End: 09-20-2022 Social connection and isolation panel [facility] Do you belong to any clubs or organizations such as orthodox groups, unions, fraternal or athletic groups, or school groups? No [facility] Are you now , , , , never or living with a partner? Living with partner [facility] How often to you hav e a drink containing alcohol? Monthly or less [facility] How many standard dr inks containing alcohol do you have on a typical day? 1 or 2 [facility] How often do you hav e 6 or more drinks on 1 occasion? Never [facility] How hard is it for y ou to pay for the very basics like food, housing, medical care, and heating Not hard at all [facility] Do you feel stress - tense, restless, nervous, or anxious, or unable to sleep at night because your mind is troubled all the time - these days [OSQ] To some extent [facility] (I/We) worried wheth er (my/our) food would run out before (I/we) got money to buy more. Never true [facility] Medical Equipment Procedure Code Equipment Code Equipment Origin al Text Equipment Identifier Dates Spacer Avs 4d 8m m Spinal Bone Plug - [id number] Start: 05-30-2019 Stearns Drill Bit 12mm X 23mm [id number] Start: 05-30-2019 Self Starting Variable Screw Size 4.0mm X 14mm [id number] Start: 05-30-2019 [employer]s Cervical P late 1-Level 22mm [id number] Start: 05-30-2019 Functional Status Date Assessment Result Facility 03-08-2022 Functional Status Standard Safet y ID band on, Call device within reach, Bed in low position, Wheels locked, Upper/Half-Length side-rails up, Bedside Cart Locked, Safety level maintained [facility] Mental Status Date Assessment Result Facility 03-08-2022 Mental Status Orientation Oriented x 4 [facility] Clinical Notes 01-25-2020 to 05-14-2023 Seda Quiroz APRN.CNP - 05/14/2023 9:02 AM Seda Quigley APRN.CNP - 04/02/2023 2:10 PM ESTTelephone Encounter - Michelle Sanchez LPN - 03/19/2023 2:57 PM ESTPatient Instructions Note Date & Type Note Facility 05-14-2023 Note HNO ID: [id number] Author: SEDA QUIROZ APRN.CNP Service: ? Author [...] really hard time sitting in the car. [place] that the car was caving in on [...] of lateral wall (HCC) 04/04/2022 [facility] Cerebellar mass 1995 mass versus infarct [...] 2 diabetes mellitus without complication ([facility]) 03/02/2016 PAST SURGICAL HISTORY Procedure Laterality Date ANTERIOR DISKECTOMY, CERVICAL, EACH ADDL 05/30/2019 ACDF C5-6 - anterior cervical discectomy and arthrodesis ARTHRP KNE CONDYLEANDPLATU MEDIALANDLAT COMPARTMENTS Left 01/14/2018 COLONOSCOPY AND BIOPSY 09/02/2017 Dr. cooney EGPhil 01/23/2021 KNEE ARTHROSCOP MENISCUS REPAIR MED/LAT Left 06/22/2016 partial medial meniscectomy LUMBAR OR CAUDAL EPIDURAL INJECTION 01/2017 multiple since 2014. NEUROPLASTY AND/TRANSPOS MEDIAN NRV CARPAL TUNNE Left 08/30/2009 [facility] PAST SURGICAL HISTORY OF 05/30/2019 C5-[address] Grace Long PT ED HEART AND VASCULAR Cardiac Stent [facility] 11/30/22 S PROBE PERC LUMBAR DISCECTOMY 04/2000 [facility] Current Outpatient Medications Medication Sig [...] 3 escitalopram o (more content not included)... [facility] 05-14-2023 History of Presen t illness [...] really hard time sitting in the car. [place] that the car was caving in on [...] of lateral wall (HCC) 04/04/2022 [facility] Cerebellar mass 1995 mass versus infarct [...] 2 diabetes mellitus without complication ([facility]) 03/02/2016 PAST SURGICAL HISTORY Procedure Laterality Date ANTERIOR DISKECTOMY, CERVICAL, EACH ADDL 05/30/2019 ACDF C5-6 - anterior cervical discectomy and arthrodesis ARTHRP KNE CONDYLE&PLATU MEDIAL&LAT COMPARTMENTS Left 01/14/2018 COLONOSCOPY AND BIOPSY 09/02/2017 Dr. ivet HAGER 01/23/2021 KNEE ARTHROSCOP MENISCUS REPAIR MED/LAT Left 06/22/2016 partial medial meniscectomy LUMBAR OR CAUDAL EPIDURAL INJECTION 01/2017 multiple since 2014. NEUROPLASTY &/TRANSPOS MEDIAN NRV CARPAL TUNNE Left 08/30/2009 [facility] PAST SURGICAL HISTORY OF 05/30/2019 C5-[address] Grace Long PT ED HEART AND VASCULAR Cardiac Stent [facility] 04/04/22 S PROBE PERC LUMBAR DISCECTOMY 04/2000 [facility] Current Outpatient Medications Medication Sig [...] REVIEWED: Psychiatric scales, Electronic medical record, and Supervisor Beet End notes DIAGNOSIS: Bipolar disorder, currently depressed, moderate [...] which included preparing to see the patient, [id number] patient care, completing clinical documentation, obtaining and/or [...] TIME: 9:03 AM documented in this encounter [facility] 04-02-2023 Note HNO ID: [id number] Author: Seda Quiroz APRN.CNP Service: ? Author [...] struggling with shortness of breath. 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 Has been following up with her customer insight analyst. Had to take Nitro due to [...] myocardial infarction of lateral wall ([facility]) 04/04/2022 [facility] Cerebellar mass 1995 mass versus infarct Cervical cord compression with myelopathy ([facility]) 05/28/2019 Depression 04/11/2015 Disc degeneration, lumbar 2000 [...] 2 diabetes mellitus without complication ([facility]) 03/02/2016 PAST SURGICAL HISTORY Procedure Laterality Date ANTERIOR DISKECTOMY, CERVICAL, EACH ADDL 05/30/2019 ACDF C5-6 - anterior cervical discectomy and arthrodesis ARTHRP KNE CONDYLEANDPLATU MEDIALANDLAT COMPARTMENTS Left 01/14/2018 COLONOSCOPY AND BIOPSY 09/02/2017 Dr. cooney EGD 01/23/2021 KNEE ARTHROSCOP MENISCUS REPAIR MED/LAT Left 06/22/2016 partial medial meniscectomy LUMBAR OR CAUDAL EPIDURAL INJECTION 01/2017 multiple since 2014. NEUROPLASTY AND/TRANSPOS MEDIAN NRV CARPAL TUNNE Left 08/30/2009 [facility] PAST SURGICAL HISTORY OF 05/30/2019 C5-[address] Grace Long PT ED HEART AND VASCULAR Cardiac Stent [facility] 04/04/22 S PROBE PERC LUMBAR DISCECTOMY 04/2000 [facility] Current Outpatient Medications Medication Sig [...] 1 tablet by (more content not included)... [facility] 04-02-2023 History of Presen t illness [...] struggling with shortness of breath. 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 Has been following up with her customer insight analyst. Had to take Nitro due to [...] of lateral wall (HCC) 04/04/2022 [facility] Cerebellar mass 1995 mass versus infarct [...] &/TRANSPOS MEDIAN NRV CARPAL TUNNE Left 08/30/2009 [facility] PAST SURGICAL HISTORY OF 05/30/2019 C5-[address] Grace Long PT ED HEART AND VASCULAR Cardiac Stent [facility] 04/04/22 S PROBE PERC LUMBAR DISCECTOMY 04/2000 [facility] Current Outpatient Medications Medication Sig [...] which included preparing to see the patient, [id number] patient care, completing clinical documentation, obtaining and/or [...] TIME: 2:10 PM documented in this encounter [facility] 03-19-2023 Miscellaneous Notes Patient notified [...] for last apt. documented in this encounter [facility] 03-15-2023 Note HNO ID: [id number] Author: Marta Mosqueda RT(R) Service: ? Author [...] RT Arias(R) March 15, 2023 1:24 PM [facility] 03-11-2023 Miscellaneous Notes Patient has been [...] Gricelda Duckworth LPN. documented in this encounter [facility] 03-07-2023 Note HNO ID: [id number] Author: Aron Navarro Service: ? Author Type: [...] RTC in 3-4 months. Aron Navarro DPM [facility] 03-07-2023 Note HNO ID: [id number] Author: Pepper Estrada LPN Service: ? Author Type: LICENSED NURSE Type: Progress Notes Filed: 03/08/2023 10:31 PM Note Text: AMB ROOMING INTAKE FLOWSHEET DATA Patient presents with: Left Foot - Established Patient, Diabetic Foot Care Right Foot - Established Patient, Diabetic Foot Care Pepper Estrada LPN [facility] 03-06-2023 Note HNO ID: [id number] Author: Jericho Tinoco MD Service: ? Author Type: Physician Type: Progress Notes Filed: 03/06/2023 12:34 PM Note Text: This note was created using [employer] Subjective Juan Eagle is a 58 year old female. She's been dealing with right wrist pain for about 2 months, with no injury. She reported taking up to 12 ibuprofen per day. Pain was worse with movement. Bracing helped some. X rays showed no acute findings. Her joints have been hurting more in general. 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 in [place], so had been off Humira for more [...] (Bmi) of 50.0 to 59.9 in Adult ([facility]) Persistent Headaches S/P Cervical Spinal Fusion Tobacco Use Disorder Moderate Persistent Asthma Without Complication Psoriatic Arthritis ([facility]) Irritable Bowel Syndrome With Diarrhea Stage 3a Chronic Kidney Disease ([facility]) Coronary Artery Disease Involving [place] Coronary Artery of [place] Heart Without Angina Pectoris St Elevation Myocardial Infarction Involving Left Circumflex Coronary Artery ([facility]) Ischemic Cardiomyopathy Encounter for Long-Term (Current) Use of Medications Bipolar Disorder ([facility]) Ptsd (Post-Traumatic Stress Disorder) Dyskinesia, Tardive [...] She is aler (more content not included)... [facility] 03-06-2023 History of Presen t illness Narrative This note was created using Claro Scientific[employer]. Subjective Juan Eagle is a 58 year old female. She's been dealing with right wrist pain for about 2 months, with no injury. She reported taking up to 12 ibuprofen per day. Pain was worse with movement. Bracing helped some. X rays showed no acute findings. Her joints have been hurting more in general. 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 in [place], so had been off Humira for more [...] Mellitus With Stage 3a Chronic Kidney Disease ([facility]) Mixed Hyperlipidemia Jose On Cpap Radiculopathy, Lumbar Region Postlaminectomy Syndrome Ddd (Degenerative Disc Disease), Lumbar Edema Class 3 Severe Obesity With Body Mass Index (Bmi) of 50.0 to 59.9 in Adult ([facility]) Persistent Headaches S/P Cervical Spinal Fusion Tobacco Use Disorder Moderate Persistent Asthma Without Complication Psoriatic Arthritis ([facility]) Irritable Bowel Syndrome With Diarrhea Stage 3a Chronic Kidney Disease ([facility]) Coronary Artery Disease Involving [place] Coronary Artery of [place] Heart Without Angina Pectoris St Elevation Myocardial Infarction Involving Left Circumflex Coronary Artery ([facility]) Ischemic Cardiomyopathy Encounter for Long-Term (Current) Use of Medications Bipolar Disorder ([facility]) Ptsd (Post-Traumatic Stress Disorder) Dyskinesia, Tardive [...] Jericho Tinoco MD documented in this encounter [facility] 02-20-2023 Miscellaneous Notes Message to call office. Message to call office. Message to call office. Last: 01/15/2023 Noted-follow up 4 weeks 02/12/2023-cx'd by patient Covid exposure Next: NA documented in this encounter [facility] 01-21-2023 Note HNO ID: [id number] Author: Jamilah Galvan PA-C Service: ? Author Type: Physician Flat Ironer Type: Progress Notes Filed: 01/21/2023 1:28 PM Note Text: Patient: Juan Eagle PCP: Jericho Tinoco MD CC: follow up HPI: Juan Eagle 57 year old morbidly obese female current 05-uito-wpto smoker with PMH significant for GERD, HLD, [...] all sleep. DME: Medical Service. Follow with [facility]. PAST MEDICAL HISTORY Diagnosis Date Acute myocardial infarction of lateral wall ([facility]) 04/04/2022 [facility] Cerebellar mass 1995 mass versus infarct Cervical cord compression with myelopathy ([facility]) 05/28/2019 Depression 04/11/2015 Disc degeneration, lumbar 2000 [...] Stage 3b chronic kidney disease ([facility]) 12/04/2021 Type 2 diabetes mellitus without complication ([facility]) 03/02/2016 Allergies: Codeine Other: See Comments Comment: [...] PAST SURGICAL HISTOR (more content not included)... [facility] 01-21-2023 History of Presen t illness Narrative Images from the original note were not included. Patient: Juan Eagle PCP: Jericho Tinoco MD CC: follow up HPI: Juan Eagle 57 year old morbidly obese female current 29-lrux-tgsm smoker with PMH significant for GERD, HLD, [...] all sleep. DME: Medical Service. Follow with [facility]. PAST MEDICAL HISTORY Diagnosis Date Acute myocardial infarction of lateral wall (HCC) 04/04/2022 [facility] Cerebellar mass 1995 mass versus infarct [...] &/TRANSPOS MEDIAN NRV CARPAL TUNNE Left 08/30/2009 [facility] PAST SURGICAL HISTORY OF 05/30/2019 C5-[address] Grace Long PT ED HEART AND VASCULAR Cardiac Stent [facility] 04/04/22 S PROBE PERC LUMBAR DISCECTOMY 04/2000 [facility] I reviewed the past medical [...] obstruction Imaging / Diagnostic Studies: CXR 03/2022 [facility] reviewed showing bilateral hazy opacities without pleural [...] Jamilah Galvan PA-C documented in this encounter [facility] 01-15-2023 Miscellaneous Notes Medication sent to [facility]. [facility] does have this medication in stock, Patient aware you will send there. [facility] calls to report that Ingrezza is a specialty medication and [facility] cannot get that med. Will need to try somewhere else. Elham Graves LPN documented in this encounter [facility] 01-15-2023 Note HNO ID: [id number] Author: Cassie Kendrick RT(R) Service: Radiology Author [...] Kendrick RT(R) January 15, 2023 9:25 AM [facility] 01-15-2023 Note HNO ID: [id number] Author: Fidel Bazan APRN.RESEARCH MANAGEMENT ASSOCIATE Service: ? Author Type: Nurse Practitioner Type: [...] myocardial infarction of lateral wall ([facility]) 04/04/2022 [facility] Cerebellar mass 1995 mass versus infarct Cervical cord compression with myelopathy ([facility]) 05/28/2019 Depression 04/11/2015 Disc degeneration, lumbar 2000 [...] 2 diabetes mellitus without complication ([facility]) 03/02/2016 PAST SURGICAL HISTORY Procedure Laterality Date ANTERIOR DISKECTOMY, CERVICAL, EACH ADDL 05/30/2019 ACDF C5-6 - anterior cervical discectomy and arthrodesis ARTHRP KNE CONDYLEANDPLATU MEDIALANDLAT COMPARTMENTS Left 01/14/2018 COLONOSCOPY AND BIOPSY 09/02/2017 Dr. ivet HAGER 01/23/2021 KNEE ARTHROSCOP MENISCUS REPAIR MED/LAT Left 06/22/2016 partial medial meniscectomy LUMBAR OR CAUDAL EPIDURAL INJECTION 01/2017 multiple since 2014. NEUROPLASTY AND/TRANSPOS MEDIAN NRV CARPAL TUNNE Left 08/30/2009 [facility] PAST SURGICAL HISTORY OF 05/30/2019 C5-[address] Grace Long PT ED HEART AND VASCULAR Cardiac Stent [facility] 04/04/22 S PROBE PERC LUMBAR DISCECTOMY 04/2000 [facility] ALLERGIES Codeine, Seroquel [Quetiapine], Vraylar [...] Hypertension Sister B (more content not included)... [facility] 01-15-2023 Note HNO ID: [id number] Author: Seda Quiroz APRN.RESEARCH MANAGEMENT ASSOCIATE Service: ? Author Type: Nurse Practitioner Type: [...] Ideations: No homicidal (more content not included)... [facility] 01-15-2023 Instructions Seda Quiroz, LEONELA.DAYANARA - 01/15/2023 9:08 AM EDT Aziza Pearson, It was good to talk with you today. Below is a summary of the plan that we discussed during your appointment for reference. Of course, if you have any questions or concerns do not hesitate to reach out to me via a message or call. Seda Reynoso APRN.RESEARCH MANAGEMENT ASSOCIATE PLAN AND FOLLOW UP: YOU SHOULD SEEK [...] - Call the National Suicide Hotline at 9-877-LGZWUVH ( ) or 4-794-380-TALK (5452) - Text 4HOPE to 434003 Medication Update: Lamictal 200 mg - take 1/2 tablet in the morning and 1 tablet in the evening. Ingrezza 40 mg - take 1 capsule every morning. Continue the rest of your psychiatric medications at the same dose. Next appointment: February 12 at 9:30 am in person -- You may call the department appointment line at [phone] to schedule your appointment. -- Please call my nurse Michelle at [phone] or send me a message in [employer] with any questions or concerns between appointments. documented in this encounter [facility] 01-15-2023 History of Presen t [...] referral for the patient to contact in [place]. Follow up in 4 weeks. Medication Update: [...] which included preparing to see the patient, tapy-df-svvg patient care, completing clinical documentation, and counseling and educating the patient/family/caregiver, ordering medications/labs. Seda Quiroz APRN.RESEARCH MANAGEMENT ASSOCIATE January 15, 2023 8:23 AM This note was partially generated using Cynny voice recognition system. Note was reviewed for accuracy. There may be minor misspellings or grammar miscues with Cynny voice recognition. documented in this encounter [facility] 12-04-2022 Note HNO ID: [id number] Author: Aron Navarro Service: ? Author Type: [...] myocardial infarction of lateral wall ([facility]) 04/04/2022 [facility] Cerebellar mass 1995 mass versus infarct Cervical cord compression with myelopathy ([facility]) 05/28/2019 Depression 04/11/2015 Disc degeneration, lumbar 2000 [...] 2 diabetes mellitus without complication ([facility]) 03/02/2016 Current Outpatient Medications Medication Sig dulaglutide [...] AND/TRANSPOS MEDIAN NRV CARPAL TUNNE Left 08/30/2009 [facility] PAST SURGICAL HISTORY OF 05/30/2019 C5-[address] Grace Long PT ED HEART AND VASCULAR Cardiac Stent [facility] 04/04/22 S PROBE PERC LUMBAR DISCECTOMY 04/2000 [facility] FAM (more content not included)... [facility] 12-04-2022 Note HNO ID: [id number] Author: Pepper Estrada LPN Service: ? Author Type: LICENSED NURSE Type: Progress Notes Filed: 12/05/2022 6:45 AM Note Text: AMB ROOMING INTAKE FLOWSHEET DATA Patient presents with: Left Foot - Established Patient, Diabetic Foot Care Right Foot - Established Patient, Diabetic Foot Care Pepper Estrada LPN [facility] 12-04-2022 Instructions Aron Navarro - 12/04/2022 [...] (or decreased sensation in your feet) a commercial management accountant should always cut your toenails. Be Careful [...] Go to your health care provider or commercial management accountant to treat these conditions. documented in this encounter [facility] 12-04-2022 History of Presen t [...] of lateral wall (HCC) 04/04/2022 [facility] Cerebellar mass 1995 mass versus infarct [...] &/TRANSPOS MEDIAN NRV CARPAL TUNNE Left 08/30/2009 [facility] PAST SURGICAL HISTORY OF 05/30/2019 C5-[address] Grace Lnog PT ED HEART AND VASCULAR Cardiac Stent [facility] 04/04/22 S PROBE PERC LUMBAR DISCECTOMY 04/2000 [facility] FAMILY HISTORY Problem Relation Age [...] Objective: Patient presents to clinic ambulating in [facility] Constitutional: Pt is a well developed [...] mellitus due to underlying condition ([facility]) (primary encounter diagnosis) (L84) Callus of foot [...] Pepper Estrada LPN documented in this encounter [facility] 11-16-2022 Miscellaneous Notes Letter faxed [...] a letter and it needs faxed to [phone]. Sofi Carrion RN documented in this encounter [facility] 11-07-2022 Note Patient Outreach (IN [facility]) JUAN EAGLE ([id number]) 1965 F CHT Date Time Provider Department [...] Date Reviewed: 08/28/2022 Reviewed by: Joanna Arce APRN.RESEARCH MANAGEMENT ASSOCIATE - Fully Assessed Visit Diagnosis:Encounter for screening mammogram for breast cancer [Z12.31] Order(s):[facility] SCREENING [1242352] Order #: [id number] FUTURE Prescriptions as of 11/12/2022 - dulaglutide [...] (HCC) [N18.31] 12/04/2021 Coronary artery disease involving winnebago andre*04/11/2022 ST elevation myocardial infarction involving le*04/11/2022 Ventricular fibrillation (HCC) [I49.01] 04/11/2022 08/28/2022 Ischemic cardiomyopathy [I25.5] 04/11/2022 Encounter for long-term (current) use of medica*07/01/2022 Bipolar disorder (HCC) [F31.9] 07/01/2022 PTSD (post-traumatic stress disorder) [F43.10] 07/01/2022 Dys (more content not included)... [facility] 09-20-2022 Note HNO ID: [id number] Author: Seda Quiroz APRN.RESEARCH MANAGEMENT ASSOCIATE Service: ? Author Type: Nurse Practitioner Type: [...] visit. Either the patient or their legal c s s representative has been informed of the risks [...] which included preparing to see the patient, mvza-vt-purk patient care, completing clinical documentation, and counseling and educating the patient/family/caregiver, ordering medications/labs. Seda Quiroz APRN.CNP September 20, 2022 10:20 AM This note was partially generated using Cynny voice recognition system. Note was reviewed for accuracy. There may be minor misspellings or grammar miscu (more content not included)... [facility] 08-29-2022 Miscellaneous Notes Below results left on identified vm. Gricelda Duckworth LPN ----- Message from Joanna Arce APRN.CNP sent at 08/29/2022 8:41 AM EDT ----- Please let the patient know HgbA1c was 5.7, diabetes well controlled. Kidney function stable. The rest of her labs were within acceptable limits documented in this encounter [facility] 08-28-2022 Note HNO ID: [id number] Author: Joanna Arce APRN.CNP Service: ? Author [...] myocardial infarction of lateral wall ([facility]) 04/04/2022 [facility] Cerebellar mass 1995 mass versus infarct Cervical cord compression with myelopathy ([facility]) 05/28/2019 Depression 04/11/2015 Disc degeneration, lumbar 2000 [...] 2 diabetes mellitus without complication ([facility]) 03/02/2016 PAST SURGICAL HISTORY Procedure Laterality Date ANTERIOR DISKECTOMY, CERVICAL, EACH ADDL 05/30/2019 ACDF C5-6 - anterior cervical discectomy and arthrodesis ARTHRP KNE CONDYLEANDPLATU MEDIALANDLAT COMPARTMENTS Left 01/14/2018 COLONOSCOPY AND BIOPSY 09/02/2017 Dr. cooney EGD 01/23/2021 KNEE ARTHROSCOP MENISCUS REPAIR MED/LAT Left 06/22/2016 partial medial meniscectomy LUMBAR OR CAUDAL EPIDURAL INJECTION 01/2017 multiple since 2014. NEUROPLASTY AND/TRANSPOS MEDIAN NRV CARPAL TUNNE Left 08/30/2009 [facility] PAST SURGICAL HISTORY OF 05/30/2019 C5-[address] Grace Long PT ED HEART AND VASCULAR Cardiac Stent [facility] 04/04/22 S PROBE PERC LUMBAR DISCECTOMY 04/2000 [facility] ALLERGIES Codeine, Seroquel [Quetiapine], Vraylar [...] Inhalation as instruct (more content not included)... [facility] 08-23-2022 Note HNO ID: [id number] Author: Seda Quiroz APRN.RESEARCH MANAGEMENT ASSOCIATE Service: ? Author Type: Nurse Practitioner Type: [...] visit. Either the patient or their legal c s s representative has been informed of the risks [...] and Lamictal at the same dose. 3. Tearer Dr. Savage consulted about restarting benzodiazepines. He [...] intent or plan (more content not included)... [facility] 08-23-2022 Instructions Seda Quiroz APRN.CNP - [...] - Call the National Suicide Hotline at 1-449-TZFVBVA ( ) or 7-948-071-TALK (4569) - Text 4HOPE to 589400 Medication Update: Lamictal 200 mg - take 1 tablet once daily. Continue the other psychiatric medications at the same dose. Next appointment: September 20 at 10:30 am Virtual -- Please call my nurse Michelle at [phone] or send me a message in [employer] with any questions or concerns between appointments. documented in this encounter [facility] 08-23-2022 History of Presen t [...] visit. Either the patient or their legal c s s representative has been informed of the risks [...] and Lamictal at the same dose. 3. Tearer Dr. Savage consulted about restarting benzodiazepines. He [...] which included preparing to see the patient, aqyl-dj-ivln patient care, completing clinical documentation, and counseling and educating the patient/family/caregiver, ordering medications/labs. Seda Quiroz APRN.CNP August 23, 2022 8:03 AM This note was partially generated using Cynny voice recognition system. Note was reviewed for accuracy. There may be minor misspellings or grammar miscues with Dragon voice recognition. documented in this encounter [facility] 07-20-2022 Note HNO ID: [id number] Author: FLASH Caceres Service: ? Author Type: Respiratory Therapist Type: Progress Notes Filed: 07/20/2022 3:28 PM Note Text: PULM FUNCTION SMARTBLOCK: Provider: Talia Dias MD Assisting Tech: FLASH Caceres Spirometry: 1 [facility] 07-20-2022 History of Presen t illness Narrative PULM FUNCTION SMARTBLOCK: Provider: Talia Dias MD Assisting Tech: FLASH Caceres Spirometry: 1 documented in this encounter [facility] 07-19-2022 Note HNO ID: [id number] Author: Talia Dias MD Service: ? Author Type: Physician Type: Progress Notes Filed: 07/19/2022 4:06 PM Note Text: . Respiratory [place] Note Patient name: Juan Eagle PCP: Jericho Tinoco MD CC: Shortness of breath HPI: Juan Eagle 57 year old morbidly obese female current 48-abuu-ehvd smoker with PMH significant for GERD, HLD, [...] eosinophilia Imaging / Diagnostic Studies: CXR 03/2022 [facility] reviewed showing bilateral hazy opacities without pleural effusions consistent with pulmonary edema Echocardiogram with ejection fraction 60%, grade 3 diastolic dysfunction and mild pulmonary hypertension PAST MEDICAL HISTORY Diagnosis Date Acute myocardial infarction of lateral wall ([facility]) 04/04/2022 [facility] Cerebellar mass 1995 mass versus infarct Cervical cord compression with myelopathy ([facility]) 05/28/2019 Depression 04/11/2015 Disc degeneration, lumbar 2000 [...] Stage 3b chronic kidney disease ([facility]) 12/04/2021 Type 2 diabetes mellitus without complication ([facility]) 03/02/2016 ALLERGIES Allergen Reactions Codeine Other: See [...] once daily. albuterol (more content not included)... [facility] 07-19-2022 History of Presen t illness Narrative Images from the original note were not included. . [facility] [place] Note Patient name: Juan Eagle PCP: Jericho Tinoco MD CC: Shortness of breath HPI: Juan Eagle 57 year old morbidly obese female current 97-yznu-ixkv smoker with PMH significant for GERD, HLD, [...] eosinophilia Imaging / Diagnostic Studies: CXR 03/2022 [facility] reviewed showing bilateral hazy opacities without pleural effusions consistent with pulmonary edema Echocardiogram with ejection fraction 60%, grade 3 diastolic dysfunction and mild pulmonary hypertension PAST MEDICAL HISTORY Diagnosis Date Acute myocardial infarction of lateral wall (HCC) 04/04/2022 [facility] Cerebellar mass 1995 mass versus infarct [...] &/TRANSPOS MEDIAN NRV CARPAL TUNNE Left 08/30/2009 [facility] PAST SURGICAL HISTORY OF 05/30/2019 C5-[address] Grace Long PT ED HEART AND VASCULAR Cardiac Stent [facility] 04/04/22 S PROBE PERC LUMBAR DISCECTOMY 04/2000 [facility] PMH, Social history, family history [...] poor control of asthma 4. Cigarette smoker -47-giia-vgub smoker without sequelae of COPD -Smoking cessation recommended -PCP already referred patient to lung cancer screening clinic Talia Dias MD [facility] [place] documented in this encounter [facility] 06-28-2022 Miscellaneous Notes Amitriptyline has [...] Jamilah Gotti Pss documented in this encounter [facility] 06-28-2022 Miscellaneous Notes Pt called in stating she could not refill her Breo inhaler d/t pharmacy did not have refill orders. Call to Jail[facility] STAPLE[facility] to verify our order states 11 refills. Agnes, at [facility] states they are in the process of refilling Rx for pt and not sure where the miscommunication happened and states there are plenty of refills for pt. Returned call to pt to notify M with detailed message. documented in this encounter [facility] 06-22-2022 Miscellaneous Notes Nurse from [email or web address] did not contact patient. Patient is returning a call she received from nurse Loaiza. Please contact the patient again. documented in this encounter [facility] 06-22-2022 Note HNO ID: [id number] Author: Seda Quiroz APRN.RESEARCH MANAGEMENT ASSOCIATE Service: ? Author Type: Nurse Practitioner Type: [...] she was in the car driving to [place]. She continues to take Lexapro and Lamictal. [...] Vrylar (TD). She was on the [employer] that it helped with TD for the [...] AND/TRANSPOS MEDIAN NRV CARPAL TUNNE Left 08/30/2009 [facility] PAST SURGICAL HISTORY OF 05/30/2019 C5-[address] Grace Long S PROBE PERC LUMBAR DISCECTOMY 04/2000 [facility] Current Outpatie (more content not included)... [facility] 06-22-2022 Instructions Seda Quiroz APRN.DAYANARA - 06/22/2022 9:34 AM EST Aziza Pearson, It was good to meet and talk with you today. Below is a summary of the plan that we discussed during your appointment for reference. Of course, if you have any questions or concerns do not hesitate to reach out to me via a message or call. Best, Seda Quiroz APRN.RESEARCH MANAGEMENT ASSOCIATE PLAN AND FOLLOW UP: YOU SHOULD SEEK [...] - Call the National Suicide Hotline at 0-295-UASWRXH ( ) or 3-020-987-TALK (6641) - Text 8WBKP to 794337 Medication Update: - Restart Ambien 10 mg - take 1 tablet at bedtime to help with sleep. - Continue Lexapro and Lamictal at the same dose. Other: I left a message with your Tearer's nurse Disha. She will fax over the latest EKG results from May so you don't have to do the EKG. She will call me back after speaking with Dr. Savage about the medications. Next appointment: --Schedule in 3 to 4 weeks or sooner if needed -- You may call the department appointment line at [phone] to schedule your appointment. -- Please call my nurse Michelle at [phone] or send me a message in [employer] with any questions or concerns between appointments. documented in this encounter [facility] 06-22-2022 History of Presen t [...] she was in the car driving to [place]. She continues to take Lexapro and Lamictal. [...] Vrylar (TD). She was on the [employer] that it helped with TD for the [...] &/TRANSPOS MEDIAN NRV CARPAL TUNNE Left 08/30/2009 [facility] PAST SURGICAL HISTORY OF 05/30/2019 C5-[address] Grace Long S PROBE PERC LUMBAR DISCECTOMY 04/2000 [facility] Current Outpatient Medications Medication Sig [...] Previously followed by Jason Mendoza at the [facility] Therapist: Previously saw a therapist at the counseling center but they reported that she had graduated from it. Last engaged in therapy 4 years ago. Current Sagger Soak: No Last Hospitalization: None ECT: No Previous [...] history of use or dependence SPIRITUALITY: Cyndi COUNT INCLUDES THE [facility]: Juan Eagle is the 2nd of 5 siblings. The patient was born and raised in [place], [place]. She completed High school, Technical. She [...] and Lamictal at the same dose. 3. Tearer Dr. Savage consulted about restarting benzodiazepines. He [...] which included preparing to see the patient, byud-yo-zsls patient care, completing clinical documentation, obtaining and/or [...] AM PAGER : documented in this encounter [facility] 06-01-2022 Note HNO ID: [id number] Author: Joanna Arce APRN.CNP Service: ? Author [...] AND/TRANSPOS MEDIAN NRV CARPAL TUNNE Left 08/30/2009 [facility] PAST SURGICAL HISTORY OF 05/30/2019 C5-[address] Grace Long S PROBE PERC LUMBAR DISCECTOMY 04/2000 [facility] ALLERGIES Codeine, Seroquel [Quetiapine], Vraylar [...] daily. Per Counseling (more content not included)... [facility] 06-01-2022 History of Presen t illness [...] &/TRANSPOS MEDIAN NRV CARPAL TUNNE Left 08/30/2009 [facility] PAST SURGICAL HISTORY OF 05/30/2019 C5-[address] Grace Long S PROBE PERC LUMBAR DISCECTOMY 04/2000 [facility] ALLERGIES Codeine, Seroquel [Quetiapine], Vraylar [...] psychiatrist. She is interested in seeing [employer] text[employer] sales representative. - CONSULT TO PSYCHIATRY 2. Insomnia, unspecified type - ICD9: 780.52, ICD10: G47.00 See above. Increase Elavil to 50 mg at bedtime 3. Panic anxiety syndrome - ICD9: 300.01, ICD10: F41.0 See above. 4. Coronary artery disease involving winneb[place] coronary artery of winnebago heart without angina pectoris - ICD9: 414.01, [...] Joanna Arce APRN.CNP documented in this encounter [facility] 04-12-2022 Miscellaneous Notes After appt 04/11/22 pcp is asking for med profile from [facility]. Called [facility]. They are not able to do this. Pt will need to come to their store and request this. Message left to pt with this info Called [place]. Message left with same request. documented in this encounter [facility] 04-11-2022 History of Presen t illness Narrative This note was created using ividenceter. Subjective Transitional Care Management Progress Note The [...] Kidney Disease (Hcc) Coronary Artery Disease Involving [place] Coronary Artery of [place] Heart Without Angina Pectoris St Elevation Myocardial [...] &/TRANSPOS MEDIAN NRV CARPAL TUNNE Left 08/30/2009 [facility] PAST SURGICAL HISTORY OF 05/30/2019 C5-[address] Grace Long S PROBE PERC LUMBAR DISCECTOMY 04/2000 [facility] Social History Tobacco Use Smoking [...] acute MO. 3. Coronary artery disease involving winnebago coronary artery of [place] heart without angina pectoris - ICD9: 414.01, [...] indicated understanding and willingness to follow recommendations. Jericoh Tinoco MD documented in this encounter [facility] documented as of this encounter (statuses as of 08/29/2022) [facility]12-07-20[facility] History of Past illness Narrative* [...] of this encounter (statuses as of 11/12/2022) [facility] History of Past illness Narrative* [...] of this encounter (statuses as of 11/16/2022) [facility] History of Past illness Narrative* [...] of this encounter (statuses as of 12/05/2022) [facility] History of Past illness Narrative* [...] of this encounter (statuses as of 01/15/2023) [facility] History of Past illness Narrative* [...] of this encounter (statuses as of 01/15/2023) [facility] History of Past illness Narrative* [...] of this encounter (statuses as of 01/21/2023) [facility] History of Past illness Narrative* [...] of this encounter (statuses as of 02/09/2023) [facility] History of Past illness Narrative* [...] of this encounter (statuses as of 02/13/2023) [facility] History of Past illness Narrative* [...] of this encounter (statuses as of 02/20/2023) [facility] History of Past illness Narrative* [...] of this encounter (statuses as of 03/06/2023) [facility] History of Past illness Narrative* [...] of this encounter (statuses as of 03/12/2023) [facility] History of Past illness Narrative* [...] of this encounter (statuses as of 03/20/2023) [facility] History of Past illness Narrative* [...] of this encounter (statuses as of 04/08/2023) [facility] History of Past illness Narrative* [...] of this encounter (statuses as of 05/20/2023) [facility]12[facility]05-[facility] History of Present illness Narrative* Brigette Fregoso LPN - 04/09/2022 3:16 PM EST TRANSITION CARE MANAGEMENT (TCM) INITIAL CONTACT Petroleum Inspector Outreach Provider Action/FYI: Apt has been scheduled Initial contact with patient post discharge, spoke to patient. Patient identified by name and . TRANSITION CARE MANAGEMENT INITIAL OUTREACH DOCUMENTATION: Date of Outreach: 04/09/2022 Outreach Attempt 1: Contact Made Date of Discharge 04/06/2022 Some recent data might be hidden SUMMARY: -Pt discharged from [facility] on 04/06/22. -Admitted for: heart attack Do [...] home? Yes Medical records from recent hospitalization: [facility] has records if not received [facility] Hospital Discharge instructions Patient Education [...] leg Difficulty speaking, swallowing or walking Seizure [id number] [employer]. [address] [place] [address], [place] [address]. All rights reserved. This information is not intended as a substitute for professional medical care. Always follow yourhealthcare professional's instructions. Follow Up Care 03/08/2022 15:34:05 With:JERICHO TINOCO MD Address: [address] [place] [address]- When:2-4 days [facility] 11-03-2022 Emergency department Discharge summary Discharge Instructions Thank you for allowing [facility] to assist you with your healthcare needs. The following is importantdischarge information regarding your hospital visit. Diagnosis from Today's Visit Shingles Rash What to Do Next Instructions from Your Care Team No qualifying data available. Post Acute Orders No qualifying data available. You Need to Schedule the Following Appointments Follow Up with JERICHO TINOCO MD When Within 2-4 days Where: [address] [place], [place] [id number]- Allergies Dilaudid Percocet 5/325 SEROquel codeine traMADol [...] Duration: 7 Days Printed Prescription Changed acetaminophen-hydrocodone (Milton 325- 5 mg oral tablet) 1 tab(s) by mouth Two (2) times a day Changed acetaminophen-hydrocodone (Milton 325- 5 mg oral tablet) 1 tab(s) [...] leg Difficulty speaking, swallowing or walking Seizure [id number] [employer] [place], [place] [id number]. All rights reserved. This information is not intended as a substitute for professional medical care. Always follow yourhealthcare professional's instructions. Additional Information VACCINATE! IT SAVES LIVES! Members of the community who have not yet received the COVID-19 vaccine and would like to receive it can visit one of [facility] vaccine clinics. There are many vaccine clinic locations within the [facility]. For locations and available times, please visit [email or web address]. It is important to note that some COVID mobile vaccine clinics are held outdoors and may be canceled in rainy orstormy conditions. To learn more about pediatric vaccinations (ages 5-11), we invite you to visit the [facility] webpage. [email or web address] learn more about the COVID-19 vaccine, we invite you to visit the [facility] website for a list of frequently asked questions. [email or web address] [facility] Patient Portal Access Instructions: Stay connected with your healthcare team and access your personal medical information anytime with the [facility] Patient Portal. If you would like a full copy of your medical records please contact the [facility] Medical Records Department Saturday through Saturday between 8a.m. and 4:30p.m. Please follow the directions below to access the portal: 1.Access the email account you provided upon registration to the special care hospital.2.Look for an invitation email from [facility].3.Open the email and access the invitation link: Accept Invitation to [facility]4.Fill in the required alamo to create your account. Sign into [email or web address] with your username and password that you [...] you will allow to register on the [facility] Patient Portal for access to your information. You can also access the [facility] Patient Portal on the MIGSIF dasha. Simply click on Health Records under Cream.HR and then click on the ExpertFile logo. HOW TO SAFELY DISPOSE OF PRESCRIPTION [...] Call your local pharmacy or go to [email or web address] to find one close to you.3.Make use of household items: Use cat litter or old coffee grounds to dispose medications if other options arenot available. Mix your drugs with these household products, seal them in an airtight container andthrow it into the garbage. Call [facility]: [phone] to be sure your drugs can be [...] aware that I should contact my doctor. Patient/Data Collection Interviewer Signature: Date/Time: Relationship to Patient: Witness Name/Signature: Date/Time: [facility]10-27-2022 History of Present illness Narrative * Jericho [...] intervention Jericho Tinoco MD [facility] Evaluation note* Diagnosis Type 2 [...] obesity type (HCC) documented in this encounter [facility]10-21-2022 Miscellaneous Notes* Telephone Encounter - Jericho Tinoco MD - 02/23/2022 1:08 PM EDT [facility] Nurse Note* Peggy Diaz LPN - 01/18/2022 1:01 PM EDT Intake information documented in the prior visit with FLASH Caceres today. [facility] Procedure note* FLASH Caceres - [...] 2022 TIME: 12:58 PM [facility] in [facility] History of Present illness Narrative* FLASH Caceres - 01/18/2022 12:45 PM EDT PULM FUNCTION SMARTBLOCK: Provider: Jamilah Galvan PA-C Assisting Tech: FLASH Caceres Spirometry: 1 Exhaled Nitric Oxide: 1 documented in [facility] History of Present illness Narrative* Jamilah Galvan PA-C - 01/18/2022 12:45 PM EDT [facility] [place], 01/18/2022: Name: Juan Eagle : 1965 The [...] FEF75 (L/sec) 0.69 0.28 1.54 0.92 133 TPJ80-29 (L/sec) 2.32 1.24 3.74 2.57 110 PEF [...] answers. Jamilah Galvan PA-C [facility] Miscellaneous Notes* Telephone Encounter - Gricelda Duckworth LPN - 12/04/2021 5:02 PM EDT Below left referral on identified vm. Faxed referral to [facility] scheduling. Gricelda Duckworth LPN * Telephone Encounter [...] is calling asking for a referral to [facility] dietitian. She is wanting directions on what to eatand not to eat with the dx of 3rd stage renal failure. [facility] Miscellaneous Notes* Telephone Encounter - Brigette Linares - 07/21/2021 11:21 AM EDT Patient electronically requesting refills as follows: Pending Prescriptions Disp Refills LANSOPRAZOLE 30 MG CAPSULE,DELAYED RELEASE 90 capsule 3 Sig: Take 1 capsule by mouth once daily. AURY: No Please review and advise. Brigette Linares documented in [facility] History of Past illness Narrative* [...] of this encounter (statuses as of 12/04/2021) [facility] History of Past illness Narrative* [...] of this encounter (statuses as of 12/04/2021) [facility] History of Past illness Narrative* [...] of this encounter (statuses as of 01/18/2022) [facility] of Past illness Narrative* [...] of this encounter (statuses as of 01/18/2022) [facility] of Past illness Narrative* [...] of this encounter (statuses as of 02/23/2022) [facility] of Past illness Narrative* [...] of this encounter (statuses as of 03/01/2022) [facility] of Past illness Narrative* [...] of this encounter (statuses as of 04/12/2022) [facility] of Past illness Narrative* [...] of this encounter (statuses as of 04/12/2022) [facility] of Past illness Narrative* [...] of this encounter (statuses as of 04/13/2022) [facility] of Past illness Narrative* [...] of this encounter (statuses as of 06/01/2022) [facility] of Past illness Narrative* [...] of this encounter (statuses as of 06/22/2022) [facility] of Past illness Narrative* [...] of this encounter (statuses as of 06/28/2022) [facility] of [facility] illness Narrative* [...] of this encounter (statuses as of 07/01/2022) [facility] of Past illness Narrative* [...] of this encounter (statuses as of 07/01/2022) [facility] of Past illness Narrative* [...] this encounter (statuses as of 07/19/2022) [address]21-2021 History of Past illness Narrative* Problem [...] of this encounter (statuses as of 07/20/2022) [facility] of Past illness Narrative* [...] of this encounter (statuses as of 08/23/2022) [facility] History of Past illness Narrative* Problem Noted Date Resolved Date BMI 45.0-49.9, adult 01/25/2020 03/20/2021 Thumb tendonitis 01/20/2016 02/20/2017 Osteoarthritis of lumbar spine 12/05/2015 1 Depression 04/11/2015 08/10/2017 Low back pain 04/11/2015 02/20/2017 Gastroesophageal reflux disease without esophagi tis 04/11/2015 12/16/2019 documented as of this encounter (statuses as of 07/24/2021) [facility] of [facility] illness Narrative* Problem Noted Date Resolved Date BMI 45.0-49.9, adult 01/25/2020 03/20/2021 Thumb tendonitis 01/20/2016 02/20/2017 Osteoarthritis of lumbar spine 12/05/2015 1 Depression 04/11/2015 08/10/2017 Low back pain 04/11/2015 02/20/2017 Gastroesophageal reflux disease without esophagi tis 04/11/2015 12/16/2019 documented as of this encounter (statuses as of 09/01/2021) [facility] note No data available for this section [facility] Evaluation note* Diagnosis Gastroesophageal reflux disease without esophagitis Esophageal reflux documented in this encounter [facility] note* Diagnosis Type 2 diabetes mellitus without complication (HCC) Type II or unspecified type diabetes mellitus without mention of complication, not stated as uncontrolled documented in this encounter [facility] note* Diagnosis Stage 3b chronic kidney disease (HCC)- Primary documented in this encounter [facility] note* Diagnosis Stage 3b chronic kidney disease (HCC)- Primary Type 2 diabetes mellitus without complication, without long-term current use of insulin ([facility]) documented in this encounter [facility] note* Diagnosis Moderate persistent asthma without complication Unspecified asthma documented in this encounter [facility] note* Diagnosis Moderate persistent asthma without complication Unspecified asthma documented in this encounter [facility] note* Diagnosis Moderate persistent asthma without complication- Primary Unspecified asthma Gastroesophageal reflux disease without esophagitis Esophageal reflux Tobacco use disorder JOSE (obstructive sleep apnea) Obstructive sleep apnea (adult) (pediatric) documented in this encounter [facility] note* Diagnosis Stage 3b chronic kidney disease (HCC)- Primary Panic anxiety syndrome Panic disorder without agoraphobia documented in this encounter [facility] note* Diagnosis ST elevation myocardial infarction involving left circumflex coronary artery ([facility])- Primary Acute myocardial infarction of other specified sites, initial episode of care Ventricular fibrillation (HCC) Ventricular fibrillation Coronary artery disease involving [place] coronary artery of [place] heart without angina pectoris Ischemic cardiomyopathy Other specified forms of chronic ischemic heart disease Mixed hyperlipidemia Type 2 diabetes mellitus with stage 3a chronic kidney disease, without long-term current use of insulin ([facility]) Tobacco use disorder [facility] Bipolar affective disorder, remission status unspecified ([facility])- Primary Insomnia, unspecified type Panic anxiety syndrome Panic disorder without agoraphobia Coronary artery disease involving [place] coronary artery of [place] heart without angina pectoris Persistent headaches Headache Type 2 diabetes mellitus with stage 3a chronic kidney disease, without long-term current use of insulin ([facility]) Morbid obesity with BMI of 45.0-49.9, adult ([facility]) Morbid obesity Psoriatic arthritis (HCC) Psoriatic arthropathy [facility] Diagnosis Persistent headaches Headache Gastroesophageal reflux disease without esophagitis Esophageal reflux [facility]* Diagnosis Encounter for long-term (current) use of medications- Primary Encounter for long-term (current) use of other medications Bipolar affective disorder, remission status unspecified ([facility]) PTSD (post-traumatic stress disorder) Posttraumatic stress disorder Panic disorder with agoraphobia Agoraphobia with panic disorder Dyskinesia, tardive Subacute dyskinesia due to drugs [facility]* Diagnosis SOB (shortness of breath)- Primary Shortness of breath Mild intermittent asthma without complication Unspecified asthma Morbid obesity (HCC) Morbid obesity Cigarette smoker Tobacco use disorder [facility]* Diagnosis SOB (shortness of breath) Shortness of breath [facility]* Diagnosis PTSD (post-traumatic stress disorder)- Primary Posttraumatic stress disorder Panic disorder with agoraphobia Agoraphobia with panic disorder Dyskinesia, tardive Subacute dyskinesia due to drugs Bipolar affective disorder, currently depressed, moderate ([facility]) Bipolar I disorder, most recent episode (or current) depressed, moderate [facility]* Diagnosis Encounter for screening mammogram for breast cancer [facility]* Diagnosis Diabetic mononeuropathy associated with diabetes mellitus due to underlying condition ([facility])- Primary Callus of foot Corns and callosities Ingrowing toenail Ingrowing nail Onychomycosis Dermatophytosis of nail Pain in toe of left foot Pain in limb Pain in toe of right foot Pain in limb Diminished pulses in lower extremity Other symptoms involving cardiovascular system [facility]* Diagnosis Bipolar affective disorder, currently depressed, moderate ([facility])- Primary Bipolar I disorder, most recent episode (or current) depressed, moderate Dyskinesia, tardive Subacute dyskinesia due to drugs Panic disorder with agoraphobia Agoraphobia with panic disorder PTSD (post-traumatic stress disorder) Posttraumatic stress disorder [facility]* Diagnosis Moderate persistent asthma without complication- Primary Unspecified asthma Morbid obesity (HCC) Morbid obesity Gastroesophageal reflux disease without esophagitis Esophageal reflux Cigarette smoker Tobacco use disorder [facility]* Diagnosis Panic disorder with agoraphobia Agoraphobia with panic disorder Dyskinesia, tardive Subacute dyskinesia due to drugs [facility]* Diagnosis Wrist pain, right- Primary Pain in joint, forearm Psoriatic arthritis (HCC) Psoriatic arthropathy Type 2 diabetes mellitus with stage 3a chronic kidney disease, without long-term current use of insulin ([facility]) [facility]* Diagnosis Persistent headaches Headache documented in this encounter [facility] note* Diagnosis Dyskinesia, tardive- Primary Subacute dyskinesia due to drugs Bipolar affective disorder, currently depressed, moderate (HCC) Bipolar I disorder, most recent episode (or current) depressed, moderate Panic disorder with agoraphobia Agoraphobia with panic disorder PTSD (post-traumatic stress disorder) Posttraumatic stress disorder documented in this encounter [facility] note* Diagnosis Bipolar affective disorder, currently depressed, moderate (HCC)- Primary Bipolar I disorder, most recent episode (or current) depressed, moderate Dyskinesia, tardive Subacute dyskinesia due to drugs Panic disorder with agoraphobia Agoraphobia with panic disorder PTSD (post-traumatic stress disorder) Posttraumatic stress disorder [facility] No data available for this section [facility] Progress note No data available for this section [facility] Reason for referral (narrative)* Outpatient Procedure (Routine) - Pending Review Specialty Diagnoses / Procedures Referred By Patrick t Referred To Contact [facility] Diagnoses Encounter for long-term (current) use of medications Procedures ECG COMPLETE ECG ROUTINE ECG W/LEAST 12 LDS W/I&R Seda Quiroz, EMERGENCY SPECIALIST.RESEARCH MANAGEMENT ASSOCIATE [address] [place] [address] [facility]ascular [address] [address] Referral ID Status Reason Start Date Expiration Date Visits Requested Visits Authorized [id number] Pending Review Auto-Generat ed Referral 06/22/2022 06/22/2023 1 1 [facility] for referral (narrative)* Outpatient Procedure (Routine) - Authorized Specialty Diagnoses / Procedures [facility] Diagnoses SOB (shortness of breath) Procedures SPIROMETRY BASELINE ONLY SPMTRY W/VC EXPIRATORY JEWEL W/WO MXML VOL VNTJ Talia Dias MD [address] [place] [address] [facility] [place] [address] [place] [id number] Referral ID Status Reason Start Date Expiration Date Visits Requested Visits Authorized [id number] Authorized Auto-Generat ed Referral 07/19/2022 08/18/2023 1 1 T [facility] for referral (narrative)* Diagnostic Procedure Only (Routine) - Pending Review Specialty Diagnoses / Procedures Referred By [facility] Referred To Contact [facility] Diagnoses Encounter for screening mammogram for breast cancer Procedures JEANNETTE SCREENING SCREENING MAMMOGRAPHY BI 2-VIEW BREAST INC CAD Jericho Tinoco MD [address] [place] [id number] [facility] [address] [place] [id number] Referral ID Status Reason Start Date Expiration Date Visits Requested Visits Authorized [id number] Pending Review Auto-Generat ed Referral 11/07/2022 12/07/2023 1 1 T [facility] for referral (narrative)* Outpatient Procedure (Routine) - Authorized Specialty Diagnoses / Procedures [facility] Referred To Contact [facility] [place] Diagnoses Ingrowing toenail Procedures PVR ANK PRESS KAYLEE VAS LAB NON-INVAS PHYSIOLOGIC STD EXTREMITY ART 2 LEVEL Aron Navarro [address] [address] [facility] [place] [address] [place] [address] Referral ID Status Reason Start Date Expiration Date Visits Requested Visits Authorized [id number] Authorized Auto-Generat ed Referral 12/04/2022 12/04/2023 1 1 [facility] Summary Purpose Family History No Family History Records FoundNo Family History Records FoundNo Family History Records FoundNo Family History Records Found Advance Directives No Advanced Directives Records FoundDocuments on File Type Date Recorded Patient Data Collection Interviewer Expl anation Advance Directive(s) 05/29/2019 12:50 PM Advance Directive(s) 04/16/2016 1:49 PM Advance Directive(s) 01/16/2016 9:20 AM Advance Directive(s) 12/19/2015 7:24 AM Reason for Referral Specialty Diagnoses / Procedures Referred By Contac t Referred To Contact Rheumatology Diagnoses Psoriatic arthritis (HCC) Procedures CONSULT TO RHEUM/IMMUN DISEASE Jericho Tinoco MD [address] [place] [address] Referral ID Status Reason Start Date Expiration Date Visits Requested Visits Authorized [id number] Ref Not Required PCP Requested Referral 03/06/2023 03/05/2024 1 1 Specialty Diagnoses / Procedures Referred By Patrick mchugh Referred To Contact Diagnoses Bipolar affective disorder, remission status unspecified (HCC) Procedures CONSULT TO PSYCHIATRY OFFICE/OUTPATIENT [facility] [facility] MDM 60-74 MINUTES Older, LEONELA Marshall.RESEARCH MANAGEMENT ASSOCIATE [address] [place] [address] Referral ID Status Reason Start Date Expiration Date Visits Requested Visits Authorized [id number] Pending Review PCP Requested Referral 06/01/2022 06/01/2023 1 1 Additional Source Comments INFORMATION SOURCE (unrecogn ized section and content) DATE CREATED AUTHOR AUTHOR'S ORGANIZ ATION 06/19/2020 [facility] DATE CREATED AUTHOR AUTHOR'S ORGANIZ ATION 05/17/2022 [facility] ([place]) DATE CREATED AUTHOR AUTHOR'S NERI ATION 05/20/2023 [facility] Source Comments (unrecognize d section and content) In the event this informatio n is protected by the Federal Confidentiality of Alcohol and Drug Abuse Patient Records regulations: The Federal rules restrict any use of the information to criminally investigate or prosecute any alcohol or drug abuse patient.[facility] the event this information is protected by the Federal Confidentiality of Alcohol and Drug Abuse Patient Records regulations: The Federal rules restrict any use of the information to criminally investigate or prosecute any alcohol or drug abuse patient.[facility] HospitalIn the event this information is protected by the Federal Confidentiality of Alcohol and Drug Abuse Patient Records regulations: The Federal rules restrict any use of the information to criminally investigate or prosecute any alcohol or drug abuse patient.[facility] HospitalIn the event this information is protected by the Federal Confidentiality of Alcohol and Drug Abuse Patient Records regulations: The Federal rules restrict any use of the information to criminally investigate or prosecute any alcohol or drug abuse patient.[facility] HospitalIn the event this information is protected by the Federal Confidentiality of Alcohol and Drug Abuse Patient Records regulations: The Federal rules restrict any use of the information to criminally investigate or prosecute any alcohol or drug abuse patient.[facility] HospitalIn the event this information is protected by the Federal Confidentiality of Alcohol and Drug Abuse Patient Records regulations: The Federal rules restrict any use of the information to criminally investigate or prosecute any alcohol or drug abuse patient.[facility] HospitalIn the event this information is protected by the Federal Confidentiality of Alcohol and Drug Abuse Patient Records regulations: The Federal rules restrict any use of the information to criminally investigate or prosecute any alcohol or drug abuse patient.[facility] HospitalIn the event this information is protected by the Federal Confidentiality of Alcohol and Drug Abuse Patient Records regulations: The Federal rules restrict any use of the information to criminally investigate or prosecute any alcohol or drug abuse patient.[facility] HospitalIn the event this information is protected by the Federal Confidentiality of Alcohol and Drug Abuse Patient Records regulations: The Federal rules restrict any use of the information to criminally investigate or prosecute any alcohol or drug abuse patient.[facility] HospitalIn the event this information is protected by the Federal Confidentiality of Alcohol and Drug Abuse Patient Records regulations: The Federal rules restrict any use of the information to criminally investigate or prosecute any alcohol or drug abuse patient.[facility] HospitalIn the event this information is protected by the Federal Confidentiality of Alcohol and Drug Abuse Patient Records regulations: The Federal rules restrict any use of the information to criminally investigate or prosecute any alcohol or drug abuse patient.[facility] HospitalIn the event this information is protected by the Federal Confidentiality of Alcohol and Drug Abuse Patient Records regulations: The Federal rules restrict any use of the information to criminally investigate or prosecute any alcohol or drug abuse patient.[facility] HospitalIn the event this information is protected by the Federal Confidentiality of Alcohol and Drug Abuse Patient Records regulations: The Federal rules restrict any use of the information to criminally investigate or prosecute any alcohol or drug abuse patient.[facility] HospitalIn the event this information is protected by the Federal Confidentiality of Alcohol and Drug Abuse Patient Records regulations: The Federal rules restrict any use of the information to criminally investigate or prosecute any alcohol or drug abuse patient.[facility] HospitalIn the event this information is protected by the Federal Confidentiality of Alcohol and Drug Abuse Patient Records regulations: The Federal rules restrict any use of the information to criminally investigate or prosecute any alcohol or drug abuse patient.[facility] HospitalIn the event this information is protected by the Federal Confidentiality of Alcohol and Drug Abuse Patient Records regulations: The Federal rules restrict any use of the information to criminally investigate or prosecute any alcohol or drug abuse patient.[facility] HospitalIn the event this information is protected by the Federal Confidentiality of Alcohol and Drug Abuse Patient Records regulations: The Federal rules restrict any use of the information to criminally investigate or prosecute any alcohol or drug abuse patient.[facility] HospitalIn the event this information is protected by the Federal Confidentiality of Alcohol and Drug Abuse Patient Records regulations: The Federal rules restrict any use of the information to criminally investigate or prosecute any alcohol or drug abuse patient.[facility] HospitalIn the event this information is protected by the Federal Confidentiality of Alcohol and Drug Abuse Patient Records regulations: The Federal rules restrict any use of the information to criminally investigate or prosecute any alcohol or drug abuse patient.[facility] HospitalIn the event this information is protected by the Federal Confidentiality of Alcohol and Drug Abuse Patient Records regulations: The Federal rules restrict any use of the information to criminally investigate or prosecute any alcohol or drug abuse patient.[facility] HospitalIn the event this information is protected by the Federal Confidentiality of Alcohol and Drug Abuse Patient Records regulations: The Federal rules restrict any use of the information to criminally investigate or prosecute any alcohol or drug abuse patient.[facility] HospitalIn the event this information is protected by the Federal Confidentiality of Alcohol and Drug Abuse Patient Records regulations: The Federal rules restrict any use of the information to criminally investigate or prosecute any alcohol or drug abuse patient.[facility] HospitalIn the event this information is protected by the Federal Confidentiality of Alcohol and Drug Abuse Patient Records regulations: The Federal rules restrict any use of the information to criminally investigate or prosecute any alcohol or drug abuse patient.[facility] HospitalIn the event this information is protected by the Federal Confidentiality of Alcohol and Drug Abuse Patient Records regulations: The Federal rules restrict any use of the information to criminally investigate or prosecute any alcohol or drug abuse patient.[facility] HospitalIn the event this information is protected by the Federal Confidentiality of Alcohol and Drug Abuse Patient Records regulations: The Federal rules restrict any use of the information to criminally investigate or prosecute any alcohol or drug abuse patient.[facility] HospitalIn the event this information is protected by the Federal Confidentiality of Alcohol and Drug Abuse Patient Records regulations: The Federal rules restrict any use of the information to criminally investigate or prosecute any alcohol or drug abuse patient.[facility] HospitalIn the event this information is protected by the Federal Confidentiality of Alcohol and Drug Abuse Patient Records regulations: The Federal rules restrict any use of the information to criminally investigate or prosecute any alcohol or drug abuse patient.[facility] HospitalIn the event this information is protected by the Federal Confidentiality of Alcohol and Drug Abuse Patient Records regulations: The Federal rules restrict any use of the information to criminally investigate or prosecute any alcohol or drug abuse patient.[facility] HospitalIn the event this information is protected by the Federal Confidentiality of Alcohol and Drug Abuse Patient Records regulations: The Federal rules restrict any use of the information to criminally investigate or prosecute any alcohol or drug abuse patient.[facility] HospitalIn the event this information is protected by the Federal Confidentiality of Alcohol and Drug Abuse Patient Records regulations: The Federal rules restrict any use of the information to criminally investigate or prosecute any alcohol or drug abuse patient.[facility] HospitalIn the event this information is protected by the Federal Confidentiality of Alcohol and Drug Abuse Patient Records regulations: The Federal rules restrict any use of the information to criminally investigate or prosecute any alcohol or drug abuse patient.[facility] HospitalIn the event this information is protected by the Federal Confidentiality of Alcohol and Drug Abuse Patient Records regulations: The Federal rules restrict any use of the information to criminally investigate or prosecute any alcohol or drug abuse patient.[facility] HospitalIn the event this information is protected by the Federal Confidentiality of Alcohol and Drug Abuse Patient Records regulations: The Federal rules restrict any use of the information to criminally investigate or prosecute any alcohol or drug abuse patient.[facility] HospitalIn the event this information is protected by the Federal Confidentiality of Alcohol and Drug Abuse Patient Records regulations: The Federal rules restrict any use of the information to criminally investigate or prosecute any alcohol or drug abuse patient.[facility] HospitalIn the event this information is protected by the Federal Confidentiality of Alcohol and Drug Abuse Patient Records regulations: The Federal rules restrict any use of the information to criminally investigate or prosecute any alcohol or drug abuse patient.[facility] Reason for Visit (unrecogniz ed section and content) Reason Comments Referral Request Reason Comments Spirometry Specialty Diagnoses / Procedures Referred By Contac t Referred To Contact [facility] Diagnoses Moderate persistent asthma without complication Procedures SPIROMETRY BASELINE ONLY SPMTRY W/VC EXPIRATORY JEWEL W/WO MXML VOL VNTJ Jamilah Galvan PA-C [address] [place] [address] [address] Referral ID Status Reason Start Date Expiration Date V isits Requested Visits Authorized [id number] Closed Auto-Generate d Referral 07/17/2021 08/16/2022 1 1 Specialty Diagnoses / Procedures Referred By Contac t Referred To Contact [facility] Diagnoses Moderate persistent asthma without complication Procedures NITRIC OXIDE, EXHALED NITRIC OXIDE GAS DETERMINATION Jamilah Galvan PA-C [address] [place] [address] [address] Referral ID Status Reason Start Date Expiration Date V isits Requested Visits Authorized [id number] Closed Auto-Generate d Referral 07/17/2021 08/16/2022 1 1 Reason Comments Established Patient 6 month follow up as thma Reason Comments Recheck Reason Comments Patient Update Reason Onset Date Comments Transition Of Care 04/09/2022 Reason Comments Hospital F/U [facility] Reason Comments Follow Up Reason Comments Patient Question Reason Comments Medication Problem Breo Reason Onset Date Comments Refill Request 06/28/2022 Reason Comments New Patient Evaluation Specialty Diagnoses / Procedures Referred By Contac t Referred To Contact Diagnoses Bipolar affective disorder, remission status unspecified (HCC) Procedures CONSULT TO PSYCHIATRY OFFICE/OUTPATIENT NEW HIGH MDM 60-74 MINUTES Older, Joanna, EMERGENCY SPECIALIST.RESEARCH MANAGEMENT ASSOCIATE [address] [place] [address] Referral ID Status Reason Start Date Expiration Date Visits Requested Visits Authorized [id number] Pending Review PCP Requested Referral 06/01/2022 06/01/2023 1 1 Reason Comments Established Patient 6 month follow up Asthma Specialty Diagnoses / Procedures Referred By Contac t Referred To Contact [facility] Diagnoses SOB (shortness of breath) Procedures SPIROMETRY BASELINE ONLY SPMTRY W/VC EXPIRATORY JEWEL W/WO MXML VOL VNTTalia Francois MD [address] [place] [address] Respiratory [place] [address] [place] [address] Referral ID Status Reason Start Date Expiration Date V isits Requested Visits Authorized [id number] Closed Auto-Generate d Referral 07/19/2022 08/18/2023 1 1 Reason Comments Follow Up Specialty Diagnoses / Procedures Referred By Contac t Referred To Contact Psychiatry / ADULT PSYCHIATRY Diagnoses Follow up Procedures VIDEO PSYC/PSYL EST Claude, Joanna, EMERGENCY SPECIALIST.RESEARCH MANAGEMENT ASSOCIATE [address] [place] [address] Seda Quiroz, EMERGENCY SPECIALIST.RESEARCH MANAGEMENT ASSOCIATE [address] [place] [address] Referral ID Status Reason Start Date Expiration Date V isits Requested Visits Authorized [id number] Pending Review 08/23/2022 05/05/2023 30 30 Reason Comments Results Reason Comments Letter Reason Comments Established Patient Diabetic Foot Care Reason Comments Refill Request Reason Comments Express Care follow-up Reason Onset Date Comments Refill Request 03/09/2023 Specialty Diagnoses / Procedures Referred By Contac t Referred To Contact Psychiatry / ADULT PSYCHIATRY Diagnoses FOLLOW UP Procedures EST PSYC ADULT Jericho Tinoco MD [address] [place] [address] Seda Quiroz, EMERGENCY SPECIALIST.RESEARCH MANAGEMENT ASSOCIATE [address] [place] [address] Referral ID Status Reason Start Date Expiration Date V isits Requested Visits Authorized [id number] Pending Review 04/02/2023 07/01/2023 1 1 Care Teams (unrecognized sec tion and content) Merchandise Flow Team Member Relationship Specialty Start Date End Date Jericho Tinoco MD [address] [place] [address] PCP - General Internal Medicine 05/26/15 Merchandise Flow Team Member Relationship Specialty Start Date End Date Jericho Tinoco MD [address] [place] [address] PCP - General Internal Medicine 05/26/15 Merchandise Flow Team Member Relationship Specialty Start Date End Date Jericho Tinoco MD [facility] [place] [address] PCP - General Internal Medicine 05/26/15 Merchandise Flow Team Member Relationship Specialty Start Date End Date Jericho Tinoco MD [facility] [place] [address] PCP - General Internal Medicine 05/26/15 Merchandise Flow Team Member Relationship Specialty Start Date End Date Jericho Tinoco MD [address] [place] [address] PCP - General Internal Medicine 05/26/15 Merchandise Flow Team Member Relationship Specialty Start Date End Date Jericho Tinoco MD [address] [place] [address] PCP - General Internal Medicine 05/26/15 Merchandise Flow Team Member Relationship Specialty Start Date End Date Jericho Tinoco MD [facility] [place] [address] PCP - General Internal Medicine 05/26/15 Merchandise Flow Team Member Relationship Specialty Start Date End Date Jericho Tinoco MD [facility] [place] [address] PCP - General Internal Medicine 05/26/15 Merchandise Flow Team Member Relationship Specialty Start Date End Date Jericho Tinoco MD [address] [place] [address] PCP - General Internal Medicine 05/26/15 Merchandise Flow Team Member Relationship Specialty Start Date End Date Jericho Tinoco MD [address] [place] [address] PCP - General Internal Medicine 05/26/15 Merchandise Flow Team Member Relationship Specialty Start Date End Date Jericho Tinoco MD [address] [place] [address] PCP - General Internal Medicine 05/26/15 Merchandise Flow Team Member Relationship Specialty Start Date End Date Jericho Tinoco MD [address] [place] [address] PCP - General Internal Medicine 05/26/15 Merchandise Flow Team Member Relationship Specialty Start Date End Date Jericho Tinoco MD [address] [place] [address] PCP - General Internal Medicine 05/26/15 Merchandise Flow Team Member Relationship Specialty Start Date End Date Jericho Tinoco MD [address] [place] [address] PCP - General Internal Medicine 05/26/15 Merchandise Flow Team Member Relationship Specialty Start Date End Date Jericho Tinoco MD [address] [place] [address] PCP - General Internal Medicine 05/26/15 Merchandise Flow Team Member Relationship Specialty Start Date End Date Jericho Tinoco MD [address] [place] [address] PCP - General Internal Medicine 05/26/15 Merchandise Flow Team Member Relationship Specialty Start Date End Date Jericho Tinoco MD [address] [place] [address] PCP - General Internal Medicine 05/26/15 Merchandise Flow Team Member Relationship Specialty Start Date End Date Jericho Tinoco MD [address] [place] [address] PCP - General Internal Medicine 05/26/15 Merchandise Flow Team Member Relationship Specialty Start Date End Date Jericho Tinoco MD [address] [place] [address] PCP - General Internal Medicine 05/26/15 Merchandise Flow Team Member Relationship Specialty Start Date End Date Jericho Tinoco MD [address] [place] [address] PCP - General Internal Medicine 05/26/15 Merchandise Flow Team Member Relationship Specialty Start Date End Date Jericho Tinoco MD [address] [place] [address] PCP - General Internal Medicine 05/26/15 Merchandise Flow Team Member Relationship Specialty Start Date End Date Jericho Tinoco MD [address] [place] [address] PCP - General Internal Medicine 05/26/15 Merchandise Flow Team Member Relationship Specialty Start Date End Date Jericho Tinoco MD [address] [place] [address] PCP - General Internal Medicine 05/26/15 Merchandise Flow Team Member Relationship Specialty Start Date End Date Jericho Tinoco MD [address] [place] [address] PCP - General Internal Medicine 05/26/15 Merchandise Flow Team Member Relationship Specialty Start Date End Date Jericho Tinoco MD [address] [place] [address] PCP - General Internal Medicine 05/26/15 Merchandise Flow Team Member Relationship Specialty Start Date End Date Jericho Tinoco MD [address] [place] [address] PCP - General Internal Medicine 05/26/15 Merchandise Flow Team Member Relationship Specialty Start Date End Date Jericho Tinoco MD [address] [place] [address] PCP - General Internal Medicine 05/26/15 Merchandise Flow Team Member Relationship Specialty Start Date End Date Jericho Tinoco MD [address] [place] [address] PCP - General Internal Medicine 05/26/15 Merchandise Flow Team Member Relationship Specialty Start Date End Date Jericho Tinoco MD [address] [place] [address] PCP - General Internal Medicine 05/26/15 Merchandise Flow Team Member Relationship Specialty Start Date End Date Jericho Tinoco MD [address] [place] [address] PCP - General Internal Medicine 05/26/15 Care Team (unrecognized sect ion and content) Care Team Personnel Name: JERICHO TINOCO MD Member Role: Primary Care Physician Address: Address: [address] [place] [address]- [place] Name: ROBIN RIGGS MD Position: ED Physician Member Role: ED Physician Address: Address: [address] [place] [address]- [place] Name: KWADWO Padilla Position: ED RN Member Role: ED RN Care Team Related Persons Name: AARON FLORES Care Team Personnel Name: JERICHO TINOCO MD Member Role: Primary Care Physician Address: Address: [facility] [place] [address]- Care Team Related Persons Name: AARON FLORES [...] BE BASED ON THE PRIMARY CLINICAL RECORDS. [employer] provides no warranty or guarantee of the accuracy or completeness of information in this document.
--- NOTE | 2023-05-31 03:24 | ED.RN ---
I called report called to [facility], in ICU at this time. I was notified that they were ready for the patient.
[2023-05-31 04:19] LABS: Hematocrit 32.3 % (37-47); Mean Corp Hgb Conc 34.1 g/dL (32-36); Mean Corpuscular Hgb 33.1 pg (27.0-32.0); Mean Corpuscular Volume 97.3 fL (81-99); Mean Platelet Vol. 11.2 fl (6.2-12.0); POSITIVE COUNT YES; POSITIVE MORPHOLOGY YES; Platelet Count 205 K/mm3 (150-450); RBC Distribution Width CV 15.2 % (11.6-14.6); RBC Distribution Width SD 53.8 fl (35.1-43.9); Red Blood Count 3.32 M/mm3 (4.2-5.4)
[2023-05-31 04:22] LABS: Differential Indicated MANUAL DIFF
[2023-05-31] MEDS: Nystatin Powder 15gm Bottle 1 APPLIC TOPICAL ×2 (04:33→21:22)
[2023-05-31] MEDS: Piperacil/Tazobactam 3.375 GM in 0.9% Normal Saline (50mL MB+) 50 ML IV ×3 (04:33→21:20)
[2023-05-31] MEDS: 0.9% Saline Lock 10 ML Syringe IV ×2 (04:33→11:47)
[2023-05-31] MEDS: dexAMETHasone 10 MG/ML Vial 6 MG IV (04:34)
[2023-05-31] MEDS: Potassium Chloride Oral Tablet 20 MEQ 40 MEQ PO (04:34)
[2023-05-31 04:38] LABS: ALB/GLOB Ratio 0.6 RATIO (0.9-2.4); AST(SGOT) 39 U/L (15-37); Alanine Aminotransfer ALT/SGPT 27 U/L (13-56); Albumin, Serum 2.4 g/dL (3.2-5.0); Alkaline Phosphatase 97 U/L (45-117); Anion Gap 4 (5-15); BUN 23 mg/dL (7-18); BUN/Creat Ratio 15.2 RATIO (10-20); Calcium,Total 7.9 mg/dL (8.5-10.1); Chloride 101 mmol/L (98-107); Creatinine, Serum 1.51 mg/dL (0.55-1.02); EST Glomerular Filtration Rate 38 mL/min (>60); Est Glom Filt Rate - Afr Amer 46 mL/min (>60); Estimated Creatinine Clearance 49.34 ml/min; Globulin 4.1 g/dL (2.2-4.2); Glucose 157 mg/dL (74-106); Potassium 3.5 mmol/L (3.5-5.1); Protein, Total 6.5 g/dL (6.4-8.2); Sodium Level 135 mmol/L (136-145)
[2023-05-31 04:48] LABS: Eosinophil 1 % (0-5); Lymphocyte 16 % (19-41); Metamyelocyte 2 % (0-1); Monocyte 2 % (0-10); Neutrophil-Band 2 % (0-5); Neutrophil-Segmented 77 % (47-70); Total Cells Counted 100 (MANUAL DIFF)
[2023-05-31 04:49] LABS: Absolute Neutrophil Count 8.7 X10^3/uL (2.0-7.7); Neutrophil # 8.71 X10^3/uL (2.7-7.7)
[2023-05-31 04:50] LABS: Absolute Lymphocyte Count 1.76 X10^3/uL (0.83-4.51); Lymphocyte # 1.76 X10^3/ul (0.83-4.51); Platelet Estimate ADEQUATE (ADEQ); Red Cell Morphology NORM C+C NORMAL (NORM C&C)
[2023-05-31] MEDS: CHLORHEXIDINE GLUC 2% CLOTH 1 EACH TOWELETTE TOPICAL (05:51)
--- NOTE | 2023-05-31 07:07 | CT_ITS ---
STUDY: CTA CHEST REASON FOR EXAM: Female, 58 years old. Respiratory Failure, recent COVID, r/o PE RADIATION DOSAGE (If Supplied By Facility): CTDIvol = ( 13.85 ) mGy, DLP = ( 510.96 ) mGycm TECHNIQUE: The examination was performed with the intravenous administration of IV 75mL Isovue-370. Post-processing of the angiographic images was performed, with multiplanar reformation and 3D reconstruction. Individualized dose optimization techniques were used for this CT. COMPARISON: Prior study dated: 05/26/2023 FINDINGS: Normal enhancement of the main pulmonary artery and right and left pulmonary arteries. There is limited evaluation of the bilateral peripheral pulmonary arteries due to artifacts. There is no demonstrated central pulmonary embolism. There is atherosclerotic calcification of the aortic arch. There is no demonstrated aortic dissection. Normal heart and pericardium. Prominent subcarinal mediastinal lymph nodes. Small right hilar node is seen. Normal visualized trachea and bronchi. Diffuse patchy bilateral infiltrates are again seen for the most part unchanged since prior exam although there are some areas of improvement and some areas of worsening infiltrates. Superimposed scattered subsegmental atelectatic changes. There are no pleural effusions. Normal chest wall structures. There are degenerative changes of thoracic spine. Normal visualized upper abdomen. CT/CTA Chest W/WO Contrast IMPRESSION: 1. No evidence of pulmonary embolism or aortic dissection. 2. Extensive bilateral infiltrates for the most part unchanged the prior examination concerning for pneumonia. 3. Mediastinal adenopathy likely reactive. Electronically Signed: Farhan Kumar MD at 8:39 EST ,
--- NOTE | 2023-05-31 07:07 | ECHOCS_ITS ---
Reason For Study: Dyspnea, SOB Procedure This was a 2D Doppler, Color Flow transthoracic echocardiogram. The study was technically difficult. Contrast injection was performed. Patient scanned sitting upright due to SOB. Exam performed portable in ICU/CCU. Left Ventricle Normal LV size. The estimated ejection fraction is 65 %. No evidence for diastolic dysfunction. No regional wall motion abnormalities noted. Right Ventricle Normal RV size. Normal systolic function. Atria Normal left atrium. Normal right atrium. No doppler evidence for ASD. Mitral Valve There is no mitral valve stenosis. No mitral valve insufficiency. Tricuspid Valve There is no tricuspid stenosis. Trivial tricuspid valve insufficiency. Pulmonary artery systolic pressure is 25 mmHg. Aortic Valve Trisinus/trileaflet aortic valve. There is no aortic stenosis. Trivial aortic valve insufficiency. Pulmonic Valve There is no pulmonic valvular stenosis. No pulmonic valve insufficiency. Great Vessels Normal aortic root. Pericardium/Pleural No pericardial effusion. Medication Diluted definity 2ml given slow IV push to enhance endocardial definition. MMode/2D Measurements & Calculations LVIDd: 5.3 cm IVSd: 0.95 cm LVOT diam: 2.0 cm LVIDs: 3.4 cm LVPWd: 1.0 cm FS: 36.2 % LVOT area: 3.2 cm2 Ao root diam: 2.9 cm LAV(MOD-bp): 65.4 ml LA A4 area: 21.8 cm2 LA dimension: 4.2 cm LAV(MOD-bp) Indexed: 30.9 ml/m2 LAV(MOD-sp2): 58.3 ml LAV(MOD-sp4): 62.6 ml TAPSE: 2.2 cm Time Measurements MV dec time: 0.26 sec Doppler Measurements & Calculations MV E max wilmer: 86.9 cm/sec Lat Peak E' Wilmer: 9.8 cm/sec Med Peak E' Wilmer: 9.4 cm/sec MV A max wilmer: 72.8 cm/sec E/E' lat: 8.8 E/E' med: 9.3 MV E/A: 1.2 MV V2 max: 124.5 cm/sec MV P1/2t max wilmer: 123.4 cm/sec Ao V2 max: 249.6 cm/sec MV max P.2 mmHg MV P1/2t: 105.6 msec Ao max P.9 mmHg MV V2 mean: 55.4 cm/sec MV dec slope: 342.4 cm/sec2 Ao V2 mean: 148.9 cm/sec MV mean P.6 mmHg MVA(P1/2t): 2.1 cm2 Ao mean P.9 mmHg MV V2 VTI: 40.2 cm Ao V2 VTI: 46.9 cm MVA(VTI): 2.9 cm2 AV (velocity ratio): 0.77 ROSANNE(I,D): 2.5 cm2 ROSANNE(V,D): 2.2 cm2 AI max wilmer: 387.4 cm/sec LV V1 max: 171.5 cm/sec MR max wilmer: 389.2 cm/sec AI max P.0 mmHg LV V1 max P.8 mmHg MR max P.6 mmHg LV V1 mean P.4 mmHg AI dec slope: 149.5 cm/sec2 LV V1 mean: 105.7 cm/sec AI P1/2t: 758.9 msec LV V1 VTI: 36.3 cm SV(LVOT): 117.0 ml PA V2 max: 114.1 cm/sec TR max wilmer: 215.0 cm/sec PA V2 mean: 78.0 cm/sec TR max P.5 mmHg ECHO/Echo Complete W/ Contrast Interpretation Summary The estimated ejection fraction is 65 %. No evidence for diastolic dysfunction. Trivial aortic valve insufficiency. Ordering Physician: Dionte Dias Referring Physician: Jericho Nieves M.D. Performed By: Jose Enrique Goodrich RCS
--- NOTE | 2023-05-31 07:29 | PCM.PN.HOSP ---
Reason for Visit Reason for Visit: Diagnoses Acute respiratory failure with hypoxia (05/31/23) Subjective Subjective Patient is a 58-year-old lady admitted with progressive shortness of breath diagnosed with COVID 19 pneumonia with COPD and asthma exacerbation. Patient was discharged 2 days prior to her readmission. Was recommended for patient to be discharged to longterm facility she declined. Presented back to the emergency department with worsening respiratory failure Objective Data Objective Data Vital Signs: Vital Signs Temp Pulse Resp BP Pulse Ox O2 Del Method O2 Flow Rate 98.6 F 67 25 H 109/54 L 97 Bi-pap 11 05/31/23 05:00 05/31/23 07:00 05/31/23 07:00 05/31/23 07:00 05/31/23 07:00 05/31/23 07:00 05/31/23 01:21 FiO2 50 05/31/23 07:00 Oxygen Flow Rate (L/min) 11 Oxygen Delivery Method Bi-pap Weight: 118.4 kg Body Mass Index (BMI) 49.3 Intake & Output: Intake and Output for Last 24 Hours 05/29/23 05/30/23 05/31/23 23:59 23:59 23:59 Intake Total 60 / 60 Balance 60 / 60 Lab / Micro Data 05/31/23 04:05 05/31/23 04:05 Labs: Laboratory Results - last 24 hr 05/31/23 01:30: WBC 8.4, RBC 3.29 L, Hgb 10.9 L, Hct 31.8 L, MCV 96.7, MCH 33.1 H, MCHC 34.3, RDW Std Deviation 52.8 H, RDW Coeff of Erlinda 15.0 H, Plt Count 198, MPV 11.1, Neut % (Auto) Not Reportable, Absolute Neuts (auto) 6.3, Absolute Lymphs (auto) 1.75, Total Counted 100, Neutrophils % (Manual) 68, Band Neutrophils % 1, Lymphocytes % (Manual) 21, Monocytes % (Manual) 2, Eosinophils % (Manual) 1, Metamyelocytes % 5 H, Myelocytes % 2 H, Nucleated RBCs/100 WBC 3, Diff Path Review September, Platelet Estimate ADEQUATE, RBC Morphology NORM C+C, Sodium 134 L, Potassium 3.4 L, Chloride 101, Carbon Dioxide 29.0, Anion Gap 4 L, BUN 22 H, Creatinine 1.35 H, Estim Creat Clear Calc 55.80, Est GFR (MDRD) Af Amer 52 L, Est GFR (MDRD) Non-Af 43 L, BUN/Creatinine Ratio 16.3, Glucose 157 H, Calcium 8.1 L, Magnesium 2.2, Troponin I High Sens 9, B-Natriuretic Peptide 44.8 05/31/23 04:05: WBC 11.0, RBC 3.32 L, Hgb 11.0 L, Hct 32.3 L, MCV 97.3, MCH 33.1 H, MCHC 34.1, RDW Std Deviation 53.8 H, RDW Coeff of Erlinda 15.2 H, Plt Count 205, MPV 11.2, Neut % (Auto) Not Reportable, Absolute Neuts (auto) 8.7 H, Absolute Lymphs (auto) 1.76, Total Counted 100, Neutrophils % (Manual) 77 H, Band Neutrophils % 2, Lymphocytes % (Manual) 16 L, Monocytes % (Manual) 2, Eosinophils % (Manual) 1, Metamyelocytes % 2 H, Diff Path Review September, Platelet Estimate ADEQUATE, RBC Morphology NORM C+C, Sodium 135 L, Potassium 3.5, Chloride 101, Carbon Dioxide 30.0, Anion Gap 4 L, BUN 23 H, Creatinine 1.51 H, Estim Creat Clear Calc 49.34, Est GFR (MDRD) Af Amer 46 L, Est GFR (MDRD) Non-Af 38 L, BUN/Creatinine Ratio 15.2, Glucose 157 H, Calcium 7.9 L, Total Bilirubin 1.10 H, AST 39 H, ALT 27, Alkaline Phosphatase 97, Total Protein 6.5, Albumin 2.4 L, Globulin 4.1, Albumin/Globulin Ratio 0.6 L ABG Data ABG results: ABG 05/31/23 01:52 Specimen Type ART Sample Site L Radial pH 7.45 Bicarbonate Actual 31.0 H Total CO2 32 Base Excess 7 H O2 Saturation 92 L O2 % 60.0 ABG pCO2 44.9 ABG pO2 62 L Teddy Test Positive O2 Delivery Device BiPAP Vent Mode Not entered Clinical Comments 17/12 12 60% Radiography Diagnostic Testing: Radiology Impression Chest X-Ray 05/31/23 01:50 IMPRESSION: Bilateral airspace disease pneumonia versus edema. Electronically Signed: Rita Ramsay MD at 2:11 EST , Rhythm Strip Rhythm Strip: Sinus Rhythm Rate: 80 Ectopy: None Physical Exam Narrative GENERAL: Patient on BiPAP HEENT: Atraumatic; normocephalic EYES; Anicteric, Normal Conjunctiva NECK; supple, normal thyroid, RESPIRATORY: Diminished to auscultation CARDIOVASCULAR: Regular S1 S2, GI: soft, normoactive bowel sounds, : No Renal angle tenderness; EXTREMITIES: No edema, no clubbing, MUSCULOSKELETAL: no muscle wasting NEURO: Awake; no lateralizing signs. SKIN: No Rash PSYCH; Flat affect Assessment & Plan Assessment/Plan (1) Acute hypoxemic respiratory failure: PLAN: Plan Patient is a 58-year-old lady admitted with progressive shortness of breath diagnosed with COVID 19 pneumonia with COPD and asthma exacerbation. Patient was discharged 2 days prior to her readmission. Was recommended for patient to be discharged to longterm facility she declined. Presented back to the emergency department with worsening respiratory failure 1. Acute hypoxic respiratory failure ? Secondary to combination of COVID-19 pneumonia COPD? Exacerbation. Managed on noninvasive ventilation with consultation placed to pulmonary medicine. CTA of the chest ordered to rule out PE. Case discussed with Dr. Dias with intensive care. 2. Recent acute COVID-19 infection -Patient remains in isolation 3. Suspected superimposed bacterial pneumonia ? CAT scan obtained demonstrated diffuse bilateral airspace opacification. Patient managed with broad-spectrum antibiotic therapy with vancomycin as well as Zosyn 4. COPD/asthma exacerbation ? Managed with bronchodilator treatment regimen systemic steroid as well as antibiotics as discussed above 5. Mild hyponatremia ? Secondary to hypovolemic hyponatremia monitoring with daily BMPs 6. Acute kidney injury ? Creatinine on discharge was 1.1, creatinine on admission was 1.51 started on IV hydration with monitoring of electrolyte 7. Coronary artery disease ? With PCI to proximal LAD and distal RCA on 05/17/2022 did continue guideline directed medical therapy 8. Hypertension - Blood pressure controlled, home medications continued with dose adjustment as needed 9. Dyslipidemia -Patient is on statin therapy, continued at home dose 10. Class III obesity with BMI of 50 ? Complicating care weight loss advised 11. Diabetes mellitus type II -patient's oral hypoglycemics held. Placed on long acting insulin, Accu-Cheks a.c. and at bedtime and covered with sliding scale insulin 12. Anemia - Secondary to chronic disorder monitoring H&H and transfuse if patient becomes symptomatic or hemoglobin falls below 7 13. Rheumatoid arthritis ? Patient is on methotrexate at home which is currently being held 14. Obstructive sleep apnea ? Patient is on nocturnal CPAP at home 15. Chronic pain syndrome ? Patient is on bupropion as well as Lyrica 16. GERD ? Patient is on PPI 17. Bipolar disorder ? Did continue patient psychotropic medications 18. Depression with anxiety ? Continue home meds 19. DVT prophylaxis ? SC Lovenox Time spent in the patient's overall evaluation,decision-making process, review of diagnostic data, adjustment of management, discussion with other providers, nursing nursing and ancillary staff involved in patient's care documentation 50 Minutes Charges/Coding Visit Charges Inpatient E&M: 30869 Disch Hosp >30min
[2023-05-31] MEDS: dexAMETHasone 4 MG Tablet 6 MG PO (07:39)
[2023-05-31] MEDS: lamoTRIgine 100 MG Tablet PO (07:39)
[2023-05-31] MEDS: Aspirin E.C. 81 MG Tablet PO (07:39)
[2023-05-31] MEDS: Escitalopram Oxalate 20 MG Tablet 30 MG PO (07:39)
[2023-05-31] MEDS: Losartan Potassium 50 MG Tablet PO (07:39)
[2023-05-31] MEDS: Carvedilol 6.25 MG Tablet PO (07:39)
[2023-05-31] MEDS: Clopidogrel Bisulfate 75 MG Tablet PO (07:40)
[2023-05-31] MEDS: Pantoprazole Sodium 40 MG Tablet PO (07:40)
[2023-05-31] MEDS: Enoxaparin 40 MG/0.4 ML Syringe SC ×2 (07:40→21:20)
[2023-05-31 08:15] LABS: Procalcitonin 0.24 ng/mL (0.00-0.09)
--- NOTE | 2023-05-31 08:33 | EX.PCM.CONCC ---
Assessment & Plan Assessment/Plan (1) Acute hypoxemic respiratory failure: PLAN: Plan RECOMMENDATIONS: 1. Wean from BiPAP therapy as tolerated. Recommend PAP therapy with naps and nightly, per home regimen. 2. Supplemental oxygen for saturations greater than 90%. 3. Continue scheduled bronchodilators and steroids. 4. Continue empiric antimicrobials, pending repeat infectious workup. 5. Check respiratory viral panel. 6. Obtain echocardiogram 7. Continue appropriate DVT prophylaxis. 8. Encourage incentive spirometer use and mobilize patient as tolerated. IMPRESSIONS: 1. Acute hypoxemic respiratory failure The patient was just discharged from the hospital 2 days ago after having been admitted with a respiratory failure, which was felt to be secondary to an asthma exacerbation precipitated by COVID-19 pneumonia. There was also concern for a secondary bacterial pneumonia. Therefore, the patient was treated with antibiotics and Decadron during that hospitalization. She was ultimately discharged home on 6 L/min of supplemental oxygen. However, there was an issue with her supplemental oxygen being delivered to her house in time. Therefore, it is suspected that the patient was without supplemental O2 for period of time. I do suspect that this is a likely contributing factor to her repeat hospitalization. CTA chest completed earlier this morning demonstrated no central PE, with bilateral airspace opacities which appear quite similar to her prior chest imaging. For now, it is reasonable to continue antibiotics, pending repeat infectious workup. Echocardiogram will also be obtained. Plan to continue scheduled bronchodilators and IV steroids. The patient can be weaned from BiPAP therapy, as tolerated, with supplemental oxygen weaned to maintain saturations at or above 90%. 2. History of obstructive sleep apnea Continue nocturnal PAP therapy per home regimen. 3. Morbid obesity/tobacco dependency/rheumatoid arthritis/chronic pain syndrome/coronary artery disease/hypertension Complicates care, management, recovery and prognosis. Continue supportive care as noted above. This note was generated with [employer] dictation software. It may contain incorrect words, spelling, and punctuation that were not noted in checking the note before signing. HPI Consult Data Date of Consult: 05/31/23 HPI Narrative Reason for Consultation: Respiratory failure HPI Narrative: The patient is a 58-year-old female, with a history as outlined below, who presented to the emergency department on May 31 with worsening dyspnea. The patient does have a tobacco abuse history of 0.5 packs of cigarettes per day. She apparently follows with an outside silver designer through [facility]. She has a history of asthma and obstructive sleep apnea, for which she currently utilizes nocturnal CPAP therapy. The patient was just discharged from the hospital on May 29 after having been admitted with acute hypoxemic respiratory failure secondary to COVID-19 pneumonia. It was recommended that the patient be placed at a nursing facility at the time of her discharge from her last hospitalization. However, the patient refused opting to go home. There is some concern that her supplemental oxygen did not arrive at the time she was discharged home. Therefore, she may have been without supplemental O2 for a period of time. On presentation to the emergency department, the patient was noted to be afebrile and hemodynamically stable. Initial laboratory evaluation revealed a normal white blood cell count with baseline anemia. Platelet count was normal. Chemistry profile was notable only for a potassium of 3.4. Creatinine was noted to be 1.35. Troponin and BNP were normal. Chest x-ray demonstrated bilateral airspace opacities. The patient was initially placed on BiPAP therapy. Follow-up arterial blood gas demonstrated a pH of 7.45 with a pCO2 of 45 and pO2 of 62. The patient was subsequently admitted to the medical intensive care unit for further management. [facility] Medical History Anxiety and depression Atherosclerotic heart disease of [place] coronary artery without angina pectoris Back pain Bipolar disorder Cardiac arrest with ventricular fibrillation Cardiomyopathy Coronary artery disease CPAP (continuous positive airway pressure) dependence Degeneration of intervertebral disc of lumbosacral region Diabetes mellitus, type II Essential hypertension Hiatal hernia HLD (hyperlipidemia) Hypertension Lumbar facet arthropathy Lumbosacral spondylosis Migraines Obesity (BMI 30-39.9) Osteoarthritis Post-menopausal Presence of stent in coronary artery (~05/17/22) Seizures Sleep apnea Smoker ST elevation (STEMI) myocardial infarction Home Medications nitroglycerin 0.4 mg sublingual tablet 0.4 mg sublingual Q5M PRN CHEST PAIN #30 tabs 04/06/22 [Rx Last Taken Unknown] escitalopram oxalate 20 mg tablet 30 mg PO DAILY DEPRESSION 05/08/22 [History Last Taken 05/17/22] pregabalin 75 mg capsule 75 mg PO BID PAIN 05/08/22 [History Last Taken 05/17/22] aspirin 81 mg tablet,delayed release 81 mg PO DAILY@0800 [facility] #90 tabs 06/05/22 [Rx Last Taken 05/20/23] atorvastatin 40 mg tablet 40 mg PO QHS CHOLESTEROL #90 tabs 06/05/22 [Rx Last Taken 05/20/23] carvedilol 6.25 mg tablet 6.25 mg PO BID HEART #180 tabs 06/05/22 [Rx Last Taken 05/21/23] methotrexate sodium 2.5 mg tablet 15 mg PO QWEEK RHEUMATOID ARTHRITIS 06/05/22 [History Last Taken Unknown] zolpidem 10 mg tablet (Ambien) 10 mg PO QHS PRN SLEEP 08/29/22 [History Last Taken 05/20/23] albuterol sulfate 90 mcg/actuation aerosol inhaler 2 puff inhalation Q4H PRN SHORTNESS OF BREATH/WHEEZING 05/21/23 [History Last Taken 05/21/23] alprazolam 0.5 mg tablet 0.5 mg PO BID PRN ANXIETY 05/21/23 [History Last Taken 05/20/23] buprenorphine 20 mcg/hour weekly transdermal patch 1 patch transdermal TH SEVERE PAIN 05/21/23 [History Last Taken 05/16/23] clopidogrel 75 mg tablet 75 mg PO DAILY BLOOD THINNER 05/21/23 [History Last Taken 05/19/23] diclofenac sodium 1 % topical gel 2 g topical 4X/DAY PRN PAIN 05/21/23 [History Last Taken 05/20/23] fluticasone furoate 200 mcg-vilanterol 25 mcg/dose inhalation powder (Breo Ellipta) 1 inh inhalation DAILY ASTHMA 05/21/23 [History Last Taken Unknown] lansoprazole 30 mg capsule,delayed release 30 mg PO DAILY ACID REFLUX 05/21/23 [History Last Taken 05/20/23] lidocaine 5 % topical ointment 1 applic topical 4X/DAY PRN PAIN 05/21/23 [History Last Taken Unknown] valbenazine 80 mg capsule (Ingrezza) 80 mg PO DAILY tardive dyskinesia 05/21/23 [History Last Taken 05/20/23] losartan 50 mg tablet 50 mg PO DAILY blood pressure 05/26/23 [History Last Taken Unknown] cefdinir 300 mg capsule 300 mg PO BID #14 caps 05/28/23 [Rx Last Taken Unknown] dexamethasone 6 mg tablet 6 mg PO DAILY #7 tabs 05/28/23 [Rx Last Taken Unknown] amitriptyline 75 mg tablet 75 mg PO QHS 05/31/23 [History Last Taken Unknown] lamotrigine 200 mg tablet See Rx Instructions PO .COMPLEX 05/31/23 [History Last Taken Unknown] Allergy/AdvReac Type Severity Reaction Status Date / Time tramadol HCl [From Ultram] Allergy Rash Verified 05/31/23 01:20 cariprazine [From Vraylar] AdvReac Other Verified 05/31/23 01:20 codeine AdvReac Vomiting Verified 05/31/23 01:20 hydromorphone [From Dilaudid] AdvReac Nausea/Vom/ Verified 05/31/23 01:20 Diarrhea oxycodone HCl [From Percocet] AdvReac Vomiting Verified 05/31/23 01:20 quetiapine [From Seroquel] AdvReac Other Verified 05/31/23 01:20 Family History (Updated 05/31/23 @ 03:[address] Coby Gray MD) Father CHF (congestive heart failure) Cardiomyopathy Heart disease Hypertension Cardiac arrest with ventricular fibrillation Mother CVA (cerebral vascular accident) Diabetes Surgical History History of back surgery History of carpal tunnel surgery Hx of knee surgery Hx of neck surgery Presence of coronary angioplasty implant and graft (~05/17/22) Social History household members: significant other Smoking Status: Current every day smoker tobacco type: cigarettes Smoking packs per day: 0.5 Smoking cigarettes per day: 10.0 alcohol intake: never substance use type: does not use caffeine: Yes Type: carbonated beverages Number of servings: 1 ROS ROS Narrative 10 systems reviewed with pertinent positives as noted in the HPI above. Physical Exam Const alert and no apparent distress Constitutional Narrative: Morbidly obese with BiPAP in place. General Appearance: cooperative HEENT normocephalic and head/scalp atraumatic Eyes PERRL, EOMs intact bilaterally and conjunctivae normal Neck supple General: trachea midline Chest inspection of chest normal Resp normal respiratory effort Auscultation: wheezes and diminished lung sounds Cardio regular rate and regular rhythm GI normal to inspection, nondistended, normoactive bowel sounds Extremity no clubbing, cyanosis or edema Skin no rashes or lesions noted Neuro CN's II-XII intact bilaterally, moves all extremities and no focal motor deficits Psych cooperative and affect normal Lab / Micro Data 05/31/23 04:05 05/31/23 04:05 Labs: Laboratory Results - last 24 hr 05/31/23 01:30: WBC 8.4, RBC 3.29 L, Hgb 10.9 L, Hct 31.8 L, MCV 96.7, MCH 33.1 H, MCHC 34.3, RDW Std Deviation 52.8 H, RDW Coeff of Erlinda 15.0 H, Plt Count 198, MPV 11.1, Neut % (Auto) Not Reportable, Absolute Neuts (auto) 6.3, Absolute Lymphs (auto) 1.75, Total Counted 100, Neutrophils % (Manual) 68, Band Neutrophils % 1, Lymphocytes % (Manual) 21, Monocytes % (Manual) 2, Eosinophils % (Manual) 1, Metamyelocytes % 5 H, Myelocytes % 2 H, Nucleated RBCs/100 WBC 3, Diff Path Review May yudy, Platelet Estimate ADEQUATE, RBC Morphology NORM C+C, Sodium 134 L, Potassium 3.4 L, Chloride 101, Carbon Dioxide 29.0, Anion Gap 4 L, BUN 22 H, Creatinine 1.35 H, Estim Creat Clear Calc 55.80, Est GFR (MDRD) Af Amer 52 L, Est GFR (MDRD) Non-Af 43 L, BUN/Creatinine Ratio 16.3, Glucose 157 H, Calcium 8.1 L, Magnesium 2.2, Troponin I High Sens 9, B-Natriuretic Peptide 44.8 05/31/23 04:05: WBC 11.0, RBC 3.32 L, Hgb 11.0 L, Hct 32.3 L, MCV 97.3, MCH 33.1 H, MCHC 34.1, RDW Std Deviation 53.8 H, RDW Coeff of Erlinda 15.2 H, Plt Count 205, MPV 11.2, Neut % (Auto) Not Reportable, Absolute Neuts (auto) 8.7 H, Absolute Lymphs (auto) 1.76, Total Counted 100, Neutrophils % (Manual) 77 H, Band Neutrophils % 2, Lymphocytes % (Manual) 16 L, Monocytes % (Manual) 2, Eosinophils % (Manual) 1, Metamyelocytes % 2 H, Diff Path Review May yudy, Platelet Estimate ADEQUATE, RBC Morphology NORM C+C, Sodium 135 L, Potassium 3.5, Chloride 101, Carbon Dioxide 30.0, Anion Gap 4 L, BUN 23 H, Creatinine 1.51 H, Estim Creat Clear Calc 49.34, Est GFR (MDRD) Af Amer 46 L, Est GFR (MDRD) Non-Af 38 L, BUN/Creatinine Ratio 15.2, Glucose 157 H, Calcium 7.9 L, Total Bilirubin 1.10 H, AST 39 H, ALT 27, Alkaline Phosphatase 97, Total Protein 6.5, Albumin 2.4 L, Globulin 4.1, Albumin/Globulin Ratio 0.6 L 05/31/23 07:20: Procalcitonin 0.24 H ABG Data ABG results: ABG 05/31/23 01:52 Specimen Type ART Sample Site L Radial pH 7.45 Bicarbonate Actual 31.0 H Total CO2 32 Base Excess 7 H O2 Saturation 92 L O2 % 60.0 ABG pCO2 44.9 ABG pO2 62 L Teddy Test Positive O2 Delivery Device BiPAP Vent Mode Not entered Clinical Comments 17/12 12 60% Rhythm Strip Rhythm Strip: Sinus Rhythm Rate: 80 Ectopy: None Imagaing Radiology Impression Chest X-Ray 05/31/23 01:50 IMPRESSION: Bilateral airspace disease pneumonia versus edema. Electronically Signed: Rita Ramsay MD at 2:11 EST , Charges/Coding Visit Charges Inpatient E&M: 51138 Init Hosp L3
[2023-05-31] MEDS: Menthol/Lanolin/Calamine/Znox 113 GM Tube 1 APPLIC TOPICAL ×2 (09:23→21:22)
[2023-05-31] MEDS: Pregabalin 75 MG Capsule PO ×2 (09:23→21:22)
[2023-05-31 09:47] LABS: M R Staph aureus DNA By PCR Negative (Negative); Probe Check PASS; Specimen Processing Control PASS
[2023-05-31 12:35] LABS: Pathologist Review Reviewed
[2023-05-31 12:36] LABS: Pathologist Review Reviewed
--- NOTE | 2023-05-31 15:20 | CASEMGMT ---
KWADWO BARROSO readmission note: Index admission: Pt admitted 05/21/23 w/SOB and exertional dyspnea. See Flower BURKETT CM, assessment 05/23/23. SNF was recommended @ d/c, but pt adamantly refused. Pt discharged home on 05/29/23 w/O2 through [facility] @ 4 l/m @ rest and 6 l/m w/exertion, script for glucometer, Rx's for medications sent to [facility], and [facility] set up. Per KWADWO Crenshaw CM, note 05/30/23, stating home O2 was delivered to pt's home and pt was wearing it, per sig other, Hossein. Hossein had also stated pt has picked up her medications and that [facility] was out to see pt that day (05/30/23). Current admission: Readmitted 05/31/23 w/resp failure, COVID PNA/? superimposed bacterial PNA. Per H/P, pt had not picked up her medications (including steroid and ATB) @ discharge. KWADWO BARROSO to room. Introduced self and role. O2: Pt currently w/O2 in place via N/C @ 8 l/m. Pt vierifies she did get the home O2 from [facility] on the day of discharge and she has been wearing it, although she states they could not figure out how to bleed the O2 in via her PAP @ HS, so she has just been using the PAP @ [facility] without the O2. She also states she does not think she has a pulse ox @ home. Meds/Glucometer: Pt verifies that she did not get any of her medications or the glucometer after discharge last admission, stating neither her nor her felt well and then their car would not start. She states her neighbor will sometimes help w/errands and would get garbage pick up man her medications for her if she asks, but states she did not think to ask her to get her Rx's for her after last discharge. Pt states, if she would be able to d/c home, if they continue to have car issues, that she will ask her neighbor to garbage pick up man her Rx's and glucometer. She would like to get any new medications from [facility] pharmacy. PCP: Pt states she did not schedule an appt w/Dr Nieves yet, stating she had returned to the ED before getting that scheduled. HHC/SNF: Per Marelny @ [facility], they did not open pt up for HHC, as they had recommended pt come to [facility] ED on the day they went to pt's home for SOC. If pt would return home @ d/c, a new referral would be needed. Pt made aware. She states she is agreeable to going to a SNF short-term @ d/c. Questions answered. Pt states her 1st preference is [facility] and she declines wanting list of other SNF options. Viktoria, discharge physician assistant surgery, and SHAI Jaramillo, made aware. Pt states, if she would improve enough to return home @ d/c or if insurance denies auth for SNF, she would like [facility] and denies wanting list of other HHC options. ---CM to also f/u re: pulse ox and if pt needs one sent home w/her @ d/c, and to follow if pt requires increase in O2 needs. Sig other, Rakesh, can bring in portable O2 tank, per pt. ---CM to follow up with [facility] to have them arrange to meet pt @ her home to educate on how to bleed-in O2 via her PAP. Plan: SNF. Referral to [facility] to be sent today. Holly VAILN RN CM
[2023-05-31] MEDS: lamoTRIgine 100 MG Tablet 200 MG PO (21:21)
[2023-05-31] MEDS: Amitriptyline 25 MG Tablet 75 MG PO (21:21)
[2023-05-31] MEDS: Atorvastatin Calcium 40 MG Tablet PO (21:21)
[2023-06-01] VITALS (22 sets, daily range): BP systolic 103–120; BP diastolic 55–67; PULSE 47–78; RESP 12–24; TEMP 36.4–37.1; O2SAT 94–99; BMI 49.6
[2023-06-01] MEDS: Piperacil/Tazobactam 3.375 GM in 0.9% Normal Saline (50mL MB+) 50 ML IV ×3 (04:51→21:22)
[2023-06-01] MEDS: Nystatin Powder 15gm Bottle 1 APPLIC TOPICAL ×3 (04:52→21:23)
[2023-06-01 05:07] LABS: Hematocrit 29.2 % (37-47); Hemoglobin 9.9 g/dL (12.0-15.0); Mean Corp Hgb Conc 33.9 g/dL (32-36); Mean Corpuscular Hgb 33.1 pg (27.0-32.0); Mean Corpuscular Volume 97.7 fL (81-99); Mean Platelet Vol. 11.3 fl (6.2-12.0); POSITIVE COUNT YES; POSITIVE MORPHOLOGY YES; Platelet Count 189 K/mm3 (150-450); RBC Distribution Width CV 15.3 % (11.6-14.6); RBC Distribution Width SD 54.5 fl (35.1-43.9); Red Blood Count 2.99 M/mm3 (4.2-5.4); White Blood Count 14.2 K/mm3 (4.4-11.0)
[2023-06-01 05:16] LABS: Differential Indicated MANUAL DIFF
[2023-06-01 05:25] LABS: Anion Gap 4 (5-15); BUN 28 mg/dL (7-18); BUN/Creat Ratio 21.9 RATIO (10-20); Calcium,Total 7.6 mg/dL (8.5-10.1); Chloride 100 mmol/L (98-107); Creatinine, Serum 1.28 mg/dL (0.55-1.02); EST Glomerular Filtration Rate 46 mL/min (>60); Est Glom Filt Rate - Afr Amer 55 mL/min (>60); Estimated Creatinine Clearance 58.49 ml/min; Glucose 208 mg/dL (74-106); Magnesium 2.6 mg/dL (1.6-2.6); Phosphorus 3.3 mg/dL (2.5-4.9); Potassium 4.3 mmol/L (3.5-5.1); Sodium Level 134 mmol/L (136-145)
[2023-06-01 05:52] LABS: Lymphocyte 7 % (19-41); Monocyte 10 % (0-10); Myelocyte 2 % (0-0); Neutrophil-Segmented 81 % (47-70); Total Cells Counted 100 (MANUAL DIFF)
[2023-06-01 05:53] LABS: Absolute Lymphocyte Count 0.99 X10^3/uL (0.83-4.51); Absolute Neutrophil Count 11.5 X10^3/uL (2.0-7.7)
[2023-06-01 05:54] LABS: Burr Cells 1+
[2023-06-01] MEDS: Ipratropium/Albuterol Sulfate 3 ML AMPUL.NEB INHALATION ×4 (06:59→19:47)
--- NOTE | 2023-06-01 07:30 | PCM.PN.HOSP ---
Reason for Visit Reason for Visit: Diagnoses Acute respiratory failure with hypoxia (05/31/23) Subjective Subjective Patient seen tolerated BiPAP well during the night. CT of the chest did not show any pulmonary embolism Objective Data Objective Data Vital Signs: Vital Signs Temp Pulse Resp BP Pulse Ox O2 Del Method O2 Flow Rate 98.4 F 51 L 16 104/55 L 94 Bi-pap 8 06/01/23 05:00 06/01/23 07:19 06/01/23 07:19 06/01/23 07:00 06/01/23 07:19 06/01/23 07:00 06/01/23 00:00 FiO2 40 06/01/23 07:19 Oxygen Flow Rate (L/min) 8 Oxygen Delivery Method Bi-pap Weight: 119.3 kg Body Mass Index (BMI) 49.6 Intake & Output: Intake and Output for Last 24 Hours 05/30/23 05/31/23 06/01/23 23:59 23:59 23:59 Intake Total 1035 / 1035 50 / 50 Output Total 1150 / 1150 0 / 0 Balance -115 / -115 50 / 50 Medical Nutrition Assessment Dietitian: Malnutrition Criteria Met Start: 05/31/23 10:14 Freq: Status: Active Protocol: Document 05/31/23 10:14 AG (Rec: 05/31/23 10:15 AG Desktop) Nutrition Malnutrition Evidence of Malnutrition Exists Yes Malnutrition (severe): Acute Illness/Injury Evidenced By Suboptimal Energy Intake ( Severe),Weight Loss (Severe) Clinical Problem Acute Disease or Injury Related Malnutrition Etiology severe, acute malnutrition related to inadequate energy intake d/t resp. failure Signs/Symptoms as evidenced by estimated PO intake meeting <50% of estimated energy needs > 5 days; unintentional 4% wt loss x 9 days Status Active Problem Recommendation Dietitian Recommendations/Changes continue cardiac diet as tolerated; will monitor labs and add CHO controlled diet as indicated. Pt refusing ONS at this time Lab / Micro Data 06/01/23 04:45 06/01/23 04:45 Labs: Laboratory Results - last 24 hr 05/31/23 01:30: Diff Path Review Reviewed 05/31/23 03:50: MRSA (PCR) Negative 05/31/23 04:05: Diff Path Review Reviewed 05/31/23 07:20: Procalcitonin 0.24 H 06/01/23 04:45: WBC 14.2 H, RBC 2.99 L, Hgb 9.9 L, Hct 29.2 L, MCV 97.7, MCH 33.1 H, MCHC 33.9, RDW Std Deviation 54.5 H, RDW Coeff of Erlinda 15.3 H, Plt Count 189, MPV 11.3, Neut % (Auto) Not Reportable, Absolute Neuts (auto) 11.5 H, Absolute Lymphs (auto) 0.99, Total Counted 100, Neutrophils % (Manual) 81 H, Lymphocytes % (Manual) 7 L, Monocytes % (Manual) 10, Myelocytes % 2 H, Diff Path Review May foll, Andrez Cells 1+, Sodium 134 L, Potassium 4.3, Chloride 100, Carbon Dioxide 30.0, Anion Gap 4 L, BUN 28 H, Creatinine 1.28 H, Estim Creat Clear Calc 58.49, Est GFR (MDRD) Af Amer 55 L, Est GFR (MDRD) Non-Af 46 L, BUN/Creatinine Ratio 21.9 H, Glucose 208 H, Calcium 7.6 L, Phosphorus 3.3, Magnesium 2.6 Micro: Microbiology 05/31/23 21:20 Urine, Clean Catch Legionella Antigen - Final 05/31/23 21:20 Urine, Clean Catch Streptococcus pneumoniae Antigen (M - Final 05/31/23 09:30 Mucosa - Nasopharyngeal Respiratory Panel (PCR) - Final Radiography Diagnostic Testing: Radiology Impression Chest CTA 05/31/23 07:07 IMPRESSION: 1. No evidence of pulmonary embolism or aortic dissection. 2. Extensive bilateral infiltrates for the most part unchanged the prior examination concerning for pneumonia. 3. Mediastinal adenopathy likely reactive. Electronically Signed: Farhan Kumar MD at 8:39 EST , Echocardiogram 05/31/23 07:07 Interpretation Summary The estimated ejection fraction is 65 %. No evidence for diastolic dysfunction. Trivial aortic valve insufficiency. Ordering Physician: Dionte Dias Referring Physician: Jericho Nieves M.D. Performed By: Jose Enrique Goodrich RCS Rhythm Strip Rhythm Strip: Sinus Rhythm Rate: 80 Ectopy: None Physical Exam Narrative GENERAL: Patient on BiPAP HEENT: Atraumatic; normocephalic EYES; Anicteric, Normal Conjunctiva NECK; supple, normal thyroid, RESPIRATORY: Diminished to auscultation CARDIOVASCULAR: Regular S1 S2, GI: soft, normoactive bowel sounds, : No Renal angle tenderness; EXTREMITIES: No edema, no clubbing, MUSCULOSKELETAL: no muscle wasting NEURO: Awake; no lateralizing signs. SKIN: No Rash PSYCH; Flat affect Assessment & Plan Assessment/Plan (1) Acute hypoxemic respiratory failure: PLAN: Plan Patient is a 58-year-old lady admitted with progressive shortness of breath diagnosed with COVID 19 pneumonia with COPD and asthma exacerbation. Patient was discharged 2 days prior to her readmission. Was recommended for patient to be discharged to snf facility she declined. Presented back to the emergency department with worsening respiratory failure 1. Acute hypoxic respiratory failure ? Secondary to combination of COVID-19 pneumonia COPD? Exacerbation. Managed on noninvasive ventilation with consultation placed to pulmonary medicine. CTA of the chest ordered to rule out PE. Case discussed with Dr. iDas with intensive care. ? 06/01/2023; CTA obtained the day prior did show No evidence of pulmonary embolism or aortic dissection. Extensive bilateral infiltrates for the most part unchanged the prior examination concerning for pneumonia. Mediastinal adenopathy likely reactive.. Patient remains on broad-spectrum antibiotic therapy. Tolerated BiPAP during the night. 2. Recent acute COVID-19 infection -Patient remains in isolation 3. Suspected superimposed bacterial pneumonia ? CAT scan obtained demonstrated diffuse bilateral airspace opacification. Patient managed with broad-spectrum antibiotic therapy with vancomycin as well as Zosyn 4. COPD/asthma exacerbation ? Managed with bronchodilator treatment regimen systemic steroid as well as antibiotics as discussed above 5. Mild hyponatremia ? Secondary to hypovolemic hyponatremia monitoring with daily BMPs 6. Acute kidney injury ? Creatinine on discharge was 1.1, creatinine on admission was 1.51 started on IV hydration with monitoring of electrolyte 7. Coronary artery disease ? With PCI to proximal LAD and distal RCA on 05/17/2022 did continue guideline directed medical therapy 8. Hypertension - Blood pressure controlled, home medications continued with dose adjustment as needed 9. Dyslipidemia -Patient is on statin therapy, continued at home dose 10. Class III obesity with BMI of 50 ? Complicating care weight loss advised 11. Diabetes mellitus type II -patient's oral hypoglycemics held. Placed on long acting insulin, Accu-Cheks a.c. and at bedtime and covered with sliding scale insulin 12. Anemia - Secondary to chronic disorder monitoring H&H and transfuse if patient becomes symptomatic or hemoglobin falls below 7 13. Rheumatoid arthritis ? Patient is on methotrexate at home which is currently being held 14. Obstructive sleep apnea ? Patient is on nocturnal CPAP at home 15. Chronic pain syndrome ? Patient is on bupropion as well as Lyrica 16. GERD ? Patient is on PPI 17. Bipolar disorder ? Did continue patient psychotropic medications 18. Depression with anxiety ? Continue home meds 19. DVT prophylaxis ? SC Lovenox Time spent in the patient's overall evaluation,decision-making process, review of diagnostic data, adjustment of management, discussion with other providers, nursing nursing and ancillary staff involved in patient's care documentation 50 Minutes Charges/Coding Visit Charges Inpatient E&M: 07751 [facility] L3
--- NOTE | 2023-06-01 08:05 | PN.CC_ITS ---
Objective Data Objective Data Vital Signs: Vital Signs Last response Temperature 36.9 C 06/01/23 05:00 Temperature Source Temporal 06/01/23 05:00 Pulse Rate 51 L 06/01/23 07:19 Pulse Strength Normal (2+) 05/31/23 22:00 Respiratory Rate 16 06/01/23 07:19 Respiratory Effort Non-Labored, Short of Breath 06/01/23 04:58 Respiratory Depth Shallow 06/01/23 04:58 Respiratory Pattern Normal 06/01/23 07:19 Blood Pressure 104/55 L 06/01/23 07:00 Blood Pressure Mean 71 06/01/23 07:00 Blood Pressure Source Monitor 06/01/23 07:00 Blood Pressure Position Semi-Fowlers 06/01/23 07:00 Blood Pressure Location Right Arm 06/01/23 07:00 Pulse Ox 94 06/01/23 07:19 Oxygen Delivery Method Bi-pap 06/01/23 07:00 Oxygen Flow Rate (L/min) 8 06/01/23 00:00 Fraction of Inspired Oxygen (FIO2) 40 06/01/23 07:19 I&O: I&O Last 24 Hours 05/31/23 05/31/23 06/01/23 11:59 23:59 11:59 Intake Total 110 / 1035 925 / 1035 50 / 50 Output Total 750 / 1150 400 / 1150 0 / 0 Balance -640 / -115 525 / -115 50 / 50 I&O: Total Stay 05/31/23 01:11 thru 06/01/23 06:00 Intake Total 1085 Output Total 1150 Balance -65 Current Meds Ordered / Administered: Current meds ordered / Administered Generic Name Dose Route Start Last Admin Trade Name Freq PRN Reason Stop Dose Admin Acetaminophen 650 mg 05/31/23 03:40 Acetaminophen 325 Mg Tablet PO Q4H PRN PRN Fever, pain 1-10 Al Hydroxide/Mg Hydroxide 30 ml 05/31/23 03:40 Mag Hydrox/Al Hydrox/Simeth 30 Ml Udc PO Q6H PRN PRN Gastric Burning Albuterol Sulfate 2.5 mg 05/31/23 03:40 Albuterol 2.5 Mg/3 Ml Vial.Neb. INHALATION Q2H PRN PRN Dyspnea, wheezing Albuterol/Ipratropium 3 ml 05/31/23 08:45 06/01/23 06:59 Ipratropium/Albuterol Sulfate 3 Ml Ampul.Neb INHALATION 3 ml Q4HWA.RT [facility] Administration Alprazolam 0.5 mg 05/31/23 03:40 Alprazolam 0.5 Mg Tablet PO BID PRN PRN ANXIETY Amitriptyline HCl 75 mg 05/31/23 22:00 05/31/23 21:21 Amitriptyline 25 Mg Tablet PO 75 mg QHS [facility] Administration Aspirin 81 mg 05/31/23 08:00 05/31/23 07:39 Aspirin E.C. 81 Mg Tablet PO 81 mg DAILY@0800 [facility] Administration Atorvastatin Calcium 40 mg 05/31/23 22:00 05/31/23 21:21 Atorvastatin Calcium 40 Mg Tablet PO 40 mg QHS [facility] Administration Buprenorphine 2 patch 06/06/23 10:00 Buprenorphine 10 Mcg Patch.Tdwk TD Th@1000 [facility] Calamine/Phenol 1 applic 05/31/23 10:00 05/31/23 21:22 Menthol/Lanolin/Calamine/Znox 113 Gm Tube TOPICAL 1 applic 4X/DAY [facility] Administration Protocol Carvedilol 6.25 mg 05/31/23 08:00 05/31/23 16:44 Carvedilol 6.25 Mg Tablet PO Not Given [facility] Protocol Chlorhexidine Gluconate 1 each 05/31/23 10:00 05/31/23 05:51 Chlorhexidine Gluc 2% Cloth 1 Each Towelette TOPICAL 1 each DAILY [facility] Administration Clopidogrel Bisulfate 75 mg 05/31/23 10:00 05/31/23 07:40 Clopidogrel Bisulfate 75 Mg Tablet PO 75 mg DAILY [facility] Administration Enoxaparin Sodium 40 mg 05/31/23 10:00 05/31/23 21:20 Enoxaparin 40 Mg/0.4 Ml Syringe SC 40 mg BID [facility] Administration Escitalopram Oxalate 30 mg 05/31/23 10:00 05/31/23 07:39 Escitalopram Oxalate 20 Mg Tablet PO 30 mg DAILY [facility] Administration Guaifenesin 10 ml 05/31/23 03:40 Guaifenesin 10 Ml Udc (200mg/10ml) PO Q4H PRN PRN COUGH Hydralazine HCl 10 mg 05/31/23 03:40 Hydralazine 20 Mg/Ml Vial IV Q4H PRN PRN SBP > 160 Protocol Piperacillin Sod/Tazobactam 50 mls @ 12.5 mls/hr 05/31/23 04:00 06/01/23 04:51 Sod 3.375 gm/ Sodium Chloride IV 12.5 mls/hr Q8 [facility] Administration Sodium Chloride 250 mls @ 15 mls/hr 05/31/23 03:50 IV .[id number] PRN Additional IVPB Infusion Sodium Chloride 250 mls @ 15 mls/hr 05/31/23 03:50 IV .[id number] PRN Saline Flush Lamotrigine 100 mg 05/31/23 10:00 05/31/23 07:39 Lamotrigine 100 Mg Tablet PO 100 mg DAILY [facility] Administration Lamotrigine 200 mg 05/31/23 22:00 05/31/23 21:21 Lamotrigine 100 Mg Tablet PO 200 mg QHS [facility] Administration Lidocaine 1 applic 05/31/23 05:48 Lidocaine 5% 35gm Tube TOPICAL 4X/DAY PRN PAIN Losartan Potassium 50 mg 05/31/23 10:00 05/31/23 07:39 Losartan Potassium 50 Mg Tablet PO 50 mg DAILY [facility] Administration Protocol Melatonin 3 mg 05/31/23 03:40 Melatonin 3 Mg Tablet PO QHS PRN PRN INSOMNIA Methylprednisolone 40 mg 05/31/23 12:00 06/01/23 04:51 Methylprednisolone 40 Mg/Ml Vial IV 40 mg Q6 [facility]AN Administration Nitroglycerin 0.4 mg 05/31/23 04:15 Nitroglycerin (Inpatient Use) 0.4 Mg Tab.Subl SL Q5M PRN CARDIAC/CHEST PAIN Nystatin 1 applic 05/31/23 06:00 06/01/23 04:52 Nystatin Powder 15gm Bottle TOPICAL 1 applic TID [facility] Administration Protocol Ondansetron HCl 4 mg 05/31/23 03:40 Ondansetron 4 Mg/2 Ml Vial IV Q8H PRN PRN NAUSEA/VOMITING Pantoprazole Sodium 40 mg 05/31/23 10:00 05/31/23 07:40 Pantoprazole Sodium 40 Mg Tablet PO 40 mg DAILY [facility] Administration Pregabalin 75 mg 05/31/23 10:00 05/31/23 21:22 Pregabalin 75 Mg Capsule PO 75 mg BID [facility] Administration Prochlorperazine Edisylate 5 mg 05/31/23 03:40 Prochlorperazine 10 Mg/2 Ml Vial IV Q4H PRN PRN Breakthrough Nausea/Vomiting Senna/Docusate Sodium 2 tablet 05/31/23 03:40 Senna/Docusate Sodium 1 Tablet PO BID PRN PRN Constipation Sodium Chloride 10 - 40 ml 05/31/23 03:50 05/31/23 11:47 0.9% Saline Lock 10 Ml Syringe IV 30 ml UD PRN Administration SALINE FLUSH Medical Records Data Medical Nutrition Assessment Dietitian: Malnutrition Criteria Met Start: 05/31/23 10:14 Freq: Status: Active Protocol: Document 05/31/23 10:14 AG (Rec: 05/31/23 10:15 AG Desktop) Nutrition Malnutrition Evidence of Malnutrition Exists Yes Malnutrition (severe): Acute Illness/Injury Evidenced By Suboptimal Energy Intake ( Severe),Weight Loss (Severe) Clinical Problem Acute Disease or Injury Related Malnutrition Etiology severe, acute malnutrition related to inadequate energy intake d/t resp. failure Signs/Symptoms as evidenced by estimated PO intake meeting <50% of estimated energy needs > 5 days; unintentional 4% wt loss x 9 days Status Active Problem Recommendation Dietitian Recommendations/Changes continue cardiac diet as tolerated; will monitor labs and add CHO controlled diet as indicated. Pt refusing ONS at this time Lab / Micro Data 06/01/23 04:45 06/01/23 04:45 Labs: Laboratory Results - last 24 hr 05/31/23 01:30: Diff Path Review Reviewed 05/31/23 03:50: MRSA (PCR) Negative 05/31/23 04:05: Diff Path Review Reviewed 05/31/23 07:20: Procalcitonin 0.24 H 06/01/23 04:45: WBC 14.2 H, RBC 2.99 L, Hgb 9.9 L, Hct 29.2 L, MCV 97.7, MCH 33.1 H, MCHC 33.9, RDW Std Deviation 54.5 H, RDW Coeff of Erlinda 15.3 H, Plt Count 189, MPV 11.3, Neut % (Auto) Not Reportable, Absolute Neuts (auto) 11.5 H, Absolute Lymphs (auto) 0.99, Total Counted 100, Neutrophils % (Manual) 81 H, Lymphocytes % (Manual) 7 L, Monocytes % (Manual) 10, Myelocytes % 2 H, Diff Path Review May yudy [place] Cells 1+, Sodium 134 L, Potassium 4.3, Chloride 100, Carbon Dioxide 30.0, Anion Gap 4 L, BUN 28 H, Creatinine 1.28 H, Estim Creat Clear Calc 58.49, Est GFR (MDRD) Af Amer 55 L, Est GFR (MDRD) Non-Af 46 L, BUN/Creatinine Ratio 21.9 H, Glucose 208 H, Calcium 7.6 L, Phosphorus 3.3, Magnesium 2.6 Micro: Microbiology 05/31/23 21:20 Urine, Clean Catch Legionella Antigen - Final 05/31/23 21:20 Urine, Clean Catch Streptococcus pneumoniae Antigen (M - Final 05/31/23 09:30 Mucosa - Nasopharyngeal Respiratory Panel (PCR) - Final Rhythm Strip Rhythm Strip: Sinus Rhythm Rate: 80 Ectopy: None Imaging Radiology Impression Chest CTA 05/31/23 07:07 IMPRESSION: 1. No evidence of pulmonary embolism or aortic dissection. 2. Extensive bilateral infiltrates for the most part unchanged the prior examination concerning for pneumonia. 3. Mediastinal adenopathy likely reactive. Electronically Signed: Farhan Kumar MD at 8:39 EST , Echocardiogram 05/31/23 07:07 Interpretation Summary The estimated ejection fraction is 65 %. No evidence for diastolic dysfunction. Trivial aortic valve insufficiency. Ordering Physician: Dionte Dias Referring Physician: Jericho Nieves M.D. Performed By: Jose Enrique Goodrich RCS Assessment and Plan . Assessment and plan: Subjective: No acute events o/n. Pt feels mildly improved Physical Exam: Gen - NAD, morbidly obese HEENT - MMM. Sclera anicteric Resp - Diminished BS. Breathing nonlabored CV - RRR. No m/g/r Abd - Soft, NT, ND Ext - No c/c. Trace edema Skin - No rashes? Neuro - Grossly nonfocal. Alert and oriented I have reviewed the pertinent vital sign, laboratory, and imaging data. ASSESSMENT: # Acute hypoxic respiratory failure - recently discharged on 6L NC but apparently did not receive O2 at home, likely contributory to recurrent admit # Recent COVID-19 # PNA # Asthma exacerbation # JOSE on home CPAP # Hyponatremia # EDWIN # RA on methotrexate # CAD # DM # HTN # Anemia # Chronic pain # Bipolar d/o PLAN: -Switched back to 8L NC, wean to keep sats >90%. Cont BiPAP with all naps/sleep. Encourage IS, mobilization as tolerated -IV solumedrol, nebs -Empiric abx. f/u Cx. Check MRSA nares. Viral panel, legionella, strep neg -TTE w/ EF 65%, normal RV -CTA chest neg for PE -Cont ASA/plavix -Monitor Cr, UOP. Follow Na -Monitor CBC -SQ insulin FEN/GI: PO diet Proph DVT/GI: Lovenox, protonix The entirety of this encounter was completed via telemedicine
[2023-06-01] MEDS: Carvedilol 6.25 MG Tablet PO ×2 (10:00→17:09)
[2023-06-01] MEDS: Escitalopram Oxalate 20 MG Tablet 30 MG PO (10:01)
[2023-06-01] MEDS: Pantoprazole Sodium 40 MG Tablet PO (10:01)
[2023-06-01] MEDS: Losartan Potassium 50 MG Tablet PO (10:01)
[2023-06-01] MEDS: lamoTRIgine 100 MG Tablet PO (10:02)
[2023-06-01] MEDS: Aspirin E.C. 81 MG Tablet PO (10:02)
[2023-06-01] MEDS: Clopidogrel Bisulfate 75 MG Tablet PO (10:03)
[2023-06-01] MEDS: Enoxaparin 40 MG/0.4 ML Syringe SC ×2 (10:03→21:23)
[2023-06-01] MEDS: CHLORHEXIDINE GLUC 2% CLOTH 1 EACH TOWELETTE TOPICAL (10:04)
[2023-06-01] MEDS: Pregabalin 75 MG Capsule PO ×2 (10:14→21:22)
[2023-06-01] MEDS: 0.9% Saline Lock 10 ML Syringe IV ×2 (12:40→23:32)
[2023-06-01] MEDS: Menthol/Lanolin/Calamine/Znox 113 GM Tube 1 APPLIC TOPICAL ×2 (17:09→21:22)
[2023-06-01] MEDS: ALPRAZolam 0.5 MG Tablet PO (21:22)
[2023-06-01] MEDS: Amitriptyline 25 MG Tablet 75 MG PO (21:22)
[2023-06-01] MEDS: lamoTRIgine 100 MG Tablet 200 MG PO (21:22)
[2023-06-01] MEDS: Atorvastatin Calcium 40 MG Tablet PO (21:22)
[2023-06-02] VITALS (13 sets, daily range): BP systolic 101–120; BP diastolic 51–72; PULSE 50–75; RESP 12–20; TEMP 36.4–36.7; O2SAT 93–98; BMI 49.8
[2023-06-02 05:18] LABS: Absolute Lymphocyte Count 0.98 X10^3/uL (0.83-4.51); Absolute Neutrophil Count 13.8 X10^3/uL (2.0-7.7); Basophil# 0.05 X10^3/uL; Basophil% 0.3 % (0-1); Hemoglobin 9.2 g/dL (12.0-15.0); Lymphocyte # 0.98 X10^3/ul (0.83-4.51); Mean Corp Hgb Conc 34.1 g/dL (32-36); Mean Corpuscular Hgb 33.3 pg (27.0-32.0); Mean Corpuscular Volume 97.8 fL (81-99); Mean Platelet Vol. 11.5 fl (6.2-12.0); Monocyte# 0.52 X10^3/uL; Monocyte% 3.2 % (0-10); NRBC Flagged by Analyzer 0 % (0-5); Neutrophil # 13.81 X10^3/uL (2.7-7.7); Neutrophil % 84.5 % (47-70); POSITIVE COUNT YES; POSITIVE MORPHOLOGY YES; Platelet Count 215 K/mm3 (150-450); RBC Distribution Width CV 15.3 % (11.6-14.6); RBC Distribution Width SD 53.9 fl (35.1-43.9); Red Blood Count 2.76 M/mm3 (4.2-5.4); White Blood Count 16.3 K/mm3 (4.4-11.0)
[2023-06-02 05:33] LABS: Differential Indicated SCAN CRITERIA MET
[2023-06-02 05:35] LABS: Anion Gap 2 (5-15); BUN 24 mg/dL (7-18); BUN/Creat Ratio 21.2 RATIO (10-20); Calcium,Total 7.9 mg/dL (8.5-10.1); Chloride 101 mmol/L (98-107); Creatinine, Serum 1.13 mg/dL (0.55-1.02); EST Glomerular Filtration Rate 53 mL/min (>60); Est Glom Filt Rate - Afr Amer 64 mL/min (>60); Estimated Creatinine Clearance 66.46 ml/min; Glucose 225 mg/dL (74-106); Sodium Level 132 mmol/L (136-145)
[2023-06-02] MEDS: Piperacil/Tazobactam 3.375 GM in 0.9% Normal Saline (50mL MB+) 50 ML IV ×3 (05:56→21:11)
[2023-06-02] MEDS: Insulin Lispro 100 UNIT/ML INSULN.PEN SC ×4 (05:56→21:10)
[2023-06-02] MEDS: Nystatin Powder 15gm Bottle 1 APPLIC TOPICAL ×3 (05:57→21:11)
[2023-06-02 06:20] LABS: Bedside Glucose 223 mg/dL (74-106)
[2023-06-02] MEDS: Ipratropium/Albuterol Sulfate 3 ML AMPUL.NEB INHALATION ×4 (06:51→20:09)
[2023-06-02 07:07] LABS: Differential Comment SCANNED
--- NOTE | 2023-06-02 07:13 | PN.HOSP_ITS ---
Reason for Visit Reason for Visit: Diagnoses Acute respiratory failure with hypoxia (05/31/23) Subjective Subjective Patient seen was transferred from intensive care unit to progressive care unit. Did tolerate BiPAP during the night. Objective Data Objective Data Vital Signs: Vital Signs Temp Pulse Resp BP Pulse Ox O2 Del Method O2 Flow Rate 97.8 F 60 20 H 101/51 L 96 Bi-pap 6 06/02/23 03:43 06/02/23 04:00 06/02/23 04:00 06/02/23 03:43 06/02/23 04:00 06/02/23 03:43 06/01/23 19:40 FiO2 40 06/02/23 04:00 Oxygen Flow Rate (L/min) 6 Oxygen Delivery Method Bi-pap Weight: 119.9 kg Body Mass Index (BMI) 49.8 Intake & Output: Intake and Output for Last 24 Hours 05/31/23 06/01/23 06/02/23 23:59 23:59 23:59 Intake Total 1035 / 1035 150 / 630 680 / 680 Output Total 1150 / 1150 0 / 0 Balance -115 / -115 150 / 630 680 / 680 Medical Nutrition Assessment Dietitian: Malnutrition Criteria Met Start: 05/31/23 10:14 Freq: Status: Active Protocol: Document 05/31/23 10:14 AG (Rec: 05/31/23 10:15 AG Desktop) Nutrition Malnutrition Evidence of Malnutrition Exists Yes Malnutrition (severe): Acute Illness/Injury Evidenced By Suboptimal Energy Intake ( Severe),Weight Loss (Severe) Clinical Problem Acute Disease or Injury Related Malnutrition Etiology severe, acute malnutrition related to inadequate energy intake d/t resp. failure Signs/Symptoms as evidenced by estimated PO intake meeting <50% of estimated energy needs > 5 days; unintentional 4% wt loss x 9 days Status Active Problem Recommendation Dietitian Recommendations/Changes continue cardiac diet as tolerated; will monitor labs and add CHO controlled diet as indicated. Pt refusing ONS at this time Lab / Micro Data 06/02/23 04:35 06/02/23 04:35 Labs: Laboratory Results - last 24 hr 06/02/23 04:35: WBC 16.3 H, RBC 2.76 L, Hgb 9.2 L, Hct 27.0 L, MCV 97.8, MCH 33.3 H, MCHC 34.1, RDW Std Deviation 53.9 H, RDW Coeff of Erlinda 15.3 H, Plt Count 215, MPV 11.5, Immature Gran % (Auto) 6.000 H, Neut % (Auto) 84.5 H, Lymph % (Auto) 6.0 L, [place] % (Auto) 3.2, Eos % (Auto) 0.0, Baso % (Auto) 0.3, Absolute Neuts (auto) 13.8 H, Absolute Lymphs (auto) 0.98, Nucleated RBC % 0, Differential Comment SCANNED, Diff Path Review September foll, Sodium 132 L, Potassium 4.0, Chloride 101, Carbon Dioxide 29.0, Anion Gap 2 L, BUN 24 H, Creatinine 1.13 H, Estim Creat Clear Calc 66.46, Est GFR (MDRD) Af Amer 64, Est GFR (MDRD) Non- Af 53 L, BUN/Creatinine Ratio 21.2 H, Glucose 225 H, Calcium 7.9 L 06/02/23 05:55: POC Glucose 223 H Micro: Microbiology 06/01/23 21:30 Nasal Secretion MRSA (PCR) - Final 06/01/23 10:05 Nasal Secretion MRSA (PCR) - Final 05/31/23 21:20 Urine, Clean Catch Legionella Antigen - Final 05/31/23 21:20 Urine, Clean Catch Streptococcus pneumoniae Antigen (M - Final 05/31/23 09:30 Mucosa - Nasopharyngeal Respiratory Panel (PCR) - Final Rhythm Strip Rhythm Strip: Sinus Rhythm Rate: 80 Ectopy: None Physical Exam Narrative GENERAL: Patient on BiPAP HEENT: Atraumatic; normocephalic EYES; Anicteric, Normal Conjunctiva NECK; supple, normal thyroid, RESPIRATORY: Diminished to auscultation CARDIOVASCULAR: Regular S1 S2, GI: soft, normoactive bowel sounds, : No Renal angle tenderness; EXTREMITIES: No edema, no clubbing, MUSCULOSKELETAL: no muscle wasting NEURO: Awake; no lateralizing signs. SKIN: No Rash PSYCH; Flat affect Assessment & Plan Assessment/Plan (1) Acute hypoxemic respiratory failure: PLAN: Plan Patient is a 58-year-old lady admitted with progressive shortness of breath diagnosed with COVID 19 pneumonia with COPD and asthma exacerbation. Patient was discharged 2 days prior to her readmission. Was recommended for patient to be discharged to correction facility she declined. Presented back to the emergency department with worsening respiratory failure 1. Acute hypoxic respiratory failure ? Secondary to combination of COVID-19 pneumonia COPD? Exacerbation. Managed on noninvasive ventilation with consultation placed to pulmonary medicine. CTA of the chest ordered to rule out PE. Case discussed with Dr. Dias with intensive care. ? 06/01/2023; CTA obtained the day prior did show No evidence of pulmonary embolism or aortic dissection. Extensive bilateral infiltrates for the most part unchanged the prior examination concerning for pneumonia. Mediastinal adenopathy likely reactive.. Patient remains on broad-spectrum antibiotic therapy. Tolerated BiPAP during the night. ? 06/02/2023; tolerated BiPAP during the night plan is to start patient on nasal cannula 2. Recent acute COVID-19 infection -Patient remains in isolation 3. Suspected superimposed bacterial pneumonia ? CAT scan obtained demonstrated diffuse bilateral airspace opacification. Patient managed with broad-spectrum antibiotic therapy with vancomycin as well as Zosyn 4. COPD/asthma exacerbation ? Managed with bronchodilator treatment regimen systemic steroid as well as antibiotics as discussed above 5. Mild hyponatremia ? Secondary to hypovolemic hyponatremia monitoring with daily BMPs ? 06/02/2023 sodium level remains fairly stable at 132 6. Acute kidney injury ? Creatinine on discharge was 1.1, creatinine on admission was 1.51 started on IV hydration with monitoring of electrolyte ? 06/02/2023; creatinine down to 1.1. 7. Coronary artery disease ? With PCI to proximal LAD and distal RCA on 05/17/2022 did continue guideline directed medical therapy 8. Hypertension - Blood pressure controlled, home medications continued with dose adjustment as needed 9. Dyslipidemia -Patient is on statin therapy, continued at home dose 10. Class III obesity with BMI of 50 ? Complicating care weight loss advised 11. Diabetes mellitus type II -patient's oral hypoglycemics held. Placed on long acting insulin, Accu-Cheks a.c. and at bedtime and covered with sliding scale insulin 12. Anemia - Secondary to chronic disorder monitoring H&H and transfuse if patient becomes symptomatic or hemoglobin falls below 7 13. Rheumatoid arthritis ? Patient is on methotrexate at home which is currently being held 14. Obstructive sleep apnea ? Patient is on nocturnal CPAP at home 15. Chronic pain syndrome ? Patient is on bupropion as well as Lyrica 16. GERD ? Patient is on PPI 17. Bipolar disorder ? Did continue patient psychotropic medications 18. Depression with anxiety ? Continue home meds 19. DVT prophylaxis ? SC Lovenox 20. Physical deconditioning - Requested for PT OT eval and social media intern to assist with discharge planning plan is for patient to be discharged to correction facility case discussed with case management Time spent in the patient's overall evaluation,decision-making process, review of diagnostic data, adjustment of management, discussion with other providers, nursing nursing and ancillary staff involved in patient's care documentation 50 Minutes Charges/Coding Visit Charges Inpatient E&M: 66374 Subs Hosp L3
[2023-06-02 09:14] LABS: Hemoglobin A1c 6.5 % (3.8-5.6)
[2023-06-02] MEDS: Losartan Potassium 50 MG Tablet PO (09:51)
[2023-06-02] MEDS: Carvedilol 6.25 MG Tablet PO ×2 (09:51→17:16)
[2023-06-02] MEDS: Pantoprazole Sodium 40 MG Tablet PO (09:51)
[2023-06-02] MEDS: lamoTRIgine 100 MG Tablet PO (09:51)
[2023-06-02] MEDS: Escitalopram Oxalate 20 MG Tablet 30 MG PO (09:52)
[2023-06-02] MEDS: Aspirin E.C. 81 MG Tablet PO (09:52)
[2023-06-02] MEDS: Enoxaparin 40 MG/0.4 ML Syringe SC ×2 (09:55→21:11)
[2023-06-02] MEDS: Clopidogrel Bisulfate 75 MG Tablet PO (09:55)
[2023-06-02] MEDS: Pregabalin 75 MG Capsule PO ×2 (10:00→21:08)
[2023-06-02 12:53] LABS: Bedside Glucose 210 mg/dL (74-106)
[2023-06-02] MEDS: Menthol/Lanolin/Calamine/Znox 113 GM Tube 1 APPLIC TOPICAL ×3 (14:15→21:11)
--- NOTE | 2023-06-02 15:34 | PCM.PN.TICU ---
Objective Data Objective Data Vital Signs: Vital Signs Last response Temperature 36.6 C 06/02/23 14:12 Temperature Source Temporal 06/02/23 14:12 Pulse Rate 74 06/02/23 14:12 Pulse Strength Normal (2+) 06/02/23 09:03 Respiratory Rate 18 06/02/23 14:12 Respiratory Effort Normal, Non-Labored 06/02/23 14:00 Respiratory Depth Normal 06/02/23 14:00 Respiratory Pattern Normal 06/02/23 14:00 Blood Pressure 120/72 06/02/23 14:12 Blood Pressure Mean 88 06/02/23 14:12 Blood Pressure Source Monitor 06/02/23 14:12 Blood Pressure Position Semi-Fowlers 06/02/23 14:12 Blood Pressure Location Left Forearm 06/02/23 14:12 Pulse Ox 98 06/02/23 14:12 Oxygen Delivery Method Nasal Cannula 06/02/23 14:12 Oxygen Flow Rate (L/min) 6 06/02/23 14:12 Fraction of Inspired Oxygen (FIO2) 40 06/02/23 06:51 I&O: I&O Last 24 Hours 06/01/23 06/02/23 06/02/23 23:59 11:59 23:59 Intake Total 50 / 630 730 / 970 240 / 970 Balance 50 / 630 730 / 970 240 / 970 I&O: Total Stay 05/31/23 01:11 thru 06/02/23 12:00 Intake Total 2155 Output Total 1150 Balance 1005 Current Meds Ordered / Administered: Current meds ordered / Administered Generic Name Dose Route Start Last Admin Trade Name Olivierq PRN Reason Stop Dose Admin Acetaminophen 650 mg 05/31/23 03:40 Acetaminophen 325 Mg Tablet PO Q4H PRN PRN Fever, pain 1-10 Al Hydroxide/Mg Hydroxide 30 ml 05/31/23 03:40 Mag Hydrox/Al Hydrox/Simeth 30 Ml Udc PO Q6H PRN PRN Gastric Burning Albuterol Sulfate 2.5 mg 05/31/23 03:40 Albuterol 2.5 Mg/3 Ml Vial.Neb. INHALATION Q2H PRN PRN Dyspnea, wheezing Albuterol/Ipratropium 3 ml 05/31/23 08:45 06/02/23 15:08 Ipratropium/Albuterol Sulfate 3 Ml Ampul.Neb INHALATION 3 ml Q4HWA.RT RYAN Administration Alprazolam 0.5 mg 05/31/23 03:40 06/01/23 21:22 Alprazolam 0.5 Mg Tablet PO 0.5 mg BID PRN PRN Administration ANXIETY Amitriptyline HCl 75 mg 05/31/23 22:00 06/01/23 21:22 Amitriptyline 25 Mg Tablet PO 75 mg QHS [facility] Administration Aspirin 81 mg 05/31/23 08:00 06/02/23 09:52 Aspirin E.C. 81 Mg Tablet PO 81 mg DAILY@0800 [facility] Administration Atorvastatin Calcium 40 mg 05/31/23 22:00 06/01/23 21:22 Atorvastatin Calcium 40 Mg Tablet PO 40 mg QHS [facility] Administration Buprenorphine 2 patch 06/06/23 10:00 Buprenorphine 10 Mcg Patch.Tdwk TD Th@1000 [facility] Calamine/Phenol 1 applic 05/31/23 10:00 06/02/23 14:15 Menthol/Lanolin/Calamine/Znox 113 Gm Tube TOPICAL 1 applic 4X/DAY [facility] Administration Protocol Carvedilol 6.25 mg 05/31/23 08:00 06/02/23 09:51 Carvedilol 6.25 Mg Tablet PO 6.25 mg BIDCM [facility] Administration Protocol Chlorhexidine Gluconate 1 each 05/31/23 10:00 06/02/23 09:52 Chlorhexidine Gluc 2% Cloth 1 Each [place] TOPICAL Not Given DAILY [facility] Clopidogrel Bisulfate 75 mg 05/31/23 10:00 06/02/23 09:55 Clopidogrel Bisulfate 75 Mg Tablet PO 75 mg DAILY [facility] Administration Dextrose 0 gm 06/02/23 03:32 Dextrose 50%-Water 25 Gm/50 Ml Disp.Syrin IV X1 PRN Hypoglycemia Protocol Enoxaparin Sodium 40 mg 05/31/23 10:00 06/02/23 09:55 Enoxaparin 40 Mg/0.4 Ml Syringe SC 40 mg BID [facility] Administration Escitalopram Oxalate 30 mg 05/31/23 10:00 06/02/23 09:52 Escitalopram Oxalate 20 Mg Tablet PO 30 mg DAILY [facility] Administration Glucagon 1 mg 06/02/23 03:32 Glucagon 1 Mg/Ml Syringe IM X1 PRN Hypoglycemia Guaifenesin 10 ml 05/31/23 03:40 Guaifenesin 10 Ml Udc (200mg/10ml) PO Q4H PRN PRN COUGH Hydralazine HCl 10 mg 05/31/23 03:40 Hydralazine 20 Mg/Ml Vial IV Q4H PRN PRN SBP > 160 Protocol Piperacillin Sod/Tazobactam 50 mls @ 12.5 mls/hr 05/31/23 04:00 06/02/23 14:15 Sod 3.375 gm/ Sodium Chloride IV 12.5 mls/hr Q8 RYAN Administration Sodium Chloride 250 mls @ 15 mls/hr 05/31/23 03:50 IV .[id number] PRN Additional IVPB Infusion Sodium Chloride 250 mls @ 15 mls/hr 05/31/23 03:50 IV .[id number] PRN Saline Flush Insulin Human Lispro 0 unit 06/02/23 07:00 06/02/23 12:26 Insulin Lispro 100 Unit/Ml Insuln.Pen SC 2 units ACHS RYAN Administration Protocol Lamotrigine 100 mg 05/31/23 10:00 06/02/23 09:51 Lamotrigine 100 Mg Tablet PO 100 mg DAILY RYAN Administration Lamotrigine 200 mg 05/31/23 22:00 06/01/23 21:22 Lamotrigine 100 Mg Tablet PO 200 mg QHS RYAN Administration Lidocaine 1 applic 05/31/23 05:48 Lidocaine 5% 35gm Tube TOPICAL 4X/DAY PRN PAIN Losartan Potassium 50 mg 05/31/23 10:00 06/02/23 09:51 Losartan Potassium 50 Mg Tablet PO 50 mg DAILY RYAN Administration Protocol Melatonin 3 mg 05/31/23 03:40 Melatonin 3 Mg Tablet PO QHS PRN PRN INSOMNIA Methylprednisolone 40 mg 05/31/23 12:00 06/02/23 12:27 Methylprednisolone 40 Mg/Ml Vial IV 40 mg Q6 RYAN Administration Nitroglycerin 0.4 mg 05/31/23 04:15 Nitroglycerin (Inpatient Use) 0.4 Mg Tab.Subl SL Q5M PRN CARDIAC/CHEST PAIN Nystatin 1 applic 05/31/23 06:00 06/02/23 14:15 Nystatin Powder 15gm Bottle TOPICAL 1 applic TID RYAN Administration Protocol Ondansetron HCl 4 mg 05/31/23 03:40 Ondansetron 4 Mg/2 Ml Vial IV Q8H PRN PRN NAUSEA/VOMITING Pantoprazole Sodium 40 mg 05/31/23 10:00 06/02/23 09:51 Pantoprazole Sodium 40 Mg Tablet PO 40 mg DAILY RYAN Administration Pregabalin 75 mg 05/31/23 10:00 06/02/23 10:00 Pregabalin 75 Mg Capsule PO 75 mg BID RYAN Administration Prochlorperazine Edisylate 5 mg 05/31/23 03:40 Prochlorperazine 10 Mg/2 Ml Vial IV Q4H PRN PRN Breakthrough Nausea/Vomiting Senna/Docusate Sodium 2 tablet 05/31/23 03:40 Senna/Docusate Sodium 1 Tablet PO BID PRN PRN Constipation Sodium Chloride 10 - 40 ml 05/31/23 03:50 06/01/23 23:32 0.9% Saline Lock 10 Ml Syringe IV 10 ml UD PRN Administration SALINE FLUSH Medical Records Data Medical Nutrition Assessment Dietitian: Malnutrition Criteria Met Start: 05/31/23 10:14 Freq: Status: Active Protocol: Document 05/31/23 10:14 AG (Rec: 05/31/23 10:15 AG Desktop) Nutrition Malnutrition Evidence of Malnutrition Exists Yes Malnutrition (severe): Acute Illness/Injury Evidenced By Suboptimal Energy Intake ( Severe),Weight Loss (Severe) Clinical Problem Acute Disease or Injury Related Malnutrition Etiology severe, acute malnutrition related to inadequate energy intake d/t resp. failure Signs/Symptoms as evidenced by estimated PO intake meeting <50% of estimated energy needs > 5 days; unintentional 4% wt loss x 9 days Status Active Problem Recommendation Dietitian Recommendations/Changes continue cardiac diet as tolerated; will monitor labs and add CHO controlled diet as indicated. Pt refusing ONS at this time Lab / Micro Data 06/02/23 04:35 06/02/23 04:35 Labs: Laboratory Results - last 24 hr 06/02/23 04:35: WBC 16.3 H, RBC 2.76 L, Hgb 9.2 L, Hct 27.0 L, MCV 97.8, MCH 33.3 H, MCHC 34.1, RDW Std Deviation 53.9 H, RDW Coeff of Erlinda 15.3 H, Plt Count 215, MPV 11.5, Immature Gran % (Auto) 6.000 H, Neut % (Auto) 84.5 H, Lymph % (Auto) 6.0 L, [place] % (Auto) 3.2, Eos % (Auto) 0.0, Baso % (Auto) 0.3, Absolute Neuts (auto) 13.8 H, Absolute Lymphs (auto) 0.98, Nucleated RBC % 0, Differential Comment SCANNED, Diff Path Review September, Sodium 132 L, Potassium 4.0, Chloride 101, Carbon Dioxide 29.0, Anion Gap 2 L, BUN 24 H, Creatinine 1.13 H, Estim Creat Clear Calc 66.46, Est GFR (MDRD) Af Amer 64, Est GFR (MDRD) Non-Af 53 L, BUN/Creatinine Ratio 21.2 H, Glucose 225 H, Hemoglobin A1c 6.5 H, Calcium 7.9 L 06/02/23 05:55: POC Glucose 223 H 06/02/23 12:24: POC Glucose 210 H Micro: Microbiology 06/01/23 21:30 Nasal Secretion MRSA (PCR) - Final 06/01/23 10:05 Nasal Secretion MRSA (PCR) - Final Rhythm Strip Rhythm Strip: Sinus Rhythm Rate: 80 Ectopy: None Assessment and Plan . Assessment and plan: Subjective: No acute events o/n. Feels improved from yest. Down to 6L NC at rest but up to 10L with activity.. Transferred to PCU yest as well Physical Exam: Gen - NAD, morbidly obese HEENT - MMM. Sclera anicteric Resp - Diminished BS. Breathing nonlabored CV - RRR. No m/g/r Abd - Soft, NT, ND Ext - No c/c. Trace edema Skin - No rashes? Neuro - Grossly nonfocal. Alert and oriented I have reviewed the pertinent vital sign, laboratory, and imaging data. ASSESSMENT: # Acute hypoxic respiratory failure - recently discharged on 6L NC but apparently did not receive O2 at home, likely contributory to recurrent admit # Recent COVID-19 # PNA # Asthma exacerbation # JOSE on home CPAP # Hyponatremia # EDWIN # RA on methotrexate # CAD # DM # HTN # Anemia # Chronic pain # Bipolar d/o PLAN: -Satting high 90s on 6L NC, wean to keep sats >90%. Required up to 10L with activity today. Cont BiPAP with naps/sleep. -Encourage IS, PT/mobilization as tolerated -IV solumedrol, nebs -Empiric abx. f/u Cx. Vanc stopped, MRSA nares negative. Viral panel, legionella, strep neg -TTE w/ EF 65%, normal RV -CTA chest neg for PE -Cont ASA/plavix -Monitor Cr, UOP. Follow Na. Monitor for worsening edema -Monitor CBC -SQ insulin FEN/GI: PO diet Proph DVT/GI: Lovenox, protonix The entirety of this encounter was completed via telemedicine
[2023-06-02 17:42] LABS: Bedside Glucose 222 mg/dL (74-106)
[2023-06-02] MEDS: ALPRAZolam 0.5 MG Tablet PO (21:08)
[2023-06-02] MEDS: Amitriptyline 25 MG Tablet 75 MG PO (21:09)
[2023-06-02] MEDS: Atorvastatin Calcium 40 MG Tablet PO (21:10)
[2023-06-02] MEDS: lamoTRIgine 100 MG Tablet 200 MG PO (21:10)
[2023-06-02] MEDS: guaiFENesin 10 ML UDC (200MG/10ML) PO (21:23)
[2023-06-02 23:48] LABS: Bedside Glucose 256 mg/dL (74-106)
[2023-06-03] VITALS (12 sets, daily range): BP systolic 93–135; BP diastolic 47–66; PULSE 51–94; RESP 12–20; TEMP 36.2–36.8; O2SAT 85–99; BMI 50.3
[2023-06-03] MEDS: 0.9% Saline Lock 10 ML Syringe IV ×2 (05:16→08:36)
[2023-06-03] MEDS: Piperacil/Tazobactam 3.375 GM in 0.9% Normal Saline (50mL MB+) 50 ML IV ×3 (05:16→20:50)
[2023-06-03] MEDS: Nystatin Powder 15gm Bottle 1 APPLIC TOPICAL ×3 (05:37→20:42)
[2023-06-03] MEDS: Insulin Lispro 100 UNIT/ML INSULN.PEN SC ×4 (05:59→20:40)
[2023-06-03 06:12] LABS: Hematocrit 28.2 % (37-47); Hemoglobin 9.3 g/dL (12.0-15.0); Mean Corpuscular Hgb 32.7 pg (27.0-32.0); Mean Corpuscular Volume 99.3 fL (81-99); POSITIVE COUNT YES; POSITIVE MORPHOLOGY YES; Platelet Count 231 K/mm3 (150-450); RBC Distribution Width CV 15.4 % (11.6-14.6); RBC Distribution Width SD 55.5 fl (35.1-43.9); Red Blood Count 2.84 M/mm3 (4.2-5.4); White Blood Count 15.6 K/mm3 (4.4-11.0)
[2023-06-03 06:17] LABS: Bedside Glucose 181 mg/dL (74-106)
[2023-06-03 06:44] LABS: Anion Gap 3 (5-15); BUN 21 mg/dL (7-18); BUN/Creat Ratio 17.4 RATIO (10-20); Calcium,Total 8.1 mg/dL (8.5-10.1); Chloride 101 mmol/L (98-107); Creatinine, Serum 1.21 mg/dL (0.55-1.02); EST Glomerular Filtration Rate 49 mL/min (>60); Est Glom Filt Rate - Afr Amer 59 mL/min (>60); Estimated Creatinine Clearance 62.06 ml/min; Glucose 186 mg/dL (74-106); Potassium 4.4 mmol/L (3.5-5.1); Sodium Level 133 mmol/L (136-145)
[2023-06-03 07:00] LABS: Differential Indicated MANUAL DIFF
[2023-06-03] MEDS: Ipratropium/Albuterol Sulfate 3 ML AMPUL.NEB INHALATION ×4 (07:18→19:24)
[2023-06-03 07:44] LABS: Neutrophil-Segmented 88 % (47-70); Total Cells Counted 100 (MANUAL DIFF)
[2023-06-03 07:45] LABS: Lymphocyte 8 % (19-41); Metamyelocyte 1 % (0-1); Monocyte 2 % (0-10); Myelocyte 1 % (0-0); Red Cell Morphology NORM C+C NORMAL (NORM C&C)
[2023-06-03 07:46] LABS: Absolute Lymphocyte Count 1.25 X10^3/uL (0.83-4.51); Absolute Neutrophil Count 13.8 X10^3/uL (2.0-7.7)
--- NOTE | 2023-06-03 08:13 | PCM.PN.INT ---
Assessment & Plan Assessment/Plan (1) Acute hypoxemic respiratory failure: PLAN: Plan RECOMMENDATIONS: 1. Continue PAP therapy with naps and nightly, per home regimen. 2. Supplemental oxygen for saturations greater than 90%. 3. Continue scheduled bronchodilators and steroids. 4. Continue empiric antimicrobials, pending repeat infectious workup. 5. Encourage incentive spirometer and out of bed as tolerated 6. Likely wean steroids tomorrow if oxygenation improves with incentive spirometer 7. Continue appropriate DVT prophylaxis. 8. Encourage incentive spirometer use and mobilize patient as tolerated. IMPRESSIONS: 1. Acute hypoxemic respiratory failure The patient was just discharged from the hospital 2 days ago after having been admitted with a respiratory failure, which was felt to be secondary to an asthma exacerbation precipitated by COVID-19 pneumonia. There was also concern for a secondary bacterial pneumonia. Therefore, the patient was treated with antibiotics and Decadron during that hospitalization. Patient's oxygenation is slightly improved compared to previous. No PE was noted on CTA of the chest. Patient would benefit from pulmonary recruitment with incentive spirometer. Echocardiogram was not suggestive of CHF or pulmonary hypertension 2. History of obstructive sleep apnea Continue nocturnal PAP therapy per home regimen. Stressed to the patient that this should be used with all sleep 3. Morbid obesity/tobacco dependency/rheumatoid arthritis/chronic pain syndrome/coronary artery disease/hypertension Complicates care, management, recovery and prognosis. Continue supportive care as noted above. This note was generated with [employer] dictation software. It may contain incorrect words, spelling, and punctuation that were not noted in checking the note before signing. Subjective Subjective Patient did okay overnight. Patient continues to have a wet cough. Patient reports she was able to make it to the chair yesterday and tolerated well. Patient does not have an incentive spirometer at the bedside and states that she lost it. Patient does feel subjectively slightly improved compared to yesterday. Objective Data Objective Data Vital Signs: Vital Signs Temp Pulse Resp BP Pulse Ox O2 Del Method O2 Flow Rate 36.6 C 51 L 19 H 108/60 98 Bi-pap 6 06/03/23 03:05 06/03/23 07:18 06/03/23 07:18 06/03/23 03:05 06/03/23 07:18 06/03/23 03:05 06/03/23 03:00 FiO2 35 06/03/23 07:18 Oxygen Flow Rate (L/min) 6 Oxygen Delivery Method Bi-pap Weight: 121 kg Body Mass Index (BMI) 50.3 Intake & Output: Intake and Output for Last 24 Hours 06/01/23 06/02/23 06/03/23 23:59 23:59 23:59 Intake Total 150 / 630 1260 / 1260 170 / 170 Output Total 0 / 0 Balance 150 / 630 1260 / 1260 170 / 170 Medical Nutrition Assessment Dietitian: Malnutrition Criteria Met Start: 05/31/23 10:14 Freq: Status: Active Protocol: Document 05/31/23 10:14 AG (Rec: 05/31/23 10:15 AG Desktop) Nutrition Malnutrition Evidence of Malnutrition Exists Yes Malnutrition (severe): Acute Illness/Injury Evidenced By Suboptimal Energy Intake ( Severe),Weight Loss (Severe) Clinical Problem Acute Disease or Injury Related Malnutrition Etiology severe, acute malnutrition related to inadequate energy intake d/t resp. failure Signs/Symptoms as evidenced by estimated PO intake meeting <50% of estimated energy needs > 5 days; unintentional 4% wt loss x 9 days Status Active Problem Recommendation Dietitian Recommendations/Changes continue cardiac diet as tolerated; will monitor labs and add CHO controlled diet as indicated. Pt refusing ONS at this time Lab / Micro Data Attestation: I reviewed the patient's lab results. 06/03/23 05:43 06/03/23 05:43 Labs: Laboratory Results - last 24 hr 06/02/23 04:35: Hemoglobin A1c 6.5 H 06/02/23 12:24: POC Glucose 210 H 06/02/23 17:13: POC Glucose 222 H 06/02/23 21:01: POC Glucose 256 H 06/03/23 05:43: WBC 15.6 H, RBC 2.84 L, Hgb 9.3 L, Hct 28.2 L, MCV 99.3 H, MCH 32.7 H, MCHC 33.0, RDW Std Deviation 55.5 H, RDW Coeff of Erlinda 15.4 H, Plt Count 231, MPV 11.0, Neut % (Auto) Not Reportable, Absolute Neuts (auto) 13.8 H, Absolute Lymphs (auto) 1.25, Total Counted 100, Neutrophils % (Manual) 88 H, Lymphocytes % (Manual) 8 L, Monocytes % (Manual) 2, Metamyelocytes % 1, Myelocytes % 1 H, Diff Path Review May foll, RBC Morphology NORM C+C, Sodium 133 L, Potassium 4.4, Chloride 101, Carbon Dioxide 29.0, Anion Gap 3 L, BUN 21 H, Creatinine 1.21 H, Estim Creat Clear Calc 62.06, Est GFR (MDRD) Af Amer 59 L, Est GFR (MDRD) Non-Af 49 L, BUN/Creatinine Ratio 17.4, Glucose 186 H, Calcium 8.1 L 06/03/23 05:57: POC Glucose 181 H Micro: Microbiology 06/01/23 21:30 Nasal Secretion MRSA (PCR) - Final 06/01/23 10:05 Nasal Secretion MRSA (PCR) - Final 05/31/23 21:20 Urine, Clean Catch Legionella Antigen - Final 05/31/23 21:20 Urine, Clean Catch Streptococcus pneumoniae Antigen (M - Final 05/31/23 09:30 Mucosa - Nasopharyngeal Respiratory Panel (PCR) - Final Rhythm Strip Rhythm Strip: Sinus Rhythm Rate: 55 Ectopy: None Physical Exam Const alert and no apparent distress Constitutional Narrative: Morbidly obese on nasal cannula oxygen with no conversational dyspnea General Appearance: cooperative HEENT normocephalic and head/scalp atraumatic Eyes PERRL, EOMs intact bilaterally and conjunctivae normal Neck supple General: trachea midline Chest inspection of chest normal Resp normal respiratory effort Resp Narrative: Exam somewhat limited secondary to body habitus Auscultation: wheezes and diminished lung sounds; Negative for rales or rhonchi Cardio regular rate, regular rhythm, S1 normal heart sound, S2 normal heart sound, no murmurs, no rub and no gallops GI normal to inspection, nondistended, normoactive bowel sounds Extremity no clubbing, cyanosis or edema Skin no rashes or lesions noted Neuro CN's II-XII intact bilaterally, moves all extremities and no focal motor deficits Psych cooperative and affect normal Charges/Coding Visit Charges Inpatient E&M: 66289 Subs Hosp L2
[2023-06-03 08:29] LABS: Platelet Estimate ADEQUATE (ADEQ)
[2023-06-03] MEDS: lamoTRIgine 100 MG Tablet PO (08:38)
[2023-06-03] MEDS: Escitalopram Oxalate 20 MG Tablet 30 MG PO (08:38)
[2023-06-03] MEDS: Pantoprazole Sodium 40 MG Tablet PO (08:38)
[2023-06-03] MEDS: Losartan Potassium 50 MG Tablet PO (08:39)
[2023-06-03] MEDS: Carvedilol 6.25 MG Tablet PO ×2 (08:39→17:22)
[2023-06-03] MEDS: Aspirin E.C. 81 MG Tablet PO (08:39)
[2023-06-03] MEDS: Clopidogrel Bisulfate 75 MG Tablet PO (08:39)
[2023-06-03] MEDS: Enoxaparin 40 MG/0.4 ML Syringe SC ×2 (08:41→20:41)
--- NOTE | 2023-06-03 09:06 | CASEMGMT ---
Discharge Planning Updates sent to [facility] via [employer]. Asked for status of referral. Viktoria William, Discharge Planning Asst.
--- NOTE | 2023-06-03 09:23 | CASEMGMT ---
RN CM Director: Call placed on 05/31/23 to [employer] customer service in follow-up to home O2 equipment delivery and lack of instruction to patient and significant other. Was informed that delivery drivers do not go into homes of COVID patients but our concern would be escalated to their global sourcing manager Hilary for further review. Return call/voicemail received from Hilary. On this date call placed to Hilary on her provided cell phone number. This CM Director explained concerns of the city bus driver not providing education to patient in room prior to discharge, not waiting for S.O. to return home to provide instruction and to deliver the equipment into the home, and that equipment was dropped off on pt's back porch for significant other to set up in the home. Explained that pt and S.O. did not understand how to bleed O2 into pt's PAP machine and that pt went without O2 at hs and that pt has subsequently been readmitted. Hilary states that drivers should be entering homes regardless of COVID presence. Hilary to follow-up on these concerns. Madisyn Reyes RN [facility]
--- NOTE | 2023-06-03 09:30 | PN.HOSP_ITS ---
Reason for Visit Reason for Visit: Diagnoses Acute respiratory failure with hypoxia (05/31/23) Objective Data Objective Data Vital Signs: Vital Signs Temp Pulse Resp BP Pulse Ox O2 Del Method O2 Flow Rate 36.8 C 71 18 135/66 H 94 Nasal Cannula 4 06/03/23 08:30 06/03/23 08:30 06/03/23 08:30 06/03/23 08:30 06/03/23 08:30 06/03/23 08:30 06/03/23 08:30 FiO2 35 06/03/23 07:18 Oxygen Flow Rate (L/min) 4 Oxygen Delivery Method Nasal Cannula Weight: 121 kg Body Mass Index (BMI) 50.3 Intake & Output: Intake and Output for Last 24 Hours 06/01/23 06/02/23 06/03/23 23:59 23:59 23:59 Intake Total 150 / 630 1260 / 1260 170 / 170 Output Total 0 / 0 Balance 150 / 630 1260 / 1260 170 / 170 Medical Nutrition Assessment Dietitian: Malnutrition Criteria Met Start: 05/31/23 10:14 Freq: Status: Active Protocol: Document 05/31/23 10:14 AG (Rec: 05/31/23 10:15 AG Desktop) Nutrition Malnutrition Evidence of Malnutrition Exists Yes Malnutrition (severe): Acute Illness/Injury Evidenced By Suboptimal Energy Intake ( Severe),Weight Loss (Severe) Clinical Problem Acute Disease or Injury Related Malnutrition Etiology severe, acute malnutrition related to inadequate energy intake d/t resp. failure Signs/Symptoms as evidenced by estimated PO intake meeting <50% of estimated energy needs > 5 days; unintentional 4% wt loss x 9 days Status Active Problem Recommendation Dietitian Recommendations/Changes continue cardiac diet as tolerated; will monitor labs and add CHO controlled diet as indicated. Pt refusing ONS at this time Lab / Micro Data 06/03/23 05:43 06/03/23 05:43 Labs: Laboratory Results - last 24 hr 06/02/23 12:24: POC Glucose 210 H 06/02/23 17:13: POC Glucose 222 H 06/02/23 21:01: POC Glucose 256 H 06/03/23 05:43: WBC 15.6 H, RBC 2.84 L, Hgb 9.3 L, Hct 28.2 L, MCV 99.3 H, MCH 32.7 H, MCHC 33.0, RDW Std Deviation 55.5 H, RDW Coeff of Erlinda 15.4 H, Plt Count 231, MPV 11.0, Neut % (Auto) Not Reportable, Absolute Neuts (auto) 13.8 H, Absolute Lymphs (auto) 1.25, Total Counted 100, Neutrophils % (Manual) 88 H, Lymphocytes % (Manual) 8 L, Monocytes % (Manual) 2, Metamyelocytes % 1, Myelocytes % 1 H, Diff Path Review September, Platelet Estimate ADEQUATE, RBC Morphology NORM C+C, Sodium 133 L, Potassium 4.4, Chloride 101, Carbon Dioxide 29.0, Anion Gap 3 L, BUN 21 H, Creatinine 1.21 H, Estim Creat Clear Calc 62.06, Est GFR (MDRD) Af Amer 59 L, Est GFR (MDRD) Non-Af 49 L, BUN/Creatinine Ratio 17.4, Glucose 186 H, Calcium 8.1 L 06/03/23 05:57: POC Glucose 181 H Micro: Microbiology 06/01/23 21:30 Nasal Secretion MRSA (PCR) - Final 06/01/23 10:05 Nasal Secretion MRSA (PCR) - Final 05/31/23 21:20 Urine, Clean Catch Legionella Antigen - Final 05/31/23 21:20 Urine, Clean Catch Streptococcus pneumoniae Antigen (M - Final 05/31/23 09:30 Mucosa - Nasopharyngeal Respiratory Panel (PCR) - Final Rhythm Strip Rhythm Strip: Sinus Rhythm Rate: 55 Ectopy: None Assessment & Plan Assessment/Plan (1) Acute hypoxemic respiratory failure: PLAN: Plan Acute hypoxic respiratory failure * Secondary to combination of COVID-19 pneumonia COPD? Exacerbation. Managed on noninvasive ventilation with consultation placed to pulmonary medicine. * CTA of the chest no evidence of pulmonary embolism or aortic dissection. Extensive bilateral infiltrates for the most part unchanged the prior examination concerning for pneumonia. Mediastinal adenopathy likely reactive.. * Patient remains on broad-spectrum antibiotic therapy. Tolerated BiPAP during the night. * Leg and strep antigens engative. MRSA negative. * on pip/tazo Recent COVID-19 infection * onset may have been weeks ago. Suspected gram negative pneumonia * CAT scan obtained demonstrated diffuse bilateral airspace opacification. Jody ent managed with broad-spectrum antibiotic therapy with vancomycin as well as Zosyn Acute COPD/asthma exacerbation * Managed with bronchodilator * Methylpred Acute kidney injury * reolved * Creatinine on discharge was 1.1, creatinine on admission was 1.51 started on IV hydration with monitoring of electrolyte Chronic conditions: * Coronary artery disease? With PCI to proximal LAD and distal RCA on 05/17/2022 did continue guideline directed medical therapy * Hypertension- Blood pressure controlled, home medications continued with dose adjustment as needed * Dyslipidemia-Patient is on statin therapy, continued at home dose * Class III obesity with BMI of 50? Complicating care weight loss advised * Diabetes mellitus type II-patient's oral hypoglycemics held. Placed on long acting insulin, Accu-Cheks a.c. and at bedtime and covered with sliding scale insulin * anemia- Secondary to chronic disorder monitoring H&H and transfuse if patient becomes symptomatic or hemoglobin falls below * Rheumatoid arthritis. Patient is on methotrexate at home which is currently being held * obstructive sleep apnea? Patient is on nocturnal CPAP at home * Chronic pain syndrome? Patient is on bupropion as well as Lyrica * GERD? Patient is on PPI * Bipolar disorder? Did continue patient psychotropic medications * Depression with anxiety? Continue home meds DVT prophylaxis ? SC Lovenox Physical deconditioning - Requested for PT OT eval and psychotherapist social worker to assist with discharge planning plan is for patient to be discharged to senior care facility case discussed with case management
--- NOTE | 2023-06-03 09:30 | PCM.PN.HOSP ---
Reason for Visit Reason for Visit: Diagnoses Acute respiratory failure with hypoxia (05/31/23) Subjective Subjective Breathing okay. Got up and ambulated but still requiring 7 L of oxygen with activity. Objective Data Objective Data Vital Signs: Vital Signs Temp Pulse Resp BP Pulse Ox O2 Del Method O2 Flow Rate 36.8 C 71 18 135/66 H 94 Nasal Cannula 4 06/03/23 08:30 06/03/23 08:30 06/03/23 08:30 06/03/23 08:30 06/03/23 08:30 06/03/23 08:30 06/03/23 08:30 FiO2 35 06/03/23 07:18 Oxygen Flow Rate (L/min) 4 Oxygen Delivery Method Nasal Cannula Weight: 121 kg Body Mass Index (BMI) 50.3 Intake & Output: Intake and Output for Last 24 Hours 06/01/23 06/02/23 06/03/23 23:59 23:59 23:59 Intake Total 150 / 630 1260 / 1260 170 / 170 Output Total 0 / 0 Balance 150 / 630 1260 / 1260 170 / 170 Medical Nutrition Assessment Dietitian: Malnutrition Criteria Met Start: 05/31/23 10:14 Freq: Status: Active Protocol: Document 05/31/23 10:14 AG (Rec: 05/31/23 10:15 AG Desktop) Nutrition Malnutrition Evidence of Malnutrition Exists Yes Malnutrition (severe): Acute Illness/Injury Evidenced By Suboptimal Energy Intake ( Severe),Weight Loss (Severe) Clinical Problem Acute Disease or Injury Related Malnutrition Etiology severe, acute malnutrition related to inadequate energy intake d/t resp. failure Signs/Symptoms as evidenced by estimated PO intake meeting <50% of estimated energy needs > 5 days; unintentional 4% wt loss x 9 days Status Active Problem Recommendation Dietitian Recommendations/Changes continue cardiac diet as tolerated; will monitor labs and add CHO controlled diet as indicated. Pt refusing ONS at this time Lab / Micro Data 06/03/23 05:43 06/03/23 05:43 Labs: Laboratory Results - last 24 hr 06/02/23 12:24: POC Glucose 210 H 06/02/23 17:13: POC Glucose 222 H 06/02/23 21:01: POC Glucose 256 H 06/03/23 05:43: WBC 15.6 H, RBC 2.84 L, Hgb 9.3 L, Hct 28.2 L, MCV 99.3 H, MCH 32.7 H, MCHC 33.0, RDW Std Deviation 55.5 H, RDW Coeff of Erlinda 15.4 H, Plt Count 231, MPV 11.0, Neut % (Auto) Not Reportable, Absolute Neuts (auto) 13.8 H, Absolute Lymphs (auto) 1.25, Total Counted 100, Neutrophils % (Manual) 88 H, Lymphocytes % (Manual) 8 L, Monocytes % (Manual) 2, Metamyelocytes % 1, Myelocytes % 1 H, Diff Path Review September, Platelet Estimate ADEQUATE, RBC Morphology NORM C+C, Sodium 133 L, Potassium 4.4, Chloride 101, Carbon Dioxide 29.0, Anion Gap 3 L, BUN 21 H, Creatinine 1.21 H, Estim Creat Clear Calc 62.06, Est GFR (MDRD) Af Amer 59 L, Est GFR (MDRD) Non-Af 49 L, BUN/Creatinine Ratio 17.4, Glucose 186 H, Calcium 8.1 L 06/03/23 05:57: POC Glucose 181 H Micro: Microbiology 06/01/23 21:30 Nasal Secretion MRSA (PCR) - Final 06/01/23 10:05 Nasal Secretion MRSA (PCR) - Final 05/31/23 21:20 Urine, Clean Catch Legionella Antigen - Final 05/31/23 21:20 Urine, Clean Catch Streptococcus pneumoniae Antigen (M - Final 05/31/23 09:30 Mucosa - Nasopharyngeal Respiratory Panel (PCR) - Final Rhythm Strip Rhythm Strip: Sinus Rhythm Rate: 55 Ectopy: None Physical Exam Const alert and no apparent distress HEENT head/scalp atraumatic Resp normal respiratory effort, no retractions, no use of accessory muscles and clear to auscultation bilaterally Cardio regular rate, regular rhythm, S1 normal heart sound and S2 normal heart sound GI normal to inspection, nondistended, normoactive bowel sounds, soft to palpation, non-tender and non-distended Neuro Sensorium / Orientation: awake and alert Assessment & Plan Assessment/Plan (1) Acute hypoxemic respiratory failure: PLAN: Plan Acute hypoxic respiratory failure Secondary to combination of COVID-19 pneumonitis and COPD Exacerbation. Managed on noninvasive ventilation with consultation placed to pulmonary medicine. CTA of the chest no evidence of pulmonary embolism or aortic dissection. Extensive bilateral infiltrates for the most part unchanged the prior examination concerning for pneumonia. Mediastinal adenopathy likely reactive.. Patient remains on broad-spectrum antibiotic therapy. Tolerated BiPAP during the night. Leg and strep antigens engative. MRSA negative. Unclear if patient does actually have a bacterial pneumonia as CAT scan appears to be unchanged. I suspect the patient had severe COVID pneumonitis and would anticipate slow recovery. Talked with the patient she states that she has never had COVID nor had the vaccine. Stating that she is not vaccine person . So I would anticipate a slow recovery over weeks to months. Told the patient that unclear if she would ever be able to come off of oxygen but that will depend on time. Will provide the patient a furosemide challenge. Recent COVID-19 infection onset may have been about a month ago Suspected gram negative pneumonia CAT scan obtained demonstrated diffuse bilateral airspace opacification. Patient managed with broad-spectrum antibiotic therapy with vancomycin as well as Zosyn Acute COPD/asthma exacerbation Managed with bronchodilator Methylpred Acute kidney injury reolved Creatinine on discharge was 1.1, creatinine on admission was 1.51 started on IV hydration with monitoring of electrolyte Chronic conditions: Coronary artery disease? With PCI to proximal LAD and distal RCA on 05/17/2022 did continue guideline directed medical therapy Hypertension- Blood pressure controlled, home medications continued with dose adjustment as needed Dyslipidemia-Patient is on statin therapy, continued at home dose Class III obesity with BMI of 50? Complicating care weight loss advised Diabetes mellitus type II-patient's oral hypoglycemics held. Placed on long acting insulin, Accu-Cheks a.c. and at bedtime and covered with sliding scale insulin anemia- Secondary to chronic disorder monitoring H&H and transfuse if patient becomes symptomatic or hemoglobin falls below Rheumatoid arthritis. Patient is on methotrexate at home which is currently being held obstructive sleep apnea? Patient is on nocturnal CPAP at home Chronic pain syndrome? Patient is on bupropion as well as Lyrica GERD? Patient is on PPI Bipolar disorder? Did continue patient psychotropic medications Depression with anxiety? Continue home meds DVT prophylaxis ? SC Lovenox Physical deconditioning - Requested for PT OT eval and social work lecturer to assist with discharge planning plan is for patient to be discharged to [facility] facility case discussed with case management Charges/Coding Visit Charges Inpatient E&M: 60953 Subs Hosp L2
[2023-06-03] MEDS: Senna/Docusate Sodium 1 Tablet 2 TABLET PO (09:46)
[2023-06-03] MEDS: Pregabalin 75 MG Capsule PO ×2 (09:46→20:41)
--- NOTE | 2023-06-03 10:11 | CASEMGMT ---
[facility] has declined patient. [facility] is also out of beds. SW met with patient. Introduced self and role at [facility]. SW let patient know [facility] is unable to accept her as they have no availability. Patient asked about [facility]. SW let patient know SW can check to see if they take her insurance. SW made a referral to [facility]. Plan: SNF pending accepting facility and pre-cert. Virgie IGLESIAS
[2023-06-03 11:58] LABS: Bedside Glucose 199 mg/dL (74-106)
[2023-06-03 12:57] LABS: Pathologist Review Reviewed
[2023-06-03 13:04] LABS: Pathologist Review Reviewed
[2023-06-03 13:09] LABS: Pathologist Review Reviewed
[2023-06-03] MEDS: Furosemide 40 MG/4 ML Vial IV (14:39)
[2023-06-03] MEDS: Menthol/Lanolin/Calamine/Znox 113 GM Tube 1 APPLIC TOPICAL ×3 (14:41→20:31)
[2023-06-03 17:01] LABS: Bedside Glucose 340 mg/dL (74-106)
[2023-06-03] MEDS: Amitriptyline 25 MG Tablet 75 MG PO (20:40)
[2023-06-03] MEDS: lamoTRIgine 100 MG Tablet 200 MG PO (20:41)
[2023-06-03] MEDS: Atorvastatin Calcium 40 MG Tablet PO (20:41)
[2023-06-03 21:10] LABS: Bedside Glucose 278 mg/dL (74-106)
[2023-06-04] VITALS (13 sets, daily range): BP systolic 104–149; BP diastolic 50–65; PULSE 55–78; RESP 12–22; TEMP 36.3–37; O2SAT 83–100; BMI 50.8
[2023-06-04] MEDS: Piperacil/Tazobactam 3.375 GM in 0.9% Normal Saline (50mL MB+) 50 ML IV ×3 (06:22→21:03)
[2023-06-04] MEDS: Nystatin Powder 15gm Bottle 1 APPLIC TOPICAL ×3 (06:23→21:03)
[2023-06-04] MEDS: Insulin Lispro 100 UNIT/ML INSULN.PEN SC ×4 (06:32→21:01)
[2023-06-04] MEDS: 0.9% Saline Lock 10 ML Syringe IV ×4 (06:49→21:02)
[2023-06-04] MEDS: Ipratropium/Albuterol Sulfate 3 ML AMPUL.NEB INHALATION ×4 (06:53→20:40)
--- NOTE | 2023-06-04 08:33 | PN.HOSP_ITS ---
Reason for Visit Reason for Visit: Diagnoses Acute respiratory failure with hypoxia (05/31/23) Subjective Subjective Still requiring oxygen up to 7 L/m. Objective Data Objective Data Vital Signs: Vital Signs Temp Pulse Resp BP Pulse Ox O2 Del Method O2 Flow Rate 36.3 C L 63 18 104/54 L 100 Bi-pap 4 06/04/23 02:15 06/04/23 02:15 06/04/23 02:15 06/04/23 02:15 06/04/23 02:15 06/04/23 02:15 06/03/23 20:24 FiO2 35 06/04/23 03:05 Oxygen Flow Rate (L/min) [ 7 AMBULATING with Oxygen #3] Oxygen Flow Rate (L/min) [ 6 AMBULATING with Oxygen #2] Oxygen Flow Rate (L/min) [ 3 AMBULATING with Oxygen #1] Oxygen Flow Rate (L/min) [At 6 REST with Oxygen] Oxygen Flow Rate (L/min) 4 Oxygen Delivery Method Bi-pap Weight: 122.1 kg Body Mass Index (BMI) 50.8 Intake & Output: Intake and Output for Last 24 Hours 06/02/23 06/03/23 06/04/23 23:59 23:59 23:59 Intake Total 1260 / 1260 1520 / 1640 230 / 230 Output Total 750 / 750 Balance 1260 / 1260 770 / 890 230 / 230 Medical Nutrition Assessment Dietitian: Malnutrition Criteria Met Start: 05/31/23 10:14 Freq: Status: Active Protocol: Document 05/31/23 10:14 AG (Rec: 05/31/23 10:15 AG Desktop) Nutrition Malnutrition Evidence of Malnutrition Exists Yes Malnutrition (severe): Acute Illness/Injury Evidenced By Suboptimal Energy Intake ( Severe),Weight Loss (Severe) Clinical Problem Acute Disease or Injury Related Malnutrition Etiology severe, acute malnutrition related to inadequate energy intake d/t resp. failure Signs/Symptoms as evidenced by estimated PO intake meeting <50% of estimated energy needs > 5 days; unintentional 4% wt loss x 9 days Status Active Problem Recommendation Dietitian Recommendations/Changes continue cardiac diet as tolerated; will monitor labs and add CHO controlled diet as indicated. Pt refusing ONS at this time Lab / Micro Data 06/04/23 07:19 06/04/23 07:19 Labs: Laboratory Results - last 24 hr 06/01/23 04:45: Diff Path Review Reviewed 06/02/23 04:35: Diff Path Review Reviewed 06/03/23 05:43: Diff Path Review Reviewed 06/03/23 11:27: POC Glucose 199 H 06/03/23 16:33: POC Glucose 340 H 06/03/23 20:39: POC Glucose 278 H Micro: Microbiology 06/01/23 21:30 Nasal Secretion MRSA (PCR) - Final 06/01/23 10:05 Nasal Secretion MRSA (PCR) - Final 05/31/23 21:20 Urine, Clean Catch Legionella Antigen - Final 05/31/23 21:20 Urine, Clean Catch Streptococcus pneumoniae Antigen (M - Final 05/31/23 09:30 Mucosa - Nasopharyngeal Respiratory Panel (PCR) - Final Rhythm Strip Rhythm Strip: Sinus Rhythm Rate: 55 Ectopy: None Physical Exam Const alert and no apparent distress Resp normal respiratory effort, no retractions, no use of accessory muscles and clear to auscultation bilaterally Cardio regular rate, regular rhythm, S1 normal heart sound and S2 normal heart sound GI normal to inspection, nondistended, normoactive bowel sounds, soft to palpation, non-tender and non-distended Neuro Sensorium / Orientation: awake and alert Assessment & Plan Assessment/Plan (1) Acute hypoxemic respiratory failure: PLAN: Plan Acute hypoxic respiratory failure * Secondary to combination of COVID-19 pneumonitis and COPD Exacerbation. Managed on noninvasive ventilation with consultation placed to pulmonary medicine. * CTA of the chest no evidence of pulmonary embolism or aortic dissection. Extensive bilateral infiltrates for the most part unchanged the prior examination concerning for pneumonia. Mediastinal adenopathy likely reactive.. * Patient remains on broad-spectrum antibiotic therapy. Tolerated BiPAP during the night. * Leg and strep antigens engative. MRSA negative. * Unclear if patient does actually have a bacterial pneumonia as CAT scan appears to be unchanged. I suspect the patient had severe COVID pneumonitis and would anticipate slow recovery. Talked with the patient she states that she has never had COVID nor had the vaccine. Stating that she is not vaccine person . So I would anticipate a slow recovery over weeks to months. Told the patient that unclear if she would ever be able to come off of oxygen but that will depend on time. * Will provide the patient a furosemide challenge. Recent COVID-19 infection * onset may have been about a month ago Suspected gram negative pneumonia * CAT scan obtained demonstrated diffuse bilateral airspace opacification. Patient managed with broad-spectrum antibiotic therapy with vancomycin as well as Zosyn Acute COPD/asthma exacerbation * Managed with bronchodilator * Methylpred Acute kidney injury * reolved * Creatinine on discharge was 1.1, creatinine on admission was 1.51 started on IV hydration with monitoring of electrolyte Chronic conditions: * Coronary artery disease? With PCI to proximal LAD and distal RCA on 05/17/2022 did continue guideline directed medical therapy * Hypertension- Blood pressure controlled, home medications continued with dose adjustment as needed * Dyslipidemia-Patient is on statin therapy, continued at home dose * Class III obesity with BMI of 50? Complicating care weight loss advised * Diabetes mellitus type II-patient's oral hypoglycemics held. Placed on long acting insulin, Accu-Cheks a.c. and at bedtime and covered with sliding scale insulin * anemia- Secondary to chronic disorder monitoring H&H and transfuse if patient becomes symptomatic or hemoglobin falls below * Rheumatoid arthritis. Patient is on methotrexate at home which is currently being held * obstructive sleep apnea? Patient is on nocturnal CPAP at home * Chronic pain syndrome? Patient is on bupropion as well as Lyrica * GERD? Patient is on PPI * Bipolar disorder? Did continue patient psychotropic medications * Depression with anxiety? Continue home meds DVT prophylaxis ? [place] Lovenox Physical deconditioning - Requested for PT OT eval and social services specialist to assist with discharge planning plan is for patient to be discharged to senior care facility case discussed with case management Charges/Coding Visit Charges Inpatient E&M: 77298 Subs Hosp L2
[2023-06-04 08:34] LABS: Hematocrit 29.5 % (37-47); Hemoglobin 9.9 g/dL (12.0-15.0); Mean Corp Hgb Conc 33.6 g/dL (32-36); Mean Corpuscular Hgb 33.2 pg (27.0-32.0); Mean Platelet Vol. 10.9 fl (6.2-12.0); POSITIVE COUNT YES; POSITIVE MORPHOLOGY YES; Platelet Count 224 K/mm3 (150-450); RBC Distribution Width CV 15.3 % (11.6-14.6); RBC Distribution Width SD 54.9 fl (35.1-43.9); Red Blood Count 2.98 M/mm3 (4.2-5.4); White Blood Count 14.9 K/mm3 (4.4-11.0)
[2023-06-04 08:37] LABS: Differential Indicated MANUAL DIFF
[2023-06-04 08:54] LABS: Anion Gap 2 (5-15); BUN 23 mg/dL (7-18); BUN/Creat Ratio 18.5 RATIO (10-20); Calcium,Total 8.6 mg/dL (8.5-10.1); Chloride 102 mmol/L (98-107); Creatinine, Serum 1.24 mg/dL (0.55-1.02); EST Glomerular Filtration Rate 47 mL/min (>60); Est Glom Filt Rate - Afr Amer 57 mL/min (>60); Estimated Creatinine Clearance 61.26 ml/min; Glucose 184 mg/dL (74-106); Potassium 4.2 mmol/L (3.5-5.1); Sodium Level 134 mmol/L (136-145)
--- NOTE | 2023-06-04 09:34 | CASEMGMT ---
Addendum entered by Virgie Tamayo 06/04/23 11:13: SHAI let patient know that TCU is now able to take her. Tita will start the pre-cert. Virgie IGLESIAS Original Note: SHAI let patient know TCU is unable to take her at d/c. Patient said she will just go home at discharge. SW told patient there are several other facilities available. Patient said she will go home. SHAI asked patient if she would like home health and patient was agreeable. SHAI notified [facility]. Virgie IGLESIAS
--- NOTE | 2023-06-04 09:41 | PCM.PN.INT ---
Assessment & Plan Assessment/Plan (1) Acute hypoxemic respiratory failure: PLAN: Plan RECOMMENDATIONS: 1. Continue PAP therapy with naps and nightly, per home regimen. 2. Supplemental oxygen for saturations greater than 90%. 3. Continue scheduled bronchodilators and steroids. 4. Continue empiric antimicrobials, pending repeat infectious workup. 5-day course of Zosyn likely adequate 5. Encourage incentive spirometer and out of bed as tolerated 6. Wean steroids. Attempt diuresis 7. Continue appropriate DVT prophylaxis. 8. Encourage incentive spirometer use and mobilize patient as tolerated. IMPRESSIONS: 1. Acute hypoxemic respiratory failure The patient was just discharged from the hospital 2 days ago after having been admitted with a respiratory failure, which was felt to be secondary to an asthma exacerbation precipitated by COVID-19 pneumonia. There was also concern for a secondary bacterial pneumonia. Therefore, the patient was treated with antibiotics and Decadron during that hospitalization. Patient does appear to be responding to diuresis. No PE was noted on CTA of the chest. Patient would benefit from pulmonary recruitment with incentive spirometer. Echocardiogram was not suggestive of CHF or pulmonary hypertension. 5 days of Zosyn is likely sufficient 2. History of obstructive sleep apnea Continue nocturnal PAP therapy per home regimen. Stressed to the patient that this should be used with all sleep 3. Morbid obesity/tobacco dependency/rheumatoid arthritis/chronic pain syndrome/coronary artery disease/hypertension Complicates care, management, recovery and prognosis. Continue supportive care as noted above. This note was generated with [employer] dictation software. It may contain incorrect words, spelling, and punctuation that were not noted in checking the note before signing. Subjective Subjective Patient did well overnight. No acute issues were reported. Patient subjectively feels unchanged compared to previous. Patient's baseline saturations have been improving. Objective Data Objective Data Vital Signs: Vital Signs Temp Pulse Resp BP Pulse Ox O2 Del Method O2 Flow Rate 36.3 C L 70 20 H 149/65 H 89 Nasal Cannula 2 06/04/23 09:00 06/04/23 09:00 06/04/23 09:00 06/04/23 09:00 06/04/23 09:02 06/04/23 09:00 06/04/23 09:02 FiO2 35 06/04/23 03:05 Oxygen Flow Rate (L/min) [ 7 AMBULATING with Oxygen #3] Oxygen Flow Rate (L/min) [ 4 AMBULATING with Oxygen #2] Oxygen Flow Rate (L/min) [ 2 AMBULATING with Oxygen #1] Oxygen Flow Rate (L/min) [At 6 REST with Oxygen] Oxygen Flow Rate (L/min) [At 2 REST on Room Air] Oxygen Flow Rate (L/min) 4 Oxygen Delivery Method Nasal Cannula Weight: 122.1 kg Body Mass Index (BMI) 50.8 Intake & Output: Intake and Output for Last 24 Hours 06/02/23 06/03/23 06/04/23 23:59 23:59 23:59 Intake Total 1260 / 1260 1520 / 1640 230 / 230 Output Total 750 / 750 Balance 1260 / 1260 770 / 890 230 / 230 Medical Nutrition Assessment Dietitian: Malnutrition Criteria Met Start: 05/31/23 10:14 Freq: Status: Active Protocol: Document 05/31/23 10:14 AG (Rec: 05/31/23 10:15 AG Desktop) Nutrition Malnutrition Evidence of Malnutrition Exists Yes Malnutrition (severe): Acute Illness/Injury Evidenced By Suboptimal Energy Intake ( Severe),Weight Loss (Severe) Clinical Problem Acute Disease or Injury Related Malnutrition Etiology severe, acute malnutrition related to inadequate energy intake d/t resp. failure Signs/Symptoms as evidenced by estimated PO intake meeting <50% of estimated energy needs > 5 days; unintentional 4% wt loss x 9 days Status Active Problem Recommendation Dietitian Recommendations/Changes continue cardiac diet as tolerated; will monitor labs and add CHO controlled diet as indicated. Pt refusing ONS at this time Lab / Micro Data Attestation: I reviewed the patient's lab results. 06/04/23 07:19 06/04/23 07:19 Labs: Laboratory Results - last 24 hr 06/01/23 04:45: Diff Path Review Reviewed 06/02/23 04:35: Diff Path Review Reviewed 06/03/23 05:43: Diff Path Review Reviewed 06/03/23 11:27: POC Glucose 199 H 06/03/23 16:33: POC Glucose 340 H 06/03/23 20:39: POC Glucose 278 H 06/04/23 07:19: WBC 14.9 H, RBC 2.98 L, Hgb 9.9 L, Hct 29.5 L, MCV 99.0, MCH 33.2 H, MCHC 33.6, RDW Std Deviation 54.9 H, RDW Coeff of Erlinda 15.3 H, Plt Count 224, MPV 10.9, Neut % (Auto) Not Reportable, Sodium 134 L, Potassium 4.2, Chloride 102, Carbon Dioxide 30.0, Anion Gap 2 L, BUN 23 H, Creatinine 1.24 H, Estim Creat Clear Calc 61.26, Est GFR (MDRD) Af Amer 57 L, Est GFR (MDRD) Non-Af 47 L, BUN/Creatinine Ratio 18.5, Glucose 184 H, Calcium 8.6 Micro: Microbiology 06/01/23 21:30 Nasal Secretion MRSA (PCR) - Final 06/01/23 10:05 Nasal Secretion MRSA (PCR) - Final 05/31/23 21:20 Urine, Clean Catch Legionella Antigen - Final 05/31/23 21:20 Urine, Clean Catch Streptococcus pneumoniae Antigen (M - Final 05/31/23 09:30 Mucosa - Nasopharyngeal Respiratory Panel (PCR) - Final Rhythm Strip Rhythm Strip: Sinus Rhythm Rate: 63 Ectopy: None Physical Exam Const alert and no apparent distress Constitutional Narrative: Morbidly obese on nasal cannula oxygen with no conversational dyspnea General Appearance: cooperative HEENT normocephalic and head/scalp atraumatic Eyes PERRL, EOMs intact bilaterally and conjunctivae normal Neck supple General: trachea midline Chest inspection of chest normal Resp normal respiratory effort Resp Narrative: Exam somewhat limited secondary to body habitus Auscultation: wheezes and diminished lung sounds; Negative for rales or rhonchi Cardio regular rate, regular rhythm, S1 normal heart sound, S2 normal heart sound, no murmurs, no rub and no gallops GI normal to inspection, nondistended, normoactive bowel sounds Extremity no clubbing, cyanosis or edema Skin no rashes or lesions noted Neuro CN's II-XII intact bilaterally, moves all extremities and no focal motor deficits Psych cooperative and affect normal Charges/Coding Visit Charges Inpatient E&M: 82014 Subs Hosp L2
[2023-06-04 09:42] LABS: Lymphocyte 16 % (19-41); Metamyelocyte 1 % (0-1); Monocyte 4 % (0-10); Myelocyte 3 % (0-0); Neutrophil-Segmented 76 % (47-70); Total Cells Counted 100 (MANUAL DIFF)
[2023-06-04 09:43] LABS: Platelet Estimate ADEQUATE (ADEQ); Red Cell Morphology NORM C+C NORMAL (NORM C&C); Toxic Granulation 1+
[2023-06-04 09:44] LABS: Absolute Neutrophil Count 11.3 X10^3/uL (2.0-7.7)
[2023-06-04 09:45] LABS: Absolute Lymphocyte Count 2.38 X10^3/uL (0.83-4.51)
[2023-06-04] MEDS: Losartan Potassium 50 MG Tablet PO (10:48)
[2023-06-04] MEDS: lamoTRIgine 100 MG Tablet PO (10:48)
[2023-06-04] MEDS: Pantoprazole Sodium 40 MG Tablet PO (10:48)
[2023-06-04] MEDS: Aspirin E.C. 81 MG Tablet PO (10:48)
[2023-06-04] MEDS: Clopidogrel Bisulfate 75 MG Tablet PO (10:48)
[2023-06-04] MEDS: Enoxaparin 40 MG/0.4 ML Syringe SC ×2 (10:49→21:03)
[2023-06-04] MEDS: Escitalopram Oxalate 20 MG Tablet 30 MG PO (10:49)
[2023-06-04] MEDS: Furosemide 40 MG/4 ML Vial IV ×2 (10:49→17:30)
[2023-06-04] MEDS: Senna/Docusate Sodium 1 Tablet 2 TABLET PO (11:22)
[2023-06-04] MEDS: Pregabalin 75 MG Capsule PO ×2 (11:22→21:15)
[2023-06-04 11:44] LABS: Bedside Glucose 181 mg/dL (74-106)
[2023-06-04] MEDS: Menthol/Lanolin/Calamine/Znox 113 GM Tube 1 APPLIC TOPICAL ×2 (14:59→21:02)
[2023-06-04 16:18] LABS: Bedside Glucose 197 mg/dL (74-106)
[2023-06-04 16:19] LABS: Bedside Glucose 215 mg/dL (74-106)
[2023-06-04] MEDS: lamoTRIgine 100 MG Tablet 200 MG PO (21:02)
[2023-06-04] MEDS: Atorvastatin Calcium 40 MG Tablet PO (21:02)
[2023-06-04] MEDS: Amitriptyline 25 MG Tablet 75 MG PO (21:02)
[2023-06-04 21:46] LABS: Bedside Glucose 168 mg/dL (74-106)
[2023-06-05] VITALS (13 sets, daily range): BP systolic 102–121; BP diastolic 43–57; PULSE 57–70; RESP 12–25; TEMP 36.3–36.7; O2SAT 80–98; BMI 51.1
[2023-06-05] MEDS: Nystatin Powder 15gm Bottle 1 APPLIC TOPICAL ×3 (05:12→20:42)
[2023-06-05] MEDS: Piperacil/Tazobactam 3.375 GM in 0.9% Normal Saline (50mL MB+) 50 ML IV ×3 (05:12→20:46)
[2023-06-05] MEDS: Ipratropium/Albuterol Sulfate 3 ML AMPUL.NEB INHALATION ×4 (06:51→19:26)
[2023-06-05] MEDS: Insulin Lispro 100 UNIT/ML INSULN.PEN SC ×4 (06:54→20:41)
[2023-06-05 07:13] LABS: Bedside Glucose 167 mg/dL (74-106)
--- NOTE | 2023-06-05 07:59 | PN.HOSP_ITS ---
Reason for Visit Reason for Visit: Diagnoses Acute respiratory failure with hypoxia (05/31/23) Subjective Subjective Breathing okay Objective Data Objective Data Vital Signs: Vital Signs Temp Pulse Resp BP Pulse Ox O2 Del Method O2 Flow Rate 36.3 C L 60 19 H 106/56 L 98 Bi-pap 3 06/05/23 03:00 06/05/23 03:05 06/05/23 03:05 06/05/23 03:00 06/05/23 03:05 06/05/23 03:00 06/04/23 21:00 FiO2 35 06/05/23 03:05 Oxygen Flow Rate (L/min) [ 7 AMBULATING with Oxygen #3] Oxygen Flow Rate (L/min) [ 4 AMBULATING with Oxygen #2] Oxygen Flow Rate (L/min) [ 2 AMBULATING with Oxygen #1] Oxygen Flow Rate (L/min) [At 6 REST with Oxygen] Oxygen Flow Rate (L/min) [At 2 REST on Room Air] Oxygen Flow Rate (L/min) 3 Oxygen Delivery Method Bi-pap Weight: 122.8 kg Body Mass Index (BMI) 51.1 Intake & Output: Intake and Output for Last 24 Hours 06/03/23 06/04/23 06/05/23 23:59 23:59 23:59 Intake Total 1520 / 1640 2130 / 2130 50 / 50 Output Total 750 / 750 1500 / 1500 Balance 770 / 890 630 / 630 50 / 50 Medical Nutrition Assessment Dietitian: Malnutrition Criteria Met Start: 05/31/23 10:14 Freq: Status: Active Protocol: Document 05/31/23 10:14 AG (Rec: 05/31/23 10:15 AG Desktop) Nutrition Malnutrition Evidence of Malnutrition Exists Yes Malnutrition (severe): Acute Illness/Injury Evidenced By Suboptimal Energy Intake ( Severe),Weight Loss (Severe) Clinical Problem Acute Disease or Injury Related Malnutrition Etiology severe, acute malnutrition related to inadequate energy intake d/t resp. failure Signs/Symptoms as evidenced by estimated PO intake meeting <50% of estimated energy needs > 5 days; unintentional 4% wt loss x 9 days Status Active Problem Recommendation Dietitian Recommendations/Changes continue cardiac diet as tolerated; will monitor labs and add CHO controlled diet as indicated. Pt refusing ONS at this time Lab / Micro Data 06/05/23 07:06 06/05/23 07:06 Labs: Laboratory Results - last 24 hr 06/04/23 06:31: POC Glucose 197 H 06/04/23 07:19: WBC 14.9 H, RBC 2.98 L, Hgb 9.9 L, Hct 29.5 L, MCV 99.0, MCH 33.2 H, MCHC 33.6, RDW Std Deviation 54.9 H, RDW Coeff of Erlinda 15.3 H, Plt Count 224, MPV 10.9, Neut % (Auto) Not Reportable, Absolute Neuts (auto) 11.3 H, Absolute Lymphs (auto) 2.38, Total Counted 100, Neutrophils % (Manual) 76 H, Lymphocytes % (Manual) 16 L, Monocytes % (Manual) 4, Metamyelocytes % 1, Myelocytes % 3 H, Diff Path Review May foll, Toxic Granulation 1+, Platelet Estimate ADEQUATE, RBC Morphology NORM C+C, Sodium 134 L, Potassium 4.2, Chloride 102, Carbon Dioxide 30.0, Anion Gap 2 L, BUN 23 H, Creatinine 1.24 H, Estim Creat Clear Calc 61.26, Est GFR (MDRD) Af Amer 57 L, Est GFR (MDRD) Non-Af 47 L, BUN/Creatinine Ratio 18.5, Glucose 184 H, Calcium 8.6 06/04/23 11:24: POC Glucose 181 H 06/04/23 16:01: POC Glucose 215 H 06/04/23 20:59: POC Glucose 168 H 06/05/23 06:50: POC Glucose 167 H Micro: Microbiology 06/01/23 21:30 Nasal Secretion MRSA (PCR) - Final 06/01/23 10:05 Nasal Secretion MRSA (PCR) - Final 05/31/23 21:20 Urine, Clean Catch Legionella Antigen - Final 05/31/23 21:20 Urine, Clean Catch Streptococcus pneumoniae Antigen (M - Final 05/31/23 09:30 Mucosa - Nasopharyngeal Respiratory Panel (PCR) - Final Rhythm Strip Rhythm Strip: Sinus Rhythm Rate: 63 Ectopy: None Physical Exam Const alert and no apparent distress Constitutional Narrative: No respiratory stress. No conversational dyspnea. HEENT head/scalp atraumatic and moist oral mucous membranes Resp normal respiratory effort, no retractions and no use of accessory muscles Auscultation: rhonchi and wheezes Cardio regular rate, regular rhythm, S1 normal heart sound and S2 normal heart sound GI normal to inspection, nondistended, normoactive bowel sounds GI Narrative: Bruising on abdomen bilaterally. Neuro Sensorium / Orientation: awake and alert Psych affect normal Assessment & Plan Assessment/Plan (1) Acute hypoxemic respiratory failure: PLAN: Plan Acute hypoxic respiratory failure * Secondary to combination of COVID-19 pneumonitis and COPD Exacerbation. Managed on noninvasive ventilation with consultation placed to pulmonary med icine. * Leg and strep antigens negative. MRSA negative. * Unclear if patient does actually have a bacterial pneumonia as CAT scan appears to be unchanged. I suspect the patient had severe COVID pneumonitis and would anticipate slow recovery. Talked with the patient she states that she has never had COVID nor had the vaccine. Stating that she is not vaccine person . So I would anticipate a slow recovery over weeks to months. Told the patient that unclear if she would ever be able to come off of oxygen but that will depend on time. * Continue furosemide challenge. Recent COVID-19 infection * onset may have been about a month ago Suspected gram negative pneumonia * CAT scan obtained demonstrated diffuse bilateral airspace opacification. Patient managed with broad-spectrum antibiotic therapy with vancomycin as well as Zosyn Acute COPD/asthma exacerbation * Managed with bronchodilator * Methylpred Acute kidney injury * reolved * Creatinine on discharge was 1.1, creatinine on admission was 1.51 started on IV hydration with monitoring of electrolyte Chronic conditions: * Coronary artery disease? With PCI to proximal LAD and distal RCA on 05/17/2022 did continue guideline directed medical therapy * Hypertension- Blood pressure controlled, home medications continued with dose adjustment as needed * Dyslipidemia-Patient is on statin therapy, continued at home dose * Class III obesity with BMI of 50? Complicating care weight loss advised * Diabetes mellitus type II-patient's oral hypoglycemics held. Placed on long acting insulin, Accu-Cheks a.c. and at bedtime and covered with sliding scale insulin * anemia- Secondary to chronic disorder monitoring H&H and transfuse if patient becomes symptomatic or hemoglobin falls below * Rheumatoid arthritis. Patient is on methotrexate at home which is currently being held * obstructive sleep apnea? Patient is on nocturnal CPAP at home * Chronic pain syndrome? Patient is on bupropion as well as Lyrica * GERD? Patient is on PPI * Bipolar disorder? Did continue patient psychotropic medications * Depression with anxiety? Continue home meds DVT prophylaxis ? SC Lovenox Disposition: Plan for the transitional care unit pending insurance autho rization.
[2023-06-05 08:08] LABS: Hematocrit 28.4 % (37-47); Hemoglobin 9.3 g/dL (12.0-15.0); Mean Corp Hgb Conc 32.7 g/dL (32-36); Mean Corpuscular Hgb 32.7 pg (27.0-32.0); Mean Platelet Vol. 10.9 fl (6.2-12.0); POSITIVE COUNT YES; POSITIVE MORPHOLOGY YES; Platelet Count 191 K/mm3 (150-450); RBC Distribution Width CV 15.3 % (11.6-14.6); RBC Distribution Width SD 55.7 fl (35.1-43.9); Red Blood Count 2.84 M/mm3 (4.2-5.4); White Blood Count 12.6 K/mm3 (4.4-11.0)
[2023-06-05 08:10] LABS: Differential Indicated MANUAL DIFF
[2023-06-05 08:33] LABS: Basophil 1 % (0-1); Eosinophil 1 % (0-5); Lymphocyte 12 % (19-41); Monocyte 4 % (0-10); Myelocyte 1 % (0-0); Neutrophil-Band 1 % (0-5); Neutrophil-Segmented 80 % (47-70); Total Cells Counted 100 (MANUAL DIFF)
[2023-06-05 08:34] LABS: Anisocytosis 1+
[2023-06-05 08:35] LABS: Hypersegmented Neutrophils 1+
[2023-06-05 08:36] LABS: Absolute Neutrophil Count 10.2 X10^3/uL (2.0-7.7)
[2023-06-05 08:37] LABS: Anion Gap 3 (5-15); BUN 23 mg/dL (7-18); BUN/Creat Ratio 16.8 RATIO (10-20); Calcium,Total 8.3 mg/dL (8.5-10.1); Chloride 101 mmol/L (98-107); Creatinine, Serum 1.37 mg/dL (0.55-1.02); EST Glomerular Filtration Rate 42 mL/min (>60); Est Glom Filt Rate - Afr Amer 51 mL/min (>60); Estimated Creatinine Clearance 55.64 ml/min; Glucose 179 mg/dL (74-106); Potassium 4.2 mmol/L (3.5-5.1); Sodium Level 136 mmol/L (136-145)
[2023-06-05] MEDS: Pregabalin 75 MG Capsule PO ×2 (09:05→20:42)
[2023-06-05] MEDS: Clopidogrel Bisulfate 75 MG Tablet PO (09:05)
[2023-06-05] MEDS: Carvedilol 6.25 MG Tablet PO ×2 (09:05→17:52)
[2023-06-05] MEDS: Pantoprazole Sodium 40 MG Tablet PO (09:05)
[2023-06-05] MEDS: Aspirin E.C. 81 MG Tablet PO (09:05)
[2023-06-05] MEDS: lamoTRIgine 100 MG Tablet PO (09:05)
[2023-06-05] MEDS: Losartan Potassium 50 MG Tablet PO (09:05)
[2023-06-05] MEDS: Furosemide 40 MG/4 ML Vial IV ×2 (09:05→17:52)
[2023-06-05] MEDS: Escitalopram Oxalate 20 MG Tablet 30 MG PO (09:06)
[2023-06-05] MEDS: Menthol/Lanolin/Calamine/Znox 113 GM Tube 1 APPLIC TOPICAL ×4 (09:08→20:42)
[2023-06-05] MEDS: 0.9% Saline Lock 10 ML Syringe IV ×3 (09:11→20:42)
[2023-06-05 11:38] LABS: Bedside Glucose 174 mg/dL (74-106)
--- NOTE | 2023-06-05 13:37 | PCM.PN.INT ---
Assessment & Plan Assessment/Plan (1) Acute hypoxemic respiratory failure: PLAN: Plan RECOMMENDATIONS: 1. Continue PAP therapy with naps and nightly, per home regimen. 2. Supplemental oxygen for saturations greater than 90%. 3. Continue scheduled bronchodilators and steroids. 4. Continue empiric antimicrobials, pending repeat infectious workup. 5-day course of Zosyn likely adequate 5. Encourage incentive spirometer and out of bed as tolerated 6. Likely transition to p.o. steroids tomorrow. Attempt diuresis 7. Continue appropriate DVT prophylaxis. 8. Encourage incentive spirometer use and mobilize patient as tolerated. IMPRESSIONS: 1. Acute hypoxemic respiratory failure The patient was just discharged from the hospital 2 days ago after having been admitted with a respiratory failure, which was felt to be secondary to an asthma exacerbation precipitated by COVID-19 pneumonia. There was also concern for a secondary bacterial pneumonia. Therefore, the patient was treated with antibiotics and Decadron during that hospitalization. Patient does appear to be responding to diuresis. No PE was noted on CTA of the chest. Patient would benefit from pulmonary recruitment with incentive spirometer. Echocardiogram was not suggestive of CHF or pulmonary hypertension. 5 days of Zosyn is likely sufficient. Patient is currently on diuretics and appears to be responding well. Will need to watch renal function closely. 2. History of obstructive sleep apnea Continue nocturnal PAP therapy per home regimen. Stressed to the patient that this should be used with all sleep 3. Morbid obesity/tobacco dependency/rheumatoid arthritis/chronic pain syndrome/coronary artery disease/hypertension Complicates care, management, recovery and prognosis. Continue supportive care as noted above. This note was generated with [employer] dictation software. It may contain incorrect words, spelling, and punctuation that were not noted in checking the note before signing. Subjective Subjective Patient did well overnight. No acute issues were reported. Patient subjectively feels improved compared to previous. Patient was able to be moved down to 2 L/min at rest during my evaluation. Patient does have inaccurate I's and O's. Patient was unable to be discharged yesterday secondary to high oxygen requirements with ambulation Objective Data Objective Data Vital Signs: Vital Signs Temp Pulse Resp BP Pulse Ox O2 Del Method O2 Flow Rate 36.5 C L 68 20 H 110/56 L 97 High Flow 3 06/05/23 09:00 06/05/23 10:42 06/05/23 10:42 06/05/23 09:00 06/05/23 09:00 06/05/23 09:05 06/05/23 09:00 FiO2 40 06/05/23 06:51 Oxygen Flow Rate (L/min) [ 7 AMBULATING with Oxygen #3] Oxygen Flow Rate (L/min) [ 4 AMBULATING with Oxygen #2] Oxygen Flow Rate (L/min) [ 2 AMBULATING with Oxygen #1] Oxygen Flow Rate (L/min) [At 6 REST with Oxygen] Oxygen Flow Rate (L/min) [At 2 REST on Room Air] Oxygen Flow Rate (L/min) 3 Oxygen Delivery Method High Flow Weight: 122.8 kg Body Mass Index (BMI) 51.1 Intake & Output: Intake and Output for Last 24 Hours 06/03/23 06/04/23 06/05/23 23:59 23:59 23:59 Intake Total 1520 / 1640 2130 / 2130 750 / 750 Output Total 750 / 750 1500 / 1500 500 / 500 Balance 770 / 890 630 / 630 250 / 250 Medical Nutrition Assessment Dietitian: Malnutrition Criteria Met Start: 05/31/23 10:14 Freq: Status: Active Protocol: Document 05/31/23 10:14 AG (Rec: 05/31/23 10:15 AG Desktop) Nutrition Malnutrition Evidence of Malnutrition Exists Yes Malnutrition (severe): Acute Illness/Injury Evidenced By Suboptimal Energy Intake ( Severe),Weight Loss (Severe) Clinical Problem Acute Disease or Injury Related Malnutrition Etiology severe, acute malnutrition related to inadequate energy intake d/t resp. failure Signs/Symptoms as evidenced by estimated PO intake meeting <50% of estimated energy needs > 5 days; unintentional 4% wt loss x 9 days Status Active Problem Recommendation Dietitian Recommendations/Changes continue cardiac diet as tolerated; will monitor labs and add CHO controlled diet as indicated. Pt refusing ONS at this time Lab / Micro Data Attestation: I reviewed the patient's lab results. 06/05/23 07:06 06/05/23 07:06 Labs: Laboratory Results - last 24 hr 06/04/23 06:31: POC Glucose 197 H 06/04/23 16:01: POC Glucose 215 H 06/04/23 20:59: POC Glucose 168 H 06/05/23 06:50: POC Glucose 167 H 06/05/23 07:06: WBC 12.6 H, RBC 2.84 L, Hgb 9.3 L, Hct 28.4 L, MCV 100.0 H, MCH 32.7 H, MCHC 32.7, RDW Std Deviation 55.7 H, RDW Coeff of Erlinda 15.3 H, Plt Count 191, MPV 10.9, Neut % (Auto) Not Reportable, Absolute Neuts (auto) 10.2 H, Absolute Lymphs (auto) 1.50, Total Counted 100, Neutrophils % (Manual) 80 H, Band Neutrophils % 1, Lymphocytes % (Manual) 12 L, Monocytes % (Manual) 4, Eosinophils % (Manual) 1, Basophils % (Manual) 1, Myelocytes % 1 H, Diff Path Review May foll, Hypersegmented Neuts 1+ H, Anisocytosis 1+, Sodium 136, Potassium 4.2, Chloride 101, Carbon Dioxide 32.0, Anion Gap 3 L, BUN 23 H, Creatinine 1.37 H, Estim Creat Clear Calc 55.64, Est GFR (MDRD) Af Amer 51 L, Est GFR (MDRD) Non-Af 42 L, BUN/Creatinine Ratio 16.8, Glucose 179 H, Calcium 8.3 L 06/05/23 11:03: POC Glucose 174 H Micro: Microbiology 06/01/23 21:30 Nasal Secretion MRSA (PCR) - Final 06/01/23 10:05 Nasal Secretion MRSA (PCR) - Final 05/31/23 21:20 Urine, Clean Catch Legionella Antigen - Final 05/31/23 21:20 Urine, Clean Catch Streptococcus pneumoniae Antigen (M - Final 05/31/23 09:30 Mucosa - Nasopharyngeal Respiratory Panel (PCR) - Final Rhythm Strip Rhythm Strip: Sinus Rhythm Rate: 63 Ectopy: None Physical Exam Const alert and no apparent distress Constitutional Narrative: Morbidly obese on nasal cannula oxygen with no conversational dyspnea. Patient sitting in the chair during my evaluation General Appearance: cooperative HEENT normocephalic and head/scalp atraumatic Eyes PERRL, EOMs intact bilaterally and conjunctivae normal Neck supple General: trachea midline Chest inspection of chest normal Resp normal respiratory effort Resp Narrative: Exam somewhat limited secondary to body habitus Auscultation: wheezes and diminished lung sounds; Negative for rales or rhonchi Cardio regular rate, regular rhythm, S1 normal heart sound, S2 normal heart sound, no murmurs, no rub and no gallops GI normal to inspection, nondistended, normoactive bowel sounds Extremity no clubbing, cyanosis or edema Skin no rashes or lesions noted Neuro CN's II-XII intact bilaterally, moves all extremities and no focal motor deficits Psych cooperative and affect normal Charges/Coding Visit Charges Inpatient E&M: 81311 Subs Hosp L2
--- NOTE | 2023-06-05 14:29 | TREXTCAR_ITS ---
Diet Diet Order/Speech Therapy: 06/02/23 03:32 ADA [Diet: Cardiac: Calorie-Controlled] Dietary Modifications:: Cardiac / Heart Healthy Is pt able to select menu?: No How many daily calories?: 1800 calorie Routine Orders/Code Status O2 Liters per Minute: 4 at rest, 6 with activity. Keep sats greater than or equal to 90 O2 Frequency: Continuous Routine Lab Work: CBC and BMP Code Status: Full Code Therapies Physical Therapy: Eval and Treat Occupational Therapy: Eval and Treat Problem/Diagnosis (1) Acute hypoxemic respiratory failure: Status: Acute Code(s): J96.01 - Acute respiratory failure with hypoxia Plan Acute hypoxic respiratory failure * Secondary to combination of COVID-19 pneumonitis and COPD Exacerbation. Managed on noninvasive ventilation with consultation placed to pulmonary medicine. * Leg and strep antigens negative. MRSA negative. * Unclear if patient does actually have a bacterial pneumonia as CAT scan appears to be unchanged. I suspect the patient had severe COVID pneumonitis and would anticipate slow recovery. Talked with the patient she states that she has never had COVID nor had the vaccine. Stating that she is not vaccine person . So I would anticipate a slow recovery over weeks to months. Told the patient that unclear if she would ever be able to come off of oxygen but that will depend on time. * Continue furosemide challenge. Recent COVID-19 infection * onset may have been about a month ago Suspected gram negative pneumonia * CAT scan obtained demonstrated diffuse bilateral airspace opacification. Patient managed with broad-spectrum antibiotic therapy with vancomycin as well as Zosyn Acute COPD/asthma exacerbation * Managed with bronchodilator * Methylpred Acute kidney injury * reolved * Creatinine on discharge was 1.1, creatinine on admission was 1.51 started on IV hydration with monitoring of electrolyte Chronic conditions: * Coronary artery disease? With PCI to proximal LAD and distal RCA on 05/17/2022 did continue guideline directed medical therapy * Hypertension- Blood pressure controlled, home medications continued with dose adjustment as needed * Dyslipidemia-Patient is on statin therapy, continued at home dose * Class III obesity with BMI of 50? Complicating care weight loss advised * Diabetes mellitus type II-patient's oral hypoglycemics held. Placed on long acting insulin, Accu-Cheks a.c. and at bedtime and covered with sliding scale insulin * anemia- Secondary to chronic disorder monitoring H&H and transfuse if patient becomes symptomatic or hemoglobin falls below * Rheumatoid arthritis. Patient is on methotrexate at home which is currently being held * obstructive sleep apnea? Patient is on nocturnal CPAP at home * Chronic pain syndrome? Patient is on bupropion as well as Lyrica * GERD? Patient is on PPI * Bipolar disorder? Did continue patient psychotropic medications * Depression with anxiety? Continue home meds DVT prophylaxis ? SC Lovenox Disposition: Plan for the transitional care unit pending insurance authorization. Allergies/Procedures Done in Hospital Allergies tramadol HCl [From Ultram] Allergy (Verified 05/31/23 01:20) Rash cariprazine [From Vraylar] Adverse Reaction (Verified 05/31/23 01:20) Other codeine Adverse Reaction (Verified 05/31/23 01:20) Vomiting hydromorphone [From Dilaudid] Adverse Reaction (Verified 05/31/23 01:20) Nausea/Vom/Diarrhea oxycodone HCl [From Percocet] Adverse Reaction (Verified 05/31/23 01:20) Vomiting quetiapine [From Seroquel] Adverse Reaction (Verified 05/31/23 01:20) Other Procedures: 2-D Echocardiogram Type of Care/Length of Stay Estimated LOS: Convalescent Care Less Than 30 days Type of Care Needed: Skilled Rehab Potential: Fair Prognosis: Fair Additional Orders/Day of Discharge Day of Discharge: 06/05/23 Dietary and Speech Recommendations Dietitian Recommendations/Changes: Continue 1800 CCD diet and will add Cardiac restriction to manage medical conditions. Discharge Plan Admission Admit Date/Time: 05/31/23 02:31 Primary Reason for Your Visit: COVID pneumonitis. Attending Provider: Gen Palomares Primary Care Provider: Jericho Nieves Consulting Providers: Coby Gray; Johny Parada; Bello Hillman; Dionte Dias; Ramon Goodman; Delilah Nava; Tripp Howard; Katelin Sanchez; Haydee Couch; Lb Sky; Tristen Ashton; Edmond Levine; Moises Wang; Devin Galvez Discharge Orders/Prescriptions Prescriptions: New acetaminophen 325 mg Tablet 1,000 mg PO Q8H PRN PRN (Reason: Fever, pain 1-02/12) Qty: 0 0RF prednisone 10 mg tablet 10 mg PO DAILY Qty: 30 0RF Rx Instructions: 4 tabs daily for 3 days, then 3 tabs daily for 3 days, then 2 tabs daily for 3 days, then 1 tab daily for 3 days insulin lispro [Humalog KwikPen Insulin] 100 unit/mL Insulin Pen See Protocol subcut ACHS Qty: 0 0RF Protocol: 3. Sliding Scale Insulin Med Dosing Condition: 150-189 mg/dl = 1 unit Condition: 190-229 mg/dl = 2 units Condition: 230-269 mg/dl = 3 units Condition: 270-309 mg/dl = 4 units Condition: 310-349 mg/dl = 5 units Condition: 350-399 mg/dl = 6 units Condition: 400-449 mg/dl = 7 units Condition: Greater than 449 call physician Protocol Text: - Use for Total Daily Dose of Insulin 37-55 units - Obsese, infected, or steroid patients MEDIUM DOSING ALGORITHIM Continued escitalopram oxalate 20 mg tablet 30 mg PO DAILY pregabalin 75 mg capsule 75 mg PO BID methotrexate sodium 2.5 mg tablet 15 mg PO QWEEK Patient Comments: PT STATES SHE DOESNT TAKE ON A CERTAIN DAY OF THE WEEK atorvastatin 40 mg tablet 40 mg PO QHS Qty: 90 3RF carvedilol 6.25 mg tablet 6.25 mg PO BID Qty: 180 3RF aspirin 81 mg tablet,delayed release (DR/EC) 81 mg PO DAILY@0800 Qty: 90 3RF zolpidem [Ambien] 10 mg tablet 10 mg PO QHS PRN (Reason: SLEEP ) nitroglycerin 0.4 mg Tablet, Sublingual 0.4 mg sublingual Q5M PRN (Reason: CHEST PAIN ) Qty: 30 0RF albuterol sulfate 90 mcg/actuation HFA aerosol inhaler 2 puff INHALATION Q4H PRN (Reason: SHORTNESS OF BREATH/WHEEZING ) Ingrezza 80 mg capsule 80 mg PO DAILY Patient Comments: PT STATES SHE TAKES 40MG EVERY SATURDAY lidocaine 5 % ointment 1 applic topical 4X/DAY PRN (Reason: PAIN ) Rx Instructions: APPLY TO AFFECTED AREAS TOPICAL ONE TO FOUR TIMES A DAY NEEDED lansoprazole 30 mg capsule,delayed release(DR/EC) 30 mg PO DAILY fluticasone furoate-vilanterol [Breo Ellipta] 200-25 mcg/dose blister with device 1 inh INHALATION DAILY clopidogrel 75 mg tablet 75 mg PO DAILY losartan 50 mg tablet 50 mg PO DAILY Patient Comments: TAKE 1 TABLET BY MOUTH DAILY amitriptyline 75 mg tablet 75 mg PO QHS Patient Comments: Take 1 tablet by mouth daily at bedtime. lamotrigine 200 mg tablet See Rx Instructions PO .COMPLEX Patient Comments: Take 1/2 tablets by mouth every morning AND 1 tablet every evening. Rx Instructions: orally Take 1/2 tablets by mouth every morning AND 1 tablet every evening.; Take 1/2 tablets by mouth every morning AND 1 tablet every evening.; alprazolam 0.5 mg tablet 0.5 mg PO BID PRN (Reason: ANXIETY ) 3 Days Qty: 6 0RF buprenorphine 20 mcg/hour patch weekly 1 patch transdermal TH 7 Days Qty: 1 0RF Discontinued diclofenac sodium 1 % gel 2 g TOPICAL 4X/DAY PRN (Reason: PAIN ) Patient Comments: PT STATES SHE USES TWICE DAILY Rx Instructions: APPLY 2 GRAMS TO AFFECTED AREA(S) UP TO FOUR TIMES A DAY NEEDED dexamethasone 6 mg tablet 6 mg PO DAILY Qty: 7 0RF cefdinir 300 mg capsule 300 mg PO BID Qty: 14 0RF Referrals / Follow Up: Jericho Nieves MD [Primary Care Provider] - Within 2 Weeks Disposition Disposition (needs filled in before D/C Order can be placed): Detention Facility
[2023-06-05 17:15] LABS: Bedside Glucose 213 mg/dL (74-106)
[2023-06-05] MEDS: lamoTRIgine 100 MG Tablet 200 MG PO (20:44)
[2023-06-05] MEDS: Amitriptyline 25 MG Tablet 75 MG PO (20:44)
[2023-06-05] MEDS: Atorvastatin Calcium 40 MG Tablet PO (20:45)
[2023-06-05 21:08] LABS: Bedside Glucose 161 mg/dL (74-106)
[2023-06-06] VITALS (9 sets, daily range): BP systolic 114–123; BP diastolic 55–91; PULSE 60–70; RESP 16–20; TEMP 36.3–36.6; O2SAT 86–98; BMI 48.8
--- NOTE | 2023-06-06 00:41 | CPS ---
Pt wears CPAP 16 at home, CPAP 16 on at 28% as if pt had to bleed in O2 at home. Pt tolerating well.
[2023-06-06] MEDS: Insulin Lispro 100 UNIT/ML INSULN.PEN SC (06:23)
[2023-06-06] MEDS: Piperacil/Tazobactam 3.375 GM in 0.9% Normal Saline (50mL MB+) 50 ML IV (06:24)
[2023-06-06] MEDS: Ipratropium/Albuterol Sulfate 3 ML AMPUL.NEB INHALATION ×3 (06:54→15:03)
[2023-06-06 07:22] LABS: Bedside Glucose 171 mg/dL (74-106)
--- NOTE | 2023-06-06 07:37 | CASEMGMT ---
Addendum entered by Virgie Tamayo 06/06/23 11:27: SW notified patient that insurance has denied the request for SNF. Patient said she is fine going home at discharge. Patient is agreeable to home health. SW notified KWADWO BARROSO. Virgie IGLESIAS Addendum entered by Virgie Tamayo 06/06/23 09:21: Physician is in agreement with patient going home. A peer to peer will not be done. Virgie IGLESIAS Original Note: SHAI received a voice mail that insurance is requesting a peer to peer by noon 06-06-23. The phone number is [phone] option 5. SHAI will talk with physician to see if he would like to do a peer to peer. Virgie IGLESIAS
[2023-06-06 08:10] LABS: Anion Gap 4 (5-15); BUN 27 mg/dL (7-18); BUN/Creat Ratio 19.1 RATIO (10-20); Calcium,Total 8.5 mg/dL (8.5-10.1); Chloride 97 mmol/L (98-107); Creatinine, Serum 1.41 mg/dL (0.55-1.02); EST Glomerular Filtration Rate 41 mL/min (>60); Est Glom Filt Rate - Afr Amer 49 mL/min (>60); Estimated Creatinine Clearance 52.54 ml/min; Glucose 149 mg/dL (74-106); Magnesium 2.4 mg/dL (1.6-2.6); Phosphorus 3.5 mg/dL (2.5-4.9); Potassium 3.9 mmol/L (3.5-5.1); Sodium Level 134 mmol/L (136-145)
[2023-06-06] MEDS: Escitalopram Oxalate 20 MG Tablet 30 MG PO (08:11)
[2023-06-06] MEDS: Pantoprazole Sodium 40 MG Tablet PO (08:11)
[2023-06-06] MEDS: Clopidogrel Bisulfate 75 MG Tablet PO (08:11)
[2023-06-06] MEDS: Menthol/Lanolin/Calamine/Znox 113 GM Tube 1 APPLIC TOPICAL (08:12)
[2023-06-06] MEDS: lamoTRIgine 100 MG Tablet PO (08:12)
[2023-06-06] MEDS: Carvedilol 6.25 MG Tablet PO (08:12)
[2023-06-06] MEDS: Aspirin E.C. 81 MG Tablet PO (08:12)
[2023-06-06] MEDS: Losartan Potassium 50 MG Tablet PO (08:12)
[2023-06-06] MEDS: Pregabalin 75 MG Capsule PO (08:12)
--- NOTE | 2023-06-06 08:33 | PN.HOSP_ITS ---
Subjective Subjective Breathing well. Objective Data Objective Data Vital Signs: Vital Signs Temp Pulse Resp BP Pulse Ox O2 Del Method O2 Flow Rate 36.3 C L 60 18 114/91 H 95 Nasal Cannula 2 06/06/23 08:08 06/06/23 08:08 06/06/23 08:08 06/06/23 08:08 06/06/23 08:08 06/06/23 08:08 06/06/23 08:08 FiO2 28 06/06/23 01:49 Oxygen Flow Rate (L/min) [ 7 AMBULATING with Oxygen #3] Oxygen Flow Rate (L/min) [ 5 AMBULATING with Oxygen #2] Oxygen Flow Rate (L/min) [ 2 AMBULATING with Oxygen #1] Oxygen Flow Rate (L/min) [At 2 REST with Oxygen] Oxygen Flow Rate (L/min) [At 2 REST on Room Air] Oxygen Flow Rate (L/min) 2 Oxygen Delivery Method Nasal Cannula Weight: 117.3 kg Body Mass Index (BMI) 48.8 Intake & Output: Intake and Output for Last 24 Hours 06/04/23 06/05/23 06/06/23 23:59 23:59 23:59 Intake Total 2130 / 2130 1600 / 1720 170 / 170 Output Total 1500 / 1500 500 / 500 Balance 630 / 630 1100 / 1220 170 / 170 Medical Nutrition Assessment Dietitian: Malnutrition Criteria Met Start: 05/31/23 10:14 Freq: Status: Active Protocol: Document 05/31/23 10:14 AG (Rec: 05/31/23 10:15 AG Desktop) Nutrition Malnutrition Evidence of Malnutrition Exists Yes Malnutrition (severe): Acute Illness/Injury Evidenced By Suboptimal Energy Intake ( Severe),Weight Loss (Severe) Clinical Problem Acute Disease or Injury Related Malnutrition Etiology severe, acute malnutrition related to inadequate energy intake d/t resp. failure Signs/Symptoms as evidenced by estimated PO intake meeting <50% of estimated energy needs > 5 days; unintentional 4% wt loss x 9 days Status Active Problem Recommendation Dietitian Recommendations/Changes continue cardiac diet as tolerated; will monitor labs and add CHO controlled diet as indicated. Pt refusing ONS at this time Lab / Micro Data 06/05/23 07:06 06/06/23 07:05 Labs: Laboratory Results - last 24 hr 06/05/23 07:06: Absolute Neuts (auto) 10.2 H, Absolute Lymphs (auto) 1.50, Total Counted 100, Neutrophils % (Manual) 80 H, Band Neutrophils % 1, Lymphocytes % (Manual) 12 L, Monocytes % (Manual) 4, Eosinophils % (Manual) 1, Basophils % (Manual) 1, Myelocytes % 1 H, Diff Path Review May foll, Hypersegmented Neuts 1+ H, Anisocytosis 1+, Sodium 136, Potassium 4.2, Chloride 101, Carbon Dioxide 32.0, Anion Gap 3 L, BUN 23 H, Creatinine 1.37 H, Estim Creat Clear Calc 55.64, Est GFR (MDRD) Af Amer 51 L, Est GFR (MDRD) Non-Af 42 L, BUN/Creatinine Ratio 16.8, Glucose 179 H, Calcium 8.3 L 06/05/23 11:03: POC Glucose 174 H 06/05/23 16:54: POC Glucose 213 H 06/05/23 20:40: POC Glucose 161 H 06/06/23 06:21: POC Glucose 171 H 06/06/23 07:05: Sodium 134 L, Potassium 3.9, Chloride 97 L, Carbon Dioxide 33.0 H, Anion Gap 4 L, BUN 27 H, Creatinine 1.41 H, Estim Creat Clear Calc 52.54, Est GFR (MDRD) Af Amer 49 L, Est GFR (MDRD) Non-Af 41 L, BUN/Creatinine Ratio 19.1, Glucose 149 H, Calcium 8.5, Phosphorus 3.5, Magnesium 2.4 Micro: Microbiology 06/01/23 21:30 Nasal Secretion MRSA (PCR) - Final 06/01/23 10:05 Nasal Secretion MRSA (PCR) - Final 05/31/23 21:20 Urine, Clean Catch Legionella Antigen - Final 05/31/23 21:20 Urine, Clean Catch Streptococcus pneumoniae Antigen (M - Final 05/31/23 09:30 Mucosa - Nasopharyngeal Respiratory Panel (PCR) - Final Rhythm Strip Rhythm Strip: Sinus Rhythm Rate: 63 Ectopy: None Physical Exam Const alert and no apparent distress Resp normal respiratory effort and no retractions Resp Narrative: wheezes. Cardio regular rate, regular rhythm, S1 normal heart sound and S2 normal heart sound GI normal to inspection, nondistended, normoactive bowel sounds, soft to palpation, non-tender and non-distended Assessment & Plan Assessment/Plan (1) Acute hypoxemic respiratory failure: PLAN: Plan Acute hypoxic respiratory failure * Secondary to combination of COVID-19 pneumonitis and COPD Exacerbation. Managed on noninvasive ventilation with consultation placed to pulmonary medicine. * Leg and strep antigens negative. MRSA negative. * Unclear if patient does actually have a bacterial pneumonia as CAT scan appea rs to be unchanged. I suspect the patient had severe COVID pneumonitis and would anticipate slow recovery. Talked with the patient she states that she has never had COVID nor had the vaccine. Stating that she is not vaccine person . So I would anticipate a slow recovery over weeks to months. Told the patient that unclear if she would ever be able to come off of oxygen but that will depend on time. * Discharge home with home oxygen of 2 L/min. Patient is ambulatory in home and in the community and requires home oxygen with portability. * Advised patient to be vaccine in the future for COVID-19. Told her to be cautious if people come to visit her if they are sick that they should either avoid seeing her or wear a mask as she would likely be more affected by RSV or influenza infection given her current respiratory status. Patient need to have a follow-up chest x-ray in about 6 to 8 weeks. Recent COVID-19 infection * onset may have been about a month ago Suspected gram negative pneumonia * CAT scan obtained demonstrated diffuse bilateral airspace opacification. Patient managed with broad-spectrum antibiotic therapy with vancomycin as well as Zosyn Acute COPD/asthma exacerbation * Managed with bronchodilator * Methylpred Acute kidney injury * reolved * Creatinine on discharge was 1.1, creatinine on admission was 1.51 started on IV hydration with monitoring of electrolyte Chronic conditions: * Coronary artery disease? With PCI to proximal LAD and distal RCA on 05/17/2022 did continue guideline directed medical therapy * Hypertension- Blood pressure controlled, home medications continued with dose adjustment as needed * Dyslipidemia-Patient is on statin therapy, continued at home dose * Class III obesity with BMI of 50? Complicating care weight loss advised * Diabetes mellitus type II-patient's oral hypoglycemics held. Placed on long acting insulin, Accu-Cheks a.c. and at bedtime and covered with sliding scale insulin * anemia- Secondary to chronic disorder monitoring H&H and transfuse if patient becomes symptomatic or hemoglobin falls below * Rheumatoid arthritis. Patient is on methotrexate at home which is currently being held * obstructive sleep apnea? Patient is on nocturnal CPAP at home * Chronic pain syndrome? Patient is on bupropion as well as Lyrica * GERD? Patient is on PPI * Bipolar disorder? Did continue patient psychotropic medications * Depression with anxiety? Continue home meds Disposition: Plan for the transitional care unit pending insurance autho rization.
--- NOTE | 2023-06-06 09:08 | PN.CC_ITS ---
Assessment & Plan Assessment/Plan (1) Acute hypoxemic respiratory failure: PLAN: Plan RECOMMENDATIONS: 1. Continue PAP therapy with naps and nightly, per home regimen. 2. Supplemental oxygen for saturations greater than 90%. 3. Continue scheduled bronchodilators. Transition to p.o. steroids 4. Complete antibiotic course as written 5. Encourage incentive spirometer and out of bed as tolerated 6. Transition to p.o. diuretics 7. Continue appropriate DVT prophylaxis. 8. Okay to discharge from a pulmonary perspective IMPRESSIONS: 1. Acute hypoxemic respiratory failure The patient was just discharged from the hospital 2 days ago after having been admitted with a respiratory failure, which was felt to be secondary to an asthma exacerbation precipitated by COVID-19 pneumonia. There was also concern for a secondary bacterial pneumonia. Therefore, the patient was treated with antibiotics and Decadron during that hospitalization. Patient does appear to be responding to diuresis. Will transition patient to p.o. diuretics as she appears to be developing a contraction alkalosis. No PE was noted on CTA of the chest. Patient would benefit from pulmonary recruitment with incentive spirometer. Echocardiogram was not suggestive of CHF or pulmonary hypertension. Antibiotic course has been written. Patient is currently on diuretics and appears to be responding well. Will need to watch renal function closely. 2. History of obstructive sleep apnea Continue nocturnal PAP therapy per home regimen. Stressed to the patient that this should be used with all sleep 3. Morbid obesity/tobacco dependency/rheumatoid arthritis/chronic pain syndrome/coronary artery disease/hypertension Complicates care, management, recovery and prognosis. Continue supportive care as noted above. This note was generated with [employer] dictation software. It may contain incorrect words, spelling, and punctuation that were not noted in checking the note before signing. Subjective Subjective Patient did well overnight. Patient subjectively feels improved compared to previous. Patient is requesting to go home if possible. Patient believes that she is moving around better compared to previous. No significant cough has been reported. Objective Data Objective Data Vital Signs: Vital Signs Temp Pulse Resp BP Pulse Ox O2 Del Method O2 Flow Rate 36.3 C L 60 18 114/91 H 95 Nasal Cannula 2 06/06/23 08:08 06/06/23 08:08 06/06/23 08:08 06/06/23 08:08 06/06/23 08:08 06/06/23 08:08 06/06/23 08:08 FiO2 28 06/06/23 01:49 Oxygen Flow Rate (L/min) [ 7 AMBULATING with Oxygen #3] Oxygen Flow Rate (L/min) [ 5 AMBULATING with Oxygen #2] Oxygen Flow Rate (L/min) [ 2 AMBULATING with Oxygen #1] Oxygen Flow Rate (L/min) [At 2 REST with Oxygen] Oxygen Flow Rate (L/min) [At 2 REST on Room Air] Oxygen Flow Rate (L/min) 2 Oxygen Delivery Method Nasal Cannula Weight: 117.3 kg Body Mass Index (BMI) 48.8 Intake & Output: Intake and Output for Last 24 Hours 06/04/23 06/05/23 06/06/23 23:59 23:59 23:59 Intake Total 2130 / 2130 1600 / 1720 170 / 170 Output Total 1500 / 1500 500 / 500 Balance 630 / 630 1100 / 1220 170 / 170 Medical Nutrition Assessment Dietitian: Malnutrition Criteria Met Start: 05/31/23 10:14 Freq: Status: Active Protocol: Document 05/31/23 10:14 AG (Rec: 05/31/23 10:15 AG Desktop) Nutrition Malnutrition Evidence of Malnutrition Exists Yes Malnutrition (severe): Acute Illness/Injury Evidenced By Suboptimal Energy Intake ( Severe),Weight Loss (Severe) Clinical Problem Acute Disease or Injury Related Malnutrition Etiology severe, acute malnutrition related to inadequate energy intake d/t resp. failure Signs/Symptoms as evidenced by estimated PO intake meeting <50% of estimated energy needs > 5 days; unintentional 4% wt loss x 9 days Status Active Problem Recommendation Dietitian Recommendations/Changes continue cardiac diet as tolerated; will monitor labs and add CHO controlled diet as indicated. Pt refusing ONS at this time Lab / Micro Data Attestation: I reviewed the patient's lab results. 06/05/23 07:06 06/06/23 07:05 Labs: Laboratory Results - last 24 hr 06/05/23 11:03: POC Glucose 174 H 06/05/23 16:54: POC Glucose 213 H 06/05/23 20:40: POC Glucose 161 H 06/06/23 06:21: POC Glucose 171 H 06/06/23 07:05: Sodium 134 L, Potassium 3.9, Chloride 97 L, Carbon Dioxide 33.0 H, Anion Gap 4 L, BUN 27 H, Creatinine 1.41 H, Estim Creat Clear Calc 52.54, Est GFR (MDRD) Af Amer 49 L, Est GFR (MDRD) Non-Af 41 L, BUN/Creatinine Ratio 19.1, Glucose 149 H, Calcium 8.5, Phosphorus 3.5, Magnesium 2.4 Micro: Microbiology 06/01/23 21:30 Nasal Secretion MRSA (PCR) - Final 06/01/23 10:05 Nasal Secretion MRSA (PCR) - Final 05/31/23 21:20 Urine, Clean Catch Legionella Antigen - Final 05/31/23 21:20 Urine, Clean Catch Streptococcus pneumoniae Antigen (M - Nkechi l 05/31/23 09:30 Mucosa - Nasopharyngeal Respiratory Panel (PCR) - Final Rhythm Strip Rhythm Strip: Sinus Rhythm Rate: 61 Ectopy: None Physical Exam Const alert and no apparent distress Constitutional Narrative: Morbidly obese on nasal cannula oxygen with no conversational dyspnea. Patient sitting in the chair during my evaluation General Appearance: cooperative HEENT normocephalic and head/scalp atraumatic HEENT Narrative: Glasses in place Eyes PERRL, EOMs intact bilaterally and conjunctivae normal Neck supple General: trachea midline Chest inspection of chest normal Resp normal respiratory effort Resp Narrative: Exam somewhat limited secondary to body habitus Auscultation: wheezes and diminished lung sounds; Negative for rales or rhonchi Cardio regular rate, regular rhythm, S1 normal heart sound, S2 normal heart sound, no murmurs, no rub and no gallops GI normal to inspection, nondistended, normoactive bowel sounds Extremity no clubbing, cyanosis or edema Skin no rashes or lesions noted Neuro CN's II-XII intact bilaterally, moves all extremities and no focal motor deficits Psych cooperative and affect normal Charges/Coding Visit Charges Inpatient E&M: 13656 Subs Hosp L2
--- NOTE | 2023-06-06 09:30 | CASEMGMT ---
KWADWO BARROSO updated that patient was denied TCU at discharge. KWADWO BARROSO in to discuss needs at discharge. Patient would like [facility] at discharge and declined list. KWADWO BARROSO updated patient to have family bring oxygen tank from home for discharge, patient voiced understanding. Patient denied further needs or help at discharge. KWADWO BARROSO called and made referral to [facility], awaiting acceptance.
[2023-06-06 10:41] LABS: Pathologist Review Reviewed
[2023-06-06] MEDS: Furosemide 40 MG Tablet PO (10:41)
[2023-06-06 10:54] LABS: Pathologist Review Reviewed
[2023-06-06 11:26] LABS: Bedside Glucose 129 mg/dL (74-106)
--- NOTE | 2023-06-06 11:30 | CASEMGMT ---
KWADWO BARROSO received called back from [facility] and they are able to accept patient with planned start of care for tomorrow. KWADWO BARROSO in and updated patient. Patient had no further questions or concenrs. KWADWO BARROSO updated discharge plan.
--- NOTE | 2023-06-06 12:01 | DS.PCM_ITS ---
Providers Date of Admission: 05/31/23 Primary Care Physician: Dr. 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 Dias of consultation in AM. Reason For Visit: RESP FAILURE,COVID PNA/?SUPERIMPOSED BACTERIAL PNA Diagnosis Discharge Diagnosis (1) Acute hypoxemic respiratory failure: Status: Resolved Code(s): J96.01 - Acute respiratory failure with hypoxia Plan Acute hypoxic respiratory failure * Secondary to combination of COVID-19 pneumonitis and COPD Exacerbation. Managed on noninvasive ventilation with consultation placed to pulmonary medicine. * Leg and strep antigens negative. MRSA negative. * Unclear if patient does actually have a bacterial pneumonia as CAT scan appears to be unchanged. I suspect the patient had severe COVID pneumonitis and would anticipate slow recovery. Talked with the patient she states that she has never had COVID nor had the vaccine. Stating that she is not vaccine person . So I would anticipate a slow recovery over weeks to months. Told the patient that unclear if she would ever be able to come off of oxygen but that will depend on time. * Discharge home with home oxygen of 2 L/min. Patient is ambulatory in home and in the community and requires home oxygen with portability. * Advised patient to be vaccine in the future for COVID-19. Told her to be cautious if people come to visit her if they are sick that they should either avoid seeing her or wear a mask as she would likely be more affected by RSV or influenza infection given her current respiratory status. Patient need to have a follow-up chest x-ray in about 6 to 8 weeks. Recent COVID-19 infection * onset may have been about a month ago Suspected gram negative pneumonia * CAT scan obtained demonstrated diffuse bilateral airspace opacification. Patient managed with broad-spectrum antibiotic therapy with vancomycin as well as Zosyn Acute COPD/asthma exacerbation * Managed with bronchodilator * Methylpred Acute kidney injury * reolved * Creatinine on discharge was 1.1, creatinine on admission was 1.51 started on IV hydration with monitoring of electrolyte Chronic conditions: * Coronary artery disease? With PCI to proximal LAD and distal RCA on 05/17/2022 did continue guideline directed medical therapy * Hypertension- Blood pressure controlled, home medications continued with dose adjustment as needed * Dyslipidemia-Patient is on statin therapy, continued at home dose * Class III obesity with BMI of 50? Complicating care weight loss advised * Diabetes mellitus type II-patient's oral hypoglycemics held. Placed on long acting insulin, Accu-Cheks a.c. and at bedtime and covered with sliding scale insulin * anemia- Secondary to chronic disorder monitoring H&H and transfuse if patient becomes symptomatic or hemoglobin falls below * Rheumatoid arthritis. Patient is on methotrexate at home which is currently being held * obstructive sleep apnea? Patient is on nocturnal CPAP at home * Chronic pain syndrome? Patient is on bupropion as well as Lyrica * GERD? Patient is on PPI * Bipolar disorder? Did continue patient psychotropic medications * Depression with anxiety? Continue home meds Disposition: Plan for the transitional care unit pending insurance authorization. Medications at Discharge Home Medications nitroglycerin 0.4 mg sublingual tablet 0.4 mg sublingual Q5M PRN CHEST PAIN #30 tabs 04/06/22 escitalopram oxalate 20 mg tablet 30 mg PO DAILY DEPRESSION 05/08/22 pregabalin 75 mg capsule 75 mg PO BID PAIN 05/08/22 aspirin 81 mg tablet,delayed release 81 mg PO DAILY@0800 HEART HEALTH #90 tabs 06/05/22 atorvastatin 40 mg tablet 40 mg PO QHS CHOLESTEROL #90 tabs 06/05/22 carvedilol 6.25 mg tablet 6.25 mg PO BID HEART #180 tabs 06/05/22 methotrexate sodium 2.5 mg tablet 15 mg PO QWEEK RHEUMATOID ARTHRITIS 06/05/22 zolpidem 10 mg tablet (Ambien) 10 mg PO QHS PRN SLEEP 08/29/22 albuterol sulfate 90 mcg/actuation aerosol inhaler 2 puff inhalation Q4H PRN SHORTNESS OF BREATH/WHEEZING 05/21/23 clopidogrel 75 mg tablet 75 mg PO DAILY BLOOD THINNER 05/21/23 fluticasone furoate 200 mcg-vilanterol 25 mcg/dose inhalation powder (Breo Ellipta) 1 inh inhalation DAILY ASTHMA 05/21/23 lansoprazole 30 mg capsule,delayed release 30 mg PO DAILY ACID REFLUX 05/21/23 lidocaine 5 % topical ointment 1 applic topical 4X/DAY PRN PAIN 05/21/23 valbenazine 80 mg capsule (Ingrezza) 80 mg PO DAILY tardive dyskinesia 05/21/23 losartan 50 mg tablet 50 mg PO DAILY blood pressure 05/26/23 amitriptyline 75 mg tablet 75 mg PO QHS 05/31/23 lamotrigine 200 mg tablet See Rx Instructions PO .COMPLEX 05/31/23 acetaminophen 325 mg tablet 1,000 mg (3.0769 x 325 mg) PO Q8H PRN PRN Fever, pain 1-02/12 #0 tabs 06/05/23 alprazolam 0.5 mg tablet 0.5 mg PO BID PRN ANXIETY 3 days #6 tabs 06/05/23 buprenorphine 20 mcg/hour weekly transdermal patch 1 patch transdermal TH SEVERE PAIN 1 week #1 ea 06/05/23 insulin lispro 100 unit/mL subcutaneous pen (Humalog KwikPen (U-100) Insulin) See Protocol subcut ACHS #0 mL 06/05/23 furosemide 20 mg tablet 20 mg PO DAILY #30 tabs 06/06/23 prednisone 10 mg tablet 10 mg PO DAILY #30 tabs 06/06/23 Hospital Course Operations None Procedures None Summary of Care Provided Minutes Spent on Discharge: 32 Medical Records Data Medical Nutrition Assessment Dietitian: Malnutrition Criteria Met Start: 05/31/23 10: 14 Freq: Status: Active Protocol: Document 05/31/23 10:14 AG (Rec: 05/31/23 10:15 AG Desktop) Nutrition Malnutrition Evidence of Malnutrition Exists Yes Malnutrition (severe): Acute Illness/Injury Evidenced By Suboptimal Energy Intake ( Severe),Weight Loss (Severe) Clinical Problem Acute Disease or Injury Related Malnutrition Etiology severe, acute malnutrition related to inadequate energy intake d/t resp. failure Signs/Symptoms as evidenced by estimated PO intake meeting <50% of estimated energy needs > 5 days; unintentional 4% wt loss x 9 days Status Active Problem Recommendation Dietitian Recommendations/Changes continue cardiac diet as tolerated; will monitor labs and add CHO controlled diet as indicated. Pt refusing ONS at this time Weight / BMI Weight Weight: 117.3 kg Body Mass Index (BMI) 48.8 ABG / Lab / Microbiology Data 06/05/23 07:06 06/06/23 07:05 Laboratory: Laboratory Results - last 24 hr 06/04/23 07:19: Diff Path Review Reviewed 06/05/23 07:06: Diff Path Review Reviewed 06/05/23 16:54: POC Glucose 213 H 06/05/23 20:40: POC Glucose 161 H 06/06/23 06:21: POC Glucose 171 H 06/06/23 07:05: Sodium 134 L, Potassium 3.9, Chloride 97 L, Carbon Dioxide 33.0 H, Anion Gap 4 L, BUN 27 H, Creatinine 1.41 H, Estim Creat Clear Calc 52.54, Est GFR (MDRD) Af Amer 49 L, Est GFR (MDRD) Non-Af 41 L, BUN/Creatinine Ratio 19.1, Glucose 149 H, Calcium 8.5, Phosphorus 3.5, Magnesium 2.4 06/06/23 11:02: POC Glucose 129 H Microbiology: Microbiology 06/01/23 21:30 Nasal Secretion MRSA (PCR) - Final 06/01/23 10:05 Nasal Secretion MRSA (PCR) - Final 05/31/23 21:20 Urine, Clean Catch Legionella Antigen - Final 05/31/23 21:20 Urine, Clean Catch Streptococcus pneumoniae Antigen (M - Final 05/31/23 09:30 Mucosa - Nasopharyngeal Respiratory Panel (PCR) - Final D/C Instructions Discharge Diet: 2000 Calorie Control Diet and 8 Cup Fluid Restriction Meaningful Use Info Meaningful Use Diagnoses (Choose all that apply): None applicable Discharge Plan Admission Admit Date/Time: 05/31/23 02:31 Primary Reason for Your Visit: COVID pneumonitis. 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 You were treated for bacterial infection but there is no evidence that you did have a bacterial infection. Will treat you with furosemide to remove some fluid. You will continue with dose of furosemide going forward to help get rid of fluid from your lungs. He also be on a prednisone taper over the next 12 days. Please follow with your primary care doctor in the next coming weeks. In about 6 to 8 weeks, you should have a follow-up chest x-ray. It is strongly advised that you do become vaccinated for COVID-19, however you would not be able to do that for at least 3 months. Also caution around others particularly they are sick. If there are people that are sick you should either avoid them or they should wear a mask around you. Discharge Orders/Prescriptions Prescriptions: New acetaminophen 325 mg Tablet 1,000 mg PO Q8H PRN PRN (Reason: Fever, pain -02/12) Qty: 0 0RF insulin lispro [Humalog KwikPen Insulin] 100 unit/mL Insulin Pen See Protocol subcut ACHS Qty: 0 0RF Protocol: 3. Sliding Scale Insulin Med Dosing Condition: 150-189 mg/dl = 1 unit Condition: 190-229 mg/dl = 2 units Condition: 230-269 mg/dl = 3 units Condition: 270-309 mg/dl = 4 units Condition: 310-349 mg/dl = 5 units Condition: 350-399 mg/dl = 6 units Condition: 400-449 mg/dl = 7 units Condition: Greater than 449 call physician Protocol Text: - Use for Total Daily Dose of Insulin 37-55 units - Obsese, infected, or steroid patients MEDIUM DOSING ALGORITHIM prednisone 10 mg tablet 10 mg PO DAILY Qty: 30 0RF Rx Instructions: 4 tabs daily for 3 days, then 3 tabs daily for 3 days, then 2 tabs daily for 3 days, then 1 tab daily for 3 days furosemide 20 mg tablet 20 mg PO DAILY Qty: 30 0RF Continued escitalopram oxalate 20 mg tablet 30 mg PO DAILY pregabalin 75 mg capsule 75 mg PO BID methotrexate sodium 2.5 mg tablet 15 mg PO QWEEK Patient Comments: PT STATES SHE DOESNT TAKE ON A CERTAIN DAY OF THE WEEK atorvastatin 40 mg tablet 40 mg PO QHS Qty: 90 3RF carvedilol 6.25 mg tablet 6.25 mg PO BID Qty: 180 3RF aspirin 81 mg tablet,delayed release (DR/EC) 81 mg PO DAILY@0800 Qty: 90 3RF zolpidem [Ambien] 10 mg tablet 10 mg PO QHS PRN (Reason: SLEEP ) nitroglycerin 0.4 mg Tablet, Sublingual 0.4 mg sublingual Q5M PRN (Reason: CHEST PAIN ) Qty: 30 0RF albuterol sulfate 90 mcg/actuation HFA aerosol inhaler 2 puff INHALATION Q4H PRN (Reason: SHORTNESS OF BREATH/WHEEZING ) Ingrezza 80 mg capsule 80 mg PO DAILY Patient Comments: PT STATES SHE TAKES 40MG EVERY SATURDAY lidocaine 5 % ointment 1 applic topical 4X/DAY PRN (Reason: PAIN ) Rx Instructions: APPLY TO AFFECTED AREAS TOPICAL ONE TO FOUR TIMES A DAY NEEDED lansoprazole 30 mg capsule,delayed release(DR/EC) 30 mg PO DAILY fluticasone furoate-vilanterol [Breo Ellipta] 200-25 mcg/dose blister with device 1 inh INHALATION DAILY clopidogrel 75 mg tablet 75 mg PO DAILY losartan 50 mg tablet 50 mg PO DAILY Patient Comments: TAKE 1 TABLET BY MOUTH DAILY amitriptyline 75 mg tablet 75 mg PO QHS Patient Comments: Take 1 tablet by mouth daily at bedtime. lamotrigine 200 mg tablet See Rx Instructions PO .COMPLEX Patient Comments: Take 1/2 tablets by mouth every morning AND 1 tablet every evening. Rx Instructions: orally Take 1/2 tablets by mouth every morning AND 1 tablet every evening.; Take 1/2 tablets by mouth every morning AND 1 tablet every evening.; alprazolam 0.5 mg tablet 0.5 mg PO BID PRN (Reason: ANXIETY ) 3 Days Qty: 6 0RF buprenorphine 20 mcg/hour patch weekly 1 patch transdermal TH 7 Days Qty: 1 0RF Discontinued diclofenac sodium 1 % gel 2 g TOPICAL 4X/DAY PRN (Reason: PAIN ) Patient Comments: PT STATES SHE USES TWICE DAILY Rx Instructions: APPLY 2 GRAMS TO AFFECTED AREA(S) UP TO FOUR TIMES A DAY NEEDED dexamethasone 6 mg tablet 6 mg PO DAILY Qty: 7 0RF cefdinir 300 mg capsule 300 mg PO BID Qty: 14 0RF Referrals / Follow Up: Jericho Nieves MD [Primary Care Provider] - Within 2 Weeks Disposition Disposition (needs filled in before D/C Order can be placed): Home Health Service Charges/Coding Visit Charges Inpatient E&M: 59464 Disch Hosp >30min
== END 2023-06-06 16:36 | disposition home health service (06) | DRG 177 ==
LOC: ED 02:36 → ICU 03:05 → PCU 06-03 06:54
PROVIDERS: Internal Medicine; Internal Medicine Critical Care Medicine; Admitting Provider Family Medicine; Emergency Provider Emergency Medicine; PCP Internal Medicine
DX: J15.69 Pneumonia due to other Gram-negative bacteria (principal); J96.01 Acute respiratory failure with hypoxia; E43 Unspecified severe protein-calorie malnutrition; I42.9 Cardiomyopathy, unspecified; E87.1 Hypo-osmolality and hyponatremia; J44.0 Chronic obstructive pulmonary disease with (acute) lower respiratory infection; Z68.42 Body mass index [BMI] 45.0-49.9, adult; N17.9 Acute kidney failure, unspecified; J44.1 Chronic obstructive pulmonary disease with (acute) exacerbation; D63.1 Anemia in chronic kidney disease; E11.22 Type 2 diabetes mellitus with diabetic chronic kidney disease; N18.32 Chronic kidney disease, stage 3b; F31.9 Bipolar disorder, unspecified; E66.01 Morbid (severe) obesity due to excess calories; M06.9 Rheumatoid arthritis, unspecified; I12.9 Hypertensive chronic kidney disease with stage 1 through stage 4 chronic kidney disease, or unspecified chronic kidney disease; G24.01 Drug induced subacute dyskinesia; K21.9 Gastro-esophageal reflux disease without esophagitis; E78.5 Hyperlipidemia, unspecified; E87.6 Hypokalemia; G47.33 Obstructive sleep apnea (adult) (pediatric); F17.210 Nicotine dependence, cigarettes, uncomplicated; I25.10 Atherosclerotic heart disease of native coronary artery without angina pectoris; F41.8 Other specified anxiety disorders; Z82.3 Family history of stroke; Z79.02 Long term (current) use of antithrombotics/antiplatelets; Z79.82 Long term (current) use of aspirin; Z95.5 Presence of coronary angioplasty implant and graft; Z79.51 Long term (current) use of inhaled steroids; G89.4 Chronic pain syndrome; R59.0 Localized enlarged lymph nodes; Z86.16 Personal history of COVID-19
CPT/HCPCS: 36415; 36600; 71045; 71275; 80048; 80053; 82803; 82962; 83036; 83735; 83880; 84100; 84145; 84484; 85025; 87449; 87633; 87641; 93005; 93306; 94002; 94003; 94640; 94660; 94762; 97110; 97116; 97162; 97166; 97530; 97535; 97802; 99285; 99406; J7040; Q9957; Q9967; A4216; C8929; J1940

== ENCOUNTER 2023-06-17 02:47 | Inpatient (IN) | payer MEDICARE, MEDICAID, SELFPAY ==
[2022-06-08 13:59] VITALS: BMI 47.9
[2023-06-17] VITALS (23 sets, daily range): BP systolic 87–114; BP diastolic 37–66; PULSE 64–94; RESP 18–36; TEMP 35.9–37.1; O2SAT 90–100; BMI 50.4; BMI 47.9
--- NOTE | 2023-06-17 04:02 | EKG12_ITS ---
Test Reason : SOB Blood Pressure : / mmHG Vent. Rate : 077 BPM Atrial Rate : 077 BPM P-R Int : 172 ms QRS Dur : 090 ms QT Int : 374 ms P-R-T Axes : 047 038 049 degrees QTc Int : 423 ms Normal sinus rhythm Normal ECG Confirmed by Pedro Hernández ([id number]), associate entertainment editor CORDELIA SOCTT ([id number]) on 06/18/2023 9:15:29 AM Referred By: Confirmed By:Pedro Hernández
[2023-06-17] MEDS: Ipratropium/Albuterol Sulfate 3 ML AMPUL.NEB INHALATION ×4 (04:24→19:16)
[2023-06-17] MEDS: Benzonatate 100 MG Capsule 200 MG PO (04:34)
--- NOTE | 2023-06-17 04:40 | RAD_ITS ---
INDICATION: cough COMPARISON: 05/11/2023 chest radiograph. Findings: Single frontal view of the chest. Low lung volumes. LUNG PARENCHYMA: Diffuse bilateral interstitial thickening, confluent at the bases. PLEURA: No pleural effusion. No pneumothorax. HEART/GREAT VESSELS: Cardiomegaly. Prominence of the central vasculature suggesting venous congestion. BONES: Lower cervical spine fusion hardware without obvious hardware complication. RAD/Chest 1 View (Portable) IMPRESSION: Again noted diffuse interstitial process, confluent at the bases, suggesting pulmonary edema given venous congestion and cardiomegaly. Infectious etiology is not excluded. Recommend follow-up to resolution. Electronically Signed: Sabas Gilbert MD at 5:54 EST ,
[2023-06-17 04:48] LABS: Absolute Lymphocyte Count 0.64 X10^3/uL (0.83-4.51); Absolute Neutrophil Count 4.2 X10^3/uL (2.0-7.7); Basophil# 0.02 X10^3/uL; Basophil% 0.4 % (0-1); Eosinophil# 0.19 X10^3/uL; Eosinophils% 3.7 % (0-5); Hematocrit 23.2 % (37-47); Hemoglobin 8.2 g/dL (12.0-15.0); Lymphocyte # 0.64 X10^3/ul (0.83-4.51); Lymphocyte % 12.5 % (19-41); Mean Corp Hgb Conc 35.3 g/dL (32-36); Mean Corpuscular Hgb 34.6 pg (27.0-32.0); Mean Corpuscular Volume 97.9 fL (81-99); Mean Platelet Vol. 10.6 fl (6.2-12.0); Monocyte# 0.06 X10^3/uL; Monocyte% 1.2 % (0-10); NRBC Flagged by Analyzer 0 % (0-5); Neutrophil # 4.17 X10^3/uL (2.7-7.7); Platelet Count 199 K/mm3 (150-450); RBC Distribution Width CV 15.3 % (11.6-14.6); RBC Distribution Width SD 53.1 fl (35.1-43.9); Red Blood Count 2.37 M/mm3 (4.2-5.4); White Blood Count 5.1 K/mm3 (4.4-11.0)
[2023-06-17 04:53] LABS: Anion Gap 9 (5-15); BUN 18 mg/dL (7-18); BUN/Creat Ratio 10.7 RATIO (10-20); Calcium,Total 7.4 mg/dL (8.5-10.1); Chloride 98 mmol/L (98-107); Creatinine, Serum 1.68 mg/dL (0.55-1.02); EST Glomerular Filtration Rate 33 mL/min (>60); Est Glom Filt Rate - Afr Amer 40 mL/min (>60); Estimated Creatinine Clearance 44.98 ml/min; Glucose 156 mg/dL (74-106); Magnesium 1.7 mg/dL (1.6-2.6); Potassium 2.7 mmol/L (3.5-5.1); Sodium Level 135 mmol/L (136-145)
--- OUTSIDE RECORDS SUMMARY | 2023-06-17 05:07 | XMS RPT_ITS | CCD ---
Author Name Unknown Address [address] [place] [address] Organization [facility] Care Team Providers Care Video Editor Name Role Phone Ezequiel CARRANZA, Jericho Prado Primary Care Provider [phone] EZEQUIEL CARRANZA, DR HELM Primary Care Physician Ezequiel CARRANZA, Jericho Prado Primary Care Provider [phone] KARISHMA CARRANZA, ELIECER V Attending Unavailab christiano NIEVES MD., DR. HLEM Primary Care Leonardo NIEVES MD., DR. HELM Primary Care Leonardo RIGGS MD, ROBIN Womack Attending Unavailable JERICHO NIEVES Primary Care Unavailable SEDA QUIROZ Attending Unavailable SEDA QUIROZ Attending Unavailable JOANNA SALINAS Referring Unavailable JERICHO NIEVES Primary Care Unavailable JERICHO NIEVES Referring Unavailable JERICHO NIEVES Primary Care Unavailable JERICHO NIEVES Attending Unavailable JERICHO NIEVES Primary Care Unavailable JERICHO NIEVES Referring Unavailable SEDA QUIROZ Attending Unavailable JERICHO NIEVES Primary Care Unavailable JOANNA SALINAS Referring Unavailable JERICHO NIEVES Primary Care Unavailable JOANNA SALINAS Attending Unavailable JERICHO NIEVES Primary Care Unavailable JERICHO NIEVES Attending Unavailable JERICHO NIEVES Primary Care Unavailable SELF Referring Unavailable SEDA QUIROZ Attending Unavailable JOANNA SALINAS Referring Unavailable JERICHO NIEVES Primary Care Unavailable JERICHO NIEVES Primary Care Unavailable TALIA TINEO Referring Unavailable EZEQUIEL, JERICHO Prado Primary Care Unavailable TALIA TINEO Attending Unavailable JERICHO NIEVES Referring Unavailable RAJGURU, SEDA J Attending Unavailable JERICHO NIEVES H Primary Care Unavailable NIEVESJERICHO LORENZANA H Referring Unavailable EZEQUIEL, JERICHO Prado Primary Care Unavailable ARON BROTHERS Attending Unavailable NIEVES, JOHANNA Primary Care Unavailable NIEVES, JERICHO Prado Primary Care Unavailable ARON BROTHERS Referring Unavailable MANDY JAMILAH Fantasma Attending Unavailable NIEVES, JERICHO Prado Primary Care Unavailable NIEVES, JERICHO Prado Primary Care Unavailable FIDEL BAZAN Referring Unavailable NIEVES, JERICHO Prado Primary Care Unavailable NIEVES, JERICHO Prado Primary Care Unavailable SEDA QUIROZ Attending Unavailable EZEQUIEL, JERICHO Prado Primary Care Unavailable ARON BROTHERS Attending Unavailable Allergies Allergy Classification Reported Allergen(s) Allergy Type Date of Onset Reaction(s) Facility (20 sources) Acetaminophen / oxyCODONE; Translations: [acetaminophen-oxy codone] Drug Allergy [address] [facility] (20 sources) cariprazine; Translations: [CARIPRAZINE] Drug Allergy 9 Other: See Comments [facility] (20 sources) Codeine; Translations: [codeine] Drug Allergy 5 Other: See Comments [facility] (20 sources) HYDROmorphone; Translations: [HYDROMORPHONE (BULK)] Drug Allergy [address] [facility] (20 sources) QUEtiapine; Translations: [quetiapine] Drug Allergy 9 Other: See Comments [facility] (20 sources) traMADol; Translations: [TRAMADOL HCL] Drug Allergy [address] [facility] (2 sources) HYDROmorphone; Translations: [hydromorphone] Drug Allergy [facility] (2 sources) traMADol; Translations: [tramadol] Drug Allergy [facility] Medications Current Medications Medication Drug Class(es) Dates Sig (Normalized) Sig (Original) escitalopram 20 mg oral tablet (20 sources) Serotonin Reuptake Inhibitor Start: 04-02-2023 End: 07-13-2023 take 1.5 tablets by mouth once daily escitalopram oxalate (LEXAPRO) 20 mg tablet Take 1.5 tablets by mouth once daily. 45 tablet 1 05/14/2023 07/13/2023 Active Completed/Discontinued Medications Medication Drug Class(es) Dates Sig (Normalized) Sig (Original) acetaminophen 325 mg / HYDROcodone bitartrate 5 mg oral tablet (4 sources) Opioid Agonist Start: 03-08-2022 End: 03-13-2022 take 1 tablet by mouth every six hours as needed for pain [place] 325- 5 mg oral tablet Dose = 1 tab(s), Oral, q6h, PRN as needed for pain, # 20 tab(s), 0 Refill(s), Shingles, 122 Start Date: 03/08/22 Stop Date: 03/13/22 Status: Ordered Problems Active Problems Problem Classification Problem Date Documented Da te Episodic/Chronic Abdominal pain (2 sources) Abdominal pain 09-02-2017 Episodic Acute and unspecified renal failure (1 source) Acute renal failure syndrome; Translations: [Acute kidney failure, unspecified] 06-13-2023 Episodic Acute myocardial infarction (20 sources) Myocardial [...] Coronary atherosclerosis; Translations: [Atherosclerotic heart disease of [place] coronary artery without angina pectoris] Onset: 2 04-11-2022 Chronic Deficiency and other anemia (1 source) Anemia; Translations: [Anemia, unspecified] 06-13-2023 Episodic Diabetes mellitus with complications (20 sources) Type [...] with diarrhea] Onset: 2 12-02-2021 Chronic Other inflammatory condition of skin (20 sources) [...] obesity due to excess calories] Chronic Other skin disorders (1 source) Foot callus; Translations: [Corns and callosities] 12-04-2022 Episodic Other skin disorders (1 source) Ingrowing toenail; Translations: [Ingrowing nail] 12-04-2022 Episodic Residual codes; unclassified (20 sources) Obstructive sleep apnea syndrome; Translations: [Obstructive sleep apnea (adult) (pediatric)] Onset: 6 05-26-2015 Chronic Residual codes; unclassified (1 source) Insomnia; Translations: [Insomnia, unspecified] Episodic Respiratory failure; insufficiency; arrest (adult) (3 sources) Acute hypoxemic respiratory failure; Translations: [Acute respiratory failure with hypoxia] Onset: 4 06-13-2023 Episodic Spondylosis; intervertebral disc disorders; other back problems (20 sources) Post-laminectomy syndrome; Translations: [Postlaminectomy syndrome, not elsewhere classified] Onset: 6 12-05-2015 Chronic Substance-related disorders (20 sources) Tobacco user; Translations: [Nicotine dependence, unspecified, uncomplicated] Onset: 0 12-16-2019 Chronic Viral infection (2 sources) Herpes zoster without complication; Translations: [Zoster without complications] Onset: 2 Episodic Past or Other Problems Problem Classification Problem Date Documented Da te Episodic/Chronic Gastritis and duodenitis (2 sources) Helicobacter pylori-associated gastritis; Translations: [Gastritis, unspecified, without bleeding] Onset: 01-24-2021 02-10-2021 Episodic Headache; including migraine (20 sources) Headache; Translations: [Persistent headaches] Onset: 08-14-2018 08-14-2018 Episodic Other aftercare (20 sources) Patient encounter status; Translations: [Other half-way (current) drug therapy] Onset: 07-01-2022 Episodic Other aftercare (1 source) Other half-way (current) drug therapy; Translations: [Encounter for long-term [...] dyskinesia; Translations: [Drug induced subacute dyskinesia] Onset: 07-01-2022 Episodic Other hereditary and degenerative nervous system [...] [Left wrist pain] Onset: 01-15-2023 Episodic Other screening for suspected conditions (not mental disorders or infectious disease) (1 source) Encounter for screening mammogram for malignant neoplasm of breast; Translations: [Encounter for screening mammogram for breast cancer] Onset: 03-15-2023 Episodic Other skin disorders (1 source) Ingrowing [...] Date Time Vital Sign Value Performing Clinician Chantel licea 06-13-2023 18:40-0500 Body temperature 97.59 [degF] Jericho Nieves MD Work Phone: [facility] 06-13-2023 18:40-0500 Body weight 111.81 kg Jericho Nieves MD Work Phone: [facility] 06-13-2023 18:40-0500 Diastolic blood pressure 39 mm[Hg] Jericho Nieves MD Work Phone: [facility] 06-13-2023 18:40-0500 Heart rate 65 /min Jericho Nieves MD Work Phone: [facility] 06-13-2023 18:40-0500 Respiratory rate 24 /min Jericho Nieves MD Work Phone: [facility] 06-13-2023 18:40-0500 Systolic blood pressure 76 mm[Hg] Jericho Nieves MD Work Phone: [facility] 05-14-2023 08:56-0500 Body weight 128.19 kg Seda Rajguru CASHIER OR CHECKER STOCK CLERK.COMPUTER ANALYST Work Phone: [facility] 05-14-2023 08:56-0500 Diastolic blood pressure 58 mm[Hg] Seda Rajguru CASHIER OR CHECKER STOCK CLERK.COMPUTER ANALYST Work Phone: [facility] 05-14-2023 08:56-0500 Heart rate 80 /min Seda Rajguru CASHIER OR CHECKER STOCK CLERK.COMPUTER ANALYST Work Phone: [facility] 05-14-2023 08:56-0500 Systolic blood pressure 122 mm[Hg] Seda Rajguru CASHIER OR CHECKER STOCK CLERK.COMPUTER ANALYST Work Phone: [facility] 04-02-2023 13:37-0500 Body weight 126.1 kg Seda Rajguru CASHIER OR CHECKER STOCK CLERK.COMPUTER ANALYST Work Phone: [facility] 04-02-2023 13:37-0500 Diastolic blood pressure 66 mm[Hg] Seda Slimeru CASHIER OR CHECKER STOCK CLERK.COMPUTER ANALYST Work Phone: [facility] 04-02-2023 13:37-0500 Heart rate 80 /min Seda Slimeru CASHIER OR CHECKER STOCK CLERK.COMPUTER ANALYST Work Phone: [facility] 04-02-2023 13:37-0500 Systolic blood pressure 138 mm[Hg] Seda Slimeru CASHIER OR CHECKER STOCK CLERK.COMPUTER ANALYST Work Phone: [facility] 03-06-2023 11:02-0400 Body weight 127.87 kg Jericho Nieves MD Work Phone: [facility] 03-06-2023 11:02-0400 Diastolic blood pressure 60 mm[Hg] Jericho Nieves MD Work Phone: [facility] 03-06-2023 11:02-0400 Heart rate 64 /min Jericho Nieves MD Work Phone: [facility] 03-06-2023 11:02-0400 Respiratory rate 20 /min Jericho Nieves MD Work Phone: [facility] 03-06-2023 11:02-0400 Systolic blood pressure 118 mm[Hg] Jericho Nieves MD Work Phone: [facility] 01-21-2023 12:56-0400 Body weight 124.29 kg Jamilah Mandy PA-C Work Phone: [facility] 01-21-2023 12:56-0400 Diastolic blood pressure 60 mm[Hg] Jamilah Mandy PA-C Work Phone: [facility] 01-21-2023 12:56-0400 Heart rate 62 /min Jamilah Mandy PA-C Work Phone: [facility] 01-21-2023 12:56-0400 Respiratory rate 15 /min Jamilah Mandy PA-C Work Phone: [facility] 01-21-2023 12:56-0400 SaO2% (BldA) [Mass fraction] 97 % Jamilah ESTRADAC Work Phone: [facility] 01-21-2023 12:56-0400 Systolic blood pressure 122 mm[Hg] Jamilah Hampton PA-C Work Phone: [facility] 01-15-2023 08:17-0400 Body weight 126.55 kg Seda Rajguru CASHIER OR CHECKER STOCK CLERK.COMPUTER ANALYST Work Phone: [facility] 01-15-2023 08:17-0400 Diastolic blood pressure 58 mm[Hg] Seda Rajguru CASHIER OR CHECKER STOCK CLERK.COMPUTER ANALYST Work Phone: [facility] 01-15-2023 08:17-0400 Heart rate 76 /min Seda Rajguru CASHIER OR CHECKER STOCK CLERK.COMPUTER ANALYST Work Phone: [facility] 01-15-2023 08:17-0400 Systolic blood pressure 132 mm[Hg] Seda Rajguru CASHIER OR CHECKER STOCK CLERK.COMPUTER ANALYST Work Phone: [facility] 07-20-2022 15:15-0400 Body height 156.2 cm Pulm Wstr Work Phone: [facility] 07-20-2022 15:15-0400 Body weight 119.75 kg Pulm Wstr Work Phone: [facility] 07-19-2022 14:43-0400 Body weight 119.75 kg Talia Tineo MD Work Phone: [facility] 07-19-2022 14:43-0400 Diastolic blood pressure 84 mm[Hg] Talia Tineo MD Work Phone: [facility] 07-19-2022 14:43-0400 Heart rate 75 /min Talia Tineo MD Work Phone: [facility] 07-19-2022 14:43-0400 Respiratory rate 18 /min Talia Tineo MD Work Phone: [facility] 07-19-2022 14:43-0400 SaO2% (BldA) [Mass fraction] 97 % Talia Tineo MD Work Phone: [facility] 07-19-2022 14:43-0400 Systolic blood pressure 138 mm[Hg] Talia Tineo MD Work Phone: [facility] 06-01-2022 10:40-0500 Body weight 118.84 kg Joanna Older CASHIER OR CHECKER STOCK CLERK.COMPUTER ANALYST Work Phone: [facility] 06-01-2022 10:40-0500 Diastolic blood pressure 60 mm[Hg] Joanna Older CASHIER OR CHECKER STOCK CLERK.COMPUTER ANALYST Work Phone: [facility] 06-01-2022 10:40-0500 Heart rate 68 /min Joanna Older CASHIER OR CHECKER STOCK CLERK.COMPUTER ANALYST Work Phone: [facility] 06-01-2022 10:40-0500 Respiratory rate 20 /min Joanna Older CASHIER OR CHECKER STOCK CLERK.COMPUTER ANALYST Work Phone: [facility] 06-01-2022 10:40-0500 SaO2% (BldA) [Mass fraction] 98 % Joanna Older CASHIER OR CHECKER STOCK CLERK.COMPUTER ANALYST Work Phone: [facility] 06-01-2022 10:40-0500 Systolic blood pressure 114 mm[Hg] Joanna Older CASHIER OR CHECKER STOCK CLERK.COMPUTER ANALYST Work Phone: [facility] 04-11-2022 16:17-0500 Body weight 118.84 kg Jericho Nieves MD Work Phone: [facility] 04-11-2022 16:17-0500 Diastolic blood pressure 64 mm[Hg] Jericho Nieves MD Work Phone: [facility] 04-11-2022 16:17-0500 Heart rate 69 /min Jericho Nieves MD Work Phone: [facility] 04-11-2022 16:17-0500 Respiratory rate 20 /min Jericho Nieves MD Work Phone: [facility] 04-11-2022 16:17-0500 SaO2% (BldA) [Mass fraction] 98 % Jericho Nieves MD Work Phone: [facility] 04-11-2022 16:17-0500 Systolic blood pressure 94 mm[Hg] Jericho Nieves MD Work Phone: [facility] 03-08-2022 15:35-0400 Body temperature 98.42 [degF] ROBIN RIGGS MD [facility] 03-08-2022 15:35-0400 Diastolic blood pressure 82 mm[Hg] ROBIN RIGGS MD [facility] 03-08-2022 15:35-0400 Heart rate 82 /min ROBIN RIGGS MD [facility] 03-08-2022 15:35-0400 Respiratory rate 16 /min ROBIN RIGGS MD [facility] 03-08-2022 15:35-0400 Systolic blood pressure 154 mm[Hg] ROBIN RIGGS MD [facility] 03-01-2022 10:50-0400 Body weight 120.2 kg Jericho Nieves MD Work Phone: [facility] 03-01-2022 10:50-0400 Diastolic blood pressure 76 mm[Hg] Jericho Nieves MD Work Phone: [facility] 03-01-2022 10:50-0400 Heart rate 69 /min Jericho Nieves MD Work Phone: [facility] 03-01-2022 10:50-0400 Respiratory rate 14 /min Jericho Nieves MD Work Phone: [facility] 03-01-2022 10:50-0400 SaO2% (BldA) [Mass fraction] 98 % Jericho Nieves MD Work Phone: [facility] 03-01-2022 10:50-0400 Systolic blood pressure 124 mm[Hg] Jericho Nieves MD Work Phone: [facility] 01-18-2022 13:02-0400 Body height 156.2 cm Jamilah Mandy PA-C Work Phone: [facility] 01-18-2022 13:02-0400 Body weight 121.56 kg Jamilah Mandy PA-C Work Phone: [facility] 01-18-2022 13:02-0400 Diastolic blood pressure 68 mm[Hg] Jamilah Mandy PA-C Work Phone: [facility] 01-18-2022 13:02-0400 Heart rate 62 /min Jamilah Mandy PA-C Work Phone: [facility] 01-18-2022 13:02-0400 Respiratory rate 14 /min Jamilah Mandy PA-C Work Phone: [facility] 01-18-2022 13:02-0400 SaO2% (BldA) [Mass fraction] 96 % Jamilah Mandy PA-C Work Phone: [facility] 01-18-2022 13:02-0400 Systolic blood pressure 122 mm[Hg] Jamilah Mandy PA-C Work Phone: [facility] 01-18-2022 12:46-0400 Body height 156.2 cm Respiratory Wstr Work Phone: [facility] 01-18-2022 12:46-0400 Body weight 121.97 kg Respiratory Wstr Work Phone: [facility] 01-18-2022 12:46-0400 Heart rate 62 /min Respiratory Wstr Work Phone: [facility] 01-18-2022 12:46-0400 Respiratory rate 14 /min Respiratory Wstr Work Phone: [facility] 01-18-2022 12:46-0400 SaO2% (BldA) [Mass fraction] 96 % Respiratory Wstr Work Phone: [facility] Encounters Encounter Date Encounter Type Care Provider Facility Start: 06-14-2023 Telephone encounter Jericho roman MD Work Phone: [facility] [place] Procedures Date Procedure Procedure Detail Performing Clinician Start: 07-20-2022 Spmtry w/vc expirato ry jewel w/wo mxml vol vntj Talia Tineo MD Work Phone: Start: 01-18-2022 Nitric oxide gas determination Jamilah Hampton PA-C Work Phone: Start: 01-18-2022 Spmtry w/vc expirato ry jewel w/wo mxml vol vntj Jamilah Hampton PA-C Work Phone: Start: 12-02-2021 Adult depression scr eening assessment Jericho Nieves MD Work Phone: Start: 11-17-2020 Mammography Jamilah ESTRADAC Work Phone: Start: 10-25-2020 Adult depression scr eening assessment Jamilah Hampton PA-C Work Phone: Start: 09-02-2017 Colonoscopy Jamilah hughes PA-C Work Phone: Start: 09-02-2017 Colonoscopy ROBIN LYONS MD Arthroscopic knee operation ROBIN RIGGS MD Plan of Treatment Date Care Activity Detail Author Start: 09-03-[address] [facility] Start: 09-03-2027 COLORECTAL CANCER SCREENING COLORECTAL CANCER SCREENING [facility] Start: 09-03-2027 Screening for malign ant neoplasm of colon [facility] Start: 08-24-[address] [facility] Start: 06-13-2024 Annual PCP Team Laboratory Specialist regan Disease Visit Annual PCP Team Chronic Disease Visit [facility] Start: 06-13-2024 Diabetic foot examination Diabetic F oot Exam [facility] Start: 04-12-2024 Glaucoma screening Dilated Retinal E xam [facility] Start: 03-15-2024 Mammography Mammogram Screening [facility] Start: 03-15-2024 Screening for malign ant neoplasm of breast Mammogram Screening [facility] Start: 03-06-2024 Annual PCP Team Laboratory Specialist regan Disease Visit Annual PCP Team Chronic Disease Visit [facility] Start: 03-06-2024 Creatinine measurement Serum Creatin ine [facility] Start: 03-06-2024 Hepatitis B screening Urine Al bumin:Creatinine Ratio [facility] Start: 03-06-2024 Serum Creatinine Serum Creatinine Cl [facility] Start: 11-03-2023 Influenza vaccination Influenza Vacc ine (#1) [facility] Immunizations Immunization Date Immunization Notes Care Provider Radha baez 04-07-2019 influenza, injectabl e, quadrivalent, contains preservative Jamilah Mandy PA-C Work Phone: [facility] 04-07-2019 influenza virus vacc ine, unspecified formulation Seda Quiroz CASHIER OR CHECKER STOCK CLERK.COMPUTER ANALYST Work Phone: [facility] 02-04-2018 influenza, high dose seasonal, preservative-free Jamilah Mandy PA-C Work Phone: [facility] Work Phone: 02-20-2017 influenza, injectabl e, quadrivalent, contains preservative Jamilah Mandy PA-C Work Phone: [facility] 03-02-2016 influenza, injectabl e, quadrivalent, contains preservative Jamilah Mandy PA-C Work Phone: [facility] 03-02-2016 pneumococcal polysaccharide vaccine, 23 valent Jamilah Mandy PA-C Work Phone: [facility] 08-25-2015 tetanus toxoid, redu christiano diphtheria toxoid, and acellular pertussis vaccine, adsorbed Jamilah Mandy PA-C Work Phone: [facility] 05-26-2015 influenza, injectabl e, quadrivalent, contains preservative Jamilah Mandy PA-C Work Phone: [facility] Payers Date Payer Category Payer Medicaid [facility] MEDICAID [employer] [facility] MEDICAID [id number] 2015-Present [phone] [address] [place] [address] Medicaid [id number] 2015 Medicare [id number] 2015 Medicare [facility] MEDICARE [employer] ARE [facility] MEDICARE [id number] 2015-Present [phone] [address] [place] [address] Medicare [id number] 2015 Unknown [id number] 1966 Unknown [id number] 1966 Unknown [id number] Social History Date Type Detail Facility Start: 1981 End: 07-19-2022 Tobacco smoking status NHIS Smokes tobacco daily [facility] Work Phone: Start: 1981 End: 05-31-2023 History of tobacco use Cigarette Smoker [facility] Work Phone: Start: 12-16-2019 End: 09-20-2022 Cigarettes smoked current (pack per day) - Reported 1 [facility] Start: 12-16-2019 End: 06-13-2023 Tobacco use and exposure Smokeless tobacco non-user [facility] Work Phone: Start: 07-17-2021 End: 06-01-2022 Alcohol intake Current drinker of alcohol (finding) [facility] Start: 10-25-2020 History SDOH Alcohol Comment occasional, rarely [facility] Start: 02-22-2020 End: 08-27-2022 History SDOH Financial 5 [facility] Start: 02-22-2020 End: 08-27-2022 History SDOH Food Worry 1 [facility] Start: 02-22-2020 End: 08-27-2022 History SD[facility] Start: 1965 Sex Assigned At Not on file [facility] Start: 07-07-2021 End: 01-31-2022 Exposure to SARS-CoV-2 (event) Not sure [facility] Start: 07-30-2022 History SDOH Alcohol Comment rare [address] [facility] Start: 12-02-2021 End: 08-27-2022 History SDOH Physical Activity DPW 0 [facility] Start: 12-02-2021 End: 01-18-2022 Tobacco Comment from age 16 [facility] Start: 03-05-2019 Tobacco smoking status Heavy t obacco smoker (finding) [facility] Sex Assigned At Sex [facility] Start: 06-22-2022 End: 06-13-2023 Alcohol intake Ex-drinker (finding) [facility] Start: 07-19-2022 Tobacco Comment from age 16. O ne PPD in past. Cut to 1/[address] [facility] Start: 08-27-2022 History SDOH Social Connections Phone 3 [facility] Start: 08-27-2022 History SDOH Social Connections Living 8 [facility] Start: 08-27-2022 End: 09-20-2022 Social connection and isolation panel [facility] Do you belong to any clubs or organizations such as rastafarian groups, [employer], [employer] or athletic groups, or school groups? No [facility] Are you now , , , , never or living with a partner? Living with partner [facility] How often to you hav e a drink containing alcohol? Monthly or less [facility] How many standard dr inks containing alcohol do you have on a typical day? [address] [facility] How often do you hav e 6 or more drinks on 1 occasion? Never [facility] How hard is it for y ou to pay for the very basics like food, housing, medical care, and heating Not hard at all [facility] Do you feel stress - tense, restless, nervous, or anxious, or unable to sleep at night because your mind is troubled all the time - these days [OSQ] To some extent [facility] (I/We) worried carlos er (my/our) food would run out before (I/we) got money to buy more. Never true [facility] Start: 06-13-2023 Tobacco smoking stat us NHIS Ex-smoker [facility] Work Phone: Start: 1980 End: 05-31-2023 History of tobacco use Current smoker [facility] Work Phone: Medical Equipment Procedure Code Equipment Code Equipment Origin al Text Equipment Identifier Dates Spacer Avs 4d 8m m Spinal Bone Plug - [id number] Start: 05-30-2019 Benson Drill Bit 12mm X 23mm _imp Start: 05-30-2019 Self Starting Variable Screw Size 4.0mm X 14mm _imp Start: 05-30-2019 Benson Cervical P late 1-Level 22mm _imp Start: 05-30-2019 Test blood sugar (s) 3 times daily. Dx: Other DM Code E11.22; N18.31; Z79.4 Insulin: Yes Start: 06-08-2023 Functional Status Date Assessment Result Facility 03-08-2022 Functional Status Standard Safet y ID band on, Call device within reach, Bed in low position, Wheels locked, Upper/Half-Length side-rails up, Bedside Cart Locked, Safety level maintained [facility] Mental Status Date Assessment Result Facility 03-08-2022 Mental Status Orientation Oriented x 4 [facility] Clinical Notes 01-25-2020 to 06-15-2023 Telephone Encounter - Kim Teague LPN - 06/15/2023 8:13 AM ESTTelephone Encounter - Jericho Nieves MD - 06/14/2023 5:09 PM ESTPatient Instructions Note Date & Type Note Facility 06-15-2023 Miscellaneous Notes Formattin g of this note might be different from the original. Phoned Dalia and left detailed message from Dr Nieves on voicemail. Okay. Dalia SW from [facility] calls and states that she visited patient this week. Dalia requesting a verbal order for follow up visit next week so that she can finish up helping patient with community resources. Renee Uriostegui RN documented in this encounter [facility] 06-13-2023 Instructions Jericho Nieves MD - 06/13/2023 7:17 PM EST BLOOD WORK SOON, NO NEED TO FAST. STOP LOSARTAN 50 MG DAILY. CALL IF BLOOD SUGARS LESS THAN 70 OR MORE THAN 250. documented in this encounter [facility] 06-13-2023 History of Presen t illness Narrative This note was created using [employer]. Subjective Patient presents with: ER F/U: [facility] 06/06/23; Pneumonia d/t COVID-19, acute exacerbation of COPD with asthma & acute hypoxemic respiratory failure Juan Eagle was here with significant other for follow up, after admission 05/31/23 to 06/06/23 for Covid pneumonia, respiratory failure, COPD exacerbation, acute kidney injury, and uncontrolled diabetes mellitus. There was concern also for gram negative pneumonia. She was now home on oxygen 4 LPM continuous, and 6 LPM with exertion. Her diabetes mellitus was out of control, probably from steroids and was discharged on mixed dose insulin including sliding scale, which was not sent to the pharmacy. Home health was following and assessed patient will not be able to comply with sliding scale insulin. 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 She expressed willingness to do one daily dose of insulin. She was somewhat better, but acknowledged she was disoriented after getting home from the hospital. She had lost weight and her blood pressure had been running low.. Review of Systems Constitutional: Positive for activity change, appetite change, fatigue and unexpected weight change. Negative for chills and fever. HENT: Negative for congestion and sore throat. Eyes: Negative for visual disturbance. Respiratory: Positive for shortness of breath and wheezing. Negative for cough. Cardiovascular: Negative for chest pain, palpitations and leg swelling. Gastrointestinal: Negative for diarrhea and nausea. Genitourinary: Negative for difficulty urinating and dysuria. Musculoskeletal: Positive for gait problem. Neurological: Positive for light-headedness. Negative for syncope and headaches. ACTIVE PROBLEM LIST Panic Disorder With Agoraphobia Type 2 Diabetes Mellitus With Stage 3a Chronic Kidney Disease (Hcc) Mixed Hyperlipidemia Jose On Cpap Radiculopathy, Lumbar Region Postlaminectomy Syndrome Ddd (Degenerative Disc Disease), Lumbar Edema Class 3 Severe Obesity With Body Mass Index (Bmi) of 50.0 to 59.9 in Adult ([facility]) Persistent Headaches S/P Cervical Spinal Fusion Tobacco Use Disorder Moderate Persistent Asthma Without Complication Psoriatic Arthritis (Hcc) Irritable Bowel Syndrome With Diarrhea Stage 3a Chronic Kidney Disease ([facility]) Coronary Artery Disease Involving Enterprise Coronary Artery of Enterprise Heart Without Angina Pectoris St Elevation Myocardial Infarction Involving Left Circumflex Coronary Artery ([facility]) Ischemic Cardiomyopathy Encounter for Long-Term (Current) Use of Medications Bipolar Disorder ([facility]) Ptsd (Post-Traumatic Stress Disorder) Dyskinesia, Tardive Social History Tobacco Use Smoking status: Former Packs/day: 0.50 Years: 40.00 Additional pack years: 0.00 Total pack years: 20.00 Types: Cigarettes Start date: 1980 Quit date: 05/31/2023 Years since quittin.0 Smokeless tobacco: Never Tobacco comments: from age 16. One PPD in past. Cut to 1/2 PPD in April Vaping Use Vaping Use: Never used Substance Use Topics Alcohol use: Not Currently Comment: rare 1 drink Drug use: No Current Outpatient Medications Medication Sig furosemide (LASIX) 20 mg tablet Take 1 tablet by mouth every afternoon. OXYGEN, HOME THERAPY, 4 L/min by Nasal Cannula route continuous. Can increase up to 6 if needed. blood sugar diagnostic (BLOOD GLUCOSE TEST) test strip Test blood sugar(s) 3 times daily. Dx: Other DM Code E11.22; N18.31; Z79.4 Insulin: Yes valbenazine (INGREZZA) 80 mg capsule Take 1 capsule by mouth once daily. lamoTRIgine (LAMICTAL) 200 mg tablet Take 0.5 tablets by mouth every morning AND 1 tablet every evening. zolpidem (AMBIEN) 10 mg Take 1 tablet by mouth at bedtime as needed for up to 120 days. escitalopram oxalate (LEXAPRO) 20 mg tablet Take 1.5 tablets by mouth once daily. ALPRAZolam (XANAX) 0.5 mg tablet Take 1 tablet by mouth two times a day as needed for anxiety (panic symptoms) for up to 30 days. amitriptyline (ELAVIL) 75 mg tablet Take 1 tablet by mouth daily at bedtime. methotrexate 2.5 mg tablet Take 6 tablets by mouth one time a week. fluticasone-vilanterol (BREO ELLIPTA) 200-25 mcg/dose inhaler Inhale 1 Inhalation as instructed once daily. albuterol HFA (PROVENTIL HFA, VENTOLIN HFA) 90 mcg/actuation inhaler Inhale 2 Puffs as instructed every 4 hours as needed. dulaglutide (TRULICITY) 1.5 mg/0.5 mL pen injector Inject 1.5 mg subcutaneously one time a week. Inject once per week. Discard Pen After lansoprazole (PREVACID) 30 mg capsule Take 1 [...] Take 1 capsule by mouth twice daily. Blood-Glucose Meter monitoring kit Check 3 times a day. Glucose Meter of Choice - Kit - Dx: Other DM Code E11.22; N18.31; Z79.4 Insulin: Yes No current facility-administered medications for this visit. Objective BP (!) 76/39 Pulse 65 Temp 36.4 C (97.6 F) (Temporal) Resp 24 Wt 111.8 kg (246 lb 8 oz) BMI 45.82 kg/m Physical Exam Constitutional: General: She is not in acute distress. Appearance: She is obese. She is ill-appearing. She is not diaphoretic. HENT: Head: Normocephalic. Nose: No congestion or rhinorrhea. Mouth/Throat: Mouth: Mucous membranes are moist. Pharynx: Oropharynx is clear. Eyes: Extraocular Movements: Extraocular movements intact. Conjunctiva/sclera: Conjunctivae normal. Pulmonary: Effort: No respiratory distress. Breath sounds: No wheezing, rhonchi or rales. Comments: On O2 via 4 LPM via NC Abdominal: Palpations: Abdomen is soft. Tenderness: There is no abdominal tenderness. Neurological: General: No focal deficit present. Comments: On wheelchair. Feet:Shoes and socks removed, No deformities, ulcers, calluses, normal distal pulses, and not sensitive to 10 gm monofilament in some toes. Nails deformed, thickened, yellow. Assessment and Plan 1. Pneumonia due to COVID-19 virus - ICD9: 480.8, 079.89, ICD10: U07.1, J12.82 (primary diagnosis) Treated. 2. Moderate persistent asthma with acute exacerbation - ICD9: 493.92, ICD10: J45.41 Improved. - Continue current medications 3. Acute hypoxemic respiratory failure (HCC) - ICD9: 518.81, ICD10: J96.01 Continue O2 via NC. 4. Acute kidney injury (HCC) - ICD9: 584.9, ICD10: N17.9 Hydration stressed. 5. Coronary artery disease involving [place] coronary artery of [place] heart without angina pectoris - ICD9: 414.01, ICD10: I25.10 Stable. 6. Type 2 diabetes mellitus with stage 3a chronic kidney disease, with long-term current use of insulin (HCC) - ICD9: 250.40, 585.3, V58.67, ICD10: E11.22, N18.31, Z79.4 - Control undetermined, due for labs - Continue current medications - Hold off on insulin, pending more glucose readings at home. - COMP METABOLIC PANEL - HGB A1C 7. Anemia, unspecified type - ICD9: 285.9, ICD10: D64.9 - CBC Jericho Nieves MD documented in this encounter [facility] 06-12-2023 Miscellaneous Notes Formattin g of this note might be different from the original. Noted Renee BURKETT CM with [facility] called in and wanted to update provider about Pt before her appointment tomorrow at 340 pm. She reports she was D/Christiano home with Covid, asthma exacerbation, and Pneumonia on 05/29. Pt was readmitted this past Saturday as her O sat was 77% on her O2. She states the Pt was supposed to be seen yesterday, but on one was at home and the Pt does not have a working phone. When the nurse saw the Pt today she states she was all out of sorts. She states the Pt has the )2 concentrator up past 10L when she is only supposed to be on 4L. She states she turned the O2 down and her pulse ox was 93% and she started to make more sense. She states the Pt was supposed to be sent home from the [facility] on Prednisone and Humalog Kwik Pen AC/HS, but the pharmacy said they never received them. She does not know if provider would want to order the Prednisone since it has been 5 days since she was supposed to be on them. The pharmacy reports they have the glucometer ready for the Pt, but her significant other never went to pick it up for her. She had wanted to go over teaching with her about how to use it, but was not able to do that. Renee states the Pt said she has never been on insulin. The only diabetic medication I can see on Pts med list is Trulicity. CHIO RN said Pt does not have any at her house. She said she was filling the Pts pill box and she had a bunch of empty pills boxes, and she called in to have them refilled. She reports Pt has been very sick the past 2 weeks, so that could be part of the issue. She does not know if the provider wants to put the Pt on insulin, or if she was just on it due to being on the short term steroids. She figured this was something provider could go over with Pt at her discharge appointment tomorrow. If we could call and give Renee an update after the Pts appointment she would appreciate that, can leave a VM as it is a confidential line. documented in this encounter [facility] 06-10-2023 Miscellaneous Notes Formattin g of this note might be different from the original. Ginny with [facility] OT calling with pt update and OT plan of care. Ginny reports she visited patient this morning at pt's home at 10:30am. Pt was still resting in bed, states she did not feel good. Pt's BP was 164/74, pulse 96 at rest. Pt had not taken her morning medications yet or eat. Her SpO2 was 86% room air. Patient has home oxygen to use but was not wearing it EMILY Gross assisted patient in putting on her oxygen and pulse ox improved. Ginny reports current oxygen order is for 2-4 liters but Ginny noted the concentrator to be at 12 liters when she turned it on. Ginny educated patient on correct dose of oxygen and usage. Patient voiced to EMILY Gross that she would not be coming to scheduled appt today with Joanna Salinas CNP. This has been canceled. Pt does have Hospital F/U appt with Dr. Nieves for 06/12 which is still scheduled. Pt voiced that her cell phone is not working due to unable to pay bill. OT plan of care: Pt to be seen 2x/wk for 3 weeks for ADLs, activity tolerance and oxygen use. [facility] Nursing to visit patient at 12:30 today. No call back needed to EMILY Gross unless further orders are advised. Laxmi Sal RN documented in this encounter [facility] 06-10-2023 Miscellaneous Notes Formattin g of this note might be different from the original. Left message to call office. 06/10/2023 9:59 AM Need to cancel todays visit. Scheduled for 06/12 Call placed to Renee and provider message below reviewed. Renee verbalizes understanding. Sofi Carrion RN 1) Okay HH POC. 2) Continue O2 at 4 LPM via NC. 3) Diabetes instructions on insulins, glucometer use. Rx for glucometer sent to [facility]. 4) Allergy alerts and drug alerts noted. Continue current medications. Wyatt BURKETT calling from [facility] to report plan of care for patient and SN will visit patient 2 times a week for first 2 week and 1 time a week for 2 weeks. SN will work with patient on monitoring and education of COPD exacerbation, Pneumonia, and Covid. Renee reports that patient had a fall yesterday with no injuries. Patient was not wearing oxygen at the time of fall d/t the tubing not being long enough. Renee assisted patient with longer tubing and contacted [employer]. Patient's pulse ox was 87% at rest on 2 LPM when Renee got to the house today. She increased oxygen to 4 LPM via NC and pulse ox increased to 93% at rest. With Ambulation, pulse ox dropped to 81% on 4 LPM. Renee reports that the hospital started her on insulin (lispro AC HS) and patient doesn't have a glucometer nor does she understand how to inject insulin. Drug Interactions noted with admission to : Drug level 2 interaction: Coreg with Albuterol Inhaler and Breo Ellipta. Drug Allergy Alert: Buprenorphine Patch because of allergy to hydromorphone. Duplicate Drug Therapy: Lyrica and Latromigen Amitryptylline and Lexapro Sofi Carrion RN documented in this encounter [facility] documented in this encounter [facility]02-02-2024 Miscellaneous Notes* Telephone Encounter - Sofi Carrion RN - 06/07/2023 3:45 PM EST Renee with [facility] calls to go over POC and in reviewing appointments Renee notes that she doesn't think patient is aware of either of her appointments next week with provider's office. Attempted to contact patient and significant other numerous times. Neither phone answered and unable to leave a message. Attempted to contact sister Kailyn and number is not in service. MC message sent to patient to contact office. If patient returns call please verify appointment next week she would like to keep. Saturday06/10/2023 at 1140 am with Joanna (change to a hospital follow up). Saturday06/12/[address] Ezequiel Carrion, RN documented in [facility] NoteHNO ID: [id number] Author: SEDA QUIROZ APRN.COMPUTER ANALYST Service: ? Author Type: Nurse Practitioner Type: [...] really hard time sitting in the car. Violet that the car was caving in on [...] AND/TRANSPOS MEDIAN NRV CARPAL TUNNE Left 08/30/2009 [facility] PAST SURGICAL HISTORY OF 05/30/2019 C5-[address] Grace Long PT ED HEART AND VASCULAR Cardiac Stent [facility] 04/04/22 S PROBE PERC LUMBAR DISCECTOMY 04/2000 [facility] Current Outpatient Medications Medication Sig Dispense [...] tablet 3 escitalopram o (more content not included)...[facility] 05-14-2023 History of Present illness Narrative* Seda Quiroz, CASHIER OR CHECKER STOCK CLERK.COMPUTER ANALYST - 05/14/2023 9:02 AM EST FOLLOW UP - PSYCHIATRIC PROGRESS NOTE Visit [...] really hard time sitting in the car. Violet that the car was caving in on [...] population = 50. Five points is a clinicallymeaningful difference.) 06/16/2022 09/13/2022 01/15/2023 Physical T-Score 34.9 39.8 34.9 Mental T-Score 33.8 43.5 36.3 PAST MEDICAL HISTORY Diagnosis Date Acute myocardial infarction of lateral wall ([facility]) 04/04/2022 [facility] Cerebellar mass 1995 mass versus infarct Cervical cord compression with myelopathy ([facility]) 05/28/2019 Depression 04/11/2015 Disc degeneration, lumbar [...] region 12/05/2015 Stage 3b chronic kidney disease ([facility]) 12/04/2021 Type 2 diabetes mellitus without complication ([facility]) 03/02/2016 PAST SURGICAL HISTORY Procedure Laterality [...] &/TRANSPOS MEDIAN NRV CARPAL TUNNE Left 08/30/2009 [facility] PAST SURGICAL HISTORY OF 05/30/2019 C5-[address] Grace Long PT ED HEART AND VASCULAR Cardiac Stent [facility] 04/04/22 S PROBE PERC LUMBAR DISCECTOMY 04/2000 [facility] Current Outpatient Medications Medication Sig Dispense [...] indicated) , filters, tubing, humidifierand lifetime supplies. 1 Device 11 LYRICA 75 [...] REVIEWED: Psychiatric scales, Electronic medical record, and Embedded Software Manager notes DIAGNOSIS: Bipolar disorder, currently depressed, moderate [...] which included preparing to see the patient, [id number] patient care, completing clinical documentation, obtaining and/or reviewing separately obtained history, performing a medically appropriate examination, counseling and educating the pat ient/family/caregiver, ordering medications, tests, or procedures, communicating with other HCPs (not separately reported), independently interpreting results (not separately reported), and communicating results to the patient/family/caregiver. ADD ON PSYCHOTHERAPY CODE : No SIGNATURE: Seda Quiroz APRN.CNP PATIENT NAME: Juan Eagle DATE: May 14, 2023 TIME: 9:03 AM documented in [facility] NoteHNO ID: [id number] Author: Seda Quiroz APRN.CNP Service: ? Author [...] struggling with shortness of breath. Saw her blind slat stapling machine operator and was notified that her lung function was normal. Has been following up with her cement and concrete plant worker. Had to take Nitro due to chest [...] Date Acute myocardial infarction of lateral wall ([facility]) 04/04/2022 [facility] Cerebellar mass 1995 mass versus infarct Cervical cord compression with myelopathy ([facility]) 05/28/2019 Depression 04/11/2015 Disc degeneration, lumbar [...] region 12/05/2015 Stage 3b chronic kidney disease ([facility]) 12/04/2021 Type 2 diabetes mellitus without complication ([facility]) 03/02/2016 PAST SURGICAL HISTORY Procedure Laterality [...] AND/TRANSPOS MEDIAN NRV CARPAL TUNNE Left 08/30/2009 [facility] PAST SURGICAL HISTORY OF 05/30/2019 C5-[address] Grace Long PT ED HEART AND VASCULAR Cardiac Stent [facility] 04/04/22 S PROBE PERC LUMBAR DISCECTOMY 04/2000 [facility] Current Outpatient Medications Medication Sig Dispense [...] Take 1 tablet by (more content not included)...[facility]11-28-2023 History of Present illness Narrative* Seda Quiroz, CASHIER OR CHECKER STOCK CLERK.COMPUTER ANALYST - 04/02/2023 2:10 PM EST FOLLOW UP - PSYCHIATRIC PROGRESS NOTE Visit Type:In person Reason for Visit: Outpatient follow-up and safety monitoring of previously prescribed psychiatric medication, psychotherapy or other treatment CC: Follow up for psychiatric medication management HPI: Today Juan shares that she called to schedule an appointment with her regular therapist. She has anappointment in May. Has been struggling with shortness of breath. Saw her blind slat stapling machine operator and was notified that her lung function was normal. Has been following up with her cement and concrete plant worker. Had to take Nitro due to chest [...] and its hard for her to be aroundothers. She has noticed improvement in her TD [...] population = 50. Five points is a clinicallymeaningful difference.) 06/16/2022 09/13/2022 01/15/2023 Physical T-Score 34.9 [...] 12/04/2021 Type 2 diabetes mellitus without complication ([facility]) 03/02/2016 PAST SURGICAL HISTORY Procedure Laterality [...] &/TRANSPOS MEDIAN NRV CARPAL TUNNE Left 08/30/2009 [facility] PAST SURGICAL HISTORY OF 05/30/2019 C5-[address] Grace Long PT ED HEART AND VASCULAR Cardiac Stent [facility] 04/04/22 S PROBE PERC LUMBAR DISCECTOMY 04/2000 [facility] Current Outpatient Medications Medication Sig Dispense [...] indicated) , filters, tubing, humidifierand lifetime supplies. 1 Device 11 LYRICA 75 [...] which included preparing to see the patient, [id number] patient care, completing clinical documentation, obtaining and/or reviewing separately obtained history, performing a medically appropriate examination, counseling and educating the pat ient/family/caregiver, ordering medications, tests, or procedures, communicating with other HCPs (not separately reported), independently interpreting results (not separately reported), and communicating results to the patient/family/caregiver. ADD ON PSYCHOTHERAPY CODE : No SIGNATURE: Seda Quiroz APRN.CNP PATIENT NAME: Juan Eagle DATE: April 02, 2023 TIME: 2:10 PM documented in this encounterSt[facility] Miscellaneous Notes* Telephone Encounter - Michelle Sanchez LPN - 03/19/2023 2:57 PM EST Patient notified and voices understanding. * Telephone Encounter - Seda Quiroz APRN.CNP - 03/19/2023 2:50 PM EST Please notify the patient that Ingrezza was refilled. * Telephone Encounter - Brigette Fregoso LPN - 03/19/2023 2:18 PM EST Pt calling for a refill on medication [...] in for last apt. documented in this encounterSt. [facility]23 NoteHNO ID: [id number] Author: Marta Mosqueda RT(R) Service: ? Author [...] BY: RT Arias(R) March 15, 2023 1:24 [facility] Miscellaneous Notes* Telephone Encounter - Gricelda Duckworth LPN - 03/11/2023 3:09 PM EST Patient has been identified by name and [...] you. Gricelda Duckworth LPN. documented in this encounterSt. [facility]23 NoteHNO ID: [id number] Author: Aron Brothers Service: ? Author Type: Physician Type: Progress [...] is to RTC in 3-4 months. Aron Brothers [facility]11-02-2023 NoteHNO ID: [id number] Author: Pepper Estrada LPN Service: ? Author Type: LICENSED NURSE Type: Progress Notes Filed: 03/08/2023 10:31 PM Note Text: AMB ROOMING INTAKE FLOWSHEET DATA Patient presents with: Left Foot - Established Patient, Diabetic Foot Care Right Foot - Established Patient, Diabetic Foot Care Pepper Estrada [facility]11-01-2023 NoteHNO ID: [id number] Author: Jericho Nieves MD Service: ? Author Type: Physician Type: Progress Notes Filed: 03/06/2023 12:34 PM Note Text: This note was created using [employer]. Subjective Juan Eagle is a 58 year old female. She's been dealing with right wrist pain for about 2 months, with no injury. She reported taking up to 12 ibuprofen per day. Pain was worse with movement. Bracing helped some. X rays showed no acute findings. Her joints have been hurting more in general. 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 radial router operator in [place], so had been off Humira for more [...] Mellitus With Stage 3a Chronic Kidney Disease ([facility]) Mixed Hyperlipidemia Jose On Cpap Radiculopathy, Lumbar Region Postlaminectomy Syndrome Ddd (Degenerative Disc Disease), Lumbar Edema Class 3 Severe Obesity With Body Mass Index (Bmi) of 50.0 to 59.9 in Adult ([facility]) Persistent Headaches S/P Cervical Spinal Fusion Tobacco Use Disorder Moderate Persistent Asthma Without Complication Psoriatic Arthritis ([facility]) Irritable Bowel Syndrome With Diarrhea Stage 3a Chronic Kidney Disease ([facility]) Coronary Artery Disease Involving Enterprise Coronary Artery of Enterprise Heart Without Angina Pectoris St Elevation Myocardial Infarction Involving Left Circumflex Coronary Artery ([facility]) Ischemic Cardiomyopathy Encounter for Long-Term (Current) Use of Medications Bipolar Disorder ([facility]) Ptsd (Post-Traumatic Stress Disorder) Dyskinesia, Tardive Current [...] Status: She is aler (more content not included)...[facility]11-01-2023 History of Present illness Narrative* Jericho Nieves MD - 03/06/2023 11:16 AM EDT This note was created using TrustCloud[employer]. Subjective Juan Eagle is a 58 year old female. She's been dealing with right wrist pain for about 2 months, with no injury. She reported taking up to 12 ibuprofen per day. Pain was worse with movement. Bracing helped some. X rays showed no acute findings. Her joints have been hurting more in general. 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 so had been off Hum[facility] for more [...] Mellitus With Stage 3a Chronic Kidney Disease ([facility]) Mixed Hyperlipidemia Jose On Cpap Radiculopathy, Lumbar Region Postlaminectomy Syndrome Ddd (Degenerative Disc Disease), Lumbar Edema Class 3 Severe Obesity With Body Mass Index (Bmi) of 50.0 to 59.9 in Adult ([facility]) Persistent Headaches S/P Cervical Spinal Fusion Tobacco Use Disorder Moderate Persistent Asthma Without Complication Psoriatic Arthritis ([facility]) Irritable Bowel Syndrome With Diarrhea Stage 3a Chronic Kidney Disease ([facility]) Coronary Artery Disease Involving Enterprise Coronary Artery of Enterprise Heart Without Angina Pectoris St Elevation Myocardial Infarction Involving Left Circumflex Coronary Artery ([facility]) Ischemic Cardiomyopathy Encounter for Long-Term (Current) Use of Medications Bipolar Disorder ([facility]) Ptsd (Post-Traumatic Stress Disorder) Dyskinesia, Tardive Current [...] indicated) , filters, tubing, humidifierand lifetime supplies. LYRICA 75 mg capsule Take [...] A1C - ALBUMIN/CREAT RATIO RND UR Jericho Nieves MD documented in this encounterSt. [facility] Miscellaneous Notes* Telephone Encounter - Michelle Sanchez LPN - 02/20/2023 12:45 PM EDT Message to call office. * Telephone Encounter - Michelle Sanchez LPN - 02/18/2023 8:54 AM EDT Message to call office. * Telephone Encounter - Michelle Sanchez LPN - 02/15/2023 8:10 AM EDT Message to call office. * Telephone Encounter - Angela Pacheco - 02/14/2023 9:59 AM EDT Last: 01/15/2023 Noted-follow up 4 weeks 02/12/2023-cx'd by patient Covid exposure Next: NA documented in this encounterSt. Mary'[facility]-18-2023 NoteHNO ID: [id number] Author: Jamilah Hampton PA-C Service: ? Author Type: Physician Boilerhouse Mechanic Type: Progress Notes Filed: 01/21/2023 1:28 PM Note Text: Patient: Juan Eagle PCP: Jericho Nieves MD CC: follow up HPI: Juan Eagle 57 year old morbidly obese female current 58-nlle-nqhj smoker with PMH significant for GERD, HLD, JOSE on CPAP, DM2, OH in March 2022 coded 3 times s/p [...] all sleep. DME: Medical Service. Follow with [facility]. PAST MEDICAL HISTORY Diagnosis Date Acute myocardial infarction of lateral wall ([facility]) 04/04/2022 [facility] Cerebellar mass 1995 mass versus infarct Cervical cord compression with myelopathy ([facility]) 05/28/2019 Depression 04/11/2015 Disc degeneration, lumbar [...] 12/04/2021 Type 2 diabetes mellitus without complication ([facility]) 03/02/2016 Allergies: Codeine Other: See Comments [...] Grandmother PAST SURGICAL HISTOR (more content not included)...[facility] 01-21-2023 History of Present illness Narrative* Jamilah Hampton PA-C - 01/21/2023 12:59 PM EDT Images from the original note were not included. Patient: Juan Eagle PCP: Jericho Nieves MD CC: follow up HPI: Juan Eagle 57 year old morbidly obese female current 47-hkce-mthn smoker with PMH significant for GERD, HLD, JOSE on CPAP, DM2, OH in March 2022 coded 3 times s/p [...] all sleep. DME: Medical Service. Follow with [facility]. PAST MEDICAL HISTORY Diagnosis Date [...] indicated) , filters, tubing, humidifierand lifetime supplies. LYRICA 75 mg capsule Take [...] &/TRANSPOS MEDIAN NRV CARPAL TUNNE Left 08/30/2009 [facility] PAST SURGICAL HISTORY OF 05/30/2019 C5-[address] Grace Long PT ED HEART AND VASCULAR Cardiac Stent [facility] 04/04/22 S PROBE PERC LUMBAR DISCECTOMY 04/2000 [facility] I reviewed the past medical history, [...] obstruction Imaging / Diagnostic Studies: CXR 03/2022 [facility] reviewed showing bilateral hazy opacities without pleural effusions consistent withpulmonary edema Echocardiogram with ejection fraction 60%, grade [...] and edited and updated as necessary. Jamilah Hampton PA-C documented in this encounterSt. Mary'[facility] [facility]09-12-2023 Miscellaneous Notes* Telephone Encounter - Seda Quiroz APRN.CNP - 01/15/2023 12:14 PM EDT Medication sent to [facility]. *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 completing clinical documentation, obtaining and/or reviewing separately obtained history, counseling and educating the patient/family/caregiver, ordering medications, maliha ts, or procedures, communicating with other HCPs (not separately reported), independently interpreting results (not separately reported), and communicating results to the patient/family/caregiver. ADD ON PSYCHOTHERAPY CODE : No SIGNATURE: Seda Quiroz APRN.CNP PATIENT NAME: Juan Eagle DATE: June 22, 2022 TIME: 8:31 AM PAGER : documented in this encounterSt. [facility]20[facility] History of Present illness Narrative* Joanna Arce APRN.CNP - 06/01/2022 10:46 AM EST CC: Patient presents with: Follow Up HPI Juan Fantasma Eagle is a 57 year old female [...] 01/14/2018 COLONOSCOPY AND BIOPSY 09/02/2017 Dr. ivet GOELD 01/23/2021 KNEE ARTHROSCOP MENISCUS REPAIR MED/LAT Left 06/22/2016 partial medial meniscectomy LUMBAR OR CAUDAL EPIDURAL INJECTION 01/2017 multiple since 2014. NEUROPLASTY &/TRANSPOS MEDIAN NRV CARPAL TUNNE Left 08/30/2009 [facility] PAST SURGICAL HISTORY OF 05/30/2019 C5-[address] Grace Long S PROBE PERC LUMBAR DISCECTOMY 04/2000 [facility] ALLERGIES Codeine, Seroquel [Quetiapine], Vraylar [Cariprazine], [...] Take 1 tablet by mouth once daily. (Patientnot taking: Reported on 06/01/2022) nitroglycerin sublingual (NITROQUICK) [...] mouth every 2 hours as needed. (Patient nottaking: Reported on 06/01/2022) zolpidem (AMBIEN) 10 mg [...] new psychiatrist. She is interested in seeing [facility] legal stenographer. - CONSULT TO PSYCHIATRY 2. Insomnia, unspecified type - ICD9: 780.52, ICD10: G47.00 See above. Increase Elavil to 50 mg at bedtime 3. Panic anxiety syndrome - ICD9: 300.01, ICD10: F41.0 See above. 4. Coronary artery disease involving yakutat coronary artery of yak[place]at heart without angina pectoris- ICD9: 414.01, ICD10: I25.10 Follow-up and medications [...] Patient agreeable to treatment plan. Joanna Arce APRN.DAYANARA documented in this encounterSt. Mary'[facility]12-[facility]-2022 Miscellaneous Notes* Telephone Encounter - Aga Silveira LPN - 04/12/2022 12:26 PM EST After appt 04/11/22 pcp is asking for med profile from [facility]. Called [facility]. They are not able to do this. Pt will need to come to their store and request this. Message left to pt with this info Called [employer]. Message left with same request. documented in this encounterSt. Mary'[facility]12-[facility]-20[facility] History of Present illness Narrative* Jericho Nieves MD - 04/11/2022 4:41 PM EST This note was created using NoteWriter. Subjective Transitional Care Management Progress Note The patients TCM visit was performed within the 7 days of discharge. Patient's Date of discharge: 04/06/2022 Date of initial coordinator contact after discharge: 04/09/2022 Discharge diagnosis: Acute OH. Cardiac arrest. Medication review completed Yes Jericho Nieves MD Provider Documentation: In follow-up of hospitalization, Juan Eagle is a 57 year old female with the chief complaint oftransition of care. I have reviewed the patient s last hospital course including diagnostic testing performed during this hospitalization, their discharge medications, and my assessment and plan with the patient and anyfamily members present at today s visit. Juan [...] (Bmi) of 50.0 to 59.9 in Adult ([facility]) Persistent Headaches S/P Cervical Spinal Fusion Tobacco Use Disorder Moderate Persistent Asthma Without Complication Psoriatic Arthritis (Hcc) Irritable Bowel Syndrome With Diarrhea Stage 3a Chronic Kidney Disease ([facility]) Coronary Artery Disease Involving Enterprise Coronary Artery of Enterprise Heart Without Angina Pectoris St Elevation Myocardial Infarction Involving Left Circumflex Coronary Artery ([facility]) Ventricular Fibrillation (Hcc) Ischemic Cardiomyopathy PAST SURGICAL [...] &/TRANSPOS MEDIAN NRV CARPAL TUNNE Left 08/30/2009 [facility] PAST SURGICAL HISTORY OF 05/30/2019 C5-[address] Grace Long S PROBE PERC LUMBAR DISCECTOMY 04/2000 [facility] Social History Tobacco Use Smoking status: [...] Patch as directed every 24 hours for 28days. No smoking with patch. nicotine polacrilex (NICORETTE) [...] I49.01 - In the setting of acute OH. 3. Coronary artery disease involving yakutat coronary artery of yakutat heart without angina pectoris- ICD9: 414.01, ICD10: I25.10 S/p PCI, YADIEL. [...] understanding and willingness to follow recommendations. Jericho Nieves MD documented in this encounterSt. Mary'[facility]12-[facility]-20[facility] History of Past illness Narrative* Problem Noted Date Resolved Date Ventricular fibrillation 04/11/2022 023 Helicobacter pylori gastritis 01/24/2021 BMI 45.0-49.9, adult 01/25/2020 03/20/2021 Cord compression 05/29/2019 12/02/2021 Intractable pain 05/28/2019 12/02/2021 Thumb tendonitis 01/20/2016 02/20/2017 Osteoarthritis of lumbar spine 12/05/2015 1 Pain in joint, multiple sites 05/26/2015 Depression 04/11/2015 08/10/2017 Low back pain 04/11/2015 02/20/2017 Gastroesophageal reflux disease without esophagi tis 04/11/2015 12/16/2019 documented as of this encounter (statuses as of 08/29/2022) [facility] History of Past illness Narrative* Problem Noted [...] of this encounter (statuses as of 11/12/2022) [facility] History of Past illness Narrative* Problem Noted [...] of this encounter (statuses as of 11/16/2022) [facility] History of Past illness Narrative* Problem Noted Date Diagnosed Date Resolved Date Ventricular fibrillation 04/11/2022 Helicobacter pylori gastritis 01/24/2021 12/02/2021 BMI 45.0-49.9, adult 01/25/202003/20/2 021 Cord compression 05/29/2019 12/02/2021 Intractable pain 05/28/2019 12/02/2021 Thumb tendonitis 01/20/2016 02/20/2017 Osteoarthritis of lumbar spine 12/05/2015 02/20/2017 Pain in joint, multiple sites 05/26/2015 11/30/2021 Depression 04/11/2015 08/10/2017 Low back pain 04/11/2015 02/20/2017 Gastroesophageal reflux dise ase without esophagitis 04/11/2015 12/16/2019 documented as of this encounter (statuses as of 12/05/2022) [facility] History of Past illness Narrative* Problem Noted [...] of this encounter (statuses as of 01/15/2023) [facility] History of Past illness Narrative* Problem Noted [...] of this encounter (statuses as of 01/15/2023) [facility] History of Past illness Narrative* Problem Noted [...] of this encounter (statuses as of 01/21/2023) [facility] History of Past illness Narrative* Problem Noted [...] of this encounter (statuses as of 02/09/2023) [facility] History of Past illness Narrative* Problem Noted Date Diagnosed Date Resolved Date Ventricular fibrillation 04/11/2022 Helicobacter pylori gastritis 01/24/2021 12/02/2021 BMI 45.0-49.9, adult 01/25/202003/20/2 021 Cord compression 05/29/2019 12/02/2021 Intractable pain 05/28/2019 12/02/2021 Thumb tendonitis 01/20/2016 02/20/2017 Osteoarthritis of lumbar spine 12/05/2015 02/20/2017 Pain in joint, multiple sites 05/26/2015 11/30/2021 Depression 04/11/2015 08/10/2017 Low back pain 04/11/2015 02/20/2017 Gastroesophageal reflux dise ase without esophagitis 04/11/2015 12/16/2019 documented as of this encounter (statuses as of 02/13/2023) [facility] History of Past illness Narrative* Problem Noted Date Diagnosed Date Resolved Date Ventricular fibrillation 04/11/2022 Helicobacter pylori gastritis 01/24/2021 12/02/2021 BMI 45.0-49.9, adult 01/25/2020 1115/2 021 Cord compression 05/29/2019 12/02/2021 Intractable pain 05/28/2019 12/02/2021 Thumb tendonitis 01/20/2016 02/20/2017 Osteoarthritis of lumbar spine 12/05/2015 02/20/2017 Pain in joint, multiple sites 05/26/2015 11/30/2021 Depression 04/11/2015 08/10/2017 Low back pain 04/11/2015 02/20/2017 Gastroesophageal reflux dise ase without esophagitis 04/11/2015 12/16/2019 documented as of this encounter (statuses as of 02/20/2023) [facility] of Past illness Narrative* Problem Noted [...] of this encounter (statuses as of 03/06/2023) [facility] of Past illness Narrative* Problem Noted [...] of this encounter (statuses as of 03/12/2023) [facility] of Past illness Narrative* Problem Noted [...] of this encounter (statuses as of 03/20/2023) [facility] History of Past illness Narrative* Problem Noted Date Diagnosed Date Resolved Date Ventricular fibrillation 04/11/2022 Helicobacter pylori gastritis 01/24/2021 12/02/2021 BMI 45.0-49.9, adult 01/25/20202 021 Cord compression 05/29/2019 12/02/2021 Intractable pain 05/28/2019 12/02/2021 Thumb tendonitis 01/20/2016 02/20/2017 Osteoarthritis of lumbar spine 12/05/2015 02/20/2017 Pain in joint, multiple sites 05/26/2015 11/30/2021 Depression 04/11/2015 08/10/2017 Low back pain 04/11/2015 02/20/2017 Gastroesophageal reflux dise ase without esophagitis 04/11/2015 12/16/2019 documented as of this encounter (statuses as of 04/08/2023) [facility] of Past illness Narrative* Problem Noted Date Diagnosed Date Resolved Date Ventricular fibrillation 04/11/2022 Helicobacter pylori gastritis 01/24/2021 12/02/2021 BMI 45.0-49.9, adult 01/25/2020 1115/2 021 Cord compression 05/29/2019 12/02/2021 Intractable pain 05/28/2019 12/02/2021 Thumb tendonitis 01/20/2016 02/20/2017 Osteoarthritis of lumbar spine 12/05/2015 02/20/2017 Pain in joint, multiple sites 05/26/2015 11/30/2021 Depression 04/11/2015 08/10/2017 Low back pain 04/11/2015 02/20/2017 Gastroesophageal reflux dise ase without esophagitis 04/11/2015 12/16/2019 documented as of this encounter (statuses as of 05/20/2023) [facility] of Past illness Narrative* Problem Noted [...] as of this encounter (statuses as of 06/08/2023) [facility] of Past illness Narrative* Problem Noted [...] as of this encounter (statuses as of 06/10/2023) [facility] of Past illness Narrative* Problem Noted [...] as of this encounter (statuses as of 06/11/2023) [facility] of Past illness Narrative* Problem Noted Date Diagnosed Date Resolved Date Ventricular fibrillation 04/11/2022 Helicobacter pylori gastritis 01/24/2021 12/02/2021 BMI 45.0-49.9, adult 01/25/202003/20/2 021 Cord compression 05/29/2019 12/02/2021 Intractable pain 05/28/2019 12/02/2021 Thumb tendonitis 01/20/2016 02/20/2017 Osteoarthritis of lumbar spine 12/05/2015 02/20/2017 Pain in joint, multiple sites 05/26/2015 11/30/2021 Depression 04/11/2015 08/10/2017 Low back pain 04/11/2015 02/20/2017 Gastroesophageal reflux dise ase without esophagitis 04/11/2015 12/16/2019 documented as of this encounter (statuses as of 06/12/2023) [facility] of Past illness Narrative* Problem Noted [...] as of this encounter (statuses as of 06/15/2023) [facility] History of Past illness Narrative* Problem Noted [...] as of this encounter (statuses as of 06/16/2023) [facility] History of Present illness Narrative* Brigette Fregoso LPN - 04/09/2022 3:16 PM EST TRANSITION CARE MANAGEMENT (TCM) INITIAL CONTACT Engineering Technology Instructor Outreach Provider Action/FYI: Apt has been scheduled Initial contact with patient post discharge, spoke to patient. Patient identified by name and . TRANSITION CARE MANAGEMENT INITIAL OUTREACH DOCUMENTATION: Date of Outreach: 04/09/2022 Outreach Attempt 1: Contact Made Date of Discharge 04/06/2022 Some recent data might be hidden SUMMARY: -Pt discharged from [facility] on 04/06/22. -Admitted for: heart attack Do you have a hospital follow up appointment with your PCP? Appointment on 04/11/[address] Nieves. No need to contact pt regarding apt. [...] home? Yes Medical records from recent hospitalization: [facility] has records if not received documented in this encounterSt. [facility] Hospital Discharge instructions Patient Education 03/08/2022 15:44:38 [...] leg Difficulty speaking, swallowing or walking Seizure [id number] [employer]. [address] [place] [address]. All rights reserved. This information is not intended as a substitute for professional medical care. Always follow yourhealthcare professional's instructions. Follow Up Care 03/08/2022 15:34:05 With:JERICHO NIEVES MD Address: [address] [place] [id number]- When:2-4 days [facility] 11-03-2022 Emergency department Discharge summary Discharge Instructions Thank you for allowing [facility] to assist you with your healthcare needs. The following is importantdischarge information regarding your hospital visit. Diagnosis from Today's Visit Shingles Rash What to Do Next Instructions from Your Care Team No qualifying data available. Post Acute Orders No qualifying data available. You Need to Schedule the Following Appointments Follow Up with JERICHO NIEVES MD When Within 2-4 days Where: [address] [place] [id number]- Allergies Dilaudid Percocet 5/325 SEROquel codeine traMADol [...] Duration: 7 Days Printed Prescription Changed acetaminophen-hydrocodone ([place] 325- 5 mg oral tablet) 1 tab(s) by mouth Two (2) times a day Changed acetaminophen-hydrocodone ([place] 325- 5 mg oral tablet) 1 tab(s) [...] leg Difficulty speaking, swallowing or walking Seizure [id number] [employer]. [address] [place] [address]. All rights reserved. This information is not intended as a substitute for professional medical care. Always follow yourhealthcare professional's instructions. Additional Information VACCINATE! IT SAVES LIVES! Members of the community who have not yet received the COVID-19 vaccine and would like to receive it can visit one of [facility] vaccine clinics. There are many vaccine clinic locations within the [facility]. For locations and available times, please visit [email or web address]. It is important to note that some COVID mobile vaccine clinics are held outdoors and may be canceled in rainy orstormy conditions. To learn more about pediatric vaccinations (ages 5-11), we invite you to visit the [facility] webpage. [email or web address] learn more about the COVID-19 vaccine, we invite you to visit the [employer] website for a list of frequently asked questions. [email or web address] [facility] Access Instructions: Stay connected with your healthcare team and access your personal medical information anytime with the [employer] Patient Portal. If you would like a full copy of your medical records please contact the [facility] Medical Records Department Saturday through Saturday between 8a.m. and 4:30p.m. Please follow the directions below to access the portal: 1.Access the email account you provided upon registration to the [facility].2.Look for an invitation email from [facility].3.Open the email and access the invitation link: Accept [facility] to [facility].Fill in the required alamo to create your account. Sign into [email or web address] with your username and password that you [...] you will allow to register on the [facility] for access to your information. You can also access the [employer] Patient Portal on the [employer] dasha. Simply click on Health Records under [employer] and then click on the [employer] logo. HOW TO SAFELY DISPOSE OF PRESCRIPTION [...] Call your local pharmacy or go to http://bit.ly/[email or web address] to find one close to you.3.Make use of household items: Use cat litter or old coffee grounds to dispose medications if other options arenot available. Mix your drugs with these household products, seal them in an airtight container andthrow it into the garbage. Call [facility]: [phone] to be sure your drugs can be [...] and explained to me and I,JUAN EAGLE M understand my current condition and have read and understand these discharge instructions. I have received a written copy of the plan/instructions. If I have questions, I am aware that I should contact my doctor. 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[employer] Signature: Date/Time: Relationship to Patient: Witness Name/Signature: Date/Time: [facility]10-27-2022 History of Present illness Narrative * Jericho Nieves MD - 03/01/2022 10:53 AM EDT This [...] (Bmi) of 50.0 to 59.9 in Adult ([facility]) Persistent Headaches S/P Cervical Spinal Fusion Tobacco Use Disorder Moderate Persistent Asthma Without Complication Psoriatic Arthritis (Hcc) Irritable Bowel Syndrome With Diarrhea Stage 3b Chronic Kidney Disease ([facility]) Current Outpatient Medications Medication Sig fluticasone-vilanterol (BREO [...] Behavioral intervention and - Pharmacological intervention Jericho Nieves MD [facility]* Diagnosis Type 2 diabetes mellitus with stage 3a chronic kidney disease, without long-term current use of insulin (HCC)- Primary Stage 3a chronic kidney disease (HCC) Tremor Abnormal involuntary movements Persistent headaches Headache Tobacco use disorder Class 3 severe obesity with serious comorbidity and body mass index (BMI) of 50.0 to 59.9 in adult, unspecified obesity type (HCC) documented in this encounter [facility] Miscellaneous Notes* Telephone Encounter - Jericho Nieves MD - 02/23/2022 1:08 PM EDT documented in this encounterSt[facility] Nurse Note* Peggy Diaz LPN - 01/18/2022 1:01 PM EDT Intake information documented in the prior visit with FLASH Caceres today. documented in this encounterSt. [facility] Procedure note* FLASH Caceres - 01/18/2022 12:58 [...] 2022 TIME: 12:58 PM documented in this encounterSt. [facility] History of Present illness Narrative* FLASH Caceres - 01/18/2022 12:45 PM EDT PULM FUNCTION SMARTBLOCK: Provider: Jamilah Hampton PA-C Assisting Tech: FLASH Caceres Spirometry: 1 Exhaled Nitric Oxide: 1 documented in this encounterSt. [facility] History of Present illness Narrative* Jamilah Hampton PA-C - 01/18/2022 12:[address] [facility] [place], 01/18/2022: Name: Juan Eagle : 1965 The [...] FEF75 (L/sec) 0.69 0.28 1.54 0.92 133 XMY15-23 (L/sec) 2.32 1.24 3.74 2.57 110 PEF [...] understanding and acceptance of my answers. Jamilah Hampton PA-C documented in this encounterSt. [facility] Miscellaneous Notes* Telephone Encounter - Gricelda Duckworth LPN - 12/04/2021 5:02 PM EDT Below left referral on identified vm. Faxed referral to [facility] scheduling. Gricelda Duckworth LPN * Telephone Encounter - Jericho Nieves MD - 12/04/2021 4:37 PM EDT ASSESSMENT/PLAN: 1. Stage 3b chronic kidney disease (HCC) - ICD9: 585.3, ICD10: N18.32 (primary diagnosis) - CONSULT TO NON-[facility] FACILITY 2. Type 2 diabetes mellitus without complication, without long-term current use of insulin (HCC) - ICD9: 250.00, ICD10: E11.9 - CONSULT TO NON-[facility] FACILITY Jericho Nieves MD * Telephone Encounter - Gabriela Flores LPN - 12/04/2021 9:19 AM EDT Patient is calling asking for a referral to [facility] dietitian. She is wanting directions on what to eatand not to eat with the dx of 3rd stage renal failure. documented in this encounterSt. [facility] Miscellaneous Notes* Telephone Encounter - Brigette Linares - 07/21/2021 11:21 AM EDT Patient electronically requesting refills as follows: Pending Prescriptions Disp Refills LANSOPRAZOLE 30 MG CAPSULE,DELAYED RELEASE 90 capsule 3 Sig: Take 1 capsule by mouth once daily. AURY: No Please review and advise. Brigette Linares documented in this encounterSt. [facility] History of Past illness Narrative* Problem Noted [...] of this encounter (statuses as of 12/04/2021) [facility] History of Past illness Narrative* Problem Noted [...] of this encounter (statuses as of 12/04/2021) [facility] History of Past illness Narrative* Problem Noted [...] of this encounter (statuses as of 01/18/2022) [facility] History of Past illness Narrative* Problem Noted [...] of this encounter (statuses as of 01/18/2022) [facility] History of Past illness Narrative* Problem Noted [...] of this encounter (statuses as of 02/23/2022) [facility] History of Past illness Narrative* Problem Noted [...] of this encounter (statuses as of 03/01/2022) [facility] History of Past illness Narrative* Problem Noted [...] of this encounter (statuses as of 04/12/2022) [facility] History of Past illness Narrative* Problem Noted [...] of this encounter (statuses as of 04/12/2022) [facility] History of Past illness Narrative* Problem Noted [...] of this encounter (statuses as of 04/13/2022) [facility] History of Past illness Narrative* Problem Noted [...] of this encounter (statuses as of 06/01/2022) [facility] History of Past illness Narrative* Problem Noted [...] of this encounter (statuses as of 06/22/2022) [facility] History of Past illness Narrative* Problem Noted [...] of this encounter (statuses as of 06/28/2022) [facility] History of Past illness Narrative* Problem Noted [...] of this encounter (statuses as of 07/01/2022) [facility] History of Past illness Narrative* Problem Noted [...] of this encounter (statuses as of 07/01/2022) [facility] of Past illness Narrative* Problem Noted [...] of this encounter (statuses as of 07/19/2022) [facility] History of Past illness Narrative* Problem Noted [...] of this encounter (statuses as of 07/20/2022) [facility] of Past illness Narrative* Problem Noted [...] of this encounter (statuses as of 08/23/2022) [facility] History of Past illness Narrative* Problem Noted Date Resolved Date BMI 45.0-49.9, adult 01/25/2020 03/20/2021 Thumb tendonitis 01/20/2016 02/20/2017 Osteoarthritis of lumbar spine 12/05/2015 1 Depression 04/11/2015 08/10/2017 Low back pain 04/11/2015 02/20/2017 Gastroesophageal reflux disease without esophagi tis 04/11/2015 12/16/2019 documented as of this encounter (statuses as of 07/24/2021) [facility] History of Past illness Narrative* Problem Noted Date Resolved Date BMI 45.0-49.9, adult 01/25/2020 03/20/2021 Thumb tendonitis 01/20/2016 02/20/2017 Osteoarthritis of lumbar spine 12/05/2015 1 Depression 04/11/2015 08/10/2017 Low back pain 04/11/2015 02/20/2017 Gastroesophageal reflux disease without esophagi tis 04/11/2015 12/16/2019 documented as of this encounter (statuses as of 09/01/2021) [facility] No data available for this section [facility] Evaluation note* Diagnosis Gastroesophageal reflux disease without esophagitis Esophageal reflux documented in this encounter [facility] note* Diagnosis Type 2 diabetes mellitus without complication (HCC) Type II or unspecified type diabetes mellitus without mention of complication, not stated as uncontrolled documented in this encounter [facility] note* Diagnosis Stage 3b chronic kidney disease (HCC)- Primary documented in this encounter [facility] note* Diagnosis Stage 3b chronic kidney disease (HCC)- Primary Type 2 diabetes mellitus without complication, without long-term current use of insulin ([facility]) documented [facility] this encounter [facility]* Diagnosis Moderate persistent asthma without complication Unspecified asthma [facility]* Diagnosis Moderate persistent asthma without complication Unspecified asthma [facility]* Diagnosis Moderate persistent asthma without complication- Primary Unspecified asthma Gastroesophageal reflux disease without esophagitis Esophageal reflux Tobacco use disorder JOSE (obstructive sleep apnea) Obstructive sleep apnea (adult) (pediatric) [facility]* Diagnosis Stage 3b chronic kidney disease (HCC)- Primary Panic anxiety syndrome Panic disorder without agoraphobia [facility]* Diagnosis ST elevation myocardial infarction involving left circumflex coronary artery ([facility])- Primary Acute myocardial infarction of other specified sites, initial episode of care Ventricular fibrillation ([facility]) Ventricular fibrillation Coronary artery disease involving y[place] coronary artery of [place] heart without angina pectoris Ischemic cardiomyopathy Other specified forms of chronic ischemic heart disease Mixed hyperlipidemia Type 2 diabetes mellitus with stage 3a chronic kidney disease, without long-term current use of insulin ([facility]) Tobacco use disorder [facility]* Diagnosis Bipolar affective disorder, remission status unspecified ([facility])- Primary Insomnia, unspecified type Panic anxiety syndrome Panic disorder without agoraphobia Coronary artery disease involving y[place]at coronary artery of [place] heart without angina pectoris Persistent headaches Headache Type 2 diabetes mellitus with stage 3a chronic kidney disease, without long-term current use of insulin ([facility]) Morbid obesity with BMI of 45.0-49.9, adult ([facility]) Morbid obesity Psoriatic arthritis ([facility]) Psoriatic arthropathy [facility]* Diagnosis Persistent headaches Headache Gastroesophageal reflux disease without esophagitis Esophageal reflux documented in this encounter [facility] note* Diagnosis Encounter for long-term (current) use of medications- Primary Encounter for long-term (current) use of other medications Bipolar affective disorder, remission status unspecified ([facility]) PTSD (post-traumatic stress disorder) Posttraumatic stress disorder Panic disorder with agoraphobia Agoraphobia with panic disorder Dyskinesia, tardive Subacute dyskinesia due to drugs documented in this encounter [facility] note* Diagnosis SOB (shortness of breath)- Primary Shortness of breath Mild intermittent asthma without complication Unspecified asthma Morbid obesity (HCC) Morbid obesity Cigarette smoker Tobacco use disorder [facility]* Diagnosis SOB (shortness of breath) Shortness of breath documented [facility] this [facility]* Diagnosis PTSD (post-traumatic stress disorder)- Primary Posttraumatic stress disorder Panic disorder with agoraphobia Agoraphobia with panic disorder Dyskinesia, tardive Subacute dyskinesia due to drugs Bipolar affective disorder, currently depressed, moderate (HCC) Bipolar I disorder, most recent episode (or current) depressed, moderate documented [facility]* Diagnosis Encounter for screening mammogram for breast cancer documented [facility] this [facility]* Diagnosis Diabetic mononeuropathy associated with diabetes mellitus due to underlying condition ([facility])- Primary Callus of foot Corns and callosities Ingrowing toenail Ingrowing nail Onychomycosis Dermatophytosis of nail Pain in toe of left foot Pain in limb Pain in toe of right foot Pain in limb Diminished pulses in lower extremity Other symptoms involving cardiovascular system documented [facility] this [facility]* Diagnosis Bipolar affective disorder, currently depressed, moderate (HCC)- Primary Bipolar I disorder, most recent episode (or current) depressed, moderate Dyskinesia, tardive Subacute dyskinesia due to drugs Panic disorder with agoraphobia Agoraphobia with panic disorder PTSD (post-traumatic stress disorder) Posttraumatic stress disorder [facility]* Diagnosis Moderate persistent asthma without complication- Primary Unspecified asthma Morbid obesity (HCC) Morbid obesity Gastroesophageal reflux disease without esophagitis Esophageal reflux Cigarette smoker Tobacco use disorder documented [facility] this [facility]* Diagnosis Panic disorder with agoraphobia Agoraphobia with panic disorder Dyskinesia, tardive Subacute dyskinesia due to drugs [facility]* Diagnosis Wrist pain, right- Primary Pain in joint, forearm Psoriatic arthritis (HCC) Psoriatic arthropathy Type 2 diabetes mellitus with stage 3a chronic kidney disease, without long-term current use of insulin (HCC) documented [facility]* Diagnosis Persistent headaches Headache [facility]* Diagnosis Dyskinesia, tardive- Primary Subacute dyskinesia due to drugs Bipolar affective disorder, currently depressed, moderate (HCC) Bipolar I disorder, most recent episode (or current) depressed, moderate Panic disorder with agoraphobia Agoraphobia with panic disorder PTSD (post-traumatic stress disorder) Posttraumatic stress disorder documented in this encounter [facility] note* Diagnosis Bipolar affective disorder, currently depressed, moderate (HCC)- Primary Bipolar I disorder, most recent episode (or current) depressed, moderate Dyskinesia, tardive Subacute dyskinesia due to drugs Panic disorder with agoraphobia Agoraphobia with panic disorder PTSD (post-traumatic stress disorder) Posttraumatic stress disorder documented in this encounter [facility] note* Diagnosis Pneumonia due to COVID-19 virus- Primary Moderate persistent asthma with acute exacerbation Acute hypoxemic respiratory failure (HCC) Acute kidney injury (HCC) Acute kidney failure, unspecified Coronary artery disease involving y[place]utat coronary artery of [place] heart without angina pectoris Type 2 diabetes mellitus with stage 3a chronic kidney disease, with long-term current use of insulin (HCC) Anemia, unspecified type documented in this encounter [facility] Discharge instructions No data available for this section [facility] Progress note No data available for this section [facility] Reason for referral (narrative)* Outpatient Procedure (Routine) - Pending Review Specialty Diagnoses / Procedures Referred By Patrick mchugh Referred To Contact [facility] Diagnoses Encounter for long-term (current) use of medications Procedures ECG COMPLETE ECG ROUTINE ECG W/LEAST 12 LDS W/I&R Seda Quiroz APRN.CNP [address] [place] [address] [facility] [address] [address] Referral ID Status Reason Start Date Expiration Date Visits Requested Visits Authorized [id number] Pending Review Auto-Generat ed Referral 06/22/2022 06/22/2023 [address] [facility] for referral (narrative)* Outpatient Procedure (Routine) - Authorized Specialty Diagnoses / Procedures Referred By Patrick mchugh Referred To Contact [facility] Diagnoses SOB (shortness of breath) Procedures SPIROMETRY BASELINE ONLY SPMTRY W/VC EXPIRATORY JEWEL W/WO MXML VOL VNTJ Talia Tineo MD [address] [place] [address] [facility] [place] [address] [place] [address] Referral ID Status Reason Start Date Expiration Date Visits Requested Visits Authorized [id number] Authorized Auto-Generat ed Referral 07/19/2022 08/18/2023 1 1 [facility] for referral (narrative)* Diagnostic Procedure Only (Routine) - Pending Review Specialty Diagnoses / Procedures Referred By Bryonac t Referred To Contact [facility] Diagnoses Encounter for screening mammogram for breast cancer Procedures JEANNETTE SCREENING SCREENING MAMMOGRAPHY BI 2-VIEW BREAST INC CAD Jericho Nieves MD [address] [place] [address] [facility] [address] [place] [id number] Referral ID Status Reason Start Date Expiration Date Visits Requested Visits Authorized [id number] Pending Review Auto-Generat ed Referral 11/07/2022 12/07/2023 1 1 T [facility] for referral (narrative)* Outpatient Procedure (Routine) - Authorized Specialty Diagnoses / Procedures Referred By Patrick mchugh Referred To Contact [facility] Diagnoses Ingrowing toenail Procedures PVR ANK PRESS [facility] NON-INVAS PHYSIOLOGIC STD EXTREMITY ART 2 LEVEL [employer] [address] [place] [address] [facility] [place] [address] [place] [address] Referral ID Status Reason Start Date Expiration Date Visits Requested Visits Authorized [id number] Authorized Auto-Generat ed Referral 12/04/2022 12/04/[address] 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 Advance Directive(s) 05/29/2019 12:50 PM Advance Directive(s) 04/16/2016 1:49 PM Advance Directive(s) 01/16/2016 9:20 AM Advance Directive(s) 12/19/2015 7:24 AM Reason for Referral Specialty Diagnoses / Procedures Referred By Contac t Referred To Contact Rheumatology Diagnoses Psoriatic arthritis (HCC) Procedures CONSULT TO RHEUM/IMMUN DISEASE Jericho Nieves MD [address] [place] [address] Referral ID Status Reason Start Date Expiration Date Visits Requested Visits Authorized [id number] Ref Not Required PCP Requested Referral 03/06/2023 03/05/2024 1 1 Specialty Diagnoses / Procedures Referred By Contac t Referred To Contact Diagnoses Bipolar affective disorder, remission status unspecified (HCC) Procedures CONSULT TO PSYCHIATRY OFFICE/OUTPATIENT NEW HIGH MDM 60-74 MINUTES [facility], [facility] [address] [place] [address] Referral ID Status Reason Start Date Expiration Date Visits Requested Visits Authorized [id number] Pending Review PCP Requested Referral 06/01/2022 06/01/2023 1 1 Additional Source Comments INFORMATION SOURCE (unrecogn ized section and content) DATE CREATED AUTHOR AUTHOR'S ORGANIZ ATION 06/19/2020 [facility] DATE CREATED AUTHOR AUTHOR'S ORGANIZ ATION 05/17/2022 [facility] DATE CREATED AUTHOR AUTHOR'S ORGANIZ ATION 06/15/2023 [facility] Source Comments (unrecognize d section and content) In the event this informatio n is protected by the Federal Confidentiality of Alcohol and Drug Abuse Patient Records regulations: The Federal rules restrict any use of the information to criminally investigate or prosecute any alcohol or drug abuse patient.[facility] the event this information is protected by the Federal Confidentiality of Alcohol and Drug Abuse Patient Records regulations: The Federal rules restrict any use of the information to criminally investigate or prosecute any alcohol or drug abuse patient.[facility] the event this information is protected by the Federal Confidentiality of Alcohol and Drug Abuse Patient Records regulations: The Federal rules restrict any use of the information to criminally investigate or prosecute any alcohol or drug abuse patient.[facility] the event this information is protected by the Federal Confidentiality of Alcohol and Drug Abuse Patient Records regulations: The Federal rules restrict any use of the information to criminally investigate or prosecute any alcohol or drug abuse patient.[facility] the event this information is protected by the Federal Confidentiality of Alcohol and Drug Abuse Patient Records regulations: The Federal rules restrict any use of the information to criminally investigate or prosecute any alcohol or drug abuse patient.[facility] the event this information is protected by the Federal Confidentiality of Alcohol and Drug Abuse Patient Records regulations: The Federal rules restrict any use of the information to criminally investigate or prosecute any alcohol or drug abuse patient.[facility] the event this information is protected by the Federal Confidentiality of Alcohol and Drug Abuse Patient Records regulations: The Federal rules restrict any use of the information to criminally investigate or prosecute any alcohol or drug abuse patient.[facility] the event this information is protected by the Federal Confidentiality of Alcohol and Drug Abuse Patient Records regulations: The Federal rules restrict any use of the information to criminally investigate or prosecute any alcohol or drug abuse patient.[facility] the event this information is protected by the Federal Confidentiality of Alcohol and Drug Abuse Patient Records regulations: The Federal rules restrict any use of the information to criminally investigate or prosecute any alcohol or drug abuse patient.[facility] CampusIn the event this information is protected by the Federal Confidentiality of Alcohol and Drug Abuse Patient Records regulations: The Federal rules restrict any use of the information to criminally investigate or prosecute any alcohol or drug abuse patient.[facility] CampusIn the event this information is protected by the Federal Confidentiality of Alcohol and Drug Abuse Patient Records regulations: The Federal rules restrict any use of the information to criminally investigate or prosecute any alcohol or drug abuse patient.[facility] CampusIn the event this information is protected by the Federal Confidentiality of Alcohol and Drug Abuse Patient Records regulations: The Federal rules restrict any use of the information to criminally investigate or prosecute any alcohol or drug abuse patient.[facility] CampusIn the event this information is protected by the Federal Confidentiality of Alcohol and Drug Abuse Patient Records regulations: The Federal rules restrict any use of the information to criminally investigate or prosecute any alcohol or drug abuse patient.[facility] [place] CampusIn the event this information is protected by the Federal Confidentiality of Alcohol and Drug Abuse Patient Records regulations: The Federal rules restrict any use of the information to criminally investigate or prosecute any alcohol or drug abuse patient.[facility] [place] CampusIn the event this information is protected by the Federal Confidentiality of Alcohol and Drug Abuse Patient Records regulations: The Federal rules restrict any use of the information to criminally investigate or prosecute any alcohol or drug abuse patient.[facility] [place] CampusIn the event this information is protected by the Federal Confidentiality of Alcohol and Drug Abuse Patient Records regulations: The Federal rules restrict any use of the information to criminally investigate or prosecute any alcohol or drug abuse patient.[facility] [place] CampusIn the event this information is protected by the Federal Confidentiality of Alcohol and Drug Abuse Patient Records regulations: The Federal rules restrict any use of the information to criminally investigate or prosecute any alcohol or drug abuse patient.[facility] [place] CampusIn the event this information is protected by the Federal Confidentiality of Alcohol and Drug Abuse Patient Records regulations: The Federal rules restrict any use of the information to criminally investigate or prosecute any alcohol or drug abuse patient.[facility] [place] CampusIn the event this information is protected by the Federal Confidentiality of Alcohol and Drug Abuse Patient Records regulations: The Federal rules restrict any use of the information to criminally investigate or prosecute any alcohol or drug abuse patient.[facility] [place] CampusIn the event this information is protected by the Federal Confidentiality of Alcohol and Drug Abuse Patient Records regulations: The Federal rules restrict any use of the information to criminally investigate or prosecute any alcohol or drug abuse patient.[facility] [place] CampusIn the event this information is protected by the Federal Confidentiality of Alcohol and Drug Abuse Patient Records regulations: The Federal rules restrict any use of the information to criminally investigate or prosecute any alcohol or drug abuse patient.[facility] [place] CampusIn the event this information is protected by the Federal Confidentiality of Alcohol and Drug Abuse Patient Records regulations: The Federal rules restrict any use of the information to criminally investigate or prosecute any alcohol or drug abuse patient.[facility] [place] CampusIn the event this information is protected by the Federal Confidentiality of Alcohol and Drug Abuse Patient Records regulations: The Federal rules restrict any use of the information to criminally investigate or prosecute any alcohol or drug abuse patient.[facility] [place] CampusIn the event this information is protected by the Federal Confidentiality of Alcohol and Drug Abuse Patient Records regulations: The Federal rules restrict any use of the information to criminally investigate or prosecute any alcohol or drug abuse patient.[facility] [place] CampusIn the event this information is protected by the Federal Confidentiality of Alcohol and Drug Abuse Patient Records regulations: The Federal rules restrict any use of the information to criminally investigate or prosecute any alcohol or drug abuse patient.[facility] [place] CampusIn the event this information is protected by the Federal Confidentiality of Alcohol and Drug Abuse Patient Records regulations: The Federal rules restrict any use of the information to criminally investigate or prosecute any alcohol or drug abuse patient.[facility] [place] CampusIn the event this information is protected by the Federal Confidentiality of Alcohol and Drug Abuse Patient Records regulations: The Federal rules restrict any use of the information to criminally investigate or prosecute any alcohol or drug abuse patient.[facility] [place] CampusIn the event this information is protected by the Federal Confidentiality of Alcohol and Drug Abuse Patient Records regulations: The Federal rules restrict any use of the information to criminally investigate or prosecute any alcohol or drug abuse patient.[facility] [place] CampusIn the event this information is protected by the Federal Confidentiality of Alcohol and Drug Abuse Patient Records regulations: The Federal rules restrict any use of the information to criminally investigate or prosecute any alcohol or drug abuse patient.[facility] [place] CampusIn the event this information is protected by the Federal Confidentiality of Alcohol and Drug Abuse Patient Records regulations: The Federal rules restrict any use of the information to criminally investigate or prosecute any alcohol or drug abuse patient.[facility] [place] CampusIn the event this information is protected by the Federal Confidentiality of Alcohol and Drug Abuse Patient Records regulations: The Federal rules restrict any use of the information to criminally investigate or prosecute any alcohol or drug abuse patient.[facility] [place] CampusIn the event this information is protected by the Federal Confidentiality of Alcohol and Drug Abuse Patient Records regulations: The Federal rules restrict any use of the information to criminally investigate or prosecute any alcohol or drug abuse patient.[facility] [place] CampusIn the event this information is protected by the Federal Confidentiality of Alcohol and Drug Abuse Patient Records regulations: The Federal rules restrict any use of the information to criminally investigate or prosecute any alcohol or drug abuse patient.[facility] [place] CampusIn the event this information is protected by the Federal Confidentiality of Alcohol and Drug Abuse Patient Records regulations: The Federal rules restrict any use of the information to criminally investigate or prosecute any alcohol or drug abuse patient.[facility] [place] CampusIn the event this information is protected by the Federal Confidentiality of Alcohol and Drug Abuse Patient Records regulations: The Federal rules restrict any use of the information to criminally investigate or prosecute any alcohol or drug abuse patient.[facility] [place] CampusIn the event this information is protected by the Federal Confidentiality of Alcohol and Drug Abuse Patient Records regulations: The Federal rules restrict any use of the information to criminally investigate or prosecute any alcohol or drug abuse patient.[facility] [place] CampusIn the event this information is protected by the Federal Confidentiality of Alcohol and Drug Abuse Patient Records regulations: The Federal rules restrict any use of the information to criminally investigate or prosecute any alcohol or drug abuse patient.[facility] [place] CampusIn the event this information is protected by the Federal Confidentiality of Alcohol and Drug Abuse Patient Records regulations: The Federal rules restrict any use of the information to criminally investigate or prosecute any alcohol or drug abuse patient.[facility] [place] CampusIn the event this information is protected by the Federal Confidentiality of Alcohol and Drug Abuse Patient Records regulations: The Federal rules restrict any use of the information to criminally investigate or prosecute any alcohol or drug abuse patient.[facility] [place] CampusIn the event this information is protected by the Federal Confidentiality of Alcohol and Drug Abuse Patient Records regulations: The Federal rules restrict any use of the information to criminally investigate or prosecute any alcohol or drug abuse patient.[facility] [place] CampusIn the event this information is protected by the Federal Confidentiality of Alcohol and Drug Abuse Patient Records regulations: The Federal rules restrict any use of the information to criminally investigate or prosecute any alcohol or drug abuse patient.[facility] [place] [facility] Reason for Visit (unrecogniz ed section and content) Reason Comments Referral Request Reason Comments Spirometry Specialty Diagnoses / Procedures Referred By Contac t Referred To [facility] Diagnoses Moderate persistent asthma without complication Procedures SPIROMETRY BASELINE ONLY SPMTRY W/VC EXPIRATORY JEWEL W/WO MXML VOL VNTJ Jamilah Hampton PA-C [address] [place] [address] [address] Referral ID Status Reason Start Date Expiration Date V isits Requested Visits Authorized [id number] Closed Auto-Generate d Referral 07/17/2021 08/16/2022 1 1 Specialty Diagnoses / Procedures Referred By Contac t Referred To [facility] Diagnoses Moderate persistent asthma without complication Procedures NITRIC OXIDE, EXHALED NITRIC OXIDE GAS DETERMINATION Jamilah Hampton PA-C [address] [place] [address] [address] Referral ID Status Reason Start Date Expiration Date V isits Requested Visits Authorized [id number] Closed Auto-Generate d Referral 07/17/2021 08/16/2022 1 1 Reason Comments Established Patient 6 month follow up as thma Reason Comments Recheck Reason Comments Patient Update Reason Onset Date Comments Transition Of Care 04/09/2022 Reason Comments Hospital F/U [facility] Reason Comments Follow Up Reason Comments Patient Question Reason Comments Medication Problem Breo Reason Onset Date Comments Refill Request 06/28/2022 Reason Comments New Patient Evaluation Specialty Diagnoses / Procedures Referred By Contac t Referred To Contact Diagnoses Bipolar affective disorder, remission status unspecified (HCC) Procedures CONSULT TO PSYCHIATRY OFFICE/OUTPATIENT NEW HIGH MDM 60-74 MINUTES Claude, Joanna, CASHIER OR CHECKER STOCK CLERK.COMPUTER ANALYST [address] [place] [address] Referral ID Status Reason Start Date Expiration Date Visits Requested Visits Authorized [id number] Pending Review PCP Requested Referral 06/01/2022 06/01/2023 1 1 Reason Comments Established Patient 6 month follow up Asthma Specialty Diagnoses / Procedures Referred By Contac t Referred To [facility] Diagnoses SOB (shortness of breath) Procedures SPIROMETRY BASELINE ONLY SPMTRY W/VC EXPIRATORY JEWEL W/WO MXML VOL VNTJ Talia Tineo MD [address] [place] [address] Respiratory [place] [address] [place] [address] Referral ID Status Reason Start Date Expiration Date V isits Requested Visits Authorized [id number] Closed Auto-Generate d Referral 07/19/2022 08/18/2023 1 1 Reason Comments Follow Up Specialty Diagnoses / Procedures Referred By Contac t Referred To Contact Psychiatry / ADULT PSYCHIATRY Diagnoses Follow up Procedures VIDEO PSYC/PSYL EST Joanna Arce, CASHIER OR CHECKER STOCK CLERK.COMPUTER ANALYST [address] [place] [address] Seda Quiroz, CASHIER OR CHECKER STOCK CLERK.COMPUTER ANALYST [address] [place] [address] Referral ID Status Reason Start Date Expiration Date V isits Requested Visits Authorized [id number] Pending Review 08/23/2022 05/05/2023 30 30 Reason Comments Results Reason Comments Letter Reason Comments Established Patient Diabetic Foot Care Reason Comments Refill Request Reason Comments Express Care follow-up Reason Onset Date Comments Refill Request 03/09/2023 Specialty Diagnoses / Procedures Referred By Patrick mchugh Referred To Contact Psychiatry / ADULT PSYCHIATRY Diagnoses FOLLOW UP Procedures EST PSYC ADULT Jericho Nieves MD [address] [place] [address] Seda Quiroz, CASHIER OR CHECKER STOCK CLERK.COMPUTER ANALYST [address] [place] [address] Referral ID Status Reason Start Date Expiration Date V isits Requested Visits Authorized [id number] Pending Review 04/02/2023 07/01/2023 1 1 Reason Comments Appointment Reason Comments [facility] SN POC Reason Comments [facility] OT Update Reason Comments Patient Update Appointment Reason Comments Social Work Verbal Order Reason Comments ER F/U [facility] 06/06/23; Pneumoni a d/t COVID-19, acute exacerbation of COPD with asthma & acute hypoxemic respiratory failure Care Teams (unrecognized sec tion and content) Video Editor Relationship Specialty Start Date End Date Jericho Nieves MD [address] [place] [address] PCP - General Internal Medicine 05/26/15 Video Editor Relationship Specialty Start Date End Date Jericho Nieves MD [address] [place] [address] PCP - General Internal Medicine 05/26/15 Video Editor Relationship Specialty Start Date End Date Jericho Nieves MD [address] [place] [address] PCP - General Internal Medicine 05/26/15 Video Editor Relationship Specialty Start Date End Date Jericho Nieves MD [address] [place] [address] PCP - General Internal Medicine 05/26/15 Video Editor Relationship Specialty Start Date End Date Jericho Nieves MD [address] [place] [address] PCP - General Internal Medicine 05/26/15 Video Editor Relationship Specialty Start Date End Date Jericho Nieves MD [address] [place] [address] PCP - General Internal Medicine 05/26/15 Video Editor Relationship Specialty Start Date End Date Jericho Nieves MD [address] [place] [address] PCP - General Internal Medicine 05/26/15 Video Editor Relationship Specialty Start Date End Date Jericho Nieves MD [facility] [place] [address] PCP - General Internal Medicine 05/26/15 Video Editor Relationship Specialty Start Date End Date Jericho Nieves MD [facility] [place] [address] PCP - General Internal Medicine 05/26/15 Video Editor Relationship Specialty Start Date End Date Jericho Nieves MD [facility] [place] [address] PCP - General Internal Medicine 05/26/15 Video Editor Relationship Specialty Start Date End Date Jericho Nieves MD [facility] [place] [address] PCP - General Internal Medicine 05/26/15 Video Editor Relationship Specialty Start Date End Date Jericho Nieves MD [facility] [place] [address] PCP - General Internal Medicine 05/26/15 Video Editor Relationship Specialty Start Date End Date Jericho Nieves MD [facility] [place] [address] PCP - General Internal Medicine 05/26/15 Video Editor Relationship Specialty Start Date End Date Jericho Nieves MD [address] [place] [address] PCP - General Internal Medicine 05/26/15 Video Editor Relationship Specialty Start Date End Date Jericho Nieves MD [address] [place] [address] PCP - General Internal Medicine 05/26/15 Video Editor Relationship Specialty Start Date End Date Jericho Nieves MD [address] [place] [address] PCP - General Internal Medicine 05/26/15 Video Editor Relationship Specialty Start Date End Date Jericho Nieves MD [address] [place] [address] PCP - General Internal Medicine 05/26/15 Video Editor Relationship Specialty Start Date End Date Jericho Nieves MD [address] [place] [address] PCP - General Internal Medicine 05/26/15 Video Editor Relationship Specialty Start Date End Date Jericho Nieves MD [address] [place] [address] PCP - General Internal Medicine 05/26/15 Video Editor Relationship Specialty Start Date End Date Jericho Nieves MD [address] [place] [address] PCP - General Internal Medicine 05/26/15 Video Editor Relationship Specialty Start Date End Date Jericho Nieves MD [address] [place] [address] PCP - General Internal Medicine 05/26/15 Video Editor Relationship Specialty Start Date End Date Jericho Nieves MD [address] [place] [address] PCP - General Internal Medicine 05/26/15 Video Editor Relationship Specialty Start Date End Date Jericho Nieves MD [address] [place] [address] PCP - General Internal Medicine 05/26/15 Video Editor Relationship Specialty Start Date End Date Jericho Nieves MD [address] [place] [address] PCP - General Internal Medicine 05/26/15 Video Editor Relationship Specialty Start Date End Date Jericho Nieves MD [address] [place] [address] PCP - General Internal Medicine 05/26/15 Video Editor Relationship Specialty Start Date End Date Jericho Nieves MD [address] [place] [address] PCP - General Internal Medicine 05/26/15 Video Editor Relationship Specialty Start Date End Date Jericho Nieves MD [address] [place] [address] PCP - General Internal Medicine 05/26/15 Video Editor Relationship Specialty Start Date End Date Jericho Nieves MD [address] [place] [address] PCP - General Internal Medicine 05/26/15 Video Editor Relationship Specialty Start Date End Date Jericho Nieves MD [address] [place] [address] PCP - General Internal Medicine 05/26/15 Video Editor Relationship Specialty Start Date End Date Jericho Nieves MD [address] [place] [address] PCP - General Internal Medicine 05/26/15 Video Editor Relationship Specialty Start Date End Date Jericho Nieves MD [address] [place] [address] PCP - General Internal Medicine 05/26/15 Video Editor Relationship Specialty Start Date End Date Jericho Nieves MD [address] [place] [address] PCP - General Internal Medicine 05/26/15 Video Editor Relationship Specialty Start Date End Date Jericho Nieves MD [address] [place] [address] PCP - General Internal Medicine 05/26/15 Care Team (unrecognized sect ion and content) Care Team Personnel Name: JERICHO NIEVES MD Member Role: Primary Care Physician Address: Address: [address] [place] [address]- Name: ROBIN RIGGS MD Position: ED Physician Member Role: ED Physician Address: Address: [address] [place] [address]- Name: KWADWO Padilla Position: ED RN Member Role: ED RN Care Team Related Persons Name: AARON FLORES Care Team Personnel Name: JERICHO NIEVES MD Member Role: Primary Care Physician Address: Address: [address] [place] [address]- Care Team Related Persons Name: AARON FLORES [...] BE BASED ON THE PRIMARY CLINICAL RECORDS. [facility] [employer] [facility]. provides no warranty or guarantee of the accuracy or completeness of information in this document.
[2023-06-17] MEDS: Potassium Chloride Oral Tablet 20 MEQ 40 MEQ PO (05:11)
[2023-06-17] MEDS: Potassium Chloride 10mEq/100mL 10 MEQ/100 ML IV.SOLN. 100 MEQ IV BOLUS ×2 (05:27→06:54)
--- NOTE | 2023-06-17 07:39 | EX.ED.DYSGE1 ---
HPI History of Present Illness Chief Complaint: Shortness of Breath Informant: patient and spouse/S.O. Narrative Narrative: Patient is a 58-year-old female with past medical history of anemia bipolar disorder obstructive sleep apnea and previous COVID leading to chronic respiratory failure and need for oxygen at 2 to 4 L nasal cannula. She was seen roughly 2 weeks ago in the hospital and had a CTA obtained which revealed persistent inflammation and infection without PE. She states she has been doing well at home but in the last 3 to 4 days has been having worsening of symptoms such as increased cough and shortness of breath that does not seem to be responding to her home oxygen and worsens with walking and therefore comes in for evaluation. [facility] Medical History Anemia Anxiety and depression Atherosclerotic heart disease of [place] coronary artery without angina pectoris Back pain Bipolar disorder Bipolar disorder Cardiac arrest with ventricular fibrillation Cardiomyopathy Coronary artery disease CPAP (continuous positive airway pressure) dependence Degeneration of intervertebral disc of lumbosacral region Diabetes mellitus, type II Dyslipidemia Dyspnea Essential hypertension GERD (gastroesophageal reflux disease) Hiatal hernia History of myocardial infarction HLD (hyperlipidemia) Hypertension Lumbar facet arthropathy Lumbosacral spondylosis Migraines Nicotine dependence Obesity Obesity (BMI 30-39.9) JOSE (obstructive sleep apnea) Osteoarthritis Post-menopausal Presence of stent in coronary artery (~05/17/22) Psoriasis Seizures Sleep apnea Smoker Smoking addiction ST elevation (STEMI) myocardial infarction Syncope Home Medications nitroglycerin 0.4 mg sublingual tablet 0.4 mg sublingual Q5M PRN CHEST PAIN #30 tabs 04/06/22 [Rx Last Taken Unknown] escitalopram oxalate 20 mg tablet 30 mg PO DAILY DEPRESSION 05/08/22 [History Last Taken 05/17/22] pregabalin 75 mg capsule 75 mg PO BID PAIN 05/08/22 [History Last Taken 05/17/22] aspirin 81 mg tablet,delayed release 81 mg PO DAILY@0800 [facility] #90 tabs 06/05/22 [Rx Last Taken 05/20/23] atorvastatin 40 mg tablet 40 mg PO QHS CHOLESTEROL #90 tabs 06/05/22 [Rx Last Taken 05/20/23] methotrexate sodium 2.5 mg tablet 15 mg PO QWEEK RHEUMATOID ARTHRITIS 06/05/22 [History Last Taken Unknown] zolpidem 10 mg tablet (Ambien) 10 mg PO QHS PRN SLEEP 08/29/22 [History Last Taken 05/20/23] albuterol sulfate 90 mcg/actuation aerosol inhaler 2 puff inhalation Q4H PRN SHORTNESS OF BREATH/WHEEZING 05/21/23 [History Last Taken 05/21/23] clopidogrel 75 mg tablet 75 mg PO DAILY BLOOD THINNER 05/21/23 [History Last Taken 05/19/23] fluticasone furoate 200 mcg-vilanterol 25 mcg/dose inhalation powder (Breo Ellipta) 1 inh inhalation DAILY ASTHMA 05/21/23 [History Last Taken Unknown] lansoprazole 30 mg capsule,delayed release 30 mg PO DAILY ACID REFLUX 05/21/23 [History Last Taken 05/20/23] lidocaine 5 % topical ointment 1 applic topical 4X/DAY PRN PAIN 05/21/23 [History Last Taken Unknown] valbenazine 80 mg capsule (Ingrezza) 80 mg PO DAILY tardive dyskinesia 05/21/23 [History Last Taken 05/20/23] amitriptyline 75 mg tablet 75 mg PO QHS sleep 05/31/23 [History Last Taken Unknown] lamotrigine 200 mg tablet See Rx Instructions PO .COMPLEX 05/31/23 [History Last Taken Unknown] acetaminophen 325 mg tablet 1,000 mg (3.0769 x 325 mg) PO Q8H PRN PRN Fever, pain 1-1010 #0 tabs 06/05/23 [Rx Last Taken Unknown] alprazolam 0.5 mg tablet 0.5 mg PO BID PRN ANXIETY 3 days #6 tabs 06/05/23 [Rx Last Taken Unknown] buprenorphine 20 mcg/hour weekly transdermal patch 1 patch transdermal TH SEVERE PAIN 1 week #1 ea 06/05/23 [Rx Last Taken Unknown] furosemide 20 mg tablet 20 mg PO DAILY #30 tabs 06/06/23 [Rx Last Taken Unknown] Allergy/AdvReac Type Severity Reaction Status Date / Time tramadol HCl [From Ultram] Allergy Rash Verified 06/17/23 02:55 cariprazine [From Vraylar] AdvReac Other Verified 06/17/23 02:55 codeine AdvReac Vomiting Verified 06/17/23 02:55 hydromorphone [From Dilaudid] AdvReac Nausea/Vom/ Verified 06/17/23 02:55 Diarrhea oxycodone HCl [From Percocet] AdvReac Vomiting Verified 06/17/23 02:55 quetiapine [From Seroquel] AdvReac Other Verified 06/17/23 02:55 Family History Father CHF (congestive heart failure) Cardiomyopathy Heart disease Hypertension Cardiac arrest with ventricular fibrillation Mother CVA (cerebral vascular accident) Diabetes Surgical History History of back surgery History of carpal tunnel surgery Hx of knee surgery Hx of neck surgery Presence of coronary angioplasty implant and graft (~05/17/22) Social History household members: significant other Smoking Status: Former smoker alcohol intake: never substance use type: does not use caffeine: Yes Type: carbonated beverages Number of servings: 1 ROS ROS ED Constitutional Constitutional ED: Denies chills or fever(s) ENT ENT ED: Reports rhinorrhea; Denies sore throat Cardiovascular Cardiovascular: Denies chest pain Respiratory/Chest Respiratory/Chest: Reports cough, dyspnea and dyspnea on exertion Gastrointestinal Gastrointestinal: Reports nausea and vomiting; Denies abdominal pain, diarrhea or melena Genitourinary Genitourinary ED: Denies dysuria or hematuria Musculoskeletal Musculoskeletal: Denies myalgias Integumentary Denies rash Neurologic Neurologic: Reports weakness; Denies headache(s) Hematologic/Lymphatic Hematologic/Lymphatic: Denies easy bleeding or easy bruising EXAM Physical Exam Const Vital Signs: 06/17/23 02:48 06/17/23 02:53 06/17/23 03:13 Temperature 98.7 F 98.7 F Temperature Source Temporal Temporal Pulse Rate 77 71 Respiratory Rate 26 H 22 H Respiratory Effort Short of Breath Respiratory Depth Shallow Respiratory Pattern Tachypnea Blood Pressure 101/38 L 101/38 L Blood Pressure Mean 59 59 Pulse Ox 93 94 Oxygen Delivery Method Nasal Cannula Nasal Cannula Nasal Cannula Oxygen Flow Rate (L/min) 4 4 4 06/17/23 04:25 06/17/23 04:35 06/17/23 05:14 Temperature 97.8 F Temperature Source Temporal Pulse Rate 73 82 80 Respiratory Rate 28 H 36 H 27 H Respiratory Effort Respiratory Depth Respiratory Pattern Tachypnea Blood Pressure 108/52 L 109/50 L Blood Pressure Mean 70 69 Pulse Ox 90 90 Oxygen Delivery Method Nasal Cannula Nasal Cannula Oxygen Flow Rate (L/min) 4 4 06/17/23 06:35 06/17/23 06:48 Temperature 96.9 F L Temperature Source Temporal Pulse Rate 88 Respiratory Rate 34 H Respiratory Effort Respiratory Depth Respiratory Pattern Blood Pressure 91/64 Blood Pressure Mean 73 Pulse Ox 93 94 Oxygen Delivery Method High Flow Nasal Cannula Oxygen Flow Rate (L/min) 5 4 Positive well nourished, well developed and obese General Appearance ED: well developed and pallor Nutritional Appearance: obese HEENT Reports dry mucous membranes HEENT Narrative: Cobblestoning is noted in the posterior pharynx consistent with sinus drainage without airway edema or compromise Mucous membranes are dry and tacky No secondary changes in the posterior pharynx to suggest infection Mouth ED: Yes dry mucous membranes Mouth: dry mucous membranes Eyes PERRL and EOMs intact bilaterally General Eye ED: Negative for scleral icterus Neck supple and no JVD Neck Narrative: No nuchal rigidity or meningeal signs noted Chest Wall palpation of chest normal Chest Narrative: No bony deformity or crepitance Resp Resp Narrative: Patient is tachypneic with accessory muscle use and breath sounds are diminished throughout with faint wheeze and rhonchi noted in the bilateral lower lobes Cardio regular rate and regular rhythm GI normal to inspection, nondistended, normoactive bowel sounds, non-tender, non-distended and no masses GI Narrative: No voluntary guarding or rigidity or pulsatile mass Auscultation: normoactive bowel sounds Palpation: soft Extremity normal to inspection Extremity Narrative: No asymmetric edema no pitting edema negative Homans' sign bilaterally Neuro oriented x3, CN's II-XII intact bilaterally and no sensory deficits noted Sensorium / Orientation: alert Psych Psych Narrative: Patient has a flat affect Skin no rashes or lesions noted General Skin Exam: pallor MDM MDM MDM Narrative Medical decision making narrative: Patient arrived to the ER tachypneic with accessory muscle use but satting 90 to 94% at rest on her normal oxygen. However with her increased work of breathing there is concern that she has has pneumonia versus congestive heart failure exacerbation versus influenza COVID or RSV versus acute blood loss anemia. A repeat workup was obtained that reveals anemia 8.2 which is slightly down from her baseline of 9 but above the transfusion value. There is concern for electrolyte derangement as well and she does have hypokalemia at 2.7 and therefore this was replaced by oral and IV route. proBNP is normal going against congestive heart failure and viral swabs were negative for COVID flu RSV. Chest x-ray revealed diffuse haziness that is very similar to her imaging from May. The patient was ambulated on her normal 4 L and her pulse ox dropped to 66% and her work of breathing increased as well. Therefore at this time as she is tachypneic at rest and desats with ambulation I do not feel that she is safe for discharge and therefore medicine was contacted who agrees to readmit the patient at this time. I do not feel there is need for antibiotics at this time as she does not have a fever or white count and the chest x-ray is very similar to a few weeks ago. Also as her hemoglobin is above 7 and she denies any active bleeding I do not feel there is need for blood transfusion History & Record Review Discussion w/independent historian: Patient and Family Lab Data Attestation: I reviewed the patient's lab results. Labs: Laboratory Results - last 24 hr 06/17/23 04:13 WBC 5.1 RBC 2.37 L Hgb 8.2 L Hct 23.2 L MCV 97.9 MCH 34.6 H MCHC 35.3 RDW Std Deviation 53.1 H RDW Coeff of Erlinda 15.3 H Plt Count 199 MPV 10.6 Immature Gran % (Auto) 1.200 H Neut % (Auto) 81.0 H Lymph % (Auto) 12.5 L [place] % (Auto) 1.2 Eos % (Auto) 3.7 Baso % (Auto) 0.4 Absolute Neuts (auto) 4.2 Absolute Lymphs (auto) 0.64 L Nucleated RBC % 0 Sodium 135 L Potassium 2.7 L* Chloride 98 Carbon Dioxide 28.0 Anion Gap 9 BUN 18 Creatinine 1.68 H Estim Creat Clear Calc 44.98 Est GFR (MDRD) Af Amer 40 L Est GFR (MDRD) Non-Af 33 L BUN/Creatinine Ratio 10.7 Glucose 156 H Calcium 7.4 L Magnesium 1.7 B-Natriuretic Peptide 82.0 Radiography Diagnostic Testing: Clinical Impression(s) from Imaging Studies Chest X-Ray 06/17/23 04:40 IMPRESSION: Again noted diffuse interstitial process, confluent at the bases, suggesting pulmonary edema given venous congestion and cardiomegaly. Infectious etiology is not excluded. Recommend follow-up to resolution. Electronically Signed: Sabas Gilbert MD at 5:54 EST , Chest x-ray as interpreted by the emergency medicine physician reveals poor inspiration with diffuse haziness consistent with pulmonary edema versus persistent infection Management Discussion w/another healthcare provider: Hospitalist Discharge Plan Dx/Rx/DC Orders Clinical Impression: Acute on chronic respiratory failure, Anemia, Acute hypokalemia Disposition Disposition: Acute Care Hospital [facility]
--- NOTE | 2023-06-17 07:56 | HP.PCM.HOS_ITS ---
HPI - General General Date of Admission: 06/17/23 Date of Service: 06/17/23 Chief Complaint: Shortness of breath HPI Narrative JUAN EAGLE, is a 58 F who presents with shortness of breath. Over the past 3 to 4 days, patient has been coughing that is dry and has been increasing short of breath. Patient was discharged earlier this month with acute hypoxic respiratory secondary to COVID-19 pneumonitis and COPD exacerbation. Patient was discharged with 2 L of oxygen at home but has not been able to do using 4 L continuously. Patient presented here tachypneic with a respiratory rate into the 30s. On 4 L of oxygen with pulse ox around 90. Patient was ambulated and a bit with her oxygen dropped into the 80s and becomes very tachypneic. Patient was noted to have a drop in her hemoglobin down to 8.2 the patient denies any medication or melena. Patient also her potassium is down to 2.7. With her recovery difficulties, hypoxia despite being on 4 L of oxygen, possible service was contacted for the [facility] Medical History Anemia Anxiety and depression Atherosclerotic heart disease of [place] coronary artery without angina pectoris Back pain Bipolar disorder Bipolar disorder Cardiac arrest with ventricular fibrillation Cardiomyopathy Coronary artery disease CPAP (continuous positive airway pressure) dependence Degeneration of intervertebral disc of lumbosacral region Diabetes mellitus, type II Dyslipidemia Dyspnea Essential hypertension GERD (gastroesophageal reflux disease) Hiatal hernia History of myocardial infarction HLD (hyperlipidemia) Hypertension Lumbar facet arthropathy Lumbosacral spondylosis Migraines Nicotine dependence Obesity Obesity (BMI 30-39.9) JOSE (obstructive sleep apnea) Osteoarthritis Post-menopausal Presence of stent in coronary artery (~05/17/22) Psoriasis Seizures Sleep apnea Smoker Smoking addiction ST elevation (STEMI) myocardial infarction Syncope Home Medications nitroglycerin 0.4 mg sublingual tablet 0.4 mg sublingual Q5M PRN CHEST PAIN #30 tabs 04/06/22 [Rx Last Taken Unknown] escitalopram oxalate 20 mg tablet 30 mg PO DAILY DEPRESSION 05/08/22 [History Last Taken 05/17/22] pregabalin 75 mg capsule 75 mg PO BID PAIN 05/08/22 [History Last Taken 05/17/22] aspirin 81 mg tablet,delayed release 81 mg PO DAILY@0800 [facility] #90 tabs 06/05/22 [Rx Last Taken 05/20/23] atorvastatin 40 mg tablet 40 mg PO QHS CHOLESTEROL #90 tabs 06/05/22 [Rx Last Taken 05/20/23] methotrexate sodium 2.5 mg tablet 15 mg PO QWEEK RHEUMATOID ARTHRITIS 06/05/22 [History Last Taken Unknown] zolpidem 10 mg tablet (Ambien) 10 mg PO QHS PRN SLEEP 08/29/22 [History Last Taken 05/20/23] albuterol sulfate 90 mcg/actuation aerosol inhaler 2 puff inhalation Q4H PRN SHORTNESS OF BREATH/WHEEZING 05/21/23 [History Last Taken 05/21/23] clopidogrel 75 mg tablet 75 mg PO DAILY BLOOD THINNER 05/21/23 [History Last Taken 05/19/23] fluticasone furoate 200 mcg-vilanterol 25 mcg/dose inhalation powder (Breo Ellipta) 1 inh inhalation DAILY ASTHMA 05/21/23 [History Last Taken Unknown] lansoprazole 30 mg capsule,delayed release 30 mg PO DAILY ACID REFLUX 05/21/23 [History Last Taken 05/20/23] lidocaine 5 % topical ointment 1 applic topical 4X/DAY PRN PAIN 05/21/23 [History Last Taken Unknown] valbenazine 80 mg capsule (Ingrezza) 80 mg PO DAILY tardive dyskinesia 05/21/23 [History Last Taken 05/20/23] amitriptyline 75 mg tablet 75 mg PO QHS sleep 05/31/23 [History Last Taken Unknown] lamotrigine 200 mg tablet See Rx Instructions PO .COMPLEX 05/31/23 [History Last Taken Unknown] acetaminophen 325 mg tablet 1,000 mg (3.0769 x 325 mg) PO Q8H PRN PRN Fever, pain 1-1010 #0 tabs 06/05/23 [Rx Last Taken Unknown] alprazolam 0.5 mg tablet 0.5 mg PO BID PRN ANXIETY 3 days #6 tabs 06/05/23 [Rx Last Taken Unknown] buprenorphine 20 mcg/hour weekly transdermal patch 1 patch transdermal TH SEVERE PAIN 1 week #1 ea 06/05/23 [Rx Last Taken Unknown] furosemide 20 mg tablet 20 mg PO DAILY #30 tabs 06/06/23 [Rx Last Taken Unknown] Allergy/AdvReac Type Severity Reaction Status Date / Time tramadol HCl [From [facility]] Allergy Rash Verified 06/17/23 02:55 cariprazine [From Vraylar] AdvReac Other Verified 06/17/23 02:55 codeine AdvReac Vomiting Verified 06/17/23 02:55 hydromorphone [From Dilaudid] AdvReac Nausea/Vom/ Verified 06/17/23 02:55 Diarrhea oxycodone HCl [From Percocet] AdvReac Vomiting Verified 06/17/23 02:55 quetiapine [From Seroquel] AdvReac Other Verified 06/17/23 02:55 Family History Father CHF (congestive heart failure) Cardiomyopathy Heart disease Hypertension Cardiac arrest with ventricular fibrillation Mother CVA (cerebral vascular accident) Diabetes Surgical History History of back surgery History of carpal tunnel surgery Hx of knee surgery Hx of neck surgery Presence of coronary angioplasty implant and graft (~05/17/22) Social History household members: significant other Smoking Status: Former smoker alcohol intake: never substance use type: does not use caffeine: Yes Type: carbonated beverages Number of servings: 1 ROS ROS Narrative Denies any fever or chills. Denies sore throat or rhinitis. Increased lower extremity edema. all review of systems were negative except as mentioned above in the history of present illness and the other review of systems. Vital Signs Vital Signs Vital Signs: 06/17/23 02:48 06/17/23 02:53 06/17/23 03:13 Temperature 37.1 C 37.1 C Temperature Source Temporal Temporal Pulse Rate 77 71 Respiratory Rate 26 H 22 H Respiratory Effort Short of Breath Respiratory Depth Shallow Respiratory Pattern Tachypnea Blood Pressure 101/38 L 101/38 L Blood Pressure Mean 59 59 Pulse Ox 93 94 Oxygen Delivery Method Nasal Cannula Nasal Cannula Nasal Cannula Oxygen Flow Rate (L/min) 4 4 4 06/17/23 04:25 06/17/23 04:35 06/17/23 05:14 Temperature 36.6 C Temperature Source Temporal Pulse Rate 73 82 80 Respiratory Rate 28 H 36 H 27 H Respiratory Effort Respiratory Depth Respiratory Pattern Tachypnea Blood Pressure 108/52 L 109/50 L Blood Pressure Mean 70 69 Pulse Ox 90 90 Oxygen Delivery Method Nasal Cannula Nasal Cannula Oxygen Flow Rate (L/min) 4 4 06/17/23 06:35 06/17/23 06:48 Temperature 36.1 C L Temperature Source Temporal Pulse Rate 88 Respiratory Rate 34 H Respiratory Effort Respiratory Depth Respiratory Pattern Blood Pressure 91/64 Blood Pressure Mean 73 Pulse Ox 93 94 Oxygen Delivery Method High Flow Nasal Cannula Oxygen Flow Rate (L/min) 5 4 Weight Weight: 121.1 kg Body Mass Index (BMI) 50.4 Physical Exam Const alert and no apparent distress Constitutional Narrative: Lying in bed. Nontoxic. Afebrile. No respiratory distress. Tachypneic. Anxious. Appears older than stated age. HEENT normocephalic, head/scalp atraumatic and hearing grossly normal bilaterally Eyes Eyes Narrative: Glasses. No icterus. Neck no lymphadenopathy and no JVD Resp Resp Narrative: Bibasilar crackles. Cardio regular rate, regular rhythm, S1 normal heart sound and S2 normal heart sound GI normal to inspection, nondistended, normoactive bowel sounds, soft to palpation, non-tender and non-distended Extremity normal to inspection Extremity Narrative: Trace lower extremity edema. Skin Skin Narrative: No rashes or lesions. Neuro moves all extremities and no focal motor deficits Sensorium / Orientation: awake and alert Psych Mood & Affect: anxious Results Lab / Micro Data Attestation: I reviewed the patient's lab results. 06/17/23 04:13 06/17/23 04:13 Labs: Laboratory Results - last 24 hr 06/17/23 04:13: WBC 5.1, RBC 2.37 L, Hgb 8.2 L, Hct 23.2 L, MCV 97.9, MCH 34.6 H , MCHC 35.3, RDW Std Deviation 53.1 H, RDW Coeff of Erlinda 15.3 H, Plt Count 199, MPV 10.6, Immature Gran % (Auto) 1.200 H, Neut % (Auto) 81.0 H, Lymph % (Auto) 12.5 L, [place] % (Auto) 1.2, Eos % (Auto) 3.7, Baso % (Auto) 0.4, Absolute Neuts (auto) 4.2, Absolute Lymphs (auto) 0.64 L, Nucleated RBC % 0, Sodium 135 L, Potassium 2.7 L*, Chloride 98, Carbon Dioxide 28.0, Anion Gap 9, BUN 18, Creatinine 1.68 H, Estim Creat Clear Calc 44.98, Est GFR (MDRD) Af Amer 40 L, Est GFR (MDRD) Non-Af 33 L, BUN/Creatinine Ratio 10.7, Glucose 156 H, Calcium 7.4 L, Magnesium 1.7, B-Natriuretic Peptide 82.0 Micro: Microbiology 06/17/23 04:16 Mucosa - Nose SARS-CoV-2, Influenza & RSV (PCR) - Final EKG Initial EKG: Attestation: I personally reviewed and interpreted this EKG as follows: Prior EKG tracings: available for review EKG Rhythm Intrepretation: Sinus Rhythm Imaging Radiology Impression Chest X-Ray 06/17/23 04:40 IMPRESSION: Again noted diffuse interstitial process, confluent at the bases, suggesting pulmonary edema given venous congestion and cardiomegaly. Infectious etiology is not excluded. Recommend follow-up to resolution. Electronically Signed: Sabas Gilbert MD at 5:54 EST , Assessment & Plan Assessment/Plan (1) Acute on chronic respiratory failure: (2) Anemia: (3) Acute hypokalemia: PLAN: Plan Acute on chronic hypoxic respiratory failure * Patient was ambulated on 4 L and was dropping 80s with oxygen. Chest x-ray shows chronic interstitial changes likely related with the patient's previous COVID-19 pneumonitis. Cannot determine if patient has any new infiltrates or worsening edema. * May be exacerbated by her underlying asthma and COVID-19 pneumonitis * . Treatment at this time will include methylprednisolone, bronchodilators, empiric antibiotics * Will follow-up D-dimer, sputum culture, strep and Legionella antigens. COVID- 19, influenza and RSV are negative. * Wean oxygen as tolerated. * Given patient's worsening kidney function, will not start furosemide IV and I will discontinue her home dose of furosemide. Anemia * Has been trending down over the past month. Patient denies any medication. * Patient does take aspirin and clopidogrel. * Patient is on aspirin and clopidogrel for PCI that she had in April 2022. I will hold her clopidogrel for now. * Check Hemoccult, iron, total iron-binding capacity, B12, folate Hypokalemia * Likely secondary to furosemide * Ordered placement in the emergency room * Follow-up potassium as well as magnesium Acute kidney injury * Creatinine has been slowly trending up over the past several weeks. Currently is at 1.68. Baseline creatinine is around 1. * Check urine studies * Hold furosemide Chronic conditions * CAD: Patient had PCI in April 2022. Holding clopidogrel given the anemia. Continue with aspirin. * Morbid obesity with BMI of 50.4. Complicates care and recovery. * Chronic pain: Buprenorphine * Depression: Continue with escitalopram. * Tardive dyskinesia: Continue with Ingrezza. * Diabetes mellitus type 2: Sliding scale insulin. 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 * JOSE: Continue with CPAP VTE prophylaxis with SCDs CODE STATUS: Addressed with the patient. Patient was unsure. Told patient we will leave her on full CODE STATUS at this point time but she may change her mind at any point and notify us if she does so. Disposition: Determined. I anticipate the patient requiring greater than 2 midn ights in the hospital given her respiratory status as well as her multiple medical comorbidities. Charges/Coding Visit Charges Inpatient E&M: 76752 Init Hosp L3
--- OUTSIDE RECORDS SUMMARY | 2023-06-17 07:59 | XMS RPT_ITS | CCD ---
Author Name Unknown Address [address] [place] [address] Organization [facility] Care Team Providers Care Tar And Ammonia Pump Operator Name Role Phone Ezequiel CARRANZA, Jericho Prado Primary Care Provider [phone] EZEQUIEL CARRANZA, DR HELM Primary Care Physician Ezequiel CARRANZA, Jericho Prado Primary Care Provider [phone] KARISHMA CARRANZA, ELIECER V Attending Unavailab christiano NIEVES MD., DR. HELM Primary Care Leonardo NIEVES MD., DR. HELM [...] [acetaminophen-oxy codone] Drug Allergy 5 GI Upset [facility] (20 sources) cariprazine; Translations: [CARIPRAZINE] Drug Allergy 9 Other: See Comments [facility] (20 sources) Codeine; Translations: [codeine] Drug Allergy 5 Other: See Comments [facility] (20 sources) HYDROmorphone; Translations: [HYDROMORPHONE (BULK)] Drug Allergy 5 GI Upset [facility] (20 sources) QUEtiapine; Translations: [quetiapine] Drug Allergy 9 Other: See Comments [facility] (20 sources) traMADol; Translations: [TRAMADOL HCL] Drug Allergy 5 GI Upset [facility] (2 sources) HYDROmorphone; Translations: [hydromorphone] Drug Allergy [facility] (2 sources) traMADol; Translations: [tramadol] Drug Allergy [facility] Medications Current Medications Medication Drug [...] every six hours as needed for pain [place] 325- 5 mg oral tablet Dose = [...] Coronary atherosclerosis; Translations: [Atherosclerotic heart disease of [place] coronary artery without angina pectoris] Onset: 2 [...] (20 sources) Patient encounter status; Translations: [Other intermediate (current) drug therapy] Onset: 07-01-2022 Episodic Other aftercare (1 source) Other intermediate (current) drug therapy; Translations: [Encounter for [...] 97.59 [degF] Jericho Nieves MD Work Phone: [facility] 06-13-2023 18:40-0500 Body weight 111.81 kg Jericho Nieves MD Work Phone: [facility] 06-13-2023 18:40-0500 Diastolic blood pressure 39 mm[Hg] Jericho Nieves MD Work Phone: [facility] 06-13-2023 18:40-0500 Heart rate 65 /min Jericho Nieves MD Work Phone: [facility] 06-13-2023 18:40-0500 Respiratory rate 24 /min Jericho Nieves MD Work Phone: [facility] 06-13-2023 18:40-0500 Systolic blood pressure 76 mm[Hg] Jericho Nieves MD Work Phone: [facility] 05-14-2023 08:56-0500 Body weight 128.19 kg Seda Rajguru MONOGRAM OPERATOR.MANAGER CALL Work Phone: [facility] 05-14-2023 08:56-0500 Diastolic blood pressure 58 mm[Hg] Seda Rajguru MONOGRAM OPERATOR.MANAGER CALL Work Phone: [facility] 05-14-2023 08:56-0500 Heart rate 80 /min Seda Rajguru MONOGRAM OPERATOR.MANAGER CALL Work Phone: [facility] 05-14-2023 08:56-0500 Systolic blood pressure 122 mm[Hg] Seda Rajguru MONOGRAM OPERATOR.MANAGER CALL Work Phone: [facility] 04-02-2023 13:37-0500 Body weight 126.1 kg Seda Rajguru MONOGRAM OPERATOR.MANAGER CALL Work Phone: [facility] 04-02-2023 13:37-0500 Diastolic blood pressure 66 mm[Hg] Seda Slimeru MONOGRAM OPERATOR.MANAGER CALL Work Phone: [facility] 04-02-2023 13:37-0500 Heart rate 80 /min Seda Slimeru MONOGRAM OPERATOR.MANAGER CALL Work Phone: [facility] 04-02-2023 13:37-0500 Systolic blood pressure 138 mm[Hg] Seda Slimeru MONOGRAM OPERATOR.MANAGER CALL Work Phone: [facility] 03-06-2023 11:02-0400 Body weight 127.87 kg Jericho Nieves MD Work Phone: [facility] 03-06-2023 11:02-0400 Diastolic blood pressure 60 mm[Hg] Jericho Nieves MD Work Phone: [facility] 03-06-2023 11:02-0400 Heart rate 64 /min Jericho Nieves MD Work Phone: [facility] 03-06-2023 11:02-0400 Respiratory rate 20 /min Jericho Nieves MD Work Phone: [facility] 03-06-2023 11:02-0400 Systolic blood pressure 118 mm[Hg] Jericho Nieves MD Work Phone: [facility] 01-21-2023 12:56-0400 Body weight 124.29 kg Jamilah Mandy PA-C Work Phone: [facility] 01-21-2023 12:56-0400 Diastolic blood pressure 60 mm[Hg] Jamilah Mandy PA-C Work Phone: [facility] 01-21-2023 12:56-0400 Heart rate 62 /min Jamilah Mandy PA-C Work Phone: [facility] 01-21-2023 12:56-0400 Respiratory rate 15 /min Jamilah Mandy PA-C Work Phone: [facility] 01-21-2023 12:56-0400 SaO2% (BldA) [Mass fraction] 97 % Jamilah ESTRADAC Work Phone: [facility] 01-21-2023 12:56-0400 Systolic blood pressure 122 mm[Hg] Jamilah Hampton PA-C Work Phone: [facility] 01-15-2023 08:17-0400 Body weight 126.55 kg Seda Rajguru MONOGRAM OPERATOR.MANAGER CALL Work Phone: [facility] 01-15-2023 08:17-0400 Diastolic blood pressure 58 mm[Hg] Seda Rajguru MONOGRAM OPERATOR.MANAGER CALL Work Phone: [facility] 01-15-2023 08:17-0400 Heart rate 76 /min Seda Rajguru MONOGRAM OPERATOR.MANAGER CALL Work Phone: [facility] 01-15-2023 08:17-0400 Systolic blood pressure 132 mm[Hg] Seda Rajguru MONOGRAM OPERATOR.MANAGER CALL Work Phone: [facility] 07-20-2022 15:15-0400 Body height 156.2 cm Pulm Wstr Work Phone: [facility] 07-20-2022 15:15-0400 Body weight 119.75 kg Pulm Wstr Work Phone: [facility] 07-19-2022 14:43-0400 Body weight 119.75 kg Talia Tineo MD Work Phone: [facility] 07-19-2022 14:43-0400 Diastolic blood pressure 84 mm[Hg] Talia Tineo MD Work Phone: [facility] 07-19-2022 14:43-0400 Heart rate 75 /min Talia Tineo MD Work Phone: [facility] 07-19-2022 14:43-0400 Respiratory rate 18 /min Talia Tineo MD Work Phone: [facility] 07-19-2022 14:43-0400 SaO2% (BldA) [Mass fraction] 97 % Talia Tineo MD Work Phone: [facility] 07-19-2022 14:43-0400 Systolic blood pressure 138 mm[Hg] Talia Tineo MD Work Phone: [facility] 06-01-2022 10:40-0500 Body weight 118.84 kg Joanna Older MONOGRAM OPERATOR.MANAGER CALL Work Phone: [facility] 06-01-2022 10:40-0500 Diastolic blood pressure 60 mm[Hg] Joanna Older MONOGRAM OPERATOR.MANAGER CALL Work Phone: [facility] 06-01-2022 10:40-0500 Heart rate 68 /min Joanna Older MONOGRAM OPERATOR.MANAGER CALL Work Phone: [facility] 06-01-2022 10:40-0500 Respiratory rate 20 /min Joanna Older MONOGRAM OPERATOR.MANAGER CALL Work Phone: [facility] 06-01-2022 10:40-0500 SaO2% (BldA) [Mass fraction] 98 % Joanna Older MONOGRAM OPERATOR.MANAGER CALL Work Phone: [facility] 06-01-2022 10:40-0500 Systolic blood pressure 114 mm[Hg] Joanna Older MONOGRAM OPERATOR.MANAGER CALL Work Phone: [facility] 04-11-2022 16:17-0500 Body weight 118.84 kg Jericho Nieves MD Work Phone: [facility] 04-11-2022 16:17-0500 Diastolic blood pressure 64 mm[Hg] Jericho Nieves MD Work Phone: [facility] 04-11-2022 16:17-0500 Heart rate 69 /min Jericho Nieves MD Work Phone: [facility] 04-11-2022 16:17-0500 Respiratory rate 20 /min Jericho Nieves MD Work Phone: [facility] 04-11-2022 16:17-0500 SaO2% (BldA) [Mass fraction] 98 % Jericho Nieves MD Work Phone: [facility] 04-11-2022 16:17-0500 Systolic blood pressure 94 mm[Hg] Jericho Nieves MD Work Phone: [facility] 03-08-2022 15:35-0400 Body temperature 98.42 [degF] ROBIN RIGGS MD [facility] 03-08-2022 15:35-0400 Diastolic blood pressure 82 mm[Hg] ROBIN RIGGS MD [facility] 03-08-2022 15:35-0400 Heart rate 82 /min ROBIN RIGGS MD [facility] 03-08-2022 15:35-0400 Respiratory rate 16 /min ROBIN RIGGS MD [facility] 03-08-2022 15:35-0400 Systolic blood pressure 154 mm[Hg] ROBIN RIGGS MD [facility] 03-01-2022 10:50-0400 Body weight 120.2 kg Jericho Nieves MD Work Phone: [facility] 03-01-2022 10:50-0400 Diastolic blood pressure 76 mm[Hg] Jericho Nieves MD Work Phone: [facility] 03-01-2022 10:50-0400 Heart rate 69 /min Jericho Nieves MD Work Phone: [facility] 03-01-2022 10:50-0400 Respiratory rate 14 /min Jericho Nieves MD Work Phone: [facility] 03-01-2022 10:50-0400 SaO2% (BldA) [Mass fraction] 98 % Jericho Nieves MD Work Phone: [facility] 03-01-2022 10:50-0400 Systolic blood pressure 124 mm[Hg] Jericho Nieves MD Work Phone: [facility] 01-18-2022 13:02-0400 Body height 156.2 cm Jamilah Mandy PA-C Work Phone: [facility] 01-18-2022 13:02-0400 Body weight 121.56 kg Jamilah Mandy PA-C Work Phone: [facility] 01-18-2022 13:02-0400 Diastolic blood pressure 68 mm[Hg] Jamilah Mandy PA-C Work Phone: [facility] 01-18-2022 13:02-0400 Heart rate 62 /min Jamilah Mandy PA-C Work Phone: [facility] 01-18-2022 13:02-0400 Respiratory rate 14 /min Jamilah Mandy PA-C Work Phone: [facility] 01-18-2022 13:02-0400 SaO2% (BldA) [Mass fraction] 96 % Jamilah Mandy PA-C Work Phone: [facility] 01-18-2022 13:02-0400 Systolic blood pressure 122 mm[Hg] Jamilah Mandy PA-C Work Phone: [facility] 01-18-2022 12:46-0400 Body height 156.2 cm Respiratory Wstr Work Phone: [facility] 01-18-2022 12:46-0400 Body weight 121.97 kg Respiratory Wstr Work Phone: [facility] 01-18-2022 12:46-0400 Heart rate 62 /min Respiratory Wstr Work Phone: [facility] 01-18-2022 12:46-0400 Respiratory rate 14 /min Respiratory Wstr Work Phone: [facility] 01-18-2022 12:46-0400 SaO2% (BldA) [Mass fraction] 96 % Respiratory Wstr Work Phone: [facility] Encounters Encounter Date Encounter Type Care Provider Facility Start: 06-14-2023 Telephone encounter Jericho roman MD Work Phone: [facility] [place] Procedures Date Procedure Procedure Detail Performing Clinician [...] Activity Detail Author Start: 09-03-2027 Colonoscopy COLONOSCOPY [facility] Start: 09-03-2027 COLORECTAL CANCER SCREENING COLORECTAL CANCER SCREENING [facility] Start: 09-03-2027 Screening for malign ant neoplasm of colon [facility] Start: 08-24-2025 Urine microalbumin profile [facility] Start: 06-13-2024 Annual PCP Team Production Helper regan Disease Visit Annual PCP Team Chronic Disease Visit [facility] Start: 06-13-2024 Diabetic foot examination Diabetic F oot Exam [facility] Start: 04-12-2024 Glaucoma screening Dilated Retinal E xam [facility] Start: 03-15-2024 Mammography Mammogram Screening [facility] Start: 03-15-2024 Screening for malign ant neoplasm of breast Mammogram Screening [facility] Start: 03-06-2024 Annual PCP Team Production Helper regan Disease Visit Annual PCP Team Chronic Disease Visit [facility] Start: 03-06-2024 Creatinine measurement Serum Creatin ine [facility] Start: 03-06-2024 Hepatitis B screening Urine Al bumin:Creatinine Ratio [facility] Start: 03-06-2024 Serum Creatinine Serum Creatinine Cl [facility] Start: 11-03-2023 Influenza vaccination Influenza Vacc ine (#1) [facility] Immunizations Immunization Date Immunization Notes Care Provider Radha baez 04-07-2019 influenza, injectabl e, quadrivalent, contains preservative Jamilah Mandy PA-C Work Phone: [facility] 04-07-2019 influenza virus vacc ine, unspecified formulation Seda Quiroz MONOGRAM OPERATOR.MANAGER CALL Work Phone: [facility] 02-04-2018 influenza, high dose seasonal, preservative-free Jamilah Mandy PA-C Work Phone: [facility] Work Phone: 02-20-2017 influenza, injectabl e, quadrivalent, contains preservative Jamilah Mandy PA-C Work Phone: [facility] 03-02-2016 influenza, injectabl e, quadrivalent, contains preservative Jamilah Mandy PA-C Work Phone: [facility] 03-02-2016 pneumococcal polysaccharide vaccine, 23 valent Jamilah Mandy PA-C Work Phone: [facility] 08-25-2015 tetanus toxoid, redu chrsitiano diphtheria toxoid, and acellular pertussis vaccine, adsorbed Jamilah Madny PA-C Work Phone: [facility] 05-26-2015 influenza, injectabl e, quadrivalent, contains preservative Jamilah Mandy PA-C Work Phone: [facility] Payers Date Payer Category Payer Medicaid [facility] MEDICA[facility] MYC ARE [facility] MEDICAID [id number] 2015-Present [phone] [address] [place] [address] Medicaid [id number] 2015 Medicare [id number] 2015 Medicare [facility] MEDICARE MYC ARE [facility] MEDICARE [id number] 2015-Present [phone] [address] [place] [address] Medicare [id number] 2015 Unknown [id number] 1966 Unknown [id number] 1965 Unknown [id number] Social History Date Type Detail Facility Start: 1980 End: 07-19-2022 Tobacco smoking status NHIS Smokes tobacco daily [facility] Work Phone: Start: 1980 End: 05-31-2023 History of tobacco use Cigarette Smoker [facility] Work Phone: Start: 12-16-2019 End: 09-20-2022 Cigarettes smoked current (pack per day) - Reported 1 [facility] Start: 12-16-2019 End: 06-13-2023 Tobacco use and exposure Smokeless tobacco non-user [facility] Work Phone: Start: 07-17-2021 End: 06-01-2022 Alcohol intake Current drinker of alcohol (finding) [facility] Start: 10-25-2020 History SDOH Alcohol Comment occasional, rarely [facility] Start: 02-22-2020 End: 08-27-2022 History SDOH Financial 5 [facility] Start: 02-22-2020 End: 08-27-2022 History SDOH Food Worry 1 [facility] Start: 02-22-2020 End: 08-27-2022 History SDOH [facility] Start: 1965 Sex Assigned At Not on file C [facility] Start: 07-07-2021 End: 01-31-2022 Exposure to SARS-CoV-2 (event) Not sure [facility] Start: 07-30-2022 History SDOH Alcohol Comment rare 1 drink [facility] Start: 12-02-2021 End: 08-27-2022 History SDOH Physical Activity DPW 0 [facility] Start: 12-02-2021 End: 01-18-2022 Tobacco Comment from age 16 [facility] Start: 03-05-2019 Tobacco smoking status Heavy t obacco smoker (finding) [facility] Sex Assigned At Sex [facility] Start: 06-22-2022 End: 06-13-2023 Alcohol intake Ex-drinker (finding) [facility] Start: 07-19-2022 Tobacco Comment from age 16. O ne PPD in past. Cut to 1/2 PPD in April [facility] Start: 08-27-2022 History SDOH Social Connections Phone 3 [facility] Start: 08-27-2022 History SDOH Social Connections Living 8 [facility] Start: 08-27-2022 End: 09-20-2022 Social connection and isolation panel [facility] Do you belong to any clubs or organizations such as [employer] groups, [employer], [email or web address] or athletic groups, or school groups? No [facility] Are you now , , , , never or living with a partner? Living with partner [facility] How often to you hav e a drink containing alcohol? Monthly or less [facility] How many standard dr inks containing alcohol do you have on a typical day? 1 or 2 [facility] How often do you hav e 6 or more drinks on 1 occasion? Never [facility] How hard is it for y ou to pay for the very basics like food, housing, medical care, and heating Not hard at all [facility] Do you feel stress - tense, restless, nervous, or anxious, or unable to sleep at night because your mind is troubled all the time - these days [OSQ] To some extent [facility] (I/We) worried carlos er (my/our) food would run out before (I/we) got money to buy more. Never true [facility] Start: 06-13-2023 Tobacco smoking stat us NHIS Ex-smoker [facility] Work Phone: Start: 1980 End: 05-31-2023 History of tobacco use Current smoker [facility] Work Phone: Medical Equipment Procedure Code Equipment Code Equipment Origin al Text Equipment Identifier Dates Spacer Avs 4d 8m m Spinal Bone Plug - [id number] Start: 05-30-2019 [place] Drill Bit 12mm X 23mm _imp Start: 05-30-2019 Self Starting Variable Screw Size 4.0mm X 14mm _imp Start: 05-30-2019 [place] Cervical P late 1-Level 22mm _imp Start: 05-30-2019 Test blood sugar (s) 3 times daily. Dx: Other DM Code E11.22; N18.31; Z79.4 Insulin: Yes Start: 06-08-2023 Functional Status Date Assessment Result Facility 03-08-2022 Functional Status Standard Safet y ID band on, Call device within reach, Bed in low position, Wheels locked, Upper/Half-Length side-rails up, Bedside Cart Locked, Safety level maintained [facility] Mental Status Date Assessment Result Facility 03-08-2022 Mental Status Orientation Oriented x 4 [facility] Clinical Notes 01-25-2020 to 06-15-2023 Telephone Encounter - Kim Teague LPN - 06/15/2023 8:13 AM ESTTelephone Encounter - Jericho Nieves MD - 06/14/2023 5:09 PM ESTPatient Instructions Note Date & Type Note Facility 06-15-2023 Miscellaneous Notes Formattin g of this note might be different from the original. Phoned Dalia and left detailed message from Dr Nieves on voicemail. Okay. Dalia SW from [facility] calls and states that she visited patient this week. Dalia requesting a verbal order for follow up visit next week so that she can finish up helping patient with community resources. Renee Uriostegui RN documented in this encounter [facility] 06-13-2023 Instructions Jericho Nieves MD - 06/13/2023 7:17 PM EST BLOOD WORK SOON, NO NEED TO FAST. STOP LOSARTAN 50 MG DAILY. CALL IF BLOOD SUGARS LESS THAN 70 OR MORE THAN 250. documented in this encounter [facility] 06-13-2023 History of Presen t illness Narrative This note was created using [email or web address]. Subjective Patient presents with: ER F/U: [facility] [...] sliding scale insulin. She had yet to cone picker her glucose meter we ordered at the [...] (Bmi) of 50.0 to 59.9 in Adult ([facility]) Persistent Headaches S/P Cervical Spinal Fusion Tobacco Use Disorder Moderate Persistent Asthma Without Complication Psoriatic Arthritis (Hcc) Irritable Bowel Syndrome With Diarrhea Stage 3a Chronic Kidney Disease ([facility]) Coronary Artery Disease Involving [place] Coronary Artery of [place] Heart Without Angina Pectoris St Elevation Myocardial Infarction Involving Left Circumflex Coronary Artery ([facility]) Ischemic Cardiomyopathy Encounter for Long-Term (Current) Use of Medications Bipolar Disorder ([facility]) Ptsd (Post-Traumatic Stress Disorder) Dyskinesia, Tardive Social [...] Hydration stressed. 5. Coronary artery disease involving iliamna coronary artery of ili[place] heart without angina pectoris - ICD9: 414.01, [...] Jericho Nieves MD documented in this encounter [facility] 06-12-2023 Miscellaneous Notes Formattin g of this note might be different from the original. Noted Renee BURKETT CM with [facility] called in and wanted to update provider [...] supposed to be sent home from the [facility] on Prednisone and Humalog Kwik Pen AC/HS, [...] a confidential line. documented in this encounter [facility] 06-10-2023 Miscellaneous Notes Formattin g of this note might be different from the original. Ginny with [facility] OT calling with pt update [...] for ADLs, activity tolerance and oxygen use. [facility] Nursing to visit patient at 12:30 today. No call back needed to EMILY Gross unless further orders are advised. Laxmi Sal RN documented in this encounter [facility] 06-10-2023 Miscellaneous Notes Formattin g of this [...] use. Rx for glucometer sent to [facility]. 4) Allergy alerts and drug alerts noted. Continue current medications. Wyatt BURKETT calling from [facility] to report plan of care [...] assisted patient with longer tubing and contacted [employer]. Patient's pulse ox was 87% at rest [...] Sofi Carrion RN documented in this encounter [facility] documented in this encounter [facility]02-02-2024 Miscellaneous Notes* Telephone Encounter - Sofi Carrion RN - 06/07/2023 3:45 PM EST Renee with [facility] calls to go over POC [...] Dr. Ezequiel Carrion, RN [facility]2024 NoteHNO ID: [id number] Author: SEDA QUIROZ APRN.MANAGER CALL Service: ? Author Type: Nurse Practitioner Type: [...] really hard time sitting in the car. [place] that the car was caving in on [...] myocardial infarction of lateral wall (HCC) 04/04/2022 [facility] Cerebellar mass 1995 mass versus infarct [...] AND/TRANSPOS MEDIAN NRV CARPAL TUNNE Left 08/30/2009 [facility] PAST SURGICAL HISTORY OF 05/30/2019 C5-[address] Grace Long PT ED HEART AND VASCULAR Cardiac Stent [facility] 04/04/22 S PROBE PERC LUMBAR DISCECTOMY 04/2000 [facility] Current Outpatient Medications Medication Sig Dispense Refill [...] tablet 3 escitalopram o (more content not included)...[facility] 05-14-2023 History of Present illness Narrative* Seda Quiroz, MONOGRAM OPERATOR.MANAGER CALL - 05/14/2023 9:02 AM EST FOLLOW UP [...] really hard time sitting in the car. [place] that the car was caving in on [...] Date Acute myocardial infarction of lateral wall ([facility]) 04/04/2022 [facility] Cerebellar mass 1995 mass versus infarct Cervical cord compression with myelopathy ([facility]) 05/28/2019 Depression 04/11/2015 Disc degeneration, lumbar 2000 [...] region 12/05/2015 Stage 3b chronic kidney disease ([facility]) 12/04/2021 Type 2 diabetes mellitus without complication ([facility]) 03/02/2016 PAST SURGICAL HISTORY Procedure Laterality Date ANTERIOR DISKECTOMY, CERVICAL, EACH ADDL 05/30/2019 ACDF C5-6 - anterior cervical discectomy and arthrodesis ARTHRP KNE CONDYLE&PLATU MEDIAL&LAT COMPARTMENTS Left 01/14/2018 COLONOSCOPY AND BIOPSY 09/02/2017 Dr. ivet HAGER 01/23/2021 KNEE ARTHROSCOP MENISCUS REPAIR MED/LAT Left 06/22/2016 partial medial meniscectomy LUMBAR OR CAUDAL EPIDURAL INJECTION 01/2017 multiple since 2014. NEUROPLASTY &/TRANSPOS MEDIAN NRV CARPAL TUNNE Left 08/30/2009 [facility] PAST SURGICAL HISTORY OF 05/30/2019 C5-[address] Grace Long PT ED HEART AND VASCULAR Cardiac Stent [facility] 04/04/22 S PROBE PERC LUMBAR DISCECTOMY 04/2000 [facility] Current Outpatient Medications Medication Sig Dispense Refill [...] REVIEWED: Psychiatric scales, Electronic medical record, and Science Editor notes DIAGNOSIS: Bipolar disorder, currently depressed, moderate [...] which included preparing to see the patient, [id number] patient care, completing clinical documentation, obtaining and/or [...] 2023 TIME: 9:03 AM documented in this encounterCrystal Clinic [facility] Center11-28-2023 NoteHNO ID: [id number] Author: Seda Quiroz APRN.CNP Service: ? Author [...] struggling with shortness of breath. Saw her kettleman and was notified that her lung function was normal. Has been following up with her reo asset manager. Had to take Nitro due to chest [...] Date Acute myocardial infarction of lateral wall ([facility]) 04/04/2022 [facility] Cerebellar mass 1995 mass versus infarct Cervical cord compression with myelopathy ([facility]) 05/28/2019 Depression 04/11/2015 Disc degeneration, lumbar 2000 [...] region 12/05/2015 Stage 3b chronic kidney disease ([facility]) 12/04/2021 Type 2 diabetes mellitus without complication ([facility]) 03/02/2016 PAST SURGICAL HISTORY Procedure Laterality Date ANTERIOR DISKECTOMY, CERVICAL, EACH ADDL 05/30/2019 ACDF C5-6 - anterior cervical discectomy and arthrodesis ARTHRP KNE CONDYLEANDPLATU MEDIALANDLAT COMPARTMENTS Left 01/14/2018 COLONOSCOPY AND BIOPSY 09/02/2017 Dr. cooney EGPhil 01/23/2021 KNEE ARTHROSCOP MENISCUS REPAIR MED/LAT Left 06/22/2016 partial medial meniscectomy LUMBAR OR CAUDAL EPIDURAL INJECTION 01/2017 multiple since 2014. NEUROPLASTY AND/TRANSPOS MEDIAN NRV CARPAL TUNNE Left 08/30/2009 [facility] PAST SURGICAL HISTORY OF 05/30/2019 C5-[address] Grace Long PT ED HEART AND VASCULAR Cardiac Stent [facility] 04/04/22 S PROBE PERC LUMBAR DISCECTOMY 04/2000 [facility] Current Outpatient Medications Medication Sig Dispense Refill [...] Take 1 tablet by (more content not included)...[facility]11-28-2023 History of Present illness Narrative* Seda Quiroz, MONOGRAM OPERATOR.MANAGER CALL - 04/02/2023 2:10 PM EST FOLLOW UP [...] struggling with shortness of breath. Saw her kettleman and was notified that her lung function was normal. Has been following up with her reo asset manager. Had to take Nitro due to chest [...] PATIENT DATA: Generalized Anxiety Disorder Scale (ELKIN-7) LEKIN - 7 SCORES 08/22/2022 01/15/2023 04/02/2023 ELKIN-7 [...] myocardial infarction of lateral wall (HCC) 04/04/2022 [facility] Cerebellar mass 1995 mass versus infarct [...] 12/04/2021 Type 2 diabetes mellitus without complication ([facility]) 03/02/2016 PAST SURGICAL HISTORY Procedure Laterality Date ANTERIOR DISKECTOMY, CERVICAL, EACH ADDL 05/30/2019 ACDF C5-6 - anterior cervical discectomy and arthrodesis ARTHRP KNE CONDYLE&PLATU MEDIAL&LAT COMPARTMENTS Left 01/14/2018 COLONOSCOPY AND BIOPSY 09/02/2017 Dr. cooney EGD 01/23/2021 KNEE ARTHROSCOP MENISCUS REPAIR MED/LAT Left 06/22/2016 partial medial meniscectomy LUMBAR OR CAUDAL EPIDURAL INJECTION 01/2017 multiple since 2014. NEUROPLASTY &/TRANSPOS MEDIAN NRV CARPAL TUNNE Left 08/30/2009 [facility] PAST SURGICAL HISTORY OF 05/30/2019 C5-[address] Grace Long PT ED HEART AND VASCULAR Cardiac Stent [facility] 04/04/22 S PROBE PERC LUMBAR DISCECTOMY 04/2000 [facility] Current Outpatient Medications Medication Sig Dispense Refill [...] which included preparing to see the patient, [id number] patient care, completing clinical documentation, obtaining and/or [...] 2023 TIME: 2:10 PM documented in this encounterCrystal Clinic Orthopedic Center11-14-2023 Miscellaneous Notes* Telephone Encounter - Michelle Sanchez [...] in for last apt. documented in this encounterCrystal Clinic Orthopedic Center11-10-2023 NoteHNO ID: [id number] Author: Marta Mosqueda RT(R) Service: ? Author [...] BY: RT Arias(R) March 15, 2023 1:[address] [facility]11-06-2023 Miscellaneous Notes* Telephone Encounter - Gricelda [...] you. Gricelda Duckworth LPN. documented in this encounterCrystal Clinic Orthopedic Center11-02-2023 NoteHNO ID: [id number] Author: Aron Brothers Service: ? Author Type: [...] to RTC in 3-4 months. Aron Brothers [facility]11-02-2023 NoteHNO ID: [id number] Author: Pepper Estrada LPN Service: ? Author Type: LICENSED NURSE Type: Progress Notes Filed: 03/08/2023 10:31 PM Note Text: AMB ROOMING INTAKE FLOWSHEET DATA Patient presents with: Left Foot - Established Patient, Diabetic Foot Care Right Foot - Established Patient, Diabetic Foot Care Pepper Estrada [facility]11-01-2023 NoteHNO ID: [id number] Author: Jericho Nieves MD Service: ? Author Type: Physician Type: Progress Notes Filed: 03/06/2023 12:34 PM Note Text: This note was created using [email or web address]. Subjective Juan Eagle is a 58 year old female. She's been dealing with right wrist pain for about 2 months, with no injury. She reported taking up to 12 ibuprofen per day. Pain was worse with movement. Bracing helped some. X rays showed no acute findings. Her joints have been hurting more in general. 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 [place], so had been off Humira for more [...] Mellitus With Stage 3a Chronic Kidney Disease ([facility]) Mixed Hyperlipidemia Jose On Cpap Radiculopathy, Lumbar Region Postlaminectomy Syndrome Ddd (Degenerative Disc Disease), Lumbar Edema Class 3 Severe Obesity With Body Mass Index (Bmi) of 50.0 to 59.9 in Adult ([facility]) Persistent Headaches S/P Cervical Spinal Fusion Tobacco Use Disorder Moderate Persistent Asthma Without Complication Psoriatic Arthritis ([facility]) Irritable Bowel Syndrome With Diarrhea Stage 3a Chronic Kidney Disease ([facility]) Coronary Artery Disease Involving [place] Coronary Artery of [place] Heart Without Angina Pectoris St Elevation Myocardial [...] Status: She is aler (more content not included)...[facility]11-01-2023 History of Present illness Narrative* Jericho Nieves MD - 03/06/2023 11:16 AM EDT This note was created using [employer]. Subjective Juan Eagle is a 58 year old female. She's been dealing with right wrist pain for about 2 months, with no injury. She reported taking up to 12 ibuprofen per day. Pain was worse with movement. Bracing helped some. X rays showed no acute findings. Her joints have been hurting more in general. 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 so [facility] been [facility] [...] Mellitus With Stage 3a Chronic Kidney Disease ([facility]) Mixed Hyperlipidemia Jose On Cpap Radiculopathy, Lumbar Region Postlaminectomy Syndrome Ddd (Degenerative Disc Disease), Lumbar Edema Class 3 Severe Obesity With Body Mass Index (Bmi) of 50.0 to 59.9 in Adult ([facility]) Persistent Headaches S/P Cervical Spinal Fusion Tobacco Use Disorder Moderate Persistent Asthma Without Complication Psoriatic Arthritis ([facility]) Irritable Bowel Syndrome With Diarrhea Stage 3a Chronic Kidney Disease ([facility]) Coronary Artery Disease Involving [place] Coronary Artery of [place] Heart Without Angina Pectoris St Elevation Myocardial Infarction Involving Left Circumflex Coronary Artery ([facility]) Ischemic Cardiomyopathy Encounter for Long-Term (Current) Use of Medications Bipolar Disorder ([facility]) Ptsd (Post-Traumatic Stress Disorder) Dyskinesia, Tardive [...] UR Jericho Nieves MD documented in this encounterCrystal Clinic Orthopedic Center10-18-2023 Miscellaneous Notes* Telephone Encounter - Michelle Sanchez [...] Covid exposure Next: NA documented in this encounterCrystal Clinic Orthopedic Center09-18-2023 NoteHNO ID: [id number] Author: Jamilah Hampton PA-C Service: ? Author Type: Physician Front Office Manager Type: Progress Notes Filed: 01/21/2023 1:28 PM Note Text: Patient: Juan Eagle PCP: Jericho Nieves MD CC: follow up HPI: Juan Eagle 57 year old morbidly obese female current 88-upsy-ofly smoker with PMH significant for GERD, HLD, JOSE on CPAP, DM2, ND in March 2022 coded 3 times s/p [...] all sleep. DME: Medical Service. Follow with [facility]. PAST MEDICAL HISTORY Diagnosis Date Acute myocardial infarction of lateral wall ([facility]) 04/04/2022 [facility] Cerebellar mass 1995 mass versus infarct Cervical cord compression with myelopathy ([facility]) 05/28/2019 Depression 04/11/2015 Disc degeneration, lumbar 2000 [...] 12/04/2021 Type 2 diabetes mellitus without complication ([facility]) 03/02/2016 Allergies: Codeine Other: See Comments Comment: [...] Grandmother PAST SURGICAL HISTOR (more content not included)...[facility] 01-21-2023 History of Present illness Narrative* Jamilah Hampton PA-C - 01/21/2023 12:59 PM EDT Images from the original note were not included. Patient: Juan Eagle PCP: Jericho Nieves MD CC: follow up HPI: Juan Eagle 57 year old morbidly obese female current 54-lrob-gieo smoker with PMH significant for GERD, HLD, JOSE on CPAP, DM2, ND in March 2022 coded 3 times s/p [...] all sleep. DME: Medical Service. Follow with [facility]. PAST MEDICAL HISTORY Diagnosis Date Acute myocardial infarction of lateral wall (HCC) 04/04/2022 [facility] Cerebellar mass 1995 mass versus infarct [...] &/TRANSPOS MEDIAN NRV CARPAL TUNNE Left 08/30/2009 [facility] PAST SURGICAL HISTORY OF 05/30/2019 C5-[address] Grace Long PT ED HEART AND VASCULAR Cardiac Stent [facility] 04/04/22 S PROBE PERC LUMBAR DISCECTOMY 04/2000 [facility] I reviewed the past medical history, family [...] obstruction Imaging / Diagnostic Studies: CXR 03/2022 [facility] reviewed showing bilateral hazy opacities without [...] necessary. Jamilah Hampton PA-C documented in this encounterCrystal Clinic Orthopedic Center09-12-2023 Miscellaneous Notes* Telephone Encounter - Seda Quiroz APRN.CNP - 01/15/2023 12:14 PM EDT Medication sent to [facility]. * Telephone Encounter - Michelle Sanchez LPN - 01/15/2023 10:54 AM EDT [facility] does have this medication in stock, Patient aware you will send there. * Telephone Encounter - Elham Graves LPN - 01/15/2023 10:24 AM EDT [facility] calls to report that Ingrezza is a specialty medication and [facility] cannot getthat med. Will need to try somewhere else. Elham Graves LPN documented in this encounterCrystal Clinic Orthopedic Center09-12-2023 NoteHNO ID: [id number] Author: Cassie Kendrick RT(R) Service: Radiology Author [...] BY: RT Davin(R) January 15, 2023 9:25 [facility]09-12-2023 NoteHNO ID: [id number] Author: Fidel Bazan APRN.MANAGER CALL Service: ? Author Type: Nurse Practitioner Type: [...] myocardial infarction of lateral wall (HCC) 04/04/2022 [facility] Cerebellar mass 1995 mass versus infarct [...] AND/TRANSPOS MEDIAN NRV CARPAL TUNNE Left 08/30/2009 [facility] PAST SURGICAL HISTORY OF 05/30/2019 C5-[address] Grace Long PT ED HEART AND VASCULAR Cardiac Stent [facility] 04/04/22 S PROBE PERC LUMBAR DISCECTOMY 04/2000 [facility] ALLERGIES Codeine, Seroquel [Quetiapine], Vraylar [Cariprazine], Dilaudid [...] Sister Hypertension Sister B (more content not included)...[facility]09-12-2023 NoteHNO ID: [id number] Author: Seda Quiroz APRN.MANAGER CALL Service: ? Author Type: Nurse Practitioner Type: [...] referral for the patient to contact in [place]. Follow up in 4 weeks. Medication Update: [...] Homicidal Ideations: No homicidal (more content not included)...[facility]09-12-2023 Instructions* Patient Instructions* Seda Quiroz, LEONELA.[facility] - 01/15/2023 9:08 AM EDT Aziza Pearson, [...] - Call the National Suicide Hotline at 9-116-RKJJXMF ( ) or 6-656-208-TALK (6485) - Text 4HOPE to 729763 Medication Update: Lamictal 200 mg - take 1/2 tablet in the morning and 1 tablet in the evening. Ingrezza 40 mg - take 1 capsule every morning. Continue the rest of your psychiatric medications at the same dose. Next appointment: February 12 at 9:30 am in person -- You may call the department appointment line at [phone] to schedule your appointment. -- Please call my nurse Michelle at [phone] or send me a message in [place] with any questions or concerns between appointments. documented in this encounterCrystal Clinic Orthopedic Center09-12-2023 History of Present illness Narrative* Seda Quiroz [...] referral for the patient to contact in [place]. Follow up in 4 weeks. Medication Update: [...] which included preparing to see the patient, [id number]-[id number] patient care, completing clinical documentation, and counseling and educating the patient/family/caregiver, ordering medications/labs. Seda Quiroz APRN.DAYANARA January 15, 2023 8:23 AM This note was partially generated using [employer] voice recognition system. Note was reviewed for accuracy. There may be minor misspellings or grammar miscues with [employer] voice recognition. documented in this encounterCrystal Clinic Orthopedic Center08-01-2023 NoteHNO ID: [id number] Author: Aron Brothers Service: ? Author Type: [...] myocardial infarction of lateral wall (HCC) 04/04/2022 [facility] Cerebellar mass 1995 mass versus infarct [...] AND/TRANSPOS MEDIAN NRV CARPAL TUNNE Left 08/30/2009 [facility] PAST SURGICAL HISTORY OF 05/30/2019 C5-[address] Grace Long PT ED HEART AND VASCULAR Cardiac Stent [facility] 04/04/22 S PROBE PERC LUMBAR DISCECTOMY 04/2000 [facility] FAM (more content not included)...[facility]08-01-2023 NoteHNO ID: [id number] Author: Pepper Estrada LPN Service: ? Author Type: LICENSED NURSE Type: Progress Notes Filed: 12/05/2022 6:45 AM Note Text: AMB ROOMING INTAKE FLOWSHEET DATA Patient presents with: Left Foot - Established Patient, Diabetic Foot Care Right Foot - Established Patient, Diabetic Foot Care [facility]08-01-2023 Instructions* Patient Instructions* Aron Brothers - [...] (or decreased sensation in your feet) a sports marketing specialist should always cut your toenails. Be Careful [...] Go to your health care provider or sports marketing specialist to treat these conditions. documented in this encounterCrystal Clinic Orthopedic Center08-01-2023 History of Present illness Narrative* Aron Brothers [...] Date Acute myocardial infarction of lateral wall ([facility]) 04/04/2022 [facility] Cerebellar mass 1995 mass versus infarct Cervical cord compression with myelopathy ([facility]) 05/28/2019 Depression 04/11/2015 Disc degeneration, lumbar 2000 [...] 12/04/2021 Type 2 diabetes mellitus without complication ([facility]) 03/02/2016 Current Outpatient Medications Medication Sig dulaglutide [...] &/TRANSPOS MEDIAN NRV CARPAL TUNNE Left 08/30/2009 [facility] PAST SURGICAL HISTORY OF 05/30/2019 C5-[address] Grace Long PT ED HEART AND VASCULAR Cardiac Stent [facility] 04/04/22 S PROBE PERC LUMBAR DISCECTOMY 04/2000 [facility] FAMILY HISTORY Problem Relation Age of Onset [...] Objective: Patient presents to clinic ambulating in [facility] Constitutional: Pt is a well developed [...] with diabetes mellitus due to underlying condition ([facility]) (primary encounter diagnosis) (L84) Callus of foot [...] Care Pepper Estrada LPN documented in this encounterCrystal Clinic Orthopedic Center07-14-2023 Miscellaneous Notes* Telephone Encounter - Braxton Sethi [...] a letter and it needs faxed to [phone]. Sofi Carrion RN documented in this encounterCrystal Clinic Orthopedic Center07-05-2023 NotePatient Outreach (INTMMN) JUAN EAGLE ([id number]) 1965 F CHT Date Time Provider Department [...] Reviewed: 08/28/2022 Reviewed by: Joanna Arce APRN.MANAGER CALL - Fully Assessed Visit Diagnosis:Encounter for screening mammogram for breast cancer [Z12.31] Order(s):[facility] SCREENING [[id number]] Order #: [id number] FUTURE Prescriptions as of 11/12/2022 - dulaglutide [...] (HCC) [N18.31] 12/04/2021 Coronary artery disease involving iliamna andre*04/11/2022 ST elevation myocardial infarction involving le*04/11/2022 Ventricular fibrillation (HCC) [I49.01] 04/11/2022 08/28/2022 Ischemic cardiomyopathy [I25.5] 04/11/2022 Encounter for long-term (current) use of medica*07/01/2022 Bipolar disorder (HCC) [F31.9] 07/01/2022 PTSD (post-traumatic stress disorder) [F43.10] 07/01/2022 Dys (more content not included)...[facility]05-18-2023 NoteHNO ID: [id number] Author: Seda Quiroz APRN.MANAGER CALL Service: ? Author Type: Nurse Practitioner Type: [...] visit. Either the patient or their legal representative phlebotomy services has been informed of the risks [...] which included preparing to see the patient, klud-tj-ovdx patient care, completing clinical documentation, and counseling and educating the patient/family/caregiver, ordering medications/labs. Seda Quiroz APRN.MANAGER CALL September 20, 2022 10:20 AM This note was partially generated using [employer] voice recognition system. Note was reviewed for accuracy. There may be minor misspellings or grammar miscu (more content not included)...[facility]04-26-2023 Miscellaneous Notes* Telephone Encounter - Gricelda Duckworth LPN - 08/29/2022 9:20 AM EDT Below results left on identified vm. Gricelda Duckworth LPN * Telephone Encounter - Gricelda Duckworth LPN - 08/29/2022 9:17 AM EDT ----- Message from Joanna Arce APRN.MANAGER CALL sent at 08/29/2022 8:41 AM EDT ----- Please let the patient know HgbA1c was 5.7, diabetes well controlled. Kidney function stable. The rest of her labs were within acceptable limits documented in this encounterCrystal Clinic Orthopedic Center04-25-2023 NoteHNO ID: [id number] Author: Joanna Arce APRN.DAYANARA Service: ? Author [...] myocardial infarction of lateral wall (HCC) 04/04/2022 [facility] Cerebellar mass 1995 mass versus infarct Cervical cord compression with myelopathy ([facility]) 05/28/2019 Depression 04/11/2015 Disc degeneration, lumbar 2000 [...] 12/04/2021 Type 2 diabetes mellitus without complication ([facility]) 03/02/2016 PAST SURGICAL HISTORY Procedure Laterality Date ANTERIOR DISKECTOMY, CERVICAL, EACH ADDL 05/30/2019 ACDF C5-6 - anterior cervical discectomy and arthrodesis ARTHRP KNE CONDYLEANDPLATU MEDIALANDLAT COMPARTMENTS Left 01/14/2018 COLONOSCOPY AND BIOPSY 09/02/2017 Dr. cooney EGD 01/23/2021 KNEE ARTHROSCOP MENISCUS REPAIR MED/LAT Left 06/22/2016 partial medial meniscectomy LUMBAR OR CAUDAL EPIDURAL INJECTION 01/2017 multiple since 2014. NEUROPLASTY AND/TRANSPOS MEDIAN NRV CARPAL TUNNE Left 08/30/2009 [facility] PAST SURGICAL HISTORY OF 05/30/2019 C5-[address] Grace Long PT ED HEART AND VASCULAR Cardiac Stent [facility] 04/04/22 S PROBE PERC LUMBAR DISCECTOMY 04/2000 [facility] ALLERGIES Codeine, Seroquel [Quetiapine], Vraylar [Cariprazine], Dilaudid [...] 1 Inhalation as instruct (more content not included)...[facility] 08-23-2022 NoteHNO ID: [id number] Author: Seda Quiroz APRN.[facility] Service: ? Author Type: Nurse Practitioner Type: [...] visit. Either the patient or their legal representative phlebotomy services has been informed of the risks [...] and Lamictal at the same dose. 3. Assistant Tennis Professional Dr. Savage consulted about restarting benzodiazepines. He [...] ideation, intent or plan (more content not included)...[facility]04-20-2023 Instructions* Patient Instructions* Seda Quiroz APRN.CNP - [...] - Call the National Suicide Hotline at 5-676-YJOFWXO ( ) or 5-496-008-TALK (7162) - Text 4HOPE to 633188 Medication Update: Lamictal 200 mg - take 1 tablet once daily. Continue the other psychiatric medications at the same dose. Next appointment: September 20 at 10:30 am Virtual -- Please call my nurse Michelle at [phone] or send me a message in [place] with any questions or concerns between appointments. documented in this encounterCrystal Clinic Orthopedic Center04-20-2023 History of Present illness Narrative* Seda Quiroz [...] visit. Either the patient or their legal representative phlebotomy services has been informed of the risks and benefits of -- and alternatives to -- treatment through a remote evaluation andconsents to proceed with the evaluation remotely. HPI: Juan Eagel is a 57 year old Female with a history of Bipolar disorder, Panic disorder, PTSD, and TD presenting today for follow-up. Date of last visit: 06/22/2022 Plan from last visit: 1. Restart Ambien to help with her sleep difficulties. 2. Okay to continue Lexapro and Lamictal at the same dose. 3. Assistant Tennis Professional Dr. Savage consulted about restarting benzodiazepines. He [...] which included preparing to see the patient, cshb-zv-wfyx patient care, completing clinical documentation, and counseling and educating the patient/family/caregiver, ordering medications/labs. Seda Quiroz APRN.DAYANARA August 23, 2022 8:03 AM This note was partially generated using [employer] voice recognition system. Note was reviewed for accuracy. There may be minor misspellings or grammar miscues with [employer] voice recognition. documented in this encounterCrystal Clinic Orthopedic Center03-17-2023 NoteHNO ID: [id number] Author: FLASH Caceres Service: ? Author Type: Respiratory Therapist Type: Progress Notes Filed: 07/20/2022 3:28 PM Note Text: PULM FUNCTION SMARTBLOCK: Provider: Talia Tineo MD Assisting Tech: FLASH Caceres Spirometry: [facility] History of Present illness Narrative* FLASH Caceres - 07/20/2022 3:15 PM EDT PULM FUNCTION SMARTBLOCK: Provider: Talia Tineo MD Assisting Tech: FLASH Caceres Spirometry: 1 documented in this encounterCrystal Clinic Orthopedic Center03-16-2023 NoteHNO ID: [id number] Author: Talia Tineo MD Service: ? Author Type: Physician Type: Progress Notes Filed: 07/19/2022 4:06 PM Note Text: . Respiratory Anthony Note Patient name: Juan Eagle PCP: Jericho Nieves MD CC: Shortness of breath HPI: Juan Eagle 57 year old morbidly obese female current 93-ekif-zzqw smoker with PMH significant for GERD, HLD, JOSE on CPAP, DM2, psoriatic arthritis and asthma, former patient of Dr. Christensen, new to al. Current therapy consists of Breo Ellipta and as needed albuterol. No issues with her Breo Ellipta. Has had relatively good control of her asthma until recently. Status post ND at the end of March, coded 3 [...] eosinophilia Imaging / Diagnostic Studies: CXR 03/2022 [facility] reviewed showing bilateral hazy opacities without pleural effusions consistent with pulmonary edema Echocardiogram with ejection fraction 60%, grade 3 diastolic dysfunction and mild pulmonary hypertension PAST MEDICAL HISTORY Diagnosis Date Acute myocardial infarction of lateral wall ([facility]) 04/04/2022 [facility] Cerebellar mass 1995 mass versus infarct Cervical cord compression with myelopathy ([facility]) 05/28/2019 Depression 04/11/2015 Disc degeneration, lumbar 2000 [...] region 12/05/2015 Stage 3b chronic kidney disease ([facility]) 12/04/2021 Type 2 diabetes mellitus without complication ([facility]) 03/02/2016 ALLERGIES Allergen Reactions Codeine Other: See [...] nostril once daily. albuterol (more content not included)...[facility]03-16-2023 History of Present illness Narrative* Talia Tineo MD - 07/19/2022 2:45 PM EDT Images from the original note were not included. . Respiratory Anthony Note Patient name: Juan Eagle PCP: Jericho Nieves MD CC: Shortness of breath HPI: Juan Eagle 57 year old morbidly obese female current 29-eevs-hhji smoker with PMH significant for GERD, HLD, JOSE on CPAP, DM2, psoriatic arthritis and asthma, former patient of Dr. Christensen, new to me. Current therapy consists of Breo Ellipta and as needed albuterol. No issues with her Breo Ellipta. Has had relatively good control of her asthma until recently. Status post ND at the end of March, coded 3 [...] eosinophilia Imaging / Diagnostic Studies: CXR 03/2022 [facility] reviewed showing bilateral hazy opacities without pleural effusions consistent withpulmonary edema Echocardiogram with ejection fraction 60%, grade 3 diastolic dysfunction and mild pulmonary hypertension PAST MEDICAL HISTORY Diagnosis Date Acute myocardial infarction of lateral wall (HCC) 04/04/2022 [facility] Cerebellar mass 1995 mass versus infarct Cervical cord compression with myelopathy ([facility]) 05/28/2019 Depression 04/11/2015 Disc degeneration, lumbar 2000 [...] 12/04/2021 Type 2 diabetes mellitus without complication ([facility]) 03/02/2016 ALLERGIES Allergen Reactions Codeine Other: See [...] &/TRANSPOS MEDIAN NRV CARPAL TUNNE Left 08/30/2009 [facility] PAST SURGICAL HISTORY OF 05/30/2019 C5-[address] Grace Long PT ED HEART AND VASCULAR Cardiac Stent [facility] 04/04/22 S PROBE PERC LUMBAR DISCECTOMY 04/2000 [facility] PMH, Social history, family history and surgical [...] poor control of asthma 4. Cigarette smoker -72-wapz-lito smoker without sequelae of COPD -Smoking cessation recommended -PCP already referred patient to lung cancer screening clinic Talia Tineo MD Respiratory Anthony documented in this encounterC[facility]23 Miscellaneous Notes* Telephone Encounter - Michell Devries [...] advise. Jamilah Gotti Pss documented in this encounterCrystal Clinic [facility]02-23-2023 Miscellaneous Notes* Telephone Encounter - Lorene Cespedes [...] LVM with detailed message. documented in this encounterCrystal Clinic [facility] Center02-17-2023 Miscellaneous Notes* Telephone Encounter - Michelle Sanchez LPN - 06/22/2022 3:42 PM EST Nurse from behavioral health did not contact patient. * Telephone Encounter - Aisha Stovall - 06/22/2022 3:30 PM EST Patient is returning a call she received from nurse Loaiza. Please contact the patient again. documented in this encounterCrystal Clinic [facility]opedic Center02-17-2023 NoteHNO ID: [id number] Author: Seda Quiroz APRN.[facility] Service: ? Author Type: Nurse Practitioner Type: [...] she was in the car driving to [place]. She continues to take Lexapro and Lamictal. [...] Vrylar (TD). She was on the [employer]. [place] that it helped with TD for the [...] 05/26/2015 Obesity due to excess calories 05/26/2015 OJSE on CPAP 05/26/2015 Pain in joint, multiple [...] AND/TRANSPOS MEDIAN NRV CARPAL TUNNE Left 08/30/2009 [facility] PAST SURGICAL HISTORY OF 05/30/2019 C5-[address] Grace Long S PROBE PERC LUMBAR DISCECTOMY 04/2000 [facility] Current Outpatie (more content not included)...[facility] 06-22-2022 Instructions* Patient Instructions* Seda Quiroz APRN.DAYANARA [...] message or call. Best, Seda Quiroz APRN.MANAGER CALL PLAN AND FOLLOW UP: YOU SHOULD SEEK [...] - Call the National Suicide Hotline at 2-293-GXLRJLU ( ) or 7-611-625-TALK (4547) - Text 8FUGV to 191960 Medication Update: - Restart Ambien 10 mg - take 1 tablet at bedtime to help with sleep. - Continue Lexapro and Lamictal at the same dose. Other: I left a message with your Assistant Tennis Professional's nurse Disha. She will fax over the latest EKG results from May so you don't have to do the EKG. She will call me back after speaking with Dr. Savage aboutthe medications. Next appointment: --Schedule in 3 to 4 weeks or sooner if needed -- You may call the department appointment line at [phone] to schedule your appointment. -- Please call my nurse Michelle at [phone] or send me a message in [place] with any questions or concerns between appointments. documented in this encounterCrystal Clinic [facility] Center02-17-2023 History of Present illness Narrative* Seda Quiroz [...] when shewas in the car driving to [place]. She continues to take Lexapro and Lamictal. [...] Vrylar (TD). She was on the [employer]. [place] that it helped with TD for the [...] &/TRANSPOS MEDIAN NRV CARPAL TUNNE Left 08/30/2009 [facility] PAST SURGICAL HISTORY OF 05/30/2019 C5-[address] Grace Long S PROBE PERC LUMBAR DISCECTOMY 04/2000 [facility] Current Outpatient Medications Medication Sig Dispense Refill [...] engaged in therapy 4 years ago. Current Core Sticker: No Last Hospitalization: None ECT: No Previous [...] history of use or dependence SPIRITUALITY: [facility]: Juan Eagle is the 2nd of 5 siblings. The patient was born and raised in [place], [place]. She completed High school, Technical. She [...] and Lamictal at the same dose. 3. Assistant Tennis Professional Dr. Savage consulted about restarting benzodiazepines. He [...] which included preparing to see the patient, [id number] patient care, completing clinical documentation, obtaining and/or [...] 8:31 AM PAGER : documented in this encounterCrystal Clinic [facility] Center2023 History of Present illness Narrative* Joanna Arce [...] &/TRANSPOS MEDIAN NRV CARPAL TUNNE Left 08/30/2009 [facility] PAST SURGICAL HISTORY OF 05/30/2019 C5-[address] Grace Long S PROBE PERC LUMBAR DISCECTOMY 04/2000 [facility] ALLERGIES Codeine, Seroquel [Quetiapine], Vraylar [Cariprazine], Dilaudid [...] psychiatrist. She is interested in seeing [facility] polysomnograph tech. - CONSULT TO PSYCHIATRY 2. Insomnia, unspecified type - ICD9: 780.52, ICD10: G47.00 See above. Increase Elavil to 50 mg at bedtime 3. Panic anxiety syndrome - ICD9: 300.01, ICD10: F41.0 See above. 4. Coronary artery disease involving iliamna coronary artery of iliamna heart without angina pectoris- ICD9: 414.01, ICD10: [...] plan. Joanna Arce APRN.DAYANARA documented in this encounterCrystal Clinic [facility] Center12-08-2022 Miscellaneous Notes* Telephone Encounter - Aga Silveira LPN - 04/12/2022 12:26 PM EST After appt 04/11/22 pcp is asking for med profile from [facility] and [employer]. Called [facility]. They are not able to do this. Pt will need to come to their store and request this. Message left to pt with this info Called [facility]. Message left with same request. documented in this encounterCrystal Clinic Orthopedic Center12-07-2022 History of Present illness Narrative* Jericho Nieves MD - 04/11/2022 4:41 PM EST This note was created using NoteWriter. Subjective Transitional Care Management Progress Note The patients TCM visit was performed within the 7 days of discharge. Patient's Date of discharge: 04/06/2022 Date of initial coordinator contact after discharge: 04/09/2022 Discharge diagnosis: Acute ND. Cardiac arrest. Medication review completed Yes Jericho [...] (Bmi) of 50.0 to 59.9 in Adult ([facility]) Persistent Headaches S/P Cervical Spinal Fusion Tobacco Use Disorder Moderate Persistent Asthma Without Complication Psoriatic Arthritis (Hcc) Irritable Bowel Syndrome With Diarrhea Stage 3a Chronic Kidney Disease ([facility]) Coronary Artery Disease Involving [place] Coronary Artery of [place] Heart Without Angina Pectoris St Elevation Myocardial Infarction Involving Left Circumflex Coronary Artery ([facility]) Ventricular Fibrillation (Hcc) Ischemic Cardiomyopathy PAST SURGICAL [...] &/TRANSPOS MEDIAN NRV CARPAL TUNNE Left 08/30/2009 [facility] PAST SURGICAL HISTORY OF 05/30/2019 C5-[address] Grace Long S PROBE PERC LUMBAR DISCECTOMY 04/2000 [facility] Social History Tobacco Use Smoking status: Every [...] I49.01 - In the setting of acute ND. 3. Coronary artery disease involving iliamna coronary artery of iliamna heart without angina pectoris- ICD9: 414.01, ICD10: [...] recommendations. Jericho Nieves MD documented in this encounterCrystal Clinic [facility] Center12-07-2022 History of Past illness Narrative* Problem [...] of this encounter (statuses as of 08/29/2022) [facility] History of Past illness Narrative* Problem [...] of this encounter (statuses as of 11/12/2022) [facility] History of Past illness Narrative* Problem [...] of this encounter (statuses as of 11/16/2022) [facility] History of Past illness Narrative* Problem [...] of this encounter (statuses as of 12/05/2022) [facility] History of Past illness Narrative* Problem [...] of this encounter (statuses as of 01/15/2023) [facility] History of Past illness Narrative* Problem [...] of this encounter (statuses as of 01/15/2023) [facility] History of Past illness Narrative* Problem [...] of this encounter (statuses as of 01/21/2023) [facility] History of Past illness Narrative* Problem [...] of this encounter (statuses as of 02/09/2023) [facility] History of Past illness Narrative* Problem [...] of this encounter (statuses as of 02/13/2023) [facility] History of Past illness Narrative* Problem [...] of this encounter (statuses as of 02/20/2023) [facility] History of Past illness Narrative* Problem [...] of this encounter (statuses as of 03/06/2023) [facility] History of Past illness Narrative* Problem [...] of this encounter (statuses as of 03/12/2023) [facility] History of Past illness Narrative* Problem [...] of this encounter (statuses as of 03/20/2023) [facility] History of Past illness Narrative* Problem [...] of this encounter (statuses as of 04/08/2023) [facility] History of Past illness Narrative* Problem [...] of this encounter (statuses as of 05/20/2023) [facility] History of Past illness Narrative* Problem [...] of this encounter (statuses as of 06/08/2023) [facility] History of Past illness Narrative* Problem [...] of this encounter (statuses as of 06/10/2023) [facility] History of Past illness Narrative* Problem [...] of this encounter (statuses as of 06/11/2023) [facility] History of Past illness Narrative* Problem [...] of this encounter (statuses as of 06/12/2023) [facility] History of Past illness Narrative* Problem [...] of this encounter (statuses as of 06/15/2023) [facility] History of Past illness Narrative* Problem [...] of this encounter (statuses as of 06/16/2023) [facility] History of Present illness Narrative* Brigette Fregoso LPN - 04/09/2022 3:16 PM EST TRANSITION CARE MANAGEMENT (TCM) INITIAL CONTACT Computer Publisher Outreach Provider Action/FYI: Apt has been scheduled Initial contact with patient post discharge, spoke to patient. Patient identified by name and . TRANSITION CARE MANAGEMENT INITIAL OUTREACH DOCUMENTATION: Date of Outreach: 04/09/2022 Outreach Attempt 1: Contact Made Date of Discharge 04/06/2022 Some recent data might be hidden SUMMARY: -Pt discharged from [facility] on 04/06/22. -Admitted for: heart attack [...] home? Yes Medical records from recent hospitalization: [facility] has records if not received documented in this encounterCrystal Clinic [facility] Center11-03-2022 Hospital Discharge instructions Patient Education 03/08/2022 [...] leg Difficulty speaking, swallowing or walking Seizure [id number] [employer]. [address] [place] [address]. All rights reserved. This information is not intended as a substitute for professional medical care. Always follow yourhealthcare professional's instructions. Follow Up Care 03/08/2022 15:34:05 With:JERICHO NIEVES MD Address: [address] [place] [address]- When:2-4 days [facility] 11-03-2022 Emergency department Discharge summary Discharge Instructions Thank you for allowing [facility] to assist you with your healthcare needs. The following is importantdischarge information regarding your hospital visit. Diagnosis from Today's Visit Shingles Rash What to Do Next Instructions from Your Care Team No qualifying data available. Post Acute Orders No qualifying data available. You Need to Schedule the Following Appointments Follow Up with JERICHO NIEVES MD When Within 2-4 days Where: [address] [place] [id number]- Allergies Dilaudid Percocet 5/325 SEROquel codeine traMADol [...] Duration: 7 Days Printed Prescription Changed acetaminophen-hydrocodone ([place] 325- 5 mg oral tablet) 1 tab(s) by mouth Two (2) times a day Changed acetaminophen-hydrocodone ([place] 325- 5 mg oral tablet) 1 tab(s) [...] leg Difficulty speaking, swallowing or walking Seizure [id number] [employer]. [address] [place] [address]. All rights reserved. This information is not intended as a substitute for professional medical care. Always follow yourhealthcare professional's instructions. Additional Information VACCINATE! IT SAVES LIVES! Members of the community who have not yet received the COVID-19 vaccine and would like to receive it can visit one of [facility] vaccine clinics. There are many vaccine clinic locations within the [facility]. For locations and available times, please visit [email or web address]. It is important to note that some COVID mobile vaccine clinics are held outdoors and may be canceled in rainy orstormy conditions. To learn more about pediatric vaccinations (ages 5-11), we invite you to visit the [facility] webpage. [email or web address] learn more about the COVID-19 vaccine, we invite you to visit the [employer] website for a list of frequently asked questions. [email or web address] [facility] Patient Portal Access Instructions: Stay connected with your healthcare team and access your personal medical information anytime with the [employer] Patient Portal. If you would like a full copy of your medical records please contact the [facility] Medical Records Department Saturday through Saturday between 8a.m. and 4:30p.m. Please follow the directions below to access the portal: 1.Access the email account you provided upon registration to the [facility].2.Look for an invitation email from [facility].3.Open the email and access the invitation link: Accept Invitation to [facility]4.Fill in the required alamo to create your account. Sign into www.derrickMoji [employer] with your username and password that you [...] you will allow to register on the [facility] [employer] Patient Portal for access to your information. You can also access the [employer] Patient Portal on the [employer] dasha. Simply click on Health Records under [place] and then click on the [employer] logo. [...] Call your local pharmacy or go to http://bit.ly/7G2Kh5w to find one close to you.3.Make use of household items: Use cat litter or old coffee grounds to dispose medications if other options arenot available. Mix your drugs with these household products, seal them in an airtight container andthrow it into the garbage. Call [facility]: [phone] to be sure your drugs can be [...] aware that I should contact my doctor. Patient/Fighting [employer] Maintainer Signature: Date/Time: Relationship to Patient: Witness Name/Signature: Date/Time: [facility]10-27-2022 History of Present illness Narrative [...] (Bmi) of 50.0 to 59.9 in Adult ([facility]) Persistent Headaches S/P Cervical Spinal Fusion Tobacco Use Disorder Moderate Persistent Asthma Without Complication Psoriatic Arthritis (Hcc) Irritable Bowel Syndrome With Diarrhea Stage 3b Chronic Kidney Disease ([facility]) Current Outpatient Medications Medication Sig fluticasone-vilanterol (BREO [...] intervention Jericho Nieves MD documented in this encounterCrystal Clinic [facility] Center10-27-2022 Evaluation note* Diagnosis Type 2 diabetes [...] obesity type (HCC) documented in this encounter [facility]10-21-2022 Miscellaneous Notes* Telephone Encounter - Jericho Nieves MD - 02/23/2022 1:08 PM EDT documented in this encounterCrystal Clinic Orthopedic Center09-15-2022 Nurse Note* Peggy Diaz LPN - 01/18/2022 1:01 PM EDT Intake information documented in the prior visit with FLASH Caceres today. documented in this encounterCrystal Clinic Orthopedic Center09-15-2022 Procedure note* FLASH Caceres - 01/18/2022 [...] 2022 TIME: 12:58 PM documented in this encounterCrystal Clinic Orthopedic Center09-15-2022 History of Present illness Narrative* FLASH Caceres - 01/18/2022 12:45 PM EDT PULM FUNCTION SMARTBLOCK: Provider: Jamilah Hampton PA-C Assisting Tech: FLASH Caceres Spirometry: 1 Exhaled Nitric Oxide: 1 documented in this encounterCrystal Clinic Orthopedic Center09-15-2022 History of Present illness Narrative* Jamilah Hampton PA-C - 01/18/2022 12:45 PM EDT [facility] Respiratory Anthony, 01/18/2022: Name: Juan Eagle : 1965 The [...] FEF75 (L/sec) 0.69 0.28 1.54 0.92 133 LWH59-88 (L/sec) 2.32 1.24 3.74 2.57 110 PEF [...] answers. Jamilah Hampton PA-C documented in this encounterCrystal Clinic Orthopedic Center08-01-2022 Miscellaneous Notes* Telephone Encounter - Gricelda Duckworth LPN - 12/04/2021 5:02 PM EDT Below left referral on identified vm. Faxed referral to [facility] scheduling. Gricelda Duckworth LPN * Telephone [...] is calling asking for a referral to [facility] dietitian. She is wanting directions on what to eatand not to eat with the dx of 3rd stage renal failure. documented in this encounterCrystal Clinic [facility]opedic Center03-18-2022 Miscellaneous Notes* Telephone Encounter - Brigette Linares - 07/21/2021 11:21 AM EDT Patient electronically requesting refills as follows: Pending Prescriptions Disp Refills LANSOPRAZOLE 30 MG CAPSULE,DELAYED RELEASE 90 capsule 3 Sig: Take 1 capsule by mouth once daily. AURY: No Please review and advise. Brigette Linares documented in this encounterCrystal Clinic Orthopedic Center09-21-2021 History of Past illness Narrative* Problem [...] of this encounter (statuses as of 12/04/2021) [facility] History of Past illness Narrative* Problem [...] of this encounter (statuses as of 12/04/2021) [facility] of Past illness Narrative* Problem [...] of this encounter (statuses as of 01/18/2022) [facility] of Past illness Narrative* Problem [...] of this encounter (statuses as of 01/18/2022) [facility] of Past illness Narrative* Problem [...] of this encounter (statuses as of 02/23/2022) [facility] of Past illness Narrative* Problem [...] of this encounter (statuses as of 03/01/2022) [facility] of Past illness Narrative* Problem [...] of this encounter (statuses as of 04/12/2022) [facility] of Past illness Narrative* Problem [...] of this encounter (statuses as of 04/12/2022) [facility] of Past illness Narrative* Problem [...] of this encounter (statuses as of 04/13/2022) [facility] of Past illness Narrative* Problem [...] of this encounter (statuses as of 06/01/2022) [facility] of Past illness Narrative* Problem [...] of this encounter (statuses as of 06/22/2022) [facility] of Past illness Narrative* Problem [...] of this encounter (statuses as of 06/28/2022) [facility] of Past illness Narrative* Problem [...] of this encounter (statuses as of 07/01/2022) [facility] of Past illness Narrative* Problem [...] of this encounter (statuses as of 07/01/2022) [facility] of Past illness Narrative* Problem [...] of this encounter (statuses as of 07/19/2022) [facility] of Past illness Narrative* Problem [...] of this encounter (statuses as of 07/20/2022) [facility] of Past illness Narrative* Problem [...] of this encounter (statuses as of 08/23/2022) [facility] of Past illness Narrative* Problem Noted Date Resolved Date BMI 45.0-49.9, adult 01/25/2020 03/20/2021 Thumb tendonitis 01/20/2016 02/20/2017 Osteoarthritis of lumbar spine 12/05/2015 1 Depression 04/11/2015 08/10/2017 Low back pain 04/11/2015 02/20/2017 Gastroesophageal reflux disease without esophagi tis 04/11/2015 12/16/2019 documented as of this encounter (statuses as of 07/24/2021) [facility] History of Past illness Narrative* Problem Noted Date Resolved Date BMI 45.0-49.9, adult 01/25/2020 03/20/2021 Thumb tendonitis 01/20/2016 02/20/2017 Osteoarthritis of lumbar spine 12/05/2015 1 Depression 04/11/2015 08/10/2017 Low back pain 04/11/2015 02/20/2017 Gastroesophageal reflux disease without esophagi tis 04/11/2015 12/16/2019 documented as of this encounter (statuses as of 09/01/2021) [facility] No data available for this section [facility] Evaluation note* Diagnosis Gastroesophageal reflux disease without esophagitis Esophageal reflux documented in this encounter [facility] note* Diagnosis Type 2 diabetes mellitus without complication (HCC) Type II or unspecified type diabetes mellitus without mention of complication, not stated as uncontrolled documented in this encounter [facility] note* Diagnosis Stage 3b chronic kidney disease (HCC)- Primary documented in this encounter [facility] note* Diagnosis Stage 3b chronic kidney disease (HCC)- Primary Type 2 diabetes mellitus without complication, without long-term current use of insulin ([facility]) [facility] Diagnosis Moderate persistent asthma without complication Unspecified asthma [facility]* Diagnosis Moderate persistent asthma without complication Unspecified asthma [facility]* Diagnosis Moderate persistent asthma without complication- Primary Unspecified asthma Gastroesophageal reflux disease without esophagitis Esophageal reflux Tobacco use disorder JOSE (obstructive sleep apnea) Obstructive sleep apnea (adult) (pediatric) [facility] Diagnosis Stage 3b chronic kidney disease (HCC)- Primary Panic anxiety syndrome Panic disorder without agoraphobia [facility]* Diagnosis ST elevation myocardial infarction involving left circumflex coronary artery ([facility])- Primary Acute myocardial infarction of other specified sites, initial episode of care Ventricular fibrillation ([facility]) Ventricular fibrillation Coronary artery disease involving iliamna coronary artery of iliamna heart without angina pectoris Ischemic cardiomyopathy Other specified forms of chronic ischemic heart disease Mixed hyperlipidemia Type 2 diabetes mellitus with stage 3a chronic kidney disease, without long-term current use of insulin ([facility]) Tobacco use disorder [facility]* Diagnosis Bipolar affective disorder, remission status unspecified ([facility])- Primary Insomnia, unspecified type Panic anxiety syndrome Panic disorder without agoraphobia Coronary artery disease involving iliamna coronary artery of iliamna heart without angina pectoris Persistent headaches Headache Type 2 diabetes mellitus with stage 3a chronic kidney disease, without long-term current use of insulin ([facility]) Morbid obesity with BMI of 45.0-49.9, adult ([facility]) Morbid obesity Psoriatic arthritis ([facility]) Psoriatic arthropathy [facility]* Diagnosis Persistent headaches Headache Gastroesophageal reflux disease without esophagitis Esophageal reflux documented in this encounter [facility] note* Diagnosis Encounter for long-term (current) use of medications- Primary Encounter for long-term (current) use of other medications Bipolar affective disorder, remission status unspecified ([facility]) PTSD (post-traumatic stress disorder) Posttraumatic stress disorder Panic disorder with agoraphobia Agoraphobia with panic disorder Dyskinesia, tardive Subacute dyskinesia due to drugs documented in this encounter [facility] note* Diagnosis SOB (shortness of breath)- Primary Shortness of breath Mild intermittent asthma without complication Unspecified asthma Morbid obesity (HCC) Morbid obesity Cigarette smoker Tobacco use disorder [facility] Diagnosis SOB (shortness of breath) Shortness of breath [facility] Diagnosis PTSD (post-traumatic stress disorder)- Primary Posttraumatic stress disorder Panic disorder with agoraphobia Agoraphobia with panic disorder Dyskinesia, tardive Subacute dyskinesia due to drugs Bipolar affective disorder, currently depressed, moderate (HCC) Bipolar I disorder, most recent episode (or current) depressed, moderate [facility] Diagnosis Encounter for screening mammogram for breast cancer [facility] Diagnosis Diabetic mononeuropathy associated with diabetes mellitus due to underlying condition ([facility])- Primary Callus of foot Corns and callosities Ingrowing toenail Ingrowing nail Onychomycosis Dermatophytosis of nail Pain in toe of left foot Pain in limb Pain in toe of right foot Pain in limb Diminished pulses in lower extremity Other symptoms involving cardiovascular system [facility]* Diagnosis Bipolar affective disorder, currently depressed, moderate (HCC)- Primary Bipolar I disorder, most recent episode (or current) depressed, moderate Dyskinesia, tardive Subacute dyskinesia due to drugs Panic disorder with agoraphobia Agoraphobia with panic disorder PTSD (post-traumatic stress disorder) Posttraumatic stress disorder [facility] Diagnosis Moderate persistent asthma without complication- Primary Unspecified asthma Morbid obesity (HCC) Morbid obesity Gastroesophageal reflux disease without esophagitis Esophageal reflux Cigarette smoker Tobacco use disorder [facility]* Diagnosis Panic disorder with agoraphobia Agoraphobia with panic disorder Dyskinesia, tardive Subacute dyskinesia due to drugs [facility]* Diagnosis Wrist pain, right- Primary Pain in joint, forearm Psoriatic arthritis (HCC) Psoriatic arthropathy Type 2 diabetes mellitus with stage 3a chronic kidney disease, without long-term current use of insulin (HCC) [facility]* Diagnosis Persistent headaches Headache [facility]* Diagnosis Dyskinesia, tardive- Primary Subacute dyskinesia due to drugs Bipolar affective disorder, currently depressed, moderate (HCC) Bipolar I disorder, most recent episode (or current) depressed, moderate Panic disorder with agoraphobia Agoraphobia with panic disorder PTSD (post-traumatic stress disorder) Posttraumatic stress disorder documented in this encounter [facility] note* Diagnosis Bipolar affective disorder, currently depressed, moderate (HCC)- Primary Bipolar I disorder, most recent episode (or current) depressed, moderate Dyskinesia, tardive Subacute dyskinesia due to drugs Panic disorder with agoraphobia Agoraphobia with panic disorder PTSD (post-traumatic stress disorder) Posttraumatic stress disorder documented in this encounter [facility] note* Diagnosis Pneumonia due to COVID-19 virus- Primary Moderate persistent asthma with acute exacerbation Acute hypoxemic respiratory failure (HCC) Acute kidney injury (HCC) Acute kidney failure, unspecified Coronary artery disease involving iliamna coronary artery of iliamna heart without angina pectoris Type 2 diabetes mellitus with stage 3a chronic kidney disease, with long-term current use of insulin (HCC) Anemia, unspecified type documented in this encounter [facility] Discharge instructions No data available for this section [facility] Progress note No data available for this section [facility] Reason for referral (narrative)* Outpatient Procedure (Routine) - Pending Review Specialty Diagnoses / Procedures Referred By Patrick mchugh Referred To [facility] Diagnoses Encounter for long-term (current) use of medications Procedures ECG COMPLETE ECG ROUTINE ECG W/LEAST 12 LDS W/I&R Seda Quiroz APRN.CNP [address] [place] [address] [facility] [address] [address] Referral ID Status Reason Start Date Expiration Date Visits Requested Visits Authorized [id number] Pending Review Auto-Generat ed Referral 06/22/2022 06/22/2023 1 1 [facility] for referral (narrative)* Outpatient Procedure (Routine) - Authorized Specialty Diagnoses / Procedures Referred By Patrick mchugh Referred To Contact [facility] Diagnoses SOB (shortness of breath) Procedures SPIROMETRY BASELINE ONLY SPMTRY W/VC EXPIRATORY JEWEL W/WO MXML VOL VNTJ Talia Tineo MD [address] [place] [address] Respiratory [facility] [address] [place] [address] Referral ID Status Reason Start Date Expiration Date Visits Requested Visits Authorized [id number] Authorized Auto-Generat ed Referral 07/19/2022 08/18/2023 1 1 [facility] for referral (narrative)* Diagnostic Procedure Only (Routine) - Pending Review Specialty Diagnoses / Procedures Referred By Bryonac t Referred To Contact [facility] Diagnoses Encounter for screening mammogram for breast cancer Procedures JEANNETTE SCREENING SCREENING MAMMOGRAPHY BI 2-VIEW BREAST INC CAD Jericho Nieves MD [address] [place] [address] [facility] [address] [place] [id number] Referral ID Status Reason Start Date Expiration Date Visits Requested Visits Authorized [id number] Pending Review Auto-Generat ed Referral 11/07/2022 12/07/2023 1 1 T [facility] for referral (narrative)* Outpatient Procedure (Routine) - Authorized Specialty Diagnoses / Procedures Referred By Patrick mchugh Referred To [facility] Diagnoses Ingrowing toenail Procedures PVR ANK PRESS [facility] NON-INVAS PHYSIOLOGIC STD EXTREMITY ART 2 LEVEL [employer] [address] [place] [address] [facility] [address] [place] [address] Referral ID Status Reason Start Date Expiration Date Visits Requested Visits Authorized [id number] Authorized Auto-Generat ed Referral 12/04/2022 12/04/2023 1 1 [facility] Summary Purpose Family History No Family History Records FoundNo Family History Records FoundNo Family History Records FoundNo Family History Records Found Advance Directives Documents on File Type Date Recorded Patient [employer] Maintainer Expl anation Advance Directive(s) 05/29/2019 12:50 PM Advance Directive(s) 04/16/2016 1:49 PM Advance Directive(s) 01/16/2016 9:20 AM Advance Directive(s) 12/19/2015 7:24 AM Reason for Referral Specialty Diagnoses / Procedures Referred By Contac t Referred To Contact Rheumatology Diagnoses Psoriatic arthritis (HCC) Procedures CONSULT TO RHEUM/IMMUN DISEASE Jericho Nieves MD [address] [place] [address] Referral ID Status Reason Start Date Expiration Date Visits Requested Visits Authorized [id number] Ref Not Required PCP Requested Referral 03/06/2023 03/05/2024 1 1 Specialty Diagnoses / Procedures Referred By Contac t Referred To Contact Diagnoses Bipolar affective disorder, remission status unspecified (HCC) Procedures CONSULT TO PSYCHIATRY OFFICE/OUTPATIENT NEW HIGH MDM 60-74 MINUTES [facility], [facility] [address] [place] [address] Referral ID Status Reason Start Date Expiration Date Visits Requested Visits Authorized [id number] Pending Review PCP Requested Referral 06/01/2022 06/01/2023 1 1 Additional Source Comments INFORMATION SOURCE (unrecogn ized section and content) DATE CREATED AUTHOR AUTHOR'S ORGANIZ ATION 06/19/2020 [facility] DATE CREATED AUTHOR AUTHOR'S ORGANIZ ATION 05/17/2022 [facility] DATE CREATED AUTHOR AUTHOR'S ORGANIZ ATION 06/15/2023 [facility] Source Comments (unrecognize d section and content) In the event this informatio n is protected by the Federal Confidentiality of Alcohol and Drug Abuse Patient Records regulations: The Federal rules restrict any use of the information to criminally investigate or prosecute any alcohol or drug abuse patient.[facility] the event this information is protected by the Federal Confidentiality of Alcohol and Drug Abuse Patient Records regulations: The Federal rules restrict any use of the information to criminally investigate or prosecute any alcohol or drug abuse patient.[facility] the event this information is protected by the Federal Confidentiality of Alcohol and Drug Abuse Patient Records regulations: The Federal rules restrict any use of the information to criminally investigate or prosecute any alcohol or drug abuse patient.[facility] the event this information is protected by the Federal Confidentiality of Alcohol and Drug Abuse Patient Records regulations: The Federal rules restrict any use of the information to criminally investigate or prosecute any alcohol or drug abuse patient.[facility] the event this information is protected by the Federal Confidentiality of Alcohol and Drug Abuse Patient Records regulations: The Federal rules restrict any use of the information to criminally investigate or prosecute any alcohol or drug abuse patient.[facility] the event this information is protected by the Federal Confidentiality of Alcohol and Drug Abuse Patient Records regulations: The Federal rules restrict any use of the information to criminally investigate or prosecute any alcohol or drug abuse patient.[facility] the event this information is protected by the Federal Confidentiality of Alcohol and Drug Abuse Patient Records regulations: The Federal rules restrict any use of the information to criminally investigate or prosecute any alcohol or drug abuse patient.[facility] Center[facility] the event this information is protected by the Federal Confidentiality of Alcohol and Drug Abuse Patient Records regulations: The Federal rules restrict any use of the information to criminally investigate or prosecute any alcohol or drug abuse patient.[facility] the event this information is protected by the Federal Confidentiality of Alcohol and Drug Abuse Patient Records regulations: The Federal rules restrict any use of the information to criminally investigate or prosecute any alcohol or drug abuse patient.[facility] the event this information is protected by the Federal Confidentiality of Alcohol and Drug Abuse Patient Records regulations: The Federal rules restrict any use of the information to criminally investigate or prosecute any alcohol or drug abuse patient.[facility] the event this information is protected by the Federal Confidentiality of Alcohol and Drug Abuse Patient Records regulations: The Federal rules restrict any use of the information to criminally investigate or prosecute any alcohol or drug abuse patient.[facility] Center[facility] the event this information is protected by the Federal Confidentiality of Alcohol and Drug Abuse Patient Records regulations: The Federal rules restrict any use of the information to criminally investigate or prosecute any alcohol or drug abuse patient.[facility] Center[facility] the event this information is protected by the Federal Confidentiality of Alcohol and Drug Abuse Patient Records regulations: The Federal rules restrict any use of the information to criminally investigate or prosecute any alcohol or drug abuse patient.[facility] Center[facility] the event this information is protected by the Federal Confidentiality of Alcohol and Drug Abuse Patient Records regulations: The Federal rules restrict any use of the information to criminally investigate or prosecute any alcohol or drug abuse patient.[facility] Center[facility] the event this information is protected by the Federal Confidentiality of Alcohol and Drug Abuse Patient Records regulations: The Federal rules restrict any use of the information to criminally investigate or prosecute any alcohol or drug abuse patient.[facility] Center[facility] the event this information is protected by the Federal Confidentiality of Alcohol and Drug Abuse Patient Records regulations: The Federal rules restrict any use of the information to criminally investigate or prosecute any alcohol or drug abuse patient.[facility] CenterIn the event this information is protected by the Federal Confidentiality of Alcohol and Drug Abuse Patient Records regulations: The Federal rules restrict any use of the information to criminally investigate or prosecute any alcohol or drug abuse patient.[facility] CenterIn the event this information is protected by the Federal Confidentiality of Alcohol and Drug Abuse Patient Records regulations: The Federal rules restrict any use of the information to criminally investigate or prosecute any alcohol or drug abuse patient.[facility] the event this information is protected by the Federal Confidentiality of Alcohol and Drug Abuse Patient Records regulations: The Federal rules restrict any use of the information to criminally investigate or prosecute any alcohol or drug abuse patient.[facility] Center[facility] the event this information is protected by the Federal Confidentiality of Alcohol and Drug Abuse Patient Records regulations: The Federal rules restrict any use of the information to criminally investigate or prosecute any alcohol or drug abuse patient.[facility] Center[facility] the event this information is protected by the Federal Confidentiality of Alcohol and Drug Abuse Patient Records regulations: The Federal rules restrict any use of the information to criminally investigate or prosecute any alcohol or drug abuse patient.[facility] CenterIn the event this information is protected by the Federal Confidentiality of Alcohol and Drug Abuse Patient Records regulations: The Federal rules restrict any use of the information to criminally investigate or prosecute any alcohol or drug abuse patient.[facility] the event this information is protected by the Federal Confidentiality of Alcohol and Drug Abuse Patient Records regulations: The Federal rules restrict any use of the information to criminally investigate or prosecute any alcohol or drug abuse patient.[facility] the event this information is protected by the Federal Confidentiality of Alcohol and Drug Abuse Patient Records regulations: The Federal rules restrict any use of the information to criminally investigate or prosecute any alcohol or drug abuse patient.[facility] the event this information is protected by the Federal Confidentiality of Alcohol and Drug Abuse Patient Records regulations: The Federal rules restrict any use of the information to criminally investigate or prosecute any alcohol or drug abuse patient.[facility] the event this information is protected by the Federal Confidentiality of Alcohol and Drug Abuse Patient Records regulations: The Federal rules restrict any use of the information to criminally investigate or prosecute any alcohol or drug abuse patient.[facility] the event this information is protected by the Federal Confidentiality of Alcohol and Drug Abuse Patient Records regulations: The Federal rules restrict any use of the information to criminally investigate or prosecute any alcohol or drug abuse patient.[facility] the event this information is protected by the Federal Confidentiality of Alcohol and Drug Abuse Patient Records regulations: The Federal rules restrict any use of the information to criminally investigate or prosecute any alcohol or drug abuse patient.[facility] the event this information is protected by the Federal Confidentiality of Alcohol and Drug Abuse Patient Records regulations: The Federal rules restrict any use of the information to criminally investigate or prosecute any alcohol or drug abuse patient.[facility] the event this information is protected by the Federal Confidentiality of Alcohol and Drug Abuse Patient Records regulations: The Federal rules restrict any use of the information to criminally investigate or prosecute any alcohol or drug abuse patient.[facility] the event this information is protected by the Federal Confidentiality of Alcohol and Drug Abuse Patient Records regulations: The Federal rules restrict any use of the information to criminally investigate or prosecute any alcohol or drug abuse patient.[facility] the event this information is protected by the Federal Confidentiality of Alcohol and Drug Abuse Patient Records regulations: The Federal rules restrict any use of the information to criminally investigate or prosecute any alcohol or drug abuse patient.[facility] the event this information is protected by the Federal Confidentiality of Alcohol and Drug Abuse Patient Records regulations: The Federal rules restrict any use of the information to criminally investigate or prosecute any alcohol or drug abuse patient.[facility]In the event this information is protected by the Federal Confidentiality of Alcohol and Drug Abuse Patient Records regulations: The Federal rules restrict any use of the information to criminally investigate or prosecute any alcohol or drug abuse patient.[facility]In the event this information is protected by the Federal Confidentiality of Alcohol and Drug Abuse Patient Records regulations: The Federal rules restrict any use of the information to criminally investigate or prosecute any alcohol or drug abuse patient.[facility]In the event this information is protected by the Federal Confidentiality of Alcohol and Drug Abuse Patient Records regulations: The Federal rules restrict any use of the information to criminally investigate or prosecute any alcohol or drug abuse patient.[facility]In the event this information is protected by the Federal Confidentiality of Alcohol and Drug Abuse Patient Records regulations: The Federal rules restrict any use of the information to criminally investigate or prosecute any alcohol or drug abuse patient.[facility] CenterIn the event this information is protected by the Federal Confidentiality of Alcohol and Drug Abuse Patient Records regulations: The Federal rules restrict any use of the information to criminally investigate or prosecute any alcohol or drug abuse patient.[facility] CenterIn the event this information is protected by the Federal Confidentiality of Alcohol and Drug Abuse Patient Records regulations: The Federal rules restrict any use of the information to criminally investigate or prosecute any alcohol or drug abuse patient.[facility] CenterIn the event this information is protected by the Federal Confidentiality of Alcohol and Drug Abuse Patient Records regulations: The Federal rules restrict any use of the information to criminally investigate or prosecute any alcohol or drug abuse patient.[facility] CenterIn the event this information is protected by the Federal Confidentiality of Alcohol and Drug Abuse Patient Records regulations: The Federal rules restrict any use of the information to criminally investigate or prosecute any alcohol or drug abuse patient.[facility] Reason for Visit (unrecogniz ed section and content) Reason Comments Referral Request Reason Comments Spirometry Specialty Diagnoses / Procedures Referred By Contac t Referred To [facility] [place] Diagnoses Moderate persistent asthma without complication Procedures SPIROMETRY BASELINE ONLY SPMTRY W/VC EXPIRATORY JEWEL W/WO MXML VOL VNTJ Jamilah Hampton PA-C [address] [place] [address] [address] Referral ID Status Reason Start Date Expiration Date V isits Requested Visits Authorized [id number] Closed Auto-Generate d Referral 07/17/2021 08/16/2022 1 1 Specialty Diagnoses / Procedures Referred By Contac t Referred To [facility] RESPIRATORY [place] Diagnoses Moderate persistent asthma without complication Procedures NITRIC OXIDE, EXHALED NITRIC OXIDE GAS DETERMINATION Jamilah Hampton PA-C [address] [place] [address] [address] Referral ID Status Reason Start Date Expiration Date V isits Requested Visits Authorized [id number] Closed Auto-Generate d Referral 07/17/2021 08/16/2022 1 1 Reason Comments Established Patient 6 month follow up as thma Reason Comments Recheck Reason Comments Patient Update Reason Onset Date Comments Transition Of Care 04/09/2022 Reason Comments Hospital F/U [facility] Reason Comments Follow Up Reason Comments Patient Question Reason Comments Medication Problem Breo Reason Onset Date Comments Refill Request 06/28/2022 Reason Comments New Patient Evaluation Specialty Diagnoses / Procedures Referred By Contac t Referred To Contact Diagnoses Bipolar affective disorder, remission status unspecified (HCC) Procedures CONSULT TO PSYCHIATRY OFFICE/OUTPATIENT NEW HIGH MDM 60-74 MINUTES Claude, Joanna, MONOGRAM OPERATOR.MANAGER CALL [address] [place] [address] Referral ID Status Reason Start Date Expiration Date Visits Requested Visits Authorized [id number] Pending Review PCP Requested Referral 06/01/2022 06/01/2023 1 1 Reason Comments Established Patient 6 month follow up Asthma Specialty Diagnoses / Procedures Referred By Contac t Referred To Contact [facility] Diagnoses SOB (shortness of breath) Procedures SPIROMETRY BASELINE ONLY SPMTRY W/VC EXPIRATORY JEWEL W/WO MXML VOL VNTJ Talia Tineo MD [address] [place] [address] Respiratory Anthony [address] [place] [address] Referral ID Status Reason Start Date Expiration Date V isits Requested Visits Authorized [id number] Closed Auto-Generate d Referral 07/19/2022 08/18/2023 1 1 Reason Comments Follow Up Specialty Diagnoses / Procedures Referred By Contac t Referred To Contact Psychiatry / ADULT PSYCHIATRY Diagnoses Follow up Procedures VIDEO PSYC/PSYL EST Joanna Arce, MONOGRAM OPERATOR.MANAGER CALL [address] [place] [address] Seda uQiroz, MONOGRAM OPERATOR.MANAGER CALL [address] [place] [address] Referral ID Status Reason Start Date Expiration Date V isits Requested Visits Authorized [id number] Pending Review 08/23/2022 05/05/2023 30 30 Reason Comments Results Reason Comments Letter Reason Comments Established Patient Diabetic Foot Care Reason Comments Refill Request Reason Comments Express Care follow-up Reason Onset Date Comments Refill Request 03/09/2023 Specialty Diagnoses / Procedures Referred By Patrick mchugh Referred To Contact Psychiatry / ADULT PSYCHIATRY Diagnoses FOLLOW UP Procedures EST PSYC ADULT Jericho Nieves MD [address] [place] [address] Seda Quiroz, MONOGRAM OPERATOR.MANAGER CALL [address] [place] [address] Referral ID Status Reason Start Date Expiration Date V isits Requested Visits Authorized [id number] Pending Review 04/02/2023 07/01/2023 1 1 Reason Comments Appointment Reason Comments [facility] SN POC Reason Comments [facility] OT Update Reason Comments Patient Update Appointment Reason Comments Social Work Verbal Order Reason Comments ER F/U [facility] 06/06/23; Pneumoni a d/t COVID-19, acute exacerbation of COPD with asthma & acute hypoxemic respiratory failure Care Teams (unrecognized sec tion and content) Tar And Ammonia Pump Operator Relationship Specialty Start Date End Date Jericho Nieves MD [address] [place] [address] PCP - General Internal Medicine 05/26/15 Tar And Ammonia Pump Operator Relationship Specialty Start Date End Date Jericho Nieves MD [address] [place] [address] PCP - General Internal Medicine 05/26/15 Tar And Ammonia Pump Operator Relationship Specialty Start Date End Date Jericho Nieves MD [address] [place] [address] PCP - General Internal Medicine 05/26/15 Tar And Ammonia Pump Operator Relationship Specialty Start Date End Date Jericho Nieves MD [address] [place] [address] PCP - General Internal Medicine 05/26/15 Tar And Ammonia Pump Operator Relationship Specialty Start Date End Date Jericho Nieves MD [address] [place] [address] PCP - General Internal Medicine 05/26/15 Tar And Ammonia Pump Operator Relationship Specialty Start Date End Date Jericho Nieves MD [address] [facility] [place] [address] PCP - General Internal Medicine 05/26/15 Tar And Ammonia Pump Operator Relationship Specialty Start Date End Date Jericho Nieves MD [address] [facility] [place] [address] PCP - General Internal Medicine 05/26/15 Tar And Ammonia Pump Operator Relationship Specialty Start Date End Date Jericho Nieves MD [facility] [place] [address] PCP - General Internal Medicine 05/26/15 Tar And Ammonia Pump Operator Relationship Specialty Start Date End Date Jericho Nieves MD [facility] [place] [address] PCP - General Internal Medicine 05/26/15 Tar And Ammonia Pump Operator Relationship Specialty Start Date End Date Jericho Nieves MD [facility] [place] [address] PCP - General Internal Medicine 05/26/15 Tar And Ammonia Pump Operator Relationship Specialty Start Date End Date Jericho Nieves MD [facility] [place] [address] PCP - General Internal Medicine 05/26/15 Tar And Ammonia Pump Operator Relationship Specialty Start Date End Date Jericho Nieves MD [facility] [place] [address] PCP - General Internal Medicine 05/26/15 Tar And Ammonia Pump Operator Relationship Specialty Start Date End Date Jericho Nieves MD [facility] [place] [address] PCP - General Internal Medicine 05/26/15 Tar And Ammonia Pump Operator Relationship Specialty Start Date End Date Jericho Nieves MD [address] [facility] [place] [address] PCP - General Internal Medicine 05/26/15 Tar And Ammonia Pump Operator Relationship Specialty Start Date End Date Jericho Nieves MD [address] [facility] [place] [address] PCP - General Internal Medicine 05/26/15 Tar And Ammonia Pump Operator Relationship Specialty Start Date End Date Jericho Nieves MD [address] [facility] [place] [address] PCP - General Internal Medicine 05/26/15 Tar And Ammonia Pump Operator Relationship Specialty Start Date End Date Jericho Nieves MD [address] [facility] [place] [address] PCP - General Internal Medicine 05/26/15 Tar And Ammonia Pump Operator Relationship Specialty Start Date End Date Jericho Nieves MD [address] [facility] [place] [address] PCP - General Internal Medicine 05/26/15 Tar And Ammonia Pump Operator Relationship Specialty Start Date End Date Jericho Nieves MD [address] [facility] [place] [address] PCP - General Internal Medicine 05/26/15 Tar And Ammonia Pump Operator Relationship Specialty Start Date End Date Jericho Nieves MD [address] [facility] [place] [address] PCP - General Internal Medicine 05/26/15 Tar And Ammonia Pump Operator Relationship Specialty Start Date End Date Jericho Nieves MD [address] [facility] [place] [address] PCP - General Internal Medicine 05/26/15 Tar And Ammonia Pump Operator Relationship Specialty Start Date End Date Jericho Nieves MD [address] [facility] [place] [address] PCP - General Internal Medicine 05/26/15 Tar And Ammonia Pump Operator Relationship Specialty Start Date End Date Jericho Nieves MD [address] [facility] [place] [address] PCP - General Internal Medicine 05/26/15 Tar And Ammonia Pump Operator Relationship Specialty Start Date End Date Jericho Nieves MD [address] [place] [address] PCP - General Internal Medicine 05/26/15 Tar And Ammonia Pump Operator Relationship Specialty Start Date End Date Jericho Nieves MD [address] [place] [address] PCP - General Internal Medicine 05/26/15 Tar And Ammonia Pump Operator Relationship Specialty Start Date End Date Jericho Nieves MD [address] [place] [address] PCP - General Internal Medicine 05/26/15 Tar And Ammonia Pump Operator Relationship Specialty Start Date End Date Jericho Nieves MD [address] [place] [address] PCP - General Internal Medicine 05/26/15 Tar And Ammonia Pump Operator Relationship Specialty Start Date End Date Jericho Nieves MD [address] [place] [address] PCP - General Internal Medicine 05/26/15 Tar And Ammonia Pump Operator Relationship Specialty Start Date End Date Jericho Nieves MD [address] [place] [address] PCP - General Internal Medicine 05/26/15 Tar And Ammonia Pump Operator Relationship Specialty Start Date End Date Jericho Nieves MD [address] [place] [address] PCP - General Internal Medicine 05/26/15 Tar And Ammonia Pump Operator Relationship Specialty Start Date End Date Jericho Nieves MD [address] [place] [address] PCP - General Internal Medicine 05/26/15 Tar And Ammonia Pump Operator Relationship Specialty Start Date End Date Jericho Nieves MD [address] [place] [address] PCP - General Internal Medicine 05/26/15 Tar And Ammonia Pump Operator Relationship Specialty Start Date End Date Jericho Nieves MD [address] [place] [address] PCP - General Internal Medicine 05/26/15 Care Team (unrecognized sect ion and content) Care Team Personnel Name: JERICHO NIEVES MD Member Role: Primary Care Physician Address: Address: [address] [place] [address]- Name: ROBIN RIGGS MD Position: ED Physician Member Role: ED Physician Address: Address: [address] [place] [address]- Name: KWADWO Padilla Position: ED RN Member Role: ED RN Care Team Related Persons Name: AARON FLORES Care Team Personnel Name: JERICHO NIEVES MD Member Role: Primary Care Physician Address: Address: [address] [place] [address]- Care Team Related Persons Name: AARON FLORES [...] BE BASED ON THE PRIMARY CLINICAL RECORDS. [facility] [employer] [facility]. provides no warranty or guarantee of the accuracy or completeness of information in this document.
[2023-06-17 08:55] LABS: D-Dimer Quantitative (DVT/PE) 1.14 FEU/ug/m (0.27-0.49)
[2023-06-17 09:34] LABS: Anion Gap 6 (5-15); BUN 17 mg/dL (7-18); BUN/Creat Ratio 11.1 RATIO (10-20); Calcium,Total 7.2 mg/dL (8.5-10.1); Chloride 101 mmol/L (98-107); Creatinine, Serum 1.53 mg/dL (0.55-1.02); EST Glomerular Filtration Rate 37 mL/min (>60); Est Glom Filt Rate - Afr Amer 45 mL/min (>60); Estimated Creatinine Clearance 49.39 ml/min; Ferritin 607 ng/mL (8-252); Glucose 149 mg/dL (74-106); Iron 22 ug/dL (50-170); Iron Binding Capacity,Total 151 ug/dL (250-450); Magnesium 1.9 mg/dL (1.6-2.6); PERCENT IRON SATURATION 14.6 % (15.0-55.0); Potassium 3.1 mmol/L (3.5-5.1); Sodium Level 135 mmol/L (136-145)
[2023-06-17] MEDS: Ceftriaxone 1 GM/50 ML BAG IV (10:55)
[2023-06-17] MEDS: Methotrexate 2.5 MG Tablet 15 MG PO (10:55)
[2023-06-17] MEDS: Escitalopram Oxalate 10 MG Tablet 30 MG PO (10:55)
[2023-06-17] MEDS: Aspirin E.C. 81 MG Tablet PO (10:55)
[2023-06-17 10:57] LABS: Thyroid Stim Hormone (TSH) 1.72 uIU/mL (0.358-3.74)
[2023-06-17] MEDS: Pregabalin 75 MG Capsule PO ×2 (10:58→21:44)
[2023-06-17] MEDS: Azithromycin 500 MG in Dextrose 5%-Water (250mL Bag) 250 ML 250 MG IV (12:04)
[2023-06-17 12:12] LABS: Vitamin B12 821 pg/mL (211-911)
[2023-06-17] MEDS: VALBENAZINE TOSYLATE 80 MG CAPSULE PO (16:24)
[2023-06-17] MEDS: Amitriptyline 25 MG Tablet 75 MG PO (21:39)
[2023-06-17] MEDS: Atorvastatin Calcium 40 MG Tablet PO (21:39)
[2023-06-17] MEDS: 0.9% Saline Lock 10 ML Syringe IV (21:41)
[2023-06-17] MEDS: guaiFENesin 600 MG Tablet PO (22:16)
[2023-06-18] VITALS (13 sets, daily range): BP systolic 104–140; BP diastolic 53–65; PULSE 64–88; RESP 18–28; TEMP 36.2–36.7; O2SAT 90–100
[2023-06-18 04:22] LABS: Absolute Lymphocyte Count 0.39 X10^3/uL (0.83-4.51); Absolute Neutrophil Count 4.7 X10^3/uL (2.0-7.7); Hematocrit 25.5 % (37-47); Hemoglobin 8.6 g/dL (12.0-15.0); Lymphocyte # 0.39 X10^3/ul (0.83-4.51); Lymphocyte % 7.6 % (19-41); Mean Corp Hgb Conc 33.7 g/dL (32-36); Mean Corpuscular Volume 97.7 fL (81-99); Mean Platelet Vol. 10.6 fl (6.2-12.0); Monocyte# 0.03 X10^3/uL; Monocyte% 0.6 % (0-10); NRBC Flagged by Analyzer 0 % (0-5); Neutrophil # 4.65 X10^3/uL (2.7-7.7); Neutrophil % 91.2 % (47-70); POSITIVE DIFFERENTIAL YES; Platelet Count 239 K/mm3 (150-450); RBC Distribution Width CV 15.1 % (11.6-14.6); RBC Distribution Width SD 53.6 fl (35.1-43.9); Red Blood Count 2.61 M/mm3 (4.2-5.4); White Blood Count 5.1 K/mm3 (4.4-11.0)
[2023-06-18 04:39] LABS: ALB/GLOB Ratio 0.5 RATIO (0.9-2.4); AST(SGOT) 22 U/L (15-37); Alanine Aminotransfer ALT/SGPT 16 U/L (13-56); Alkaline Phosphatase 111 U/L (45-117); Anion Gap 4 (5-15); BUN 11 mg/dL (7-18); BUN/Creat Ratio 10.1 RATIO (10-20); Calcium,Total 8.1 mg/dL (8.5-10.1); Chloride 105 mmol/L (98-107); Creatinine, Serum 1.09 mg/dL (0.55-1.02); EST Glomerular Filtration Rate 55 mL/min (>60); Est Glom Filt Rate - Afr Amer 66 mL/min (>60); Estimated Creatinine Clearance 67.13 ml/min; Glucose 182 mg/dL (74-106); Potassium 3.5 mmol/L (3.5-5.1); Sodium Level 140 mmol/L (136-145)
[2023-06-18] MEDS: 0.9% Saline Lock 10 ML Syringe IV (05:42)
--- NOTE | 2023-06-18 07:26 | PCM.PN.HOSP ---
Reason for Visit Reason for Visit: Diagnoses Anemia, unspecified (06/17/23) Hypokalemia (06/17/23) Acute and chronic respiratory failure, unspecified whether with hypoxia or hypercapnia (06/17/23) Subjective Subjective Breathing ok. Feeling better. Objective Data Objective Data Vital Signs: Vital Signs Temp Pulse Resp BP Pulse Ox O2 Del Method O2 Flow Rate 36.7 C 64 20 H 104/53 L 96 Nasal Cannula 4 06/18/23 03:00 06/18/23 03:00 06/18/23 03:00 06/18/23 03:00 06/18/23 07:23 06/18/23 07:23 06/18/23 07:23 Oxygen Flow Rate (L/min) 4 Oxygen Delivery Method Nasal Cannula Weight: 114.986 kg Body Mass Index (BMI) 47.9 Intake & Output: Intake and Output for Last 24 Hours 06/16/23 06/17/23 06/18/23 23:59 23:59 23:59 Intake Total 985 / 985 Output Total 650 / 650 300 / 300 Balance 335 / 335 -300 / -300 Medical Nutrition Assessment Dietitian: Malnutrition Criteria Met Start: 06/17/23 12:58 Freq: Status: Active Protocol: Document 06/17/23 12:58 SLA (Rec: 06/17/23 12:58 SLA Desktop) Nutrition Malnutrition Evidence of Malnutrition Exists Yes Malnutrition (severe): Acute Illness/Injury Evidenced By Suboptimal Energy Intake ( Severe),Weight Loss (Severe) Clinical Problem Acute Disease or Injury Related Malnutrition Etiology related to recent COVID and inadequate energy intake Signs/Symptoms as evidenced by 4.5% unintended wt loss in <10 days and <50% po intake of est nutritional needs x > 5 days Status Active Problem Recommendation Dietitian Recommendations/Changes Continue 1999 kj Cardiac diet as ordered Monitor need of ONS pending po intake as established Available if diet education desired by pt prior to d/c. Lab / Micro Data 06/18/23 04:03 06/18/23 04:03 Labs: Laboratory Results - last 24 hr 06/17/23 08:20: D-Dimer Quant (PE/DVT) 1.14 H*, Sodium 135 L, Potassium 3.1 L, Chloride 101, Carbon Dioxide 28.0, Anion Gap 6, BUN 17, Creatinine 1.53 H, Estim Creat Clear Calc 49.39, Est GFR (MDRD) Af Amer 45 L, Est GFR (MDRD) Non-Af 37 L, BUN/Creatinine Ratio 11.1, Glucose 149 H, Calcium 7.2 L, Magnesium 1.9, Iron 22 L, TIBC 151 L, Iron Saturation 14.6 L, Ferritin 607 H, Folate 3.10, TSH 1.72 06/17/23 11:00: Vitamin B12 821 06/18/23 04:03: WBC 5.1, RBC 2.61 L, Hgb 8.6 L, Hct 25.5 L, MCV 97.7, MCH 33.0 H, MCHC 33.7, RDW Std Deviation 53.6 H, RDW Coeff of Erlinda 15.1 H, Plt Count 239, MPV 10.6, Immature Gran % (Auto) 0.600, Neut % (Auto) 91.2 H, Lymph % (Auto) 7.6 L, Clinton % (Auto) 0.6, Eos % (Auto) 0.0, Baso % (Auto) 0.0, Absolute Neuts (auto) 4.7, Absolute Lymphs (auto) 0.39 L, Nucleated RBC % 0, Sodium 140, Potassium 3.5, Chloride 105, Carbon Dioxide 31.0, Anion Gap 4 L, BUN 11, Creatinine 1.09 H, Estim Creat Clear Calc 67.13, Est GFR (MDRD) Af Amer 66, Est GFR (MDRD) Non-Af 55 L, BUN/Creatinine Ratio 10.1, Glucose 182 H, Calcium 8.1 L, Total Bilirubin 0.60, AST 22, ALT 16, Alkaline Phosphatase 111, Total Protein 6.0 L, Albumin 2.0 L, Globulin 4.0, Albumin/Globulin Ratio 0.5 L Micro: Microbiology 06/17/23 12:10 Urine, Clean Catch Legionella Antigen - Final 06/17/23 12:10 Urine, Clean Catch Streptococcus pneumoniae Antigen (M - Final 06/17/23 04:16 Mucosa - Nose SARS-CoV-2, Influenza & RSV (PCR) - Final Radiography Diagnostic Testing: Radiology Impression Chest X-Ray 06/17/23 04:40 IMPRESSION: Again noted diffuse interstitial process, confluent at the bases, suggesting pulmonary edema given venous congestion and cardiomegaly. Infectious etiology is not excluded. Recommend follow-up to resolution. Electronically Signed: Sabas Gilbert MD at 5:54 EST , Physical Exam Const alert and no apparent distress Constitutional Narrative: on oxygen. no respiratory distress. no conversational dyspnea. Resp normal respiratory effort and no retractions Cardio regular rate, regular rhythm, S1 normal heart sound and S2 normal heart sound GI normal to inspection, nondistended, normoactive bowel sounds, soft to palpation, non-tender and non-distended Extremity General Extremity: edema bilateral lower extremity Neuro Sensorium / Orientation: awake and alert Psych affect normal Assessment & Plan Assessment/Plan (1) Acute on chronic respiratory failure: (2) Anemia: (3) Acute hypokalemia: PLAN: Plan Acute on chronic hypoxic respiratory failure Patient was ambulated on 4 L and was dropping 80s with oxygen. Chest x-ray shows chronic interstitial changes likely related with the patient's previous COVID-19 pneumonitis. Cannot determine if patient has any new infiltrates or worsening edema. May be exacerbated by her underlying asthma and COVID-19 pneumonitis Treatment at this time will include methylprednisolone, bronchodilators, empiric antibiotics Will follow-up D-dimer, sputum culture, strep and Legionella antigens. COVID-19, influenza and RSV are negative, strep and leg negative. D-dimer 1.12. CTA chest shows overall worsening infiltrates. Change abx to pip/tazo and vancomycin. Resume furosemide IV. Wean oxygen as tolerated. PEP therapy. Consult pulmonary for further input. Anemia Has been trending down over the past month. Patient denies any medication. Patient does take aspirin and clopidogrel. Patient is on aspirin and clopidogrel for PCI that she had in April 2022. I will hold her clopidogrel for now. Check Hemoccult iron low, but elevated ferritin; B12, folate and TSH WNL. Start Ferrous Sulfate. Hypokalemia Likely secondary to furosemide Ordered placement in the emergency room Follow-up potassium as well as magnesium Acute kidney injury Creatinine has been slowly trending up over the past several weeks. Currently is at 1.68. Baseline creatinine is around 1. Improved. Chronic conditions CAD: Patient had PCI in April 2022. Holding clopidogrel given the anemia. Continue with aspirin. Morbid obesity with BMI of 50.4. Complicates care and recovery. Chronic pain: Buprenorphine Depression: Continue with escitalopram. Tardive dyskinesia: Continue with Ingrezza. Diabetes mellitus type 2: Sliding scale insulin. Return arthritis: On methotrexate. JOSE: Continue with CPAP VTE prophylaxis with SCDs CODE STATUS: Addressed with the patient. Patient was unsure. Told patient we will leave her on full CODE STATUS at this point time but she may change her mind at any point and notify us if she does so. Disposition: Determined. I anticipate the patient requiring greater than 2 midnights in the hospital given her respiratory status as well as her multiple medical comorbidities. Charges/Coding Visit Charges Inpatient E&M: [id number] [facility] Hosp L3
--- NOTE | 2023-06-18 07:32 | CT_ITS ---
EXAM: CT ANGIOGRAPHY CHEST WITHOUT AND WITH INTRAVENOUS CONTRAST CLINICAL INDICATION: respiratory failure TECHNIQUE: Helically acquired angiography images were obtained of the chest without and with intravenous contrast. This CT exam was performed using one or more of the following dose reduction techniques: automated exposure control, adjustment of the mA and/or kV according to patient size, and/or use of iterative reconstruction technique. MIP reconstructed images were created and reviewed. CONTRAST: IV 100mL [id number] COMPARISON: CTA Chest dated 05/31/2023 FINDINGS: PULMONARY ARTERIES: Normal. Normal in caliber. No evidence of pulmonary embolism. AORTA: Normal. Normal in caliber. No evidence of dissection. GREAT VESSELS OF AORTIC ARCH: Normal. Normal in caliber. No evidence of dissection. INFERIOR VENA CAVA: Contrast refluxes into distended inferior vena cava and hepatic veins indicative of increased right-sided heart pressure. LUNGS AND PLEURAL SPACES: Bilateral airspace opacification of the lungs appears more prominent on the current study. New minimal bilateral pleural effusions. No mass. HEART: Borderline cardiomegaly. Coronary artery stents present. MEDIASTINUM: Stable reactive mediastinal lymph nodes. Esophagus is unremarkable. No hiatal hernia. BONES/JOINTS: Normal. No suspicious lytic or blastic abnormality. CT/CTA Chest W/WO Contrast IMPRESSION: 1. No evidence of acute pulmonary embolism. 2. Worsening bilateral pulmonary opacities. 3. Borderline cardiomegaly with question of increased right-sided heart pressure. Electronically Signed: Horacio Diallo MD at 8:50 EST ,
--- NOTE | 2023-06-18 09:47 | CASEMGMT ---
KWADWO CM Readmission Note Previous Admission: 05/31/23-06/06/23 Diagnosis: resp failure, covid pna/? superimposed bacterial pna DC Disposition: Home with [facility] Current Admission: Admitted 06/17/23 Current Diagnosis:acute on chronic respiratory failure Pt presented to ER with increased sob. Pt had been dc'd from [facility] with C as she was denied TCU. Pt is active with SN, PT, OT and [employer]. Pt receives oxygen through [facility] and had been using 4L at home. Pt states she has not been using her pap d/t the mask not fitting correctly. She is instructed to call [facility] when home with her CPAP for help with this per [facility]. Pt reports seeing since last hospitalization and taking her medications as ordered. She would like to resume the HHC, but is unsure if she will be able to return home at this time. Pt denies need for list of other options of HHC. Therapy evals pending. DC Plan: [facility] HHC resuming if pt strong enough to return home
[2023-06-18] MEDS: guaiFENesin 600 MG Tablet PO ×2 (10:48→21:37)
[2023-06-18] MEDS: Pantoprazole Sodium 40 MG Tablet PO (10:48)
[2023-06-18] MEDS: Ferrous Sulfate 325 MG Tablet PO (10:48)
[2023-06-18] MEDS: VALBENAZINE TOSYLATE 80 MG CAPSULE PO (10:49)
[2023-06-18] MEDS: Aspirin E.C. 81 MG Tablet PO (10:49)
[2023-06-18] MEDS: Escitalopram Oxalate 10 MG Tablet 30 MG PO (10:49)
[2023-06-18] MEDS: Potassium Chloride Oral Tablet 20 MEQ 40 MEQ PO (10:56)
[2023-06-18] MEDS: Acetaminophen 500 MG Tablet 1000 MG PO (10:56)
[2023-06-18] MEDS: Pregabalin 75 MG Capsule PO ×2 (10:56→21:37)
[2023-06-18] MEDS: Azithromycin 500 MG in Dextrose 5%-Water (250mL Bag) 250 ML 250 MG IV (11:06)
[2023-06-18] MEDS: Ipratropium/Albuterol Sulfate 3 ML AMPUL.NEB INHALATION ×3 (11:11→18:34)
[2023-06-18] MEDS: Vancomycin HCl 2,000 MG in 0.9% Normal Saline (500mL Bag) 500 ML 250 MG IV (12:35)
--- NOTE | 2023-06-18 12:42 | PHA.PHARE_ITS ---
Consult Antibiotic Management Pharmacy has been consulted to manage selected antibiotic: Vancomycin Type of Intervention Type of Consult: New start Labs Labs: Sodium 140 mmol/L (136-145) 06/18/23 04:03 Potassium 3.5 mmol/L (3.5-5.1) 06/18/23 04:03 Chloride 105 mmol/L (98-107) 06/18/23 04:03 Carbon Dioxide 31.0 mmol/L (21.0-32.0) 06/18/23 04:03 Anion Gap 4 (5-15) L 06/18/23 04:03 BUN 11 mg/dL (7-18) 06/18/23 04:03 Creatinine 1.09 mg/dL (0.55-1.02) H 06/18/23 04:03 Est GFR (MDRD) Af Amer 66 mL/min (>60) 06/18/23 04:03 Est GFR (MDRD) Non-Af 55 mL/min (>60) L 06/18/23 04:03 BUN/Creatinine Ratio 10.1 RATIO (10-20) 06/18/23 04:03 Glucose 182 mg/dL (74-106) H 06/18/23 04:03 Microbiology Microbiology: Microbiology 06/17/23 12:10 Urine, Clean Catch Legionella Antigen - Final 06/17/23 12:10 Urine, Clean Catch Streptococcus pneumoniae Antigen (M - Final 06/17/23 04:16 Mucosa - Nose SARS-CoV-2, Influenza & RSV (PCR) - Final Dosing Weight Weight used for dosin kg Estimated Creatinine Clearance Estimated Creatinine Clearance: 67 ML/MIN Goal Trough Goal Trough: 15-20 mcg/mL Pharmacy Plan for Drug Dosing Pharmacy Plan for Drug Dosing: Give load of 2000mg IV x1, then continue with 1500mg IV q12h per [facility] dosing protocol. Will order a trough before the 4th total dose. Pharmacy Service will continue to monitor and adjust dosing as required. Follow-Up Labs Follow-Up Labs: Trough: Vancomycin Date/Time Labs Ordered Labs to be done on [date and time ordered]: 06/20/23 00:30
--- NOTE | 2023-06-18 14:26 | EX.PCM.CONCC ---
Assessment & Plan Assessment/Plan (1) Acute hypoxemic respiratory failure: PLAN: Plan RECOMMENDATIONS: 1. Resume home PAP therapy with naps and nightly, per home regimen. 2. Supplemental oxygen for saturations greater than 90%. 3. Continue scheduled bronchodilators. Wean IV steroids 4. Consider discontinuation of antibiotics 5. Encourage incentive spirometer and out of bed as tolerated 6. Agree with resumption of diuretics 7. Continue appropriate DVT prophylaxis. IMPRESSIONS: 1. Acute hypoxemic respiratory failure Patient with recurrent hospitalizations secondary to respiratory failure following COVID-19 pneumonia. Low clinical suspicion for infection given recent antibiotics, lack of fever and leukocytosis. Patient may have an element of cor pulmonale secondary to noncompliance with CPAP therapy. This will be reinitiated. Patient would likely benefit from reinitiation of diuretics. If patient develops fever off of antibiotics, could consider bronchoscopy, but patient would be at high risk given body habitus. 2. History of obstructive sleep apnea Continue nocturnal PAP therapy per home regimen. Stressed to the patient that this should be used with all sleep 3. Morbid obesity/tobacco dependency/rheumatoid arthritis/chronic pain syndrome/coronary artery disease/hypertension Complicates care, management, recovery and prognosis. Continue supportive care as noted above. This note was generated with [employer] dictation software. It may contain incorrect words, spelling, and punctuation that were not noted in checking the note before signing. HPI Consult Data Date of Consult: 06/18/23 HPI Narrative HPI Narrative: JUAN EAGLE is a 58 F, with past medical history listed below and well-known to me from previous admission, who presents to [facility] on 06/17/2023 secondary to progressive shortness of breath. Patient was recently hospitalized 2 weeks ago on supplemental oxygen at 2 to 4 L/min. Patient states she had been using her oxygen at home, but started to feel bad over the last 4 to 5 days. Patient stated that she did use her supplemental oxygen while awake. However, patient could not figure out how to use her supplemental oxygen with her CPAP. Patient states this resulted in her not using her CPAP for approximately 4 days. Patient had then developed increased cough and shortness of breath and was admitted to the hospital for further evaluation. Patient is on chronic immunosuppression secondary to methotrexate. In the ER, patient was afebrile, but tachypneic at 26 breaths/min. Patient was requiring 4 L nasal cannula to maintain saturation of 93. Patient did have some marginal blood pressures intermittently with a blood pressure of 91/64. Laboratory workup showed a white blood cell count of 5.1, hemoglobin of 8.2 and platelets of 199. Patient did have 3.7% eosinophils. Potassium was noted to be 2.7 with a bicarbonate of 28 and creatinine of 1.68 on presentation. Glucose was elevated at 156. BNP was 82. Chest x-ray showed increased interstitial infiltrates bilaterally. Patient was noted to drop her saturations in the 66% with any activity. Patient was admitted to the hospital for further evaluation. Since being in the hospital, patient has continued to require supplemental oxygen. A pulmonary consult was obtained today secondary to failure to improve. Patient was placed on Lasix yesterday with some improvement in saturations today. Patient overall feels subjectively improved compared to when she came into the hospital. However, patient is a relatively poor historian and providing information with regards to what happened at home. Patient states she does typically wear a CPAP at 16 cm of water. Given these limitations, review of systems otherwise negative from a constitutional, HEENT, respiratory, cardiovascular, GI, genitourinary, musculoskeletal, skin, neurologic, psychiatric and hematologic system unless stated above. [facility] Medical History Anemia Anxiety and depression Atherosclerotic heart disease of [place] coronary artery without angina pectoris Back pain Bipolar disorder Bipolar disorder Cardiac arrest with ventricular fibrillation Cardiomyopathy Coronary artery disease CPAP (continuous positive airway pressure) dependence Degeneration of intervertebral disc of lumbosacral region Diabetes mellitus, type II Dyslipidemia Dyspnea Essential hypertension GERD (gastroesophageal reflux disease) Hiatal hernia History of myocardial infarction HLD (hyperlipidemia) Hypertension Lumbar facet arthropathy Lumbosacral spondylosis Migraines Nicotine dependence Obesity Obesity (BMI 30-39.9) JOSE (obstructive sleep apnea) Osteoarthritis Post-menopausal Presence of stent in coronary artery (~05/17/22) Psoriasis Seizures Sleep apnea Smoker Smoking addiction ST elevation (STEMI) myocardial infarction Syncope Home Medications nitroglycerin 0.4 mg sublingual tablet 0.4 mg sublingual Q5M PRN CHEST PAIN #30 tabs 04/06/22 [Rx Last Taken Unknown] escitalopram oxalate 20 mg tablet 30 mg PO DAILY DEPRESSION 05/08/22 [History Last Taken 05/17/22] pregabalin 75 mg capsule 75 mg PO BID PAIN 05/08/22 [History Last Taken 05/17/22] aspirin 81 mg tablet,delayed release 81 mg PO DAILY@0800 HEART HEALTH #90 tabs 06/05/22 [Rx Last Taken 05/20/23] atorvastatin 40 mg tablet 40 mg PO QHS CHOLESTEROL #90 tabs 06/05/22 [Rx Last Taken 05/20/23] methotrexate sodium 2.5 mg tablet 15 mg PO QWEEK RHEUMATOID ARTHRITIS 06/05/22 [History Last Taken Unknown] zolpidem 10 mg tablet (Ambien) 10 mg PO QHS PRN SLEEP 08/29/22 [History Last Taken 05/20/23] albuterol sulfate 90 mcg/actuation aerosol inhaler 2 puff inhalation Q4H PRN SHORTNESS OF BREATH/WHEEZING 05/21/23 [History Last Taken 05/21/23] clopidogrel 75 mg tablet 75 mg PO DAILY BLOOD THINNER 05/21/23 [History Last Taken 05/19/23] fluticasone furoate 200 mcg-vilanterol 25 mcg/dose inhalation powder (Breo Ellipta) 1 inh inhalation DAILY ASTHMA 05/21/23 [History Last Taken Unknown] lansoprazole 30 mg capsule,delayed release 30 mg PO DAILY ACID REFLUX 05/21/23 [History Last Taken 05/20/23] lidocaine 5 % topical ointment 1 applic topical 4X/DAY PRN PAIN 05/21/23 [History Last Taken Unknown] valbenazine 80 mg capsule (Ingrezza) 80 mg PO DAILY tardive dyskinesia 05/21/23 [History Last Taken 05/20/23] amitriptyline 75 mg tablet 75 mg PO QHS sleep 05/31/23 [History Last Taken Unknown] lamotrigine 200 mg tablet See Rx Instructions PO .COMPLEX 05/31/23 [History Last Taken Unknown] acetaminophen 325 mg tablet 1,000 mg (3.0769 x 325 mg) PO Q8H PRN PRN Fever, pain 1-10/10 #0 tabs 06/05/23 [Rx Last Taken Unknown] alprazolam 0.5 mg tablet 0.5 mg PO BID PRN ANXIETY 3 days #6 tabs 06/05/23 [Rx Last Taken Unknown] buprenorphine 20 mcg/hour weekly transdermal patch 1 patch transdermal TH SEVERE PAIN 1 week #1 ea 06/05/23 [Rx Last Taken Unknown] furosemide 20 mg tablet 20 mg PO DAILY #30 tabs 06/06/23 [Rx Last Taken Unknown] Allergy/AdvReac Type Severity Reaction Status Date / Time tramadol HCl [From Ultram] Allergy Rash Verified 06/17/23 02:55 cariprazine [From Vraylar] AdvReac Other Verified 06/17/23 02:55 codeine AdvReac Vomiting Verified 06/17/23 02:55 hydromorphone [From Dilaudid] AdvReac Nausea/Vom/ Verified 06/17/23 02:55 Diarrhea oxycodone HCl [From Percocet] AdvReac Vomiting Verified 06/17/23 02:55 quetiapine [From Seroquel] AdvReac Other Verified 06/17/23 02:55 Family History Father CHF (congestive heart failure) Cardiomyopathy Heart disease Hypertension Cardiac arrest with ventricular fibrillation Mother CVA (cerebral vascular accident) Diabetes Surgical History History of back surgery History of carpal tunnel surgery Hx of knee surgery Hx of neck surgery Presence of coronary angioplasty implant and graft (~05/17/22) Social History household members: significant other Smoking Status: Former smoker alcohol intake: never substance use type: does not use caffeine: Yes Type: carbonated beverages Number of servings: 1 Physical Exam Const alert, oriented x3 and no apparent distress Constitutional Narrative: Slightly slow in answering questions General Appearance: cooperative HEENT normocephalic, head/scalp atraumatic and moist oral mucous membranes Eyes PERRL and EOMs intact bilaterally Neck Neck Narrative: Unable to assess JVD secondary to body habitus Resp normal respiratory effort and no retractions Effort and Inspection: Negative for actively coughing Auscultation: diminished lung sounds; Negative for rhonchi or wheezes Cardio regular rate, regular rhythm, S1 normal heart sound, S2 normal heart sound, no murmurs, no rub and no gallops GI normal to inspection, nondistended, normoactive bowel sounds, soft to palpation, non-tender and non-distended Extremity General Extremity: edema bilateral lower extremity Skin no rashes or lesions noted Neuro CN's II-XII intact bilaterally and moves all extremities Psych affect normal Medical Records Data Attestation: I reviewed the patient's medical records Medical Nutrition Assessment Dietitian: Malnutrition Criteria Met Start: 06/17/23 12:58 Freq: Status: Active Protocol: Document 06/17/23 12:58 SLA (Rec: 06/17/23 12:58 SLA Desktop) Nutrition Malnutrition Evidence of Malnutrition Exists Yes Malnutrition (severe): Acute Illness/Injury Evidenced By Suboptimal Energy Intake ( Severe),Weight Loss (Severe) Clinical Problem Acute Disease or Injury Related Malnutrition Etiology related to recent COVID and inadequate energy intake Signs/Symptoms as evidenced by 4.5% unintended wt loss in <10 days and <50% po intake of est nutritional needs x > 5 days Status Active Problem Recommendation Dietitian Recommendations/Changes Continue 1999 kj Cardiac diet as ordered Monitor need of ONS pending po intake as established Available if diet education desired by pt prior to d/c. Lab / Micro Data Attestation: I reviewed the patient's lab results. 06/18/23 04:03 06/18/23 04:03 Labs: Laboratory Results - last 24 hr 06/18/23 04:03: WBC 5.1, RBC 2.61 L, Hgb 8.6 L, Hct 25.5 L, MCV 97.7, MCH 33.0 H, MCHC 33.7, RDW Std Deviation 53.6 H, RDW Coeff of Erlinda 15.1 H, Plt Count 239, MPV 10.6, Immature Gran % (Auto) 0.600, Neut % (Auto) 91.2 H, Lymph % (Auto) 7.6 L, [place] % (Auto) 0.6, Eos % (Auto) 0.0, Baso % (Auto) 0.0, Absolute Neuts (auto) 4.7, Absolute Lymphs (auto) 0.39 L, Nucleated RBC % 0, Sodium 140, Potassium 3.5, Chloride 105, Carbon Dioxide 31.0, Anion Gap 4 L, BUN 11, Creatinine 1.09 H, Estim Creat Clear Calc 67.13, Est GFR (MDRD) Af Amer 66, Est GFR (MDRD) Non-Af 55 L, BUN/Creatinine Ratio 10.1, Glucose 182 H, Calcium 8.1 L, Total Bilirubin 0.60, AST 22, ALT 16, Alkaline Phosphatase 111, Total Protein 6.0 L, Albumin 2.0 L, Globulin 4.0, Albumin/Globulin Ratio 0.5 L Micro: Microbiology 06/17/23 12:10 Urine, Clean Catch Legionella Antigen - Final 06/17/23 12:10 Urine, Clean Catch Streptococcus pneumoniae Antigen (M - Final Imaging Radiology Impression Chest X-Ray 06/17/23 04:40 IMPRESSION: Again noted diffuse interstitial process, confluent at the bases, suggesting pulmonary edema given venous congestion and cardiomegaly. Infectious etiology is not excluded. Recommend follow-up to resolution. Electronically Signed: Sabas Gilbert MD at 5:54 EST , Chest CTA 06/18/23 07:32 IMPRESSION: 1. No evidence of acute pulmonary embolism. 2. Worsening bilateral pulmonary opacities. 3. Borderline cardiomegaly with question of increased right-sided heart pressure. Electronically Signed: Horacio Diallo MD at 8:50 EST , Charges/Coding Visit Charges Inpatient E&M: 94769 Init Hosp L2
[2023-06-18] MEDS: Piperacil/Tazobactam 3.375 GM in 0.9% Normal Saline (50mL MB+) 50 ML IV ×2 (15:39→21:38)
[2023-06-18] MEDS: Furosemide 40 MG/4 ML Vial IV (17:14)
[2023-06-18] MEDS: Amitriptyline 25 MG Tablet 75 MG PO (21:37)
[2023-06-18] MEDS: Atorvastatin Calcium 40 MG Tablet PO (21:37)
[2023-06-18] MEDS: Insulin Lispro 100 UNIT/ML INSULN.PEN SC (21:47)
[2023-06-18] MEDS: Zolpidem Tartrate 5 MG Tablet 10 MG PO (21:52)
[2023-06-18 22:03] LABS: Bedside Glucose 164 mg/dL (74-106)
[2023-06-19] VITALS (12 sets, daily range): BP systolic 127–143; BP diastolic 51–74; PULSE 60–81; RESP 18–24; TEMP 36.4–36.8; O2SAT 92–99
[2023-06-19] MEDS: Vancomycin HCl 1,500 MG in 0.9% Normal Saline (500mL Bag) 500 ML 250 MG IV (00:16)
[2023-06-19 04:11] LABS: Absolute Lymphocyte Count 0.29 X10^3/uL (0.83-4.51); Absolute Neutrophil Count 8.7 X10^3/uL (2.0-7.7); Basophil# 0.01 X10^3/uL; Basophil% 0.1 % (0-1); Hematocrit 24.2 % (37-47); Hemoglobin 8.1 g/dL (12.0-15.0); Lymphocyte # 0.29 X10^3/ul (0.83-4.51); Lymphocyte % 3.2 % (19-41); Mean Corp Hgb Conc 33.5 g/dL (32-36); Mean Corpuscular Hgb 32.4 pg (27.0-32.0); Mean Corpuscular Volume 96.8 fL (81-99); Mean Platelet Vol. 9.9 fl (6.2-12.0); Monocyte# 0.03 X10^3/uL; Monocyte% 0.3 % (0-10); NRBC Flagged by Analyzer 0 % (0-5); Neutrophil # 8.66 X10^3/uL (2.7-7.7); Neutrophil % 95.4 % (47-70); POSITIVE DIFFERENTIAL YES; POSITIVE MORPHOLOGY YES; Platelet Count 304 K/mm3 (150-450); RBC Distribution Width CV 15.4 % (11.6-14.6); RBC Distribution Width SD 54.7 fl (35.1-43.9); White Blood Count 9.1 K/mm3 (4.4-11.0)
[2023-06-19 04:17] LABS: Differential Indicated SCAN CRITERIA MET
[2023-06-19 04:30] LABS: ALB/GLOB Ratio 0.5 RATIO (0.9-2.4); AST(SGOT) 18 U/L (15-37); Alanine Aminotransfer ALT/SGPT 17 U/L (13-56); Alkaline Phosphatase 97 U/L (45-117); Anion Gap 7 (5-15); BUN 14 mg/dL (7-18); BUN/Creat Ratio 11.4 RATIO (10-20); Chloride 103 mmol/L (98-107); Creatinine, Serum 1.23 mg/dL (0.55-1.02); EST Glomerular Filtration Rate 48 mL/min (>60); Est Glom Filt Rate - Afr Amer 58 mL/min (>60); Estimated Creatinine Clearance 59.49 ml/min; Globulin 3.8 g/dL (2.2-4.2); Glucose 192 mg/dL (74-106); Protein, Total 5.8 g/dL (6.4-8.2); Sodium Level 139 mmol/L (136-145)
[2023-06-19] MEDS: Piperacil/Tazobactam 3.375 GM in 0.9% Normal Saline (50mL MB+) 50 ML IV ×3 (05:15→22:17)
--- NOTE | 2023-06-19 07:00 | PN.CC_ITS ---
Assessment & Plan Assessment/Plan (1) Acute hypoxemic respiratory failure: PLAN: Plan RECOMMENDATIONS: 1. Resume home PAP therapy with naps and nightly, per home regimen. 2. Supplemental oxygen for saturations greater than 90%. 3. Continue scheduled bronchodilators. Possibly discontinue steroids tomorrow 4. Consider discontinuation of all antibiotics. Discontinue vancomycin for fluid concerns 5. Encourage incentive spirometer and out of bed as tolerated 6. Agree with resumption of diuretics 7. Continue appropriate DVT prophylaxis. IMPRESSIONS: 1. Acute hypoxemic respiratory failure Patient with recurrent hospitalizations secondary to respiratory failure following COVID-19 pneumonia. Low clinical suspicion for infection given recent antibiotics, lack of fever and leukocytosis. Vancomycin will be discontinued given low risk for MRSA and volume concerns. Patient may have an element of cor pulmonale secondary to noncompliance with CPAP therapy. This was reinitiated. Patient will likely benefit from reinitiation of diuretics. If patient develops fever off of antibiotics, could consider bronchoscopy, but patient would be at high risk given body habitus. 2. History of obstructive sleep apnea Continue nocturnal PAP therapy per home regimen. Stressed to the patient that this should be used with all sleep 3. Morbid obesity/tobacco dependency/rheumatoid arthritis/chronic pain syndrome/coronary artery disease/hypertension Complicates care, management, recovery and prognosis. Continue supportive care as noted above. This note was generated with [employer] dictation software. It may contain incorrect words, spelling, and punctuation that were not noted in checking the note before signing. Subjective Subjective Patient did well overnight. No acute issues were reported. Patient was able to use CPAP and tolerated well. Patient responded well to diuretics. Patient tolerating p.o. diet. Objective Data Objective Data Vital Signs: Vital Signs Temp Pulse Resp BP Pulse Ox O2 Del Method O2 Flow Rate 36.6 C 69 21 H 127/68 H 96 Nasal Cannula 4 06/19/23 03:49 06/19/23 03:49 06/19/23 03:49 06/19/23 03:49 06/19/23 03:49 06/19/23 04:00 06/19/23 04:00 Oxygen Flow Rate (L/min) 4 Oxygen Delivery Method Nasal Cannula Weight: 114.986 kg Body Mass Index (BMI) 47.9 Intake & Output: Intake and Output for Last 24 Hours 06/17/23 06/18/23 06/19/23 23:59 23:59 23:59 Intake Total 985 / 985 845 / 845 580 / 580 Output Total 650 / 650 1000 / 1000 0 / 0 Balance 335 / 335 -155 / -155 580 / 580 Medical Nutrition Assessment Dietitian: Malnutrition Criteria Met Start: 06/17/23 12:58 Freq: Status: Active Protocol: Document 06/17/23 12:58 SLA (Rec: 06/17/23 12:58 SLA Desktop) Nutrition Malnutrition Evidence of Malnutrition Exists Yes Malnutrition (severe): Acute Illness/Injury Evidenced By Suboptimal Energy Intake ( Severe),Weight Loss (Severe) Clinical Problem Acute Disease or Injury Related Malnutrition Etiology related to recent COVID and inadequate energy intake Signs/Symptoms as evidenced by 4.5% unintended wt loss in <10 days and <50% po intake of est nutritional needs x > 5 days Status Active Problem Recommendation Dietitian Recommendations/Changes Continue 1999 kj Cardiac diet as ordered Monitor need of ONS pending po intake as established Available if diet education desired by pt prior to d/c. Lab / Micro Data Attestation: I reviewed the patient's lab results. 06/19/23 04:04 06/19/23 04:04 Labs: Laboratory Results - last 24 hr 06/18/23 21:44: POC Glucose 164 H 06/19/23 04:04: WBC 9.1, RBC 2.50 L, Hgb 8.1 L, Hct 24.2 L, MCV 96.8, MCH 32.4 H , MCHC 33.5, RDW Std Deviation 54.7 H, RDW Coeff of Erlinda 15.4 H, Plt Count 304, MPV 9.9, Immature Gran % (Auto) 1.000 H, Neut % (Auto) 95.4 H, Lymph % (Auto) 3.2 L, [place] % (Auto) 0.3, Eos % (Auto) 0.0, Baso % (Auto) 0.1, Absolute Neuts (auto) 8.7 H, Absolute Lymphs (auto) 0.29 L, Nucleated RBC % 0, Sodium 139, Potassium 4.0, Chloride 103, Carbon Dioxide 29.0, Anion Gap 7, BUN 14, Creatinine 1.23 H, Estim Creat Clear Calc 59.49, Est GFR (MDRD) Af Amer 58 L, Est GFR (MDRD) Non-Af 48 L, BUN/Creatinine Ratio 11.4, Glucose 192 H, Calcium 8.0 L, Total Bilirubin 0.80, AST 18, ALT 17, Alkaline Phosphatase 97, Total Protein 5.8 L, Albumin 2.0 L, Globulin 3.8, Albumin/Globulin Ratio 0.5 L Micro: Microbiology 06/18/23 16:20 Stool Stool Occult Blood (HERMES) - Final 06/17/23 12:10 Urine, Clean Catch Legionella Antigen - Final 06/17/23 12:10 Urine, Clean Catch Streptococcus pneumoniae Antigen (M - Final 06/17/23 04:16 Mucosa - Nose SARS-CoV-2, Influenza & RSV (PCR) - Final Radiography Diagnostic Testing: Radiology Impression Chest CTA 06/18/23 07:32 IMPRESSION: 1. No evidence of acute pulmonary embolism. 2. Worsening bilateral pulmonary opacities. 3. Borderline cardiomegaly with question of increased right-sided heart pressure. Electronically Signed: Horacio Diallo MD at 8:50 EST , Physical Exam Const alert, oriented x3 and no apparent distress Constitutional Narrative: A little quicker and answering questions today General Appearance: cooperative HEENT normocephalic, head/scalp atraumatic and moist oral mucous membranes Eyes PERRL and EOMs intact bilaterally Neck Neck Narrative: Unable to assess JVD secondary to body habitus Resp normal respiratory effort and no retractions Effort and Inspection: Negative for actively coughing Auscultation: diminished lung sounds; Negative for rhonchi or wheezes Cardio regular rate, regular rhythm, S1 normal heart sound, S2 normal heart sound, no murmurs, no rub and no gallops GI normal to inspection, nondistended, normoactive bowel sounds, soft to palpation, non-tender and non-distended Extremity General Extremity: edema bilateral lower extremity Skin no rashes or lesions noted Neuro CN's II-XII intact bilaterally and moves all extremities Psych affect normal Charges/Coding Visit Charges Inpatient E&M: 41342 Subs Hosp L2
[2023-06-19] MEDS: Ipratropium/Albuterol Sulfate 3 ML AMPUL.NEB INHALATION ×5 (07:21→22:36)
--- NOTE | 2023-06-19 07:47 | PCM.PN.HOSP ---
Reason for Visit Reason for Visit: Diagnoses Anemia, unspecified (06/17/23) Hypokalemia (06/17/23) Acute respiratory failure with hypoxia (06/17/23) Acute and chronic respiratory failure, unspecified whether with hypoxia or hypercapnia (06/17/23) Subjective Subjective Breathing better. Objective Data Objective Data Vital Signs: Vital Signs Temp Pulse Resp BP Pulse Ox O2 Del Method O2 Flow Rate 36.6 C 69 18 127/68 H 96 Nasal Cannula 2 06/19/23 03:49 06/19/23 07:22 06/19/23 07:22 06/19/23 03:49 06/19/23 07:22 06/19/23 07:22 06/19/23 07:22 Oxygen Flow Rate (L/min) 2 Oxygen Delivery Method Nasal Cannula Weight: 114.986 kg Body Mass Index (BMI) 47.9 Intake & Output: Intake and Output for Last 24 Hours 06/17/23 06/18/23 06/19/23 23:59 23:59 23:59 Intake Total 985 / 985 845 / 845 580 / 580 Output Total 650 / 650 1000 / 1000 0 / 0 Balance 335 / 335 -155 / -155 580 / 580 Medical Nutrition Assessment Dietitian: Malnutrition Criteria Met Start: 06/17/23 12:58 Freq: Status: Active Protocol: Document 06/17/23 12:58 DAVE (Rec: 06/17/23 12:58 DAVE Desktop) Nutrition Malnutrition Evidence of Malnutrition Exists Yes Malnutrition (severe): Acute Illness/Injury Evidenced By Suboptimal Energy Intake ( Severe),Weight Loss (Severe) Clinical Problem Acute Disease or Injury Related Malnutrition Etiology related to recent COVID and inadequate energy intake Signs/Symptoms as evidenced by 4.5% unintended wt loss in <10 days and <50% po intake of est nutritional needs x > 5 days Status Active Problem Recommendation Dietitian Recommendations/Changes Continue 1999 kj Cardiac diet as ordered Monitor need of ONS pending po intake as established Available if diet education desired by pt prior to d/c. Lab / Micro Data 06/19/23 04:04 06/19/23 04:04 Labs: Laboratory Results - last 24 hr 06/18/23 21:44: POC Glucose 164 H 06/19/23 04:04: WBC 9.1, RBC 2.50 L, Hgb 8.1 L, Hct 24.2 L, MCV 96.8, MCH 32.4 H, MCHC 33.5, RDW Std Deviation 54.7 H, RDW Coeff of Erlinda 15.4 H, Plt Count 304, MPV 9.9, Immature Gran % (Auto) 1.000 H, Neut % (Auto) 95.4 H, Lymph % (Auto) 3.2 L, [place] % (Auto) 0.3, Eos % (Auto) 0.0, Baso % (Auto) 0.1, Absolute Neuts (auto) 8.7 H, Absolute Lymphs (auto) 0.29 L, Nucleated RBC % 0, Sodium 139, Potassium 4.0, Chloride 103, Carbon Dioxide 29.0, Anion Gap 7, BUN 14, Creatinine 1.23 H, Estim Creat Clear Calc 59.49, Est GFR (MDRD) Af Amer 58 L, Est GFR (MDRD) Non-Af 48 L, BUN/Creatinine Ratio 11.4, Glucose 192 H, Calcium 8.0 L, Total Bilirubin 0.80, AST 18, ALT 17, Alkaline Phosphatase 97, Total Protein 5.8 L, Albumin 2.0 L, Globulin 3.8, Albumin/Globulin Ratio 0.5 L Micro: Microbiology 06/18/23 16:20 Stool Stool Occult Blood (HERMES) - Final 06/17/23 12:10 Urine, Clean Catch Legionella Antigen - Final 06/17/23 12:10 Urine, Clean Catch Streptococcus pneumoniae Antigen (M - Final 06/17/23 04:16 Mucosa - Nose SARS-CoV-2, Influenza & RSV (PCR) - Final Radiography Diagnostic Testing: Radiology Impression Chest CTA 06/18/23 07:32 IMPRESSION: 1. No evidence of acute pulmonary embolism. 2. Worsening bilateral pulmonary opacities. 3. Borderline cardiomegaly with question of increased right-sided heart pressure. Electronically Signed: Horacio Diallo MD at 8:50 EST , Physical Exam Const alert and no apparent distress Resp normal respiratory effort and no retractions Resp Narrative: basilar crackles. Cardio regular rate, regular rhythm, S1 normal heart sound and S2 normal heart sound GI normal to inspection, nondistended, normoactive bowel sounds, soft to palpation, non-tender and non-distended Neuro Sensorium / Orientation: awake and alert Assessment & Plan Assessment/Plan (1) Acute on chronic respiratory failure: (2) Anemia: (3) Acute hypokalemia: PLAN: Plan Acute on chronic hypoxic respiratory failure Improving Patient was ambulated on 4 L and was dropping 80s with oxygen. Chest x-ray shows chronic interstitial changes likely related with the patient's previous COVID-19 pneumonitis. Cannot determine if patient has any new infiltrates or worsening edema. May be exacerbated by her underlying asthma and COVID-19 pneumonitis Treatment at this time will include methylprednisolone, bronchodilators, empiric antibiotics COVID-19, influenza and RSV are negative, strep and leg negative. D-dimer 1.12. CTA chest shows overall worsening infiltrates. Change abx to pip/tazo and vancomycin. Resume furosemide IV. Wean oxygen as tolerated. PEP therapy. Pulm input appreciated. Follow up infectious work up. If negative, likely can DC abx. Anemia Has been trending down over the past month. Patient denies any medication. Patient does take aspirin and clopidogrel. Patient is on aspirin and clopidogrel for PCI that she had in April 2022. I will hold her clopidogrel for now. Check Hemoccult iron low, but elevated ferritin; B12, folate and TSH WNL. Start Ferrous Sulfate. Hypokalemia Resolved with replacement Likely secondary to furosemide Ordered placement in the emergency room Acute kidney injury Creatinine has been slowly trending up over the past several weeks. Currently is at 1.68. Baseline creatinine is around 1. Improved. Chronic conditions CAD: Patient had PCI in April 2022. Holding clopidogrel given the anemia. Continue with aspirin. Morbid obesity with BMI of 50.4. Complicates care and recovery. Chronic pain: Buprenorphine Depression: Continue with escitalopram. Tardive dyskinesia: Continue with Ingrezza. Diabetes mellitus type 2: Sliding scale insulin. Return arthritis: On methotrexate. JOSE: Continue with CPAP VTE prophylaxis with SCDs CODE STATUS: Addressed with the patient. Patient was unsure. Told patient we will leave her on full CODE STATUS at this point time but she may change her mind at any point and notify us if she does so. Charges/Coding Visit Charges Inpatient E&M: 71675 Subs Hosp L2
[2023-06-19] MEDS: Insulin Lispro 100 UNIT/ML INSULN.PEN SC ×4 (08:55→22:20)
[2023-06-19] MEDS: Escitalopram Oxalate 10 MG Tablet 30 MG PO (08:55)
[2023-06-19] MEDS: Pantoprazole Sodium 40 MG Tablet PO (08:55)
[2023-06-19] MEDS: Aspirin E.C. 81 MG Tablet PO (08:56)
[2023-06-19] MEDS: Furosemide 40 MG/4 ML Vial IV ×2 (08:56→17:14)
[2023-06-19] MEDS: guaiFENesin 600 MG Tablet PO ×2 (08:56→22:03)
[2023-06-19] MEDS: VALBENAZINE TOSYLATE 80 MG CAPSULE PO (08:56)
[2023-06-19] MEDS: Pregabalin 75 MG Capsule PO ×2 (08:59→22:01)
[2023-06-19 11:52] LABS: Bedside Glucose 212 mg/dL (74-106)
[2023-06-19 17:01] LABS: Bedside Glucose 238 mg/dL (74-106)
[2023-06-19] MEDS: 0.9% Saline Lock 10 ML Syringe IV ×2 (17:14→22:02)
[2023-06-19] MEDS: Zolpidem Tartrate 5 MG Tablet 10 MG PO (22:02)
[2023-06-19] MEDS: Atorvastatin Calcium 40 MG Tablet PO (22:02)
[2023-06-19] MEDS: Amitriptyline 25 MG Tablet 75 MG PO (22:02)
[2023-06-19 22:41] LABS: Bedside Glucose 151 mg/dL (74-106)
--- NOTE | 2023-06-19 23:05 | CPS ---
Pt placed on own PAP machine for the night, with 4L bleed.
[2023-06-20] VITALS (7 sets, daily range): BP systolic 106–116; BP diastolic 49–59; PULSE 71–87; RESP 16–22; TEMP 36.4–36.7; O2SAT 96–100
[2023-06-20] MEDS: Piperacil/Tazobactam 3.375 GM in 0.9% Normal Saline (50mL MB+) 50 ML IV (05:53)
[2023-06-20] MEDS: Insulin Lispro 100 UNIT/ML INSULN.PEN SC ×4 (06:29→21:03)
[2023-06-20 06:48] LABS: Bedside Glucose 187 mg/dL (74-106)
[2023-06-20 07:11] LABS: Absolute Lymphocyte Count 0.44 X10^3/uL (0.83-4.51); Absolute Neutrophil Count 3.9 X10^3/uL (2.0-7.7); Basophil# 0.01 X10^3/uL; Basophil% 0.2 % (0-1); Eosinophil# 0.01 X10^3/uL; Eosinophils% 0.2 % (0-5); Hematocrit 23.1 % (37-47); Hemoglobin 7.7 g/dL (12.0-15.0); Lymphocyte # 0.44 X10^3/ul (0.83-4.51); Lymphocyte % 9.8 % (19-41); Mean Corp Hgb Conc 33.3 g/dL (32-36); Mean Corpuscular Hgb 32.5 pg (27.0-32.0); Mean Corpuscular Volume 97.5 fL (81-99); Monocyte# 0.01 X10^3/uL; Monocyte% 0.2 % (0-10); NRBC Flagged by Analyzer 0 % (0-5); Neutrophil # 3.93 X10^3/uL (2.7-7.7); Neutrophil % 87.8 % (47-70); POSITIVE DIFFERENTIAL YES; POSITIVE MORPHOLOGY YES; Platelet Count 285 K/mm3 (150-450); RBC Distribution Width CV 15.1 % (11.6-14.6); RBC Distribution Width SD 53.6 fl (35.1-43.9); Red Blood Count 2.37 M/mm3 (4.2-5.4); White Blood Count 4.5 K/mm3 (4.4-11.0)
[2023-06-20 07:12] LABS: Differential Indicated SCAN CRITERIA MET
[2023-06-20 07:40] LABS: Differential Comment SCANNED
[2023-06-20 07:51] LABS: Anion Gap 5 (5-15); BUN 17 mg/dL (7-18); BUN/Creat Ratio 12.8 RATIO (10-20); Calcium,Total 8.6 mg/dL (8.5-10.1); Chloride 99 mmol/L (98-107); Creatinine, Serum 1.33 mg/dL (0.55-1.02); EST Glomerular Filtration Rate 44 mL/min (>60); Est Glom Filt Rate - Afr Amer 53 mL/min (>60); Estimated Creatinine Clearance 55.02 ml/min; Glucose 193 mg/dL (74-106); Potassium 3.8 mmol/L (3.5-5.1); Sodium Level 136 mmol/L (136-145)
--- NOTE | 2023-06-20 08:49 | CASEMGMT ---
Social Work As per initial saddle maker, pt does not have LW/POA and declined further information. KALANI Torres
--- NOTE | 2023-06-20 09:08 | PN.HOSP_ITS ---
Reason for Visit Reason for Visit: Diagnoses Anemia, unspecified (06/17/23) Hypokalemia (06/17/23) Acute respiratory failure with hypoxia (06/17/23) Acute and chronic respiratory failure, unspecified whether with hypoxia or hypercapnia (06/17/23) Subjective Subjective Breathing better. Objective Data Objective Data Vital Signs: Vital Signs Temp Pulse Resp BP Pulse Ox O2 Del Method O2 Flow Rate 36.5 C L 71 16 116/57 L 98 Nasal Cannula 4 06/20/23 03:37 06/20/23 03:37 06/20/23 03:37 06/20/23 03:37 06/20/23 03:37 06/20/23 07:44 06/20/23 07:44 Oxygen Flow Rate (L/min) 4 Oxygen Delivery Method Nasal Cannula Weight: 114.986 kg Body Mass Index (BMI) 47.9 Intake & Output: Intake and Output for Last 24 Hours 06/18/23 06/19/23 06/20/23 23:59 23:59 23:59 Intake Total 845 / 845 1340 / 1340 50 / 50 Output Total 1000 / 1000 1800 / 1800 0 / 0 Balance -155 / -155 -460 / -460 50 / 50 Medical Nutrition Assessment Dietitian: Malnutrition Criteria Met Start: 06/17/23 12:58 Freq: Status: Active Protocol: Document 06/19/23 14:26 AG (Rec: 06/19/23 14:26 AG Desktop) Nutrition Malnutrition Evidence of Malnutrition Exists No Malnutrition (severe): Acute Illness/Injury Clinical Problem Acute Disease or Injury Related Malnutrition Etiology related to recent COVID and inadequate energy intake Signs/Symptoms as evidenced by 4.5% unintended wt loss in <10 days and <50% po intake of est nutritional needs x > 5 days Status Resolved Problem Recommendation Dietitian Recommendations/Changes continue cardiac, 2000 calorie diet as tolerated Lab / Micro Data 06/20/23 06:35 06/20/23 06:35 Labs: Laboratory Results - last 24 hr 06/19/23 11:32: POC Glucose 212 H 06/19/23 16:30: POC Glucose 238 H 06/19/23 22:20: POC Glucose 151 H 06/20/23 06:27: POC Glucose 187 H 06/20/23 06:35: WBC 4.5, RBC 2.37 L, Hgb 7.7 L, Hct 23.1 L, MCV 97.5, MCH 32.5 H , MCHC 33.3, RDW Std Deviation 53.6 H, RDW Coeff of Erlinda 15.1 H, Plt Count 285, MPV 10.0, Immature Gran % (Auto) 1.800 H, Neut % (Auto) 87.8 H, Lymph % (Auto) 9.8 L, [place] % (Auto) 0.2, Eos % (Auto) 0.2, Baso % (Auto) 0.2, Absolute Neuts (auto) 3.9, Absolute Lymphs (auto) 0.44 L, Nucleated RBC % 0, Differential Comment SCANNED, Diff Path Review September, Sodium 136, Potassium 3.8, Chloride 99, Carbon Dioxide 32.0, Anion Gap 5, BUN 17, Creatinine 1.33 H, Estim Creat Clear Calc 55.02, Est GFR (MDRD) Af Amer 53 L, Est GFR (MDRD) Non-Af 44 L, BUN/Creatinine Ratio 12.8, Glucose 193 H, Calcium 8.6 Micro: Microbiology 06/18/23 16:20 Stool Stool Occult Blood (HERMES) - Final 06/17/23 12:10 Urine, Clean Catch Legionella Antigen - Final 06/17/23 12:10 Urine, Clean Catch Streptococcus pneumoniae Antigen (M - Final 06/17/23 04:16 Mucosa - Nose SARS-CoV-2, Influenza & RSV (PCR) - Final Physical Exam Const alert and no apparent distress Resp Resp Narrative: Coarse breath sounds bilaterally Cardio regular rate, regular rhythm, S1 normal heart sound and S2 normal heart sound GI normal to inspection, nondistended, normoactive bowel sounds and soft to palpation Extremity normal to inspection Assessment & Plan Assessment/Plan (1) Acute on chronic respiratory failure: (2) Anemia: (3) Acute hypokalemia: PLAN: Plan Acute on chronic hypoxic respiratory failure * Suspect due to prior COVID-19 pneumonitis, asthma but also acute heart failure with preserved ejection fraction (EF of 65% on echo from 05/31 * Improving * Patient was ambulated on 4 L and was dropping 80s with oxygen. Chest x-ray shows chronic interstitial changes likely related with the patient's previous COVID-19 pneumonitis. Cannot determine if patient has any new infiltrates or worsening edema. * COVID-19, influenza and RSV are negative, strep and leg negative. * D-dimer 1.12. CTA chest shows overall worsening infiltrates. * Wean oxygen as tolerated. * PEP therapy. * Pulm input appreciated. * Infectious work up so far negative, DC abx and observe * Continue w IV furosemide Anemia * Has been trending down over the past month. Patient denies any medication. * Patient does take aspirin and clopidogrel. * Patient is on aspirin and clopidogrel for PCI that she had in April 2022. I will hold her clopidogrel for now. * FOB negative * iron low, but elevated ferritin; B12, folate and TSH WNL. * Continue Ferrous Sulfate. Hypokalemia * Resolved with replacement * Likely secondary to furosemide * Ordered placement in the emergency room Acute kidney injury * Creatinine has been slowly trending up over the past several weeks. Baseline creatinine is around 1. * Improved. Chronic conditions * CAD: Patient had PCI in April 2022. Holding clopidogrel given the anemia. Continue with aspirin. * Morbid obesity with BMI of 50.4. Complicates care and recovery. * Chronic pain: Buprenorphine * Depression: Continue with escitalopram. * Tardive dyskinesia: Continue with Ingrezza. * Diabetes mellitus type 2: Sliding scale insulin. 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 * JOSE: Continue with CPAP VTE prophylaxis with SCDs CODE STATUS: Addressed with the patient. Patient was unsure. Told patient we will leave her on full CODE STATUS at this point time but she may change her mind at any point and notify us if she does so. Disposition: To be determined. Continue with the IV furosemide and monitor. Hopefully patient can be discharged in next 1 to 2 days. Charges/Coding Visit Charges Inpatient E&M: 55214 Subs Hosp L2
[2023-06-20] MEDS: 0.9% Saline Lock 10 ML Syringe IV ×2 (09:11→17:15)
[2023-06-20] MEDS: VALBENAZINE TOSYLATE 80 MG CAPSULE PO (09:11)
[2023-06-20] MEDS: Pregabalin 75 MG Capsule PO ×2 (09:11→21:05)
[2023-06-20] MEDS: Ferrous Sulfate 325 MG Tablet PO (09:11)
[2023-06-20] MEDS: Pantoprazole Sodium 40 MG Tablet PO (09:11)
[2023-06-20] MEDS: Furosemide 40 MG/4 ML Vial IV ×2 (09:11→17:13)
[2023-06-20] MEDS: guaiFENesin 600 MG Tablet PO ×2 (09:12→21:05)
[2023-06-20] MEDS: Escitalopram Oxalate 10 MG Tablet 30 MG PO (09:12)
[2023-06-20] MEDS: Aspirin E.C. 81 MG Tablet PO (09:12)
--- NOTE | 2023-06-20 09:50 | PN.CC_ITS ---
Assessment & Plan Assessment/Plan (1) Acute hypoxemic respiratory failure: PLAN: Plan RECOMMENDATIONS: 1. Resume home PAP therapy with naps and nightly, per home regimen. 2. Supplemental oxygen for saturations greater than 90%. 3. Continue scheduled bronchodilators. Okay to discontinue steroids 4. Monitor clinically off antibiotics 5. Encourage incentive spirometer and out of bed as tolerated 6. Agree with resumption of diuretics 7. Continue appropriate DVT prophylaxis. IMPRESSIONS: 1. Acute hypoxemic respiratory failure Patient with recurrent hospitalizations secondary to respiratory failure following COVID-19 pneumonia. Low clinical suspicion for infection given recent antibiotics, lack of fever and leukocytosis. Will monitor clinically off antibiotics. Patient may have an element of cor pulmonale secondary to noncompliance with CPAP therapy. This was reinitiated. Patient will likely benefit from reinitiation of diuretics. If patient develops fever off of antibiotics, could consider bronchoscopy, but patient would be at high risk given body habitus. 2. History of obstructive sleep apnea Continue nocturnal PAP therapy per home regimen. Stressed to the patient that this should be used with all sleep 3. Morbid obesity/tobacco dependency/rheumatoid arthritis/chronic pain syndrome/coronary artery disease/hypertension Complicates care, management, recovery and prognosis. Continue supportive care as noted above. This note was generated with [employer] dictation software. It may contain incorrect words, spelling, and punctuation that were not noted in checking the note before signing. Subjective Subjective Patient did well overnight. Patient was compliant with CPAP therapy and tolerated this well. Patient subjectively is slowly improving. Oxygen danna have decreased. Objective Data Objective Data Vital Signs: Vital Signs Temp Pulse Resp BP Pulse Ox O2 Del Method O2 Flow Rate 36.4 C L 87 20 H 106/58 L 96 Nasal Cannula 4 06/20/23 09:10 06/20/23 09:10 06/20/23 09:10 06/20/23 09:10 06/20/23 09:10 06/20/23 09:10 06/20/23 09:10 Oxygen Flow Rate (L/min) 4 Oxygen Delivery Method Nasal Cannula Weight: 114.986 kg Body Mass Index (BMI) 47.9 Intake & Output: Intake and Output for Last 24 Hours 06/18/23 06/19/23 06/20/23 23:59 23:59 23:59 Intake Total 845 / 845 1340 / 1340 50 / 50 Output Total 1000 / 1000 1800 / 1800 0 / 0 Balance -155 / -155 -460 / -460 50 / 50 Medical Nutrition Assessment Dietitian: Malnutrition Criteria Met Start: 06/17/23 12:58 Freq: Status: Active Protocol: Document 06/19/23 14:26 AG (Rec: 06/19/23 14:26 AG Desktop) Nutrition Malnutrition Evidence of Malnutrition Exists No Malnutrition (severe): Acute Illness/Injury Clinical Problem Acute Disease or Injury Related Malnutrition Etiology related to recent COVID and inadequate energy intake Signs/Symptoms as evidenced by 4.5% unintended wt loss in <10 days and <50% po intake of est nutritional needs x > 5 days Status Resolved Problem Recommendation Dietitian Recommendations/Changes continue cardiac, 2000 calorie diet as tolerated Lab / Micro Data Attestation: I reviewed the patient's lab results. 06/20/23 06:35 06/20/23 06:35 Labs: Laboratory Results - last 24 hr 06/19/23 11:32: POC Glucose 212 H 06/19/23 16:30: POC Glucose 238 H 06/19/23 22:20: POC Glucose 151 H 06/20/23 06:27: POC Glucose 187 H 06/20/23 06:35: WBC 4.5, RBC 2.37 L, Hgb 7.7 L, Hct 23.1 L, MCV 97.5, MCH 32.5 H , MCHC 33.3, RDW Std Deviation 53.6 H, RDW Coeff of Erlinda 15.1 H, Plt Count 285, MPV 10.0, Immature Gran % (Auto) 1.800 H, Neut % (Auto) 87.8 H, Lymph % (Auto) 9.8 L, [place] % (Auto) 0.2, Eos % (Auto) 0.2, Baso % (Auto) 0.2, Absolute Neuts (auto) 3.9, Absolute Lymphs (auto) 0.44 L, Nucleated RBC % 0, Differential Comment SCANNED, Diff Path Review September foll, Sodium 136, Potassium 3.8, Chloride 99, Carbon Dioxide 32.0, Anion Gap 5, BUN 17, Creatinine 1.33 H, Estim Creat Clear Calc 55.02, Est GFR (MDRD) Af Amer 53 L, Est GFR (MDRD) Non-Af 44 L, BUN/Creatinine Ratio 12.8, Glucose 193 H, Calcium 8.6 Micro: Microbiology 06/18/23 09:40 Blood Culture (Wb) - Right Hand Blood Culture - Preliminary No growth in 48 hours. 06/18/23 09:20 Blood Culture (Wb) - Left Hand Blood Culture - Preliminary No growth in 48 hours. 06/18/23 16:20 Stool Stool Occult Blood (HERMES) - Final 06/17/23 12:10 Urine, Clean Catch Legionella Antigen - Final 06/17/23 12:10 Urine, Clean Catch Streptococcus pneumoniae Antigen (M - Final 06/17/23 04:16 Mucosa - Nose SARS-CoV-2, Influenza & RSV (PCR) - Final Physical Exam Const alert, oriented x3 and no apparent distress Constitutional Narrative: A little quicker and answering questions today General Appearance: cooperative HEENT normocephalic, head/scalp atraumatic and moist oral mucous membranes Eyes PERRL and EOMs intact bilaterally Neck Neck Narrative: Unable to assess JVD secondary to body habitus Resp normal respiratory effort and no retractions Effort and Inspection: Negative for actively coughing Auscultation: diminished lung sounds; Negative for rhonchi or wheezes Cardio regular rate, regular rhythm, S1 normal heart sound, S2 normal heart sound, no murmurs, no rub and no gallops GI normal to inspection, nondistended, normoactive bowel sounds, soft to palpation, non-tender and non-distended Extremity General Extremity: edema bilateral lower extremity Skin no rashes or lesions noted Neuro CN's II-XII intact bilaterally and moves all extremities Psych affect normal Charges/Coding Visit Charges Inpatient E&M: 74955 Subs Hosp L2
[2023-06-20] MEDS: Buprenorphine 10 MCG PATCH.TDWK 2 PATCH TD (10:24)
[2023-06-20] MEDS: Ipratropium/Albuterol Sulfate 3 ML AMPUL.NEB INHALATION ×3 (10:51→18:20)
[2023-06-20 11:55] LABS: Bedside Glucose 303 mg/dL (74-106)
[2023-06-20 12:59] LABS: Pathologist Review Reviewed
[2023-06-20 17:31] LABS: Bedside Glucose 197 mg/dL (74-106)
[2023-06-20] MEDS: Atorvastatin Calcium 40 MG Tablet PO (21:05)
[2023-06-20] MEDS: Zolpidem Tartrate 5 MG Tablet 10 MG PO (21:05)
[2023-06-20] MEDS: Amitriptyline 25 MG Tablet 75 MG PO (21:05)
[2023-06-20 21:30] LABS: Bedside Glucose 308 mg/dL (74-106)
[2023-06-21] VITALS (14 sets, daily range): BP systolic 104–133; BP diastolic 52–64; PULSE 63–88; RESP 16–20; TEMP 36.4–36.8; O2SAT 87–99
[2023-06-21 06:58] LABS: Bedside Glucose 111 mg/dL (74-106)
[2023-06-21 07:27] LABS: Absolute Lymphocyte Count 1.35 X10^3/uL (0.83-4.51); Absolute Neutrophil Count 2.8 X10^3/uL (2.0-7.7); Basophil# 0.01 X10^3/uL; Basophil% 0.2 % (0-1); Eosinophil# 0.14 X10^3/uL; Eosinophils% 3.2 % (0-5); Hematocrit 24.7 % (37-47); Hemoglobin 8.2 g/dL (12.0-15.0); Lymphocyte # 1.35 X10^3/ul (0.83-4.51); Mean Corp Hgb Conc 33.2 g/dL (32-36); Mean Corpuscular Hgb 32.3 pg (27.0-32.0); Mean Corpuscular Volume 97.2 fL (81-99); Mean Platelet Vol. 9.9 fl (6.2-12.0); Monocyte# 0.07 X10^3/uL; Monocyte% 1.6 % (0-10); NRBC Flagged by Analyzer 0 % (0-5); Neutrophil # 2.75 X10^3/uL (2.7-7.7); Neutrophil % 63.1 % (47-70); Platelet Count 305 K/mm3 (150-450); RBC Distribution Width CV 14.9 % (11.6-14.6); RBC Distribution Width SD 52.7 fl (35.1-43.9); Red Blood Count 2.54 M/mm3 (4.2-5.4); White Blood Count 4.4 K/mm3 (4.4-11.0)
[2023-06-21] MEDS: Ipratropium/Albuterol Sulfate 3 ML AMPUL.NEB INHALATION ×4 (07:27→19:10)
--- NOTE | 2023-06-21 08:09 | PN.HOSP_ITS ---
Reason for Visit Reason for Visit: Diagnoses Anemia, unspecified (06/17/23) Hypokalemia (06/17/23) Acute respiratory failure with hypoxia (06/17/23) Acute and chronic respiratory failure, unspecified whether with hypoxia or hypercapnia (06/17/23) Subjective Subjective Feels well. Ambulated today and required 6 L with activity and 4 L with rest. Objective Data Objective Data Vital Signs: Vital Signs Temp Pulse Resp BP Pulse Ox O2 Del Method O2 Flow Rate 36.8 C 63 20 H 133/56 H 98 Nasal Cannula 4 06/21/23 03:27 06/21/23 03:27 06/21/23 03:27 06/21/23 03:27 06/21/23 03:27 06/21/23 03:27 06/21/23 03:27 Oxygen Flow Rate (L/min) 4 Oxygen Delivery Method Nasal Cannula Weight: 114.986 kg Body Mass Index (BMI) 47.9 Intake & Output: Intake and Output for Last 24 Hours 06/19/23 06/20/23 06/21/23 23:59 23:59 23:59 Intake Total 1340 / 1340 1020 / 1020 Output Total 1800 / 1800 1700 / 1700 50 / 50 Balance -460 / -460 -680 / -680 -50 / -50 Medical Nutrition Assessment Dietitian: Malnutrition Criteria Met Start: 06/17/23 12: 58 Freq: Status: Active Protocol: Document 06/19/23 14:26 AG (Rec: 06/19/23 14:26 AG Desktop) Nutrition Malnutrition Evidence of Malnutrition Exists No Malnutrition (severe): Acute Illness/Injury Clinical Problem Acute Disease or Injury Related Malnutrition Etiology related to recent COVID and inadequate energy intake Signs/Symptoms as evidenced by 4.5% unintended wt loss in <10 days and <50% po intake of est nutritional needs x > 5 days Status Resolved Problem Recommendation Dietitian Recommendations/Changes continue cardiac, 2000 calorie diet as tolerated Lab / Micro Data 06/21/23 06:30 06/21/23 06:30 Labs: Laboratory Results - last 24 hr 06/20/23 06:35: Diff Path Review Reviewed 06/20/23 11:33: POC Glucose 303 H 06/20/23 17:11: POC Glucose 197 H 06/20/23 21:01: POC Glucose 308 H 06/21/23 06:30: WBC 4.4, RBC 2.54 L, Hgb 8.2 L, Hct 24.7 L, MCV 97.2, MCH 32.3 H , MCHC 33.2, RDW Std Deviation 52.7 H, RDW Coeff of Erlinda 14.9 H, Plt Count 305, MPV 9.9, Immature Gran % (Auto) 0.900, Neut % (Auto) 63.1, Lymph % (Auto) 31.0, [place] % (Auto) 1.6, Eos % (Auto) 3.2, Baso % (Auto) 0.2, Absolute Neuts (auto) 2.8, Absolute Lymphs (auto) 1.35, Nucleated RBC % 0 06/21/23 06:37: POC Glucose 111 H Micro: Microbiology 06/18/23 09:40 Blood Culture (Wb) - Right Hand Blood Culture - Preliminary No growth in 48 hours. 06/18/23 09:20 Blood Culture (Wb) - Left Hand Blood Culture - Preliminary No growth in 48 hours. 06/18/23 16:20 Stool Stool Occult Blood (HERMES) - Final 06/17/23 12:10 Urine, Clean Catch Legionella Antigen - Final 06/17/23 12:10 Urine, Clean Catch Streptococcus pneumoniae Antigen (M - Final 06/17/23 04:16 Mucosa - Nose SARS-CoV-2, Influenza & RSV (PCR) - Final Physical Exam Const alert and no apparent distress HEENT head/scalp atraumatic and moist oral mucous membranes Resp normal respiratory effort and no retractions Resp Narrative: Bibasilar crackles Cardio regular rate, regular rhythm, S1 normal heart sound and S2 normal heart sound GI normal to inspection, nondistended, normoactive bowel sounds, soft to palpation, non-tender and non-distended Extremity General Extremity: edema bilateral lower extremity Details: mild Assessment & Plan Assessment/Plan (1) Acute on chronic respiratory failure: (2) Anemia: (3) Acute hypokalemia: PLAN: Plan Acute on chronic hypoxic respiratory failure * Suspect due to prior COVID-19 pneumonitis, asthma but also acute heart failure with preserved ejection fraction (EF of 65% on echo from 05/31 * Improving * Patient was ambulated on 4 L and was dropping 80s with oxygen. Chest x-ray shows chronic interstitial changes likely related with the patient's previous COVID-19 pneumonitis. Cannot determine if patient has any new infiltrates or worsening edema. * COVID-19, influenza and RSV are negative, strep and leg negative. * D-dimer 1.12. CTA chest shows overall worsening infiltrates. * Wean oxygen as tolerated. * PEP therapy. * Pulm input appreciated. * Infectious work up so far negative, DC abx and observe * Continue w IV furosemide Anemia * Has been trending down over the past month. Patient denies any medication. * Patient does take aspirin and clopidogrel. * Patient is on aspirin and clopidogrel for PCI that she had in April 2022. I will hold her clopidogrel for now. * FOB negative * iron low, but elevated ferritin; B12, folate and TSH WNL. * Continue Ferrous Sulfate. Hypokalemia * Resolved with replacement * Likely secondary to furosemide * Ordered placement in the emergency room Acute kidney injury * Creatinine has been slowly trending up over the past several weeks. Baseline creatinine is around 1. * Improved. Chronic conditions * CAD: Patient had PCI in April 2022. Holding clopidogrel given the anemia. Continue with aspirin. * Morbid obesity with BMI of 50.4. Complicates care and recovery. * Chronic pain: Buprenorphine * Depression: Continue with escitalopram. * Tardive dyskinesia: Continue with Ingrezza. * Diabetes mellitus type 2: Sliding scale insulin. 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 * JOSE: Continue with CPAP VTE prophylaxis with SCDs CODE STATUS: Addressed with the patient. Patient was unsure. Told patient we will leave her on full CODE STATUS at this point time but she may change her mind at any point and notify us if she does so. Disposition: To be determined. Continue with the IV furosemide and monitor. Hopefully patient can be discharged in next 1 to 2 days. Charges/Coding Visit Charges Inpatient E&M: 92896 Subs Hosp L2
[2023-06-21 08:33] LABS: Anion Gap 6 (5-15); BUN 18 mg/dL (7-18); BUN/Creat Ratio 15.7 RATIO (10-20); Calcium,Total 8.6 mg/dL (8.5-10.1); Chloride 98 mmol/L (98-107); Creatinine, Serum 1.15 mg/dL (0.55-1.02); EST Glomerular Filtration Rate 52 mL/min (>60); Est Glom Filt Rate - Afr Amer 63 mL/min (>60); Estimated Creatinine Clearance 63.63 ml/min; Glucose 102 mg/dL (74-106); Potassium 3.4 mmol/L (3.5-5.1); Sodium Level 140 mmol/L (136-145)
--- NOTE | 2023-06-21 08:52 | PCM.PN.INT ---
Assessment & Plan Assessment/Plan (1) Acute hypoxemic respiratory failure: PLAN: Plan RECOMMENDATIONS: 1. Resume home PAP therapy with naps and nightly, per home regimen. 2. Supplemental oxygen for saturations greater than 90%. 3. Continue scheduled bronchodilators. 4. Monitor clinically off antibiotics and steroids 5. Encourage incentive spirometer and out of bed as tolerated 6. Agree with resumption of diuretics. Potassium supplementation as necessary 7. Continue appropriate DVT prophylaxis. IMPRESSIONS: 1. Acute hypoxemic respiratory failure Patient with recurrent hospitalizations secondary to respiratory failure following COVID-19 pneumonia. Low clinical suspicion for infection given recent antibiotics, lack of fever and leukocytosis. Will monitor clinically off antibiotics. Patient may have an element of cor pulmonale secondary to noncompliance with CPAP therapy. Continue with diuretics. Monitor off antibiotics and steroids clinically. If patient develops fever off of antibiotics, could consider bronchoscopy, but patient would be at high risk given body habitus. 2. History of obstructive sleep apnea Continue nocturnal PAP therapy per home regimen. Stressed to the patient that this should be used with all sleep. Could consider evaluation for BiPAP as an outpatient given patient's elevated bicarbonate and CO2 retention at baseline. This does not need to be addressed prior to discharge, but the patient could follow-up in our office to evaluate 3. Morbid obesity/tobacco dependency/rheumatoid arthritis/chronic pain syndrome/coronary artery disease/hypertension Complicates care, management, recovery and prognosis. Continue supportive care as noted above. This note was generated with [employer] dictation software. It may contain incorrect words, spelling, and punctuation that were not noted in checking the note before signing. Subjective Subjective Patient did well overnight. Patient has been using her CPAP with sleep and was instructed on the appropriate way to bleed and supplemental oxygen. Patient's mentation appears to be approaching baseline Objective Data Objective Data Vital Signs: Vital Signs Temp Pulse Resp BP Pulse Ox O2 Del Method O2 Flow Rate 36.8 C 63 20 H 133/56 H 98 Nasal Cannula 4 06/21/23 03:27 06/21/23 03:27 06/21/23 03:27 06/21/23 03:27 06/21/23 03:27 06/21/23 03:27 06/21/23 03:27 Oxygen Flow Rate (L/min) 4 Oxygen Delivery Method Nasal Cannula Weight: 114.986 kg Body Mass Index (BMI) 47.9 Intake & Output: Intake and Output for Last 24 Hours 06/19/23 06/20/23 06/21/23 23:59 23:59 23:59 Intake Total 1340 / 1340 1020 / 1020 Output Total 1800 / 1800 1700 / 1700 50 / 50 Balance -460 / -460 -680 / -680 -50 / -50 Medical Nutrition Assessment Dietitian: Malnutrition Criteria Met Start: 06/17/23 12:58 Freq: Status: Active Protocol: Document 06/19/23 14:26 AG (Rec: 06/19/23 14:26 AG Desktop) Nutrition Malnutrition Evidence of Malnutrition Exists No Malnutrition (severe): Acute Illness/Injury Clinical Problem Acute Disease or Injury Related Malnutrition Etiology related to recent COVID and inadequate energy intake Signs/Symptoms as evidenced by 4.5% unintended wt loss in <10 days and <50% po intake of est nutritional needs x > 5 days Status Resolved Problem Recommendation Dietitian Recommendations/Changes continue cardiac, 2000 calorie diet as tolerated Lab / Micro Data Attestation: I reviewed the patient's lab results. 06/21/23 06:30 06/21/23 06:30 Labs: Laboratory Results - last 24 hr 06/20/23 06:35: Diff Path Review Reviewed 06/20/23 11:33: POC Glucose 303 H 06/20/23 17:11: POC Glucose 197 H 06/20/23 21:01: POC Glucose 308 H 06/21/23 06:30: WBC 4.4, RBC 2.54 L, Hgb 8.2 L, Hct 24.7 L, MCV 97.2, MCH 32.3 H, MCHC 33.2, RDW Std Deviation 52.7 H, RDW Coeff of Erlinda 14.9 H, Plt Count 305, MPV 9.9, Immature Gran % (Auto) 0.900, Neut % (Auto) 63.1, Lymph % (Auto) 31.0, [place] % (Auto) 1.6, Eos % (Auto) 3.2, Baso % (Auto) 0.2, Absolute Neuts (auto) 2.8, Absolute Lymphs (auto) 1.35, Nucleated RBC % 0, Sodium 140, Potassium 3.4 L, Chloride 98, Carbon Dioxide 36.0 H, Anion Gap 6, BUN 18, Creatinine 1.15 H, Estim Creat Clear Calc 63.63, Est GFR (MDRD) Af Amer 63, Est GFR (MDRD) Non-Af 52 L, BUN/Creatinine Ratio 15.7, Glucose 102, Calcium 8.6 06/21/23 06:37: POC Glucose 111 H Micro: Microbiology 06/18/23 09:40 Blood Culture (Wb) - Right Hand Blood Culture - Preliminary No growth in 48 hours. 06/18/23 09:20 Blood Culture (Wb) - Left Hand Blood Culture - Preliminary No growth in 48 hours. 06/18/23 16:20 Stool Stool Occult Blood (HERMES) - Final 06/17/23 12:10 Urine, Clean Catch Legionella Antigen - Final 06/17/23 12:10 Urine, Clean Catch Streptococcus pneumoniae Antigen (M - Final 06/17/23 04:16 Mucosa - Nose SARS-CoV-2, Influenza & RSV (PCR) - Final Physical Exam Const alert, oriented x3 and no apparent distress Constitutional Narrative: Appears to be at baseline. Morbidly obese. General Appearance: cooperative HEENT normocephalic, head/scalp atraumatic and moist oral mucous membranes Eyes PERRL and EOMs intact bilaterally Neck Neck Narrative: Unable to assess JVD secondary to body habitus Resp normal respiratory effort and no retractions Effort and Inspection: Negative for actively coughing Auscultation: diminished lung sounds; Negative for rhonchi or wheezes Cardio regular rate, regular rhythm, S1 normal heart sound, S2 normal heart sound, no murmurs, no rub and no gallops GI normal to inspection, nondistended, normoactive bowel sounds, soft to palpation, non-tender and non-distended Extremity General Extremity: edema bilateral lower extremity Skin no rashes or lesions noted Neuro CN's II-XII intact bilaterally and moves all extremities Psych affect normal Charges/Coding Visit Charges Inpatient E&M: 29757 Subs Hosp L2
[2023-06-21] MEDS: Pantoprazole Sodium 40 MG Tablet PO (09:49)
[2023-06-21] MEDS: Furosemide 40 MG/4 ML Vial IV ×2 (09:49→17:27)
[2023-06-21] MEDS: VALBENAZINE TOSYLATE 80 MG CAPSULE PO (09:49)
[2023-06-21] MEDS: Aspirin E.C. 81 MG Tablet PO (09:49)
[2023-06-21] MEDS: Escitalopram Oxalate 10 MG Tablet 30 MG PO (09:49)
[2023-06-21] MEDS: guaiFENesin 600 MG Tablet PO ×2 (09:49→21:39)
[2023-06-21] MEDS: Pregabalin 75 MG Capsule PO ×2 (09:54→21:39)
[2023-06-21] MEDS: Potassium Chloride Oral Tablet 20 MEQ 40 MEQ PO ×2 (09:54→17:27)
[2023-06-21 12:45] LABS: Bedside Glucose 134 mg/dL (74-106)
[2023-06-21] MEDS: Insulin Lispro 100 UNIT/ML INSULN.PEN SC ×2 (17:21→21:38)
[2023-06-21 18:06] LABS: Bedside Glucose 180 mg/dL (74-106)
[2023-06-21] MEDS: Amitriptyline 25 MG Tablet 75 MG PO (21:39)
[2023-06-21] MEDS: Atorvastatin Calcium 40 MG Tablet PO (21:39)
[2023-06-22] VITALS (10 sets, daily range): BP systolic 107–137; BP diastolic 54–70; PULSE 70–85; RESP 16–18; TEMP 35.9–36.5; O2SAT 88–100
[2023-06-22 00:56] LABS: Bedside Glucose 246 mg/dL (74-106)
[2023-06-22] MEDS: 0.9% Saline Lock 10 ML Syringe IV ×3 (06:40→17:31)
[2023-06-22] MEDS: Ipratropium/Albuterol Sulfate 3 ML AMPUL.NEB INHALATION ×4 (06:48→20:02)
[2023-06-22 07:02] LABS: Bedside Glucose 114 mg/dL (74-106)
--- NOTE | 2023-06-22 07:52 | PN.HOSP_ITS ---
Reason for Visit Reason for Visit: Diagnoses Anemia, unspecified (06/17/23) Hypokalemia (06/17/23) Acute respiratory failure with hypoxia (06/17/23) Acute and chronic respiratory failure, unspecified whether with hypoxia or hypercapnia (06/17/23) Subjective Subjective Breathing well. Was very tachypneic with ambulation though maintaining her pu lse ox. Objective Data Objective Data Vital Signs: Vital Signs Temp Pulse Resp BP Pulse Ox O2 Del Method O2 Flow Rate 36.4 C L 84 18 107/54 L 100 Nasal Cannula 4 06/22/23 03:11 06/22/23 03:11 06/22/23 03:11 06/22/23 03:11 06/22/23 03:11 06/22/23 03:11 06/22/23 03:11 Oxygen Flow Rate (L/min) [ 6 AMBULATING with Oxygen #2] Oxygen Flow Rate (L/min) [ 4 AMBULATING with Oxygen #1] Oxygen Flow Rate (L/min) [At 4 REST with Oxygen] Oxygen Flow Rate (L/min) 4 Oxygen Delivery Method Nasal Cannula Weight: 114.986 kg Body Mass Index (BMI) 47.9 Intake & Output: Intake and Output for Last 24 Hours 06/20/23 06/21/23 06/22/23 23:59 23:59 23:59 Intake Total 1020 / 1020 980 / 980 Output Total 1700 / 1700 650 / 650 Balance -680 / -680 330 / 330 Medical Nutrition Assessment Dietitian: Malnutrition Criteria Met Start: 06/17/23 12:58 Freq: Status: Active Protocol: Document 06/19/23 14:26 AG (Rec: 06/19/23 14:26 AG Desktop) Nutrition Malnutrition Evidence of Malnutrition Exists No Malnutrition (severe): Acute Illness/Injury Clinical Problem Acute Disease or Injury Related Malnutrition Etiology related to recent COVID and inadequate energy intake Signs/Symptoms as evidenced by 4.5% unintended wt loss in <10 days and <50% po intake of est nutritional needs x > 5 days Status Resolved Problem Recommendation Dietitian Recommendations/Changes continue cardiac, 2000 calorie diet as tolerated Lab / Micro Data 06/21/23 06:30 06/22/23 08:26 Labs: Laboratory Results - last 24 hr 06/21/23 06:30: Sodium 140, Potassium 3.4 L, Chloride 98, Carbon Dioxide 36.0 H, Anion Gap 6, BUN 18, Creatinine 1.15 H, Estim Creat Clear Calc 63.63, Est GFR (MDRD) Af Amer 63, Est GFR (MDRD) Non-Af 52 L, BUN/Creatinine Ratio 15.7, Glucose 102, Calcium 8.6 06/21/23 12:23: POC Glucose 134 H 06/21/23 17:19: POC Glucose 180 H 06/21/23 21:36: POC Glucose 246 H 06/22/23 06:42: POC Glucose 114 H Micro: Microbiology 06/18/23 09:40 Blood Culture (Wb) - Right Hand Blood Culture - Preliminary No growth in 48 hours. 06/18/23 09:20 Blood Culture (Wb) - Left Hand Blood Culture - Preliminary No growth in 48 hours. 06/18/23 16:20 Stool Stool Occult Blood (HERMES) - Final 06/17/23 12:10 Urine, Clean Catch Legionella Antigen - Final 06/17/23 12:10 Urine, Clean Catch Streptococcus pneumoniae Antigen (M - Final 06/17/23 04:16 Mucosa - Nose SARS-CoV-2, Influenza & RSV (PCR) - Final Physical Exam Const alert and no apparent distress Cardio regular rate, regular rhythm, S1 normal heart sound and S2 normal heart sound GI normal to inspection, nondistended, normoactive bowel sounds, soft to palpation, non-tender and non-distended Extremity General Extremity: edema bilateral lower extremity Details: mild Assessment & Plan Assessment/Plan (1) Acute on chronic respiratory failure: (2) Anemia: (3) Acute hypokalemia: PLAN: Plan Acute on chronic hypoxic respiratory failure * Suspect due to prior COVID-19 pneumonitis, asthma but also acute heart failure with preserved ejection fraction (EF of 65% on echo from 05/31 * Improving * Patient was ambulated on 4 L and was dropping 80s with oxygen. Chest x-ray shows chronic interstitial changes likely related with the patient's previous COVID-19 pneumonitis. Cannot determine if patient has any new infiltrates or worsening edema. * COVID-19, influenza and RSV are negative, strep and leg negative. * D-dimer 1.12. CTA chest shows overall worsening infiltrates. * Wean oxygen as tolerated. * PEP therapy. * Pulm input appreciated. * Infectious work up so far negative, DC abx and observe * Continue w IV furosemide Anemia * Has been trending down over the past month. Patient denies any medication. * Patient does take aspirin and clopidogrel. * Patient is on aspirin and clopidogrel for PCI that she had in April 2022. I will hold her clopidogrel for now. * FOB negative * iron low, but elevated ferritin; B12, folate and TSH WNL. * Continue Ferrous Sulfate. Hypokalemia * Resolved with replacement * Likely secondary to furosemide Acute kidney injury * Creatinine has been slowly trending up over the past several weeks. Baseline creatinine is around 1. * Improved. Chronic conditions * CAD: Patient had PCI in April 2022. Holding clopidogrel given the anemia. Continue with aspirin. * Morbid obesity with BMI of 50.4. Complicates care and recovery. * Chronic pain: Buprenorphine * Depression: Continue with escitalopram. * Tardive dyskinesia: Continue with Ingrezza. * Diabetes mellitus type 2: Sliding scale insulin. 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 * JOSE: Continue with CPAP VTE prophylaxis with SCDs CODE STATUS: Addressed with the patient. Patient was unsure. Told patient we will leave her on full CODE STATUS at this point time but she may change her mind at any point and notify us if she does so. Disposition: To be determined. Continue with the IV furosemide and monitor. Hopefully patient can be discharged in next 1 to 2 days. Charges/Coding Visit Charges Inpatient E&M: 68081 Subs Hosp L2
[2023-06-22 08:50] LABS: Anion Gap 3 (5-15); BUN 17 mg/dL (7-18); BUN/Creat Ratio 14.5 RATIO (10-20); Calcium,Total 8.4 mg/dL (8.5-10.1); Chloride 99 mmol/L (98-107); Creatinine, Serum 1.17 mg/dL (0.55-1.02); EST Glomerular Filtration Rate 51 mL/min (>60); Est Glom Filt Rate - Afr Amer 61 mL/min (>60); Estimated Creatinine Clearance 62.54 ml/min; Glucose 127 mg/dL (74-106); Potassium 3.7 mmol/L (3.5-5.1); Sodium Level 138 mmol/L (136-145)
[2023-06-22] MEDS: Pregabalin 75 MG Capsule PO ×2 (09:21→21:43)
[2023-06-22] MEDS: Ferrous Sulfate 325 MG Tablet PO (09:22)
[2023-06-22] MEDS: Aspirin E.C. 81 MG Tablet PO (09:22)
[2023-06-22] MEDS: VALBENAZINE TOSYLATE 80 MG CAPSULE PO (09:22)
[2023-06-22] MEDS: Pantoprazole Sodium 40 MG Tablet PO (09:23)
[2023-06-22] MEDS: Furosemide 40 MG/4 ML Vial IV ×2 (09:23→17:31)
[2023-06-22] MEDS: Escitalopram Oxalate 10 MG Tablet 30 MG PO (09:23)
[2023-06-22] MEDS: guaiFENesin 600 MG Tablet PO ×2 (09:24→21:43)
--- NOTE | 2023-06-22 11:24 | CPS ---
Pt states she will do pep and SMI on own later
[2023-06-22 11:49] LABS: Bedside Glucose 113 mg/dL (74-106)
[2023-06-22 16:55] LABS: Bedside Glucose 124 mg/dL (74-106)
[2023-06-22] MEDS: Amitriptyline 25 MG Tablet 75 MG PO (21:43)
[2023-06-22] MEDS: Atorvastatin Calcium 40 MG Tablet PO (21:43)
[2023-06-22] MEDS: Insulin Lispro 100 UNIT/ML INSULN.PEN SC (21:47)
[2023-06-22] MEDS: Zolpidem Tartrate 5 MG Tablet 10 MG PO (21:51)
[2023-06-22 23:24] LABS: Bedside Glucose 184 mg/dL (74-106)
[2023-06-23] VITALS (8 sets, daily range): BP systolic 112–114; BP diastolic 61–66; PULSE 71–84; RESP 18; TEMP 36.4–36.7; O2SAT 89–100
[2023-06-23] MEDS: Ipratropium/Albuterol Sulfate 3 ML AMPUL.NEB INHALATION ×3 (06:32→14:08)
[2023-06-23 06:43] LABS: Anion Gap 4 (5-15); BUN 15 mg/dL (7-18); Calcium,Total 8.8 mg/dL (8.5-10.1); Chloride 93 mmol/L (98-107); Creatinine, Serum 1.15 mg/dL (0.55-1.02); EST Glomerular Filtration Rate 52 mL/min (>60); Est Glom Filt Rate - Afr Amer 63 mL/min (>60); Estimated Creatinine Clearance 63.63 ml/min; Glucose 134 mg/dL (74-106); Potassium 3.7 mmol/L (3.5-5.1); Sodium Level 135 mmol/L (136-145)
--- NOTE | 2023-06-23 06:55 | PN.HOSP_ITS ---
Reason for Visit Reason for Visit: Diagnoses Anemia, unspecified (06/17/23) Hypokalemia (06/17/23) Acute respiratory failure with hypoxia (06/17/23) Acute and chronic respiratory failure, unspecified whether with hypoxia or hypercapnia (06/17/23) Subjective Subjective Feels okay. [place] okay getting up and ambulated did not feel short of breath, however it was noted that the patient was tachycardic with a pulse ox of 89%. Objective Data Objective Data Vital Signs: Vital Signs Temp Pulse Resp BP Pulse Ox O2 Del Method O2 Flow Rate 36.4 C L 82 18 114/66 93 Nasal Cannula 4 06/23/23 03:40 06/23/23 06:33 06/23/23 06:33 06/23/23 03:40 06/23/23 06:33 06/23/23 06:33 06/23/23 06:33 Oxygen Flow Rate (L/min) [ 6 AMBULATING with Oxygen #2] Oxygen Flow Rate (L/min) [ 4 AMBULATING with Oxygen #1] Oxygen Flow Rate (L/min) [At 4 REST with Oxygen] Oxygen Flow Rate (L/min) 4 Oxygen Delivery Method Nasal Cannula Weight: 114.986 kg Body Mass Index (BMI) 47.9 Intake & Output: Intake and Output for Last 24 Hours 06/21/23 06/22/23 06/23/23 23:59 23:59 23:59 Intake Total 980 / 980 1140 / 1140 120 / 120 Output Total 650 / 650 Balance 330 / 330 1140 / 1140 120 / 120 Medical Nutrition Assessment Dietitian: Malnutrition Criteria Met Start: 06/17/23 12:58 Freq: Status: Active Protocol: Document 06/19/23 14:26 AG (Rec: 06/19/23 14:26 AG Desktop) Nutrition Malnutrition Evidence of Malnutrition Exists No Malnutrition (severe): Acute Illness/Injury Clinical Problem Acute Disease or Injury Related Malnutrition Etiology related to recent COVID and inadequate energy intake Signs/Symptoms as evidenced by 4.5% unintended wt loss in <10 days and <50% po intake of est nutritional needs x > 5 days Status Resolved Problem Recommendation Dietitian Recommendations/Changes continue cardiac, 2000 calorie diet as tolerated Lab / Micro Data 06/21/23 06:30 06/23/23 05:07 Labs: Laboratory Results - last 24 hr 06/22/23 06:42: POC Glucose 114 H 06/22/23 08:26: Sodium 138, Potassium 3.7, Chloride 99, Carbon Dioxide 36.0 H, Anion Gap 3 L, BUN 17, Creatinine 1.17 H, Estim Creat Clear Calc 62.54, Est GFR (MDRD) Af Amer 61, Est GFR (MDRD) Non-Af 51 L, BUN/Creatinine Ratio 14.5, Glucose 127 H, Calcium 8.4 L 06/22/23 11:26: POC Glucose 113 H 06/22/23 16:38: POC Glucose 124 H 06/22/23 21:46: POC Glucose 184 H 06/23/23 05:07: Sodium 135 L, Potassium 3.7, Chloride 93 L, Carbon Dioxide 38.0 H, Anion Gap 4 L, BUN 15, Creatinine 1.15 H, Estim Creat Clear Calc 63.63, Est GFR (MDRD) Af Amer 63, Est GFR (MDRD) Non-Af 52 L, BUN/Creatinine Ratio 13.0, Glucose 134 H, Calcium 8.8 Micro: Microbiology 06/18/23 09:40 Blood Culture (Wb) - Right Hand Blood Culture - Preliminary No growth in 48 hours. 06/18/23 09:20 Blood Culture (Wb) - Left Hand Blood Culture - Preliminary No growth in 48 hours. 06/18/23 16:20 Stool Stool Occult Blood (HERMES) - Final 06/17/23 12:10 Urine, Clean Catch Legionella Antigen - Final 06/17/23 12:10 Urine, Clean Catch Streptococcus pneumoniae Antigen (M - Final 06/17/23 04:16 Mucosa - Nose SARS-CoV-2, Influenza & RSV (PCR) - Final Physical Exam Const alert and no apparent distress HEENT head/scalp atraumatic and moist oral mucous membranes Resp normal respiratory effort, no retractions, no use of accessory muscles and clear to auscultation bilaterally Cardio regular rate, regular rhythm, S1 normal heart sound and S2 normal heart sound GI normal to inspection, nondistended, normoactive bowel sounds and soft to palpation Neuro Sensorium / Orientation: awake and alert Assessment & Plan Assessment/Plan (1) Acute on chronic respiratory failure: (2) Anemia: (3) Acute hypokalemia: PLAN: Plan Acute on chronic hypoxic respiratory failure * Suspect due to prior COVID-19 pneumonitis, asthma but also acute heart failure with preserved ejection fraction (EF of 65% on echo from 05/31) * Testing * COVID-19, influenza and RSV are negative, strep and leg negative. * D-dimer 1.12. CTA chest shows overall worsening infiltrates. * Infectious work up so far negative, DC abx and observe * Wean oxygen as tolerated. * PEP therapy. * Pulm input appreciated. * Pt developing contraction alkalosis. Weight is down 114 kg. Patient's weight when she presented with 121 kg. This 114 kg appears to be around her baseline, she did have a weight of 99 kg in August of last year but that seems to be an outlier. Patient required 4 L of oxygen with rest and 6 L with activity. * Patient will follow-up with pulmonary as outpatient to see if she can get BiPAP. * Patient advised to check her weight daily to ensure that she is not slowly putting on weight. Anemia * Has been trending down over the past month. Patient denies any medication. * Patient does take aspirin and clopidogrel. * Patient is on aspirin and clopidogrel for PCI that she had in April 2022. I will hold her clopidogrel for now. * FOB negative * iron low, but elevated ferritin; B12, folate and TSH WNL. * Continue Ferrous Sulfate. Hypokalemia * Resolved with replacement * Likely secondary to furosemide Alkalosis * suspect contraction alkalosis from diuresis. Acute kidney injury * Creatinine has been slowly trending up over the past several weeks. Baseline creatinine is around 1. * Improved. Chronic conditions * CAD: Patient had PCI in April 2022. Holding clopidogrel given the anemia. Continue with aspirin. * Morbid obesity with BMI of 50.4. Complicates care and recovery. * Chronic pain: Buprenorphine * Depression: Continue with escitalopram. * Tardive dyskinesia: Continue with Ingrezza. * Diabetes mellitus type 2: Sliding scale insulin. 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 * JOSE: Continue with CPAP. Follow up with pulm to see about BiPAP as outpt. VTE prophylaxis with SCDs CODE STATUS: Addressed with the patient. Patient was unsure. Told patient we will leave her on full CODE STATUS at this point time but she may change her mind at any point and notify us if she does so. Disposition: To be determined. Continue with the IV furosemide and monitor.
[2023-06-23 07:03] LABS: Bedside Glucose 135 mg/dL (74-106)
[2023-06-23] MEDS: Aspirin E.C. 81 MG Tablet PO (08:21)
[2023-06-23] MEDS: Escitalopram Oxalate 10 MG Tablet 30 MG PO (08:21)
[2023-06-23] MEDS: Pregabalin 75 MG Capsule PO (08:21)
[2023-06-23] MEDS: VALBENAZINE TOSYLATE 80 MG CAPSULE PO (08:21)
[2023-06-23] MEDS: Furosemide 40 MG Tablet PO (08:21)
[2023-06-23] MEDS: Pantoprazole Sodium 40 MG Tablet PO (08:21)
[2023-06-23] MEDS: guaiFENesin 600 MG Tablet PO (08:21)
--- NOTE | 2023-06-23 09:56 | DS.PCM_ITS ---
Providers Date of Admission: 06/17/23 Primary Care Physician: Dr. Jericho Nieves MD Consultations 06/18/23 11:29 Consult: [facility] / Pulmonary Medicine Routine Consulting Provider: [facility]/Pulmonary Med Reason for Consult: worsening pneumonia EMERGENT Consult: No MD Notified: No Date Notified: 06/18/23 Time Notified: 11:30 Reason For Visit: ACUTE ON CHRONIC RESPIRATORY FAILURE Diagnosis Discharge Diagnosis (1) Acute on chronic respiratory failure: Status: Chronic Code(s): J96.20 - Acute and chronic respiratory failure, unspecified whether with hypoxia or hypercapnia (2) Anemia: Status: Acute Code(s): D64.9 - Anemia, unspecified (3) Acute hypokalemia: Status: Acute Code(s): E87.6 - Hypokalemia Plan Acute on chronic hypoxic respiratory failure * Suspect due to prior COVID-19 pneumonitis, asthma but also acute heart failure with preserved ejection fraction (EF of 65% on echo from 05/31) * Testing * COVID-19, influenza and RSV are negative, strep and leg negative. * D-dimer 1.12. CTA chest shows overall worsening infiltrates. * Infectious work up so far negative, DC abx and observe * Wean oxygen as tolerated. * PEP therapy. * Pulm input appreciated. * Pt developing contraction alkalosis. Weight is down 114 kg. Patient's weight when she presented with 121 kg. This 114 kg appears to be around her baseline, she did have a weight of 99 kg in August of last year but that seems to be an outlier. Patient required 4 L of oxygen with rest and 6 L with activity. * Patient will follow-up with pulmonary as outpatient to see if she can get BiPAP. * Patient advised to check her weight daily to ensure that she is not slowly putting on weight. Anemia * Has been trending down over the past month. Patient denies any medication. * Patient does take aspirin and clopidogrel. * Patient is on aspirin and clopidogrel for PCI that she had in April 2022. I will hold her clopidogrel for now. * FOB negative * iron low, but elevated ferritin; B12, folate and TSH WNL. * Continue Ferrous Sulfate. Hypokalemia * Resolved with replacement * Likely secondary to furosemide Alkalosis * suspect contraction alkalosis from diuresis. Acute kidney injury * Creatinine has been slowly trending up over the past several weeks. Baseline creatinine is around 1. * Improved. Chronic conditions * CAD: Patient had PCI in April 2022. Holding clopidogrel given the anemia. Continue with aspirin. * Morbid obesity with BMI of 50.4. Complicates care and recovery. * Chronic pain: Buprenorphine * Depression: Continue with escitalopram. * Tardive dyskinesia: Continue with Ingrezza. * Diabetes mellitus type 2: Sliding scale insulin. 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 * JOSE: Continue with CPAP. Follow up with pulm to see about BiPAP as outpt. VTE prophylaxis with SCDs CODE STATUS: Addressed with the patient. Patient was unsure. Told patient we will leave her on full CODE STATUS at this point time but she may change her mind at any point and notify us if she does so. Disposition: To be determined. Continue with the IV furosemide and monitor. Medications at Discharge Home Medications nitroglycerin 0.4 mg sublingual tablet 0.4 mg sublingual Q5M PRN CHEST PAIN #30 tabs 04/06/22 escitalopram oxalate 20 mg tablet 30 mg PO DAILY DEPRESSION 05/08/22 pregabalin 75 mg capsule 75 mg PO BID PAIN 05/08/22 aspirin 81 mg tablet,delayed release 81 mg PO DAILY@0800 HEART HEALTH #90 tabs 06/05/22 atorvastatin 40 mg tablet 40 mg PO QHS CHOLESTEROL #90 tabs 06/05/22 methotrexate sodium 2.5 mg tablet 15 mg PO QWEEK RHEUMATOID ARTHRITIS 06/05/22 zolpidem 10 mg tablet (Ambien) 10 mg PO QHS PRN SLEEP 08/29/22 albuterol sulfate 90 mcg/actuation aerosol inhaler 2 puff inhalation Q4H PRN SHORTNESS OF BREATH/WHEEZING 05/21/23 fluticasone furoate 200 mcg-vilanterol 25 mcg/dose inhalation powder (Breo Ellipta) 1 inh inhalation DAILY ASTHMA 05/21/23 lansoprazole 30 mg capsule,delayed release 30 mg PO DAILY ACID REFLUX 05/21/23 lidocaine 5 % topical ointment 1 applic topical 4X/DAY PRN PAIN 05/21/23 valbenazine 80 mg capsule (Ingrezza) 80 mg PO DAILY tardive dyskinesia 05/21/23 amitriptyline 75 mg tablet 75 mg PO QHS sleep 05/31/23 lamotrigine 200 mg tablet See Rx Instructions PO .COMPLEX 05/31/23 acetaminophen 325 mg tablet 1,000 mg (3.0769 x 325 mg) PO Q8H PRN PRN Fever, pain 1-10/10 #0 tabs 06/05/23 alprazolam 0.5 mg tablet 0.5 mg PO BID PRN ANXIETY 3 days #6 tabs 06/05/23 buprenorphine 20 mcg/hour weekly transdermal patch 1 patch transdermal TH SEVERE PAIN 1 week #1 ea 06/05/23 ferrous sulfate 325 mg (65 mg iron) tablet (FeroSul) 325 mg PO Q48@0800 #20 tabs 06/23/23 furosemide 40 mg tablet 40 mg PO BIDLX #60 tabs 06/23/23 potassium chloride 20 mEq tablet,extended release 20 meq PO DAILY #30 tabs 06/23/23 Hospital Course Operations None Procedures None Summary of Care Provided Minutes Spent on Discharge: 35 Hospital Course: Patient recently here with COVID-19 pneumonitis. Patient was discharged home and was doing well but few days prior started getting more short of breath. Chest x-ray and CAT scan showed just worsening diffuse infiltrates. Empirically, patient placed on antibiotics but did not have improvement and eventually that was dropped off as well as steroids which was eventually dropped off as well. Patient benefit most with diuretics and her weight dropped down roughly around 7 kg while she was here. Over the past few days, she has been developing contraction alkalosis and her pulse ox is been pretty steady in rega rds to 4 L with rest and 6 L with activity. Patient will be discharged with furosemide 40 mg twice daily and patient will be instructed to check her weight daily. She will need to follow-up pulmonary as well to see if she would be a candidate for BiPAP. Currently she has a CPAP. Medical Records Data Medical Nutrition Assessment Dietitian: Malnutrition Criteria Met Start: 06/17/23 12:58 Freq: Status: Active Protocol: Document 06/19/23 14:26 AG (Rec: 06/19/23 14:26 AG Desktop) Nutrition Malnutrition Evidence of Malnutrition Exists No Malnutrition (severe): Acute Illness/Injury Clinical Problem Acute Disease or Injury Related Malnutrition Etiology related to recent COVID and inadequate energy intake Signs/Symptoms as evidenced by 4.5% unintended wt loss in <10 days and <50% po intake of est nutritional needs x > 5 days Status Resolved Problem Recommendation Dietitian Recommendations/Changes continue cardiac, 2000 calorie diet as tolerated Weight / BMI Weight Weight: 114.986 kg Body Mass Index (BMI) 47.9 ABG / Lab / Microbiology Data 06/21/23 06:30 06/23/23 05:07 Laboratory: Laboratory Results - last 24 hr 06/22/23 11:26: POC Glucose 113 H 06/22/23 16:38: POC Glucose 124 H 06/22/23 21:46: POC Glucose 184 H 06/23/23 05:07: Sodium 135 L, Potassium 3.7, Chloride 93 L, Carbon Dioxide 38.0 H, Anion Gap 4 L, BUN 15, Creatinine 1.15 H, Estim Creat Clear Calc 63.63, Est GFR (MDRD) Af Amer 63, Est GFR (MDRD) Non-Af 52 L, BUN/Creatinine Ratio 13.0, Glucose 134 H, Calcium 8.8 06/23/23 06:34: POC Glucose 135 H Microbiology: Microbiology 06/18/23 09:40 Blood Culture (Wb) - Right Hand Blood Culture - Preliminary No growth in 48 hours. 06/18/23 09:20 Blood Culture (Wb) - Left Hand Blood Culture - Preliminary No growth in 48 hours. 06/18/23 16:20 Stool Stool Occult Blood (HERMES) - Final 06/17/23 12:10 Urine, Clean Catch Legionella Antigen - Final 06/17/23 12:10 Urine, Clean Catch Streptococcus pneumoniae Antigen (M - Final 06/17/23 04:16 Mucosa - Nose SARS-CoV-2, Influenza & RSV (PCR) - Final D/C Instructions Discharge Diet: Low fat / Low cholesterol, 8 Cup Fluid Restriction and 2000 mg Sodium Diet Meaningful Use Info Meaningful Use Diagnoses (Choose all that apply): CHF CHF JOLANTA/ARB ordered at discharge?: No Reason JOLANTA/ARB not ordered?: Hypotension Documented LVEF (%): 65 Discharge Plan Admission Admit Date/Time: 06/17/23 07:44 Primary Reason for Your Visit: CHF Attending Provider: Gen Palomares Primary Care Provider: Jericho Nieves Instructions Additional Instructions / Restrictions: You had fluid buildup on your lungs that made her breathing worse. This is on top of the inflammatory changes that you developed after having COVID-19. We got as much fluid off as we could with the IV furosemide. You will be on furose mide moving forward but it is in pill form as you were before but at higher dosing. Very important that you do monitor how much fluid you take as well as your salt intake. Also recommended that you check your weight daily and keep a record of that so you keep track to see if you are slowly putting on weight. I would like for you to follow-up with pulmonary at the pulmonary clinic to see if they may be considering you for BiPAP. Please wear your CPAP at night. Discharge Orders/Prescriptions Prescriptions: New ferrous sulfate [FeroSul] 325 mg (65 mg iron) Tablet 325 mg PO Q48@0800 Qty: 20 0RF furosemide 40 mg Tablet 40 mg PO BIDLX Qty: 60 0RF potassium chloride 20 mEq tablet extended release 20 meq PO DAILY Qty: 30 0RF Continued escitalopram oxalate 20 mg tablet 30 mg PO DAILY pregabalin 75 mg capsule 75 mg PO BID methotrexate sodium 2.5 mg tablet 15 mg PO QWEEK Patient Comments: PT STATES SHE DOESNT TAKE ON A CERTAIN DAY OF THE WEEK atorvastatin 40 mg tablet 40 mg PO QHS Qty: 90 3RF aspirin 81 mg tablet,delayed release (DR/EC) 81 mg PO DAILY@0800 Qty: 90 3RF zolpidem [Ambien] 10 mg tablet 10 mg PO QHS PRN (Reason: SLEEP ) nitroglycerin 0.4 mg Tablet, Sublingual 0.4 mg sublingual Q5M PRN (Reason: CHEST PAIN ) Qty: 30 0RF albuterol sulfate 90 mcg/actuation HFA aerosol inhaler 2 puff INHALATION Q4H PRN (Reason: SHORTNESS OF BREATH/WHEEZING ) Ingrezza 80 mg capsule 80 mg PO DAILY Patient Comments: PT STATES SHE TAKES 40MG EVERY SATURDAY lidocaine 5 % ointment 1 applic topical 4X/DAY PRN (Reason: PAIN ) Rx Instructions: APPLY TO AFFECTED AREAS TOPICAL ONE TO FOUR TIMES A DAY NEEDED lansoprazole 30 mg capsule,delayed release(DR/EC) 30 mg PO DAILY fluticasone furoate-vilanterol [Breo Ellipta] 200-25 mcg/dose blister with device 1 inh INHALATION DAILY amitriptyline 75 mg tablet 75 mg PO QHS Patient Comments: Take 1 tablet by mouth daily at bedtime. lamotrigine 200 mg tablet See Rx Instructions PO .COMPLEX Patient Comments: Take 1/2 tablets by mouth every morning AND 1 tablet every evening. Rx Instructions: orally Take 1/2 tablets by mouth every morning AND 1 tablet every evening.; Take 1/2 tablets by mouth every morning AND 1 tablet every evening.; acetaminophen 325 mg Tablet 1,000 mg PO Q8H PRN PRN (Reason: Fever, pain 1-02/12) Qty: 0 0RF alprazolam 0.5 mg tablet 0.5 mg PO BID PRN (Reason: ANXIETY ) 3 Days Qty: 6 0RF buprenorphine 20 mcg/hour patch weekly 1 patch transdermal TH 7 Days Qty: 1 0RF Discontinued clopidogrel 75 mg tablet 75 mg PO DAILY furosemide 20 mg tablet 20 mg PO DAILY Qty: 30 0RF Referrals / Follow Up: Jericho Nieves MD [Primary Care Provider] - Within 2 Weeks [facility] [Provider Group] - Within 1 Month Disposition Disposition (needs filled in before D/C Order can be placed): Home, Self Care Charges/Coding Visit Charges Inpatient E&M: 62327 Disch Hosp >30min
[2023-06-23 11:46] LABS: Bedside Glucose 145 mg/dL (74-106)
== END 2023-06-23 14:53 | disposition home or self-care (01) | DRG 291 ==
LOC: ED 07:42 → ICU 08:02 → PCU 06-21 10:14
PROVIDERS: Emergency Provider Emergency Medicine; PCP Internal Medicine
DX: I11.0 Hypertensive heart disease with heart failure (principal); J96.21 Acute and chronic respiratory failure with hypoxia; E43 Unspecified severe protein-calorie malnutrition; I50.31 Acute diastolic (congestive) heart failure; E87.3 Alkalosis; J45.901 Unspecified asthma with (acute) exacerbation; E87.29 Other acidosis; Z68.43 Body mass index [BMI] 50.0-59.9, adult; N17.9 Acute kidney failure, unspecified; E11.65 Type 2 diabetes mellitus with hyperglycemia; F31.9 Bipolar disorder, unspecified; I42.9 Cardiomyopathy, unspecified; E66.01 Morbid (severe) obesity due to excess calories; M06.9 Rheumatoid arthritis, unspecified; D64.9 Anemia, unspecified; I25.10 Atherosclerotic heart disease of native coronary artery without angina pectoris; E78.5 Hyperlipidemia, unspecified; G24.01 Drug induced subacute dyskinesia; E87.6 Hypokalemia; Z87.891 Personal history of nicotine dependence; Z95.5 Presence of coronary angioplasty implant and graft; Z79.51 Long term (current) use of inhaled steroids; Z79.02 Long term (current) use of antithrombotics/antiplatelets; Z79.82 Long term (current) use of aspirin; Z82.3 Family history of stroke; U09.9 Post COVID-19 condition, unspecified; G89.4 Chronic pain syndrome; Z99.89 Dependence on other enabling machines and devices
CPT/HCPCS: 36415; 71045; 71275; 80048; 80053; 82274; 82607; 82728; 82746; 82962; 83540; 83550; 83735; 83880; 84443; 85025; 85379; 87040; 87449; 87631; 93005; 94640; 94660; 94668; 94762; 97110; 97162; 97166; 97530; 97535; 99252; 99283; 99406; J7030; J7040; Q9967; A4216; G0463; J1940; J8610

== ENCOUNTER 2023-07-26 08:15 | Emergency (ER) | payer MEDICARE, MEDICAID, SELFPAY ==
[2022-06-08 13:59] VITALS: BMI 47.9
[2023-07-26] VITALS (9 sets, daily range): BP systolic 0–151; BP diastolic 0–133; PULSE 0–90; RESP 0–32; TEMP -17.7–36.6; O2SAT 0–100; BMI 46.4
--- NOTE | 2023-07-26 08:28 | EKG12_ITS ---
Test Reason : SOB Blood Pressure : / mmHG Vent. Rate : 090 BPM Atrial Rate : 090 BPM P-R Int : 182 ms QRS Dur : 102 ms QT Int : 382 ms P-R-T Axes : 047 044 030 degrees QTc Int : 467 ms Normal sinus rhythm Inferior infarct , age undetermined Abnormal ECG Confirmed by Pedro Hernández ([id number]), loan expeditor PHYLICIA COOLEY ([id number]) on 07/30/2023 8:47:56 AM Referred By: KRISTOPHER Confirmed By:Pedro Hernández
[2023-07-26] MEDS: 0.9% Normal Saline (1000mL) 1,000 ML 999 ML IV ×3 (08:33→09:36)
--- NOTE | 2023-07-26 08:33 | EDS_ITS ---
HPI History of Present Illness Chief Complaint: Shortness of Breath Narrative Narrative: 58-year-old female presenting with dyspnea and altered mental status. Patient is down in the hallway unknown downtime. She unable to give much history. Patient with recent admission for respiratory failure. EMS states that she was found on the ground after a fall. She denies any pain but is unable to speak to the rest address. She does indicate that she would want to be intubated and she is currently on CPAP and states she is not getting any relief. [facility] Medical History Anemia Anxiety and depression Atherosclerotic heart disease of [place] coronary artery without angina pectoris Back pain Bipolar disorder Bipolar disorder Cardiac arrest with ventricular fibrillation Cardiomyopathy Coronary artery disease CPAP (continuous positive airway pressure) dependence Degeneration of intervertebral disc of lumbosacral region Diabetes mellitus, type II Dyslipidemia Dyspnea Essential hypertension GERD (gastroesophageal reflux disease) Hiatal hernia History of myocardial infarction HLD (hyperlipidemia) Hypertension Lumbar facet arthropathy Lumbosacral spondylosis Migraines Nicotine dependence Obesity Obesity (BMI 30-39.9) JOSE (obstructive sleep apnea) Osteoarthritis Post-menopausal Presence of stent in coronary artery (~05/17/22) Psoriasis Seizures Sleep apnea Smoker Smoking addiction ST elevation (STEMI) myocardial infarction Syncope Home Medications nitroglycerin 0.4 mg sublingual tablet 0.4 mg sublingual Q5M PRN CHEST PAIN #30 tabs 04/06/22 [Rx Last Taken Unknown] escitalopram oxalate 20 mg tablet 30 mg PO DAILY DEPRESSION 05/08/22 [History Last Taken 05/17/22] pregabalin 75 mg capsule 75 mg PO BID PAIN 05/08/22 [History Last Taken 05/17/22] aspirin 81 mg tablet,delayed release 81 mg PO DAILY@0800 HEART HEALTH #90 tabs 06/05/22 [Rx Last Taken 05/20/23] atorvastatin 40 mg tablet 40 mg PO QHS CHOLESTEROL #90 tabs 06/05/22 [Rx Last Taken 05/20/23] methotrexate sodium 2.5 mg tablet 15 mg PO QWEEK RHEUMATOID ARTHRITIS 06/05/22 [History Last Taken Unknown] zolpidem 10 mg tablet (Ambien) 10 mg PO QHS PRN SLEEP 08/29/22 [History Last Taken 05/20/23] albuterol sulfate 90 mcg/actuation aerosol inhaler 2 puff inhalation Q4H PRN SHORTNESS OF BREATH/WHEEZING 05/21/23 [History Last Taken 05/21/23] fluticasone furoate 200 mcg-vilanterol 25 mcg/dose inhalation powder (Breo Ellipta) 1 inh inhalation DAILY ASTHMA 05/21/23 [History Last Taken Unknown] lansoprazole 30 mg capsule,delayed release 30 mg PO DAILY ACID REFLUX 05/21/23 [History Last Taken 05/20/23] lidocaine 5 % topical ointment 1 applic topical 4X/DAY PRN PAIN 05/21/23 [History Last Taken Unknown] valbenazine 80 mg capsule (Ingrezza) 80 mg PO DAILY tardive dyskinesia 05/21/23 [History Last Taken 05/20/23] amitriptyline 75 mg tablet 75 mg PO QHS sleep 05/31/23 [History Last Taken Unknown] lamotrigine 200 mg tablet See Rx Instructions PO .COMPLEX seizures 05/31/23 [History Last Taken Unknown] acetaminophen 325 mg tablet 1,000 mg (3.0769 x 325 mg) PO Q8H PRN PRN Fever, pain 1-02/12 #0 tabs 06/05/23 [Rx Last Taken Unknown] alprazolam 0.5 mg tablet 0.5 mg PO BID PRN ANXIETY 3 days #6 tabs 06/05/23 [Rx Last Taken Unknown] buprenorphine 20 mcg/hour weekly transdermal patch 1 patch transdermal TH SEVERE PAIN 1 week #1 ea 06/05/23 [Rx Last Taken Unknown] ferrous sulfate 325 mg (65 mg iron) tablet (FeroSul) 325 mg PO Q48@0800 #20 tabs 06/23/23 [Rx Last Taken Unknown] furosemide 40 mg tablet 40 mg PO BIDLX #60 tabs 06/23/23 [Rx Last Taken Unknown] potassium chloride 20 mEq tablet,extended release 20 meq PO DAILY #30 tabs 06/23/23 [Rx Last Taken Unknown] Allergy/AdvReac Type Severity Reaction Status Date / Time tramadol HCl [From Ultram] Allergy Rash Verified 07/26/23 08:17 cariprazine [From Vraylar] AdvReac Other Verified 07/26/23 08:17 codeine AdvReac Vomiting Verified 07/26/23 08:17 hydromorphone [From Dilaudid] AdvReac Nausea/Vom/ Verified 07/26/23 08:17 Diarrhea oxycodone HCl [From Percocet] AdvReac Vomiting Verified 07/26/23 08:17 quetiapine [From Seroquel] AdvReac Other Verified 07/26/23 08:17 Family History Father CHF (congestive heart failure) Cardiomyopathy Heart disease Hypertension Cardiac arrest with ventricular fibrillation Mother CVA (cerebral vascular accident) Diabetes Surgical History History of back surgery History of carpal tunnel surgery Hx of knee surgery Hx of neck surgery Presence of coronary angioplasty implant and graft (~05/17/22) Social History household members: significant other Smoking Status: Former smoker alcohol intake: never substance use type: does not use caffeine: Yes Type: carbonated beverages Number of servings: 1 ROS ROS ED Respiratory/Chest Respiratory/Chest: Reports dyspnea Endocrine Endocrinology: Reports polyuria EXAM Physical Exam Const Vital Signs: 07/26/23 08:17 07/26/23 08:20 07/26/23 08:23 Temperature 97.8 F Temperature Source Oral Pulse Rate 88 Respiratory Rate 32 H Respiratory Effort Short of Breath Short of Breath Respiratory Depth Shallow Shallow Respiratory Pattern Tachypnea Tachypnea Blood Pressure 151/133 H Blood Pressure Mean 139 Pulse Ox 86 94 Oxygen Delivery Method Bi-pap CPAP Mechanical Ventilator Fraction of Inspired Oxygen (FIO2) 07/26/23 08:30 07/26/23 08:26 07/26/23 08:20 Temperature 97.6 F L Temperature Source Temporal Pulse Rate 89 90 Respiratory Rate 12 16 Respiratory Effort Respiratory Depth Respiratory Pattern Normal Blood Pressure 81/62 L Blood Pressure Mean 68 Pulse Ox 96 93 Oxygen Delivery Method Mechanical Ventilator Mechanical Ventilator Fraction of Inspired Oxygen (FIO2) 50 07/26/23 09:08 07/26/23 09:21 07/26/23 09:32 Temperature 96.1 F L 95.5 F L 95.2 F L Temperature Source Core Core Core Pulse Rate 86 82 73 Respiratory Rate 12 12 12 Respiratory Effort Respiratory Depth Respiratory Pattern Blood Pressure 43/18 L 41/23 L 70/52 L Blood Pressure Mean 26 29 58 Pulse Ox 100 100 99 Oxygen Delivery Method Mechanical Ventilator Mechanical Ventilator Mechanical Ventilator Fraction of Inspired Oxygen (FIO2) 07/26/23 09:19 Temperature Temperature Source Pulse Rate Respiratory Rate Respiratory Effort Respiratory Depth Respiratory Pattern Blood Pressure Blood Pressure Mean Pulse Ox 100 Oxygen Delivery Method Fraction of Inspired Oxygen (FIO2) 30 MDM MDM MDM Narrative Medical decision making narrative: Patient presenting after being found on the ground by EMS. Her significant other is here and states that he helped her into the hallway and she was not down for significant amount of time. Patient was in significant distress respiratory bansal and she was able to nod her head to me if she needed intubated she would want that. She was intubated using RSI with rocuronium and a etomidate. Intubation was on first pass and there was good plugged pains on the capnography as well as good bilateral breath sounds and chest x-ray on my interpretation stable placement of the ET tube and bilateral infiltrates. Radiology interprets this and agrees. Patient had blood pressure of 151/133 initially which dropped 81/62. Septic orders were obtained and patient was pancultured. 30 cc/kg were given for IV fluids. 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 She is noted to have mottling on the dependent areas of her body. 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 I immediately spoke with Dr. Collins and after discussion with both she and her daughter Kailyn we did not think the patient would be a great surgical candidate as she was unstable and with this point we made her DNR CCA with no further aggressive treatment other than IV fluids and antibiotics. Patient's sister states she will come in. I spoke with her significant other who is outside the room who had spoken with her brother and then her brother called. Mark Moran her brother called and we discussed the patient's case at length and I told him that she was not doing well and would probably not make it through the next hour given that she was very ill with a very poor prognosis with the Anatoly's gangr eliecer and I did relate to him that I had already spoken to his Sister Kailyn who did not want any aggressive measures. At this point he stated he would come in. Patient continued to have low blood pressures even though the fluids were going and. She was put on a fentanyl drip to keep dropping her pressures. I was called to the room and her brothers were at the bedside and the patient had gone into asystole. There were no palpable pulses. Patient was on the ventilator which was stopped and there was no spontaneous respirations. Bedside ultrasound was used and there were no spontaneous cardiac rhythms or heartbeats. Time of is 951. Family counseled they can have their own assembler wire mesh gate come and they stated they already called. They were can have the rest of her family come in to say goodbye and give condolences. Impression: 1. Hypoxic respiratory failure 2. Septic shock 3. Anatoly's gangrene 4. Hypotension 5. Hyperkalemia 6. Acute renal failure Lab Data Labs: Laboratory Results - last 24 hr 07/26/23 07/26/23 08:29 08:48 WBC 0.2 L* RBC 2.46 L Hgb 7.9 L Hct 23.4 L MCV 95.1 MCH 32.1 H MCHC 33.8 RDW Std Deviation 50.6 H RDW Coeff of Erlinda 14.6 Plt Count 69 L MPV 10.7 Immature Gran % (Auto) 0.000 Neut % (Auto) 33.4 L Lymph % (Auto) 47.6 H [place] % (Auto) 9.5 Eos % (Auto) 9.5 H Baso % (Auto) 0.0 Absolute Neuts (auto) 0.1 L Absolute Lymphs (auto) 0.10 L Nucleated RBC % 0 Differential Comment COMMENT Diff Path Review May foll Platelet Estimate MOD DEC PT 19.4 H INR 1.7 APTT 38.3 H Sodium 128 L Potassium 5.9 H Chloride 95 L Carbon Dioxide 10.0 L Anion Gap 23 H BUN 119 H* Creatinine 6.46 H Estim Creat Clear Calc 11.12 Est GFR (MDRD) Af Amer 9 L Est GFR (MDRD) Non-Af 7 L BUN/Creatinine Ratio 18.4 Glucose 63 L Lactic Acid 4.1 H* Calcium 7.1 L Total Bilirubin 0.80 AST 45 H ALT 28 Alkaline Phosphatase 85 Total Creatine Kinase 513 H Troponin I High Sens 28 Total Protein 6.1 L Albumin 1.9 L Globulin 4.2 Albumin/Globulin Ratio 0.5 L Urine Color Yellow Urine Clarity Sl. Cloudy Urine pH 5.0 Ur Specific Curtis 1.015 Urine Protein 30 H Urine Glucose (UA) Normal Urine Ketones 5 H Urine Occult Blood 10 H Urine Nitrite Negative Urine Bilirubin Negative Urine Urobilinogen Normal Ur Leukocyte Esterase 25 H Urine RBC 0-5 SEEN Urine WBC 0-5 SEEN Ur Squamous Epith Cells 0-5 SEEN Urine Bacteria 1+ Urine Mucus 0 SEEN Radiography Diagnostic Testing: Clinical Impression(s) from Imaging Studies Chest X-Ray 07/26/23 08:55 IMPRESSION: Bibasilar pulmonary infiltrates worse on the left side. The tip of the endotracheal tube is at 2.7 cm proximal to the soniya. Electronically Signed: Duy Hanna MD at 9:14 EDT , Critical Care Time Critical Care Time: Yes Critical care time (excluding procedures): 30-74 minutes (35), Discussing w/Patient &/or Family/Industrial Illuminating Engineer, Discussing w/Consultants and Performing Direct Patient Care at Bedside Discharge Plan Triage Chief Complaint: Shortness of Breath ED Provider: Tera Kearns Dx/Rx/DC Orders Prescriptions: No Action escitalopram oxalate 20 mg tablet 30 mg PO DAILY pregabalin 75 mg capsule 75 mg PO BID methotrexate sodium 2.5 mg tablet 15 mg PO QWEEK Patient Comments: PT STATES SHE DOESNT TAKE ON A CERTAIN DAY OF THE WEEK atorvastatin 40 mg tablet 40 mg PO QHS Qty: 90 3RF aspirin 81 mg tablet,delayed release (DR/EC) 81 mg PO DAILY@0800 Qty: 90 3RF zolpidem [Ambien] 10 mg tablet 10 mg PO QHS PRN (Reason: SLEEP ) nitroglycerin 0.4 mg Tablet, Sublingual 0.4 mg sublingual Q5M PRN (Reason: CHEST PAIN ) Qty: 30 0RF albuterol sulfate 90 mcg/actuation HFA aerosol inhaler 2 puff INHALATION Q4H PRN (Reason: SHORTNESS OF BREATH/WHEEZING ) Ingrezza 80 mg capsule 80 mg PO DAILY Patient Comments: PT STATES SHE TAKES 40MG EVERY SATURDAY lidocaine 5 % ointment 1 applic topical 4X/DAY PRN (Reason: PAIN ) Rx Instructions: APPLY TO AFFECTED AREAS TOPICAL ONE TO FOUR TIMES A DAY NEEDED lansoprazole 30 mg capsule,delayed release(DR/EC) 30 mg PO DAILY fluticasone furoate-vilanterol [Breo Ellipta] 200-25 mcg/dose blister with device 1 inh INHALATION DAILY amitriptyline 75 mg tablet 75 mg PO QHS Patient Comments: Take 1 tablet by mouth daily at bedtime. lamotrigine 200 mg tablet See Rx Instructions PO .COMPLEX Patient Comments: Take 1/2 tablets by mouth every morning AND 1 tablet every evening. Rx Instructions: orally Take 1/2 tablets by mouth every morning AND 1 tablet every evening.; Take 1/2 tablets by mouth every morning AND 1 tablet every evening.; acetaminophen 325 mg Tablet 1,000 mg PO Q8H PRN PRN (Reason: Fever, pain 1-02/12) Qty: 0 0RF alprazolam 0.5 mg tablet 0.5 mg PO BID PRN (Reason: ANXIETY ) 3 Days Qty: 6 0RF buprenorphine 20 mcg/hour patch weekly 1 patch transdermal TH 7 Days Qty: 1 0RF ferrous sulfate [FeroSul] 325 mg (65 mg iron) Tablet 325 mg PO Q48@0800 Qty: 20 0RF furosemide 40 mg Tablet 40 mg PO BIDLX Qty: 60 0RF potassium chloride 20 mEq tablet extended release 20 meq PO DAILY Qty: 30 0RF Primary Care Provider: Jericho Nieves Referrals: Jericho Nieves MD [Primary Care Provider] -
[2023-07-26 08:52] LABS: Absolute Neutrophil Count 0.1 X10^3/uL (2.0-7.7); Eosinophil# 0.02 X10^3/uL; Eosinophils% 9.5 % (0-5); Hematocrit 23.4 % (37-47); Hemoglobin 7.9 g/dL (12.0-15.0); Lymphocyte % 47.6 % (19-41); Mean Corp Hgb Conc 33.8 g/dL (32-36); Mean Corpuscular Hgb 32.1 pg (27.0-32.0); Mean Corpuscular Volume 95.1 fL (81-99); Mean Platelet Vol. 10.7 fl (6.2-12.0); Monocyte# 0.02 X10^3/uL; Monocyte% 9.5 % (0-10); NRBC Flagged by Analyzer 0 % (0-5); Neutrophil # 0.07 X10^3/uL (2.7-7.7); Neutrophil % 33.4 % (47-70); POSITIVE COUNT YES; POSITIVE DIFFERENTIAL YES; POSITIVE MORPHOLOGY YES; Platelet Count 69 K/mm3 (150-450); RBC Distribution Width CV 14.6 % (11.6-14.6); RBC Distribution Width SD 50.6 fl (35.1-43.9); Red Blood Count 2.46 M/mm3 (4.2-5.4)
[2023-07-26] MEDS: Piperacil/Tazobactam 3.375 GM in 0.9% Normal Saline (50mL MB+) 50 ML IV (08:52)
--- NOTE | 2023-07-26 08:55 | RAD_ITS ---
STUDY: X-RAY CHEST REASON FOR EXAM: Female, 58 years old. Hypoxia TECHNIQUE: Single AP portable view of the chest. COMPARISON: Comparison is made with prior study dated June 17, 2023. FINDINGS: EKG electrodes are seen. An endotracheal tube is seen with the tip at 2.7 cm proximal to soniya. An orogastric tube is seen with the tip in the body of the stomach. Bibasilar pulmonary infiltrates worse on the left lung base. There is no demonstrated pleural abnormality. Mild cardiomegaly. Normal mediastinum and anjana. Normal visualized pulmonary arteries. Normal visualized aortic arch and descending thoracic aorta. There are diffuse degenerative changes of the visualized thoracic spine. Normal visualized ribs, clavicles, and shoulders. There is no demonstrated abnormality of the visualized soft tissue structures of the upper abdomen. RAD/Chest 1 View (Portable) IMPRESSION: Bibasilar pulmonary infiltrates worse on the left side. The tip of the endotracheal tube is at 2.7 cm proximal to the soniya. Electronically Signed: Duy Hanna MD at 9:14 EDT ,
[2023-07-26] MEDS: Vancomycin HCl 2,000 MG in 0.9% Normal Saline (500mL Bag) 500 ML 250 MG IV (08:57)
[2023-07-26 08:58] LABS: Differential Indicated SCAN CRITERIA MET; White Blood Count 0.2 K/mm3 (4.4-11.0)
[2023-07-26] MEDS: Clindamycin 900 MG/50 ML BAG 75 MG IV (09:02)
[2023-07-26 09:06] LABS: Mucous, Urine 0 SEEN /hpf (<or=2+)
--- NOTE | 2023-07-26 09:09 | ED.RN ---
DR. SUMMERS AND DR. FORTE SPEAKS WITH PT. SISTER ON PHONE, AND UPDATES PT. LONG TIME BOYFRIEND. SISTER WANTS PT A DNRCC/
[2023-07-26 09:11] LABS: Lactic Acid 4.1 mmol/L (0.4-1.9)
--- NOTE | 2023-07-26 09:13 | CON.PCM.SX_ITS ---
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 Patient is also septic with a white blood count of 0.2 and systolic blood pressure in the 50s. Patient is not even stable enough to go for CAT scan. Patient is not stable enough to go to the OR. Discussed with patient's sister that I would not recommend OR because likely she would just code on the table and not be able to have any benefit from surgery. ER doctor did also talk with patient's brother. Both were agreeable with DNR CCA. They were informed that she does have very poor prognosis and recommend coming in to see her now. Gisel Collins M.D. Pager: [phone] [facility] [address] [place] [address], [facility], [address] [place] [id number] Office: [phone] HPI Consult Data Date of Consult: 07/26/23 HPI Narrative Reason for Consultation: Anatoly's, septic, hypotension HPI Narrative: JUAN EAGLE, is a 58 F who presents to the ER and respiratory failure did require intubation quickly after arrival. On exam was noticed that patient had necrotic tissue all around her groin and her perianal region. Patient's blood pressure systolically was in the 50s. Antibiotics of Zosyn Vanco and clinda IV were started. Patient was mottled. [facility] Medical History Anemia Anxiety and depression Atherosclerotic heart disease of [place] coronary artery without angina pectoris Back pain Bipolar disorder Bipolar disorder Cardiac arrest with ventricular fibrillation Cardiomyopathy Coronary artery disease CPAP (continuous positive airway pressure) dependence Degeneration of intervertebral disc of lumbosacral region Diabetes mellitus, type II Dyslipidemia Dyspnea Essential hypertension GERD (gastroesophageal reflux disease) Hiatal hernia History of myocardial infarction HLD (hyperlipidemia) Hypertension Lumbar facet arthropathy Lumbosacral spondylosis Migraines Nicotine dependence Obesity Obesity (BMI 30-39.9) JOSE (obstructive sleep apnea) Osteoarthritis Post-menopausal Presence of stent in coronary artery (~05/17/22) Psoriasis Seizures Sleep apnea Smoker Smoking addiction ST elevation (STEMI) myocardial infarction Syncope Home Medications nitroglycerin 0.4 mg sublingual tablet 0.4 mg sublingual Q5M PRN CHEST PAIN #30 tabs 04/06/22 [Rx Last Taken Unknown] escitalopram oxalate 20 mg tablet 30 mg PO DAILY DEPRESSION 05/08/22 [History Last Taken 05/17/22] pregabalin 75 mg capsule 75 mg PO BID PAIN 05/08/22 [History Last Taken 05/17/22] aspirin 81 mg tablet,delayed release 81 mg PO DAILY@0800 HEART HEALTH #90 tabs 06/05/22 [Rx Last Taken 05/20/23] atorvastatin 40 mg tablet 40 mg PO QHS CHOLESTEROL #90 tabs 06/05/22 [Rx Last Taken 05/20/23] methotrexate sodium 2.5 mg tablet 15 mg PO QWEEK RHEUMATOID ARTHRITIS 06/05/22 [History Last Taken Unknown] zolpidem 10 mg tablet (Ambien) 10 mg PO QHS PRN SLEEP 08/29/22 [History Last Taken 05/20/23] albuterol sulfate 90 mcg/actuation aerosol inhaler 2 puff inhalation Q4H PRN SHORTNESS OF BREATH/WHEEZING 05/21/23 [History Last Taken 05/21/23] fluticasone furoate 200 mcg-vilanterol 25 mcg/dose inhalation powder (Breo Ellipta) 1 inh inhalation DAILY ASTHMA 05/21/23 [History Last Taken Unknown] lansoprazole 30 mg capsule,delayed release 30 mg PO DAILY ACID REFLUX 05/21/23 [History Last Taken 05/20/23] lidocaine 5 % topical ointment 1 applic topical 4X/DAY PRN PAIN 05/21/23 [History Last Taken Unknown] valbenazine 80 mg capsule (Ingrezza) 80 mg PO DAILY tardive dyskinesia 05/21/23 [History Last Taken 05/20/23] amitriptyline 75 mg tablet 75 mg PO QHS sleep 05/31/23 [History Last Taken Unknown] lamotrigine 200 mg tablet See Rx Instructions PO .COMPLEX seizures 05/31/23 [History Last Taken Unknown] acetaminophen 325 mg tablet 1,000 mg (3.0769 x 325 mg) PO Q8H PRN PRN Fever, pain 1-10/10 #0 tabs 06/05/23 [Rx Last Taken Unknown] alprazolam 0.5 mg tablet 0.5 mg PO BID PRN ANXIETY 3 days #6 tabs 06/05/23 [Rx Last Taken Unknown] buprenorphine 20 mcg/hour weekly transdermal patch 1 patch transdermal TH SEVERE PAIN 1 week #1 ea 06/05/23 [Rx Last Taken Unknown] ferrous sulfate 325 mg (65 mg iron) tablet (FeroSul) 325 mg PO Q48@0800 #20 tabs 06/23/23 [Rx Last Taken Unknown] furosemide 40 mg tablet 40 mg PO BIDLX #60 tabs 06/23/23 [Rx Last Taken Unknown] potassium chloride 20 mEq tablet,extended release 20 meq PO DAILY #30 tabs 06/23/23 [Rx Last Taken Unknown] Allergy/AdvReac Type Severity Reaction Status Date / Time tramadol HCl [From Ultram] Allergy Rash Verified 07/26/23 08:17 cariprazine [From Vraylar] AdvReac Other Verified 07/26/23 08:17 codeine AdvReac Vomiting Verified 07/26/23 08:17 hydromorphone [From Dilaudid] AdvReac Nausea/Vom/ Verified 07/26/23 08:17 Diarrhea oxycodone HCl [From Percocet] AdvReac Vomiting Verified 07/26/23 08:17 quetiapine [From Seroquel] AdvReac Other Verified 07/26/23 08:17 Family History Father CHF (congestive heart failure) Cardiomyopathy Heart disease Hypertension Cardiac arrest with ventricular fibrillation Mother CVA (cerebral vascular accident) Diabetes Surgical History History of back surgery History of carpal tunnel surgery Hx of knee surgery Hx of neck surgery Presence of coronary angioplasty implant and graft (~05/17/22) Social History household members: significant other Smoking Status: Former smoker alcohol intake: never substance use type: does not use caffeine: Yes Type: carbonated beverages Number of servings: 1 ROS Review of Systems ROS Unobtainable: due to endotracheal tube Physical Exam Const Constitutional Narrative: Intubated General Appearance: ill appearing Nutritional Appearance: obese Resp Resp Narrative: ET tube in place Cardio Rate: regular rate GI soft to palpation and non-distended GI Narrative: Skin of the abdomen is mottled and diaphoretic Extremity Extremity Narrative: Lower extremities are mottled and diaphoretic Skin Skin Narrative: Necrotizing green-colored skin diffusely over mons anterior groin creases as well as perianal area but up above to the superior gluteal cleft, no active drainage, patient's bilateral lower extremities and abdomen are mottled and diaphoretic Lab / Micro Data 07/26/23 08:29 07/26/23 08:29 Labs: Laboratory Results - last 24 hr 07/26/23 08:29: WBC 0.2 L*, RBC 2.46 L, Hgb 7.9 L, Hct 23.4 L, MCV 95.1, MCH 32.1 H, MCHC 33.8, RDW Std Deviation 50.6 H, RDW Coeff of Erlinda 14.6, Plt Count 69 L, MPV 10.7, Immature Gran % (Auto) 0.000, Neut % (Auto) 33.4 L, Lymph % (Auto) 47.6 H, [place] % (Auto) 9.5, Eos % (Auto) 9.5 H, Baso % (Auto) 0.0, Absolute Neuts (auto) 0.1 L, Absolute Lymphs (auto) 0.10 L, Nucleated RBC % 0, Lactic Acid 4.1 H* Charges/Coding Visit Charges Inpatient E&M: 03301 Init Hosp L3
[2023-07-26] MEDS: 0.9% Normal Saline (500mL Bag) 500 ML 999 ML IV (09:15)
[2023-07-26 09:25] LABS: ALB/GLOB Ratio 0.5 RATIO (0.9-2.4); AST(SGOT) 45 U/L (15-37); Alanine Aminotransfer ALT/SGPT 28 U/L (13-56); Albumin, Serum 1.9 g/dL (3.2-5.0); Alkaline Phosphatase 85 U/L (45-117); Anion Gap 23 (5-15); BUN 119 mg/dL (7-18); BUN/Creat Ratio 18.4 RATIO (10-20); Calcium,Total 7.1 mg/dL (8.5-10.1); Chloride 95 mmol/L (98-107); Creatinine, Serum 6.46 mg/dL (0.55-1.02); EST Glomerular Filtration Rate 7 mL/min (>60); Est Glom Filt Rate - Afr Amer 9 mL/min (>60); Estimated Creatinine Clearance 11.12 ml/min; Globulin 4.2 g/dL (2.2-4.2); Glucose 63 mg/dL (74-106); Potassium 5.9 mmol/L (3.5-5.1); Protein, Total 6.1 g/dL (6.4-8.2); Sodium Level 128 mmol/L (136-145); Troponin-I HS 28 pg/mL (3.0-54.0)
[2023-07-26 09:30] LABS: Color, Urine Yellow (Yellow); Glucose, Dipstick Normal (Normal); Ketone-Dipstick 5 mg/dl (Negative); Leukocyte Esterase-Dipstick 25 /ul (Negative); Nitrite-Dipstick Negative (Negative); Occult Blood-Urine 10 /ul (Negative); Protein-Dipstick 30 mg/dl (Negative); Specific Gravity, Urine 1.015 (1.002-1.030); Urine Bilirubin Dipstick Negative (Negative); Urine Clarity Sl. Cloudy (Clear); Urine Urobilinogen Normal (Normal)
[2023-07-26 09:32] LABS: International Normalized Ratio 1.7; Prothrombin Time (Protime)PT. 19.4 SECONDS (11.7-14.9)
[2023-07-26 09:33] LABS: Partial Thromboplast Time 38.3 Seconds (24.1-36.2)
--- NOTE | 2023-07-26 09:33 | ED.RN ---
0843 THIS RN AND JONO RN UNDRESSING PT AFTER INTUBATION TO PLACE HARRISON CATHETER. PT WITH FOUL ODOR AND GREEN MOIST SKIN IN ADAMARIS AREA EXTENDING FROM PANNUS AROUND TO POSTERIOR BUTTOCK AREA. DR. SUMMERS NOTIFIED. DR. SUMMERS AT BEDSIDE TO OBSERVE HER SKIN. PT LEGS AND BACK ARE MOTTLED.
--- NOTE | 2023-07-26 09:38 | CPS ---
Dr. Kearns declined ABG 1 hour after intubation due to patient code status change.
[2023-07-26 09:41] LABS: Bacteria 1+ /hpf (None Seen); Red Blood Cells-Urine 0-5 SEEN /hpf (0-5); Squamous Epithelial Cells - UA 0-5 SEEN /hpf (5-10); White Blood Cells 0-5 SEEN /hpf (0-5)
--- NOTE | 2023-07-26 09:50 | ED.RN ---
PT ON MONITOR DROPS TO 27 HR, THEN ASYSTOLE. DR. SUMMERS TO ROOM DOES NOT FEEL PULSE. CHECKS CARDIAC FUNCTION WITH ULTRASOUND. 2324 TIME OF .
[2023-07-26 09:57] LABS: Platelet Estimate MOD DEC (ADEQ)
[2023-07-26 10:00] LABS: CPK Total, Creatine Kinase 513 U/L (26-192)
--- NOTE | 2023-07-26 10:28 | ED.RN ---
THIS RN AT BEDSIDE, ROUNDING ON PT FAMILY. EMOTIONAL SUPPORT OFFERED. THIS RN GIVES TISSUES TO FAMILY MEMBERS. PT BROTHERS AT BEDSIDE.
--- NOTE | 2023-07-26 10:53 | CASEMGMT ---
Social Work SW received call from ED requesting SW presence as pt has and family in pt room. SW entered pt's room. Pt's brother Mark Moran, Pt's boyfriend Rakesh Harris and Pt's niece and nephew present in pt room. Emotional support provided to pt's family along with encouragement to verbalize feelings regarding loss and supportive listening provided. Pt's family uncertain of arrangements and need to discuss options prior to making decision. Pt's brother Mark will be the contact. Contact information obtained and provided to GAMAL Ibarra RN. SHAI provided Mark with phone number of ED to call in with home choice. Chaplains arrived to provide additional support. ALEXANDER Jones
--- NOTE | 2023-07-26 11:24 | CHAPLAIN ---
Type of Pastoral Visit ___ Initial Visit ___ Follow-up Visit ___ On-call Visit ___ General Patient Visit ___ Spiritual Assessment ___ Family Conference _x__ Bereavement ___ Rapid Response ___ Code Blue ___ Other (describe below) Pastoral Care Referral From ___ Patient ___ Family _x__ Nurse ___ Physician ___ Senior Net Developer Architect ___ Divine Healer ___ Other (describe below) Sacrament/Intervention _x__ Active listening ___ Anointing ___ Shinto ___ Bereavement ___ Communion ___ Janet exploration ___ ___ Life review _x__ Prayer ___ Reconciliation ___ Sacrament of Sick _x__ Supportive presence ___ Wedding ___ Other (describe below) Pastoral Comments upon entering office discovered a missed call from ED at 9:59 a.m.; returned call and learned that patient had and family members were still present; went to ED and found the garden consultant braider setter had arrived earlier and was giving presence and support to family; SW was also on the scene; introduced self and role at hospital; family is grieving appropriately but had not been expected; brother has taken leadership of family situation and gives assurances that I know where she is and we will be okay; took time with family to give presence but volunteer braider setter led in giving verbal support and offer of additional care as desired; upon family leaving the hospital, this braider setter and volunteer led in prayers for the patient in the trauma room and then departed
[2023-07-26 12:41] LABS: Reflex Lactate? Y
--- NOTE | 2023-07-27 12:09 | ED.RN ---
PT WITH POSITIVE BLOOD CULTURE. PER DR. GALVAN REVIEW AND REQUEST CORONERS OFFICE NOTIFIED.
[2023-07-30 09:26] LABS: Pathologist Review Reviewed
== END 2023-07-26 11:00 ==
PROVIDERS: Emergency Provider Student in an Organized Health Care Education/Training Program; PCP Internal Medicine; Visit Provider Student in an Organized Health Care Education/Training Program
DX: A41.9 Sepsis, unspecified organism (principal); N17.9 Acute kidney failure, unspecified; N76.82 Fournier disease of vagina and vulva; R65.21 Severe sepsis with septic shock; F31.9 Bipolar disorder, unspecified; J96.91 Respiratory failure, unspecified with hypoxia; E11.9 Type 2 diabetes mellitus without complications; Z87.891 Personal history of nicotine dependence; Z79.51 Long term (current) use of inhaled steroids; E87.5 Hyperkalemia; Z79.82 Long term (current) use of aspirin; D64.9 Anemia, unspecified; Z82.3 Family history of stroke; I25.2 Old myocardial infarction; G47.33 Obstructive sleep apnea (adult) (pediatric); I10 Essential (primary) hypertension; E78.5 Hyperlipidemia, unspecified; I25.10 Atherosclerotic heart disease of native coronary artery without angina pectoris
CPT/HCPCS: 31500; 31720; 36415; 71045; 80053; 81001; 82550; 83605; 84484; 85025; 85610; 85730; 87040; 87070; 87077; 87086; 87088; 87149; 87186; 87205; 87631; 93005; 94002; 96365; 96366; 96367; 99252; 99284; J7030; J7040; A4216; G0463